=== PATIENT | male | born 1965 | race Caucasian/White ===

== ENCOUNTER 2019-04-09 12:23 | Emergency (ER) | payer MEDICARE, MEDICAID, SELFPAY ==
--- NOTE | ~2019-04-09 | XR_ITS ---
EXAMINATION: XR hip LT 2V w AP pelvis EXAM DATE: 04/09/2019 13:16 INDICATION: No known recent injury provided at this time. Pain of the chronic left hip pain. TECHNIQUE: Left hip frontal, crosstable lateral and 'frog-leg' projections for interpretation. Fronta l projection pelvis. There is no prior study for comparison. FINDINGS: Smooth left hip femoral head contour, no radiographic evidence of avascular necrosis. Ther e is moderate symmetric bilateral hip primary osteoarthritis. There are no acute fractures or disloca tions identified. There is no subcutaneous gas. The soft tissue is unremarkable. There are no rad iopaque foreign bodies. IMPRESSION: Moderate symmetric bilateral hip osteoarthritis. Reviewed, dictated and finalized at location A. 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
[2019-04-09 12:16] VITALS: BP 109/73; PULSE 80; RESP 17; TEMP 37.1; O2SAT 98
--- NOTE | 2019-04-09 12:26 | ECG_ITS ---
Measurements Intervals [place] Rate: 69 P: 37 [place]: 214 QRS: -49 QRSD: 124 T: 73 QT: 441 QTc: 475 Interpretive Statements SINUS RHYTHM WITH FIRST DEGREE AV BLOCK LEFT ANTERIOR FASCICULAR BLOCK ABNORMAL ECG Electronically Signed On 04-09-2019 18:48:17 COTTAGE MASTER by Nelson Nguyen D.O.
[2019-04-09 12:28] VITALS: BP 105/68; BP 110/71; BP 114/70; PULSE 70; PULSE 78
--- NOTE | 2019-04-09 12:30 | ED.SYNCOPE ---
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 He states that [facility] when his ears started to ring, then he felt dizzy, weak, and then had a syncopal episode. Per bystanders someone caught the pt and lowered him to the ground and report that the pt was LOC for roughly 15 seconds. He notes that he has chronic hip pain. He denies any HI, CP, SOB, fevers, chills, N/V/D, or ABD pain. MD complaint: loss of consciousness Duration of episode: 15 -: second(s) Prodromal symptoms: other (ears ringing, dizzy, and weak) Witnessed: Yes - by Bystander Context: other (walking) Injuries sustained associated with event: none Current symptoms: other (chronic hip pain) History: seizure disorder and previous syncopal episode Related Data Home Medications Medication Instructions Recorded Confirmed Depakote 04/04/19 Relax Pill 04/04/19 Topamax 04/04/19 clonidine (PF) 04/04/19 nortriptyline 04/04/19 Allergies Allergy/AdvReac Type Severity Reaction Status Date / Time No Known Allergies Allergy Unknown Unverified 02/24/19 18:36 phenobarbital AdvReac Unknown Other Verified 02/24/19 18:36 Review of Systems Review of Systems: All systems reviewed & are unremarkable except as noted in HPI and below Constitutional: Constitutional: Denies chills and Denies fever(s) ENT: Reports tinnitus (resolved) Cardiovascular: Cardiovascular: Denies chest pain Respiratory: Respiratory: Denies dyspnea Gastrointestinal: Gastrointestinal: Denies abdominal pain, Denies diarrhea, Denies nausea and Denies vomiting Musculoskeletal: Musculoskeletal: Reports other (chronic hip pain) Neurologic: Reports dizziness (resolved), Reports syncope (resolved), Reports weakness (resolved) and Denies other (HI) [facility] Past Medical History Medical History (Updated 04/10/19 @ 00:00 by Background Daemon) Anxiety (Acute) Asthma (Acute) Bronchitis (Acute) COPD (chronic obstructive pulmonary disease) (Acute) Depression (Acute) Diabetes (Acute) Epilepsy (Acute) GERD (gastroesophageal reflux disease) (Acute) GI bleed (Acute) IBS (irritable bowel syndrome) (Acute) Seizures (Acute) Sleep apnea (Acute) Surgical History Surgical History History of open reduction and internal fixation (ORIF) procedure (Acute) Hx of craniotomy (Acute) temporal lobe resection Social History Social History Smoking status: Former smoker Gender identity (if verbalized by the patient): Male Comments PCP: Dr. Tucker. Exam Narrative: Exam Narrative: GENERAL: Well-appearing, well-nourished, and in no acute distress. HEAD: Normocephalic, atraumatic EYES: PERRLA and EOMI, conjunctiva clear without discharge EARS: TM's clear bilaterally without erythema or dullness NOSE: Nares clear, no rhinorrhea or epistaxis THROAT:Mucous membranes moist, Oropharynx normal without erythema, exudate, peritonsillar swelling or fluctuance NECK: Supple, without lymphadenopathy or mass RESPIRATORY: No respiratory distress, Airway patent, Respirations non-labored, Clear to auscultation without rales, rhonchi or wheeze HEART: Regular rate and rhythm. No murmur heard. Normal peripheral pulses. ABDOMEN: Soft, nontender, nondistended, normal active bowel sounds. No masses. No rebound or guarding, No organomegaly. EXTREMITIES: No edema, normal strength with full range of motion. SKIN: Warm, dry, normal color without rash NEURO: Alert and oriented x3. CN 2-12 grossly intact. No focal deficits. PSYCH: Normal mood and affect. Course Reevaluation(s) Reevaluation #1: Patient has been resting comfortably without complain
[2019-04-09] MEDS: ONDANSETRON INJ 4 MG/2 ML VIAL IV PUSH (12:48)
[2019-04-09] MEDS: MECLIZINE HCL 25 MG TABLET PO (12:48)
[2019-04-09 12:49] LABS: Basophils Percent Auto 0.5 % (0.2-1.2); Eosinophils Absolute Auto 0.3 K/mm3 (0-0.3); Eosinophils Percent Auto 3.5 % (0-4.4); Hematocrit 51.3 % (42.0-52.0); Immature Granulocyte Absolute 0.05 K/mm3 (0.00-0.031); Immature Granulocyte Percent A 0.7 % (0-0.5); Lymphocytes Absolute Auto 3.13 K/mm3 (0.9-3.2); Mean Corpuscular Hemoglobin 30.3 pg (26-34); Mean Corpuscular Volume 94.8 fl (80-100); Mean Platelet Volume 9.6 fl (7.4-10.4); Monocytes Absolute Auto 0.5 K/mm3 (0.1-0.6); Monocytes Percent Auto 5.9 % (2.6-8.5); Neutrophils Absolute Auto 3.7 K/mm3 (1.3-6.7); Neutrophils Percent Auto 48.4 % (45.5-73.1); Platelet Count Result 154 k/mm3 (150-375); Red Blood Count 5.41 M/mm3 (4.6-6.20); Red Cell Distribution Width 11.9 % (11.5-14.5); White Blood Count 7.6 K/mm3 (4.5-10.0)
[2019-04-09 13:09] LABS: Hemoglobin 16.4 g/dL (14.0-18.0)
[2019-04-09 13:27] LABS: Blood Urea Nitrogen 13 mg/dL (9-20); Calcium 9.3 mg/dL (8.4-10.2); Carbon Dioxide 22 mmol/L (22-30); Chloride 104 mmol/L (98-107); Estimated CRCL calculation 108 ml/min; Estimated Glomerular Filt Rate > 60; Glucose 135 mg/dL (75-110); Potassium 3.8 mmol/L (3.4-5.0); Sodium 138 mmol/L (137-145)
[2019-04-09 13:43] LABS: Magnesium 2.1 mg/dL (1.6-2.3)
[2019-04-09 14:12] VITALS: BP 107/64; PULSE 88; RESP 16; O2SAT 97
== END 2019-04-09 14:14 | disposition home or self-care (01) ==
PROVIDERS: Emergency Provider General Practice; PCP Psychiatry & Neurology Neurology
DX: R55 Syncope and collapse (principal); M16.0 Bilateral primary osteoarthritis of hip; J44.9 Chronic obstructive pulmonary disease, unspecified; E11.9 Type 2 diabetes mellitus without complications; G40.909 Epilepsy, unspecified, not intractable, without status epilepticus; G47.30 Sleep apnea, unspecified; Z87.891 Personal history of nicotine dependence
CPT/HCPCS: 36415; 73502; 73521; 80048; 83735; 85025; 93005; 96374; 99284; A9270; J2405

== ENCOUNTER 2019-05-02 14:10 | Outpatient (RCR) | payer MEDICAID, SELFPAY | END 2019-05-02 23:59 | disposition home or self-care (01) | LOC: ANHAUDIO 14:10 | PROVIDERS: PCP Psychiatry & Neurology Neurology; Visit Provider Psychiatry & Neurology Neurology | DX: Z46.1 Encounter for fitting and adjustment of hearing aid (principal) | CPT/HCPCS: V5160; V5261 ==

== ENCOUNTER 2019-05-02 14:30 | Outpatient (RCR) | payer MEDICARE, MEDICAID, SELFPAY | END 2019-05-02 23:59 | disposition home or self-care (01) | LOC: ANHAUDIO 14:30 | PROVIDERS: PCP Psychiatry & Neurology Neurology; Visit Provider Internal Medicine | DX: Z46.1 Encounter for fitting and adjustment of hearing aid (principal) | CPT/HCPCS: 99199 ==

== ENCOUNTER 2019-06-11 19:11 | Emergency (ER) | payer MEDICARE, MEDICAID, SELFPAY ==
--- NOTE | 2019-06-11 19:07 | ED.SYNCOPE ---
HPI - Syncope General Chief Complaint: Syncope Stated Complaint: syncope Time Seen by Provider: 06/11/19 19:08 Source: patient Mode of arrival: EMS Limitations: no limitations History of Present Illness HPI narrative: The pt is a 54 y/o male who presents to the ED with c/o a recent seizure that occurred tonight. The pt states that he was sitting eating ice cream at a restaurant when he began to become lightheaded and stopped being able to hear. He then fell to the ground and began to seize. The event was witnessed by others at the restaurant, who reported the seizure lasting 1-2 minutes. The pt did not hit his head during the fall because bystanders helped him to the ground. The pt reports syncope and fatigue, but denies lightheadedness in the ED bed. He frequently sees Dr. Tucker and has a PMHx of seizures, blunt force trauma to the head, DM, HTN, and HLD, as well as a SHx of brain surgery. The pt notes that these sx are similar to those he had a few days ago and that this has been happening every 2-3 weels for the past 2 years. The pt came to the ED today because he was in public and the people around him called EMS. complaint: seizure Onset (ago): hour(s) (occurred tonight) -: minutes(s) (1-2) Witnessed: Yes - by Bystander Context: other (while eating) Current symptoms: other (fatigue) History: seizure disorder Related Data Home Medications Medication Instructions Recorded Confirmed Depakote 04/04/19 Relax Pill 04/04/19 Topamax 04/04/19 clonidine (PF) 04/04/19 nortriptyline 04/04/19 Allergies Allergy/AdvReac Type Severity Reaction Status Date / Time phenobarbital AdvReac Unknown Other Verified 06/11/19 19:15 Review of Systems Review of Systems: All systems reviewed & are unremarkable except as noted in HPI and below Constitutional: Constitutional: Reports fatigue and Denies other (lightheadedness) Neurologic: Reports syncope [facility] Past Medical History Medical History (Updated 06/11/19 @ 19:36 by Louann Ayala MD) Anxiety Arthritis Asthma Bronchitis COPD (chronic obstructive pulmonary disease) CVA (cerebral vascular accident) Depression Diabetes Epilepsy GERD (gastroesophageal reflux disease) GI bleed Head trauma Hyperlipidemia Hypertension IBS (irritable bowel syndrome) Seizures Sleep apnea Surgical History Surgical History History of open reduction and internal fixation (ORIF) procedure Hx of craniotomy temporal lobe resection Social History Social History Smoking status: Former smoker Gender identity (if verbalized by the patient): Male Exam Narrative: Exam Narrative: General appearance: Well-developed, well-nourished Skin: Normal color Head: Normocephalic, nontraumatic Eyes: Clear conjunctiva ENT: Oropharynx normal, ears normal, nose normal Neck: Supple, nontender Chest and respiratory: Airway patent, no respiratory distress, no accessory muscle use Heart: Regular rate/rhythm Abdomen: Soft, nontender, no organomegaly, quiet bowel sounds Vascular: Normal peripheral pulses, normal capillary refill. Musculoskeletal: Normal range of motion, nontender back Neurologic: Alert and oriented ?3, LIGHT COIL WINDER is normal as tested, no gross motor deficit Course Course Emergency Course: Resolved Consultations Consultation #1: Discussed case with Dr. Tucker, neurologist. Does not recommend running any tests and advises telling pt to follow up with him in office tomorrow. Date: 06/11/19 Time: 19:24 Vital Signs Vital signs: Vital Signs Temperature 36.8 C 06/11/19 19:15 Pulse Rate 73 06/11/19
[2019-06-11 19:15] VITALS: BP 124/71; PULSE 73; RESP 17; TEMP 36.8; O2SAT 98
== END 2019-06-11 19:40 | disposition home or self-care (01) ==
PROVIDERS: Emergency Provider Emergency Medicine; PCP Psychiatry & Neurology Neurology
DX: G40.909 Epilepsy, unspecified, not intractable, without status epilepticus (principal); F41.9 Anxiety disorder, unspecified; M19.90 Unspecified osteoarthritis, unspecified site; J44.9 Chronic obstructive pulmonary disease, unspecified; F32.9 Major depressive disorder, single episode, unspecified; K21.9 Gastro-esophageal reflux disease without esophagitis; E78.5 Hyperlipidemia, unspecified; I10 Essential (primary) hypertension; G47.30 Sleep apnea, unspecified; K58.9 Irritable bowel syndrome, unspecified; Z87.891 Personal history of nicotine dependence; Z87.820 Personal history of traumatic brain injury
CPT/HCPCS: 99281

== ENCOUNTER 2019-07-15 20:14 | Emergency (ER) | payer MEDICARE, MEDICAID, SELFPAY ==
[2019-07-15 20:17] VITALS: BP 126/67; PULSE 78; RESP 19; TEMP 36.8; O2SAT 100
--- NOTE | 2019-07-15 20:18 | ED.SYNCOPE ---
HPI - Syncope General Chief Complaint: Syncope Stated Complaint: SYNCOPAL Time Seen by Provider: 07/15/19 20:17 Source: patient and RN notes reviewed Mode of arrival: EMS Limitations: no limitations History of Present Illness HPI narrative: Pt is a 54 y/o male who presents to the ED, via EMS from [facility], with c/o a syncopal episode that occurred while sitting at [facility] about to eat dinner. Pt states that he heard a roaring and ringing sound in his ears before the syncopal episode occurred. Pt notes that he did not want to come to the ED at first, but then he began to feel lightheaded and then wanted to come to the ED for further evaluation. Pt denies having a hx of seizures. He states that Dr. Tucker took the pt off of his sz medication after his last EEG showing negative results. He states that Dr. Tucker believes he is having syncopal episodes d/t stress. Pt denies any recent medication changes. He notes that he currently feels fine. Pt denies CP, SOB, and dizziness. complaint: loss of consciousness Onset (ago): minute(s) Prodromal symptoms: other (roaring and ringing in his ears) Witnessed: Yes - by Other Context: other (at restaurant) Injuries sustained associated with event: none Current symptoms: lightheaded (resolved) History: previous syncopal episode Related Data Home Medications Medication Instructions Recorded Confirmed Depakote 04/04/19 Relax Pill 04/04/19 Topamax 04/04/19 clonidine (PF) 04/04/19 nortriptyline 04/04/19 Allergies Allergy/AdvReac Type Severity Reaction Status Date / Time phenobarbital AdvReac Unknown Other Verified 06/11/19 19:15 Review of Systems Review of Systems: All systems reviewed & are unremarkable except as noted in HPI and below Cardiovascular: Cardiovascular: Denies chest pain and Reports lightheadedness (resolved) Respiratory: Respiratory: Denies dyspnea Neurologic: Denies dizziness and Reports syncope [facility] Past Medical History Medical History (Updated 07/16/19 @ 00:00 by Background Daemon) Anxiety Arthritis Asthma Bronchitis COPD (chronic obstructive pulmonary disease) CVA (cerebral vascular accident) Depression Diabetes Epilepsy GERD (gastroesophageal reflux disease) GI bleed Head trauma Hyperlipidemia Hypertension IBS (irritable bowel syndrome) Sleep apnea Surgical History Surgical History History of open reduction and internal fixation (ORIF) procedure Hx of craniotomy temporal lobe resection Social History Social History Smoking status: Former smoker Gender identity (if verbalized by the patient): Male Exam Narrative: Exam Narrative: GENERAL: Well-appearing, well-nourished, and in no acute distress. HEAD: Normocephalic, atraumatic EYES: PERRLA and EOMI, conjunctiva clear without discharge EARS: TM's clear bilaterally without erythema or dullness NOSE: Nares clear, no rhinorrhea or epistaxis THROAT:Mucous membranes moist, Oropharynx normal without erythema, exudate, peritonsillar swelling or fluctuance NECK: Supple, without lymphadenopathy or mass RESPIRATORY: No respiratory distress, Airway patent, Respirations non-labored, Clear to auscultation without rales, rhonchi or wheeze HEART: Regular rate and rhythm. No murmur heard. Normal peripheral pulses. ABDOMEN: Soft, nontender, nondistended, normal active bowel sounds. No masses. No rebound or guarding, No organomegaly. EXTREMITIES: No edema, normal strength with full range of motion. SKIN: Warm, dry, normal color without rash NEURO: Alert and oriented x3. CN 2-12 grossly intact. No focal deficits. PSYCH: Normal mood and affect. Course Course Emergency Course: Patient has no complaints while in ER. He has history of these episodes and he is followed by specialist. He is stable for continued outpatient evaluation. Vital Signs Vital signs
--- NOTE | 2019-07-15 20:39 | ECG_ITS ---
Measurements Intervals [place] Rate: 72 P: 47 [place]: 219 QRS: -52 QRSD: 121 T: 19 QT: 405 QTc: 445 Interpretive Statements SINUS RHYTHM WITH FIRST DEGREE AV BLOCK LEFT ANTERIOR FASCICULAR BLOCK ABNORMAL ECG Electronically Signed On 07-16-2019 6:55:20 SEED ANALYST by Nelson Nguyen D.O.
[2019-07-15 20:41] VITALS: BP 112/65; BP 126/65; PULSE 72; PULSE 75
[2019-07-15 20:42] VITALS: BP 100/64; PULSE 76
[2019-07-15 20:50] VITALS: PULSE 73
[2019-07-15 21:04] LABS: Basophils Absolute Auto 0.1 K/mm3 (0.0-0.1); Basophils Percent Auto 0.6 % (0.2-1.2); Eosinophils Absolute Auto 0.3 K/mm3 (0-0.3); Eosinophils Percent Auto 4.1 % (0-4.4); Hematocrit 41.7 % (42.0-52.0); Hemoglobin 13.4 g/dL (14.0-18.0); Immature Granulocyte Absolute 0.08 K/mm3 (0.00-0.031); Lymphocytes Absolute Auto 3.99 K/mm3 (0.9-3.2); Lymphocytes Percent Auto 50.6 % (18.3-44.2); Mean Corpuscular HGB Conc 32.1 g/dl (32-36); Mean Corpuscular Hemoglobin 30.8 pg (26-34); Mean Corpuscular Volume 95.9 fl (80-100); Mean Platelet Volume 9.6 fl (7.4-10.4); Monocytes Absolute Auto 0.6 K/mm3 (0.1-0.6); Neutrophils Absolute Auto 2.8 K/mm3 (1.3-6.7); Neutrophils Percent Auto 35.7 % (45.5-73.1); Platelet Count Result 184 k/mm3 (150-375); Red Blood Count 4.35 M/mm3 (4.6-6.20); Red Cell Distribution Width 15.1 % (11.5-14.5); White Blood Count 7.9 K/mm3 (4.5-10.0)
[2019-07-15 21:15] VITALS: BP 110/69; PULSE 73; RESP 12; O2SAT 100
[2019-07-15 21:18] LABS: Blood Urea Nitrogen 18 mg/dL (9-20); Carbon Dioxide 22 mmol/L (22-30); Chloride 108 mmol/L (98-107); Estimated CRCL calculation 88 ml/min; Estimated Glomerular Filt Rate > 60; Glucose 104 mg/dL (75-110); Potassium 3.7 mmol/L (3.4-5.0); Sodium 140 mmol/L (137-145)
== END 2019-07-15 21:35 | disposition home or self-care (01) ==
PROVIDERS: Emergency Provider General Practice; PCP Psychiatry & Neurology Neurology
DX: R55 Syncope and collapse (principal); M19.90 Unspecified osteoarthritis, unspecified site; J44.9 Chronic obstructive pulmonary disease, unspecified; F32.9 Major depressive disorder, single episode, unspecified; F41.9 Anxiety disorder, unspecified; Z86.73 Personal history of transient ischemic attack (TIA), and cerebral infarction without residual deficits; E11.9 Type 2 diabetes mellitus without complications; G40.909 Epilepsy, unspecified, not intractable, without status epilepticus; K21.9 Gastro-esophageal reflux disease without esophagitis; E78.5 Hyperlipidemia, unspecified; I10 Essential (primary) hypertension; K58.9 Irritable bowel syndrome, unspecified; G47.30 Sleep apnea, unspecified; Z87.891 Personal history of nicotine dependence; I44.0 Atrioventricular block, first degree; I44.4 Left anterior fascicular block
CPT/HCPCS: 36415; 80048; 85025; 93005; 99284

== ENCOUNTER 2019-07-22 18:14 | Emergency (ER) | payer MEDICARE, MEDICAID, SELFPAY ==
[2019-07-22 18:46] VITALS: BP 118/68; PULSE 82; RESP 16; TEMP 36.1; O2SAT 100
--- NOTE | 2019-07-22 18:51 | ECG_ITS ---
Measurements Intervals [place] Rate: 73 P: 50 [place]: 223 QRS: -51 QRSD: 126 T: 34 QT: 403 QTc: 446 Interpretive Statements SINUS RHYTHM WITH FIRST DEGREE AV BLOCK LEFT ANTERIOR FASCICULAR BLOCK ABNORMAL ECG Electronically Signed On 07-23-2019 6:59:26 CDT by Nelson Nguyen D.O.
[2019-07-22 19:07] LABS: Basophils Percent Auto 0.4 % (0.2-1.2); Eosinophils Absolute Auto 0.3 K/mm3 (0-0.3); Eosinophils Percent Auto 3.9 % (0-4.4); Hematocrit 41.4 % (42.0-52.0); Immature Granulocyte Absolute 0.06 K/mm3 (0.00-0.031); Immature Granulocyte Percent A 0.8 % (0-0.5); Lymphocytes Absolute Auto 3.22 K/mm3 (0.9-3.2); Mean Corpuscular HGB Conc 31.4 g/dl (32-36); Mean Corpuscular Hemoglobin 30.6 pg (26-34); Mean Corpuscular Volume 97.4 fl (80-100); Mean Platelet Volume 9.4 fl (7.4-10.4); Monocytes Absolute Auto 0.6 K/mm3 (0.1-0.6); Monocytes Percent Auto 7.4 % (2.6-8.5); Neutrophils Absolute Auto 3.7 K/mm3 (1.3-6.7); Neutrophils Percent Auto 46.5 % (45.5-73.1); Platelet Count Result 181 k/mm3 (150-375); Red Blood Count 4.25 M/mm3 (4.6-6.20); Red Cell Distribution Width 15.1 % (11.5-14.5); White Blood Count 7.9 K/mm3 (4.5-10.0)
[2019-07-22 19:18] LABS: Blood Urea Nitrogen 13 mg/dL (9-20); Calcium 8.9 mg/dL (8.4-10.2); Carbon Dioxide 24 mmol/L (22-30); Chloride 104 mmol/L (98-107); Estimated CRCL calculation 89 ml/min; Estimated Glomerular Filt Rate > 60; Glucose 108 mg/dL (75-110); Potassium 4.2 mmol/L (3.4-5.0); Sodium 138 mmol/L (137-145)
[2019-07-22 21:28] VITALS: BP 113/76; PULSE 75; RESP 18; O2SAT 99
[2019-07-22 21:31] VITALS: BP 111/67; PULSE 76
--- NOTE | 2019-07-22 21:32 | ED.SYNCOPE ---
HPI - Syncope General Chief Complaint: Syncope Stated Complaint: SYNCOPE Time Seen by Provider: 07/22/19 20:58 Source: patient, family and RN notes reviewed Mode of arrival: EMS Limitations: no limitations History of Present Illness HPI narrative: Pt is a 54 y/o male with a Hx of seizures, who presents to the ED with c/o syncopal episode happening this evening. According to old records, the pt has been evaluated in the [place] ED on a multitude of occasions for similar episodes, with most occurring while the pt is eating at a restaurant. He notes that he has been evaluated by multiple neurologists in the past for these episodes, and states that Dr. Tucker recently began tapering him off of his Depakote. Pt states that he was eating at a diner this evening when he suddenly developed a whirling sensation in ears. He notes that he then became lightheaded and passed out. Pt's family states that she was able to call over several individuals to help the pt gently down to the floor. She denies the pt having any injuries during the episode. MD complaint: loss of consciousness Prodromal symptoms: lightheaded and other ( whirling sensation in ears) Context: at rest Injuries sustained associated with event: none Current symptoms: none History: previous syncopal episode Related Data Home Medications Medication Instructions Recorded Confirmed Depakote 04/04/19 Relax Pill 04/04/19 Topamax 04/04/19 clonidine (PF) 04/04/19 nortriptyline 04/04/19 Allergies Allergy/AdvReac Type Severity Reaction Status Date / Time phenobarbital AdvReac Unknown Other Verified 06/11/19 19:15 Review of Systems Review of Systems: All systems reviewed & are unremarkable except as noted in HPI and below ENT: Reports other ( whirling sensation in ears) Neurologic: Reports syncope and Reports other (lightheadedness) [facility] Past Medical History Medical History Anxiety Arthritis Asthma Bronchitis COPD (chronic obstructive pulmonary disease) CVA (cerebral vascular accident) Depression Diabetes Epilepsy GERD (gastroesophageal reflux disease) GI bleed Head trauma Hyperlipidemia Hypertension IBS (irritable bowel syndrome) Sleep apnea Surgical History Surgical History History of open reduction and internal fixation (ORIF) procedure Hx of craniotomy temporal lobe resection Social History Social History Smoking status: Former smoker Gender identity (if verbalized by the patient): Male Exam Narrative: Exam Narrative: GENERAL: Well-appearing, well-nourished, and in no acute distress. HEAD: Normocephalic, atraumatic. ENT: Mucous membranes moist. CHEST: Clear to auscultation. No respiratory distress. HEART: Regular rate and rhythm. Normal peripheral pulses. ABDOMEN: Soft, nontender, nondistended EXTREMITIES: Normal range of motion. Venous stasis changes BLE. NEURO: No focal deficits. Alert and oriented x3. PSYCH: Normal mood and affect. Course Course Emergency Course: Patient was alert and oriented x3 without focal neurologic deficit. Ambulatory without issue and asymptomatic during orthostatic vital signs. Discharge home. Vital Signs Vital signs: Vital Signs Temperature 96.9 F L 07/22/19 18:46 Pulse Rate 82 07/22/19 18:46 Respiratory Rate 16 07/22/19 18:46 Blood Pressure 118/68 07/22/19 18:46 Pulse Oximetry 100 07/22/19 18:46 Temperature 96.9 F L 07/22/19 18:46 Pulse Rate 76 07/22/19 21:35 Respiratory Rate 18 07/22/19 21:28 Blood Pressure 107/71 07/22/19 21:35 Pulse Oximetry 99 07/22/19 21:28 MDM - Syncope Lab Data Result diagrams: 07/22/19 18:56 07/22/19 18:56 Labs: Lab Results 07/22/19 07/22/19 Range/Units 18:56 18:56 WBC 7.9 (4.5-10.0) K/mm3 RBC 4.25 L (4.6-6.20) M/mm3 Hgb 13.0 L (14
[2019-07-22 21:34] VITALS: BP 136/84; PULSE 79
[2019-07-22 21:35] VITALS: BP 107/71; PULSE 76
== END 2019-07-22 22:05 | disposition home or self-care (01) ==
PROVIDERS: Emergency Medicine; Emergency Provider Emergency Medicine; PCP Internal Medicine
DX: G40.909 Epilepsy, unspecified, not intractable, without status epilepticus (principal); J44.9 Chronic obstructive pulmonary disease, unspecified; Z86.73 Personal history of transient ischemic attack (TIA), and cerebral infarction without residual deficits; E11.9 Type 2 diabetes mellitus without complications; K21.9 Gastro-esophageal reflux disease without esophagitis; E78.5 Hyperlipidemia, unspecified; I10 Essential (primary) hypertension; G47.30 Sleep apnea, unspecified; F41.9 Anxiety disorder, unspecified; M19.90 Unspecified osteoarthritis, unspecified site; Z87.891 Personal history of nicotine dependence
CPT/HCPCS: 36415; 80048; 85025; 93005; 99284

== ENCOUNTER 2019-11-05 15:09 | Emergency (ER) | payer MEDICARE, MEDICAID, SELFPAY ==
[2019-11-05] VITALS (7 sets, daily range): BP systolic 107–123; BP diastolic 60–79; PULSE 70–73; RESP 20; TEMP 36.7; O2SAT 98–100
--- NOTE | 2019-11-05 15:29 | ED.SYNCOPE ---
HPI - Syncope General Chief Complaint: Syncope Stated Complaint: SYNCOPE Time Seen by Provider: 11/05/19 15:27 History of Present Illness HPI narrative: Syncopal episode today while walking. He reports that he was walking and he remembers getting light headed. Then his vision got blurry. He fell to the ground. It is unclear if he ever lost consciousness. He denies hitting his head. He has had multiple previous presentations for syncope and seizure like events. Related Data Home Medications Medication Instructions Recorded Confirmed Topamax 700 mg PO DAILY 04/04/19 divalproex [Depakote] 500 mg PO Q12H 04/04/19 11/05/19 nortriptyline 75 mg PO BID 04/04/19 albuterol sulfate 2 inh INHALATION Q4H PRN 11/05/19 11/05/19 aspirin 81 mg PO DAILY 11/05/19 11/05/19 atorvastatin 10 mg PO HS 11/05/19 11/05/19 citalopram 40 mg PO DAILY 11/05/19 11/05/19 enalapril maleate 5 mg PO DAILY 11/05/19 11/05/19 fenofibrate 160 mg PO DAILY 11/05/19 11/05/19 fluticasone propion-salmeterol 1 inh INHALATION BID 11/05/19 11/05/19 [Advair Diskus] Allergies Allergy/AdvReac Type Severity Reaction Status Date / Time phenobarbital AdvReac Unknown Other Verified 11/05/19 15:24 Review of Systems Review of Systems: All systems reviewed & are unremarkable except as noted in HPI and below Constitutional: Constitutional: Denies fever(s) ENT: Comments: tinnitus Cardiovascular: Cardiovascular: Denies chest pain Respiratory: Respiratory: Denies dyspnea Gastrointestinal: Gastrointestinal: Reports nausea Musculoskeletal: Musculoskeletal: Denies back pain Neurologic: Reports dizziness, Reports syncope, Reports numbness and Reports weakness PMF Past Medical History Medical History Anxiety Arthritis Asthma Bronchitis COPD (chronic obstructive pulmonary disease) CVA (cerebral vascular accident) Depression Diabetes Epilepsy GERD (gastroesophageal reflux disease) GI bleed Head trauma Hyperlipidemia Hypertension IBS (irritable bowel syndrome) Sleep apnea Surgical History Surgical History History of open reduction and internal fixation (ORIF) procedure Hx of craniotomy temporal lobe resection Social History Social History Smoking status: Former smoker Gender identity (if verbalized by the patient): Male Exam Const: General: no acute distress and alert Nutritional Appearance: obese Orientation/consciousness: patient oriented x3 HENMT: Head: normal to inspection Neck: Neck: normal visual inspection and no lymphadenopathy Chest: Chest palpation & inspection: no tenderness Resp: Effort & Inspection: normal respiratory effort Auscultation: clear to auscultation bilaterally, no rales, no rhonchi and no wheezes Cardio: Jugular venous distension: no JVD Rate: regular rate Rhythm: regular rhythm Heart sounds: no murmurs GI: Inspection: non-distended GI Palp: Yes Soft to palpation and No Tenderness to palpation present (GI) Skin: General skin exam: normal color Other: minor abrasion to right knee Neuro: General: patient oriented x3 and moves all extremities Speech: normal speech Extrem: General: no edema Psych: Appearance: well kempt Affect: normal affect Course Vital Signs Vital signs: Vital Signs Temperature 36.7 C 11/05/19 15:11 Pulse Rate 73 11/05/19 15:11 Respiratory Rate 20 11/05/19 15:11 Blood Pressure 115/66 11/05/19 15:11 Pulse Oximetry 100 11/05/19 15:11 Temperature 36.7 C 11/05/19 15:11 Pulse Rate 70 11/05/19 17:41 Respiratory Rate 20 11/05/19 16:41 Blood Pressure 109/61 11/05/19 17:41 Pulse Oximetry 98 11/05/19 16:41 MDM - Syncope Differential Diagnosis Differential diagnosis: Likely syncope due to orthostatic hypotension and dehydration Medical Records Attestation: I reviewed the pa
--- NOTE | 2019-11-05 15:36 | ECG_ITS ---
Measurements Intervals [place] Rate: 73 P: 55 [place]: 215 QRS: -69 QRSD: 122 T: 49 QT: 442 QTc: 488 Interpretive Statements SINUS RHYTHM WITH FIRST DEGREE AV BLOCK INCOMPLETE RIGHT BUNDLE BRANCH BLOCK LEFT ANTERIOR FASCICULAR BLOCK BORDERLINE T WAVE ABNORMALITY- ANTERIOR LEADS ABNORMAL ECG Electronically Signed On 11-05-2019 15:58:20 CDT by Nelson Nguyen D.O.
[2019-11-05 15:45] LABS: Basophils Percent Auto 0.5 % (0.2-1.2); Eosinophils Absolute Auto 0.2 K/mm3 (0-0.3); Eosinophils Percent Auto 3.2 % (0-4.4); Hematocrit 42.7 % (42.0-52.0); Immature Granulocyte Absolute 0.11 K/mm3 (0.00-0.031); Immature Granulocyte Percent A 1.8 % (0-0.5); Lymphocytes Absolute Auto 2.91 K/mm3 (0.9-3.2); Lymphocytes Percent Auto 46.4 % (18.3-44.2); Mean Corpuscular HGB Conc 32.8 g/dl (32-36); Mean Corpuscular Hemoglobin 31.2 pg (26-34); Mean Corpuscular Volume 95.1 fl (80-100); Mean Platelet Volume 9.4 fl (7.4-10.4); Monocytes Absolute Auto 0.6 K/mm3 (0.1-0.6); Monocytes Percent Auto 9.4 % (2.6-8.5); Neutrophils Absolute Auto 2.4 K/mm3 (1.3-6.7); Neutrophils Percent Auto 38.7 % (45.5-73.1); Platelet Count Result 185 k/mm3 (150-375); Red Blood Count 4.49 M/mm3 (4.6-6.20); Red Cell Distribution Width 13.9 % (11.5-14.5); White Blood Count 6.3 K/mm3 (4.5-10.0)
[2019-11-05 15:56] LABS: Blood Urea Nitrogen 16 mg/dL (9-20); Calcium 8.9 mg/dL (8.4-10.2); Carbon Dioxide 21 mmol/L (22-30); Chloride 104 mmol/L (98-107); Estimated CRCL calculation 99 ml/min; Estimated Glomerular Filt Rate > 60; Glucose 122 mg/dL (75-110); Potassium 3.7 mmol/L (3.4-5.0); Sodium 136 mmol/L (137-145)
[2019-11-05] MEDS: SODIUM CHLORIDE 0.9% IV 1,000 ML 999 ML IV CONT (16:41)
== END 2019-11-05 18:25 | disposition home or self-care (01) ==
PROVIDERS: Emergency Provider Emergency Medicine; PCP Internal Medicine
DX: R55 Syncope and collapse (principal); F41.9 Anxiety disorder, unspecified; M19.90 Unspecified osteoarthritis, unspecified site; J44.9 Chronic obstructive pulmonary disease, unspecified; F32.9 Major depressive disorder, single episode, unspecified; E11.9 Type 2 diabetes mellitus without complications; K21.9 Gastro-esophageal reflux disease without esophagitis; E78.5 Hyperlipidemia, unspecified; I10 Essential (primary) hypertension; G47.39 Other sleep apnea
CPT/HCPCS: 36415; 80048; 85025; 93005; 96360; 99283; J7030

== ENCOUNTER 2019-11-10 10:39 | Outpatient (RCR) | payer MEDICAID, SELFPAY | END 2019-11-10 23:59 | disposition home or self-care (01) | LOC: ANHAUDIO 10:39 | PROVIDERS: PCP Internal Medicine; Visit Provider Internal Medicine | DX: Z46.1 Encounter for fitting and adjustment of hearing aid (principal) | CPT/HCPCS: 99199 ==

== ENCOUNTER 2020-01-03 23:08 | Emergency (ER) | payer MEDICARE, MEDICAID, SELFPAY ==
--- NOTE | ~2020-01-03 | XR_ITS ---
EXAMINATION: XR chest 2V DATE: 01/03/2020 23:47 INDICATION: Transient alteration of awareness, hypertension TECHNIQUE: PA and lateral views of the chest are obtained. COMPARISON: 04/04/2019 FINDINGS: The lungs are free of acute opacities. There is no pleural effusion or pneumothorax. The ca rdiomediastinal silhouette is normal. A cardiac monitoring device is implanted in the left anterior c hest wall. There is mild thoracic spondylosis. IMPRESSION: 1. No acute cardiopulmonary abnormality. Reviewed, dictated and finalized at location A.
--- NOTE | 2020-01-03 22:13 | ECG_ITS ---
Measurements Intervals [place] Rate: 76 P: 45 [place]: 216 QRS: -69 QRSD: 126 T: 9 QT: 427 QTc: 481 Interpretive Statements SINUS RHYTHM WITH FIRST DEGREE AV BLOCK INCOMPLETE RIGHT BUNDLE BRANCH BLOCK LEFT ANTERIOR FASCICULAR BLOCK BASELINE ARTIFACT- V1-V3 ABNORMAL ECG Electronically Signed On 01-12-2020 17:45:49 CDT by Nelson Nguyen D.O.
[2020-01-03 23:07] VITALS: BP 111/59; PULSE 78; RESP 17; TEMP 36.3; O2SAT 100
[2020-01-03 23:51] LABS: Basophils Percent Auto 0.5 % (0.2-1.2); Eosinophils Absolute Auto 0.2 K/mm3 (0-0.3); Eosinophils Percent Auto 3.4 % (0-4.4); Hematocrit 40.9 % (42.0-52.0); Hemoglobin 13.4 g/dL (14.0-18.0); Immature Granulocyte Absolute 0.06 K/mm3 (0.00-0.031); Immature Granulocyte Percent A 0.9 % (0-0.5); Lymphocytes Absolute Auto 2.86 K/mm3 (0.9-3.2); Lymphocytes Percent Auto 43.7 % (18.3-44.2); Mean Corpuscular HGB Conc 32.8 g/dl (32-36); Mean Corpuscular Hemoglobin 31.4 pg (26-34); Mean Corpuscular Volume 95.8 fl (80-100); Mean Platelet Volume 9.4 fl (7.4-10.4); Monocytes Absolute Auto 0.7 K/mm3 (0.1-0.6); Monocytes Percent Auto 10.7 % (2.6-8.5); Neutrophils Absolute Auto 2.7 K/mm3 (1.3-6.7); Neutrophils Percent Auto 40.8 % (45.5-73.1); Platelet Count Result 172 k/mm3 (150-375); Red Blood Count 4.27 M/mm3 (4.6-6.20); Red Cell Distribution Width 13.2 % (11.5-14.5); White Blood Count 6.6 K/mm3 (4.5-10.0)
[2020-01-04 00:16] VITALS: BP 99/67; PULSE 79; RESP 19; O2SAT 100
[2020-01-04 00:16] LABS: Anion Gap 10 mmol/L (8-16); Blood Urea Nitrogen 15 mg/dL (9-20); Calcium 8.9 mg/dL (8.4-10.2); Carbon Dioxide 21 mmol/L (22-30); Chloride 108 mmol/L (98-107); Estimated CRCL calculation 89 ml/min; Estimated Glomerular Filt Rate > 60; Glucose 105 mg/dL (75-110); Potassium 3.6 mmol/L (3.4-5.0); Sodium 139 mmol/L (137-145)
--- NOTE | 2020-01-04 00:27 | ED.GENADULT ---
HPI - General Adult General Chief complaint: Syncope Stated complaint: syncope History of Present Illness HPI narrative: Patient is a 54-year-old male who presents ER with syncope versus seizure activity. Patient was at a local [employer] and had paid when he lost consciousness. Patient has long history of this occurring while going to restaurants and ending up in the ER. Patient does have history of seizure disorder though he denies having a seizure disorder. He is seen Dr. Tucker and takes Depakote as well as Topamax and nortriptyline. Related Data Home Medications Medication Instructions Recorded Confirmed Topamax 700 mg PO DAILY 04/04/19 divalproex [Depakote] 500 mg PO Q12H 04/04/19 11/05/19 nortriptyline 75 mg PO BID 04/04/19 albuterol sulfate 2 inh INHALATION Q4H PRN 11/05/19 11/05/19 aspirin 81 mg PO DAILY 11/05/19 11/05/19 atorvastatin 10 mg PO HS 11/05/19 11/05/19 citalopram 40 mg PO DAILY 11/05/19 11/05/19 enalapril maleate 5 mg PO DAILY 11/05/19 11/05/19 fenofibrate 160 mg PO DAILY 11/05/19 11/05/19 fluticasone propion-salmeterol 1 inh INHALATION BID 11/05/19 11/05/19 [Advair Diskus] Allergies Allergy/AdvReac Type Severity Reaction Status Date / Time phenobarbital AdvReac Unknown Other Verified 11/05/19 15:24 Review of Systems Review of Systems: All systems reviewed & are unremarkable except as noted in HPI and below Constitutional: Constitutional: Denies chills, Denies fever(s) and Denies weakness ENT: Denies nasal congestion and Denies sore throat Cardiovascular: Cardiovascular: Denies chest pain and Denies rapid heart rate Respiratory: Respiratory: Denies cough and Denies dyspnea Gastrointestinal: Gastrointestinal: Denies abdominal pain, Denies diarrhea and Denies nausea Neurologic: Reports syncope, Denies headache(s), Denies focal weakness and Denies numbness PMFSH Social History Social History Smoking status: Former smoker Gender identity (if verbalized by the patient): Male Exam Narrative: Exam Narrative: GENERAL: Well-appearing, well-nourished, and in no acute distress. HEAD: Normocephalic, atraumatic. EYES: PERRL and EOMI. ENT: Mucous membranes moist. CHEST: Clear to auscultation. No respiratory distress. HEART: Regular rate and rhythm. Normal peripheral pulses. ABDOMEN: Soft, nontender, nondistended. EXTREMITIES: Normal range of motion. No edema. SKIN: Warm, dry, no rash. NEURO: No focal deficits. Alert and oriented x3. Course Course Emergency Course: Patient resting comfortably. Unremarkable lab work. Discharge home. Vital Signs Vital signs: Vital Signs Temperature 97.3 F L 01/03/20 23:07 Pulse Rate 78 01/03/20 23:07 Respiratory Rate 17 01/03/20 23:07 Blood Pressure 111/59 L 01/03/20 23:07 Pulse Oximetry 100 01/03/20 23:07 Temperature 97.3 F L 01/03/20 23:07 Pulse Rate 79 01/04/20 00:16 Respiratory Rate 19 01/04/20 00:16 Blood Pressure 99/67 L 01/04/20 00:16 Pulse Oximetry 100 01/04/20 00:16 Medical Decision Making Vital Signs Vital Signs: Vital Signs Temperature 97.3 F L 01/03/20 23:07 Pulse Rate 78 01/03/20 23:07 Respiratory Rate 17 01/03/20 23:07 Blood Pressure 111/59 L 01/03/20 23:07 Pulse Oximetry 100 01/03/20 23:07 Temperature 97.3 F L 01/03/20 23:07 Pulse Rate 79 01/04/20 00:16 Respiratory Rate 19 01/04/20 00:16 Blood Pressure 99/67 L 01/04/20 00:16 Pulse Oximetry 100 01/04/20 00:16 Lab Data Result diagrams: 01/03/20 23:43 01/03/20 23:43 Labs: Lab Results 01/03/20 01/03/20 Range/Units 23:43 23:43 WBC 6.6 (4.5-10.0) K/mm3 RBC 4.27 L (4.6-6.20) M/mm3 Hgb 13.4 L (14.0-18.0) g/dL Hct 40.9 L (42.0-52.0) % MCV 95.8 (80-100) fl MCH 31.4 (26-34) pg MCHC 32.8 (32-36) g/dl RDW 13.2 (11.5-14.5) % Plt Count 172 (150-375) k/mm3 MPV 9.4 (7.4-10.4) fl Immat
[2020-01-04 00:30] VITALS: BP 112/74; BP 116/71; PULSE 72; PULSE 73
[2020-01-04 00:32] VITALS: BP 108/69; PULSE 72
[2020-01-04 00:52] VITALS: BP 105/78; PULSE 79; RESP 19; TEMP 36.3; O2SAT 100
== END 2020-01-04 00:53 | disposition home or self-care (01) ==
PROVIDERS: Emergency Provider Emergency Medicine; PCP Internal Medicine
DX: R55 Syncope and collapse (principal); Z87.891 Personal history of nicotine dependence; G40.909 Epilepsy, unspecified, not intractable, without status epilepticus
CPT/HCPCS: 36415; 71046; 80048; 85025; 93005; 99283

== ENCOUNTER 2020-03-13 14:30 | Emergency (ER) | payer MEDICARE, MEDICAID, SELFPAY ==
[2020-03-13 14:34] VITALS: BP 111/69; PULSE 70; RESP 13; TEMP 36.7; O2SAT 99
[2020-03-13 14:42] LABS: Glucose Point of Care 101 (65-105)
--- NOTE | 2020-03-13 14:49 | ED.DIZZY ---
HPI - Dizziness General Chief Complaint: Dizziness Stated Complaint: syncopal episode Time Seen by Provider: 03/13/20 14:33 History of Present Illness HPI Narrative: 55 yo male w/ h/o syncope and seizure presents to the ED for dizziness. He was at a restaurant this afternoon and shortly after ordering he became dizzy. bystanders helped him to the ground. He did not lose consciousness. He has been here numerous times for very similar episodes, virtually always at restaurants usually after eating. Related Data Home Medications Medication Instructions Recorded Confirmed Topamax 700 mg PO DAILY 04/04/19 divalproex [Depakote] 500 mg PO Q12H 04/04/19 11/05/19 nortriptyline 75 mg PO BID 04/04/19 albuterol sulfate 2 inh INHALATION Q4H PRN 11/05/19 11/05/19 aspirin 81 mg PO DAILY 11/05/19 11/05/19 atorvastatin 10 mg PO HS 11/05/19 11/05/19 citalopram 40 mg PO DAILY 11/05/19 11/05/19 enalapril maleate 5 mg PO DAILY 11/05/19 11/05/19 fenofibrate 160 mg PO DAILY 11/05/19 11/05/19 fluticasone propion-salmeterol 1 inh INHALATION BID 11/05/19 11/05/19 [Advair Diskus] Allergies Allergy/AdvReac Type Severity Reaction Status Date / Time phenobarbital AdvReac Unknown Other Verified 03/25/20 17:03 Review of Systems Review of Systems: All systems reviewed & are unremarkable except as noted in HPI and below Constitutional: Constitutional: Denies fever(s) Cardiovascular: Cardiovascular: Denies chest pain Respiratory: Respiratory: Denies dyspnea Gastrointestinal: Gastrointestinal: Denies abdominal pain Neurologic: Reports dizziness and Denies syncope [facility] Past Medical History Medical History Anxiety Arthritis Asthma Bronchitis COPD (chronic obstructive pulmonary disease) CVA (cerebral vascular accident) Depression Diabetes Epilepsy GERD (gastroesophageal reflux disease) GI bleed Head trauma Hyperlipidemia Hypertension IBS (irritable bowel syndrome) Sleep apnea Surgical History Surgical History History of open reduction and internal fixation (ORIF) procedure Hx of craniotomy temporal lobe resection Social History Social History Smoking status: Former smoker Gender identity (if verbalized by the patient): Male Exam Const: General: no acute distress and alert Nutritional Appearance: obese Orientation/consciousness: patient oriented x3 HENMT: Head: normal to inspection Neck: Neck: normal visual inspection and no lymphadenopathy Resp: Effort & Inspection: normal respiratory effort Auscultation: clear to auscultation bilaterally, no rales, no rhonchi and no wheezes Cardio: Jugular venous distension: no JVD Rate: regular rate Rhythm: regular rhythm Heart sounds: no murmurs GI: GI Palp: Yes Soft to palpation and No Tenderness to palpation present (GI) Skin: General skin exam: normal color Neuro: General: patient oriented x3 and moves all extremities Speech: normal speech Gait exam (Neuro): Normal gait present Extrem: General: no edema Psych: Appearance: well kempt Affect: normal affect Course Vital Signs Vital signs: Vital Signs Temperature 36.7 C 03/13/20 14:34 Pulse Rate 70 03/13/20 14:34 Respiratory Rate 13 03/13/20 14:34 Blood Pressure 111/69 03/13/20 14:34 Pulse Oximetry 99 03/13/20 14:34 Temperature 36.3 C L 03/13/20 17:20 Pulse Rate 69 03/13/20 17:20 Respiratory Rate 17 03/13/20 17:20 Blood Pressure 111/68 03/13/20 17:20 Pulse Oximetry 100 03/13/20 17:20 MDM - Dizziness MDM Narrative Medical decision making narrative: near syncope Medical Records Attestation: I reviewed the patient's medical records. Lab Data Attestation: I reviewed the patient's lab results. Labs: Lab Results 03/13/20 Range/Units 14:38 POC Capillary Glucose 101 (65-105) mg/dl Di
--- NOTE | 2020-03-13 15:38 | ECG_ITS ---
Measurements Intervals [place] Rate: 72 P: 54 [place]: 220 QRS: -41 QRSD: 130 T: 29 QT: 447 QTc: 490 Interpretive Statements SINUS RHYTHM WITH FIRST DEGREE AV BLOCK LEFT AXIS DEVIATION RSR' IN V1 OR V2, CONSIDER RIGHT VENTRICULAR HYPERTROPHY OR RIGHT VCD POOR R WAVE PROGRESSION, ANTERIOR LEADS CONSIDER INFERIOR INFARCT, AGE INDETERMINATE BORDERLINE T WAVE ABNORMALITY- ANTERIOR LEADS BASELINE ARTIFACT- V3 ABNORMAL ECG Electronically Signed On 03-13-2020 18:08:33 CDT by Nelson Nguyen D.O.
[2020-03-13 16:12] VITALS: BP 111/64; PULSE 73
[2020-03-13 16:14] VITALS: BP 115/79; PULSE 76
[2020-03-13 16:15] VITALS: BP 100/68; PULSE 73
[2020-03-13 17:20] VITALS: BP 111/68; PULSE 69; RESP 17; TEMP 36.3; O2SAT 100
== END 2020-03-13 17:30 | disposition home or self-care (01) ==
PROVIDERS: Emergency Provider Emergency Medicine; PCP Internal Medicine
DX: R55 Syncope and collapse (principal); M19.90 Unspecified osteoarthritis, unspecified site; J44.9 Chronic obstructive pulmonary disease, unspecified; Z86.73 Personal history of transient ischemic attack (TIA), and cerebral infarction without residual deficits; E11.9 Type 2 diabetes mellitus without complications; G40.909 Epilepsy, unspecified, not intractable, without status epilepticus; K21.9 Gastro-esophageal reflux disease without esophagitis; E78.5 Hyperlipidemia, unspecified; I10 Essential (primary) hypertension; K58.9 Irritable bowel syndrome, unspecified; G47.30 Sleep apnea, unspecified; F41.9 Anxiety disorder, unspecified; F32.9 Major depressive disorder, single episode, unspecified; Z87.891 Personal history of nicotine dependence; Z79.82 Long term (current) use of aspirin; I44.0 Atrioventricular block, first degree; R94.31 Abnormal electrocardiogram [ECG] [EKG]
CPT/HCPCS: 82948; 93005; 99283

== ENCOUNTER 2020-03-25 16:14 | Emergency (ER) | payer MEDICARE, MEDICAID, SELFPAY ==
[2020-03-25 16:55] VITALS: PULSE 76; RESP 16; TEMP 36.2; O2SAT 100
--- NOTE | 2020-03-25 17:02 | ECG_ITS ---
Measurements Intervals [place] Rate: 76 P: 52 [place]: 226 QRS: -74 QRSD: 122 T: 31 QT: 421 QTc: 474 Interpretive Statements SINUS RHYTHM WITH FIRST DEGREE AV BLOCK LEFT ANTERIOR FASCICULAR BLOCK ABNORMAL ECG Electronically Signed On 03-26-2020 9:00:44 ELECTRICIAN APPRENTICE by Nelson Nguyen D.O.
[2020-03-25 17:17] LABS: Basophils Percent Auto 0.5 % (0.2-1.2); Eosinophils Absolute Auto 0.2 K/mm3 (0-0.3); Eosinophils Percent Auto 3.4 % (0-4.4); Hematocrit 41.2 % (42.0-52.0); Hemoglobin 13.4 g/dL (14.0-18.0); Immature Granulocyte Absolute 0.06 K/mm3 (0.00-0.031); Lymphocytes Absolute Auto 2.81 K/mm3 (0.9-3.2); Lymphocytes Percent Auto 46.1 % (18.3-44.2); Mean Corpuscular HGB Conc 32.5 g/dl (32-36); Mean Corpuscular Hemoglobin 31.4 pg (26-34); Mean Corpuscular Volume 96.5 fl (80-100); Mean Platelet Volume 9.6 fl (7.4-10.4); Monocytes Absolute Auto 0.4 K/mm3 (0.1-0.6); Monocytes Percent Auto 5.9 % (2.6-8.5); Neutrophils Absolute Auto 2.6 K/mm3 (1.3-6.7); Neutrophils Percent Auto 43.1 % (45.5-73.1); Platelet Count Result 170 k/mm3 (150-375); Red Blood Count 4.27 M/mm3 (4.6-6.20); Red Cell Distribution Width 13.3 % (11.5-14.5); White Blood Count 6.1 K/mm3 (4.5-10.0)
[2020-03-25 18:41] VITALS: BP 121/71; PULSE 71; RESP 17; O2SAT 100
--- NOTE | 2020-03-25 19:50 | ED.SYNCOPE ---
HPI - Syncope General Chief Complaint: Syncope Stated Complaint: syncopal episode Time Seen by Provider: 03/25/20 18:16 History of Present Illness HPI narrative: Patient is a 55-year-old gentleman well-known to the emergency department that presents the emergency department with chief complaint of syncope. The patient usually has syncopal episodes after he is eating in a restaurant and ends up in the emergency department. Patient states currently he feels back to normal and states that he is to follow-up with his neurologist. Patient denies chest pain denies shortness of breath patient reports symptoms are not worsened by anything or they improve by anything Related Data Home Medications Medication Instructions Recorded Confirmed Topamax 700 mg PO DAILY 04/04/19 divalproex [Depakote] 500 mg PO Q12H 04/04/19 11/05/19 nortriptyline 75 mg PO BID 04/04/19 albuterol sulfate 2 inh INHALATION Q4H PRN 11/05/19 11/05/19 aspirin 81 mg PO DAILY 11/05/19 11/05/19 atorvastatin 10 mg PO HS 11/05/19 11/05/19 citalopram 40 mg PO DAILY 11/05/19 11/05/19 enalapril maleate 5 mg PO DAILY 11/05/19 11/05/19 fenofibrate 160 mg PO DAILY 11/05/19 11/05/19 fluticasone propion-salmeterol 1 inh INHALATION BID 11/05/19 11/05/19 [Advair Diskus] Allergies Allergy/AdvReac Type Severity Reaction Status Date / Time phenobarbital AdvReac Unknown Other Verified 03/25/20 17:03 Review of Systems Review of Systems: Narrative: CONSTITUTIONAL: Denies fever, chills, or sweats. EYES: Denies visual changes, redness, or discharge. ENT: Denies rhinorrhea, congestion, sore throat, or otalgia. CARDIOVASCULAR: Denies chest pain, palpitations, or edema. RESPIRATORY: Denies cough or dyspnea. GASTROINTESTINAL: Denies abdominal pain, nausea, vomiting, or diarrhea. GENITOURINARY: Denies dysuria or hematuria. SKIN: Denies rash or itching. MUSCULOSKELETAL: Denies back pain, joint pain, or myalgia. NEUROLOGIC: Denies headache, numbness, or weakness. PSYCHIATRIC: Denies anxiety or depression. All systems reviewed & are unremarkable except as noted in HPI and below PMFSH Past Medical History Medical History (Updated 03/25/20 @ 19:52 by Ky Coleman MD) Anxiety Arthritis Asthma Bronchitis COPD (chronic obstructive pulmonary disease) CVA (cerebral vascular accident) Depression Diabetes Epilepsy GERD (gastroesophageal reflux disease) GI bleed Head trauma Hyperlipidemia Hypertension IBS (irritable bowel syndrome) Sleep apnea Surgical History Surgical History History of open reduction and internal fixation (ORIF) procedure Hx of craniotomy temporal lobe resection Social History Social History Smoking status: Former smoker Gender identity (if verbalized by the patient): Male Exam Narrative: Exam Narrative: Care of his GENERAL: Well-appearing, well-nourished, and in no acute distress. HEAD: Normocephalic, atraumatic. EYES: PERRLA and EOMI. ENT: Nares clear, no rhinorrhea or epistaxis. Mucous membranes moist. NECK: Supple. CHEST: Clear to auscultation. No respiratory distress. HEART: Regular rate and rhythm. No murmur heard. Normal peripheral pulses. ABDOMEN: Soft, nontender, nondistended, normal active bowel sounds. EXTREMITIES: Normal range of motion. No edema. SKIN: Warm, dry, no rash. NEURO: No focal deficits. Alert and oriented x3. PSYCH: Normal mood and affect. Course Vital Signs Vital signs: Vital Signs Temperature 36.2 C L 03/25/20 16:55 Pulse Rate 76 03/25/20 16:55 Respiratory Rate 16 03/25/20 16:55 Pulse Oximetry 100 03/25/20 16:55 Temperature 36.2 C L 03/25/20 16:55 Pulse Rate 71 03/25/20 18:41 Respiratory Rate 17 03/25/20 18:41 Blood Pressure 121/71 03/25/20 18:41 Pulse Oximetry 100 03/25/20 18:41 MDM - Syncope Lab Data Result diagrams: 03/25/20 17:04
[2020-03-25 20:11] VITALS: BP 135/93; PULSE 74; RESP 17; O2SAT 98
== END 2020-03-25 20:13 | disposition home or self-care (01) ==
PROVIDERS: Emergency Provider Emergency Medicine; PCP Internal Medicine
DX: R55 Syncope and collapse (principal); M19.90 Unspecified osteoarthritis, unspecified site; J44.9 Chronic obstructive pulmonary disease, unspecified; Z86.73 Personal history of transient ischemic attack (TIA), and cerebral infarction without residual deficits; E11.9 Type 2 diabetes mellitus without complications; K21.9 Gastro-esophageal reflux disease without esophagitis; E78.5 Hyperlipidemia, unspecified; I10 Essential (primary) hypertension; K58.9 Irritable bowel syndrome, unspecified; G47.30 Sleep apnea, unspecified; F32.9 Major depressive disorder, single episode, unspecified; F41.9 Anxiety disorder, unspecified; G40.909 Epilepsy, unspecified, not intractable, without status epilepticus; I44.0 Atrioventricular block, first degree; I44.4 Left anterior fascicular block
CPT/HCPCS: 36415; 85025; 93005; 99284

== ENCOUNTER 2020-04-05 13:00 | Emergency (ER) | payer MEDICARE, MEDICAID, SELFPAY ==
--- NOTE | ~2020-04-05 | XR_ITS ---
EXAMINATION: XR chest 1V portable DATE: 04/05/2020 17:26 INDICATION: Chronic obstructive pulmonary disease. Weakness. Left chest pain. TECHNIQUE: A single frontal view of the chest was obtained. COMPARISON: Chest 2 views 01/03/2020 FINDINGS: There are lucencies in the upper lungs, consistent with emphysema. There is mild atelectasi s in left lower lung zone. No pleural effusion or pneumothorax. The heart size is normal. There is an implanted electronic device overlying left chest. IMPRESSION: 1. Emphysema. 2. Mild atelectasis in left lower lung zone. Reviewed, dictated and finalized at location A. ERY DELIVERER
[2020-04-05 13:02] VITALS: BP 102/55; PULSE 73; RESP 18; TEMP 36.4; O2SAT 100
--- NOTE | 2020-04-05 13:02 | ECG_ITS ---
Measurements Intervals [place] Rate: 74 P: 60 [place]: 208 QRS: -73 QRSD: 126 T: 52 QT: 414 QTc: 460 Interpretive Statements SINUS RHYTHM WITH FIRST DEGREE AV BLOCK LEFT ANTERIOR FASCICULAR BLOCK BASELINE ARTIFACT- I, III ABNORMAL ECG Electronically Signed On 04-05-2020 13:28:16 ROVING OR YARN COLOR CHECKER by Nelson Nguyen D.O.
[2020-04-05 13:20] LABS: Basophils Absolute Auto 0.1 K/mm3 (0.0-0.1); Basophils Percent Auto 0.8 % (0.2-1.2); Eosinophils Absolute Auto 0.2 K/mm3 (0-0.3); Eosinophils Percent Auto 3.2 % (0-4.4); Hematocrit 43.2 % (42.0-52.0); Hemoglobin 13.8 g/dL (14.0-18.0); Immature Granulocyte Absolute 0.08 K/mm3 (0.00-0.031); Immature Granulocyte Percent A 1.3 % (0-0.5); Lymphocytes Absolute Auto 2.79 K/mm3 (0.9-3.2); Mean Corpuscular HGB Conc 31.9 g/dl (32-36); Mean Corpuscular Volume 97.1 fl (80-100); Mean Platelet Volume 9.4 fl (7.4-10.4); Monocytes Absolute Auto 0.5 K/mm3 (0.1-0.6); Monocytes Percent Auto 7.6 % (2.6-8.5); Neutrophils Absolute Auto 2.7 K/mm3 (1.3-6.7); Neutrophils Percent Auto 43.1 % (45.5-73.1); Platelet Count Result 165 k/mm3 (150-375); Red Blood Count 4.45 M/mm3 (4.6-6.20); Red Cell Distribution Width 13.6 % (11.5-14.5); White Blood Count 6.3 K/mm3 (4.5-10.0)
[2020-04-05 13:34] LABS: Alanine Aminotransferase 24 U/L (4-50); Albumin Level 4.3 g/dL (3.5-5.1); Alkaline Phosphatase 81 U/L (38-126); Anion Gap 10 mmol/L (8-16); Aspartate Amino Transferase 45 U/L (17-59); Bilirubin,Total 0.4 mg/dL (0.2-1.3); Blood Urea Nitrogen 22 mg/dL (9-20); Calcium 9.2 mg/dL (8.4-10.2); Carbon Dioxide 26 mmol/L (22-30); Chloride 102 mmol/L (98-107); Estimated CRCL calculation 86 ml/min; Estimated Glomerular Filt Rate > 60; Glucose 114 mg/dL (75-110); Potassium 3.9 mmol/L (3.4-5.0); Sodium 138 mmol/L (137-145)
--- NOTE | 2020-04-05 18:11 | ED.GENADULT ---
HPI - General Adult General Chief complaint: Weakness Stated complaint: Weakness, Chest Wall Pain, Chills Time Seen by Provider: 04/05/20 13:06 Source: patient Mode of arrival: ambulatory Limitations: no limitations History of Present Illness HPI narrative: Patient is a 55-year-old male who presents noting that he has had some nausea body aches cough congestion runny nose for the last several days denies sick contacts presents in no distress has not taken anything for his symptoms denies vomiting diarrhea chest pain shortness of breath has not been seen for this complaint on arrival is in the room in no distress resting comfortably Related Data Home Medications Medication Instructions Recorded Confirmed Topamax 700 mg PO DAILY 04/04/19 divalproex [Depakote] 500 mg PO Q12H 04/04/19 11/05/19 nortriptyline 75 mg PO BID 04/04/19 albuterol sulfate 2 inh INHALATION Q4H PRN 11/05/19 11/05/19 aspirin 81 mg PO DAILY 11/05/19 11/05/19 atorvastatin 10 mg PO HS 11/05/19 11/05/19 citalopram 40 mg PO DAILY 11/05/19 11/05/19 enalapril maleate 5 mg PO DAILY 11/05/19 11/05/19 fenofibrate 160 mg PO DAILY 11/05/19 11/05/19 fluticasone propion-salmeterol 1 inh INHALATION BID 11/05/19 11/05/19 [Advair Diskus] Allergies Allergy/AdvReac Type Severity Reaction Status Date / Time phenobarbital AdvReac Unknown Other Verified 03/25/20 17:03 Review of Systems Review of Systems: All systems reviewed & are unremarkable except as noted in HPI and below PMFSH Past Medical History Medical History (Updated 04/05/20 @ 18:14 by Jonathan Whalen PA-C) Anxiety Arthritis Asthma Bronchitis COPD (chronic obstructive pulmonary disease) CVA (cerebral vascular accident) Depression Diabetes Epilepsy GERD (gastroesophageal reflux disease) GI bleed Head trauma Hyperlipidemia Hypertension IBS (irritable bowel syndrome) Sleep apnea Surgical History Surgical History History of open reduction and internal fixation (ORIF) procedure Hx of craniotomy temporal lobe resection Social History Social History Smoking status: Former smoker Gender identity (if verbalized by the patient): Male Sexual Orientation (if Verbalized by the Patient): Straight or Heterosexual Exam Narrative: Exam Narrative: GENERAL: Well-appearing, well-nourished, and in no acute distress. HEAD: Normocephalic, atraumatic. EYES: PERRLA and EOMI. ENT: Nares clear, no rhinorrhea or epistaxis. Mucous membranes moist. CHEST: Clear to auscultation. No respiratory distress. No wheezes rales or rhonchi HEART: Regular rate and rhythm. No murmur heard. Normal peripheral pulses. ABDOMEN: Soft, nontender, nondistended EXTREMITIES: Normal range of motion. No edema. SKIN: Warm, dry, no rash. NEURO: No focal deficits. Alert and oriented x3. PSYCH: Normal mood and affect. Course Course Emergency Course: Patient in the room in no distress aware of case findings treatment plan diagnosis will be discharged for follow-up with primary care to obtain his COVID-19 results advised to self quarantine no high risk changes in the blood work or imaging Vital Signs Vital signs: Vital Signs Temperature 97.6 F 04/05/20 13:02 Pulse Rate 73 04/05/20 13:02 Respiratory Rate 18 04/05/20 13:02 Blood Pressure 102/55 L 04/05/20 13:02 Pulse Oximetry 100 04/05/20 13:02 Temperature 97.6 F 04/05/20 13:02 Pulse Rate 73 04/05/20 13:02 Respiratory Rate 18 04/05/20 13:02 Blood Pressure 102/55 L 04/05/20 13:02 Pulse Oximetry 100 04/05/20 13:02 Medical Decision Making MDM Narrative Medical decision making narrative: Patient not feeling well will be swabbed for COVID-19 no other high risk changes in the blood work or imaging will be discharged home afebrile nontoxic-appearing patient with stable ABCs vital signs normal Vital Signs Vital Signs: Vital Signs
[2020-04-05 19:18] VITALS: BP 127/82; PULSE 68; RESP 18; O2SAT 99
[2020-04-06 01:19] LABS: SARS-CoV-2 RNA PCR Negative
== END 2020-04-05 19:20 | disposition home or self-care (01) ==
PROVIDERS: Emergency Medicine; Emergency Medicine Emergency Medical Services; Emergency Provider Emergency Medicine; PCP Internal Medicine
DX: J06.9 Acute upper respiratory infection, unspecified (principal); Z20.828 Contact with and (suspected) exposure to other viral communicable diseases; M19.90 Unspecified osteoarthritis, unspecified site; J44.9 Chronic obstructive pulmonary disease, unspecified; Z86.73 Personal history of transient ischemic attack (TIA), and cerebral infarction without residual deficits; F41.9 Anxiety disorder, unspecified; F32.9 Major depressive disorder, single episode, unspecified; E11.9 Type 2 diabetes mellitus without complications; G40.909 Epilepsy, unspecified, not intractable, without status epilepticus; K21.9 Gastro-esophageal reflux disease without esophagitis; E78.5 Hyperlipidemia, unspecified; I10 Essential (primary) hypertension; K58.9 Irritable bowel syndrome, unspecified; G47.30 Sleep apnea, unspecified; Z87.891 Personal history of nicotine dependence; Z79.82 Long term (current) use of aspirin; I44.0 Atrioventricular block, first degree; I44.4 Left anterior fascicular block
CPT/HCPCS: 36415; 71045; 80053; 85025; 87635; 93005; 99283; C9803; U0003

== ENCOUNTER 2020-05-23 17:36 | Emergency (ER) | payer MEDICARE, MEDICAID, SELFPAY ==
--- NOTE | ~2020-05-23 | CT_ITS ---
EXAMINATION: CT brain wo con DATE: 05/23/2020 18:39 INDICATION: Seizure. TECHNIQUE: Computed tomography (CT) of the head was performed without intravenous contrast. The mA wa s adjusted according to patient size. Iterative reconstruction technique was employed. The dose-lengt h product was 681.00 mGy-cm. COMPARISON: Head CT 02/11/2019 FINDINGS: There is chronic encephalomalacia in right temporal lobe and lateral aspect of right fronta l lobe. There are changes of right-sided craniotomy. There is no intracranial hemorrhage, acute infar ction, or abnormal intracranial mass lesion. The ventricles are normal in size. The paranasal sinuses are clear. The orbits are normal. The mastoid air cells are normal. IMPRESSION: 1. 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 Reviewed, dictated and finalized at location A. UCTION ENGINEER TRACK
[2020-05-23 17:33] VITALS: BP 129/70; PULSE 72; RESP 18; TEMP 36.2; O2SAT 98
--- NOTE | 2020-05-23 17:38 | ECG_ITS ---
Measurements Intervals [place] Rate: 71 P: 50 [place]: 221 QRS: -68 QRSD: 122 T: 45 QT: 437 QTc: 477 Interpretive Statements SINUS RHYTHM WITH FIRST DEGREE AV BLOCK RIGHT BUNDLE BRANCH BLOCK LEFT ANTERIOR FASCICULAR BLOCK ABNORMAL ECG Electronically Signed On 05-24-2020 7:10:25 SYSTEMS PROGRAMMER ANALYST by Nelson Nguyen D.O.
[2020-05-23 17:39] VITALS: PULSE 72
--- NOTE | 2020-05-23 17:53 | PC.NURSE ---
pt refuses to have seizure pads around bed, aware of need. pt continues to refuse scrap charger aware
--- NOTE | 2020-05-23 18:21 | ED.SYNCOPE ---
HPI - Syncope General Chief Complaint: Seizure Stated Complaint: seizure vs. syncope, alert and oriented x4 now Time Seen by Provider: 05/23/20 18:08 Source: patient Mode of arrival: ambulatory Limitations: no limitations History of Present Illness HPI narrative: Patient is a 49-year-old male well-known to this emergency department brought in by EMS after a syncopal episode versus a seizure at a restaurant. Patient has had multiple ER visits due to the same complaint. The syncopal episode usually occurs after eating. Syncopal episode usually occurs at a restaurant after eating and before the check is given. Patient denies syncopal episodes after eating at home but only once in a [place] . Patient denies any urinary or bowel incontinence. Patient denies any speech or visual disturbance, weakness, numbness chest pain, shortness of breath, abdominal pain, nausea, vomiting, diarrhea, fever or chills. Patient states he is back to his baseline self. Related Data Home Medications Medication Instructions Recorded Confirmed Topamax 700 mg PO DAILY 04/04/19 divalproex [Depakote] 500 mg PO Q12H 04/04/19 11/05/19 nortriptyline 75 mg PO BID 04/04/19 albuterol sulfate 2 inh INHALATION Q4H PRN 11/05/19 11/05/19 aspirin 81 mg PO DAILY 11/05/19 11/05/19 atorvastatin 10 mg PO HS 11/05/19 11/05/19 citalopram 40 mg PO DAILY 11/05/19 11/05/19 enalapril maleate 5 mg PO DAILY 11/05/19 11/05/19 fenofibrate 160 mg PO DAILY 11/05/19 11/05/19 fluticasone propion-salmeterol 1 inh INHALATION BID 11/05/19 11/05/19 [Advair Diskus] Allergies Allergy/AdvReac Type Severity Reaction Status Date / Time phenobarbital AdvReac Unknown Other Verified 03/25/20 17:03 Review of Systems Review of Systems: All systems reviewed & are unremarkable except as noted in HPI and below Constitutional: Constitutional: Denies body ache(s), Denies chills, Denies excessive sweating, Denies fatigue, Denies fever(s), Denies headache(s), Denies lethargy, Denies malaise, Denies weakness and Denies weight loss Eyes: Eyes: Denies blurry vision, Denies change in vision and Denies loss of vision ENT: Denies dizziness, Denies ear discharge, Denies headache(s), Denies lip swelling, Denies epistaxis, Denies nasal congestion, Denies neck pain, Denies throat swelling and Denies tongue swelling Cardiovascular: Cardiovascular: Denies chest pain, Denies chest pain at rest, Denies chest pain with activity, Denies diaphoresis, Denies rapid heart rate, Denies edema, Denies irregular heart rhythm, Denies lightheadedness, Denies palpitations, Denies dyspnea and Denies dyspnea on exertion Respiratory: Respiratory: Denies chest congestion, Denies cough, Denies hemoptysis, Denies dyspnea and Denies dyspnea on exertion Gastrointestinal: Gastrointestinal: Denies abdominal pain, Denies melena, Denies hematochezia, Denies diarrhea, Denies nausea, Denies vomiting and Denies hematemesis Musculoskeletal: Musculoskeletal: Denies abnormal gait, Denies deformity, Denies joint swelling, Denies limited range of motion, Denies neck pain and Denies numbness Neurologic: Denies Abnormal speech present, Denies abnormal gait, Denies confusion, Denies dizziness, Denies headache(s), Denies focal weakness, Denies loss of vision, Denies numbness, Denies Other visual disturbances, Denies Sensory deficit (Neuro) and Denies weakness Psychiatric: Psychiatric: Denies confusion, Denies depression, Denies auditory hallucinations, Denies homicidal ideation and Denies suicidal ideation Endocrine: Endocrine: Denies cold intolerance, Denies excessive sweating, Denies fatigue, Denies heat intolerance and Denies palpitations Hematologic/Lymphatic: Hematologic/Lymphatic: Denies easy bleeding and Denies easy bruising Allergic/Immunologic: Allergic/Immunologic: Denies lip swelling, Denies throat swelling and Denies tongue swelling PMFSH Past Medical History Medical History (Updated 05/23/20 @ 19:38 by Danial He MD) Anxie
[2020-05-23 18:25] LABS: Basophils Percent Auto 0.4 % (0.2-1.2); Eosinophils Absolute Auto 0.2 K/mm3 (0-0.3); Eosinophils Percent Auto 3.1 % (0-4.4); Hematocrit 43.5 % (42.0-52.0); Hemoglobin 13.9 g/dL (14.0-18.0); Immature Granulocyte Absolute 0.06 K/mm3 (0.00-0.031); Immature Granulocyte Percent A 1.1 % (0-0.5); Lymphocytes Absolute Auto 2.49 K/mm3 (0.9-3.2); Mean Corpuscular Hemoglobin 30.8 pg (26-34); Mean Corpuscular Volume 96.5 fl (80-100); Mean Platelet Volume 9.1 fl (7.4-10.4); Monocytes Absolute Auto 0.4 K/mm3 (0.1-0.6); Monocytes Percent Auto 6.8 % (2.6-8.5); Neutrophils Absolute Auto 2.3 K/mm3 (1.3-6.7); Neutrophils Percent Auto 42.6 % (45.5-73.1); Platelet Count Result 179 k/mm3 (150-375); Red Blood Count 4.51 M/mm3 (4.6-6.20); Red Cell Distribution Width 13.2 % (11.5-14.5); White Blood Count 5.4 K/mm3 (4.5-10.0)
[2020-05-23 18:34] LABS: Anion Gap 8 mmol/L (8-16); Blood Urea Nitrogen 13 mg/dL (9-20); Calcium 8.5 mg/dL (8.4-10.2); Carbon Dioxide 27 mmol/L (22-30); Chloride 103 mmol/L (98-107); Estimated CRCL calculation 90 ml/min; Estimated Glomerular Filt Rate > 60; Glucose 119 mg/dL (75-110); Potassium 3.7 mmol/L (3.4-5.0); Sodium 138 mmol/L (137-145)
[2020-05-23 18:40] VITALS: BP 146/92; PULSE 70
[2020-05-23 19:17] LABS: Troponin I < 0.012 ng/mL (0.000-0.034)
[2020-05-23 20:12] VITALS: BP 130/62; PULSE 74; RESP 16; O2SAT 98
== END 2020-05-23 20:13 | disposition home or self-care (01) ==
PROVIDERS: Emergency Provider Emergency Medicine; PCP Internal Medicine
DX: R55 Syncope and collapse (principal); G40.909 Epilepsy, unspecified, not intractable, without status epilepticus; J44.9 Chronic obstructive pulmonary disease, unspecified; E11.9 Type 2 diabetes mellitus without complications; E78.5 Hyperlipidemia, unspecified; I10 Essential (primary) hypertension; K58.9 Irritable bowel syndrome, unspecified; K21.9 Gastro-esophageal reflux disease without esophagitis; G47.30 Sleep apnea, unspecified; F32.9 Major depressive disorder, single episode, unspecified; M19.90 Unspecified osteoarthritis, unspecified site; F41.9 Anxiety disorder, unspecified; Z86.73 Personal history of transient ischemic attack (TIA), and cerebral infarction without residual deficits; Z87.891 Personal history of nicotine dependence
CPT/HCPCS: 36415; 70450; 80048; 84484; 85025; 93005; 99284

== ENCOUNTER 2020-06-11 22:52 | Emergency (ER) | payer MEDICARE, MEDICAID, SELFPAY ==
[2020-06-11 22:56] VITALS: BP 110/62; PULSE 71; RESP 20; TEMP 36.7; O2SAT 99
--- NOTE | 2020-06-11 23:02 | ECG_ITS ---
Measurements Intervals [place] Rate: 68 P: 46 MD: 219 QRS: -69 QRSD: 119 T: 31 QT: 432 QTc: 462 Interpretive Statements SINUS RHYTHM WITH FIRST DEGREE AV BLOCK INCOMPLETE RIGHT BUNDLE BRANCH BLOCK LEFT ANTERIOR FASCICULAR BLOCK ABNORMAL ECG Electronically Signed On 06-12-2020 6:49:32 FOREIGN FOOD SPECIALTY COOK by Nelson Nguyen D.O.
--- NOTE | 2020-06-11 23:12 | PC.NURSE ---
assumed care of pt at this time, received report from param flores
[2020-06-11 23:30] VITALS: BP 106/62; PULSE 66; RESP 18; O2SAT 98
--- NOTE | 2020-06-11 23:30 | ED.SYNCOPE ---
HPI - Syncope General Chief Complaint: Syncope Stated Complaint: syncope Time Seen by Provider: 06/11/20 23:09 Source: patient Mode of arrival: ambulatory Limitations: no limitations History of Present Illness HPI narrative: A 55-year-old gentleman comes into the emergency department tonight after a seizure versus syncopal episode. He and his friend who is with him states that he has been having these episodes where he will go into a blank stare, becomes unresponsive and then eventually passes out. His friend state that this is a cycle that these episodes usually happen every 1 to 2 months. She states tonight he stared off into space for approximately 5 minutes would not respond or answer her. She notes that after this he usually passes out and will be unconscious anywhere from 10 to 15 minutes and then he wakes up and starts to come around. He does have a history of a traumatic brain injury and states that he has been seeing a neurologist. Related Data Home Medications Medication Instructions Recorded Confirmed Topamax 700 mg PO DAILY 04/04/19 divalproex [Depakote] 500 mg PO Q12H 04/04/19 11/05/19 nortriptyline 75 mg PO BID 04/04/19 albuterol sulfate 2 inh INHALATION Q4H PRN 11/05/19 11/05/19 aspirin 81 mg PO DAILY 11/05/19 11/05/19 atorvastatin 10 mg PO HS 11/05/19 11/05/19 citalopram 40 mg PO DAILY 11/05/19 11/05/19 enalapril maleate 5 mg PO DAILY 11/05/19 11/05/19 fenofibrate 160 mg PO DAILY 11/05/19 11/05/19 fluticasone propion-salmeterol 1 inh INHALATION BID 11/05/19 11/05/19 [Advair Diskus] Allergies Allergy/AdvReac Type Severity Reaction Status Date / Time phenobarbital AdvReac Unknown Other Verified 03/25/20 17:03 Review of Systems Review of Systems: Narrative: CONSTITUTIONAL: Denies fever, chills, or sweats. EYES: Denies visual changes, redness, or discharge. ENT: Denies rhinorrhea, congestion, sore throat, or otalgia. CARDIOVASCULAR: Denies chest pain, palpitations, or edema. RESPIRATORY: Denies cough or dyspnea. GASTROINTESTINAL: Denies abdominal pain, nausea, vomiting, or diarrhea. GENITOURINARY: Denies dysuria or hematuria. SKIN: Denies rash or itching. MUSCULOSKELETAL: Denies back pain, joint pain, or myalgia. NEUROLOGIC: Denies headache, numbness, dizziness, or weakness. PSYCHIATRIC: Denies anxiety or depression. [facility] Past Medical History Medical History (Updated 06/12/20 @ 01:47 by Issac Henderson DO) Anxiety Arthritis Asthma Bronchitis COPD (chronic obstructive pulmonary disease) CVA (cerebral vascular accident) Depression Diabetes Epilepsy GERD (gastroesophageal reflux disease) GI bleed Head trauma Hyperlipidemia Hypertension IBS (irritable bowel syndrome) Sleep apnea Surgical History Surgical History History of open reduction and internal fixation (ORIF) procedure Hx of craniotomy temporal lobe resection Social History Social History Smoking status: Former smoker Gender identity (if verbalized by the patient): Male Exam Narrative: Exam Narrative: GENERAL: Well-appearing, well-nourished, and in no acute distress. HEAD: Normocephalic, atraumatic. EYES: PERRLA and EOMI. ENT: Nares clear, no rhinorrhea or epistaxis. Mucous membranes moist. Oropharynx without tonsillar hypertrophy exudate or other lesions. Bilateral TMs pearly driver nonbulging NECK: Supple. No adenopathy or masses. No carotid bruits or JVD CHEST: Clear to auscultation. No respiratory distress. No wheezes rales or rhonchi HEART: Regular rate and rhythm. No murmur heard. Normal peripheral pulses. ABDOMEN: Soft, nontender, nondistended, normal active bowel sounds. EXTREMITIES: Normal range of motion. No edema. SKIN: Warm, dry, no rash. NEURO: No focal deficits. Alert and oriented x3. PSYCH: Normal mood and affect. Course Reevaluation(s) Reevaluation #1: Patient sitting and resting comfortably a
--- NOTE | 2020-06-11 23:49 | PC.NURSE ---
this rn attempted iv access 2x, no success. charge operator notified, she states she will try.
[2020-06-12 00:30] VITALS: BP 127/74; PULSE 70; RESP 18; O2SAT 100
[2020-06-12 00:54] LABS: Basophils Absolute Auto 0.1 K/mm3 (0.0-0.1); Basophils Percent Auto 0.6 % (0.2-1.2); Eosinophils Absolute Auto 0.2 K/mm3 (0-0.3); Eosinophils Percent Auto 2.7 % (0-4.4); Hemoglobin 13.8 g/dL (14.0-18.0); Immature Granulocyte Absolute 0.08 K/mm3 (0.00-0.031); Lymphocytes Absolute Auto 3.59 K/mm3 (0.9-3.2); Lymphocytes Percent Auto 44.2 % (18.3-44.2); Mean Corpuscular HGB Conc 32.1 g/dl (32-36); Mean Corpuscular Hemoglobin 30.7 pg (26-34); Mean Corpuscular Volume 95.6 fl (80-100); Mean Platelet Volume 9.2 fl (7.4-10.4); Monocytes Absolute Auto 0.7 K/mm3 (0.1-0.6); Monocytes Percent Auto 8.7 % (2.6-8.5); Neutrophils Absolute Auto 3.5 K/mm3 (1.3-6.7); Neutrophils Percent Auto 42.8 % (45.5-73.1); Platelet Count Result 190 k/mm3 (150-375); Red Cell Distribution Width 13.3 % (11.5-14.5); White Blood Count 8.1 K/mm3 (4.5-10.0)
[2020-06-12 01:06] LABS: Anion Gap 8 mmol/L (8-16); Blood Urea Nitrogen 16 mg/dL (9-20); Calcium 8.9 mg/dL (8.4-10.2); Carbon Dioxide 23 mmol/L (22-30); Chloride 106 mmol/L (98-107); Estimated CRCL calculation 99 ml/min; Estimated Glomerular Filt Rate > 60; Glucose 107 mg/dL (75-110); Potassium 3.7 mmol/L (3.4-5.0); Sodium 137 mmol/L (137-145)
--- NOTE | 2020-06-12 01:06 | PC.NURSE ---
pt not able to give urine sample right now, refused straight cath.
--- NOTE | 2020-06-12 01:39 | PC.NURSE ---
pt sleeping in room 10. still not able to give urine, refused straight cath. states whats taking so long? this rn explains to pt that we are waiting for his urine sample, pt states he understands. urinal at bedside, instucted to use call light when hes able to urinate.
[2020-06-12 02:10] VITALS: BP 117/89; PULSE 74; RESP 18; O2SAT 100
== END 2020-06-12 02:12 | disposition home or self-care (01) ==
PROVIDERS: Emergency Medicine; Emergency Provider Emergency Medicine; PCP Internal Medicine
DX: G40.909 Epilepsy, unspecified, not intractable, without status epilepticus (principal); J44.9 Chronic obstructive pulmonary disease, unspecified; E11.9 Type 2 diabetes mellitus without complications; E78.5 Hyperlipidemia, unspecified; I10 Essential (primary) hypertension; Z86.73 Personal history of transient ischemic attack (TIA), and cerebral infarction without residual deficits; K21.9 Gastro-esophageal reflux disease without esophagitis; M19.90 Unspecified osteoarthritis, unspecified site; F32.9 Major depressive disorder, single episode, unspecified; F41.9 Anxiety disorder, unspecified; Z87.820 Personal history of traumatic brain injury; Z79.82 Long term (current) use of aspirin; I44.0 Atrioventricular block, first degree; I45.2 Bifascicular block; K58.9 Irritable bowel syndrome, unspecified; G47.30 Sleep apnea, unspecified; Z87.891 Personal history of nicotine dependence
CPT/HCPCS: 36415; 80048; 83735; 85025; 93005; 99284

== ENCOUNTER 2020-06-20 12:36 | Emergency (ER) | payer MEDICARE, MEDICAID, SELFPAY ==
--- NOTE | ~2020-06-20 | CT_ITS ---
EXAMINATION: CT brain wo con DATE: 06/20/2020 13:01 INDICATION: Syncope. TECHNIQUE: Computed tomography (CT) of the head was performed without intravenous contrast. The mA wa s adjusted according to patient size. Iterative reconstruction technique was employed. The dose-lengt h product was 681.00 mGy-cm. COMPARISON: Head CT 05/23/2020 FINDINGS: There is chronic encephalomalacia in right temporal lobe and right frontal lobe. There is n o intracranial hemorrhage, acute infarction, or abnormal intracranial mass lesion. The ventricles are normal in size. The paranasal sinuses are clear. The mastoid air cells are normal. The orbits are no rmal. IMPRESSION: 1. 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 Reviewed, dictated and finalized at location A. ENT PRODUCER
[2020-06-20 12:35] VITALS: PULSE 73; RESP 20; TEMP 36.8
[2020-06-20 12:42] VITALS: PULSE 74; RESP 13; O2SAT 100
[2020-06-20 12:43] VITALS: BP 121/68
--- NOTE | 2020-06-20 12:43 | ECG_ITS ---
Measurements Intervals [place] Rate: 73 P: 48 OR: 224 QRS: -65 QRSD: 123 T: 26 QT: 413 QTc: 457 Interpretive Statements SINUS RHYTHM WITH FIRST DEGREE AV BLOCK LEFT ANTERIOR FASCICULAR BLOCK ABNORMAL ECG Electronically Signed On 06-20-2020 14:19:00 [employer]ORE PROTECTION SPECIALIST by Nelson Nguyen D.O.
--- NOTE | 2020-06-20 12:48 | ED.GENADULT ---
HPI - General Adult General Chief complaint: Syncope Stated complaint: syncopal episode Time Seen by Provider: 06/20/20 12:37 Source: patient and EMS History of Present Illness HPI narrative: Patient is a 55 y/o male brought in by EMS for syncope. Patient states that he was sitting there eating at a restaurant and felt dizzy. He then woke up on the floor. He states that he was told he slid out of chair and fell. However, he has no recollection of fall. He believes that the employees of the restaurant called EMS. This occurred less than 1 hour ago. He has some generalized bodyache. He has no focal weakness or numbness. Related Data Home Medications Medication Instructions Recorded Confirmed Topamax 700 mg PO DAILY 04/04/19 divalproex [Depakote] 500 mg PO Q12H 04/04/19 11/05/19 nortriptyline 75 mg PO BID 04/04/19 albuterol sulfate 2 inh INHALATION Q4H PRN 11/05/19 11/05/19 aspirin 81 mg PO DAILY 11/05/19 11/05/19 atorvastatin 10 mg PO HS 11/05/19 11/05/19 citalopram 40 mg PO DAILY 11/05/19 11/05/19 enalapril maleate 5 mg PO DAILY 11/05/19 11/05/19 fenofibrate 160 mg PO DAILY 11/05/19 11/05/19 fluticasone propion-salmeterol 1 inh INHALATION BID 11/05/19 11/05/19 [Advair Diskus] Allergies Allergy/AdvReac Type Severity Reaction Status Date / Time phenobarbital AdvReac Unknown Other Verified 06/20/20 12:42 Review of Systems Constitutional: Constitutional: Denies chills, Denies fever(s), Denies headache(s) and Denies weakness Eyes: Eyes: Denies blurry vision ENT: Denies headache(s) and Denies neck pain Cardiovascular: Cardiovascular: Denies chest pain and Denies dyspnea Respiratory: Respiratory: Denies cough and Denies dyspnea Gastrointestinal: Gastrointestinal: Denies abdominal pain, Denies diarrhea, Denies nausea and Denies vomiting Genitourinary: Genitourinary: Denies hematuria and Denies dysuria Musculoskeletal: Musculoskeletal: Denies back pain, Reports myalgias and Denies neck pain Neurologic: Reports syncope, Denies headache(s) and Denies weakness [facility] Past Medical History Medical History (Updated 06/20/20 @ 15:05 by Ana Melchor MD) Anxiety Arthritis Asthma Bronchitis COPD (chronic obstructive pulmonary disease) CVA (cerebral vascular accident) Depression Diabetes Epilepsy GERD (gastroesophageal reflux disease) GI bleed Head trauma Hyperlipidemia Hypertension IBS (irritable bowel syndrome) Sleep apnea Surgical History Surgical History History of open reduction and internal fixation (ORIF) procedure Hx of craniotomy temporal lobe resection Social History Social History Smoking status: Former smoker Gender identity (if verbalized by the patient): Male Exam Const: General: no acute distress and well developed Orientation/consciousness: oriented to person, oriented to place, oriented to time and patient oriented x3 HENMT: Head: normocephalic Ears: external ears normal General nose exam: Normal external nose present Eyes: General: appearance normal, both eyes and all related structures Conjunctivae: conjunctivae normal Neck: Neck: normal visual inspection and full ROM Chest: Chest palpation & inspection: normal inspection of the chest and no tenderness Resp: Effort & Inspection: normal respiratory effort Auscultation: clear to auscultation bilaterally Cardio: Rate: regular rate Rhythm: regular rhythm GI: GI Palp: No abdominal tenderness and Yes Soft to palpation Skin: General skin exam: normal color and turgor normal Neuro: General: oriented to person, oriented to place, oriented to time and patient oriented x3 Cognition (Neuro): normal cognition Extrem: General: normal to inspection, full ROM and no pedal edema Psych: Appearance: grossly normal Mental Status: mental status grossly normal Affect: normal affect Course Vital Signs Vital signs: Vital Sign
--- NOTE | 2020-06-20 12:51 | PC.NURSE ---
Multiple nurses attempted to start IV, unsuccessful. Herrera WARD to try.
[2020-06-20 13:48] LABS: Basophils Percent Auto 0.6 % (0.2-1.2); Eosinophils Absolute Auto 0.2 K/mm3 (0-0.3); Eosinophils Percent Auto 2.8 % (0-4.4); Hematocrit 42.8 % (42.0-52.0); Hemoglobin 13.9 g/dL (14.0-18.0); Immature Granulocyte Absolute 0.06 K/mm3 (0.00-0.031); Immature Granulocyte Percent A 0.9 % (0-0.5); Lymphocytes Absolute Auto 2.77 K/mm3 (0.9-3.2); Lymphocytes Percent Auto 40.9 % (18.3-44.2); Mean Corpuscular HGB Conc 32.5 g/dl (32-36); Mean Corpuscular Hemoglobin 31.2 pg (26-34); Mean Platelet Volume 9.1 fl (7.4-10.4); Monocytes Absolute Auto 0.6 K/mm3 (0.1-0.6); Monocytes Percent Auto 9.3 % (2.6-8.5); Neutrophils Absolute Auto 3.1 K/mm3 (1.3-6.7); Neutrophils Percent Auto 45.5 % (45.5-73.1); Platelet Count Result 169 k/mm3 (150-375); Red Blood Count 4.46 M/mm3 (4.6-6.20); Red Cell Distribution Width 13.3 % (11.5-14.5); White Blood Count 6.8 K/mm3 (4.5-10.0)
[2020-06-20 14:12] LABS: Alanine Aminotransferase 22 U/L (4-50); Albumin Level 4.1 g/dL (3.5-5.1); Alkaline Phosphatase 73 U/L (38-126); Anion Gap 10 mmol/L (8-16); Aspartate Amino Transferase 49 U/L (17-59); Bilirubin,Total 0.4 mg/dL (0.2-1.3); Blood Urea Nitrogen 17 mg/dL (9-20); Carbon Dioxide 24 mmol/L (22-30); Chloride 105 mmol/L (98-107); Estimated CRCL calculation 88 ml/min; Estimated Glomerular Filt Rate > 60; Glucose 82 mg/dL (75-110); Sodium 139 mmol/L (137-145)
[2020-06-20 14:19] LABS: Add Urine Microscopic? YES; Appearance Urine Clear (Clear); Bilirubin Urine Negative (Negative); Blood Urine Negative (Negative); Color Urine Yellow (Yellow); Glucose Urine UA 3+ mg/dL (Negative); Ketones Urine Negative (Negative); Leukocyte Esterase Ur Negative LEU/UL (Negative); Mucus Urine Rare /lpf; Nitrate Urine Negative (Negative); Protein Urine Negative (Negative); Specific Grav Ur 1.026 (1.001-1.035)
[2020-06-20 14:42] VITALS: BP 120/78; PULSE 70; O2SAT 100
== END 2020-06-20 15:13 | disposition home or self-care (01) ==
PROVIDERS: Emergency Provider Emergency Medicine; PCP Internal Medicine
DX: R55 Syncope and collapse (principal); J44.9 Chronic obstructive pulmonary disease, unspecified; E11.9 Type 2 diabetes mellitus without complications; G40.909 Epilepsy, unspecified, not intractable, without status epilepticus; K21.9 Gastro-esophageal reflux disease without esophagitis; E78.5 Hyperlipidemia, unspecified; I10 Essential (primary) hypertension; K58.9 Irritable bowel syndrome, unspecified; G47.30 Sleep apnea, unspecified; M19.90 Unspecified osteoarthritis, unspecified site; Z86.73 Personal history of transient ischemic attack (TIA), and cerebral infarction without residual deficits; Z87.891 Personal history of nicotine dependence; I44.0 Atrioventricular block, first degree; I44.4 Left anterior fascicular block; Z79.82 Long term (current) use of aspirin
CPT/HCPCS: 36415; 70450; 80053; 81001; 85025; 93005; 99284

== ENCOUNTER 2020-07-09 13:12 | Emergency (ER) | payer MEDICARE, MEDICAID, SELFPAY ==
[2020-07-09 14:11] VITALS: BP 109/56; PULSE 70; RESP 16; TEMP 35.6; O2SAT 99
--- NOTE | 2020-07-09 14:14 | ECG_ITS ---
Measurements Intervals [place] Rate: 65 P: 60 AL: 232 QRS: -65 QRSD: 126 T: 31 QT: 447 QTc: 467 Interpretive Statements SINUS RHYTHM WITH FIRST DEGREE AV BLOCK LEFT ANTERIOR FASCICULAR BLOCK INFERIOR INFARCT, AGE INDETERMINATE ABNORMAL ECG Electronically Signed On 07-09-2020 21:11:11 [employer] by Nelson Nguyen D.O.
[2020-07-09 15:00] VITALS: BP 113/52; PULSE 74; RESP 16; O2SAT 97
[2020-07-09 15:12] VITALS: BP 113/54; PULSE 72; RESP 15; O2SAT 95
[2020-07-09 16:00] VITALS: BP 99/62; PULSE 72; RESP 18; O2SAT 98
[2020-07-09 16:20] LABS: Basophils Percent Auto 0.6 % (0.2-1.2); Eosinophils Absolute Auto 0.2 K/mm3 (0-0.3); Eosinophils Percent Auto 3.2 % (0-4.4); Hematocrit 44.1 % (42.0-52.0); Hemoglobin 14.2 g/dL (14.0-18.0); Immature Granulocyte Percent A 1.5 % (0-0.5); Lymphocytes Absolute Auto 3.29 K/mm3 (0.9-3.2); Lymphocytes Percent Auto 48.2 % (18.3-44.2); Mean Corpuscular HGB Conc 32.2 g/dl (32-36); Mean Corpuscular Hemoglobin 31.2 pg (26-34); Mean Corpuscular Volume 96.9 fl (80-100); Mean Platelet Volume 9.2 fl (7.4-10.4); Monocytes Absolute Auto 0.6 K/mm3 (0.1-0.6); Monocytes Percent Auto 8.6 % (2.6-8.5); Neutrophils Absolute Auto 2.6 K/mm3 (1.3-6.7); Neutrophils Percent Auto 37.9 % (45.5-73.1); Platelet Count Result 165 k/mm3 (150-375); Red Blood Count 4.55 M/mm3 (4.6-6.20); White Blood Count 6.8 K/mm3 (4.5-10.0)
[2020-07-09 16:32] LABS: Alanine Aminotransferase 21 U/L (4-50); Albumin Level 4.1 g/dL (3.5-5.1); Alkaline Phosphatase 74 U/L (38-126); Anion Gap 8 mmol/L (8-16); Aspartate Amino Transferase 42 U/L (17-59); Bilirubin,Total 0.4 mg/dL (0.2-1.3); Blood Urea Nitrogen 17 mg/dL (9-20); Calcium 8.8 mg/dL (8.4-10.2); Carbon Dioxide 26 mmol/L (22-30); Chloride 107 mmol/L (98-107); Estimated CRCL calculation 89 ml/min; Estimated Glomerular Filt Rate > 60; Glucose 111 mg/dL (75-110); Potassium 4.1 mmol/L (3.4-5.0); Sodium 141 mmol/L (137-145)
[2020-07-09] MEDS: SODIUM CHLORIDE 0.9% IV 1,000 ML 999 ML IV CONT (16:35)
[2020-07-09 17:00] VITALS: BP 109/79; PULSE 78; RESP 18; O2SAT 97
--- NOTE | 2020-07-09 17:14 | ED.HA ---
HPI - Headache General Chief Complaint: Headache Stated Complaint: weakness Time Seen by Provider: 07/09/20 15:13 History of Present Illness HPI Narrative: Patient is a 55-year-old male who presents ER after having a syncopal event versus seizure. He was attempting to get money from an [employer]. This is a well-known occurrence for this patient has history of traumatic brain injury and seizures. He sees Dr. Sims and also Dr. Jose is his neurologist. Has Depakote prescribed. Patient denies having seizures on EEGs despite documentation of seizure disorder. Patient reports she started with having a rushing sound in his ear and then he will get lightheaded and then lose consciousness. Reports mild throbbing headache at this time which is typical for him to have after this episode. Related Data Home Medications Medication Instructions Recorded Confirmed Topamax 700 mg PO DAILY 04/04/19 divalproex [Depakote] 500 mg PO Q12H 04/04/19 11/05/19 nortriptyline 75 mg PO BID 04/04/19 albuterol sulfate 2 inh INHALATION Q4H PRN 11/05/19 11/05/19 aspirin 81 mg PO DAILY 11/05/19 11/05/19 atorvastatin 10 mg PO HS 11/05/19 11/05/19 citalopram 40 mg PO DAILY 11/05/19 11/05/19 enalapril maleate 5 mg PO DAILY 11/05/19 11/05/19 fenofibrate 160 mg PO DAILY 11/05/19 11/05/19 fluticasone propion-salmeterol 1 inh INHALATION BID 11/05/19 11/05/19 [Advair Diskus] Allergies Allergy/AdvReac Type Severity Reaction Status Date / Time phenobarbital AdvReac Unknown Other Verified 07/09/20 15:17 Review of Systems Review of Systems: All systems reviewed & are unremarkable except as noted in HPI and below Constitutional: Constitutional: Denies chills, Denies fever(s) and Denies weakness ENT: Denies nasal congestion and Denies sore throat Gastrointestinal: Gastrointestinal: Denies abdominal pain, Denies nausea and Denies vomiting Neurologic: Reports headache(s), Denies focal weakness and Denies numbness Comments: Loss of consciousness PMFSH Past Medical History Medical History (Updated 07/09/20 @ 18:05 by Fei Acevedo MD) Anxiety Arthritis Asthma Bronchitis COPD (chronic obstructive pulmonary disease) CVA (cerebral vascular accident) Depression Diabetes Epilepsy GERD (gastroesophageal reflux disease) GI bleed Head trauma Hyperlipidemia Hypertension IBS (irritable bowel syndrome) Sleep apnea Surgical History Surgical History History of open reduction and internal fixation (ORIF) procedure Hx of craniotomy temporal lobe resection Social History Social History Smoking status: Former smoker Gender identity (if verbalized by the patient): Male Exam Narrative: Exam Narrative: GENERAL: Well-appearing, well-nourished, and in no acute distress. HEAD: Normocephalic, atraumatic. EYES: PERRL and EOMI. CHEST: Clear to auscultation. No respiratory distress. HEART: Regular rate and rhythm. Normal peripheral pulses. ABDOMEN: Soft, nontender, nondistended. EXTREMITIES: Normal range of motion. No edema. SKIN: Warm, dry, no rash. NEURO: Clear speech, no facial droop. Alert and oriented x3. Course Course Emergency Course: Unremarkable evaluation. Patient eating drinking without issue. Hydrated. Discharge home. Vital Signs Vital signs: Vital Signs Temperature 96.0 F L 07/09/20 14:11 Pulse Rate 70 07/09/20 14:11 Respiratory Rate 16 07/09/20 14:11 Blood Pressure 109/56 L 07/09/20 14:11 Pulse Oximetry 99 07/09/20 14:11 Temperature 96.0 F L 07/09/20 14:11 Pulse Rate 78 07/09/20 17:00 Respiratory Rate 18 07/09/20 17:00 Blood Pressure 109/79 07/09/20 17:00 Pulse Oximetry 97 07/09/20 17:00 MDM - Headache Lab Data Result diagrams: 07/09/20 16:14 07/09/20 16:14 Labs: Lab Results 07/09/20 07/09/20 Range/Units 16:14 16:14 WBC 6.8 (4.5-10.0) K/mm3
[2020-07-09 18:53] VITALS: BP 114/74; PULSE 68; RESP 16; O2SAT 97
== END 2020-07-09 18:55 | disposition home or self-care (01) ==
PROVIDERS: Emergency Medicine; Emergency Provider Emergency Medicine; PCP Internal Medicine
DX: G40.909 Epilepsy, unspecified, not intractable, without status epilepticus (principal); J44.9 Chronic obstructive pulmonary disease, unspecified; E11.9 Type 2 diabetes mellitus without complications; K21.9 Gastro-esophageal reflux disease without esophagitis; E78.5 Hyperlipidemia, unspecified; I10 Essential (primary) hypertension; K58.9 Irritable bowel syndrome, unspecified; G47.30 Sleep apnea, unspecified; F32.9 Major depressive disorder, single episode, unspecified; F41.9 Anxiety disorder, unspecified; Z86.73 Personal history of transient ischemic attack (TIA), and cerebral infarction without residual deficits; Z87.820 Personal history of traumatic brain injury; Z87.891 Personal history of nicotine dependence; I44.0 Atrioventricular block, first degree; R94.31 Abnormal electrocardiogram [ECG] [EKG]; I44.4 Left anterior fascicular block
CPT/HCPCS: 36415; 80053; 85025; 93005; 96360; 99284; J7030

== ENCOUNTER 2020-07-15 15:10 | Emergency (ER) | payer MEDICARE, MEDICAID, SELFPAY ==
[2020-07-15 15:12] VITALS: BP 109/62; PULSE 72; RESP 18; TEMP 36.7; O2SAT 99
--- NOTE | 2020-07-15 15:22 | ECG_ITS ---
Measurements Intervals [place] Rate: 69 P: 51 NV: 236 QRS: -65 QRSD: 129 T: 32 QT: 442 QTc: 475 Interpretive Statements SINUS RHYTHM WITH FIRST DEGREE AV BLOCK RSR' IN V1 OR V2, CONSIDER RIGHT VENTRICULAR HYPERTROPHY OR RIGHT VCD LEFT ANTERIOR FASCICULAR BLOCK ABNORMAL ECG Electronically Signed On 07-15-2020 15:27:31 [employer] D[employer]ER OPERATOR by Nelson Nguyen D.O.
[2020-07-15 16:15] LABS: Basophils Percent Auto 0.6 % (0.2-1.2); Eosinophils Absolute Auto 0.2 K/mm3 (0-0.3); Eosinophils Percent Auto 3.1 % (0-4.4); Hematocrit 43.2 % (42.0-52.0); Immature Granulocyte Absolute 0.09 K/mm3 (0.00-0.031); Immature Granulocyte Percent A 1.3 % (0-0.5); Lymphocytes Absolute Auto 2.96 K/mm3 (0.9-3.2); Mean Corpuscular HGB Conc 32.4 g/dl (32-36); Mean Corpuscular Volume 95.8 fl (80-100); Mean Platelet Volume 9.2 fl (7.4-10.4); Monocytes Absolute Auto 0.7 K/mm3 (0.1-0.6); Monocytes Percent Auto 9.9 % (2.6-8.5); Neutrophils Percent Auto 43.1 % (45.5-73.1); Platelet Count Result 173 k/mm3 (150-375); Red Blood Count 4.51 M/mm3 (4.6-6.20); Red Cell Distribution Width 13.9 % (11.5-14.5); White Blood Count 7.1 K/mm3 (4.5-10.0)
--- NOTE | 2020-07-15 16:17 | ED.GENADULT ---
HPI - General Adult General Chief complaint: Syncope Stated complaint: syncope Source: patient and EMS Mode of arrival: EMS Limitations: no limitations History of Present Illness HPI narrative: Patient is a 55-year-old male who presents for EMS was at lunch having lunch when he had a few episodes of nodding off and was staring into space that lasted a few seconds patient has had similar occurrences in the past. Patient on arrival to emergency department is in no distress resting comfortably has no complaints notes he had felt fine this morning. Patient notes that he has been compliant with his medications. Patient denies any recent illness or other complaints or injury or trauma Related Data Home Medications Medication Instructions Recorded Confirmed Topamax 700 mg PO DAILY 04/04/19 divalproex [Depakote] 500 mg PO Q12H 04/04/19 11/05/19 nortriptyline 75 mg PO BID 04/04/19 albuterol sulfate 2 inh INHALATION Q4H PRN 11/05/19 11/05/19 aspirin 81 mg PO DAILY 11/05/19 11/05/19 atorvastatin 10 mg PO HS 11/05/19 11/05/19 citalopram 40 mg PO DAILY 11/05/19 11/05/19 enalapril maleate 5 mg PO DAILY 11/05/19 11/05/19 fenofibrate 160 mg PO DAILY 11/05/19 11/05/19 fluticasone propion-salmeterol 1 inh INHALATION BID 11/05/19 11/05/19 [Advair Diskus] Allergies Allergy/AdvReac Type Severity Reaction Status Date / Time phenobarbital AdvReac Unknown Other Verified 07/09/20 15:17 Review of Systems Review of Systems: All systems reviewed & are unremarkable except as noted in HPI and below PMFSH Past Medical History Medical History (Updated 07/15/20 @ 17:03 by Jonathan Whalen PA-C) Anxiety Arthritis Asthma Bronchitis COPD (chronic obstructive pulmonary disease) CVA (cerebral vascular accident) Depression Diabetes Epilepsy GERD (gastroesophageal reflux disease) GI bleed Head trauma Hyperlipidemia Hypertension IBS (irritable bowel syndrome) Sleep apnea Surgical History Surgical History History of open reduction and internal fixation (ORIF) procedure Hx of craniotomy temporal lobe resection Social History Social History Smoking status: Former smoker Gender identity (if verbalized by the patient): Male Exam Narrative: Exam Narrative: GENERAL: Well-appearing, obese, and in no acute distress. HEAD: Normocephalic, atraumatic. EYES: PERRLA and EOMI. ENT: Nares clear, no rhinorrhea or epistaxis. Mucous membranes moist. CHEST: Clear to auscultation. No respiratory distress. No wheezes rales or rhonchi HEART: Regular rate and rhythm. No murmur heard. Normal peripheral pulses. ABDOMEN: Soft, nontender, nondistended EXTREMITIES: Normal range of motion. No edema. SKIN: Warm, dry, no rash. NEURO: No focal deficits. Alert and oriented x3. Cranial nerves II through XII grossly intact. Normal speech and gait PSYCH: Normal mood and affect. Course Course Emergency Course: Patient in the room no distress aware of case findings treatment plan and diagnosis agreeing to follow-up as directed or to return if symptoms worsen or concerns Vital Signs Vital signs: Vital Signs Temperature 98.0 F 07/15/20 15:12 Pulse Rate 72 07/15/20 15:12 Respiratory Rate 18 07/15/20 15:12 Blood Pressure 109/62 07/15/20 15:12 Pulse Oximetry 99 07/15/20 15:12 Temperature 98.0 F 07/15/20 15:12 Pulse Rate 72 07/15/20 15:12 Respiratory Rate 18 07/15/20 15:12 Blood Pressure 109/62 07/15/20 15:12 Pulse Oximetry 99 07/15/20 15:12 Medical Decision Making MDM Narrative Medical decision making narrative: No high risk changes in the evaluation will be discharged home with plan follow-up with his primary care and specialist hemodynamically stable Vital Signs Vital Signs: Vital Signs Temperature 98.0 F 07/15/20 15:12 Pulse Rate 72 07/15/20 15:12 Respiratory Rate 18 07/15/20 15:12 B
[2020-07-15 16:26] LABS: Alanine Aminotransferase 25 U/L (4-50); Albumin Level 4.2 g/dL (3.5-5.1); Alkaline Phosphatase 82 U/L (38-126); Anion Gap 11 mmol/L (8-16); Aspartate Amino Transferase 55 U/L (17-59); Bilirubin,Total 0.4 mg/dL (0.2-1.3); Blood Urea Nitrogen 21 mg/dL (9-20); Calcium 8.6 mg/dL (8.4-10.2); Carbon Dioxide 20 mmol/L (22-30); Chloride 106 mmol/L (98-107); Estimated CRCL calculation 89 ml/min; Estimated Glomerular Filt Rate > 60; Glucose 109 mg/dL (75-110); Potassium 3.9 mmol/L (3.4-5.0); Sodium 137 mmol/L (137-145)
[2020-07-15 17:28] VITALS: BP 132/68; PULSE 68; RESP 18; O2SAT 99
== END 2020-07-15 17:29 | disposition home or self-care (01) ==
PROVIDERS: Emergency Medicine Emergency Medical Services; Emergency Provider Emergency Medicine; PCP Internal Medicine
DX: R55 Syncope and collapse (principal); F41.9 Anxiety disorder, unspecified; J44.9 Chronic obstructive pulmonary disease, unspecified; Z86.73 Personal history of transient ischemic attack (TIA), and cerebral infarction without residual deficits; G40.909 Epilepsy, unspecified, not intractable, without status epilepticus; E78.5 Hyperlipidemia, unspecified; I10 Essential (primary) hypertension; K58.9 Irritable bowel syndrome, unspecified; G47.30 Sleep apnea, unspecified; Z87.891 Personal history of nicotine dependence; I44.0 Atrioventricular block, first degree; I44.4 Left anterior fascicular block; R94.31 Abnormal electrocardiogram [ECG] [EKG]
CPT/HCPCS: 36415; 80053; 85025; 93005; 99283

== ENCOUNTER 2020-08-13 12:29 | Emergency (ER) | payer MEDICARE, MEDICAID, SELFPAY ==
[2020-08-13 12:50] VITALS: BP 124/77; PULSE 79; RESP 16; TEMP 36.6; O2SAT 98
--- NOTE | 2020-08-13 12:57 | ECG_ITS ---
Measurements Intervals [place] Rate: 79 P: 48 MT: 221 QRS: -71 QRSD: 120 T: 32 QT: 396 QTc: 456 Interpretive Statements SINUS RHYTHM WITH FIRST DEGREE AV BLOCK INCOMPLETE RIGHT BUNDLE BRANCH BLOCK LEFT ANTERIOR FASCICULAR BLOCK BASELINE WANDER- I, II, III ABNORMAL ECG Electronically Signed On 08-13-2020 13:03:29 CDT by Nelson Nguyen D.O.
[2020-08-13 13:06] LABS: Basophils Percent Auto 0.3 % (0.2-1.2); Eosinophils Absolute Auto 0.2 K/mm3 (0-0.3); Eosinophils Percent Auto 2.7 % (0-4.4); Hemoglobin 13.7 g/dL (14.0-18.0); Immature Granulocyte Absolute 0.03 K/mm3 (0.00-0.031); Immature Granulocyte Percent A 0.5 % (0-0.5); Lymphocytes Absolute Auto 2.49 K/mm3 (0.9-3.2); Lymphocytes Percent Auto 40.1 % (18.3-44.2); Mean Corpuscular HGB Conc 32.6 g/dl (32-36); Mean Corpuscular Hemoglobin 31.4 pg (26-34); Mean Corpuscular Volume 96.1 fl (80-100); Mean Platelet Volume 9.4 fl (7.4-10.4); Monocytes Absolute Auto 0.4 K/mm3 (0.1-0.6); Monocytes Percent Auto 6.9 % (2.6-8.5); Neutrophils Absolute Auto 3.1 K/mm3 (1.3-6.7); Neutrophils Percent Auto 49.5 % (45.5-73.1); Platelet Count Result 169 k/mm3 (150-375); Red Blood Count 4.37 M/mm3 (4.6-6.20); Red Cell Distribution Width 13.5 % (11.5-14.5); White Blood Count 6.2 K/mm3 (4.5-10.0)
[2020-08-13 13:23] LABS: Alanine Aminotransferase 20 U/L (4-50); Albumin Level 4.3 g/dL (3.5-5.1); Alkaline Phosphatase 66 U/L (38-126); Anion Gap 9 mmol/L (8-16); Aspartate Amino Transferase 38 U/L (17-59); Bilirubin,Total 0.3 mg/dL (0.2-1.3); Blood Urea Nitrogen 16 mg/dL (9-20); Calcium 9.2 mg/dL (8.4-10.2); Carbon Dioxide 22 mmol/L (22-30); Chloride 109 mmol/L (98-107); Estimated CRCL calculation 99 ml/min; Estimated Glomerular Filt Rate > 60; Glucose 113 mg/dL (75-110); Sodium 140 mmol/L (137-145)
[2020-08-13 13:35] LABS: Troponin I < 0.012 ng/mL (0.000-0.034)
--- NOTE | 2020-08-13 16:04 | ED.GENADULT ---
HPI - General Adult General Chief complaint: Syncope Stated complaint: syncopal episode Time Seen by Provider: 08/13/20 14:52 Source: patient and old records reviewed Mode of arrival: ambulatory Limitations: no limitations History of Present Illness HPI narrative: Patient is a 55-year-old male who sustained a syncopal episode at his primary care doctor's office before going in today patient on arrival to emergency department per EMS is resting comfortably in the room has no complaints has frequent history of syncope and is followed by neurology and primary care for this patient on arrival in the room in no distress Related Data Home Medications Medication Instructions Recorded Confirmed Topamax 700 mg PO DAILY 04/04/19 divalproex [Depakote] 500 mg PO Q12H 04/04/19 11/05/19 nortriptyline 75 mg PO BID 04/04/19 albuterol sulfate 2 inh INHALATION Q4H PRN 11/05/19 11/05/19 aspirin 81 mg PO DAILY 11/05/19 11/05/19 atorvastatin 10 mg PO HS 11/05/19 11/05/19 citalopram 40 mg PO DAILY 11/05/19 11/05/19 enalapril maleate 5 mg PO DAILY 11/05/19 11/05/19 fenofibrate 160 mg PO DAILY 11/05/19 11/05/19 fluticasone propion-salmeterol 1 inh INHALATION BID 11/05/19 11/05/19 [Advair Diskus] Allergies Allergy/AdvReac Type Severity Reaction Status Date / Time phenobarbital AdvReac Unknown Other Verified 07/09/20 15:17 Review of Systems Review of Systems: All systems reviewed & are unremarkable except as noted in HPI and below PMFSH Past Medical History Medical History (Updated 08/13/20 @ 16:10 by Jonathan Whalen PA-C) Anxiety Arthritis Asthma Bronchitis COPD (chronic obstructive pulmonary disease) CVA (cerebral vascular accident) Depression Diabetes Epilepsy GERD (gastroesophageal reflux disease) GI bleed Head trauma Hyperlipidemia Hypertension IBS (irritable bowel syndrome) Sleep apnea Surgical History Surgical History History of open reduction and internal fixation (ORIF) procedure Hx of craniotomy temporal lobe resection Social History Social History Smoking status: Former smoker Gender identity (if verbalized by the patient): Male Exam Narrative: Exam Narrative: GENERAL: Well-appearing, well-nourished, and in no acute distress. HEAD: Normocephalic, atraumatic. EYES: PERRLA and EOMI. ENT: Nares clear, no rhinorrhea or epistaxis. Mucous membranes moist. CHEST: Clear to auscultation. No respiratory distress. No wheezes rales or rhonchi HEART: Regular rate and rhythm. No murmur heard. EXTREMITIES: Normal range of motion. No edema. SKIN: Warm, dry, no rash. NEURO: No focal deficits. Alert and oriented x3. Cranial nerves II through XII grossly intact PSYCH: Normal mood and affect. Course Course Emergency Course: Hemodynamically stable ABCs and vital signs intact asymptomatic felt appropriate for outpatient reevaluation no high risk changes in the blood work patient is asymptomatic at this time Vital Signs Vital signs: Vital Signs Temperature 97.9 F 08/13/20 12:50 Pulse Rate 79 08/13/20 12:50 Respiratory Rate 16 08/13/20 12:50 Blood Pressure 124/77 08/13/20 12:50 Pulse Oximetry 98 08/13/20 12:50 Temperature 97.9 F 08/13/20 12:50 Pulse Rate 79 08/13/20 12:50 Respiratory Rate 16 08/13/20 12:50 Blood Pressure 124/77 08/13/20 12:50 Pulse Oximetry 98 08/13/20 12:50 Medical Decision Making MDM Narrative Medical decision making narrative: Patient in no distress resting comfortably will follow with his primary care and specialist afebrile nontoxic-appearing no distress no recent illness no concerning findings Vital Signs Vital Signs: Vital Signs Temperature 97.9 F 08/13/20 12:50 Pulse Rate 79 08/13/20 12:50 Respiratory Rate 16 08/13/20 12:50 Blood Pressure 124/77 08/13/20 12:50 Pulse Oximetry 98 08/13/20 12:50 Temperature 97
[2020-08-13 16:32] VITALS: BP 133/81; PULSE 85; RESP 20; O2SAT 98
== END 2020-08-13 16:34 | disposition home or self-care (01) ==
PROVIDERS: Emergency Provider Emergency Medicine; PCP Internal Medicine
DX: R55 Syncope and collapse (principal); J44.9 Chronic obstructive pulmonary disease, unspecified; E11.9 Type 2 diabetes mellitus without complications; G40.909 Epilepsy, unspecified, not intractable, without status epilepticus; K21.9 Gastro-esophageal reflux disease without esophagitis; I10 Essential (primary) hypertension; E78.5 Hyperlipidemia, unspecified; G47.30 Sleep apnea, unspecified; M19.90 Unspecified osteoarthritis, unspecified site; F41.9 Anxiety disorder, unspecified; F32.9 Major depressive disorder, single episode, unspecified; Z86.73 Personal history of transient ischemic attack (TIA), and cerebral infarction without residual deficits; Z87.891 Personal history of nicotine dependence; I44.0 Atrioventricular block, first degree; I45.2 Bifascicular block; Z79.82 Long term (current) use of aspirin
CPT/HCPCS: 36415; 80053; 84484; 85025; 93005; 99284

== ENCOUNTER 2020-08-18 13:51 | Emergency (ER) | payer MEDICARE, MEDICAID, SELFPAY ==
[2020-08-18 13:57] VITALS: BP 131/64; PULSE 76; RESP 18; TEMP 36.4; O2SAT 99
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
== END 2020-08-18 14:57 | disposition home or self-care (01) ==
PROVIDERS: Emergency Provider Emergency Medicine; PCP Internal Medicine
DX: G40.909 Epilepsy, unspecified, not intractable, without status epilepticus (principal); M19.90 Unspecified osteoarthritis, unspecified site; J45.909 Unspecified asthma, uncomplicated; J44.9 Chronic obstructive pulmonary disease, unspecified; E11.9 Type 2 diabetes mellitus without complications; K21.9 Gastro-esophageal reflux disease without esophagitis; E78.5 Hyperlipidemia, unspecified; I10 Essential (primary) hypertension; G47.30 Sleep apnea, unspecified
CPT/HCPCS: 99281

== ENCOUNTER 2020-09-13 19:14 | Emergency (ER) | payer MEDICARE, MEDICAID, SELFPAY ==
[2020-09-13 19:19] VITALS: PULSE 94; RESP 18; TEMP 36.9; O2SAT 99
--- NOTE | 2020-09-13 19:25 | ECG_ITS ---
Measurements Intervals [place] Rate: 69 P: -4 [place]: 226 QRS: 122 QRSD: 125 T: 29 QT: 433 QTc: 466 Interpretive Statements SINUS RHYTHM WITH FIRST DEGREE AV BLOCK RIGHT AXIS DEVIATION INTRAVENTRICULAR CONDUCTION DELAY POOR R WAVE PROGRESSION, ANTERIOR LEADS ABNORMAL ECG Electronically Signed On 09-13-2020 20:37:38 CDT by Nelson Nguyen D.O.
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
[2020-09-13 20:19] LABS: Basophils Percent Auto 0.6 % (0.2-1.2); Eosinophils Absolute Auto 0.3 K/mm3 (0-0.3); Eosinophils Percent Auto 4.1 % (0-4.4); Hematocrit 42.3 % (42.0-52.0); Hemoglobin 13.5 g/dL (14.0-18.0); Immature Granulocyte Absolute 0.09 K/mm3 (0.00-0.031); Immature Granulocyte Percent A 1.3 % (0-0.5); Lymphocytes Percent Auto 46.9 % (18.3-44.2); Mean Corpuscular HGB Conc 31.9 g/dl (32-36); Mean Corpuscular Hemoglobin 30.4 pg (26-34); Mean Corpuscular Volume 95.3 fl (80-100); Mean Platelet Volume 9.7 fl (7.4-10.4); Monocytes Absolute Auto 0.6 K/mm3 (0.1-0.6); Neutrophils Absolute Auto 2.7 K/mm3 (1.3-6.7); Neutrophils Percent Auto 38.1 % (45.5-73.1); Platelet Count Result 147 k/mm3 (150-375); Red Blood Count 4.44 M/mm3 (4.6-6.20); Red Cell Distribution Width 13.9 % (11.5-14.5)
[2020-09-13 20:30] LABS: Anion Gap 8 mmol/L (8-16); Blood Urea Nitrogen 16 mg/dL (9-20); Calcium 9.3 mg/dL (8.4-10.2); Carbon Dioxide 22 mmol/L (22-30); Chloride 109 mmol/L (98-107); Estimated CRCL calculation 99 ml/min; Estimated Glomerular Filt Rate > 60; Glucose 102 mg/dL (75-110); Potassium 4.2 mmol/L (3.4-5.0); Sodium 139 mmol/L (137-145)
[2020-09-13 20:42] LABS: Troponin I < 0.012 ng/mL (0.000-0.034)
[2020-09-13 20:44] LABS: Valproic Acid 63.6 ug/mL (50-120)
--- NOTE | 2020-09-13 21:00 | PC.NURSE ---
Pt refused IV. ERP notified.
== END 2020-09-13 20:57 | disposition home or self-care (01) ==
PROVIDERS: Emergency Provider Emergency Medicine; PCP Internal Medicine
DX: R55 Syncope and collapse (principal); M19.90 Unspecified osteoarthritis, unspecified site; J44.9 Chronic obstructive pulmonary disease, unspecified; E78.5 Hyperlipidemia, unspecified; I10 Essential (primary) hypertension; G40.909 Epilepsy, unspecified, not intractable, without status epilepticus; G47.30 Sleep apnea, unspecified; K21.9 Gastro-esophageal reflux disease without esophagitis; K58.9 Irritable bowel syndrome, unspecified; F32.9 Major depressive disorder, single episode, unspecified; F41.9 Anxiety disorder, unspecified; Z86.73 Personal history of transient ischemic attack (TIA), and cerebral infarction without residual deficits; Z87.891 Personal history of nicotine dependence; I44.0 Atrioventricular block, first degree; I45.9 Conduction disorder, unspecified; R94.31 Abnormal electrocardiogram [ECG] [EKG]
CPT/HCPCS: 36415; 80048; 80164; 84484; 85025; 93005; 99284

== ENCOUNTER 2020-10-04 14:09 | Emergency (ER) | payer MEDICARE, MEDICAID, SELFPAY ==
--- NOTE | ~2020-10-04 | CT_ITS ---
EXAMINATION: CT brain wo con DATE: 10/04/2020 16:01 INDICATION: Head injury. TECHNIQUE: Computed tomography (CT) of the head was performed without intravenous contrast. The mA wa s adjusted according to patient size. Iterative reconstruction technique was employed. The dose-lengt h product was 605.33 mGy-cm. COMPARISON: Head CT 06/20/2020 FINDINGS: There is chronic encephalomalacia involving the posterior right frontal lobe and right temp oral lobe. There are changes overlying craniotomy. There is no intracranial hemorrhage, acute infarct ion, or abnormal intracranial mass lesion. The ventricles are normal in size. The paranasal sinuses a re clear. The orbits are normal. There is a trace right mastoid effusion. IMPRESSION: 1. Chronic encephalomalacia involving right temporal lobe and posterior right frontal lobe. Reviewed, dictated and finalized at location B. IMPRESSION: 1. Chronic encephalomalacia involving right temporal lobe and posterior right f rontal lobe.
--- NOTE | ~2020-10-04 | XR_ITS ---
EXAMINATION: XR ankle RT min 3V, XR foot RT min 3V DATE: 10/04/2020 16:07 INDICATION: Posttraumatic bruising and inability to bear weight on the right foot and ankle. TECHNIQUE: 1. Anteroposterior, mortise, additional oblique and lateral view of the right ankle were obtained. 2. Dorsoplantar, two oblique and lateral views of the right foot were obtained. COMPARISON: None. FINDINGS: Alignment of the foot and ankle is normal. No fracture. Mild polyarticular osteoarthritis at the firs t metatarsophalangeal and multiple predominantly distal interphalangeal joints. Bunion with mild hype rtrophic change at the medial head of the first metatarsal. No ankle joint effusion. The soft tissues are unremarkable. IMPRESSION: 1. No acute osseous abnormality at the right foot or ankle. Reviewed, dictated and finalized at location A. IMPRESSION: 1. No acute osseous abnormality at the right foot or ankle.
--- NOTE | ~2020-10-04 | CT_ITS ---
EXAMINATION: CT facial & cervical spine wo DATE: 10/04/2020 16:01 INDICATION: Left jaw pain. Posterior neck pain. Injury. TECHNIQUE: Computed tomography (CT) of the maxillofacial region and cervical spine was performed with out intravenous contrast. Automated exposure control and iterative reconstruction technique were empl oyed. The dose-length product was 517.10 mGy-cm. COMPARISON: Cervical spine CT 12/15/2018 FINDINGS: MAXILLOFACIAL CT: There are changes of right-sided craniotomy. There is rightward deviation of the nasal septum. No fra cture. The orbits are normal. There is mild fat stranding in the right cheek and left face and neck, consistent with inflammation. CERVICAL SPINE CT: There is 9 degrees dextrocurvature of cervicothoracic spine. Vertebral body heights are normal. There is moderately decreased disc height at C3-C4 and mildly decreased disc height at C4-C5. The followin g disc levels are specifically discussed: C2-C3: There is mild bilateral uncovertebral joint osteoarthritis. There is mild right and moderate l eft facet joint osteoarthritis. There is mild left neural foraminal stenosis. There is no central can al stenosis. C3-C4: There is severe bilateral uncovertebral joint osteoarthritis. There is moderate bilateral face t joint osteoarthritis. There is mild bilateral neural foraminal stenosis. There is moderate central canal stenosis. C4-C5: There is mild lateral uncovertebral joint osteoarthritis. There is severe left facet joint ost eoarthritis. There is mild left neural foraminal stenosis. There is no central canal stenosis. C5-C6: There is mild bilateral uncovertebral joint osteoarthritis. There is mild bilateral facet join t osteoarthritis. There is mild bilateral neural foraminal stenosis. There is mild central canal sten osis. C6-C7: There is no uncovertebral joint osteoarthritis. There is no facet joint osteoarthritis. There is no neural foraminal stenosis. There is no central canal stenosis. C7-T1: There is no uncovertebral joint osteoarthritis. There is mild bilateral facet joint osteoarthr itis. There is no neural foraminal stenosis. There is no central canal stenosis. IMPRESSION: 1. No fracture. 2. Moderate cervical spondylosis. Reviewed, dictated and finalized at location B.
[2020-10-04 14:12] VITALS: BP 125/68; PULSE 89; RESP 16; TEMP 37.3; O2SAT 94
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
[2020-10-04] MEDS: HYDROcodone/acetaminophen (*CRX) 5-325 MG TABLET 1 TAB PO (17:20)
== END 2020-10-04 15:24 | disposition home or self-care (01) ==
PROVIDERS: Emergency Provider Nurse Practitioner; PCP Internal Medicine
DX: S93.401A Sprain of unspecified ligament of right ankle, initial encounter (principal); S96.911A Strain of unspecified muscle and tendon at ankle and foot level, right foot, initial encounter; J44.9 Chronic obstructive pulmonary disease, unspecified; G40.909 Epilepsy, unspecified, not intractable, without status epilepticus; K21.9 Gastro-esophageal reflux disease without esophagitis; E78.5 Hyperlipidemia, unspecified; I10 Essential (primary) hypertension; K58.9 Irritable bowel syndrome, unspecified; G47.30 Sleep apnea, unspecified; M19.90 Unspecified osteoarthritis, unspecified site; F32.9 Major depressive disorder, single episode, unspecified; F41.9 Anxiety disorder, unspecified; Z86.73 Personal history of transient ischemic attack (TIA), and cerebral infarction without residual deficits; Z87.891 Personal history of nicotine dependence; Z79.82 Long term (current) use of aspirin; Y04.2XXA Assault by strike against or bumped into by another person, initial encounter
CPT/HCPCS: 70450; 70486; 72125; 73610; 73630; 99284; A9270

== ENCOUNTER 2021-01-26 15:51 | Emergency (ER) | payer MEDICARE, MEDICAID, SELFPAY ==
[2021-01-26 16:07] VITALS: BP 132/77; PULSE 92; RESP 18; TEMP 36.1; O2SAT 98
[2021-01-26 17:05] LABS: Basophils Absolute Auto 0.1 K/mm3 (0.0-0.1); Basophils Percent Auto 0.6 % (0.2-1.2); Eosinophils Absolute Auto 0.3 K/mm3 (0-0.3); Eosinophils Percent Auto 3.8 % (0-4.4); Hematocrit 46.6 % (42.0-52.0); Hemoglobin 14.9 g/dL (14.0-18.0); Immature Granulocyte Absolute 0.07 K/mm3 (0.00-0.031); Immature Granulocyte Percent A 0.9 % (0-0.5); Lymphocytes Absolute Auto 2.96 K/mm3 (0.9-3.2); Lymphocytes Percent Auto 36.1 % (18.3-44.2); Mean Corpuscular Hemoglobin 28.7 pg (26-34); Mean Corpuscular Volume 89.8 fl (80-100); Mean Platelet Volume 9.5 fl (7.4-10.4); Monocytes Absolute Auto 0.8 K/mm3 (0.1-0.6); Monocytes Percent Auto 9.3 % (2.6-8.5); Neutrophils Percent Auto 49.3 % (45.5-73.1); Platelet Count Result 181 k/mm3 (150-375); Red Blood Count 5.19 M/mm3 (4.6-6.20); Red Cell Distribution Width 12.4 % (11.5-14.5); White Blood Count 8.2 K/mm3 (4.5-10.0)
[2021-01-26 17:18] LABS: Anion Gap 14 mmol/L (8-16); Blood Urea Nitrogen 19 mg/dL (9-20); CRP 0.6 mg/dL (<1.0); Calcium 9.6 mg/dL (8.4-10.2); Carbon Dioxide 22 mmol/L (22-30); Chloride 105 mmol/L (98-107); Estimated CRCL calculation 99 ml/min; Estimated Glomerular Filt Rate > 60; Glucose 134 mg/dL (65-110); Potassium 3.8 mmol/L (3.4-5.0); Sodium 141 mmol/L (137-145)
--- NOTE | 2021-01-26 17:40 | ED.GENADULT ---
HPI - General Adult General Chief complaint: Extremity Injury, Lower Stated complaint: foot swelling Time Seen by Provider: 01/26/21 16:22 Source: patient Mode of arrival: ambulatory Limitations: no limitations History of Present Illness HPI narrative: 55-year-old with a history of hypertension, diabetes, CVA, seizure disorder here with complaints of skin irritation and redness to the right foot for past few days. Patient denies any recent trauma. States that he seen his doctor few days ago for the same. He states that he now having itching and redness. He denies any fever or chills. Onset (ago): day(s) (2) Location: lower extremity (Right foot) Radiation: non-radiation Severity: mild Quality: other (Itching) Pain Consistency: constant Relieving factors: none Exacerbating factors: none Associated symptoms: denies other symptoms Treatments prior to arrival: none Related Data Home Medications Medication Instructions Recorded Confirmed Topamax 700 mg PO DAILY 04/04/19 divalproex [Depakote] 500 mg PO Q12H 04/04/19 11/05/19 albuterol sulfate 2 inh INHALATION Q4H PRN 11/05/19 11/05/19 aspirin 81 mg PO DAILY 11/05/19 11/05/19 atorvastatin 10 mg PO HS 11/05/19 11/05/19 enalapril maleate 5 mg PO DAILY 11/05/19 11/05/19 fenofibrate 160 mg PO DAILY 11/05/19 11/05/19 fluticasone propion-salmeterol 1 inh INHALATION BID 11/05/19 11/05/19 [Advair Diskus] Allergies Allergy/AdvReac Type Severity Reaction Status Date / Time phenobarbital AdvReac Unknown Other Verified 07/09/20 15:17 Review of Systems Review of Systems: All systems reviewed & are unremarkable except as noted in HPI and below Constitutional: Constitutional: Reports no additional constitutional complaints Eyes: Eyes: Reports no additional eye complaints ENT: Reports system reviewed and no additional complaints, except as documented Cardiovascular: Cardiovascular: Reports no additional cardiovascular complaints Respiratory: Respiratory: Reports no additional respiratory complaints Gastrointestinal: Gastrointestinal: Reports no additional gastrointestinal complaints Musculoskeletal: Musculoskeletal: Reports as per HPI Integumentary/Breasts: Skin/Breast: Reports as per HPI Neurologic: Reports system reviewed and no additional complaints, except as documented Psychiatric: Psychiatric: Reports no additional psychiatric complaints PMFSH Past Medical History Medical History (Updated 01/26/21 @ 18:17 by James Crowell MD) Anxiety Arthritis Asthma Bronchitis COPD (chronic obstructive pulmonary disease) CVA (cerebral vascular accident) Depression Diabetes Epilepsy GERD (gastroesophageal reflux disease) GI bleed Head trauma Hyperlipidemia Hypertension IBS (irritable bowel syndrome) Sleep apnea Surgical History Surgical History History of open reduction and internal fixation (ORIF) procedure Hx of craniotomy temporal lobe resection Social History Social History Smoking status: Former smoker Gender identity (if verbalized by the patient): Male Sexual Orientation (if Verbalized by the Patient): Straight or Heterosexual Exam Narrative: GENERAL: Well-appearing, well-nourished, and in no acute distress. HEAD: Normocephalic, atraumatic. EYES: PERRLA and EOMI. ENT: Nares clear, no rhinorrhea or epistaxis. Mucous membranes moist. NECK: Supple. CHEST: Clear to auscultation. No respiratory distress. HEART: Regular rate and rhythm. No murmur heard. Normal peripheral pulses. EXTREMITIES: Normal range of motion. No edema. Mild erythema on the dorsum of the right foot no soft tissue swelling or drainage SKIN: Warm, dry, no rash. NEURO: No focal deficits. Alert and oriented x3. PSYCH: Normal mood and affect. Course Course Emergency Course: Inform patient about her about lab work advised him to use antibiotic cream. And Vistaril
[2021-01-26 18:20] VITALS: BP 116/69; PULSE 78; RESP 18; O2SAT 97
== END 2021-01-26 18:21 | disposition home or self-care (01) ==
PROVIDERS: Emergency Provider Family Medicine; PCP Internal Medicine
DX: T63.481A Toxic effect of venom of other arthropod, accidental (unintentional), initial encounter (principal); L03.115 Cellulitis of right lower limb; I10 Essential (primary) hypertension; E11.9 Type 2 diabetes mellitus without complications; G40.909 Epilepsy, unspecified, not intractable, without status epilepticus; J44.9 Chronic obstructive pulmonary disease, unspecified; E78.5 Hyperlipidemia, unspecified; G47.30 Sleep apnea, unspecified; F41.9 Anxiety disorder, unspecified; F32.9 Major depressive disorder, single episode, unspecified; Z86.73 Personal history of transient ischemic attack (TIA), and cerebral infarction without residual deficits; Z79.82 Long term (current) use of aspirin; Z87.891 Personal history of nicotine dependence
CPT/HCPCS: 36415; 80048; 85025; 86140; 99283

== ENCOUNTER 2021-01-31 14:50 | Emergency (ER) | payer MEDICARE, MEDICAID, SELFPAY ==
[2021-01-31 14:53] VITALS: BP 107/68; PULSE 75; RESP 15; TEMP 36.8; O2SAT 98
[2021-01-31 14:57] VITALS: PULSE 75
--- NOTE | 2021-01-31 14:58 | ECG_ITS ---
Measurements Intervals [place] Rate: 74 P: 38 [place]: 214 QRS: -72 QRSD: 121 T: 55 QT: 431 QTc: 480 Interpretive Statements SINUS RHYTHM WITH FIRST DEGREE AV BLOCK LEFT ANTERIOR FASCICULAR BLOCK BASELINE WANDER- II, III ABNORMAL ECG Electronically Signed On 01-31-2021 15:06:01 CDT by Nelson Nguyen D.O.
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
[2021-01-31 15:53] LABS: Basophils Percent Auto 0.5 % (0.2-1.2); Eosinophils Absolute Auto 0.3 K/mm3 (0-0.3); Eosinophils Percent Auto 4.4 % (0-4.4); Hematocrit 44.9 % (42.0-52.0); Hemoglobin 14.5 g/dL (14.0-18.0); Immature Granulocyte Absolute 0.07 K/mm3 (0.00-0.031); Immature Granulocyte Percent A 0.9 % (0-0.5); Mean Corpuscular HGB Conc 32.3 g/dl (32-36); Mean Corpuscular Hemoglobin 29.4 pg (26-34); Mean Corpuscular Volume 91.1 fl (80-100); Mean Platelet Volume 10.1 fl (7.4-10.4); Monocytes Absolute Auto 0.7 K/mm3 (0.1-0.6); Monocytes Percent Auto 9.4 % (2.6-8.5); Neutrophils Absolute Auto 3.4 K/mm3 (1.3-6.7); Neutrophils Percent Auto 43.8 % (45.5-73.1); Platelet Count Result 170 k/mm3 (150-375); Red Blood Count 4.93 M/mm3 (4.6-6.20); Red Cell Distribution Width 12.7 % (11.5-14.5); White Blood Count 7.8 K/mm3 (4.5-10.0)
[2021-01-31 16:04] LABS: Alanine Aminotransferase 24 U/L (4-50); Albumin Level 4.4 g/dL (3.5-5.1); Alkaline Phosphatase 99 U/L (38-126); Anion Gap 14 mmol/L (8-16); Aspartate Amino Transferase 33 U/L (17-59); Bilirubin,Total 0.3 mg/dL (0.2-1.3); Blood Urea Nitrogen 16 mg/dL (9-20); Calcium 9.1 mg/dL (8.4-10.2); Carbon Dioxide 23 mmol/L (22-30); Chloride 103 mmol/L (98-107); Estimated CRCL calculation 110 ml/min; Estimated Glomerular Filt Rate > 60; Glucose 194 mg/dL (65-110); Potassium 3.5 mmol/L (3.4-5.0); Sodium 140 mmol/L (137-145)
[2021-01-31 16:16] LABS: Troponin I < 0.012 ng/mL (0.000-0.034)
[2021-01-31 17:00] VITALS: BP 118/74; PULSE 80; RESP 18; O2SAT 97
--- NOTE | 2021-01-31 17:39 | PC.NURSE ---
1700-pt has taken all monitors off requesting d/c home. provider notified
[2021-01-31 17:53] VITALS: RESP 16
== END 2021-01-31 17:54 | disposition home or self-care (01) ==
PROVIDERS: Physician Assistant Medical; Emergency Provider Emergency Medicine; PCP Internal Medicine
DX: R55 Syncope and collapse (principal); I10 Essential (primary) hypertension; J44.9 Chronic obstructive pulmonary disease, unspecified; E11.9 Type 2 diabetes mellitus without complications; G40.909 Epilepsy, unspecified, not intractable, without status epilepticus; E78.5 Hyperlipidemia, unspecified; G47.30 Sleep apnea, unspecified; K21.9 Gastro-esophageal reflux disease without esophagitis; M19.90 Unspecified osteoarthritis, unspecified site; F41.9 Anxiety disorder, unspecified; Z86.73 Personal history of transient ischemic attack (TIA), and cerebral infarction without residual deficits; Z79.82 Long term (current) use of aspirin; Z87.891 Personal history of nicotine dependence; I44.0 Atrioventricular block, first degree; I44.4 Left anterior fascicular block
CPT/HCPCS: 36415; 80053; 84484; 85025; 93005; 99284

== ENCOUNTER 2021-04-07 20:04 | Emergency (ER) | payer MEDICARE, MEDICAID, SELFPAY ==
[2021-04-07] VITALS (10 sets, daily range): BP systolic 112–148; BP diastolic 76–97; PULSE 66–72; RESP 12–18; TEMP 36.5; O2SAT 97–100
--- NOTE | ~2021-04-07 | XR_ITS ---
EXAMINATION: XR chest 1V portable 04/07/2021 20:27 INDICATION: Syncope. Hypertension. Asthma. PROCEDURE: AP portable chest COMPARISON: Comparison to multiple prior studies sequentially, with oldest reviewed study dated 11/30. FINDINGS: Chronic left basilar atelectasis/scarring. No acute focal pneumonia, edema, pleural effusio n or pneumothorax. The cardiomediastinal silhouette is within normal limits. There are no pleural ef fusions. There is no pneumothorax suspected. IMPRESSION: 1: NO ACUTE CARDIOPULMONARY DISEASE. Reviewed, dictated and finalized at location A. INITIO ETL DEVELOPER
--- NOTE | ~2021-04-07 | CT_ITS ---
EXAMINATION: CT brain wo con DATE: 04/07/2021 20:49 INDICATION: Syncope. TECHNIQUE: Computed tomography (CT) of the head was performed without intravenous contrast. The dose- length product was 681.00 mGy-cm. Automated exposure control and iterative reconstruction technique w ere employed. COMPARISON: CT dated 10/04/2020 FINDINGS: There is chronic encephalomalacia of the right temporal lobe. Generalized atrophy. There ar e scattered mild periventricular and subcortical white matter changes, most likely related to small v essel ischemic disease (microangiopathy). No acute intracranial hemorrhage, infarction, mass or mass effect. Basilar cisterns are patent. There is a right parietal craniotomy defect. Paranasal sinuses a nd mastoids are pneumatized. No ventriculomegaly or midline shift. IMPRESSION: 1. No acute intracranial abnormality. 2: Chronic encephalomalacia of the right temporal lobe. Reviewed, dictated and finalized at location A. GER OPERATOR
--- NOTE | 2021-04-07 20:18 | ECG_ITS ---
Measurements Intervals [place] Rate: 68 P: 41 OR: 223 QRS: -61 QRSD: 124 T: 51 QT: 423 QTc: 452 Interpretive Statements SINUS RHYTHM WITH FIRST DEGREE AV BLOCK INCOMPLETE RIGHT BUNDLE BRANCH BLOCK LEFT ANTERIOR FASCICULAR BLOCK ABNORMAL ECG Electronically Signed On 04-07-2021 22:04:40 AIX ARCHITECT by Nelson Nguyen D.O.
[2021-04-07 20:22] LABS: Glucose Point of Care 167 mg/dl (65-105)
--- NOTE | 2021-04-07 20:38 | ED.SYNCOPE ---
HPI - Syncope General Chief Complaint: Syncope Stated Complaint: syncope Time Seen by Provider: 04/07/21 20:07 Source: patient, EMS and RN notes reviewed Mode of arrival: EMS Limitations: no limitations History of Present Illness HPI narrative: This is 56 year old male with history of hypertension, recurrent syncopal episodes, and remote history of seizures who presents for evaluation of syncopal episode. He states he was eating at [employer] when he developed ringing in his ears and he passed. Patient states he was able to call 911 on his own. EMS states patient was found on the floor and he was able to ambulate at the scene. He states this is his norm and he feels fine. He denies chest pain, sob, nausea, vomiting, headache, seizures, abdominal pain. He states he is compliant with his medications. Related Data Home Medications Medication Instructions Recorded Confirmed Topamax 700 mg PO DAILY 04/04/19 02/17/21 divalproex [Depakote] 500 mg PO Q12H 04/04/19 02/17/21 albuterol sulfate 2 inh INHALATION Q4H PRN 11/05/19 02/17/21 aspirin 81 mg PO DAILY 11/05/19 02/17/21 atorvastatin 10 mg PO HS 11/05/19 02/17/21 enalapril maleate 5 mg PO DAILY 11/05/19 02/17/21 fenofibrate 160 mg PO DAILY 11/05/19 02/17/21 fluticasone propion-salmeterol 1 inh INHALATION BID 11/05/19 02/17/21 [Advair Diskus] Allergies Allergy/AdvReac Type Severity Reaction Status Date / Time phenobarbital AdvReac Unknown Other Verified 02/17/21 14:39 Review of Systems Review of Systems: All systems reviewed & are unremarkable except as noted in HPI and below PMFSH Past Medical History Medical History (Updated 04/08/21 @ 00:00 by Background Daemon) Anxiety Arthritis Asthma Bronchitis COPD (chronic obstructive pulmonary disease) CVA (cerebral vascular accident) Depression Diabetes Epilepsy GERD (gastroesophageal reflux disease) GI bleed Head trauma Hyperlipidemia Hypertension IBS (irritable bowel syndrome) Sleep apnea Surgical History Surgical History History of open reduction and internal fixation (ORIF) procedure Hx of craniotomy temporal lobe resection Social History Social History Smoking status: Former smoker Gender identity (if verbalized by the patient): Male Sexual Orientation (if Verbalized by the Patient): Straight or Heterosexual Exam Const: General: no acute distress and alert Orientation/consciousness: patient oriented x3 HENMT: Head: normocephalic and atraumatic Face and sinus: face symmetric Mouth: Yes Normal oral and palatal mucosa present, Yes lip normal, Yes oropharynx normal and Yes moist mucous membranes Throat: posterior oropharynx normal, tonsils normal and uvula midline Eyes: Pupils: Equal, round and reactive pupils present EOM: EOMs intact bilaterally Resp: Effort & Inspection: normal respiratory effort and no retractions Auscultation: clear to auscultation bilaterally Cardio: Rate: regular rate Rhythm: regular rhythm Heart sounds: no murmurs GI: Auscultation: normal bowel sounds Skin: General skin exam: normal color Rashes: no rashes Neuro: General: patient oriented x3, moves all extremities and CN's II-XI intact bilaterally Psych: Mental Status: mental status grossly normal Affect: normal affect Course Reevaluation(s) Reevaluation #1: I discussed cased with patient labs are unremarkable. He has no complaints. He is stable for discharge as he is back to baseline. Date: 04/07/21 Time: 23:20 Vital Signs Vital signs: Vital Signs Temperature 97.7 F 04/07/21 20:02 Pulse Rate 69 04/07/21 20:02 Respiratory Rate 18 04/07/21 20:02 Blood Pressure 132/86 04/07/21 20:02 Pulse Oximetry 98 04/07/21 20:02 Temperature 97.7 F 04/07/21 20:02 Pulse Rate 69 04/07/21 23:42 Respiratory Rate 16 04/07/21 23:42 Blood Pressure 122/76 04/07/21 23:42 Pulse Oxi
[2021-04-07 21:43] LABS: Basophils Absolute Auto 0.1 K/mm3 (0.0-0.1); Basophils Percent Auto 0.8 % (0.2-1.2); Eosinophils Absolute Auto 0.2 K/mm3 (0-0.3); Eosinophils Percent Auto 2.7 % (0-4.4); Hematocrit 45.3 % (42.0-52.0); Hemoglobin 14.8 g/dL (14.0-18.0); Immature Granulocyte Absolute 0.08 K/mm3 (0.00-0.031); Lymphocytes Absolute Auto 3.57 K/mm3 (0.9-3.2); Lymphocytes Percent Auto 45.5 % (18.3-44.2); Mean Corpuscular HGB Conc 32.7 g/dl (32-36); Mean Corpuscular Hemoglobin 28.5 pg (26-34); Mean Corpuscular Volume 87.1 fl (80-100); Mean Platelet Volume 9.5 fl (7.4-10.4); Monocytes Absolute Auto 0.7 K/mm3 (0.1-0.6); Monocytes Percent Auto 8.5 % (2.6-8.5); Neutrophils Absolute Auto 3.3 K/mm3 (1.3-6.7); Neutrophils Percent Auto 41.5 % (45.5-73.1); Platelet Count Result 176 k/mm3 (150-375); Red Cell Distribution Width 13.9 % (11.5-14.5); White Blood Count 7.9 K/mm3 (4.5-10.0)
[2021-04-07 21:53] LABS: Alanine Aminotransferase 23 U/L (4-50); Albumin Level 4.4 g/dL (3.5-5.1); Alkaline Phosphatase 102 U/L (38-126); Anion Gap 10 mmol/L (8-16); Aspartate Amino Transferase 31 U/L (17-59); Bilirubin,Total 0.3 mg/dL (0.2-1.3); Blood Urea Nitrogen 15 mg/dL (9-20); Calcium 9.2 mg/dL (8.4-10.2); Carbon Dioxide 24 mmol/L (22-30); Chloride 102 mmol/L (98-107); Estimated Glomerular Filt Rate > 60; Glucose 142 mg/dL (65-110); Magnesium 2.1 mg/dL (1.6-2.3); Potassium 4.1 mmol/L (3.4-5.0); Sodium 136 mmol/L (137-145)
[2021-04-07 21:56] LABS: Partial Thromboplastin Time 24.8 SECONDS (22.3-36.8); Prothrombin Time 12.6 Seconds (11.1-14.7)
[2021-04-07 22:04] LABS: Valproic Acid 70.9 ug/mL (50-120)
[2021-04-07 22:05] LABS: Troponin I < 0.012 ng/mL (0.000-0.034)
[2021-04-07 22:39] LABS: Glucose Point of Care 128 mg/dl (65-105)
== END 2021-04-07 23:46 | disposition home or self-care (01) ==
PROVIDERS: Emergency Provider General Practice; PCP Internal Medicine
DX: R55 Syncope and collapse (principal); J44.9 Chronic obstructive pulmonary disease, unspecified; E11.9 Type 2 diabetes mellitus without complications; E78.5 Hyperlipidemia, unspecified; I10 Essential (primary) hypertension; G40.909 Epilepsy, unspecified, not intractable, without status epilepticus; K21.9 Gastro-esophageal reflux disease without esophagitis; K58.9 Irritable bowel syndrome, unspecified; G47.30 Sleep apnea, unspecified; M19.90 Unspecified osteoarthritis, unspecified site; Z86.73 Personal history of transient ischemic attack (TIA), and cerebral infarction without residual deficits; Z87.891 Personal history of nicotine dependence; I44.0 Atrioventricular block, first degree; I45.2 Bifascicular block; G93.89 Other specified disorders of brain; Z79.82 Long term (current) use of aspirin
CPT/HCPCS: 36415; 70450; 71045; 80053; 80164; 82948; 83735; 84484; 85025; 85610; 85730; 93005; 99284

== ENCOUNTER 2021-04-29 21:43 | Emergency (ER) | payer MEDICARE, MEDICAID, SELFPAY ==
[2021-04-29 22:15] VITALS: BP 140/82; PULSE 73; RESP 16; TEMP 36.2; O2SAT 99
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
--- NOTE | 2021-04-29 23:42 | PC.NURSE ---
pt. up to desk stating he is leaving. pt. amb out of ed w/ steady gait.
[2021-04-30 10:28] LABS: Glucose Point of Care 142 mg/dl (65-105)
== END 2021-04-29 23:51 | disposition left against medical advice (07) ==
LOC: ANHED 23:49
PROVIDERS: Emergency Provider Emergency Medicine
DX: R42 Dizziness and giddiness (principal)
CPT/HCPCS: 82948; 99199

== ENCOUNTER 2021-05-14 12:22 | Observation (INO) | payer MEDICARE, MEDICAID, SELFPAY ==
[2021-05-14] VITALS (34 sets, daily range): BP systolic 93–155; BP diastolic 55–92; PULSE 79–111; RESP 12–26; TEMP 37.3–39.2; O2SAT 94–100; BMI 32.9
--- NOTE | ~2021-05-14 | CT_ITS ---
EXAMINATION: CT brain wo con EXAM DATE: 05/14/2021 16:09 INDICATION: Altered mental status. TECHNIQUE: Spiral CT of the head was performed without contrast. Axial, coronal and sagittal images were reviewed. The dose-length product (DLP) for this examination was 681.00 mGy-cm. The exposure w as tailored according to patient size, and iterative reconstruction (ASIR) was used as additional dos e reduction technique. Comparison is made to prior examination from 04/07/2021. FINDINGS: Moderate-sized old right temporal lobe region of encephalomalacia unchanged. There is overl ron craniotomy. Mild cerebral atrophy. There is no acute intraparenchymal hemorrhage. No evidence o f intraparenchymal brain mass lesion. No evidence of acute infarction. There is no mass effect or m idline shift. The ventricles are normal in size. There are no extra-axial collections. There are n o acute calvarial fractures. The orbits are unremarkable. Soft tissue is unremarkable. The visualiz ed sinuses and mastoid air cells are well aerated. IMPRESSION: 1. Right temporal craniotomy, moderate-sized underlying encephalomalacia. Reviewed, dictated and finalized at location A. NETWORK ENGINEER
--- NOTE | ~2021-05-14 | XR_ITS ---
EXAMINATION: XR chest 1V EXAM DATE: 05/14/2021 16:03 INDICATION: Fall. TECHNIQUE: Portable AP frontal chest x-ray was obtained. Comparison is made to prior examination from 04/07/2021. FINDINGS: Cardiac monitoring device. The lungs are clear. There are no pleural effusions. The cardi omediastinal silhouette is within normal limits. There is no pneumothorax suspected. The bones and soft tissues are unremarkable. IMPRESSION: No acute cardiopulmonary findings. Reviewed, dictated and finalized at location A. HER SETTER
--- NOTE | ~2021-05-14 | XR_ITS ---
EXAMINATION: XR shoulder LT min 2V EXAM DATE: 05/14/2021 16:03 INDICATION: Initial encounter following injury, with pain of the left shoulder. TECHNIQUE: The following left shoulder projections obtained: frontal projection with internal rotatio n, frontal projection with external rotation, Grashey, and scapular Y view (4+ views). There is no p rior study for comparison. FINDINGS: No evidence of left shoulder rotator cuff calcific tendinosis. There is mild glenohumera l joint, moderate acromioclavicular joint primary osteoarthritis. There are no acute fractures or dis locations identified. There is no subcutaneous gas. The soft tissue is unremarkable. There is car diac monitoring device. IMPRESSION: 1. XR shoulder LT min 2V exam without acute osseous findings. Reviewed, dictated and finalized at location A. D SERVICE CONSULTANT
--- NOTE | 2021-05-14 15:21 | ECG_ITS ---
Measurements Intervals [place] Rate: 108 P: 58 AL: 205 QRS: 252 QRSD: 118 T: 20 QT: 359 QTc: 482 Interpretive Statements SINUS TACHYCARDIA BORDERLINE AV CONDUCTION DELAY RIGHT AXIS DEVIATION RIGHT BUNDLE BRANCH BLOCK INFERIOR INFARCT, AGE INDETERMINATE ABNORMAL ECG Electronically Signed On 05-14-2021 16:48:14 COOK HELPER MEAT by Nelson Nguyen D.O.
--- NOTE | 2021-05-14 15:37 | ED.WEAKNESS ---
HPI - Weakness General Chief complaint: Weakness Stated complaint: cant walk right after covid booster Time Seen by Provider: 05/14/21 15:21 Source: RN notes reviewed History of Present Illness HPI Narrative: Patient presents emergency department from home for weakness. Patient states he is been having weakness for the past 4 days states is been associated with a cough this been nonproductive as well as rhinorrhea. He states that he fell last night onto his left shoulder with pain in his left shoulder since that time he states that whenever he gets up to ambulate he is stumbling and not walking correctly he states that although he was sick he did get the Covid booster yesterday he denies any chest pain shortness of breath abdominal pain nausea or vomiting denies any other injury from the fall except for left shoulder pain Related Data Home Medications Medication Instructions Recorded Confirmed Topamax 700 mg PO DAILY 04/04/19 02/17/21 divalproex [Depakote] 500 mg PO Q12H 04/04/19 02/17/21 albuterol sulfate 2 inh INHALATION Q4H PRN 11/05/19 02/17/21 aspirin 81 mg PO DAILY 11/05/19 02/17/21 atorvastatin 10 mg PO HS 11/05/19 02/17/21 enalapril maleate 5 mg PO DAILY 11/05/19 02/17/21 fenofibrate 160 mg PO DAILY 11/05/19 02/17/21 fluticasone propion-salmeterol 1 inh INHALATION BID 11/05/19 02/17/21 [Advair Diskus] Allergies Allergy/AdvReac Type Severity Reaction Status Date / Time phenobarbital AdvReac Unknown Other Verified 05/14/21 15:42 Review of Systems Review of Systems: Gen.: D reports fever Eyes: Denies eye pain or visual change ENT: Reports sinus congestion Respiratory: Denies shortness of breath ports cough CV: Denies chest pain or palpitations GI: Denies abdominal pain nausea, emesis or diarrhea denies burning, urgency, frequency or hematuria Musculoskeletal: Denies back pain or muscle pain Neuro: See HPI Skin: Denies rash Except as documented, all other systems reviewed and negative [facility] Past Medical History Medical History (Updated 05/14/21 @ 18:40 by Danial Barajas DO) Anxiety Arthritis Asthma Bronchitis COPD (chronic obstructive pulmonary disease) CVA (cerebral vascular accident) Depression Diabetes Epilepsy GERD (gastroesophageal reflux disease) GI bleed Head trauma Hyperlipidemia Hypertension IBS (irritable bowel syndrome) Sleep apnea Surgical History Surgical History History of open reduction and internal fixation (ORIF) procedure Hx of craniotomy temporal lobe resection Social History Social History Smoking status: Former smoker Gender identity (if verbalized by the patient): Male Sexual Orientation (if Verbalized by the Patient): Straight or Heterosexual Exam Narrative: APPEARANCE: No acute distress, nontoxic, resting in bed EYES: EOMI, PERRL HEENT: Normocephalic, atraumatic, OMM RESPIRATORY: No respiratory distress Clear to auscultation bilaterally with no rhonchi wheezing or rales. CARDIOVASCULAR: Regular rate and rhythm without murmurs rubs or gallops. ABDOMINAL: Soft, nontender, nondistended, no rebound or guarding MUSCULOSKELETAl: Moves all extremities. No clubbing, cyanosis or edema. Tender palpation over the left anterior lateral shoulder pain with flexion abduction greater than 45 degrees no tenderness over left elbow wrist radial pulse 2+ neurovascular intact NEURO: Awake and alert x 3. Following commands, speech normal, no facial droop muscle strength 5 out of 5 in bilateral upper extremities and 4-5 in bilateral lower SKIN:: Warm, dry. No rashes lesions or abrasions PSYCHIATRIC: Normal affect/mood, Course Course Emergency Course: Patient with road test in ED unsteady on his feet with stumbling gait several times needs to be caught by myself or nurse will admit at this time states he just feels like his legs are weak patient states otherwise he feels
[2021-05-14] MEDS: SODIUM CHLORIDE 0.9% IV 1,000 ML 999 ML IV CONT ×2 (15:40→17:58)
[2021-05-14 16:01] LABS: Basophils Percent Auto 0.6 % (0.2-1.2); Eosinophils Percent Auto 0.6 % (0-4.4); Hematocrit 47.4 % (42.0-52.0); Hemoglobin 15.4 g/dL (14.0-18.0); Immature Granulocyte Absolute 0.07 K/mm3 (0.00-0.031); Lymphocytes Absolute Auto 1.11 K/mm3 (0.9-3.2); Lymphocytes Percent Auto 15.6 % (18.3-44.2); Mean Corpuscular HGB Conc 32.5 g/dl (32-36); Mean Corpuscular Hemoglobin 28.4 pg (26-34); Mean Corpuscular Volume 87.5 fl (80-100); Mean Platelet Volume 9.5 fl (7.4-10.4); Monocytes Absolute Auto 0.8 K/mm3 (0.1-0.6); Monocytes Percent Auto 10.5 % (2.6-8.5); Neutrophils Absolute Auto 5.1 K/mm3 (1.3-6.7); Neutrophils Percent Auto 71.7 % (45.5-73.1); Platelet Count Result 171 k/mm3 (150-375); Red Blood Count 5.42 M/mm3 (4.6-6.20); Red Cell Distribution Width 14.1 % (11.5-14.5); White Blood Count 7.1 K/mm3 (4.5-10.0)
[2021-05-14 16:12] LABS: Partial Thromboplastin Time 25.2 SECONDS (22.3-36.8); Prothrombin Time 12.9 Seconds (11.1-14.7)
[2021-05-14 16:14] LABS: Lactic Acid Reflex 1.1 mmol/L (0.7-2.1)
[2021-05-14 16:16] LABS: Alanine Aminotransferase 21 U/L (4-50); Albumin Level 4.7 g/dL (3.5-5.1); Alkaline Phosphatase 111 U/L (38-126); Anion Gap 15 mmol/L (8-16); Aspartate Amino Transferase 33 U/L (17-59); Bilirubin,Total 0.5 mg/dL (0.2-1.3); Blood Urea Nitrogen 18 mg/dL (9-20); Calcium 9.6 mg/dL (8.4-10.2); Carbon Dioxide 20 mmol/L (22-30); Chloride 101 mmol/L (98-107); Estimated CRCL calculation 88 ml/min; Estimated Glomerular Filt Rate > 60; Glucose 145 mg/dL (65-110); Potassium 3.9 mmol/L (3.4-5.0); Sodium 136 mmol/L (137-145)
[2021-05-14 16:51] LABS: Add Urine Microscopic? YES; Appearance Urine Clear (Clear); Bilirubin Urine Negative (Negative); Blood Urine Negative (Negative); Color Urine Yellow (Yellow); Glucose Urine UA 3+ mg/dL (Negative); Ketones Urine 1+ mg/dL (Negative); Leukocyte Esterase Ur Negative LEU/UL (Negative); Mucus Urine Rare /lpf; Nitrate Urine Negative (Negative); Protein Urine Negative (Negative); RBC Urine 0-2 /hpf (0-2); Specific Grav Ur 1.027 (1.001-1.035); Urobilinogen Urine Negative mg/dL (<2.0); WBC Urine 0-3 /hpf
[2021-05-14 18:17] LABS: Valproic Acid 70.6 ug/mL (50-120)
--- NOTE | 2021-05-14 22:18 | ADMGEN ---
This patient, Dennis Branch, was admitted to [address] [facility] Surg Room 317-01. Patient/family oriented to hospital policies and general routines including ID bracelet, bed and alarms, visiting hours, pain management, procedures, bathroom and other care routines, personal items, smoking policy, room service/diet, and visiting hours. Information on how to activate the Rapid Response Team has been discussed. Patient/Family are encouraged to report perceived risks to care and to ask questions if they do not understand what they are told or what they should do.
[2021-05-15] MEDS: SODIUM CHLORIDE 0.9% IV 1,000 ML 125 ML IV CONT ×2 (02:54→17:14)
--- NOTE | 2021-05-15 04:42 | PM.IMHP ---
H&P: HPI History of Present Illness Date/Time: 05/15/21 04:42 Chief Complaint: Weakness and not walking right. 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 The patient reports for the last fiber 6 days he has been having cough that was intermittently productive of yellow sputum. The cough was associated with chest discomfort at the time of coughing. He has also had some rhinorrhea but denies any nasal congestion. With his weakness he has been more unsteady on his feet and fell landing on his left shoulder. He is stumbling. He cannot tell me exactly how high his fever was but he was definitely having fevers at home. He denies any nausea or vomiting. He has had decreased appetite. He denies any dysuria, hematuria change in urinary frequency. He has been having normal stools. Despite already having a fever and cough the patient decided that he would still go to have his COVID vaccine 2 days ago. The ER staff did try to ambulate the patient in the ER and the patient was unsteady on his feet. The patient denies having any abdominal pain into his abdomen is palpated. He reports that always hurts when someone palpates his abdomen. His abdomen is not any more distended than baseline. Review of Systems Review of Systems: 12 systems were reviewed with pertinent positives and negatives per HPI. Except as documented in the HPI, all other systems were reviewed and are negative. [facility] Past Medical History Medical History (Updated 05/15/21 @ 09:18 by Chiquita Sheth DO) Anxiety Arthritis Asthma Bronchitis COPD (chronic obstructive pulmonary disease) CVA (cerebral vascular accident) Depression Diabetes Epilepsy GERD (gastroesophageal reflux disease) GI bleed Head trauma Hyperlipidemia Hypertension IBS (irritable bowel syndrome) Sleep apnea Surgical History Surgical History History of open reduction and internal fixation (ORIF) procedure Hx of craniotomy temporal lobe resection Family History Family History Mother Hypertension Congestive heart failure Social History Social History (Updated 05/15/21 @ 09:09 by Chiquita Sheth DO) Social History: The patient is single and never had any children. He lives alone. He is on disability. Surrogate decision maker: Sophia Pozo (mother) Smoking status: Never smoker Alcohol intake: never Substance use: never Gender identity (if verbalized by the patient): Male Sexual Orientation (if Verbalized by the Patient): Straight or Heterosexual Spiritual care concerns: No Meds Home Medications and Allergies Home Medications Medication Instructions Recorded Confirmed Type Topamax 400 mg PO DAILY 04/04/19 05/14/21 History divalproex [Depakote] 500 mg PO Q12H 04/04/19 05/14/21 History albuterol sulfate 2 inh INHALATION Q4H PRN 11/05/19 05/14/21 History aspirin 81 mg PO DAILY 11/05/19 05/14/21 History atorvastatin 10 mg PO HS 11/05/19 05/14/21 History enalapril maleate 5 mg PO DAILY 11/05/19 05/14/21 History fenofibrate 160 mg PO DAILY 11/05/19 05/14/21 History fluticasone propion-salmeterol 1 inh INHALATION BID 11/05/19 05/14/21 History [Advair Diskus] loratadine [Claritin] 10 mg PO DAILY PRN #10 tablet 04/05/20 05/14/21 Rx promethazine 25 mg PO Q6H PRN #7 tablet 04/05/20 05/14/21 Rx ibuprofen 800 mg PO TID PRN #20 tablet 10/04/20 05/14/21 Rx citalopram 40 mg PO DAILY 05/14/21 05/14/21 History cyclobenzaprine 10 mg PO BID 05/14/21 05/14/21 History famotidine [Pepcid] 20 mg PO DAILY 05/14/21 05/14/21 History nortriptyline 75 mg PO BID 05/14/21 05/14/21 History Allergies Allergy/AdvReac Type Severity Reaction Status Date / Time phenobarbital
[2021-05-15 05:29] VITALS: TEMP 39.7
[2021-05-15] MEDS: ACETAMINOPHEN 325 MG TABLET 650 MG PO (05:29)
[2021-05-15 05:38] VITALS: BP 121/63; PULSE 105; RESP 18; TEMP 39.7; O2SAT 97
[2021-05-15 08:00] VITALS: BP 112/66; PULSE 94; RESP 20; TEMP 36.9; O2SAT 100
[2021-05-15 08:06] LABS: Alanine Aminotransferase 17 U/L (4-50); Albumin Level 3.9 g/dL (3.5-5.1); Alkaline Phosphatase 86 U/L (38-126); Anion Gap 13 mmol/L (8-16); Aspartate Amino Transferase 31 U/L (17-59); Bilirubin,Total 0.5 mg/dL (0.2-1.3); Blood Urea Nitrogen 16 mg/dL (9-20); Calcium 8.7 mg/dL (8.4-10.2); Carbon Dioxide 15 mmol/L (22-30); Chloride 107 mmol/L (98-107); Estimated CRCL calculation 107 ml/min; Estimated Glomerular Filt Rate > 60; Glucose 144 mg/dL (65-110); Potassium 3.9 mmol/L (3.4-5.0); Sodium 135 mmol/L (137-145)
[2021-05-15 08:16] LABS: Basophils Percent Auto 0.8 % (0.2-1.2); Eosinophils Absolute Auto 0.1 K/mm3 (0-0.3); Eosinophils Percent Auto 2.3 % (0-4.4); Hematocrit 42.2 % (42.0-52.0); Hemoglobin 13.7 g/dL (14.0-18.0); Immature Granulocyte Absolute 0.05 K/mm3 (0.00-0.031); Lymphocytes Absolute Auto 1.19 K/mm3 (0.9-3.2); Mean Corpuscular HGB Conc 32.5 g/dl (32-36); Mean Corpuscular Hemoglobin 28.4 pg (26-34); Mean Corpuscular Volume 87.6 fl (80-100); Mean Platelet Volume 9.7 fl (7.4-10.4); Monocytes Absolute Auto 0.8 K/mm3 (0.1-0.6); Monocytes Percent Auto 14.7 % (2.6-8.5); Neutrophils Percent Auto 58.2 % (45.5-73.1); Platelet Count Result 149 k/mm3 (150-375); Red Blood Count 4.82 M/mm3 (4.6-6.20); Red Cell Distribution Width 14.2 % (11.5-14.5); White Blood Count 5.2 K/mm3 (4.5-10.0)
[2021-05-15] MEDS: LORATADINE 10 MG TABLET PO (10:03)
[2021-05-15] MEDS: NORTRIPTYLINE HCL 25 MG CAPSULE 75 MG PO ×2 (10:03→17:12)
[2021-05-15] MEDS: FENOFIBRATE 160 MG TABLET PO (10:04)
[2021-05-15] MEDS: ASPIRIN 81 MG CHEWABLE TABLET PO (10:04)
[2021-05-15] MEDS: ENALAPRIL MALEATE 5 MG TABLET PO (10:04)
[2021-05-15] MEDS: CITALOPRAM HYDROBROMIDE 20 MG TABLET 40 MG PO (10:05)
[2021-05-15] MEDS: FAMOTIDINE 20 MG TABLET PO (10:05)
[2021-05-15] MEDS: CYCLOBENZAPRINE HCL 10 MG TABLET PO ×2 (10:05→17:13)
[2021-05-15 12:00] VITALS: BP 118/73; PULSE 88; RESP 20; TEMP 36.8; O2SAT 99
[2021-05-15 14:14] LABS: SARS-CoV-2 RNA PCR Negative
[2021-05-15 16:00] VITALS: BP 110/64; PULSE 90; RESP 20; TEMP 36.8; O2SAT 99
[2021-05-15] MEDS: IBUPROFEN 400 MG TABLET 800 MG PO (17:13)
--- NOTE | 2021-05-15 17:15 | PM.IMPN ---
Progress Note: A&P Assessment and Plan (1) Fever: Qualifiers: Fever type: unspecified Qualified Code(s): R50.9 - Fever, unspecified Code(s): R50.9 - Fever, unspecified Status: Acute (2) Gait instability: Code(s): R26.81 - Unsteadiness on feet Status: Acute (3) Productive cough: Code(s): R05.8 - Other specified cough Status: Acute (4) Weakness: Code(s): R53.1 - Weakness Status: Acute (5) Dehydration: Code(s): E86.0 - Dehydration Status: Acute Additional Plan Fever along with cough and shortness of breath cough with yellowish expectoration WBC count is normal does have history of asthma he reports. Will treat for acute bronchitis. His chest x-ray is negative for any acute cardiopulmonary disease. With Augmentin COVID [address] rapid test is negative PCR pending he is vaccinated fully as well blood cultures been obtained and will follow the results. Gait instability and weakness generalized PT OT to see Dehydration with some metabolic acidosis continue IV fluid Recheck labs in the morning metabolic acidosis History of asthma/COPD History of CVA History of epilepsy resume his seizure medication no seizures for many years. 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 The patient reports for the last fiber 6 days he has been having cough that was intermittently productive of yellow sputum. The cough was associated with chest discomfort at the time of coughing. He has also had some rhinorrhea but denies any nasal congestion. With his weakness he has been more unsteady on his feet and fell landing on his left shoulder. He is stumbling. He cannot tell me exactly how high his fever was but he was definitely having fevers at home. He denies any nausea or vomiting. He has had decreased appetite. He denies any dysuria, hematuria change in urinary frequency. He has been having normal stools. Despite already having a fever and cough the patient decided that he would still go to have his COVID vaccine 2 days ago. The ER staff did try to ambulate the patient in the ER and the patient was unsteady on his feet. The patient denies having any abdominal pain into his abdomen is palpated. He reports that always hurts when someone palpates his abdomen. His abdomen is not any more distended than baseline. 05/15/2021 chart reviewed seen the patient reports cough and shortness of breath for past few days. Her having fever as well cough with yellowish expectoration reported chest x-rays negative Review of Systems Review of Systems: All systems reviewed & are unremarkable except as noted in HPI and below (HPI) Exam Narrative: General: No acute distress, obese HEENT: Mucous membranes are moist, no oral pharyngeal erythema, pupils are equal and reactive Respiratory: Clear to auscultation bilaterally, no increased work of Cardiovascular: Regular rate, regular rhythm, 2+ bilateral radial pedal pulses Gastrointestinal: Soft, tender to palpation Skin: No jaundice, no pallor, hot to touch chronic discoloration skin of anterior shins bilaterally Musculoskeletal: No clubbing, cyanosis or edema Neurological: Speech is clear but slow, mild facial asymmetry, pupils are equal and reactive, alert and oriented x4 Psychiatric: Appropriate mood and affect, pleasant and cooperative : Deferred Hematologic/lymphatic: No petechiae, no bruising no anterior cervical or submandibular lymphadenopathy Objective Data Vital Signs Vital Signs: Vit
[2021-05-15 22:00] VITALS: BP 94/49; PULSE 68; RESP 16; TEMP 36.3; O2SAT 99
[2021-05-15] MEDS: SODIUM CHLORIDE 0.9% IV 1,000 ML 80 ML IV CONT (22:09)
[2021-05-15] MEDS: AMOXICILLIN/CLAVULANATE K 875-125 MG TAB 1 TABLET PO (22:11)
[2021-05-15] MEDS: TOPIRAMATE 100 MG TABLET 200 MG PO (22:12)
[2021-05-15] MEDS: DIVALPROEX SODIUM DR 250 MG TABEC 500 MG PO (22:12)
[2021-05-15] MEDS: ATORVASTATIN 10 MG TABLET PO (22:12)
[2021-05-16] MEDS: SODIUM CHLORIDE 0.9% IV 1,000 ML 80 ML IV CONT (03:09)
[2021-05-16 05:28] VITALS: BP 110/61; PULSE 73; RESP 16; TEMP 36.8; O2SAT 98
[2021-05-16 06:34] LABS: Basophils Percent Auto 0.6 % (0.2-1.2); Eosinophils Absolute Auto 0.3 K/mm3 (0-0.3); Eosinophils Percent Auto 6.6 % (0-4.4); Hematocrit 41.5 % (42.0-52.0); Hemoglobin 13.2 g/dL (14.0-18.0); Immature Granulocyte Absolute 0.05 K/mm3 (0.00-0.031); Immature Granulocyte Percent A 1.1 % (0-0.5); Lymphocytes Absolute Auto 1.36 K/mm3 (0.9-3.2); Lymphocytes Percent Auto 28.9 % (18.3-44.2); Mean Corpuscular HGB Conc 31.8 g/dl (32-36); Mean Corpuscular Hemoglobin 28.4 pg (26-34); Mean Corpuscular Volume 89.2 fl (80-100); Mean Platelet Volume 9.1 fl (7.4-10.4); Monocytes Absolute Auto 0.8 K/mm3 (0.1-0.6); Monocytes Percent Auto 17.7 % (2.6-8.5); Neutrophils Absolute Auto 2.1 K/mm3 (1.3-6.7); Neutrophils Percent Auto 45.1 % (45.5-73.1); Platelet Count Result 124 k/mm3 (150-375); Red Blood Count 4.65 M/mm3 (4.6-6.20); Red Cell Distribution Width 14.2 % (11.5-14.5); White Blood Count 4.7 K/mm3 (4.5-10.0)
[2021-05-16 06:48] LABS: Alanine Aminotransferase 19 U/L (4-50); Albumin Level 3.6 g/dL (3.5-5.1); Alkaline Phosphatase 75 U/L (38-126); Anion Gap 9 mmol/L (8-16); Aspartate Amino Transferase 33 U/L (17-59); Bilirubin,Total 0.3 mg/dL (0.2-1.3); Blood Urea Nitrogen 13 mg/dL (9-20); Calcium 8.6 mg/dL (8.4-10.2); Carbon Dioxide 21 mmol/L (22-30); Chloride 110 mmol/L (98-107); Estimated CRCL calculation 121 ml/min; Estimated Glomerular Filt Rate > 60; Glucose 145 mg/dL (65-110); Potassium 3.8 mmol/L (3.4-5.0); Sodium 140 mmol/L (137-145)
[2021-05-16] MEDS: FLUTICASONE/SALMETEROL 115-21 MCG INHALER 1 PUFF 2 PUFF INHALATION ×2 (07:57→20:11)
[2021-05-16 08:00] VITALS: O2SAT 96
[2021-05-16] MEDS: NORTRIPTYLINE HCL 25 MG CAPSULE 75 MG PO ×2 (09:22→17:48)
[2021-05-16] MEDS: DIVALPROEX SODIUM DR 250 MG TABEC 1000 MG PO (09:22)
[2021-05-16] MEDS: FAMOTIDINE 20 MG TABLET PO (09:22)
[2021-05-16] MEDS: AMOXICILLIN/CLAVULANATE K 875-125 MG TAB 1 TABLET PO ×2 (09:22→21:05)
[2021-05-16] MEDS: CITALOPRAM HYDROBROMIDE 20 MG TABLET 40 MG PO (09:23)
[2021-05-16] MEDS: ENALAPRIL MALEATE 5 MG TABLET PO (09:23)
[2021-05-16] MEDS: FENOFIBRATE 160 MG TABLET PO (09:23)
[2021-05-16] MEDS: ASPIRIN 81 MG CHEWABLE TABLET PO (09:23)
[2021-05-16] MEDS: LORATADINE 10 MG TABLET PO (09:24)
[2021-05-16] MEDS: TOPIRAMATE 100 MG TABLET 200 MG PO ×2 (09:24→21:04)
[2021-05-16] MEDS: ENOXAPARIN 40 MG/0.4 ML SYRINGE SUB-Q (09:24)
[2021-05-16] MEDS: CYCLOBENZAPRINE HCL 10 MG TABLET PO ×2 (09:36→17:48)
--- NOTE | 2021-05-16 10:54 | WPDNEURCNPN ---
Assessment and Plan Additional Plan 1. Intractable epilepsy 2. Viral syndrome with negative COVID 3. Historically gait dysfunction will benefit from the EMG nerve conduction study as an outpatient the CT scan only documented the right temporal craniotomy with moderate size underlying encephalomalacia which could be 1 of the contributing factor, plan is to obtain the EEG at present Consult date: 05/16/21 HPI: Dennis Branch is a 56 year old male admitted to the hospital through the emergency room for the complaints of generalized weakness and not walking right in addition to the ongoing history of 1. Intractable epilepsy and with history of right temporal lobectomy 2. COPD 3. Diabetes mellitus 4. Hypertension 5. Obstructive sleep apnea patient has not been feeling well for the last 6 days has been coughing with yellow sputum intermittently along with the chest discomfort also history of rhinorrhea but no specific nasal congestion he has been reportedly more unsteady on his feet and 1 time fell Arthur on his left shoulder he gave no history of nausea or vomiting or any other generalized symptomatology. Patient does have ongoing history of multiple problems in addition to intractable epilepsy that is generalized anxiety, arthritis, diabetes mellitus and GERD , evaluation up until now includes the routine blood workup WBCs 4.7 hemoglobin 13.2 platelet count of 124, INR of 1.0 with a PTT 25.2, chemistry fairly unremarkable with blood sugar of 145 UA with 3+ glucose 1+ ketones, and valproic acid level of 70.6 with serologies for COVID negative , Review of Systems Review of Systems: All systems reviewed & are unremarkable except as noted in HPI and below PMFSH Past Medical History Medical History Anxiety Arthritis Asthma Bronchitis COPD (chronic obstructive pulmonary disease) CVA (cerebral vascular accident) Depression Diabetes Epilepsy GERD (gastroesophageal reflux disease) GI bleed Head trauma Hyperlipidemia Hypertension IBS (irritable bowel syndrome) Sleep apnea Surgical History Surgical History History of open reduction and internal fixation (ORIF) procedure Hx of craniotomy temporal lobe resection Family History Family History Mother Hypertension Congestive heart failure Social History Social History Social History: The patient is single and never had any children. He lives alone. He is on disability. Surrogate decision maker: Sophia Pozo (mother) Smoking status: Never smoker Alcohol intake: never Substance use: never Gender identity (if verbalized by the patient): Male Sexual Orientation (if Verbalized by the Patient): Straight or Heterosexual Spiritual care concerns: No Meds Home Medications and Allergies Home Medications Medication Instructions Recorded Confirmed Type Topamax 400 mg PO DAILY 04/04/19 05/14/21 History divalproex [Depakote] 500 mg PO Q12H 04/04/19 05/14/21 History albuterol sulfate 2 inh INHALATION Q4H PRN 11/05/19 05/14/21 History aspirin 81 mg PO DAILY 11/05/19 05/14/21 History atorvastatin 10 mg PO HS 11/05/19 05/14/21 History enalapril maleate 5 mg PO DAILY 11/05/19 05/14/21 History fenofibrate 160 mg PO DAILY 11/05/19 05/14/21 History fluticasone propion-salmeterol 1 inh INHALATION BID 11/05/19 05/14/21 History [Advair Diskus] loratadine [Claritin] 10 mg PO DAILY PRN #10 tablet 04/05/20 05/14/21 Rx promethazine 25 mg PO Q6H PRN #7 tablet 04/05/20 05/14/21 Rx ibuprofen 800 mg PO TID PRN #20 tablet 10/04/20 05/14/21 Rx citalopram 40 mg PO DAILY 05/14/21 05/14/21 History cyclobenzaprine 10 mg PO BID 05/14/21 05/14/21 History famotidine [Pepcid] 20 mg PO DAILY 05/14/21 05/14/21 History nortriptyline 75 mg PO BID 05/14/21 05/14/21 History Allergies Allergy/AdvReac Typ
[2021-05-16 13:54] VITALS: BP 111/72; PULSE 86; RESP 21; TEMP 36.2; O2SAT 99
--- NOTE | 2021-05-16 15:17 | PM.IMPN ---
Progress Note: A&P Assessment and Plan (1) Fever: Qualifiers: Fever type: unspecified Qualified Code(s): R50.9 - Fever, unspecified Code(s): R50.9 - Fever, unspecified Status: Acute (2) Gait instability: Code(s): R26.81 - Unsteadiness on feet Status: Acute (3) Productive cough: Code(s): R05.8 - Other specified cough Status: Acute (4) Weakness: Code(s): R53.1 - Weakness Status: Acute (5) Dehydration: Code(s): E86.0 - Dehydration Status: Acute Additional Plan # Fever along with cough and shortness of breath cough with yellowish expectoration WBC count is normal does have history of asthma he reports. Will treat for acute bronchitis. His chest x-ray is negative for any acute cardiopulmonary disease. With Augmentin COVID [address] rapid test is negative PCR also came back negative. He is vaccinated fully as well blood cultures been obtained and will follow the results. No fever for over 24 now follow cultures # Gait instability and weakness generalized PT OT to see # Dehydration with some metabolic acidosis continue IV fluid. Better will stop his IV fluid today # metabolic acidosis improved today # History of asthma/COPD # History of CVA # History of epilepsy resume his seizure medication no seizures for many years. Neural consult noted EEG ordered # History of craniotomy # Hypertension # Hyperlipidemia # Diabetes mellitus # Depression # Sleep apnea # irritable bowel syndrome # Code status full code # DVT prophylaxis Lovenox Subjective Date/time seen: 05/16/21 15:17 Interval history: HPI:56-year-old male with past medical history of intractable epilepsy status post right temporal lobectomy, COPD, diabetes, hypertension and obstructive sleep apnea who presented to the ER with complaints of weakness and not walking right. The patient reports for the last fiber 6 days he has been having cough that was intermittently productive of yellow sputum. The cough was associated with chest discomfort at the time of coughing. He has also had some rhinorrhea but denies any nasal congestion. With his weakness he has been more unsteady on his feet and fell landing on his left shoulder. He is stumbling. He cannot tell me exactly how high his fever was but he was definitely having fevers at home. He denies any nausea or vomiting. He has had decreased appetite. He denies any dysuria, hematuria change in urinary frequency. He has been having normal stools. Despite already having a fever and cough the patient decided that he would still go to have his COVID vaccine 2 days ago. The ER staff did try to ambulate the patient in the ER and the patient was unsteady on his feet. The patient denies having any abdominal pain into his abdomen is palpated. He reports that always hurts when someone palpates his abdomen. His abdomen is not any more distended than baseline. 05/15/2021 chart reviewed seen the patient reports cough and shortness of breath for past few days. Her having fever as well cough with yellowish expectoration reported chest x-rays negative 05/16/2021 no overnight events. Feels well. Cough is still there but feeling better overall. Has not been feeling back to her normal self though Review of Systems Review of Systems: All systems reviewed & are unremarkable except as noted in HPI and below (HPI) Exam Narrative: General: No acute distress, obese HEENT: Mucous membranes are moist, no oral pharyngeal erythema, pupils are equal and reactive Respiratory: Clear to auscultation bilaterally, no increased work of Cardiovascular: Regular rate, regular rhythm, 2+ bilateral radial pedal pulses Gastrointestinal: Soft, tender to palpation Skin: No jaundice, no pallor, hot to touch chronic discoloration skin of anterior shins bilaterally Musculoskeletal: No clubbing, cyanosis or edema Neurological: Speech is clear but slow, mild facial
[2021-05-16 20:14] VITALS: O2SAT 94
[2021-05-16] MEDS: ATORVASTATIN 10 MG TABLET PO (21:04)
[2021-05-16] MEDS: DIVALPROEX SODIUM DR 250 MG TABEC 500 MG PO (21:04)
[2021-05-16 22:00] VITALS: BP 113/71; PULSE 87; RESP 18; TEMP 36.4; O2SAT 98
[2021-05-17 06:00] VITALS: BP 100/42; PULSE 73; RESP 16; TEMP 36.1; O2SAT 97
[2021-05-17 07:17] LABS: Anion Gap 7 mmol/L (8-16); Blood Urea Nitrogen 11 mg/dL (9-20); Carbon Dioxide 22 mmol/L (22-30); Chloride 108 mmol/L (98-107); Estimated CRCL calculation 121 ml/min; Estimated Glomerular Filt Rate > 60; Glucose 140 mg/dL (65-110); Potassium 3.8 mmol/L (3.4-5.0); Sodium 137 mmol/L (137-145)
[2021-05-17 07:32] LABS: Basophils Percent Auto 0.6 % (0.2-1.2); Eosinophils Absolute Auto 0.4 K/mm3 (0-0.3); Eosinophils Percent Auto 7.3 % (0-4.4); Hemoglobin 12.9 g/dL (14.0-18.0); Immature Granulocyte Absolute 0.04 K/mm3 (0.00-0.031); Immature Granulocyte Percent A 0.8 % (0-0.5); Lymphocytes Percent Auto 42.2 % (18.3-44.2); Mean Corpuscular HGB Conc 32.3 g/dl (32-36); Mean Corpuscular Hemoglobin 28.9 pg (26-34); Mean Corpuscular Volume 89.7 fl (80-100); Mean Platelet Volume 9.8 fl (7.4-10.4); Monocytes Absolute Auto 0.8 K/mm3 (0.1-0.6); Neutrophils Absolute Auto 1.8 K/mm3 (1.3-6.7); Neutrophils Percent Auto 34.1 % (45.5-73.1); Platelet Count Result 149 k/mm3 (150-375); Red Blood Count 4.46 M/mm3 (4.6-6.20); Red Cell Distribution Width 14.2 % (11.5-14.5); White Blood Count 5.2 K/mm3 (4.5-10.0)
[2021-05-17] MEDS: CITALOPRAM HYDROBROMIDE 20 MG TABLET 40 MG PO (08:47)
[2021-05-17] MEDS: AMOXICILLIN/CLAVULANATE K 875-125 MG TAB 1 TABLET PO (08:47)
[2021-05-17] MEDS: FAMOTIDINE 20 MG TABLET PO (08:47)
[2021-05-17] MEDS: ASPIRIN 81 MG CHEWABLE TABLET PO (08:47)
[2021-05-17] MEDS: ENOXAPARIN 40 MG/0.4 ML SYRINGE SUB-Q (08:48)
[2021-05-17] MEDS: DIVALPROEX SODIUM DR 250 MG TABEC 1000 MG PO (08:48)
[2021-05-17] MEDS: FENOFIBRATE 160 MG TABLET PO (08:48)
[2021-05-17] MEDS: ENALAPRIL MALEATE 5 MG TABLET PO (08:48)
[2021-05-17] MEDS: TOPIRAMATE 100 MG TABLET 200 MG PO (08:49)
[2021-05-17] MEDS: NORTRIPTYLINE HCL 25 MG CAPSULE 75 MG PO ×2 (08:49→16:29)
[2021-05-17] MEDS: CYCLOBENZAPRINE HCL 10 MG TABLET PO ×2 (08:50→16:29)
--- NOTE | 2021-05-17 10:48 | WPDNEUROLOGY ---
Neurology EEG Report General Information Date of Study: 05/17/21 TEST eeg DIAGNOSIS confusion with gait dysfunction CONDITION OF RECORDING awake drowsy and sleep EEG NUMBER [id number] CLINICAL HISTORY patient reported he was running a fever and had confusion that lasted couple of days but is feeling better. There is history of brain surgery over the left side for grand mal seizure but he has not had seizures since then EEG DESCRIPTION background rhythm consists of low to medium voltage 6 to 7 hertz per 2nd theta admixed with low-voltage 15 to 18 hertz per 2nd beta. Multiple movement artifacts seen throughout the tracing. Low-voltage beta activity seen diffusely admixed with waxing and waning poorly organized alpha activity posteriorly. Hyperventilation not done. Photic stimulation not done. Non paroxysmal. Nonfocal. Nonlateralizing. For IMPRESSION no significant abnormalities noted
--- NOTE | 2021-05-17 10:55 | WPDNEUROLOGY ---
Neurology EEG Report General Information Date of Study: 05/16/21 TEST eeg DIAGNOSIS possible seizures CONDITION OF RECORDING awake with constant eye movements EEG NUMBER [id number] CLINICAL HISTORY patient is in the hospital for the complaints of change in the mental status. EEG DESCRIPTION Whole record consists of medium to high voltage 3 to 4 hertz per 2nd delta admixed with low to medium voltage 5 to 7 hertz per 2nd theta and minimal amount of poorly organized low voltage beta activity. At times the slow activity is more prominent over the right hemispheric linkages. Continuous eye movements are noted throughout the tracing hyperventilation not done. Photic stimulation not done. Non paroxysmal. Nonfocal. Nonlateralizing. IMPRESSION Abnormal record due to the presence of excessive amount of theta and delta activity throughout the tracing without evidence of any paroxysmal discharge or significant asymmetric. These abnormalities are suggestive of underlying organic a metabolic encephalopathy or the possibility of neuro degenerative process again clinical correlation recommended there is no evidence of seizure discharge
--- NOTE | 2021-05-17 11:38 | PCRCNOTE ---
Window of time for administration has passed. See next scheduled administration.
--- NOTE | 2021-05-17 13:00 | WPDNEUROPN ---
Progress Note: A&P Additional Plan neurologically patient is stable with no significant worsening on the EEG and no change in the neurological status can be discharged on the same anticonvulsants instruction to return to the office for the follow-up in 6 months Subjective Date/time seen: 05/17/21 13:00 with history of intractable epilepsy and left-sided craniotomy for temporal lobectomy admitted for the generalized symptomatology his EEG does not show any seizure discharge and clinically he remains stable except that he has gained weight significant neurologically he can be discharged with instruction for the follow-up in the office Review of Systems Review of Systems: All systems reviewed & are unremarkable except as noted in HPI and below Exam Const: General: cooperative and comfortable Nutritional Appearance: obese Orientation/consciousness: oriented to person and oriented to place Limitations: no limitations HENMT: Head: normal to inspection Ears: hearing grossly normal bilaterally General nose exam: Normal external nose present Face and sinus: normal facial exam Mouth: Yes Normal oral and palatal mucosa present Eyes: General: appearance normal, both eyes and all related structures Visual Dubon: abnormal by confrontation Alignment and Position: alignment normal Periorbital: periorbital findings normal Eyelids: eyelids normal Conjunctivae: conjunctivae normal Sclera: sclerae normal Cornea: corneas normal Pupils: Equal, round and reactive pupils present EOM: EOMs intact bilaterally Neck: Neck: normal visual inspection, full ROM and no lymphadenopathy Resp: Effort & Inspection: normal respiratory effort and able to speak in complete sentences Auscultation: clear to auscultation bilaterally Cardio: Jugular venous distension: no JVD Rate: regular rate Rhythm: regular rhythm Neuro: General: oriented to person, oriented to place and oriented to time Cranial nerves: Yes Bilaterally intact EOM present, Yes Nystagmus not present, Yes Normal facial strength present, Yes facial symmetry, Yes Midline tongue present, Yes Normal hearing present, Yes Ability to bilaterally rotate head present and Yes Ability to bilaterally elevate shoulders present Cognition (Neuro): normal cognition Speech: normal speech Gait exam (Neuro): Normal gait present Motor exam (neuro): Pronator motor function not present and No tremor noted Sensory Exam: normal sensation Psych: Appearance: grossly normal Mental Status: mental status grossly normal Speech and movement: Normal speech and movement present Affect: normal affect Attitude: cooperative Thought process: Normal thought process present Thought content: Yes Normal thought content present Insight: Good insight present (Psych) Judgement: Good judgement present (Psych) Objective Data Vital Signs Vital Signs: Vital Signs - 24 hr 05/16/21 13:54 05/16/21 20:14 05/16/21 22:00 Temperature 36.2 C L 36.4 C L Pulse Rate 86 87 Respiratory Rate 21 H 18 Blood Pressure 111/72 113/71 Pulse Oximetry 99 94 98 05/17/21 06:00 Temperature 36.1 C L Pulse Rate 73 Respiratory Rate 16 Blood Pressure 100/42 L Pulse Oximetry 97 Intake/Output Intake/Output: Intake & Output 05/14/21 05/15/21 05/16/21 05/17/21 23:59 23:59 23:59 23:59 Intake Total 2099 4750 4822 540 Balance 2100 4750 4822 540 Meds/Results Medications: Active Medications Generic Name Dose Route Start Last Admin Trade Name Freq PRN Reason Stop Dose Admin Acetaminophen 650 mg 05/15/21 04:34 05/15/21 05:29 Acetaminophen 325 Mg Tablet PO 650 mg Q4H PRN Administration Mild Pain (1-3) or Fever Albuterol 2 puff 05/15/21 04:34 Albuterol Sulfate (*Sp) Aerosol 1 Puff INHALATION Q4H PRN Shortness Of Breath Amoxicillin/Clavulanate Potassium 1 tablet 05/15/21 21:00 05/17/21 08:47 Amoxicillin/Clavulanate K 875-125 Mg Tab PO 1 tablet Q12HR HUGO Administration Aspirin 81 mg 05/15/21
[2021-05-17 13:18] VITALS: BP 109/62
[2021-05-17 13:54] LABS: Glucose Point of Care 214 mg/dl (65-105)
[2021-05-17 15:23] VITALS: BP 109/66; PULSE 76; RESP 18; TEMP 36.7; O2SAT 99
--- NOTE | 2021-05-17 15:47 | PM.DS ---
DS: Admitting Diagnosis Discharge Date 05/17/2021 Admitting Diagnosis Gait instability DS: Discharge Diagnosis Discharge Diagnosis (1) Fever: Qualifiers: Fever type: unspecified Qualified Code(s): R50.9 - Fever, unspecified Code(s): R50.9 - Fever, unspecified Status: Acute Assessment and Plan: Received COVID booster on 05/13/2021 and subsequently developed fever with T-max 103.5?. Fever was likely related to the booster. No source of acute underlying infectious etiology based on clinical exam, imaging, and laboratory workup. Fever resolved and he was afebrile >48 hours prior to discharge. Blood cultures negative to date and final cultures will be monitored. COVID-19 PCR testing was negative. (2) Gait instability: Code(s): R26.81 - Unsteadiness on feet Status: Acute Assessment and Plan: Patient had been feeling weak and stated that he was not walking right. Participated in PT/OT and was able to ambulate independently. He declined home health services or other discharge needs. On the day of discharge, when walking with therapy he did have a brief moment where he felt that his legs could buckle, but otherwise had no issues. I walked with him around the room on my initial encounter and he had no issues with steady gait. Discharge services were offered to the patient but he wished to return home independently. Discussed fall precautions and informed that if he feels unsafe at home, he can seek medical care (3) Bronchitis: Code(s): J40 - Bronchitis, not specified as acute or chronic Status: Acute Assessment and Plan: Presented with shortness of breath and cough productive of yellowish sputum. He was started on p.o. Augmentin for bronchitis which he will continue to complete a full course of treatment. Supportive care provided. Cough improved. (4) Weakness: Code(s): R53.1 - Weakness Status: Acute Assessment and Plan: As above, participated in PT/OT and had no ongoing therapy requirements (5) Dehydration: Code(s): E86.0 - Dehydration Status: Acute Assessment and Plan: Secondary to acute febrile illness with poor p.o. intake. He was rehydrated with IV fluids and was euvolemic on my encounter. Encourage adequate oral intake (6) Fall: Code(s): W19.XXXA - Unspecified fall, initial encounter Status: Acute Assessment and Plan: Secondary to weakness and gait instability. He did have a fall at home in which he landed on his left shoulder. Shoulder x-ray with no acute osseous abnormalities. Head CT with no acute findings and unchanged encephalomalacia. As above, fall precautions discussed at length. (7) Epilepsy: Code(s): G40.909 - Epilepsy, unspecified, not intractable, without status epilepticus Status: Acute Assessment and Plan: Evaluated by his neurologist, Dr. Tucker. EGD performed and reviewed. Per Neurology, patient is neurologically stable with no changes and should remain on anticonvulsant regimen, follow-up outpatient in 6 months DS: Summary Hospital Course Hospital Course: Date of admission: 05/14/2021 Date of discharge: 05/17/2021 Dennis Branch is a 56-year-old male with a history of COPD, CVA, diabetes mellitus, hypertension, hyperlipidemia, sleep apnea, epilepsy s/p craniotomy, and several other comorbidities who presented to the emergency department on 05/14/2021 due to complaints of weakness ongoing for 4 days as well as productive cough and rhinorrhea. Also complained of gait instability and did have a fall at home onto his left shoulder. On presentation to the emergency department, he was febrile at 1:01 a.m. 0.2 disease, additional vital signs stable, CBC and BMP unremarkable, lactic 1.1, influenza screen negative, point of care COVID testing negative, CXR with no acute findings, shoulder x-ray with no acute osseous findings, and head CT with evid
== END 2021-05-17 16:50 | disposition home or self-care (01) ==
LOC: ANHED 18:40 → ANH3MEDSUR 05-16 16:38
PROVIDERS: Internal Medicine; Admitting Provider Internal Medicine; Emergency Provider Emergency Medicine; PCP Psychiatry & Neurology Neurology; Visit Provider Physician Assistant
DX: R50.9 Fever, unspecified (principal); R26.81 Unsteadiness on feet; R53.1 Weakness; E86.0 Dehydration; R05.8 Other specified cough; J44.9 Chronic obstructive pulmonary disease, unspecified; G40.919 Epilepsy, unspecified, intractable, without status epilepticus; W19.XXXA Unspecified fall, initial encounter; E11.9 Type 2 diabetes mellitus without complications; I10 Essential (primary) hypertension; E78.5 Hyperlipidemia, unspecified; K58.9 Irritable bowel syndrome, unspecified; G47.33 Obstructive sleep apnea (adult) (pediatric); F41.8 Other specified anxiety disorders; Z86.73 Personal history of transient ischemic attack (TIA), and cerebral infarction without residual deficits; Z87.891 Personal history of nicotine dependence; Z79.51 Long term (current) use of inhaled steroids; Z79.82 Long term (current) use of aspirin; Z20.822 Contact with and (suspected) exposure to COVID-19
CPT/HCPCS: 36415; 70450; 71045; 73030; 80048; 80053; 80164; 81001; 82948; 83605; 85025; 85610; 85730; 87040; 87426; 87804; 93005; 94640; 95816; 96361; 96365; 96366; 96372; 97110; 97116; 97161; 97165; 99285; A9270; C9803; G0378; J0131; J1650; J7030; U0003; U0005

== ENCOUNTER 2021-07-15 21:27 | Emergency (ER) | payer MEDICARE, MEDICAID, SELFPAY ==
[2021-07-15] VITALS (14 sets, daily range): BP systolic 89–132; BP diastolic 61–84; PULSE 65–73; RESP 11–21; TEMP 37; O2SAT 96–100
--- NOTE | ~2021-07-15 | XR_ITS ---
EXAMINATION: XR chest 2V 07/15/2021 22:06 INDICATION: History of seizure. Syncope. PROCEDURE: PA and lateral views the chest COMPARISON: No prior studies for comparison. FINDINGS: The lungs are clear. The cardiomediastinal silhouette is within normal limits. There are no pleural effusions. There is no pneumothorax suspected. There is a radiopaque cardiac monitoring device overlying the heart. IMPRESSION: 1: NO ACUTE CARDIOPULMONARY DISEASE. Reviewed, dictated and finalized at location A. [employer]
[2021-07-15 22:26] LABS: Basophils Absolute Auto 0.1 K/mm3 (0.0-0.1); Basophils Percent Auto 0.6 % (0.2-1.2); Eosinophils Absolute Auto 0.2 K/mm3 (0-0.3); Eosinophils Percent Auto 2.6 % (0-4.4); Hematocrit 41.8 % (42.0-52.0); Hemoglobin 13.1 g/dL (14.0-18.0); Immature Granulocyte Absolute 0.11 K/mm3 (0.00-0.031); Immature Granulocyte Percent A 1.3 % (0-0.5); Lymphocytes Absolute Auto 3.98 K/mm3 (0.9-3.2); Lymphocytes Percent Auto 47.4 % (18.3-44.2); Mean Corpuscular HGB Conc 31.3 g/dl (32-36); Mean Corpuscular Hemoglobin 28.6 pg (26-34); Mean Corpuscular Volume 91.3 fl (80-100); Mean Platelet Volume 9.6 fl (7.4-10.4); Monocytes Absolute Auto 0.7 K/mm3 (0.1-0.6); Monocytes Percent Auto 8.3 % (2.6-8.5); Neutrophils Absolute Auto 3.3 K/mm3 (1.3-6.7); Neutrophils Percent Auto 39.8 % (45.5-73.1); Platelet Count Result 201 k/mm3 (150-375); Red Blood Count 4.58 M/mm3 (4.6-6.20); White Blood Count 8.4 K/mm3 (4.5-10.0)
[2021-07-15 22:38] LABS: Alanine Aminotransferase 20 U/L (4-50); Albumin Level 4.3 g/dL (3.5-5.1); Alkaline Phosphatase 88 U/L (38-126); Anion Gap 10 mmol/L (8-16); Aspartate Amino Transferase 38 U/L (17-59); Bilirubin,Total 0.5 mg/dL (0.2-1.3); Blood Urea Nitrogen 19 mg/dL (9-20); Carbon Dioxide 24 mmol/L (22-30); Chloride 104 mmol/L (98-107); Estimated CRCL calculation 98 ml/min; Estimated Glomerular Filt Rate > 60; Glucose 127 mg/dL (65-110); Potassium 3.9 mmol/L (3.4-5.0); Sodium 138 mmol/L (137-145)
[2021-07-15 23:09] LABS: Valproic Acid 30.2 ug/mL (50-120)
--- NOTE | 2021-07-15 23:26 | ED.GENADULT ---
HPI - General Adult General Chief complaint: Syncope Stated complaint: SYNCOPAL AT DINNER History of Present Illness HPI narrative: Patient is a 56-year-old male who presents to the ER after having a seizure while at [facility]. This happens quite often. Reports he is a standing there when he lost consciousness. Ambulance was called for him to be evaluated. Patient takes Depakote as well as Topamax. He follows with Dr. Tucker. Patient denies any fevers or chills or sweats. No headache. No change in vision or hearing. No focal weakness or numbness. Patient last took his Depakote at 7 AM. Related Data Home Medications Medication Instructions Recorded Confirmed Topamax 400 mg PO DAILY 04/04/19 05/14/21 divalproex [Depakote] 500 mg PO Q12H 04/04/19 05/14/21 albuterol sulfate 2 inh INHALATION Q4H PRN 11/05/19 05/14/21 aspirin 81 mg PO DAILY 11/05/19 05/14/21 atorvastatin 10 mg PO HS 11/05/19 05/14/21 enalapril maleate 5 mg PO DAILY 11/05/19 05/14/21 fenofibrate 160 mg PO DAILY 11/05/19 05/14/21 fluticasone propion-salmeterol 1 inh INHALATION BID 11/05/19 05/14/21 [Advair Diskus] cyclobenzaprine 10 mg PO BID 05/14/21 05/14/21 famotidine [Pepcid] 20 mg PO DAILY 05/14/21 05/14/21 nortriptyline 75 mg PO BID 05/14/21 05/14/21 Allergies Allergy/AdvReac Type Severity Reaction Status Date / Time phenobarbital AdvReac Unknown Other Verified 07/15/21 21:49 Review of Systems Review of Systems: All systems reviewed & are unremarkable except as noted in HPI and below Constitutional: Constitutional: Denies chills, Denies fever(s) and Denies weakness Eyes: Eyes: Denies change in vision and Denies photophobia Cardiovascular: Cardiovascular: Denies chest pain and Denies radiating jaw, neck or arm pain Gastrointestinal: Gastrointestinal: Denies abdominal pain, Denies nausea and Denies vomiting Neurologic: Reports syncope, Denies headache(s), Denies focal weakness and Denies numbness Comments: Seizure PMFSH Past Medical History Medical History (Updated 07/15/21 @ 23:27 by Fei Acevedo MD) Anxiety Arthritis Asthma COPD (chronic obstructive pulmonary disease) CVA (cerebral vascular accident) Depression Diabetes Epilepsy GERD (gastroesophageal reflux disease) GI bleed Head trauma Hyperlipidemia Hypertension IBS (irritable bowel syndrome) Sleep apnea Surgical History Surgical History History of open reduction and internal fixation (ORIF) procedure Hx of craniotomy temporal lobe resection Family History Family History Mother Hypertension Congestive heart failure Social History Social History Social History: The patient is single and never had any children. He lives alone. He is on disability. Surrogate decision maker: Sophia Pozo (mother) Smoking status: Never smoker Alcohol intake: never Substance use: never Gender identity (if verbalized by the patient): Male Sexual Orientation (if Verbalized by the Patient): Straight or Heterosexual Spiritual care concerns: No Exam Narrative: GENERAL: Well-appearing, well-nourished, and in no acute distress. HEAD: Normocephalic, atraumatic. EYES: PERRL and EOMI. ENT: Mucous membranes moist. CHEST: Clear to auscultation. No respiratory distress. HEART: Regular rate and rhythm. Normal peripheral pulses. ABDOMEN: Soft, nontender, nondistended. EXTREMITIES: Normal range of motion. No edema. SKIN: Warm, dry, no rash. NEURO: Alert and oriented x3.. Course Course Emergency Course: Patient informed of results. Recommend that her time schedule for taking his Depakote that he does not become subtherapeutic. Patient does not wish to have any medication while he is here as he plans on getting a ride home and taking it there. Vital Signs Vital signs: Vital Signs Temperature 98.6 F 07/15/
== END 2021-07-15 23:36 | disposition home or self-care (01) ==
PROVIDERS: Emergency Provider Emergency Medicine; PCP Psychiatry & Neurology Neurology
DX: G40.909 Epilepsy, unspecified, not intractable, without status epilepticus (principal); J45.909 Unspecified asthma, uncomplicated; E78.5 Hyperlipidemia, unspecified; I10 Essential (primary) hypertension; M19.90 Unspecified osteoarthritis, unspecified site; K58.9 Irritable bowel syndrome, unspecified; K21.9 Gastro-esophageal reflux disease without esophagitis; G47.30 Sleep apnea, unspecified; F41.9 Anxiety disorder, unspecified; F32.A Depression, unspecified; Z86.73 Personal history of transient ischemic attack (TIA), and cerebral infarction without residual deficits
CPT/HCPCS: 36415; 71046; 80053; 80164; 85025; 99283

== ENCOUNTER 2021-07-30 21:18 | Emergency (ER) | payer MEDICARE, MEDICAID, SELFPAY ==
[2021-07-30 21:19] VITALS: BP 118/93; PULSE 73; RESP 20; TEMP 36.7; O2SAT 98
--- NOTE | 2021-07-30 21:34 | PC.NURSE ---
patient refuses attempt for iv access. states he was stuck multiple times by ems and doesn't want to be stuck again
--- NOTE | 2021-07-30 22:55 | ED.GENADULT ---
HPI - General Adult General Chief complaint: Unspecified <Ida Savage PA-C - Last Filed: 07/31/21 02:55> Stated complaint: unresponsive x 10 min with hx of same <Ida Savage PA-C - Last Filed: 07/31/21 02:55> Source: patient and old records reviewed <Ida Savage PA-C - Last Filed: 07/31/21 02:55> Mode of arrival: EMS <Ida Savage PA-C - Last Filed: 07/31/21 02:55> Limitations: no limitations <JOJO Carmichael Last Filed: 07/31/21 02:55> History of Present Illness HPI narrative: Patient is a 56-year-old male who presents to the ED via EMS with report of a syncopal episode. Patient reports he was sitting at [facility] when he suddenly felt lightheaded and passed out. He reports he was told he lost consciousness for 10 to 15 minutes. He did not fall or hit his head. EMS was called to bring the patient here for evaluation. Per patient's records, he has been seen in the ED for similar symptoms several times, most recently on 07/15 where he had a syncopal episode vs. seizure also at [facility]. Patient is currently on Depakote and Topamax, but he states he does not have seizures. He is scheduled to see a new neurologist at [place] on 08/17, who he reports is supposed to wean him off the seizure medications. He is still taking these and denies missing any doses recently. Patient reports he feels fine currently in the ED bed. He denies any further lightheadedness, dizziness, or weakness, or any recent fevers, chills, CP, SOB, N/V/D, abdominal pain, headache. No bowel/bladder incontinence. <JOJO Carmichael Last Filed: 07/31/21 02:55> Related Data Home medications: Home Medications Medication Instructions Recorded Confirmed Topamax 400 mg PO DAILY 04/04/19 05/14/21 divalproex [Depakote] 500 mg PO Q12H 04/04/19 05/14/21 albuterol sulfate 2 inh INHALATION Q4H PRN 11/05/19 05/14/21 aspirin 81 mg PO DAILY 11/05/19 05/14/21 atorvastatin 10 mg PO HS 11/05/19 05/14/21 enalapril maleate 5 mg PO DAILY 11/05/19 05/14/21 fenofibrate 160 mg PO DAILY 11/05/19 05/14/21 fluticasone propion-salmeterol 1 inh INHALATION BID 11/05/19 05/14/21 [Advair Diskus] cyclobenzaprine 10 mg PO BID 05/14/21 05/14/21 famotidine [Pepcid] 20 mg PO DAILY 05/14/21 05/14/21 nortriptyline 75 mg PO BID 05/14/21 05/14/21 <Ida Savage PA-C - Last Filed: 07/31/21 02:55> Allergies/adverse reactions: Allergies Allergy/AdvReac Type Severity Reaction Status Date / Time phenobarbital AdvReac Unknown Other Verified 07/15/21 21:49 <Ida Savage PA-C - Last Filed: 07/31/21 02:55> Review of Systems Review of Systems: CONSTITUTIONAL: Denies fever, chills, or sweats. CARDIOVASCULAR: Denies chest pain. RESPIRATORY: Denies dyspnea. GASTROINTESTINAL: Denies abdominal pain, nausea, vomiting, or diarrhea. Denies bowel/bladder incontinence. MUSCULOSKELETAL: Denies back pain, joint pain, or myalgia. NEUROLOGIC: Reports syncope, lightheadedness (resolved). Denies headache, numbness, or weakness. <Ida Savage PA-C - Last Filed: 07/31/21 02:55> All systems reviewed & are unremarkable except as noted in HPI and below <Ida Savage PA-C - Last Filed: 07/31/21 02:55> [facility] Past Medical History Medical History: Medical History Anxiety Arthritis Asthma COPD (chronic obstructive pulmonary disease) CVA (cerebral vascular accident) Depression Diabetes Epilepsy GERD (gastroesophageal reflux disease) GI bleed Head trauma Hyperlipidemia Hypertension IBS (irritable bowel syndrome) Sleep apnea <Ida Savage PA-C - Last Filed: 07/31/21 02:55> Surgical History Surgical History: Surgical History History of open reduction and internal fixation (ORIF) procedure Hx of craniotomy temporal lobe resection <Ida Savage PA-C - Last Filed: 07/31/21 02:55> Family History Family H
[2021-07-30 23:03] VITALS: BP 122/76; PULSE 78; RESP 18; O2SAT 99
== END 2021-07-30 23:04 | disposition home or self-care (01) ==
PROVIDERS: Emergency Provider Emergency Medicine; PCP Psychiatry & Neurology Neurology
DX: R55 Syncope and collapse (principal); J44.9 Chronic obstructive pulmonary disease, unspecified; E11.9 Type 2 diabetes mellitus without complications; G40.909 Epilepsy, unspecified, not intractable, without status epilepticus; E78.5 Hyperlipidemia, unspecified; I10 Essential (primary) hypertension; K58.9 Irritable bowel syndrome, unspecified; G47.30 Sleep apnea, unspecified; F41.9 Anxiety disorder, unspecified; F32.A Depression, unspecified; Z86.73 Personal history of transient ischemic attack (TIA), and cerebral infarction without residual deficits; Z79.82 Long term (current) use of aspirin
CPT/HCPCS: 99283

== ENCOUNTER 2021-08-06 20:51 | Emergency (ER) | payer MEDICARE, MEDICAID, SELFPAY ==
[2021-08-06 20:54] VITALS: BP 146/87; PULSE 86; RESP 18; TEMP 36.1; O2SAT 100
--- NOTE | 2021-08-06 21:30 | ED.EAR ---
HPI - Ear Problem General Chief complaint: Ear Stated complaint: Left ear hearing loss Time Seen by Provider: 08/06/21 20:55 History of Present Illness HPI Narrative: 56-year-old male presents the emergency room with complaints of decreased hearing in left ear. Patient states he is experiencing this for the last 3 to 4 weeks. Patient admits to frequent cerumen impaction, requiring him to go to ENT to get that irrigated. Denies pain, discharge. Related Data Home Medications Medication Instructions Recorded Confirmed Topamax 400 mg PO DAILY 04/04/19 05/14/21 divalproex [Depakote] 500 mg PO Q12H 04/04/19 05/14/21 albuterol sulfate 2 inh INHALATION Q4H PRN 11/05/19 05/14/21 aspirin 81 mg PO DAILY 11/05/19 05/14/21 atorvastatin 10 mg PO HS 11/05/19 05/14/21 enalapril maleate 5 mg PO DAILY 11/05/19 05/14/21 fenofibrate 160 mg PO DAILY 11/05/19 05/14/21 fluticasone propion-salmeterol 1 inh INHALATION BID 11/05/19 05/14/21 [Advair Diskus] cyclobenzaprine 10 mg PO BID 05/14/21 05/14/21 famotidine [Pepcid] 20 mg PO DAILY 05/14/21 05/14/21 nortriptyline 75 mg PO BID 05/14/21 05/14/21 Allergies Allergy/AdvReac Type Severity Reaction Status Date / Time phenobarbital AdvReac Unknown Other Verified 07/15/21 21:49 Review of Systems Review of Systems: CONSTITUTIONAL: Denies fever, chills, or sweats. EYES: Denies visual changes, redness, or discharge. ENT: Denies rhinorrhea, congestion, sore throat, or otalgia. Reports decreased hearing in left ear CARDIOVASCULAR: Denies chest pain, palpitations, or edema. RESPIRATORY: Denies cough or dyspnea. GASTROINTESTINAL: Denies abdominal pain, nausea, vomiting, or diarrhea. GENITOURINARY: Denies dysuria or hematuria. SKIN: Denies rash or itching. MUSCULOSKELETAL: Denies back pain, joint pain, or myalgia. NEUROLOGIC: Denies headache, numbness, dizziness, or weakness. PSYCHIATRIC: Denies anxiety or depression. PMFSH Past Medical History Medical History Anxiety Arthritis Asthma COPD (chronic obstructive pulmonary disease) CVA (cerebral vascular accident) Depression Diabetes Epilepsy GERD (gastroesophageal reflux disease) GI bleed Head trauma Hyperlipidemia Hypertension IBS (irritable bowel syndrome) Sleep apnea Surgical History Surgical History History of open reduction and internal fixation (ORIF) procedure Hx of craniotomy temporal lobe resection Family History Family History Mother Hypertension Congestive heart failure Social History Social History Social History: The patient is single and never had any children. He lives alone. He is on disability. Surrogate decision maker: Sophia Pozo (mother) Smoking status: Never smoker Alcohol intake: never Substance use: never Gender identity (if verbalized by the patient): Male Sexual Orientation (if Verbalized by the Patient): Straight or Heterosexual Spiritual care concerns: No Exam Narrative: GENERAL: Well-appearing, well-nourished, and in no acute distress. HEAD: Normocephalic, atraumatic. EYES: PERRLA and EOMI. ENT: Mucous membranes moist. Moderate amount of cerumen impaction in left ear. NECK: Supple. No adenopathy or masses. No carotid bruits or JVD CHEST: Clear to auscultation. No respiratory distress. No wheezes rales or rhonchi HEART: Regular rate and rhythm. No murmur heard. Normal peripheral pulses. EXTREMITIES: Normal range of motion. No edema. SKIN: Warm, dry, no rash. NEURO: No focal deficits. Alert and oriented x3. PSYCH: Normal mood and affect. Course Vital Signs Vital signs: Vital Signs Temperature 36.1 C L 08/06/21 20:54 Pulse Rate 86 08/06/21 20:54 Respiratory Rate 18 08/06/21 20:54 Blood Pressure 146/87 H 08/06/21 20:54 Pulse Oxim
== END 2021-08-06 21:40 | disposition home or self-care (01) ==
PROVIDERS: Emergency Provider Nurse Practitioner Family; PCP Psychiatry & Neurology Neurology
DX: H61.22 Impacted cerumen, left ear (principal); J44.9 Chronic obstructive pulmonary disease, unspecified; E11.9 Type 2 diabetes mellitus without complications; G40.909 Epilepsy, unspecified, not intractable, without status epilepticus; E78.5 Hyperlipidemia, unspecified; I10 Essential (primary) hypertension; G47.30 Sleep apnea, unspecified; K58.9 Irritable bowel syndrome, unspecified; M19.90 Unspecified osteoarthritis, unspecified site; K21.9 Gastro-esophageal reflux disease without esophagitis; F41.9 Anxiety disorder, unspecified; F32.A Depression, unspecified; Z86.73 Personal history of transient ischemic attack (TIA), and cerebral infarction without residual deficits; Z79.82 Long term (current) use of aspirin
CPT/HCPCS: 69209; 99281; 99282

== ENCOUNTER 2021-08-12 14:24 | Emergency (ER) | payer MEDICARE, MEDICAID, SELFPAY ==
[2021-08-12 14:39] VITALS: BP 107/58; PULSE 79; RESP 16; TEMP 36.8; O2SAT 100
== END 2021-08-12 17:40 | disposition left against medical advice (07) ==
PROVIDERS: PCP Psychiatry & Neurology Neurology
DX: R55 Syncope and collapse (principal)
CPT/HCPCS: 99199

== ENCOUNTER 2021-08-27 23:24 | Emergency (ER) | payer MEDICARE, MEDICAID, SELFPAY ==
--- NOTE | 2021-08-27 23:26 | ECG_ITS ---
Measurements Intervals [place] Rate: 75 P: 53 [place]: 215 QRS: -73 QRSD: 122 T: 39 QT: 421 QTc: 473 Interpretive Statements SINUS RHYTHM WITH FIRST DEGREE AV BLOCK LEFT ANTERIOR FASCICULAR BLOCK [QRS AXIS <= -45, QR IN I, RS IN II] POOR R-WAVE PROGRESSION ABNORMAL ECG Electronically Signed On 08-28-2021 11:19:11 CDT by Etienne San M.D.
[2021-08-27 23:29] VITALS: BP 129/57; PULSE 79; RESP 17; TEMP 36; O2SAT 99
[2021-08-27 23:50] LABS: Basophils Percent Auto 0.5 % (0.2-1.2); Eosinophils Absolute Auto 0.2 K/mm3 (0-0.3); Eosinophils Percent Auto 2.8 % (0-4.4); Hematocrit 42.9 % (42.0-52.0); Hemoglobin 13.7 g/dL (14.0-18.0); Immature Granulocyte Percent A 1.3 % (0-0.5); Lymphocytes Absolute Auto 3.43 K/mm3 (0.9-3.2); Lymphocytes Percent Auto 43.6 % (18.3-44.2); Mean Corpuscular HGB Conc 31.9 g/dl (32-36); Mean Corpuscular Hemoglobin 29.3 pg (26-34); Mean Corpuscular Volume 91.9 fl (80-100); Mean Platelet Volume 9.2 fl (7.4-10.4); Monocytes Absolute Auto 0.5 K/mm3 (0.1-0.6); Monocytes Percent Auto 6.6 % (2.6-8.5); Neutrophils Absolute Auto 3.6 K/mm3 (1.3-6.7); Neutrophils Percent Auto 45.2 % (45.5-73.1); Platelet Count Result 221 k/mm3 (150-375); Red Blood Count 4.67 M/mm3 (4.6-6.20); Red Cell Distribution Width 15.1 % (11.5-14.5); White Blood Count 7.9 K/mm3 (4.5-10.0)
--- NOTE | 2021-08-27 23:59 | ED.GENADULT ---
HPI - General Adult General Chief complaint: Syncope Stated complaint: syncopal episode at [facility] Time Seen by Provider: 08/27/21 23:49 Source: patient, EMS, RN notes reviewed and old records reviewed Mode of arrival: EMS Limitations: no limitations History of Present Illness HPI narrative: 56-year-old male with history of syncope presented to the emerge department for evaluation after having a syncopal episode at [facility]. Patient states he was having dinner at [facility] when he began to feel dizzy lightheaded and nauseous and had a syncopal episode. Patient suspects he was unconscious for about 10 minutes. Patient has presented to the emergency department multiple times for having this occur at [facility]. Patient states this happens 1-2 times a week. Patient has had extensive follow-up with his primary care physicians for this. In response to a negative EEG the patient is being weaned off of his seizure medications. Upon arrival to the emergency department patient states he feels back to his baseline, denies any complaint and is stating he is ready to go back home. Related Data Home Medications Medication Instructions Recorded Confirmed Topamax 400 mg PO DAILY 04/04/19 05/14/21 divalproex [Depakote] 500 mg PO Q12H 04/04/19 05/14/21 albuterol sulfate 2 inh INHALATION Q4H PRN 11/05/19 05/14/21 aspirin 81 mg PO DAILY 11/05/19 05/14/21 atorvastatin 10 mg PO HS 11/05/19 05/14/21 enalapril maleate 5 mg PO DAILY 11/05/19 05/14/21 fenofibrate 160 mg PO DAILY 11/05/19 05/14/21 fluticasone propion-salmeterol 1 inh INHALATION BID 11/05/19 05/14/21 [Advair Diskus] cyclobenzaprine 10 mg PO BID 05/14/21 05/14/21 famotidine [Pepcid] 20 mg PO DAILY 05/14/21 05/14/21 nortriptyline 75 mg PO BID 05/14/21 05/14/21 Allergies Allergy/AdvReac Type Severity Reaction Status Date / Time phenobarbital AdvReac Unknown Other Verified 07/15/21 21:49 Review of Systems Review of Systems: CONSTITUTIONAL: Syncopal episode denies, no current complaints EYES: Denies visual changes, redness, or discharge. ENT: Denies rhinorrhea, congestion, sore throat, or otalgia. CARDIOVASCULAR: Denies chest pain, palpitations, or edema. RESPIRATORY: Denies cough or dyspnea. GASTROINTESTINAL: Denies abdominal pain, nausea, vomiting, or diarrhea. GENITOURINARY: Denies dysuria or hematuria. SKIN: Denies rash or itching. MUSCULOSKELETAL: Denies back pain, joint pain, or myalgia. NEUROLOGIC: Denies headache, numbness, or weakness. All systems reviewed & are unremarkable except as noted in HPI and below PMFSH Past Medical History Medical History Anxiety Arthritis Asthma COPD (chronic obstructive pulmonary disease) CVA (cerebral vascular accident) Depression Diabetes Epilepsy GERD (gastroesophageal reflux disease) GI bleed Head trauma Hyperlipidemia Hypertension IBS (irritable bowel syndrome) Sleep apnea Surgical History Surgical History History of open reduction and internal fixation (ORIF) procedure Hx of craniotomy temporal lobe resection Family History Family History Mother Hypertension Congestive heart failure Social History Social History Social History: The patient is single and never had any children. He lives alone. He is on disability. Surrogate decision maker: Sophia Pozo (mother) Smoking status: Never smoker Alcohol intake: never Substance use: never Gender identity (if verbalized by the patient): Male Sexual Orientation (if Verbalized by the Patient): Straight or Heterosexual Spiritual care concerns: No Exam Narrative: APPEARANCE: Well appearing, no pain, no distress, well-nourished. HEAD: normocephalic, atraumatic. EYES: PERRLA/EOMI, conjunctivae clear. NOSE: Normal no drainage EARS:TMS
[2021-08-28] LABS: Alanine Aminotransferase 23 U/L (4-50); Albumin Level 4.3 g/dL (3.5-5.1); Alkaline Phosphatase 91 U/L (38-126); Anion Gap 12 mmol/L (8-16); Aspartate Amino Transferase 38 U/L (17-59); Bilirubin,Total 0.4 mg/dL (0.2-1.3); Blood Urea Nitrogen 19 mg/dL (9-20); Calcium 8.8 mg/dL (8.4-10.2); Carbon Dioxide 20 mmol/L (22-30); Chloride 105 mmol/L (98-107); Estimated Glomerular Filt Rate > 60; Glucose 220 mg/dL (65-110); Potassium 3.6 mmol/L (3.4-5.0); Sodium 137 mmol/L (137-145)
--- NOTE | 2021-08-28 00:25 | PC.NURSE ---
Ambulated without difficulty in hallway with body technician standby.
[2021-08-28 00:29] VITALS: BP 129/79; PULSE 108
[2021-08-28 00:30] VITALS: BP 125/74; PULSE 76
[2021-08-28 00:32] VITALS: BP 137/77; PULSE 73
[2021-08-28 00:47] VITALS: O2SAT 98
[2021-08-28 00:48] VITALS: BP 137/77; PULSE 75; RESP 15; O2SAT 97
== END 2021-08-28 01:01 | disposition home or self-care (01) ==
PROVIDERS: Emergency Provider Emergency Medicine; PCP Psychiatry & Neurology Neurology
DX: R55 Syncope and collapse (principal); J44.9 Chronic obstructive pulmonary disease, unspecified; E11.9 Type 2 diabetes mellitus without complications; G40.909 Epilepsy, unspecified, not intractable, without status epilepticus; E78.5 Hyperlipidemia, unspecified; K58.9 Irritable bowel syndrome, unspecified; I10 Essential (primary) hypertension; K21.9 Gastro-esophageal reflux disease without esophagitis; G47.30 Sleep apnea, unspecified; M19.90 Unspecified osteoarthritis, unspecified site; F41.9 Anxiety disorder, unspecified; F32.A Depression, unspecified; Z86.73 Personal history of transient ischemic attack (TIA), and cerebral infarction without residual deficits; Z79.82 Long term (current) use of aspirin
CPT/HCPCS: 36415; 80053; 85025; 93005; 99284

== ENCOUNTER 2021-09-12 21:07 | Emergency (ER) | payer MEDICARE, MEDICAID, SELFPAY ==
--- NOTE | ~2021-09-12 | XR_ITS ---
EXAMINATION: XR chest 2V DATE: 09/13/2021 00:50 INDICATION: Syncope TECHNIQUE: PA and lateral views of the chest were obtained. COMPARISON: Chest radiograph dated 07/15/2021 FINDINGS: The lungs remain clear with no focal airspace opacities, pulmonary edema, pleural effusion or pneumot horax. The cardiomediastinal silhouette is normal. 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 IMPRESSION: 1. No acute cardiopulmonary disease. Reviewed, dictated and finalized at location A.
[2021-09-12 21:41] VITALS: BP 109/74; PULSE 65; RESP 16; TEMP 36.6; O2SAT 99
--- NOTE | 2021-09-12 21:52 | PC.NURSE ---
Pt's mother arrived by private vehicle, reports she is physically unable to walk back to her vehicle as she is too short of breath. Does not want to check in but refuses to leave waiting room at this time.
--- NOTE | 2021-09-13 00:07 | ECG_ITS ---
Measurements Intervals [place] Rate: 68 P: 37 MO: 222 QRS: -54 QRSD: 118 T: 30 QT: 429 QTc: 458 Interpretive Statements SINUS RHYTHM WITH FIRST DEGREE AV BLOCK INCOMPLETE RIGHT BUNDLE BRANCH BLOCK LEFT ANTERIOR FASCICULAR BLOCK ABNORMAL ECG Electronically Signed On 09-13-2021 8:53:56 CDT by Nelson Nguyen D.O.
--- NOTE | 2021-09-13 00:09 | ED.SYNCOPE ---
HPI - Syncope General Chief Complaint: Syncope Stated Complaint: seizure at [facility] Time Seen by Provider: 09/12/21 23:22 History of Present Illness HPI narrative: Patient is a 56-year-old male who presents ER after having a episode of loss of consciousness while at [facility]. This is a typical presentation for the patient. Reports he was getting ringing in his years and then he lost consciousness. Apparently he was admitted to [facility] last month. There he had an EEG performed while they were observing him. He had several of these episodes but apparently there was no seizure activity. He was told that this is a stress reaction. He reports that he does have stressors in his life but did not go into detail. Denies any other complaints at this time. Related Data Home Medications Medication Instructions Recorded Confirmed Topamax 400 mg PO DAILY 04/04/19 05/14/21 divalproex [Depakote] 500 mg PO Q12H 04/04/19 05/14/21 albuterol sulfate 2 inh INHALATION Q4H PRN 11/05/19 05/14/21 aspirin 81 mg PO DAILY 11/05/19 05/14/21 atorvastatin 10 mg PO HS 11/05/19 05/14/21 enalapril maleate 5 mg PO DAILY 11/05/19 05/14/21 fenofibrate 160 mg PO DAILY 11/05/19 05/14/21 fluticasone propion-salmeterol 1 inh INHALATION BID 11/05/19 05/14/21 [Advair Diskus] cyclobenzaprine 10 mg PO BID 05/14/21 05/14/21 famotidine [Pepcid] 20 mg PO DAILY 05/14/21 05/14/21 nortriptyline 75 mg PO BID 05/14/21 05/14/21 Allergies Allergy/AdvReac Type Severity Reaction Status Date / Time phenobarbital AdvReac Unknown Other Verified 07/15/21 21:49 Review of Systems Review of Systems: All systems reviewed & are unremarkable except as noted in HPI and below Constitutional: Constitutional: Denies chills, Denies fever(s) and Denies weakness ENT: Denies nasal congestion and Denies sore throat Comments: Tinnitus Cardiovascular: Cardiovascular: Denies chest pain, Denies rapid heart rate and Denies radiating jaw, neck or arm pain Respiratory: Respiratory: Denies cough and Denies dyspnea Neurologic: Reports syncope, Denies headache(s), Denies focal weakness and Denies numbness PMFSH Past Medical History Medical History Anxiety Arthritis Asthma COPD (chronic obstructive pulmonary disease) CVA (cerebral vascular accident) Depression Diabetes Epilepsy GERD (gastroesophageal reflux disease) GI bleed Head trauma Hyperlipidemia Hypertension IBS (irritable bowel syndrome) Sleep apnea Surgical History Surgical History History of open reduction and internal fixation (ORIF) procedure Hx of craniotomy temporal lobe resection Family History Family History Mother Hypertension Congestive heart failure Social History Social History Social History: The patient is single and never had any children. He lives alone. He is on disability. Surrogate decision maker: Sophia Pozo (mother) Smoking status: Never smoker Alcohol intake: never Substance use: never Gender identity (if verbalized by the patient): Male Sexual Orientation (if Verbalized by the Patient): Straight or Heterosexual Spiritual care concerns: No Exam Narrative: GENERAL: Well-appearing, well-nourished, and in no acute distress. HEAD: Normocephalic, atraumatic. EYES: PERRL and EOMI. ENT: Mucous membranes moist. CHEST: Clear to auscultation. No respiratory distress. HEART: Regular rate and rhythm. Normal peripheral pulses. ABDOMEN: Soft, nontender, nondistended. EXTREMITIES: Normal range of motion. No edema. SKIN: Warm, dry, no rash. NEURO: Alert and oriented x3. PSYCH: Normal mood and affect. Course Course Emergency Course: Unremarkable work-up. Patient hydrated. Discharge home. Vital Signs Vital signs: Vital Signs Temperature 97.8 F
[2021-09-13 00:10] VITALS: BP 101/62; PULSE 69
[2021-09-13 00:13] VITALS: BP 99/69; PULSE 68
[2021-09-13 00:14] VITALS: BP 94/74; PULSE 74
[2021-09-13 00:31] VITALS: PULSE 65
[2021-09-13] MEDS: SODIUM CHLORIDE 0.9% IV 1,000 ML 999 ML IV CONT (00:32)
[2021-09-13 00:40] LABS: Basophils Percent Auto 0.4 % (0.2-1.2); Eosinophils Absolute Auto 0.2 K/mm3 (0-0.3); Eosinophils Percent Auto 2.6 % (0-4.4); Hematocrit 41.9 % (42.0-52.0); Hemoglobin 13.3 g/dL (14.0-18.0); Immature Granulocyte Absolute 0.07 K/mm3 (0.00-0.031); Immature Granulocyte Percent A 0.9 % (0-0.5); Lymphocytes Absolute Auto 3.48 K/mm3 (0.9-3.2); Lymphocytes Percent Auto 47.2 % (18.3-44.2); Mean Corpuscular HGB Conc 31.7 g/dl (32-36); Mean Corpuscular Hemoglobin 29.6 pg (26-34); Mean Corpuscular Volume 93.1 fl (80-100); Mean Platelet Volume 9.3 fl (7.4-10.4); Monocytes Absolute Auto 0.5 K/mm3 (0.1-0.6); Monocytes Percent Auto 7.2 % (2.6-8.5); Neutrophils Absolute Auto 3.1 K/mm3 (1.3-6.7); Neutrophils Percent Auto 41.7 % (45.5-73.1); Platelet Count Result 194 k/mm3 (150-375); Red Cell Distribution Width 14.1 % (11.5-14.5); White Blood Count 7.4 K/mm3 (4.5-10.0)
[2021-09-13 00:50] LABS: Anion Gap 11 mmol/L (8-16); Blood Urea Nitrogen 21 mg/dL (9-20); Calcium 9.3 mg/dL (8.4-10.2); Carbon Dioxide 21 mmol/L (22-30); Chloride 105 mmol/L (98-107); Estimated CRCL calculation 97 ml/min; Estimated Glomerular Filt Rate > 60; Glucose 163 mg/dL (65-110); Potassium 3.6 mmol/L (3.4-5.0); Sodium 137 mmol/L (137-145)
[2021-09-13 02:06] VITALS: BP 99/70; PULSE 67; RESP 16; O2SAT 97
== END 2021-09-13 02:46 | disposition home or self-care (01) ==
PROVIDERS: Emergency Provider Emergency Medicine; PCP Psychiatry & Neurology Neurology
DX: R56.9 Unspecified convulsions (principal); J44.9 Chronic obstructive pulmonary disease, unspecified; G40.909 Epilepsy, unspecified, not intractable, without status epilepticus; E11.9 Type 2 diabetes mellitus without complications; E78.5 Hyperlipidemia, unspecified; I10 Essential (primary) hypertension; K58.9 Irritable bowel syndrome, unspecified; K21.9 Gastro-esophageal reflux disease without esophagitis; G47.30 Sleep apnea, unspecified; M19.90 Unspecified osteoarthritis, unspecified site; F32.A Depression, unspecified; F41.9 Anxiety disorder, unspecified; Z86.73 Personal history of transient ischemic attack (TIA), and cerebral infarction without residual deficits; Z79.82 Long term (current) use of aspirin; I44.0 Atrioventricular block, first degree; I45.2 Bifascicular block
CPT/HCPCS: 36415; 71046; 80048; 85025; 93005; 96360; 99283; J7030

== ENCOUNTER 2021-10-28 22:32 | Emergency (ER) | payer MEDICARE, MEDICAID, SELFPAY ==
--- NOTE | 2021-10-28 22:34 | ECG_ITS ---
Measurements Intervals [place] Rate: 72 P: 47 [place]: 223 QRS: -62 QRSD: 126 T: 41 QT: 429 QTc: 472 Interpretive Statements SINUS RHYTHM WITH FIRST DEGREE AV BLOCK LEFT ANTERIOR FASCICULAR BLOCK [QRS AXIS <= -45, QR IN I, RS IN II] COMPARED TO ECG 09/13/2021 00:07:04 NO SIGNIFICANT CHANGES Electronically Signed On 10-29-2021 11:20:50 CDT by David Alcaraz M.D.
[2021-10-28 22:35] VITALS: BP 128/69; PULSE 75; RESP 12; TEMP 36.9; O2SAT 98
--- NOTE | 2021-10-28 22:47 | ED.DIZZY ---
HPI - Dizziness General Chief Complaint: Syncope Stated Complaint: SYNCOPE History of Present Illness HPI Narrative: 56-year-old male presents emergency room by ambulance. He was eating at [facility] and when all of a sudden he felt weak and collapsed. This is about the sixth or seventh month in a row where this patient was at [facility] and had 1 of these episodes. She had a questionable past history of seizures but he states he recently was in [place] and seen by a specialist and had EEG done which showed no seizure activity and they are taking him slowly off of his seizure medication. He did tell paramedics that he was having some slight chest discomfort but denies that to me at this time. He has no cough or congestion. Denies any chills or fevers. He states he feels fine at this point. Related Data Home Medications Medication Instructions Recorded Confirmed Topamax 400 mg PO DAILY 04/04/19 05/14/21 divalproex 500 mg tablet,delayed 500 mg PO Q12H 04/04/19 05/14/21 release (Depakote) albuterol sulfate 90 mcg/actuation 2 inh inhalation Q4H PRN Shortness 11/05/19 05/14/21 aerosol inhaler Of Breath aspirin 81 mg chewable tablet 81 mg PO DAILY 11/05/19 05/14/21 atorvastatin 10 mg tablet 10 mg PO HS 11/05/19 05/14/21 enalapril maleate 5 mg tablet 5 mg PO DAILY 11/05/19 05/14/21 fenofibrate 160 mg tablet 160 mg PO DAILY 11/05/19 05/14/21 fluticasone 250 mcg-salmeterol 50 1 inh inhalation BID 11/05/19 05/14/21 mcg/dose blistr powdr for inhalation (Advair Diskus) cyclobenzaprine 10 mg tablet 10 mg PO BID 05/14/21 05/14/21 famotidine 20 mg tablet (Pepcid) 20 mg PO DAILY 05/14/21 05/14/21 nortriptyline 75 mg capsule 75 mg PO BID 05/14/21 05/14/21 Allergies Allergy/AdvReac Type Severity Reaction Status Date / Time phenobarbital AdvReac Unknown Other Verified 07/15/21 21:49 Review of Systems Review of Systems: CONSTITUTIONAL: Denies fever, chills, or sweats. EYES: Denies visual changes, redness, or discharge. ENT: Denies rhinorrhea, congestion, sore throat, or otalgia. CARDIOVASCULAR: Denies chest pain, palpitations, or edema. RESPIRATORY: Denies cough or dyspnea. GASTROINTESTINAL: Denies abdominal pain, nausea, vomiting, or diarrhea. GENITOURINARY: Denies dysuria or hematuria. SKIN: Denies rash or itching. MUSCULOSKELETAL: Denies back pain, joint pain, or myalgia. NEUROLOGIC: Denies headache, numbness, or weakness. PSYCHIATRIC: Denies anxiety or depression. [facility] Past Medical History Medical History Anxiety Arthritis Asthma COPD (chronic obstructive pulmonary disease) CVA (cerebral vascular accident) Depression Diabetes Epilepsy GERD (gastroesophageal reflux disease) GI bleed Head trauma Hyperlipidemia Hypertension IBS (irritable bowel syndrome) Sleep apnea Surgical History Surgical History History of open reduction and internal fixation (ORIF) procedure Hx of craniotomy temporal lobe resection Family History Family History Mother Hypertension Congestive heart failure Social History Social History Social History: The patient is single and never had any children. He lives alone. He is on disability. Surrogate decision maker: Sophia Sánchez (mother) Smoking status: Never smoker Alcohol intake: never Substance use: never Gender identity (if verbalized by the patient): Male Sexual Orientation (if Verbalized by the Patient): Straight or Heterosexual Spiritual care concerns: No Exam Narrative: APPEARANCE: Well appearing, no pain or distress, well-nourished. Head normocephalic and atraumatic. EYES: PERRLA/EOMI, conjunctivae very clear. NOSE: Normal with no drainage EARS:TMS clear Gayathri Hamm, with good light reflex. THROAT: Pharynx clear, no exudate. NECK: Supple
[2021-10-28 23:00] LABS: Basophils Absolute Auto 0.1 K/mm3 (0.0-0.1); Basophils Percent Auto 0.6 % (0.2-1.2); Eosinophils Absolute Auto 0.2 K/mm3 (0-0.3); Eosinophils Percent Auto 1.9 % (0-4.4); Hematocrit 42.3 % (42.0-52.0); Hemoglobin 13.2 g/dL (14.0-18.0); Immature Granulocyte Absolute 0.09 K/mm3 (0.00-0.031); Immature Granulocyte Percent A 1.2 % (0-0.5); Lymphocytes Absolute Auto 3.12 K/mm3 (0.9-3.2); Lymphocytes Percent Auto 40.3 % (18.3-44.2); Mean Corpuscular HGB Conc 31.2 g/dl (32-36); Mean Platelet Volume 9.6 fl (7.4-10.4); Monocytes Absolute Auto 0.6 K/mm3 (0.1-0.6); Monocytes Percent Auto 7.5 % (2.6-8.5); Neutrophils Absolute Auto 3.8 K/mm3 (1.3-6.7); Neutrophils Percent Auto 48.5 % (45.5-73.1); Platelet Count Result 180 k/mm3 (150-375); Red Blood Count 4.55 M/mm3 (4.6-6.20); Red Cell Distribution Width 14.4 % (11.5-14.5); White Blood Count 7.7 K/mm3 (4.5-10.0)
[2021-10-28 23:10] LABS: Alanine Aminotransferase 25 U/L (6-50); Albumin Level 4.2 g/dL (3.5-5.1); Alkaline Phosphatase 75 U/L (38-126); Anion Gap 7 mmol/L (8-16); Aspartate Amino Transferase 42 U/L (17-59); Bilirubin,Total 0.5 mg/dL (0.2-1.3); Blood Urea Nitrogen 21 mg/dL (9-20); Calcium 8.6 mg/dL (8.4-10.2); Carbon Dioxide 22 mmol/L (22-30); Chloride 106 mmol/L (98-107); Estimated CRCL calculation 85 ml/min; Estimated Glomerular Filt Rate > 60; Glucose 171 mg/dL (65-110); Potassium 3.9 mmol/L (3.4-5.0); Sodium 135 mmol/L (137-145)
[2021-10-28 23:22] LABS: Troponin I < 0.012 ng/mL (0.000-0.034)
[2021-10-29] VITALS: BP 125/65; PULSE 73; RESP 18; O2SAT 98
== END 2021-10-29 00:01 | disposition home or self-care (01) ==
PROVIDERS: Emergency Provider Emergency Medicine; PCP Psychiatry & Neurology Neurology
DX: G40.909 Epilepsy, unspecified, not intractable, without status epilepticus (principal); J44.9 Chronic obstructive pulmonary disease, unspecified; E11.9 Type 2 diabetes mellitus without complications; I10 Essential (primary) hypertension; E78.5 Hyperlipidemia, unspecified; K21.9 Gastro-esophageal reflux disease without esophagitis; G47.30 Sleep apnea, unspecified; Z86.73 Personal history of transient ischemic attack (TIA), and cerebral infarction without residual deficits; Z79.82 Long term (current) use of aspirin; I44.0 Atrioventricular block, first degree; I44.4 Left anterior fascicular block
CPT/HCPCS: 36415; 80053; 84484; 85025; 93005; 99284

== ENCOUNTER 2022-01-11 17:54 | Emergency (ER) | payer MEDICARE, MEDICAID, SELFPAY ==
--- NOTE | ~2022-01-11 | XR_ITS ---
EXAMINATION: XR chest 2V Exam Date/Time: 01/11/2022 18:29 CDT HISTORY: GENERALIZED CP, DIZZINESS, VERTIGO X 1 DAY HX ANXIETY/BRONCH Comparison: 09/13/2021. RESULT: Lines, tubes, and devices: Loop recorder. Lungs and pleura: Clear. Cardiomediastinal silhouette: Stable. Other: No acute osseous or upper abdominal finding. IMPRESSION: No acute cardiopulmonary process. Reviewed, dictated and finalized at location K.
[2022-01-11 17:57] VITALS: BP 120/79; PULSE 81; RESP 18; TEMP 36.4; O2SAT 98
--- NOTE | 2022-01-11 18:00 | ECG_ITS ---
Measurements Intervals [place] Rate: 81 P: 53 [place]: 205 QRS: -75 QRSD: 124 T: 51 QT: 405 QTc: 472 Interpretive Statements SINUS RHYTHM LEFT ANTERIOR FASCICULAR BLOCK [QRS AXIS <= -45, QR IN I, RS IN II] COMPARED TO ECG 10/28/2021 22:46:34 NO SIGNIFICANT CHANGES Electronically Signed On 01-11-2022 20:04:02 CDT by Christina Ayon M.D.
[2022-01-11 18:21] LABS: Basophils Absolute Auto 0.1 K/mm3 (0.0-0.1); Basophils Percent Auto 0.6 % (0.2-1.2); Eosinophils Absolute Auto 0.2 K/mm3 (0-0.3); Eosinophils Percent Auto 2.4 % (0-4.4); Hematocrit 42.2 % (42.0-52.0); Hemoglobin 13.5 g/dL (14.0-18.0); Immature Granulocyte Absolute 0.08 K/mm3 (0.00-0.031); Lymphocytes Absolute Auto 3.47 K/mm3 (0.9-3.2); Lymphocytes Percent Auto 43.6 % (18.3-44.2); Mean Corpuscular Hemoglobin 30.3 pg (26-34); Mean Corpuscular Volume 94.8 fl (80-100); Mean Platelet Volume 10.1 fl (7.4-10.4); Monocytes Absolute Auto 0.6 K/mm3 (0.1-0.6); Monocytes Percent Auto 7.8 % (2.6-8.5); Neutrophils Absolute Auto 3.5 K/mm3 (1.3-6.7); Neutrophils Percent Auto 44.6 % (45.5-73.1); Platelet Count Result 202 k/mm3 (150-375); Red Blood Count 4.45 M/mm3 (4.6-6.20); Red Cell Distribution Width 14.1 % (11.5-14.5)
--- NOTE | 2022-01-11 18:31 | PC.NURSE ---
first call for patient with no answer at 1831
[2022-01-11 18:33] LABS: INR 1.1; Prothrombin Time 13.4 Seconds (11.1-14.7)
[2022-01-11 18:34] LABS: Alanine Aminotransferase 25 U/L (6-50); Albumin Level 4.3 g/dL (3.5-5.1); Alkaline Phosphatase 88 U/L (38-126); Anion Gap 16 mmol/L (8-16); Aspartate Amino Transferase 41 U/L (17-59); Bilirubin,Total 0.4 mg/dL (0.2-1.3); Blood Urea Nitrogen 23 mg/dL (9-20); Calcium 9.1 mg/dL (8.4-10.2); Carbon Dioxide 21 mmol/L (22-30); Chloride 102 mmol/L (98-107); Estimated CRCL calculation 84 ml/min; Estimated Glomerular Filt Rate > 60; Glucose 166 mg/dL (65-110); Lipase 225 U/L (23-300); Partial Thromboplastin Time 25.4 SECONDS (22.3-36.8); Sodium 139 mmol/L (137-145)
[2022-01-11 18:38] LABS: Potassium 3.6 mmol/L (3.4-5.0)
[2022-01-11 18:43] LABS: Troponin I < 0.012 ng/mL (0.000-0.034)
[2022-01-11 19:03] VITALS: BP 117/67; PULSE 78; RESP 18; O2SAT 98
[2022-01-11] MEDS: ASPIRIN 81 MG CHEWABLE TABLET 324 MG PO (19:05)
--- NOTE | 2022-01-11 19:28 | ED.GENADULT ---
HPI - General Adult General Chief complaint: Dizziness Stated complaint: near syncope Time Seen by Provider: 01/11/22 19:03 History of Present Illness HPI narrative: Patient is a 56-year-old male who presents to the ER with dizziness. Reports he was sitting there were eating when he developed a whooshing sound in his right ear. He then had some spinning dizziness that was accompanied by some nausea. Short-lived. It will recur when he changes positions and stands. Sometimes he has an aura of wishing he is here before he loses consciousness but that did not happen at this time. Denies fevers or chills or sweats. No new productive cough. Reports chronic shortness of breath related to his COPD. Denies chest pain despite telling to me earlier he had some chest tightness. He declines any chest pain throughout the day. Patient does endorse having sinus congestion with cough over the last couple of days. Related Data Home Medications Medication Instructions Recorded Confirmed Topamax 400 mg PO DAILY 04/04/19 05/14/21 divalproex 500 mg tablet,delayed 500 mg PO Q12H 04/04/19 05/14/21 release (Depakote) albuterol sulfate 90 mcg/actuation 2 inh inhalation Q4H PRN Shortness 11/05/19 05/14/21 aerosol inhaler Of Breath aspirin 81 mg chewable tablet 81 mg PO DAILY 11/05/19 05/14/21 atorvastatin 10 mg tablet 10 mg PO HS 11/05/19 05/14/21 enalapril maleate 5 mg tablet 5 mg PO DAILY 11/05/19 05/14/21 fenofibrate 160 mg tablet 160 mg PO DAILY 11/05/19 05/14/21 fluticasone 250 mcg-salmeterol 50 1 inh inhalation BID 11/05/19 05/14/21 mcg/dose blistr powdr for inhalation (Advair Diskus) cyclobenzaprine 10 mg tablet 10 mg PO BID 05/14/21 05/14/21 famotidine 20 mg tablet (Pepcid) 20 mg PO DAILY 05/14/21 05/14/21 nortriptyline 75 mg capsule 75 mg PO BID 05/14/21 05/14/21 Allergies Allergy/AdvReac Type Severity Reaction Status Date / Time phenobarbital AdvReac Unknown Other Verified 01/11/22 19:06 Review of Systems Review of Systems: All systems reviewed & are unremarkable except as noted in HPI and below Constitutional: Constitutional: Denies chills, Denies fatigue and Denies fever(s) Eyes: Eyes: Denies change in vision and Denies photophobia ENT: Reports vertigo, Reports nasal congestion and Reports sore throat Cardiovascular: Cardiovascular: Denies chest pain, Denies rapid heart rate and Denies radiating jaw, neck or arm pain Respiratory: Respiratory: Reports cough, Denies dyspnea and Denies wheezing Gastrointestinal: Gastrointestinal: Denies abdominal pain, Denies diarrhea, Reports nausea and Denies vomiting Neurologic: Denies syncope, Denies headache(s) and Denies focal weakness PMFSH Past Medical History Medical History Anxiety Arthritis Asthma COPD (chronic obstructive pulmonary disease) CVA (cerebral vascular accident) Depression Diabetes Epilepsy GERD (gastroesophageal reflux disease) GI bleed Head trauma Hyperlipidemia Hypertension IBS (irritable bowel syndrome) Sleep apnea Surgical History Surgical History History of open reduction and internal fixation (ORIF) procedure Hx of craniotomy temporal lobe resection Family History Family History Mother Hypertension Congestive heart failure Social History Social History Social History: The patient is single and never had any children. He lives alone. He is on disability. Surrogate decision maker: Sophiasergey Pozo (mother) Smoking status: Never smoker Alcohol intake: never Substance use: never Gender identity (if verbalized by the patient): Male Sexual Orientation (if Verbalized by the Patient): Straight or Heterosexual Spiritual care concerns: No Exam Narrative: GENERAL: Well-appearing, well-nourished, and
[2022-01-11] MEDS: MECLIZINE HCL 25 MG TABLET PO (19:53)
[2022-01-11 19:54] VITALS: BP 117/62; PULSE 79
[2022-01-11 19:55] VITALS: BP 118/70; PULSE 80
[2022-01-11 19:57] VITALS: BP 124/70; PULSE 81
== END 2022-01-11 21:15 | disposition home or self-care (01) ==
PROVIDERS: Emergency Medicine; Emergency Provider Emergency Medicine; PCP Psychiatry & Neurology Neurology
DX: R42 Dizziness and giddiness (principal); J44.9 Chronic obstructive pulmonary disease, unspecified; E11.9 Type 2 diabetes mellitus without complications; G40.909 Epilepsy, unspecified, not intractable, without status epilepticus; E78.5 Hyperlipidemia, unspecified; K58.9 Irritable bowel syndrome, unspecified; K21.9 Gastro-esophageal reflux disease without esophagitis; G47.30 Sleep apnea, unspecified; M19.90 Unspecified osteoarthritis, unspecified site; F41.9 Anxiety disorder, unspecified; F32.A Depression, unspecified; Z79.82 Long term (current) use of aspirin; I44.4 Left anterior fascicular block; R06.02 Shortness of breath
CPT/HCPCS: 36415; 71046; 80053; 83690; 84484; 85025; 85610; 85730; 93005; 99284; A9270

== ENCOUNTER 2022-02-18 22:08 | Emergency (ER) | payer MEDICARE, MEDICAID, SELFPAY ==
--- NOTE | ~2022-02-18 | CT_ITS ---
EXAMINATION: CT cervical spine wo con DATE: 02/19/2022 00:52 INDICATION: Neck pain. Status post fall. TECHNIQUE: Computed tomography (CT) of the cervical spine was performed without intravenous contrast. The dose-length product was 374 mGy-cm. Automated exposure control and iterative reconstruction tech Optov[employer] were employed. COMPARISON: CT dated 10/04/2020 FINDINGS: No acute fracture, subluxation or dislocation. Lung apices are normal. Vertebral body heigh ts are maintained. No evidence for perched facet. Craniovertebral junction within normal limits. Ther e is degenerative disc disease at C3-4 and C4-5. There is multilevel uncinate and facet hypertrophy. Odontoid process within normal limits. Mild dextrocurvature of the cervical spine. No significant par aspinal soft tissue abnormality. There is mild cervical lymphadenopathy, likely reactive. There are v arying degrees of central canal and foraminal stenosis. IMPRESSION: 1. No acute abnormality of the cervical spine. 2: Moderate cervical spondylosis. Reviewed, dictated and finalized at location A.
--- NOTE | ~2022-02-18 | CT_ITS ---
EXAMINATION: CT brain wo con DATE: 02/19/2022 00:52 INDICATION: Status post fall. Left posterior head injury. Worsening headache. TECHNIQUE: Computed tomography (CT) of the head was performed without intravenous contrast. The dose- length product was 681.00 mGy-cm. Automated exposure control and iterative reconstruction technique w ere employed. COMPARISON: CT dated 05/14/2021 FINDINGS: There is a craniotomy in the right temporal location with underlying encephalomalacia of th e temporal lobe. No acute intracranial hemorrhage, infarction, mass or mass effect. No ventriculomega ly or midline shift. There are scattered mild periventricular and subcortical white matter changes, m ost likely related to small vessel ischemic disease (microangiopathy). Paranasal sinuses and mastoids are pneumatized. No depressed skull fractures. IMPRESSION: 1. No acute intracranial abnormality. 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 3: Chronic age-related findings. Reviewed, dictated and finalized at location A.
[2022-02-18 22:41] VITALS: BP 101/53; PULSE 75; RESP 16; TEMP 36.2; O2SAT 100
--- NOTE | 2022-02-18 23:53 | ED.BACK ---
HPI - Back Pain/Injury General Chief Complaint: Back Pain/Injury <Jackie Owens PA-C - Last Filed: 02/19/22 02:42> Stated Complaint: Head/neck pain <Jackie Owens PA-C - Last Filed: 02/19/22 02:42> Time Seen by Provider: 02/18/22 23:46 <Jackie Owens PA-C - Last Filed: 02/19/22 02:42> History of Present Illness HPI Narrative: Patient is a 56-year-old male with a history of pseudoseizures, currently on Depakote, here for evaluation of posterior headache. Patient states that he had a mechanical fall about a week ago, striking the back of his head against the ground. Since then he has developed a gradual headache and neck pain. He notes stiffness in his neck with range of motion. He denies any acute visual changes, weakness, chest pain, fevers or chills, nausea or vomiting. Does not take any blood thinner medications. <Jackie Owens PA-C - Last Filed: 02/19/22 02:42> Related Data Home Medications: Home Medications Medication Instructions Recorded Confirmed Topamax 400 mg PO DAILY 04/04/19 05/14/21 divalproex 500 mg tablet,delayed 500 mg PO Q12H 04/04/19 05/14/21 release (Depakote) albuterol sulfate 90 mcg/actuation 2 inh inhalation Q4H PRN Shortness 11/05/19 05/14/21 aerosol inhaler Of Breath aspirin 81 mg chewable tablet 81 mg PO DAILY 11/05/19 05/14/21 atorvastatin 10 mg tablet 10 mg PO HS 11/05/19 05/14/21 enalapril maleate 5 mg tablet 5 mg PO DAILY 11/05/19 05/14/21 fenofibrate 160 mg tablet 160 mg PO DAILY 11/05/19 05/14/21 fluticasone 250 mcg-salmeterol 50 1 inh inhalation BID 11/05/19 05/14/21 mcg/dose blistr powdr for inhalation (Advair Diskus) cyclobenzaprine 10 mg tablet 10 mg PO BID 05/14/21 05/14/21 famotidine 20 mg tablet (Pepcid) 20 mg PO DAILY 05/14/21 05/14/21 nortriptyline 75 mg capsule 75 mg PO BID 05/14/21 05/14/21 <Jackie Owens PA-C - Last Filed: 02/19/22 02:42> Allergies/Adverse Reactions: Allergies Allergy/AdvReac Type Severity Reaction Status Date / Time phenobarbital AdvReac Unknown Other Verified 01/11/22 19:06 <Jackie Owens PA-C - Last Filed: 02/19/22 02:42> Review of Systems Review of Systems: Gen.: Denies fevers or chills Eyes: Denies eye pain or visual change ENT: Denies congestion Respiratory: Denies shortness of breath or cough CV: Denies chest pain or palpitations GI: Denies abdominal pain nausea, emesis or diarrhea denies burning, urgency, frequency or hematuria Musculoskeletal: Reports posterior neck pain. Denies back pain or muscle pain Neuro: Reports posterior headache. Denies numbness, tingling, weakness or focal weakness Skin: Denies rash Except as documented, all other systems reviewed and negative <Jackie Owens PA-C - Last Filed: 02/19/22 02:42> [facility] Past Medical History Medical History: Medical History Anxiety Arthritis Asthma COPD (chronic obstructive pulmonary disease) CVA (cerebral vascular accident) Depression Diabetes Epilepsy GERD (gastroesophageal reflux disease) GI bleed Head trauma Hyperlipidemia Hypertension IBS (irritable bowel syndrome) Sleep apnea <Jackie Owens PA-C - Last Filed: 02/19/22 02:42> Surgical History Surgical History: Surgical History History of open reduction and internal fixation (ORIF) procedure Hx of craniotomy temporal lobe resection <Jackie Owens PA-C - Last Filed: 02/19/22 02:42> Family History Family History: Family History Mother Hypertension Congestive heart failure <Jackie Owens PA-C - Last Filed: 02/19/22 02:42> Social History Social History: Social History Social History: The patient is single and never had any children
[2022-02-19 01:34] VITALS: PULSE 74; RESP 18; O2SAT 99
== END 2022-02-19 01:36 | disposition home or self-care (01) ==
PROVIDERS: Emergency Provider Preventive Medicine Aerospace Medicine; PCP Psychiatry & Neurology Neurology
DX: R51.9 Headache, unspecified (principal); S19.9XXA Unspecified injury of neck, initial encounter; G40.909 Epilepsy, unspecified, not intractable, without status epilepticus; J44.9 Chronic obstructive pulmonary disease, unspecified; E11.9 Type 2 diabetes mellitus without complications; E78.5 Hyperlipidemia, unspecified; K58.9 Irritable bowel syndrome, unspecified; K21.9 Gastro-esophageal reflux disease without esophagitis; M19.90 Unspecified osteoarthritis, unspecified site; G47.30 Sleep apnea, unspecified; F41.9 Anxiety disorder, unspecified; F32.A Depression, unspecified; Z86.73 Personal history of transient ischemic attack (TIA), and cerebral infarction without residual deficits; Z79.82 Long term (current) use of aspirin; M47.812 Spondylosis without myelopathy or radiculopathy, cervical region; G93.89 Other specified disorders of brain; W19.XXXA Unspecified fall, initial encounter
CPT/HCPCS: 70450; 72125; 99284

== ENCOUNTER 2022-03-06 15:48 | Emergency (ER) | payer MEDICARE, MEDICAID, SELFPAY ==
[2022-03-06] VITALS (9 sets, daily range): BP systolic 117–160; BP diastolic 56–89; PULSE 65–81; RESP 14–19; TEMP 36.7; O2SAT 97–100
--- NOTE | ~2022-03-06 | CT_ITS ---
EXAMINATION: CT abdomen pelvis w con DATE: 03/06/2022 19:57 INDICATION: Generalized abdominal pain TECHNIQUE: Computed tomography (CT) of the abdomen and pelvis was performed with 100 CC Omnipaque 350 intravenous contrast. Automated exposure control and iterative reconstruction technique were employe d. Exam dose: 1270.25 mGy-cm total exam DLP. COMPARISON: 08/27/2018 CT abdomen pelvis FINDINGS: Mild discoid atelectasis or scarring in the lung bases. Normal heart size. No pericardial or pleural effusion. The liver, gallbladder, bile ducts, pancreas, pancreatic duct and adrenal glands are unremarkable. No renal mass lesion or urinary tract calculus or hydroureteronephrosis is detected. The urinary bladde r, prostate gland and seminal vesicles are unremarkable. Small fat-containing left inguinal hernia. Normal caliber of the abdominal aorta. No intraperitoneal or retroperitoneal or pelvic mass lesion or adenopathy or ascites. Normal appendix. No bowel obstruction, bowel wall thickening, pneumatosis or intraperitoneal free air is detected. Old healed right posterior 11th rib fracture. Severe degenerative disease and minimal retrolisthesis at L5-S1. Prominent Schmorl's node of the supe rior vertebral endplate of L4. Diffuse idiopathic skeletal hyperostosis of the lower thoracic spine. No suspicious osteolytic or osteoblastic lesions are noted. IMPRESSION: Normal appendix Small fat-containing left inguinal hernia Reviewed, dictated and finalized at Location [facility]. Reviewed, dictated and finalized at location A.
[2022-03-06 18:57] LABS: Basophils Percent Auto 0.4 % (0.2-1.2); Eosinophils Absolute Auto 0.2 K/mm3 (0-0.3); Eosinophils Percent Auto 2.6 % (0-4.4); Hematocrit 39.1 % (42.0-52.0); Hemoglobin 12.6 g/dL (14.0-18.0); Immature Granulocyte Absolute 0.06 K/mm3 (0.00-0.031); Immature Granulocyte Percent A 0.8 % (0-0.5); Lymphocytes Absolute Auto 3.21 K/mm3 (0.9-3.2); Mean Corpuscular HGB Conc 32.2 g/dl (32-36); Mean Corpuscular Hemoglobin 30.4 pg (26-34); Mean Corpuscular Volume 94.4 fl (80-100); Mean Platelet Volume 9.5 fl (7.4-10.4); Monocytes Absolute Auto 0.6 K/mm3 (0.1-0.6); Monocytes Percent Auto 7.7 % (2.6-8.5); Neutrophils Absolute Auto 3.2 K/mm3 (1.3-6.7); Neutrophils Percent Auto 44.5 % (45.5-73.1); Platelet Count Result 191 k/mm3 (150-375); Red Blood Count 4.14 M/mm3 (4.6-6.20); Red Cell Distribution Width 13.7 % (11.5-14.5); White Blood Count 7.3 K/mm3 (4.5-10.0)
[2022-03-06 19:23] LABS: Alanine Aminotransferase 29 U/L (6-50); Alkaline Phosphatase 71 U/L (38-126); Anion Gap 14 mmol/L (8-16); Aspartate Amino Transferase 40 U/L (17-59); Bilirubin,Total 0.3 mg/dL (0.2-1.3); Blood Urea Nitrogen 17 mg/dL (9-20); Calcium 8.5 mg/dL (8.4-10.2); Carbon Dioxide 22 mmol/L (22-30); Chloride 106 mmol/L (98-107); Estimated CRCL calculation 106 ml/min; Estimated Glomerular Filt Rate > 60; Glucose 113 mg/dL (65-110); Lipase 162 U/L (23-300); Potassium 3.4 mmol/L (3.4-5.0); Sodium 142 mmol/L (137-145)
[2022-03-06] MEDS: ONDANSETRON INJ 4 MG/2 ML VIAL IV PUSH (20:02)
--- NOTE | 2022-03-06 20:09 | ED.GENADULT ---
HPI - General Adult General Chief complaint: Abdominal Pain Stated complaint: abd pain Time Seen by Provider: 03/06/22 19:14 History of Present Illness HPI narrative: Patient is a 57-year-old gentleman who presents emergency department with chief complaint of abdominal pain. The patient reports for the last several days he has been having an uncomfortable feeling through his abdomen is noticed that his abdomen has become progressively more distended. The patient reports that he has had several days of no bowel movements but did have a normal bowel movement today. The patient states that he has early CAD whenever he eats and reports that it hurts whenever he drinks liquids. Patient reports no prior abdominal surgeries the patient reports no fever. Patient reports symptoms or not improved by anything. Related Data Home Medications Medication Instructions Recorded Confirmed Topamax 400 mg PO DAILY 04/04/19 05/14/21 divalproex 500 mg tablet,delayed 500 mg PO Q12H 04/04/19 05/14/21 release (Depakote) albuterol sulfate 90 mcg/actuation 2 inh inhalation Q4H PRN Shortness 11/05/19 05/14/21 aerosol inhaler Of Breath aspirin 81 mg chewable tablet 81 mg PO DAILY 11/05/19 05/14/21 atorvastatin 10 mg tablet 10 mg PO HS 11/05/19 05/14/21 enalapril maleate 5 mg tablet 5 mg PO DAILY 11/05/19 05/14/21 fenofibrate 160 mg tablet 160 mg PO DAILY 11/05/19 05/14/21 fluticasone 250 mcg-salmeterol 50 1 inh inhalation BID 11/05/19 05/14/21 mcg/dose blistr powdr for inhalation (Advair Diskus) famotidine 20 mg tablet (Pepcid) 20 mg PO DAILY 05/14/21 05/14/21 Allergies Allergy/AdvReac Type Severity Reaction Status Date / Time phenobarbital AdvReac Unknown Other Verified 03/06/22 18:54 Review of Systems Review of Systems: A 10 system review of systems was completed on the patient and is negative except for what is stated in the HPI. Nursing and ancillary documentation was reviewed. [facility] Past Medical History Medical History Anxiety Arthritis Asthma COPD (chronic obstructive pulmonary disease) CVA (cerebral vascular accident) Depression Diabetes Epilepsy GERD (gastroesophageal reflux disease) GI bleed Head trauma Hyperlipidemia Hypertension IBS (irritable bowel syndrome) Sleep apnea Surgical History Surgical History History of open reduction and internal fixation (ORIF) procedure Hx of craniotomy temporal lobe resection Family History Family History Mother Hypertension Congestive heart failure Social History Social History Social History: The patient is single and never had any children. He lives alone. He is on disability. Surrogate decision maker: Sophia Pozo (mother) Smoking status: Never smoker Alcohol intake: never Substance use: never Gender identity (if verbalized by the patient): Male Sexual Orientation (if Verbalized by the Patient): Straight or Heterosexual Spiritual care concerns: No Exam Narrative: GENERAL: Well-appearing, well-nourished, and in no acute distress. HEAD: Normocephalic, atraumatic. EYES: PERRLA and EOMI. ENT: Nares clear, no rhinorrhea or epistaxis. Mucous membranes moist. NECK: Supple. CHEST: Clear to auscultation. No respiratory distress. HEART: Regular rate and rhythm. No murmur heard. Normal peripheral pulses. ABDOMEN: Soft, diffusely tender to palpation, nondistended, normal active bowel sounds. EXTREMITIES: Normal range of motion. No edema. SKIN: Warm, dry, no rash. NEURO: No focal deficits. Alert and oriented x3. PSYCH: Normal mood and affect. Course Vital Signs Vital signs: Vital Signs Temperature 36.7 C 03/06/22 15:53 Pulse Rate 81 03/06/22 15:53 Respiratory Rate 14 03/06/22 15:53
--- NOTE | 2022-03-06 20:30 | PC.NURSE ---
RN closed pt. curtain to maintain pt. privacy. pt. opened curtain. pt. educated they cannot open curtain. pt. asked to remain in chair or bed and not open curtain
[2022-03-06 20:52] LABS: Add Urine Microscopic? YES; Appearance Urine Clear (Clear); Bilirubin Urine Negative (Negative); Blood Urine Negative (Negative); Color Urine Straw (Yellow); Glucose Urine UA 3+ mg/dL (Negative); Ketones Urine Negative (Negative); Leukocyte Esterase Ur Negative LEU/UL (Negative); Mucus Urine Rare /lpf; Nitrate Urine Negative (Negative); Protein Urine Negative (Negative); WBC Urine 0-3 /hpf
--- NOTE | 2022-03-06 21:00 | PC.NURSE ---
pt. repeatedly moving curtain open. pt. educated curtain is to remain closed for pt. privacy. pt. opened curtain after RN left room. ED security called due to pt. refusing to follow policy.
--- NOTE | 2022-03-06 21:26 | PC.NURSE ---
pt. sitting in chair and reports he feels dizzy and lightheaded. two RNs attempted to assist pt into bed. pt. gripping chair and refusing to let go. pt. educated on risks of remaining in chair. pt. states I will be fine. ED RN educated pt. on all this risks that could occur if. pt. does not get into bed. pt. refusing to be moved. ERP and building services coordinator made aware. pt. has ed security at bedside
[2022-03-06 21:27] LABS: Specific Grav Ur > 1.060 (1.001-1.035)
--- NOTE | 2022-03-06 21:33 | PC.NURSE ---
pt. neurologically intact. denies being dizzy or lightheaded at this time and requesting to leave. ERP made aware.
== END 2022-03-06 21:45 | disposition home or self-care (01) ==
PROVIDERS: Emergency Medicine; Emergency Provider Emergency Medicine; PCP Internal Medicine
DX: R10.13 Epigastric pain (principal); J44.9 Chronic obstructive pulmonary disease, unspecified; E11.9 Type 2 diabetes mellitus without complications; K21.9 Gastro-esophageal reflux disease without esophagitis; Z79.82 Long term (current) use of aspirin; E78.5 Hyperlipidemia, unspecified; I10 Essential (primary) hypertension; J45.909 Unspecified asthma, uncomplicated; G40.909 Epilepsy, unspecified, not intractable, without status epilepticus
CPT/HCPCS: 36415; 74177; 80053; 81001; 83690; 85025; 99284; J2405; Q9967

== ENCOUNTER 2022-04-24 17:10 | Emergency (ER) | payer MEDICARE, MEDICAID, SELFPAY ==
--- NOTE | ~2022-04-24 | XR_ITS ---
EXAMINATION: XR knee RT 3V DATE: 04/25/2022 02:33 INDICATION: Fall. TECHNIQUE: 3 views of right knee were obtained. COMPARISON: None. FINDINGS: Bone alignment is normal. No fracture. There is mild osteoarthritis of lateral and patellof emoral compartments characterized by tiny osteophytes. No joint space narrowing. No knee joint effusi on. IMPRESSION: 1. Mild right knee osteoarthritis. Reviewed, dictated and finalized at location A. DULING SPECIALIST
--- NOTE | ~2022-04-24 | XR_ITS ---
EXAMINATION: XR knee LT 3V DATE: 04/25/2022 02:33 INDICATION: Left knee pain. Fall. TECHNIQUE: 3 views of left knee were obtained. COMPARISON: None. FINDINGS: Bone alignment is normal. No fracture. Joint spaces are well maintained. There is no knee j oint effusion. IMPRESSION: 1. Normal left knee. Reviewed, dictated and finalized at location A. WELL SERVICES DISPATCHER IMPRESSION: 1. Normal left knee.
[2022-04-24 17:17] VITALS: BP 125/70; PULSE 76; RESP 18; TEMP 35.7; O2SAT 96
[2022-04-24 17:52] LABS: Basophils Percent Auto 0.6 % (0.2-1.2); Eosinophils Absolute Auto 0.2 K/mm3 (0-0.3); Eosinophils Percent Auto 2.4 % (0-4.4); Hematocrit 50.2 % (42.0-52.0); Immature Granulocyte Absolute 0.03 K/mm3 (0.00-0.031); Immature Granulocyte Percent A 0.5 % (0-0.5); Lymphocytes Absolute Auto 2.68 K/mm3 (0.9-3.2); Lymphocytes Percent Auto 43.2 % (18.3-44.2); Mean Corpuscular HGB Conc 29.9 g/dl (32-36); Mean Corpuscular Hemoglobin 28.8 pg (26-34); Mean Corpuscular Volume 96.4 fl (80-100); Mean Platelet Volume 9.9 fl (7.4-10.4); Monocytes Absolute Auto 0.5 K/mm3 (0.1-0.6); Monocytes Percent Auto 7.6 % (2.6-8.5); Neutrophils Absolute Auto 2.8 K/mm3 (1.3-6.7); Neutrophils Percent Auto 45.7 % (45.5-73.1); Platelet Count Result 146 k/mm3 (150-375); Red Blood Count 5.21 M/mm3 (4.6-6.20); White Blood Count 6.2 K/mm3 (4.5-10.0)
[2022-04-24 17:53] LABS: Appearance Urine Clear (Clear); Bilirubin Urine Negative (Negative); Blood Urine Negative (Negative); Color Urine Yellow (Yellow); Glucose Urine UA 3+ mg/dL (Negative); Ketones Urine Negative (Negative); Leukocyte Esterase Ur Negative LEU/UL (Negative); Nitrate Urine Negative (Negative); Protein Urine Negative (Negative); Specific Grav Ur 1.015 (1.001-1.035); Urobilinogen Urine 0.2 mg/dL (<2.0)
[2022-04-24 18:10] LABS: Mucus Urine Rare /lpf
[2022-04-24 18:14] LABS: Add Urine Microscopic? YES
[2022-04-24 18:17] LABS: Alanine Aminotransferase 24 U/L (6-50); Albumin Level 4.2 g/dL (3.5-5.1); Alkaline Phosphatase 107 U/L (38-126); Anion Gap 13 mmol/L (8-16); Aspartate Amino Transferase 38 U/L (17-59); Bilirubin,Total 0.4 mg/dL (0.2-1.3); Blood Urea Nitrogen 15 mg/dL (9-20); Carbon Dioxide 19 mmol/L (22-30); Chloride 109 mmol/L (98-107); Estimated CRCL calculation 106 ml/min; Estimated Glomerular Filt Rate > 60; Glucose 148 mg/dL (65-110); Lipase 209 U/L (23-300); Potassium 3.6 mmol/L (3.4-5.0); Sodium 141 mmol/L (137-145)
[2022-04-24 19:01] LABS: Hypochromasia 1+ (NORMAL)
[2022-04-24 19:02] LABS: Schistocytes None Seen (NORMAL)
[2022-04-25 01:44] LABS: Influenza A QL RT-PCR Negative (Negative); Influenza B QL RT-PCR Negative (Negative); SARS-CoV-2 RNA PCR Negative
--- NOTE | 2022-04-25 01:56 | ED.GENADULT ---
HPI - General Adult General Chief complaint: Weakness Stated complaint: WEAKNESS, LEGS HEAVY Time Seen by Provider: 04/25/22 00:47 History of Present Illness HPI narrative: This is a 57-year-old male who is well known to our emergency department presenting to ED with weakness. Patient said that he has had cough congestion and runny nose for the last several days. He has also had multiple episodes of diarrhea. He denies nausea and vomiting. He denies fever, chills, chest pain difficulty breathing. Patient came in because he was walking around earlier today he felt his legs give out he fell to his knees. Now his knees hurt. He has been ambulatory since the fall. Otherwise the patient is tolerating p.o.. Related Data Home Medications Medication Instructions Recorded Confirmed Topamax 400 mg PO DAILY 04/04/19 05/14/21 divalproex 500 mg tablet,delayed 500 mg PO Q12H 04/04/19 05/14/21 release (Depakote) albuterol sulfate 90 mcg/actuation 2 inh inhalation Q4H PRN Shortness 11/05/19 05/14/21 aerosol inhaler Of Breath aspirin 81 mg chewable tablet 81 mg PO DAILY 11/05/19 05/14/21 atorvastatin 10 mg tablet 10 mg PO HS 11/05/19 05/14/21 enalapril maleate 5 mg tablet 5 mg PO DAILY 11/05/19 05/14/21 fenofibrate 160 mg tablet 160 mg PO DAILY 11/05/19 05/14/21 fluticasone 250 mcg-salmeterol 50 1 inh inhalation BID 11/05/19 05/14/21 mcg/dose blistr powdr for inhalation (Advair Diskus) famotidine 20 mg tablet (Pepcid) 20 mg PO DAILY 05/14/21 05/14/21 Allergies Allergy/AdvReac Type Severity Reaction Status Date / Time phenobarbital AdvReac Unknown Other Verified 03/06/22 18:54 Review of Systems Review of Systems: CONSTITUTIONAL: Denies night sweats. EYES: No eye pain ENT: Denies rhinorrhea CARDIOVASCULAR: Denies palpitations RESPIRATORY: Denies hemoptysis GASTROINTESTINAL: Denies hematemesis GENITOURINARY: Denies hematuria. SKIN: Denies rash MUSCULOSKELETAL: Denies myalgia. NEUROLOGIC: Denies weakness. PSYCHIATRIC: Denies delusions PMFSH Past Medical History Medical History Anxiety Arthritis Asthma COPD (chronic obstructive pulmonary disease) CVA (cerebral vascular accident) Depression Diabetes Epilepsy GERD (gastroesophageal reflux disease) GI bleed Head trauma Hyperlipidemia Hypertension IBS (irritable bowel syndrome) Sleep apnea Surgical History Surgical History History of open reduction and internal fixation (ORIF) procedure Hx of craniotomy temporal lobe resection Family History Family History Mother Hypertension Congestive heart failure Social History Social History Social History: The patient is single and never had any children. He lives alone. He is on disability. Surrogate decision maker: Sophia Pozo (mother) Smoking status: Never smoker Alcohol intake: never Substance use: never Gender identity (if verbalized by the patient): Male Sexual Orientation (if Verbalized by the Patient): Straight or Heterosexual Spiritual care concerns: No Exam Narrative: APPEARANCE: No apparent distress. Patient has some sort of developmental delay Head: atraumatic. EYES: EOMI, NOSE: Atraumatic NECK: Trachea midline RESPIRATORY: No increased rate of breathing clear auscultation bilaterally with no increased respiratory rate CARDIOVASCULAR: RRR, no peripheral edema ABDOMINAL: Non-distended MUSCULOSKELETAl: No obvious deformities, patient is able to ambulate without difficulty NEURO: Alert. Moving 4/4 extremities SKIN:: Warm, dry. Normal color PSYCHIATRIC: Normal affect Course Vital Signs Vital signs: Vital Signs Temperature 96.2 F L 04/24/22 17:17 Pulse Rate 76 04/24/22 17:17 Respiratory Rate 18 04/24/22 17:17 Blood Pressure 125/70
[2022-04-25 02:00] VITALS: PULSE 65; RESP 18; O2SAT 98
[2022-04-25] MEDS: SODIUM CHLORIDE 0.9% IV 2,000 ML 999 ML IV CONT (03:21)
[2022-04-25] MEDS: ACETAMINOPHEN 500 MG TABLET 1000 MG PO (03:22)
[2022-04-25] MEDS: IBUPROFEN 400 MG TABLET 800 MG PO (03:22)
--- NOTE | 2022-04-25 05:07 | ECG_ITS ---
Measurements Intervals [place] Rate: 80 P: 57 CA: 213 QRS: -64 QRSD: 126 T: 57 QT: 427 QTc: 494 Interpretive Statements SINUS RHYTHM WITH FIRST DEGREE AV BLOCK LEFT ANTERIOR FASCICULAR BLOCK [QRS AXIS <= -45, QR IN I, RS IN II] INFERIOR MYOCARDIAL INFARCTION , PROBABLY OLD COMPARED TO ECG 01/11/2022 18:03:32 FIRST DEGREE AV BLOCK NOW PRESENT Electronically Signed On 04-25-2022 16:26:00 [employer] SERVICE OFFICER by Yandel Covarrubias M.D.
[2022-04-25 08:15] VITALS: BP 137/87; PULSE 78; RESP 16; O2SAT 100
== END 2022-04-25 08:20 | disposition home or self-care (01) ==
PROVIDERS: Emergency Medicine; Emergency Provider Emergency Medicine; PCP Internal Medicine
DX: E86.0 Dehydration (principal); R19.7 Diarrhea, unspecified; M25.562 Pain in left knee; M25.561 Pain in right knee; Z20.822 Contact with and (suspected) exposure to COVID-19; J44.9 Chronic obstructive pulmonary disease, unspecified; E11.9 Type 2 diabetes mellitus without complications; G40.909 Epilepsy, unspecified, not intractable, without status epilepticus; E78.5 Hyperlipidemia, unspecified; I10 Essential (primary) hypertension; K21.9 Gastro-esophageal reflux disease without esophagitis; K58.9 Irritable bowel syndrome, unspecified; M17.11 Unilateral primary osteoarthritis, right knee; F41.9 Anxiety disorder, unspecified; F32.A Depression, unspecified; G47.30 Sleep apnea, unspecified; Z86.73 Personal history of transient ischemic attack (TIA), and cerebral infarction without residual deficits; Z79.82 Long term (current) use of aspirin; I44.0 Atrioventricular block, first degree; I44.4 Left anterior fascicular block; R94.31 Abnormal electrocardiogram [ECG] [EKG]
CPT/HCPCS: 36415; 73562; 80053; 81001; 83690; 85025; 87636; 93005; 96360; 96361; 99284; A9270; J7030

== ENCOUNTER 2022-05-11 15:47 | Emergency (ER) | payer MEDICARE, MEDICAID, SELFPAY ==
--- NOTE | ~2022-05-11 | XR_ITS ---
EXAMINATION: XR chest 2V DATE: 05/11/2022 17:25 INDICATION: Chest pain. Shortness of breath. TECHNIQUE: Frontal and lateral views of the chest were obtained. COMPARISON: Chest 2 views 01/11/2022, CT abdomen and pelvis 03/06/2022 FINDINGS: There is mild atelectasis in lingula. No pleural effusion or pneumothorax. The heart size i s normal. There is an electronic implant in left anterior chest wall. IMPRESSION: 1. Mild atelectasis in lingula. Reviewed, dictated and finalized at location A. [facility] [employer]
[2022-05-11 16:15] VITALS: BP 108/49; PULSE 102; RESP 16; TEMP 36.3; O2SAT 99
--- NOTE | 2022-05-11 16:20 | ECG_ITS ---
Measurements Intervals [place] Rate: 94 P: 51 MN: 213 QRS: -87 QRSD: 119 T: 48 QT: 392 QTc: 493 Interpretive Statements SINUS RHYTHM WITH FIRST DEGREE AV BLOCK LEFT ANTERIOR FASCICULAR BLOCK [QRS AXIS <= -45, QR IN I, RS IN II] ABNORMAL ECG COMPARED TO ECG 04/25/2022 05:44:37 NO SIGNIFICANT CHANGES Electronically Signed On 05-12-2022 14:43:13 RESIDENT BUYER by Sergey Prado M.D.
[2022-05-11 16:49] LABS: Basophils Percent Auto 0.4 % (0.2-1.2); Eosinophils Absolute Auto 0.2 K/mm3 (0-0.3); Eosinophils Percent Auto 1.9 % (0-4.4); Hemoglobin 14.7 g/dL (14.0-18.0); Immature Granulocyte Absolute 0.06 K/mm3 (0.00-0.031); Immature Granulocyte Percent A 0.7 % (0-0.5); Lymphocytes Absolute Auto 2.91 K/mm3 (0.9-3.2); Lymphocytes Percent Auto 35.1 % (18.3-44.2); Mean Corpuscular Hemoglobin 28.4 pg (26-34); Mean Platelet Volume 9.9 fl (7.4-10.4); Monocytes Absolute Auto 0.8 K/mm3 (0.1-0.6); Monocytes Percent Auto 9.2 % (2.6-8.5); Neutrophils Absolute Auto 4.4 K/mm3 (1.3-6.7); Neutrophils Percent Auto 52.7 % (45.5-73.1); Platelet Count Result 199 k/mm3 (150-375); Red Blood Count 5.17 M/mm3 (4.6-6.20); Red Cell Distribution Width 13.3 % (11.5-14.5); White Blood Count 8.3 K/mm3 (4.5-10.0)
[2022-05-11 16:59] LABS: Partial Thromboplastin Time 24.3 SECONDS (22.3-36.8)
[2022-05-11 17:01] LABS: Alanine Aminotransferase 23 U/L (6-50); Albumin Level 4.3 g/dL (3.5-5.1); Alkaline Phosphatase 93 U/L (38-126); Anion Gap 9 mmol/L (8-16); Aspartate Amino Transferase 32 U/L (17-59); Bilirubin,Total 0.3 mg/dL (0.2-1.3); Blood Urea Nitrogen 19 mg/dL (9-20); Carbon Dioxide 24 mmol/L (22-30); Chloride 103 mmol/L (98-107); Estimated CRCL calculation 107 ml/min; Estimated Glomerular Filt Rate > 60; Glucose 134 mg/dL (65-110); Lipase 197 U/L (23-300); Potassium 3.6 mmol/L (3.4-5.0); Sodium 136 mmol/L (137-145)
[2022-05-11 17:25] LABS: Troponin I < 0.012 ng/mL (0.000-0.034)
--- NOTE | 2022-05-11 19:36 | ED.SOB ---
HPI - SOB/Dyspnea General Chief Complaint: Shortness of Breath/Dyspnea Stated Complaint: MULTI C/O Time Seen by Provider: 05/11/22 19:04 Source: patient, EMS, RN notes reviewed and old records reviewed Mode of arrival: EMS Limitations: no limitations History of Present Illness HPI Narrative: This is 57 year old male who presents for evaluation of shortness of breath. Patient states he has been dealing with intermittent episodes of shortness of breath that is worse with exertion for several month. He states today he was walking in [facility] when he developed shortness of breath. He states he had to stop and he felt like he was going to fall. He reports that he feels better. He denies having chest pain but he reports he had sharp back pain at the time. He is being evaluated by his mc kay stitcher for his symptoms, and he has not been aware of cause yet. He denies heart disease or lung disease. He has a loop recorder in place due to issues with syncopal episodes. He reports recently dealing with a chest cold. He also reports intermittent bilateral leg swelling. He denies fever, chills or cough. Related Data Home Medications Medication Instructions Recorded Confirmed Topamax 400 mg PO DAILY 04/04/19 05/14/21 divalproex 500 mg tablet,delayed 500 mg PO Q12H 04/04/19 05/14/21 release (Depakote) albuterol sulfate 90 mcg/actuation 2 inh inhalation Q4H PRN Shortness 11/05/19 05/14/21 aerosol inhaler Of Breath aspirin 81 mg chewable tablet 81 mg PO DAILY 11/05/19 05/14/21 atorvastatin 10 mg tablet 10 mg PO HS 11/05/19 05/14/21 enalapril maleate 5 mg tablet 5 mg PO DAILY 11/05/19 05/14/21 fenofibrate 160 mg tablet 160 mg PO DAILY 11/05/19 05/14/21 fluticasone 250 mcg-salmeterol 50 1 inh inhalation BID 11/05/19 05/14/21 mcg/dose blistr powdr for inhalation (Advair Diskus) famotidine 20 mg tablet (Pepcid) 20 mg PO DAILY 05/14/21 05/14/21 Allergies Allergy/AdvReac Type Severity Reaction Status Date / Time phenobarbital AdvReac Unknown Other Verified 03/06/22 18:54 Review of Systems Review of Systems: All systems reviewed & are unremarkable except as noted in HPI and below Constitutional: Constitutional: Denies fatigue and Denies fever(s) Eyes: Eyes: Denies blurry vision ENT: Denies nasal congestion and Denies sinus pressure Cardiovascular: Cardiovascular: Denies chest pain, Denies rapid heart rate, Reports leg edema and Reports dyspnea Respiratory: Respiratory: Reports chest congestion, Denies hemoptysis and Reports dyspnea Gastrointestinal: Gastrointestinal: Denies abdominal pain and Denies melena Musculoskeletal: Musculoskeletal: Denies numbness Neurologic: Denies Abnormal speech present, Denies focal weakness and Denies numbness Endocrine: Endocrine: Denies fatigue PMFSH Past Medical History Medical History Anxiety Arthritis Asthma COPD (chronic obstructive pulmonary disease) CVA (cerebral vascular accident) Depression Diabetes Epilepsy GERD (gastroesophageal reflux disease) GI bleed Head trauma Hyperlipidemia Hypertension IBS (irritable bowel syndrome) Sleep apnea Surgical History Surgical History History of open reduction and internal fixation (ORIF) procedure Hx of craniotomy temporal lobe resection Family History Family History Mother Hypertension Congestive heart failure Social History Social History Social History: The patient is single and never had any children. He lives alone. He is on disability. Surrogate decision maker: Sophia Pozo (mother) Smoking status: Never smoker Alcohol intake: never Substance use: never Gender identity (if verbalized by the patient): Male Sexual Orientation (if Verbalized by the Patient): Straight or Heterosexual Spiritu
[2022-05-11 19:40] LABS: D Dimer 0.28 ug/mL (<0.48)
[2022-05-11 19:49] LABS: NT Pro B Type Natriuretic Pept 23 pg/mL (5-100)
[2022-05-11 20:06] LABS: Troponin I < 0.012 ng/mL (0.000-0.034)
--- NOTE | 2022-05-11 20:15 | PC.NURSE ---
Pt ambulated with 1x assist per MD Dr. Carrillo. Every few steps patient would stumble and need a second assist. RN and made aware.
[2022-05-11 20:20] LABS: Influenza A QL RT-PCR Negative (Negative); Influenza B QL RT-PCR Negative (Negative); SARS-CoV-2 RNA PCR Negative
[2022-05-11] MEDS: ACETAMINOPHEN 500 MG TABLET 1000 MG PO (20:29)
[2022-05-11 20:31] VITALS: BP 116/73; PULSE 85; RESP 22; O2SAT 100
== END 2022-05-11 20:38 | disposition home or self-care (01) ==
PROVIDERS: Emergency Medicine; Emergency Provider General Practice; PCP Internal Medicine
DX: R06.00 Dyspnea, unspecified (principal); Z20.822 Contact with and (suspected) exposure to COVID-19; J44.9 Chronic obstructive pulmonary disease, unspecified; E11.9 Type 2 diabetes mellitus without complications; G40.909 Epilepsy, unspecified, not intractable, without status epilepticus; E78.5 Hyperlipidemia, unspecified; I10 Essential (primary) hypertension; K21.9 Gastro-esophageal reflux disease without esophagitis; M19.90 Unspecified osteoarthritis, unspecified site; G47.30 Sleep apnea, unspecified; F41.9 Anxiety disorder, unspecified; F32.A Depression, unspecified; Z86.73 Personal history of transient ischemic attack (TIA), and cerebral infarction without residual deficits; Z79.82 Long term (current) use of aspirin; I44.0 Atrioventricular block, first degree; I44.4 Left anterior fascicular block
CPT/HCPCS: 36415; 71046; 80053; 83690; 83880; 84484; 85025; 85380; 85610; 85730; 87636; 93005; 99284; A9270

== ENCOUNTER 2022-07-10 15:48 | Emergency (ER) | payer MEDICARE, MEDICAID, SELFPAY ==
[2022-07-10] VITALS (7 sets, daily range): BP systolic 100–117; BP diastolic 57–67; PULSE 81–95; RESP 16–18; TEMP 36.6; O2SAT 97–100
--- NOTE | 2022-07-10 15:59 | ECG_ITS ---
Measurements Intervals [place] Rate: 93 P: 56 MD: 222 QRS: -72 QRSD: 125 T: 20 QT: 397 QTc: 496 Interpretive Statements SINUS RHYTHM WITH FIRST DEGREE AV BLOCK LEFT ANTERIOR FASCICULAR BLOCK ABNORMAL ECG COMPARED TO ECG 05/11/2022 16:40:47 NO SIGNIFICANT CHANGES Electronically Signed On 07-10-2022 16:27:05 [employer] by David Alcaraz M.D.
[2022-07-10 16:22] LABS: Basophils Percent Auto 0.3 % (0.2-1.2); Eosinophils Absolute Auto 0.1 K/mm3 (0-0.3); Hematocrit 43.2 % (42.0-52.0); Hemoglobin 13.7 g/dL (14.0-18.0); Immature Granulocyte Absolute 0.05 K/mm3 (0.00-0.031); Immature Granulocyte Percent A 0.8 % (0-0.5); Lymphocytes Absolute Auto 3.03 K/mm3 (0.9-3.2); Lymphocytes Percent Auto 45.7 % (18.3-44.2); Mean Corpuscular HGB Conc 31.7 g/dl (32-36); Mean Corpuscular Volume 94.7 fl (80-100); Mean Platelet Volume 9.9 fl (7.4-10.4); Monocytes Absolute Auto 0.6 K/mm3 (0.1-0.6); Monocytes Percent Auto 8.3 % (2.6-8.5); Neutrophils Absolute Auto 2.9 K/mm3 (1.3-6.7); Neutrophils Percent Auto 42.9 % (45.5-73.1); Platelet Count Result 194 k/mm3 (150-375); Red Blood Count 4.56 M/mm3 (4.6-6.20); Red Cell Distribution Width 17.3 % (11.5-14.5); White Blood Count 6.6 K/mm3 (4.5-10.0)
--- NOTE | 2022-07-10 16:34 | ED.SYNCOPE ---
HPI - Syncope General Chief Complaint: Syncope Stated Complaint: syncope Time Seen by Provider: 07/10/22 16:15 History of Present Illness HPI narrative: Patient is a 57-year-old male with a history of hyperlipidemia, seizure disorder, GERD presenting with syncope. Patient states that he was at [employer] in the checkout line when he became nauseated and lightheaded. States that he tried to go sit down but the lightheadedness worsened so someone had to help him to the ground. Did not strike his head or sustain any injuries. States that currently he feels very well and would like to go home. He denies chest pain or shortness of breath. No numbness or weakness. No palpitations, abdominal pain, vomiting, diarrhea, leg swelling. Related Data Home Medications Medication Instructions Recorded Confirmed Topamax 400 mg PO DAILY 04/04/19 05/14/21 divalproex 500 mg tablet,delayed 500 mg PO Q12H 04/04/19 05/14/21 release (Depakote) albuterol sulfate 90 mcg/actuation 2 inh inhalation Q4H PRN Shortness 11/05/19 05/14/21 aerosol inhaler Of Breath aspirin 81 mg chewable tablet 81 mg PO DAILY 11/05/19 05/14/21 atorvastatin 10 mg tablet 10 mg PO HS 11/05/19 05/14/21 enalapril maleate 5 mg tablet 5 mg PO DAILY 11/05/19 05/14/21 fenofibrate 160 mg tablet 160 mg PO DAILY 11/05/19 05/14/21 fluticasone 250 mcg-salmeterol 50 1 inh inhalation BID 11/05/19 05/14/21 mcg/dose blistr powdr for inhalation (Advair Diskus) famotidine 20 mg tablet (Pepcid) 20 mg PO DAILY 05/14/21 05/14/21 Allergies Allergy/AdvReac Type Severity Reaction Status Date / Time phenobarbital AdvReac Unknown Other Verified 07/10/22 16:17 Review of Systems Review of Systems: All systems reviewed & are unremarkable except as noted in HPI and below PMFSH Past Medical History Medical History Anxiety Arthritis Asthma COPD (chronic obstructive pulmonary disease) CVA (cerebral vascular accident) Depression Diabetes Epilepsy GERD (gastroesophageal reflux disease) GI bleed Head trauma Hyperlipidemia Hypertension IBS (irritable bowel syndrome) Sleep apnea Surgical History Surgical History History of open reduction and internal fixation (ORIF) procedure Hx of craniotomy temporal lobe resection Family History Family History Mother Hypertension Congestive heart failure Social History Social History Social History: The patient is single and never had any children. He lives alone. He is on disability. Surrogate decision maker: Sophia Pozo (mother) Smoking status: Never smoker Alcohol intake: never Substance use: never Lack of Transportation: YES Lack of Food: Sometimes True Current Housing: I Have Housing Concerned About Future Housing: No Difficulty Paying Gas/Electric Bills: No Difficulty Paying for Meds: YES Currently Unemployed: No Education: High School Diploma/GED Difficulty w/ Childcare or Family Care: No Gender identity (if verbalized by the patient): Male Sexual Orientation (if Verbalized by the Patient): Straight or Heterosexual Spiritual care concerns: No Exam Narrative: GENERAL: Well-appearing, well-nourished, and in no acute distress. HEAD: Normocephalic, atraumatic. EYES: PERRLA and EOMI. ENT: Nares clear, no rhinorrhea or epistaxis. Mucous membranes moist. NECK: Supple. CHEST: Clear to auscultation. No respiratory distress. HEART: Regular rate and rhythm. No murmur heard. Normal peripheral pulses. ABDOMEN: Soft, nontender, nondistended EXTREMITIES: Normal range of motion. No edema. SKIN: Warm, dry, no rash. NEURO: No focal deficits. Alert and oriented x3. PSYCH: Normal mood and affect. Course Vital Signs Vital signs: Vital Signs Temperature 97.9 F 06/15
[2022-07-10] MEDS: SODIUM CHLORIDE 0.9% IV 1,000 ML 999 ML IV CONT (16:43)
[2022-07-10 16:46] LABS: Alanine Aminotransferase 27 U/L (6-50); Albumin Level 4.3 g/dL (3.5-5.1); Alkaline Phosphatase 93 U/L (38-126); Anion Gap 8 mmol/L (8-16); Aspartate Amino Transferase 50 U/L (17-59); Bilirubin,Total 0.5 mg/dL (0.2-1.3); Blood Urea Nitrogen 16 mg/dL (9-20); Calcium 8.9 mg/dL (8.4-10.2); Carbon Dioxide 24 mmol/L (22-30); Chloride 105 mmol/L (98-107); Estimated CRCL calculation 96 ml/min; Estimated Glomerular Filt Rate > 60; Glucose 175 mg/dL (65-110); Potassium 3.4 mmol/L (3.4-5.0); Sodium 137 mmol/L (137-145)
[2022-07-10 18:40] LABS: Troponin I < 0.012 ng/mL (0.000-0.034)
== END 2022-07-10 19:08 | disposition home or self-care (01) ==
PROVIDERS: Preventive Medicine Aerospace Medicine; Emergency Provider Emergency Medicine; PCP Internal Medicine
DX: R55 Syncope and collapse (principal); F41.9 Anxiety disorder, unspecified; M19.90 Unspecified osteoarthritis, unspecified site; J45.909 Unspecified asthma, uncomplicated; F32.9 Major depressive disorder, single episode, unspecified; G40.909 Epilepsy, unspecified, not intractable, without status epilepticus; K21.9 Gastro-esophageal reflux disease without esophagitis; I10 Essential (primary) hypertension; G47.30 Sleep apnea, unspecified
CPT/HCPCS: 36415; 80053; 84484; 85025; 93005; 96360; 99284; J7030

== ENCOUNTER 2022-07-16 18:31 | Emergency (ER) | payer MEDICARE, MEDICAID, SELFPAY ==
[2022-07-16 19:14] VITALS: BP 126/59; PULSE 83; RESP 18; TEMP 36.7; O2SAT 98
--- NOTE | 2022-07-16 23:51 | PC.NURSE ---
Patient comes to desk and states I am just going to have my brother come pick me up, I don't want to wait anymore. I see people go back before me. This nurse informs him that patients are taken back based on acuity and that he will be taken back as soon as available. Patient states I am just going to leave. I already called my brother, he is on his way to pick me up. Patient informed of risks of leaving before being seen by a provider. Patient states I just don't want to wait anymore. Patient seen leaving the ED with a steady gait. Patient a/ox4.
== END 2022-07-17 00:06 | disposition left against medical advice (07) ==
PROVIDERS: PCP Internal Medicine
DX: R55 Syncope and collapse (principal)
CPT/HCPCS: 99199

== ENCOUNTER 2022-09-28 20:54 | Emergency (ER) | payer MEDICARE, MEDICAID, SELFPAY ==
--- NOTE | ~2022-09-28 | CT_ITS ---
Non-contrast Head CT History: Headache COMPARISON: 02/19/2022 Technique: Axial non-contrast imaging of the brain was performed. Dose reduction technique was used on this scan by utilizing automated exposure control and iterative reconstruction technique. The dose -length product (DLP) was 681.00 mGy-cm. Findings: There is no evidence of intracranial hemorrhage, mass lesion, or acute infarct. Stable chr onic encephalomalacia of the right temporal lobe with overlying right temporal craniotomy. The ventr icles and subarachnoid spaces are normal in size. The calvarium otherwise appears normal. The visua lized paranasal sinuses and mastoid air cells are clear. Impression: No acute abnormality seen. Stable chronic encephalomalacia of the right temporal lobe with overlying right temporal craniotomy. Reviewed, dictated and finalized at [facility]. Impression: No acute abnormality seen. Stable chronic encephalomalacia of the right temporal lobe with overlying right temporal craniotomy.
[2022-09-28 20:57] VITALS: BP 108/61; PULSE 82; RESP 18; TEMP 36.4; O2SAT 98
[2022-09-29] MEDS: diphenhydrAMINE HCl INJ 50 MG/ML VIAL IV PUSH (00:37)
[2022-09-29] MEDS: PROCHLORPERAZINE EDISYLATE 10 MG/2 ML VIAL IV PUSH (00:37)
[2022-09-29] MEDS: SODIUM CHLORIDE 0.9% IV 1,000 ML 999 ML IV CONT (00:38)
--- NOTE | 2022-09-29 02:03 | ED.GENADULT ---
HPI - General Adult General Chief complaint: Headache Stated complaint: headache Time Seen by Provider: 09/29/22 00:06 History of Present Illness HPI narrative: Patient 57-year-old gentleman presents the emergency department with chief complaint of headache. The patient reports he has prior history of headaches and has had prior history of a TBI and has had seizures after his TBI. The patient reports he is on medications prescribed by his neurologist for this. The patient reports this evening he started having a headache reports that it is in the occipital region of his head reports that it is one of the worst ones he has had it is different than his normal but did not take anything for the headache. The patient denies vomiting denies visual changes denies focal neurological deficit. Related Data Home Medications Medication Instructions Recorded Confirmed Topamax 400 mg PO DAILY 04/04/19 05/14/21 divalproex 500 mg tablet,delayed 500 mg PO Q12H 04/04/19 05/14/21 release (Depakote) albuterol sulfate 90 mcg/actuation 2 inh inhalation Q4H PRN Shortness 11/05/19 05/14/21 aerosol inhaler Of Breath aspirin 81 mg chewable tablet 81 mg PO DAILY 11/05/19 05/14/21 atorvastatin 10 mg tablet 10 mg PO HS 11/05/19 05/14/21 enalapril maleate 5 mg tablet 5 mg PO DAILY 11/05/19 05/14/21 fenofibrate 160 mg tablet 160 mg PO DAILY 11/05/19 05/14/21 fluticasone 250 mcg-salmeterol 50 1 inh inhalation BID 11/05/19 05/14/21 mcg/dose blistr powdr for inhalation (Advair Diskus) famotidine 20 mg tablet (Pepcid) 20 mg PO DAILY 05/14/21 05/14/21 Allergies Allergy/AdvReac Type Severity Reaction Status Date / Time phenobarbital AdvReac Unknown Other Verified 07/16/22 19:18 Review of Systems Review of Systems: A 10 system review of systems was completed on the patient and is negative except for what is stated in the HPI. Nursing and ancillary documentation was reviewed. FORMERLY [facility] Past Medical History Medical History Anxiety Arthritis Asthma COPD (chronic obstructive pulmonary disease) CVA (cerebral vascular accident) Depression Diabetes Epilepsy GERD (gastroesophageal reflux disease) GI bleed Head trauma Hyperlipidemia Hypertension IBS (irritable bowel syndrome) Sleep apnea Surgical History Surgical History History of open reduction and internal fixation (ORIF) procedure Hx of craniotomy temporal lobe resection Family History Family History Mother Hypertension Congestive heart failure Social History Social History Social History: The patient is single and never had any children. He lives alone. He is on disability. Surrogate decision maker: oSphia Pozo (mother) Smoking status: Never smoker Alcohol intake: never Substance use: never Lack of Transportation: YES Lack of Food: Sometimes True Current Housing: I Have Housing Concerned About Future Housing: No Difficulty Paying Gas/Electric Bills: No Difficulty Paying for Meds: YES Currently Unemployed: No Education: High School Diploma/GED Difficulty w/ Childcare or Family Care: No Gender identity (if verbalized by the patient): Male Sexual Orientation (if Verbalized by the Patient): Straight or Heterosexual Spiritual care concerns: No Exam Narrative: GENERAL: Well-appearing, well-nourished, and in no acute distress. HEAD: Normocephalic, atraumatic. EYES: PERRLA and EOMI. ENT: Nares clear, no rhinorrhea or epistaxis. Mucous membranes moist. NECK: Supple. CHEST: Clear to auscultation. No respiratory distress. HEART: Regular rate and rhythm. No murmur heard. Normal peripheral pulses. ABDOMEN: Soft, nontender, nondistended, normal active bowel sounds. EXTREMITIES: Normal rang
[2022-09-29 02:33] VITALS: BP 110/62; PULSE 66; RESP 16; O2SAT 100
== END 2022-09-29 02:34 | disposition home or self-care (01) ==
PROVIDERS: Emergency Provider Emergency Medicine; PCP Internal Medicine
DX: R51.9 Headache, unspecified (principal); J44.9 Chronic obstructive pulmonary disease, unspecified; E11.9 Type 2 diabetes mellitus without complications; G40.909 Epilepsy, unspecified, not intractable, without status epilepticus; E78.5 Hyperlipidemia, unspecified; I10 Essential (primary) hypertension; K21.9 Gastro-esophageal reflux disease without esophagitis; K58.9 Irritable bowel syndrome, unspecified; G47.30 Sleep apnea, unspecified; M19.90 Unspecified osteoarthritis, unspecified site; F41.9 Anxiety disorder, unspecified; F32.A Depression, unspecified; Z86.73 Personal history of transient ischemic attack (TIA), and cerebral infarction without residual deficits; Z79.82 Long term (current) use of aspirin
CPT/HCPCS: 70450; 96361; 96374; 96375; 99284; J0780; J1200; J7030

== ENCOUNTER 2022-12-01 16:38 | Emergency (ER) | payer MEDICARE, MEDICAID, SELFPAY ==
[2022-12-01 16:42] VITALS: BP 110/63; PULSE 83; RESP 17; TEMP 36.6; O2SAT 98
--- NOTE | 2022-12-01 17:29 | ED.GENADULT ---
HPI - General Adult General Chief complaint: Weakness Stated complaint: Seizure Time Seen by Provider: 12/01/22 17:07 History of Present Illness HPI narrative: This is a 57-year-old male with past history of stroke and TBI, who presents to the emergency department complaining of a tingling sensation on the right side of his face. The patient states today approximately 1 and half hours prior to arrival, he was sitting, in his normal state of health when he felt a sudden onset right-sided facial tingling centered around the right ear. This lasted approximately 30 seconds, was rated 7/10 and resolved completely on its own. He states he has felt a similar sensation before. This is not worse than usual. He denies weakness, numbness, change/loss of vision/hearing or associated fevers. He has no other complaints today. Related Data Home Medications Medication Instructions Recorded Confirmed Topamax 400 mg PO DAILY 04/04/19 05/14/21 divalproex 500 mg tablet,delayed 500 mg PO Q12H 04/04/19 05/14/21 release (Depakote) albuterol sulfate 90 mcg/actuation 2 inh inhalation Q4H PRN Shortness 11/05/19 05/14/21 aerosol inhaler Of Breath aspirin 81 mg chewable tablet 81 mg PO DAILY 11/05/19 05/14/21 atorvastatin 10 mg tablet 10 mg PO HS 11/05/19 05/14/21 enalapril maleate 5 mg tablet 5 mg PO DAILY 11/05/19 05/14/21 fenofibrate 160 mg tablet 160 mg PO DAILY 11/05/19 05/14/21 fluticasone 250 mcg-salmeterol 50 1 inh inhalation BID 11/05/19 05/14/21 mcg/dose blistr powdr for inhalation (Advair Diskus) famotidine 20 mg tablet (Pepcid) 20 mg PO DAILY 05/14/21 05/14/21 Allergies Allergy/AdvReac Type Severity Reaction Status Date / Time phenobarbital AdvReac Unknown Other Verified 12/01/22 17:23 Review of Systems Review of Systems: CONSTITUTIONAL: Denies fever, chills, or sweats. EYES: Denies visual changes, redness, or discharge. ENT: Denies rhinorrhea, congestion, sore throat, or otalgia. CARDIOVASCULAR: Denies chest pain, palpitations, or edema. RESPIRATORY: Denies cough or dyspnea. GASTROINTESTINAL: Denies abdominal pain, nausea, vomiting, or diarrhea. GENITOURINARY: Denies dysuria or hematuria. SKIN: Denies rash or itching. MUSCULOSKELETAL: Denies back pain, joint pain, or myalgia. NEUROLOGIC: Paresthesias of the right side of face?resolved. Denies headache, numbness, dizziness, or weakness. PSYCHIATRIC: Denies anxiety or depression. FOR[facility]LY [facility] Past Medical History Medical History Anxiety Arthritis Asthma COPD (chronic obstructive pulmonary disease) CVA (cerebral vascular accident) Depression Diabetes Epilepsy GERD (gastroesophageal reflux disease) GI bleed Head trauma Hyperlipidemia Hypertension IBS (irritable bowel syndrome) Sleep apnea Surgical History Surgical History History of open reduction and internal fixation (ORIF) procedure Hx of craniotomy temporal lobe resection Family History Family History Mother Hypertension Congestive heart failure Social History Social History Social History: The patient is single and never had any children. He lives alone. He is on disability. Surrogate decision maker: Sophia Pozo (mother) Smoking status: Never smoker Alcohol intake: never Substance use: never Lack of Transportation: YES Lack of Food: Sometimes True Current Housing: I Have Housing Concerned About Future Housing: No Difficulty Paying Gas/Electric Bills: No Difficulty Paying for Meds: YES Currently Unemployed: No Education: High School Diploma/GED Difficulty w/ Childcare or Family Care: No Gender identity (if verbalized by the patient): Male Sexual Orientation (if Verbalized by the Patient): Straight or Heterosexual Spiritual care concerns:
[2022-12-01 17:50] LABS: Alanine Aminotransferase 31 U/L (6-50); Albumin Level 4.4 g/dL (3.5-5.1); Alkaline Phosphatase 85 U/L (38-126); Anion Gap 14 mmol/L (8-16); Aspartate Amino Transferase 57 U/L (17-59); Bilirubin,Total 0.4 mg/dL (0.2-1.3); Blood Urea Nitrogen 21 mg/dL (9-20); Calcium 9.2 mg/dL (8.4-10.2); Carbon Dioxide 21 mmol/L (22-30); Chloride 105 mmol/L (98-107); Estimated CRCL calculation 86 ml/min; Estimated Glomerular Filt Rate > 60; Glucose 137 mg/dL (65-110); Magnesium 2.2 mg/dL (1.6-2.3); Potassium 3.9 mmol/L (3.4-5.0); Sodium 140 mmol/L (137-145)
[2022-12-01 18:15] VITALS: BP 109/65; PULSE 85; RESP 18; TEMP 36.6; O2SAT 98
== END 2022-12-01 18:16 | disposition home or self-care (01) ==
PROVIDERS: Emergency Provider Preventive Medicine Aerospace Medicine; PCP Internal Medicine
DX: R20.2 Paresthesia of skin (principal); J44.9 Chronic obstructive pulmonary disease, unspecified; I10 Essential (primary) hypertension; E11.9 Type 2 diabetes mellitus without complications; E78.5 Hyperlipidemia, unspecified; G40.909 Epilepsy, unspecified, not intractable, without status epilepticus; G47.30 Sleep apnea, unspecified; K21.9 Gastro-esophageal reflux disease without esophagitis; K58.9 Irritable bowel syndrome, unspecified; M19.90 Unspecified osteoarthritis, unspecified site; F41.9 Anxiety disorder, unspecified; F32.A Depression, unspecified; Z87.820 Personal history of traumatic brain injury; Z86.73 Personal history of transient ischemic attack (TIA), and cerebral infarction without residual deficits; Z79.82 Long term (current) use of aspirin
CPT/HCPCS: 36415; 80053; 83735; 99283

== ENCOUNTER 2023-01-01 13:52 | Emergency (ER) | payer MEDICARE, MEDICAID, SELFPAY ==
--- NOTE | 2023-01-01 13:56 | ECG_ITS ---
Measurements Intervals [place] Rate: 73 P: 56 [place]: 211 QRS: -68 QRSD: 123 T: 32 QT: 410 QTc: 452 Interpretive Statements SINUS RHYTHM WITH FIRST DEGREE AV BLOCK RIGHT BUNDLE BRANCH BLOCK [120+ ms QRS DURATION, UPRIGHT V1, 40+ ms S IN I/aVL/V4/V5/V6] LEFT ANTERIOR FASCICULAR BLOCK [QRS AXIS <= -45, QR IN I, RS IN II] COMPARED TO ECG 07/10/2022 16:01:10 RIGHT BUNDLE-BRANCH BLOCK NOW PRESENT Electronically Signed On 01-02-2023 11:12:02 CDT by Yandel Covarrubias M.D.
[2023-01-01 14:54] VITALS: BP 102/59; PULSE 76; RESP 18; TEMP 36.6; O2SAT 99
[2023-01-01 15:23] LABS: Basophils Percent Auto 0.5 % (0.2-1.2); Eosinophils Absolute Auto 0.2 K/mm3 (0-0.3); Eosinophils Percent Auto 3.1 % (0-4.4); Hematocrit 42.8 % (42.0-52.0); Hemoglobin 13.4 g/dL (14.0-18.0); Immature Granulocyte Absolute 0.03 K/mm3 (0.00-0.031); Immature Granulocyte Percent A 0.5 % (0-0.5); Lymphocytes Absolute Auto 2.57 K/mm3 (0.9-3.2); Lymphocytes Percent Auto 44.6 % (18.3-44.2); Mean Corpuscular HGB Conc 31.3 g/dl (32-36); Mean Corpuscular Hemoglobin 30.2 pg (26-34); Mean Corpuscular Volume 96.4 fl (80-100); Mean Platelet Volume 10.1 fl (7.4-10.4); Monocytes Absolute Auto 0.5 K/mm3 (0.1-0.6); Monocytes Percent Auto 8.3 % (2.6-8.5); Neutrophils Absolute Auto 2.5 K/mm3 (1.3-6.7); Platelet Count Result 169 k/mm3 (150-375); Red Blood Count 4.44 M/mm3 (4.6-6.20); White Blood Count 5.8 K/mm3 (4.5-10.0)
[2023-01-01 15:43] LABS: Alanine Aminotransferase 28 U/L (6-50); Albumin Level 4.2 g/dL (3.5-5.1); Alkaline Phosphatase 95 U/L (38-126); Anion Gap 8 mmol/L (8-16); Aspartate Amino Transferase 43 U/L (17-59); Bilirubin,Total 0.3 mg/dL (0.2-1.3); Blood Urea Nitrogen 18 mg/dL (9-20); Carbon Dioxide 22 mmol/L (22-30); Chloride 107 mmol/L (98-107); Estimated CRCL calculation 96 ml/min; Estimated Glomerular Filt Rate > 60; Glucose 97 mg/dL (65-110); Potassium 3.9 mmol/L (3.4-5.0); Sodium 137 mmol/L (137-145)
[2023-01-01 18:03] VITALS: BP 108/56; PULSE 73; RESP 18; O2SAT 100
[2023-01-01 18:08] VITALS: O2SAT 10
[2023-01-01 18:10] VITALS: BP 109/66; BP 110/78; BP 130/78; PULSE 72; PULSE 73; PULSE 76
--- NOTE | 2023-01-01 18:49 | ED.GENADULT ---
HPI - General Adult General Chief complaint: Syncope Stated complaint: syncopal episode Time Seen by Provider: 01/01/23 18:40 Source: patient Mode of arrival: ambulatory Limitations: no limitations History of Present Illness HPI narrative: This is a 57-year-old male with PMH of CVA, diabetes, epilepsy who presents to the ED via EMS with chief complaint of a syncopal episode that occurred this afternoon. Patient states that he had been out all day running errands and was getting very overheated due to it being so hot outside. He states that when he walked into [facility] this afternoon he was starting to feel extremely hot and got lightheaded and syncopized. He states that he was with his nephew at the time. Nephew did not record any seizure-like activity. Patient has been taking his regular antiepileptics. He states that he did not have any chest pain or shortness of breath preceding the incident. Patient states that he has not been drinking enough water either. Right now he is completely asymptomatic. States he would like to go home. Denies any recent fevers, chills, chest pains, abdominal pains, urinary symptoms. Denies headache, numbness, weakness, speech problems, any further lightheadedness or LOC. Related Data Home Medications Medication Instructions Recorded Confirmed Topamax 400 mg PO DAILY 04/04/19 12/27/22 divalproex 500 mg tablet,delayed 500 mg PO Q12H 04/04/19 12/27/22 release (Depakote) albuterol sulfate 90 mcg/actuation 2 inh inhalation Q4H PRN Shortness 11/05/19 12/27/22 aerosol inhaler Of Breath aspirin 81 mg chewable tablet 81 mg PO DAILY 11/05/19 12/27/22 atorvastatin 10 mg tablet 10 mg PO HS 11/05/19 12/27/22 enalapril maleate 5 mg tablet 5 mg PO DAILY 11/05/19 12/27/22 fenofibrate 160 mg tablet 160 mg PO DAILY 11/05/19 12/27/22 fluticasone 250 mcg-salmeterol 50 1 inh inhalation BID 11/05/19 12/27/22 mcg/dose blistr powdr for inhalation (Advair Diskus) famotidine 20 mg tablet (Pepcid) 20 mg PO DAILY 05/14/21 12/27/22 Allergies Allergy/AdvReac Type Severity Reaction Status Date / Time phenobarbital AdvReac Unknown Other Verified 12/27/22 13:23 Review of Systems Review of Systems: All systems as dictated in [facility] Past Medical History Medical History Anxiety Arthritis Asthma COPD (chronic obstructive pulmonary disease) CVA (cerebral vascular accident) Depression Diabetes Epilepsy GERD (gastroesophageal reflux disease) GI bleed Head trauma Hyperlipidemia Hypertension IBS (irritable bowel syndrome) Sleep apnea Surgical History Surgical History History of open reduction and internal fixation (ORIF) procedure Hx of craniotomy temporal lobe resection Family History Family History Mother Hypertension Congestive heart failure Social History Social History Social History: The patient is single and never had any children. He lives alone. He is on disability. Surrogate decision maker: Sophia Pozo (mother) Smoking status: Never smoker Alcohol intake: never Substance use: never Substance use type: does not use Lack of Transportation: YES Lack of Food: Never True Current Housing: I Have Housing Concerned About Future Housing: YES Difficulty Paying Gas/Electric Bills: Decline to Answer Difficulty Paying for Meds: No Currently Unemployed: No Education: Grade School Difficulty w/ Childcare or Family Care: No Living arrangements: with family Gender identity (if verbalized by the patient): Male Sexual Orientation (if Verbalized by the Patient): Straight or Heterosexual Spiritual care concerns: No Exam Narrative: GENERAL: Well-appearing, well-nourished, and in no acute distress. HEAD: Normocephalic, atraumatic. EYES:
[2023-01-01 19:22] VITALS: BP 102/68; PULSE 76; RESP 16; O2SAT 99
== END 2023-01-01 19:24 | disposition home or self-care (01) ==
PROVIDERS: Emergency Medicine; Emergency Provider Physician Assistant; PCP Internal Medicine
DX: R55 Syncope and collapse (principal); E11.9 Type 2 diabetes mellitus without complications; G40.909 Epilepsy, unspecified, not intractable, without status epilepticus; J44.9 Chronic obstructive pulmonary disease, unspecified; E78.5 Hyperlipidemia, unspecified; G47.30 Sleep apnea, unspecified; K58.9 Irritable bowel syndrome, unspecified; K21.9 Gastro-esophageal reflux disease without esophagitis; M19.90 Unspecified osteoarthritis, unspecified site; F41.9 Anxiety disorder, unspecified; Z86.73 Personal history of transient ischemic attack (TIA), and cerebral infarction without residual deficits; Z79.82 Long term (current) use of aspirin; I44.0 Atrioventricular block, first degree; I45.10 Unspecified right bundle-branch block
CPT/HCPCS: 36415; 80053; 85025; 93005; 99284

== ENCOUNTER 2023-04-13 18:15 | Emergency (ER) | payer MEDICARE, MEDICAID, SELFPAY ==
--- NOTE | ~2023-04-13 | XR_ITS ---
EXAMINATION: XR chest 1V portable DATE: 04/13/2023 20:53 INDICATION: Syncope TECHNIQUE: frontal view of the chest was obtained. COMPARISON: Chest radiograph dated 05/11/2022 FINDINGS: Unchanged mild linear discoid atelectasis/scarring in the lingula at the anterolateral left lower raphael g zone. No new airspace opacities, pulmonary edema, pleural effusion or pneumothorax. The cardiomedia stinal silhouette is normal. Left pectoral implantable playground monitor. IMPRESSION: 1. Chronic mild lingular discoid atelectasis/scarring. Reviewed, dictated and finalized at location A. [employer]LE
[2023-04-13 18:16] VITALS: BP 124/78; PULSE 89; RESP 18; TEMP 36.1; O2SAT 99
--- NOTE | 2023-04-13 18:26 | ECG_ITS ---
Measurements Intervals [place] Rate: 86 P: 53 [place]: 224 QRS: -72 QRSD: 117 T: 22 QT: 375 QTc: 450 Interpretive Statements SINUS RHYTHM WITH FIRST DEGREE AV BLOCK LEFT AXIS DEVIATION PATTERN CONSISTENT WITH PULMONARY DISEASE INCOMPLETE RIGHT BUNDLE-BRANCH BLOCK ABNORMAL ECG COMPARED TO ECG 01/01/2023 15:09:52 LEFT-AXIS DEVIATION NOW PRESENT Electronically Signed On 04-14-2023 13:53:45 [employer]OR [employer] ARCHITECT by David Alcaraz M.D.
[2023-04-13] MEDS: SODIUM CHLORIDE 0.9% IV 1,000 ML 999 ML IV CONT (20:59)
[2023-04-13 21:04] LABS: Basophils Percent Auto 0.6 % (0.2-1.2); Eosinophils Absolute Auto 0.2 K/mm3 (0-0.3); Eosinophils Percent Auto 3.3 % (0-4.4); Hematocrit 43.8 % (42.0-52.0); Hemoglobin 14.1 g/dL (14.0-18.0); Immature Granulocyte Absolute 0.08 K/mm3 (0.00-0.031); Immature Granulocyte Percent A 1.1 % (0-0.5); Lymphocytes Absolute Auto 3.08 K/mm3 (0.9-3.2); Lymphocytes Percent Auto 43.7 % (18.3-44.2); Mean Corpuscular HGB Conc 32.2 g/dl (32-36); Mean Corpuscular Hemoglobin 30.3 pg (26-34); Mean Platelet Volume 9.9 fl (7.4-10.4); Monocytes Absolute Auto 0.5 K/mm3 (0.1-0.6); Monocytes Percent Auto 7.5 % (2.6-8.5); Neutrophils Absolute Auto 3.1 K/mm3 (1.3-6.7); Neutrophils Percent Auto 43.8 % (45.5-73.1); Platelet Count Result 174 k/mm3 (150-375); Red Blood Count 4.66 M/mm3 (4.6-6.20); Red Cell Distribution Width 13.7 % (11.5-14.5); White Blood Count 7.1 K/mm3 (4.5-10.0)
[2023-04-13 21:17] LABS: Alanine Aminotransferase 34 U/L (6-50); Albumin Level 4.5 g/dL (3.5-5.1); Alkaline Phosphatase 102 U/L (38-126); Anion Gap 14 mmol/L (8-16); Aspartate Amino Transferase 55 U/L (17-59); Bilirubin,Total 0.5 mg/dL (0.2-1.3); Blood Urea Nitrogen 20 mg/dL (9-20); Calcium 9.4 mg/dL (8.4-10.2); Carbon Dioxide 20 mmol/L (22-30); Chloride 106 mmol/L (98-107); Estimated CRCL calculation 103 ml/min; Estimated Glomerular Filt Rate > 60; Glucose 142 mg/dL (65-110); Magnesium 2.2 mg/dL (1.6-2.3); Potassium 3.8 mmol/L (3.4-5.0); Sodium 140 mmol/L (137-145)
[2023-04-13 21:18] LABS: Lactic Acid Reflex 1.2 mmol/L (0.7-2.0)
[2023-04-13 21:29] LABS: Troponin I < 0.012 ng/mL (0.000-0.034)
--- NOTE | 2023-04-13 22:01 | ED.GENADULT ---
HPI - General Adult General Chief complaint: Syncope Stated complaint: syncope Time Seen by Provider: 04/13/23 20:29 History of Present Illness HPI narrative: Is a 58-year-old gentleman who presents to the emergency department with chief complaint of syncope. Patient has prior history of seizures and also syncopal episodes. Patient reports he was at [facility] felt lightheaded as per his usual episode started to pass out was caught did not injure himself and the patient states he feels tired after the incident as he normally does Related Data Home Medications Medication Instructions Recorded Confirmed Topamax 400 mg PO DAILY 04/04/19 12/27/22 divalproex 500 mg tablet,delayed 500 mg PO Q12H 04/04/19 12/27/22 release (Depakote) albuterol sulfate 90 mcg/actuation 2 inh inhalation Q4H PRN Shortness 11/05/19 12/27/22 aerosol inhaler Of Breath aspirin 81 mg chewable tablet 81 mg PO DAILY 11/05/19 12/27/22 atorvastatin 10 mg tablet 10 mg PO HS 11/05/19 12/27/22 enalapril maleate 5 mg tablet 5 mg PO DAILY 11/05/19 12/27/22 fenofibrate 160 mg tablet 160 mg PO DAILY 11/05/19 12/27/22 fluticasone 250 mcg-salmeterol 50 1 inh inhalation BID 11/05/19 12/27/22 mcg/dose blistr powdr for inhalation (Advair Diskus) famotidine 20 mg tablet (Pepcid) 20 mg PO DAILY 05/14/21 12/27/22 Allergies Allergy/AdvReac Type Severity Reaction Status Date / Time phenobarbital AdvReac Unknown Other Verified 12/27/22 13:23 Review of Systems Review of Systems: A 10 system review of systems was completed on the patient and is negative except for what is stated in the HPI. Nursing and ancillary documentation was reviewed. [facility] Past Medical History Medical History Anxiety Arthritis Asthma COPD (chronic obstructive pulmonary disease) CVA (cerebral vascular accident) Depression Diabetes Epilepsy GERD (gastroesophageal reflux disease) GI bleed Head trauma Hyperlipidemia Hypertension IBS (irritable bowel syndrome) Sleep apnea Surgical History Surgical History History of open reduction and internal fixation (ORIF) procedure Hx of craniotomy temporal lobe resection Family History Family History Mother Hypertension Congestive heart failure Social History Social History Social History: The patient is single and never had any children. He lives alone. He is on disability. Surrogate decision maker: Sophia Pozo (mother) Smoking status: Never smoker Alcohol intake: never Substance use: never Substance use type: does not use Lack of Transportation: YES Lack of Food: Never True Current Housing: I Have Housing Concerned About Future Housing: YES Difficulty Paying Gas/Electric Bills: Decline to Answer Difficulty Paying for Meds: No Currently Unemployed: No Education: Grade School Difficulty w/ Childcare or Family Care: No Living arrangements: with family Gender identity (if verbalized by the patient): Male Sexual Orientation (if Verbalized by the Patient): Straight or Heterosexual Spiritual care concerns: No Exam Narrative: GENERAL: Well-appearing, well-nourished, and in no acute distress. HEAD: Normocephalic, atraumatic. EYES: PERRLA and EOMI. ENT: Nares clear, no rhinorrhea or epistaxis. Mucous membranes moist. NECK: Supple. CHEST: Clear to auscultation. No respiratory distress. HEART: Regular rate and rhythm. No murmur heard. Normal peripheral pulses. ABDOMEN: Soft, nontender, nondistended, normal active bowel sounds. EXTREMITIES: Normal range of motion. No edema. SKIN: Warm, dry, no rash. NEURO: No focal deficits. Alert and oriented x3. PSYCH: Normal mood and affect. Course Vital Signs Vital signs: Vital Signs
[2023-04-13 22:39] VITALS: BP 130/74; PULSE 84; RESP 16; O2SAT 100
== END 2023-04-13 22:40 | disposition home or self-care (01) ==
PROVIDERS: Emergency Provider Emergency Medicine; PCP Internal Medicine
DX: R55 Syncope and collapse (principal); J44.9 Chronic obstructive pulmonary disease, unspecified; E11.9 Type 2 diabetes mellitus without complications; E78.5 Hyperlipidemia, unspecified; I10 Essential (primary) hypertension; G40.909 Epilepsy, unspecified, not intractable, without status epilepticus; G47.30 Sleep apnea, unspecified; K58.9 Irritable bowel syndrome, unspecified; K21.9 Gastro-esophageal reflux disease without esophagitis; M19.90 Unspecified osteoarthritis, unspecified site; F41.9 Anxiety disorder, unspecified; F32.A Depression, unspecified; Z86.73 Personal history of transient ischemic attack (TIA), and cerebral infarction without residual deficits; Z79.82 Long term (current) use of aspirin; I44.0 Atrioventricular block, first degree; R94.31 Abnormal electrocardiogram [ECG] [EKG]; I45.10 Unspecified right bundle-branch block
CPT/HCPCS: 36415; 71045; 80053; 83605; 83735; 84484; 85025; 93005; 96360; 99284; J7030

== ENCOUNTER 2023-07-20 18:00 | Emergency (ER) | payer MEDICARE, MEDICAID, SELFPAY ==
--- NOTE | ~2023-07-20 | XR_ITS ---
EXAMINATION: XR chest 1V portable DATE: 07/20/2023 18:39 INDICATION: Near syncope. TECHNIQUE: A single frontal view of the chest was obtained. COMPARISON: Chest 2 views 04/13/2023 FINDINGS: There is mild atelectasis at left lung base. No pleural effusion or pneumothorax. The heart size is normal. There is an electronic implant overlying left chest. IMPRESSION: 1. Mild atelectasis at left lung base. Reviewed, dictated and finalized at location E. 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
[2023-07-20 18:01] VITALS: BP 134/70; PULSE 98; RESP 16; TEMP 36.4; O2SAT 99
--- NOTE | 2023-07-20 18:12 | ECG_ITS ---
Measurements Intervals [place] Rate: 92 P: 45 [place]: 235 QRS: -79 QRSD: 125 T: 30 QT: 383 QTc: 475 Interpretive Statements SINUS RHYTHM WITH FIRST DEGREE AV BLOCK LEFT AXIS DEVIATION INCOMPLETE RIGHT BUNDLE BRANCH BLOCK PATTERN CONSISTENT WITH PULMONARY DISEASE INFERIOR INFARCT, AGE INDETERMINATE ABNORMAL ECG COMPARED TO ECG 04/13/2023 18:41:59 NO SIGNIFICANT CHANGES Electronically Signed On 07-20-2023 18:31:49 DIRECTOR EXTERNAL COMMUNICATIONS by Nelson Nguyen D.O.
--- NOTE | 2023-07-20 18:13 | ED.DIZZY ---
HPI - Dizziness General Chief Complaint: Dizziness <Gael Guerra PA-C - Last Filed: 07/20/23 18:15> Stated Complaint: dizziness <Gael Guerra PA-C - Last Filed: 07/20/23 18:15> Time Seen by Provider: 07/20/23 18:15 <Gael Guerra PA-C - Last Filed: 07/20/23 18:15> Focused HPI: this is a 58-year-old male who presents to the ED for chief complaint of lightheadedness for the past couple of days. Reports that he had cardiac catheterization done 2 days ago at an outpatient surgery center with seeing was hard vascular. With Dr. Carlos. he states they also placed a loop recorder. Today he reports several episodes of near-syncope while at home. No specific association with exertion or standing up too fast. Denies chest pain, shortness of breath, vertigo, numbness, weakness, cough, leg swelling. GENERAL: Well-appearing, well-nourished, and in no acute distress. HEAD: Normocephalic, atraumatic. CHEST: Clear to auscultation. No respiratory distress. HEART: Regular rate and rhythm. NEURO: Alert and oriented x3. Patient screened in triage and initial orders placed. Additional care and disposition to be based upon diagnostic testing and treatment. <Gael Guerra PA-C - Last Filed: 07/20/23 18:15> A 58-year-old male with history of poorly controlled epilepsy presenting to ED after a seizure episode at home. Patient says for 5 minutes he ?zoned out.? At this time he could see but he could not act. After the event that ended and he called EMS. He was then brought to the hospital for evaluation. Patient states that he has episodes like this place week for the last several years. He denies any fevers chills chest pain difficulty breathing abdominal pain or flu-like symptoms. Patient has been taking all his medications. He denies any falls. Patient states he has had a EEG performed at [facility] in a neurologist they were told they saw no sign of epileptic activity. Patient did have a recent cardiac catheterization. No complaints of chest pain difficulty breathing lower extremity edema. GENERAL: Well-appearing, well-nourished, and in no acute distress. HEAD: Normocephalic, atraumatic. CHEST: Clear to auscultation. No respiratory distress. HEART: Regular rate and rhythm. NEURO: Alert and oriented x3. Patient screened in triage and initial orders placed. Additional care and disposition to be based upon diagnostic testing and treatment. <Jace Huerta MD - Last Filed: 07/20/23 20:12> Source: patient <Gael Guerra PA-C - Last Filed: 07/20/23 18:15> Mode of arrival: ambulatory <Gael Guerra PA-C - Last Filed: 07/20/23 18:15> Limitations: no limitations <Gael Guerra PA-C - Last Filed: 07/20/23 18:15> Related Data Home Medications: Home Medications Medication Instructions Recorded Confirmed Topamax 400 mg PO DAILY 04/04/19 12/27/22 divalproex 500 mg tablet,delayed 500 mg PO Q12H 04/04/19 12/27/22 release (Depakote) albuterol sulfate 90 mcg/actuation 2 inh inhalation Q4H PRN Shortness 11/05/19 12/27/22 aerosol inhaler Of Breath aspirin 81 mg chewable tablet 81 mg PO DAILY 11/05/19 12/27/22 atorvastatin 10 mg tablet 10 mg PO HS 11/05/19 12/27/22 enalapril maleate 5 mg tablet 5 mg PO DAILY 11/05/19 12/27/22 fenofibrate 160 mg tablet 160 mg PO DAILY 11/05/19 12/27/22 fluticasone 250 mcg-salmeterol 50 1 inh inhalation BID 11/05/19 12/27/22 mcg/dose blistr powdr for inhalation (Advair Diskus) famotidine 20 mg tablet (Pepcid) 20 mg PO DAILY 05/14/21 12/27/22 <Gael Guerra PA-C - Last Filed: 07/20/23 18:15> Allergies/Adverse Reactions: Allergies Allergy/AdvReac Type Severity Reaction Status Date / Time phenobarbital AdvReac Unknown Other Verified 07/20/23 18:00 <Gael Guerra PA-C - Last Filed: 07/20/23 18:15> [facility] Past Medical History Medical History: Medical History Anxiety Arthriti
[2023-07-20 18:47] LABS: Basophils Percent Auto 0.5 % (0.2-1.2); Eosinophils Absolute Auto 0.2 K/mm3 (0-0.3); Hematocrit 42.3 % (42.0-52.0); Hemoglobin 13.6 g/dL (14.0-18.0); Immature Granulocyte Absolute 0.07 K/mm3 (0.00-0.031); Immature Granulocyte Percent A 1.2 % (0-0.5); Lymphocytes Percent Auto 42.3 % (18.3-44.2); Mean Corpuscular HGB Conc 32.2 g/dl (32-36); Mean Corpuscular Hemoglobin 30.1 pg (26-34); Mean Corpuscular Volume 93.6 fl (80-100); Monocytes Absolute Auto 0.5 K/mm3 (0.1-0.6); Neutrophils Absolute Auto 2.7 K/mm3 (1.3-6.7); Platelet Count Result 166 k/mm3 (150-375); Red Blood Count 4.52 M/mm3 (4.6-6.20); Red Cell Distribution Width 13.4 % (11.5-14.5); White Blood Count 5.9 K/mm3 (4.5-10.0)
[2023-07-20 18:48] LABS: Appearance Urine Clear (Clear); Bilirubin Urine Negative (Negative); Blood Urine Negative (Negative); Color Urine Yellow (Yellow); Glucose Urine UA 3+ mg/dL (Negative); Ketones Urine Negative (Negative); Leukocyte Esterase Ur Negative LEU/UL (Negative); Nitrate Urine Negative (Negative); Protein Urine Negative (Negative); Specific Grav Ur 1.028 (1.001-1.035)
[2023-07-20 19:00] LABS: Alanine Aminotransferase 25 U/L (6-50); Albumin Level 4.1 g/dL (3.5-5.1); Alkaline Phosphatase 92 U/L (38-126); Anion Gap 9 mmol/L (8-16); Aspartate Amino Transferase 40 U/L (17-59); Bilirubin,Total 0.4 mg/dL (0.2-1.3); Blood Urea Nitrogen 23 mg/dL (9-20); Calcium 9.1 mg/dL (8.4-10.2); Carbon Dioxide 21 mmol/L (22-30); Chloride 108 mmol/L (98-107); Estimated CRCL calculation 107 ml/min; Estimated Glomerular Filt Rate > 60; Glucose 213 mg/dL (65-110); Potassium 3.8 mmol/L (3.4-5.0); Sodium 138 mmol/L (137-145)
[2023-07-20 19:03] LABS: INR 0.9
[2023-07-20 19:04] LABS: Partial Thromboplastin Time 24.9 SECONDS (22.3-36.8)
[2023-07-20 19:11] LABS: Troponin I < 0.012 ng/mL (0.000-0.034)
[2023-07-20 19:18] LABS: Add Urine Microscopic? NO
--- NOTE | 2023-07-20 19:41 | PC.NURSE ---
this rn assumed care of patient. this rn took patient report from SYLVIA Robledo.
== END 2023-07-20 20:15 | disposition home or self-care (01) ==
PROVIDERS: Physician Assistant; Emergency Provider Emergency Medicine; PCP Internal Medicine
DX: G40.909 Epilepsy, unspecified, not intractable, without status epilepticus (principal); J44.9 Chronic obstructive pulmonary disease, unspecified; E11.9 Type 2 diabetes mellitus without complications; E78.5 Hyperlipidemia, unspecified; G47.30 Sleep apnea, unspecified; K21.9 Gastro-esophageal reflux disease without esophagitis; K58.9 Irritable bowel syndrome, unspecified; F41.9 Anxiety disorder, unspecified; F32.A Depression, unspecified; M19.90 Unspecified osteoarthritis, unspecified site; Z95.818 Presence of other cardiac implants and grafts; Z86.73 Personal history of transient ischemic attack (TIA), and cerebral infarction without residual deficits; Z79.82 Long term (current) use of aspirin
CPT/HCPCS: 36415; 71045; 80053; 81003; 84484; 85025; 85610; 85730; 93005; 99284

== ENCOUNTER 2023-09-12 14:49 | Emergency (ER) | payer MEDICARE, MEDICAID, SELFPAY ==
--- NOTE | ~2023-09-12 | CT_ITS ---
EXAMINATION: CT brain wo con DATE: 09/12/2023 15:41 INDICATION: Syncope. TECHNIQUE: Computed tomography (CT) of the head was performed without intravenous contrast. The mA wa s adjusted according to patient size. Iterative reconstruction technique was employed. The dose-lengt h product was 681.00 mGy-cm. COMPARISON: Head CT 09/29/2022 FINDINGS: There is chronic encephalomalacia involving the right frontal and temporal lobes with overl ron craniotomy. There is no intracranial hemorrhage, acute infarction, or abnormal intracranial mass lesion. The ventricles are normal in size. The paranasal sinuses are clear. The orbits are normal. T he mastoid air cells are normal. IMPRESSION: 1. Chronic encephalomalacia involving the right frontal and temporal lobes. Reviewed, dictated and finalized at location A.
[2023-09-12 14:53] VITALS: BP 107/69; PULSE 84; RESP 16; TEMP 37.1; O2SAT 96
[2023-09-12 14:57] VITALS: BP 105/63; BP 107/69; PULSE 83
[2023-09-12 14:58] VITALS: BP 111/76; PULSE 85
--- NOTE | 2023-09-12 15:01 | ECG_ITS ---
SEE SCANNED COPY FOR CONFIRMED REPORT. MTDD
[2023-09-12 15:11] LABS: Basophils Percent Auto 0.8 % (0.2-1.2); Eosinophils Absolute Auto 0.2 K/mm3 (0-0.3); Eosinophils Percent Auto 2.9 % (0-4.4); Hematocrit 41.4 % (42.0-52.0); Hemoglobin 13.6 g/dL (14.0-18.0); Immature Granulocyte Absolute 0.03 K/mm3 (0.00-0.031); Immature Granulocyte Percent A 0.6 % (0-0.5); Lymphocytes Absolute Auto 2.65 K/mm3 (0.9-3.2); Lymphocytes Percent Auto 50.9 % (18.3-44.2); Mean Corpuscular HGB Conc 32.9 g/dl (32-36); Mean Corpuscular Hemoglobin 30.8 pg (26-34); Mean Corpuscular Volume 93.9 fl (80-100); Monocytes Absolute Auto 0.7 K/mm3 (0.1-0.6); Monocytes Percent Auto 12.9 % (2.6-8.5); Neutrophils Absolute Auto 1.7 K/mm3 (1.3-6.7); Neutrophils Percent Auto 31.9 % (45.5-73.1); Platelet Count Result 197 k/mm3 (150-375); Red Blood Count 4.41 M/mm3 (4.6-6.20); Red Cell Distribution Width 13.2 % (11.5-14.5); White Blood Count 5.2 K/mm3 (4.5-10.0)
[2023-09-12 15:48] LABS: Alanine Aminotransferase 27 U/L (6-50); Albumin Level 4.4 g/dL (3.5-5.1); Alkaline Phosphatase 83 U/L (38-126); Anion Gap 11 mmol/L (4-12); Aspartate Amino Transferase 47 U/L (17-59); Bilirubin,Total 0.4 mg/dL (0.2-1.3); Blood Urea Nitrogen 18 mg/dL (9-20); Calcium 9.4 mg/dL (8.4-10.2); Carbon Dioxide 21 mmol/L (22-30); Chloride 107 mmol/L (98-107); Estimated CRCL calculation 84 ml/min; Estimated Glomerular Filt Rate > 60; Glucose 167 mg/dL (65-110); Magnesium 2.1 mg/dL (1.6-2.3); Potassium 3.5 mmol/L (3.4-5.0); Sodium 139 mmol/L (137-145)
[2023-09-12 15:59] LABS: Troponin I < 0.012 ng/mL (0.000-0.034)
[2023-09-12 16:11] VITALS: BP 119/66; PULSE 84; RESP 16; TEMP 36.8; O2SAT 98
[2023-09-12 16:20] LABS: Appearance Urine Clear (Clear); Bilirubin Urine Negative (Negative); Blood Urine Negative (Negative); Color Urine Yellow (Yellow); Glucose Urine UA 3+ mg/dL (Negative); Ketones Urine Negative (Negative); Leukocyte Esterase Ur Negative LEU/UL (Negative); Nitrate Urine Negative (Negative); Protein Urine Negative (Negative); Specific Grav Ur 1.023 (1.001-1.035); Urobilinogen Urine 0.2 mg/dL (<2.0); pH Urine 5.5 (5.0-9.0)
[2023-09-12 16:22] LABS: Add Urine Microscopic? YES
--- NOTE | 2023-09-12 16:31 | ED.SYNCOPE ---
HPI - Syncope General Chief Complaint: Syncope Stated Complaint: syncopal Time Seen by Provider: 09/12/23 15:04 Source: patient and old records reviewed Mode of arrival: EMS Limitations: no limitations History of Present Illness HPI narrative: Patient is a 58-year-old male, with PMH of CVA, epilepsy, temporal lobe resection, who presents the ED via EMS with report of syncope. Patient is well known to our facility. Hx of multiple previous similar syncopal episodes, frequently occur at [facility] and [facility]. Patient reports he was at [facility] today when he began feeling lightheaded. He stated out loud that he felt he was going to pass out. A bystander helped him to the ground. He did not fall. EMS was then contacted. Bystander told EMS that patient lost consciousness for only a few seconds. Patient states he feels improved currently. Denies any further dizziness or lightheadedness. Feels mildly fatigued. He does also report having diarrhea for the last 1 week. Denies rectal bleeding or melena. Denies abdominal pain, nausea, vomiting, fevers. Denies focal weakness or numbness. Denies chest pain or shortness of breath. Has been taking his normal medications as prescribed. Related Data Home Medications Medication Instructions Recorded Confirmed Topamax 400 mg PO DAILY 04/04/19 12/27/22 divalproex 500 mg tablet,delayed 500 mg PO Q12H 04/04/19 12/27/22 release (Depakote) albuterol sulfate 90 mcg/actuation 2 inh inhalation Q4H PRN Shortness 11/05/19 12/27/22 aerosol inhaler Of Breath aspirin 81 mg chewable tablet 81 mg PO DAILY 11/05/19 12/27/22 atorvastatin 10 mg tablet 10 mg PO HS 11/05/19 12/27/22 enalapril maleate 5 mg tablet 5 mg PO DAILY 11/05/19 12/27/22 fenofibrate 160 mg tablet 160 mg PO DAILY 11/05/19 12/27/22 fluticasone 250 mcg-salmeterol 50 1 inh inhalation BID 11/05/19 12/27/22 mcg/dose blistr powdr for inhalation (Advair Diskus) famotidine 20 mg tablet (Pepcid) 20 mg PO DAILY 05/14/21 12/27/22 Allergies Allergy/AdvReac Type Severity Reaction Status Date / Time phenobarbital AdvReac Unknown Other Verified 07/20/23 18:00 Review of Systems Review of Systems: CONSTITUTIONAL: Denies fever, chills, or sweats. CARDIOVASCULAR: Denies chest pain. RESPIRATORY: Denies dyspnea. GASTROINTESTINAL: See HPI. GENITOURINARY: Denies dysuria or hematuria. MUSCULOSKELETAL: Denies back pain, extremity pain, myalgia. NEUROLOGIC: See HPI. All systems reviewed & are unremarkable except as noted in HPI and below PMFSH Past Medical History Medical History Anxiety Arthritis Asthma COPD (chronic obstructive pulmonary disease) CVA (cerebral vascular accident) Depression Diabetes Epilepsy GERD (gastroesophageal reflux disease) GI bleed Head trauma Hyperlipidemia Hypertension IBS (irritable bowel syndrome) Sleep apnea Surgical History Surgical History History of open reduction and internal fixation (ORIF) procedure Hx of craniotomy temporal lobe resection Family History Family History Mother Hypertension Congestive heart failure Social History Social History Social History: The patient is single and never had any children. He lives alone. He is on disability. Surrogate decision maker: Sophia Pozo (mother) Smoking status: Never smoker Alcohol intake: never Substance use: never Substance use type: does not use Lack of Transportation: YES Lack of Food: Never True Current Housing: I Have Housing Concerned About Future Housing: YES Difficulty Paying Gas/Electric Bills: Decline to Answer Difficulty Paying for Meds: No Currently Unemployed: No Education: Grade School Difficulty w/ Childcare or Family Care: No Living arrangements:
[2023-09-12] MEDS: SODIUM CHLORIDE 0.9% IV 1,000 ML 999 ML IV CONT (16:38)
--- NOTE | 2023-09-12 16:38 | PC.NURSE ---
initially refused fluid bolus then agreed
--- NOTE | 2023-09-12 16:55 | PC.NURSE ---
fluids infused at this time. Went in quickly due to pressure bag, hung high on IV pole and large bore SLN. Pt tolerated fluids
== END 2023-09-12 17:00 | disposition home or self-care (01) ==
PROVIDERS: Emergency Medicine; Emergency Provider Physician Assistant; PCP Internal Medicine
DX: R55 Syncope and collapse (principal); G40.909 Epilepsy, unspecified, not intractable, without status epilepticus; J44.9 Chronic obstructive pulmonary disease, unspecified; E11.9 Type 2 diabetes mellitus without complications; E78.5 Hyperlipidemia, unspecified; G47.30 Sleep apnea, unspecified; K21.9 Gastro-esophageal reflux disease without esophagitis; K58.9 Irritable bowel syndrome, unspecified; F41.9 Anxiety disorder, unspecified; F32.A Depression, unspecified; M19.90 Unspecified osteoarthritis, unspecified site; Z95.818 Presence of other cardiac implants and grafts; Z86.73 Personal history of transient ischemic attack (TIA), and cerebral infarction without residual deficits; Z79.82 Long term (current) use of aspirin; I45.2 Bifascicular block; G93.89 Other specified disorders of brain
CPT/HCPCS: 36415; 70450; 80053; 81001; 83735; 84484; 85025; 93005; 99284; J7030

== ENCOUNTER 2023-10-11 20:22 | Emergency (ER) | payer MEDICARE, MEDICAID, SELFPAY ==
--- NOTE | ~2023-10-11 | CT_ITS ---
EXAMINATION: CT abdomen pelvis w con DATE: 10/11/2023 22:12 INDICATION: epigastric tenderness TECHNIQUE: Computed tomography (CT) of the abdomen and pelvis was performed with 100 mL Omnipaque-350 intravenous contrast. Automated exposure control and iterative reconstruction technique were employe d. The dose-length product was 2302.31 mGy-cm. COMPARISON: 03/06/2022. FINDINGS: Portions of the bilateral lateral abdominal sidewall excluded the [id number]. Lower thorax: Minimal coronary artery calcification. Mild bibasilar scar. Liver: Enlarged. Biliary/Gallbladder: Gallbladder is normal. No bile duct dilation. Pancreas: Mild atrophy. Spleen: Enlarged. Adrenals:No mass. Kidneys: No suspicious mass, obstructing stone, or hydronephrosis. GI tract: No small or large bowel dilation. Normal appendix. Mesentery/Peritoneum: No ascites, mass, or free air. Retroperitoneum: No mass. Atherosclerotic abdominal aortic and/or arterial calcifications. Pelvis: Pelvic organs are within normal limits. Soft Tissues: Small uncomplicated fat-containing left inguinal hernia Bones: No acute osseous finding. IMPRESSION: Hepatosplenomegaly. Otherwise unremarkable CT abdomen and pelvis findings. Reviewed, dictated and finalized at location K.
[2023-10-11 20:24] VITALS: TEMP 36.6
[2023-10-11 20:29] VITALS: BP 119/66; PULSE 80; RESP 18; O2SAT 98
--- NOTE | 2023-10-11 20:32 | ED.GENADULT ---
HPI - General Adult General Chief complaint: Unspecified Stated complaint: difficulty swallowing Time Seen by Provider: 10/11/23 20:26 Source: patient Mode of arrival: ambulatory Limitations: no limitations History of Present Illness HPI narrative: This is a 58-year-old male with PMH of epilepsy, COPD, CVA, diabetes who presents to the ED with chief complaint of epigastric pain when eating and drinking for the past 3-4 days. Triage note mentions stated complaint of difficulty swelling, however patient is more so complaining of pain shortly after eating. Reports a sharp burning pain specifically to the epigastrium. It does not radiate. States he is able to swallow without difficulty. Denies fevers, chills, nausea, vomiting, diarrhea or problems with bowel movements. Denies urinary symptoms or flank pain. Related Data Home Medications Medication Instructions Recorded Confirmed Topamax 400 mg PO DAILY 04/04/19 12/27/22 divalproex 500 mg tablet,delayed 500 mg PO Q12H 04/04/19 12/27/22 release (Depakote) albuterol sulfate 90 mcg/actuation 2 inh inhalation Q4H PRN Shortness 11/05/19 12/27/22 aerosol inhaler Of Breath aspirin 81 mg chewable tablet 81 mg PO DAILY 11/05/19 12/27/22 atorvastatin 10 mg tablet 10 mg PO HS 11/05/19 12/27/22 enalapril maleate 5 mg tablet 5 mg PO DAILY 11/05/19 12/27/22 fenofibrate 160 mg tablet 160 mg PO DAILY 11/05/19 12/27/22 fluticasone 250 mcg-salmeterol 50 1 inh inhalation BID 11/05/19 12/27/22 mcg/dose blistr powdr for inhalation (Advair Diskus) famotidine 20 mg tablet (Pepcid) 20 mg PO DAILY 05/14/21 12/27/22 Allergies Allergy/AdvReac Type Severity Reaction Status Date / Time phenobarbital AdvReac Unknown Other Verified 07/20/23 18:00 Review of Systems Review of Systems: All systems as dictated in [facility] Past Medical History Medical History Anxiety Arthritis Asthma COPD (chronic obstructive pulmonary disease) CVA (cerebral vascular accident) Depression Diabetes Epilepsy GERD (gastroesophageal reflux disease) GI bleed Head trauma Hyperlipidemia Hypertension IBS (irritable bowel syndrome) Sleep apnea Surgical History Surgical History History of open reduction and internal fixation (ORIF) procedure Hx of craniotomy temporal lobe resection Family History Family History Mother Hypertension Congestive heart failure Social History Social History Social History: The patient is single and never had any children. He lives alone. He is on disability. Surrogate decision maker: Sophia Pozo (mother) Smoking status: Never smoker Alcohol intake: never Substance use: never Substance use type: does not use Lack of Transportation: YES Lack of Food: Never True Current Housing: I Have Housing Concerned About Future Housing: YES Difficulty Paying Gas/Electric Bills: Decline to Answer Difficulty Paying for Meds: No Currently Unemployed: No Education: Grade School Difficulty w/ Childcare or Family Care: No Living arrangements: with family Gender identity (if verbalized by the patient): Male Sexual Orientation (if Verbalized by the Patient): Straight or Heterosexual Spiritual care concerns: No Exam Narrative: GENERAL: Well-appearing, well-nourished, and in no acute distress. HEAD: Normocephalic, atraumatic. EYES: PERRLA and EOMI. ENT: Nares clear, no rhinorrhea or epistaxis. Mucous membranes moist. Oropharynx without tonsillar hypertrophy exudate or other lesions. NECK: Supple. No adenopathy or masses. CHEST: No respiratory distress. Clear to auscultation. No wheezes rales or rhonchi HEART: Regular rate and rhythm. No murmur heard. Normal peripheral pulses. ABDOMEN: Soft, n
--- NOTE | 2023-10-11 20:33 | ECG_ITS ---
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 Measurements Intervals [place] Rate: 76 P: 47 OR: 216 QRS: -76 QRSD: 124 T: 31 QT: 434 QTc: 488 Interpretive Statements SINUS RHYTHM WITH FIRST DEGREE AV BLOCK LEFT AXIS DEVIATION INCOMPLETE RIGHT BUNDLE BRANCH BLOCK POOR WAVE PROGRESSION CONSIDER INFERIOR INFARCT, AGE INDETERMINATE ABNORMAL ECG No previous ECG available for comparison Electronically Signed On 10-11-2023 21:20:07 CDT by Nelson Nguyen D.O.
[2023-10-11] MEDS: FAMOTIDINE 20 MG/2 ML VIAL IV PUSH (21:39)
[2023-10-11 21:42] LABS: Basophils Percent Auto 0.2 % (0.2-1.2); Eosinophils Absolute Auto 0.1 K/mm3 (0-0.3); Eosinophils Percent Auto 2.4 % (0-4.4); Hematocrit 44.5 % (42.0-52.0); Hemoglobin 14.3 g/dL (14.0-18.0); Immature Granulocyte Absolute 0.02 K/mm3 (0.00-0.031); Immature Granulocyte Percent A 0.4 % (0-0.5); Lymphocytes Absolute Auto 1.95 K/mm3 (0.9-3.2); Lymphocytes Percent Auto 36.4 % (18.3-44.2); Mean Corpuscular HGB Conc 32.1 g/dl (32-36); Mean Corpuscular Hemoglobin 30.6 pg (26-34); Mean Corpuscular Volume 95.3 fl (80-100); Mean Platelet Volume 9.8 fl (7.4-10.4); Monocytes Absolute Auto 0.4 K/mm3 (0.1-0.6); Monocytes Percent Auto 7.5 % (2.6-8.5); Neutrophils Absolute Auto 2.9 K/mm3 (1.3-6.7); Neutrophils Percent Auto 53.1 % (45.5-73.1); Platelet Count Result 165 k/mm3 (150-375); Red Blood Count 4.67 M/mm3 (4.6-6.20); Red Cell Distribution Width 12.8 % (11.5-14.5); White Blood Count 5.4 K/mm3 (4.5-10.0)
[2023-10-11 21:52] LABS: Alanine Aminotransferase 19 U/L (6-50); Albumin Level 4.3 g/dL (3.5-5.1); Alkaline Phosphatase 86 U/L (38-126); Anion Gap 10 mmol/L (4-12); Aspartate Amino Transferase 34 U/L (17-59); Bilirubin,Total 0.4 mg/dL (0.2-1.3); Blood Urea Nitrogen 21 mg/dL (9-20); Calcium 9.2 mg/dL (8.4-10.2); Carbon Dioxide 22 mmol/L (22-30); Chloride 106 mmol/L (98-107); Estimated CRCL calculation 83 ml/min; Estimated Glomerular Filt Rate > 60; Glucose 180 mg/dL (65-110); Lipase 191 U/L (23-300); Potassium 3.8 mmol/L (3.4-5.0); Sodium 138 mmol/L (137-145)
== END 2023-10-11 22:55 | disposition home or self-care (01) ==
PROVIDERS: Emergency Provider Physician Assistant; PCP Internal Medicine
DX: K29.70 Gastritis, unspecified, without bleeding (principal); I10 Essential (primary) hypertension; J44.9 Chronic obstructive pulmonary disease, unspecified; E11.9 Type 2 diabetes mellitus without complications; E78.5 Hyperlipidemia, unspecified; G40.909 Epilepsy, unspecified, not intractable, without status epilepticus; G47.30 Sleep apnea, unspecified; K58.9 Irritable bowel syndrome, unspecified; M19.90 Unspecified osteoarthritis, unspecified site; Z86.73 Personal history of transient ischemic attack (TIA), and cerebral infarction without residual deficits; Z79.82 Long term (current) use of aspirin; Z79.899 Other long term (current) drug therapy
CPT/HCPCS: 36415; 74177; 80048; 80076; 83690; 85025; 93005; 96374; 99284; Q9967

== ENCOUNTER 2023-12-25 15:23 | Emergency (ER) | payer MEDICARE, MEDICAID, SELFPAY ==
[2023-12-25 15:32] VITALS: BP 114/54; PULSE 97; RESP 14; TEMP 36.5; O2SAT 99
--- NOTE | 2023-12-25 17:30 | ED.GENADULT ---
HPI - General Adult General Chief complaint: Syncope Stated complaint: via EMS for syncopal episode Time Seen by Provider: 12/25/23 17:21 History of Present Illness HPI narrative: This is a 58-year-old male well known to our emergency department for multiple syncopal episodes. Patient was waiting for a bus when he started to feel lightheaded. His vision started to DM. He then lowered himself to the ground and then started to improve. No chest pain palpitations shortness of breath or any other symptoms during this event. This is his typical syncopal event. However bystanders called EMS and they brought him to the hospital. Patient does not want to be at the hospital. He does not want a workup. Related Data Home Medications Medication Instructions Recorded Confirmed Topamax 400 mg PO DAILY 04/04/19 12/27/22 divalproex 500 mg tablet,delayed 500 mg PO Q12H 04/04/19 12/27/22 release (Depakote) albuterol sulfate 90 mcg/actuation 2 inh inhalation Q4H PRN Shortness 11/05/19 12/27/22 aerosol inhaler Of Breath aspirin 81 mg chewable tablet 81 mg PO DAILY 11/05/19 12/27/22 atorvastatin 10 mg tablet 10 mg PO HS 11/05/19 12/27/22 enalapril maleate 5 mg tablet 5 mg PO DAILY 11/05/19 12/27/22 fenofibrate 160 mg tablet 160 mg PO DAILY 11/05/19 12/27/22 fluticasone 250 mcg-salmeterol 50 1 inh inhalation BID 11/05/19 12/27/22 mcg/dose blistr powdr for inhalation (Advair Diskus) famotidine 20 mg tablet (Pepcid) 20 mg PO DAILY 05/14/21 12/27/22 Allergies Allergy/AdvReac Type Severity Reaction Status Date / Time phenobarbital AdvReac Unknown Other Verified 12/25/23 15:23 [facility] Past Medical History Medical History Anxiety Arthritis Asthma COPD (chronic obstructive pulmonary disease) CVA (cerebral vascular accident) Depression Diabetes Epilepsy GERD (gastroesophageal reflux disease) GI bleed Head trauma Hyperlipidemia Hypertension IBS (irritable bowel syndrome) Sleep apnea Surgical History Surgical History History of open reduction and internal fixation (ORIF) procedure Hx of craniotomy temporal lobe resection Family History Family History Mother Hypertension Congestive heart failure Social History Social History Social History: The patient is single and never had any children. He lives alone. He is on disability. Surrogate decision maker: Sophia Pozo (mother) Smoking status: Never smoker Alcohol intake: never Substance use: never Substance use type: does not use Lack of Transportation: YES Lack of Food: Never True Current Housing: I Have Housing Concerned About Future Housing: YES Difficulty Paying Gas/Electric Bills: Decline to Answer Difficulty Paying for Meds: No Currently Unemployed: No Education: Grade School Difficulty w/ Childcare or Family Care: No Living arrangements: with family Gender identity (if verbalized by the patient): Male Sexual Orientation (if Verbalized by the Patient): Straight or Heterosexual Spiritual care concerns: No Exam Narrative: APPEARANCE: No apparent distress. A&O x4 Head: atraumatic. EYES: EOMI, NOSE: Atraumatic NECK: Trachea midline RESPIRATORY: No increased rate of breathing clear to auscultation CARDIOVASCULAR: RRR, no peripheral edema ABDOMINAL: Non-distended soft nontender MUSCULOSKELETAl: No obvious deformities NEURO: Alert. Moving 4/4 extremities SKIN:: Warm, dry. Normal color PSYCHIATRIC: Normal affect Course Vital Signs Vital signs: Vital Signs Temperature 97.7 F 12/25/23 15:32 Pulse Rate 97 12/25/23 15:32 Respiratory Rate 14 12/25/23 15:32 Blood Pressure 114/54 L 12/25/23 15:32 Pulse Oximetry 99 12/25/23 15:32 Temperature 97.7 F 12/25/23 15:32 Pulse Ra
--- NOTE | 2023-12-25 17:33 | ECG_ITS ---
Test Date: 2023-12-25 17:47:21 Measurements Intervals [place] Rate: 92 P: 42 [place]: 188 QRS: -83 QRSD: 124 T: 22 QT: 384 QTc: 476 Interpretive Statements SINUS RHYTHM RIGHT BUNDLE BRANCH BLOCK [120+ ms QRS DURATION, UPRIGHT V1, 40+ ms S IN I/aVL/V4/V5/V6] LEFT ANTERIOR FASCICULAR BLOCK [QRS AXIS <= -45, QR IN I, RS IN II] INFERIOR INFARCT, OLD Compared to ECG 10/11/2023 21:09:10 NO SIGNIFICANT CHANGES Electronically Signed On 12-26-2023 09:24:51 CDT by Yandel Covarrubias M.D.
[2023-12-25 17:50] VITALS: BP 113/67; PULSE 76; PULSE 93; RESP 18; O2SAT 98
== END 2023-12-25 18:16 | disposition home or self-care (01) ==
PROVIDERS: Emergency Provider Emergency Medicine; PCP Internal Medicine
DX: R55 Syncope and collapse (principal); I10 Essential (primary) hypertension; J44.9 Chronic obstructive pulmonary disease, unspecified; E11.9 Type 2 diabetes mellitus without complications; E78.5 Hyperlipidemia, unspecified; K58.9 Irritable bowel syndrome, unspecified; G40.909 Epilepsy, unspecified, not intractable, without status epilepticus; G47.30 Sleep apnea, unspecified; F41.9 Anxiety disorder, unspecified; F32.A Depression, unspecified; M19.90 Unspecified osteoarthritis, unspecified site; Z86.73 Personal history of transient ischemic attack (TIA), and cerebral infarction without residual deficits; Z79.82 Long term (current) use of aspirin; Z79.899 Other long term (current) drug therapy; I45.10 Unspecified right bundle-branch block; I45.2 Bifascicular block
CPT/HCPCS: 93005; 99284

== ENCOUNTER 2024-05-16 18:35 | Emergency (ER) | payer MEDICARE, MEDICAID, SELFPAY ==
--- NOTE | ~2024-05-16 | XR_ITS ---
XR chest 2V Ordering provider: Ky Coleman MD History: 59 years Male with . syncope . Comparison: July 30, 2023 July 30, 2023 FINDINGS: MEDIASTINUM: The cardiac silhouette is not enlarged. Device is Projected over the left hemithorax. LUNGS: No infiltrates, effusions or pneumothorax. OTHER: No free air under the diaphragm. Degenerative changes of the spine. IMPRESSION: No acute cardiopulmonary pathology. Reviewed, dictated and finalized at location A. R SYSTEM INSTALLER
[2024-05-16 18:37] VITALS: BP 145/63; PULSE 102; RESP 20; TEMP 36.3; O2SAT 97
--- NOTE | 2024-05-16 20:50 | ECG_ITS ---
Test Date: 2024-05-16 21:07:21 Measurements Intervals Ferguson Rate: 90 P: 45 ME: 203 QRS: -74 QRSD: 122 T: 23 QT: 391 QTc: 481 Interpretive Statements SINUS RHYTHM LEFT ANTERIOR FASCICULAR BLOCK [QRS AXIS <= -45, QR IN I, RS IN II] INCOMPLETE RIGHT BUNDLE BRANCH BLOCKRIGHT BUNDLE BRANCH BLOCK INFERIOR INFARCT, OLD Compared to ECG 12/25/2023 17:47:21 NO SIGNIFICANT CHANGES Electronically Signed On 05-20-2024 17:51:54 RETAIL SALESMAN by Yandel Covarrubias M.D.
--- NOTE | 2024-05-17 04:16 | PC.NURSE ---
Pt IV was removed by this RN before pt left ed.
--- OUTSIDE RECORDS SUMMARY | 2024-05-24 02:00 | XMS_ITS ---
Author Name Jeremias JAY Rene flanagan Address Unknown Phone tel: Organization Unknown Address Unknown Phone tel: Care Team Providers Care Structural Steel Fitter Name Role Phone Mahogany Mcdowell NP Primary Care Provider tel: Shannen Horne Primary Care Provider tel: ALLERGIES, ADVERSE REACTIONS Data in this section may be excluded or not available. ASSESSMENTS Data in this section may be excluded or not available. SOCIAL HISTORY Description Effective Dates Sex M (Male) VITAL SIGNS Type Value Date Height (Code: 8302-2 ) 70 ( [in_i] ) August 29, 2022 Weight (Code: 71745-3 ) 236 ( [lb_av] ) August 122022 BP (Systolic) (Code: 8480-6 ) 110 ( mm[Hg] ) A pril 2022 BP (Diastolic) (Code: 8462-4 ) 70 ( mm[Hg] ) August 29, 2022 Pulse (Code: 8867-4 ) 78 ( /min ) August 29, 2022 Oxygen Saturation (Code: 84876-9 ) 98 ( % ) August 29, 2022 Inhaled Oxygen Concentration (Code: 3150-0 ) 21 ( % ) August 29, 2022 BMI (Code: 57956-1 ) 33.9 ( kg/m2 ) August 29, 2022 Temperature (Code: 8310-5 ) 97.2 ( [degF] ) Apr il 2022 Respiration (Code: 9279-1 ) 18 ( /min ) Apri l 2022 PROBLEMS Data in this section may be excluded or not available. Patient Care Teams * Care Structural Steel Fitter Role on Team Date Mitchell. Mahogany Horne. Shannen
--- OUTSIDE RECORDS SUMMARY | 2024-05-24 02:00 | XMS_ITS | Continuity of Care Document ---
Author Organization [facility] Address [address] [place] [address] [address] [place] [address] Insurance Providers Payer Plan Claims Address Claims Phone Policy Number Group Number Relation Employer Guarantor Name Guarantor Guarantor Address Guarantor Phone RX [employer] AJ TA tel:[phone] [id number] Dennis Branch 1965 [address] [place] [address] [employer] [address] [address], [place] [address] tel:[phone] [id number] Self Dennis Branch 1965 [address] [place], [place] [id number] MEDIC AID [address] [address], [place] [address] [id number] Self Dennis Branch 1965 [address] [place], [place] [id number] Problems Unknown Problems Results No Results Allergies, adverse reactions, alerts No known allergies and adverse reactions Medications No administered medications reported Vital Signs Date Vital Result Comment 10/23/2022 Inhaled Oxygen Concentration 21.0 % N Temperature 97.5 [degF] N Oxygen Saturation 97 % N Respiratory Rate 31 /min N Heart Rate 84 /min N Blood Pressure Systolic 106 mm[Hg] N Blood Pressure Diastolic 68 mm[Hg] N Body Height 70 [in_i] N Body Weight 232 [lb_av] N Body Mass Index 33.3 kg/m2 N 11/05/2023 Inhaled Oxygen Concentration 21.0 % N Faces Pain Scale 0.0 N Temperature 98 [degF] N Oxygen Saturation 98 % N Respiratory Rate 16 /min N Heart Rate 82 /min N Blood Pressure Systolic 116 mm[Hg] N Blood Pressure Diastolic 60 mm[Hg] N Body Height 70 [in_i] N Body Weight 224 [lb_av] N Body Mass Index 32.1 kg/m2 N 08/29/2022 Inhaled Oxygen Concentration 21.0 % N Temperature 97.2 [degF] N Oxygen Saturation 98 % N Respiratory Rate 18 /min N Heart Rate 78 /min N Blood Pressure Systolic 110 mm[Hg] N Blood Pressure Diastolic 70 mm[Hg] N Body Height 70 [in_i] N Body Weight 236 [lb_av] N Body Mass Index 33.9 kg/m2 N 05/18/2023 Inhaled Oxygen Concentration 21.0 % N Temperature 97.1 [degF] N Oxygen Saturation 98 % N Heart Rate 79 /min N Blood Pressure Systolic 130 mm[Hg] N Blood Pressure Diastolic 68 mm[Hg] N Body Height 70 [in_i] N Body Weight 237 [lb_av] N Body Mass Index 34 kg/m2 N 03/14/2024 Inhaled Oxygen Concentration 21.0 % N Faces Pain Scale 0.0 N Temperature 98.2 [degF] N Oxygen Saturation 97 % N Respiratory Rate 16 /min N Heart Rate 86 /min N Blood Pressure Systolic 138 mm[Hg] N Blood Pressure Diastolic 76 mm[Hg] N Body Height 70 [in_i] N Body Weight 223 [lb_av] N Body Mass Index 32 kg/m2 N Social History No smoking Hx information available Functional Status Category Condition Date Problem (Feeding: Independent) Feeding: Independ ent 10/23/2022 Problem (Bathing: Independen t (or in shower)) Bathing: Independent (or in shower) 10/23/2022 Problem (Grooming: Independe nt face/hair/teeth/ shaving (implements provided)) Grooming: Independent face/hair/teeth/ shaving (implements provided) 10/23/2022 Problem (Dressing: Independe nt (including buttons, zips, laces, etc.)) Dressing: Independent (including buttons, zips, laces, etc.) 10/23/2022 Problem (Bowels: Continent) Bowels: Continent Problem (Bladder: Continent) Bladder: Continent 10/23/2022 Problem (Toilet use: Indepen dent (on and off, dressing, wiping)) Toilet use: Independent (on and off, dressing, wiping) 10/23/2022 Problem (Transfers (bed to c hair and back): Independent) Transfers (bed to chair and back): Independent 10/23/2022 Problem (Mobility (on level surfaces): Independent (but may use any aid; for example, stick) >50 yards) Mobility (on level surfaces): Independent (but may use any aid; for example, stick) >50 yards 10/23/2022 Problem (Stairs: Independent) Stairs: Independen t 10/23/2022 Problem (Total score: 100) Total score: 100 10/12 Problem (Feeding: Independent) Feeding: Independ ent 11/05/2023 Problem (Bladder: Continent) Bladder: Continent 11/05/2023 Problem (Grooming: Independe nt face/hair/teeth/ shaving (implements provided)) Grooming: Independent face/hair/teeth/ shaving (implements provided) 11/05/2023 Problem (Toilet use: Indepen dent (on and off, dressing, wiping)) Toilet use: Independent (on and off, dressing, wiping) 11/05/2023 Problem (Dressing: Independe nt (including buttons, zips, laces, etc.)) Dressing: Independent (including buttons, zips, laces, etc.) 11/05/2023 Problem (Transfers (bed to c hair and back): Independent) Transfers (bed to chair and back): Independent 11/05/2023 Problem (Stairs: Independent) Stairs: Independen t 11/05/2023 Problem (Bowels: Continent) Bowels: Continent Problem (Bathing: Independen t (or in shower)) Bathing: Independent (or in shower) 11/05/2023 Problem (Mobility (on level surfaces): Independent (but may use any aid; for example, stick) >50 yards) Mobility (on level surfaces): Independent (but may use any aid; for example, stick) >50 yards 11/05/2023 Problem (Total score: 100) Total score: 100 10/13 Mental Status Category Condition Date Cognitive function Normal 10/23/2022 Cognitive function Normal 11/05/2023
--- OUTSIDE RECORDS SUMMARY | 2024-05-24 02:00 | XMS_ITS | Continuity of Care Document ---
[facility] Address [address] [place] [address] Care Team Providers Care Industrial Technology Teacher Name Role Phone SERGEY WILSON Primary Care Provider Unavailabl e Assessment Encounter Date Assessment Date Assessment LastModified by Organization Details LastModified Time 04/23/2024 04/23/2024 Keflex t.i.d. 500 mg 10 days he does not improve he will call back [email or web address] Not available 04/26/2024 15:00:38 Plan of Treatment Reminders Order Date Submit Date Provider Last Modified By Organization Details Last Modified Time Details Appointments ANY 15 2024 01:15P Katie Wilson MD Not available Not available Not available Lab None recorded. Referral None recorded. Procedures None recorded. Surgeries None recorded. Imaging None recorded. Medication Orders cephalexi n 500 mg capsule 2023 024 [id number], [address] [place], [place], [id number], 04/23/2024 22:12:28 Patient TargetsNo targets recorded. Patient InstructionsNo instructions recorded. Reason for Referral None Reported. Results Created Date Observation Date Name Description Value Unit Range Abnormal Flag Note LastModifiedBy Organization Detail LastModifiedTime 03/24/2003/24/2024 XR, chest No observ ation record ed. [facility] [address] [place], [address], 03/26/2024 10:32:09 03/24/20 24 03/24/2024 CT, head, w/o contr ast No observ ation record ed. [facility] [address] [place], [address], 03/26/2024 10:32:49 04/17/20 24 04/17/2024 XR, finge r(s) No observ ation record ed. [facility] [address] [place], [address], 04/20/2024 22:27:04 04/17/20 24 04/17/2024 XR, hip + pelvi s, bilat eral, 3 or 4 view No observ ation record ed. [facility] [address] [place], [address], 04/21/2024 09:25:59 04/17/20 24 04/17/2024 XR, cervi ángela spine , 4 or 5 view No observ ation record ed. [facility] [address] [place], [address], 04/21/2024 09:26:52 05/16/19 25 05/16/2024 XR, chest No observ ation record ed. [address], [place], [address], 05/20/2024 17:33:44 Result Notes None recorded. Problems Name Problem SNOMED Code Status Onset Date Resolution Date Notes Provider Name and Address Organization Details Recorded Time Type 2 diabetes mellitus without complication 447981511 Active 2023 Sergey Wilson MD Attn: Francisco yanez,[address] [facility], [place], [address], [facility] 22:18:13 Upper respiratory infection 55259975 Active 2023 Sergey Wilson MD Attn: Francisco yanez,[address] [facility], [place], [address], [place] [facility] 4 22:18:15 Essential hypertension 08624973 Active 2023 Sergey Wilson MD Attn: Francisco yanez,[address] [facility], [place], [address], [place] [facility] 4 22:18:16 Hyperlipidemia 23726267 Active 2023 Sergey Wilson MD Attn: Francisco yanez,[address], [place], [address], [facility] - [facility] 4 22:18:18 Mixed anxiety and depressive disorder 959524420 Active 2023 Sergey Wilson MD Attn: Francisco yanez,[address], [place], [address], [facility] - [facility] 4 22:18:20 Vitamin D below reference range 834244485 Active 2023 Sergey Wilson MD Attn: Accountmiguel g,[address] [facility] [address], [place], [address], [facility] 4 22:18:21 Hypothyroidism 83078203 Active 2023 Sergey Wilson MD Attn: Francisco yanez,[address] [facility] [address], [place], [address], [facility] - [facility] 4 22:18:23 Notes:Some problems listed i n Documents: #[id number], #[id number] could not be added to this patient's chart. Please review these documents and add these problems to the patient's chart manually as needed. Problem Notes None recorded. Procedures Surgical History Date Name Laterality Status Provider Name and Address Organization Details Recorded Time Eye Surgery completed Thea Clark MA [facility] 08/03/2023 13:14:13 Pacemaker completed Thea Clark MA [facility] 08/03/2023 13:14:21 Imaging Results None recorded. Procedure Notes None recorded. Medical Equipment None Reported. Allergies No known drug allergies Medications Name Sig Start Date Stop Date Status Note LastModified by Organization Details LastModified Time cyclobenza mateo 10 mg tablet TAKE 1 TABLET BY MOUTH TWICE DAILY NEEDED active Not Available Not Available No t Available amoxicilli n 500 mg capsule TAKE 1 CAPSULE BY MOUTH THREE TIMES DAILY FOR 7 DAYS 02/04 completed Not Available Not Available Not Available furosemide 40 mg tablet TAKE 1 TABLET BY MOUTH EVERY DAY active Not Available Not Available No t Available doxycyclin e hyclate 100 mg capsule Take 1 capsule twice a day by oral route for 7 days. 2024 active Not Available Not Available Not Avai lable citalopram 40 mg tablet TAKE 1 TABLET BY MOUTH EVERY MORNING active Not Available Not Available No t Available enalapril maleate 5 mg tablet TAKE 1 TABLET BY MOUTH EVERY DAY active Not Available Not Available No t Available azithromyc in 250 mg tablet 05/02 completed Not Available Not Available Not Available flurbiprof en 0.03 % eye drops active Not Available Not Available No t Available ondansetro n HCl 4 mg tablet TAKE 1 TABLET BY MOUTH UP TO THREE TIMES DAILY NEEDED FOR NAUSEA OR VOMITING active Not Available Not Available No t Available acetaminop hen 300 mg-codeine 30 mg tablet TAKE 1 TABLET BY MOUTH THREE TIMES DAILY NEEDED FOR LUMBAR REGION active Not Available Not Available No t Available divalproex 500 mg tablet,del ayed release 11/05 completed Not Available Not Available Not Available glimepirid e 1 mg tablet TAKE 2 TABLETS BY MOUTH TWICE DAILY DIRECTED active Not Available Not Available No t Available levothyrox ine 88 mcg tablet TAKE 1 TABLET BY MOUTH EVERY DAY IN THE MORNING active Not Available Not Available No t Available amoxicilli n 875 mg tablet TAKE 1 TABLET BY MOUTH THREE TIMES DAILY FOR 7 DAYS 07/09 completed Not Available Not Available Not Available famotidine 20 mg tablet TAKE 1 TABLET BY MOUTH DAILY active Not Available Not Available No t Available prednisolo ne acetate 1 % eye drops,susp ension active Not Available Not Available Not Available ciprofloxa michelle 0.3 % eye drops active Not Available Not Available No t Available OneTouch Ultra Test strips USE TO TEST TWICE DAILY active Not Available Not Available No t Available nortriptyl ine 75 mg capsule TAKE 1 CAPSULE BY MOUTH TWICE DAILY active Not Available Not Available No t Available cephalexin 500 mg capsule Take 1 capsule 3 times a day by oral route for 10 days. active Not Available Not Available No t Available divalproex ER 500 mg tablet,ext ended release 24 hr TAKE 2 TABLETS BY MOUTH EVERY MORNING AND TAKE 1 TABLET AT NIGHT active Not Available Not Available No t Available omeprazole 20 mg capsule,de layed release TAKE ONE CAPSULE BY MOUTH DAILY BEFORE A MEAL active Not Available Not Available No t Available aspirin 81 mg chewable tablet CHEW AND SWALLOW 1 TABLET BY MOUTH EVERY DAY active Not Available Not Available No t Available montelukas t 10 mg tablet TAKE 1 TABLET BY MOUTH DAILY 2023 active Not Available Not Available Not Avai lable topiramate 200 mg tablet TAKE 1 TABLET BY MOUTH TWICE DAILY active Not Available Not Available No t Available ergocalcif michelle (vitamin D2) 1,250 mcg (50,000 unit) capsule TAKE 1 CAPSULE BY MOUTH EVERY WEEK 2024 active Not Available Not Available Not Avai lable levofloxac in 500 mg tablet TAKE 1 TABLET BY MOUTH EVERY 24 HOURS FOR 7 DAYS active Not Available Not Available No t Available albuterol sulfate HFA 90 mcg/actuat ion aerosol inhaler INHALE 2 PUFFS BY MOUTH EVERY 4 HOURS NEEDED active Not Available Not Available No t Available pioglitazo ne 30 mg tablet TAKE 1 TABLET BY MOUTH IN THE MORNING active Not Available Not Available No t Available nortriptyl ine 50 mg capsule TAKE 1 CAPSULE BY MOUTH EVERY DAY IN THE EVENING 02/04 completed Not Available Not Available Not Available rosuvastat in 40 mg tablet TAKE 1 TABLET BY MOUTH EVERY NIGHT AT BEDTIME active Not Available Not Available No t Available fenofibrat e 160 mg tablet TAKE 1 TABLET BY MOUTH DAILY active Not Available Not Available No t Available Januvia 50 mg tablet TAKE 1 TABLET BY MOUTH EVERY DAY IN THE MORNING active Not Available Not Available No t Available Vascepa 1 gram capsule active PLEASE SEND TO DR ANIKET DOUGHERTY\FL ESCIBER Not Available Not Available Not Available Jardiance 25 mg tablet TAKE 1 TABLET BY MOUTH DAILY active Not Available Not Available No t Available Incruse Ellipta 62.5 mcg/actuat ion powder for inhalation INHALE 1 PUFF BY MOUTH ONCE DAILY 02/04 completed Not Available Not Available Not Available OneTouch Ultra2 Meter TEST TWICE DAILY active Not Available Not Available No t Available OneTouch Delica Plus Lancet 33 gauge USE TO TEST TWICE DAILY active Not Available Not Available No t Available Paxlovid 300 mg (150 mg x 2)-100 mg tablets in a dose pack TK 2 NIRMATRE LVIR TS AND 1 RITONAVI R T TOGETHER PO BID FOR 5 DAYS TWICE DAILY FOR 5 DAYS 02/04 completed Not Available Not Available Not Available Vitals Date Recorded Body height Body mass index (BMI) Body weight Heart rate Oxygen saturation Oxygen saturation in Arterial blood by Pulse oximetry Systolic blood pressure Diastolic blood pressure Provider Name and Address Organization Details Last Updated DateTime 4 175.26 cm 35.1 kg/m2 465139. 62 g 91 /min 97 % 97 % 122 mm[Hg] 68 mm[Hg] Desire Alcazar [place] [facility] 16:20:37 Social History Question Answer Notes LastModified by Organizat ion Details LastModified Time Tobacco Smoking Status Former Smoker Thea Clark [place] null, [place] - [facility] 08/03/2023 13:12:29 Do You Have An Advance Directive? No Information n ot available 08/03/2023 What Is Your Level Of Alcohol Consumption? None Information not available 08/03/2023 Are You Blind Or Do You Have Difficulty Seeing? No Information n ot available 08/03/2023 What Is Your Level Of Caffeine Consumption? Moderate Information not available 08/03/2023 In The 14 Days Before Symptom Onset, Have You Had Close Contact With A Laboratory-confirm ed COVID-19 While That Case Was Ill? No Information n ot available 03/11/2024 In The 14 Days Before Symptom Onset, Have You Had Close Contact With A Person Who Is Under Investigation For COVID-19 While That Person Was Ill? No Information not available 03/11/2024 Have You Been To An Area Known To Be High Risk For COVID-19? No Information not available 03/11/2024 Are You Currently Employed? No Information not available 03/11/2024 Are You Deaf Or Do You Have Serious Difficulty Hearing? No Information not available 08/03/2023 What Type Of Diet Are You Following? REGULAR Information n ot available 08/03/2023 Are There Any Guns Present In Your Home? No Information not available 08/03/2023 What Was The Date Of Your Most Recent Tobacco Screening? 03/11/2024 Information not available 03/11/2024 What Is Your Current Pack Years? 20-29packyear s Information not available 08/03/2023 What Is Your Relationship Status? Single Information not available 08/03/2023 Do You Use Your Seat Belt Or Car Seat Routinely? Yes Information not available 08/03/2023 Do You Have Smoke And Carbon Monoxide Detectors In Your Home? Yes Information not available 08/03/2023 How Much Tobacco Do You Smoke? 2 PPD Information not available 08/03/2023 Do You Feel Stressed (tense, Restless, Nervous, Or Anxious, Or Unable To Sleep At Night)? [id number] Information not available 08/03/2023 Do You Use Any Illicit Or Recreational Drugs? No Information not available 08/03/2023 Do You Use Sunscreen Routinely? No Information not available 08/03/2023 Has Tobacco Cessation Counseling Been Provided? No Information not available 08/03/2023 How Many Years Have You Smoked Tobacco? 30 Information not available 08/03/2023 Do You Or Have You Ever Used Any Other Forms Of Tobacco Or Nicotine? No Information not available 08/03/2023 Sex: Male Functional Status Question Answer Note LastModified by Organization D etails LastModified Time Are you able to care for yourself? Yes Information not available 08/03/2023 What is your exercise level? Moderate Information not available 08/03/2023 Mental Status None recorded. Family History Nothing Reported. Medical History Condition Response Coronary Artery Disease N Other N Atrial Fibrillation N High Blood Pressure N Depression Y COPD N Blood Clots N Anxiety Disorder N Muscle, Joint, or Bone Problems N Acid Reflux (GERD) N Cancer N Stroke N High Cholesterol N Liver Disease N Headaches Y Kidney or Bladder Problems N Thyroid Problems N GI Problems N Skin Problems N Anemia N Heart Attack (NV) N Diabetes Y Seizures/Epilepsy Y Asthma N Allergies N Hepatitis N Osteoporosis N Heart Failure N Immunizations Vaccine Type Date Status Note Provider Nam e and Address Organization Details Recorded Time zoster recombinant 3 completed Marsha Miller [place], [place] [facility] 11/06/2023 12:22:11 zoster recombinant 3 completed NIMA Johnson, [place] - [facility] 11/06/2023 12:22:11 COVID-19, mRNA, LNP-S, PF, 100 mcg/0.5mL dose or 50 mcg/0.25mL dose 1 completed Marsha Miller [place], [place] [facility] 11/06/2023 12:22:11 COVID-19, mRNA, LNP-S, PF, 100 mcg/0.5mL dose or 50 mcg/0.25mL dose 1 completed NIMA [place], [place] [facility] 11/06/2023 12:22:11 COVID-19, mRNA, LNP-S, PF, 100 mcg/0.5mL dose or 50 mcg/0.25mL dose 1 completed NIMA [place], [place] [facility] 11/06/2023 12:22:11 Pneumococcal conjugate PCV20, polysaccharide [id number] conjugate, adjuvant, PF 3 completed NIMA [place] [facility] 11/06/2023 12:22:11 Pneumococcal conjugate PCV 13 5 completed NIMA [place] [facility] 11/06/2023 12:22:11 Influenza, split virus, trivalent, preservative 1 completed NIMA [place] [facility] 11/06/2023 12:22:11 Influenza, split virus, trivalent, PF 5 completed NIMA [place] [facility] 11/06/2023 12:22:11 Influenza, split virus, trivalent, PF 4 completed [place]IMA [place] [facility] 11/06/2023 12:22:11 influenza, seasonal, intradermal, preservative free 3 completed NIMA [place] [facility] 11/06/2023 12:22:11 Influenza, split virus, quadrivalent, PF 0 completed NIMA [place] [facility] 11/06/2023 12:22:11 Influenza, split virus, quadrivalent, PF 0 [place] [facility] 11/06/2023 12:22:11 Influenza, split virus, quadrivalent, PF 8 completed [place] [facility] 11/06/2023 12:22:11 Influenza, split virus, quadrivalent, PF 2 completed NIMA [place] [facility] 11/06/2023 12:22:11 Pneumococcal Conjugate, unspecified formulation 3 completed NIMA [place], [place] [facility] 11/06/2023 12:22:11 Past Encounters Encounter ID Performer Location Encounter Start Date Encounter Closed Date Diagnosis/Indication Diagnosis SNOMED-CT Code Diagnosis ICD10 Code Diagnosis Note [id number] Sergey Wilson MD [facility] (Adult Med) [address] [place] [address] 04/23/2024 15:24:08 04/23/2024 16:42:58 Cellulitis of lower limb 562908121 L03.119 Health Concerns Section Related Observation LastModified by Organization Detai ls LastModified Time None Recorded Concern Status LastModified by Organization Details LastModified Time None Recorded Payers Encounter Date Sequence Insurance Name Policy Number Policy Álvarez Covered Member ID Álvarez Member ID Guarantor Name 04/23/2024 1 [facility] (MEDICARE REPLACEMENT/AD VANTAGE - HMO) [id number] Dennis Branch [id number] Dennis Branch 04/23/2024 2 [place]SECOND[place]AN WHEN MEDICARE OR MEDICARE REPLACEMENT PRIMARY) Dennis Branch [id number] Dennis Branch Notes Date Note Type Note Provider Name and Address Organization Details Recorded Time 04/23/2024 text/html bumped his left leg on the bedpost denies going to [place] no fever no chills draining a minimally Sergey Wilson MD Attn: Accounting,[address] [place], [address], [place] [facility] 04/26/2024 15:00:55
--- OUTSIDE RECORDS SUMMARY | 2024-05-24 02:00 | XMS_ITS | Data Portability ---
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 Ceftin for his upper respiratory infection for 1 week. I like to see him back in a few weeks to make sure that he is doing fine. [email or web address] Not available 08/05/2023 22:22:08 11/06/2023 11/06/2023 his diagnosis an d assessment and plan and management of those diagnosis have been discussed all questions have been answered some amoxicillin for his URI with bacterial superinfection follow up with me in 3-4 months [email or web address] Not available 11/18/2023 20:29:01 02/05/2024 02/05/2024 his diagnosis an d assessment and plan and management of those diagnosis have been discussed.hyperte nsion no headache or dizziness obesity not losing weight dyslipidemia diet could be better. Hypothyroid no heat or cold intolerance GERD has been doing stable diabetes no hypoglycemia Follow up in Neurology advised to get appropriate immunizations follow up with me in 3 months [email or web address] Not available 03/02/2024 18:29:36 03/11/2024 03/11/2024 anuel-nadia montelongo get x-ray healthy lifestyle care instructions CMP lipid A1c follow up 2-3 months he still sees Neurology for his ongoing neurological issues [email or web address] Not available 03/11/2024 13:32:53 04/23/2024 04/23/2024 Keflex t.i.d. 50 0 mg 10 days he does not improve he will call back Not available 04/26/2024 15:00:38 Plan of Treatment Reminders Order Date Submit Date Provider Last Modified By Organization Details Last Modified Time Details Appointments ANY 15 2024 01:15P Katie Wilson MD Not available Not available Not available Lab None recorded. Referral None recorded. Procedures None recorded. Surgeries None recorded. Imaging XR, finger(s) 2023 [facility] ([facility]), [address] [place], [address], 03/11/2024 14:40:53 Medication Orders amoxicill in 500 mg capsule 2023 [place] [facility] #[id number], [address] [place], [place], [id number], 02/05/2024 10:45:04 cephalexi n 500 mg capsule 2023 024 [id number] [address] [place], [place], [id number], 04/23/2024 22:12:28 Patient TargetsNo targets recorded. Patient Instructions Encounter Date Encounter Id Patient Instructions Last Modified By Organization Details Last Modified Time 11/06/2023 [id number] A healthy lifestyle: care instructions [email or web address] Not available 11/06/2023 13:25:15 02/05/2024 [id number] A healthy lifestyle: care instructions [email or web address] Not available 03/02/2024 18:29:51 03/11/2024 [id number] A healthy lifestyle: care instructions [email or web address] Not available 03/11/2024 12:48:21 Reason for Referral None Reported. Results Created Date Observation Date Name Description Value Unit Range Abnormal Flag Note LastModifiedBy Organization Detail LastModifiedTime 09/12/1909/12/2023 CT, brain , w/o contr ast No observ ation record ed. [address] [facility] [address], [place], [address], 09/13/2023 09:47:28 10/11/1910/11/2023 CT, abdom en + pelvi s, w/ contr ast No observ ation record ed. [email or web address] [facility] [address], [place], [address], 10/15/2023 22:33:42 11/19/1901/21/2015 colon oscop y proce dure (PROC ) No observ ation record ed. [facility] Not Available 2023 15:56:51 02/04/20 24 02/04/2024 XR, chest No observ ation record ed. [email or web address] [facility] [address] [place], [address], 02/05/2024 10:58:15 02/04/20 24 02/04/2024 CT, head, w/o contr ast No observ ation record ed. [address] [place], [address], 02/05/2024 16:28:44 03/11/2003/11/2024 XR, finge r(s) No observ ation record ed. [facility] [address] [place], [address], 03/12/2024 12:49:50 03/24/20 24 03/24/2024 XR, chest No observ ation record ed. [facility] [address] [place], [address], 03/26/2024 10:32:09 03/24/20 24 03/24/2024 CT, head, w/o contr ast No observ ation record ed. [facility] [address] [place], [address], 03/26/2024 10:32:49 04/17/20 24 04/17/2024 XR, finge r(s) No observ ation record ed. [facility] [address] [place], [address], 04/20/2024 22:27:04 04/17/20 24 04/17/2024 XR, hip + pelvi s, bilat eral, 3 or 4 view No observ ation record ed. [facility] [address] [place], [address], 04/21/2024 09:25:59 04/17/20 24 04/17/2024 XR, cervi ángela spine , 4 or 5 view No observ ation record ed. [facility] [address] [place], [address], 04/21/2024 09:26:52 05/16/19 25 05/16/2024 XR, chest No observ ation record ed. [address] [facility] [address], [place], [address], 05/20/2024 17:33:44 Result Notes None recorded. Problems Name Problem SNOMED Code Status Onset Date Resolution Date Notes Provider Name and Address Organization Details Recorded Time Type 2 diabetes mellitus without complication 926791608 Active 2023 Mina Wilson MD Attn: Vipinin g,[address] [facility], [place], [address], [place] [facility] 4 22:18:13 Upper respiratory infection 10731773 Active 2023 Mina Wilson MD Attn: Vipinin g,[address] [facility], [place], [address], [place] [facility] 4 22:18:15 Essential hypertension 10602341 Active 2023 Mina Wilson MD Attn: Vipinin g,[address] [facility], [place], [address], [place] [facility] 4 22:18:16 Hyperlipidemia 81664247 Active 2023 Mina Wilson MD Attn: Accountin g,[address], [place], [address], [place] [facility] 4 22:18:18 Mixed anxiety and depressive disorder 374487950 Active 2023 Mina Wilson MD Attn: Francisco yanez,[address], [place], [address], [facility] - [facility] 22:18:20 Vitamin D below reference range 433115071 Active 2023 Mina Wilson MD Attn: Francisco yanez,[address], [place], [address], [facility] - [facility] 4 22:18:21 Hypothyroidism 68334286 Active 2023 Mina Wilson MD Attn: Francisco yanez,[address], [place], [address], [facility] - [facility] 22:18:23 Notes:Some problems listed i n Documents: #[id number], #[id number] could not be added to this patient's chart. Please review these documents and add these problems to the patient's chart manually as needed. Problem Notes None recorded. Procedures Surgical History Date Name Laterality Status Provider Name and Address Organization Details Recorded Time Eye Surgery completed Thea Clark MA [facility] 08/03/2023 13:14:13 Pacemaker completed Thea Clark MA [facility] 08/03/2023 13:14:21 Imaging Results Imaging Date Name Status LastModified by Organiz ation Details LastModified Time 09/12/2023 CT, brain, w/o contrast completed [address], [address], 09/13/2023 09:47:28 10/11/2023 CT, abdomen + pelvis, w/ contrast completed [email or web address] [address] [place] [address], [address], 10/15/2023 22:33:42 01/21/2015 colonoscopy procedure (PROC) completed [facility] Information not available 11/19/2023 15:56:51 02/04/2024 XR, chest completed [email or web address] [place] [address], [address], 02/05/2024 10:58:15 02/04/2024 CT, head, w/o contrast completed [address] [place], [address], 02/05/2024 16:28:44 03/11/2024 XR, finger(s) completed [facility] [address] [place], [address], 03/12/2024 12:49:50 03/24/2024 XR, chest completed [facility] [address] [place], [address], 03/26/2024 10:32:09 03/24/2024 CT, head, w/o contrast completed [facility] [address] [place], [address], 03/26/2024 10:32:49 04/17/2024 XR, finger(s) completed [facility] [address] [place], [address], 04/20/2024 22:27:04 04/17/2024 XR, hip + pelvis, bilateral, 3 or 4 view completed [facility] [address] [place], [address], 04/21/2024 09:25:59 04/17/2024 XR, cervical spine, 4 or 5 view completed [facility] [address] [place], [address], 04/21/2024 09:26:52 05/16/2024 XR, chest completed [place] [address], [place], [address], 05/20/2024 17:33:44 Procedure Notes None recorded. Medical Equipment None [...] capsule active PLEASE SEND TO DR ANIKET DOUGHERTY\KS ESCIBER Not Available Not Available Not Available [...] Available Not Available Vitals Date Recorded Body weight Body mass index (BMI) Body height Oxygen saturation Oxygen saturation in Arterial blood by Pulse oximetry Heart rate Systolic blood pressure Diastolic blood pressure Provider Name and Address Organization Details Last Updated DateTime 4 040349. 25 g 34 kg/m2 175.26 cm 97 % 97 % 85 /min 94 mm[Hg] 56 mm[Hg] Thea Clark MA [facility] 4 13:20:00 Date Recorded Body height Body mass index (BMI) Body weight Heart rate Oxygen saturation Oxygen saturation in Arterial blood by Pulse oximetry Systolic blood pressure Diastolic blood pressure Provider Name and Address Organization Details Last Updated DateTime 4 175.26 cm 32.9 kg/m2 296862. 1 g 78 /min 96 % 96 % 105 mm[Hg] 70 mm[Hg] Thea Clark MA [facility] 4 11:37:36 Date Recorded Body height Body mass index (BMI) Body weight Oxygen saturation Oxygen saturation in Arterial blood by Pulse oximetry Heart rate Systolic blood pressure Diastolic blood pressure Provider Name and Address Organization Details Last Updated DateTime 4 175.26 cm 33.2 kg/m2 255231. 28 g 97 % 97 % 81 /min 108 mm[Hg] 66 mm[Hg] Jesus Mcclain MA [facility] 4 10:50:37 Date Recorded Body height Body mass index (BMI) Body weight Heart rate Oxygen saturation Oxygen saturation in Arterial blood by Pulse oximetry Systolic blood pressure Diastolic blood pressure Provider Name and Address Organization Details Last Updated DateTime 4 175.26 cm 34.2 kg/m2 667859. 71 g 85 /min 97 % 97 % 112 mm[Hg] 64 mm[Hg] Desire Alcazar MA [facility] 4 11:16:13 Date Recorded Body height Body mass index (BMI) Body weight Heart rate Oxygen saturation Oxygen saturation in Arterial blood by Pulse oximetry Systolic blood pressure Diastolic blood pressure Provider Name and Address Organization Details Last Updated DateTime 4 175.26 cm 35.1 kg/m2 677436. 62 g 91 /min 97 % 97 % 122 mm[Hg] 68 mm[Hg] Desire Alcazar [place] [facility] 16:20:37 Social History Question Answer Notes LastModified by Organizat ion Details LastModified Time Tobacco Smoking Status Former Smoker [place] NIMA Clark null, [place] - [facility] 08/03/2023 13:12:29 Do You Have [...] Anxious, Or Unable To Sleep At Night)? [id number] Information not available 08/03/2023 Do You Use [...] Atrial Fibrillation N High Blood Pressure N Thyroid Problems N Kidney or Bladder Problems N Depression Y COPD N Blood Clots N GI Problems N Skin Problems N Anemia N Heart Attack ([place]) N Diabetes Y Anxiety Disorder N Muscle, Joint, or Bone Problems N Seizures/Epilepsy Y Acid Reflux (GERD) N Cancer N Stroke N Allergies N Asthma N High Cholesterol N Hepatitis N Liver Disease N Headaches Y Osteoporosis N Heart Failure N Immunizations Vaccine Type Date Status Note Provider Nam e and Address Organization Details Recorded Time zoster recombinant 3 completed Marsha Miller [place], [place] [facility] 11/06/2023 12:22:11 zoster recombinant 3 completed Marsha Miller MA [...] [place], [place] [facility] 11/06/2023 12:22:11 Pneumococcal conjugate PCV20, polysaccharide [id number] conjugate, adjuvant, PF 3 completed Marsha Miller [place], [place] [facility] 11/06/2023 12:22:11 Pneumococcal conjugate PCV 13 5 completed NIMA [place] [facility] 11/06/2023 12:22:11 Influenza, split virus, trivalent, preservative 1 completed NIMA [place] [facility] 11/06/2023 12:22:11 Influenza, split virus, trivalent, PF 5 completed Marsha Miller [place], [place] [facility] 11/06/2023 12:22:11 Influenza, split virus, trivalent, PF 4 completed NIMA [place] [facility] 11/06/2023 12:22:11 influenza, seasonal, intradermal, preservative free 3 completed NIMA [place] [facility] 11/06/2023 12:22:11 Influenza, split virus, quadrivalent, PF 0 completed Marsha [place] [facility] 11/06/2023 12:22:11 Influenza, split virus, quadrivalent, PF 0 completed [place]IMA [place] [facility] 11/06/2023 12:22:11 Influenza, split virus, quadrivalent, PF 8 completed [place]IMA [place] [facility] 11/06/2023 12:22:11 Influenza, split virus, quadrivalent, PF 2 completed [place]IMA [place] [facility] 11/06/2023 12:22:11 Pneumococcal Conjugate, unspecified formulation 3 completed Marsha Miller MA [place], [place] - [place] 11/06/2023 12:22:11 Past Encounters Encounter ID Performer Location Encounter Start Date Encounter Closed Date Diagnosis/Indication Diagnosis SNOMED-CT Code Diagnosis ICD10 Code Diagnosis Note [id number] [facility] [address] [place] [phone] 08/03/2023 12:10:41 08/03/2023 13:51:25 Type 2 diabetes mellitus without complication 060070033 E11.9 Upper resp iratory infection 66637935 J06.9 Essential hypertension 35287291 I10 Hyperlipidemia 17392120 E78.5 Mixed anxi ety and depressive disorder 537064194 F41.8 Vitamin D below reference range 260253220 E55.9 Hypothyroidism 95479657 E03.9 Gastroesop hageal reflux disease without esophagitis 175920916 K21.9 [id number] MD Judi Dye (Adult Med) [address] [place] [phone] 11/06/2023 10:30:44 11/06/2023 12:32:13 Obesity 307867102 E66.8 Upper resp iratory infection 83425994 J06.9 Essential hypertension 33715434 I10 Hyperlipidemia 74078406 E78.5 Hypothyroidism 66906502 E03.9 Type 2 darren betes mellitus without complication 709861531 E11.9 [id number] MD Judi Dye (Adult Med) [address] [place] [phone] 02/05/2024 10:20:13 02/05/2024 12:16:58 Obesity 578035498 E66.8 Essential hypertension 43241643 I10 Hyperlipidemia 70295219 E78.5 Hypothyroidism 68969881 E03.9 Type 2 darren betes mellitus without complication 669931148 E11.9 [id number] MD Judi Dye (Adult Med) [address] [place] [phone] 03/11/2024 10:54:33 03/11/2024 12:11:15 Obesity 058606531 E66.9 Pain in fi nger of right hand 6128176655 72729 M79.644 Hypothyroidism 74252660 E03.9 Hyperlipidemia 21401038 E78.5 Essential hypertension 94874730 I10 [id number] MD Judi Dye (Adult Med) [address] [place] [phone] 04/23/2024 15:24:08 04/23/2024 16:42:58 Cellulitis of lower limb 886869139 L03.119 Health Concerns Section Related Observation LastModified by Organization Detai ls LastModified Time None Recorded Concern Status LastModified by Organization Details LastModified Time None Recorded Advance Directives Directive N: Payers Encounter Date Sequence Insurance Name Policy Number Policy Álvarez Covered Member ID Álvarez Member ID Guarantor Name 08/03/2023 1 [facility] (MEDICARE REPLACEMENT/AD VANTAGE - HMO) [id number] Dennis Branch [id number] Dennis Branch 08/03/2023 2 [place] [facility] A[facility] Dennis Branch [id number] Dennis Branch 11/06/2023 1 [facility] (MEDICARE REPLACEMENT/AD VANTAGE - HMO) [id number] Dennis Branch [id number] Dennis Branch 11/06/2023 2 [place] [facility] Dennis Branch [id number] Dennis Branch 02/05/2024 1 [facility] (MEDICARE REPLACEMENT/AD VANTAGE - HMO) [id number] Dennis Branch [id number] Dennis Branch 02/05/2024 2 [place]ICARE REPLACEMENT PRIMARY) Dennis Branch [id number] Dennis Branch 03/11/2024 1 [facility] (MEDICARE REPLACEMENT/AD VANTAGE - HMO) [id number] Dennis Branch [id number] Dennis Branch 03/11/2024 2 [place]ICARE REPLACEMENT PRIMARY) Dennis Branch [id number] Dennis Branhc 04/23/2024 1 [facility] (MEDICARE REPLACEMENT/AD VANTAGE - HMO) [id number] Dennis Branch [id number] Dennis Branch 04/23/2024 2 [place] OR [place]IC[place] REPLACEMENT [place]IMARY) Dennis Branch [id number] Dennis Branch Notes Date Note Type Note Provider Name and Address Organization Details Recorded Time 08/03/2023 text/html Hypertension no headache or dizziness diabetes no polyphagia polydipsia hyperlipidemia says he tries to follow a low-fat diet hypothyroid denies heat or cold intolerance depression and anxiety his neurologist moved out of the area who is given him nortriptyline 75 twice daily he would like me to fill that till he can see a different specialist. A little bit of yellow sputum and cough. No shortness of breath or fever. Recently had heart catheterization in anticipation of a foot surgery states that his heart catheterization did not show any blockages that had to be intervened upon. Mina Wilson MD Attn: Accounting, [address] [place], [address], [facility] 08/05/2023 22:22:53 11/06/2023 text/html Hypertension no headache or dizziness diabetes no polyphagia polydipsia hyperlipidemia says he tries to follow a low-fat diet hypothyroid denies heat or cold intolerance depression and anxiety appear to be stable A little bit of yellow sputum and cough. No shortness of breath or fever. Recently had heart catheterization in anticipation of a foot surgery states that his heart catheterization did not show any blockages that had to be intervened upon. feels like he has got a sinus infection yellow nasal discharge little bit of cough Mina Wilson MD Attn: Accounting, [address] [facility], [place], [address], [place] [facility] 11/18/2023 20:29:18 02/05/2024 text/html he was in an RADHA yesterday legs started shaking went to the emergency room he is following up with Neurology they [facility] Mina Wilson MD Attn: Accounting, [address] [facility], [place], [address], [place] [facility] 03/02/2024 18:29:53 03/11/2024 text/html 1. Diabetes does not take his sugars regularly. 2. Anxiety seems to be stable. Three hypothyroid no heat or cold intolerance. 4. Fell hurt his right middle finger the other day hard to bed. No numbness or tingling or loss of function just painful. 5. Hypertension no headache no dizziness Mina Wilson MD Attn: Accounting,[address] [facility], [place], [address], [facility] - [facility] 03/11/2024 13:33:13 04/23/2024 text/html bumped his left leg on the bedpost denies going to little open area no fever no chills draining a minimally Mina Wilson MD Attn: Accounting[address] [facility], [place], [address], [facility] 04/26/2024 15:00:55
--- OUTSIDE RECORDS SUMMARY | 2024-05-24 02:00 | XMS_ITS | Continuity of Care Document ---
[facility] Address [address] [place] [address] Care Team Providers Care Sole Skiver Name Role Phone MINA WILSON Primary Care Provider Unavailabl e Assessment Encounter Date Assessment Date Assessment LastModified by Organization Details LastModified Time 03/11/2024 03/11/2024 anuel-tape finger get x-ray healthy lifestyle care instructions CMP lipid A1c follow up 2-3 months he still sees Neurology for his ongoing neurological issues Not available 03/11/2024 13:32:53 Plan of Treatment Reminders Order Date Submit Date Provider Last Modified By Organization Details Last Modified Time Details Appointments ANY 15 025 01:15PM Mina Wilson MD Not available Not available Not available Lab None record ed. Referral None record ed. Procedures None record ed. Surgeries None record ed. Imaging XR, finger (s) 024 03/11/20 [facility] ([facility]), [address] [place], [address], 03/11/2024 14:40:53 Medication Orders None record ed. Patient TargetsNo targets recorded. Patient Instructions Encounter Date Encounter Id Patient Instructions Last Modified By Organization Details Last Modified Time 03/11/2024 [id number] A healthy lifestyle: care instructions [email or web address] Not available 03/11/2024 12:48:21 Reason for Referral None Reported. Results Created Date Observation Date Name Description Value Unit Range Abnormal Flag Note LastModifiedBy Organization Detail LastModifiedTime 03/11/2003/11/2024 XR, finge r(s) No observ ation record ed. [facility] [address] [place], [address], 03/12/2024 12:49:50 03/24/20 24 03/24/2024 XR, chest No observ ation record ed. [facility] [address] [place], [address], 03/26/2024 10:32:09 03/24/20 24 03/24/2024 CT, head, w/o contr ast No observ ation record ed. [facility] [address] [place], [address], 03/26/2024 10:32:49 04/17/20 24 04/17/2024 XR, finge r(s) No observ ation record ed. [facility] [address] [place], [address], 04/20/2024 22:27:04 04/17/20 24 04/17/2024 XR, hip + pelvi s, bilat eral, 3 or 4 view No observ ation record ed. [facility] [address] [place], [address], 04/21/2024 09:25:59 04/17/20 24 04/17/2024 XR, cervi ángela spine , 4 or 5 view No observ ation record ed. [facility] [address] [place], [address], 04/21/2024 09:26:52 05/16/19 25 05/16/2024 XR, chest No observ ation record ed. [email or web address] [address], [place], [address], 05/20/2024 17:33:44 Result Notes None recorded. Problems Name Problem SNOMED Code Status Onset Date Resolution Date Notes Provider Name and Address Organization Details Recorded Time Type 2 diabetes mellitus without complication 044384153 Active 2023 Mina Wilson MD Attn: Francicso yanez,[address] [facility], [place], [address], [facility], [place] 22:18:13 Upper respiratory infection 50775127 Active 2023 Mina Wilson MD Attn: Francisco yanez,[address], [place], [address], [place] - [facility] 4 22:18:15 Essential hypertension 25832290 Active 2023 Mina Wilson MD Attn: Francisco yanez,[address], [place], [address], [place] [facility] 4 22:18:16 Hyperlipidemia 59556328 Active 2023 Mina Wilson MD Attn: Francisco yanez,[address], [place], [address], [place] [facility] 4 22:18:18 Mixed anxiety and depressive disorder 117089189 Active 2023 Mina Wilson MD Attn: Francisco yanez,[address], [place], [place], [address] [place] [address], [place] - [facility] 4 22:18:20 Vitamin D below reference range 842366486 Active 2023 Mina Wilson MD Attn: Francisco yanez,[address], [place], [address], [place] [facility] 4 22:18:21 Hypothyroidism 77684786 Active 2023 Mina Wilson MD Attn: Francisco yanez,[address], [place], [address], [place] [facility] 22:18:23 Notes:Some problems listed i n Documents: #[id number], #[id number] could not be added to this patient's chart. Please review these documents and add these problems to the patient's chart manually as needed. Problem Notes None recorded. Procedures Surgical History Date Name Laterality Status Provider Name and Address Organization Details Recorded Time Eye Surgery completed Thea Clark MA [facility] 08/03/2023 13:14:13 Pacemaker completed Thea Clark MA [facility] 08/03/2023 13:14:21 Imaging Results None recorded. Procedure [...] capsule active PLEASE SEND TO DR ANIKET DOUGHERTY\[place] [facility] Not Available Not Available Not Available [...] Updated DateTime 4 175.26 cm 34.2 kg/m2 387797. 71 g 85 /min 97 % 97 % 112 mm[Hg] 64 mm[Hg] Desire Alcazar [place] [facility] 4 11:16:13 Social History Question Answer Notes LastModified by Organizat ion Details LastModified Time Tobacco Smoking Status Former Smoker Thea Clark MA [facility], [place] - [facility] 08/03/2023 13:12:29 Do You Have An Advance [...] 03/11/2024 What Is Your Current Pack Years? 20-29pacarl s Information not available 08/03/2023 What Is [...] Anxious, Or Unable To Sleep At Night)? NV4525-5 Information not available 08/03/2023 Do You Use [...] Skin Problems N Anemia N Heart Attack (CA) N Diabetes Y Anxiety Disorder N Muscle, Joint, or Bone Problems N Seizures/Epilepsy Y Acid Reflux (GERD) N Cancer N Stroke N Allergies N Asthma N High Cholesterol N Hepatitis N Liver Disease N Headaches Y Osteoporosis N Heart Failure N Immunizations Vaccine Type Date Status Note Provider Chance rincon and Address Organization Details Recorded Time zoster recombinant 3 completed NIMA [place], [place] - [facility] 11/06/2023 12:22:11 zoster recombinant [...] [facility] 11/06/2023 12:22:11 Pneumococcal conjugate PCV20, polysaccharide [id number] conjugate, adjuvant, PF 3 completed NIMA Johnson, [...] virus, quadrivalent, PF 0 completed Marsha Miller [facility], [place] [facility] 11/06/2023 12:22:11 Influenza, split virus, quadrivalent, PF 0 completed Marsha Vandagayle [facility] [facility] 11/06/2023 12:22:11 Influenza, split virus, quadrivalent, PF 8 completed Marsha Miller [facility] [place], [place] [facility] 11/06/2023 12:22:11 Influenza, split virus, quadrivalent, PF 2 completed Marsha Miller [facility] [place] [facility] 11/06/2023 12:22:11 Pneumococcal Conjugate, unspecified formulation 3 completed Marsha Miller [facility] [place] [facility] 11/06/2023 12:22:11 Past Encounters Encounter ID Performer Location Encounter Start Date Encounter Closed Date Diagnosis/Indication Diagnosis SNOMED-CT Code Diagnosis ICD10 Code Diagnosis Note [id number] Mina Wilson MD [facility] (Adult Med) [address] [place] [id number] 03/11/2024 10:54:33 03/11/2024 12:11:15 Obesity 215854928 E66.9 Pain in fi nger of right hand 8824097403 84205 M79.644 Hypothyroidism 36682611 E03.9 Hyperlipidemia 62490223 E78.5 Essential hypertension 62457926 I10 Health Concerns Section Related Observation LastModified by Organization Detai ls LastModified Time None Recorded Concern Status LastModified by Organization Details LastModified Time None Recorded Payers Encounter Date Sequence Insurance Name Policy Number Policy Álvarez Covered Member ID Álvarez Member ID Guarantor Name 03/11/2024 1 [facility] (MEDICARE REPLACEMENT/AD VANTAGE - HMO) [id number] [address] [id number] [place] 03/11/2024 2 [place] (SECONDARY PLAN WHEN MEDICARE OR MEDICARE REPLACEMENT PRIMARY) [place] [id number] [place] Notes Date Note Type Note Provider Name and Address Organization Details Recorded Time 03/11/2024 text/html 1. Diabetes does not take his sugars regularly. 2. Anxiety seems to be stable. Three hypothyroid no heat or cold intolerance. 4. Fell hurt his right middle finger the other day hard to bed. No numbness or tingling or loss of function just painful. 5. Hypertension no headache no dizziness Mina Wilson MD Attn: Accounting,[address] , [place], [address], [facility] 03/11/2024 13:33:13
--- OUTSIDE RECORDS SUMMARY | 2024-05-24 02:00 | XMS_ITS ---
Author Name Jeremias JAYTaylorbethel masha Address Unknown Phone tel: Organization Unknown Address Unknown Phone tel: Care Team Providers Care Make Ready Mechanic Name Role Phone Mahognay Mcdowell NP Primary Care Provider tel: Shannen Horne Primary Care Provider tel: ALLERGIES, ADVERSE REACTIONS Data in this section may be excluded or not available. ASSESSMENTS Data in this section may be excluded or not available. SOCIAL HISTORY Description Effective Dates Sex M (Male) VITAL SIGNS Type Value Date Height (Code: 8302-2 ) 70 ( [in_i] ) October 23, 2022 Weight (Code: 46385-8 ) 232 ( [lb_av] ) October BP (Systolic) (Code: 8480-6 ) 106 ( mm[Hg] ) J 2022 BP (Diastolic) (Code: 8462-4 ) 68 ( mm[Hg] ) October 23, 2022 Pulse (Code: 8867-4 ) 84 ( /min ) October 23 Oxygen Saturation (Code: 43133-1 ) 97 ( % ) October 23, 2022 Inhaled Oxygen Concentration (Code: 3150-0 ) 21 ( % ) October 23, 2022 BMI (Code: 47097-6 ) 33.3 ( kg/m2 ) October 23 023 Temperature (Code: 8310-5 ) 97.5 ( [degF] ) Earle 2022 Respiration (Code: 9279-1 ) 31 ( /min ) October 23, 2022 PROBLEMS Data in this section may be excluded or not available. FUNCTIONAL STATUS Functional Condition Date Status Feeding: Independent October 23, 2022 Active Bathing: Independent (or in shower) October 23 Active Grooming: Independent face/h air/teeth/ shaving (implements provided) October 23, 2022 Active Dressing: Independent (including buttons, zips, laces, etc.) October 23, 2022 Active Bowels: Continent October 23, 2022 Active Bladder: Continent October 23, 2022 Active Toilet use: Independent (on and off, dressing, w iping) October 23, 2022 Active Transfers (bed to chair and back): Independent J 2022 Active Mobility (on level surfaces) : Independent (but may use any aid; for example, stick) >50 yards October 23, 2022 Active Stairs: Independent October 23, 2022 Active Total score: 100 October 23, 2022 Active COGNITIVE STATUS Condition Date Status Normal October 23, 2022 Active Patient Care Teams * Care Make Ready Mechanic Role on Team Date Mitchell. Mahogany Horne. Shannen
--- OUTSIDE RECORDS SUMMARY | 2024-05-24 02:00 | XMS_ITS ---
Author Name Louie Cabello NP Address Unknown Phone tel: Organization Unknown Address Unknown Phone tel: Care Team Providers Care Lan/Wan Engineer Name Role Phone Louie Cabello NP Primary Care Provider tel: Shannen Horne Primary Care Provider tel: ALLERGIES, ADVERSE REACTIONS Data in this section may be excluded or not available. ASSESSMENTS Data in this section may be excluded or not available. SOCIAL HISTORY Description Effective Dates Sex M (Male) VITAL SIGNS Type Value Date Height (Code: 8302-2 ) 70 ( [in_i] ) March 14, 2024 Weight (Code: 62938-6 ) 223 ( [lb_av] ) Novembe r 2023 BP (Systolic) (Code: 8480-6 ) 138 ( mm[Hg] ) No vember 2023 BP (Diastolic) (Code: 8462-4 ) 76 ( mm[Hg] ) N ovember 2023 Pulse (Code: 8867-4 ) 86 ( /min ) March Oxygen Saturation (Code: 95279-2 ) 97 ( % ) March 14, 2024 Inhaled Oxygen Concentration (Code: 3150-0 ) 21 ( % ) March 14, 2024 BMI (Code: 67247-7 ) 32 ( kg/m2 ) March Temperature (Code: 8310-5 ) 98.2 ( [degF] ) Nov ember 2023 Respiration (Code: 9279-1 ) 16 ( /min ) Nove mber 2023 Faces Pain Scale (Code: 00128-1 ) 0 - No Hurt ( ) March 14, 2024 PROBLEMS Data in this section may be excluded or not available. Patient Care Teams * Care Lan/Wan Engineer Role on Team Date Destiney. Louie Horne. Shannen
--- OUTSIDE RECORDS SUMMARY | 2024-05-24 02:00 | XMS_ITS ---
Author Name Destiney NP, [place] Address Unknown Phone tel: Organization Unknown Address Unknown Phone tel: Care Team Providers Care It Infrastructure Project Manager Name Role Phone Destiney JAY, Louie Primary Care Provider tel: Sharona Ojeda Primary Care Provider tel: ALLERGIES, ADVERSE REACTIONS Data in this section may be excluded or not available. ASSESSMENTS Data in this section may be excluded or not available. SOCIAL HISTORY Description Effective Dates Sex M (Male) VITAL SIGNS Type Value Date Height (Code: 8302-2 ) 70 ( [in_i] ) November 05, 2023 Weight (Code: 80900-0 ) 224 ( [lb_av] ) November 05, 2023 BP (Systolic) (Code: 8480-6 ) 116 ( mm[Hg] ) Ju ne 2023 BP (Diastolic) (Code: 8462-4 ) 60 ( mm[Hg] ) J une 2023 Pulse (Code: 8867-4 ) 82 ( /min ) November 04 Oxygen Saturation (Code: 35937-2 ) 98 ( % ) November 05, 2023 Inhaled Oxygen Concentration (Code: 3150-0 ) 21 ( % ) November 05, 2023 BMI (Code: 11467-2 ) 32.1 ( kg/m2 ) November 04 Temperature (Code: 8310-5 ) 98 ( [degF] ) Earle e 2023 Respiration (Code: 9279-1 ) 16 ( /min ) November 05, 2023 Faces Pain Scale (Code: 71186-7 ) 0 - No Hurt ( ) November 05, 2023 PROBLEMS Data in this section may be excluded or not available. FUNCTIONAL STATUS Functional Condition Date Status Feeding: Independent November 05, 2023 Active Bathing: Independent (or in shower) November 04 Active Grooming: Independent face/h air/teeth/ shaving (implements provided) November 05, 2023 Active Dressing: Independent (including buttons, zips, laces, etc.) November 05, 2023 Active Bowels: Continent November 05, 2023 Active Bladder: Continent November 05, 2023 Active Toilet use: Independent (on and off, dressing, w iping) November 05, 2023 Active Transfers (bed to chair and back): Independent J 2023 Active Mobility (on level surfaces) : Independent (but may use any aid; for example, stick) >50 yards November 05, 2023 Active Stairs: Independent November 05, 2023 Active Total score: 100 November 05, 2023 Active COGNITIVE STATUS Condition Date Status Normal November 05, 2023 Active Patient Care Teams * Care It Infrastructure Project Manager Role on Team Date Wessel. Louie Tabor
--- OUTSIDE RECORDS SUMMARY | 2024-05-24 02:00 | XMS_ITS ---
Author Name Jeremias JAY Rene flanagan Address Unknown Phone tel: Organization Unknown Address Unknown Phone tel: Care Team Providers Care Strategic Communications Manager Name Role Phone Mahogany Mcdowell NP Primary Care Provider tel: Shannen Horne Primary Care Provider tel: ALLERGIES, ADVERSE REACTIONS Data in this section may be excluded or not available. ASSESSMENTS Data in this section may be excluded or not available. SOCIAL HISTORY Description Effective Dates Sex M (Male) VITAL SIGNS Type Value Date Height (Code: 8302-2 ) 70 ( [in_i] ) May Weight (Code: 55538-8 ) 237 ( [lb_av] ) May 18, 2023 BP (Systolic) (Code: 8480-6 ) 130 ( mm[Hg] ) J anuary 2023 BP (Diastolic) (Code: 8462-4 ) 68 ( mm[Hg] ) May 18, 2023 Pulse (Code: 8867-4 ) 79 ( /min ) May 18, 2023 Oxygen Saturation (Code: 00966-1 ) 98 ( % ) May 18, 2023 Inhaled Oxygen Concentration (Code: 3150-0 ) 21 ( % ) May 18, 2023 BMI (Code: 02733-2 ) 34 ( kg/m2 ) May 18, 2023 Temperature (Code: 8310-5 ) 97.1 ( [degF] ) Demarco tono2023 PROBLEMS Data in this section may be excluded or not available. Patient Care Teams * Care Strategic Communications Manager Role on Team Date Jeremias. Mahogany Horne. Shannen
--- OUTSIDE RECORDS SUMMARY | 2024-05-24 02:01 | XMS_ITS | Continuity of Care Document ---
Author Organization [facility] Address [address] [place] [address] Care Team Providers Care Conservation Or Heritage Architect Name Role Phone Jeremias Mahogany Primary Care Provider Unavail able Shannen Horne Primary Care Provider Unavailabl e ALLERGIES, ADVERSE REACTIONS Data in this section may be excluded or not available. IMMUNIZATIONS Data in this section may be excluded or not available. MEDICATIONS Data in this section may be excluded or not available. MEDICATIONS ADMINISTERED DURING VISIT Data in this section may be excluded or not available. CARE PLAN Data in this section may be excluded or not available. ASSESSMENTS Data in this section may be excluded or not available. HEALTH CONCERNS Data in this section may be excluded or not available. GOALS Data in this section may be excluded or not available. PROCEDURES Data in this section may be excluded or not available. Implants Data in this section may be excluded or not available. SOCIAL HISTORY Element Description Date Comment Sex assigned at Male VITAL SIGNS Date Vital Result Comment 08/29/2022 Inhaled Oxygen Concentration 21.0 % N Temperature 97.2 [degF] N Oxygen Saturation 98 % N Respiratory Rate 18 /min N Heart Rate 78 /min N Blood Pressure Systolic 110 mm[Hg] N Blood Pressure Diastolic 70 mm[Hg] N Body Height 70 [in_i] N Body Weight 236 [lb_av] N Body Mass Index 33.9 kg/m2 N RESULTS Data in this section may be excluded or not available. PROBLEMS Data in this section may be excluded or not available. FUNCTIONAL STATUS Data in this section may be excluded or not available. COGNITIVE STATUS Data in this section may be excluded or not available. Patient Care Teams Care Team at 1965 [Care Team Information : at 1965, Care Team Information : at 1965]
--- OUTSIDE RECORDS SUMMARY | 2024-05-24 02:01 | XMS_ITS | Continuity of Care Document ---
Author Organization [facility] Address [address] [place] [address] Care Team Providers Care Veneer Jointer Name Role Phone Louie Cabello Primary Care Provider Unavailabl Sharona Martini Primary Care Provider Unavailtab rincon ALLERGIES, ADVERSE REACTIONS Data in this section [...] Male VITAL SIGNS Date Vital Result Comment 11/05/2023 Inhaled Oxygen Concentration 21.0 % N Faces Pain Scale 0.0 N Temperature 98 [degF] N Oxygen Saturation 98 % N Respiratory Rate 16 /min N Heart Rate 82 /min N Blood Pressure Systolic 116 mm[Hg] N Blood Pressure Diastolic 60 mm[Hg] N Body Height 70 [in_i] N Body Weight 224 [lb_av] N Body Mass Index 32.1 kg/m2 N RESULTS Data in this section may be excluded or not available. PROBLEMS Data in this section may be excluded or not available. FUNCTIONAL STATUS Category Condition Date Problem (Feeding: Independent) Feeding: Independ ent 11/05/2023 Problem (Bathing: Independen t (or in shower)) Bathing: Independent (or in shower) 11/05/2023 Problem (Grooming: Independe nt face/hair/teeth/ shaving (implements provided)) Grooming: Independent face/hair/teeth/ shaving (implements provided) 11/05/2023 Problem (Dressing: Independe nt (including buttons, zips, laces, etc.)) Dressing: Independent (including buttons, zips, laces, etc.) 11/05/2023 Problem (Bowels: Continent) Bowels: Continent Problem (Bladder: Continent) Bladder: Continent 11/05/2023 Problem (Toilet use: Indepen dent (on and off, dressing, wiping)) Toilet use: Independent (on and off, dressing, wiping) 11/05/2023 Problem (Transfers (bed to c hair and back): Independent) Transfers (bed to chair and back): Independent 11/05/2023 Problem (Mobility (on level surfaces): Independent (but may use any aid; for example, stick) >50 yards) Mobility (on level surfaces): Independent (but may use any aid; for example, stick) >50 yards 11/05/2023 Problem (Stairs: Independent) Stairs: Independen t 11/05/2023 Problem (Total score: 100) Total score: 100 10/13 COGNITIVE STATUS Category Condition Date Cognitive function Normal 11/05/2023 Patient Care Teams Care Team at 1965 [Care Team Information : at 1965, Care Team Information : at 1965]
--- OUTSIDE RECORDS SUMMARY | 2024-05-24 02:01 | XMS_ITS | Continuity of Care Document ---
Author Organization [employer] [facility] Address [address] [place] [address] Care Team Providers Care Patented Hogshead Assembler Name Role Phone JeremiasTaylorMahogany Primary Care Provider Unavail able Shannen Horne [...] Male VITAL SIGNS Date Vital Result Comment 10/23/2022 Inhaled Oxygen Concentration 21.0 % N Temperature 97.5 [degF] N Oxygen Saturation 97 % N Respiratory Rate 31 /min N Heart Rate 84 /min N Blood Pressure Systolic 106 mm[Hg] N Blood Pressure Diastolic 68 mm[Hg] N Body Height 70 [in_i] N Body Weight 232 [lb_av] N Body Mass Index 33.3 kg/m2 N RESULTS Data in this section [...] (Total score: 100) Total score: 100 10/12 COGNITIVE STATUS Category Condition Date Cognitive function Normal 10/23/2022 Patient Care Teams Care Team at 1965 [Care Team Information : at 1965, Care Team Information : at 1965]
--- OUTSIDE RECORDS SUMMARY | 2024-05-24 02:01 | XMS_ITS | Data Portability ---
Author Organization [facility] [place], Main Office Address [address] [place] [address] Care Team Providers Care Adjunct Teacher Name Role Phone YADIEL MINA Primary Care Provider [phone] MINA WILSON Referring Provider Assessment Encounter Date Assessment Date Assessment LastModified by Organization Details LastModified Time 03/06/2023 03/06/2023 This note is dictated and transcribed by [employer]. Tuft Machine Operator variances may occur. Despite proofreading, typographical errors may occur. [email or web address] Not available 03/06/2023 14:04:40 03/20/2023 03/20/2023 Amoxicillin goals for weight LDL A1c blood pressure been discussed follow-up 4 months Not available 03/23/2023 18:18:21 04/17/2023 04/17/2023 Continue current therapy follow-up 4 months [email or web address] Not available 04/21/2023 11:21:19 Plan of Treatment Reminders Order Date Submit Date Provider Last Modified By Organization Details Last Modified Time Details Appointments Establish ed Patient 15 2024 09:00A Katie Johnson DPM Not available Not available Not available Lab None recorded. Referral None recorded. Procedures None recorded. Surgeries None recorded. Imaging None recorded. Medication Orders amoxicill in 875 mg tablet 2022 023 [email or web address] [id number], [address] [place], [place], [id number], 04/17/2023 11:50:15 Patient TargetsNo targets recorded. Patient InstructionsNo instructions recorded. Reason for Referral None Reported. Results Created Date Observation Date Name Description Value Unit Range Abnormal Flag Note LastModifiedBy Organization Detail LastModifiedTime 04/13/2004/1304/13/2023 XR, chest No observ ation record ed. [facility] [address], [place], [address], 04/14/2023 08:12:21 07/20/19 24 07/20/2023 XR, chest No observ ation record ed. [email or web address] [facility] [address], [place], [address], 08/23/2023 14:10:21 03/11/20 24 03/11/2024 XR, thumb [facility] [address] [place] [address] Patien t Name: REJI BRANCH ion #: [id number] Sex: M : 1964 7 Dictat ed By: Mitch Beck Attend ing Physic robe: NAWAF WILSON Orderi ng Physic robe: NAWAF WILSON Exam Date: 2023 11:33 AM Exam Name: XR FINGER /THUMB RT Admitt ing Diagno sis(es ): CLINIC AL INDICA TION: pain right long finger TECHNI QUE: 3 XR FINGER / right Compar lida: None FINDIN GS/IMP RESSIO N: There is no eviden ce of acute fractu re or disloc ation. Diffus e soft-t issue swelli ng of the 3rd digit. Electr onical ly Signed by: Mitch Beck at 2023 13:36: 40 PM Page 1 [email or web address] [facility] ([facility]) [address] [place], [address], 03/12/2024 08:24:13 Result Notes None recorded. Problems Name Problem SNOMED Code Status Onset Date Resolution Date Notes Provider Name and Address Organization Details Recorded Time Inguinal pain 920892377 Active 2017 Not Available [facility] 3 09:29:02 Renewal of prescript ion Active 2021 Not Available [facility] 3 09:29:02 Pain in lower limb 30082071 Active Not Available [facility] 3 09:29:02 Celluliti s of right foot [id number] 769922 Active 2020 Not Available [facility] 3 09:29:02 Rectal hemorrhag e 00801687 Active Not Available [facility] 3 09:29:02 Mixed hyperchol esterolem ia and hypertrig lyceridem ia 434010117 Active 2019 Not Available [facility] 3 09:29:02 Hyperchol esterolem ia 38835212 Active Not Available [facility] 3 09:29:02 Chronic obstructi ve pulmonary disease 89350958 Active 2020 Not Available [facility] 3 09:29:02 Constipat ion 40053687 Active Not Available [facility] 3 09:29:02 Liver enzymes outside reference range 449155409 Active Not Available [facility] 3 09:29:02 Pain in finger 20309281 Active 2017 Not Available [facility] 3 09:29:02 Asthma 358056850 Active Not Available [facility] 3 09:29:02 Wrist joint pain 586306242 Active Not Available [facility] 3 09:29:02 Open wound of knee and/or leg and/or ankle Completed Not Available [facility] 3 01:04:41 Pain 24986484 Active Not Available [facility] 3 09:29:02 Syncope 432222844 Active 2020 Not Available [facility] 3 09:29:03 Vascular disorder 99594677 Active 2020 Not Available [facility] 3 09:29:03 Rib pain 576878022 Active 2021 Not Available [facility] 3 09:29:03 Pain in right foot 60516962010 9107 Active 2020 Not Available [facility] 3 09:29:03 Vitamin D deficienc y 35697490 Active Not Available [facility] 3 09:29:03 Sinusitis 94095098 Active 2021 Not Available [facility] 3 09:29:03 Dizziness 727829864 Active 2021 Not Available [facility] 3 09:29:03 Hypothyro idism 34301648 Active Not Available [facility] 3 09:29:03 Bunion 659095747 Active 2021 Not Available [facility] 3 09:29:03 Altered mental status 362169507 Active Not Available [facility] 3 09:29:03 Diabetic periphera l neuropath y 827722543 Active 2021 Not Available [facility] 3 09:29:03 Type 2 diabetes mellitus 86229621 Active 2018 Not Available [facility] 3 09:29:03 Uncontrol led type 2 diabetes mellitus 695346033 Active 2022 Not Available [facility] 3 09:29:03 Shoulder pain 16542037 Completed Not Available [facility] 3 01:04:42 Contusion of lower leg 14053559 Completed Not Available [facility] 3 01:04:42 Hayden of toe 44220662 Active 2021 Not Available [facility] 3 09:29:03 Atelectas is 01059829 Active 2021 Not Available [facility] 3 09:29:03 Respirato ry crackles 49564024 Active 2022 Not Available [facility] 3 09:29:03 Hip pain 50955313 Completed Not Available [facility] 3 01:04:43 Hip pain 38752934 Active 2020 Not Available [facility] 3 09:29:03 Upper respirato ry infection 31349229 Active 2022 Not Available [facility] 3 09:29:03 Acute upper respirato ry infection 30515474 Active 2021 Not Available [facility] 3 09:29:03 Essential hypertens ion 94707797 Active Not Available [facility] 3 09:29:03 Dyspnea on exertion 02014818 Active 2019 Not Available [facility] 3 09:29:03 Chronic cough 61400803 Active 2021 Not Available [facility] 3 09:29:03 Venous stasis 04196010 Active Not Available [facility] 3 09:29:03 Diabetes mellitus 39828915 Active Not Available [facility] 3 09:29:03 Pain in elbow 26046293 Active Not Available [facility] 3 09:29:03 Rectal pain 63102257 Completed Not Available [facility] 3 01:04:44 Obstructi ve sleep apnea syndrome 54321135 Active Not Available [facility] 3 09:29:03 Epigastri c pain 04078980 Active 2021 Not Available [facility] 3 09:29:03 Ex-smoker 6666769 Active 2019 Not Available [facility] 3 09:29:03 Pain in limb 18073387 Completed Not Available [facility] 3 01:04:45 Seizure 76556882 Active Not Available [facility] 3 09:29:03 Contusion of lower limb 66961235 Completed Not Available [facility] 3 01:04:45 Mixed hyperlipi demia 141755909 Active 2022 Not Available [facility] 3 09:29:02 Pain of left hip joint 49110757299 9100 Active 2022 Not Available [facility] 3 09:29:03 Well controlle d type 2 diabetes mellitus 947022693 Active 2022 Not Available [facility] 3 09:29:03 Low back pain 075725707 Active 2022 Not Available [facility] 3 09:29:03 Bunion 862828970 Active 2022 Turner Johnson, DPKatie [address] [facility], [place], [address] , [facility] 3 14:04:41 Notes:[facility] diagnostic sleep study 01/04/23 AHI = 5, supine AHI = 11 Medical History: Right temporal encephalomalacia Depression Obesity with mild OSAHS, AHI = 5, 01/04/23 Hypothyroidism Mixed hyperlipidemia Hypertension EF 53% LAFB T2DM with neuropathy MAXIMINO Left inguinal hernia PLMD Vit D deficiency Cervical spondylosis Lumbar DDD 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 Procedures Surgical History Date Name Laterality Status Provider Name and Address Organization Details Recorded Time 03/17/20 19 Cardiovascular Surgery completed Not Available [facility] 07/12/2022 00:57:11 06/29/19 17 Exc [id number] 1.1-2 completed Not Available [facility] 07/12/2022 00:57:11 01/22/20 15 Colonoscopy with biopsy completed Not Available [facility] 07/12/2022 00:57:11 04/26/20 14 Brain Surgery completed Not Available [facility] 07/12/2022 00:57:11 11/19/19 13 other completed Not Available [facility] 07/12/2022 00:57:11 Excisions - Specify completed Not Available [facility] 07/12/2022 00:57:11 Imaging Results Imaging Date Name Status LastModified by Organiz ation Details LastModified Time 04/13/2023 XR, chest completed [facility] [address] [facility] [address] [place] [address], [address], 04/14/2023 08:12:21 07/20/2023 [facility]R, [email or web address] [address] [facility] [address] [place] [address], [address], 08/23/2023 14:10:21 03/11/2024 XR, thumb completed [email or web address] [facility] ([facility]) [address] [place], [address], 03/12/2024 08:24:13 Procedure Notes None recorded. Medical Equipment None Reported. Allergies Allergen ID Allergen Name Allergen Category Reaction Reaction Severity Criticality Documentation Date Start Date Code Code System Note Provider Name and Address Organization Details Recorded Time 24633 phenobarb ital medicatio n Not available Not available Not available 07/19/2022 8134 RxNorm Arleth Wisdom null, [place] [facility] 3 10:49:17 Medications Name Sig Start Date Stop Date Status Note LastModified by Organization Details LastModified Time Prescript ion - Renewal active Not Available Not Available Not Available Miralax 17 gram oral powder packet Take 1 packet every day by oral route. 01/25 completed Not Available Not Available Not Available cyclobenz aprine 10 mg tablet TAKE 1 TABLET BY MOUTH TWICE DAILY NEEDED active Not Available Not Available No t Available amoxicill in 500 mg capsule TK 1 C PO TID FOR 7 DAYS active Not Available Not Available No t Available furosemid e 40 mg tablet TAKE 1 TABLET BY MOUTH EVERY DAY active Not Available Not Available No t Available atorvasta tin 40 mg tablet Take 1 tablet every day by oral route at bedtime for 30 days. 04/27 completed Not Available Not Available Not Available metformin 500 mg tablet TK 1 T PO BID WF 04/27 completed Not Available Not Available Not Available prednison e 10 mg tablet 30mg x 2 days, 20mg x 2 days, 10mg x 2 days active Not Available Not Available No t Available doxycycli ne hyclate 100 mg capsule Take 1 capsule twice a day by oral route for 7 days. active Not Available Not Available No t Available atorvasta tin 20 mg tablet TK 1 T PO D 04/26 completed Not Available Not Available Not Available enalapril maleate 10 mg tablet TK 1 T PO QAM 09/16 completed Not Available Not Available Not Available albuterol sulfate 2.5 mg/3 mL (0.083 %) solution for nebulizat ion Inhale 3 mL 3 times a day by nebuliza tion route before meals for 90 days. 06/16 completed Not Available Not Available Not Available citalopra m 40 mg tablet TAKE 1 TABLET(4 0 MG) BY MOUTH EVERY MORNING active Not Available Not Available No t Available divalproe x 250 mg tablet,de layed release TK 4 TS PO Q 12 H 04/27 completed Not Available Not Available Not Available enalapril maleate 5 mg tablet TAKE 1 TABLET BY MOUTH EVERY DAY active Not Available Not Available No t Available atorvasta tin 10 mg tablet TAKE 1 TABLETS BY MOUTH EVERY DAY 09/10 completed Not Available Not Available Not Available ibuprofen 800 mg tablet TAKE 1 TABLET BY MOUTH Twice DAILY NEEDED FOR PAIN active Not Available Not Available No t Available metoprolo l tartrate 100 mg tablet active Not Available Not Available Not Available clorazepa te dipotassi um 3.75 mg tablet TK 1 T PO QPM 02/02 completed Not Available Not Available Not Available cephalexi n 250 mg capsule TK ONE C PO Q 8 H FOR 10 DAYS 02/02 completed Not Available Not Available Not Available hydrocodo ne 5 mg-acetam inophen 325 mg tablet TAKE ONE TO TWO TS PO Q 4-6 H PRN 04/27 completed Not Available Not Available Not Available Q-Dryl 25 mg capsule active Not Available Not Available Not Available enalapril 5 mg-hydroc hlorothia zide 12.5 mg tablet Take 1 tablet every day by oral route. 09/04 completed Not Available Not Available Not Available prednison e 20 mg tablet TAKE 2 TABLETS BY MOUTH EVERY DAY FOR 5 DAYS active Not Available Not Available No t Available Doc-Q-Lac e 100 mg capsule TK ONE C PO Q 12 H active Not Available Not Available No t Available clonazepa m 1 mg tablet TK 1 T PO BID PRN FOR ANXIETY 02/02 completed Not Available Not Available Not Available Zithromax Z-Ladarius 250 mg tablet Take 1 dose pk by oral route as directed . active Not Available Not Available No t Available acetazola mide 250 mg tablet TK 1 T PO BID 02/02 completed Not Available Not Available Not Available clindamyc in HCl 150 mg capsule TK ONE C PO QID 02/02 completed Not Available Not Available Not Available Accu-Chek Softclix Lancets USE TO TEST D UTD 06/08 completed Not Available Not Available Not Available diphenoxy late-atro pine 2.5 mg-0.025 mg tablet TAKE 1 TABLET BY MOUTH THREE TIMES DAILY FOR 3 DAYS NEEDED FOR DIARRHEA 06/28 completed Not Available Not Available Not Available meclizine 12.5 mg tablet TAKE 1 TABLET BY MOUTH THREE TIMES DAILY NEEDED FOR DIZZINES S active Not Available Not Available No t Available triamcino lone acetonide 0.5 % topical ointment active Not Available Not Available Not Available acetamino phen 300 mg-codein e 30 mg tablet TAKE 1 TABLET BY MOUTH TWICE DAILY NEEDED FOR PAIN active Not Available Not Available No t Available bacitraci n zinc 500 unit/gram topical ointment APPLY AA OF SKIN TID active Not Available Not Available No t Available ciproflox acin 500 mg tablet TK 1 T PO BID FOR 10 DAYS 02/02 completed Not Available Not Available Not Available sulfameth oxazole 800 mg-trimet hoprim 160 mg tablet TK 1 T PO Q 12 H TAT active Not Available Not Available No t Available peg-elect rolyte solution 420 gram oral solution 03/11 completed Not Available Not Available Not Available tramadol 50 mg tablet TAKE 1 TABLET BY MOUTH EVERY 6 HOURS NEEDED FOR PAIN 04/27 completed Not Available Not Available Not Available triamcino lone acetonide 0.1 % topical cream active Not Available Not Available Not Available amoxicill in 500 mg tablet Take 1 tablet 3 times a day by oral route for 7 days. 11/23 completed Not Available Not Available Not Available glimepiri de 2 mg tablet TK 1 T PO BID WF 04/27 completed Not Available Not Available Not Available glimepiri de 1 mg tablet TAKE 2 TABLETS BY MOUTH TWICE DAILY DIRECTED active Not Available Not Available No t Available lamotrigi ne 25 mg tablet TK 1 T PO QD 01/25 completed Not Available Not Available Not Available levothyro xine 75 mcg tablet TAKE 1 TABLET BY MOUTH EVERY DAY IN THE MORNING 12/11 completed Not Available Not Available Not Available meloxicam 7.5 mg tablet TK 1 T ONE TIME DAILY WITH FOOD active Not Available Not Available No t Available levothyro xine 88 mcg tablet TAKE 1 TABLET BY MOUTH EVERY DAY IN THE MORNING active Not Available Not Available No t Available amoxicill in 875 mg tablet TAKE 1 TABLET BY MOUTH THREE TIMES DAILY FOR 7 DAYS 04/17 completed Not Available Not Available Not Available famotidin e 20 mg tablet active Not Available Not Available Not Available lorazepam 0.5 mg tablet TK 1 T PO PRN FOR ANXEITY MAX OF 2 TS PER DAY 06/08 completed Not Available Not Available Not Available Valium 5 mg tablet take 1 tablet 30 mins before 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 Not Available Not Available No t Available [employer] Ultra Test strips USE TO TEST TWICE DAILY active Not Available Not Available No t Available meclizine 25 mg tablet TK 1 T PO Q 8 H PRN 04/27 completed Not Available Not Available Not Available benzonata te 100 mg capsule 04/26 completed Not Available Not Available Not Available nortripty line 75 mg capsule TAKE 1 CAPSULE BY MOUTH TWICE DAILY active Not Available Not Available No t Available levothyro xine 50 mcg tablet one tablet daily 09/18 completed Not Available Not Available Not Available hydrocodo ne 7.5 mg-acetam inophen 325 mg tablet active Not Available Not Available Not Available cephalexi n 500 mg capsule Take 1 capsule 3 times a day by oral route for 10 days. active Not Available Not Available No t Available pantopraz ole 40 mg tablet,de layed release TAKE 1 TABLET BY MOUTH AT BEDTIME FOR 4 WEEKS 09/27 completed Not Available Not Available Not Available simvastat in 20 mg tablet TAKE 1 TABLET PO QPM 04/27 completed Not Available Not Available Not Available metformin 1,000 mg tablet Take 1 tablet twice a day by oral route with meals for 30 days. active Not Available Not Available No t Available triamcino lone acetonide 0.1 % topical ointment KATARZYNA AA Q 12 H PRN 02/02 completed Not Available Not Available Not Available divalproe x ER 500 mg tablet,ex tended release 24 hr TAKE 2 TABLETS BY MOUTH EVERY MORNING AND TAKE 1 TABLET AT NIGHT active Not Available Not Available No t Available promethaz ine 25 mg tablet active Not Available Not Available Not Available omeprazol e 20 mg capsule,d elayed release TAKE ONE CAPSULE BY MOUTH DAILY BEFORE A MEAL active Not Available Not Available No t Available aspirin 81 mg chewable tablet CHEW AND SWALLOW 1 TABLET BY MOUTH EVERY DAY active Not Available Not Available No t Available cephalexi n 500 mg tablet Take 1 tablet 3 times a day by oral route for 7 days. 10/20 completed Not Available Not Available Not Available monteluka st 10 mg tablet TAKE 1 TABLET BY MOUTH EVERY DAY active Not Available Not Available No t Available hydroxyzi ne HCl 25 mg tablet 03/25 completed Not Available Not Available Not Available hydrocodo ne 5 mg-acetam inophen 500 mg tablet TK 1 T PO Q 6 H PRN active Not Available Not Available No t Available topiramat e 200 mg tablet TAKE 1 TABLET BY MOUTH TWICE DAILY active Not Available Not Available No t Available mupirocin 2 % topical ointment Apply to nares BID x2wks active Not Available Not Available No t Available ergocalci ferol (vitamin D2) 1,250 mcg (50,000 unit) capsule TAKE 1 CAPSULE BY MOUTH EVERY WEEK active Not Available Not Available No t Available lorazepam 1 mg tablet 02/02 completed Not Available Not Available Not Available ibuprofen 600 mg tablet TK 1 T PO Q 6 H 04/27 completed Not Available Not Available Not Available cefuroxim e axetil 500 mg tablet Take 1 tablet twice a day by oral route for 7 days. active Not Available Not Available No t Available polyethyl haroon glycol 3350 17 gram/dose oral powder 08/24 completed Not Available Not Available Not Available methylpre dnisolone 4 mg tablets in a dose pack TK UTD active Not Available Not Available Not Available albuterol sulfate HFA 90 mcg/actua tion aerosol inhaler INHALE 2 PUFFS BY MOUTH EVERY 4 HOURS NEEDED 2022 active Not Available Not Available Not Avai lable colchicin e 0.6 mg tablet TAKE 1 TABLET BY MOUTH EVERY DAY active Not Available Not Available No t Available pioglitaz one 30 mg tablet TAKE 1 TABLET BY MOUTH IN THE MORNING active Not Available Not Available No t Available ondansetr on 4 mg disintegr ating tablet DISSOLVE 1 T ON THE TONGUE Q 8 H PRN 04/27 completed Not Available Not Available Not Available cefdinir 300 mg capsule Take 1 capsule twice a day by oral route for 10 days. active Not Available Not Available No t Available topiramat e 100 mg tablet TAKE 1 TABLET BY MOUTH EVERY NIGHT AT BEDTIME WITH 200MG TABLET active Not Available Not Available No t Available fluticaso ne propionat e 50 mcg/actua tion nasal spray,reanna pension SHAKE LIQUID AND USE 2 SPRAYS IN EACH NOSTRIL EVERY MORNING active Not Available Not Available No t Available metformin ER 500 mg tablet,ex tended release 24 hr Take 1 tablet twice a day by oral route before meals for 30 days. 02/13 completed Not Available Not Available Not Available doxycycli ne hyclate 100 mg tablet Take 1 tablet twice a day by oral route for 10 days. active Not Available Not Available No t Available dicyclomi ne 10 mg capsule Take 1 capsule 3 times a day by oral route. active Not Available Not Available No t Available loratadin e 10 mg tablet TK 1 T PO D PRF ALLERGY SYMPTOMS active Not Available Not Available No t Available gentamici n 0.1 % topical ointment APPLY A SMALL AMOUNT TO THE AFFECTED AREA BY TOPICAL ROUTE 2 TIMES A DAY TO INFECTED TOE FOR TEN DAYS active Not Available Not Available No t Available Depakote 500 mg tablet,de layed release TAKE 1000MG in AM and 500MG in PM 01/03 completed duplicat e Not Available Not Available Not Available naproxen 500 mg tablet 03/29 completed Not Available Not Available Not Available amoxicill in 875 mg-potass ium clavulana te 125 mg tablet TAKE 1 TABLET BY MOUTH EVERY 12 HOURS 06/20 completed Not Available Not Available Not Available amoxicill in 500 mg-potass ium clavulana te 125 mg tablet TAKE 1 TABLET BY MOUTH EVERY 12 HOURS FOR 10 DAYS DIRECTED 03/11 completed Not Available Not Available Not Available divalproe x ER 250 mg tablet,ex tended release 24 hr TAKE 1 TABLET BY MOUTH EVERY NIGHT AT BEDTIME. TAKE WITH A 500 MG TABLET TO EQUAL 750 MG AT BEDTIME ONLY 06/20 completed Not Available Not Available Not Available Laxative (bisacody l) 5 mg tablet TAKE ALL 6 TABLETS BY MOUTH AT 8 AM ON 01-24-2106/20 completed Not Available Not Available Not Available cyclobenz aprine 5 mg tablet active Not Available Not Available No t Available rosuvasta tin 40 mg tablet TAKE 1 TABLET BY MOUTH EVERY DAY AT BEDTIME active Not Available Not Available No t Available metformin ER 1,000 mg tablet,ex tended release 24hr (osmotic) TK 1 T PO BID B MEALS 04/27 completed Not Available Not Available Not Available omega-3 acid ethyl esters 1 gram capsule TAKE 2 CAPSULES BY MOUTH TWICE DAILY BEFORE MEALS active Not Available Not Available No t Available fenofibra te 160 mg tablet TAKE 1 TABLET BY MOUTH DAILY active Not Available Not Available No t Available OneTouch Ultra2 Meter kit USE BID active Not Available Not Available No t Available Xopenex HFA 45 mcg/actua tion aerosol inhaler Inhale 2 puffs every 6 hours by inhalati on route as needed for 90 days. 02/02 completed Not Available Not Available Not Available fenofibra te nanocryst allized 145 mg tablet Take 1 tablet every day by oral route at bedtime for 30 days. active Not Available Not Available No t Available Januvia 50 mg tablet TAKE 1 TABLET BY MOUTH EVERY DAY IN THE MORNING active Not Available Not Available No t Available Flovent Diskus 100 mcg/actua tion powder for inhalatio n active Not Available Not Available Not Available Prevnar 13 (PF) 0.5 mL intramusc ular syringe active Not Available Not Available Not Available Dulera 200 mcg-5 mcg/actua tion HFA aerosol inhaler INL 2 PFS PO BID 04/27 completed Not Available Not Available Not Available OneTouch Delica Lancets 30 gauge TEST BID 12/23 completed Not Available Not Available Not Available icosapent ethyl 1 gram capsule TAKE 2 CAPSULES BY MOUTH TWICE DAILY BEFORE MEALS active Not Available Not Available No t Available Preparati on H(phenyle ph,cocoa buttr) 0.25 %-88.44 % rectal supposito ry Insert 1 supposit ory every day by rectal route as needed for 90 days. 12/09 completed Not Available Not Available Not Available Jardiance 10 mg tablet Take 1 tablet every day by oral route in the morning for 14 days. active Not Available Not Available No t Available Jardiance 25 mg tablet active Not Available Not Available Not Available Incruse Ellipta 62.5 mcg/actua tion powder for inhalatio n INHALE 1 PUFF BY MOUTH ONCE DAILY 09/27 completed Not Available Not Available Not Available Fluvirin 8622-9302 45 mcg (15 mcg x 3)/0.5 mL intramusc ular suspensio n active Not Available Not Available Not Available Adults Multivita min 18 mg iron-400 mcg-25 mcg tablet Take 2 tablets every day by oral route. 01/04 completed Not Available Not Available Not Available OneTouch Ultra Blue Test Strip USE STRIPS TO TEST BLOOD SUGAR BID. ONCE BEFORE BREAKFAS T AND ONCE HS active Not Available Not Available No t Available Fluzone Quad 2017-(P F) 60 mcg(15 mcgx4)/0. 5 mL intramusc ular syringe ADM 0.5ML IM UTD 04/27 completed Not Available Not Available Not Available Wixela Inhub 250 mcg-50 mcg/dose powder for inhalatio n INHALE 1 PUFF BY MOUTH TWICE DAILY 09/18 completed Not Available Not Available Not Available Wixela Inhub 500 mcg-50 mcg/dose powder for inhalatio n INHALE 1 PUFF BY MOUTH TWICE DAILY DIRECTED 09/27 completed Not Available Not Available Not Available OneTouch Ultra2 Meter TEST TWICE DAILY active Not Available Not Available No t Available OneTouch Delica Plus Lancet 33 gauge USE TO TEST TWICE DAILY active Not Available Not Available No t Available Fluzone Quad (PF) 60 mcg (15 mcg x 4)/0.5 mL IM syringe ADM 0.5ML IM UTD 04/27 completed Not Available Not Available Not Available Paxlovid 300 mg (150 mg x 2)-100 mg tablets in a dose pack TK 2 NIRMATRE LVIR TS AND 1 RITONAVI R T TOGETHER PO BID FOR 5 DAYS TWICE DAILY FOR 5 DAYS 09/18 completed Not Available Not Available Not Available Vitals Date Recorded Body height Body mass index (BMI) Body weight Heart rate Respiratory rate Oxygen saturation Oxygen saturation in Arterial blood by Pulse oximetry Systolic blood pressure Diastolic blood pressure Provider Name and Address Organization Details Last Updated DateTime 3 170.18 cm 36.2 kg/m2 894140. 84 g 79 /min 14 /min 98 % 98 % 94 mm[Hg] 63 mm[Hg] Comfort Hein [facility] [employer] [facility] 3 13:55:54 Date Recorded Body height Body mass index (BMI) Body weight Body temperature Heart rate Systolic blood pressure Diastolic blood pressure Provider Name and Address Organization Details Last Updated DateTime 3 170.18 cm 37.1 kg/m2 098323. 39 g 99.7 [degF] 79 /min 118 mm[Hg] 60 mm[Hg] MERISSA Torres [facility] [employer] [facility] 3 10:10:47 Date Recorded Body height Body temperature Provider N socrates and Address Organization Details Last Updated DateTime 03/26/2023 170.18 cm 97.9 [degF] Gretel Huerta MA [facility] [employer] [facility] 03/26/2023 11:28:52 Date Recorded Body weight Heart rate Oxygen saturation Oxygen saturation in Arterial blood by Pulse oximetry Systolic blood pressure Diastolic blood pressure Provider Name and Address Organization Details Last Updated DateTime 3 769720. 25 g 77 /min 97 % 97 % 122 mm[Hg] 64 mm[Hg] Hiral Harris RN [facility] [employer] [facility] 3 11:48:36 Date Recorded Body height Body mass index (BMI) Body weight Body temperature Heart rate Systolic blood pressure Diastolic blood pressure Provider Name and Address Organization Details Last Updated DateTime 3 170.18 cm 36.6 kg/m2 055680. 61 g 97.4 [degF] 78 /min 116 mm[Hg] 64 mm[Hg] MERISSA Torres [facility] [employer] [facility] 3 11:54:35 Date Recorded Body height Body mass index (BMI) Body weight Heart rate Respiratory rate Oxygen saturation Oxygen saturation in Arterial blood by Pulse oximetry Systolic blood pressure Diastolic blood pressure Provider Name and Address Organization Details Last Updated DateTime 4 170.18 cm 36.6 kg/m2 791421. 61 g 88 /min 14 /min 99 % 99 % 119 mm[Hg] 78 mm[Hg] Comfort Hein [facility] [employer] [facility] 4 13:56:43 Social History Question Answer Notes LastModified by Organization Details LastModified Time Tobacco Smoking Status Former Smoker quit over 25 yrs ago Not Available [employer] 07/12/2022 00:51:27 Do You Have An Advance Directive? Yes Brother Is POA MIGRATION.0301 [id number] Information not available 07/12/2022 What Is Your Level Of Alcohol Consumption? None MIGRATION.0301 [id number] Information not available 07/12/2022 What Is Your Level Of Caffeine Consumption? Moderate MIGRATION.030 656102 Information not available 07/12/2022 How Much Tobacco Do You Chew? None MIGRATION.030 994334 Information not available 07/12/2022 In The 14 Days Before Symptom Onset, Have You Had Close Contact With A Laboratory-conf irmed COVID-19 While That Case Was Ill? No MIGRATION.030 [id number] Information not available 07/12/2022 In The 14 Days Before Symptom Onset, Have You Had Close Contact With A Person Who Is Under Investigation For COVID-19 While That Person Was Ill? No MIGRATION.030 [id number] Information not available 07/12/2022 What Type Of Diet Are You Following? REGULAR MIGRATION.0301 [id number] Information not available 07/12/2022 Which Illicit Or Recreational Drugs Have You Used? None MIGRATION.0301 [id number] Information not available 07/12/2022 Do You Or Have You Ever Used E-cigarettes Or Vape? Never Used Electronic Cigarettes MIGRATION.0301 264293 Information not available 07/12/2022 What Is The Highest Grade Or Level Of School You Have Completed Or The Highest Degree You Have Received? [id number] MIGRATION.0301 [id number] Information not available 07/12/2022 What Is Your Occupation? Disability MIGRATION.0301 146163 Information not available 07/12/2022 Have There Been Any Changes To Your Family Or Social Situation? No MIGRATION.0301 889203 Information not available 07/12/2022 What Is The Fluoride Status Of Your Home? Unknown MIGRATION.030 014986 Information not available 07/12/2022 When Did You Quit Smoking? 15+yearssincelastc igarette MIGRATION.0301 972374 Information not available 07/12/2022 Are There Any Guns Present In Your Home? No MIGRATION.0301 657029 Information not available 07/12/2022 Do You Use Insect Repellent Routinely? No MIGRATION.0301 615652 Information not available 07/12/2022 Where Do You Live? SingleLevelHouse With Basement MIGRATION.0301 723534 Information not available 07/12/2022 Do You Have A Medical Power Of Medical Scribe? Yes MIGRATION.0301 407307 Information not available 07/12/2022 What Was The Date Of Your Most Recent Tobacco Screening? 04/17/2023 [email or web address] Information not available 04/17/2023 Do You Have Any Pets? Yes MIGRATION.0301 539452 Information not available 07/12/2022 What Is Your Relationship Status? Single MIGRATION.0301 [id number] Information not available 07/12/2022 Do You Use Your Seat Belt Or Car Seat Routinely? Yes MIGRATION.0301 057541 Information not available 07/12/2022 Do You Have Smoke And Carbon Monoxide Detectors In Your Home? Yes MIGRATION.0301 901150 Information not available 07/12/2022 Are You Passively Exposed To Smoke? No MIGRATION.0301 136974 Information not available 07/12/2022 Do You Or Have You Ever Used Smokeless Tobacco? Never Used Smokeless Tobacco MIGRATION.0301 047917 Information not available 07/12/2022 Are There Any Smokers In Your House? No MIGRATION.0301 429939 Information not available 07/12/2022 How Much Tobacco Do You Smoke? No MIGRATION.0301 505878 Information not available 07/12/2022 What Types Of Sporting Activities Do You Participate In? None MIGRATION.0301 146892 Information not available 07/12/2022 Do You Feel Stressed (tense, Restless, Nervous, Or Anxious, Or Unable To Sleep At Night)? [id number] MIGRATION.0301 881659 Information not available 07/12/2022 Do You Use Any Illicit Or Recreational Drugs? No MIGRATION.0301 541593 Information not available 07/12/2022 Do You Use Sunscreen Routinely? No MIGRATION.0301 830004 Information not available 07/12/2022 Has Tobacco Cessation Counseling Been Provided? No MIGRATION.0301 011980 Information not available 07/12/2022 How Many Years Have You Smoked Tobacco? 20 MIGRATION.0301 953490 Information not available 07/12/2022 Have You Recently Traveled Abroad? No MIGRATION.0301 731344 Information not available 07/12/2022 Do You Have Any Dietary Restrictions? No MIGRATION.0301 550043 Information not available 07/12/2022 Do You Or Have You Ever Used Any Other Forms Of Tobacco Or Nicotine? No MIGRATION.0301 320624 Information not available 07/12/2022 Sex: Male Functional Status Question Answer Note LastModified by Organizat ion Details LastModified Time What is your exercise level? Occasional walks MIGRATION.[id number] 26 Information not available 07/12/2022 Mental Status None recorded. Family History Relationship Description Onset Age of this Age Resolved Age Notes LastModified by Organization Details LastModified Time Father Neoplasm of brain MIGRATION.371 [id number] Not available 07/12/2022 00:57:12 Father Family history of malignant neoplasm MIGRATION.406 [id number] Not available 07/12/2022 00:57:12 Father Family history of Hypertension MIGRATION.087 [id number] Not available 07/12/2022 00:57:12 Mother Congestive heart failure MIGRATION.667 [id number] Not available 07/12/2022 00:57:12 Mother Family history of Hypertension MIGRATION.592 [id number] Not available 07/12/2022 00:57:12 Brother Asthma MIGRATION.655 [id number] Not available 07/12/2022 00:57:12 Brother Anxiety MIGRATION.507 [id number] Not available 07/12/2022 00:57:12 Brother Family history of Hypertension MIGRATION.646 [id number] Not available 07/12/2022 00:57:12 Brother Family history of diabetes mellitus MIGRATION.247 [id number] Not available 07/12/2022 00:57:12 Brother Kidney disease MIGRATION.793 [id number] Not available 07/12/2022 00:57:12 Sister Family history of Hypertension MIGRATION.420 [id number] Not available 07/12/2022 00:57:12 Sister Family history of diabetes mellitus MIGRATION.896 [id number] Not available 07/12/2022 00:57:12 Unspecified Relation Asthma niece [email or web address] Not available 12/29 11:33:59 Medical History Condition Response CHEST XRAY N BLINDNESS N NERVE DISEASE N OTHER # 1 N POLIO N LUNG DISEASE/DISORDER N RADIATION / CHEMOTHERAPY N COPD N Other # 2 N BLOOD DISEASES N SURGERY N EAR OR HEARING PROBLEMS N BOWEL PROBLEMS N DEPRESSION (INCLUDING POST ) Y FEMALE PROBLEMS / INFECTIONS N STROKE/TIA N CHEST CT N ULCERS N RENAL INSUFFICIENCY N BENIGN PROSTATIC HYPERPLASIA N TB SKIN TEST N OBESITY N GERD/NAUSEA N EXCESSIVE PERSPIRATION N ANEURYSM N URINARY/BLADDER/KIDNEY PROBLEMS N CORONARY ARTERY DISEASE (CAD) N USE OF BLOOD THINNERS N SKIN PROBLEMS N EMPHYSEMA N SHORTNESS OF BREATH N GASTROINTESTINAL DISORDER N PARATHYROID DISEASE N PERIPHERAL VASCULAR DISEASE N GASTROINTESTINAL BLEEDING N BLOOD CLOTS Y ASTHMA Y CONCUSSION OR SPINAL TRAUMA N VARICOSITIES N GI PROBLEMS N CHF N AIDS/HIV N HYPERTENSION Y ANXIETY DISORDER N BLOOD TRANSFUSION N ANEMIA/BLOOD DISORDER N BRONCHITIS N TUBERCULOSIS N GLAUCOMA N SLEEP APNEA N ALLERGIES/HAYFEVER N INFECTIOUS DISEASE N HEART ARRHYTHMIA N PROSTATE N INSOMNIA N HIGH CHOLESTEROL / HYPERLIPIDEMIA Y HYPERTHYROIDISM N NEUROLOGICAL PROBLEMS N EDEMA N HYPOTHYROIDISM N CAROTID BLOCKAGE N BACK / NECK PROBLEMS Y HAVE YOU BEEN HOSPITALIZED OR SEEN IN [facility] IN THE PAST YEAR ? Y ATHEROSCLEROSIS N BREAST PROBLEMS N HERNIATED DISC N DIALYSIS N FIBROMYALGIA N OSTEOPOROSIS N ARTHRITIS N DIABETES, TYPE Y SEASONAL ALLERGIES Y HEARTBURN / REFLUX Y PLEURISY N ADD/ADHD N Bronchoscopy N HEPATITIS / LIVER DISEASE N PULMONARY DISEASE N GOUT N SLEEP DISORDER Y ALZHEIMER'S DISEASE N FATIGUE N DEMENTIA N HERPES N RETINOPATHY N SEIZURES/EPILEPSY Y HEADACHES/MIGRAINES N SLEEP STUDY N VASCULAR DISEASE N DIZZINESS N HEAD TRAUMA OR INJURY N HEART DISEASE/HEART PROBLEMS Y MULTIPLE SCLEROSIS N PULMONARY FUNCTION TEST N CANCER: SPECIFY N CARDIAC ARRHYTHMIA N ANESTHESIA COMPLICATIONS N PNEUMONIA N ATRIAL FIBRILLATION N PULMONARY EMBOLISM N AUTOIMMUNE DISEASE N Immunizations Vaccine Type Date Status Note Provider Nam e and Address Organization Details Recorded Time Pneumococcal Conjugate, unspecified formulation 3 completed Not Available [facility] 03/06/2023 01:41:15 COVID-19, mRNA, LNP-S, PF, 100 mcg/0.5mL dose or 50 mcg/0.25mL dose 1 completed Not Available [facility] 03/06/2023 01:41:15 COVID-19, mRNA, LNP-S, PF, 100 mcg/0.5mL dose or 50 mcg/0.25mL dose 1 completed Not Available [facility] 03/06/2023 01:41:15 Influenza, split virus, quadrivalent, preservative 0 completed Not Available [facility] 03/06/2023 01:41:15 Influenza, split virus, quadrivalent, preservative 0 completed Not Available [facility] 03/06/2023 01:41:15 Influenza, split virus, quadrivalent, preservative 9 completed Not Available [facility] 03/06/2023 01:41:15 influenza, seasonal, intradermal, preservative free 3 completed Not Available [facility] 03/06/2023 01:41:15 COVID-19, mRNA, LNP-S, PF, 100 mcg/0.5mL dose or 50 mcg/0.25mL dose 1 completed Not Available [facility] 03/06/2023 01:41:15 Influenza, high-dose, quadrivalent, PF 1 completed Not Available [facility] 03/06/2023 01:41:15 Influenza, split virus, quadrivalent, preservative 7 completed Not Available [facility] 03/06/2023 01:41:15 Influenza, split virus, quadrivalent, PF 2 completed Not Available [facility] 03/06/2023 01:41:15 Influenza, split virus, trivalent, PF 4 completed Not Available [facility] 03/06/2023 01:41:15 Past Encounters Encounter ID Performer Location Encounter Start Date Encounter Closed Date Diagnosis/Indication Diagnosis SNOMED-CT Code Diagnosis ICD10 Code Diagnosis Note [id number] [facility] [place] [id number] 0 07/16/2020 00:00:00 07/16/2020 14:18:07 [id number] [facility] [address] [address] 08/09/2020 00:00:00 08/15/2020 09:49:27 [id number] [facility] [place] [id number] 0 08/13/2020 00:00:00 08/13/2020 16:20:54 [id number] _ATHENA_M IGRATION_ DEFAULT_1 _1 , 09/16/2020 00:00:00 09/16/2020 16:20:03 [id number] [facility] [address] [address] 10/13/2020 00:00:00 10/23/2020 13:49:34 [id number] [facility] [address] [address] 10/15/2020 00:00:00 10/31/2020 11:28:19 [id number] [facility] [address] [address] 10/20/2020 00:00:00 11/07/2020 15:45:45 [id number] [facility] [address] [address] 10/27/2020 00:00:00 10/31/2020 20:47:32 [id number] [facility] [address] [address] 11/08/2020 00:00:00 11/08/2020 21:55:16 [id number] [facility] Internal Med [facility] [address] [place] [address] Ave[address] [address] 12/02/2020 00:00:00 12/05/2020 10:36:38 [id number] [facility] [place] [address], [facility] 4 [place] [address] 12/06/2020 00:00:00 12/10/2020 17:55:37 [id number] [facility] [place] [address] [place] [address] 12/23/2020 00:00:00 01/10/2021 12:19:09 [id number] [facility] [place] [address] [facility], [facility] 4 [place] [address] 12/28/2020 00:00:00 12/28/2020 11:55:42 [id number] [facility] Internal [facility] [address] [address] 01/03/2021 00:00:00 01/23/2021 21:03:16 [id number] _ATHENA_M IGRATION_ DEFAULT_1 _1 , 01/06/2021 00:00:00 01/06/2021 14:34:46 [id number] [facility] [place] [address] [facility], [facility] 4 [place] [address] 01/20/2021 00:00:00 01/27/2021 10:11:52 [id number] [facility] [place] [address] [facility], [facility] 4 [place] [address] 01/27/2021 00:00:00 01/27/2021 10:12:30 [id number] [facility] [place] [address] [place] [address] 01/31/2021 00:00:00 01/31/2021 16:24:45 [id number] [facility] Internal Med [facility] [address] [facility] 15 [place] [address] 03/11/2021 00:00:00 03/11/2021 21:59:34 [id number] _ATHENA_M IGRATION_ DEFAULT_1 _1 , 03/24/2021 00:00:00 03/24/2021 14:54:01 [id number] [facility] [place] [address] [place] [address] 04/14/2021 00:00:00 04/14/2021 17:05:22 [id number] [facility] [place] [address] [facility], [place] [address] [place] [address] 04/21/2021 00:00:00 08/09/2021 11:13:05 [id number] [facility] [place] [address] [place] [address] 06/20/2021 00:00:00 06/20/2021 16:32:20 [id number] [facility] Internal Med [facility] [address] [facility] 15 [place] [address] 07/13/2021 00:00:00 07/31/2021 12:48:38 [id number] [facility] Internal Med [facility] [address] [facility] [address] [facility] 15 [place] [address] 09/02/2021 00:00:00 09/02/2021 16:42:18 [id number] [facility] [place] [address], [place] [address] [place] [address] 09/15/2021 00:00:00 09/15/2021 22:07:10 [id number] _ATHENA_M IGRATION_ DEFAULT_1 _1 , 09/29/2021 00:00:00 09/29/2021 21:48:28 [id number] [facility] [place] [address] [place] [address] 10/18/2021 00:00:00 10/18/2021 15:48:28 [id number] [facility] Internal [facility] [address] [place] [address] [place] [address] 11/04/2021 00:00:00 11/06/2021 13:27:51 [id number] [facility] [place] [address] [facility] 15 [place] [address] 12/26/2021 00:00:00 12/27/2021 20:56:57 [id number] [facility] [place] [address] [place] [address], [place] [address] [place] [address] 01/12/2022 00:00:00 01/12/2022 15:12:52 [id number] [facility] Podiatry [address], [place] [address] [place] [address] 02/16/2022 00:00:00 02/16/2022 15:47:21 [id number] [facility] Internal Med [facility] [address] [facility] [facility] 15 [place] [address] 02/20/2022 00:00:00 02/20/2022 22:12:12 [id number] [facility] Internal [facility] [address] [facility] [facility] 15 [place] [address] 03/09/2022 00:00:00 04/08/2022 10:41:44 [id number] [facility] Internal Med [facility] [address] [address] 03/29/2022 00:00:00 04/02/2022 15:54:07 [id number] [facility] [place] [address] [place] [address] 04/19/2022 00:00:00 04/19/2022 16:59:07 [id number] [facility] [place] [address] [place] [address] 06/19/2022 00:00:00 06/19/2022 16:14:09 [id number] [facility] Internal Med [facility] [address] [place] [address] Ave[address] [facility] 15 [place] [address] 06/28/2022 00:00:00 07/02/2022 14:26:40 [id number] Jackie Orlando, DATA ANALYSIS ASSISTANT-BC [facility] [place] [address] [place] [address] 07/19/2022 10:37:21 07/20/2022 08:46:40 Chronic obstructive pulmonary disease [id number] J44.9 PFT in 09/2018 through [facility] in chart with ratio 109%, FEV1 97%. TLC 93%, DLCO 101.Repeat ed PFT and [address] in [facility], need records He had a syncopal episode during latest PFT testing 03/30/22 but he was able to complete initial lung volumes. He had normal ratio and FEV1 Also with normal lung volumes CBC and IGE levels WNLCXR 03/2021 WNL. Methacholi ne challenge completed 05/12/22 - negativeCo ntinue incruse and albuterol for now, DC WixelaInst ructed on technique Dyspnea on exertion 6084 5006 R06.09 Multifacto ralCT chest with no evidence of ILDINcreas e activityWE ight loss Obstructiv e sleep apnea syndrome [id number] G47.33 Not compliant with PAP therapyDis cussed the risk of uncorrecte d ALLA, including Ex-cigarette smoker 3860 58491 Z87.891 Quit over 25 years ago [id number] Georgia Story MD [facility] [place] [address] [place] [address] 08/07/2022 14:12:52 08/07/2022 15:27:21 Uncontrolled type 2 diabetes mellitus [id number] E11.65 a1c 8.2% up from 7% range- will add januvia 50 mg daily as patient is adversive to starting on injections and would require further nursing care in future as patient has low level of understand ing. Will continue jardiance, glimepirid e and actos as patient tolerating well. Discussed carb counting and how to read food labels. Recommende d patient to utilize the diabetesfo [employer] from the ADA website to help with food preparatio n as this presents ideal carb content per meal so this will make carb counting much easier for patient. Recommende d he incorporat e natural insulin exercise physiologist s such as pears, apples, cinnamon, thu and sweet potatoes to help mobilize his endogenous insulin. Recommende d up to 150 minutes of moderate level activity/e xercise weekly. Hypothyroidism [id number] E03.9 TSH and FT4 in range- continue on LT4 75 mcg daily. Mixed hyperlipidemia 267 839579 E78.2 Continue statin and icosapent fish oil twice daily- patient encouraged strigent glucose control and restrict carbs to under 120 no more than 150 grams per day. Spent up to 25 minutes preparing to see the patient (eg, review of tests), obtaining and/or reviewing separately obtained history, performing a medically appropriat e examinatio n and evaluation , counseling and educating the patient, ordering medication s, tests, along with documentin g clinical informatio n in the electronic health record, independen tly interpreti ng results and communicat ing results to the patient. RTC in 4-5 months. Patient was provided a handwritte n lab order which contains our fax number. If he chooses to go outside of the [facility] system to obtain labwork he was advised to provide our fax number and my informatio n to the lab he will be obtaining labwork from in order to have his labs properly forwarded over for me to review so there is no loss of follow up due to use of outside network. He was also advised to contact our clinic informing us that he has completed his labwork so we are aware we will need to reach out to the appropriat e laboratory to request his results be forwarded to us so I might have the ability to review and make further medical decision making in his case. He voiced understand ing. [id number] Turner Johnson DPM [facility] [place] [address], [place] [address] [place] [address] 08/31/2022 16:56:44 09/04/2022 15:43:36 Bunion [id number] M21.611 Worse to the right footoffloa ding pad dispensedc ontinue accommodat madi inserts with diabetic style shoeFollow -up as needed [id number] Jackie Orlando, DATA ANALYSIS ASSISTANT-BC [facility] [place] [address] [place] [address] 09/18/2022 10:12:00 09/18/2022 11:49:13 Dyspnea on exertion [id number] R06.09 PFT in 09/2018 through [facility] in chart with ratio 109%, FEV1 97%.TLC 93%, DLCO 101.Repeat ed PFT and [address] in [facility], need recordsHe had a syncopal episode during latest PFT testing 03/30/22 but he was able to complete initial lung volumes. He had normal ratio and RKP4Dejs with normal lung volumesCBC and IGE levels WNLCXR 03/2021 WNL.Methac holine challenge completed 05/12/22 - negativeDC incruse ElliptaCon tinue Albuterol PRNInstruc daron on techniqueM ultifactor alCT chest with no evidence of ILDIncreas e activityWe ight loss Obstructiv e sleep apnea syndrome [id number] G47.33 Not compliant with PAP therapyDis cussed the risk of uncorrecte d ALLA, including Ex-cigarette smoker 2810 49949 Z87.891 Quit over 25 years agoNot a candidate for LDCTCT as above [id number] Mina Wilson MD [facility] Internal [facility] [address] [facility], [address] [place] [address] 09/27/2022 13:39:35 09/27/2022 15:26:47 Pain of left hip joint [id number] 25330 M25.552 Type 2 darren betes mellitus 69548071 E11.9 Essential hypertension 52138705 I10 Hypercholesterolemia 136 96004 E78.00 [id number] Jackie Orlando [facility] Pulmonolo katarina SrPerry [address] [place] [address] 11/01/2022 11:39:44 11/01/2022 14:09:57 Dyspnea on exertion 16394370 R06.09 Multifacto ralCT chest with no evidence of ILDPFT in 09/2018 through [facility] in chart with ratio 109%, FEV1 97%.TLC 93%, DLCO 101.Repeat ed PFT and [address], need recordsHe had a syncopal episode during latest PFT testing 03/30/22 but he was able to complete initial lung volumes. He had normal ratio and CKU9Svxd with normal lung volumesCBC and IGE levels WNLCXR 03/2021 WNL.Methac holine challenge completed 05/12/22 - negativeIn crease activityWe ight loss Obstructiv e sleep apnea syndrome 54839983 G47.33 Not compliant with PAP therapyHe agrees to restudyHe is unable to set up the home study equipment by himself, order for in-lab study Ex-cigarette smoker 2810 46738 Z87.891 Quit over 25 years ago [id number] Georgia Story MD [facility] Endo Greg Villalta [address] [place] [address] 12/11/2022 13:21:45 12/11/2022 14:33:42 Well controlled type 2 diabetes mellitus 862374447 E11.9 A1C of 5.9% down from 8.2%- continue on jardiance 25 mg daily, glimepirid e scale, pioglitazo ne 30 mg daily and januvia 50 mg daily. Discussed carb counting and how to read food labels. Recommende d patient to utilize the diabetesfo [employer]Advantagene from the ADA website to help with food preparatio n as this presents ideal carb content per meal so this will make carb counting much easier for patient. Recommende d he incorporat e natural insulin exercise physiologist s such as pears, apples, cinnamon, thu and sweet potatoes to help mobilize his endogenous insulin. Recommende d up to 150 minutes of moderate level activity/e xercise weekly. Hypothyroidism 52380106 E03.9 TSH and FT4 in low range- continue on LT4 88 mcg daily. Mixed hyperlipidemia 267 683051 E78.2 Continue statin and icosapent fish oil twice daily- patient encouraged strigent glucose control and restrict carbs to under 120 no more than 150 grams per day. Spent up to 25 minutes preparing to see the patient (eg, review of tests), obtaining and/or reviewing separately obtained history, performing a medically appropriat e examinatio n and evaluation , counseling and educating the patient, ordering medication s, tests, along with documentin g clinical informatio n in the electronic health record, independen tly interpreti ng results and communicat ing results to the patient. Patient can be followed by PCP - she/he is aware of my resignatio n and last day of February 23. If needed his/her PCP can refer patient to another endocrinol ogist in the area. All questions /concerns answered and refills necessary at visit today. [id number] Mina Wilson MD [facility] Internal Med [facility] [address] [facility], [facility] [address] [place] [address] 12/29/2022 11:25:05 12/29/2022 12:14:17 Mixed hyperlipidemia 370997605 E78.2 Essential hypertension 76193634 I10 Hypothyroidism 79093271 E03.9 Diabetes mellitus 127709 09 E11.9 [id number] Turner Johnson DPM [facility] Pod[facility] [place] [address] [facility], [facility] [address] [place] [address] 03/06/2023 13:52:06 03/06/2023 14:09:03 Bunion [id number] M21.611 Worse to the right footoffloa ding silicone offloading spacer dispensedc ontinue accommodat madi inserts with diabetic style shoeFollow -up 3 months if not improved will likely schedule arthrodesi s of 1st metatarsop halangeal joint for bunion correction Hayden of toe 28361953 L84 right 2nd toemonitor for wound infection and presents seek medical attention immediatel y [id number] Mina Wilson MD [facility] Internal Med [facility] [address] [facility], [facility] [address] [place] [address] 03/20/2023 09:44:51 03/20/2023 10:29:41 Upper respiratory infection 60594224 J06.9 Type 2 darren betes mellitus 60640211 E11.9 Essential hypertension 64590194 I10 Hypercholesterolemia 136 08760 E78.00 Hypothyroidism 80980778 E03.9 [id number] Jackie Orlando, DATA ANALYSIS ASSISTANT-BC [facility] Pulmonolo gy Greg Villalta [address] [place] [address] 03/26/2023 11:27:32 03/26/2023 14:03:17 Dyspnea on exertion 44698529 R06.09 Multifacto ral and improvedCT chest with no evidence of ILDPFT in 09/2018 through [facility] in chart with ratio 109%, FEV1 97%.TLC 93%, DLCO 101.Repeat ed PFT and [address], need recordsHe had a syncopal episode during latest PFT testing 03/30/22 but he was able to complete initial lung volumes. He had normal ratio and AEK7Ttdo with normal lung volumesCBC and IGE levels WNLCXR 03/2021 WNL.Methac holine challenge completed 05/12/22 - negativeIn crease activityWe ight loss Obstructiv e sleep apnea syndrome 04275065 G47.33 Not compliant with PAP therapyPos itive sleep study 12/2022 with AHI 5 and desaturati ons to 81%Discuss ed in detail with Mr Branch.He remains uninterest ed in PAP therapy.Di scussed the risks of uncorrecte d ALLA, including Ex-cigarette smoker 2810 20667 Z87.891 Quit over 25 years ago [id number] Mina Wilson MD [facility] Internal Med [facility] [address] [facility], [address] [place] [address] 04/17/2023 10:19:32 04/17/2023 12:29:26 Hypercholesterolemia 18813488 E78.00 Hypothyroidism 79691254 E03.9 [id number] Turner Johnson DPM [facility] [place] [address] [place] [address], [address] [place] [address] 06/14/2023 13:50:43 06/14/2023 15:21:55 Bunion [id number] M21.611 Worse to the right footoffloa ding silicone offloading spacer dispensedo btain surgical clearancew ill plan chevron osteotomy for quicker healing time and ability to weight bear Hayden of toe 87608610 L84 right 2nd toemonitor for wound infection and presents seek medical attention immediatel y Health Concerns Section Related Observation LastModified by Organization Detai ls LastModified Time None Recorded Concern Status LastModified by Organization Details LastModified Time None Recorded Advance Directives Directive Y: Brother is POA Payers Encounter Date Sequence Insurance Name Policy Number Policy Álvarez Covered Member ID Álvarez Member ID Guarantor Name 03/06/2023 1 [employer] (MEDICARE REPLACEMENT/AD VANTAGE - PPO) [id number] Reji Branch [id number] Reji Branch 03/06/2023 2 [place]ARE OR MEDICARE REPLACEMENT PRIMARY) Reji Branch [id number] Reji Branch 03/20/2023 1 [facility] (MEDICARE REPLACEMENT/AD VANTAGE - PPO) [id number] Reji Branch [id number] Reji Branch 03/20/2023 2 [place]IC[place] REPLACEMENT [place]IMARY) Reji Branch [id number] Reji Branch 03/26/2023 1 [facility] (MEDICARE REPLACEMENT/AD VANTAGE - PPO) [id number] Reji Branch [id number] Reji Branch 03/26/2023 2 [place] OR [place]IC[place] REPLACEMENT PRIMARY) Reji Branch [id number] Reji Branch 04/17/2023 1 [facility] (MEDICARE REPLACEMENT/AD VANTAGE - PPO) [id number] Reji Branch [id number] Reji Branch 04/17/2023 2 [place] OR [place]ICARE REPLACEMENT PRIMARY) Reji Branch [id number] Reji Branch 06/14/2023 1 [facility] (MEDICARE REPLACEMENT/AD VANTAGE - PPO) [id number] Reji Branch [id number] Reji Branch 06/14/2023 2 [place] WHEN [place] OR MEDICARE REPLACEMENT PRIMARY) Reji Branch [id number] Reji Branch Notes Date Note Type Note Provider Name and Address Organization Details Recorded Time 3 text/html . Patient is a 58-year-old male diabetic who returns the office for complaints of pain to his right 2nd toe secondary to bunion deformity. Patient produces a painful callus and corn secondary to a severe bunion of the right foot. Patient states that he does not use any offloading devices I did dispense today a silicone toe spacer to help him offload the area to see if this will help reduce the pressure and pain. Patient will return in 3 months and if this continues to be problematic we will discuss fusion of the 1st metatarsophalangeal joint. Patient denies any other complaints. Turner Johnson, ALLEN [address] [facility], [facility] [address], [place], [address], [place] [facility] [employer] [facility] 03/06/2023 14:05:39 3 text/html ABDs no polyphagia no polydipsia hypertension denies headache or dizziness hyperlipidemia could do better on losing weight hypothyroid no heat or cold intolerance does have a respiratory infection Mina Wilson MD [address], [facility] [address], [place], [address], [facility] [employer] [facility] 03/23/2023 18:18:39 3 text/html Mr Branch presents today to follow up on dyspnea, cough, wheezing, testingContinues to report that he has dyspnea on exertion, but this is improvedHe has altered routines to avoid shortness of breathReports one respiratory infection in the last 3 months.He is on no maintenance inhalersAlbuterol use is rareDenies change in cough, no significant mucous productionNo hemoptysis or chest pain.Remains non-compliant with CPAP, he is uninterested in use.Energy levels are fairSleep is restless, he endorses nocturia JUDIT Smith-BC [address], [address], [place], [address], [facility] [employer] 03/26/2023 13:38:39 3 text/html ER again for 1 of his spells Mina Wilson MD [address], [facility] [address], [place], [address], [facility] [employer] [facility] 04/21/2023 11:21:46 4 text/html Patient returns for surgery of the right foot- states he got clearnce but never informed the office. Will need updated H and P clearance and will schedule right bunion surgery due to cont pain of the foot. denies any wounds but has a painful corn to the medial 2nd toe. disp a silicone toe spacer. Turner Johnson DPM [address], [facility] [address], [place], [address], [facility] [employer] [facility] 06/14/2023 15:01:13
--- OUTSIDE RECORDS SUMMARY | 2024-05-24 02:01 | XMS_ITS | Continuity of Care Document ---
Author Organization [employer] Address [address] [place] [address] Care Team Providers Care Insurance Risk Surveyor Name Role Phone Jeremias Mahogany Primary Care [...] Male VITAL SIGNS Date Vital Result Comment 05/18/2023 Inhaled Oxygen Concentration 21.0 % N Temperature 97.1 [degF] N Oxygen Saturation 98 % N Heart Rate 79 /min N Blood Pressure Systolic 130 mm[Hg] N Blood Pressure Diastolic 68 mm[Hg] N Body Height 70 [in_i] N Body Weight 237 [lb_av] N Body Mass Index 34 kg/m2 N RESULTS Data in this section [...]
--- OUTSIDE RECORDS SUMMARY | 2024-05-24 02:01 | XMS_ITS | Continuity of Care Document ---
Author Organization [employer] Address [address] [place] [address] Care Team Providers Care Mini Lab Operator Name Role Phone Louie Cabello Primary Care Provider Unavailabl e VesShannen cortes Primary Care Provider Unavailabl e ALLERGIES, ADVERSE [...] Male VITAL SIGNS Date Vital Result Comment 03/14/2024 Inhaled Oxygen Concentration 21.0 % N Faces Pain Scale 0.0 N Temperature 98.2 [degF] N Oxygen Saturation 97 % N Respiratory Rate 16 /min N Heart Rate 86 /min N Blood Pressure Systolic 138 mm[Hg] N Blood Pressure Diastolic 76 mm[Hg] N Body Height 70 [in_i] N Body Weight 223 [lb_av] N Body Mass Index 32 kg/m2 N RESULTS Data in this section [...]
--- OUTSIDE RECORDS SUMMARY | 2024-05-24 02:04 | XMS_ITS | Encounter Summary ---
Author Organization [facility] Address [address] [place] [address]. [place], [place] [address] [place] [address] Care Team Providers Care Wine Cellar Worker Name Role Phone None, Provider Primary Care Provider Unavaila ble Encounter Details Date Type Department Care Team (Latest Contact Info) Description 09/01/2023 Travel Social History Tobacco Use Types Packs/Day Years Used Date Smoking Tobacco: Former Cigarettes Smokeless Tobacco: Never Sex and Gender Information Value Date Recorded Sex Assigned at Not on file Legal Sex Male 7:56 PM CDT Gender Identity Not on file Sexual Orientation Not on file documented as of this encounter Plan of Treatment Not on file documented as of this encounter Visit Diagnoses Not on filedocumented in this encounter Care Teams Wine Cellar Worker Relationship Specialty Start Date End Date None, Provider, PCP - General UNKNOWN PHYSICIAN SPECIALTY 09/01/23 documented as of this encounter
--- OUTSIDE RECORDS SUMMARY | 2024-05-24 02:04 | XMS_ITS | Encounter Summary ---
Author Organization [facility] Address [address] [place] [address]. [place], [place] [id number] [place] [id number] Care Team Providers Care Public Address System Installer Name Role Phone None, Provider MD Primary Care Provider Unavaila ble Reason for Referral * Imaging (Emergency) - New Request Specialty Diagnoses / Procedures Referred By Contac t Referred To Contact RADIOLOGY Procedures CT HEAD WO CON Randall Doyle MD,PHD [address] [place], [place] [id number] Phone: tel: fax: Referral ID Status Reason Start Date Expiration Date V isits Requested Visits Authorized [id number] New Request 09/01/2023 08/31/2024 1 1 * Imaging (Urgent) - New Request Specialty Diagnoses / Procedures Referred By Contac t Referred To Contact RADIOLOGY Procedures CT ABD+PEL W CON Randall Doyle MD,PHD [address] [place] [id number] Phone: tel: fax: Referral ID Status Reason Start Date Expiration Date V isits Requested Visits Authorized [id number] New Request 09/01/2023 08/31/2024 1 1 Reason for Visit * Reason Comments Diarrhea Encounter Details Date Type Department Care Team (Late st Contact Info) Description 09/01/2023 8:27 PM CDT - 09/02/2023 9:00 AM CDT Emergency [facility] [place] [address] Randall Doyle MD,PHD [address] [place] [id number] Diarrhea Discharge Disposition: Home or Self Care (Routine Discharge) Social History Tobacco Use Types Packs/Day Years Used Date Smoking Tobacco: Former Cigarettes Smokeless Tobacco: Never Tobacco Cessation:Counseling Given: Not Answered Sex and Gender Information Value Date Recorded Sex Assigned at Not on file Legal Sex Male 7:56 PM CDT Gender Identity Not on file Sexual Orientation Not on file documented as of this encounter Last Filed Vital Signs Vital Sign Reading Time Taken Comments Blood Pressure 135/80 09/02/2023 7:09 AM CDT Pulse 90 09/02/2023 7:09 AM CDT Temperature 37.1 ??C (98.7 ??F) 09/01/2023 8:33 PM CD T Respiratory Rate 11 09/02/2023 7:09 AM CDT Oxygen Saturation 94% 09/02/2023 7:09 AM CDT Inhaled Oxygen Concentration - - Weight 103.8 kg (228 lb 13.4 oz) 09/01/2023 8:33 PM CDT Height 175.3 cm (5' 9 ) 09/01/2023 8:33 PM CDT Body Mass Index 33.79 09/01/2023 8:33 PM CDT documented in this encounter Discharge Instructions * Discharge Instructions* Randall Doyle MD,PHD - 09/02/2023 5:42 AM CDT Follow-up with your neurologist this week for further adjustments of your medications. Your dose ofDepakote has been increased to 2000mg twice daily. PLEASE DO NOT DRIVE, OPERATE HEAVY MACHINERY, OR BE SOLELY RESPONSIBLE FOR THE CARE OF ANOTHER HUMAN BEING WHO IS INCAPABLE OF CARING FOR THEMSELVES (EXAMPLE GIVEN, INFANTS OR THE EXTREME ELDERLY) UNTIL CLEARED TO DO SO BY A NEUROLOGIST. IT IS ALSO INADVISABLE TO SWIM, HIKE, RIDE A BICYCLE, OR PARTICIPATE IN ANY ACTIVITY WHERE YOU MAY BE SEVERELY INJURED OR IF YOU WOULD SUFFER A SEIZURE DURING PARTICIPATION. THESE RESTRICTIONS REMAIN IN FORCE UNTIL CLEARED BY A NEUROLOGIST. * Attachments The following attachments cannot be sent through Care Everywhere. * Diarrhea, Adult ED (Lib[place]) * Epilepsy in adults (Lib[place]) documented in this encounter Medications at Time of Discharge divalproex EC (DEPAKOTE) 500 MG tablet Take 2 tablets (1,000 mg total) by mouth 2 (two) times daily. 120 tablet 09/02/2023 documented as of this encounter Nursing Notes * Keily Choudhary RN - 09/02/2023 9:01 AM CDT Provider discussed today's findings with the patient/family. The patient has been given informationregarding their treatment, follow up and concerning symptoms for which they should seek urgent or emergent attention. I have expressed the the importance of seeking attention should there be any new,or worsening symptoms or persistence of their condition. Patient verbalized understanding of the discharge instructions. * Keily Choudhary RN - 09/02/2023 9:00 AM CDT Pt's friend Lurdes returned call. She will pick pt up from [facility]. * Keily Choudhary RN - 09/02/2023 8:22 AM CDT Called pt's friend Lurdes ; no answer; left vm * Keily Choudhary RN - 09/02/2023 7:33 AM CDT Called brother. No answer. Left vm. documented in this encounter ED Notes * Cathryn Hodgson RN - 09/02/2023 6:30 AM CDT Brother called. No answer. * Cathryn Hodgson RN - 09/02/2023 5:54 AM CDT Brother called for discharge home. No response, left voicemail. * Radha Lacy RN - 09/01/2023 11:55 PM CDT RN Shanta to bedside to administer ordered medication, patient became unresponsive not answering questions or following commands. This RN to bedside to assist. MD Doyle to bedside to assess patient. Unresponsive episode lasted approximately 1 minute. See MAR. Patient now alert and stating he hears ringing in his ears, but denies this being similar to past auras. Patient Assisted to bed. VS as charted. * Randall Doyle MD,PHD - 09/01/2023 11:54 PM CDT EMERGENCY DEPARTMENT ENCOUNTER Chief Complaint Chief Complaint Patient presents with Diarrhea History of Present Illness 58-year-old man presenting with a chief complaint of diarrhea. He has had the diarrhea for approximately 10 days. It is somewhat improving but still present. He has taken Imodium with minimal relief.It is described as watery. There is no blood in it. He said no fever or vomiting since this started. He does have mild diffuse abdominal pain associated with that. The patient reports a history of frequent passing out. He has a history of a seizure disorder though believes that he has not had a seizure in many years. This is maintained with Depakote. Patient had an event in the waiting room where he became unresponsive. He additionally has a second episode inthe emergency department once assigned to her room. Physical Exam Filed Vitals: 09/01/23 2045 09/01/23 2100 09/01/23 2215 09/01/23 2230 BP: 133/75 (!) 140/78 138/83 134/80 Pulse: 85 81 77 80 Resp: 13 15 17 14 Temp: TempSrc: SpO2: 99% 97% 97% 99% Weight: Height: CONSTITUTIONAL: Patient is awake, alert, in no acute distress, conversant HEAD AND FACE: Normocephalic, atraumatic EYES: Normal sclera, extraocular motions grossly normal NECK: Supple, no obvious asymmetry CARDIOVASCULAR: Regular rate and rhythm RESPIRATORY: No respiratory distress or tachypnea, no wheezing or crackles ABDOMEN: Soft, nontender, nondistended, NEUROLOGIC: GCS 15, CN2-12 grossly intact, moves all extremities EXTREMITIES: Warm, no edema Diagnostic Studies / Procedures ELECTROCARDIOGRAMS: EKG, TIME 2252 Rate 77, normal sinus rhythm, no ectopy, intraventricular conduction delay, left axis deviation, borderline prolonged NC, no ST elevations Interpretation by me: no acute ischemic changes Rhythm strip interpreted by me: Rate 77, normal sinus rhythm, no ectopy LABORATORY STUDIES: Results for orders placed or performed during the hospital encounter of 09/01/23 CBC W/DIFF AUTOMATED Result Value Ref Range WBC 5.78 4.5 - 11.0 x10'3/uL RBC 4.39 (L) 4.70 - 6.10 x10'6/uL HGB 13.6 (L) 14.0 - 18.0 G/DL HCT 41.5 (L) 43.0 - 54.0 % MCV 94.5 (H) 80.0 - 94.0 FL MCH 31.0 27.0 - 31.0 PG MCHC 32.8 32.0 - 36.0 G/DL RDW 13.4 11.5 - 14.5 % PLT 189 130 - 400 x10'3/uL MPV 9.8 9.3 - 12.2 FL DIFFERENTIAL TYPE AUTOMATED DIFFERENTIAL NEUTROPHILS 45.3 % LYMPHOCYTES 39.1 % MONOCYTES 11.8 % EOSINOPHILS 2.6 % BASOPHILS 0.5 % IMMATURE GRANS 0.7 % ABS. NEUTROPHILS 2.62 1.80 - 7.70 x10'3/uL ABS. LYMPHOCYTES 2.26 1.00 - 4.80 x10'3/uL ABS. MONOCYTES 0.68 0.30 - 0.82 x10'3/uL ABS. EOSINOPHILS 0.15 0.04 - 0.54 x10'3/uL ABS. BASOPHILS 0.03 0.01 - 0.08 x10'3/uL ABS. IMMATURE GRANULOCYTES 0.04 0.00 - 0.49 x10'3/uL COMPREHENSIVE METABOLIC PANEL Result Value Ref Range GLUCOSE 194 (H) 70 - 99 MG/DL BUN 16 7 - 18 MG/DL CREATININE S/P/B 0.92 0.7 - 1.3 MG/DL SODIUM S/P/B 138 136 - 145 MMOL/L POTASSIUM S/P/B 3.5 3.5 - 5.1 MMOL/L CHLORIDE S/P/B 109 (H) 100 - 108 MMOL/L CO2 23.7 21 - 32 MMOL/L CALCIUM S/P/B 9.3 8.5 - 10.1 MG/DL BILIRUBIN TOTAL S/P/B 0.4 0.2 - 1.2 MG/DL TOTAL PROTEIN S/P/B 7.2 6.4 - 8.2 G/DL ALBUMIN S/P/B 3.5 3.4 - 5.0 G/DL AST 46 (H) 15 - 37 U/L ALT 43 16 - 60 U/L ALKALINE PHOSPHATASE S/P/B 87 50 - 136 U/L ANION GAP 5.3 5 - 15 MMOL/L BUN CREATININE RATIO 17.3 6 - 26 A/G RATIO 0.9 (L) 1.0 - 2.0 RATIO GFR ESTIMATE >90 >90 ML/MIN/1.73 M2 LIPASE Result Value Ref Range LIPASE 43 13 - 75 UNITS/L URINALYSIS, AUTO, COMPLETE Result Value Ref Range Specimen Type URINE CLEAN CATCH COLOR (U) LIGHT YELLOW TRANSPARENCY CLEAR SPECIFIC GRAVITY (U) 1.028 1.001 - 1.030 U PH 5.5 5.0 - 9.0 LEUKOCYTES (U) NEGATIVE NEGATIVE NITRITES NEGATIVE NEGATIVE PROTEIN RANDOM (U) NEGATIVE <30 MG/DL GLUCOSE (U) >1000 (A) NORMAL MG/DL KETONES (U) NEGATIVE NEGATIVE MG/DL UROBILINOGEN NORMAL NORMAL MG/DL BILIRUBIN (U) NEGATIVE NEGATIVE MG/DL BLOOD (U) NEGATIVE NEGATIVE CULTURE & SENSITIVITY INDICATED? CULTURE IS NOT INDICATED MUCUS RARE /LPF RBC/HPF 1 <6 /HPF TROPONIN, QUANT Result Value Ref Range TROPONIN I HIGH SENSITIVITY 5 <79 ng/L MAGNESIUM Result Value Ref Range MAGNESIUM 2.0 1.8 - 2.4 MG/DL VALPROIC ACID Result Value Ref Range VALPROIC ACID 13.7 (L) 50 - 100 MCG/ML DOSE UNKNOWN DRUG SCREEN RAPID Result Value Ref Range AMPHETAMINE (U) NEGATIVE NEGATIVE BARBITURATES SCREEN (U) NEGATIVE NEGATIVE BENZODIAZEPINES SCREEN (U) NEGATIVE NEGATIVE CANNABINOIDS SCREEN (U) NEGATIVE NEGATIVE COCAINE METABOLITES (U) NEGATIVE NEGATIVE METHADONE (U) NEGATIVE NEGATIVE OPIATE SCREEN (U) NEGATIVE NEGATIVE PHENCYCLIDINE PCP (U) NEGATIVE NEGATIVE CREATININE (U) 75.7 39 - 259 MG/DL IMAGING STUDIES CT HEAD WO CON Final Result by User, [id number] (09/01 0115) CT brain without contrast INDICATION: Seizure disorder. COMPARISON: None. TECHNIQUE: Axial, coronal and sagittal noncontrast images from the skull base through the vertex. Radiation dose reduction technique(s) were used. FINDINGS: The study is somewhat motion degraded. Right temporal craniotomy is noted with right temporal encephalomalacia versus resection cavity. No mass, hemorrhage or acute infarct is identified. There is mild parenchymal volume loss. No extra-axial hematoma. Normal driver-white differentiation. No acute bony abnormality is seen. Visualized paranasal sinuses and mastoid air cells are well aerated. IMPRESSION: No acute intracranial abnormality. Right temporal craniotomy and encephalomalacia noted. Mild parenchymal volume loss. Referred By: Interpreted By: Júnior Alegria MD, 09/02/2023 1:[address] ABD+PEL W CON Final Result by User, [id number] (09/01 0033) EXAMINATION: CT ABDOMEN/PELVIS WITH CONTRAST INDICATION: Diffuse abdominal pain associated with a syncopal episode. COMPARISON: None available. TECHNIQUE: Computed tomography of the abdomen, and pelvis was performed after administration of intravenous contrast, 100 mL of Isovue 370, without immediate complication, according to routine protocol. Radiation dose reduction technique(s) were used FINDINGS: Lower Chest: Lung bases are clear. No cardiomegaly or pericardial effusion. Upper abdominal organs: The liver, spleen, pancreas, gallbladder, biliary tree, adrenal glands, and kidneys are normal. Vascular: The abdominal aorta is normal in caliber. Lymph nodes: No retroperitoneal, mesenteric, or inguinal lymphadenopathy. Gastrointestinal: No bowel obstruction. Equivocal bowel wall thickening of the proximal transverse colon. The associated vasa recta is mildly prominent and there is multifocal tiny adjacent lymph nodes. No significant pericolonic inflammatory stranding. The appendix is normal. Miscellaneous: No free intraperitoneal air or ascites. Pelvis: No free pelvic fluid. The urinary bladder is incompletely distended, but grossly normal. The prostate is unremarkable. MSK: No acute osseous abnormality or destructive bone lesions. Left direct inguinal hernia containing only fat. IMPRESSION: 1. Findings involving the proximal and mid aspect of the transverse colon which are equivocal for mild colitis. 2. Left indirect inguinal hernia containing only fat. Referred By: Interpreted By: Aditya Munguia MD, 09/02/2023 12:21 AM ED Course / Medical Decision Making Patient presenting with a chief complaint of diarrhea I reviewed the patient's labs, which are significant for a subtherapeutic valproic acid level. His CMP is notable for moderate hyperglycemia. His CBC is notable for mild macrocytic anemia. A urine drug screen is negative. I reviewed the radiologist's interpretation of the patient's radiologic diagnostics which is significant for changes suggestive of mild colitis with an incidental finding of a left inguinal hernia. I independently reviewed the patient's EKG, my interpretation is above. I additionally interpreted the patient's rhythm strip, as above I interpreted the patient's pulse oximeter at rest, which is 94% on room air, which is normal and determined that this patient is not hypoxic I interpreted the patient's secured entrance monitor as showing a sinus rhythm and hemodynamic stability Medication management: Lorazepam was administered when seizure-like activity was witnessed and was successfully aborted Maalox and ondansetron were administered for symptomatic relief of GI symptoms After a discussion with the pharmacist, the patient is loaded with 1500 mg valproic acid and his maintenance dose increased from 1500 mg to 2000 mg a day. Following a postictal period and the night of rest, the patient had returned to his mental status baseline. He is instructed to follow-up with his neurologist this week. I have instructed him to not drive and provided him with other seizure precautions to avoid putting himself or others at risk of harm. In regards to his diarrhea, he reports that is spontaneously improving. CT imaging only shows mild transverse colitis. This will likely spontaneously resolve given his course. Clinical Impression Diarrhea (Primary) Recurrent seizures ([facility]) Disposition: Discharge home Patient provided with printed and verbal discharge care instructions and was instructed to return to the emergency department immediately with worsening symptoms or new worrisome symptoms. Patient was instructed to follow-up with primary care physician and neurologist within 1 week for further evaluation and treatment. Diagnoses & treatment discussed with patient Patient expressed understanding and agreed. Randall Doyle MD,PHD 09/04/23 0024 * Radha Lacy RN - 09/01/2023 11:54 PM CDT PT sitting in chair near bedside, requested that pt move over to stretcher. Pt persistent that he is not getting in the stretcher and wishes to stay in chair, explained to pt concern for him falling out of chair, pt continues to decline. * Shanta Tamayo RN - 09/01/2023 8:30 PM CDT Patient presents to ED for diarrhea for 5 days, taking immodium without relief. Patient states he has been having some nausea. States he has been passing out at home. Patient rolled back to triage room after having a near syncopal episode in triage, patient was assisted into wheelchair with assistance of triage nurse. Patient alert and oriented x 4 at time of this assistance. Patient denies blood in stool. * Yamilet Clark RN - 09/01/2023 8:29 PM CDT As pt was walking into the triage room, with nurse, pt passed out and started to slip, Tracee WARD, caught and held pt up, along with this nurse, staff brought w/c to pt and pt was eased into the w/c by 2 staff members and pt was going in and out of being alert. documented in this encounter Plan of Treatment Not on file documented as of this encounter Procedures Procedure Name Priority Date/Time Associated Diagnosis Comments CT HEAD WO CON STAT 09/02/2023 1:[address] ABD+PEL W CON STAT 09/01/2023 11:5 0 PM CDT ECG 12-LEAD STAT 09/01/2023 10:52 PM CDT DRUG SCREEN RAPID Routine 09/01/2023 10: 40 PM CDT URINALYSIS, AUTO, COMPLETE STAT 09/01/2023 10:40 PM CDT COMPREHENSIVE METABOLIC PANEL STAT 09/01/2023 8:56 PM CDT CBC W/DIFF AUTOMATED STAT 09/01/2023 8:56 PM CDT VALPROIC ACID Routine 09/01/2023 8:56 PM CDT TROPONIN, QUANT Routine 09/01/2023 8:56 PM CDT MAGNESIUM Routine 09/01/2023 8:56 PM CDT LIPASE STAT 09/01/2023 8:56 PM CDT documented in this encounter Results * CT HEAD WO CON (09/02/2023 1:04 AM CDT) Anatomical Region Laterality Modality Head Computed Tomogra phy 09/02/2023 1:12 AM CDT Impressions 09/02/2023 1:13 AM CDT IMPRESSION: No acute intracranial abnormality. ??Right temporal craniotomy and encephalomalacia noted. ??Mild parenchymal volume loss. Referred By: ?? Interpreted By: Júnior Alegria MD, 09/02/2023 1:12 AM Narrative 09/02/2023 1:[address] brain without contrast INDICATION: Seizure disorder. COMPARISON: None. TECHNIQUE: Axial, coronal and sagittal noncontrast images from the skull base through the vertex. Radiation dose reduction technique(s) were used. FINDINGS: The study is somewhat motion degraded. Right temporal craniotomy is noted with right temporal encephalomalacia versus resection cavity. ??No mass, hemorrhage or acute infarct is identified. ??There is mild parenchymal volume loss. ??No extra-axial hematoma. ??Normal driver-white differentiation. No acute bony abnormality is seen. ??Visualized paranasal sinuses and mastoid air cells are well aerated. Procedure Note Júnior Alegria MD - 09/02/2023 CT brain without contrast INDICATION: Seizure disorder. COMPARISON: None. TECHNIQUE: Axial, coronal and sagittal noncontrast images from the skullbase through the vertex. Radiation dose reduction technique(s) were used. FINDINGS: The study is somewhat motion degraded. Right temporal craniotomy is noted with right temporal encephalomalaciaversus resection cavity. No mass, hemorrhage or acute infarct isidentified. There is mild parenchymal volume loss. No extra-axialhematoma. Normal driver-white differentiation. No acute bony abnormality is seen. Visualized paranasal sinuses andmastoid air cells are well aerated. IMPRESSION: No acute intracranial abnormality. Right temporal craniotomyand encephalomalacia noted. Mild parenchymal volume loss. Referred By: Interpreted By: Júnior Alegria MD, 09/02/2023 1:12 AM Randall Doyle MD,PHD CT Final Resu lt * CT ABD+PEL W CON (09/01/2023 11:50 PM CDT) Anatomical Region Laterality Modality Abdomen Computed Tomogra phy 09/02/2023 12:2 1 AM CDT Impressions 09/02/2023 12:32 AM CDT IMPRESSION: 1. ??Findings involving the proximal and mid aspect of the transverse colon which are equivocal for mild colitis. 2. ??Left indirect inguinal hernia containing only fat. Referred By: ?? Interpreted By: Aditya Munguia MD, 09/02/2023 12:21 AM Narrative 09/02/2023 12:32 AM CDT EXAMINATION: CT ABDOMEN/PELVIS WITH CONTRAST INDICATION: Diffuse abdominal pain associated with a syncopal episode. COMPARISON: None available. TECHNIQUE: Computed tomography of the abdomen, and pelvis was performed after administration of intravenous contrast, 100 mL of Isovue 370, without immediate complication, according to routine protocol. Radiation dose reduction technique(s) were used FINDINGS: Lower Chest: Lung bases are clear. No cardiomegaly or pericardial effusion. Upper abdominal organs: The liver, spleen, pancreas, gallbladder, biliary tree, adrenal glands, and kidneys are normal. Vascular: The abdominal aorta is normal in caliber. Lymph nodes: No retroperitoneal, mesenteric, or inguinal lymphadenopathy. Gastrointestinal: No bowel obstruction. ??Equivocal bowel wall thickening of the proximal transverse colon. ??The associated vasa recta is mildly prominent and there is multifocal tiny adjacent lymph nodes. ??No significant pericolonic inflammatory stranding. The appendix is normal. Miscellaneous: No free intraperitoneal air or ascites. Pelvis: No free pelvic fluid. The urinary bladder is incompletely distended, but grossly normal. The prostate is unremarkable. MSK: No acute osseous abnormality or destructive bone lesions. ??Left direct inguinal hernia containing only fat. Procedure Note Aditya Munguia MD - 09/02/2023 EXAMINATION: CT ABDOMEN/PELVIS WITH CONTRAST INDICATION: Diffuse abdominal pain associated with a syncopal episode. COMPARISON: None available. TECHNIQUE: Computed tomography of the abdomen, and pelvis was performedafter administration of intravenous contrast, 100 mL of Isovue 370,without immediate complication, according to routine protocol. Radiationdose reduction technique(s) were used FINDINGS: Lower Chest: Lung bases are clear. No cardiomegaly or pericardialeffusion. Upper abdominal organs: The liver, spleen, pancreas, gallbladder, biliarytree, adrenal glands, and kidneys are normal. Vascular: The abdominal aorta is normal in caliber. Lymph nodes: No retroperitoneal, mesenteric, or inguinallymphadenopathy. Gastrointestinal: No bowel obstruction. Equivocal bowel wall thickeningof the proximal transverse colon. The associated vasa recta is mildlyprominent and there is multifocal tiny adjacent lymph nodes. Nosignificant pericolonic inflammatory stranding. The appendix is normal. Miscellaneous: No free intraperitoneal air or ascites. Pelvis: No free pelvic fluid. The urinary bladder is incompletelydistended, but grossly normal. The prostate is unremarkable. MSK: No acute osseous abnormality or destructive bone lesions. Leftdirect inguinal hernia containing only fat. IMPRESSION: 1. Findings involving the proximal and mid aspect of the transverse colonwhich are equivocal for mild colitis. 2. Left indirect inguinal hernia containing only fat. Referred By: Interpreted By: Aditya Munguia MD, 09/02/2023 12:21 AM us Randall Doyle MD,PHD CT Final Resu lt * ECG 12 lead (09/01/2023 10:52 PM CDT) 09/01/2023 10:5 2 PM CDT Narrative [facility] RAD - 09/03/2023 6:50 AM CDT ?[facility] [place] ? [address] [place] ? Test Date: ?2023-09-01 Pat Name: ? REJI BRANCH ? Department: ?? 41 ? Room: ? [id number] Gender: ? Male ? Outreach Rep: ?? [id number] : ?1965 ? Requested By: DARIEN HEPPERMANN Order Number: [id number] ? Reading MD: ?? Brent Uribe ? Measurements Intervals ?[place] ? Rate: ? 77 ? P: ?57 NC: ? 201 ?QRS: ?-66 QRSD: ? 118 ?T: ?56 QT: ? 404 ? QTc: ?457 ? Interpretive Statements SINUS RHYTHM S1-S2-S3 PATTERN, CONSISTENT WITH PULMONARY DISEASE, RVH, OR NORMAL VARIANT PATTERN CONSISTENT WITH PULMONARY DISEASE INCOMPLETE RIGHT BUNDLE BRANCH BLOCK ??[90+ ms QRS DURATION, TERMINAL R IN V1/V2, 40+ ms S IN I/aVL/V4/V5/V6] LEFT ANTERIOR FASCICULAR BLOCK ??[QRS AXIS <= -45, QR IN I, RS IN II] No previous ECG available for comparison Other ischemic changes, not STEMI Preliminary EKG Interpretation by Randall Doyle M.D. Procedure Note Brent Uribe MD - 09/03/[address] Test Date: 2023-09-01 Pat Name: REJI BRANCH Department: 41 Room: [place] [address] Gender: Male Outreach Rep: [id number] : 1965 Requested By: DARIEN GONZALES Order Number: [id number] Reading MD: Brent Uribe Measurements Intervals [place] Rate: 77 P: 57 NC: 201 QRS: -66 QRSD: 118 T: 56 QT: 404 QTc: 457 Interpretive Statements SINUS RHYTHM S1-S2-S3 PATTERN, CONSISTENT WITH PULMONARY DISEASE, RVH, OR NORMALVARIANT PATTERN CONSISTENT WITH PULMONARY DISEASE INCOMPLETE RIGHT BUNDLE BRANCH BLOCK [90+ ms QRS DURATION, TERMINAL RIN V1/V2, 40+ ms S IN I/aVL/V4/V5/V6] LEFT ANTERIOR FASCICULAR BLOCK [QRS AXIS <= -45, QR IN I, RS IN II] No previous ECG available for comparison Other ischemic changes, not STEMI Preliminary EKG Interpretation by Randall Doyle M.D. us Randall Doyle MD,PHD ECG ORDERABLES Final Resu lt [facility] ([facility]) RAD * DRUG SCREEN RAPID (09/01/2023 10:40 PM CDT) AMPHETAMINE (U) NEGATIVE NEGATIVE 12:23 AM CDT [facility] BARBITURATES SCREEN (U) NEGATIVE NEGATIVE 09/02/2023 12:23 AM CDT [facility] BENZODIAZEPINES SCREEN (U) NEGATIVE NEGATIVE 09/02/2023 12:23 AM CDT [facility] CANNABINOIDS SCREEN (U) NEGATIVE NEGATIVE 09/02/2023 12:23 AM CDT [facility] COCAINE METABOLITES (U) NEGATIVE NEGATIVE 09/02/2023 12:23 AM CDT [facility] METHADONE (U) NEGATIVE NEGATIVE 09/02/2023 12:23 AM CDT [facility] OPIATE SCREEN (U) NEGATIVE NEGATIVE 024 12:23 AM CDT [facility] PHENCYCLIDINE PCP (U) NEGATIVE NEGATIVE 09/02/2023 12:23 AM CDT [facility] Comment: NOTE: RESULTS OF THIS DRUG SCREEN SHOULD BE USED FOR MEDICAL PURPOSES ONLY AND NOT FOR LEGAL OR EMPLOYMENT PURPOSES. POSITIVE RESULTS ARE NOT CONFIRMED. MEDICATIONS CONTAINING EPHEDRINE MAY CAUSE FALSE POSITIVE AMPHETAMINE CALL , LAB, TO REQUEST CONFIRMATION TESTING. IF CREATININE IS <40 mg/dL. ??RECOLLECTION IS SUGGESTED. AMPHETAMINE- ?500 NG/ML BARBITURATE- ?200 NG/ML BENZODIAZEPINES- ??200 NG/ML THC- ? 50 NG/ML COCAINE- ?150 NG/ML METHADONE- ?300 NG/ML OPIATE- ? 300 MG/ML PCP- ? 25 NG/ML CREATININE (U) 75.7 39 - 259 MG/DL 09/02/2023 12:23 AM CDT [facility] URINE SPECIMEN / Unknown 09/01/2023 10:40 PM CDT us Randall Doyle MD,PHD URINE ORDERABLES Final Res ult [facility] [address] [place] [address], [place] [phone] * (ABNORMAL) URINALYSIS, AUTO, COMPLETE (09/01/2023 10:40 PM CDT) SPECIMEN TYPE URINE CLEAN CATCH 09/01/2023 10:42 PM T [facility] COLOR (U) LIGHT YELLOW 09/01/2023 11:09 PM T [facility] TRANSPARENCY CLEAR 09/01/2023 11:09 PM T [facility] SPECIFIC GRAVITY (U) 1.028 1.001 - 1.030 09/01/2023 11:09 PM T [facility] U PH 5.5 5.0 - 9.0 09/01/2023 11:09 PM T [facility] LEUKOCYTES (U) NEGATIVE NEGATIVE 09/01/2023 11:09 PM T [facility] NITRITES NEGATIVE NEGATIVE 09/01/2023 11:09 PM T [facility] PROTEIN RANDOM (U) NEGATIVE <30 MG/DL 09/01/2023 11:09 PM T [facility] GLUCOSE (U) >1000(A) NORMAL MG/DL 09/01/2023 11:09 PM T [facility] KETONES MG/DL (U) NEGATIVE NEGATIVE MG/DL 09/01/2023 11:09 PM T [facility] UROBILINOGEN NORMAL NORMAL MG/DL 09/01/2023 11:09 PM T [facility] BILIRUBIN (U) NEGATIVE NEGATIVE MG/DL 09/01/2023 11:09 PM T [facility] BLOOD (U) NEGATIVE NEGATIVE 09/01/2023 11:09 PM T [facility] CULTURE & SENSITIVITY INDICATED? CULTURE IS NOT INDICATED 09/01/2023 11:09 PM T [facility] MUCUS RARE /LPF 09/01/2023 11:09 PM T [facility] RBC/HPF 1 <6 /HPF 09/01/2023 11:09 PM CDT [facility] URINE SPECIMEN OBTAINED BY CLEAN CATCH PROCEDURE / Unknown 09/01/2023 10:40 PM CDT us Randall Doyle MD,PHD URINE ORDERABLES Final Res ult Performing Organization Address [facility] de Phone Number [facility] [address] [place] [phone], * (ABNORMAL) VALPROIC ACID (09/01/2023 8:56 PM CDT) VALPROIC ACID 13.7(L) 50 - 100 MCG/ML 09/02/2023 2:44 AM CDT [facility] Comment: ?THERAPEUTIC: 50-100 ?TOXIC: >150 DOSE UNKNOWN 09/01/2023 11:49 PM CDT [facility] 09/01/2023 8:56 PM CDT us Randall Doyle MD,PHD LABORATORY Final Resu lt Performing Organization Address [facility] de Phone Number [facility] [address] [place] [address], * MAGNESIUM (09/01/2023 8:56 PM CDT) MAGNESIUM 2.0 1.8 - 2.4 MG/DL 09/02/2023 12:58 AM CDT [facility] 09/01/2023 8:56 PM CDT us Randall Doyle MD,PHD LABORATORY Final Resu lt Performing Organization Address [facility] Co de Phone Number [facility] [address] [place] [address], * TROPONIN, QUANT (09/01/2023 8:56 PM CDT) TROPONIN I HIGH SENSITIVITY 5 <79 ng/L 09/02/2023 12:58 AM CDT [facility] Comment: HIGH DOSES OF BIOTIN, TROPONIN-SPECIFIC AUTOANTIBODIES, AND ANTIBODY THERAPY CONTAINING HAMA MAY INTERFERE WITH THIS TEST RESULT. CORRELATION TO CLINICAL HISTORY AND PRESENTATION RECOMMENDED. 09/01/2023 8:56 PM CDT Randall Doyle MD,PHD LABORATORY Final Resu lt Performing Organization Address [facility] Co de Phone Number [facility] [address] [place] [id number], [place] [phone] * LIPASE (09/01/2023 8:56 PM CDT) Pathologist [facility] [place] LIPASE 43 13 - 75 UNITS/L 09/01/2023 9:32 PM CDT [facility] 09/01/2023 8:56 PM CDT Randall Doyle MD,PHD LABORATORY Final Resu lt Performing Organization Address City/[facility]/ZIP Co de Phone Number [facility] [address] [place] [address], * (ABNORMAL) COMPREHENSIVE METABOLIC PANEL (09/01/2023 8:56 PM CDT) GLUCOSE 194(H) 70 - 99 MG/DL 09/01/2023 9:32 PM CDT [facility] BUN 16 7 - 18 MG/DL 09/01/2023 9:32 PM CDT [facility] CREATININE S/P/B 0.92 0.7 - 1.3 MG/DL 09/01/2023 9:32 PM CDT [facility] SODIUM S/P/B 138 136 - 145 MMOL/L 09/01/2023 9:32 PM CDT [facility] POTASSIUM S/P/B 3.5 3.5 - 5.1 MMOL/L 09/01/2023 9:32 PM CDT [facility] CHLORIDE S/P/B 109(H) 100 - 108 MMOL/L 09/01/2023 9:32 PM CDT [facility] CO2 23.7 21 - 32 MMOL/L 09/01/2023 9:32 PM CDT [facility] CALCIUM S/P/B 9.3 8.5 - 10.1 MG/DL 09/01/2023 9:32 PM CDT [facility] BILIRUBIN TOTAL S/P/B 0.4 0.2 - 1.2 MG/DL 09/01/2023 9:32 PM CDT [facility] Comment: THIS ASSAY IS NOT RECOMMENDED FOR PATIENTS UNDERGOING TREATMENT WITH ELTROMBOPAG DUE TO THE POTENTIAL FOR FALSELY ELEVATED RESULTS. TOTAL PROTEIN S/P/B 7.2 6.4 - 8.2 G/DL 09/01/2023 9:32 PM CDT [facility] ALBUMIN S/P/B 3.5 3.4 - 5.0 G/DL 09/01/2023 9:32 PM CDT [facility] AST 46(H) 15 - 37 U/L 09/01/2023 9:32 PM CDT [facility] ALT 43 16 - 60 U/L 09/01/2023 9:32 PM CDT [facility] ALKALINE PHOSPHATASE S/P/B 87 50 - 136 U/L 09/01/2023 9:32 PM CDT [facility] ANION GAP 5.3 5 - 15 MMOL/L 09/01/2023 9:32 PM CDT [facility] BUN CREATININE RATIO 17.3 6 - 26 09/01/2023 9:32 PM CDT [facility] A/G RATIO 0.9(L) 1.0 - 2.0 RATIO 09/01/2023 9:32 PM CDT [facility] GFR ESTIMATE >90 >90 ML/MIN/1.7 3 M2 09/01/2023 9:32 PM CDT [facility] Comment: NOTE: eGFR is not calculated for patients <18 years of age. This is an estimated GFR calculation using the new CKD EPI creatinine equation without race and so does not require a correction factor for race. This estimated GFR should not be used for calculating drug doses. 09/01/2023 8:56 PM CDT us Randall Doyle MD,PHD LABORATORY Final Resu lt [facility] [address] [place] [address], [place] [phone] * (ABNORMAL) CBC W/DIFF AUTOMATED (09/01/2023 8:56 PM CDT) WBC 5.78 4.5 - 11.0 x10'3/uL 09/01/2023 9:10 PM CDT [facility] RBC 4.39(L) 4.70 - 6.10 x10'6/uL 09/01/2023 9:10 PM CDT [facility] HGB 13.6(L) 14.0 - 18.0 G/DL 09/01/2023 9:10 PM CDT [facility] HCT 41.5(L) 43.0 - 54.0 % 09/01/2023 9:10 PM CDT [facility] MCV 94.5(H) 80.0 - 94.0 FL 09/01/2023 9:10 PM CDT [facility] MCH 31.0 27.0 - 31.0 PG 09/01/2023 9:10 PM CDT [facility] MCHC 32.8 32.0 - 36.0 G/DL 09/01/2023 9:10 PM CDT [facility] RDW 13.4 11.5 - 14.5 % 09/01/2023 9:10 PM CDT [facility] PLT 189 130 - 400 x10'3/uL 09/01/2023 9:10 PM CDT [facility] MPV 9.8 9.3 - 12.2 FL 09/01/2023 9:10 PM CDT [facility] DIFFERENTIAL TYPE AUTOMATED DIFFERENTIAL 09/01/2023 9:10 PM CDT [facility] NEUTROPHILS % 45.3 % 09/01/2023 9:10 PM CDT [facility] LYMPHOCYTES % 39.1 % 09/01/2023 9:10 PM CDT [facility] MONOCYTES % 11.8 % 09/01/2023 9:10 PM CDT [facility] EOSINOPHILS 2.6 % 09/01/2023 9:10 PM CDT [facility] BASOPHILS 0.5 % 09/01/2023 9:10 PM CDT [facility] IMMATURE GRANS % 0.7 % 09/01/19 9:10 PM CDT [facility] ABS. NEUTROPHILS 2.62 1.80 - 7.70 x10'3/uL 09/01/2023 9:10 PM CDT [facility] ABS. LYMPHOCYTES 2.26 1.00 - 4.80 x10'3/uL 09/01/2023 9:10 PM CDT [facility] ABS. MONOCYTES 0.68 0.30 - 0.82 x10'3/uL 09/01/2023 9:10 PM CDT [facility] ABS. EOSINOPHILS 0.15 0.04 - 0.54 x10'3/uL 09/01/2023 9:10 PM CDT [facility] ABS. BASOPHILS 0.03 0.01 - 0.08 x10'3/uL 09/01/2023 9:10 PM CDT [facility] ABS. IMMATURE GRANULOCYTES 0.04 0.00 - 0.49 x10'3/uL 09/01/2023 9:10 PM CDT [facility] 09/01/2023 8:56 PM CDT us Randall Dolye MD,PHD LABORATORY Final Resu lt [facility] [address] [place] [address], [place] [phone] documented in this encounter Visit Diagnoses Diagnosis Diarrhea- Primary Recurrent seizures ([facility]) Other forms of epilepsy and recurrent seizures without mention of intractable epilepsy documented in this encounter Administered Medications Inactive Administered Medications - up to 3 most recent administrations Medication Order MAR Action Action Date Dose Rate Site iopamidol (ISOVUE-370) 76 % injection 100 mL 100 mL, Intravenous, IMG once as needed, Contrast, 1 dose, Starting on 09/01/23 at 2350, Until 09/01/23 at 2350 Given 09/01/2023 11:50 PM CDT 100 mLs Left Arm lactated ringers bolus infusion 1,000 mL 1,000 mL, Intravenous, Administer over 30 Minutes, Once, 1 dose, On 09/01/23 at 2315 New Bag 09/01/2023 11:55 PM CDT 1,000 mLs LORazepam (ATIVAN) 2 mg/mL injection 1 dose, Starting on 09/01/23 at 2353, Until 09/01/23 at 2359, Created by cabinet override For IV use, further dilute with an equal volume of saline. Do not exceed a rate of 2 mg/min. LORazepam (ATIVAN) injection 2 mg 2 mg, Intravenous, Once, 1 dose, On 09/02/23 at 0000, For IV use, further dilute with an equal volume of saline. Do not exceed a rate of 2 mg/min. Given 09/01/2023 11:59 PM CDT 2 mg [id number] one (MYLANTA MAXIMUM STRENGTH) 1152-1143-034 mg/30mL suspension 30 mL, Oral, Once, 1 dose, On 09/01/23 at 2315, Shake Well Given 09/01/2023 11:57 PM CDT 30 mLs ondansetron (ZOFRAN-ODT) disintegrating tablet 4 mg 4 mg, Oral, Once, 1 dose, On 09/01/23 at 2315 Given 09/01/2023 11:57 PM CDT 4 mg valproate (DEPACON) 1,500 mg in sodium chloride 0.9 % 50 mL IVPB 1,500 mg, Intravenous, at 50 mL/hr, Once, 1 dose, On 09/02/23 at 0330, HAZARDOUS MEDICATION: wear single chemotherapy approved gloves. New Bag 09/02/2023 3:31 AM CDT 1,500 mg 50 mL/hr documented in this encounter Active and Recently Administered Medications Times are shown in CDT. Scheduled Medication Order 08/31/2023 09/01/2023 09/02/2023 lactated ringers bolus infusion 1,000 mL (COMPLETED) 1,000 mL, Intravenous, Administer over 30 Minutes, Once, 1 dose, On 09/01/23 at 2315 2355 (New Bag - Provider: Shanta Tamayo, SYLVIA) 0037 (Infusion Stop Time - Provider: Radha Lacy RN) LORazepam (ATIVAN) injection 2 mg (COMPLETED) 2 mg, Intravenous, Once, 1 dose, On 09/02/23 at 0000, For IV use, further dilute with an equal volume of saline. Do not exceed a rate of 2 mg/min. 2359 (Given - Provider: Shanta Tamayo, SYLVIA) [id number]-aloofhdlg ne (MYL[employer]A MAXIMUM [employer]ENGTH) [id number] mg/30mL suspension (COMPLETED) 30 mL, Oral, Once, 1 dose, On 09/01/23 at 2315, Shake Well 2357 (Given - Provider: Shanta Tamayo, SYLVIA) ondansetron (ZOFRAN-ODT) disintegrating tablet 4 mg (COMPLETED) 4 mg, Oral, Once, 1 dose, On 09/01/23 at 2315 2357 (Given - Provider: Shanta Tamayo, SYLVIA) valproate (DEPACON) 1,500 mg in sodium chloride 0.9 % 50 mL IVPB (COMPLETED) 1,500 mg, Intravenous, at 50 mL/hr, Once, 1 dose, On 09/02/23 at 0330, HAZARDOUS MEDICATION: wear single chemotherapy approved gloves. 0331 (New Bag - Provider: Michael Ayala, RN)0448 (Infusion Stop Time - Provider: Cathryn Hodgson, SYLVIA) PRN Medication Order 08/31/2023 09/01/2023 09/02/2023 iopamidol (ISOVUE-370) 76 % injection 100 mL (COMPLETED) 100 mL, Intravenous, IMG once as needed, Contrast, 1 dose, Starting on 09/01/23 at 2350, Until 09/01/23 at 2350 2350 (Given - Provider: Mikal Byrd, RTR) documented in this encounter Care Teams Public Address System Installer Relationship Specialty Start Date End Date None, Provider, MD PCP - General UNKNOWN PHYSICIAN SPECIALTY 09/01/23 documented as of this encounter
--- OUTSIDE RECORDS SUMMARY | 2024-05-24 02:04 | XMS_ITS | Clinical Summary ---
Author Organization [facility] Address [address] [place] [address]. [place] [address] [place] [address] Care Team Providers Care Senior Investment Analyst Name Role Phone None, Provider MD Primary Care Provider Unavaila ble Allergies No known active allergies Medications divalproex EC (DEPAKOTE) 500 MG tablet Take 2 tablets (1,000 mg total) by mouth 2 (two) times daily. 120 tablet 09/02/2023 Active Social History Tobacco Use Types Packs/Day Years Used Date Smoking Tobacco: Former Cigarettes Smokeless Tobacco: Never Tobacco Cessation:Counseling Given: Not Answered Sex and Gender Information Value Date Recorded Sex Assigned at Not on file Legal Sex Male 7:56 PM CDT Gender Identity Not on file Sexual Orientation Not on file Last Filed Vital Signs Vital Sign Reading [...] Mass Index 33.79 09/01/2023 8:33 PM CDT Plan of Treatment Health Maintenance Due Date Last Done Comments Colorectal Cancer Screening Colonoscopy (10 Years) 1964 Annual Physical 02/23/1967 Hepatitis C 02/23/1982 DTaP, Tdap and Td Vaccines (1 - Tdap) 02/23/1983 COVID-19 Vaccine ( season) 2024 05/13/2021, 08/14/2020, 07/17/2020 Influenza Adult (#1) 2024 03/29/2022, 03/02/2021, 02/25/2020, Additional history exists RSV Immunization or 60+ Years (1 - 1-dose 75+ series) 02/23/2039 Pneumococcal Vaccine: Pediatrics (0 to 5 Years) and At-Risk Patients (6 to 64 Years) Aged Out 11/04/2022, 02/26/2015, 01/12/2013 No longer eligible based on patient's age to complete this topic Zoster Vaccines Completed 04/21/2023, 11/04/2022 Meningococcal Vaccine Aged Out No [place] eligible based on patient's age to complete this topic RSV Immunizations Under 20 Months Aged Out No longer eligible based on patient's age to complete this topic Insurance MEDICARE [facility] MEDICAID Care Teams Senior Investment Analyst Relationship Specialty Start Date End Date None, Provider, MD PCP - General UNKNOWN PHYSICIAN SPECIALTY 09/01/23
--- OUTSIDE RECORDS SUMMARY | 2024-05-24 02:04 | XMS_ITS | CONTINUITY OF CARE DOCUMENT ---
Author Name dedrick tse Address Unknown Organization [facility] Address [address] [place] [address] Phone [phone] Care Team Providers Care School Director Name Role Phone Breanna GONZALEZ, Asim Unavailable [phone] MINA COTTO MD Unavailable MINA COTTO MD Unavailable [phone] PROBLEMS Condition Status Date Provider Notes S/P Implantable Loop Recorder-Biotronik ( MRI Safe) active Griselda Chris Dyspnea on exertion active Siddharth Sheffield MD SEIZURE DISORDER active Yulissa Stahlschmidt OBESITY active Yulissa Stahlschmidt Hypercholesterolemia active Panda Milligan SYMPTOM, DIZZINESS AND GIDDINESS completed - Siddharth Sheffield MD SLEEP APNEA-06/23 SLEEP STUDY NEG 05/23 LISA NL completed - Mary Gutierrez NP Sleep apnea , sllep study negative 04/27 active Maggie Grimes MD Syncope active Mary Gutierrez NP HTN essential active Asim Carlos MD CCM e nroll Asthma completed - Osei Gonzalezzaroyce Anemia active Siddharth Sheffield MD Claudication, intermittent active Siddharth austin MD r/o DVT active Siddharth Sheffield MD R/O CAD; active Siddharth Sheffield MD neg cath 06 with pos nuc at that timne Dysphagia active Siddharth Sheffield MD Tobacco use, quit active Siddharth Sheffield MD LEG PAIN active Asim Carlos MD Venous hypertension active Linda Singletary RN Diabetes, Type 2 active Asim Carlos MD Cardiology examination active Asim Carlos MD Fatigue active Osei Walker S/P Medtronic REVEAL/LinQ completed 06/21 - Osei Walker ABD PAIN-05/23 ABD US ECHOGENIC LIVER POSS HEPATIC STEATOSIS completed - Mary Gutierrez STRE[address] 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 CAD05/23 NUC NEG -06/20 NUC NL completed - Kady Sheffield MD ENCOUNTERS Date Type Provider Location Encounter Diag nosis - In-person encounter Office Visit Asim Carlos MD [facility] AsthmaFatigue - In-person encounter Office Visit Asim Carlos MD [facility] Cardiology examination - In-person encounter Office Visit Asim Carlos MD [facility] - In-person encounter Office Visit Asim Carlos MD [facility] - In-person encounter Office Visit Asim Carlos MD [facility] - In-person encounter Office Visit Asim Carlos MD [facility] - In-person encounter Office Visit Kris Noriega MD [facility] S/P Medtronic REVEAL/LinQ - In-person encounter Office Visit Asim Carlos MD [facility] - In-person encounter Office Visit Asim Carlos MD [facility] - In-person encounter Office Visit Asim Carlos MD [facility] - In-person encounter Office Visit Asim Carlos MD [facility] - In-person encounter Office Visit Asim Carlos MD [facility] - In-person encounter Office Visit Long Ferrell MD [facility] - In-person encounter Office Visit Asim Carlos MD [facility] - In-person encounter Office Visit Asim Carlos MD [facility] - In-person encounter Office Visit Asim Carlos MD [facility] - In-person encounter Office Visit Asim Carlos MD [facility] Diabetes, Type 2 - In-person encounter Office Visit Asim Carlos MD [facility] - In-person encounter Office Visit Asim Carlos MD [facility] - In-person encounter Office Visit Asim Carlos MD [facility] - In-person encounter Office Visit Asim Carlos MD [facility] - In-person encounter Office Visit Long Ferrell MD [facility] - In-person encounter Office Visit Asim Carlos MD [facility] - In-person encounter Office Visit Asim Carlos MD [facility] - In-person encounter Office Visit [facility] - In-person encounter Office Visit [facility] - In-person encounter Office Visit Asim Carlos MD [facility] - In-person encounter Office Visit Sahil Beck MD [facility] Venous hypertension - In-person encounter Office Visit Asim Carlos MD [facility] - In-person encounter Office Visit Asim Carlos MD [facility] LEG PAIN - In-person encounter Office Visit Asim Carlos MD [facility] - In-person encounter Office Visit Maggie Grimes MD [facility] Sleep apnea , sllep study negative 04/27 - In-person encounter Office Visit Asim Carlos MD [facility] - In-person encounter Office Visit Siddharth Sheffield MD [facility] SYMPTOM, DIZZINESS AND GIDDINESSCAD1 NUC NEG -06/20 NUC NLSleep apnea , sllep study negative 04/27AnemiaClaudicatio n, intermittentr/o DVTR/O CAD;DysphagiaTobacco use, quit - In-person encounter Office Visit Long Ferrell MD [facility] ABD PAIN-/ ABD US ECHOGENIC LIVER POSS HEPATIC STEATOSISSleep apnea , sllep study negative 04/27SyncopeHTN essential - In-person encounter Office Visit Long Ferrell MD [facility] - In-person encounter Office Visit Long Ferrell MD [facility] - In-person encounter Office Visit Long Ferrell MD [facility] SLEEP APNEA-2 SLEEP STUDY NEG 05/23 LISA NL - In-person encounter Office Visit Long Ferrell MD [facility] VITAL SIGNS Date Observation Value Provider Body Mass Index (Ratio) 33.05 kg/m2 Osei Walker blood pressure, diastolic 71 mm[Hg] Thuy Darling blood pressure, systolic 116 mm[Hg] Lina Darling oxygen saturation, oximetry 90 % Gem Darling pulse rate 97 /min Gem Darling respiratory rate E&M 12 /min Gem Darling weight E&M 237 [lb_av] Gem Darling height E&M 71 [in_i] Gem Darling blood pressure, cuff size regular An eneida Darling Body Mass Index (Ratio) 32.21 kg/m2 Lisa ssa Puhse blood pressure, diastolic 68 mm[Hg] Li nkLogic blood pressure, systolic 112 mm[Hg] Barbara kLog pulse rate 84 /min Claudette Wilson blood pressure, cuff size regular Jason Wilson blood pressure, diastolic 68 mm[Hg] Jason Wilson blood pressure, systolic 112 mm[Hg] Zeke rosado Wilson oxygen saturation, oximetry 98 % Claudette Wilson respiratory rate E&M 12 /min Claudette Wilson weight E&M 231 [lb_av] Claudette Wilson height E&M 71 [in_i] Claudette Wilson Body Mass Index (Ratio) 31.80 kg/m2 Clay Carlos MD blood pressure, cuff size regular Jose Ramon devlin blood pressure, diastolic 67 mm[Hg] Jose Ramon rret blood pressure, systolic 108 mm[Hg] Dinesh morley pulse rate 83 /min Dipak oxygen saturation, oximetry 96 % Dipak respiratory rate E&M 16 /min Dipak weight E&M 228 [lb_av] Dipak papa y height E&M 71 [in_i] Dipak papa y Body Mass Index (Ratio) 33.61 kg/m2 Clay Carlos MD blood pressure, cuff size regular claus blood pressure, diastolic 74 mm[Hg] Jose Ramon claus blood pressure, systolic 116 mm[Hg] Dinesh morley pulse rate 86 /min Dipak y respiratory rate E&M 12 /min Dipak oxygen saturation, oximetry 95 % Dipak weight E&M 241 [lb_av] Dipak y height E&M 71 [in_i] Dipak y Body Mass Index (Ratio) 32.63 kg/m2 Clay Carlos MD pulse rate 78 /min Mary Moyer blood pressure, diastolic 60 mm[Hg] nicola Moyer blood pressure, systolic 100 mm[Hg] She alexismasha Moyer respiratory rate E&M 20 /min Mary Moyer oxygen saturation, oximetry 97 % Mary Moyer weight E&M 234 [lb_av] Mary Moyer blood pressure, cuff size regular nicola Moyer height E&M 71 [in_i] Mary Moyer Body Mass Index (Ratio) 32.69 kg/m2 Clay Carlos MD blood pressure, cuff size regular nicola Moyer blood pressure, diastolic 73 mm[Hg] nicola Moyer blood pressure, systolic 118 mm[Hg] She alexismasha Moyer oxygen saturation, oximetry 98 % Mary Moyer respiratory rate E&M 18 /min Mary Moyer pulse rate 90 /min Mary Moyer weight E&M 234.4 [lb_av] Mary Moyer height E&M 71 [in_i] Mary Moyer Body Mass Index (Ratio) 32.35 kg/m2 Joesph Noriega MD blood pressure, cuff size large Ke rri Suhaseldjustin blood pressure, diastolic 87 mm[Hg] Ke rri Madisonnerusselleldjustin blood pressure, systolic 132 mm[Hg] Venessa kang Domingofabicarringtonrusselleldjustin oxygen saturation, oximetry 96 % Noemi Laneryanrussellcatrachito respiratory rate E&M 16 /min Noemi Fernandes virgilioeldjustin pulse rate 81 /min Noemi Madelin lder weight E&M 232 [lb_av] Noemi Suhase lder height E&M 71 [in_i] Noemi Madelin lder Body Mass Index (Ratio) 32.27 kg/m2 Clay Carlos MD blood pressure, diastolic 72 mm[Hg] St john Jose blood pressure, systolic 116 mm[Hg] Ro Jose oxygen saturation, oximetry 98 % Raquel Jose pulse rate 95 /min Raquel Joes respiratory rate E&M 16 /min Raquel souza weight E&M 231.4 [lb_av] Raquel Jose height E&M 71 [in_i] Raquel Jose Body Mass Index (Ratio) 31.66 kg/m2 Clay Carlos MD blood pressure, diastolic 72 mm[Hg] Sa ra Barragan blood pressure, systolic 132 mm[Hg] Jazmine a Barragan oxygen saturation, oximetry 100 % Marni Barragan respiratory rate E&M 17 /min Marni Si ms pulse rate 85 /min Marni Barragan blood pressure, cuff size regular Sa ra Barragan weight E&M 227 [lb_av] Marni Barragan height E&M 71 [in_i] Marni Barragan Body Mass Index (Ratio) 31.52 kg/m2 Clay Carlos MD blood pressure, cuff size large Ke rri Suzetterussellbrattleboro memorial hospitaljustin blood pressure, diastolic 70 mm[Hg] Ke rri Suhasbrattleboro memorial hospitaljustin blood pressure, systolic 110 mm[Hg] Venessa ri Lucho oxygen saturation, oximetry 94 % Noemi Suhasbrattleboro memorial hospitaljustin respiratory rate E&M 14 /min Noemi Fernandes shayyenerussellchi [facility] pulse rate 123 /min Noemi Madelin [facility] weight E&M 226 [lb_av] Noemi Madelin er height E&M 71 [in_i] Noemi Madelin [facility] Body Mass Index (Ratio) 33.33 kg/m2 Clay Carlos MD blood pressure, diastolic 60 mm[Hg] Jasmyn Panda Mcclain blood pressure, systolic 110 mm[Hg] Selena Marquezsanjana Mcclain oxygen saturation, oximetry 95 % Madhavi Mcclain respiratory rate E&M 16 /min Kristin Mcclain pulse rate 86 /min Madhavi Mohr hay weight E&M 239 [lb_av] Madhavi Mohr [place] height E&M 71 [in_i] Madhavi Mohr [facility] Body Mass Index (Ratio) 33.33 kg/m2 Clay Carlos MD blood pressure, resting Yes Mohamud Harris blood pressure, diastolic 70 mm[Hg] ivan Harris blood pressure, systolic 114 mm[Hg] She chan Harris oxygen saturation, oximetry 96 % Carmelo Harris pulse rate 78 /min Carmelo orr respiratory rate E&M 18 /min Federico Harris weight E&M 239 [lb_av] Carmelo Avina orr height E&M 71 [in_i] Carmelo Avina orr Body Mass Index (Ratio) 33.33 kg/m2 Josh Ferrell MD blood pressure, cuff size regular Cy eunice Wisdom blood pressure, diastolic 70 mm[Hg] Cy eunice Wisdom blood pressure, systolic 122 mm[Hg] Allie ravinder Artis weight E&M 239 [lb_av] Ya Campbel l pulse rate 74 /min Yaravinder Hammondsbel l respiratory rate E&M 16 /min Ya Wisdom oxygen saturation, oximetry 97 % Ya Wisdom height E&M 71 [in_i] Ya Campbel l Body Mass Index (Ratio) 32.49 kg/m2 Clay Carlos MD blood pressure, cuff size large Ke rri Lucho blood pressure, diastolic 60 mm[Hg] Ke rri Domingouenenfshaheeder blood pressure, systolic 120 mm[Hg] Venessa Yepez oxygen saturation, oximetry 97 % Noemi Yepez respiratory rate E&M 16 /min Noemi lucasenesari pulse rate 89 /min Noemi Yusuf lder weight E&M 233 [lb_av] Noemi Madisonnemalvin lder height E&M 71 [in_i] Noemi Madisonnemalvin lder Body Mass Index (Ratio) 32.13 kg/m2 Clay Carlos MD blood pressure, diastolic 70 mm[Hg] Jasmyn Mcclain blood pressure, systolic 110 mm[Hg] Selena Mcclain oxygen saturation, oximetry 98 % Madhavi Mcclain respiratory rate E&M 18 /min Kristin Mcclain pulse rate 73 /min Madhavi guido weight E&M 230.4 [lb_av] Madhavi shepardon height E&M 71 [in_i] Madhavi guido Body Mass Index (Ratio) 32.49 kg/m2 Clay Carlos MD blood pressure, diastolic 70 mm[Hg] Cy nthia Wisdom blood pressure, systolic 118 mm[Hg] Allie thia Artis respiratory rate E&M 16 /min Ya Wisdom weight E&M 233 [lb_av] Ya Campbel l pulse rate 77 /min Ya Campbel l oxygen saturation, oximetry 97 % Ya Wisdom blood pressure, cuff size regular Cy nthia Wisdom height E&M 71 [in_i] Ya Campbel l Body Mass Index (Ratio) 31.66 kg/m2 Clay Carlos MD weight E&M 227 [lb_av] Ya Campbel l blood pressure, cuff size regular Cy nthia Wisdom blood pressure, diastolic 68 mm[Hg] Cy nthia Wisdom blood pressure, systolic 120 mm[Hg] Allie thia Wisdom pulse rate 84 /min Ya Campbel l oxygen saturation, oximetry 98 % Ya Wisdom respiratory rate E&M 16 /min Ya Wisdom height E&M 71 [in_i] Ya Campbel l Body Mass Index (Ratio) 31.66 kg/m2 Clay Carlos MD blood pressure, diastolic 70 mm[Hg] Jasmyn Cannon blood pressure, systolic 108 mm[Hg] Selena matias O'Sp oxygen saturation, oximetry 97 % Yulia O'Sp respiratory rate E&M 18 /min Yulia O'Sp pulse rate 76 /min Yulia O'Sp weight E&M 227 [lb_av] Yulia O'Sp height E&M 71 [in_i] Yulia O'Sp Body Mass Index (Ratio) 31.18 kg/m2 Clay Carlos MD blood pressure, diastolic 85 mm[Hg] Jasmyn Mcclain blood pressure, systolic 149 mm[Hg] Selena Mcclain oxygen saturation, oximetry 98 % Madhavi Ramirezenson respiratory rate E&M 18 /min Kristin sanjana RamirezMcclain pulse rate 71 /min Madhavi Mohr edenleanna weight E&M 223.6 [lb_av] Madhavi shepardon height E&M 71 [in_i] Madhavi Mohr hay Body Mass Index (Ratio) 30.40 kg/m2 Clay Carlos MD blood pressure, cuff size regular Cy eunice Wisdom blood pressure, diastolic 60 mm[Hg] Cy eunice Wisdom blood pressure, systolic 106 mm[Hg] Allie Wisdom oxygen saturation, oximetry 97 % Ya Wisdom respiratory rate E&M 16 /min Ya Wisdom pulse rate 77 /min Ya Campbel l weight E&M 218 [lb_av] Ya Campbel l height E&M 71 [in_i] Ya Campbel l Body Mass Index (Ratio) 31.82 kg/m2 Clay Carlos MD blood pressure, diastolic 81 mm[Hg] Jasmyn Mcclain blood pressure, systolic 129 mm[Hg] Selena Mcclain oxygen saturation, oximetry 98 % Madhavi Mcclain respiratory rate E&M 18 /min Kristin Mcclain pulse rate 81 /min Madhavi guido weight E&M 228.2 [lb_av] Madhavi shepardon height E&M 71 [in_i] Madhavi Mohr nson Body Mass Index (Ratio) 31.66 kg/m2 Josh Ferrell MD blood pressure, diastolic 80 mm[Hg] Da malinda Elaine blood pressure, systolic 122 mm[Hg] Dac ia Elaine oxygen saturation, oximetry 94 % Gloria Elaine respiratory rate E&M 16 /min Gloria V oss pulse rate 227 /min Gloria Elaine weight E&M 227 [lb_av] Gloria Elaine height E&M 71 [in_i] Gloria Elaine Body Mass Index (Ratio) 32.35 kg/m2 Clay Carlos MD blood pressure, diastolic 78 mm[Hg] ontsil Nirav blood pressure, systolic 132 mm[Hg] Obdulia ntsil Nirav pulse rate 89 /min [facility]av oxygen saturation, oximetry 97 % [facility] Nirav respiratory rate E&M 20 /min [facility] Hospitalmatt kowalski Nirav weight E&M 232 [lb_av] [facility] Hospitalntelle Nirav height E&M 71 [in_i] [facility] Nirav Body Mass Index (Ratio) 32.69 kg/m2 Clay Carlos MD blood pressure, diastolic 81 mm[Hg] Jasmyn Mcclain blood pressure, systolic 130 mm[Hg] Selena Fidelannmarie Mcclain oxygen saturation, oximetry 95 % Madhavi Mcclain respiratory rate E&M 18 /min Kristin sanjana Johny pulse rate 84 /min Madhavi guido weight E&M 234.4 [lb_av] Madhavi elizabeth height E&M 71 [in_i] Madhavi Mohr leanna Body Mass Index (Ratio) 33.75 kg/m2 Ranulfo Singletary RN blood pressure, resting Yes Andressa ca Carrillo respiratory rate E&M 22 /min Sandra Carrillo pulse rate 89 /min Sandra Carrillo oxygen saturation, oximetry 98 % Sandra Carrillo blood pressure, diastolic 80 mm[Hg] Ta nick Carrillo blood pressure, systolic 140 mm[Hg] Shaffer logan Carrillo blood pressure, cuff size regular Jason romero Carrillo weight E&M 242 [lb_av] Sandra Carrillo height E&M 71 [in_i] Sandra Carrillo Body Mass Index (Ratio) 34.03 kg/m2 Sund lety Beck MD pulse rate 81 /min Sandra Carrillo respiratory rate E&M 18 /min Sandra Carrillo oxygen saturation, oximetry 98 % Sandra Carrillo blood pressure, diastolic 90 mm[Hg] Ta nick Carrillo blood pressure, systolic 143 mm[Hg] Shaffer logan Carrillo blood pressure, cuff size large Jason romero Carrillo weight E&M 244 [lb_av] Sandra Carrillo height E&M 71 [in_i] Sandra Carrillo Body Mass Index (Ratio) 33.80 kg/m2 Clay Carlos MD blood pressure, diastolic 97 mm[Hg] Jasmyn Mcclain blood pressure, systolic 158 mm[Hg] Selena Mcclain oxygen saturation, oximetry 97 % Madhavi Mcclain respiratory rate E&M 18 /min Kristin Mcclain pulse rate 87 /min Madhavi guido weight E&M 242.4 [lb_av] Madhavi elizabeth height E&M 71 [in_i] Madhavi guido blood pressure, diastolic, left arm 70 mm [Hg] Johanna Hayden blood pressure, systolic, left arm 120 mm [Hg] Johanna Espinosahley blood pressure, diastolic, right arm 68 m m[Hg] Johanna Catracho blood pressure, systolic, right arm 116 m m[Hg] Johanna Espinosahley blood pressure, diastolic 70 mm[Hg] Josiah Espinosahley blood pressure, systolic 120 mm[Hg] Colton mirella Catracho pulse rate 82 /min Johanna Espinosahley oxygen saturation, oximetry 98 % Johanna Espinosahley respiratory rate E&M 18 /min Johanna Catracho Body Mass Index (Ratio) 33.53 kg/m2 Bay Espinosahley weight E&M 240.4 [lb_av] Johanna flanagan blood pressure, diastolic 60 mm[Hg] Jasmyn Mcclain blood pressure, systolic 124 mm[Hg] Selena Mcclain pulse rate 75 /min Madhavi Mohr edenleanna oxygen saturation, oximetry 98 % Madhavi Mcclain respiratory rate E&M 16 /min Kristin Mcclain Body Mass Index (Ratio) 33.69 kg/m2 Luz Maria Mcclain weight E&M 241.6 [lb_av] Madhavi James clara blood pressure, diastolic 60 mm[Hg] Jasmyn Mcclain blood pressure, systolic 110 mm[Hg] Selena Mcclain pulse rate 80 /min Madhavi Mohr hay oxygen saturation, oximetry 98 % Madhavi Mcclain respiratory rate E&M 16 /min Kristin Mcclain Body Mass Index (Ratio) 33.94 kg/m2 Emely Mcclain weight E&M 243.4 [lb_av] Madhavi elizabeth blood pressure, diastolic 70 mm[Hg] Me mcclure Morocho blood pressure, systolic 128 mm[Hg] Janene laineza Morocho pulse rate 82 /min Qing Morocho oxygen saturation, oximetry 98 % Qing Morocho respiratory rate E&M 16 /min Qing Morocho Body Mass Index (Ratio) 34.17 kg/m2 [facility] 245 [lb_av] Qing Morocho blood pressure, diastolic 70 mm[Hg] Nv kami Morocho blood pressure, systolic 118 mm[Hg] Janene laineza Morocho pulse rate 86 /min Qing Morocho oxygen saturation, oximetry 98 % Qing Morocho respiratory rate E&M 16 /min Qing Morocho Body Mass Index (Ratio) 34.17 kg/m2 [facility] weight E&M 245 [lb_av] Qing Morocho blood pressure, diastolic 91 mm[Hg] Jasmyn Mcclain blood pressure, systolic 154 mm[Hg] Selena Mcclain pulse rate 90 /min Madhavi guido oxygen saturation, oximetry 97 % Madhavi Mcclain respiratory rate E&M 18 /min Kristin Mcclain Body Mass Index (Ratio) 33.36 kg/m2 Emely Mcclain weight E&M 239.2 [lb_av] Madhavi James clara blood pressure, diastolic 85 mm[Hg] Jasmyn Mcclain blood pressure, systolic 147 mm[Hg] Selena Mcclain pulse rate 85 /min Madhavi guido oxygen saturation, oximetry 97 % Madhavi Mcclain respiratory rate E&M 18 /min Kristin Mcclain Body Mass Index (Ratio) 33.27 kg/m2 Emely Mcclain weight E&M 238.6 [lb_av] Madhavi elizabeth Body Mass Index (Ratio) 32.77 kg/m2 Anea elias Bc blood pressure, diastolic 84 mm[Hg] An eatris Brown blood pressure, systolic 120 mm[Hg] Ane atris Brown pulse rate 78 /min Aneatris Brown oxygen saturation, oximetry 97 % Aneatris Brown respiratory rate E&M 17 /min Aneatri s Bc weight E&M 235 [lb_av] Aneatris Brown height E&M 71 [in_i] Aneatrcharles Yancey blood pressure, diastolic 66 mm[Hg] Jose Ramon Krause RN blood pressure, systolic 113 mm[Hg] Reese Krause RN pulse rate 72 /min Reese Krause RN oxygen saturation, oximetry 96 % Reese Krause RN respiratory rate E&M 16 /min Reese beard RN weight E&M 220 [lb_av] eRese Krause RN blood pressure, diastolic, right arm 86 m m[Hg] Rafa Manacoeddie blood pressure, systolic, right arm 142 m m[Hg] Rafa Manacop blood pressure, diastolic 86 mm[Hg] Rosetta seph Manacop blood pressure, systolic 142 mm[Hg] Wilfrid di Manacop pulse rate 77 /min Rafa Manacop oxygen saturation, oximetry 98 % Rafa Manacop respiratory rate E&M 16 /min Rafa Manacop weight E&M 223 [lb_av] Rafa Manacoeddie blood pressure, diastolic 80 mm[Hg] Jose Ramon Krause RN blood pressure, systolic 126 mm[Hg] Reese Krause SYLVIA pulse rate 80 /min Reese Krause RN oxygen saturation, oximetry 97 % Reese Krause SYLVIA respiratory rate E&M 18 /min Reese beard SYLVIA weight E&M 216 [lb_av] Reese Krause SYLVIA blood pressure, diastolic 76 mm[Hg] Josiah kang Landers blood pressure, systolic 119 mm[Hg] Williamson Landers pulse rate 81 /min Nelly Landers oxygen saturation, oximetry 99 % Nelly Leesa respiratory rate E&M 22 /min Nelly Lorenzo hall weight E&M 156 [lb_av] Nelly Landers ALLERGIES Allergy Name Onset Date Reaction Criticality Status TEGRETOL Low Criticality active RESULTS Date Observation Value Provider Reference Range Interpretation Location very low density lipoproteins 130.2 mg/dL LinkLog[facility] 5.0 - 40.0 High LDL/HDL (low-density lipoprotein/high-de nsity lipoprotein) ratio -37.0 RATIO [facility] - lipoprotein, beta, serum, point, quantitative, calculated -999.0 (?) [facility] 0.0 - 100.0 Low HDL cholesterol, serum 27.0 mg/dL [facility] 35.0 - 55.0 Low cholesterol, serum 220.0 mg/dL [facility] 0.0 - 200.0 High triglyceride, serum, fasting 651.0 mg/dL [facility] 0.0 - 150.0 High red blood cell distribution width, size density 45.8 fL [facility] - immature granulocytes, percentage of total cells, blood 0.9 % [facility] - nucleated red blood cells as percent of blood leukocytes 0.0 % [facility] - red blood cell (erythrocyte) count, per high power field 0.0 10*3/UL [facility] - eosinophils as percent of blood leukocytes 3.2 % [facility] - neutrophils as percent of blood leukocytes 48.2 % [facility] - Absolute Neutrophils 3.2 CELLS/UL [facility] 1.5 - 7.8 basophils as percent of blood leukocytes 0.5 % [facility] - Absolute Basophils 0.0 CELLS/UL [facility] 0.0 - 0.2 monocytes as percent of blood leukocytes 9.6 % [facility] - Absolute Monocytes 0.6 CELLS/UL [facility] 0.2 - 1.0 lymphocytes as percent of blood leukocytes 37.6 % [facility] - Absolute Lymphocytes 2.5 CELLS/UL [facility] 0.9 - 3.9 mean platelet volume 10.8 (?) [facility] - platelet count 198.0 THOUSAND/U L [facility] 100.0 - 400.0 mean corpuscular hemoglobin concentration, RBC 30.7 G/DL [facility] 31.0 - 38.0 Low mean corpuscular hemoglobin, RBC 26.8 pg [facility] 25.0 - 35.0 mean corpuscular volume, RBC 87.1 fL [facility] 75.0 - 100.0 hematocrit, blood 39.7 % [facility] 35.0 - 55.0 hemoglobin, blood 12.2 g/dL [facility] 11.5 - 16.5 erythrocyte count, whole blood 4.6 MILLION/UL [facility] 3.5 - 5.5 prothrombin time (patient) 10.3 s [facility] 9.0 - 11.5 international normalized ratio (INR) 1.0 [facility] 0.9 - 1.1 urea nitrogen/creatinine ratio, serum 11.7 [facility] - Estimated Glomerular Filtration Rate (calc) 151.0 (?) [facility] 59.0 - chloride, serum 104.4 mmol/L [facility] 98.0 - 107.0 potassium, serum 4.1 mmol/L [facility] 3.5 - 5.1 sodium, serum 138.0 mmol/L [facility] 136.0 - 145.0 creatinine, serum 0.6 mg/dL [facility] 0.7 - 1.2 Low carbon dioxide, venous blood 17.0 mmol/L [facility] 22.0 - 29.0 Low calcium, serum 8.9 mg/dL [facility] 8.6 - 10.2 urea nitrogen, blood 7.0 mg/dL [facility] 6.0 - 20.0 blood glucose, random 242.0 mg/dL [facility] 74.0 - 99.0 High rapid plasma reagin antibody, serum NON-REACTI VE [facility] NON-REACTIVE free thyroxine index 4.3 ??g/dL LinkLog 4.4 - 11.4 Low triiodothyronine uptake 1.2 TBI [facility] 0.8 - 1.3 thyroxine, serum, total 5.2 ??G/DL [facility] 4.5 - 11.7 thyroid stimulating hormone, serum 6.740 ?IU/ML [facility] 0.270 - 4.200 High red blood cell distribution width, size density 46.1 fL [facility] - immature granulocytes, percentage of total cells, blood 1.4 % [facility] - nucleated red blood cells as percent of blood leukocytes 0.0 % [facility] - red blood cell (erythrocyte) count, per high power field 0.0 10*3/UL [facility] - eosinophils as percent of blood leukocytes 3.0 % [facility] - neutrophils as percent of blood leukocytes 42.9 % [facility] - Absolute Neutrophils 3.1 CELLS/UL [facility] 1.5 - 7.8 basophils as percent of blood leukocytes 0.4 % [facility] - Absolute Basophils 0.0 CELLS/UL LinkLog 0.0 - 0.2 monocytes as percent of blood leukocytes 10.2 % [facility] - Absolute Monocytes 0.7 CELLS/UL [facility] 0.2 - 1.0 lymphocytes as percent of blood leukocytes 42.1 % [facility] Absolute Lymphocytes 3.1 CELLS/UL [facility] 0.9 - 3.9 mean platelet volume 10.6 (?) [facility] - platelet count 232.0 THOUSAND/U L [facility] 100.0 - 400.0 mean corpuscular hemoglobin concentration, RBC 30.6 G/DL [facility] 31.0 - 38.0 Low mean corpuscular hemoglobin, RBC 26.7 pg [facility] 25.0 - 35.0 mean corpuscular volume, RBC 87.3 [facility] hematocrit, blood 43.5 % [facility] 35.0 - 55.0 hemoglobin, blood 13.3 g/dL [facility] 11.5 - 16.5 erythrocyte count, whole blood 5.0 MILLION/UL [facility] 3.5 - 5.5 hemoglobin A1C, blood, as % of total hemoglobin 6.0 % [facility] 4.0 - 6.0 activated partial thromboplastin time 24.6 SECONDS [facility] 23.0 - 33.0 prothrombin time (patient) 10.2 s [facility]Log 9.0 - 11.5 international normalized ratio (INR) 1.0 [facility] 0.9 - 1.1 C-reactive protein, serum 0.2 mg/dL [facility] 0.0 - 0.5 very low density lipoproteins 93.6 mg/dL [facility] 5.0 - 40.0 High LDL/HDL (low-density lipoprotein/high-de nsity lipoprotein) ratio -29.4 RATIO [facility] - lipoprotein, beta, serum, point, quantitative, calculated -999.0 (?) [facility] - HDL cholesterol, serum 34.0 mg/dL [facility] 35.0 - 55.0 Low cholesterol, serum 218.0 mg/dL [facility] 0.0 - 200.0 High triglyceride, serum, fasting 468.0 mg/dL [facility] 0.0 - 150.0 High anion gap, serum 12.6 [facility] - albumin/globulin ratio, serum 2.8 g/dL [facility] 1.1 - 2.5 High globulin, serum 2.9 [facility] 2.3 - 3.8 urea nitrogen/creatinine ratio, serum 18.3 [facility] - Estimated Glomerular Filtration Rate (calc) 151.0 (?) [facility] 59.0 - chloride, serum 104.4 mmol/L [facility] 98.0 - 107.0 potassium, serum 4.2 mmol/L [facility] 3.5 - 5.1 sodium, serum 141.0 mmol/L [facility] 136.0 - 145.0 creatinine, serum 0.6 mg/dL [facility] 0.7 - 1.2 Low carbon dioxide, venous blood 24.0 mmol/L [facility] 22.0 - 29.0 albumin, serum 4.6 g/dL [facility] 3.5 - 5.2 calcium, serum 9.4 mg/dL [facility] 8.6 - 10.2 aspartate aminotransferase (SGOT), serum 52.0 1/L [facility] 0.0 - 40.0 High alkaline phosphatase, serum 111.0 1/L [facility] 40.0 - 130.0 alanine aminotransferase (SGPT), serum 37.0 1/L [facility] 0.0 - 41.0 protein, total, serum 7.5 g/dL [facility] 6.6 - 8.7 bilirubin, serum, total 0.1 mg/dL [facility] 0.0 - 1.2 urea nitrogen, blood 11.0 mg/dL [facility] 6.0 - 20.0 blood glucose, random 106.0 mg/dL [facility] 74.0 - 99.0 High pro brain natriuretic peptide 5.0 pg/mL [facility] 0.0 - 125.0 iron binding capacity, unsaturated 366.0 ??G/DL [facility] 112.0 - 347.0 High ferritin, serum 12.2 ng/mL [facility] 30.0 - 400.0 Low iron binding capacity, total 411.0 (?) [facility] - iron, serum 45.0 ug/dL [facility] 31.0 - 144.0 vitamin b12, serum 576.6 pg/mL [facility] 211.0 - 946.0 folate, serum 9.1 NG/MLM [facility] 4.4 - 31.0 anion gap, serum 15.8 [facility] globulins, serum, total 3.5 g/dL [facility] estimated glomerular filtration rate >60 [facility] albumin/globulin ratio, serum 1.0 [facility] protein, total, serum 7.1 g/dL [facility] albumin, serum 3.6 g/dL [facility] bilirubin, serum, total 0.3 mg/dL [facility] alkaline phosphatase, serum 105 1/L [facility] alanine aminotransferase (SGPT), serum 77 1/L [facility] aspartate aminotransferase (SGOT), serum 54 1/L [facility] calcium, serum 8.4 mg/dL [facility] blood glucose, fasting 79 mg/dL [facility] creatinine, serum 0.88 mg/dL [facility] urea nitrogen, blood 9.2 mg/dL [facility] carbon dioxide, serum, total 20 mmol/L [facility] chloride, serum 108 mmol/L [facility] potassium, serum 3.8 mmol/L [facility] sodium, serum 140 mmol/L [facility] triglyceride, serum, fasting 217 mg/dL [facility] HDL cholesterol, serum 40 mg/dL [facility] LDL cholesterol, serum 57.6 mg/dL [facility] cholesterol, serum 141 mg/dL [facility] globulins, serum, total 2.9 g/dL [facility] Estimated Glomerular Filtration Rate (calc) >60 [facility] albumin/globulin ratio, serum 1.2 [facility] protein, total, serum 6.3 g/dL [facility] albumin, serum 3.4 g/dL [facility] bilirubin, serum, total 0.10 mg/dL [facility] alkaline phosphatase, serum 103 1/L [facility] alanine aminotransferase (SGPT), serum 66 1/L [facility] aspartate aminotransferase (SGOT), serum 46 1/L [facility] calcium, serum 8.2 mg/dL [facility] blood glucose, fasting 97 mg/dL [facility] creatinine, serum 0.97 mg/dL [facility] urea nitrogen, blood 12 mg/dL [facility] carbon dioxide, serum, total 22 mmol/L [facility] chloride, serum 110 mmol/L [facility] potassium, serum 3.8 mmol/L [facility] sodium, serum 140 mmol/L [facility] platelet count 2-3 [facility] red blood cell distribution width 13.2 % [facility] mean corpuscular hemoglobin concentration, RBC 33.9 g/dL [facility] mean corpuscular hemoglobin, RBC 31.5 pg [facility] mean corpuscular volume, RBC 92.9 fL Janeen Dupont hematocrit, blood 40.7 % Janeen Dupont hemoglobin, blood 13.8 g/dL Jane[facility] Dupont erythrocyte (RBC) count 4.38 10*6/mm3 Janeen Dupont monocytes as percent of blood leukocytes 8.3 % Janeen Dupont lymphocytes as percent of blood leukocytes 35.4 % Janeen Dupont leukocyte count, blood 6.5 10*3/mm3 Janeen Dupont HISTORY OF MEDICATION USE Medication Status Instructions Dates Provider Indications Com ments nortriptyline 75 mg capsule active TAKE 1 CAPSULE BY MOUTH TWICE DAILY Angie Ruple rosuvastatin 40 mg tablet active Take 1 tablet by mouth every night at bedtime Noemi Yepez rosuvastatin 40 mg tablet completed TAKE 1 TABLET BY MOUTH EVERY DAY AT BEDTIME - Noemi Yepez nortriptyline 75 mg capsule completed Take 75 mg by mouth twice a day - Angie Messina Jardiance 25 mg tablet active Take 1 tablet by mouth once a day Noemi Yepez fenofibrate 160 mg tablet active Take 1 tablet by mouth once a day Noemi Yepez #90, 90 days supply, Prescribed by ANIKET DOUGHERTY, Filled 07/04/2020 doxycycline hyclate 100 mg capsule completed Take 1 capsule by mouth twice a day - Dipak [facility] aspirin 81 mg tablet,chewable active CHEW AND SWALLOW 1 TABLET BY MOUTH EVERY DAY Dipak furosemide 40 mg tablet completed TAKE 1 TABLET BY MOUTH EVERY DAY - Juhi SPAIN metoprolol tartrate 100 mg tablet completed Take one tab the night before the CT, Take one tab two hours before the CT at 10:30am (05/31). - Dipak Lasix 40 mg tablet completed Take 1 tablet by mouth once a day - Mary Moyer enalapril maleate 5 mg tablet active TAKE 1 TABLET BY MOUTH EVERY DAY Alma Carey amoxicillin-pot clavulanate 875-125 mg tablet completed Take 1 tablet by mouth twice a day - Asim Carlos MD Lasix 40 mg tablet completed 1 tablet once a day - Long Ferrell MD fenofibrate 160 mg tablet completed Take 1 once a day - Noemi Yepez #90, 90 days supply, Prescribed by ANIKET DOUGHERTY, Filled 07/04/2020 Wixela Inhub 250-50 mcg/dose blister with device completed Inhale 1 puff by mouth twice a day - Madhavi Mcclain Jardiance 25 mg tablet completed 1 tablet by mouth once a day - Noemi Yepez pioglitazone 30 mg tablet active once a day Asim Carlos MD AMOXICILLIN-POT CLAVULANATE 875-125 MG ORAL TABLET completed 1 po bid x 7 days - Ya Wisdom AMOXICILLIN-POT CLAVULANATE 875-125 MG ORAL TABLET completed 1 po bid x 7 days - Ya Wisdom TRAMADOL HCL 50 MG ORAL TABLET completed 1 po q 6 hours prn pain - Yulia O'Sp CEPHALEXIN 500 MG ORAL CAPSULE completed 1 po tid x 5 days - Yulia Odonnell'Sp MECLIZINE HCL 25 MG ORAL TABLET completed Take 1 tablet once a day as needed - Ya Wisdom Advair Diskus 250-50 mcg/dose blister with device completed Inhale 1 puff by mouth twice a day - Veronica Herbert aspirin 81 mg tablet,chewable completed Chew 1 tablet by mouth once a day - Kimberly Johnson FENOFIBRATE 160 MG ORAL TABLET completed ONE TAB. DAILY - Madhavi Mcclain atorvastatin 20 mg tablet active 1 tablet once a day Asim Carlos MD Synthroid 50 mcg tablet active Take 1 tablet once a day Asim Carlos MD VITAMIN D TABLET active 1 tablet once a week Madhavi Mcclain Singulair 10 mg tablet active 1 tablet once a day Madhavi Mcclain ALEVE CAPSULE active as needed Madhavi Mcclain MILK OF MAGNESIA completed as needed 10ml - Rafa Chatodidier MYLANTA SUSPENSION completed 30ml as needed - Yulia Cannon cyclobenzaprine 10 mg tablet active twice a day Asim Carlos MD citalopram 20 mg tablet active once a day Juhi SPAIN KLONOPIN 1 MG ORAL TABLET completed 1 tablet by mouth daily - Germain Yancey DEPAKOTE 500 MG ORAL TABLET DELAYED RELEASE completed 2 tabs every morn - Rafa Heard omeprazole 20 mg capsule,delayed release(DR/EC) active 1 tablet by mouth once a day Asim Carlos MD ADVAIR HFA AEROSOL completed TWICE A DAY - Madhavi Mcclain ProAir HFA 90 mcg/actuation HFA aerosol inhaler active as needed Reese Krause RN LYRICA 75 MG ORAL CAPSULE completed - Reese Krause RN Depakote 500 mg tablet,delayed release (DR/EC) active 2 tablet by mouth twice a day Juhi SPAIN LEXAPRO 10 MG ORAL TABLET completed ONE TAB. DAILY - Reese Krause RN NIASPAN 500 MG ORAL TABLET EXTENDED RELEASE completed ONE TAB. AT BEDTIME - Nelly Landers LIPITOR 20 MG ORAL TABLET completed ONE TAB. DAILY - Madhavi Mcclain enalapril maleate 5 mg tablet completed Take 1 tablet by mouth once a day - Cirilo Carrillo Topamax 200 mg tablet active 300 mg twice a day Asim Carlos MD ACETAZOLAMIDE 250 MG ORAL TABLET completed BID - Germain Yancey nortriptyline 10 mg capsule completed 75 mg twice a day - Noemi Yepez SOCIAL HISTORY Date Observation Value Provider personal history of marijuana use no Osei Johnroyce drug use no Osei Johnroyce alcohol use no Osei Lisamaria passive cigarette sm familia exposure no Osei Lisazaroyce smoking status Never smoker Osei Gonzalezmaria personal history of marijuana use no Juhi Ventimiglia LANDC[employer] FACILITATOR drug use no Juhi Ventimig andrae LANDC[employer] FACILITATOR alcohol use no Juhi Ventimig andrae LANDCARE FACILITATOR passive cigarette sm familia exposure no Juhi Ventimiglia LANDCARE FACILITATOR smoking status Never smoker Juhi Ventim iglia LANDCARE FACILITATOR alcohol use no Asim Kerr passive cigarette sm familia exposure no Asim Carlos MD smoking status Never smoker Asim Carlos MD smoking history, tot al pack/year 50 Griselda Chris alcohol use no Asim Kerr passive cigarette sm familia exposure no Asim Carlos MD smoking status Never smoker Asim Carlos MD social history E&M Marital Statu s: Single L leonora alone E thnicity: Eddie lopez is a former smoker. Smoking History: P atpaul has never smoked. Asim Carlos MD social history reviewed E&M revi ewed - no changes required Asim Carlos MD smoking status Never smoker Mary Moyer social history E&M Marital Statu s: Single L leonora alone E thnicity: P atpaul is a former smoker. Smoking History: P atpaul has never smoked. Asim Carlos MD social history reviewed E&M revi ewed - no changes required Asim Carlos MD smoking status Never smoker Mary Moyer social history reviewed E&M revi ewed - no changes required Osei Walker social history E&M Marital Statu s: Single L leonora alone E thnicity: Eddie lopez is a former smoker. Smoking History: P jessica is a former smoker. Osei Walker physical exercise, frequency, days per week no Noemi Lucho caffeine use, averag e drinks per day yes Noemi Lucho passive cigarette sm familia exposure no Noemi Laneryanrussellcatrachito smoking, date started 1973 Noemi Lucho smoking history, tot al pack/year 42 Noemipearl Yepez cigarette use yes Noemi Suhas winston smoking status Former smoker Noemi wellscatrachito social history E&M Marital Statu s: Single L leonora alone E thnicity: Eddie lopez is a former smoker. Smoking History: Eddie lopez is a former smoker. Asim Carlos MD social history reviewed E&M revi ewed - no changes required Asim Carlos MD physical exercise, frequency, days per week no Raquel Jose caffeine use, averag e drinks per day yes Raquelalanna Jose passive cigarette sm familia exposure no Raquelalanna Jose smoking, date started 1973 Raquelalanna Jose smoking history, tot al pack/year 43 Raquelalanna Jose cigarette use yes Raquelalanna Jose smoking status Former smoker Raquelalanna Jose social history reviewed E&M revi ewed - no changes required Asim Carlos MD social history E&M Marital Statu s: Single L leonora alone E thnicity: Eddie lopez is a former smoker. Smoking History: Eddie lopez is a former smoker. Asim Carlos MD social history reviewed E&M revi ewed - no changes required Asim Carlos MD physical exercise, frequency, days per week no Noemi Laneryanrussellcatrachito caffeine use, averag e drinks per day yes Noemi Laneaure passive cigarette sm familia exposure no Noemi Daicatrachito smoking, date started 1973 Noemi Daicatrachito smoking history, tot al pack/year 43 Noemi Laneaure cigarette use yes Noemi Dai catrachito smoking status Former smoker Noemi wellscatrachito social history E&M Marital Statu s: Single L leonora alone E thnicity: Eddie lopez is a former smoker. Smoking History: Eddie lopez is a former smoker. Asim Carlos MD social history reviewed E&M revi ewed - no changes required Asim Carlos MD physical exercise, frequency, days per week no Madhavi Johny caffeine use, averag e drinks per day yes Madhavi Mcclain passive cigarette sm familia exposure no Madhavi Mcclain smoking, date started 1973 Radha hao Johny smoking history, tot al pack/year 42 Madhavi Mcclain cigarette use yes Madhavi elizabeth smoking status Former smoker Madhavi Flores social history E&M Marital Statu s: Single L leonora alone E thnicity: Eddie lopez is a former smoker. Smoking History: Eddie lopez is a former smoker. Asim Carlos MD social history reviewed E&M revi ewed - no changes required Asim Carlos MD physical exercise, frequency, days per week no Carmelo Harris caffeine use, averag e drinks per day yes Carmelo Harris passive cigarette sm familia exposure no Carmelo Harris smoking, date started 1973 Robina Harris smoking history, tot al pack/year 43 Carmelo Harris cigarette use yes Carmelo siddiqui smoking status Former smoker Carmelo bundy social history reviewed E&M revi ewed - no changes required Long Ferrell MD social history E&M Marital Statu s: Single L leonora alone E thnicity: Eddie lopez is a former smoker. Smoking History: Eddie lopez is a former smoker. Long Ferrell MD physical exercise, frequency, days per week no Ya Wisdom caffeine use, averag e drinks per day yes Ya Artis passive cigarette sm familia exposure no Ya Artis smoking, date started 1974 Alliepatricia jocelyn Wisdom smoking history, tot al pack/year 43 Ya Artis cigarette use yes Ya Theresa crow smoking status Former smoker Ya Hammonds guido social history E&M Marital Statu s: Single L leonora alone E thnicity: Eddie lopez is a former smoker. Smoking History: Eddie lopez is a former smoker. Asim Carlos MD social history reviewed E&M revi ewed - no changes required Asim Carlos MD physical exercise, frequency, days per week no Noemi Yepez caffeine use, averag e drinks per day yes Noemi Yepez passive cigarette sm familia exposure no Noemi Yepez smoking, date started 1974 Noemi Yepez smoking history, tot al pack/year 43 Noemi Yepez cigarette use yes Noemi Bradfordnf elder smoking status Former smoker Noemi Bradford nfelder social history E&M Marital Statu s: Single L leonora alone E thnicity: P atient is a former smoker. Smoking History: P atient is a former smoker. Asim Carlos MD social history reviewed E&M revi ewed - no changes required Asim Carlos MD physical exercise, frequency, days per week no Madhavi Mcclain caffeine use, averag e drinks per day yes Madhavi Mcclain passive cigarette sm familia exposure no Madhavi Mcclain smoking, date started 1973 Radha Mcclain smoking history, tot al pack/year 43 Madhavi Mcclain cigarette use yes Madhavi elizabeth smoking status Former smoker Madhavi Flores social history E&M Marital Statu s: Single L leonora alone E thnicity: P atient is a former smoker. Smoking History: P atient is a former smoker. Asim Carlos MD social history reviewed E&M revi ewed - no changes required Asim Carlos MD physical exercise, frequency, days per week no Ya Wisdom caffeine use, averag e drinks per day yes Ya Wisodm passive cigarette sm familia exposure no Ya Wisdom smoking, date started 1974 Juan Wisdom smoking history, tot al pack/year 43 Ya Wisdom cigarette use yes Ya crow smoking status Former smoker Ya lora social history reviewed E&M revi ewed - no changes required Asim Carlos MD social history E&M Marital Statu s: Single L leonora alone E thnicity: P atient is a former smoker. Smoking History: P atient is a former smoker. Asim Carlos MD social history reviewed E&M revi ewed - no changes required Asim Carlos MD physical exercise, frequency, days per week no Yulia O'Sp caffeine use, averag e drinks per day yes Yulia O'Sp passive cigarette sm familia exposure no Yulia O'Sp smoking, date started 1973 Yulia O'Sp smoking history, tot al pack/year 43 Yulia O'Sp cigarette use yes Yulia O'Sp smoking status Former smoker Yulia Odonnell'Katherine l social history E&M Marital Statu s: Single L leonora alone E thnicity: P jessica is a former smoker. Smoking History: P jessica is a former smoker. Asim Carlos MD social history reviewed E&M revi ewed - no changes required Asim Carlos MD physical exercise, frequency, days per week no Madhavi Mcclain caffeine use, averag e drinks per day yes Madhavi Mcclain passive cigarette sm familia exposure no Madhavi Mcclain smoking, date started 1973 Radha Mcclain smoking history, tot al pack/year 43 MadhaviArlyn Mcclain cigarette use yes Madhavi Ajmes clara smoking status Former smoker Madhavi Mchugh cassandra social history reviewed E&M revi ewed - no changes required Asim Carlos MD social history E&M Marital Statu s: Single L leonora alone E thnicity: P jessica is a former smoker. Smoking History: P jessica is a former smoker. Asim Carlos MD social history reviewed E&M revi ewed - no changes required Asim Carlos MD physical exercise, frequency, days per week no Madhavi Mcclain alcohol use, average drinks per day none Madhavi Mcclain alcohol use no Madhavi Mohr nson caffeine use, averag e drinks per day yes Madhavi Mcclain passive cigarette sm familia exposure no Madhavi Mcclain smoking, date started 1973 Radha Mcclain smoking history, tot al pack/year 43 Madhavi Mcclain cigarette use yes Madhavi shepardon smoking status Former smoker Madhavi Flores number of grandchildren Long Ferrell MD U rosenda Ferrell MD social history E&M Marital Statu s: Single L leonora alone E thnicity: P atient is a former smoker. Smoking History: P atient is a former smoker. Long Ferrell MD social history reviewed E&M revi ewed - no changes required Long Ferrell MD physical exercise, frequency, days per week no Gloria Elaine alcohol use, average drinks per day none Gloria Elaine alcohol use no Gloria Elaine caffeine use, averag e drinks per day yes Gloria Elaine passive cigarette sm familia exposure no Gloria Elaine smoking, date started 1973 Gloria Elaine smoking history, tot al pack/year 43 Gloria Elaine cigarette use yes Gloria Elaine smoking status Former smoker Gloria Elaine social history reviewed E&M revi ewed - no changes required Asim Carlos MD social history reviewed E&M revi ewed - no changes required Asim Carlos MD social history E&M Marital Statu s: Single L leonora alone E thnicity: P atient is a former smoker. Smoking History: P atient is a former smoker. Asim Carlos MD physical exercise, frequency, days per week no Madhavi Mcclain alcohol use, average drinks per day none Madhavi Mcclain alcohol use no Madhavi guido caffeine use, averag e drinks per day yes Madhavi Mcclain passive cigarette sm familia exposure no Madhavi Mcclain smoking, date started 1973 Radha Mcclain smoking history, tot al pack/year 43 Madhavi Mcclain cigarette use yes Madhavi elizabeth smoking status Former smoker Madhavi Flores smoking history, tot al pack/year 43 Светлана Carrizales smoking history, tot al pack/year 43 Trina Mustafa RN physical exercise, frequency, days per week no Sahil Kiran GONZALEZ alcohol use, average drinks per day none Sahil Kiran GONZALEZ alcohol use no Sahil Kiran GONZALEZ caffeine use, averag e drinks per day yes Sahil Kiran GONZALEZ passive cigarette sm familia exposure no Sahil Kiran GONZALEZ smoking, date started 1973 Sundania Kiran GONZALEZ smoking history, tot al pack/year 42 [facility] Kiran GONZALEZ cigarette use yes [facility] Kiran GONZALEZ smoking status Former smoker [facility] Kiran GONZALEZ social history reviewed E&M revi ewed - no changes required Sahil Beck MD social history reviewed E&M revi ewed - no changes required Asim Carlos MD smoking history, tot al pack/year 42 Panda Milligan smoking history, tot al pack/year 42 Júnior Waldrop RN physical exercise, frequency, days per week no Linda Singletary RN alcohol use, average drinks per day none Linda Singletary RN alcohol use no Linda mcgrath RN caffeine use, averag e drinks per day yes Linda Singletary RN smoking/tobacco cess ation, patient education and counseling yes Linda Singletary RN passive cigarette sm familia exposure no Linda Singletary RN smoking, date started 1973 Linda Singletary RN smoking history, tot al pack/year 42 Linda Singletary RN cigarette use yes Linda Ross on RN smoking status Former smoker Linda Dove rson RN social history reviewed E&M revi ewed - no changes required Linda Singletary RN number of grandchildren Sahil Beck MD Josiah loulou Hayden social history reviewed E&M revi ewed - no changes required Asim Carlos MD physical exercise, frequency, days per week no Madhavi Mcclain alcohol use, average drinks per day none Madhavi Ramirezenson alcohol use no Madhavi Ramrieze nson caffeine use, averag e drinks per day yes Madhavi Mcclain passive cigarette sm familia exposure no Madhavi Mcclain smoking, date started 1973 Radha Mcclain smoking history, tot al pack/year 42 Madhavi Ramirezenson cigarette use yes Madhavi shepardon smoking status Former smoker Madhavi Flores social history reviewed E&M revi ewed - no changes required Asim Carlos MD physical exercise, frequency, days per week no Madhavi Mcclain alcohol use, average drinks per day none Madhavi Ramirezenson alcohol use no Madhavi Mohr nson caffeine use, averag e drinks per day yes Madhavi Mcclain passive cigarette sm familia exposure no Madhavi Mcclain smoking, date started 1974 Radha Mcclain smoking history, tot al pack/year 42 Madhavi Mcclain cigarette use yes Madhavi shepardon smoking status Former smoker Madhavi Flores social history reviewed E&M revi ewed - no changes required Asim Carlos MD physical exercise, frequency, days per week no Qing Morocho alcohol use, average drinks per day none Qing Morocho alcohol use no Qing Morocho caffeine use, averag e drinks per day yes Qing Morocho passive cigarette sm familia exposure no Qing Morocho smoking, date started 1974 Danny Morocho smoking history, tot al pack/year 42 Qing Morocho cigarette use yes Qing Morocho smoking status Former smoker Qing Campbell nn social history reviewed E&M revi ewed - no changes required Maggie Grimes MD physical exercise, frequency, days per week no Qing Morocho alcohol use, average drinks per day none Qing Morocho alcohol use no Qing Morocho caffeine use, averag e drinks per day yes Qing Morocho passive cigarette sm familia exposure no Qing Morocho smoking, date started 1973 Danny Morocho smoking history, tot al pack/year 42 Qing Morocho cigarette use yes Qing Morocho smoking status Former smoker Qing Campbell nn smoking history, tot al pack/year 42 Maryjane Sarabia RN smoking history, tot al pack/year 42 Maryjane Sarabia RN alcohol use no Asim Kerr passive cigarette sm familia exposure no Asim Carlos MD social history reviewed E&M revi ewed - no changes required Asim Carlos MD smoking, date started 1974 Radha Mcclain smoking history, tot al pack/year 40 Madhavi Mcclain cigarette use yes Madhavi elizabeth smoking status Former smoker Madhaviramila Flores physical exercise, frequency, days per week no Qing Morocho alcohol use, average drinks per day none Qing Morocho caffeine use, averag e drinks per day yes Qing Morocho smoking history, tot al pack/year 41 Emely Chau smoking history, tot al pack/year 41 Emely Dangelo RN quit smoking, stage quit Siddharth mayorga MD social history reviewed E&M revi ewed - no changes required Siddharth Sheffield MD physical exercise, frequency, days per week no Madhavi Mcclain alcohol use, average drinks per day none Madhavi Mcclain caffeine use, averag e drinks per day yes Madhavi Mcclain smoking, date started 1973 Radha Mcclain cigarette use yes Madhavi elizabeth smoking status Former smoker Madhavi Flores smoking, date started 1974 Mary Gutierrez NP cigarette use yes Mary Gutierrez NP social history E&M Marital Statu s: Single L leonora alone E thnicity: Eddie lopez is a former smoker. Smoking History: Eddie lopez is a former smoker. Mary Gutierrez NP smoking/tobacco cess ation, patient education and counseling yes Mary Gutierrez NP social history reviewed E&M i ewed - no changes required Mary Gutierrez NP smoking status Former smoker Mary crow NP social history reviewed E&M reviewed Reese Krause RN social history reviewed E&M reviewed Reese Krause RN social history E&M Marital Statu s: Single L leonora alone E thnicity: Reese Krause RN social history reviewed E&M reviewed Reese Krause RN social history reviewed E&M reviewed Long Ferrell MD physical exercise, frequency, days per week no [employer] caffeine use, averag e drinks per day yes [employer] alcohol use, average drinks per day none [employer] smoking status Non-smoker [employer] FUNCTIONAL STATUS Date Observation Value Provider HRA, CV Assess/Plan, Angina (inactive) Management Plan continue current therapy Osei Walker HRA, CV Assess/Plan, Angina (inactive) Management Plan continue current therapy Juhi Goodmanalexandrews [employer]ANDC[employer] FACILITATOR HRA, CV Assess/Plan, Angina (inactive) Management Plan continue current therapy Osei Walker HRA, CV Assess/Plan, Angina (inactive) Management Plan continue current therapy Asim Carlos MD HRA, CV Assess/Plan, Angina (inactive) Management Plan continue current therapy Long Ferrell MD HRA, CV Assess/Plan, Angina (inactive) Management Plan continue current therapy Asim Carlos MD HRA, CV Assess/Plan, Angina (inactive) Management Plan continue current therapy Asim Carlos MD HRA, CV Assess/Plan, Angina (inactive) Management Plan continue current therapy Asim Carlos MD HRA, CV Assess/Plan, Angina (inactive) Management Plan continue current therapy Asim Carlos MD HRA, CV Assess/Plan, Angina (inactive) Management Plan continue current therapy Asim Carlos MD HRA, CV Assess/Plan, Angina (inactive) Management Plan continue current therapy Asim Carlos MD HRA, CV Assess/Plan, Angina (inactive) Management Plan continue current therapy Asim Carlos MD HRA, CV Assess/Plan, Angina (inactive) Management Plan continue current therapy Asim Carlos MD HRA, CV Assess/Plan, Angina (inactive) Management Plan continue current therapy Asim Carlos MD HRA, CV Assess/Plan, Angina (inactive) Management Plan continue current therapy Asim Carlos MD HRA, CV Assess/Plan, Angina (inactive) Management Plan continue current therapy Linda Singletary RN HRA, CV Assess/Plan, Angina (inactive) Management Plan continue current therapy Asim Carlos MD HRA, CV Assess/Plan, Angina (inactive) Management Plan continue current therapy Asim Carlos MD MENTAL STATUS Date Observation Value Provider assessment of judgme nt and insight E&M Alert and oriented to time, place and person. M ood and affect are normal. p oor memory. s peech slurred Reese Krause RN assessment of judgme nt and insight E&M Alert and oriented to time, place and person. M ood and affect are normal. p oor memory. s peech slurred Reese Krause RN assessment of judgme nt and insight E&M Alert and oriented to time, place and person. M ood and affect are normal. p oor memory. Reese Krause RN assessment of judgme nt and insight E&M Alert and oriented to time, place and person. Mood and affect are normal. 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 Kris Noriega MD [id number],C, B P today: 132/87 P rior BP: 116/72 (03/14/2022) Labs Reviewed: C reat: 0.6 (05/26/2015) C hol: 220.0 (05/26/2015) HDL: 27.0 (05/26/2015) T.0 (05/26/2015) His updated medication list for this problem includes: Lasix 40 Mg Tablet (Furosemide) ..... Take 1 tablet by mouth once a day Aspirin 81 Mg Tablet,chewable (Aspirin) ..... Chew 1 tablet by mouth once a day Enalapril Maleate 5 Mg Tablet (Enalapril maleate) ..... Take 1 tablet by mouth every day Kris Noriega MD [id number],W,P jessica did not have LOC with his episode of shortness of breath but became very weak and had to lie down on the floor. H is updated medication list for this problem includes: Aspirin 81 Mg Tablet,chewable (Aspirin) ..... Chew 1 tablet by mouth once a day Enalapril Maleate 5 Mg Tablet (Enalapril maleate) ..... Take 1 tablet by mouth every day Kris Noriega MD [id number],W,A ssociated with his SOB. HIs stress showed fixed defect, we will check CTA coronaries to evaluate sxs. H is updated medication list for this problem includes: Aspirin 81 Mg Tablet,chewable (Aspirin) ..... Chew 1 tablet by mouth once a day Enalapril Maleate 5 Mg Tablet (Enalapril maleate) ..... Take 1 tablet by mouth every day Kris Noriega MD [id number],W,P jessica reports yesterday he was at [facility] and he started to experience significant shortness of breath which became progressively worse, had associated chest discomfort, back pain. S tress test shows abnormal perfusion imaging in the inferolateral wall with a moderate perfusion defect, which is moderate in size and is not reversible. I reccomend pt undergo CTA coronaries to evaluate further given his symptoms of shortness of breath and the stress results. Kris Noriega MD [id number],C, R ecent device check showed no abnormalities, normal function. Osei Gonzalezmaria [id number],C,A ssociated with his SOB. HIs stress showed fixed defect, we will check CTA coronaries to evaluate sxs. Oseicara Gonzalezmaria [id number],C, B P today: 132/87 P rior BP: 116/72 (03/14/2022) Labs Reviewed: C reat: 0.6 (05/26/2015) C hol: 220.0 (05/26/2015) HDL: 27.0 (05/26/2015) T.0 (05/26/2015) Osei Walker [id number],C,P jessica did not have LOC with his episode of shortness of breath but became very weak and had to lie down on the floor. Osei Aaron [id number],C,P jessica reports yesterday he was at [facility] and he started to experience significant shortness of breath which became progressively worse, had associated chest discomfort, back pain. S tress test shows abnormal perfusion imaging in the inferolateral wall with a moderate perfusion defect, which is moderate in size and is not reversible. I reccomend pt undergo CTA coronaries to evaluate further given his symptoms of shortness of breath and the stress results. Osei Walker [id number],S, Asim mcgrath MD [id number],B, Asim mcgrath MD [id number],B, Asim mcgrath MD [id number],W, Asim mcgrath MD [id number],B, Asim mcgrath MD [id number],B, Asim Ramada n [place] [id number],S, Asim Ramada n [place] [id number],S, Asim Ramada n [place] [id number],S, Asim Ramada n [place] [id number],S, Asim Ramada n [place] [id number],S, Asim Ramada n [place] [id number],S, Asim Ramada n [place] [id number],B, Asim Ramada n [place] [id number],S, Asim Ramada n [place] [id number],S, Asim Ramada n [place] [id number],S, Asim Ramada n MN [id number],S, Asim Ramada n [place] [id number],B, Asim Ramada n [place] [id number],S, Asim Ramada n [place] [id number],S, Asim Ramada n [place] [id number],B, Asim Ramada n [place] [id number],S, Asim Ramada n [place] [id number],B, Asim Ramada n MN [id number],S, Asim Ramada n [place] [id number],B, Asim Ramada n [place] [id number],S, Asim Ramada n [place] [id number],S, Long Ferrell [place] [id number],S, Long Ferrell MD [id number],C,W Ill recheck his venous studies and give his a diuretic to try to decrease fluid in his legs. Long Ferrell MD Take your medication s every day as directed. Failing to take your medication properly can have a negative impact on your treatment. Please monitor your blood pressure and heart rate regularly, at least weekly. Sit quietly for 5 minutes before taking your blood pressure and heart rate. Recommend a healthy diet plan which would include lots of vegetables and fruits, poultry and fish, low fat dairy products. It would include lower quantities of carbohydrates, like breads, potatoes, rice and pasta. Only small amounts of sweets should be included. Recommend a low salt, or no added salt diet. Exercise of at least 3 times a week is recommended. Even small amounts of exercise regularly can be less intimidating but still beneficial. Please contact us if you have new Chest Pain, Shortness of Breath, Palpitations, Dizziness, or Edema. Nelly Landers Additional Plans/Ins tructions T pa your medications every day as directed. Failing to take your medication properly can have a negative impact on your treatment. P burton monitor your blood pressure and heart rate regularly, at least weekly. Sit quietly for 5 minutes before taking your blood pressure and heart rate. R ecommend a healthy diet plan which would include lots of vegetables and fruits, poultry and fish, low fat dairy products. It would include lower quantities of carbohydrates, like breads, potatoes, rice and pasta. Only small amounts of sweets should be included. R ecommend a low salt, or no added salt diet. E xercise of at least 3 times a week is recommended. Even small amounts of exercise regularly can be less intimidating but still beneficial. Eddie manrique contact us if you have new Chest Pain, Shortness of Breath, Palpitations, Dizziness, or Edema. Nelly Landers Cardiology:Will check Echo to ev aluate his sxs Osei Walker Cardiology:Denies an y claudication sxs, has discoloration in LE consistent with venous disease. Osei Walker Cardiology:BP is sat isfactory today. BP today: 116/71 P rior BP: 112/68 (02/12/2024) Labs Reviewed: C reat: 0.6 (05/26/2015) C hol: 220.0 (05/26/2015) HDL: 27.0 (05/26/2015) LDL: -999.0 (?) (05/26/2015) T.0 (05/26/2015) His updated medication list for this problem includes: Aspirin 81 Mg Tablet,chewable (Aspirin) ..... Chew and swallow 1 tablet by mouth every day Enalapril Maleate 5 Mg Tablet (Enalapril maleate) ..... Take 1 tablet by mouth every day Oseicara Walker Cardiology:He is see ing Neurology and I advised him to follow up for his events of unresponsiveness, possibly seizure related. [facility]Cath 07/13 024 reveals No angiographically identifiable coronary artery disease. [facility]: H is updated medication list for this problem includes: Aspirin 81 Mg Tablet,chewable (Aspirin) ..... Chew and swallow 1 tablet by mouth every day Jardiance 25 Mg Tablet (Empagliflozin) ..... Take 1 tablet by mouth once a day Enalapril Maleate 5 Mg Tablet (Enalapril maleate) ..... Take 1 tablet by mouth every day Pioglitazone 30 Mg Tablet (Pioglitazone) ..... Once a day Oseicara Walker Cardiology: H is updated medication list for this problem includes: Aspirin 81 Mg Tablet,chewable (Aspirin) ..... Chew and swallow 1 tablet by mouth every day Jardiance 25 Mg Tablet (Empagliflozin) ..... Take 1 tablet by mouth once a day Enalapril Maleate 5 Mg Tablet (Enalapril maleate) ..... Take 1 tablet by mouth every day Pioglitazone 30 Mg Tablet (Pioglitazone) ..... Once a day Juhi Lawmiglandrews [facility] Cardiology:weight loss encourage d Juhi Lawmiglandrews [facility] Cardiology: H is updated medication list for this problem includes: Rosuvastatin 40 Mg Tablet (Rosuvastatin) ..... Take 1 tablet by mouth every night at bedtime Fenofibrate 160 Mg Tablet (Fenofibrate) ..... Take 1 tablet by mouth once a day Atorvastatin 20 Mg Tablet (Atorvastatin) ..... 1 tablet [facility] a [facility] Cardiology:BP low. I t was 102/60 sitting and 98/60 standing W illl stop his furosemide T he following medications were removed from the medication list: Furosemide 40 Mg Tablet (Furosemide) ..... Take 1 tablet by mouth every day His updated medication list for this problem includes: Aspirin 81 Mg Tablet,chewable (Aspirin) ..... Chew and swallow 1 tablet by mouth every day Enalapril Maleate 5 Mg Tablet (Enalapril maleate) ..... Take 1 tablet by mouth every day [facility] Cardiology:May be r/ t polypharmacy and hypotension W ill wean off citalopram W ill stop lasix W ill interrogate ILR R eturn in 3 mos H is updated medication list for this problem includes: Aspirin 81 Mg Tablet,chewable (Aspirin) ..... Chew and swallow 1 tablet by mouth every day Enalapril Maleate 5 Mg Tablet (Enalapril maleate) ..... Take 1 tablet by mouth every day Juhiblossom Meyers [facility] Cardiology Asim Carlos MD Cardiology Asim Carlos MD Cardiology Asim Carlos MD Cardiology Asim Carlos MD Cardiology Asim Carlos MD Cardiology Asim Carlos MD Cardiology Asim Carlos MD Cardiology:AIF negative Asim ford MD Cardiology:ILR at EOS. Needs to be replaced. Asim Carlos MD Cardiology:Had abnor mal stress test x 2 in past with no cath done. Needs cath to r/o CAD. Asim Carlos MD Cardiology Asim Carlos MD Cardiology Asim Carlos MD Cardiology Asim Breanna GONZALEZ Cardiology:Normal AIF Asim Flakita ramirez MD Cardiology Asim Breanna GONZALEZ Cardiology Asimcheikh Carlos MD Cardiology Asimcheikh Carlos MD Cardiology Asim Breanna GONZALEZ Cardiology Asim Breanna GONZALEZ Cardiology Asim Breanna GONZALEZ Cardiology Asim Breanna GONZALEZ Electrophysiology: R ecent device check showed no abnormalities, normal function. Kris Noriega MD Electrophysiology: B P today: 132/87 P rior BP: 116/72 (03/14/2022) Labs Reviewed: C reat: 0.6 (05/26/2015) C hol: 220.0 (05/26/2015) HDL: 27.0 (05/26/2015) T.0 (05/26/2015) His updated medication list for this problem includes: Lasix 40 Mg Tablet (Furosemide) ..... Take 1 tablet by mouth once a day Aspirin 81 Mg Tablet,chewable (Aspirin) ..... Chew 1 tablet by mouth once a day Enalapril Maleate 5 Mg Tablet (Enalapril maleate) ..... Take 1 tablet by mouth every day Kris Noriega MD Electrophysiology:Tonny major did not have LOC with his episode of shortness of breath but became very weak and had to lie down on the floor. H is updated medication list for this problem includes: Aspirin 81 Mg Tablet,chewable (Aspirin) ..... Chew 1 tablet by mouth once a day Enalapril Maleate 5 Mg Tablet (Enalapril maleate) ..... Take 1 tablet by mouth every day Kris Noriega MD Electrophysiology:As sociated with his SOB. HIs stress showed fixed defect, we will check CTA coronaries to evaluate sxs. H is updated medication list for this problem includes: Aspirin 81 Mg Tablet,chewable (Aspirin) ..... Chew 1 tablet by mouth once a day Enalapril Maleate 5 Mg Tablet (Enalapril maleate) ..... Take 1 tablet by mouth every day Kris Noriega MD Electrophysiology:Tonny major reports yesterday he was at [facility] and he started to experience significant shortness of breath which became progressively worse, had associated chest discomfort, back pain. S tress test shows abnormal perfusion imaging in the inferolateral wall with a moderate perfusion defect, which is moderate in size and is not reversible. I reccomend pt undergo CTA coronaries to evaluate further given his symptoms of shortness of breath and the stress results. Kris Noriega MD Electrophysiology: R ecent device check showed no abnormalities, normal function. Osei Walker Electrophysiology:As sociated with his SOB. HIs stress showed fixed defect, we will check CTA coronaries to evaluate sxs. Osei Walker Electrophysiology: B P today: 132/87 P rior BP: 116/72 (03/14/2022) Labs Reviewed: C reat: 0.6 (05/26/2015) C hol: 220.0 (05/26/2015) HDL: 27.0 (05/26/2015) T.0 (05/26/2015) Osei Walker Electrophysiology:Tonny moriah did not have LOC with his episode of shortness of breath but became very weak and had to lie down on the floor. Osei Walker Electrophysiology:Tonny major reports yesterday he was at [facility] and he started to experience significant shortness of breath which became progressively worse, had associated chest discomfort, back pain. S tress test shows abnormal perfusion imaging in the inferolateral wall with a moderate perfusion defect, which is moderate in size and is not reversible. I reccomend pt undergo CTA coronaries to evaluate further given his symptoms of shortness of breath and the stress results. Osei Walker Cardiology Asim Carlos MD Cardiology Asim Carlos MD Cardiology Asim Carlos MD Cardiology Asim Carlos MD Cardiology Asim Carlos MD Cardiology Asim Carlos MD Cardiology Asim Carlos MD Cardiology Asim Carlos MD Cardiology Asim Carlos MD Cardiology Asim Carlos MD Cardiology Asim Carlos MD Cardiology Asim Carlos MD Cardiology Asim Carlos MD Cardiology Asim Carlos MD Cardiology Asim Carlos MD Cardiology Asim Carlos MD Cardiology Asim Carlos MD Cardiology Asim Carlos MD Cardiology Asim Carlos MD Cardiology Asim Carlos MD Cardiology Asim Carlos MD Cardiology Asim Carlos MD Cardiology Asim Carlos MD Cardiology Asim Carlos MD Cardiology Asim Carlos MD Cardiology Asim Carlos MD Cardiology follow up Long cervantes MD Cardiology follow up Long cervantes MD Cardiology follow up :WIll recheck his venous studies and give his a diuretic to try to decrease fluid in his legs. Long Ferrell MD Cardiology Follow up Asim rios MD Cardiology Follow up Asim rios MD Cardiology Follow up Asim rios MD Cardiology Follow up Asim rios MD Cardiology Follow up Asim rios MD Cardiology Follow up Asim rios MD Cardiology Asim Carlos MD Cardiology Asim Carlos MD Cardiology Asim Carlos MD Cardiology Asim Carlos MD Cardiology:Refer to pulmonary Ra raghuq Breanna GONZALEZ Cardiology:Work up negative for cardiac etiology. Asim Carlos MD Cardiology follow up Asim rios MD Cardiology follow up Asim rios MD Cardiology follow up Asim rios MD Cardiology follow up Asim rios MD Cardiology follow up Asim rios MD Cardiology follow up Asim rios MD Cardiology hospital follow up Ra fiq Breanna GONZALEZ Cardiology hospital follow up Ra fiq Breanna GONZALEZ Cardiology hospital follow up Ra fiq Breanna GONZALEZ Cardiology hospital follow up Ra fiq Breanna GONZALEZ Cardiology hospital follow up Ra fiq Breanna GONZALEZ Cardiology hospital follow up Ra fiq Breanna GONZALEZ Cardiology hospital follow up Ra fiq Breanna GONZALEZ Cardiology Asim Carlos MD Cardiology Asimcheikh Carlos MD Cardiology Asim Carlos MD Cardiology Asim Carlos MD Cardiology Asim Carlos MD Cardiology Asim Carlos MD Cardiology Asim Carlos MD Cardiology Asim Carlos MD Cardiology Asim Carlos MD Cardiology Asim Carlos MD Cardiology Asim Carlos MD Cardiology Asim Carlos MD Cardiology follow up Asim rios MD Cardiology follow up Asim rios MD Cardiology follow up Asim rios MD Cardiology follow up Asim rios MD Cardiology follow up Asim rios MD Cardiology follow up Asim rios MD Cardiology Asim Carlos MD Cardiology Asim Carlos MD Cardiology Asim Carlos MD Cardiology Asim Carlos MD Cardiology Asim Carlos MD Cardiology:Normal AI F 2016 A BI pending Asim Carlos MD Cardiology follow up Long cervantes MD Cardiology follow up : B P today: 122/80 P rior BP: 132/78 (09/04/2017) His updated medication list for this problem includes: Aspirin 81 Mg Oral Tablet Chewable (Aspirin) ..... Take 1 tab daily Enalapril Maleate 5 Mg Oral Tablet (Enalapril maleate) ..... Take 1 tablet once a day. Long Ferrell MD Cardiology follow up :Will order DOROTHY and standing venous doppler. He has clear signs of venous insufficiency but I can feel his pulse. His sx do seem exertional so we will make sure he doesnt have new arterial blockages. Long Ferrell MD Cardiology Asim Carlos MD Cardiology Asim Carlos MD Cardiology Asim Carlos MD Cardiology Asim Carlos MD Cardiology Asim Carlos MD Cardiology Asim Carlos MD Cardiology Asim Carlos MD Cardiology Asim Carlos MD Cardiology Asim Carlos MD Cardiology Asim Carlos MD Cardiology Asim Carlos MD Cardiology Asim Carlos MD Cardiology Asim Carlos MD Cardiology -ltr fxd: BP today: 143/90 P rior BP: 158/97 (07/04/2016) Sahillety Beck MD Cardiology -ltr fxd: ceap 4b on exam, Lt>Rt H e was recommended to try compression stockings for his venous reflux, but he did not try these yet. D iscussed conservative measures including thigh high 20-30mmHg compression stockings, leg elevation, and ambulation Sahil Beck MD Cardiology -ltr fxd: ceap 4b on exam, Lt>Rt H e was recommended to try compression stockings for his venous reflux, but he did not try these yet. D iscussed conservative measures including thigh high 20-30mmHg compression stockings, leg elevation, and ambulation Sahileddie Beck MD Cardiology Asim Carlos MD Cardiology Asim Carlos MD Cardiology Asim Carlos MD Cardiology Asim Carlos MD Cardiology Asim Carlos MD Cardiology Asim Carlos MD Cardiology Asim Carlos MD Cardiology: He c/o b ilateral calf pains and bilateral thigh pains. He describes his leg pains as mostly pressure. The leg pains stay constant when sitting, standing, walking, or lying in bed. The only time the leg pains are better are when he takes ibuprofen and the pain goes for away for awhile. He gets leg cramps at night. He also has leg swelling which is present and unchanged in morning or evening. He has no history of DVT. He hs no PAD by AIF. His venous u/s showed left GSV reflux but no reflux on the RLE. his sx are equal bilaterally but CVI only seen on LLE h e has hyperpigmentation BLE anterior shins and this might be controlled with venous occlusion D iscussed conserverative measures - including ambulation, leg elevation, and thigh high 20-30mmHg compresion stockings Linda Singletary RN Cardiology:Dennis Roni lindo is here for evaluation of leg pains. He c/o bilateral calf pains and bilateral thigh pains. He describes his leg pains as mostly pressure. The leg pains stay constant when sitting, standing, walking, or lying in bed. The only time the leg pains are better are when he takes ibuprofen and the pain goes for away for awhile. Pain does not get worse with walking. He gets leg cramps at night. He also has leg swelling which is present and unchanged in morning or evening. He has no history of DVT. He hs no PAD by AIF. His venous u/s showed left GSV reflux but no reflux on the RLE. his sx are equal bilaterally but CVI only seen on LLE d ount sipnal stenosis based on sx a dvised to hold statins and fenofibrate for 2 weeks to see if sx improve Linda Singletary RN Cardiology:BP today: 120/70 Linda Singletary RN Cardiology Asim Carlos MD Cardiology Asim Carlos MD Cardiology Asim Carlos MD Cardiology Asim Carlos MD Cardiology Asim Carlos MD Cardiology:Normal DOROTHY Asim ramirez MD Cardiology:So far ILR shows no e tiology Asimcheikh Carlos MD Cardiology Asim Rammeli GONZALEZ Cardiology Asim Breanna GONZALEZ Cardiology Asim Rammeli GONZALEZ Cardiology Asim Breanna GONZALEZ Cardiology:Normal ABIs and malika l AIF Asim Carlos MD Cardiology Asim Carlos MD Cardiology Asim Carlos MD Cardiology Asim Carlos MD Cardiology Asimcheikh Carlos MD Cardiology Asim Carlos MD Cardiology Asim Carlos MD Cardiology Maggie Grimes MD Cardiology Maggie Grimes MD Cardiology Maggie Grimes MD Cardiology Maggie Grimes MD Cardiology Asim Carlos MD Cardiology Asim Carlos MD Cardiology Asim Carlos MD Cardiology Asim Carlos MD Cardiology Asim Carlos MD Cardiology:neg serafin di, had trouplbe with tele, will loop, ? arrymia vs viktoria Sheffield MD Cardiology:Summary 1 . Normal myocardial perfusion imaging after vasodilator stress with Regadenoson. 2 . Normal left ventricular systolic function with a calculated ejection fraction of 70%. 3. No obvious significant scintigraphic evidence of myocardial ischemia or scar. . ................................................... ...............Reina Osborn MD October 14, 2014 5:10 PM Siddharth Sheffield MD Cardiology:neg us 13 Siddharth mark MD Cardiology:had lobectomy for cur e Siddharth Sheffield MD Cardiology:sees pulmonary Siddharth Sheffield MD :1. Normal left vent ricular systolic function. Normal left ventricular size. Normal left ventricular wall t hickness. There is E to A wave reversal consistent with impaired LV relaxation. Normal E/E` 5.2. Left v entricular ejection fraction is estimated at 60 %. 2 . No significant valvular abnormalities. 3 . The left atrium is normal in size. Left atrial volume index is 21.9. Siddharth Sheffield MD :1. Normal left vent ricular systolic function. Normal left ventricular size. Normal left ventricular wall t hickness. There is E to A wave reversal consistent with impaired LV relaxation. Normal E/E` 5.2. Left v entricular ejection fraction is estimated at 60 %. 2 . No significant valvular abnormalities. 3 . The left atrium is normal in size. Left atrial volume index is 21.9. Siddharth Sheffield MD Cardiology Mary Mcgrath P Cardiology:BP 120/84 Mary mart NP Cardiology:Was unabl e to wear event monitor due to device malfunction. Patient did not wish to wear event monitor again. Will let us know if he has any further syncopal episodes and will wear event monitor at that time. Mary Gutierrez NP Cardiology:Normal st ress test (10/14/2014) Will repeat echo as last echo was in 2008. Mary Gutierrez NP test results: H is updated medication list for this problem includes: Enalapril Maleate 20 Mg Tabs (Enalapril maleate) ..... One tab. daily Klonopin 1 Mg Tabs (Clonazepam) ..... 1 tablet by mouth daily BP today: 113/66 Prior BP: 142/86 (06/25/2009) H gb: 13.8 (06/14/2009) HCT: 40.7 (06/14/2009) RBC: 4.38 (06/14/2009) WBC: 6.5 (06/14/2009) B UN: 12 (06/14/2009) Creat: 0.97 (06/14/2009) Glucose: 97 (06/14/2009) N a+: 140 (06/14/2009) K+: 3.8 (06/14/2009) Cl: 110 (06/14/2009) Calcium: 8.2 (06/14/2009) Nuclear Stress Findings: 1. Regadenoson mediated myocardial perfusion study 2 . Abnormal left ventricular systolic function with a calculated ejection fraction of 44%. 3 . No obvious significant scintigraphic evidence of myocardial ischemia or scar. (06/03/2009) E chocardiogram: Normal left ventricular systolic function. Normal left ventricular size. Normal left ventricular wall thickness. Normal left ventricular diastolic function. Normal E/E` 3.5. Left ventricular ejection fraction is estimated at 60%. Normal right ventricular size. Normal right ventricular systolic function. The mitral valve is normal in appearance and function. Aortic valve appears structurally normal. Normal aortic root. (04/27/2009) C ardiac Cath: No evidene of hemodynamically significant obstructive CAD. The left ventricular systolic function is preseverd with an EF of 60%. THere was a small gradient of 5mmHg acorss the aortic valve. Successful closure of the right groin using 6-Spanish Angio-Seal closure device. (07/17/2005) Long Ferrell MD test results: H is updated medication list for this problem includes: Enalapril Maleate 20 Mg Tabs (Enalapril maleate) ..... One tab. daily Lipitor 20 Mg Tabs (Atorvastatin calcium) ..... One tab. daily BP today: 113/66 Prior BP: 142/86 (06/25/2009) N uclear Stress Findings: 1. Regadenoson mediated myocardial perfusion study 2 . Abnormal left ventricular systolic function with a calculated ejection fraction of 44%. 3 . No obvious significant scintigraphic evidence of myocardial ischemia or scar. (06/03/2009) C ardiac Cath: No evidene of hemodynamically significant obstructive CAD. The left ventricular systolic function is preseverd with an EF of 60%. THere was a small gradient of 5mmHg acorss the aortic valve. Successful closure of the right groin using 6-Spanish Angio-Seal closure device. (07/17/2005) C arotid Doppler/Duplex: Normal carotid study [facility] (05/24/2009) H gb: 13.8 (06/14/2009) HCT: 40.7 (06/14/2009) RBC: 4.38 (06/14/2009) WBC: 6.5 (06/14/2009) B UN: 12 (06/14/2009) Creat: 0.97 (06/14/2009) Glucose: 97 (06/14/2009) N a+: 140 (06/14/2009) K+: 3.8 (06/14/2009) Cl: 110 (06/14/2009) Long Ferrell MD test results Long Ferrell MD Hospital Follow-up: T he following medications were removed from the medication list: Depakote 500 Mg Tbec (Divalproex sodium) ..... 2 tabs every morn His updated medication list for this problem includes: Topamax 200 Mg Tabs (Topiramate) ..... Bid Depakote 500 Mg Tbec (Divalproex sodium) ..... 1 tablet by mouth in the morning and 2 tablets by mouth in the evening Klonopin 1 Mg Tabs (Clonazepam) ..... 1 tablet by mouth daily Long Ferrell MD Hospital Follow-up: H is updated medication list for this problem includes: Enalapril Maleate 20 Mg Tabs (Enalapril maleate) ..... One tab. twice daily Klonopin 1 Mg Tabs (Clonazepam) ..... 1 tablet by mouth daily Long Ferrell MD Hospital Follow-up: H is updated medication list for this problem includes: Enalapril Maleate 20 Mg Tabs (Enalapril maleate) ..... One tab. twice daily Lipitor 20 Mg Tabs (Atorvastatin calcium) ..... One tab. daily BP today: 142/86 Prior BP: 126/80 (04/02/2009) N uclear Stress Findings: 1. Regadenoson mediated myocardial perfusion study 2 . Abnormal left ventricular systolic function with a calculated ejection fraction of 44%. 3 . No obvious significant scintigraphic evidence of myocardial ischemia or scar. GC (06/03/2009) C ardiac Cath: No evidene of hemodynamically significant obstructive CAD. The left ventricular systolic function is preseverd with an EF of 60%. THere was a small gradient of 5mmHg acorss the aortic valve. Successful closure of the right groin using 6-Spanish Angio-Seal closure device. (07/17/2005) Long Ferrell MD Hospital Follow-up:for sleep les dy on sunday. Long Ferrell MD Hospital Follow-up Long Ferrell MD routine: T he following medications were removed from the medication list: Lyrica 75 Mg Caps (Pregabalin) His updated medication list for this problem includes: Topamax 200 Mg Tabs (Topiramate) ..... Bid Depakote Er 250 Mg Tb24 (Divalproex sodium) ..... Qd Long Ferrell MD routine: H is updated medication list for this problem includes: Enalapril Maleate 20 Mg Tabs (Enalapril maleate) ..... One tab. daily BP today: 126/80 Prior BP: 119/76 (01/09/2008) Nuclear Stress Findings: Normal resting EKG except incomplete right bundle branch block, rate 77bpm. No ST segment depression in he inferior or the lateral leads to suggest ischemia. Normal myocardial perfusion without infarct or ischemia. Normal gated study with LVEF of 61%. (06/29/2006) C ardiac Cath: No evidene of hemodynamically significant obstructive CAD. The left ventricular systolic function is preseverd with an EF of 60%. THere was a small gradient of 5mmHg acorss the aortic valve. Successful closure of the right groin using 6-Spanish Angio-Seal closure device. (07/17/2005) E chocardiogram: Normal LV systolic function with an EF of 60%. Trace MR & TR. (11/02/2006) Long Ferrell MD routine: H is updated medication list for this problem includes: Lipitor 20 Mg Tabs (Atorvastatin calcium) ..... One tab. daily BP today: 126/80 Prior BP: 119/76 (01/09/2008) Long Ferrell MD routine: H is updated medication list for this problem includes: Enalapril Maleate 20 Mg Tabs (Enalapril maleate) ..... One tab. daily BP today: 126/80 Prior BP: 119/76 (01/09/2008) Nuclear Stress Findings: Normal resting EKG except incomplete right bundle branch block, rate 77bpm. No ST segment depression in he inferior or the lateral leads to suggest ischemia. Normal myocardial perfusion without infarct or ischemia. Normal gated study with LVEF of 61%. (06/29/2006) E chocardiogram: Normal LV systolic function with an EF of 60%. Trace MR & TR. (11/02/2006) C ardiac Cath: No evidene of hemodynamically significant obstructive CAD. The left ventricular systolic function is preseverd with an EF of 60%. THere was a small gradient of 5mmHg acorss the aortic valve. Successful closure of the right groin using 6-Spanish Angio-Seal closure device. (07/17/2005) Long Ferrell MD routine: H is updated medication list for this problem includes: Enalapril Maleate 20 Mg Tabs (Enalapril maleate) ..... One tab. daily Lipitor 20 Mg Tabs (Atorvastatin calcium) ..... One tab. daily BP today: 126/80 Prior BP: 119/76 (01/09/2008) N uclear Stress Findings: Normal resting EKG except incomplete right bundle branch block, rate 77bpm. No ST segment depression in he inferior or the lateral leads to suggest ischemia. Normal myocardial perfusion without infarct or ischemia. Normal gated study with LVEF of 61%. (06/29/2006) C ardiac Cath: No evidene of hemodynamically significant obstructive CAD. The left ventricular systolic function is preseverd with an EF of 60%. THere was a small gradient of 5mmHg acorss the aortic valve. Successful closure of the right groin using 6-Spanish Angio-Seal closure device. (07/17/2005) Long Ferrell MD lightheaded: H is updated medication list for this problem includes: Enalapril Maleate 20 Mg Tabs (Enalapril maleate) ..... One tab. daily n o cad Long Ferrell MD lightheaded: H is updated medication list for this problem includes: Acetazolamide 250 Mg Tabs (Acetazolamide) ..... Bid Enalapril Maleate 20 Mg Tabs (Enalapril maleate) ..... One tab. daily Long Ferrell MD lightheaded: H is updated medication list for this problem includes: Topamax 200 Mg Tabs (Topiramate) ..... Bid Depakote Er 250 Mg Tb24 (Divalproex sodium) ..... Qd Lyrica 75 Mg Caps (Pregabalin) Orders: E KG ([id number]) p er dr cassidy Ferrell MD lightheaded: H is updated medication list for this problem includes: Enalapril Maleate 20 Mg Tabs (Enalapril maleate) ..... One tab. daily h is bp was fine. i am not sure what is wrong but he i have asked him to go to the er Long Ferrell MD Date Name Complete Echo PROTHROMBIN TIME WIT H INR LIPID PANEL CBC (INCLUDES DIFF/P LT) BASIC METABOLIC PANE L W/EGFR Creatinine, Serum TSH, 3RD GENERATION W/REFLEX TO FT4 CBC (INCLUDES DIFF/P LT) LIPID PANEL COMPREHENSIVE METABO LIC PANEL, W/EGFR Complete Echo Stress Exercise Card iolite Venous Doppler Bilat eral LE - Reflux Stress Regadenoson Complete Echo Microalb/Creatinine Urine, Random PROBNP, N TERMINAL COMPREHENSIVE METABO LIC PANEL, W/EGFR Arterial Duplex Bi-L ower EX CT Abdomen/pelvis wi thout contrast DLCO - 45394 FRC - 69837 FVC - 59050 Stress Regadenoson Complete Echo Venous Doppler Bilat eral LE - Reflux Arterial Duplex Bi-L ower EX IRON AND TOTAL IRON BINDING CAPACITY FERRITIN CBC (INCLUDES DIFF/P LT) STR - Adenosine Complete Echo Sleep Study Home Venous Doppler Bilat eral LE - Standing PROTHROMBIN TIME WIT H INR CBC (H/H, RBC, INDIC ES, WBC, PLT) LIPID PANEL BASIC METABOLIC PANE L W/EGFR PROTHROMBIN TIME WIT H INR CBC (H/H, RBC, INDIC ES, WBC, PLT) BASIC METABOLIC PANE L W/EGFR THYROID PANEL WITH T SH, 3RD GENERATION PARTIAL THROMBOPLAST IN TIME, ACTIVATED PROTHROMBIN TIME WIT H INR Loop Rec Implant - G C X-Ray, Other Sleep Study Home Arterial Duplex Bi-L ower EX C-REACTIVE PROTEIN LIPID PANEL COMPREHENSIVE METABO LIC PANEL W/EGFR PROBNP, N TERMINAL RPR (MONITOR) W/REFL TITER VITAMIN D, 25-HYDROX Y, LC/MS/MS HEMOGLOBIN A1c VITAMIN B12 RETICULOCYTE COUNT IRON AND TOTAL IRON BINDING CAPACITY FOLATE, SERUM FERRITIN CBC (INCLUDES DIFF/P LT) Complete Echo COMPREHENSIVE METABO LIC PANEL W/EGFR LIPID PANEL Sleep Study Complete Echo HISTORY OF PROCEDURES Procedure Date Procedure Name Provider Procedure Notes S tatus EKG Asim Carlos MD complete d EKG Kris montano MD completed EKG Asim Carlos MD complete d EKG Asim Carlos MD complete d EKG Asim Carlos MD complete d Regadenoson, 4 units Asim Carlos MD completed Cardiolite, 2 units Asim Carlos MD completed SPECT Images Maggie Grimes MD complet ed Stress EKG Siddharth Sheffield MD complete d FVC / MVV - 40234 Asim Carlos MD c ompleted FRC - 13594 Asim Carlos MD complet ed SpO2 w/o 6min walk/titration Asim Carlos MD completed DLCO - 84214 Asim Carlos MD comple daron EKG Asim Carlos MD complete d Loop Recorder Interrogation, Remote Asim Carlos MD INTERROGATION EVALUATION REMOTE </30 D ILR SYS completed ICM Interrogation, Remote (Tech) Asim Carlos MD INTERROGATION EVAL REMOTE </30 D TECH REVIEW completed Loop Recorder Interrogation, Remote Asim Carlos MD INTERROGATION EVALUATION REMOTE </30 D ILR SYS completed ICM Interrogation, Remote (Tech) Asim Carlos MD INTERROGATION EVAL REMOTE </30 D TECH REVIEW completed Loop Recorder Interrogation, Remote Asim Carlos MD INTERROGATION EVALUATION REMOTE </30 D ILR SYS completed ICM Interrogation, Remote (Tech) Asim Carlos MD INTERROGATION EVAL REMOTE </30 D TECH REVIEW completed Loop Recorder Interrogation, Remote Asim Carlos MD INTERROGATION EVALUATION REMOTE </30 D ILR SYS completed ICM Interrogation, Remote (Tech) Asim Carlos MD INTERROGATION EVAL REMOTE </30 D TECH REVIEW completed Loop Recorder Interrogation, Remote Asim Carlos MD INTERROGATION EVALUATION REMOTE </30 D ILR SYS completed ICM Interrogation, Remote (Tech) Asim Carlos MD INTERROGATION EVAL REMOTE </30 D TECH REVIEW completed Loop Recorder Interrogation, Remote Asim Carlos MD INTERROGATION EVALUATION REMOTE </30 D ILR SYS completed ICM Interrogation, Remote (Tech) Asim Carlos MD INTERROGATION EVAL REMOTE </30 D TECH REVIEW completed Loop Recorder Interrogation, Remote Asim Carlos MD INTERROGATION EVALUATION REMOTE </30 D ILR SYS completed ICM Interrogation, Remote (Tech) Asim Carlos MD INTERROGATION EVAL REMOTE </30 D TECH REVIEW completed Loop Recorder Interrogation, Remote Asim Carlos MD INTERROGATION EVALUATION REMOTE </30 D ILR SYS completed ICM Interrogation, Remote (Tech) Asim Carlos MD INTERROGATION EVAL REMOTE </30 D TECH REVIEW completed EKG Asim Carlos MD complete d Loop Recorder Interrogation, Remote Asim Carlos MD INTERROGATION EVALUATION REMOTE </30 D ILR SYS completed ICM Interrogation, Remote (Tech) Asim Carlos MD INTERROGATION EVAL REMOTE </30 D TECH REVIEW completed Loop Recorder Interrogation, Remote Asim Carlos MD INTERROGATION EVALUATION REMOTE </30 D ILR SYS completed ICM Interrogation, Remote (Tech) Asim Carlos MD INTERROGATION EVAL REMOTE </30 D TECH REVIEW completed Loop Recorder Interrogation, Remote Asim Carlos MD INTERROGATION EVALUATION REMOTE </30 D ILR SYS completed ICM Interrogation, Remote (Tech) Asim Carlos MD INTERROGATION EVAL REMOTE </30 D TECH REVIEW completed Loop Recorder Interrogation, Remote Asim Carlos MD INTERROGATION EVALUATION REMOTE </30 D ILR SYS completed ICM Interrogation, Remote (Tech) Asim Carlos MD INTERROGATION EVAL REMOTE </30 D TECH REVIEW completed Loop Recorder Interrogation, Remote Asim Carlos MD INTERROGATION EVALUATION REMOTE </30 D ILR SYS completed ICM Interrogation, Remote (Tech) Asim Carlos MD INTERROGATION EVAL REMOTE </30 D TECH REVIEW completed SNOMED-CT: [id number] Current Medications Documented Asim Carlos MD completed Loop Recorder Interrogation, Remote Asim Carlos MD INTERROGATION EVALUATION REMOTE </30 D ILR SYS completed ICM Interrogation, Remote (Tech) Asim Carlos MD INTERROGATION EVAL REMOTE </30 D TECH REVIEW completed Loop Recorder Interrogation, Remote Asim Carlos MD INTERROGATION EVALUATION REMOTE </30 D ILR SYS completed ICM Interrogation, Remote (Tech) Asim Carlos MD INTERROGATION EVAL REMOTE </30 D TECH REVIEW completed Loop Recorder Interrogation, Remote Asim Carlos MD INTERROGATION EVALUATION REMOTE </30 D ILR SYS completed ICM Interrogation, Remote (Tech) Asim Carlos MD INTERROGATION EVAL REMOTE </30 D TECH REVIEW completed Loop Recorder Interrogation, Remote Asim Carlos MD INTERROGATION EVALUATION REMOTE </30 D ILR SYS completed ICM Interrogation, Remote (Tech) Asim Carlos MD INTERROGATION EVAL REMOTE </30 D TECH REVIEW completed Loop Recorder Interrogation, Remote Asim Carlos MD INTERROGATION EVALUATION REMOTE </30 D ILR SYS completed ICM Interrogation, Remote (Tech) Asim Carlos MD INTERROGATION EVAL REMOTE </30 D TECH REVIEW completed SNOMED-CT: [id number] Current Medications Documented Sahil Beck MD completed Loop Recorder Interrogation, Remote Asim Carlos MD INTERROGATION EVALUATION REMOTE </30 D ILR SYS completed ICM Interrogation, Remote (Tech) Asim Carlos MD INTERROGATION EVAL REMOTE </30 D TECH REVIEW completed SNOMED-CT: [id number] Current Medications Documented Sahil Beck MD completed Loop Recorder Interrogation, Remote Asim Carlos MD INTERROGATION EVALUATION REMOTE </30 D ILR SYS completed ICM Interrogation, Remote (Tech) Asim Carlos MD INTERROGATION EVAL REMOTE </30 D TECH REVIEW completed EKG Asim Carlos MD complete d SNOMED-CT: [id number] Current Medications Documented Asim Carlos MD completed Loop Recorder Interrogation, Remote Asim Carlos MD INTERROGATION EVALUATION REMOTE </30 D ILR SYS completed ICM Interrogation, Remote (Tech) Asim Carlos MD INTERROGATION EVAL REMOTE </30 D TECH REVIEW completed Loop Recorder Interrogation, Remote Asim Carlos MD INTERROGATION EVALUATION REMOTE </30 D ILR SYS completed ICM Interrogation, Remote (Tech) Asim Carlos MD INTERROGATION EVAL REMOTE </30 D TECH REVIEW completed Loop Recorder Interrogation, Remote Asim Carlos MD INTERROGATION EVALUATION REMOTE </30 D ILR SYS completed ICM Interrogation, Remote (Tech) Asim Carlos MD INTERROGATION EVAL REMOTE </30 D TECH REVIEW completed SNOMED-CT: [id number] Smoking Cessation Counseling Sahil Beck MD completed SNOMED-CT: [id number] Current Medications Documented Sahil Beck MD completed Loop Recorder Interrogation, Remote Asim Carlos MD INTERROGATION EVALUATION REMOTE </30 D ILR SYS completed ICM Interrogation, Remote (Tech) Asim Carlos MD INTERROGATION EVAL REMOTE </30 D TECH REVIEW completed Loop Recorder Interrogation, Remote Asim Carlos MD INTERROGATION EVALUATION REMOTE </30 D ILR SYS completed ICM Interrogation, Remote (Tech) Asim Carlos MD INTERROGATION EVAL REMOTE </30 D TECH REVIEW completed SNOMED-CT: [id number] Current Medications Documented Asim Carlos MD completed SNOMED-CT: [id number] Current Medications Documented Asim Carlos MD completed Loop Recorder Interrogation, Remote Siddharth Sheffield MD INTERROGATION EVALUATION REMOTE </30 D ILR SYS completed ICM Interrogation, Remote (Tech) Siddharth Sheffield MD INTERROGATION EVAL REMOTE </30 D TECH REVIEW completed Loop Recorder Interrogation, Remote Siddharth Sheffield MD INTERROGATION EVALUATION REMOTE </30 D ILR SYS completed ICM Interrogation, Remote (Tech) Siddharth Sheffield MD INTERROGATION EVAL REMOTE </30 D TECH REVIEW completed Loop Recorder Interrogation, Remote Asim Carlos MD INTERROGATION EVALUATION REMOTE </30 D ILR SYS completed ICM Interrogation, Remote (Tech) Asim Carlos MD INTERROGATION EVAL REMOTE </30 D TECH REVIEW completed Loop Recorder Interrogation, Remote Asim Carlos MD INTERROGATION EVALUATION REMOTE </30 D ILR SYS completed ICM Interrogation, Remote (Tech) Asim Carlos MD INTERROGATION EVAL REMOTE </30 D TECH REVIEW completed Loop Recorder Interrogation, Remote Asim Carlos MD INTERROGATION EVALUATION REMOTE </30 D ILR SYS completed ICM Interrogation, Remote (Tech) Asim Carlos MD INTERROGATION EVAL REMOTE </30 D TECH REVIEW completed SNOMED-CT: [id number] Current Medications Documented Asim Carlos MD completed Loop Recorder Interrogation, Remote Asim Carlos MD INTERROGATION EVALUATION REMOTE </30 D ILR SYS completed ICM Interrogation, Remote (Tech) Asim Carlos MD INTERROGATION EVAL REMOTE </30 D TECH REVIEW completed SNOMED-CT: [id number] Physical Exam, Performed: Pulse Exam of Foot Toniya Grimes MD completed EKG Maggie Grimes MD completed SNOMED-CT: [id number] Current Medications Documented Maggie Grimes MD completed Loop Recorder Interrogation, Remote Asim Carlos MD INTERROGATION EVALUATION REMOTE </30 D ILR SYS completed ICM Interrogation, Remote (Tech) Asim Carlos MD INTERROGATION EVAL REMOTE </30 D TECH REVIEW completed SNOMED-CT: [id number] Current Medications Documented Asim Carlos MD completed SNOMED-CT: [id number] Current Medications Documented Long Ferrell MD completed EKG Long Ferrell MD completed EKG Long Ferrell MD completed
--- OUTSIDE RECORDS SUMMARY | 2024-05-24 02:05 | XMS_ITS | Encounter Summary ---
Author Organization [facility] Address [address] [place] [address] Phone Care Team Providers Care Coupling Machine Operator Name Role Phone Sergey Wilson MD Primary Care Provider [phone] Encounter Details Date Type Department Care Team (Late st Contact Info) Description 09/24/2023 Telephone [facility] Epilepsy [address] 6th [place] [address] [place] [address] Clifton Jose MD PhD [address] [place] [address] Social History Tobacco Use Types Packs/Day Years Used Date Smoking Tobacco: Former Cigarettes 1.3 52 S tarted: 1973 Smokeless Tobacco: Never Alcohol Use Standard Drinks/Week Comments No 0 (1 standard drink = 0.6 oz pur e alcohol) Sex and Gender Information Value Date Recorded Sex Assigned at Not on file 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 Jose, I called to clarify if Dennis had picked up his VPA DR saavedra and he has but he is unsure how long he has been taking them. He told me he has been having these episodes where he will be shopping at [employer] and will hear a funny noise in his ears, goes incoherent , gets heavy , loses his balance, and will fall to the floor. He reports sometimes he will have oral injury. He denies incontinence. He reports frequency of0 to 3 times per month. The event lasts less than one minute and he will return to baseline within 5 minutes. He is not driving. I suggested keeping a journal of these events. VPA level has been sent and Dennis is aware to have that drawn. Thank you, Carolina * Addendum Note - Carolina Castelan RN - 09/26/2023 10:33 AM CDTAddended by: CAROLINA CASTELAN on: 09/26/2023 10:33 AM Modules accepted: Orders * Telephone Encounter - Carolina Castelan RN - 09/26/2023 10:02 AM CDT Called and spoke to Dennis. He is in agreement to continue taking VPA ER 1000/1000 and having his lab drawn at [facility]. I asked him to call the office a few days after the lab was drawn to check to see if we had received the results. Will Update RX. [facility] Out[facility] lab: Fax for outpatient lab: [phone] Phone # for hospital: [phone] * Telephone Encounter - Clifton Jose MD PhD - 09/25/2023 3:31 PM CDT 13.7 would not be an expected level from VPA taken consistently at 1000/500 mg. Let's have him keeptaking 1000 mg bid for now and check a VPA level ourselves. We can let that level guide us if we want to try lowering it back down to 1000/500 mg, but let's get the level first. Jordan * Telephone Encounter - Carolina Castelan RN - 09/24/2023 8:47 AM CDT Dennis Cameron called to let us know that he was hospitalized on 09/01/23 at [facility] for diarrhea. (Notes in Epic) He had labs drawn and his VPA level was low (13.7) taking 1000/500. Denies missed doses or seizure events. The hospital increased Depakote ER to 1000/1000. Rx not updated in Epic. He asked if he should continue taking that Depakote ER 1000/1000. Next appointment ~ 12/18/23. Plan from 05/16/23: Plan 1. I advised him again today to follow through on talking therapies for non- epileptic events. Resources have been provided multiple times. 2. Continue TPM 200 mg bid. 3. Continue VPA ER 1000/500 mg. 4. Prudent safety precautions apply for any events with loss of awareness including NEE's 5. PMD to address mood including managing nortriptyline 6. F/U ~6-9 months. Call as needed. Thank you, Carolina documented in this encounter Plan of Treatment Scheduled Orders Name Type Priority Associated Diagnoses Orde r Schedule Valproic acid level, total Lab Routine Epilepsy with partial complex seizures (CMS/HCC) (HCC) Expected: 09/29/2023, Expires: 09/25/2024 documented as of this encounter Visit Diagnoses Diagnosis Epilepsy with partial complex seizures (HCC)- Primary documented in this encounter Discontinued Medications Medication Sig Discontinue Reason Start Date End Da te divalproex ER (DEPAKOTE ER) 500 mg 24 hr tablet Take 2 tablets (1,000 mg total) by mouth every morning AND 1 tablet (500 mg total) nightly. Reorder 05/16/2023 09/26/2023 documented as of this encounter Care Teams Coupling Machine Operator Relationship Specialty Start Date End Date Sergey Wilson MD PCP - General 09/20/16 documented as of this encounter
--- OUTSIDE RECORDS SUMMARY | 2024-05-24 02:05 | XMS_ITS | Clinical Summary ---
Author Organization [facility] Address [address] [place] [id number] Care Team Providers Care Lining Folder Name Role Phone Sergey Wilson MD Primary Care Provider [phone] Allergies Active Allergy Reactions Criticality Noted Date Comments Carbamazepine Flushing (skin) Low 07/06/2020 Metformin Other (See comments) Low 09/15/2020 Phenobarbital Unknown 09/25/2020 Medications ONETOUCH ULTRA BLUE TEST STRIP strip USE TO TEST QD 0 8 Active ONETOUCH ULTRA2 kit USE TO TEST QD 0 8 Active fluticasone propion-salmete rol (ADVAIR DISKUS) 250-50 mcg/dose diskus inhaler Inhale 1 puff 2 (two) times a day Rinse mouth with water after use. Do not swallow. Active aspirin 81 mg chewable tablet Take 1 tablet (81 mg total) by mouth daily Active citalopram (CeleXA) 40 mg tablet Take 1 tablet (40 mg total) by mouth every morning Active cyclobenzaprine (FLEXERIL) 10 mg tablet Take 1 tablet (10 mg total) by mouth 2 (two) times a day Active fluticasone propionate (FLONASE) 50 mcg/actuation nasal spray Administer 2 sprays into each nostril nightly Active enalapril (VASOTEC) 5 mg tablet Take 1 tablet (5 mg total) by mouth daily Active levothyroxine (SYNTHROID) 50 mcg tablet Take 1 tablet (50 mcg total) by mouth remodeler before breakfast Active montelukast (SINGULAIR) 10 mg tablet Take 1 tablet (10 mg total) by mouth daily Active nortriptyline (PAMELOR) 75 mg capsule Take 1 capsule (75 mg total) by mouth 2 (two) times a day Active omeprazole (PriLOSEC) 20 mg capsule Take 1 capsule (20 mg total) by mouth daily before breakfast Active empagliflozin (JARDIANCE) 25 mg tabletIndicatio ns:type 2 diabetes mellitus Take 1 tablet (25 mg total) by mouth daily Active pioglitazone (ACTOS) 30 mg tabletIndicatio ns:type 2 diabetes mellitus Take 1 tablet (30 mg total) by mouth daily Active omega-3 fatty acids (LOVAZA) 1 gram capsule Activ e rosuvastatin (CRESTOR) 40 mg tablet Take 1 tablet (40 mg total) by mouth nightly 1 Active fenofibrate (TRIGLIDE) 160 mg tablet Take 1 tablet (160 mg total) by mouth nightly 1 Active umeclidinium (INCRUSE ELLIPTA) 62.5 mcg/actuation blister with device Incruse Ellipta 62.5 mcg/actuation powder for inhalation Active naproxen sodium 220 mg capsule ALEVE CAPSULE 0 Active cyanocobalamin/ folic acid (vitamin F79-yreuu acid) 2,500-400 mcg tablet,disinteg rating 0 Active colchicine (COLCRYS) 0.6 mg tablet Active furosemide (LASIX) 40 mg tablet furosemide 40 mg tablet 1 Active ibuprofen (ADVIL,MOTRIN) 800 mg tablet TAKE 1 TABLET BY MOUTH TWICE DAILY NEEDED FOR PAIN 1 Active glimepiride (AMARYL) 1 mg tabletIndicatio ns:type 2 diabetes mellitus Take 2 tablets (2 mg total) by mouth 2 (two) times a day before breakfast and dinner Active cholecalciferol (VITAMIN D-3) 50,000 unit capsule Take 1 capsule (50,000 Units total) by mouth once a week sunday Active icosapent ethyL (VASCEPA) 1 gram capsule Take 2 capsules (2 g total) by mouth 2 (two) times a day Active amoxicillin (AMOXIL) 875 mg tablet Active ergocalciferol (VITAMIN D) 50,000 unit capsule Take 1 capsule (50,000 Units total) by mouth 2 Active meclizine (ANTIVERT) 12.5 mg tablet TAKE 1 TABLET BY MOUTH THREE TIMES DAILY NEEDED FOR DIZZINESS 2 Active acetaminophen-c odeine (TYLENOL with CODEINE #3) 300-30 mg per tablet 3 Active cefuroxime (CEFTIN) 500 mg tablet Take 1 tablet twice a day by oral route for 7 days. Active metoprolol (LOPRESSOR) 100 mg tablet Active Januvia 50 mg tablet Take 1 tablet (50 mg total) by mouth every morning Active albuterol HFA (PROVENTIL HFA,VENTOLIN HFA,PROAIR HFA) 90 mcg/actuation inhaler Inhale 2 puffs every 6 (six) hours as needed for shortness of breath 1 each 11 4 Active divalproex ER (DEPAKOTE ER) 500 mg 24 hr tablet Take 2 tablets (1,000 mg total) by mouth 2 (two) times a day 360 tablet 3 4 12/18/19 25 Active topiramate (TOPAMAX) 200 mg tablet Take 1 tablet (200 mg total) by mouth 2 (two) times a day 180 tablet 3 4 12/18/19 25 Active Active Problems Problem Noted Date Diagnosed Date ALLA (obstructive sleep apnea) 09/14/2020 Assessment & Plan (11/02/2023 3:11 PM CDT): He is intolerant to PAP therapy We have discussed the risks of uncorrected sleep apnea This may be a contributor to his dyspnea Nonepileptic episode 11/11/2019 Pacemaker 06/05/2019 Diabetes 06/05/2019 Hypertension 06/05/2019 Hypothyroidism 06/05/2019 Anxiety and depression 06/05/2019 GERD (gastroesophageal reflux disease) 0 Assessment & Plan (11/02/2023 3:15 PM CDT): Continue omeprazole 20 mg daily He has been well-controlled Avoid trigger foods Elevate head of bed while sleeping No eating 2-3 hours before bed 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 Recurrent seizures (CMS/HCC) 05/18/2015 Epilepsy with partial complex seizures 3 Syncope and collapse Exertional dyspnea Assessment & Plan (11/02/2023 3:12 PM CDT): He has had an extensive pulmonary evaluation which revealed no signs of obstructive or restrictive lung disease Does have clinical benefit from albuterol may be upper airway in nature, continue as needed only we have discussed indications for use Previously had no clinical decline after weaning off maintenance inhaled therapies His dyspnea is not pulmonary in origin I have encouraged him to continue follow-up with cardiology and neurology From my perspective he does not need pulmonology follow-up as there are no pulmonary diagnoses identified I have encouraged him to call as needed for an appointment with changes in condition Resolved Problems Problem Noted Date Diagnosed Date Resolved Date Asthma 06/05/2019 11/02/2023 Immunizations Name Administration Dates Next Due Influenza, Quadrivalent, Spl it, Preservative Free, Intramuscular 06/06/2019 Influenza, Unspecified 02/12/2020 Surgical History Surgery Date Site/Laterality Comments [place] CRANIOTOMY SELECTIVE AMYGDALOHIPPOCAMPECTOMY Craniotomy For Amygdalohippocampectomy - (Added by TW Conv) CARDIAC PACEMAKER PLACEMENT Pacemaker Placement - (Added by TW Conv) LOOP ELECTROSURGICAL EXCISIO N PROCEDURE 07/12/2023 [facility] Medical History Medical History Date Comments Reflux esophagitis Chronic Reflu x Esophagitis - (Added by TW Conv) Personal history of other di seases of the circulatory system History of hypertension - (A dded by TW Conv) Personal history of other me ntal and behavioral disorders History of depression - (Add ed by TW Conv) Anxiety disorder Anxiety - (Adde d by TW Conv) Personal history of other di seases of the respiratory system Personal history of asthma - (Added by TW Conv) Asthma Hypertension Seizures (HCC) Diabetes (HCC) 06/05/2019 Family History Medical History Relation Name Comments Brain cancer Brother Brain tumor - ( Added by TW Conv) Diabetes Brother Cancer Father Diabetes Sister Relation Name Status Comments Brother Father Sister Social History Tobacco Use Types Packs/Day Years Used Date Smoking Tobacco: Former Cigarettes 1.3 52 S tarted: 1972 Smokeless Tobacco: Never Tobacco Cessation:Counseling Given: Not Answered Alcohol Use Standard Drinks/Week Comments No 0 (1 standard drink = 0.6 oz pur e alcohol) Sex and Gender Information Value Date Recorded Sex Assigned at Not on file 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 Gender Identity Not on file Sexual Orientation Not on file Obstetrics History Last Filed Vital Signs Vital Sign Reading Time Taken Comments Blood Pressure 112/74 12/18/2023 9:14 AM CDT Pulse 83 12/18/2023 9:14 AM CDT Temperature 36.1 ??C (97 ??F) 11/02/2023 10:38 AM CDT Respiratory Rate 18 08/19/2021 3:59 PM CDT Oxygen Saturation 95% 11/02/2023 10:38 AM CDT Inhaled Oxygen Concentration - - Weight 103.4 kg (228 lb) 12/18/2023 9:14 AM CDT Height 175.3 cm (5' 9 ) 12/18/2023 9:14 AM CDT Body Mass Index 33.67 12/18/2023 9:14 AM CDT Plan of Treatment Health Maintenance Due Date Last Done Comments Albumin Creatinine Ratio, Urine 1964 Colon Cancer Screening-Colonoscopy 1964 Depression Screening 1964 Hemoglobin A1C 1964 Hepatitis C Screening 1964 Prostate Cancer Screening-PSA 1964 Dilated Eye Exam 1964 Foot Exam 1964 Lipid Panel 1964 DTaP/Tdap/Td Vaccine (1 - Tdap) 02/23/1975 Hepatitis B Screening 02/23/1982 Regular Well Visit/Exam 18-64 02/23/1982 Zoster Vaccine (1 of 2) 02/23/2014 Pneumococcal vaccine <65 (2 of 2 - PPSV23 or PCV20) 04/23/2015 02/26/2015, 02/06/2013, 01/12/2013 eGFR 02/15/2023 02/15/2022, 02/2 05/2021, 08/29/2020, Additional history exists Influenza Vaccine (#1) 2024 , 02/25/2020, 02/18/2020, Additional history exists Procedures Procedure Name Priority Date/Time Associated Diagnosis Comments EGFR Routine 02/15/2022 10:57 AM CDT High risk medication use from Last 3 Months or Most Recently Relevant to Health Maintenance Results * (ABNORMAL) eGFR (02/15/2022 10:57 AM CDT) eGFR 87(L) 90 - 130 mL/min/1. 73 m2 [facility] Comment: Interpretive Data Reference Interval Normal ?>/= 90 mL/min/1.73m2 Mildly decreased* ? 60 - 89 mL/min/1.73m2 Mildly to moderately decreased ?45 - 59 mL/min/1.73m2 Moderately to severely decreased ??30 - 44 mL/min/1.73m2 Severely decreased ?15 - 29 mL/min/1.73m2 Kidney Failure ?< 15 ??mL/min/1.73m2 *Relative to young adult level Estimated glomerular filtration rate is determined by the 2020 CKD-EPI equation recommended by the National Kidney Foundation (A Unifying Approach to GFR Estimation: Recommendations of the NKF-ASK Task Force on Reassessing the Inclusion of Race in Diagnosing Kidney Disease, JASN 2020). The CKD-EPI equation should not be used for patients with unstable renal function and has not been validated in children and those over 70. Current interpretive data was last reviewed 2021. Blood 02/15/2022 10:5 7 AM CDT 02/15/2022 11:35 AM CDT us Clifton Jose MD PhD LAB BLOOD ORDERABLES Adeline miller Result [facility] Department [place] [address] from Last 3 Months or Most Recently Relevant to Health Maintenance Insurance [employer] MED[employer] SOLUTIONS [employer] MED[employer] SOL[employer]IONS MEDICARE SOLUTIONS IDPA Advance Directives For more information, please contact: [phone] * Full Code (Latest Code Status on File) Date Activated Date Inactivated Comments 08/17/2021 7:34 AM 08/19/2021 10:29 PM * Full Code Date Activated Date Inactivated Comments 07/20/2020 10:14 AM 07/26/2020 7:25 PM * Full Code Date Activated Date Inactivated Comments 06/06/2019 2:57 AM 06/08/2019 2:23 AM Care Teams Lining Folder Relationship Specialty Start Date End Date Sergey Wilson MD PCP - General 09/20/16
--- OUTSIDE RECORDS SUMMARY | 2024-05-24 02:05 | XMS_ITS | Encounter Summary ---
Author Organization [facility] Address [address] [place] [address] Phone Care Team Providers Care Gunner'S Mate Name Role Phone Sergey Wilson MD Primary Care Provider [phone] Encounter Details Date Type Department Care Team (Late st Contact Info) Description 01/18/2024 Telephone [facility] Epilepsy [address] 6th [place] [address] [place] [address] Clifton Jose MD PhD [address] [place] [address] Social History Tobacco Use Types Packs/Day Years Used Date Smoking Tobacco: Former Cigarettes 1.3 52 S tarted: 1973 Smokeless Tobacco: Never Alcohol Use Standard Drinks/Week Comments No 0 (1 standard drink = 0.6 oz pur e alcohol) Sex and Gender Information Value Date Recorded Sex Assigned at Not on file 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 The fall was unrelated to a seizure. The patient was cleaning. He reported he hurt his arms. Patient was notified to contact PCP. Patient verbalized that he understands. documented in this encounter Plan of Treatment Not on file documented as of this encounter Visit Diagnoses Not on filedocumented in this encounter Care Teams Gunner'S Mate Relationship Specialty Start Date End Date Sergey Wilson MD PCP - General 09/20/16 documented as of this encounter
--- OUTSIDE RECORDS SUMMARY | 2024-05-24 02:05 | XMS_ITS | Encounter Summary ---
Author Organization [facility] Address [address] [place] [address] Care Team Providers Care Military Administrative Technician Name Role Phone Sergey Wilson MD Primary Care Provider [phone] Encounter Details Date Type Department Care Team (Late st Contact Info) Description 11/12/2023 Telephone [facility] Pulmonary at [address] [place] [address] Noemy Worrell LPN Social History Tobacco Use Types Packs/Day Years Used Date Smoking Tobacco: Former Cigarettes 1.3 52 S tarted: 1973 Smokeless Tobacco: Never Alcohol Use Standard Drinks/Week Comments No 0 (1 standard drink = 0.6 oz pur e alcohol) Sex and Gender Information Value Date Recorded Sex Assigned at Not on file 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 Pt informed per Jackie he does not need a follow up appointment scheduled. If he has a new lung issue he can call us for an appointment. documented in this encounter Plan of Treatment Not on file documented as of this encounter Visit Diagnoses Not on filedocumented in this encounter Care Teams Military Administrative Technician Relationship Specialty Start Date End Date Sergey Wilson MD PCP - General 09/20/16 documented as of this encounter
--- OUTSIDE RECORDS SUMMARY | 2024-05-24 02:05 | XMS_ITS | Encounter Summary ---
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 score was 20/60 today. Cranial Nerves: Pupils were equal, round and reactive to light bilaterally. Extraocular muscles were full. There was no nystagmus. Facial strength was normal and symmetric. Facial expression was normal. Palate was upgoing equally bilaterally. Tongue was midline. Motor Examination: Muscle bulk was normal. Tone was normal. Strength was normal throughout in both upper and lower extremities. There was no pronator drift. There was no tremor. There was no bradykinesia or myoclonus. Fine finger movements were normal and equal bilaterally. Sensation: The patient had normal sensations to light touch and double simultaneous stimulation. Coordination: Finger to nose testing and rapid alternating movements were normal. Gait: Posture was normal. Gait was normal. 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 He is s/p pacemaker. He has a history of suicidal ideations and psychiatric admissions. He has been recommended to go to counseling and engage in talk therapy to treat non-epileptic events numerous times. 07/20-07/26/20 Video/EEG at [facility] revealed no seizures and three events clinically typical of his NEE's with no significant EEG or EKG correlate; the interictal EEG showed right temporal slowing. (report personally reviewed) Orthostatic BP's were normal. He was discharged on TPM lowered from 200/300 mg to 200 mg bid and VPA ER lowered from 1000 mg bid to 1000/500 mg. He has not followed through on talking therapies. I have showed him [email or web address] search engine to find therapists around his ZIP code who took his insurance, treated adults, and performed CBT. We discussed that the proper treatment of NEE's to make them go away is CBT and other talking th erapies, so he should follow through. Video/EEG 08/17-08/19/21 at [facility] revealed three typical clinical events with no EEG correlate, which were clinically consistent with non-epileptic events. A fourth clinical event of chest pain was atypical and had no EEG or EKG correlate and self-resolved after only a few minutes. The interictal was abnormal due to 1) two right temporal epileptiform discharges (after valproate was lowered from 1000 mgQAM 500 mg QPM to 500 mg QAM 250 mg QPM) and 2) right temporal slowing. (report personally reviewed) This was the first time in years of Video/EEG testing that I had even seen a discharge. He was provided with resources to learn more about PNES and find a talk therapist. He was discharged on ASMs un changed. At a past visit, he reported that headache pains and whooshing seemed to be worsening. I ordered a Head CTA (has PPM can't do MRI/A). The CTA did not show an aneusym to explain the whooshing sound inhis ear. 09/2023 he was hospitalized with diarrhea. A checked VPA level was 13.7 taking VPA 1000/500 mg, which seemed low if he were compliant, so we asked for a repeat level. Around this time, he also reported episodes where he would hear a funny noise in his ears, goes incoherent , gets heavy , loses his balance, and will fall to the floor. He reports sometimes he will have oral injury. He denies inco ntinence. He reports frequency of 0 to 3 times per month. The event lasts less than one minute and he will return to baseline within 5 minutes. He is not driving. Today he is now on VPA 1000 mg bid, and since being back on that dose, he has not had any event with being incoherent. He denies seizures. He denies side effects other than thinking that VPA is causing stumbling based on what Dr. Tucker told him in the past. He denies any kidney stones, but he sometimes has pains in the side, unclear if related. He still has episodes of tinnitus. He sees a paindoctor who provides narcotic pain medications and shots for pain in his hips, back, and legs. He issometimes getting overheated walking in the heat and might pass out. His legs also get a little shaky walking around, like in a store, and will give out, and he can't get up on his own, has to have help. I referred him to his PMD. He was thinking about getting a new PMD because he didn't feel like he was making progress on his leg problems and falls. He says he is choudhary at times, so he keeps to himself. He lives with Riley. He wondered about a second opinion on his diabetes and its impact on his legs and walking, and I gave him the number to make an appointment with Internal Medicine and Diabetes group. I was concerned about his hearing, balance, and whistling in his ears and gave him the number for [facility]. He has a good friend Bala who goes out to eat and see [employer] cars with him, but his mood was lower when he discussed that people make fun of him. We discussed controlling his reactions and focusing on the positive. He does not work or drive. Prudent safety precautions. Plan 1. Continue VPA ER 1000 mg bid. 2. Continue TPM 200 mg bid. 3. Numbers provided for Diabetes and ENT groups. 4. Prudent safety precautions apply for any events with loss of awareness including NEE's 5. PMD to address mood 6. F/U ~6-9 months. Call as needed. documented in this encounter Plan of Treatment Not on file documented as of this encounter Visit Diagnoses Diagnosis Epilepsy with partial complex seizures (HCC)- Primary Nonepileptic episode (HCC) documented in this encounter Discontinued Medications Medication Sig Discontinue Reason Start Date End Da te topiramate (TOPAMAX) 200 mg tablet Take 1 tablet (200 mg total) by mouth 2 (two) times a day Reorder 05/16/2023 12/18/2023 divalproex ER (DEPAKOTE ER) 500 mg 24 hr tablet Take 2 tablets (1,000 mg total) by mouth 2 (two) times a day Reorder 09/26/2023 12/18/2023 documented as of this encounter Care Teams Hand Weaver Relationship Specialty Start Date End Date Sergey Wilson MD PCP - General 09/20/16 documented as of this encounter
--- OUTSIDE RECORDS SUMMARY | 2024-05-24 02:05 | XMS_ITS | Encounter Summary ---
Author Organization [facility] Healthcare Address [address] [place] [address] Care Team Providers Care Cat Breeder Name Role Phone Sergey Wilson MD Primary Care Provider [phone] Reason for Visit * Reason Comments Follow-up Encounter Details Date Type Department Care Team (Late st Contact Info) Description 11/02/2023 11:00 AM CDT Office Visit [facility] Pulmonary at [address] [id number] Jackie Orlando NP [address] [place] [id number] Exertional dyspnea (Primary Dx); ALLA (obstructive sleep apnea); Gastroesophageal reflux disease, unspecified whether esophagitis present Social History Tobacco Use Types Packs/Day Years Used Date Smoking Tobacco: Former Cigarettes 1.3 52 S tarted: 1973 Smokeless Tobacco: Never Alcohol Use Standard Drinks/Week Comments No 0 (1 standard drink = 0.6 oz pur e alcohol) Sex and Gender Information Value Date Recorded Sex Assigned at Not on file 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 Gender Identity Not on file Sexual Orientation Not on file documented as of this encounter Last Filed Vital Signs Vital Sign Reading Time Taken Comments Blood Pressure 100/52 11/02/2023 10:38 AM CDT Pulse 80 11/02/2023 10:38 AM CDT Temperature 36.1 ??C (97 ??F) 11/02/2023 10: 38 AM CDT Respiratory Rate - - Oxygen Saturation 95% 11/02/2023 10: 38 AM CDT Inhaled Oxygen Concentration - - Weight 100.6 kg (221 lb 11.2 oz) 2023 10:38 AM CDT Height 175.3 cm (5' 9 ) 11/02/2023 10:3 8 AM CDT Body Mass Index 32.74 11/02/2023 10:38 AM CDT documented in this encounter Ordered Prescriptions Prescription Sig Dispense Quantity Refills Last Filled Start Date End Date albuterol HFA (PROVENTIL HFA,VENTOLIN HFA,PROAIR HFA) 90 mcg/actuation inhaler Inhale 2 puffs every 6 (six) hours as needed for shortness of breath 1 each 11 11/02/2023 documented in this encounter Progress Notes * Jackie Orlando, INSTRUCTOR PHYSICAL - 11/02/2023 11:00 AM CDT Images from the original note were not included. PULMONARY CLINIC NOTE Visit Date: 11/02/2023 Chief Complaint: Presents today for Dyspnea on exertion HPI: Dennis Branch is a 58 y.o. male w/ PMH of recurrent seizures, diabetes, hypertension, GERD, ALLA intolerant of CPAP who presents on 11/02/2023 for follow up on dyspnea on exertion. He was previously followed by myself at an outside pulmonology office and had extensive pulmonary workup He was originally seen in our office here in July 2023 at which time he continued to report dyspnea on exertion responsive to albuterol. Previous pulmonary function testing was normal as was methacholine challenge testing. He was previously on inhaled therapies but these were discontinued with no worsening of symptoms. Of note he also has a history of syncopal episodes and underwent craniotomy and temporal lobectomy in 2012. He follows closely with Neurology He has not had a respiratory infection or exacerbation in the interval. He endorses some dyspnea on exertion and rare cough. Weather changes do bother him and he feels that he improves when using albuterol. He denies unintentional weight loss, hemoptysis, chest pain, wheezing, waking at night due to respiratory symptoms, night sweats, fever/chills. Exposure History: None relevant Past Medical History: Past Medical History: Diagnosis Date Anxiety disorder Anxiety - (Added by TW Conv) Asthma Diabetes (HCC) 06/05/2019 Hypertension Personal history of other diseases of the circulatory system History of hypertension - (Added by TW Conv) Personal history of other diseases of the respiratory system Personal history of asthma - (Added by TW Conv) Personal history of other mental and behavioral disorders History of depression - (Added by TW Conv) Reflux esophagitis Chronic Reflux Esophagitis - (Added by TW Conv) Seizures ([facility]) Family History: Family History Problem Relation Age of Onset Brain cancer Brother Brain tumor - (Added by TW Conv) Diabetes Brother Cancer Father Diabetes Sister Social History: Former smoker Quit in the Smoked about 25 years at 1-1/2 packs per day Review of Systems: Review of Systems Constitutional: Negative for activity change, chills, fatigue and unexpected weight change. HENT: Negative for congestion, postnasal drip, rhinorrhea, sinus pressure, sore throat and voice change. Eyes: Negative for visual disturbance. Respiratory: Negative for cough, chest tightness, shortness of breath and wheezing. Denies hemoptysis Cardiovascular: Negative for chest pain, palpitations and leg swelling. Gastrointestinal: Denies GERD Genitourinary: Negative for difficulty urinating. Musculoskeletal: Negative for arthralgias and joint swelling. Skin: Negative for rash. Neurological: Negative for weakness. Hematological: Negative for adenopathy. Psychiatric/Behavioral: Negative for sleep disturbance. OBJECTIVE: Physical Exam: Vitals: 11/02/23 1038 BP: 100/52 BP Location: Right arm Patient Position: Sitting Pulse: 80 Temp: 36.1 ??C (97 ??F) TempSrc: Temporal SpO2: 95% Weight: 100.6 kg (221 lb 11.2 oz) Height: 175.3 cm (5' 9 ) Physical Exam Constitutional: Appearance: Normal appearance. HENT: Head: Normocephalic. Nose: No congestion or rhinorrhea. Mouth/Throat: Mouth: Mucous membranes are moist. Eyes: Pupils: Pupils are equal, round, and reactive to light. Neck: Comments: No supraclavicular adenopathy Cardiovascular: Rate and Rhythm: Normal rate and regular rhythm. Heart sounds: No murmur heard. Pulmonary: Effort: Pulmonary effort is normal. No tachypnea or respiratory distress. Breath sounds: No decreased air movement. No decreased breath sounds, wheezing, rhonchi or rales. Abdominal: General: Bowel sounds are normal. Palpations: Abdomen is soft. Tenderness: There is no abdominal tenderness. Musculoskeletal: General: No swelling. Right lower leg: No edema. Left lower leg: No edema. Lymphadenopathy: Cervical: No cervical adenopathy. Skin: General: Skin is warm and dry. Nails: There is no clubbing. Neurological: General: No focal deficit present. Mental Status: He is alert and oriented to person, place, and time. Psychiatric: Mood and Affect: Mood normal. Data Review: CT chest without contrast 07/11/2022: Notable for mild scarring without evidence of acute intrathoracic process. No hallmark findings of ILD Minimal peripheral eosinophilia Pulmonary Functions Testing Results: 05/12/2022 Methacholine challenge testing: Normal spirometry with negative methacholine challenge testing 02/08/2021: Normal spirometry and lung volumes. Normal diffusion capacity ASSESSMENT AND PLAN Diagnoses and all orders for this visit: Exertional dyspnea (Primary) Assessment & Plan: He has had an extensive pulmonary evaluation which revealed no signs of obstructive or restrictive lung disease Does have clinical benefit from albuterol may be upper airway in nature, continue as needed only wehave discussed indications for use Previously had no [...] for an appointment with changes in condition ALLA (obstructive sleep apnea) Assessment & Plan: He is intolerant to PAP therapy We have discussed the risks of uncorrected sleep apnea This may be a contributor to his dyspnea Gastroesophageal reflux disease, unspecified whether esophagitis present Assessment & Plan: Continue omeprazole 20 mg daily He has been well-controlled Avoid trigger foods Elevate head of bed while sleeping No eating 2-3 hours before bed Other orders - albuterol HFA (PROVENTIL HFA,VENTOLIN HFA,PROAIR HFA) 90 mcg/actuation inhaler; Inhale 2 puffs every 6 (six) hours as needed for shortness of breath Jackie Orlando NP documented in this encounter Miscellaneous Notes * Assessment & Plan Note - Jackie Orlando NP - 11/02/2023 3:15 PM CDT Associated Problem(s): GERD (gastroesophageal reflux disease) Continue omeprazole 20 mg daily He has been well-controlled Avoid trigger foods Elevate head of bed while sleeping No eating 2-3 hours before bed * Assessment & Plan Note - Jackie Orlando NP - 11/02/2023 3:11 PM CDT Associated Problem(s): ALLA (obstructive sleep apnea) He is intolerant to PAP therapy We have discussed the risks of uncorrected sleep apnea This may be a contributor to his dyspnea * Assessment & Plan Note - Jackie Orlando NP - 11/02/2023 3:11 PM CDT Associated Problem(s): Exertional dyspnea He has had an extensive pulmonary evaluation which revealed no signs of obstructive or restrictive lung disease Does have clinical benefit from albuterol may be upper airway in nature, continue as needed only wehave discussed indications for use Previously had no [...] for an appointment with changes in condition documented in this encounter Plan of Treatment Not on file documented as of this encounter Visit Diagnoses Diagnosis Exertional dyspnea- Primary Other dyspnea and respiratory abnormality ALLA (obstructive sleep apnea) Obstructive sleep apnea (adult) (pediatric) Gastroesophageal reflux disease, unspecified whether esophagitis present documented in this encounter Discontinued Medications Medication Sig Discontinue Reason Start Date End Da te albuterol HFA (PROVENTIL HFA,VENTOLIN HFA,PROAIR HFA) 90 mcg/actuation inhaler Inhale 2 puffs every 4 (four) hours as needed for wheezing or shortness of breath 11/02/2023 documented as of this encounter Care Teams Cat Breeder Relationship Specialty Start Date End Date Sergey Wilson MD PCP - General 09/20/16 documented as of this encounter
--- OUTSIDE RECORDS SUMMARY | 2024-05-24 02:05 | XMS_ITS | Referral Summary ---
Author Organization [facility] Address [address] [place] [id number] Care Team Providers Care Telephone Information Clerk Name Role Phone Sergey Wilson MD Primary Care Provider [phone] Allergies Active Allergy Reactions Criticality Noted Date [...] 1 tablet (50 mcg total) by mouth refrigeration mechanic helper before breakfast Active montelukast (SINGULAIR) 10 mg [...] CAPSULE 0 Active cyanocobalamin/ folic acid (vitamin [id number] acid) 2,500-400 mcg tablet,disinteg rating 0 Active [...] Preservative Free, Intramuscular 06/06/2019 Influenza, Unspecified 02/12/2020 Social History Tobacco Use Types Packs/Day Years Used Date Smoking Tobacco: Former Cigarettes 1.3 52 S tarted: 1973 Smokeless Tobacco: Never Tobacco Cessation:Counseling Given: Not Answered Alcohol Use Standard Drinks/Week Comments No 0 (1 standard drink = 0.6 oz pur e alcohol) Sex and Gender Information Value Date Recorded Sex Assigned at Not on file 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 73 m2 JOHANNY MARTINEZ Comment: Interpretive Data Reference Interval Normal ?>/= [...] PhD LAB BLOOD ORDERABLES Adeline miller Result [facility] Department [place] [address] from Last 3 Months or Most Recently Relevant to Health Maintenance Insurance [employer] MED[employer]ARE SOLUTIONS [facility] MEDICARE SOLUTIONS MEDICARE SOLUTIONS [employer] Advance Directives For more information, please contact: [phone] * Full Code (Latest Code Status on File) Date Activated Date Inactivated Comments 08/17/2021 7:34 AM 08/19/2021 10:29 PM * Full Code Date Activated Date Inactivated Comments 07/20/2020 10:14 AM 07/26/2020 7:25 PM * Full Code Date Activated Date Inactivated Comments 06/06/2019 2:57 AM 06/08/2019 2:23 AM Care Teams Telephone Information Clerk Relationship Specialty Start Date End Date Sergey Wilson MD PCP - General 09/20/16
--- OUTSIDE RECORDS SUMMARY | 2024-05-24 02:06 | XMS_ITS | Encounter Summary ---
Author Organization [facility] Address [address] [place] [address] Phone Care Team Providers Care Security Control Room Officer Name Role Phone Sergey Wilson MD Primary Care Provider [phone] Reason for Visit * Consultation (Routine) - Closed Specialty Diagnoses / Procedures Referred By Kirby t Referred To Contact Neurology Diagnoses Partial symptomatic epilepsy with complex partial seizures, not intractable, without status epilepticus (HCC) Clifton Jose MD PhD [address] [place] [address] Phone: tel: fax: Clifton Jose MD PhD [address] [place] [address] Phone: tel: fax: Referral ID Status Reason Start Date Expiration Date V isits Requested Visits Authorized [id number] Closed Specialty Services Required 12/01/2021 12/31/2022 1 1 Encounter Details Date Type Department Care Team (Late st Contact Info) Description 02/15/2022 9:30 AM CDT Office Visit [facility] Epilepsy [address] [facility] [address] 6th [place] [address] [place] [address] Clifton Jose MD PhD [address] [place], [place] [id number] Partial symptomatic epilepsy with complex partial seizures, not intractable, without status epilepticus (CMS/HCC) (HCC) (Primary Dx); Nonepileptic episode (CMS/HCC) (HCC); High risk medication use Social History Tobacco Use Types Packs/Day Years Used Date Smoking Tobacco: Former Smokeless Tobacco: Never Tobacco Cessation:Counseling Given: Not Answered Alcohol Use Standard Drinks/Week Comments No 0 (1 standard drink = 0.6 oz pur e alcohol) Sex and Gender Information Value Date Recorded Sex Assigned at Not on file 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 Gender Identity Not on file Sexual Orientation Not on file documented as of this encounter Last Filed Vital Signs Vital Sign Reading Time Taken Comments Blood Pressure 121/74 02/15/2022 8:40 AM CDT Pulse 80 02/15/2022 8:40 AM CDT Temperature - - Respiratory Rate - - Oxygen Saturation - - Inhaled Oxygen Concentration - - Weight 103.4 kg (228 lb) 02/15/2022 8:40 AM CDT Height - - Body Mass Index 32.71 08/17/2021 7:30 AM CDT documented in this encounter Ordered Prescriptions Prescription Sig Dispense Quantity Refills Last Filled Start Date End Date topiramate (TOPAMAX) 200 mg tablet Take 1 tablet (200 mg total) by mouth 2 (two) times a day 180 tablet 3 02/15/2022 3 divalproex ER (DEPAKOTE ER) 500 mg 24 hr tablet Take 2 tablets (1,000 mg total) by mouth every morning AND 1 tablet (500 mg total) nightly. 270 tablet 3 02/15/2022 3 documented in this encounter Progress Notes * Clifton Jose MD PhD - 02/15/2022 9:30 AM CDT Name: Dennis Branch Date of : 1965 PCP: Sergey Wilson MD Date: 02/15/2022 Provider: Clifton Jose MD PhD Chief Complaint: Seizures HPI Portions of this note were copied forward from a prior encounter and updated to reflect the currentclinical condition. The EMR was personally reviewed and summarized as part of this note. The patient is a 56 YO RH M with a history of asthma, depression, non-epileptic events, and seizures since age 3 years following head trauma with possible loss of consciousness. He is s/p right temporal lobectomy and AHC on 05/02/13. His seizures have been characterized [...] patient underwent a right temporal lobectomy and Cby Dr. Schneider on 05/02/13 with pathology showing hippocampal [...] Video/EEG 05/10-05/12/16 (5th since epilepsy surgery) at [facility] without AED wean captured 7 typical events without EEG correlate, consistent with non-epileptic events (report personally reviewed). Video/EEG 07/23-07/26/17 at [facility] revealed episodes of unresponsiveness, head drop, [...] that led to the 04/2017 hospitalization at [facility]. He has presented to ER's many times with loss of consciousness events most of which are clinically consistent in retrospect to his PNES, which has been shown repeatedly with multiple Video/EEG's since his epilepsy surgery. When other MD's increase his ASMs, I usually lower them back down. He has not seen a talking therapist for PNES. His brother Rafa has previously agreed to get him to do CBT. He was in the [facility] ED 03/22/19 for a loss of consciousness event and that note indicated he had a pacemaker implanted the week prior. In 2019, he missed a step walking up concrete stairs, fell, and hit his head with loss of consciousness for about 20 minutes. OSH ER testing was normal. 11/2019-12/2019 there were several falls and head injuries with loss of consciousness, and medical evaluation including a hospitalization where he was reportedly taken off all seizure medications. After discharge, he resumed VPA and TPM, eventually adjusted to my recommended dosing with a reduction in TPM to 200/300 mg. 07/20-07/26/20 Video/EEG at [facility] revealed no seizures and three events clinically typical of his NEE's with no significant EEG or EKG correlate; the interictal EEG showed right temporal slowing. (report personally reviewed) Orthostatic BP's were normal. He was discharged on TPM lowered from 200/300 mg to 200 mg bid and VPA ER lowered from 1000 mg bid to 1000/500 mg (desired by patient who thought it was causing falls). Shortly thereafter, he called complaining of falls since the medication change, and VPA ER was increased to 1000/750 mg. He was also referred to his PMD for falls. 11/2020 he had an event with staring, unable to hear, zoning out, then had 3 more. OSH doctors increased VPA ER back to 1000 mg bid. I reviewed the notes. Patient passed out while trying to pass gas. His workup was unremarkable. It was not due to a low VPA level. VPA was 39.9 which is fine considering we are weaning his VPA. I recommend that he take 1000/750 mg. 02/08/21, he reported no seizures. He recalled other events as he hears loud noise in his ears, thenhe stares, stops responding, is aware of people around him, remembers when they smack him in the face or do sternal rub, and tells them when he can respond not to do that. He was interested in retrying VPA 1000/500 mg, which I okayed. I showed him www.[employer] search engine on his phone and wrote down the 1st five female therapists I found around his ZIP code who took his insurance, treated adults, and performed CBT. We discussed that the proper treatment of JAZMYNE's to make them go away is CBT [...] and lungs during the event, which were normal. Palpation of pulses was normal. I allowed the event to pass. He complained of that ringing in his ears, but was back to baseline quickly. We discussed that he had had a typical non-epileptic event that he needed talking therapy to treat. Last visit, he denied any typical seizures. He denied side effects from VPA or TPM. He reported continued event of ringing in his ears, staring, can hear but cannot respond, and loses awareness. Thisoccurs 2-3 times every ~2 weeks, sometimes more. This happened again in public at [facility] last week, and then they sent to the ER, where his VPA level was reportedly low (could not see that result), and the ER doctor told him to tell me that he was having a new kind of seizure. The patient himself thinks he has been having this kind of event since he started working with someone in [employer] about [employer]. He was not having to spend any money, and has been told that he will receive his money. He had not done talking therapies. He did not look into the therapists that I wrote down for him last time. He has a female friend who he talks to when he has an issue, says she is a good listener. We discussed that those events were likely non-epileptic events that would likely benefit from talking therapies, and he thought that that was probably right but was not sure and preferred to come in for Video/EEG to make sure that these events that are sending him to the ER are not new epileptic seizures. I ordered the testing. I redirected him to his dialysis equipment technician for chest pain. Since last visit, Video/EEG 08/17-08/19/21 at [facility] revealed three typical clinical events with no EEG correlate, which were clinically consistent with non- epileptic events. A fourth clinical event of chest [...] Course. He was discharged on ASMs unchanged. Today he reports no epileptic seizures. He had had a 2-3 interval loss of consciousness events entering the visit, which he attributed to stress, which is better than in the past. He moved out of hisneighborhood, which had become dangerous, and into a house with his brother Riley and Riley's significant other. Riley does not charge him to live there, but he pays some of his own bills. He is still looked after by Celestino as well. He usually walks and catches buses to get to the restaurants he likes. He has not yet tried talking therapy, which we [...] he just had was mostly likely stress-related (non-epileptic). I offered to send bloodwork locally if he were not feeling up to it, but he felt okay getting the bloodwork on the 3rd floor. I ordered CBC, CMP, and Vitamin D. In the past, he has been treated [...] A pacemaker/ defibrillator was placed by in [place], [place]. He did not follow through with sleep clinic referral due to reported transportation issues. He had post-op NPT 02/26/14 that revealed moderate, widespread deficits in language, verbal and visual anterograde memory, and executive function; compared to pre-op some improvements and some declines noted with an overall decrease in anxiety symptoms noted. (report personally reviewed). ALLERGIES Dennis is allergic to phenobarbital, carbamazepine, and metformin. Allergies Allergen Reactions Phenobarbital Unknown Carbamazepine Flushing (skin) Metformin Other (See comments) MEDICATIONS He has a current medication list which includes the following prescription(s): albuterol hfa, amoxicillin, aspirin, cholecalciferol, citalopram, cyclobenzaprine, empagliflozin, enalapril, ergocalciferol, fenofibrate, fluticasone propion-salmeterol, fluticasone propionate, furosemide, glimepiride, ibuprofen, icosapent ethyl, levothyroxine, meclizine, montelukast, naproxen sodium, nortriptyline, omeprazole, onetouch ultra blue test strip, onetouch ultra2 meter, pioglitazone, umeclidinium, colchicine, vitamin z69-wjadg acid, divalproex er, omega-3 fatty acids, rosuvastatin, and topiramate. 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 The patient does not drive. ROS Our standard office review of systems form was both reviewed and confirmed with the patient. All ofthe pertinent positives and negatives were mentioned in the History of Presenting Illness. All other systems were negative. Test Conclus Repeat presurgical workup: -Video EEG with Ictal SPECT at [facility] from 02/04/2013 to 02/10/2013 revealed four right temporal onset seizures, rare right temporal discharges, and right temporal slowing. The patient also had multiple events without EEG correlate, mostly epigastric rising/stomach pain sensations. -Brain PET on 02/25/2013 at [facility] revealed hypometabolism in the right temporal lobe and right fronto-parietal as well. -Brain MRI with seizure protocol at [facility] on 02/25/2013 revealed a small right [...] a right temporal lobectomy. Past evaluations at [facility] revealed: -Brain MRI 04/27/08 at [facility] revealed right mesial temporal sclerosis and focal encephalomalacia and gliosis along the right lateral postcentral gyrus. -Video/EEG at [facility] 12/2008 with multiple episodes without EEG [...] the same medications including VPA. -Video/EEG at [facility] 05/2008 revealed multiple typical auras consisting of a brief period of epigastricdiscomfort without alteration of awareness and no EEG correlate. The interictal EEG was abnormal due to right hemisphere slowing. Ictal and interictal SPECT were obtained during the recording, without identifying a seizure focus. He was injected for an episode of epigastric pain. Other studies: -Routine EEG at [facility] on 03/27/12 revealed no significant abnormalities. -Routine EEG on 05/15 at OSH revealed normal EEG. -Routine EEG on at OSH revealed normal EEG. -Head CT without contrast on 03/21 at OSH revealed reported encephalomalacia right sylvian fissure region. VITAL SIGNS Vitals BP 121/74 (BP Location: Right arm, Patient Position: Sitting) Pulse 80 Wt 103.4 kg (228 lb) BMI 32.71 kg/m?? Physical Exam General: The patient appeared well developed, well nourished, and well groomed. Extremities: No edema. Normal. Skin: Normal. Neurological Exam: Mental Status: The patient was alert, awake, and oriented to person, place and time. The patient had fluent speech and followed commands. Attention was normal. Affect and mood were initially upbeat and then later anxious. ISELA-D score was not done. Cranial Nerves: Extraocular muscles were full. There was no nystagmus. Facial strength was normal and symmetric. Facial expression was normal. Palate was upgoing equally bilaterally. Tongue was midline. Motor Examination: Moved bilateral upper extremities well. There was no pronator drift. There was amild tremor. There was no bradykinesia or myoclonus. Fine finger movements were normal and equal bilaterally. Coordination: Finger to nose testing and rapid alternating movements were normal. Gait: Seated posture was normal. Gait was deferred. 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 During evaluations for his new spells, he was found to have EKG changes and established with a dialysis equipment technician. He is s/p pacemaker. He has a history of suicidal ideations and psychiatric admissions. He has been recommended to go to counseling and engage in talk therapy to treat non-epileptic events numerous times. 07/20-07/26/20 Video/EEG at [facility] revealed no seizures and three events [...] on talking therapies. I have showed him www[employer] search engine to find therapists around his ZIP code who took his insurance, treated adults, and performed CBT. We discussed that the proper treatment of NEE's to make them go away is CBT and other talking th erapies, so he should follow through. Video/EEG 08/17-08/19/21 at [facility] revealed three typical clinical events with [...] therapist. He was discharged on ASMs un changed Plan 1. I advised him again today to follow through on talking therapies including CBT for non-epilepticevents. Resources have been provided multiple times. 2. Continue TPM 200 mg bid. 3. Continue VPA ER 1000/500 mg. 4. Prudent safety precautions apply for any events with loss of awareness including NEE's 5. F/U ~6-9 months. Call as needed. documented in this encounter Plan of Treatment Not on file documented as of this encounter Results * Vitamin D 25 hydroxy (02/15/2022 10:57 AM CDT) Vitamin D 25-OH 48 30 - 80 ng/mL [facility] Blood 02/15/2022 10:5 7 AM CDT 02/15/2022 11:23 AM CDT us Clifton Jose MD PhD LAB BLOOD ORDERABLES Adeline miller Result [facility] [place] [address] * (ABNORMAL) Comprehensive metabolic panel (02/15/2022 10:57 AM CDT) Sodium 139 135 - 145 mmol/L [facility] Potassium, pl 4.0 3.3 - 4.9 mmol/L [facility] Chloride 102 97 - 110 mmol/L [facility] CO2 26 22 - 32 mmol/L [facility] Anion gap 11 2 - 15 mmol/L [facility] BUN 22 8 - 25 mg/dL [facility] Creatinine 1.01 0.80 - 1.30 mg/dL [facility] Glucose 94 70 - 199 mg/dL [facility] Comment: Interpretive Data Fasting glucose >/= 126 mg/dl is diagnostic for diabetes. ?? Fasting is defined as no caloric intake for at least 8 hours. Fasting glucose between 100 mg/dl to 125 mg/dl is diagnostic of prediabetes. In a patient with classic symptoms of hyperglycemia or hyperglycemic crisis, a random glucose >/= 200 mg/dl is diagnostic for diabetes. In the absence of unequivocal hyperglycemia, results should be confirmed by repeat testing. The classification and Diagnosis of Diabetes Diabetes Care 2017;40 (Suppl. 1):S11. Current interpretive data was last revised 2017. Calcium 9.8 8.5 - 10.3 mg/dL [facility] Bilirubin, total 0.4 0.1 - 1.2 mg/dL [facility] Protein, pl 7.4 6.5 - 8.5 g/dL [facility] Albumin 4.5 3.5 - 5.0 g/dL [facility] Alk phos 79 40 - 130 Units/L [facility] ALT 33 7 - 55 Units/L [facility] AST 51(H) 10 - 50 Units/L [facility] Blood 02/15/2022 10:5 7 AM CDT 02/15/2022 11:23 AM CDT Clifton Jose MD PhD LAB BLOOD ORDERABLES Adeline angela Result Performing Organization Address City/[facility]/ZIP Co de Phone Number [facility] [place] [address] * CBC with auto differential (02/15/2022 10:57 AM CDT) [facility] [address] WBC 8.2 3.8 - 9.9 K/cumm [facility] Hgb 14.1 13.0 - 17.5 g/dL [facility] Hct 43.4 38.9 - 50.3 % [facility] Plt 217 150 - 400 K/cumm [facility] MPV 9.8 9.1 - 12.3 fL [facility] RBC 4.66 4.30 - 5.80 M/cumm [facility] MCV 93.1 81.3 - 96.4 fL [facility] MCH 30.3 27.1 - 33.3 pg [facility] MCHC 32.5 32.3 - 35.7 g/dL [facility] RDW CV 13.5 11.1 - 14.9 % [facility] RDW SD 45.8 35.7 - 48.1 fL [facility] NRBC abs 0.00 0.00 - 0.01 K/cumm [facility] Blood 02/15/2022 10:5 7 AM CDT 02/15/2022 11:23 AM CDT Clifton Jose MD PhD LAB BLOOD ORDERABLES Adeline miller Result Performing Organization Address City/[facility]/ZIP Co de Phone Number [facility] [place] [address] documented in this encounter Visit Diagnoses Diagnosis Partial symptomatic epilepsy with complex partial seizures, not intractable, without status epilepticus (HCC)- Primary Nonepileptic episode (HCC) High risk medication use documented in this encounter Discontinued Medications Medication Sig Discontinue Reason Start Date End Da te topiramate (TOPAMAX) 200 mg tablet Take 1 tablet (200 mg total) by mouth 2 (two) times a day Reorder 02/08/2021 02/15/2022 divalproex ER (DEPAKOTE ER) 500 mg 24 hr tablet TAKE 2 TABLETS BY MOUTH EVERY DAY AND 1 AT BEDTIME Reorder 01/20/2022 02/15/2022 documented as of this encounter Historical Medications * This list may reflect changes made after this encounter. meclizine (ANTIVERT) 12.5 mg tablet TAKE 1 TABLET BY MOUTH THREE TIMES DAILY NEEDED FOR DIZZINESS 01/12/2022 ergocalciferol (VITAMIN D) 50,000 unit capsule Take 1 capsule (50,000 Units total) by mouth 12/19/2021 amoxicillin (AMOXIL) 875 mg tablet added in this encounter Orders Outpatient Referral Count Last Ordered Date Fir st Ordered Date AMB REFERRAL TO NEUROLOGY 1 02/15/2022 documented in this encounter Care Teams Security Control Room Officer Relationship Specialty Start Date End Date Sergey Wilson MD PCP - General 09/20/16 documented as of this encounter
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
--- OUTSIDE RECORDS SUMMARY | 2024-05-24 02:06 | XMS_ITS | Encounter Summary ---
Author Organization [facility] Healthcare Address [address] [place] [address] Care Team Providers Care Bias Cutter Name Role Phone Sergey Wilson MD Primary Care Provider Reason for Visit * Reason Comments New Patient Was seeing Jackie Encounter Details Date Type Department Care Team (Late st Contact Info) Description 07/16/2023 1:00 PM BOBBIN WASHER Office Visit [facility] Pulmonary at [address] [place] [address] Drew Lam MD [address] [place] [address] [address] [place] [address] Dyspnea on exertion (Primary Dx); Syncope, unspecified syncope type Social History Tobacco Use Types Packs/Day Years Used Date Smoking Tobacco: Former Cigarettes 1.3 52 S tarted: 1973 Smokeless Tobacco: Never Tobacco Cessation:Counseling Given: Not Answered Alcohol Use Standard Drinks/Week Comments No 0 (1 standard drink = 0.6 oz pur e alcohol) Sex and Gender Information Value Date Recorded Sex Assigned at Not on file 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 BOBBIN WASHER Gender Identity Not on file Sexual Orientation Not on file documented as of this encounter Last Filed Vital Signs Vital Sign Reading Time Taken Comments Blood Pressure 96/52 07/16/2023 12:54 PM BOBBIN WASHER Pulse 88 07/16/2023 12:54 PM BOBBIN WASHER Temperature 36.5 ??C (97.7 ??F) 07/16/2023 12:[address] Respiratory Rate - - Oxygen Saturation 97% 07/16/2023 12:54 PM BOBBIN WASHER Inhaled Oxygen Concentration - - Weight - - Height - - Body Mass Index - - documented in this encounter Progress Notes * Drew Lam MD - 07/16/2023 1:00 PM CST Images from the original note were not included. PULMONARY CLINIC NOTE Visit Date: 07/16/2023 Chief Complaint: Presents today for dyspnea HPI: Dennis Branch is a 58 y.o. male w/ PMH of h/o seizures status post temporal lobectomy, non epileptiform syncope, ALLA intolerant to CPAP who presents on 07/16/2023 for evaluation of dyspnea. The patient was previously seen by my colleague Jackie Orlando. The patient has been extensively evaluated for a pulmonary cause of dyspnea. He does not have any ILD on CT scan or any other acute parenchymal disease. His pulmonary function testing is normal. He was previously on inhaled therapies for possible asthma but these were discontinued after a negative methacholine challenge testing. He did not have any worsening of symptoms off of maintenance inhaled therapy. Of note the patient has been evaluated extensively from a neurologic perspective. He had head trauma and seizures as a child. He underwent craniotomy and temporal lobectomy in 2012. He has had multiple video EEGs with witnessed events and no EEG correlate. Interval History: The patient reports continued dyspnea on exertion. He tries to do a lot of walking around town. He has had recurrent episodes of syncope and recently had ILR placed. He reports a mild prodrome with sensation in his ears causing dizziness and lightheadedness. He also hears an abnormal sound. He in fact experienced a syncopal episode today in our waiting room and near sycope whilesitting in the room speaking with me. He has been using albuterol multiple times per day Exposure History: No exposures Past Medical History: Past Medical History: Diagnosis [...] Esophagitis - (Added by TW Conv) Seizures (HCC) Family History: Family History Problem Relation Age of Onset Brain cancer Brother Brain tumor - (Added by TW Conv) Diabetes Brother Cancer Father Diabetes Sister Social History: Former smoker. Quit in late . Smoked about 25 years 1.5 ppd. Review of Systems: Pertinent positives notes in HPI. Otherwise a 10 pt review of systems is negative. OBJECTIVE: Physical Exam: Vitals: 07/16/23 1254 BP: 96/52 BP Location: Right arm Patient Position: Sitting Pulse: 88 Temp: 36.5 ??C (97.7 ??F) TempSrc: Temporal SpO2: 97% General: appears comfortable in no apparent distress Eyes: anicteric, no redness or drainage, EOMI Neck: no thyromegaly or lymphadenopathy Cardiovascular: regular rate and rhythm, no murmurs, no edema or JVD Respiratory: clear to auscultation bilaterally, non labored Gastrointestinal: abdomen is soft and non-tender, + bowel sounds Musculoskeletal: no joint swelling or tenderness Neurologic: No focal deficits Skin: warm and dry Data Review: CT chest without contrast 07/11/2022: Personally reviewed in scanned notes and notable for mild scarring without evidence of acute intrathoracic process. No hallmark findings of ILD Minimal peripheral eosinophilia Pulmonary Functions Testing Results: 05/12/2022 Methacholine challenge testing: Normal spirometry with negative methacholine challenge testing 02/08/2021: Personally reviewed and my interpretation is notable for normal spirometry and lung volumes. Normal diffusion capacity ASSESSMENT AND PLAN 1. Dyspnea on exertion - normal lung function testing and negative methacholine challenge testing - he reports clinical benefit from albuterol, in the absence of an underlying diagnosed obstructivelung disease - the patient may follow-up as needed from a pulmonary perspective 2. Syncope, unspecified syncope type - during his visit the patient reported prodromal symptoms of 1 of these events - he reports dizziness and lightheadedness, during this event his arms went limp and he slumped over - he continue breathing and I auscultated his heart while palpating his pulse and there did not appear to be any significant change or abnormality - this lasted roughly 30 seconds and resolved spontaneously - given his prior neurologic evaluation and ongoing cardiac evaluation with implantable loop recorder I am hopeful we can arrive at an explanation for his symptoms - more importantly I do not think they are a manifestation of any underlying pulmonary disease - recommend ongoing follow-up with Cardiology and Neurology - consider vestibular syncope given his prominent symptoms of dizziness and lightheadedness My total encounter time on 07/16/2023 was 50 minutes which was spent in the activities documented in the note. This includes time spent prior to the visit and after the visit in direct care of the patient. This time does not include time spent in any separately reportable services. Drew Lam MD There may be syntax/grammatical errors in this note due to the use of voice recognition software. documented in this encounter Plan of Treatment Not on file documented as of this encounter Visit Diagnoses Diagnosis Dyspnea on exertion- Primary Other dyspnea and respiratory abnormality Syncope, unspecified syncope type documented in this encounter Care Teams Bias Cutter Relationship Specialty Start Date End Date Sergey Wilson MD PCP - General 09/20/16 documented as of this encounter
--- OUTSIDE RECORDS SUMMARY | 2024-05-24 02:06 | XMS_ITS | Encounter Summary ---
Author Organization [facility] Address [address] [place] [address] Phone Care Team Providers Care Grain Distributor Name Role Phone Sergey Wilson MD Primary Care Provider [phone] Encounter Details Date Type Department Care Team (Late st Contact Info) Description 10/18/2022 Telephone [facility] Epilepsy [address] [facility] [address] [place] [address] [place] [address] Clifton Jose MD PhD [address] [place] [address] Social History Tobacco Use Types Packs/Day Years Used Date Smoking Tobacco: Former Smokeless Tobacco: Never Alcohol Use Standard Drinks/Week Comments No 0 (1 standard drink = 0.6 oz pur e alcohol) Sex and Gender Information Value Date Recorded Sex Assigned at Not on file 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 Informed him of Dr. Jose's response. Verbalized understanding. * Telephone Encounter - Louise Mack RN - 10/18/2022 7:40 AM CDT ----- Message from Clifton Jose MD PhD sent at 10/17/2022 4:57 PM CDT ----- Please call the patient regarding his result. You can let him know that his CTA did not show an aneusym to explain the whooshing sound in his ear. He should consider having his PMD refer him to ENT for further evaluation. Jordan documented in this encounter Plan of Treatment Not on file documented as of this encounter Visit Diagnoses Not on filedocumented in this encounter Care Teams Grain Distributor Relationship Specialty Start Date End Date Sergey Wilson MD PCP - General 09/20/16 documented as of this encounter
--- OUTSIDE RECORDS SUMMARY | 2024-05-24 02:06 | XMS_ITS | Encounter Summary ---
Author Organization [facility] Healthcare Address [address] [place] [address] Care Team Providers Care Basting Cleaner Name Role Phone Sergey Wilson MD Primary Care Provider [phone] Encounter Details Date Type Department Care Team (Latest Contact Info) Description 10/03/2020 7:18 PM CDT - 10/03/2020 11:59 PM CDT Hospital Encounter [facility] [address] [place] [address] Discharge Disposition: Discharge to home or self care Social History Tobacco Use Types Packs/Day Years Used Date Smoking Tobacco: Former Smokeless Tobacco: Never Alcohol Use Standard Drinks/Week Comments No 0 (1 standard drink = 0.6 oz pur e alcohol) Sex and Gender Information Value Date Recorded Sex Assigned at Not on file 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 Gender Identity Not on file Sexual Orientation Not on file documented as of this encounter Medications at Time of Discharge aspirin 81 mg chewable tablet Take 1 tablet (81 mg total) by mouth daily citalopram (CeleXA) 40 mg tablet Take 1 tablet (40 mg total) by mouth every morning cyanocobalamin/f olic acid (vitamin Q65-lnryx acid) 2,500-400 mcg tablet,disintegr ating 05/14/1969 cyclobenzaprine (FLEXERIL) 10 mg tablet Take 1 tablet (10 mg total) by mouth 2 (two) times a day empagliflozin (JARDIANCE) 25 mg tabletIndication s:type 2 diabetes mellitus Take 1 tablet (25 mg total) by mouth daily enalapril (VASOTEC) 5 mg tablet Take 1 tablet (5 mg total) by mouth daily fenofibrate (TRIGLIDE) 160 mg tablet Take 1 tablet (160 mg total) by mouth nightly 07/04/2020 fluticasone propion-salmeter ol (ADVAIR DISKUS) 250-50 mcg/dose diskus inhaler Inhale 1 puff 2 (two) times a day Rinse mouth with water after use. Do not swallow. fluticasone propionate (FLONASE) 50 mcg/actuation nasal spray Administer 2 sprays into each nostril nightly levothyroxine (SYNTHROID) 50 mcg tablet Take 1 tablet (50 mcg total) by mouth early childhood teacher assistant before breakfast montelukast (SINGULAIR) 10 mg tablet Take 1 tablet (10 mg total) by mouth daily naproxen sodium 220 mg capsule ALEVE CAPSULE 05/14/1969 nortriptyline (PAMELOR) 75 mg capsule Take 1 capsule (75 mg total) by mouth 2 (two) times a day omega-3 fatty acids (LOVAZA) 1 gram capsule omeprazole (PriLOSEC) 20 mg capsule Take 1 capsule (20 mg total) by mouth daily before breakfast FreeBrieUCH ULTRA BLUE TEST STRIP strip USE TO TEST QD 0 09/13/2017 FreeBrieUCH ULTRA2 kit USE TO TEST QD 0 09/13/2017 pioglitazone (ACTOS) 30 mg tabletIndication s:type 2 diabetes mellitus Take 1 tablet (30 mg total) by mouth daily rosuvastatin (CRESTOR) 40 mg tablet Take 1 tablet (40 mg total) by mouth nightly 06/04/2020 umeclidinium (INCRUSE ELLIPTA) 62.5 mcg/actuation blister with device Incruse Ellipta 62.5 mcg/actuation powder for inhalation albuterol (PROVENTIL,MAX PATI) 1.25 mg/3 mL nebulizer solution Take 1.25 mg by nebulization every 6 (six) hours as needed for wheezing or shortness of breath 2 albuterol HFA (PROVENTIL HFA,VENTOLIN HFA,PROAIR HFA) 90 mcg/actuation inhaler Inhale 2 puffs every 4 (four) hours as needed for wheezing or shortness of breath 4 divalproex ER (DEPAKOTE ER) 250 mg 24 hr tablet Take 1 tablet (250 mg total) by mouth nightly [with 500mg tablet. Total eqmm=[id number] at bedtime only] 30 tablet 8 07/30/2020 1 divalproex ER (DEPAKOTE ER) 500 mg 24 hr tabletIndication s:epilepsy Take 2 tablets (1,000 mg total) by mouth daily AND 1 tablet (500 mg total) nightly. [Take 250mg tab with bedtime dose only for total dose of 750mg at bedtime]. 90 tablet 6 07/30/2020 1 lidocaine (LIDODERM) 5 % Place 1 patch on the skin daily 09/25/2020 2 topiramate (TOPAMAX) 200 mg tablet Take 1 tablet (200 mg total) by mouth 2 (two) times a day 120 tablet 6 07/26/2020 1 traMADol (ULTRAM) 50 mg tablet Take 50 mg by mouth every 6 (six) hours as needed for pain 2 documented as of this encounter Discharge Disposition Disposition Code Departure Means Destination Discharge to home or self care documented in this encounter Plan of Treatment Not on file documented as of this encounter Visit Diagnoses Not on filedocumented in this encounter Care Teams Basting Cleaner Relationship Specialty Start Date End Date Sergey Wilson MD PCP - General 09/20/16 documented as of this encounter
--- OUTSIDE RECORDS SUMMARY | 2024-05-24 02:06 | XMS_ITS | Encounter Summary ---
Author Organization [facility] Address [address] [place] [address] Phone Care Team Providers Care Spinner Hand Name Role Phone Sergey Wilson MD Primary Care Provider [phone] Encounter Details Date Type Department Care Team (Late st Contact Info) Description 11/29/2020 Telephone [facility] Epilepsy [address] [facility] [address] [place] [address] [place] [address] Clifton Jose MD PhD [address] [place] [address] Social History Tobacco Use Types Packs/Day Years Used Date Smoking Tobacco: Former Smokeless Tobacco: Never Alcohol Use Standard Drinks/Week Comments No 0 (1 standard drink = 0.6 oz pur e alcohol) Sex and Gender Information Value Date Recorded Sex Assigned at Not on file 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 PATIENT EXPERIENCE COORDINATOR Gender Identity Not on file Sexual Orientation Not on file documented as of this encounter Miscellaneous Notes * Telephone Encounter - Louise Mack RN - 12/02/2020 1:11 PM CDT Spoke with Dennis. Informed her to continue VPA as instructed previously by Dr. Jose. He will continue VPA 1000/750 and let our office know if he has any problems. * Telephone Encounter - Louise Mack RN - 12/01/2020 2:01 PM CDT Left message for patient to return call. * Telephone Encounter - Clifton Jose MD PhD - 12/01/2020 1:57 PM CDT I reviewed the scanned notes. Patient passed out while trying to pass gas. His workup was unremarkable. It was not due to a low VPA level. VPA was 39.9 which is fine considering we are weaning his VPA. You can't wean VPA without the level going down below 50 at some point. He should take 1000/750 mg. Jordan * Telephone Encounter - Louise Mack RN - 12/01/2020 1:[address] Jose, Patient called as he was released from the hospital. Records from [facility] were scanned into chart. Patient states that his Depakote was increased to 1000 mg bid because his level was low. He is concerned however, because he had been weaning Depakote and he was taking 1000/750. No other changes to his medications were made. He would like to know if he should continue the 1000 mg bid? He has an appt scheduled to see you 02/08/21. Any changes at this time? Thanks~Louise AED: TPM 200 mg bid, Depakote 1000 mg bid * Telephone Encounter - Lilibeth Armstrong - 11/29/2020 11:29 AM CDT Record Release faxed to [facility]. They will hold release until patient is discharged. At that time, all records will be sent at once. * Telephone Encounter - Louise Mack RN - 11/29/2020 10:42 AM CDT Nett, Can you please obtain medical Records from patients hospital stay at [facility] in [place]. Patient is currently admitted since Sunday. Please ask they send them upon discharge. Thanks~Louise * Telephone Encounter - Louise Mack RN - 11/29/2020 10:[address] Jose, I spoke with Dennis. He is in [facility] in [place]. He has been there since Sunday. Hereports having an event while out to dinner Sunday where he was staring and unable to hear anything. He described it as zoning out. He had another one of these events in the emergency department and two more since he has been admitted. While at the hospital AED levels were drawn and Denins reports that his Depakote level was low and they have increased his Depakote dosage. Previously taking Depakote 1000/750, now increased back to 1000 mg bid. Informed Dennis that we can not make any changes while he is in the hospital, but that we will request his records from [facility] and follow up with him upon discharge. Thanks~Louise AED: TPM 200 mg bid, Depakote 1000/750-now increased to 1000 mg bid per patient. documented in this encounter Plan of Treatment Not on file documented as of this encounter Visit Diagnoses Not on filedocumented in this encounter Care Teams Spinner Hand Relationship Specialty Start Date End Date Sergey Wilson MD PCP - General 09/20/16 documented as of this encounter
--- OUTSIDE RECORDS SUMMARY | 2024-05-24 02:06 | XMS_ITS | Encounter Summary ---
Author Organization [facility] Healthcare Address [address] [place] [address] Care Team Providers Care Environmental Compliance Manager Name Role Phone Sergey Wilson MD Primary Care Provider [phone] Reason for Referral * Diagnostic Imaging (Routine) - Closed Specialty Diagnoses / Procedures Referred By Contac t Referred To Contact Radiology Diagnoses Intractable episodic headache, unspecified headache type Procedures CT Angiogram Head W WO Contrast Clifton Jose MD PhD [address] [place] [address] Phone: tel: fax: [address] [address] Referral ID Status Reason Start Date Expiration Date Visits Re quested Visits Authorized [id number] Closed 10/03/2022 11/02/2023 1 1 Reason for Visit * Diagnostic Imaging (Routine) - Closed Specialty Diagnoses / Procedures Referred By Contac t Referred To Contact Radiology Diagnoses Intractable episodic headache, unspecified headache type Procedures CT Angiogram Head W WO Contrast Clifton Jose MD PhD [address] [place] [address] Phone: tel: fax: [address] [phone] Referral ID Status Reason Start Date Expiration Date Visits Re quested Visits Authorized [id number] Closed 10/03/2022 11/02/2023 1 1 Encounter Details Date Type Department Care Team (Latest Contact Info) Description 10/17/2022 11:20 AM CDT - 10/17/2022 11:59 PM CDT Hospital Encounter [facility] [address] [place] [address] Clifton Jose MD PhD [address] [place] [address] Intractable episodic headache, unspecified headache type Discharge Disposition: Discharge to home or self care Social History Tobacco Use Types Packs/Day Years Used Date Smoking Tobacco: Former Smokeless Tobacco: Never Alcohol Use Standard Drinks/Week Comments No 0 (1 standard drink = 0.6 oz pur e alcohol) Sex and Gender Information Value Date Recorded Sex Assigned at Not on file 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 Gender Identity Not on file Sexual Orientation Not on file documented as of this encounter Medications at Time of Discharge amoxicillin (AMOXIL) 875 mg tablet aspirin 81 mg chewable tablet Take 1 tablet (81 mg total) by mouth daily cholecalciferol (VITAMIN D-3) 50,000 unit capsule Take 1 capsule (50,000 Units total) by mouth once a week sunday citalopram (CeleXA) 40 mg tablet Take 1 tablet (40 mg total) by mouth every morning colchicine (COLCRYS) 0.6 mg tablet cyanocobalamin/f olic acid (vitamin W36-iqofd acid) 2,500-400 mcg tablet,disintegr ating 05/14/1969 cyclobenzaprine (FLEXERIL) 10 mg tablet Take 1 tablet (10 mg total) by mouth 2 (two) times a day empagliflozin (JARDIANCE) 25 mg tabletIndication s:type 2 diabetes mellitus Take 1 tablet (25 mg total) by mouth daily enalapril (VASOTEC) 5 mg tablet Take 1 tablet (5 mg total) by mouth daily ergocalciferol (VITAMIN D) 50,000 unit capsule Take 1 capsule (50,000 Units total) by mouth 12/19/2021 fenofibrate (TRIGLIDE) 160 mg tablet Take 1 tablet (160 mg total) by mouth nightly 07/04/2020 fluticasone propion-salmeter ol (ADVAIR DISKUS) 250-50 mcg/dose diskus inhaler Inhale 1 puff 2 (two) times a day Rinse mouth with water after use. Do not swallow. fluticasone propionate (FLONASE) 50 mcg/actuation nasal spray Administer 2 sprays into each nostril nightly furosemide (LASIX) 40 mg tablet furosemide 40 mg tablet 10/28/2020 glimepiride (AMARYL) 1 mg tabletIndication s:type 2 diabetes mellitus Take 2 tablets (2 mg total) by mouth 2 (two) times a day before breakfast and dinner ibuprofen (ADVIL,MOTRIN) 800 mg tablet TAKE 1 TABLET BY MOUTH TWICE DAILY NEEDED FOR PAIN 01/20/2021 icosapent ethyL (VASCEPA) 1 gram capsule Take 2 capsules (2 g total) by mouth 2 (two) times a day levothyroxine (SYNTHROID) 50 mcg tablet Take 1 tablet (50 mcg total) by mouth duct layer before breakfast meclizine (ANTIVERT) 12.5 mg tablet TAKE 1 TABLET BY MOUTH THREE TIMES DAILY NEEDED FOR DIZZINESS 01/12/2022 montelukast (SINGULAIR) 10 mg tablet Take 1 tablet (10 mg total) by mouth daily naproxen sodium 220 mg capsule ALEVE CAPSULE 05/14/1969 nortriptyline (PAMELOR) 75 mg capsule Take 1 capsule (75 mg total) by mouth 2 (two) times a day omega-3 fatty acids (LOVAZA) 1 gram capsule omeprazole (PriLOSEC) 20 mg capsule Take 1 capsule (20 mg total) by mouth daily before breakfast Bakers Shoes[employer]OUCH ULTRA BLUE TEST STRIP strip USE TO TEST QD 0 09/13/2017 ONETOUCH ULTRA2 kit USE TO TEST QD 0 09/13/2017 pioglitazone (ACTOS) 30 mg tabletIndication s:type 2 diabetes mellitus Take 1 tablet (30 mg total) by mouth daily rosuvastatin (CRESTOR) 40 mg tablet Take 1 tablet (40 mg total) by mouth nightly 06/04/2020 umeclidinium (INCRUSE ELLIPTA) 62.5 mcg/actuation blister with device Incruse Ellipta 62.5 mcg/actuation powder for inhalation albuterol HFA (PROVENTIL HFA,VENTOLIN HFA,PROAIR HFA) 90 mcg/actuation inhaler Inhale 2 puffs every 4 (four) hours as needed for wheezing or shortness of breath 4 divalproex ER (DEPAKOTE ER) 500 mg 24 hr tablet Take 2 tablets (1,000 mg total) by mouth every morning AND 1 tablet (500 mg total) nightly. 270 tablet 3 10/03/2022 4 topiramate (TOPAMAX) 200 mg tablet Take 1 tablet (200 mg total) by mouth 2 (two) times a day 180 tablet 3 10/03/2022 4 documented as of this encounter Discharge Disposition Disposition Code Departure Means Destination Discharge to home or self care documented in this encounter Miscellaneous Notes * Result Encounter Note - Clifton Jose MD PhD - 10/17/2022 4:57 PM CDT Please call the patient regarding his result. [...] Procedure Name Priority Date/Time Associated Diagnosis Comments CTA HEAD W WO CONTRAST Schedule Routine, Read Routine (OP Routine) 10/17/2022 12:43 PM CDT Intractable episodic headache, unspecified headache type POCT CREATININE - DEVICE Routine 10/17/2022 12:07 PM CDT documented in this encounter Results * CT Angiogram Head W WO Contrast (10/17/2022 12:43 PM CDT) Anatomical Region Laterality Modality Head and Neck N/A Computed Tomogra phy 10/17/2022 3:26 PM CDT Impressions 10/17/2022 4:01 PM CDT No acute intracranial abnormality. Normal CT angiogram of the head. Dictated by: Paolo Vale M.D. The radiology attending physician has personally reviewed this study, and had reviewed and/or edited this written report and agrees with it. Electronically signed by: Brittany Sykes M.D., Ph.D. Narrative 10/17/2022 4:01 PM CDT EXAMINATION: Computed tomography angiography (CTA) of the head without and with contrast HISTORY: Severe headache with pulsatile tinnitus. ??History of seizures with right temporal lobectomy in 2012 TECHNIQUE: Computed tomography of the head was performed without contrast according to standard protocol. Computed tomographic angiography was then obtained from the skull base to the vertex following the uneventful administration of intravenous contrast. 3D images were generated on a dedicated workstation. Contrast information: 90 mL Optiray-350 COMPARISON: Head CT dated 08/29/2020. FINDINGS: Postoperative changes of right temporal craniotomy with mesial temporal lobectomy. There is no acute intracranial hemorrhage. Ventricles are of normal size and morphology. No mass effect or midline shift is present. The driver-white matter differentiation is normal. The visualized portions of the orbits are normal. The visualized portions of the mastoids are normal. The visualized portions of the paranasal sinuses are normal. No fractures are identified. Angiographic findings: The visualized course and caliber of the internal carotid arteries are normal. No areas of atherosclerotic narrowing or filling defects are identified. There are no appreciable posterior to indicating arteries. The anterior and middle cerebral arteries are normal. The vertebral arteries are codominant. The basilar artery is normal. The posterior cerebral arteries are normal. There is no aneurysm or vascular malformation identified. Procedure Note Brittany Sykes MD PhD - 10/17/2022 EXAMINATION: Computed tomography angiography (CTA) of the head without and with contrast HISTORY: Severe headache with pulsatile tinnitus. History of seizures with right temporal lobectomy in 2012 TECHNIQUE: Computed tomography of the head was performed without contrast according to standard protocol. Computed tomographic angiography was then obtained from the skull base to the vertex following the uneventful administration of intravenous contrast. 3D images were generated on a dedicated workstation. Contrast information: 90 mL Optiray-350 COMPARISON: Head CT dated 08/29/2020. FINDINGS: Postoperative changes of right temporal craniotomy with mesial temporal lobectomy. There is no acute intracranial hemorrhage. Ventricles are of normal size and morphology. No mass effect or midline shift is present. The driver-white matter differentiation is normal. The visualized portions of the orbits are normal. The visualized portions of the mastoids are normal. The visualized portions of the paranasal sinuses are normal. No fractures are identified. Angiographic findings: The visualized course and caliber of the internal carotid arteries are normal. No areas of atherosclerotic narrowing or filling defects are identified. There are no appreciable posterior to indicating arteries. The anterior and middle cerebral arteries are normal. The vertebral arteries are codominant. The basilar artery is normal. The posterior cerebral arteries are normal. There is no aneurysm or vascular malformation identified. IMPRESSION: No acute intracranial abnormality. Normal CT angiogram of the head. Dictated by: Paolo Vale M.D. The radiology attending physician has personally reviewed this study, and had reviewed and/or edited this written report and agrees with it. Electronically signed by: Brittany Sykes M.D., Ph.D. us Clifton Jose MD PhD IMG CT PROCEDURES Final R esult * POCT creatinine (10/17/2022 12:07 PM CDT) Creatinine POC 1.3 0.7 - 1.3 mg/dL [facility] Blood 10/17/2022 12:0 7 PM CDT 10/17/2022 12:07 PM CDT Sergey Wilson MD LAB POCT ORDERABLES - DEVICE Final Result [facility] Department [place] [address] documented in this encounter Visit Diagnoses Diagnosis Intractable episodic headache, unspecified headache type documented in this encounter Administered Medications Inactive Administered Medications - up to 3 most recent administrations Medication Order MAR Action Action Date Dose Rate Site ioversoL (OPTIRAY 350) syringe 100 mL 100 mL, intravenous, Once in imaging, contrast, Starting on 10/17/22 at 1243, For 1 dose Contrast Given 10/17/2022 12:44 PM CDT 90 mL documented in this encounter Orders Medications Ordered That Geo ht Not Have Been Administered Count Last Ordered Date First Ordered Date ioversoL (OPTIRAY 350) syringe 100 mL 1 10/2022 documented in this encounter Care Teams Environmental Compliance Manager Relationship Specialty Start Date End Date Sergey Wilson MD PCP - General 09/20/16 documented as of this encounter
--- OUTSIDE RECORDS SUMMARY | 2024-05-24 02:06 | XMS_ITS | Encounter Summary ---
Author Organization [facility] Healthcare Address [address] [place] [address] Care Team Providers Care Ultrasound Spec Name Role Phone Sergey Wilson MD Primary Care Provider [phone] Encounter Details Date Type Department Care Team (Latest Contact Info) Description 09/08/2021 5:14 PM CDT - 09/08/2021 11:59 PM CDT Hospital Encounter [facility] Discharge Disposition: Discharge to home or self care Social History Tobacco Use Types Packs/Day Years Used Date Smoking Tobacco: Former Smokeless Tobacco: Never Alcohol Use Standard Drinks/Week Comments No 0 (1 standard drink = 0.6 oz pur e alcohol) Sex and Gender Information Value Date Recorded Sex Assigned at Not on file 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 270 tablet 3 02/08/2021 2 topiramate (TOPAMAX) 200 mg tablet Take 1 tablet (200 mg total) by mouth 2 (two) times a day 180 tablet 3 02/08/2021 2 documented as of this encounter Discharge Disposition Disposition Code Departure Means Destination Discharge to home or self care documented in this encounter Plan of Treatment Not on file documented as of this encounter Visit Diagnoses Not on filedocumented in this encounter Care Teams Ultrasound Spec Relationship Specialty Start Date End Date Sergey Wilson MD PCP - General 09/20/16 documented as of this encounter
--- OUTSIDE RECORDS SUMMARY | 2024-05-24 02:06 | XMS_ITS | Encounter Summary ---
Author Organization [facility] Address [address] [facility] [address] [place] [address] Phone Care Team Providers Care Harness Brusher Name Role Phone Sergey Wilson MD Primary Care Provider [phone] Reason for Referral * Pulmonology (Routine) - Closed Specialty Diagnoses / Procedures Referred By Contac t Referred To Contact Pulmonology Diagnoses Exertional dyspnea Procedures Pulmonary Function Test -[facility]- [facility]; Spirometry, Spirometry with Bronchodilator, Oxygen Assessment Titration, ABG, DLCO, Lung Volumes; Pleth with Airway Resistance; Room Air ABG; Spirometry Leno Larsen MD [address] [facility] [address] [place] [address] Phone: tel: fax: [facility] Pulmonary [facility] [address] [place] [address] Phone: tel: fax: Referral ID Status Reason Start Date Expiration Date Visits Re quested Visits Authorized [id number] Closed 02/08/2021 10/29/2021 12 12 Reason for Visit * Pulmonology (Routine) - Closed Specialty Diagnoses / Procedures Referred By Contac t Referred To Contact Pulmonology Diagnoses Exertional dyspnea Procedures Pulmonary Function Test -[facility]- [facility]; Spirometry, Spirometry with Bronchodilator, Oxygen Assessment Titration, ABG, DLCO, Lung Volumes; Pleth with Airway Resistance; Room Air ABG; Spirometry Leno Larsen MD [address] [facility] [address] [place] [address] Phone: tel: fax: [facility] Pulmonary [address] [facility] [address] [place] [address] Phone: tel: fax: Referral ID Status Reason Start Date Expiration Date Visits Re quested Visits Authorized [id number] Closed 02/08/2021 10/29/2021 12 12 Encounter Details Date Type Department Care Team (Latest Contact Info) Description 02/08/2021 11:10 AM CDT - 02/08/2021 12:08 PM CDT Hospital Encounter [facility] Pulmonary [address] [facility] [address] [place] [id number] Exertional dyspnea Discharge Disposition: Discharge to home or self care Social History Tobacco Use Types Packs/Day Years Used Date Smoking Tobacco: Former Smokeless Tobacco: Never Alcohol Use Standard Drinks/Week Comments No 0 (1 standard drink = 0.6 oz pur e alcohol) Sex and Gender Information Value Date Recorded Sex Assigned at Not on file 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 Gender Identity Not on file Sexual Orientation Not on file documented as of this encounter Medications at Time of Discharge aspirin 81 mg chewable tablet Take 1 tablet (81 mg total) by mouth daily citalopram (CeleXA) 40 mg tablet Take 1 tablet (40 mg total) by mouth every morning colchicine (COLCRYS) 0.6 mg tablet cyanocobalamin/f olic acid (vitamin U96-qwjaj acid) 2,500-400 mcg tablet,disintegr ating 05/14/1969 cyclobenzaprine [...] mg tablet furosemide 40 mg tablet 10/28/2020 ibuprofen (ADVIL,MOTRIN) 800 mg tablet TAKE 1 TABLET BY MOUTH TWICE DAILY NEEDED FOR PAIN 01/20/2021 levothyroxine (SYNTHROID) 50 mcg tablet Take 1 tablet (50 mcg total) by mouth cloth brushing and sueding supervisor before breakfast montelukast (SINGULAIR) 10 mg tablet [...] mg total) by mouth daily before breakfast ONETOUCH ULTRA BLUE TEST STRIP strip USE TO TEST QD 0 09/13/2017 [employer] Auto Sales[employer]CH ULTRA2 kit USE TO TEST QD 0 [...] for wheezing or shortness of breath 4 bisacodyl EC (DULCOLAX EC) 5 mg EC tablet Laxative (bisacodyl) 5 mg tablet TAKE ALL 6 TABLETS BY MOUTH AT 8 AM ON 01-24-21 2 divalproex ER (DEPAKOTE ER) 500 mg 24 hr tabletIndication s:epilepsy Take 2 tablets (1,000 mg total) by mouth daily AND 1 tablet (500 mg total) nightly. 270 tablet 3 02/08/2021 2 lidocaine (LIDODERM) 5 % Place 1 patch on the skin daily 09/25/2020 2 topiramate (TOPAMAX) 200 mg tablet Take 1 tablet (200 mg total) by mouth 2 (two) times a day 180 tablet 3 02/08/2021 2 traMADol (ULTRAM) 50 mg tablet Take 50 mg by mouth every 6 (six) hours as needed for pain 2 documented as of this encounter Discharge Disposition Disposition Code Departure Means Destination Discharge to home or self care documented in this encounter Plan of Treatment Not on file documented as of this encounter Procedures Procedure Name Priority Date/Time Associated Diagnosis Comments PULMONARY FUNCTION TEST (PFT) Routine 02/08/2021 11:59 AM CDT Exertional dyspnea documented in this encounter Results * Pulmonary Function Test - (02/08/2021 11:59 AM CDT) FVC PRE 3.92 L [facility] FVC %PRE PRED 90 % [facility] FVC POST 3.87 L [facility] FVC %POST PRED 89 % [facility] FEV1 PRE 3.24 L [facility] FEV1 %PRE PRED 95 % [facility] FEV1 POST 3.17 L [facility] FEV1 %POST PRED 93 % [facility] FEV1/FVC PRE 82.5 % [facility] FEV1/FVC POST 82.0 % [facility] FRC PL PRE 2.32 L [facility] FRC PL %PRE PRED 71 % [facility] RV PRE 1.75 L [facility] RV %PRE PRED 87 % [facility] TLC PRE 5.52 L [facility] TLC %PRE PRED 86 % [facility] DLCO PRE 27.9 ml/min/mmH g [facility] DLCO %PRE PRED 108 % [facility] FIO2 % 0.21 % [facility] PaO2 75.0 mmHg [facility] PaCO2 37.0 mmHg [facility] pH 7.40 [facility] A-aDO2 POC 28.0 mmHg [facility] METHGB % 0.6 % [facility] COHb POC 0.4 % [facility] HCO3 22.9 mEq/L [facility] Anatomical Region Laterality Modality PFT 02/08/2021 11:2 7 AM CDT Narrative 02/12/2021 12:43 PM CDT [facility] Division of Pulmonary & Critical Care Medicine [address] [place] [address]; [place] [address]; [place], [place] ??[address]; [phone] Pulmonary Function Laboratory Pulmonary Stress Test Simple/Oxygen Assessment Patient: Dennis Branch Date: 02/08/2021 Physician: JONATHAN Ht: 67IN ?? Wt: [id number] Room: OP Vp Production: MARY : 1965 Diagnosis: ASTHMA, SINGER, ALLA Time(min) Distance (ft)/ Go O2 L/M SpO2 HR Therese* BP FEV1/ ?% Pred Rest: ?RA 100 86 0 135/81 3.24/95 ? Walk/Bike: ? 1 ??RA 99 92 4 ?? 2 ??RA 97 91 5 ?? 3 220 RA 98 93 5 ?? 4 ? 5 ? 6 min 0 sec ? Recovery: ? 1 ??RA 100 89 3 136/93 3.16/93 ?/ ? *Therese rate of perceived exertion (1-10 dyspnea scale) ?? Bob, CHEST 2003; 123:[id number] Walk Test Summary: Six Minute Walk Distance: 220 ft Six minute Walk Work [distance (m) x body wt (kg)]: 7104 kg.m (normal >60,000 kg.m) Oxygen required to maintain SpO2 greater than 90% during six minutes of walking: ??L/M Comments:C/O BACK/HIP/KNEE PAIN PT STOPPED 'STATED HIS BALANCE IS UNSTABLE Interpretation: Breathing room air, SpO2 is normal at rest and during exercise sufficient to increase pulse from ??86 to 95 b/min, SpO2 is stable. ??On this basis, SpO2 is adequate at rest breathing room air and while walking breathing room air. ??This level of exercise is associated with no significant change of FEV1. DR. MINA By signing this report, the attending pulmonary physician certifies that he/she has personally reviewed and interpreted the graphic and numerical data associated with this pulmonary function study and has reviewed and /or edited a preliminary draft report and agrees with the written final report. PFT performed at:->[facility] Adult PFT Lab- [facility] Procedure:->Spirometry Procedure:->Spirometry with Bronchodilator Procedure:->Oxygen Assessment Titration Procedure:->ABG Procedure:->DLCO Procedure:->Lung Volumes Lung Volumes via:->Pleth with Airway Resistance ABG:->Room Air ABG DLCO:->Spirometry Leno Larsen MD PFT ORDERABLES Final Result documented in this encounter Visit Diagnoses Diagnosis Exertional dyspnea Other dyspnea and respiratory abnormality documented in this encounter Care Teams Harness Brusher Relationship Specialty Start Date End Date Sergey Wilson MD PCP - General 09/20/16 documented as of this encounter
--- OUTSIDE RECORDS SUMMARY | 2024-05-24 02:06 | XMS_ITS | Encounter Summary ---
Author Organization [facility] Healthcare Address [address] [place] [address] Care Team Providers Care Nephrology Nurse Name Role Phone Sergey Wilson MD Primary Care Provider [phone] Encounter Details Date Type Department Care Team (Latest Contact Info) Description 04/29/2021 9:06 PM MECHANOTHERAPIST - 04/29/2021 11:59 PM MECHANOTHERAPIST Hospital Encounter [facility] Discharge Disposition: Discharge to home or self care Social History Tobacco Use Types Packs/Day Years Used Date Smoking Tobacco: Former Smokeless Tobacco: Never Alcohol Use Standard Drinks/Week Comments No 0 (1 standard drink = 0.6 oz pur e alcohol) Sex and Gender Information Value Date Recorded Sex Assigned at Not on file 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 Gender Identity Not on file Sexual Orientation Not on file documented as of this encounter Medications at Time of Discharge aspirin 81 mg chewable tablet Take 1 tablet (81 mg total) by mouth daily citalopram (CeleXA) 40 mg tablet Take 1 tablet (40 mg total) by mouth every morning colchicine (COLCRYS) 0.6 mg tablet cyanocobalamin/f olic acid (vitamin P74-tuuwn acid) 2,500-400 mcg tablet,disintegr ating 05/14/1969 cyclobenzaprine [...] 1 tablet (50 mcg total) by mouth 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
--- OUTSIDE RECORDS SUMMARY | 2024-05-24 02:06 | XMS_ITS | Encounter Summary ---
Author Organization [facility] Address [address] [place] [address] Care Team Providers Care Refrigerator Room Clerk Name Role Phone Sergey Wilson MD Primary Care Provider [phone] Encounter Details Date Type Department Care Team (Latest Contact Info) Description 07/04/2021 6:51 PM ALLIGATOR HUNTER - 07/04/2021 7:31 PM ALLIGATOR HUNTER Hospital Encounter [facility] [address] [place] [address] Discharge Disposition: Discharge to home or self care Social History Tobacco Use Types Packs/Day Years Used Date Smoking Tobacco: Former Smokeless Tobacco: Never Alcohol Use Standard Drinks/Week Comments No 0 (1 standard drink = 0.6 oz pur e alcohol) Sex and Gender Information Value Date Recorded Sex Assigned at Not on file 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 Gender Identity Not on file Sexual Orientation Not on file documented as of this encounter Medications at Time of Discharge aspirin 81 mg chewable tablet Take 1 tablet (81 mg total) by mouth daily citalopram (CeleXA) 40 mg tablet Take 1 tablet (40 mg total) by mouth every morning colchicine (COLCRYS) 0.6 mg tablet cyanocobalamin/f olic acid (vitamin O95-fauqj acid) 2,500-400 mcg tablet,disintegr ating 05/14/1969 cyclobenzaprine [...] 1 tablet (50 mcg total) by mouth 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
--- OUTSIDE RECORDS SUMMARY | 2024-05-24 02:06 | XMS_ITS | Encounter Summary ---
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 Gender Identity Not on file Sexual Orientation [...] 0.6 mg tablet cyanocobalamin/f olic acid (vitamin F53-rwyah acid) 2,500-400 mcg tablet,disintegr ating 05/14/1969 cyclobenzaprine [...] 1 tablet (50 mcg total) by mouth steamfitter apprentice before breakfast montelukast (SINGULAIR) 10 mg tablet [...] mg total) by mouth daily before breakfast On[employer] CorporationTOUCH ULTRA BLUE TEST STRIP strip USE TO TEST QD 0 09/13/2017 [employer] ULTRA2 kit USE TO TEST QD 0 [...] on filedocumented in this encounter Care Teams Companion Relationship Specialty Start Date End Date Sergey Wilson MD PCP - General 09/20/16 documented as of this encounter
--- OUTSIDE RECORDS SUMMARY | 2024-05-24 02:06 | XMS_ITS | Encounter Summary ---
Author Organization [facility] Healthcare Address [address] [place] [address] Care Team Providers Care General Labor Forklift Operator Name Role Phone Sergey Wilson MD Primary Care Provider [phone] Reason for Visit * Reason Comments Syncope BIBEMS for syncopal episode at [employer], witnessed didn't hit head, LOC for approx 5 min, heard ringing in ears and pt doesn't remember eventPOA for pt is brother Celestino Encounter Details Date Type Department Care Team (Late st Contact Info) Description 07/04/2021 7:32 PM HEATING MECHANIC - 07/05/2021 1:30 AM [facility] Emergency [facility] Emergency Department [address] [place] [address] Fabien Simental, DO [address] [place] [address] [place] [address] Syncope, unspecified syncope type (Primary Dx) Discharge Disposition: Discharge to home or self care Social History Tobacco Use Types Packs/Day Years Used Date Smoking Tobacco: Former Smokeless Tobacco: Never Alcohol Use Standard Drinks/Week Comments No 0 (1 standard drink = 0.6 oz pur e alcohol) Sex and Gender Information Value Date Recorded Sex Assigned at Not on file 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 HEATING MECHANIC Gender Identity Not on file Sexual Orientation Not on file documented as of this encounter Last Filed Vital Signs Vital Sign Reading Time Taken Comments Blood Pressure 121/73 07/04/2021 10:00 PM HEATING MECHANIC Pulse 75 07/05/2021 1:00 AM HEATING MECHANIC Temperature - - Respiratory Rate 16 07/05/2021 1:00 AM HEATING MECHANIC Oxygen Saturation 98% 07/05/2021 1:00 AM HEATING MECHANIC Inhaled Oxygen Concentration - - Weight 127 kg (279 lb 15.8 oz) 07/04/2021 7:43 P M HEATING MECHANIC Height 177.8 cm (5' 10 ) 07/04/2021 7:43 PM HEATING MECHANIC Body Mass Index 40.17 07/04/2021 7:43 PM HEATING MECHANIC documented in this encounter Discharge Diagnoses Diagnosis Syncope and collapse - SYNCOPE AND COLLAPSE Unspecified asthma, uncomplicated - UNSPECIFIED ASTHMA, UNCOMPLICATED Type 2 diabetes mellitus without complications (CMS/HCC) ([facility]) - TYPE 2 DIABETES MELLITUS WITHOUT COMPLICATIONS Essential (primary) hypertension - ESSENTIAL (PRIMARY) HYPERTENSION Unspecified essential hypertension Personal history of nicotine dependence - PERSONAL HISTORY OF NICOTINE DEPENDENCE Obstructive sleep apnea (adult) (pediatric) - OBSTRUCTIVE SLEEP APNEA (ADULT) (PEDIATRIC) Presence of cardiac pacemaker - PRESENCE OF CARDIAC PACEMAKER Cardiac pacemaker in situ group home (current) use of aspirin - CRAPS DEALER (CURRENT) USE OF ASPIRIN Other assisted (current) drug therapy - OTHER INTERMEDIATE (CURRENT) DRUG THERAPY documented in this encounter Discharge Instructions * Discharge Instructions* Fabien Simental DO - 07/05/2021 1:27 AM HEATING MECHANIC Continue your medications as previously prescribed Return to the emergency department for any worsening symptoms ING MECHANIC * Attachments The following attachments cannot be sent through Care Everywhere. * Fainting, Uncertain Cause ([place]) * Syncope (AfterCare(R) Instructions(ER/ED)) ([place]) documented in this encounter Medications at Time of Discharge aspirin 81 mg chewable tablet Take 1 tablet (81 mg total) by mouth daily citalopram (CeleXA) 40 mg tablet Take 1 tablet (40 mg total) by mouth every morning colchicine (COLCRYS) 0.6 mg tablet cyanocobalamin/f olic acid (vitamin X10-kekyr acid) 2,500-400 mcg tablet,disintegr ating 05/14/1969 cyclobenzaprine [...] 1 tablet (50 mcg total) by mouth service observer before breakfast montelukast (SINGULAIR) 10 mg tablet [...] mg total) by mouth daily before breakfast Faction Skis ULTRA BLUE TEST STRIP strip USE TO TEST QD 0 09/13/2017 Faction Skis ULTRA2 kit USE TO TEST QD 0 [...] total) nightly. 270 tablet 3 02/08/2021 2 glimepiride (AMARYL) 1 mg tablet TAKE 2 TABLETS BY MOUTH TWICE DAILY BEFORE MEALS 07/05/2021 2 lidocaine (LIDODERM) 5 % Place 1 [...] or self care documented in this encounter ED Notes * Fabien Simental, - 07/04/2021 8:27 PM CST HPI Chief Complaint Patient presents with ??? Syncope BIBEMS for syncopal episode at [employer], witnessed didn't hit head, LOC for approx 5 min, heard ringing in ears and pt doesn't remember event POA for pt is brother Celestino HPI 8:43 PM - Dennis Branch is a 56 y.o. male patient presenting to the ED via EMS from [employer] [facility] complaining of syncopal episode. Patient remembers a sensation of his ears ringing, he felt dizzy, lightheaded, weak, and then reports being amnestic of any further events. It was witnessed by others present. No seizure activity noted. He did not fall or hurt himself. Denies any chest pain or shortness of breath. No nausea or vomiting No recent fever or chills Past medical history noted for pacemaker, DM2, HTN, asthma, anxiety, ALLA, partial complex seizure disorder, nonepileptic seizures. Patient's friend at bedside reports that this patient has episodes like this every few weeks, and this episode was no different than what he has had before. She was there at the restaurant when it occurred. Patient History: Past Medical History: Diagnosis Date ??? Anxiety disorder Anxiety - (Added by TW Conv) ??? Asthma ??? Diabetes (HCC) 06/05/2019 ??? Hypertension ??? Personal history of other diseases of the circulatory system History of hypertension - (Added by TW Conv) ??? Personal history of other diseases of the respiratory system Personal history of asthma - (Added by TW Conv) ??? Personal history of other mental and behavioral disorders History of depression - (Added by TW Conv) ??? Reflux esophagitis Chronic Reflux Esophagitis - (Added by TW Conv) ??? Seizures (CMS/HCC) (HCC) Past Surgical History: Procedure Laterality Date ??? CARDIAC PACEMAKER PLACEMENT Pacemaker Placement - (Added by TW Conv) ??? WA CRANIOT W BONE FLAP FOR AMYGDALOHIPPOCAMPECTOMY Craniotomy For Amygdalohippocampectomy - (Added by TW Conv) Family History Problem Relation Age of Onset ??? Brain cancer Brother Brain tumor - (Added by TW Conv) ??? Diabetes Brother ??? Cancer Father ??? Diabetes Sister Social History Tobacco Use ??? Smoking status: Former Smoker ??? Smokeless tobacco: Never Used Substance Use Topics ??? Alcohol use: No ??? Drug use: No Review of Systems Review of Systems Constitutional: Negative for activity change, chills, diaphoresis, fatigue and fever. HENT: Positive for tinnitus. Negative for congestion, sore throat and trouble swallowing. Eyes: Negative for photophobia, pain, discharge and visual disturbance. Respiratory: Negative for cough and shortness of breath. Cardiovascular: Negative for chest pain and palpitations. Gastrointestinal: Negative for abdominal pain and vomiting. Genitourinary: Negative for dysuria and flank pain. Musculoskeletal: Negative for arthralgias, back pain and neck pain. Skin: Negative for color change and rash. Neurological: Positive for dizziness, syncope and light-headedness. Negative for seizures, weaknessand headaches. All other systems reviewed and are negative. Physical Exam ED Triage Vitals [07/04/211940] Temp Pulse Resp BP SpO2 -- 84 18 129/73 96 % Temp src Heart Rate Source Patient Position BP Location FiO2 (%) -- -- -- -- -- Physical Exam Vitals and nursing note reviewed. Constitutional: Appearance: He is well-developed. HENT: Head: Normocephalic and atraumatic. Right Ear: External ear normal. Left Ear: External ear normal. Mouth/Throat: Mouth: Mucous membranes are moist. Eyes: Extraocular Movements: Extraocular movements intact. Conjunctiva/sclera: Conjunctivae normal. Pupils: Pupils are equal, round, and reactive to light. Cardiovascular: Rate and Rhythm: Normal rate and regular rhythm. Heart sounds: Normal heart sounds. No murmur heard. Pulmonary: Effort: Pulmonary effort is normal. No respiratory distress. Breath sounds: Normal breath sounds. Abdominal: Palpations: Abdomen is soft. Tenderness: There is no abdominal tenderness. Musculoskeletal: General: No tenderness. Normal range of motion. Cervical back: Neck supple. Right lower leg: No edema. Left lower leg: No edema. Skin: General: Skin is warm and dry. Capillary Refill: Capillary refill takes less than 2 seconds. Neurological: General: No focal deficit present. Mental Status: He is alert and oriented to person, place, and time. Psychiatric: Mood and Affect: Mood normal. Behavior: Behavior normal. Thought Content: Thought content normal. Judgment: Judgment normal. Procedures [facility] Labs Reviewed URINALYSIS AND REFLEX TO MICROSCOPIC AND CULTURE CBC WITH AUTO DIFFERENTIAL COMPREHENSIVE METABOLIC PANEL TROPONIN T HIGH-SENSITIVITY SERIES (BASELINE, 2HR, 4HR, 6HR) TROPONIN T HIGH-SENSITIVITY 2-HOUR TROPONIN T HIGH-SENSITIVITY 4-HR TROPONIN T HIGH-SENSITIVITY 6-HOUR DIFFERENTIAL AUTO EKG Time 7:37 p.m. Normal sinus rhythm 83 beats per minute LAFB noted Normal axis Normal T-waves Interpretation by me XR Chest 1 Vw Portable (Results Pending) BP 129/73 Pulse 84 Resp 18 Ht 177.8 cm (5' 10 ) Wt 127 kg (279 lb 15.8 oz) SpO2 96% BMI40.17 kg/m?? MDM 11:38 p.m. Discussed with ANIMAL BEHAVIORIST covering for Dr. Carlos, stable for outpatient management from a cardiology standpoint. The interrogation of his loop recorder revealed no arrhythmias. Second troponin is pending at this time 1:27 a.m. Second troponin unremarkable Patient has been asymptomatic here in the ER for 6 hours Stable for outpatient follow-up Impression: Syncope, unspecified syncope type Fabien Simental, 07/05/21 0129 ING MECHANIC * Naomi Ferrara - 07/04/2021 7:38 PM CST BIBEMS for syncopal episode, pt remembers ringing in ears, LOC for approx 5 mins, denies hitting head, witnessed reports denied seizure like activities ING MECHANIC documented in this encounter Plan of Treatment Not on file documented as of this encounter Procedures Procedure Name Priority Date/Time Associated Diagnosis Comments TROPONIN T HIGH-SENSITIVITY 4-HR Timed 07/05/2021 12:30 AM HEATING MECHANIC TROPONIN T HIGH-SENSITIVITY 2-HOUR Timed 07/04/2021 11:45 PM HEATING MECHANIC URINALYSIS AND REFLEX TO MICROSCOPIC AND CULTURE STAT 07/04/2021 9:25 PM HEATING MECHANIC XR CHEST 1 VIEW ED 07/04/2021 9:15 PM HEATING MECHANIC TROPONIN T HIGH-SENSITIVITY SERIES (BASELINE, 2HR, 4HR, 6HR) STAT 07/04/2021 8:31 PM HEATING MECHANIC EGFR STAT 07/04/2021 8:31 PM HEATING MECHANIC DIFFERENTIAL AUTO STAT 07/04/2021 8:3 1 PM HEATING MECHANIC CBC WITH AUTO DIFFERENTIAL STAT 07/04/2021 8:31 PM HEATING MECHANIC COMPREHENSIVE METABOLIC PANEL STAT 07/04/2021 8:31 PM HEATING MECHANIC ECG 12-LEAD STAT 07/04/2021 7:37 PM HEATING MECHANIC documented in this encounter Results * Troponin T high-sensitivity 4-hour (07/05/2021 12:30 AM HEATING MECHANIC) Trop T hs 8 <=22 ng/L JOHANNY VALENCIA Comment: Interpretive Data For further hscTnT resources including the diagnostic algorithm and an aid in interpretation, copy and paste this link: https://nrl.nanoTherics.org/show/hsTrop Current Interpretive Data last revised 2020. Trop T hs delta -4 ng/L JOHANNY VALENCIA Trop T hs interp Insignificant JOHANNY VALENCIA Blood 07/05/2021 12:3 0 AM HEATING MECHANIC 07/05/2021 12:34 AM HEATING MECHANIC us Fabien Simental DO LAB BLOOD ORDERABLES Final Res ult JOHANNY VALENCIA [address] Department [place] [address] * Troponin T high-sensitivity 2-hour (07/04/2021 11:45 PM HEATING MECHANIC) Trop T hs See Comment <=22 ng/L JOHANNY VALENCIA Comment: Specimen is hemolyzed. 4 hour troponin will be next. Called to Fernando Lehman on 07/05/2021 00:40:34 HEATING MECHANIC by Jono Boyer. Interpretive Data For further hscTnT resources including the diagnostic algorithm and an aid in interpretation, copy and paste this link: https://nrl.nanoTherics.org/show/hsTrop Current Interpretive Data last revised 2020. Trop T hs delta See Comment ng/L JOHANNY VALENCIA Comment:Inappropriate collec tion time to report a delta. Trop T hs pct delta See Comment % JOHANNY VALENCIA Comment:Inappropriate collec tion time to report a delta. Trop T hs interp See Comment JOHANNY VALENCIA Comment:Inappropriate collec tion time to report a delta. Blood 07/04/2021 11:4 5 PM HEATING MECHANIC 07/05/2021 12:02 AM HEATING MECHANIC us Fabien Simental DO LAB BLOOD ORDERABLES Final Res ult JOHANNY VALENCIA [address] Department [place] [address] * (ABNORMAL) Urinalysis reflex to microscopic and culture Urine (07/04/2021 9:25 PM HEATING MECHANIC) Color, ur Yellow Yellow CERNER CH Clarity, ur Clear Clear CERNER CH Specific gravity, ur 1.030 1.003 - 1.030 CERNER CH pH, urine 6.0 CERNER CH Protein, ur ql Negative Negative CERNER CH Glucose, ur ql 3+(A) Negative CERNER CH Ketones, ur Negative Negative CERNER CH Bilirubin, ur Negative Negative CERNER CH Blood, ur Negative Negative CERNER CH Urobilinogen, ur 2.0(A) <2.0 mg/dL CERNER CH Nitrite, ur Negative Negative CERNER CH Leukocyte esterase, ur Negative Negative CERNER CH UA reflex comment Reflex conditions for microscopic UA and culture not met. CERNER CH Urine 07/04/2021 9:25 PM HEATING MECHANIC 07/04/2021 9:56 PM HEATING MECHANIC Narrative CERNER CH - 07/04/2021 9:57 PM HEATING MECHANIC ?? Urine pH is affected by diet, medications, systemic acid-base disturbances, and renal tubular function. ??pH may affect urinary stone formation. ??For example, urine pH below 6.0 may help reduce the tendency for calcium phosphate stones and pH greater than 6.0 may reduce the tendency for uric acid stone formation. Source: [employer] [facility]. Last revised 05-24-2017 us Fabien Simental DO LAB MICROBIOLOGY - GENERAL ORD ERABLES Final Result JOHANNY VALENCIA [address] Department [place] [address] * XR Chest 1 Vw Portable (07/04/2021 9:15 PM HEATING MECHANIC) Anatomical Region Laterality Modality Body, Chest N/A Computed Radiogr aphy 07/04/2021 10:2 8 PM HEATING MECHANIC Impressions 07/04/2021 10:28 PM HEATING MECHANIC Negative study. Electronically signed by: Audrey Jackman M.D. Narrative 07/04/2021 10:28 PM HEATING MECHANIC EXAMINATION: XR CHEST 1 VIEW HISTORY: The patient is a 56-year-old male with syncope. ??Comparison is made with the previous study of 02/08/2021. TECHNIQUE: AP portable view of the chest. FINDINGS: Lungs clear. ??Cardiovascular structures unremarkable. Procedure Note Audrey Jackman MD - 07/04/2021 EXAMINATION: XR CHEST 1 VIEW HISTORY: The patient is a 56-year-old male with syncope. Comparison is made with the previous study of 02/08/2021. TECHNIQUE: AP portable view of the chest. FINDINGS: Lungs clear. Cardiovascular structures unremarkable. IMPRESSION: Negative study. Electronically signed by: Audrey Jackman M.D. Fabien Simental DO IMG XR PROCEDURES Final Result * eGFR (07/04/2021 8:31 PM HEATING MECHANIC) eGFR 89 mL/min/1. 73 m2 JOHANNY VALENCIA Comment: Interpretive Data Reference Interval Normal ?>/= [...] interpretive data was last reviewed 2021. Blood 07/04/2021 8:31 PM HEATING MECHANIC 07/04/2021 8:40 PM HEATING MECHANIC us Fabien Simental DO LAB BLOOD ORDERABLES Final Res ult [facility] [address] [address] Department [place] [address] * (ABNORMAL) Differential, auto (07/04/2021 8:31 PM HEATING MECHANIC) Neutrophil abs 4.4 1.7 - 6.5 K[facility] gran abs 0.1 0.0 - 0.1 K/cumm [facility] Lymphocyte abs 3.7(H) 0.8 - 3.3 K/cumm [facility] Monocyte abs 0.7 0.2 - 0.8 K/cumm [facility] Eosinophil abs 0.2 0.0 - 0.5 K/cumm [facility] Basophil abs 0.1 0.0 - 0.1 K/cumm [facility] Neutrophil pct 48.0 % [facility] Comment: Interpretive Data Percent cell count reference ranges are not reported, since discordance with absolute values may lead to misinterpretation of CBC data. Current Interpretive Data was last revised on 2017. Imm gran pct 1.2 % [facility] Comment: Interpretive Data Percent cell count reference ranges are not reported, since discordance with absolute values may lead to misinterpretation of CBC data. Current Interpretive Data was last revised on 2017. Lymphocyte pct 40.1 % [facility] Comment: Interpretive Data Percent cell count reference ranges are not reported, since discordance with absolute values may lead to misinterpretation of CBC data. Current Interpretive Data was last revised on 2017. Monocyte pct 7.8 % [facility] Comment: Interpretive Data Percent cell count reference ranges are not reported, since discordance with absolute values may lead to misinterpretation of CBC data. Current Interpretive Data was last revised on 2017. Eosinophil pct 2.4 % JOHANNY VALENCIA Comment: Interpretive Data Percent cell count reference ranges are not reported, since discordance with absolute values may lead to misinterpretation of CBC data. Current Interpretive Data was last revised on 2017. Basophil pct 0.5 % JOHANNY VALENCIA Comment: Interpretive Data Percent cell count reference ranges are not reported, since discordance with absolute values may lead to misinterpretation of CBC data. Current Interpretive Data was last revised on 2017. Blood 07/04/2021 8:31 PM HEATING MECHANIC 07/04/2021 8:40 PM HEATING MECHANIC us Fabien Simental DO LAB BLOOD ORDERABLES Final Res ult Performing Organization Address [facility] Co de Phone Number JOHANNY [address] [address] [place] [address] * Troponin T high-sensitivity series (baseline, 2hr, 4hr, 6hr) (07/04/2021 8:31 PM HEATING MECHANIC) Trop T hs 12 <=22 ng/L JOHANNY VALENCIA Comment: Interpretive Data For further hscTnT resources including the diagnostic algorithm and an aid in interpretation, copy and paste this link: https://nrl.testcatalog.org/show/hsTrop Current Interpretive Data last revised 2020. Blood 07/04/2021 8:31 PM HEATING MECHANIC 07/04/2021 8:40 PM HEATING MECHANIC us Fabien Simental DO LAB BLOOD ORDERABLES Edited Re sult - Final Performing Organization Address [facility] Co de Phone Number [facility] [address] [place] [address] * (ABNORMAL) Comprehensive metabolic panel (07/04/2021 8:31 PM HEATING MECHANIC) Sodium 137 135 - 145 mmol/L JOHANNY VALENCIA Potassium, pl 3.5 3.3 - 4.9 mmol/L CERNER CH Chloride 102 97 - 110 mmol/L [facility]ERNER CH CO2 21(L) 22 - 32 mmol/L [facility]ERNER CH Anion gap 14 2 - 15 mmol/L [facility]ERNER CH BUN 21 8 - 25 mg/dL [facility] Creatinine 0.99 0.80 - 1.30 mg/dL [facility] Glucose 193 70 - 199 mg/dL [facility]ER [facility] Comment: Interpretive Data Fasting glucose >/= 126 [...] interpretive data was last revised 2017. Calcium 9.2 8.5 - 10.3 mg/dL CERNER CH Bilirubin, total 0.2 0.1 - 1.2 mg/dL [facility] Protein, pl 7.5 6.5 - 8.5 g/dL [facility] Albumin 4.5 3.5 - 5.0 g/dL [facility] Alk phos 86 40 - 130 Units/L [facility]ERNER [facility] ALT 19 7 - 55 Units/L [facility]ERNER CH AST 30 10 - 50 Units/L [facility]ERNER CH Blood 07/04/2021 8:31 PM HEATING MECHANIC 07/04/2021 8:40 PM HEATING MECHANIC us Fabien Simental DO LAB BLOOD ORDERABLES Final Res ult [facility] [address] Department [place] [address] * (ABNORMAL) CBC with auto differential (07/04/2021 8:31 PM HEATING MECHANIC) WBC 9.2 3.8 - 9.9 K/cumm [facility] Hgb 13.8 13.0 - 17.5 g/dL CERNER CH Hct 44.7 38.9 - 50.3 % CERNER CH Plt 238 150 - 400 K/cumm [facility] MPV 10.2 9.1 - 12.3 fL [facility] RBC 5.00 4.30 - 5.80 M/cumm [facility] MCV 89.4 81.3 - 96.4 fL [facility] MCH 27.6 27.1 - 33.3 pg [facility] MCHC 30.9(L) 32.3 - 35.7 g/dL [facility] CH RDW CV 14.9 11.1 - 14.9 % [facility] RDW SD 49.1(H) 35.7 - 48.1 fL [facility] NRBC abs 0.00 0.00 - 0.01 K/cumm [facility] Blood 07/04/2021 8:31 PM HEATING MECHANIC 07/04/2021 8:40 PM HEATING MECHANIC Fabien Simental DO LAB BLOOD ORDERABLES Final Res ult Performing Organization Address City/[facility] Co de Phone Number JOHANNY [address] [address] Department [place] [address] * ECG 12 lead (07/04/2021 7:37 PM HEATING MECHANIC) 07/04/2021 7:37 PM HEATING MECHANIC Narrative [facility] - 07/05/2021 12:20 PM HEATING MECHANIC Vent Rate: 83 bpm RR Interval: 716 msec WA Interval: 188 msec QRS Duration: 122 msec QT Interval: 410 msec QTC Interval: 450 msec P-R-T Kirby: 30 - -73 - 28 degrees SINUS RHYTHM LEFT ANTERIOR FASCICULAR BLOCK ABNORMAL ECG No change from prior EKG Electronically Signed By: Yash Barton MD us Fabien Simental DO ECG ORDERABLES Final Result Performing Organization Address [facility] Co de Phone Number [facility] [employer] [facility] documented in this encounter Visit Diagnoses Diagnosis Syncope, unspecified syncope type- Primary documented in this encounter Care Teams General Labor Forklift Operator Relationship Specialty Start Date End Date Sergey Wilson MD PCP - General 09/20/16 documented as of this encounter
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
--- OUTSIDE RECORDS SUMMARY | 2024-05-24 02:06 | XMS_ITS | Encounter Summary ---
Author Organization [facility] Address [address] [place] [address] Phone Care Team Providers Care Hotel Supplies Salesperson Name Role Phone Sergey Wilson MD Primary Care Provider [phone] Reason for Visit * Reason Onset Date Comments Medication Increased 12/01/2020 Increased D epakote while in hospital Encounter Details Date Type Department Care Team (Late st Contact Info) Description 12/01/2020 Telephone [facility] Epilepsy [address] [facility] 6th [place] [address] [place] [address] Lilibeth Armstrong Medication Increased (Increased Depakote while in hospital ) Social History Tobacco Use Types Packs/Day Years Used Date Smoking Tobacco: Former Smokeless Tobacco: Never Alcohol Use Standard Drinks/Week Comments No 0 (1 standard drink = 0.6 oz pur e alcohol) Sex and Gender Information Value Date Recorded Sex Assigned at Not on file 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 Message sent to Dr. oJse * Telephone Encounter - Lilibeth Armstrong - 12/01/2020 1:07 PM CDT Patient called wanting Dr. Jose to know that when he was in the hospital, they increased his Depakote from 750 mg in PM to 1000 mg PM and AM. Patient stated Dr. Jose was decreasing this medication. Please call patient to discuss. Hospital records are in chart. documented in this encounter Plan of Treatment Not on file documented as of this encounter Visit Diagnoses Not on filedocumented in this encounter Care Teams Hotel Supplies Salesperson Relationship Specialty Start Date End Date Sergey Wilson MD PCP - General 09/20/16 documented as of this encounter
--- OUTSIDE RECORDS SUMMARY | 2024-05-24 02:06 | XMS_ITS | Encounter Summary ---
Author Organization [facility] Address [address] [place] [address] Care Team Providers Care Optician Apprentice Dispensing Name Role Phone Sergey Wilson MD Primary Care Provider [phone] Reason for Referral * Diagnostic Imaging (Routine) - Closed Specialty Diagnoses / Procedures Referred By Sarinaac t Referred To Contact Diagnoses Exertional dyspnea Procedures XR Chest Pa Lateral 2 Views Leno Larsen MD [address] [address] Phone: tel: fax: [address] [address] Referral ID Status Reason Start Date Expiration Date Visits Re quested Visits Authorized [id number] Closed 09/29/2020 10/29/2021 1 1 Reason for Visit * Diagnostic Imaging (Routine) - Closed Specialty Diagnoses / Procedures Referred By Kirby t Referred To Contact Diagnoses Exertional dyspnea Procedures XR Chest Pa Lateral 2 Views Leno Larsen MD [address] [address] Phone: tel: fax: [address] [address] Referral ID Status Reason Start Date Expiration Date Visits Re quested Visits Authorized [id number] Closed 09/29/2020 10/29/2021 1 1 Encounter Details Date Type Department Care Team (Latest Contact Info) Description 02/08/2021 12:09 PM CDT - 02/08/2021 11:59 PM CDT Hospital Encounter [facility] [address] [place] [address] Leno Larsen MD [address] [place] [address] Exertional dyspnea Discharge Disposition: Discharge to home or self care Social History Tobacco Use Types Packs/Day Years Used Date Smoking Tobacco: Former Smokeless Tobacco: Never Alcohol Use Standard Drinks/Week Comments No 0 (1 standard drink = 0.6 oz pur e alcohol) Sex and Gender Information Value Date Recorded Sex Assigned at Not on file 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 Gender Identity Not on file Sexual Orientation Not on file documented as of this encounter Medications at Time of Discharge aspirin 81 mg chewable tablet Take 1 tablet (81 mg total) by mouth daily citalopram (CeleXA) 40 mg tablet Take 1 tablet (40 mg total) by mouth every morning colchicine (COLCRYS) 0.6 mg tablet cyanocobalamin/f olic acid (vitamin K48-jksru acid) 2,500-400 mcg tablet,disintegr ating 05/14/1969 cyclobenzaprine [...] 1 tablet (50 mcg total) by mouth automotive services manager before breakfast montelukast (SINGULAIR) 10 mg tablet [...] mg total) by mouth daily before breakfast InnolightTOUCH ULTRA BLUE TEST STRIP strip USE TO TEST QD 0 09/13/2017 OmnidroneUCH ULTRA2 kit USE TO TEST QD 0 [...] Procedure Name Priority Date/Time Associated Diagnosis Comments XR CHEST PA LATERAL 2 VIEWS Schedule Routine, Read Routine (OP Routine) 02/08/2021 12:16 PM CDT Exertional dyspnea documented in this encounter Results * XR Chest Pa Lateral 2 Views (02/08/2021 12:16 PM CDT) Anatomical Region Laterality Modality Body, Chest N/A Computed Radiogr aphy 02/08/2021 2:23 PM CDT Impressions 02/08/2021 4:44 PM CDT Comparison is made to 08/29/2020. A loop recorder overlies the anterior chest wall. Heart size normal. Lungs are clear. No pleural effusion or pneumothorax. Dictated by: Joaquin Benjamin M.D. The radiology attending physician has personally reviewed this study, and had reviewed and/or edited this written report and agrees with it. Electronically signed by: Ben Macias M.D. Narrative 02/08/2021 4:44 PM CDT EXAMINATION: 2 view chest radiograph Procedure Note Ben Macias MD - 02/08/2021 EXAMINATION: 2 view chest radiograph IMPRESSION: Comparison is made to 08/29/2020. A loop recorder overlies the anterior chest wall. Heart size normal. Lungs are clear. No pleural effusion or pneumothorax. Dictated by: Joaquin Benjamin M.D. The radiology attending physician has personally reviewed this study, and had reviewed and/or edited this written report and agrees with it. Electronically signed by: Ben Macias M.D. Leno Larsen MD IMG XR PROCEDURES Final Result documented in this encounter Visit Diagnoses Diagnosis Exertional dyspnea Other dyspnea and respiratory abnormality documented in this encounter Care Teams Optician Apprentice Dispensing Relationship Specialty Start Date End Date Sergey Wilson MD PCP - General 09/20/16 documented as of this encounter
--- OUTSIDE RECORDS SUMMARY | 2024-05-24 02:06 | XMS_ITS | Encounter Summary ---
Author Organization [facility] Healthcare Address [address] [place] [address] Care Team Providers Care Combat Systems Officer Name Role Phone Sergey Wilson MD Primary Care Provider [phone] Reason for Visit * Neurology (Routine) - Closed Specialty Diagnoses / Procedures Referred By Contsofia t Referred To Contact Diagnoses Seizure-like activity (HCC) Procedures Continuous Video EEG -[facility] Clifton Jose MD PhD [address] [place] [address] Phone: tel: fax: [address] [address] Referral ID Status Reason Start Date Expiration Date Visits Re quested Visits Authorized [id number] Closed 08/15/2021 08/18/2022 1 1 Encounter Details Date Type Department Care Team (Latest Contact Info) Description 08/17/2021 8:00 AM CDT Ancillary Procedure [address] [id number] Jerod Silverman Seizure-like activity (CMS/HCC) (HCC) Social History Tobacco Use Types Packs/Day Years Used Date Smoking Tobacco: Former Smokeless Tobacco: Never Alcohol Use Standard Drinks/Week Comments No 0 (1 standard drink = 0.6 oz pur e alcohol) Sex and Gender Information Value Date Recorded Sex Assigned at Not on file 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 Gender Identity Not on file Sexual Orientation Not on file documented as of this encounter Progress Notes * Jerod Silverman - 08/17/2021 10:16 AM CDT 08/17/21 1016 Seizure Monitoring Unit Application Patient Identity Verified By Checking the patient's armband for name and date of Electrodes Scalp electrodes applied;No scalp breakdown noted Monitoring Video EEG monitoring started Explanation and Consent Shown camera and microphone;Family shown camera, patient unable to sign Seizure Monitoring Unit Maintenance Monitoring Video EEG monitoring continues documented in this encounter Plan of Treatment Not on file documented as of this encounter Procedures Procedure Name Priority Date/Time Associated Diagnosis Comments CONTINUOUS VIDEO EEG Routine 08/17/2021 10:15 AM CDT Seizure-like activity (CMS/HCC) (HCC) documented in this encounter Results * Continuous Video EEG -[facility] (08/17/2021 10:15 AM CDT) Anatomical Region Laterality Modality EEG Narrative 08/19/2021 4:49 PM CDT Video-EEG Report Patient Name: Dennis Branch [facility] Medical Record Number (MRN): [id number] [facility] Record: [id number] Date of (): 1965 EEG Date: 08/17/2021 Ordering Provider: Clifton Jose MD PhD CC: Sergey Wilson Start Time: 08/17/2021 10:03:30 AM ? End Time: 08/19/2021 2:40:08 PM Introduction: Mr. Branch is a 56 y.o. male with a history of anxiety, cardiac disease s/p pacer, epilepsy s/p AHC and NEE presents to the EMU for events characterization. His events were described as loss of consciousness with head dropping. He can fall, but typically does not hurt himself. Video-EEG was performed to characterize the events and guide subsequent treatment. This is a report of continuous video-EEG monitoring. High definition digital video and digital EEG were recorded continuously with a Futubra EEG acquisition system. This was a 32 channel EEG with additional anterior temporal electrodes. Electrodes were placed with collodion following the 10/20 International System. The patient was monitored and observed continuously by technical personnel. Digital seizure and spike detection were utilized during the recording. EEG Description: The awake background included a 10 Hz posterior rhythm which attenuated with eye opening and activity. During drowsiness, identified by ocular signs and alpha attenuation, there was intermittent, diffuse, asynchronous theta activity admixed with 2-4 Hz polymorphic frontotemporal delta activity. As the record progressed, stage II sleep was identified by vertex waves, sleep spindles and K-complexes. During the recording, there were changes consistent with light and deep sleep stages. There were infrequent delta and theta range activity over the right temporal region. There were rare right temporal sharp waves in day 2. The EKG showed a normal rate and rhythm. Daily Video-EEG Description: Epoch 1: 08/17/2021 10:03:30 AM to 08/18/2021 10:03:30 AM The interictal EEG was as described above. Event #1 occurred at 6:58 OM on 08/17/2021. Clinically the patient had witnessed head dropping and unresponsiveness. He was able to answer question and follow commands several minutes later. On rounds, he endorsed mild severity, feeling he did not completely lose awareness. There were no EEG changes with the event. Epoch 2: 08/18/2021 10:03:30 AM to 08/19/2021 10:03:30 AM The interictal EEG was as described above. Additionally, there were rare sharp waves over the right temporal region in this epoch (two epileptiform discharges in a 24 hours recording). There were two events recorded. Event #2 occurred at 1:35 PM on 08/18/2021. Clinically the patient had witnessed head dropping and unresponsiveness. He was able to answer question and follow commands quickly and reported he had chest/heart pain. There were no EEG changes with the event. Event #3 occurred at 6:22 PM on 08/18/2021. Clinically the patient had witnessed head dropping and unresponsiveness. He was able to answer question and follow commands several minutes later. There were no EEG changes with the event. ?? Epoch 3: 08/19/2021 10:03:30 AM to 08/19/2021 2:40:08 PM The interictal EEG was as described above. There were no clinical or electrographic events. Interpretation: Three typical clinical events were captured with no EEG correlate, which were clinically consistent with non-epileptic events. A fourth clinical event of chest pain was atypical and had no EEG or EKG correlate and self-resolved after only a few minutes. ?? The interictal was abnormal due to 1) two right temporal epileptiform discharges (after valproate was lowered from 1000 mg QAM 500 mg QPM to 500 mg QAM 250 mg QPM) and 2) right temporal slowing. Focal epileptiform discharges are typically seen in patients with a history of partial seizures. Focal slowing indicates focal cerebral dysfunction. A structural or physiological abnormality should be considered. By signing this report, the attending Electroencephalographer certifies that he/she personally reviewed the electrodiagnostics study and has edited this report to fully conform with his/her intent. Signing Attending: Clifton Jose MD PhD Clifton Jose MD PhD NEUROLOGY ORDERABLES Adeline l Result documented in this encounter Visit Diagnoses Diagnosis Seizure-like activity (HCC) documented in this encounter Care Teams Combat Systems Officer Relationship Specialty Start Date End Date Sergey Wilson MD PCP - General 09/20/16 documented as of this encounter
--- OUTSIDE RECORDS SUMMARY | 2024-05-24 02:06 | XMS_ITS | Encounter Summary ---
Author Organization [facility] Address [address] [place] [address] Phone Care Team Providers Care Tomato Paste Maker Name Role Phone Sergey Wilson MD Primary Care Provider [phone] Encounter Details Date Type Department Care Team (Late st Contact Info) Description 02/15/2022 Telephone [facility] Epilepsy [address] [facility] [address] [place] [address] [place] [address] Clifton Jose MD PhD [address] [place] [address] Social History Tobacco Use Types Packs/Day Years Used Date Smoking Tobacco: Former Smokeless Tobacco: Never Alcohol Use Standard Drinks/Week Comments No 0 (1 standard drink = 0.6 oz pur e alcohol) Sex and Gender Information Value Date Recorded Sex Assigned at Not on file 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 Jose's information and continue with plan at this time. * Telephone Encounter - Louise Mack RN - 02/15/2022 3:10 PM CDT ----- Message from Clifton Jose MD PhD sent at 02/15/2022 2:31 PM CDT ----- Please call the patient regarding his result. You can let him know that his labs were normal (AST 51 with ULN 50 is not significant). No change to plan. Jordan documented in this encounter Plan of Treatment Not on file documented as of this encounter Visit Diagnoses Not on filedocumented in this encounter Care Teams Tomato Paste Maker Relationship Specialty Start Date End Date Sergey Wilson MD PCP - General 09/20/16 documented as of this encounter
--- OUTSIDE RECORDS SUMMARY | 2024-05-24 02:06 | XMS_ITS | Encounter Summary ---
Author Organization [facility] Address [address] [place] [address] Phone Care Team Providers Care Assistant Customer Service Manager Name Role Phone Sergey Wilson MD Primary Care Provider [phone] Encounter Details Date Type Department Care Team (Late st Contact Info) Description 08/22/2021 Telephone [facility] Epilepsy [address] [facility] [address] [place] [address] [place] [address] Jackie Guerrero, PIERRE [address] [place] [address] Social History Tobacco Use Types Packs/Day Years Used Date Smoking Tobacco: Former Smokeless Tobacco: Never Alcohol Use Standard Drinks/Week Comments No 0 (1 standard drink = 0.6 oz pur e alcohol) Sex and Gender Information Value Date Recorded Sex Assigned at Not on file 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 Jose. -PIERRE Mejia documented in this encounter Plan of Treatment Not on file documented as of this encounter Visit Diagnoses Not on filedocumented in this encounter Care Teams Assistant Customer Service Manager Relationship Specialty Start Date End Date Sergey Wilson MD PCP - General 09/20/16 documented as of this encounter
--- OUTSIDE RECORDS SUMMARY | 2024-05-24 02:06 | XMS_ITS | Encounter Summary ---
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 Gender Identity Not on file Sexual Orientation [...] 0.6 mg tablet cyanocobalamin/f olic acid (vitamin Y89-jlfvz acid) 2,500-400 mcg tablet,disintegr ating 05/14/1969 cyclobenzaprine [...] 1 tablet (50 mcg total) by mouth transition manager before breakfast montelukast (SINGULAIR) 10 mg [...] mg total) by mouth daily before breakfast [employer]ality.clTOUCH ULTRA BLUE TEST STRIP strip USE TO TEST QD 0 09/13/2017 Schedule Savvy ULTRA2 kit USE TO TEST QD 0 [...] on filedocumented in this encounter Care Teams Wood Processing Worker Relationship Specialty Start Date End Date Sergey Wilson MD PCP - General 09/20/16 documented as of this encounter
--- OUTSIDE RECORDS SUMMARY | 2024-05-24 02:06 | XMS_ITS | Encounter Summary ---
Author Organization [facility] Address [address] [place] [address] Phone Care Team Providers Care Communications Representative Name Role Phone Sergey Wilson MD Primary Care Provider [phone] Encounter Details Date Type Department Care Team (Late st Contact Info) Description 01/05/2023 Telephone [facility] Epilepsy [address] [facility] 6[address] [place] [address] [place] [address] Clifton Jose MD PhD [address] [place] [address] Social History Tobacco Use Types Packs/Day Years Used Date Smoking Tobacco: Former Smokeless Tobacco: Never Alcohol Use Standard Drinks/Week Comments No 0 (1 standard drink = 0.6 oz pur e alcohol) Sex and Gender Information Value Date Recorded Sex Assigned at Not on file 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 Tucker, left and he has a new doctor. He reported thenew physician discontinue his flexeril and lasix. Patient reported that the new physician was rude and didn't know why he was seeing two neurologist. I asked the patient to address his concerns with the new provider's office. I informed him that Dr. Jose is an epileptologist and to reach out to his PCP if he needs a prescription for flexeril and lasix. documented in this encounter Plan of Treatment Not on file documented as of this encounter Visit Diagnoses Not on filedocumented in this encounter Care Teams Communications Representative Relationship Specialty Start Date End Date Sergey Wilson MD PCP - General 09/20/16 documented as of this encounter
--- OUTSIDE RECORDS SUMMARY | 2024-05-24 02:06 | XMS_ITS | Encounter Summary ---
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 EKG'sin the system. I discussed the following plan with the patient. 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 We discussed that those events did not have EEG correlate, which is consistent with non-epileptic events. I informed the patient that non-epileptic events have a psychological etiology and do not themselves respond to medications but require talking therapy for treatment. He has been talking with trusted family without resolution of his events. At this point, I am recommending that he follow through with professional talking therapy including cognitive behavioral therapy (CBT). A secondary goal of this admission was to see if we could lower antiseizure medication lower, so VPA was lowered from 1000/500 mg to 500/250 mg, and overnight two right temporal sharp waves were seen from the region of his prior seizures before epilepsy surgery. We discussed that epilepsy surgery is best thought of as turningseizures that don't respond to medications into seizures that do, and his medication regimen has kept him seizure free since surgery in 2013. Over multiple Video/EEG's since surgery, I do not recall ever seeing a return of right temporal sharps until last night. As such, I recommended that he increase VPA back to 1000/500 mg and continue TPM unchanged as well. He was agreeable. For better understanding of PNES (aka non-epileptic events/attacks/seizures, functional (dissociative) seizures, or pseudoseizures (old terminology)), I provided the following online resources: www.neurosymptoms.org (Symptoms tab, Functional (Dissociative) Seizures), www.nonepilepticattacks.info, and www.nonepilepticseizures.com. For finding a talk therapist in his region, he can talk with his PMD and check with his insurance for in-network providers, but I also provided www.[employer] which serves as a searchable database of talk therapists, which can be filtered by ZIP code, insurance, gender, problem, therapy, and more. Jackie Guerrero, Epilepsy HYDRO TECHNICIAN, and I wrote out the phone number and highlighted exactly what hewas supposed to say to his insurance company's Behavioral Health phone number to get CBT for PNES. Diagnosis: Chest pain Patient's second event (08/18/21) of the admission included complaints of 4/10 chest pain in the middle of his chest without chest wall tenderness. He denied any other symptoms. It lasted for a few minutes and then completely resolved. Video/EEG includes a 1-channel EKG and was reviewed with no significant EEG or EKG changes before, during, or after the event. A 12-lead EKG was also subsequently checked and did not show any new or explanatory findings. There was no EKG evidence for ischemia. There were no further similar episodes during the admission, and he reported feeling well on the day of discharge. Discharge AEDs: unchanged from prior to admission (lowered VPA at 500/250 mg associated with appearance of two right temporal sharps, no epileptic seizures) Discharge testing: none at this time, repeat Video/EEG may be required to characterize any persistent, worsening, or new events concerning for seizures Follow up with Dr. Jose as scheduled in 02/2022. Call as needed. * Clifton Jose MD PhD - 08/18/2021 1:46 PM CDT Video-EEG Daily Epoch Report Patient Name: Dennis Branch [facility] Medical Record Number (MRN): [id number] [facility] [place] Record: [id number] Date of (): 1965 Start Time: 08/17/2021 10:03:30 AM End Time: 08/18/2021 10:03:30 AM Introduction: Mr. Branch is a 56 y.o. male with a history of anxiety, cardiac disease s/p pacer, epilepsy s/p AHC and NEE presents to the EMU for events characterization. His events were described asloss of consciousness with head dropping. He can fall, but typically does not hurt himself. Video-EEG was performed to characterize the events and guide subsequent treatment. This is a report of continuous video-EEG monitoring. High definition digital video and digital EEG were recorded continuously with a [employer] EEG acquisition system. This was a 32 [...] over the right temporal region. There were no epileptiform abnormalities. The EKG showed a normal rate and rhythm. Daily Video-EEG Description: Epoch 1: 08/17/2021 10:03:30 AM to 08/18/2021 10:03:30 AM The interictal EEG was as described above. Event #1 occurred at 6:58 OM on 08/17/2021. Clinically thepatient had witnessed head dropping and unresponsiveness. He was able to answer question and followcommands several minutes later. On rounds, he endorsed mild severity, feeling he did not completelylose awareness. There were no EEG changes with the event. Interpretation: A partially typical clinical event was recorded, which did not have EEG changes to suggest epileptic seizure. The interictal was abnormal due to right temporal slowing. Focal slowing indicates focal cerebral dysfunction. A structural or physiological abnormality should be considered. These findings were discussed with the treating physicians. By signing this report, the attending Electroencephalographer certifies that he/she personally reviewed the electrodiagnostics study and has edited this report to fully conform with his/her intent. Signing Attending: Clifton Jose MD PhD * Jackie Guerrero NP - 08/18/2021 12:43 PM CDT Neurology Daily Progress Note Subjective Chief complaint of seizures. Interval History: There was an event of unresponsiveness noted by the nurse. vEEG ongoing. Current Facility-Administered Medications Medication Dose Route Frequency Provider Last Rate Last Admin ??? albuterol HFA (PROVENTIL HFA,VENTOLIN HFA,PROAIR HFA) 90 mcg/actuation inhaler 2 puff 2 puff inhalation Q4H PRN (RT) Jackie Guerrero NP ??? aspirin chewable tablet 81 mg 81 mg oral Daily Jackie Guerrero NP 81 mg at 08/18/21811 ??? budesonide-formoteroL (SYMBICORT) 160-4.5 mcg/actuation inhaler 2 puff 2 puff inhalation BID Clifton Jose MD PhD 2 puff at 08/18/21820 ??? citalopram (CeleXA) tablet 40 mg 40 mg oral QAM Jackie Guerrero NP 40 mg at 08/18/21811 ??? cyclobenzaprine (FLEXERIL) tablet 10 mg 10 mg oral BID Jackie Guerrero NP 10 mg at 08/18/21810 ??? dextrose (GLUTOSE) 40 % gel 15 g 15 g oral Q15 Min PRN Jackie Guerrero NP Or ??? dextrose (D10W) 10% bolus 250 mL 250 mL intravenous Q15 Min PRN Jackie Guerrero NP ??? diphenhydrAMINE (BENADRYL) tab/cap 25 mg 25 mg oral QID PRN Jackie Guerrero NP 25 mg at 08/18/21811 ??? divalproex ER (DEPAKOTE ER) 24 hour tablet 1,000 mg 1,000 mg oral Daily Jackie Guerrero NP 1,000 mg at 08/18/21811 ??? divalproex ER (DEPAKOTE ER) 24 hour tablet 500 mg 500 mg oral Nightly Jackie Guerrero NP 500 mg at 08/17/212057 ??? enalapril (VASOTEC) tablet 5 mg 5 mg oral Daily Jackie Guerrero NP 5 mg at 08/18/21810 ??? [START ON 08/21/2021] ergocalciferol (VITAMIN D) capsule 50,000 Units 50,000 Units oral Weekly Jackie Guerrero NP ??? fenofibrate nanocrystallized (TRICOR) tablet 145 mg 145 mg oral Daily Jackie Guerrero NP 145 mg at 08/18/21811 ??? fluticasone propionate (FLONASE) 50 mcg/actuation nasal spray 2 spray 2 spray each nostril Nightly Jackie Guerrero NP 2 spray at 08/17/212101 ??? furosemide (LASIX) tablet 40 mg 40 mg oral Daily Jackie Guerrero NP 40 mg at 08/18/21811 ??? glimepiride (AMARYL) tablet 2 mg 2 mg oral BID AC (bkfst, dinner) Jackie Guerrero NP ??? glucagon injection 1 mg 1 mg intramuscular Q30 Min PRN Jackie Guerrero NP ??? ibuprofen (ADVIL,MOTRIN) tablet 800 mg 800 mg oral BID PRN Jackie Guerrero NP ??? levothyroxine (SYNTHROID) tablet 50 mcg 50 mcg oral Daily - 0600 Jackie Guerrero NP 50 mcg at 08/18/21 0533 ??? montelukast (SINGULAIR) tablet 10 mg 10 mg oral Daily Jackie Guerrero NP 10 mg at 08/18/21811 ??? nortriptyline (PAMELOR) capsule 75 mg 75 mg oral BID Jackie Guerrero NP 75 mg at ??? omega-3 fatty acids (LOVAZA) capsule 2 capsule 2 capsule oral BID Jackie Guerrero NP 2 capsule at 08/18/21810 ??? pantoprazole DR (PROTONIX) extended release tablet 40 mg 40 mg oral Daily Jackie Guerrero NP 40 mg at 08/18/21811 ??? pioglitazone (ACTOS) tablet 30 mg 30 mg oral Daily Jackie Guerrero NP 30 mg at 08/18/21811 ??? rosuvastatin (CRESTOR) tablet 40 mg 40 mg oral Nightly Jackie Guerrero NP 40 mg at 08/17/212057 ??? sodium chloride 0.9% flush 0.5-20 mL 0.5-20 mL intra-catheter Q8H HUGO Jackie Guerrero NP 10 mL at 08/18/21 0816 ??? sodium chloride 0.9% flush 0.5-20 mL 0.5-20 mL intra-catheter PRN Jackie Guerrero NP ??? topiramate (TOPAMAX) tablet 200 mg 200 mg oral BID Jackie Guerrero NP 200 mg at 08/18/21811 ??? umeclidinium (INCRUSE ELLIPTA) 62.5 mcg/actuation inhaler 62.5 mcg 1 puff inhalation Daily (RT)Jackie Guerrero NP 62.5 mcg at 08/18/2130 Objective Vitals: 24hr Min/Max: Temp Min: 36.4 ??C (97.5 ??F) Max: 37 ??C (98.6 ??F) Pulse Min: 68 Max: 78 BP Min: 103/48 Max: 141/88 Resp Min: 16 Max: 18 SpO2 Min: 95 % Max: 98 % Most Recent: Vitals: 08/18/21 0851 BP: 141/88 Pulse: 76 Resp: 16 Temp: 36.4 ??C (97.5 ??F) SpO2: 98% Physical Exam Constitutional: Comfortable and mood appropriate. Neurologic: Mental status- Alert and oriented x 4. Language- Fluent speech. Follows commands. Cranial nerves II-XII- Extraocular movements full without nystagmus. Face is symmetric with normal strength. No dysarthria. Motor- strength is 5/5 throughout. No drift. Fine finger movements are good. Sensation- intact to light touch. Coordination- [id number] normal. . No intake/output data recorded. I/O this shift: In: 480 [P.O.:480] Out: - Lab/Radiology/Diagnostic Review: Recent Results (from the past 24 hour(s)) POCT glucose Collection Time: 08/17/21 5:18 PM Result Value Ref Range Glucose, POC 163 70 - 199 mg/dL POCT glucose Collection Time: 08/17/21 7:48 PM Result Value Ref Range Glucose, POC 197 70 - 199 mg/dL POCT glucose Collection Time: 08/18/21 8:00 AM Result Value Ref Range Glucose, POC 153 70 - 199 mg/dL Assessment/Plan Active Problems: Recurrent seizures (CMS/HCC) (HCC) This patient will be hooked up to vEEG. There will be suction, oxygen and seizure safety precautions as this patient is at risk for status. AEDs will be weaned as needed to provoke events. Provocative measures such as PS, sleep deprivation and biking will be preformed as needed. This patient will be a full code with a regular diet. This plan of care was discussed with the EMU team and the patient. The vEEG will be reviewed. Jackie Guerrero NP Cosigned by Clifton Jose MD PhD at 08/18/2021 5:01 PM CDT Associated attestation - Day, Clifton Ortega MD PhD - 08/18/2021 5:01 PM CDT I have seen and examined the patient on 08/18/21 in conjunction with the non- physician provider. The patient is a 56 YO M with a history of PNES and seizures. His epileptic seizures came under control after epilepsy surgery. He continues to have events of unclear etiology twice per week. I personally reviewed the Video/EEG tracing and video, which revealed an abnormal interictal study and two events with no EEG or EKG correlate. See separate report. 08/18/21 EKG showed normal sinus rhythm with LAFB and RBBB. These blocks have been seen on past EKG'sin the system. I discussed the following plan with the patient. Diagnosis: Spells R56.9 1. Video/EEG for characterization. One partially typical event was captured. Await full severity event. 2. Wean VPA from 1000 mg QAM and 500 mg QPM to 500 mg QAM and 250 mg QPM 3. Continue TPM unchanged Diagnosis: Chest pain Patient's second event included complaints of 4/10 chest pain in the middle of his chest without chest wall tenderness. He denied any other symptoms. It lasted for a few minutes and then completely resolved. Video/EEG includes a 1-channel EKG and was reviewed with no significant EEG or EKG changes before, during, or after the event. A 12-lead EKG was also subsequently checked and did not show anynew or explanatory findings. There was no EKG evidence for ischemia. If recurs, consider repeat EKGand troponins. * Keily Yancey RN - 08/17/2021 9:31 AM CDT [facility]MIL[facility] Initial Assessment Interview Note Information Obtained From: Patient (08/17/21929) Admission Source: non health care facility Impression: 56 year old male admitted for SEIZURES/ EEG video Plan Includes: DC home when medically cleared for discharge Primary Source of Transportation: Does the patient need discharge transport arranged?: No (family) (08/17/21930) Health Insurance Coverage: [facility] medicare Prescription Coverage: yes Pharmacy: [id number] - [place], [place] - [address] [facility] & Primary Care Provider: Sergey Wilson MD Prior to Admission: Primary Caregiver: Self Support System: Parent, Family members Support system contact info (name, phone, availablity): Rafa Branch (Brother) [facility] [phone] (H) [phone] (M Home Care Services: No Durable Medical Equipment: Cane (single prong) Living Arrangements: Alone Type of Residence: Apartment (08/17/21929) Potential discharge needs include: no needs identified at this time Dialysis: none Behavioral Health Services: Behavioral Health Services: No (08/17/21929) Patient expects to be Discharged to: Private residence, (08/17/21929) Additional Information: address and information verified with patient. Pt states family/friend willprovide transportation. Pt states he has medicare A/B as well. CM sent insurance information to team. Per Karolina, When a patient has a Medicare Advantage plan, in this case [facility] [employer], ittakes the place of their traditional Medicare plan. We can???t bill both plans. So since [facility] [employer] is active, that is the plan that will be billed. CM notified pt , pt verbalized understanding. Patient's Identified Problem/Goal Problem: Ensure acute medical needs are met and that patient has a safe discharge plan. Goal: Secure a discharge plan that patient/family are agreeable with and ensure patient has continuum of care. Case management will follow for discharge planning and send referrals as needed. Goals include: To assure continuity of care, To maximize coping skills, To assure patient is in a safe environment and To assure access to community resources. Plan includes: 1. Collaboration with patient, MD, direct care nurse, Tool Crib Supervisor, Nurse Coordinator and other members of the health care team to assure needed interventions completed. 2. Return patient to optimal level of self-care post discharge. 3. Gas Tender will follow for Discharge Planning - interventions as needed 4. Anticipated level of care at discharge 5. Planned Discharge Disposition Based on a comprehensive family assessment, assistance with instrumental activities of daily livingafter discharge will be provided by patient Through the course of our work I determined that the patient possesses the skill and ability to provide and monitor the care of the patient when he or she returns home. patient has the capacity to provide/monitor/arrange for the care of the patient. Finally, we determined that patient has the knowledge of available resources and that combining them with their existing resources will suffice to sustain and care for the patient when he or she returns home. The treatment team is aware of this information. All are in agreement with the aftercare plan. Keily Yancey RN documented in this encounter H&P Notes * Cesar Jackie Mccann, PIERRE - 08/17/2021 2:49 PM CDT History and Physical Subjective Patient is a 56 y.o. male with chief complaint of seizures. HPI: 56 YO male with a history of anxiety, asthma, diabetes type II , HTN, cardiac disease s/p pacer, epilepsy s/p AHC and NEE presents to the EMU for seizure localization. He is having events 1-2 per week. He will have a lOC. His head will drop. He can fall, but typically does not hurt himself. He reports his last seizure with an aura of epigastric rising was in 2012. Triggers for seizures are stress. His current AED is Depakote ER. He has no issues with medication compliance. He has recently went to [facility] ER for events of LOC. He is a clinic patient of Dr. GILLES Jose. Besides the spells,his overall health is unchanged. His sugars have been well controled on three oral agents. Relations hips with his family are going well. Dr. Jose's note is included for continuity of care: Date: 02/08/2021 ?? Provider: Clifton Jose MD PhD ?? Chief Complaint: Seizures ?? HPI Portions of this note were copied [...] patient underwent a right temporal lobectomy and AHMoshey Dr. Schneider on 05/02/13 with pathology showing [...] Video/EEG 05/10-05/12/16 (5th since epilepsy surgery) at [facility] without AED wean captured 7 typical events without EEG correlate, consistent with non-epileptic events (report personally reviewed). Video/EEG 07/23-07/26/17 at [facility] revealed episodes of unresponsiveness, head drop, [...] that led to the 04/2017 hospitalization at [facility]. ?? He was evaluated at [facility] 11/30/18 for staring events with [...] a syncopal episode 12/30/18. [facility] for another episode of syncope, [...] to get him in to do CBT. ?? 11/2019-12/2019 there were several falls and head [...] but later reported that they were stress-related. ?? Last visit, he reported being unsure if [...] note, he won some money in the [employer]. ?? Since last visit, 07/20-07/26/20 Video/EEG at [facility] revealed no seizures and three events [...] 08/2020 he fell from his chair at [employer] onto the floor, hit his head, was [...] us. Notesfrom that admission were scanned into [facility]. I reviewed the scanned notes. Patient passed out while trying to pass gas. His workup was unremarkable. It was not due to a low VPA level. VPA was 39.9 which is fine considering we are weaning his VPA. I recommend that he take 1000/750 mg. ?? Today he reports no seizures. He is [...] see how that goes. I showed him www.[employer] search engine on his phone and wrote down the 1st five female therapists I found around his ZIP code who took his insurance, treated adults, and performed CBT. We discussed that the proper treatment of NEKamlesh's to make them go away is CBT [...] A pacemaker/ defibrillator was placed by in [place], [place]. ?? He did not follow through with sleep clinic referral due to reported transportation issues. ?? He had post-op NPT 02/26/14 that revealed moderate, widespread deficits in language, verbal and visual anterograde memory, and executive function; compared to pre-op some improvements and some declines noted with an overall decrease in anxiety symptoms noted. (report personally reviewed). ?? Past Medical History: Diagnosis Date ??? Anxiety [...] (Added by TW Conv) ??? Seizures (CMS/HCC) ([facility]) Past Surgical History: Procedure Laterality Date ??? CARDIAC PACEMAKER PLACEMENT Pacemaker Placement - (Added by TW Conv) ??? UT CRANIOT W BONE FLAP FOR AMYGDALOHIPPOCAMPECTOMY Craniotomy For Amygdalohippocampectomy - (Added by TW Conv) HOME MEDICATIONS : albuterol HFA (PROVENTIL HFA,VENTOLIN HFA,PROAIR HFA) 90 mcg/actuation inhaler aspirin 81 mg chewable tablet cholecalciferol (VITAMIN D-3) 50,000 unit capsule citalopram (CeleXA) 40 mg tablet colchicine (COLCRYS) 0.6 mg tablet cyanocobalamin/folic acid (vitamin K72-wkigb acid) 2,500-400 mcg tablet,disintegrating cyclobenzaprine (FLEXERIL) 10 mg tablet divalproex ER (DEPAKOTE ER) 500 mg 24 hr tablet empagliflozin (JARDIANCE) 25 mg tablet enalapril (VASOTEC) 5 mg tablet fenofibrate (TRIGLIDE) 160 mg tablet fluticasone propion-salmeterol (ADVAIR DISKUS) 250-50 mcg/dose diskus inhaler fluticasone propionate (FLONASE) 50 mcg/actuation nasal spray furosemide (LASIX) 40 mg tablet glimepiride (AMARYL) 1 mg tablet ibuprofen (ADVIL,MOTRIN) 800 mg tablet icosapent ethyL (VASCEPA) 1 gram capsule levothyroxine (SYNTHROID) 50 mcg tablet montelukast (SINGULAIR) 10 mg tablet naproxen sodium 220 mg capsule nortriptyline (PAMELOR) 75 mg capsule omega-3 fatty acids (LOVAZA) 1 gram capsule omeprazole (PriLOSEC) 20 mg capsule ONETOUCH ULTRA BLUE TEST STRIP strip Digital FuelTOUCH ULTRA2 kit pioglitazone (ACTOS) 30 mg tablet rosuvastatin (CRESTOR) 40 mg tablet topiramate (TOPAMAX) 200 mg tablet umeclidinium (INCRUSE ELLIPTA) 62.5 mcg/actuation blister with device glimepiride (AMARYL) 1 mg tablet Current Facility-Administered Medications Medication Dose Route Frequency Provider Last Rate Last Admin ??? albuterol HFA (PROVENTIL HFA,VENTOLIN HFA,PROAIR HFA) 90 mcg/actuation inhaler 2 puff 2 puff inhalation Q4H PRN (RT) Jackie Guerrero NP ??? [START ON 08/18/2021] aspirin chewable tablet 81 mg 81 mg oral Daily Jackie Guerrero NP ??? [START ON 08/18/2021] citalopram (CeleXA) tablet 40 mg 40 mg oral QAM Jackie Guerrero NP ??? cyclobenzaprine (FLEXERIL) tablet 10 mg 10 mg oral BID Jackie Guerrero NP ??? [START ON 08/18/2021] divalproex ER (DEPAKOTE ER) 24 hour tablet 1,000 mg 1,000 mg oral Daily Jackie Guerrero NP ??? divalproex ER (DEPAKOTE ER) 24 hour tablet 500 mg 500 mg oral Nightly Jackie Guerrero NP ??? [START ON 08/21/2021] ergocalciferol (VITAMIN D) capsule 50,000 Units 50,000 Units oral Weekly Jackie Guerrero NP ??? fenofibrate nanocrystallized (TRICOR) tablet 145 mg 145 mg oral Daily Jackie Guerrero NP ??? fluticasone propionate (FLONASE) 50 mcg/actuation nasal spray 2 spray 2 spray each nostril Nightly Jackie Guerrero NP ??? [START ON 08/18/2021] furosemide (LASIX) tablet 40 mg 40 mg oral Daily Jackie Guerrero NP ??? glimepiride (AMARYL) tablet 2 mg 2 mg oral BID AC (bkfst, dinner) Jackie Guerrero NP ??? ibuprofen (ADVIL,MOTRIN) tablet 800 mg 800 mg oral BID PRN Jackie Guerrero NP ??? [START ON 08/18/2021] levothyroxine (SYNTHROID) tablet 50 mcg 50 mcg oral Daily - 0600 Jackie Guerrero NP ??? [START ON 08/18/2021] montelukast (SINGULAIR) tablet 10 mg 10 mg oral Daily Jackie Guerrero NP ??? nortriptyline (PAMELOR) capsule 75 mg 75 mg oral BID Jackie Guerrero NP ??? omega-3 fatty acids (LOVAZA) capsule 2 capsule 2 capsule oral BID Jackie Guerrero, PIERRE ??? [START ON 08/18/2021] pantoprazole DR (PROTONIX) extended release tablet 40 mg 40 mg oral Daily Jackie Guerrero NP ??? [START ON 08/18/2021] pioglitazone (ACTOS) tablet 30 mg 30 mg oral Daily Jackie Guerrero NP ??? rosuvastatin (CRESTOR) tablet 40 mg 40 mg oral Nightly Jackie Guerrero NP ??? sodium chloride 0.9% flush 0.5-20 mL 0.5-20 mL intra-catheter Q8H HUGO Jackie Guerrero NP ??? sodium chloride 0.9% flush 0.5-20 mL 0.5-20 mL intra-catheter PRN Jackie Guerrero NP ??? [START ON 08/18/2021] umeclidinium (INCRUSE ELLIPTA) 62.5 mcg/actuation inhaler 62.5 mcg 1 puff inhalation Daily (RT) Jackie Guerrero NP Allergies Allergen Reactions ??? Phenobarbital Unknown ??? Carbamazepine Flushing (skin) ??? Metformin Other (See comments) Social History Socioeconomic History ??? Marital status: Single Tobacco Use ??? Smoking status: Former Smoker ??? Smokeless tobacco: Never Used Substance and Sexual Activity ??? Alcohol use: No ??? Drug use: No Family History Problem Relation Age of Onset ??? Brain cancer Brother Brain tumor - (Added by TW Conv) ??? Diabetes Brother ??? Cancer Father ??? Diabetes Sister Review of Systems Neurological: Positive for seizures. All other systems reviewed and are negative. Objective Vitals: Arrival Vitals [08/17/21 0837] Temp 36.7 ??C (98.1 ??F) Pulse 68 Resp 18 BP 121/54 SpO2 99 % Temp src Oral Heart Rate Source Patient Position Sitting BP Location Left arm FiO2 (%) 24 hr Min/Max: Temp Min: 36.7 ??C (98.1 ??F) Max: 36.7 ??C (98.1 ??F) Pulse Min: 68 Max: 68 BP Min: 121/54 Max: 121/54 Resp Min: 18 Max: 18 SpO2 Min: 99 % Max: 99 % Most Recent : Vitals: 08/17/21 0837 BP: 121/54 Pulse: 68 Resp: 18 Temp: 36.7 ??C (98.1 ??F) SpO2: 99% Height: 177.8 cm (5' 10 ) Weight: 103.4 kg (228 lb) BMI (Calculated): 32.7 No intake/output data recorded. No intake/output data recorded. Physical Exam PHYSICAL General: Well developed, well nourished patient comfortable in no acute distress. HEENT: Normocephalic and atraumatic. No scleral icterus or conjunctival pallor. Mucous membranes moist. Oropharynx clear. Pulmonary: Nonlabored respirations. Lungs are clear to ascultation bilaterally. Cardiovascular: Regular rate and rhythm. Skin: Warm, well perfused; no apparent rashes or bruises. Constitutional: Comfortable and mood appropriate. Neurologic: Mental status- Alert and oriented x 4. Language- Fluent speech. Follows commands. Cranial nerves II-XII- Extraocular movements full without nystagmus. Face is symmetric with normal strength. No dysarthria. Motor- strength is 5/5 throughout. UE tremor at rest. Fine finger movements are good. Sensation- intact to light touch. Radiology Review: No results found. Assessment /Plan Active Problems: Recurrent seizures (CMS/HCC) (HCC) This patient is hooked up to vEEG. There will be suction, oxygen and seizure safety precautions as this patient is at risk for status. AEDs will be weaned as needed to provoke events. Provocative measures such as PS, sleep deprivation and biking will be preformed as needed. This patient will be a full code with a regular diet. This plan of care was discussed with the EMU team and the patient. ThevEEG will be reviewed. Jackie Guerrero NP Cosigned by Clifton Jose MD PhD at 08/17/2021 9:59 PM CDT Associated attestation - Clifton Jose MD PhD - 08/17/2021 9:59 PM CDT I have seen and examined the patient on 08/17/21 in conjunction with the non- physician provider. The patient is a 56 YO M with a history of PNES and seizures. His epileptic seizures came under control after epilepsy surgery. He continues to have events of unclear etiology twice per week. I discussed the following plan with the patient. Diagnosis: Spells R56.9 1. Video/EEG for characterization 2. Continue home AEDs for now documented in this encounter Miscellaneous Notes * Plan of Care - Keily Yancey RN - 08/19/2021 4:27 PM CDT Pt states he does not need [employer] assist, states he has found another ride and they will be herein 15 min. CM called and spoke w/ Kezia with [employer] to notify to cancel trip.. CM notified pt nurse, Letty. * Plan of Care - Letty Wong RN - 08/19/2021 10:06 AM CDT Goals: Clinical Goals for the Shift: remain safe during events Summary: Problem: Lack of Knowledge: Goal: Ability to state ways to decrease the risk of falls will improve Outcome: Progressing Problem: Safety: Goal: Will remain free from falls Outcome: Progressing Goal: Will remain free from injury from falls Outcome: Progressing Goal: Will remain free from falls and injury in home environment Outcome: Progressing Problem: Health Behavior: Goal: Understanding of discharge needs will improve Outcome: Progressing * Plan of Care - Katya Waldrop RN - 08/19/2021 2:44 AM CDT Goals: Problem: Lack of Knowledge: Goal: Ability to state ways to decrease the risk of falls will improve Outcome: Progressing Problem: Safety: Goal: Will remain free from falls Outcome: Progressing Problem: Safety: Goal: Will remain free from injury from falls Outcome: Progressing Clinical Goals for the Shift: maintain safety, remain safe during episodes Summary: * Plan of Care - Lizbeth Quintero RRT - 08/18/2021 4:51 PM CDT Patient was ordered on respiratory medications for COPD. Patient tolerated treatment without issue. Plan - Transition treatment to bedside per bronchodilator protocol because patient was able to demonstrate ability to self administer. * Hospital Course - Jackie Guerrero NP - 08/18/2021 1:08 PM CDT He was admitted under the care of . He was placed on seizure precautions and continuously monitored on Video EEG. His anti-epileptic medications were changed as necessary to try to capture herevents. Provocative procedures such as photic stimulation, hyperventilation, sleep deprivation, andphysical exhaustion from riding an exercise bike were used as necessary to try to capture her events . His typical clinical events _were/were not_ captured. See Video EEG report for details. He was discharged to home in stable condition. Discharge AEDs: __ Discharge testing: __ Follow-up: __ * Plan of Care - Letty Wong RN - 08/18/2021 9:38 AM CDT Goals: Clinical Goals for the Shift: Remain safe during events Summary: Problem: Lack of Knowledge: Goal: Ability to state ways to decrease the risk of falls will improve Outcome: Progressing Problem: Safety: Goal: Will remain free from falls Outcome: Progressing Goal: Will remain free from injury from falls Outcome: Progressing Goal: Will remain free from falls and injury in home environment Outcome: Progressing Problem: Health Behavior: Goal: Understanding of discharge needs will improve Outcome: Progressing * Plan of Care - Katya Waldrop RN - 08/18/2021 12:35 AM CDT Goals: Problem: Safety: Goal: Will remain free from falls Outcome: Progressing Problem: Safety: Goal: Will remain free from injury from falls Outcome: Progressing Clinical Goals for the Shift: maintain safety, remain safe during episodes Summary: * Plan of Care - Radha White RN - 08/17/2021 8:22 AM CDT Goals: Clinical Goals for the Shift: Monitor neurological status and vital signs; Safety; Elicit safe seizures Summary: documented in this encounter Plan of Treatment Not on file documented as of this encounter Procedures Procedure Name Priority Date/Time Associated Diagnosis Comments POCT GLUCOSE DEVICE Routine 08/19/2021 5 :31 PM CDT POCT GLUCOSE DEVICE Routine 08/19/2021 8 :01 AM CDT POCT GLUCOSE DEVICE Routine 08/18/2021 5 :37 PM CDT ECG 12-LEAD Routine 08/18/2021 1:04 PM CDT POCT GLUCOSE DEVICE Routine 08/18/2021 8 :00 AM CDT POCT GLUCOSE DEVICE Routine 08/17/2021 7 :48 PM CDT POCT GLUCOSE DEVICE Routine 08/17/2021 5 :18 PM CDT POCT GLUCOSE DEVICE Routine 08/17/2021 1 1:55 AM CDT POCT GLUCOSE DEVICE Routine 08/17/2021 8 :21 AM CDT documented in this encounter Results * (ABNORMAL) POCT glucose (08/19/2021 5:31 PM CDT) Glucose, POC 318(H) 70 - 199 mg/dL [facility] Blood 08/19/2021 5:31 PM CDT 08/19/2021 5:31 PM CDT Clifton Jose MD PhD LAB POCT ORDERABLES - DEV ICE Final Result Performing Organization Address City/[facility]/ZIP Co de Phone Number [facility] [place] [address] * POCT glucose (08/19/2021 8:01 AM CDT) Glucose, POC 160 70 - 199 mg/dL [facility] Glucose comment [address] [facility] Blood 08/19/2021 8:01 AM CDT 08/19/2021 8:01 AM CDT Clifton Jose MD PhD LAB POCT ORDERABLES - DEV ICE Final Result Performing Organization Address City/[facility]/ZIP Co de Phone Number [facility] [place] [address] * POCT glucose (08/18/2021 5:37 PM CDT) Glucose, POC 176 70 - 199 mg/dL [facility] Blood 08/18/2021 5:37 PM CDT 08/18/2021 5:37 PM CDT Clifton Jose MD PhD LAB POCT ORDERABLES - DEV ICE Final Result Performing Organization Address City/[facility]/ZIP Co de Phone Number [facility] [place] [address] * ECG 12 lead (08/18/2021 1:04 PM CDT) [facility] Signature Ventricular Rate EKG/Min 83 BPM [facility] Atrial Rate 83 BPM [facility] UT-Interval (MSEC) 202 ms [facility] QRS-Interval (MSEC) 120 ms [facility] QT-Interval (MSEC) 418 ms [facility] QTc 491 ms [facility] P Cody 60 degrees [facility] R Cody -74 degrees [facility] T Cody 48 degrees [facility] Diagnosis Normal sinus rhythm Right bundle branch block Left anterior fascicular block Bifascicular block Abnormal ECG When compared with ECG of 26-OCT-2014 10:17, Right bundle branch block is now Present Confirmed by VALENTIN GODINEZ M.D ([id number]) on 08/19/2021 1:32:51 PM [facility] 08/18/2021 1:04 PM CDT 08/19/2021 1:32 PM CDT us Jackie Guerrero HYDRO TECHNICIAN ECG ORDERABLES Final Res ult Performing Organization Address [facility] de Phone Number [facility] * POCT glucose (08/18/2021 8:00 AM CDT) Glucose, POC 153 70 - 199 mg/dL [facility] Blood 08/18/2021 8:00 AM CDT 08/18/2021 8:00 AM CDT us Clifton Jose MD PhD LAB POCT ORDERABLES - DEV ICE Final Result Performing Organization Address [facility] de Phone Number [facility] [place] [address] * POCT glucose (08/17/2021 7:48 PM CDT) Glucose, POC 197 70 - 199 mg/dL [facility] Blood 08/17/2021 7:48 PM CDT 08/17/2021 7:48 PM CDT Clifton Jose MD PhD LAB POCT ORDERABLES - DEV ICE Final Result Performing Organization Address City/[facility] Co de Phone Number [facility] [place] [address] * POCT glucose (08/17/2021 5:18 PM CDT) Glucose, POC 163 70 - 199 mg/dL [facility] Blood 08/17/2021 5:18 PM CDT 08/17/2021 5:18 PM CDT Clifton Jose MD PhD LAB POCT ORDERABLES - DEV ICE Final Result Performing Organization Address City/[facility]/[place] [address] * POCT glucose (08/17/2021 11:55 AM CDT) Glucose, POC 179 70 - 199 mg/dL [facility] Blood 08/17/2021 11:5 5 AM CDT 08/17/2021 11:55 AM CDT Clifton Jose MD PhD LAB POCT ORDERABLES - DEV ICE Final Result Performing Organization Address City/[facility]/ZIP Co de Phone Number [facility] [place] [address] * POCT glucose (08/17/2021 8:21 AM CDT) Glucose, POC 194 70 - 199 mg/dL [facility] Blood 08/17/2021 8:21 AM CDT 08/17/2021 8:21 AM CDT Clifton Jose MD PhD LAB POCT ORDERABLES - DEV ICE Final Result Performing Organization Address City/[facility]/ZIP Co de Phone Number [facility] [place] [address] documented in this encounter Visit Diagnoses Diagnosis Recurrent seizures (CMS/HCC) (HCC) Unspecified epilepsy without mention of intractable epilepsy documented in this encounter Administered Medications Inactive Administered Medications - up to 3 most recent administrations Medication Order MAR Action Action Date Dose Rate Site aspirin chewable tablet 81 mg 81 mg, oral, Daily, First dose on Sun08/18/21 at 0900 Given 08/19/2021 7:54 AM CDT 81 mg Given 08/18/2021 8:12 AM CDT 81 mg budesonide-formoteroL (SYMBICORT) 160-4.5 mcg/actuation inhaler 2 puff 2 puff, inhalation, 2 times daily (emergency response officer), First dose on Sun08/17/21 at 2000, I /authorizing provider attest that the patient meets the approved [facility] Use Criteria: Yes Given 08/17/2021 8:33 PM CDT 2 puffs budesonide-formoteroL (SYMBICORT) 160-4.5 mcg/actuation inhaler 2 puff 2 puff, inhalation, 2 times daily, First dose (after last modification) on Sun08/18/21 at 0900, I /authorizing provider attest that the patient meets the approved [facility] Use Criteria: Yes Given 08/19/2021 7:55 AM CDT 2 puffs Given 08/18/2021 8:21 AM CDT 2 puffs calcium carbonate (TUMS) chewable tablet 1,000 mg 1,000 mg (400 mg of elemental calcium), oral, 3 times daily PRN, heartburn, Starting on Sun08/18/21 at 1355 citalopram (CeleXA) tablet 40 mg 40 mg, oral, Every morning, First dose on Sun08/18/21 at 0900 Given 08/19/2021 7:53 AM CDT 40 mg Given 08/18/2021 8:12 AM CDT 40 mg cyclobenzaprine (FLEXERIL) tablet 10 mg 10 mg, oral, 2 times daily, First dose on Sun08/17/21 at 2100 Given 08/19/2021 7:53 AM CDT 10 mg Given 08/18/2021 8:43 PM CDT 10 mg Given 08/18/2021 8:11 AM CDT 10 mg dextrose (D10W) 10% bolus 250 mL 250 mL, intravenous, at 1,000 mL/hr, Administer over 15 Minutes, Every 15 min PRN, blood glucose less than 70 mg/dL and UNABLE to swallow/take PO glucose/juice., Starting on Sun08/17/21 at 1527, After treatment for hypoglycemia, recheck BG followed by treatment every 15 minutes until the BG is greater than 100 mg/dL. Then check BG 1 hour post treatment. If BG is less than 100 mg/dL, repeat Q15 minute BG checks and treatment. Call MD for each episode of hypoglycemia., Indications: hypoglycemic disorderIndications:hypoglycemic disorder dextrose (GLUTOSE) 40 % gel 15 g 15 g, oral, Every 15 min PRN, low blood sugar, blood glucose less than 70 mg/dL, Starting on Sun08/17/21 at 1527, If patient is alert and able to eat/drink, give 15 gm glucose or one juice (4 fluid ounces) NOT ORANGE JUICE. After treatment for hypoglycemia, recheck BG followed by treatment every 15 minutes until the BG is greater than 100 mg/dL. Then check BG 1 hour post-treatment. If BG is less than 100 mg/dL, repeat Q15 minute BG checks and treatment. Call MD for each episode of hypoglycemia. NURSE PRACTITIONER PHYSICIAN ASSISTANT STATES GLUTOSE-15 CONTAINS GLUCOSE 40% W/W (50% W/V), Indications: hypoglycemic disorderIndications:hypoglycemic disorder diphenhydrAMINE (BENADRYL) tab/cap 25 mg 25 mg, oral, 4 times daily PRN, itching, Starting on Sun08/17/21 at 1528 Given 08/18/2021 8:12 AM CDT 25 mg divalproex ER (DEPAKOTE ER) 24 hour tablet 1,000 mg 1,000 mg, oral, Daily, First dose on Sun08/18/21 at 0900, Do not crush, break, or open., Indications: epilepsyIndications:epilepsy Given 08/18/2021 8:12 AM CDT 1,000 mg divalproex ER (DEPAKOTE ER) 24 hour tablet 250 mg 250 mg, oral, Nightly, First dose (after last modification) on Sun08/18/21 at 2100, Do not crush, break, or open. Given 08/18/2021 8:43 PM CDT 250 mg divalproex ER (DEPAKOTE ER) 24 hour tablet 500 mg 500 mg, oral, Nightly, First dose on Sun08/17/21 at 2100, Do not crush, break, or open. Given 08/17/2021 8:58 PM CDT 500 mg divalproex ER (DEPAKOTE ER) 24 hour tablet 500 mg 500 mg, oral, Daily, First dose (after last modification) on Sun08/19/21 at 0900, Do not crush, break, or open., Indications: epilepsyIndications:epilepsy Given 08/19/2021 7:53 AM CDT 500 mg divalproex ER (DEPAKOTE ER) 24 hour tablet 500 mg 500 mg, oral, Once, On Sun08/19/21 at 1515, For 1 dose, Do not crush, break, or open. Given 08/19/2021 3:08 PM CDT 50 0 mg enalapril (VASOTEC) tablet 5 mg 5 mg, oral, Daily, First dose on Sun08/18/21 at 0900 Given 08/19/2021 7:53 AM CDT 5 mg Given 08/18/2021 8:11 AM CDT 5 mg ergocalciferol (VITAMIN D) capsule 50,000 Units 50,000 Units, oral, Weekly, First dose on Sun08/21/21 at 0900, Do not crush, break, or open. fenofibrate nanocrystallized (TRICOR) tablet 145 mg 145 mg, oral, Daily, First dose on Sun08/17/21 at 1200 Given 08/19/2021 7:54 AM CDT 145 mg Given 08/18/2021 8:12 AM CDT 145 mg fluticasone propionate (FLONASE) 50 mcg/actuation nasal spray 2 spray 2 spray, each nostril, Nightly, First dose on Sun08/17/21 at 2100 Given 08/18/2021 8:46 PM CDT 2 sprays Given 08/17/2021 9:02 PM CDT 2 sprays furosemide (LASIX) tablet 40 mg 40 mg, oral, Daily, First dose on Sun08/18/21 at 0900 Given 08/19/2021 7:53 AM CDT 40 mg Given 08/18/2021 8:12 AM CDT 40 mg glimepiride (AMARYL) tablet 2 mg 2 mg, oral, 2 times daily before meals (bkfst, dinner), First dose on Sun08/17/21 at 1730, Take with food Patient's home medication supply has been approved by the pharmacy. Medication can be administered to the patient, Indications: type 2 diabetes mellitusIndications:type 2 diabetes mellitus Given 08/18/2021 8:20 AM CDT 2 mg Given 08/17/2021 5:54 PM CDT 2 mg glimepiride (AMARYL) tablet 2 mg 2 mg, oral, 2 times daily before meals (bkfst, dinner), First dose (after last modification) on Sun08/18/21 at 1730, Take two tabs twice daily before lunch/dinner. Take with food Patient's home medication supply has been approved by the pharmacy. Medication can be administered to the patient, Indications: type 2 diabetes mellitusIndications:type 2 diabetes mellitus Given 08/19/2021 5:34 PM CDT 2 mg Given 08/19/2021 7:56 AM CDT 2 mg Given 08/18/2021 5:38 PM CDT 2 mg glucagon injection 1 mg 1 mg, intramuscular, Every 30 min PRN, low blood sugar, blood glucose less than 70 mg/dL AND no IV access AND unable to take PO glucose/juice., Starting on Sun08/17/21 at 1527, After Glucagon is administered, position patient on side if possible to avoid aspiration. Obtain IV access. Follow glucagon treatment with glucose treatment or IV dextrose. After treatment for hypoglycemia, recheck BG followed by treatment every 15 minutes until the BG is greater than 100 mg/dL. Then check BG 1 hour post treatment. If BG is less than 100 mg/dL, repeat Q15 minute BG checks and treatment. Call MD for each episode of hypoglycemia. Reconstitute 1 mg vial with 1 mL SWFI. Use immediately following reconstitution. levothyroxine (SYNTHROID) tablet 50 mcg 50 mcg, oral, Daily (early AM), First dose on Sun08/18/21 at 0600, Administer on an empty stomach, preferably 30 minutes before breakfast. Take 4 hours apart from antacids, iron and calcium products. Separate from tube feeds, if applicable. Given 08/19/2021 6:30 AM CDT 50 mcg Given 08/18/2021 5:33 AM CDT 50 mcg montelukast (SINGULAIR) tablet 10 mg 10 mg, oral, Daily, First dose on Sun08/18/21 at 0900 Given 08/19/2021 7:54 AM CDT 10 mg Given 08/18/2021 8:12 AM CDT 10 mg nortriptyline (PAMELOR) capsule 75 mg 75 mg, oral, 2 times daily, First dose (after last modification) on Sun08/17/21 at 2100 Given 08/19/2021 7:54 AM CDT 75 mg Given 08/18/2021 8:43 PM CDT 75 mg Given 08/18/2021 8:12 AM CDT 75 mg omega-3 fatty acids (LOVAZA) capsule 2 capsule 2 capsule, oral, 2 times daily, First dose on Sun08/17/21 at 2100 Given 08/19/2021 7:52 AM CDT 2 capsules Given 08/18/2021 8:43 PM CDT 2 capsules Given 08/18/2021 8:11 AM CDT [address] (PROTONIX) extended release tablet 40 mg 40 mg, oral, Daily, First dose on Sun08/18/21 at 0900, Do not crush, chew, cut, dissolve, open or otherwise manipulate tablet/capsule., Indications: Treatment of Non-Bleeding Gastric DisorderIndications:Treatment of Non-Bleeding Gastric Disorder Given 08/19/2021 7:53 AM CDT 40 mg Given 08/18/2021 8:12 AM CDT 40 mg pioglitazone (ACTOS) tablet 30 mg 30 mg, oral, Daily, First dose on Sun08/18/21 at 0900, Take with food, Indications: type 2 diabetes mellitusIndications:type 2 diabetes mellitus Given 08/19/2021 7:54 AM CDT 30 mg Given 08/18/2021 8:12 AM CDT 30 mg rosuvastatin (CRESTOR) tablet 40 mg 40 mg, oral, Nightly, First dose on Sun08/17/21 at 2100 Given 08/18/2021 8:43 PM CDT 40 mg Given 08/17/2021 8:58 PM CDT 40 mg sodium chloride 0.9% flush 0.5-20 mL 0.5-20 mL, intra-catheter, Every 8 hours scheduled, First dose on Sun08/17/21 at 0815, Flush volume based on line type and size. Given 08/19/2021 7:55 AM CDT 10 mL Given 08/18/2021 8:46 PM CDT 10 mL Given 08/18/2021 8:16 AM CDT 10 mL topiramate (TOPAMAX) tablet 200 mg 200 mg, oral, 2 times daily, First dose on Sun08/17/21 at 2100 Given 08/19/2021 7:53 AM CDT 200 mg Given 08/18/2021 8:43 PM CDT 200 mg Given 08/18/2021 8:12 AM CDT 200 mg umeclidinium (INCRUSE ELLIPTA) 62.5 mcg/actuation inhaler 62.5 mcg 62.5 mcg (1 puff), inhalation, Daily (emergency response officer), First dose on Sun08/18/21 at 0800 Given 08/18/2021 8:30 AM CDT 62.5 mcg umeclidinium (INCRUSE ELLIPTA) 62.5 mcg/actuation inhaler 62.5 mcg 62.5 mcg (1 puff), inhalation, Daily, First dose (after last modification) on Sun08/19/21 at 0900, RN TO ADMINISTER... Given 08/19/2021 8:02 AM CDT 62.5 mcg documented in this encounter Discontinued Medications Medication Sig Discontinue Reason Start Date End Da te glimepiride (AMARYL) 1 mg tablet TAKE 2 TABLETS BY MOUTH TWICE DAILY BEFORE MEALS Therapy completed 07/05/2021 08/17/2021 documented as of this encounter Historical Medications * This list may reflect changes made after this encounter. icosapent ethyL (VASCEPA) 1 gram capsule Take 2 capsules (2 g total) by mouth 2 (two) times a day cholecalciferol (VITAMIN D-3) 50,000 unit capsule Take 1 capsule (50,000 Units total) by mouth once a week sunday glimepiride (AMARYL) 1 mg tabletIndication s:type 2 diabetes mellitus Take 2 tablets (2 mg total) by mouth 2 (two) times a day before breakfast and dinner added in this encounter Active and Recently Administered Medications Times are shown in CDT. Scheduled Medication Order 08/17/2021 08/18/202108/1908/19/2021 aspirin chewable tablet 81 mg 81 mg, oral, Daily, First dose on Sun08/18/21 at 0900 0812 (Given - Provider: Letty Wong RN) 075 (Given - Provider: Letty Wong RN) budesonide-formoteroL (SYMBICORT) 160-4.5 mcg/actuation inhaler 2 puff (CANCELED) 2 puff, inhalation, 2 times daily (emergency response officer), First dose on Sun08/17/21 at 2000, I /authorizing provider attest that the patient meets the approved [facility] Use Criteria: Yes 2032 (Given - Provider: Hiral Dyer, JUSTUS) budesonide-formoteroL (SYMBICORT) 160-4.5 mcg/actuation inhaler 2 puff 2 puff, inhalation, 2 times daily, First dose (after last modification) on Sun08/18/21 at 0900, I /authorizing provider attest that the patient meets the approved [facility] Use Criteria: Yes 820 (Given - Provider: Letty Wong RN)2099 (Not Given - Provider: Katya Waldrop RN - Reason: Other) 075 (Given - Provider: Letty Wong RN) citalopram (CeleXA) tablet 40 mg 40 mg, oral, Every morning, First dose on Sun08/18/21 at 0900 0812 (Given - Provider: Letty Wong RN) 0753 (Given - Provider: Letty Wong RN) cyclobenzaprine (FLEXERIL) tablet 10 mg 10 mg, oral, 2 times daily, First dose on Sun08/17/21 at 2100 2057 (Given - Provider: Katya Waldrop, SYLVIA) 0811 (Given - Provider: Letty Wong, SYLVIA)2042 (Given - Provider: Katya Waldrop, SYLVIA) 0753 (Given - Provider: Letty Wong, SYLVIA) divalproex ER (DEPAKOTE ER) 24 hour tablet 1,000 mg (CANCELED) 1,000 mg, oral, Daily, First dose on Sun08/18/21 at 0900, Do not crush, break, or open., Indications: epilepsy 08 (Given - Provider: Letty Wong RN) divalproex ER (DEPAKOTE ER) 24 hour tablet 250 mg 250 mg, oral, Nightly, First dose (after last modification) on [place] 08/18/21 at 2100, Do not crush, break, or open. 2042 (Given - Provider: Katya Waldrop, RN) divalproex ER (DEPAKOTE ER) 24 hour tablet 500 mg (CANCELED) 500 mg, oral, Nightly, First dose on Sun08/17/21 at 2100, Do not crush, break, or open. 2057 (Given - Provider: Katya Waldrop, SYLVIA) divalproex ER (DEPAKOTE ER) 24 hour tablet 500 mg 500 mg, oral, Daily, First dose (after last modification) on Sun08/19/21 at 0900, Do not crush, break, or open., Indications: epilepsy 0753 (Given - Provider: Letty Wong RN) divalproex ER (DEPAKOTE ER) 24 hour tablet 500 mg (COMPLETED) 500 mg, oral, Once, On Sun08/19/21 at 1515, For 1 dose, Do not crush, break, or open. 1508 (Given - Provider: Letty Wong, SYLVIA) enalapril (VASOTEC) tablet 5 mg 5 mg, oral, Daily, First dose on [place] 08/18/21 at 0900 0811 (Given - Provider: Letty Wong RN) 0753 (Given - Provider: Letty Wong RN) ergocalciferol (VITAMIN D) capsule 50,000 Units 50,000 Units, oral, Weekly, First dose on Sun08/21/21 at 0900, Do not crush, break, or open. fenofibrate nanocrystallized (TRICOR) tablet 145 mg 145 mg, oral, Daily, First dose on Sun08/17/21 at 1200 1438 (Not Given - Provider: Radha White RN - Reason: Patient/family refused - Comment: Medication taken this am at home prior to admission) 0812 (Given - Provider: Letty Wong RN) 0754 (Given - Provider: Letty Wong RN) fluticasone propionate (FLONASE) 50 mcg/actuation nasal spray 2 spray 2 spray, each nostril, Nightly, First dose on Sun08/17/21 at 2100 2102 (Given - Provider: Katya Waldrop, SYLVIA) 2045 (Given - Provider: Katya Waldrop, SYLVIA) furosemide (LASIX) tablet 40 mg 40 mg, oral, Daily, First dose on Sun08/18/21 at 0900 0812 (Given - Provider: Letty Wong RN) 0753 (Given - Provider: Letty Wong RN) glimepiride (AMARYL) tablet 2 mg (CANCELED) 2 mg, oral, 2 times daily before meals (bkfst, dinner), First dose on Sun08/17/21 at 1730, Take with food Patient's home medication supply has been approved by the pharmacy. Medication can be administered to the patient, Indications: type 2 diabetes mellitus 1754 (Given - Provider: Radha White RN) 0820 (Given - Provider: Letty Wong RN) glimepiride (AMARYL) tablet 2 mg 2 mg, oral, 2 times daily before meals (bkfst, dinner), First dose (after last modification) on Sun08/18/21 at 1730, Take two tabs twice daily before lunch/dinner. Take with food Patient's home medication supply has been approved by the pharmacy. Medication can be administered to the patient, Indications: type 2 diabetes mellitus 1738 (Given - Provider: Letty Wong RN) 0756 (Given - Provider: Letty Wong RN)1734 (Given - Provider: Letty Wong RN) levothyroxine (SYNTHROID) tablet 50 mcg 50 mcg, oral, Daily (early AM), First dose on Sun08/18/21 at 0600, Administer on an empty stomach, preferably 30 minutes before breakfast. Take 4 hours apart from antacids, iron and calcium products. Separate from tube feeds, if applicable. 0533 (Given - Provider: Katya Waldrop RN) 0630 (Given - Provider: Katya Waldrop RN) montelukast (SINGULAIR) tablet 10 mg 10 mg, oral, Daily, First dose on Sun08/18/21 at 0900 08 (Given - Provider: Letty Wong RN) 075 (Given - Provider: Letty Wong RN) nortriptyline (PAMELOR) capsule 75 mg 75 mg, oral, 2 times daily, First dose (after last modification) on Sun08/17/21 at 2099 2057 (Given - Provider: Katya Waldrop RN) 08 (Given - Provider: Letty Wong RN)2042 (Given - Provider: Katya Waldrop, SYLVIA) 075 (Given - Provider: Letty Wong RN) omega-3 fatty acids (LOVAZA) capsule 2 capsule 2 capsule, oral, 2 times daily, First dose on Sun08/17/21 at 2099 2057 (Given - Provider: Katya Waldrop RN) 810 (Given - Provider: Letty Wong RN)2042 (Given - Provider: Katya Waldrop RN) 075 (Given - Provider: Letty Wong, SYLVIA) pantoprazole DR (PROTONIX) extended release tablet 40 mg 40 mg, oral, Daily, First dose on Sun08/18/21 at 0900, Do not crush, chew, cut, dissolve, open or otherwise manipulate tablet/capsule., Indications: Treatment of Non-Bleeding Gastric Disorder 811 (Given - Provider: Letty Wong RN) 752 (Given - Provider: Letty Wong RN) pioglitazone (ACTOS) tablet 30 mg 30 mg, oral, Daily, First dose on Sun08/18/21 at 0900, Take with food, Indications: type 2 diabetes mellitus 811 (Given - Provider: Letty Wong RN) 075 (Given - Provider: Letty Wong, SYLVIA) rosuvastatin (CRESTOR) tablet 40 mg 40 mg, oral, Nightly, First dose on Sun08/17/21 at 2099 2057 (Given - Provider: Katya Waldrop RN) 2042 (Given - Provider: Katya Waldrop, SYLVIA) sodium chloride 0.9% flush 0.5-20 mL 0.5-20 mL, intra-catheter, Every 8 hours scheduled, First dose on Sun08/17/21 at 0815, Flush volume based on line type and size. 0827 (Not Given - Provider: Radha White RN - Reason: Loss of IV access)1558 (Not Given - Provider: Radha White RN - Reason: Loss of IV access)2100 (Given - Provider: Katya Waldrop RN) 0816 (Given - Provider: Letty Wong RN)1623 (Not Given - Provider: Letty Wong RN - Reason: Other)2046 (Given - Provider: Katya Waldrop RN) 0755 (Given - Provider: Letty Wong RN)1407 (Not Given - Provider: Letty Wong RN - Reason: Other) topiramate (TOPAMAX) tablet 200 mg 200 mg, oral, 2 times daily, First dose on Sun08/17/21 at 2100 2058 (Given - Provider: Katya Waldrop RN) 0812 (Given - Provider: Letty Wong RN)2043 (Given - Provider: Katya Waldrop RN) 0753 (Given - Provider: Letty Wong RN) umeclidinium (INCRUSE ELLIPTA) 62.5 mcg/actuation inhaler 62.5 mcg (CANCELED) 62.5 mcg (1 puff), inhalation, Daily (emergency response officer), First dose on Sun08/18/21 at 0800 0830 (Given - Provider: Lizbeth Quintero, PACKING ATTENDANT) umeclidinium (INCRUSE ELLIPTA) 62.5 mcg/actuation inhaler 62.5 mcg 62.5 mcg (1 puff), inhalation, Daily, First dose (after last modification) on Sun08/19/21 at 0900, RN TO ADMINISTER... 0802 (Given - Provider: Letty Wong RN) PRN Medication Order 08/17/2021 08/18/2021 08/19/2021 albuterol HFA (PROVENTIL HFA,VENTOLIN HFA,PROAIR HFA) 90 mcg/actuation inhaler 2 puff 2 puff, inhalation, Every 4 hours PRN (emergency response officer), wheezing, shortness of breath, Starting on Sun08/17/21 at 1107 calcium carbonate (TUMS) chewable tablet 1,000 mg 1,000 mg (400 mg of elemental calcium), oral, 3 times daily PRN, heartburn, Starting on Sun08/18/21 at 1355 dextrose (D10W) 10% bolus 250 mL(Linked Group 1) 250 mL, intravenous, at 1,000 mL/hr, Administer over 15 Minutes, Every 15 min PRN, blood glucose less than 70 mg/dL and UNABLE to swallow/take PO glucose/juice., Starting on Sun08/17/21 at 1527, After treatment for hypoglycemia, recheck BG followed by treatment every 15 minutes until the BG is greater than 100 mg/dL. Then check BG 1 hour post treatment. If BG is less than 100 mg/dL, repeat Q15 minute BG checks and treatment. Call MD for each episode of hypoglycemia., Indications: hypoglycemic disorder dextrose (GLUTOSE) 40 % gel 15 g(Linked Group 1) 15 g, oral, Every 15 min PRN, low blood sugar, blood glucose less than 70 mg/dL, Starting on Sun08/17/21 at 1527, If patient is alert and able to eat/drink, give 15 gm glucose or one juice (4 fluid ounces) NOT ORANGE JUICE. After treatment for hypoglycemia, recheck BG followed by treatment every 15 minutes until the BG is greater than 100 mg/dL. Then check BG 1 hour post-treatment. If BG is less than 100 mg/dL, repeat Q15 minute BG checks and treatment. Call MD for each episode of hypoglycemia. NURSE PRACTITIONER PHYSICIAN ASSISTANT STATES GLUTOSE-15 CONTAINS GLUCOSE 40% W/W (50% W/V), Indications: hypoglycemic disorder diphenhydrAMINE (BENADRYL) tab/cap 25 mg 25 mg, oral, 4 times daily PRN, itching, Starting on Sun08/17/21 at 1528 0812 (Given - Provider: Letty Wong RN) glucagon injection 1 mg 1 mg, intramuscular, Every 30 min PRN, low blood sugar, blood glucose less than 70 mg/dL AND no IV access AND unable to take PO glucose/juice., Starting on Sun08/17/21 at 1527, After Glucagon is administered, position patient on side if possible to avoid aspiration. Obtain IV access. Follow glucagon treatment with glucose treatment or IV dextrose. After treatment for hypoglycemia, recheck BG followed by treatment every 15 minutes until the BG is greater than 100 mg/dL. Then check BG 1 hour post treatment. If BG is less than 100 mg/dL, repeat Q15 minute BG checks and treatment. Call MD for each episode of hypoglycemia. Reconstitute 1 mg vial with 1 mL SWFI. Use immediately following reconstitution. ibuprofen (ADVIL,MOTRIN) tablet 800 mg 800 mg, oral, 2 times daily PRN, 1st line for pain, Starting on Sun08/17/21 at 1119, for pain sodium chloride 0.9% flush 0.5-20 mL 0.5-20 mL, intra-catheter, As needed, line care, Starting on Sun08/17/21 at 0734, Flush volume based on line type and size. Flush before and after each use. Linked Groups Order Group 1: dextrose (GLUTOSE) 40 % gel 15 gJump to med 15 g, oral, Every 15 min PRN, low blood sugar, blood glucose less than 70 mg/dL, Starting on Sun08/17/21 at 1527, If patient is alert and able to eat/drink, give 15 gm glucose or one juice (4 fluid ounces) NOT ORANGE JUICE. After treatment for hypoglycemia, recheck BG followed by treatment every 15 minutes until the BG is greater than 100 mg/dL. Then check BG 1 hour post-treatment. If BG is less than 100 mg/dL, repeat Q15 minute BG checks and treatment. Call MD for each episode of hypoglycemia. NURSE PRACTITIONER PHYSICIAN ASSISTANT STATES GLUTOSE-15 CONTAINS GLUCOSE 40% W/W (50% W/V), Indications: hypoglycemic disorder Or dextrose (D10W) 10% bolus 250 mLJump to med 250 mL, intravenous, at 1,000 mL/hr, Administer over 15 Minutes, Every 15 min PRN, blood glucose less than 70 mg/dL and UNABLE to swallow/take PO glucose/juice., Starting on Sun08/17/21 at 1527, After treatment for hypoglycemia, recheck BG followed by treatment every 15 minutes until the BG is greater than 100 mg/dL. Then check BG 1 hour post treatment. If BG is less than 100 mg/dL, repeat Q15 minute BG checks and treatment. Call MD for each episode of hypoglycemia., Indications: hypoglycemic disorder documented in this encounter Orders Medications Ordered That Geo ht Not Have Been Administered Count Last Ordered Date First Ordered Date calcium carbonate (TUMS) swapna wable tablet 1,000 mg 1 08/18/2021 albuterol HFA (PROVENTIL HFA ,VENTOLIN HFA,PROAIR HFA) 90 mcg/actuation inhaler 2 puff 1 08/17/2021 cholecalciferol (VITAMIN D-3 ) capsule 50,000 Units 1 08/17/2021 dextrose (D10W) 10% bolus 250 mL 1 08/18/19 22 dextrose (GLUTOSE) 40 % gel 15 g 1 08/18/19 22 ergocalciferol (VITAMIN D) c apsule 50,000 Units 1 08/17/2021 glucagon injection 1 mg 1 08/17/2021 ibuprofen (ADVIL,MOTRIN) tablet 800 mg 1 NON FORMULARY (FOR INPATIENT USE) 1 022 nortriptyline (PAMELOR) capsule 75 mg 1 10/2021 sodium chloride 0.9% flush 0.5-20 mL 1 10/2021 Lab Orders Without Results Count Last Ordered D ate First Ordered Date POCT GLUCOSE DEVICE 2 08/19/2021 08/19/19 22 CORE MEASURES Count Last Ordered Date First Ord ered Date REASON FOR NO VTE PROPHYLAXIS AT ADMISSION 1 08/17/2021 documented in this encounter Care Teams Food And Beverage Assistant Relationship Specialty Start Date End Date Sergey Wilson MD PCP - General 09/20/16 documented as of this encounter
--- OUTSIDE RECORDS SUMMARY | 2024-05-24 02:06 | XMS_ITS | Encounter Summary ---
Author Organization [facility] Address [address] [place] [address] Phone Care Team Providers Care Digital Marketing Strategist Name Role Phone Sergey Wilson MD Primary Care Provider [phone] Reason for Referral * Diagnostic Imaging (Routine) - Closed Specialty Diagnoses / Procedures Referred By Contac t Referred To Contact Radiology Diagnoses Intractable episodic headache, unspecified headache type Procedures CT Angiogram Head W WO Contrast Clifton Jose MD PhD [address] [place] [address] Phone: tel: fax: [address] [address] Referral ID Status Reason Start Date Expiration Date Visits Re quested Visits Authorized [id number] Closed 10/03/2022 11/02/2023 1 1 Encounter Details Date Type Department Care Team (Late st Contact Info) Description 10/03/2022 9:00 AM CDT Office Visit [facility] Epilepsy [address] [facility] 6th [place] [address] [place] [address] Clifton Jose MD PhD [address] [place] [address] Partial symptomatic epilepsy with complex partial seizures, not intractable, without status epilepticus (CMS/HCC) (HCC) (Primary Dx); Nonepileptic episode (HCC); Intractable episodic headache, unspecified headache type Social History Tobacco Use Types Packs/Day Years Used Date Smoking Tobacco: Former Smokeless Tobacco: Never Tobacco Cessation:Counseling Given: Not Answered Alcohol Use Standard Drinks/Week Comments No 0 (1 standard drink = 0.6 oz pur e alcohol) Sex and Gender Information Value Date Recorded Sex Assigned at Not on file 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 Gender Identity Not on file Sexual Orientation Not on file documented as of this encounter Last Filed Vital Signs Vital Sign Reading Time Taken Comments Blood Pressure 110/70 10/03/2022 8:45 AM CDT Pulse 75 10/03/2022 8:45 AM CDT Temperature - - Respiratory Rate - - Oxygen Saturation - - Inhaled Oxygen Concentration - - Weight 105.7 kg (233 lb) 10/03/2022 8:45 AM CDT Height - - Body Mass Index 33.43 08/17/2021 7:30 AM CDT documented in this encounter Ordered Prescriptions Prescription Sig Dispense Quantity Refills Last Filled Start Date End Date topiramate (TOPAMAX) 200 mg tablet Take 1 tablet (200 mg total) by mouth 2 (two) times a day 180 tablet 3 10/03/2022 4 divalproex ER (DEPAKOTE ER) 500 mg 24 hr tablet Take 2 tablets (1,000 mg total) by mouth every morning AND 1 tablet (500 mg total) nightly. 270 tablet 3 10/03/2022 4 documented in this encounter Progress Notes * Clifton Jose MD PhD - 10/03/2022 9:00 AM CDT Name: Dennis Branch Date of : 1965 PCP: Sergey Wilson MD Date: 10/03/2022 Provider: Clifton Jose MD PhD Chief Complaint: Seizures HPI Portions of this note were copied forward from a prior encounter and updated to reflect the currentclinical condition. The EMR was personally reviewed and summarized as part of this note. The patient is a 57 YO RH M with a history of [...] Video/EEG 05/10-05/12/16 (5th since epilepsy surgery) at [facility] without AED wean captured 7 typical events without EEG correlate, consistent with non-epileptic events (report personally reviewed). Video/EEG 07/23-07/26/17 at [facility] revealed episodes of unresponsiveness, head drop, funny [...] that led to the 04/2017 hospitalization at [facility]. He has presented to ER's many times [...] adjusted to 200/300 mg. -07/20-07/26/20 Video/EEG at [facility] revealed no seizures and three events clinically [...] mg, which I okayed. I showed him www.[email or web address] search engine on his phoneand wrote down [...] epileptic seizures. I redirected him to his service girl for chest pain. -Video/EEG 08/17-08/19/21 at [facility] revealed three typical clinical events with no [...] Course. He was discharged on ASMs unchanged. In the past, he has been treated [...] A pacemaker/ defibrillator was placed by in [place], [place]. He did not follow through with sleep clinic referral due to reported transportation issues. He had post-op NPT 02/26/14 that revealed moderate, widespread deficits in language, verbal and visual anterograde memory, and executive function; compared to pre-op some improvements and some declines noted with an overall decrease in anxiety symptoms noted. (report personally reviewed). Interval History Last visit 02/15/22, he reported no epileptic seizures. He had had 2-3 interval loss of consciousness events entering the visit, which he attributed to stress, which was better than in the past. He moved out of his dangerous neighborhood into a house with his [...] and out and complaining of tinnitus while heshook off the symptoms. He had similar events during two [...] and Vitamin D, which were normal (AST 51 with ULN 50 is not significant) (reports personally reviewed) There have been no significant communications since last visit. Today he reports no epileptic seizures. He continues to have events of tingling on the top of his head. He also has pains in the back of his head on the left side and it sounds like ocean whooshing. He also has ringing in his right ear sometimes at the same time. The headache pains and whooshing seems to be worsening. It sometimes causes loss of consciousness. This has happened about 4- 5 times since 02/2022. I ordered a Head CTA (has PPM can't do MRI/A). He had an event in the office lasting 1-2 minutes of complaining of a loud sound in his left ear with initial retained responsiveness then became unresponsive and blinked repetitively. His head dropped a little. He maintained a seated posture throughout without significant loss of tone. I monitored his breathing, heart rate, and pulse during the most symptomatic portion of the event using my stethoscope and palpation of wrist pulse. Eventually he became responsive and followed commands but complained the noise was still loud in his ear. He denied head pain. After 5-10 minutes, the sound tapered. We looked back at events from his 07/2020 Video/EEG and found similar events recorded that were not seizures. He has not yet seen a counselor, feels he is doing well. We discussed that doing talking therapy might stop his events completely. He has the number of a female talk therapist he may want to use. He has hearing loss with hearingaids, and we discussed that if the Head CTA is normal, he might need to see an ENT to help with tinnitus. He reported that he should be getting his lottery winnings next week. He plans to buy a house. ALLERGIES Dennis is allergic to phenobarbital, carbamazepine, and metformin. Allergies Allergen Reactions Phenobarbital Unknown Carbamazepine Flushing (skin) Metformin Other (See comments) MEDICATIONS He has a current medication list which includes the following prescription(s): albuterol hfa, aspirin, cholecalciferol, citalopram, colchicine, vitamin b12- folic acid, cyclobenzaprine, empagliflozin,enalapril, ergocalciferol, fenofibrate, fluticasone propion-salmeterol, fluticasone propionate, furosemide, glimepiride, ibuprofen, icosapent ethyl, levothyroxine, meclizine, montelukast, naproxen sodium, nortriptyline, omega-3 fatty acids, omeprazole, onetouch ultra blue test strip, Solavistatouch ultra2 meter, pioglitazone, rosuvastatin, amoxicillin, divalproex er, topiramate, and umeclidinium. 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 The patient does not drive. ROS Our standard office review of systems form was both reviewed and confirmed with the patient. All ofthe pertinent positives and negatives were mentioned in the History of Presenting Illness and here:fatigue, headaches, stress, palpitation, dyspnea, somatic pains. All other systems were negative. Test Conclus Repeat presurgical workup: -Video EEG with Ictal SPECT at [facility] from 02/04/2013 to 02/10/2013 revealed four right temporal onset seizures, rare right temporal discharges, and right temporal slowing. The patient also had multiple events without EEG correlate, mostly epigastric rising/stomach pain sensations. -Brain PET on 02/25/2013 at [facility] revealed hypometabolism in the right temporal lobe and right fronto-parietal as well. -Brain MRI with seizure protocol at [facility] on 02/25/2013 revealed a small right hippocampus [...] a right temporal lobectomy. Past evaluations at [facility] revealed: -Brain MRI 04/27/08 at [facility] revealed right mesial temporal sclerosis and focal encephalomalacia and gliosis along the right lateral postcentral gyrus. -Video/EEG at [facility] 12/2008 with multiple episodes without EEG correlate [...] the same medications including VPA. -Video/EEG at [facility] 05/2008 revealed multiple typical auras consisting of a brief period of epigastricdiscomfort without alteration of awareness and no EEG correlate. The interictal EEG was abnormal due to right hemisphere slowing. Ictal and interictal SPECT were obtained during the recording, without identifying a seizure focus. He was injected for an episode of epigastric pain. Other studies: -Routine EEG at [facility] on 03/27/12 revealed no significant abnormalities. -Routine EEG on 05/15 at [facility]SH revealed normal EEG. -Routine EEG on at OSH revealed normal EEG. -Head CT without contrast on 03/21 at [facility]SH revealed reported encephalomalacia right sylvian fissure region. VITAL SIGNS Vitals BP 110/70 (BP Location: Right arm, Patient Position: Sitting) Pulse 75 Wt 105.7 kg (233 lb) BMI 33.43 kg/m?? Physical Exam General: The patient appeared well developed, well nourished, and well groomed. Extremities: No edema. Normal. Skin: Dark discolored patchy confluent areas along both shins with superimposed bruising and excoriations on the left campos. Neurological Exam: Mental Status: The patient was alert, awake, and oriented to person, place and time. The patient had fluent speech and followed commands. Attention was normal. Affect and mood were flat. The ISELA-D score was not done today. Cranial Nerves: Pupils were equal, round [...] There was no pronator drift. There was a mild bilateral postural hand tremor. There was no bradykinesia or myoclonus. Fine finger movements were normal and equal bilaterally. Sensation: The patient had normal sensations to light touch and double simultaneous stimulation. Coordination: Finger to nose testing and rapid alternating movements were normal. Gait: Posture was normal. Gait was normal. 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 During evaluations for his new spells, he was found to have EKG changes and established with a service girl. He is s/p pacemaker. He has a history of suicidal ideations and psychiatric admissions. He has been recommended to go to counseling and engage in talk therapy to treat non-epileptic events numerous times. 07/20-07/26/20 Video/EEG at [facility] revealed no seizures and three events clinically [...] on talking therapies. I have showed him www.[employer] search engine to find therapists around his ZIP code who took his insurance, treated adults, and performed CBT. We discussed that the proper treatment of NEE's to make them go away is CBT and other talking th erapies, so he should follow through. Video/EEG 08/17-08/19/21 at [facility] revealed three typical clinical events with no [...] He was discharged on ASMs un changed. Today he reports no epileptic seizures. He continues to have events of tingling on the top of his head. He also has pains in the back of his head on the left side and it sounds like ocean whooshing. He also has ringing in his right ear sometimes at the same time. The headache pains and whooshing seems to be worsening. It sometimes causes loss of consciousness. This has happened about 4- 5 times since 02/2022. I ordered a Head CTA (has PPM can't do MRI/A). He had an event in the office lasting 1-2 minutes of complaining of a loud sound in his left ear with initial retained responsiveness then became unresponsive and blinked repetitively. His head dropped a little. He maintained a seated posture throughout without significant loss of tone. I monitored his breathing, heart rate, and pulse during the most symptomatic portion of the event using my stethoscope and palpation of wrist pulse. Eventually he became responsive and followed commands but complained the noise was still loud in his ear. He denied head pain. After 5-10 minutes, the sound tapered. We looked back at events from his 07/2020 Video/EEG and found similar events recorded that were not seizures. He has not yet seen a counselor, feels he is doing well. We discussed that doing talking therapy might stop his events completely. He has the number of a female talk therapist he may want to use. He has hearing loss with hearingaids, and we discussed that if the Head CTA is normal, he might need to see an ENT to help with tinnitus. Plan 1. Head CTA for complaints of whooshing sounds in his left ear associated with head pains. 2. I advised him again today to follow through on talking therapies including CBT for non-epilepticevents. Resources have been provided multiple times. 3. Continue TPM 200 mg bid. 4. Continue VPA ER 1000/500 mg. 5. Prudent safety precautions apply for any events with loss of awareness including NEE's 6. F/U ~6 months. Call as needed. documented in this encounter Plan of Treatment Not on file documented as of this encounter Results * CT Angiogram Head [...] Electronically signed by: Brittany Sykes M.D., Ph.D. Clifton Jose MD PhD IMG CT PROCEDURES Final R esult documented in this encounter Visit Diagnoses Diagnosis Partial symptomatic epilepsy with complex partial seizures, not intractable, without status epilepticus (HCC)- Primary Nonepileptic episode (HCC) Intractable episodic headache, unspecified headache type Intractable episodic headache, unspecified headache type documented in this encounter Discontinued Medications Medication Sig Discontinue Reason Start Date End Da te divalproex ER (DEPAKOTE ER) 500 mg 24 hr tablet Take 2 tablets (1,000 mg total) by mouth every morning AND 1 tablet (500 mg total) nightly. Reorder 02/15/2022 10/03/2022 topiramate (TOPAMAX) 200 mg tablet Take 1 tablet (200 mg total) by mouth 2 (two) times a day Reorder 02/15/2022 10/03/2022 documented as of this encounter Care Teams Digital Marketing Strategist Relationship Specialty Start Date End Date Sergey Wilson MD PCP - General 09/20/16 documented as of this encounter
--- OUTSIDE RECORDS SUMMARY | 2024-05-24 02:06 | XMS_ITS | Encounter Summary ---
Author Organization [facility] Address [address] [place] [address] Phone Care Team Providers Care Mechanical Engineering Manager Name Role Phone Sergey Wilson MD Primary Care Provider [phone] Reason for Referral * Diagnostic Imaging (Routine) - Closed Specialty Diagnoses / Procedures Referred By Contac t Referred To Contact Diagnoses Exertional dyspnea Procedures XR Chest Pa Lateral 2 Views Leno Larsen MD [address] [facility] [address] [place] [address] Phone: tel: fax: [address] [phone] Referral ID Status Reason Start Date Expiration Date Visits Re quested Visits Authorized [id number] Closed 09/29/2020 10/29/2021 1 1 * Pulmonology (Routine) - Closed Specialty Diagnoses / Procedures Referred By Contsofia t Referred To Contact Pulmonology Diagnoses Exertional dyspnea Procedures Pulmonary Function Test -[facility] U Adult PFT Lab- CAM-8D; Spirometry, Spirometry with Bronchodilator, Oxygen Assessment Titration, ABG, DLCO, Lung Volumes; Pleth with Airway Resistance; Room Air ABG; Spirometry Leno Larsen MD [address] [facility] [place] [address] Phone: tel: fax: [facility] Pulmonary [address] [facility] [address] [place] [address] Phone: tel: fax: Referral ID Status Reason Start Date Expiration Date Visits Re quested Visits Authorized [id number] Closed 02/08/2021 10/29/2021 12 12 Encounter Details Date Type Department Care Team (Late st Contact Info) Description 09/29/2020 Orders Only 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 Gender Identity Not on file Sexual Orientation Not on file documented as of this encounter Plan of Treatment Not on file documented as of this encounter Results * XR Chest Pa [...] Larsen MD IMG XR PROCEDURES Final Result * Pulmonary Function Test - (02/08/2021 11:59 AM CDT) FVC PRE 3.92 L [facility] FVC %PRE PRED 90 % [facility] FVC POST 3.87 L [facility] FVC %POST PRED 89 % [facility] FEV1 PRE 3.24 L [facility] FEV1 %PRE PRED 95 % [facility] FEV1 POST 3.17 L [facility] FEV1 %POST PRED 93 % [facility] FEV1/FVC PRE 82.5 % [facility] FEV1/FVC POST 82.0 % [facility] FRC PL PRE 2.32 L [facility] FRC PL %PRE PRED 71 % [facility] RV PRE 1.75 L [facility] RV %PRE PRED 87 % [facility] TLC PRE 5.52 L [facility] TLC %PRE PRED 86 % [facility] DLCO PRE 27.9 ml/min/mmH g [facility] DLCO %PRE PRED 108 % [facility] FIO2 % 0.21 % [facility] PaO2 75.0 mmHg [facility] PaCO2 37.0 mmHg [facility] pH 7.40 [facility] A-aDO2 POC 28.0 mmHg [facility] METHGB % 0.6 % [facility] COHb POC 0.4 % [facility] HCO3 22.9 mEq/L [facility] Anatomical Region Laterality Modality PFT 02/08/2021 11:2 7 AM CDT Narrative 02/12/2021 12:43 PM CDT [facility] Division of Pulmonary & Critical Care Medicine [address] [place] [address]; [place]; [place], [place] ??[address]; [phone] Pulmonary Function Laboratory Pulmonary Stress Test Simple/Oxygen Assessment Patient: Dennis Branch Date: 02/08/2021 Physician: JONATHAN Ht: 67IN ?? Wt: [id number] Room: OP Internet Technology Manager: MARY : 1965 Diagnosis: ASTHMA, SINGER, ALLA [...] with the written final report. PFT performed at:->[facility] U Adult PFT Lab- CAM-8D Procedure:->Spirometry Procedure:->Spirometry with Bronchodilator Procedure:->Oxygen Assessment Titration Procedure:->ABG Procedure:->DLCO Procedure:->Lung Volumes Lung Volumes via:->Pleth with Airway Resistance ABG:->Room Air ABG DLCO:->Spirometry Leno Larsen MD PFT ORDERABLES Final Result documented in this encounter Visit Diagnoses Diagnosis Exertional dyspnea- Primary Other dyspnea and respiratory abnormality Exertional dyspnea Other dyspnea and respiratory abnormality Exertional dyspnea Other dyspnea and respiratory abnormality documented in this encounter Care Teams Mechanical Engineering Manager Relationship Specialty Start Date End Date Sergey Wilson MD PCP - General 09/20/16 documented as of this encounter
--- OUTSIDE RECORDS SUMMARY | 2024-05-24 02:06 | XMS_ITS | Encounter Summary ---
Author Organization [facility] Address [address] [place] [address] Care Team Providers Care Airport Control Operator Name Role Phone Sergey Wilson MD Primary Care Provider [phone] Encounter Details Date Type Department Care Team (Latest Contact Info) Description 07/15/2021 8:47 PM HEARING AIDE TECHNICIAN - 07/15/2021 11:59 PM HEARING AIDE TECHNICIAN Hospital Encounter [facility] Discharge Disposition: Discharge to home or self care Social History Tobacco Use Types Packs/Day Years Used Date Smoking Tobacco: Former Smokeless Tobacco: Never Alcohol Use Standard Drinks/Week Comments No 0 (1 standard drink = 0.6 oz pur e alcohol) Sex and Gender Information Value Date Recorded Sex Assigned at Not on file 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 Gender Identity Not on file Sexual Orientation Not on file documented as of this encounter Medications at Time of Discharge aspirin 81 mg chewable tablet Take 1 tablet (81 mg total) by mouth daily citalopram (CeleXA) 40 mg tablet Take 1 tablet (40 mg total) by mouth every morning colchicine (COLCRYS) 0.6 mg tablet cyanocobalamin/f olic acid (vitamin D69-egajf acid) 2,500-400 mcg tablet,disintegr ating 05/14/1969 cyclobenzaprine [...] (50 mcg total) by mouth early childhood aide classroom before breakfast montelukast (SINGULAIR) 10 mg tablet [...] on filedocumented in this encounter Care Teams Airport Control Operator Relationship Specialty Start Date End Date Sergey Wilson MD PCP - General 09/20/16 documented as of this encounter
--- OUTSIDE RECORDS SUMMARY | 2024-05-24 02:06 | XMS_ITS | Encounter Summary ---
Author Organization [facility] Healthcare Address [address] [place] [address] Care Team Providers Care Rug Receiving Clerk Name Role Phone Sergey Wilson MD Primary Care Provider [phone] Encounter Details Date Type Department Care Team (Late st Contact Info) Description 02/15/2022 11:10 AM CDT Lab [facility] Advanced Medicine [facility] ([facility]) [address] [place] [phone] High risk medication use Social History Tobacco Use Types Packs/Day Years Used Date Smoking Tobacco: Former Smokeless Tobacco: Never Alcohol Use Standard Drinks/Week Comments No 0 (1 standard drink = 0.6 oz pur e alcohol) Sex and Gender Information Value Date Recorded Sex Assigned at Not on file 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 Gender Identity Not on file Sexual Orientation Not on file documented as of this encounter Miscellaneous Notes * Result Encounter Note - Clifton Jose MD PhD - 02/15/2022 2:31 PM CDT Please call the patient regarding [...] 10:57 AM CDT High risk medication use DIFFERENTIAL AUTO Routine 02/15/2022 10: 57 AM CDT High risk medication use CBC WITH AUTO DIFFERENTIAL Routine 02/15/2022 10:57 AM CDT High risk medication use VITAMIN D 25 HYDROXY Routine 02/15/2022 10:57 AM CDT High risk medication use COMPREHENSIVE METABOLIC PANEL Routine 02/15/2022 10:57 AM CDT High risk medication use documented in this encounter Results * (ABNORMAL) eGFR (02/15/2022 10:57 AM CDT) [facility] eGFR 87(L) 90 - 130 mL/min/1. 73 [...] PhD LAB BLOOD ORDERABLES Adeline miller Result [facility] Department [place] [address] * Differential, auto (02/15/2022 10:57 AM CDT) Neutrophil abs 4.2 1.7 - 6.5 K/cumm [facility] Imm gran abs 0.1 0.0 - 0.1 K/cumm [facility] Lymphocyte abs 3.1 0.8 - 3.3 K/cumm [facility] Monocyte abs 0.6 0.2 - 0.8 K/cumm [facility] Eosinophil abs 0.2 0.0 - 0.5 K/cumm [facility] Basophil abs 0.0 0.0 - 0.1 K/cumm [facility] Neutrophil pct 50.9 % [facility] Comment: Interpretive Data Percent cell count reference ranges are not reported, since discordance with absolute values may lead to misinterpretation of CBC data. Current Interpretive Data was last revised on 2017. Imm gran pct 1.2 % [facility] Comment: Interpretive Data Percent cell count reference ranges are not reported, since discordance with absolute values may lead to misinterpretation of CBC data. Current Interpretive Data was last revised on 2017. Lymphocyte pct 38.0 % [facility] Comment: Interpretive Data Percent cell count reference ranges are not reported, since discordance with absolute values may lead to misinterpretation of CBC data. Current Interpretive Data was last revised on 2017. Monocyte pct 7.3 % [facility] Comment: Interpretive Data Percent cell count reference ranges are not reported, since discordance with absolute values may lead to misinterpretation of CBC data. Current Interpretive Data was last revised on 2017. Eosinophil pct 2.1 % [facility] Comment: Interpretive Data Percent cell count reference ranges are not reported, since discordance with absolute values may lead to misinterpretation of CBC data. Current Interpretive Data was last revised on 2017. Basophil pct 0.5 % [facility] Comment: Interpretive Data Percent cell count reference ranges are not reported, since discordance with absolute values may lead to misinterpretation of CBC data. Current Interpretive Data was last revised on 2017. Blood 02/15/2022 10:5 7 AM CDT 02/15/2022 11:23 AM CDT Clifton Jose MD PhD LAB BLOOD ORDERABLES Adeline l Result [facility] Department [place] [address] * CBC with auto differential (02/15/2022 10:57 AM CDT) WBC 8.2 3.8 - 9.9 K/cumm [facility] Hgb 14.1 13.0 - 17.5 g/dL [facility] Hct 43.4 38.9 - 50.3 % [facility] Plt 217 150 - 400 K/cumm [facility] MPV 9.8 9.1 - 12.3 fL [facility] RBC 4.66 4.30 - 5.80 M/cumm [facility] MCV 93.1 81.3 - 96.4 fL [facility] MCH 30.3 27.1 - 33.3 pg [facility] MCHC 32.5 32.3 - 35.7 g/dL [facility] RDW CV 13.5 11.1 - 14.9 % [facility] RDW SD 45.8 35.7 - 48.1 fL [facility] NRBC abs 0.00 0.00 - 0.01 K/cumm [facility] Blood 02/15/2022 10:5 7 AM CDT 02/15/2022 11:23 AM CDT Clifton Jose MD PhD LAB BLOOD ORDERABLES Adeline l Result Performing Organization Address [facility]/ZIP Co de Phone Number [facility] Department [place] [address] * (ABNORMAL) Comprehensive metabolic panel (02/15/2022 10:57 AM CDT) Sodium 139 135 - 145 mmol/L [facility] Potassium, pl 4.0 3.3 - 4.9 mmol/L [facility] Chloride 102 97 - 110 mmol/L [facility] CO2 26 22 - 32 mmol/L [facility] Anion gap 11 2 - 15 mmol/L [facility] BUN 22 8 - 25 mg/dL [facility] Creatinine 1.01 0.80 - 1.30 mg/dL [facility] Glucose 94 70 - 199 mg/dL [facility] Comment: Interpretive Data Fasting glucose >/= 126 [...] 2017. Calcium 9.8 8.5 - 10.3 mg/dL [facility] Bilirubin, total 0.4 0.1 - 1.2 mg/dL [facility] Protein, pl 7.4 6.5 - 8.5 g/dL [facility] Albumin 4.5 3.5 - 5.0 g/dL [facility] Alk phos 79 40 - 130 Units/L [facility] ALT 33 7 - 55 Units/L [facility] AST 51(H) 10 - 50 Units/L [facility] Blood 02/15/2022 10:5 7 AM CDT 02/15/2022 11:23 AM CDT us Clifton Jose MD PhD LAB BLOOD ORDERABLES Adeline l Result [facility] Department [place] [address] * Vitamin D 25 hydroxy (02/15/2022 10:57 AM CDT) Vitamin D 25-OH 48 30 - 80 ng/mL JOHANNY MARTINEZ Blood 02/15/2022 10:5 7 AM CDT 02/15/2022 11:23 AM CDT us Clifton Jose MD PhD LAB BLOOD ORDERABLES Adeline angela Result [facility] Department [place] [address] documented in this encounter Visit Diagnoses Diagnosis High risk medication use documented in this encounter Care Teams Rug Receiving Clerk Relationship Specialty Start Date End Date Sergey Wilson MD PCP - General 09/20/16 documented as of this encounter
--- OUTSIDE RECORDS SUMMARY | 2024-05-24 02:06 | XMS_ITS | Encounter Summary ---
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 Gender Identity Not on file Sexual Orientation [...] 0.6 mg tablet cyanocobalamin/f olic acid (vitamin L18-qpgkx acid) 2,500-400 mcg tablet,disintegr ating 05/14/1969 cyclobenzaprine [...] 1 tablet (50 mcg total) by mouth boat operator before breakfast montelukast (SINGULAIR) 10 mg [...] mg total) by mouth daily before breakfast [employer] ULTRA BLUE TEST STRIP strip USE TO TEST QD 0 09/13/2017 [employer] ULTRA2 kit USE TO TEST QD 0 [...] on filedocumented in this encounter Care Teams Angle Roll Operator Relationship Specialty Start Date End Date Sergey Wilson MD PCP - General 09/20/16 documented as of this encounter
--- OUTSIDE RECORDS SUMMARY | 2024-05-24 02:06 | XMS_ITS | Encounter Summary ---
Author Organization [facility] Address [address] [place] [address] Phone Care Team Providers Care Commercial Painter Name Role Phone Sergey Wilson MD Primary Care Provider [phone] Encounter Details Date Type Department Care Team (Late st Contact Info) Description 05/16/2023 9:00 AM WEIGHT REDUCING TECHNICIAN Office Visit [facility] Epilepsy [address] [facility] [address] [place] [address] [place] [address] Clifton Jose MD PhD [address] [place] [address] Epilepsy with partial complex seizures (HCC) (Primary Dx) Social History Tobacco Use Types Packs/Day Years Used Date Smoking Tobacco: Former Smokeless Tobacco: Never Tobacco Cessation:Counseling Given: Not Answered Alcohol Use Standard Drinks/Week Comments No 0 (1 standard drink = 0.6 oz pur e alcohol) Sex and Gender Information Value Date Recorded Sex Assigned at Not on file 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 WEIGHT REDUCING TECHNICIAN Gender Identity Not on file Sexual Orientation Not on file documented as of this encounter Last Filed Vital Signs Vital Sign Reading Time Taken Comments Blood Pressure 99/59 05/16/2023 8:44 AM WEIGHT REDUCING TECHNICIAN Pulse 84 05/16/2023 8:44 AM WEIGHT REDUCING TECHNICIAN Temperature - - Respiratory Rate - - Oxygen Saturation - - Inhaled Oxygen Concentration - - Weight 107 kg (236 lb) 05/16/2023 8:44 AM WEIGHT REDUCING TECHNICIAN Height 175.3 cm (5' 9 ) 05/16/2023 8:44 AM WEIGHT REDUCING TECHNICIAN Body Mass Index 34.85 05/16/2023 8:44 AM WEIGHT REDUCING TECHNICIAN documented in this encounter Ordered Prescriptions Prescription Sig Dispense Quantity Refills Last Filled Start Date End Date topiramate (TOPAMAX) 200 mg tablet Take 1 tablet (200 mg total) by mouth 2 (two) times a day 180 tablet 3 05/16/2023 4 divalproex ER (DEPAKOTE ER) 500 mg 24 hr tablet Take 2 tablets (1,000 mg total) by mouth every morning AND 1 tablet (500 mg total) nightly. 270 tablet 3 05/16/2023 4 documented in this encounter Progress Notes * Clifton Jose MD PhD - 05/16/2023 9:00 AM CST Name: Dennis Branch Date of : 1965 PCP: Sergey Wilson MD Date: 05/16/2023 Provider: Clifton Jose MD PhD Chief Complaint: [...] Video/EEG 05/10-05/12/16 (5th since epilepsy surgery) at [facility] without AED wean captured 7 typical events without EEG correlate, consistent with non-epileptic events (report personally reviewed). Video/EEG 07/23-07/26/17 at [facility] revealed episodes of unresponsiveness, head drop, funny [...] that led to the 04/2017 hospitalization at [facility]. He has presented to ER's many times [...] adjusted to 200/300 mg. -07/20-07/26/20 Video/EEG at [facility] revealed no seizures and three events clinically [...] mg, which I okayed. I showed him www.[email or web address] search engine on his phoneand wrote down [...] epileptic seizures. I redirected him to his karate black belt for chest pain. -Video/EEG 08/17-08/19/21 at [facility] revealed three typical clinical events with no [...] 50 is not significant) (reports personally reviewed) In the past, he has been treated [...] A pacemaker/ defibrillator was placed by in [place], [place]. He did not follow through with sleep clinic referral due to reported transportation issues. He had post-op NPT 02/26/14 that revealed moderate, widespread deficits in language, verbal and visual anterograde memory, and executive function; compared to pre-op some improvements and some declines noted with an overall decrease in anxiety symptoms noted. (report personally reviewed). Interval History Last visit 10/03/22, he reported no epileptic seizures. He continued [...] and followed commands but complained the noise wasstill loud in his ear. He denied head pain. After 5-10 minutes, the sound tapered. We looked back at events from his 07/2020 Video/EEG and found similar events recorded that were not seizures. He had not yet seen a counselor, felt he was doing well. We discussed that doing talking therapy might stophis events completely. He had the number of a female talk therapist he might want to use. He has hearing loss with hearing aids, and we discussed that if the Head CTA is normal, he might need to see an ENT to help with tinnitus. He reported that he should be getting his [employer] winnings next week. He planned to buy a house. Since last visit, the CTA did not show an aneusym to explain the whooshing sound in his ear. He should consider having his PMD refer him to ENT for further evaluation. He no longer sees Dr. Tucker. Today he reports no interval epileptic seizures. Occasionally he still has NEE's. He is not in counseling, feels he is doing okay. I encouraged him to try counseling to treat the NEE's. He still has the whooshing sounds sometimes. He has not seen an ENT. He is following with cardiology for episodesof chest pains and his pacemaker. He is still living with his brother Riley. He is starting to get money from the [employer]. He won't get food stamps anymore. He is having right foot pain related to bunions and swelling. He complains that his foot doctor is putting off taking off the bunions. His legis not swollen. He asked if I would take over nortriptyline that Dr. Tucker used to prescribe because Dr. Tucker's replacement reportedly discharged him from her clinic. As it is used for mood, I directed him to have his PMD take over refills on it and explained that I only manage seizures. ALLERGIES Dennis is allergic to phenobarbital, carbamazepine, and metformin. Allergies Allergen Reactions Phenobarbital Unknown Carbamazepine Flushing (skin) Metformin Other (See comments) MEDICATIONS He has a current medication list which includes the following prescription(s): acetaminophen-codeine, albuterol hfa, amoxicillin, aspirin, cefuroxime, cholecalciferol, citalopram, colchicine, lgbnujiu16-haqrz acid, cyclobenzaprine, divalproex er, empagliflozin, enalapril, ergocalciferol, fenofibrate, fluticasone propion-salmeterol, fluticasone propionate, furosemide, glimepiride, ibuprofen, icosapent ethyl, januvia, levothyroxine, meclizine, metoprolol, montelukast, naproxen sodium, nortriptyline, omega-3 fatty acids, omeprazole, [employer] ultra blue test strip, [employer] ultra2 meter, pioglitazone, rosuvastatin, topiramate, and umeclidinium. 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 The patient does not drive. ROS A review of systems was obtained. All of the pertinent positives and negatives were mentioned in the History of Presenting Illness. All other systems were negative. Test Conclus Repeat presurgical workup: -Video EEG with Ictal SPECT at [facility] from 02/04/2013 to 02/10/2013 revealed four right temporal onset seizures, rare right temporal discharges, and right temporal slowing. The patient also had multiple events without EEG correlate, mostly epigastric rising/stomach pain sensations. -Brain PET on 02/25/2013 at [facility] revealed hypometabolism in the right temporal lobe and right fronto-parietal as well. -Brain MRI with seizure protocol at [facility] on 02/25/2013 revealed a small right hippocampus [...] a right temporal lobectomy. Past evaluations at [facility] revealed: -Brain MRI 04/27/08 at [facility] revealed right mesial temporal sclerosis and focal encephalomalacia and gliosis along the right lateral postcentral gyrus. -Video/EEG at [facility] 12/2008 with multiple episodes without EEG correlate [...] the same medications including VPA. -Video/EEG at [facility] 05/2008 revealed multiple typical auras consisting of a brief period of epigastricdiscomfort without alteration of awareness and no EEG correlate. The interictal EEG was abnormal due to right hemisphere slowing. Ictal and interictal SPECT were obtained during the recording, without identifying a seizure focus. He was injected for an episode of epigastric pain. Other studies: -Routine EEG at [facility] on 03/27/12 revealed no significant abnormalities. -Routine EEG on 05/15 at OSH revealed normal EEG. -Routine EEG on at OSH revealed normal EEG. -Head CT without contrast on 03/21 at OSH revealed reported encephalomalacia right sylvian fissure region. VITAL SIGNS Vitals BP 99/59 (BP Location: Left arm, Patient Position: Sitting) Pulse 84 Ht 175.3 cm (5' 9 ) Wt 107 kg (236 lb) BMI 34.85 kg/m?? Physical Exam General: The patient appeared well developed, well nourished, and well groomed. Extremities: No edema. Normal except right foot swelling. Skin: Normal. Neurological Exam: Mental Status: The patient was alert, awake, and oriented to person, place and time. The patient had fluent speech and followed commands. Attention was normal. Affect and mood were okay. The ISELA-D score was not done today. [...] normal. Gait: Posture was normal. Gait was antalgic. Assessment The patient is a 58 YO [...] have EKG changes and established with a karate black belt. He is s/p pacemaker. He has a history of suicidal ideations and psychiatric admissions. He has been recommended to go to counseling and engage in talk therapy to treat non-epileptic events numerous times. 07/20-07/26/20 Video/EEG at [facility] revealed no seizures and three events clinically [...] on talking therapies. I have showed him www.[email or web address] search engine to find therapists around his ZIP code who took his insurance, treated adults, and performed CBT. We discussed that the proper treatment of NEE's to make them go away is CBT and other talking th erapies, so he should follow through. Video/EEG 08/17-08/19/21 at [facility] revealed three typical clinical events with no [...] He was discharged on ASMs un changed. Last visit, he reported that headache pains and whooshing seemed to be worsening. I ordered a Head CTA (has PPM can't do MRI/A). The CTA did not show an aneusym to explain the whooshing sound in his ear. He should consider having his PMD refer him to ENT for further evaluation. He no longer sees Dr. Tucker. Today he reports no interval epileptic seizures. Occasionally he still has NEE's. He is not in counseling, feels he is doing okay. I encouraged him to try counseling to treat the NEE's. He still has the whooshing sounds sometimes. He has not seen an ENT. He is following with cardiology for episodesof chest pains and his pacemaker. He is still living with his brother Riley. He is starting to get money from the [employer]. He won't get food stamps anymore. He is having right foot pain related to bunions and swelling. He complains that his foot doctor is putting off taking off the bunions. His legis not swollen. He asked if I would take over nortriptyline that Dr. Tucker used to prescribe because Dr. Tucker's replacement reportedly discharged him from her clinic. As it is used for mood, I directed him to have his PMD take over refills on it and explained that I only manage seizures. Plan 1. I advised him again today [...] 6. F/U ~6-9 months. Call as needed. HT REDUCING TECHNICIAN documented in this encounter Plan of Treatment [...] 1 tablet (500 mg total) nightly. Reorder 10/03/2022 05/16/2023 topiramate (TOPAMAX) 200 mg tablet Take 1 tablet (200 mg total) by mouth 2 (two) times a day Reorder 10/03/2022 05/16/2023 documented as of this encounter Historical Medications * This list may reflect changes made after this encounter. Januvia 50 mg tablet Take 1 tablet (50 mg total) by mouth every morning metoprolol (LOPRESSOR) 100 mg tablet cefuroxime (CEFTIN) 500 mg tablet Take 1 tablet twice a day by oral route for 7 days. acetaminophen-cod eine (TYLENOL with CODEINE #3) 300-30 mg per tablet 05/13/2023 added in this encounter Care Teams Commercial Painter Relationship Specialty Start Date End Date Sergey Wilson MD PCP - General 09/20/16 documented as of this encounter
--- OUTSIDE RECORDS SUMMARY | 2024-05-24 02:06 | XMS_ITS | Encounter Summary ---
Author Organization [facility] Healthcare Address [address] [place] [address] Care Team Providers Care Tax Manager Cpa Name Role Phone Sergey Wilson MD Primary Care Provider [phone] Encounter Details Date Type Department Care Team (Latest Contact Info) Description 07/04/2021 9:05 PM CRYSTAL GRINDER - 07/04/2021 11:59 PM CRYSTAL GRINDER Hospital Encounter [facility] Diagnostic Imaging [address] [place] [address] Discharge Disposition: Discharge to home or self care Social History Tobacco Use Types Packs/Day Years Used Date Smoking Tobacco: Former Smokeless Tobacco: Never Alcohol Use Standard Drinks/Week Comments No 0 (1 standard drink = 0.6 oz pur e alcohol) Sex and Gender Information Value Date Recorded Sex Assigned at Not on file 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 CRYSTAL GRINDER Gender Identity Not on file Sexual Orientation Not on file documented as of this encounter Medications at Time of Discharge aspirin 81 mg chewable tablet Take 1 tablet (81 mg total) by mouth daily citalopram (CeleXA) 40 mg tablet Take 1 tablet (40 mg total) by mouth every morning colchicine (COLCRYS) 0.6 mg tablet cyanocobalamin/f olic acid (vitamin R57-nalkl acid) 2,500-400 mcg tablet,disintegr ating 05/14/1969 cyclobenzaprine [...] 1 tablet (50 mcg total) by mouth supervisor assembly room before breakfast montelukast (SINGULAIR) 10 mg tablet [...] mg total) by mouth daily before breakfast [employer] ULTRA BLUE TEST STRIP strip USE TO TEST QD 0 09/13/2017 [employer] ULTRA2 kit USE TO TEST QD 0 [...] Priority Date/Time Associated Diagnosis Comments XR CHEST 1 VIEW ED 07/04/2021 9:15 PM CRYSTAL GRINDER documented in this encounter Results * XR Chest 1 Vw Portable (07/04/2021 9:15 PM CRYSTAL GRINDER) Anatomical Region Laterality Modality Body, Chest N/A Computed Radiogr aphy 07/04/2021 10:2 8 PM CRYSTAL GRINDER Impressions 07/04/2021 10:28 PM CRYSTAL GRINDER Negative study. Electronically signed by: Audrey Jackman M.D. Narrative 07/04/2021 10:28 PM CRYSTAL GRINDER EXAMINATION: XR CHEST 1 VIEW HISTORY: The [...] Simental DO IMG XR PROCEDURES Final Result documented in this encounter Visit Diagnoses Not on filedocumented in this encounter Care Teams Tax Manager Cpa Relationship Specialty Start Date End Date Sergey Wilson MD PCP - General 09/20/16 documented as of this encounter
--- OUTSIDE RECORDS SUMMARY | 2024-05-24 02:06 | XMS_ITS | Encounter Summary ---
Author Organization [facility] Healthcare Address [address] [place] [address] Care Team Providers Care Associate Dentist Name Role Phone Sergey Wilson MD Primary Care Provider [phone] Encounter Details Date Type Department Care Team (Latest Contact Info) Description 04/07/2021 7:28 PM SHIP UNLOADER - 04/07/2021 11:59 PM SHIP UNLOADER Hospital Encounter [facility] Discharge Disposition: Discharge to home or self care Social History Tobacco Use Types Packs/Day Years Used Date Smoking Tobacco: Former Smokeless Tobacco: Never Alcohol Use Standard Drinks/Week Comments No 0 (1 standard drink = 0.6 oz pur e alcohol) Sex and Gender Information Value Date Recorded Sex Assigned at Not on file 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 SHIP UNLOADER Gender Identity Not on file Sexual Orientation Not on file documented as of this encounter Medications at Time of Discharge aspirin 81 mg chewable tablet Take 1 tablet (81 mg total) by mouth daily citalopram (CeleXA) 40 mg tablet Take 1 tablet (40 mg total) by mouth every morning colchicine (COLCRYS) 0.6 mg tablet cyanocobalamin/f olic acid (vitamin V21-obkxi acid) 2,500-400 mcg tablet,disintegr ating 05/14/1969 cyclobenzaprine [...] 1 tablet (50 mcg total) by mouth precision agriculture technician before breakfast montelukast (SINGULAIR) 10 mg tablet [...] on filedocumented in this encounter Care Teams Associate Dentist Relationship Specialty Start Date End Date Sergey Wilson MD PCP - General 09/20/16 documented as of this encounter
--- OUTSIDE RECORDS SUMMARY | 2024-05-24 02:06 | XMS_ITS | Encounter Summary ---
Author Organization [facility] Address [address] [place] [address] Phone Care Team Providers Care Campaign Management Specialist Name Role Phone Sergey Wilson MD Primary Care Provider [phone] Reason for Referral * Neurology (Routine) - Closed Specialty Diagnoses / Procedures Referred By Kirby t Referred To Contact Diagnoses Seizure-like activity (HCC) Procedures Continuous Video EEG -[facility] Clifton Jose MD PhD [address] [place] [address] Phone: tel: fax: [address] [phone] Referral ID Status Reason Start Date Expiration Date Visits Re quested Visits Authorized [id number] Closed 08/15/2021 08/18/2022 1 1 UM TECHNICIAN Reason for Visit * Consultation (Routine) - Closed Specialty Diagnoses / Procedures Referred By Kirby t Referred To Contact Neurology Diagnoses Nonepileptic episode (HCC) Sergey Wilson MD Phone: tel: fax: [facility] (All Locations) Referral ID Status Reason Start Date Expiration Date V isits Requested Visits Authorized [id number] Closed Specialty Services Required 07/11/2021 08/10/2022 1 1 Encounter Details Date Type Department Care Team (Late st Contact Info) Description 07/19/2021 9:30 AM MUSEUM TECHNICIAN Office Visit [facility] Epilepsy [address] [place] [address] [place] [address] Clifton Jose MD PhD [address] [place] [address] Partial symptomatic epilepsy with complex partial seizures, not intractable, without status epilepticus (CMS/HCC) (HCC) (Primary Dx); Nonepileptic episode (CMS/HCC) (HCC); Seizure-like activity (CMS/HCC) (HCC) Social History Tobacco Use Types Packs/Day Years Used Date Smoking Tobacco: Former Smokeless Tobacco: Never Alcohol Use Standard Drinks/Week Comments No 0 (1 standard drink = 0.6 oz pur e alcohol) Sex and Gender Information Value Date Recorded Sex Assigned at Not on file 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 MUSEUM TECHNICIAN Gender Identity Not on file Sexual Orientation Not on file documented as of this encounter Last Filed Vital Signs Vital Sign Reading Time Taken Comments Blood Pressure 124/76 07/19/2021 8:53 AM MUSEUM TECHNICIAN Pulse 85 07/19/2021 8:53 AM MUSEUM TECHNICIAN Temperature - - Respiratory Rate - - Oxygen Saturation - - Inhaled Oxygen Concentration - - Weight 103.4 kg (228 lb) 07/19/2021 8:53 AM MUSEUM TECHNICIAN Height 177.8 cm (5' 10 ) 07/19/2021 8:53 AM MUSEUM TECHNICIAN Body Mass Index 32.71 07/19/2021 8:53 AM MUSEUM TECHNICIAN documented in this encounter Progress Notes * Clifton Jose MD PhD - 07/19/2021 9:30 AM CST Name: Dennis Branch Date of : 1965 PCP: Sergey Wilson MD Date: 07/19/2021 Provider: Clifton Jose MD PhD Chief Complaint: Seizures HPI Portions of this note were copied forward from a prior encounter and updated to reflect the currentclinical condition. The EMR was personally reviewed and summarized as part of this note. ?? The patient is a 56 YO RH [...] since epilepsy surgery) at [facility] without AED wean captured 7 typical events without EEG correlate, consistent with non-epileptic events (report personally reviewed). Video/EEG 07/23-07/26/17 at [facility] revealed episodes of unresponsiveness, head drop, [...] that led to the 04/2017 hospitalization at [facility]. ?? He was evaluated at [facility] 11/30/18 for staring events with unresponsiveness. They [...] was not working. He was in the [facility] for a syncopal episode 12/30/18. He[facility] in [facility] 03/22/19 for another episode of syncope, [...] his PMD to evaluate his malaise. ?? At the 11/11/19 visit, he reported that he missed a step walking up concrete [...] 300/400 mg now and call for further possible weaning. His brother Rafa agreed to get him [...] first event he thought was like a pre-epilepsy surgery seizure with staring and unresponsiveness, admitted these events were happening multiple times per month, but later reported that they were stress-related. 05/04/20, he reported being unsure if his interval events were seizures or not. They happened ~2-3 times per month. He had not been in counseling. He had a new breathing medication because of dyspneaon exertion. The new event differential included syncope due to a cardiopulmonary condition, seizures following TPM weaning, or PNES in the setting of not following through on counseling. 07/20-07/26/20 Video/EEG at [facility] revealed no seizures and three events [...] 08/2020 he fell from his chair at [employer] onto the floor, hit his head, was transported to the ER. Workup including Head CT was unremarkable. He saw an ENT 09/2020 who diagnosed exertional dyspnea, referred him to pulmonology. 11/2020 he had an event with staring, unable to hear, zoning out, then had 3 more. Doctors there increased VPA ER back to 1000 mg bid. He reached out to us. Notes from that admission were scanned into Epic. I reviewed the scanned notes. Patient passed out while trying to pass gas. His workup was unremarkable. It was not due to a low VPA level. VPA was 39.9 which is fine considering we are weaning his VPA. I recommend that he take 1000/750 mg. Last visit 02/08/21, he reported no seizures. He was still having episodes that have been going [...] see how that goes. I showed him [email or web address] search engine on his phone and wrote down the 1st five female therapistsI found around his ZIP code who took his insurance, treated adults, and performed CBT. We discussedthat the proper treatment of NEE's to make them go away is CBT and other talking therapies, so he should follow through. He has hip problems. He was taking Vitamin D 50,000 units weekly managed by his PMD. He complained of groin pain, and I referred him back to his PMD, in case he needed further testing or an examination for inguinal hernia. He had lost consciousness before possibly related to anasthma attack. Near the end of the interview, [...] movements in his hands in response. I observedno pallor or cyanosis. I listed to his heart and lungs during the event, which were normal. Palpation of pulses was normal. I allowed the event to pass. He complained of that ringing in his ears, butwas back to baseline quickly. We discussed that he had had a typical non-epileptic event that he needed talking therapy to treat. There have been no significant communications since last visit. Today he denies any events like his typical seizures. He does not think that he has any side effects from VPA or TPM. He reports continued event of ringing in his ears, staring, can hear but cannot respond, and loses awareness. This occurs 2-3 times every ~2 weeks, sometimes more. This happened again in public at [facility] last week, and then they sent to the ER, where his VPA level was reportedly low (cannot see that result), and the ER doctor told him to tell me that he was having a new kind of seizure. The patient himself thinks he has been having this kind of event since he started working with someone in [employer] about his [employer] winnings. He is not having to spend any money, and has been told that he will receive his money. He has not done talking therapies. He did not look into the therapists that I wrote down for him last time. He has a female friend who he talks to when he has an issue, says she is a good listener. He is having more bone/joint pains. We discussed that his current events are likely non-epileptic events that would likely benefit from talking therapies, and he thought that that was probably right but was not sure and preferred to come in for Video/EEG to make sure that these events that are sending him to the ER are not new epileptic seizures. I ordered the testing. He still has over 6 months worth of medication refills, so I did not refill his medications today. I will have him see me again in ~6 months. I redirected him to his scrap piler for chest pain. ?? In the past, he has been [...] A pacemaker/ defibrillator was placed by in [place], [place]. ?? He did not follow through with sleep clinic referral due to reported transportation issues. ?? He had post-op NPT 02/26/14 that revealed moderate, widespread deficits in language, verbal and visual anterograde memory, and executive function; compared to pre-op some improvements and some declines noted with an overall decrease in anxiety symptoms noted. (report personally reviewed). ALLERGIES Dennis is allergic to glimepiride, phenobarbital, carbamazepine, and metformin. Allergies Allergen Reactions ??? Glimepiride Unknown ??? Phenobarbital Unknown ??? Carbamazepine Flushing (skin) ??? Metformin Other (See comments) MEDICATIONS He has a current medication list which includes the following prescription(s): albuterol hfa, aspirin, citalopram, colchicine, vitamin [id number] acid, cyclobenzaprine, divalproex er, empagliflozin, enalapril, fenofibrate, fluticasone propion-salmeterol, fluticasone propionate, furosemide, glimepiride, ibuprofen, levothyroxine, montelukast, naproxen sodium, nortriptyline, omega-3 fatty acids, [...] mcg tablet Take 50 mcg by mouth cobol developer before breakfast ??? 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 The patient does not drive. ROS Our standard office review of systems form was both reviewed and confirmed with the patient. All ofthe pertinent positives and negatives were mentioned in the History of Presenting Illness and here:fatigue, vision changes, weakness, stress, chest pain, dyspnea, GI problems, somatic pains, skin problems. All other systems were negative. Test Conclus Repeat presurgical workup: -Video EEG with Ictal SPECT at [facility] from 02/04/2013 to 02/10/2013 revealed four right temporal onset seizures, rare right temporal discharges, and right temporal slowing. The patient also had multiple events without EEG correlate, mostly epigastric rising/stomach pain sensations. ? -Brain PET on 02/25/2013 at [facility] revealed hypometabolism in the right temporal lobe and right fronto-parietal as well. -Brain MRI with seizure protocol at [facility] on 02/25/2013 revealed a ??small right hippocampus [...] right temporal lobectomy. ?? Past evaluations at [facility] revealed: -Brain MRI 04/27/08 at [facility] revealed right mesial temporal sclerosis and focal encephalomalacia and gliosis along the right lateral postcentral gyrus. ?? -Video/EEG at [facility] 12/2008 with multiple episodes without EEG [...] including VPA. -Video/EEG at [facility] 05/2008 revealed multiple typical auras consisting of a brief period of epigastricdiscomfort without alteration of awareness and no EEG correlate. The interictal EEG was abnormal due to right hemisphere slowing. Ictal and interictal SPECT were obtained during the recording, without identifying a seizure focus. He was injected for an episode of epigastric pain. ?? Other studies: -Routine EEG at [facility] on 03/27/12 revealed no significant abnormalities. -Routine EEG on 05/15 at OSH revealed normal EEG. -Routine EEG on at OSH revealed normal EEG. -Head CT without contrast on 03/21 at OSH revealed reported encephalomalacia right sylvian fissure region. VITAL SIGNS Vitals BP 124/76 (BP Location: Right arm, Patient Position: Sitting) Pulse 85 Ht 177.8 cm (5' 10 ) Wt 103.4 kg (228 lb) BMI 32.71 kg/m?? Physical Exam General: The patient appeared well developed, well nourished, and well groomed. Extremities: No edema. Normal. Skin: Normal. Neurological Exam: Mental Status: The patient was alert, awake, and oriented to person, place and time. The patient had fluent speech and followed commands. Attention was normal. Affect and mood were normal. The ISELA-D score was completed yes/no and not scored by patient today. Cranial Nerves: Pupils were equal, round [...] was normal. Assessment The patient is a 56 YO [...] have EKG changes and established with a scrap piler. He is s/p pacemaker. He has a history of suicidal ideations and psychiatric admissions. He has been recommended to go to counseling and engage in talk therapy to treat non-epileptic events numerous times. 07/20-07/26/20 Video/EEG at [facility] revealed no seizures and three events clinically typical of his NEE's with no significant EEG or EKG correlate; the interictal EEG showed right temporal slowing. (report personally reviewed) Orthostatic BP's were normal. He was discharged on TPM lowered from 200/300 mg to 200 mg bid and VPA ER lowered from 1000 mg bid to 1000/500 mg. Last visit, he still had not followed through on talking therapies. I showed him [email or web address] search engine on his phone and wrote down the 1st five female therapists I found around his ZIP code who took his insurance, treated adults, and performed CBT. We discussed that the proper treatment of NEE's to make them go away is CBT and other talking therapies, so he should follow through. Today he denies any events like his typical seizures. He does not think that he has any side effects from VPA or TPM. He reports continued event of ringing in his ears, staring, can hear but cannot respond, and loses awareness. This occcurs 2-3 times every ~2 weeks, sometimes more. This happened again in public at [facility] last week, and then they sent to the ER, where his VPA level was reportedlylow (cannot see that result), and the ER doctor told him to tell me that he was having a new kindof seizure. The patient himself thinks he has been having this kind of event since he started working with someone in [employer] about his [email or web address] winnings. He has not done talking therapies. He did not lookinto the therapists that I wrote down for him last time. He has a female friend who he talks to when he has an issue, says she is a good listener. We discussed that his current events are likely non-epileptic events that would likely benefit from talking therapies, and he thought that that was probably right but was not sure and preferred to come in for Video/EEG to make sure that these events that are sending him to the ER are not new epileptic seizures. I ordered the testing. He still has over 6 months worth of medication refills, so I did not refill his medications today. I will have him see me again in ~6 months. I redirected him to his scrap piler for chest pain. Plan 1. Video/EEG for characterization of current events with ear ringing and loss of awareness to guidetreatment. 2. He has been advised tf follow through on talking therapies including CBT for non-epileptic events. Resources provided. 3. Continue TPM 200 mg bid. 4. Continue VPA ER 1000/500 mg. 5. Prudent safety precautions apply for any events with loss of awareness including NEE's 6. F/U ~6 months. Call as needed. UM TECHNICIAN documented in this encounter Plan of Treatment Not on file documented as of this encounter Results * Continuous Video EEG -[facility] (08/17/2021 10:15 AM CDT) Anatomical Region Laterality Modality EEG Narrative 08/19/2021 4:49 PM CDT Video-EEG Report Patient Name: Dennis Branch [facility] Medical Record Number (MRN): [id number] [place] Record: [id number] Date of (): 1965 EEG Date: 08/17/2021 [...] digital EEG were recorded continuously with a [employer] EEG acquisition system. This was a 31 [...] status epilepticus (HCC)- Primary Nonepileptic episode (HCC) Seizure-like activity (HCC) Seizure-like activity (HCC) documented in this encounter Discontinued Medications Medication Sig Discontinue Reason Start Date End Da te albuterol (PROVENTIL,VENTOLIN) 1.25 mg/3 mL nebulizer solution Take 1.25 mg by nebulization every 6 (six) hours as needed for wheezing or shortness of breath 07/19/2021 bisacodyl EC (DULCOLAX EC) 5 mg EC tablet Laxative (bisacodyl) 5 mg tablet TAKE ALL 6 TABLETS BY MOUTH AT 8 AM ON 01-24-21 07/19/2021 lidocaine (LIDODERM) 5 % Place 1 patch on the skin daily 09/25/2020 07/19/2021 traMADol (ULTRAM) 50 mg tablet Take 50 mg by mouth every 6 (six) hours as needed for pain 07/19/2021 documented as of this encounter Historical Medications * This list may reflect changes made after this encounter. glimepiride (AMARYL) 1 mg tablet TAKE 2 TABLETS BY MOUTH TWICE DAILY BEFORE MEALS 07/05/2021 08/17/2021 added in this encounter Orders Outpatient Referral Count Last Ordered Date Fir st Ordered Date AMB REFERRAL TO NEUROLOGY 1 07/19/2021 documented in this encounter Care Teams Campaign Management Specialist Relationship Specialty Start Date End Date Sergey Wilson MD PCP - General 09/20/16 documented as of this encounter
--- OUTSIDE RECORDS SUMMARY | 2024-05-24 02:07 | XMS_ITS | Encounter Summary ---
Author Organization [facility] Healthcare Address [address] [place] [address] Care Team Providers Care Hog Cooler Name Role Phone Sergey Wilson MD Primary Care Provider [phone] Reason for Visit * Reason Comments Seizures Numerous 'Focal' epi lieptic like episodes in the last few hours. Encounter Details Date Type Department Care Team (Late st Contact Info) Description 08/29/2020 6:03 PM CDT - 08/29/2020 8:53 PM CDT Emergency [facility] Emergency Department [address] [place] [address] Zahida Simpson MD [address] [place], [place] [id number] [place] [address] Seizure (CMS/HCC) (Primary Dx); Syncope, unspecified syncope type Discharge Disposition: Left Against Medical Advice Social History Tobacco Use Types Packs/Day Years Used Date Smoking Tobacco: Former Smokeless Tobacco: Never Alcohol Use Standard Drinks/Week Comments No 0 (1 standard drink = 0.6 oz pur e alcohol) Sex and Gender Information Value Date Recorded Sex Assigned at Not on file 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 Gender Identity Not on file Sexual Orientation Not on file documented as of this encounter Last Filed Vital Signs Vital Sign Reading Time Taken Comments Blood Pressure 116/67 08/29/2020 6:36 PM CDT Pulse 71 08/29/2020 6:36 PM CDT Temperature 36.9 ??C (98.5 ??F) 08/29/2020 6:36 PM CD T Respiratory Rate 16 08/29/2020 6:36 PM CDT Oxygen Saturation 100% 08/29/2020 6:36 PM CDT Inhaled Oxygen Concentration - - Weight 107.5 kg (237 lb) 08/29/2020 6:36 PM CDT Height 177.8 cm (5' 10 ) 08/29/2020 6:36 PM CDT Body Mass Index 34.01 08/29/2020 6:36 PM CDT documented in this encounter Discharge Diagnoses Diagnosis Unspecified convulsions (HCC) - UNSPECIFIED CONVULSIONS Syncope and collapse - SYNCOPE AND COLLAPSE documented in this encounter Medications at Time of Discharge aspirin 81 mg chewable tablet Take 1 tablet (81 mg total) by mouth daily citalopram (CeleXA) 40 mg tablet Take 1 tablet (40 mg total) by mouth every morning cyanocobalamin/f olic acid (vitamin [id number] acid) 2,500-400 mcg tablet,disintegr ating 05/14/1969 cyclobenzaprine [...] 1 tablet (50 mcg total) 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 Total bniu=745lx at bedtime only] 30 tablet 8 07/30/2020 1 divalproex ER (DEPAKOTE ER) 500 mg 24 hr tabletIndication s:epilepsy Take 2 tablets (1,000 mg total) by mouth daily AND 1 tablet (500 mg total) nightly. [Take 250mg tab with bedtime dose only for total dose of 750mg at bedtime]. 90 tablet 6 07/30/2020 1 ergocalciferol (VITAMIN D) 50,000 unit capsule Take 50,000 Units by mouth once a week Sundays 1 icosapent ethyl (VASCEPA) 1 gram capsuleIndicatio ns:hypertriglyce ridemia Take 2 g by mouth 2 (two) times a day 1 meclizine (ANTIVERT) 25 mg tablet Take 25 mg by mouth 3 (three) times a day as needed for dizziness 1 meloxicam (MOBIC) 7.5 mg tablet Take 7.5 mg by mouth 2 (two) times a day as needed for pain 1 topiramate (TOPAMAX) 200 mg tablet Take 1 tablet (200 mg total) by mouth 2 (two) times a day 120 tablet 6 07/26/2020 1 traMADol (ULTRAM) 50 mg tablet Take 50 mg by mouth every 6 (six) hours as needed for pain 2 documented as of this encounter Discharge Disposition Disposition Code Departure Means Destination Left Against Medical Advice documented in this encounter ED Notes * Zahida Simpson MD - 08/29/2020 7:13 PM CDT HPI Chief Complaint Patient presents with ??? Seizures Numerous 'Focal' epilieptic like episodes in the last few hours. 55-year-old male with the past medical history of epilepsy with partial complex seizures, status post lobectomy a brain, asthma, hypertension, diabetes, pacemaker presents with possible episodes of focal epileptic like in the few hours. Patient feels like his syncopal episode. Patient states he fell and hit his head mild headache. Patient denies fever chills cough or congestion. Patient also states he felt like vertigo just before this happened. Patient History: Patient Active Problem List Diagnosis Date Noted ??? Nonepileptic episode (CMS/[facility]) 11/11/2019 ??? Syncope and collapse ??? Pacemaker 06/05/2019 ??? Diabetes (CMS/HCC) 06/05/2019 ??? Hypertension 06/05/2019 ??? Asthma 06/05/2019 ??? Hypothyroidism 06/05/2019 ??? Anxiety and depression 06/05/2019 ??? GERD (gastroesophageal reflux disease) 06/05/2019 ??? 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 ??? Recurrent seizures (CMS/HCC) 05/18/2015 ??? Epilepsy with partial complex seizures (CMS/HCC) 04/08/2013 Past Medical History: Diagnosis Date ??? Anxiety disorder Anxiety - (Added by TW Conv) ??? Asthma ??? Diabetes (CMS/HCC) 06/05/2019 ??? Hypertension ??? Personal history of [...] (Added by TW Conv) ??? Seizures (CMS/HCC) Past Surgical History: Procedure Laterality Date ??? CARDIAC PACEMAKER PLACEMENT Pacemaker Placement - (Added by TW Conv) ??? [place] CRANIOT W BONE FLAP FOR AMYGDALOHIPPOCAMPECTOMY Craniotomy For Amygdalohippocampectomy - (Added by TW Conv) Family History Problem Relation Age of Onset ??? Brain cancer Brother Brain tumor - (Added by TW Conv) Social History Tobacco Use ??? Smoking status: Former Smoker ??? Smokeless tobacco: Never Used Substance Use Topics ??? Alcohol use: No ??? Drug use: No Social History Social History Narrative ??? Not on file Review of Systems Review of Systems Constitutional: Negative for chills, fatigue and fever. HENT: Negative for congestion, ear discharge, ear pain, postnasal drip, sinus pressure, sinus pain and sore throat. Eyes: Negative for discharge, redness and visual disturbance. Respiratory: Negative for cough, chest tightness, shortness of breath and wheezing. Cardiovascular: Negative for chest pain and palpitations. Gastrointestinal: Negative for abdominal pain, blood in stool, diarrhea, nausea and vomiting. Endocrine: Negative for cold intolerance, polydipsia and polyuria. Genitourinary: Negative for difficulty urinating, dysuria, flank pain, hematuria and urgency. Musculoskeletal: Negative for back pain, joint swelling, myalgias, neck pain and neck stiffness. Skin: Negative for pallor and rash. Allergic/Immunologic: Negative for environmental allergies and food allergies. Neurological: Positive for seizures, syncope and headaches. Negative for dizziness, facial asymmetry, speech difficulty, weakness, light-headedness and numbness. Hematological: Negative for adenopathy. Psychiatric/Behavioral: Negative for agitation, confusion and hallucinations. All other systems reviewed and are negative. Physical Exam ED Triage Vitals [08/29/201835] Temp Pulse Resp BP SpO2 36.9 ??C (98.5 ??F) 71 16 116/67 100 % Temp src Heart Rate Source Patient Position BP Location FiO2 (%) Oral -- -- -- -- Physical Exam Vitals and nursing note reviewed. Constitutional: General: He is not in acute distress. Appearance: He is well-developed. HENT: Head: Normocephalic and atraumatic. Mouth/Throat: Pharynx: No oropharyngeal exudate. Eyes: Conjunctiva/sclera: Conjunctivae normal. Pupils: Pupils are equal, round, and reactive to light. Neck: Trachea: No tracheal deviation. Cardiovascular: Rate and Rhythm: Normal rate and regular rhythm. Heart sounds: No murmur. No friction rub. No gallop. Pulmonary: Effort: Pulmonary effort is normal. No respiratory distress. Breath sounds: Normal breath sounds. No wheezing or rales. Abdominal: General: Bowel sounds are normal. There is no distension. Palpations: Abdomen is soft. Tenderness: There is no abdominal tenderness. There is no guarding or rebound. Musculoskeletal: General: No tenderness or deformity. Normal range of motion. Cervical back: Neck supple. Lymphadenopathy: Cervical: No cervical adenopathy. Skin: General: Skin is dry. Neurological: Mental Status: He is alert and oriented to person, place, and time. Cranial Nerves: No cranial nerve deficit. Sensory: No sensory deficit. Motor: No abnormal muscle tone. Coordination: Coordination normal. Deep Tendon Reflexes: Reflexes normal. Psychiatric: Behavior: Behavior normal. [facility] ED Course as of Aug 30 116 Time: 08/30 1915 Comment: Will obtain cardiac workup along with well for a cast and topiramate levels will obtain a CT head By: Zahida Simpson MD Time: 08/30 2055 Comment: Patient states he feels better. Workup is unremarkable so far still awaiting CT head and the 2nd troponin patient does not want to stay wants to go home patient is signing out against medical advise By: Zahida Simpson MD Time: 08/29 2106 Comment: CT head no acute intracranial process as per virtual Radiology By: Zahdia Simpson MD Final diagnoses: Seizure (CMS/HCC) Syncope, unspecified syncope type Zahida Simpson MD 08/29/201915 Zahida Simpson MD 08/30/208 * Judson Patel RN - 08/29/2020 6:33 PM CDT PT presents via EMS from [facility]. PT will need to return HOME upon D/C. EMS reports: Bystanders witnessed syncopal episode and seizure like activity during which patient struck his head. PT fell from chair to floor. EMS reports: Focal episode en route. PT does not recollect these episodes but becomes lucid shortlyafter. Airway Patent. Breathing Spontaneous. Circulation Present Skin is warm and dry. Respirations are unlabored and regular. PT verbalizes with staff and follows commands. No seizure activity at this time. * Carolina Buck RN - 08/29/2020 6:03 PM CDT Bed: [facility] Expected date: Expected time: Means of arrival: Comments: 55m syncopal episode/did hit head/had focal seizure for EMS Carolina Buck RN 08/29/20 1803 documented in this encounter Plan of Treatment Scheduled Orders Name Type Priority Associated Diagnoses Orde r Schedule Urinalysis reflex to microscopic and culture Urine, clean voided Microbiology STAT STAT for 1 Occurrences starting 08/29/2020 until 08/29/2020 documented as of this encounter Procedures Procedure Name Priority Date/Time Associated Diagnosis Comments TROPONIN T HIGH-SENSITIVITY SERIES (BASELINE, 2HR, 4HR, 6HR) STAT 08/29/2020 7:49 PM CDT EGFR STAT 08/29/2020 7:49 PM CDT DIFFERENTIAL AUTO STAT 08/29/2020 7:4 9 PM CDT CBC WITH AUTO DIFFERENTIAL STAT 08/29/2020 7:49 PM CDT PROLACTIN Routine 08/29/2020 7:49 PM CDT TOPIRAMATE LEVEL Timed 08/29/2020 7:49 PM CDT VALPROIC ACID LEVEL, TOTAL STAT 08/29/2020 7:49 PM CDT COMPREHENSIVE METABOLIC PANEL STAT 08/29/2020 7:[address] HEAD WO CONTRAST ED 08/29/2020 7 :23 PM CDT XR CHEST 1 VIEW ED 08/29/2020 6:56 PM CDT ECG 12-LEAD STAT 08/29/2020 6:04 PM CDT documented in this encounter Results * eGFR (08/29/2020 7:49 PM CDT) [facility] eGFR 96 mL/min/1.7 3 m2 JOHANNY VALENCIA Comment: Interpretive Data Reference Interval Normal ?>/= 90 mL/min/1.73m2 Mildly decreased* ? 60 - 89 mL/min/1.73m2 Mildly to moderately decreased ?45 - 59 mL/min/1.73m2 Moderately to severely decreased ??30 - 44 mL/min/1.73m2 Severely decreased ?15 - 29 mL/min/1.73m2 Kidney Failure ?< 15 ??mL/min/1.73m2 *Relative to young adult level Estimated glomerular filtration rate is determined by the CKD-EPI equation recommended by the National Kidney Foundation (KDIGO 2012 Clinical Practice Guideline for the Evaluation and Management of Chronic Kidney Disease. Kidney Intnl Suppl May 2012;3:1). The CKD-EPI equation should not be used for patients with unstable renal function and has not been validated in children and those over 70. Current interpretive data was last reviewed 2020 Blood specimen (specimen) 08/29/2020 7:49 PM CDT 08/29/2020 7:52 PM CDT us Zahida Simpson MD LAB BLOOD ORDERABLES Fi nal Result Performing Organization Address City/State/[facility] Co de Phone Number JOAHNNY [address] [address] Department of Laboratories [place], [place] [id number] * Differential, auto (08/29/2020 7:49 PM CDT) Neutrophil abs 2.6 1.7 - 6.5 K/cumm [facility] Imm gran abs 0.1 0.0 - 0.1 K/cumm [facility] Lymphocyte abs 2.8 0.8 - 3.3 K/cumm [facility] Monocyte abs 0.4 0.2 - 0.8 K/cumm [facility] Eosinophil abs 0.2 0.0 - 0.5 K/cumm [facility] Basophil abs 0.0 0.0 - 0.1 K/cumm [facility] Neutrophil pct 42.9 % [facility] Comment: Interpretive Data Percent cell count reference ranges are not reported, since discordance with absolute values may lead to misinterpretation of CBC data. Current Interpretive Data was last revised on 2017. Imm gran pct 1.0 % [facility] Comment: Interpretive Data Percent cell count reference ranges are not reported, since discordance with absolute values may lead to misinterpretation of CBC data. Current Interpretive Data was last revised on 2017. Lymphocyte pct 45.8 % [facility] Comment: Interpretive Data Percent cell count reference ranges are not reported, since discordance with absolute values may lead to misinterpretation of CBC data. Current Interpretive Data was last revised on 2017. Monocyte pct 6.9 % [facility] Comment: Interpretive Data Percent cell count reference ranges are not reported, since discordance with absolute values may lead to misinterpretation of CBC data. Current Interpretive Data was last revised on 2017. Eosinophil pct 2.9 % [facility] Comment: Interpretive Data Percent cell count reference ranges are not reported, since discordance with absolute values may lead to misinterpretation of CBC data. Current Interpretive Data was last revised on 2017. Basophil pct 0.5 % [facility] Comment: Interpretive Data Percent cell count reference ranges are not reported, since discordance with absolute values may lead to misinterpretation of CBC data. Current Interpretive Data was last revised on 2017. Blood specimen (specimen) 08/29/2020 7:49 PM CDT 08/29/2020 7:52 PM CDT us Zahida Simpson MD LAB BLOOD ORDERABLES Fi nal Result JOHANNY [address] [address] Department [place] [address] * Valproic acid level, total (08/29/2020 7:49 PM CDT) Valproic Acid 54.1 50.0 - 100.0 mcg/mL JOHANNY Blood specimen (specimen) 08/29/2020 7:49 PM CDT 08/29/2020 7:52 PM CDT Zahida Simpson MD LAB BLOOD ORDERABLES Fi nal Result Performing Organization Address City/[facility] Co de Phone Number [facility] [address] [address] [facility] [place] [address] * Prolactin (08/29/2020 7:49 PM CDT) Prolactin 6.9 4.0 - 15.2 ng/mL [facility] Blood specimen (specimen) 08/29/2020 7:49 PM CDT 08/29/2020 7:52 PM CDT Zahida Simpson MD LAB BLOOD ORDERABLES Fi nal Result Performing Organization Address [facility] de Phone Number [facility] [address] [address] [facility] [place] [address] * Topiramate level (08/29/2020 7:49 PM CDT) Topiramate (Topamax) 7.3 mcg/mL [facility] Comment: REFERENCE VALUE Reference values depend on clinical use: Anticonvulsant: 5.0-20.0 mcg/mL Psychiatric: 2.0-8.0 mcg/mL ADDITIONAL INFORMATION This test was developed and its performance characteristics determined by [facility] in a manner consistent with CLIA requirements. This test has not been cleared or approved by the U.S. Food and Drug Administration. Test Performed by: [facility] - [address] [address] [address]: Trenton Braun M.D. Ph.D.; CLIA# [id number] Blood specimen (specimen) 08/29/2020 7:49 PM CDT 08/29/2020 7:52 PM CDT Zahida Simpson MD LAB BLOOD ORDERABLES Fi nal Result Performing Organization Address [facility] de Phone Number [facility] [address] [address] [place] [address] * Troponin T high-sensitivity series (baseline, 2hr, 4hr, 6hr) (08/29/2020 7:49 PM CDT) Trop T hs 7 <=22 ng/L [facility] Comment: Slight hemolysis may result in decreased troponin measurement. Consider recollection. Interpretive Data For further hscTnT resources including the diagnostic algorithm and an aid in interpretation, copy and paste this link: https://nrl.testcatalog.org/show/hsTrop Current Interpretive Data last revised 2020. Blood specimen (specimen) 08/29/2020 7:49 PM CDT 08/29/2020 7:52 PM CDT Zahida Simpson MD LAB BLOOD ORDERABLES Fi nal Result Performing Organization Address [facility] de Phone Number JOHANNY [address] [address] [place] [address] * (ABNORMAL) Comprehensive metabolic panel (08/29/2020 7:49 PM CDT) Sodium 139 135 - 145 mmol/L [facility] Potassium, pl 4.6 3.3 - 4.9 mmol/L [facility] Comment:Hemolysis present. R esults may be affected. Chloride 109 97 - 110 mmol/L [facility] CH CO2 23 22 - 32 mmol/L [facility] Anion gap 7 2 - 15 mmol/L [facility] BUN 20 8 - 25 mg/dL [facility] Creatinine 0.89 0.80 - 1.30 mg/dL [facility] Glucose 111 70 - 199 mg/dL [facility] Comment: Interpretive Data Fasting glucose >/= 126 [...] interpretive data was last revised 2017. Calcium 9.1 8.5 - 10.3 mg/dL [facility] Bilirubin, total 0.2 0.1 - 1.2 mg/dL [facility] Protein, pl 7.1 6.5 - 8.5 g/dL [facility] Albumin 4.1 3.5 - 5.0 g/dL [facility] Alk phos 60 40 - 130 Units/L [facility] ALT 21 7 - 55 Units/L [facility] Comment:Hemolysis present. R esults may be affected. AST 61(H) 10 - 50 Units/L [facility] Comment:Hemolysis present. R esults may be affected. Blood specimen (specimen) 08/29/2020 7:49 PM CDT 08/29/2020 7:52 PM CDT us Zahida Simpson MD LAB BLOOD ORDERABLES Fi nal Result [facility] [address] [address] Department [place] [address] * (ABNORMAL) CBC with auto differential (08/29/2020 7:49 PM CDT) WBC 6.1 3.8 - 9.9 K/cumm [facility] Hgb 14.1 13.0 - 17.5 g/dL [facility] Hct 45.7 38.9 - 50.3 % [facility] Plt 214 150 - 400 K/cumm [facility] MPV 10.0 9.1 - 12.3 fL [facility] RBC 4.64 4.30 - 5.80 M/cumm [facility] MCV 98.5(H) 81.3 - 96.4 fL [facility] CH MCH 30.4 27.1 - 33.3 pg [facility] CH MCHC 30.9(L) 32.3 - 35.7 g/dL [facility] RDW CV 13.5 11.1 - 14.9 % [facility] RDW SD 49.4(H) 35.7 - 48.1 fL [facility] CH NRBC abs 0.00 0.00 - 0.01 K/cumm [facility] Blood specimen (specimen) 08/29/2020 7:49 PM CDT 08/29/2020 7:52 PM CDT us Zahida Simpson MD LAB BLOOD ORDERABLES Fi nal Result JOHANNY VALENCIA [address] [address] [place] [address] * CT Head WO Contrast (08/29/2020 7:23 PM CDT) Anatomical Region Laterality Modality Head and Neck N/A Computed Tomogra phy 08/30/2020 6:58 AM CDT Impressions 08/30/2020 7:00 AM CDT No acute intracranial abnormality. Stat report by [facility] Electronically signed by: Drew Ochoa M.D. Narrative 08/30/2020 7:00 AM CDT EXAMINATION: CT head without contrast HISTORY: Syncope and collapse. TECHNIQUE: Noncontrast CT of the brain was performed with images acquired from skull base to vertex. COMPARISON: 06/05/2019 FINDINGS: Brain: Unchanged area of encephalomalacia in the right temporal lobe. No hemorrhage, mass effect or midline shift. No evidence of acute, major vascular distribution infarction. Unremarkable white matter. No intra-axial or extra-axial fluid collection seen. Cerebral ventricles: No ventriculomegaly. Bones/joints: Surgical changes after right temporal craniotomy is again seen, unchanged. Paranasal sinuses: Visualized sinuses are unremarkable. No fluid levels. Mastoid air cells: Visualized mastoid air cells are well aerated. Soft tissues: There is mild prominence of the soft tissues in the right frontal/periorbital region. Procedure Note Drew Ochoa MD - 08/30/2020 EXAMINATION: CT head without contrast HISTORY: Syncope and collapse. TECHNIQUE: Noncontrast CT of the brain was performed with images acquired from skull base to vertex. COMPARISON: 06/05/2019 FINDINGS: Brain: Unchanged area of encephalomalacia in the right temporal lobe. No hemorrhage, mass effect or midline shift. No evidence of acute, major vascular distribution infarction. Unremarkable white matter. No intra-axial or extra-axial fluid collection seen. Cerebral ventricles: No ventriculomegaly. Bones/joints: Surgical changes after right temporal craniotomy is again seen, unchanged. Paranasal sinuses: Visualized sinuses are unremarkable. No fluid levels. Mastoid air cells: Visualized mastoid air cells are well aerated. Soft tissues: There is mild prominence of the soft tissues in the right frontal/periorbital region. IMPRESSION: No acute intracranial abnormality. Stat report by [facility] Electronically signed by: Drew Ochoa M.D. Zahida Simpson MD IMG CT PROCEDURES Final Result * XR Chest 1 Vw Portable (08/29/2020 6:56 PM CDT) Anatomical Region Laterality Modality Body, Chest N/A Computed Radiogr aphy 08/30/2020 7:15 AM CDT Impressions 08/30/2020 7:16 AM CDT 1. No acute pulmonary abnormality. ??No change. Electronically signed by: Belle Aguilar M.D. Narrative 08/30/2020 7:16 AM CDT Examination: Chest, single frontal view Order Date: 08/29/2020 6:45 PM History: cough Comparison: 03/22/2019 ?? Findings: Cardiomediastinal silhouette is normal. There is no pneumothorax or pleural effusion. There is no focal pulmonic consolidation. ??Loop recorder is seen superimposing the left lower lobe of the lung. Procedure Note Belle Aguilar MD - 08/30/2020 Examination: Chest, single frontal view Order Date: 08/29/2020 6:45 PM History: cough Comparison: 03/22/2019 Findings: Cardiomediastinal silhouette is normal. There is no pneumothorax or pleural effusion. There is no focal pulmonic consolidation. Loop recorder is seen superimposing the left lower lobe of the lung. IMPRESSION: 1. No acute pulmonary abnormality. No change. Electronically signed by: Belle Aguilar M.D. Zahida Simpson MD IMG XR PROCEDURES Final Result * ECG 12 lead (08/29/2020 6:04 PM CDT) 08/29/2020 6:04 PM CDT Narrative [facility] - 08/30/2020 6:56 AM CDT Vent Rate: 72 bpm RR Interval: 822 msec MN Interval: 224 msec QRS Duration: 125 msec QT Interval: 429 msec QTC Interval: 454 msec P-R-T [place]: 50 - -66 - 27 degrees SINUS RHYTHM WITH FIRST DEGREE AV BLOCK LEFT ANTERIOR FASCICULAR BLOCK ABNORMAL ECG Compared to previous ECG the left anterior fascicular block is new Electronically Signed By: Viet Luque MD, [facility] Zahida Simpson MD ECG ORDERABLES Final R esult [facility] documented in this encounter Visit Diagnoses Diagnosis Seizure (HCC)- Primary Other convulsions Syncope, unspecified syncope type documented in this encounter Active and Recently Administered Medications Orders Medications Ordered That Geo ht Not Have Been Administered Count Last Ordered Date First Ordered Date cefepime (MAXIPIME) 2,000 mg in sodium chloride 0.9% 100 mL IVPB 1 08/29/2020 Nursing Count Last Ordered Date First Orde red Date CARDIO RESPIRATORY MONITORING 1 08/29/2020 CONTINUOUS PULSE OXIMETRY 1 08/29/2020 IV Count Last Ordered Date First Orde red Date INSERT PERIPHERAL IV 1 08/29/2020 SALINE LOCK IV 1 08/29/2020 documented in this encounter Care Teams Hog Cooler Relationship Specialty Start Date End Date Sergey Wilson MD PCP - General 09/20/16 documented as of this encounter
--- OUTSIDE RECORDS SUMMARY | 2024-05-24 02:07 | XMS_ITS | Encounter Summary ---
Author Organization [facility] Address [address] [place] [address] Phone Care Team Providers Care Director Global Market Research Name Role Phone Sergey Wilson MD Primary Care Provider [phone] Reason for Visit * Reason Onset Date Comments Med Management 07/28/2020 Clearify dosage instructions Encounter Details Date Type Department Care Team (Late st Contact Info) Description 07/28/2020 Telephone [facility] Epilepsy [address] [facility] Advanced Medicine 6th [place] [address] [place] [address] Lilibeth Armstrong Med Management (Clearify dosage instructions) Social History Tobacco Use Types Packs/Day Years Used Date Smoking Tobacco: Former Smokeless Tobacco: Never Alcohol Use Standard Drinks/Week Comments No 0 (1 standard drink = 0.6 oz pur e alcohol) Sex and Gender Information Value Date Recorded Sex Assigned at Not on file 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 90 tablet 6 07/30/2020 divalproex ER (DEPAKOTE ER) 250 mg 24 hr tablet Take 1 tablet (250 mg total) by mouth nightly [with 500mg tablet. Total [id number] at bedtime only] 30 tablet 8 07/30/2020 documented in this encounter Miscellaneous Notes * Addendum Note - Ana Cassidy RN - 07/30/2020 2:22 PM CDTAddended by: ANA CASSIDY on: 07/30/2020 02:22 PM Modules accepted: Orders * Telephone Encounter - Ana Cassidy RN - 07/30/2020 2:21 PM CDT Called pt and relayed Dr Jose's information. Pt verbalized understanding and stated he agreed he didn't think the falls were related to his decreased VPA ER. Relayed that Dr Jose was glad he was following up with his PMD. Med profile updated. * Telephone Encounter - Clifton Jose MD PhD - 07/30/2020 1:55 PM CDT Sure. In the hospital he wanted to try the lower VPA because he thought VPA was causing falls, now he thinks less VPA is causing falls? Not sure it's related to VPA, so PMD eval makes sense. He had no falls, just NEE's at recent Video/EEG, no discharges or seizures recorded. Jordan * Telephone Encounter - Ana Cassidy RN - 07/30/2020 11:[address] Jose, Pt said he would like to try VPA ER 1000/750 instead of going back to 1000/500. He also had anotherfall and has updated his PMD. Would you like me to order 250mg ER tabs for pt to try the slightly higher dose? ~Ana * Telephone Encounter - Ana Cassidy RN - 07/29/2020 4:53 PM CDT Called pt and LVM with new orders from Dr Jose. Asked pt to call office tomorrow to confirm he received the message. Med profile will be updated once pt confirms he has increased. * Telephone Encounter - Clifton Jose MD PhD - 07/29/2020 2:54 PM CDT He can go back up on VPA to 1000 mg bid and see if he feels better. Let's try to keep the TPM at 200 mg bid. Jordan * Telephone Encounter - Ana Cassidy RN - 07/29/2020 2:[address] Jose, Pt called and stated I've fallen a bunch of times since Dr Jose lowered that medicine. Once asked more questions, he stated I just know when he lowers my medicine, I can feel something different inmy body. Pt was unable to clarify what was different and if he had weakness, or tripped. One episode was from a seated position and occurred once he stood. He became more agitated as I asked for more detail and then stated There's nothing you can do for me and the call was abruptly ended. Would you like to make any changes or have him monitor for longer? TPM 200mg BID, VPA ER 1000/500. ~Ana * Telephone Encounter - Ana Cassidy RN - 07/29/2020 9:39 AM CDT Called pt and reviewed discharge instructions for VPA ER from EMU, as ordered by Dr Jose. Pt verbalized understanding and said he would take both AEDs as ordered at discharge. * Telephone Encounter - ReinaldomollyteresaLilibeth - 07/28/2020 3:47 PM CDT Patient called wanting to clearify dosage instructions for his Depakote. Per patient, Dr. Jose told him to take 2 tabs in AM and 1 1/2 tabs in PM. Sig on bottle from pharmacy states to take 2 tabs in AM and 1 tab in PM. Which is correct. Patient will not take medication until sig confirmed. Please call patient back at [phone]......nb documented in this encounter Plan of Treatment Not on file documented as of this encounter Visit Diagnoses Not on filedocumented in this encounter Discontinued Medications Medication Sig Discontinue Reason Start Date End Da te divalproex ER (DEPAKOTE ER) 500 mg 24 hr tabletIndications:epilep sy Take 2 tablets (1,000 mg total) by mouth daily AND 1 tablet (500 mg total) nightly. Reorder 07/26/2020 07/30/2020 documented as of this encounter Care Teams Director Global Market Research Relationship Specialty Start Date End Date Sergey Wilson MD PCP - General 09/20/16 documented as of this encounter
--- OUTSIDE RECORDS SUMMARY | 2024-05-24 02:07 | XMS_ITS | Encounter Summary ---
Author Organization [facility] Address [address] [place] [address] Care Team Providers Care Rn Spine Name Role Phone Sergey Wilson MD Primary Care Provider [phone] Encounter Details Date Type Department Care Team (Latest Contact Info) Description 08/29/2020 5:36 PM CDT - 08/29/2020 11:59 PM CDT Hospital Encounter [facility] [address] [place] [address] Discharge Disposition: Discharge to home or self care Social History Tobacco Use Types Packs/Day Years Used Date Smoking Tobacco: Former Smokeless Tobacco: Never Alcohol Use Standard Drinks/Week Comments No 0 (1 standard drink = 0.6 oz pur e alcohol) Sex and Gender Information Value Date Recorded Sex Assigned at Not on file 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 Gender Identity Not on file Sexual Orientation Not on file documented as of this encounter Medications at Time of Discharge aspirin 81 mg chewable tablet Take 1 tablet (81 mg total) by mouth daily citalopram (CeleXA) 40 mg tablet Take 1 tablet (40 mg total) by mouth every morning cyanocobalamin/f olic acid (vitamin H99-ybmjl acid) 2,500-400 mcg tablet,disintegr ating 05/14/1969 cyclobenzaprine [...] 1 tablet (50 mcg total) by mouth [employer] manager before breakfast montelukast (SINGULAIR) 10 mg [...] mg total) by mouth daily before breakfast [employer] ULTRA BLUE TEST STRIP strip USE TO TEST QD 0 09/13/2017 [employer] ULTRA2 kit USE TO TEST QD 0 [...] by mouth nightly [with 500mg tablet. Total jeet=201iw at bedtime only] 30 tablet 8 07/30/2020 [...] on filedocumented in this encounter Care Teams Rn Spine Relationship Specialty Start Date End Date Sergey Wilson MD PCP - General 09/20/16 documented as of this encounter
--- OUTSIDE RECORDS SUMMARY | 2024-05-24 02:07 | XMS_ITS | Encounter Summary ---
Author Organization [facility] Healthcare Address [address] [place] [address] Care Team Providers Care Surgical Scrub Technologist Name Role Phone Sergey Wilson MD Primary Care Provider [phone] Reason for Visit * Neurology (Routine) - Closed Specialty Diagnoses / Procedures Referred By Contac t Referred To Contact Neurology Diagnoses Partial symptomatic epilepsy with complex partial seizures, not intractable, without status epilepticus (HCC) Nonepileptic episode (HCC) Procedures Continuous Video EEG -[facility] Clifton Jose MD PhD [address] [place] [address] Phone: tel: fax: Referral ID Status Reason Start Date Expiration Date Visits Re quested Visits Authorized [id number] Closed 05/04/2020 06/03/2021 1 1 Encounter Details Date Type Department Care Team (Latest Contact Info) Description 07/20/2020 8:00 AM MIXER SLAGMAN Ancillary Procedure [address] [address] Clifton Jose MD PhD [address] [place] [address] Elias Lorenz MT Partial symptomatic epilepsy with complex partial seizures, not intractable, without status epilepticus (CMS/HCC); Nonepileptic episode (CMS/HCC) Social History Tobacco Use Types Packs/Day Years Used Date Smoking Tobacco: Former Smokeless Tobacco: Never Alcohol Use Standard Drinks/Week Comments No 0 (1 standard drink = 0.6 oz pur e alcohol) Sex and Gender Information Value Date Recorded Sex Assigned at Not on file 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 Gender Identity Not on file Sexual Orientation Not on file documented as of this encounter Progress Notes * Elias Lorenz MT - 07/20/2020 8:00 AM CST 07/20/20 1428 Seizure Monitoring Unit Application Patient Identity Verified By Checking the patient's armband for name and date of Electrodes Scalp electrodes applied;No scalp breakdown noted Monitoring Video EEG monitoring started Patient Teaching Educated to press seizure button to carson clinical events Explanation and Consent Shown camera and microphone R SLAGMAN * Elias Lorenz MT - 07/20/2020 8:00 AM CST 07/26/20 1456 Seizure Monitoring Unit Discontinuation Monitoring Video EEG monitoring discontinued Electrodes Scalp electrodes removed;No skin breakdown noted at electrode sites documented in this encounter Plan of Treatment Not on file documented as of this encounter Procedures Procedure Name Priority Date/Time Associated Diagnosis Comments CONTINUOUS VIDEO EEG Routine 07/26/2020 4:34 PM CDT Partial symptomatic epilepsy with complex partial seizures, not intractable, without status epilepticus (CMS/HCC) Nonepileptic episode (CMS/HCC) documented in this encounter Results * Continuous Video EEG -[facility] (07/26/2020 4:34 PM CDT) Anatomical Region Laterality Modality EEG Narrative 07/26/2020 4:34 PM CDT Video-EEG Report Patient Name: Dennis Branch [facility] Medical Record Number (MRN): [id number] [place] Record: [id number] Date of (): 1965` EEG Date: 07/20/2020 Ordering Provider: Clifton Jose MD PhD CC: Sergey Wilson Start Time: 07/20/2020 1:39:30 PM ? End Time: 07/26/2020 2:25:56 PM Introduction: Mr. Branch is a 55 y.o. male with a history of asthma, s/p pacemaker, diabetes, depression, back pain, epilepsy s/p right temporal lobectomy,and [facility] (2012), who presented with LOC events concerning for seizures. ??EEG was performed to evaluate for seizures. This is a report of continuous video-EEG monitoring. High definition digital video and digital EEG were recorded continuously with a [employer] EEG acquisition system. This was a 32 channel EEG with additional anterior temporal electrodes. Electrodes were placed with collodion following the 10/20 International System. The patient was monitored and observed continuously by technical personnel. Digital seizure and spike detection were utilized during the recording. EEG Description: The awake background included an 11 Hz posterior rhythm which attenuated with eye opening and activity. During drowsiness, identified by ocular signs and alpha attenuation, there was intermittent, diffuse, asynchronous theta activity admixed with 2-4 Hz polymorphic frontotemporal delta activity. As the record progressed, stage II sleep was identified by vertex waves, sleep spindles and K-complexes. During the recording, there were changes consistent with light and deep sleep stages. Hyperventilation was not performed. Photic strobe stimulation elicited no abnormalities.There was an intermittent prominence of theta and delta range activities over the right temporal region. Faster frequencies were better seen over the right hemisphere. There were no epileptiform abnormalities. The EKG showed a normal rate and rhythm. Daily Video-EEG Description: Epoch 1: 07/20/2020 1:39:30 PM - 07/21/2020 1:39:30 PM The interictal EEG was as described above. There were no clinical or electrographic events. Epoch 2: 07/21/2020 1:39:30 PM - 07/22/2020 1:39:30 PM The interictal EEG was as described above. Photic strobe stimulation was performed and elicited no abnormalities.There were two clinical events reported. Event #1 occurred at 6:17 PM on 07/21. The patient pushed the button and was unresponsive for approximately 2 minutes. Then he reported there was ring noise in his ears and he felt tired. He was responsive and communicative.There was no significant EEG change with this event beyond EMG and movement artifact. Event #2 occurred at 12:49 PM on 07/22. The patient was unresponsive for approximately 2 minutes. Then he reported he had sensation of tingling in his back head. He was responsive and communicative. There was no significant EEG change with this event beyond EMG and movement artifact. Epoch 3: 07/22/2020 1:39:30 PM - 07/23/2020 1:39:30 PM The interictal EEG was as described above. There were no clinical or electrographic events. Epoch 4: 07/23/2020 1:39:30 PM - 07/24/2020 1:39:30 PM The interictal EEG was as described above. ??Photic strobe stimulation was performed and elicited no abnormalities. There were no clinical or electrographic events. Epoch 5: 07/24/2020 1:39:30 PM - 07/25/2020 1:39:30 PM The interictal EEG was as described above. There were one false and one real clinical events recorded. At 2:10 PM on 07/24. The long front desk monitor found the patient had possible something wrong and called code teal. The patient was scared while the staff came in and said hello . He initially had no response to staff's questions, then he could give the name and recall the color seconds later. He said he did not have something wrong and he had no button pushing. There was no significant EEG change with this episode beyond EMG and movement artifact. Event #3 occurred at 12:08 PM on 07/22. The patient had activity arrest with remaining head drop while he was sitting in the chair after his lunch. He pressed the event button after approximately 1 minute. He could not answer questions while the staff came in, but he was able to code teal well seconds later. ??He also reported there was ring noise in his ears during the event. ??There was no significant EEG change with this event beyond EMG and movement artifact. Epoch 6: 07/25/2020 1:39:30 PM - 07/26/2020 2:25:56 PM The interictal EEG was as described above. There were no clinical or electrographic events. Interpretation: No seizures were captured during the recording. The noted events, which were typical, did not have EEG or EKG correlate, and were clinically consistent with non-epileptic events. ?? This is an abnormal awake and asleep Video/EEG due to right temporal slowing. Focal slowing indicates focal cerebral dysfunction. A focal structural or physiological abnormality should be considered. The noted right hemisphere faster frequencies may be due to breach effect from his prior neurosurgical procedure. By signing this report, the attending Electroencephalographer certifies that he/she personally reviewed the electrodiagnostics study and has edited this report to fully conform with his/her intent. Signing Attending: Clifton Jose MD PhD us Clifton Jose MD PhD NEUROLOGY ORDERABLES Adeline l Result documented in this encounter Visit Diagnoses Diagnosis Partial symptomatic epilepsy with complex partial seizures, not intractable, without status epilepticus (HCC) Nonepileptic episode (HCC) documented in this encounter Care Teams Surgical Scrub Technologist Relationship Specialty Start Date End Date Sergey Wilson MD PCP - General 09/20/16 documented as of this encounter
--- OUTSIDE RECORDS SUMMARY | 2024-05-24 02:07 | XMS_ITS | Encounter Summary ---
Author Organization [facility] Healthcare Address [address] [place] [address] Care Team Providers Care Spareribs Trimmer Name Role Phone Sergey Wilson MD Primary Care Provider [phone] Encounter Details Date Type Department Care Team (Late st Contact Info) Description 07/12/2020 Telephone [facility] Neurodiagnostics [address] [place] [address] Alaina Aragon Social History Tobacco Use Types Packs/Day Years Used Date Smoking Tobacco: Former Smokeless Tobacco: Never Alcohol Use Standard Drinks/Week Comments No 0 (1 standard drink = 0.6 oz pur e alcohol) Sex and Gender Information Value Date Recorded Sex Assigned at Not on file 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 NSED CERTIFIED ORTHOTIST documented in this encounter Plan of Treatment Not on file documented as of this encounter Visit Diagnoses Not on filedocumented in this encounter Care Teams Spareribs Trimmer Relationship Specialty Start Date End Date Sergey Wilson MD PCP - General 09/20/16 documented as of this encounter
--- OUTSIDE RECORDS SUMMARY | 2024-05-24 02:07 | XMS_ITS | Encounter Summary ---
Author Organization [facility] Address [address] [place] [address] Phone Care Team Providers Care Professional Services Consultant Name Role Phone Seregy Wilson MD Primary Care Provider [phone] Reason for Referral * Consultation (Routine) - Closed Specialty Diagnoses / Procedures Referred By Kirby t Referred To Contact Pulmonary Disease / Pulmonology Diagnoses Exertional dyspnea Angel Luis Saab MD [address] [place] [address] Phone: tel: fax: Cesar Rosales MD Phone: tel: fax: Referral ID Status Reason Start Date Expiration Date V isits Requested Visits Authorized [id number] Closed Specialty Services Required 02/08/2021 10/15/2021 12 12 Question Answer Please select the performing region: [facility] (All Locations) [[id number]] # of visits: 1 Comments Patient has exertional dyspnea Reason for Visit * Reason Comments Sleep Apnea * Consultation (Routine) - Closed Specialty Diagnoses / Procedures Referred By Contac t Referred To Contact Otolaryngology Diagnoses ALLA (obstructive sleep apnea) Jackie Orlando, PIERRE Phone: tel: fax: Angel Luis Saab MD [address] [facility] [facility] [address] [facility] [place] [address] Phone: tel: fax: Referral ID Status Reason Start Date Expiration Date V isits Requested Visits Authorized [id number] Closed Specialty Services Required 07/29/2020 08/28/2021 3 3 Encounter Details Date Type Department Care Team (Late st Contact Info) Description 09/15/2020 3:00 PM CDT Office Visit [facility] ([facility]) - [facility] ENT [address] [place] [address] [place] [address] Angel Luis Saab MD [address] [place], [place] [id number] Exertional dyspnea (Primary Dx); ALLA (obstructive sleep apnea) Social History Tobacco Use Types Packs/Day Years Used Date Smoking Tobacco: Former Smokeless Tobacco: Never Alcohol Use Standard Drinks/Week Comments No 0 (1 standard drink = 0.6 oz pur e alcohol) Sex and Gender Information Value Date Recorded Sex Assigned at Not on file 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 Gender Identity Not on file Sexual Orientation Not on file documented as of this encounter Last Filed Vital Signs Vital Sign Reading Time Taken Comments Blood Pressure 107/71 09/15/2020 4:16 PM CDT Pulse 81 09/15/2020 4:16 PM CDT Temperature - - Respiratory Rate - - Oxygen Saturation - - Inhaled Oxygen Concentration - - Weight 104.3 kg (230 lb) 09/15/2020 4:16 PM CDT Height 177.8 cm (5' 10 ) 09/15/2020 4:16 PM CDT Body Mass Index 33 09/15/2020 4:16 PM CDT documented in this encounter Progress Notes * Angel Luis Saab MD - 09/15/2020 3:00 PM CDT [facility] Department of Otolaryngology - Head & Neck Surgery Consultation Report 09/15/2020 Angel Luis Saab MD RN: Mahogany Sanders Consultation Requested By: Jackie Orlando NP Primary Care Provider: Sergey Wilson MD Patient Name: Dennis Branch Date of : 1965 Chief Complaint Patient presents with ??? Sleep Apnea HISTORY OF PRESENT ILLNESS: Dear Dr. Orlando, Thank you for asking me to evaluate Mr. Branch in the [facility] Otolaryngology - Head and Neck Surgery Clinic. The patient is accompanied today by himself. 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 He has longstanding exertional dyspnea with walking on flat ground and up stairs. He states his knees are shot and states there is nothingthat can be done. He states he is on a few inhalers because he was told he has asthma and COPD. He is a former smoker but quit. He lives alone. Past Medical History: Diagnosis Date ??? Anxiety [...] Placement - (Added by TW Conv) ??? RI CRANIOT W BONE FLAP FOR AMYGDALOHIPPOCAMPECTOMY Craniotomy For Amygdalohippocampectomy - (Added by TW Conv) Allergies Allergen Reactions ??? Glimepiride Unknown ??? Metformin Other (See comments) Current Outpatient Medications: ??? albuterol (PROVENTIL,VENTOLIN) 1.25 mg/3 mL nebulizer solution, Take 1.25 mg by nebulization every 6 (six) hours as needed for wheezing or shortness of breath , Disp: , Rfl: ??? albuterol HFA (PROVENTIL HFA,VENTOLIN HFA,PROAIR HFA) 90 mcg/actuation inhaler, Inhale 2 puffs every 4 (four) hours as needed for wheezing or shortness of breath, Disp: , Rfl: ??? aspirin 81 mg chewable tablet, Take 81 mg by mouth daily, Disp: , Rfl: ??? citalopram (CeleXA) 40 mg tablet, Take 40 mg by mouth every morning, Disp: , Rfl: ??? cyclobenzaprine (FLEXERIL) 10 mg tablet, Take 10 mg by mouth 2 (two) times a day, Disp: , Rfl: ??? divalproex ER (DEPAKOTE ER) 250 mg 24 hr tablet, Take 1 tablet (250 mg total) by mouth nightly [with 500mg tablet. Total avcl=338do at bedtime only], Disp: 30 tablet, Rfl: 8 ??? divalproex ER (DEPAKOTE ER) 500 mg 24 hr tablet, Take 2 tablets (1,000 mg total) by mouth dailyAND 1 tablet (500 mg total) nightly. [Take 250mg tab with bedtime dose only for total dose of 750mgat bedtime]., Disp: 90 tablet, Rfl: 6 ??? empagliflozin (JARDIANCE) 25 mg tablet, Take 25 mg by mouth daily, Disp: , Rfl: ??? enalapril (VASOTEC) 5 mg tablet, Take 5 mg by mouth daily, Disp: , Rfl: ??? fenofibrate (TRIGLIDE) 160 mg tablet, Take 160 mg by mouth nightly, Disp: , Rfl: ??? fluticasone propion-salmeterol (ADVAIR DISKUS) 250-50 mcg/dose diskus inhaler, Inhale 1 puff 2 (two) times a day Rinse mouth with water after use. Do not swallow., Disp: , Rfl: ??? fluticasone propionate (FLONASE) 50 mcg/actuation nasal spray, Administer 2 sprays into each nostril nightly , Disp: , Rfl: ??? levothyroxine (SYNTHROID) 50 mcg tablet, Take 50 mcg by mouth photographic machine operator before breakfast, Disp: , Rfl: ??? montelukast (SINGULAIR) 10 mg tablet, Take 10 mg by mouth daily, Disp: , Rfl: ??? nortriptyline (PAMELOR) 75 mg capsule, Take 75 mg by mouth 2 (two) times a day, Disp: , Rfl: ??? omega-3 fatty acids (LOVAZA) 1 gram capsule, TAKE 2 CAPSULES BY MOUTH TWICE DAILY BEFORE MEALS,Disp: , Rfl: ??? omeprazole (PriLOSEC) 20 mg capsule, Take 20 mg by mouth daily before breakfast, Disp: , Rfl: ??? ONETOUCH ULTRA BLUE TEST STRIP strip, USE TO TEST QD, Disp: , Rfl: 0 ??? ONETOUCH ULTRA2 kit, USE TO TEST QD, Disp: , Rfl: 0 ??? pioglitazone (ACTOS) 30 mg tablet, Take 30 mg by mouth daily, Disp: , Rfl: ??? rosuvastatin (CRESTOR) 40 mg tablet, Take 40 mg by mouth nightly, Disp: , Rfl: ??? topiramate (TOPAMAX) 200 mg tablet, Take 1 tablet (200 mg total) by mouth 2 (two) times a day, Disp: 120 tablet, Rfl: 6 ??? traMADol (ULTRAM) 50 mg tablet, Take 50 mg by mouth every 6 (six) hours as needed for pain, Disp: , Rfl: ??? umeclidinium (INCRUSE ELLIPTA) 62.5 mcg/actuation blister with device, Incruse Ellipta 62.5 mcg/actuation powder for inhalation, Disp: , Rfl: Social History Socioeconomic History ??? Marital status: Single Spouse name: Not on file ??? Number of children: Not on file ??? Years of education: Not on file ??? Highest education level: Not on file Occupational History ??? Not on file Tobacco Use ??? Smoking status: Former Smoker ??? Smokeless tobacco: Never Used Substance and Sexual Activity ??? Alcohol use: No ??? Drug use: No ??? Sexual activity: Not on file Other Topics Concern ??? Not on file Social History Narrative ??? Not on file Social Determinants of Health Financial Resource Strain: ??? Difficulty of Paying Living Expenses: Food Insecurity: ??? Worried About Running Out of Food in the Last Year: ??? Ran Out of Food in the Last Year: Transportation Needs: ??? Lack of Transportation (Medical): ??? Lack of Transportation (Non-Medical): Physical Activity: ??? Days of Exercise per Week: ??? Minutes of Exercise per Session: Stress: ??? Feeling of Stress : Social Connections: ??? Frequency of Communication with Friends and Family: ??? Frequency of Social Gatherings with Friends and Family: ??? Attends Yazidi Services: ??? Active Member of Clubs or Organizations: ??? Attends Club or Organization Meetings: ??? Marital Status: Intimate Partner Violence: ??? Fear of Current or Ex-Partner: ??? Emotionally Abused: ??? Physically Abused: ??? Sexually Abused: Family History Problem Relation Age of Onset ??? Brain cancer Brother Brain tumor - (Added by TW Conv) REVIEW OF SYSTEMS A complete review of systems was completed by the patient on the Patient History Form and reviewed with the patient during the visit. The patient intake form, including the past medical history, past surgical history, social history,family history, medications, allergies and review of systems was reviewed in its entirety and was signed and dated by myself. The Patient History Form can be found in the electronic medical record asa scanned document. PHYSICAL EXAM: Constitutional: Vitals BP 107/71 Pulse 81 Ht 177.8 cm (5' 10 ) Wt 104.3 kg (230 lb) BMI 33.00 kg/m?? General: Well-developed, well-nourished in no apparent distress. Appropriate affect. Came in a wheelchair from [facility]. Head and Face: Normocephalic, atraumatic. Skin: No cutaneous lesions of the face or neck. Neurologic: Cranial nerves II through XII are grossly intact. Eyes: Pupils are equal, round, and reactive to light and accommodation. Extraocular muscles are intact. No scleral icterus or injection. Ears: Auricles are unremarkable bilaterally. Hearing grossly intact. Nose: Dorsum is midline. No drainage. Oral Cavity/Oropharynx: No visible mucosal lesions. Tonsils 1-2+. Tongue protrudes midline, palate elevates symmetrically. Floor of mouth is pink and soft. No palpable abnormalities of the floor of mouth, oral tongue or base of tongue. Neck: No evidence of lymphadenopathy, masses or tenderness. The salivary gland examination is normal bilaterally. Endocrine: No palpable abnormalities of the thyroid gland. Cardiovascular: Extremities are warm and well perfused. Pulmonary: Normal quiet breathing. No respiratory distress, stridor, or wheeze. DATA REVIEWED: Polysomnogram from a 02/20/2018 shows an AHI of 1.6 with an oxygen saturation kelly of 91% overnight. IMPRESSION: Exertional dyspnea PLAN: I discussed with the patient that he does not have evidence of obstructive sleep apnea at this time. Regarding his dyspnea I am unsure if it is cardiopulmonary related or if it is secondary to deconditioning. I told him that he may just need physical therapy but I would like him to be referred to a die sinker for further evaluation to assure that I am not missing something sinister or something that could be corrected otherwise. He is in agreement. Thank you for allowing me to participate in the care of Mr. Branch. Should you have any questions or concerns, please do not hesitate to contact my office. Warm regards, Angel Luis Saab M.D. Special Education Educational Assistant Head & Neck Surgical Oncology and Microvascular Reconstruction Department of Otolaryngology - Head & Neck Surgery [facility] documented in this encounter Plan of Treatment Scheduled Referrals Name Type Priority Associated Diagnoses Order Schedule Ambulatory referral to Pulmonology Outpatient Referral Routine Exertional dyspnea Expected: 09/16/2020 (Approximate), Expires: 09/15/2021 documented as of this encounter Visit Diagnoses Diagnosis Exertional dyspnea- Primary Other dyspnea and respiratory abnormality ALLA (obstructive sleep apnea) Obstructive sleep apnea (adult) (pediatric) documented in this encounter Discontinued Medications Medication Sig Discontinue Reason Start Date End Da te dicyclomine (BENTYL) 10 mg capsule Take 10 mg by mouth 3 (three) times a day 09/15/2020 ergocalciferol (VITAMIN D) 50,000 unit capsule Take 50,000 Units by mouth once a week Sundays09/15/2020 icosapent ethyl (VASCEPA) 1 gram capsuleIndications:hype rtriglyceridemia Take 2 g by mouth 2 (two) times a day 09/15/2020 meclizine (ANTIVERT) 25 mg tablet Take 25 mg by mouth 3 (three) times a day as needed for dizziness 09/15/2020 meloxicam (MOBIC) 7.5 mg tablet Take 7.5 mg by mouth 2 (two) times a day as needed for pain 09/15/2020 documented as of this encounter Orders Outpatient Referral Count Last Ordered Date Fir st Ordered Date AMB REFERRAL TO ENT 1 09/15/2020 documented in this encounter Care Teams Professional Services Consultant Relationship Specialty Start Date End Date Sergey Wilson MD PCP - General 09/20/16 documented as of this encounter
--- OUTSIDE RECORDS SUMMARY | 2024-05-24 02:07 | XMS_ITS | Encounter Summary ---
Author Organization [facility] Healthcare Address [address] [place] [address] Care Team Providers Care Public Improvement Inspector Name Role Phone Sergey Wilson MD Primary Care Provider [phone] Encounter Details Date Type Department Care Team (Latest Contact Info) Description 06/11/2020 10:09 PM CONTENT MANAGER - 06/11/2020 11:59 PM CONTENT MANAGER Hospital Encounter [facility] Discharge Disposition: Discharge to home or self care Social History Tobacco Use Types Packs/Day Years Used Date Smoking Tobacco: Former Smokeless Tobacco: Never Alcohol Use Standard Drinks/Week Comments No 0 (1 standard drink = 0.6 oz pur e alcohol) Sex and Gender Information Value Date Recorded Sex Assigned at Not on file 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 Gender Identity Not on file Sexual Orientation Not on file documented as of this encounter Medications at Time of Discharge aspirin 81 mg chewable tablet Take 1 tablet (81 mg total) by mouth daily citalopram (CeleXA) 40 mg tablet Take 1 tablet (40 mg total) by mouth every morning cyanocobalamin/f olic acid (vitamin O92-cwhfm acid) 2,500-400 mcg tablet,disintegr ating 05/14/1969 cyclobenzaprine (FLEXERIL) 10 mg tablet Take 1 tablet (10 mg total) by mouth 2 (two) times a day empagliflozin (JARDIANCE) 25 mg tabletIndication s:type 2 diabetes mellitus Take 1 tablet (25 mg total) by mouth daily enalapril (VASOTEC) 5 mg tablet Take 1 tablet (5 mg total) by mouth daily fluticasone propion-salmeter ol (ADVAIR DISKUS) 250-50 mcg/dose diskus inhaler Inhale 1 puff 2 (two) times a day Rinse mouth with water after use. Do not swallow. fluticasone propionate (FLONASE) 50 mcg/actuation nasal spray Administer 2 sprays into each nostril nightly levothyroxine (SYNTHROID) 50 mcg tablet Take 1 tablet (50 mcg total) by mouth new home sales consultant before breakfast montelukast (SINGULAIR) 10 mg tablet Take 1 tablet (10 mg total) by mouth daily naproxen sodium 220 mg capsule ALEVE CAPSULE 05/14/1969 nortriptyline (PAMELOR) 75 mg capsule Take 1 capsule (75 mg total) by mouth 2 (two) times a day omeprazole (PriLOSEC) 20 mg capsule Take 1 capsule (20 mg total) by mouth daily before breakfast Starfish 360 ULTRA BLUE TEST STRIP strip USE TO TEST QD 0 09/13/2017 KageraUCH ULTRA2 kit USE TO TEST QD 0 09/13/2017 pioglitazone (ACTOS) 30 mg tabletIndication s:type 2 diabetes mellitus Take 1 tablet (30 mg total) by mouth daily rosuvastatin (CRESTOR) 40 mg tablet Take 1 tablet (40 mg total) by mouth nightly 06/04/2020 albuterol (PROVENTIL,MAX PATI) 1.25 mg/3 mL nebulizer [...] a day 1 divalproex ER (DEPAKOTE ER) 500 mg 24 hr tabletIndication s:epilepsy Take 2 tablets (1,000 mg total) by mouth 2 (two) times a day 360 tablet 3 05/04/2020 1 ergocalciferol (VITAMIN D) 50,000 unit capsule [...] as needed for pain 1 topiramate (TOPAMAX) 100 mg tablet Take 1 tablet (100 mg total) by mouth nightly [take with 200mg tab at HS. Total HS dose: 300mg] 90 tablet 3 05/04/2020 1 topiramate (TOPAMAX) 200 mg tablet Take 1 tablet (200 mg total) by mouth 2 (two) times a day 180 tablet 3 05/04/2020 1 traMADol (ULTRAM) 50 mg tablet Take 50 mg by mouth every 6 (six) hours as needed for pain 2 documented as of this encounter Discharge Disposition Disposition Code Departure Means Destination Discharge to home or self care documented in this encounter Plan of Treatment Not on file documented as of this encounter Visit Diagnoses Not on filedocumented in this encounter Care Teams Public Improvement Inspector Relationship Specialty Start Date End Date Sergey Wilson MD PCP - General 09/20/16 documented as of this encounter
--- OUTSIDE RECORDS SUMMARY | 2024-05-24 02:07 | XMS_ITS | Encounter Summary ---
Author Organization [facility] Healthcare Address [address] [place] [address] Care Team Providers Care Water Tester Name Role Phone Sergey Wilson MD Primary Care Provider [phone] Encounter Details Date Type Department Care Team (Latest Contact Info) Description 08/29/2020 6:43 PM CDT - 08/29/2020 11:59 PM CDT Hospital Encounter [facility] Diagnostic Imaging [address] [place] [address] Discharge Disposition: Discharge to home or self care Social History Tobacco Use Types Packs/Day Years Used Date Smoking Tobacco: Former Smokeless Tobacco: Never Alcohol Use Standard Drinks/Week Comments No 0 (1 standard drink = 0.6 oz pur e alcohol) Sex and Gender Information Value Date Recorded Sex Assigned at Not on file 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 Gender Identity Not on file Sexual Orientation Not on file documented as of this encounter Medications at Time of Discharge aspirin 81 mg chewable tablet Take 1 tablet (81 mg total) by mouth daily citalopram (CeleXA) 40 mg tablet Take 1 tablet (40 mg total) by mouth every morning cyanocobalamin/f olic acid (vitamin D43-btqnm acid) 2,500-400 mcg tablet,disintegr ating 05/14/1969 cyclobenzaprine [...] 1 tablet (50 mcg total) by mouth meters superintendent before breakfast montelukast (SINGULAIR) 10 mg tablet [...] mg total) by mouth daily before breakfast Bromium ULTRA BLUE TEST STRIP strip USE TO TEST QD 0 09/13/2017 LearnVestUCH ULTRA2 kit USE TO TEST QD 0 [...] by mouth nightly [with 500mg tablet. Total yqjf=907hb at bedtime only] 30 tablet 8 07/30/2020 [...] Diagnosis Comments XR CHEST 1 VIEW ED 08/29/2020 6:56 PM CDT documented in this encounter Results * XR Chest 1 Vw Portable (08/29/2020 [...] Simpson MD IMG XR PROCEDURES Final Result documented in this encounter Visit Diagnoses Not on filedocumented in this encounter Care Teams Water Tester Relationship Specialty Start Date End Date Sergey Wilson MD PCP - General 09/20/16 documented as of this encounter
--- OUTSIDE RECORDS SUMMARY | 2024-05-24 02:07 | XMS_ITS | Encounter Summary ---
Author Organization [facility] Healthcare Address [address] [place] [address] Care Team Providers Care Animal Rehabilitator Name Role Phone Sergey Wilson MD Primary Care Provider [phone] Encounter Details Date Type Department Care Team (Latest Contact Info) Description 09/20/2020 9:15 PM CDT - 09/20/2020 11:59 PM CDT Hospital Encounter [facility] [address] [place] [address] Discharge Disposition: Discharge to home or self care Social History Tobacco Use Types Packs/Day Years Used Date Smoking Tobacco: Former Smokeless Tobacco: Never Alcohol Use Standard Drinks/Week Comments No 0 (1 standard drink = 0.6 oz pur e alcohol) Sex and Gender Information Value Date Recorded Sex Assigned at Not on file 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 Gender Identity Not on file Sexual Orientation Not on file documented as of this encounter Medications at Time of Discharge aspirin 81 mg chewable tablet Take 1 tablet (81 mg total) by mouth daily citalopram (CeleXA) 40 mg tablet Take 1 tablet (40 mg total) by mouth every morning cyanocobalamin/f olic acid (vitamin B20-cuyyy acid) 2,500-400 mcg tablet,disintegr ating 05/14/1969 cyclobenzaprine [...] 1 tablet (50 mcg total) by mouth section repairer before breakfast montelukast (SINGULAIR) 10 mg tablet [...] mg total) by mouth daily before breakfast ProvenUCH ULTRA BLUE TEST STRIP strip USE TO TEST QD 0 09/13/2017 ProvenUCH ULTRA2 kit USE TO TEST QD 0 [...] by mouth nightly [with 500mg tablet. Total ziqc=221nr at bedtime only] 30 tablet 8 07/30/2020 1 divalproex ER (DEPAKOTE ER) 500 mg 24 hr tabletIndication s:epilepsy Take 2 tablets (1,000 mg total) by mouth daily AND 1 tablet (500 mg total) nightly. [Take 250mg tab with bedtime dose only for total dose of 750mg at bedtime]. 90 tablet 6 07/30/2020 1 topiramate (TOPAMAX) 200 mg tablet Take [...] on filedocumented in this encounter Care Teams Animal Rehabilitator Relationship Specialty Start Date End Date Sergey Wilson MD PCP - General 09/20/16 documented as of this encounter
--- OUTSIDE RECORDS SUMMARY | 2024-05-24 02:07 | XMS_ITS | Encounter Summary ---
Author Organization [facility] Address [address] [place] [address] Phone Care Team Providers Care Assembly Line Upholsterer Name Role Phone Sergey Wilson MD Primary Care Provider [phone] Encounter Details Date Type Department Care Team (Late st Contact Info) Description 08/23/2020 Telephone [facility] Epilepsy [address] [place] [address] [place] [id number] Louise Mack RN Social History Tobacco Use Types Packs/Day Years Used Date Smoking Tobacco: Former Smokeless Tobacco: Never Alcohol Use Standard Drinks/Week Comments No 0 (1 standard drink = 0.6 oz pur e alcohol) Sex and Gender Information Value Date Recorded Sex Assigned at Not on file 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 Wilson office to discuss patient. * Telephone Encounter - Louise Mack RN - 08/23/2020 10:54 AM CDT Spoke with patient. Informed him that Dr. Jose would like to keep at the current regimen for at least another month and then reassess. Asked patient if he has spoken to Dr. Wilson, pcp, regarding fallsand he does not think that Dr. Wilson has any idea why he is falling. I will reach out to Dr. Wilson office to attempt to get office notes. * Telephone Encounter - Clifton Jose MD PhD - 08/23/2020 10:30 AM CDT Before I make any more changes in his medication, please get an update on what his PMD evaluation has revealed about the etiology of his falls. I am inclined to give the current doses more time. He entered the 07/2020 admission on VPA ER 1000 mg bid. 500/750 mg is still a decent reduction. Let's give it another month, and if still doing well, then consider VPA ER 500 mg bid. No change to TPM yet as we need to do one step at a time. Jordan * Telephone Encounter - Louise Mack RN - 08/23/2020 8:12 AM CDT Patient called to give an update on how he was doing since decreasing his depakote. Currently he is taking Depakote ER 500 mg in am and 750 mg depakote ER in pm. He states that he is currently doing well on this dosage. He has had a couple more falls, but thinks they are related to stress and not related to any seizure like activity. Patient would like to know if Dr. Jose would like him to cut his depakote ER down even further to 500 mg in am and 500 mg in pm? He would also like to know if there is room to decrease his TPM? He is currently taking 200 mg bid.Prabhakar documented in this encounter Plan of Treatment Not on file documented as of this encounter Visit Diagnoses Not on filedocumented in this encounter Care Teams Assembly Line Upholsterer Relationship Specialty Start Date End Date Sergey Wilson MD PCP - General 09/20/16 documented as of this encounter
--- OUTSIDE RECORDS SUMMARY | 2024-05-24 02:07 | XMS_ITS | Encounter Summary ---
Author Organization [facility] Healthcare Address [address] [place] [address] Care Team Providers Care Welding Setter Name Role Phone Sergey Wilson MD Primary Care Provider [phone] Encounter Details Date Type Department Care Team (Latest Contact Info) Description 07/28/2020 12:42 PM CDT - 07/28/2020 11:59 PM CDT Hospital Encounter [facility] [address] [place] [address] Discharge Disposition: Discharge to home or self care Social History Tobacco Use Types Packs/Day Years Used Date Smoking Tobacco: Former Smokeless Tobacco: Never Alcohol Use Standard Drinks/Week Comments No 0 (1 standard drink = 0.6 oz pur e alcohol) Sex and Gender Information Value Date Recorded Sex Assigned at Not on file 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 Gender Identity Not on file Sexual Orientation Not on file documented as of this encounter Medications at Time of Discharge aspirin 81 mg chewable tablet Take 1 tablet (81 mg total) by mouth daily citalopram (CeleXA) 40 mg tablet Take 1 tablet (40 mg total) by mouth every morning cyanocobalamin/f olic acid (vitamin Q12-ufghy acid) 2,500-400 mcg tablet,disintegr ating 05/14/1969 cyclobenzaprine [...] 1 tablet (50 mcg total) by mouth 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 Total yufj=377vh at bedtime only] 30 tablet 8 07/30/2020 1 divalproex ER (DEPAKOTE ER) 500 mg 24 hr tabletIndication s:epilepsy Take 2 tablets (1,000 mg total) by mouth daily AND 1 tablet (500 mg total) nightly. 90 tablet 6 07/26/2020 1 divalproex ER (DEPAKOTE ER) 500 mg [...] on filedocumented in this encounter Care Teams Welding Setter Relationship Specialty Start Date End Date Sergey Wilson MD PCP - General 09/20/16 documented as of this encounter
--- OUTSIDE RECORDS SUMMARY | 2024-05-24 02:07 | XMS_ITS | Encounter Summary ---
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 Gender Identity Not on file Sexual Orientation Not on file documented as of this encounter Medications at Time of Discharge aspirin 81 mg chewable tablet Take 1 tablet (81 mg total) by mouth daily citalopram (CeleXA) 40 mg tablet Take 1 tablet (40 mg total) by mouth every morning cyanocobalamin/f olic acid (vitamin Z13-pwrpw acid) 2,500-400 mcg tablet,disintegr ating 05/14/1969 cyclobenzaprine [...] 1 tablet (50 mcg total) by mouth 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 Total fman=300ne at bedtime only] 30 tablet 8 07/30/2020 [...] on filedocumented in this encounter Care Teams Sales Hunter Relationship Specialty Start Date End Date Sergey Wilson MD PCP - General 09/20/16 documented as of this encounter
--- OUTSIDE RECORDS SUMMARY | 2024-05-24 02:07 | XMS_ITS | Encounter Summary ---
Author Organization [facility] Address [address] [place] [address] Phone Care Team Providers Care Locate Technician Name Role Phone Sergey Wilson MD Primary Care Provider [phone] Encounter Details Date Type Department Care Team (Late st Contact Info) Description 07/30/2020 Telephone [facility] Epilepsy [address] [facility] [address] [place] [address] [place] [address] Jackie Guerrero NP [address] [place] [address] Social History Tobacco Use Types Packs/Day Years Used Date Smoking Tobacco: Former Smokeless Tobacco: Never Alcohol Use Standard Drinks/Week Comments No 0 (1 standard drink = 0.6 oz pur e alcohol) Sex and Gender Information Value Date Recorded Sex Assigned at Not on file 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 * Telephone Encounter - Jackie Guerrero NP - 07/30/2020 4:06 PM CDT Schedule F/U with Dr. Jose in clinic in about 6 MOS. PIERRE Mejia documented in this encounter Plan of Treatment Not on file documented as of this encounter Visit Diagnoses Not on filedocumented in this encounter Care Teams Locate Technician Relationship Specialty Start Date End Date Sergey Wilson MD PCP - General 09/20/16 documented as of this encounter
--- OUTSIDE RECORDS SUMMARY | 2024-05-24 02:07 | XMS_ITS | Encounter Summary ---
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 at 07/25/20 0609 ??? topiramate (TOPAMAX) tablet 200 mg 200 mg oral BID Day, Clifton Ortega MD PhD 200 mg at 07/25/202045 ??? umeclidinium (INCRUSE ELLIPTA) 62.5 mcg/actuation inhaler 62.5 mcg 1 puff inhalation Daily Day,Clifton Ortega MD PhD 62.5 mcg at 07/25/20 0905 Objective Vitals: 24hr Min/Max: Temp Min: 36.2 ??C (97.2 ??F) Max: 36.5 ??C (97.7 ??F) Pulse Min: 59 Max: 75 BP Min: 113/68 Max: 128/76 Resp Min: 16 Max: 17 SpO2 Min: 83 % Max: 99 % Most Recent: Vitals: 07/25/20 2300 BP: 113/68 Pulse: 59 Resp: 16 Temp: 36.2 ??C (97.2 ??F) SpO2: 98% Physical Exam Constitutional: Comfortable and mood appropriate. Up to chair. Neurologic: Mental status- Alert and oriented x 4. Language- Fluent speech. Follows commands. Cranial nerves II-XII- Extraocular movements full without nystagmus. Face is symmetric with normal strength. No dysarthria. Fine finger movements are good. I/O last 2 completed shifts: In: 200 [P.O.:200] Out: - No intake/output data recorded. Lab/Radiology/Diagnostic Review: Recent Results (from the past 24 hour(s)) POCT glucose Collection Time: 07/25/20 8:02 AM Result Value Ref Range Glucose, POC 128 70 - 199 mg/dL POCT glucose Collection Time: 07/25/20 12:02 PM Result Value Ref Range Glucose, POC 108 70 - 199 mg/dL POCT glucose Collection Time: 07/25/20 4:51 PM Result Value Ref Range Glucose, POC 123 70 - 199 mg/dL Assessment/Plan Principal Problem: Recurrent seizures (CMS/HCC) This patient will be hooked up to [...] the patient. The vEEG will be reviewed. Active Problems: Diabetes (CMS/HCC) Continue SSI, oral agents. Hypertension Continue home medications Asthma Per [facility] Protocol and home meds Hypothyroidism Continue home medications Jackie Guerrero NP Cosigned by Danial Hightower III, MD at 07/26/2020 8:29 PM CDT Associated attestation - Danial Hightower III, MD - 07/26/2020 8:29 PM CDT I have seen and examined the patient on 07/26/20 in conjunction with the non- physician provider. I personally reviewed the Video/EEG tracing and video, which showed mild intermittent temporal slowing. I discussed the following plan with the patient. He will follow-up with antiepileptic medication treatment, as revised during his hospital stay. We reviewed the basic concepts of epileptic, and nonepileptic seizures. The patient was receptive to the idea his nonepileptic events could be related to psychosocial stressors. He will be discharged from video EEG. He will be discharged home today. * Clifton Jose MD PhD - 07/25/2020 1:40 PM CDT Video-EEG Daily Epoch Report Patient Name: [facility] Medical Record Number (MRN): [id number] [facility] Record: [id number] Date of (): 1965 Start Time: 07/24/2020 1:39:30 PM End Time: 07/25/2020 1:39:30 PM Introduction: The patient is a 55 y.o. male with a history of asthma, s/p pacemaker, diabetes, depression, back pain, epilepsy s/p right selective amygdalohippocampectomy (2012), who presented with LOC events concerning for seizures. EEG was performed to evaluate for seizures. This is a report of continuous video-EEG monitoring. High definition digital video and digital EEG were recorded continuously with a [employer] EEG acquisition system. This was a 32 [...] with 2-4 Hz polymorphic frontotemporal delta activity. Asthe record progressed, stage II sleep was identified by vertex waves, sleep spindles and K-complexes. During the recording, there were changes consistent with light and deep sleep stages. Hyperventilation was not performed. Photic strobe stimulation elicited no abnormalities.There was an intermittent prominence of theta and delta range activities over the right temporal region. Faster frequencieswere better seen over the right hemisphere. There were no epileptiform abnormalities. The EKG showed a normal rate and rhythm. Daily Video-EEG Description: Epoch 5: 07/24/2020 1:39:30 PM - 07/25/2020 1:39:30 PM The interictal EEG was as described above. Photic strobe stimulation was performed and elicited no abnormalities. There were one false and one real clinical events recorded. At 2:10 PM on 07/24. The long urgent care technician found the patient had possible something wrong and called code teal . The patient was scared while the staff came in and said hello . He initially had no response to staff's questions, then he could give the name and recall the color seconds later. He said he did not have something wrong and he had no button pushing. There was no significant EEG changewith this episode beyond EMG and movement artifact. Event #3 occurred at 12:08 PM on 07/22. The patient had activity arrest with remaining head drop while he was sitting in the chair after his lunch. He pressed the event button after approximately 1 minute. He could not answer questions while the staff came in, but he was able to code teal well seconds later. He also reported there was ring noise in his ears during the event. There was no significant EEG change with this event beyond EMG and movement artifact. Interpretation: No seizures were captured during the recording. The noted clinical event, which was typical, did not have an EEG correlate. This is an abnormal awake and asleep Video/EEG due to 1) right temporal slowing. Focal slowing indicates focal [...] Signing Attending: Clifton Jose MD PhD * Osmani Marr MD - 07/25/2020 6:10 AM CDT Neurology Daily Progress Note Subjective Chief complaint of seizure. Interval History: He reports no events overnight. NAEON Current Facility-Administered Medications Medication Dose Route Frequency Provider Last Rate Last Admin albuterol HFA (PROVENTIL HFA,VENTOLIN HFA,PROAIR HFA) 90 mcg/actuation inhaler 2 puff 2 puff inhalation Q4H PRN (RT) Jackie Guerrero NP 2 puff at 07/23/202027 aspirin chewable tablet 81 mg 81 mg oral Daily Jackie Guerrero NP 81 mg at 07/24/20821 bacitracin-polymyxin B (POLYSPORIN) 500-10,000 unit/gram ointment tube 1 application 1 application topical BID Jackie Guerrero NP 1 application at 07/24/202122 citalopram (CeleXA) tablet 40 mg 40 mg oral QAM Jackie Guerrero NP 40 mg at 07/24/20821 cyclobenzaprine (FLEXERIL) tablet 10 mg 10 mg oral BID Jackie Guerrero NP 10 mg at 03/13/21 2118 dextrose (GLUTOSE) 40 % gel 15 g 15 g oral Q15 Min PRN Jackie Guerrero NP Or dextrose (D10W) 10% bolus 250 mL 250 mL intravenous Q15 Min PRN Jackie Guerrero NP diphenhydrAMINE (BENADRYL) tab/cap 25 mg 25 mg oral QID PRN Jackie Guerrero NP 25 mg at 07/24/202035 divalproex ER (DEPAKOTE ER) 24 hour tablet 750 mg 750 mg oral BID Analia Freeman MD 750mg at 07/24/202117 enalapril (VASOTEC) tablet 5 mg 5 mg oral Daily Jackie Guerrero NP 5 mg at 07/24/20821 fenofibrate nanocrystallized (TRICOR) tablet 145 mg 145 mg oral Daily Jackie Guerrero NP 145 mg at 07/24/20821 fluticasone furoate-vilanteroL (BREO ELLIPTA) 200-25 mcg/dose inhaler 1 puff 1 puff inhalation Daily Day, Clifton Ortega MD PhD 1 puff at 07/24/20822 fluticasone propionate (FLONASE) 50 mcg/actuation nasal spray 2 spray 2 spray each nostril Nightly Jackie Guerrreo NP 2 spray at 07/23/202026 glucagon injection 1 mg 1 mg intramuscular Q30 Min PRN Jackie Guerrero NP ibuprofen (ADVIL,MOTRIN) tablet 800 mg 800 mg oral TID PRN Jackie Guerrero NP insulin lispro (HumaLOG, ADMELOG) injection 1-2 Units 1-2 Units subcutaneous TID with meals Jackie Guerrero NP levothyroxine (SYNTHROID) tablet 50 mcg 50 mcg oral Daily - 0600 Jackie Guerrero NP 50 mcg at07/24/20623 montelukast (SINGULAIR) tablet 10 mg 10 mg oral Daily Jackie Guerrero NP 10 mg at 07/24/20821 nortriptyline (PAMELOR) capsule 75 mg 75 mg oral BID Jackie Guerrero NP 75 mg at 07/24/202118 omega-3 fatty acids (LOVAZA) capsule 2 g 2 g oral BID Jackie Guerrero NP 2 g at 07/24/202118 pantoprazole DR (PROTONIX) extended release tablet 40 mg 40 mg oral Daily Jackie Guerrero NP 40 mg at 07/24/20821 pioglitazone (ACTOS) tablet 30 mg 30 mg oral Daily Jackie Guerrero NP 30 mg at 07/24/20820 rosuvastatin (CRESTOR) tablet 40 mg 40 mg oral Nightly Jackie Guerrero NP 40 mg at 07/24/202118 sodium chloride 0.9% flush 0.5-20 mL 0.5-20 mL intra-catheter Q8H HUGO Jackie Guerrero NP sodium chloride 0.9% flush 0.5-20 mL 0.5-20 mL intra-catheter PRN Jackie Guerrero NP 10 mL at 07/25/20 0609 topiramate (TOPAMAX) tablet 200 mg 200 mg oral BID Day, Clifton Ortega MD PhD 200 mg at 07/24/202119 umeclidinium (INCRUSE ELLIPTA) 62.5 mcg/actuation inhaler 62.5 mcg 1 puff inhalation Daily Day, Clifton Ortega MD PhD 62.5 mcg at 07/24/20 0823 Objective Vitals: 24hr Min/Max: Temp Min: 36.8 ??C (98.2 ??F) Max: 36.9 ??C (98.4 ??F) Pulse Min: 64 Max: 72 BP Min: 109/69 Max: 119/71 Resp Min: 15 Max: 18 SpO2 Min: 99 % Max: 99 % Most Recent: Vitals: 07/24/20 2345 BP: 119/71 Pulse: 64 Resp: 15 Temp: 36.8 ??C (98.2 ??F) SpO2: Physical Exam Constitutional: Comfortable and mood appropriate. Up to chair. Neurologic: Mental status- Alert and oriented x 4. Language- Fluent speech. Follows commands. Cranial nerves II-XII- Extraocular movements full without nystagmus. Face is symmetric with normal strength. No dysarthria. Fine finger movements are good. Sensation- intact to light touch. No intake/output data recorded. I/O this shift: In: 200 [P.O.:200] Out: - Lab/Radiology/Diagnostic Review: Recent Results (from the past 24 hour(s)) POCT glucose Collection Time: 07/24/20 7:08 AM Result Value Ref Range Glucose, POC 137 70 - 199 mg/dL POCT glucose Collection Time: 07/24/20 11:15 AM Result Value Ref Range Glucose, POC 117 70 - 199 mg/dL POCT glucose Collection Time: 07/24/20 4:43 PM Result Value Ref Range Glucose, POC 126 70 - 199 mg/dL POCT glucose Collection Time: 07/24/20 9:15 PM Result Value Ref Range Glucose, POC 132 70 - 199 mg/dL Assessment/Plan Principal Problem: Recurrent seizures (CMS/HCC) This patient will be hooked up to [...] the patient. The vEEG will be reviewed. Active Problems: Diabetes (CMS/HCC) Continue SSI, oral agents. Hypertension Continue home medications Asthma Per [facility] Protocol and home meds Hypothyroidism Continue home medications Osmani Marr MD Cosigned by Clifton Jose MD PhD at 07/25/2020 10:44 PM CDT Associated attestation - Clifton Jose MD PhD - 07/25/2020 10:44 PM CDT I have seen and examined the patient on 07/25/20. I agree with the findings and plan of care as documented in the resident's/fellow's note., as discussed with the resident/fellow., and with the following modifications: The patient is a 55 YO M with a history of right temporal lobe epilepsy with surface EEG-negative auras with resolution of auras/seizures following epilepsy surgery. 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 His medical course has been complicated by cardiac and respiratory issues. He has a pacemaker. He has been having episodes of falling with loss of awareness and amnesia. He tellsme today that these are mostly from a seated position, such as when he is sitting at a restaurant, but has happened while standing. I personally reviewed the Video/EEG tracing and video, which revealed an abnormal interictal study due to right temporal slowing and one typical event with no EEG correlate. I discussed the following plan with the patient. Diagnosis: Spells R56.9 1. Video/EEG for characterization and to guide subsequent treatment. We have discussed that EEG candetect seizures, syncope, and non-epileptic events, which have different patterns. We have discussed that he has a 1-channel EKG as part of his Video/EEG. So far the EKG appears adequate. We discussed that his pacemaker should not allow his heart rate to be the reason for passing out, but other issues such as blood pressure, blood sugar, and blood oxygenation could be considered if he is shown dhara passing out. Though there was no classic presyncope/syncope pattern on EEG with the first two events, there was a minor amount of generalized slowing, likely drowsiness, but I will have staff get v itals with all further events, especially to measure blood pressure. 2. Checked orthostatics, which were normal. 3. Wean VPA from home dose of 1000 mg bid to 1000 mg QAM and 500 mg QPM. With changes done yesterday, he will receive 750 mg QAM and 500 mg QPM today. 4. Weaned TPM from 300/200 mg to 200 mg bid Sunday morning. I had been weaning TPM as an outpatientdue to seizure freedom after epilepsy surgery with 200 mg bid being our goal by 04/2020, but spellsdelayed that until this admission. 5. S/p photic stimulation as a provocative procedure Sunday. Repeat photic stimulation as a provocative procedure Sunday to try to elicit seizures/spells. photic stimulation as a provocative procedure again today (Sunday) to try to elicit seizures/spells. 6. S/p sleep deprivation as a provocative procedure Sunday to try to elicit seizures/spells (but could only stay awake until ~11 PM reportedly). Repeated sleep deprivation as a provocative procedure (Sat-Sun) to try to elicit seizures/spells. * Clifton Jose MD PhD - 07/24/2020 1:46 PM CST Video-EEG Daily Epoch Report Patient Name: [facility] Medical Record Number (MRN): [id number] [facility] Record: [id number] Date of (): 1965 Start Time: 07/23/2020 1:39:30 PM End Time: 07/24/2020 1:39:30 PM Introduction: The patient is a 55 y.o. male with a history of asthma, s/p pacemaker, diabetes, depression, back pain, epilepsy s/p right selective amygdalohippocampectomy (2012), who presented with LOC events concerning for seizures. EEG was performed to evaluate for seizures. This is a report of continuous video-EEG monitoring. High definition digital video and digital EEG were recorded continuously with a [employer] EEG acquisition system. This was a 32 [...] with 2-4 Hz polymorphic frontotemporal delta activity. Asthe record progressed, stage II sleep was identified by vertex waves, sleep spindles and K-complexes. During the recording, there were changes consistent with light and deep sleep stages. Hyperventilation was not performed. Photic strobe stimulation elicited no abnormalities.There was an intermittent prominence of theta and delta range activities over the right temporal region. Faster frequencieswere better seen over the right hemisphere. There were no epileptiform abnormalities. The EKG showed a normal rate and rhythm. Daily Video-EEG Description: Epoch 4: 07/23/2020 1:39:30 PM - 07/24/2020 1:39:30 PM The interictal EEG was as described above. Photic strobe stimulation was performed and elicited no abnormalities. There were no clinical or electrographic events. Interpretation: No seizures were captured during the recording. This is an abnormal awake and asleep Video/EEG due to 1) right temporal slowing. Focal slowing indicates focal [...] intent. Signing Attending: Clifton Jose MD PhD ITURE RESTORER ITURE RESTORER * Osmani Marr MD - 07/24/2020 12:32 PM CST Neurology Daily Progress Note Subjective Chief complaint of seizure. Interval History: He reports no events overnight. He is sitting in his chair and conversational this am. NAEON Current Facility-Administered Medications Medication Dose Route Frequency Provider Last Rate Last Admin ??? albuterol HFA (PROVENTIL HFA,VENTOLIN HFA,PROAIR HFA) 90 mcg/actuation inhaler 2 puff 2 puff inhalation Q4H PRN (RT) Jackie Guerrero NP 2 puff at 07/23/202027 ??? aspirin chewable tablet 81 mg 81 mg oral Daily Jackie Guerrero NP 81 mg at 07/24/20821 ??? bacitracin-polymyxin B (POLYSPORIN) 500-10,000 unit/gram ointment tube 1 application 1 application topical BID Jackie Guerrero NP 1 application at 07/24/20822 ??? citalopram (CeleXA) tablet 40 mg 40 mg oral QAM Jackie Guerrero NP 40 mg at 07/24/20821 ??? cyclobenzaprine (FLEXERIL) tablet 10 mg 10 mg oral BID Jackie Guerrero NP 10 mg at 07/24/20821 ??? dextrose (GLUTOSE) 40 % gel 15 g 15 g oral Q15 Min PRN Jackie Guerrero NP Or ??? dextrose (D10W) 10% bolus 250 mL 250 mL intravenous Q15 Min PRN Jackie Guerrero NP ??? diphenhydrAMINE (BENADRYL) tab/cap 25 mg 25 mg oral QID PRN Jackie Guerrero NP ??? divalproex ER (DEPAKOTE ER) 24 hour tablet 1,000 mg 1,000 mg oral BID Jackie Guerrero NP 1,000 mg at 07/24/20821 ??? enalapril (VASOTEC) tablet 5 mg 5 mg oral Daily aJckie Guerrero NP 5 mg at 07/24/20821 ??? fenofibrate nanocrystallized (TRICOR) tablet 145 mg 145 mg oral Daily Jackie Guerrero NP 145 mg at 07/24/20821 ??? fluticasone furoate-vilanteroL (BREO ELLIPTA) 200-25 mcg/dose inhaler 1 puff 1 puff inhalation Daily Day, Clifton Ortega MD PhD 1 puff at 07/24/20822 ??? fluticasone propionate (FLONASE) 50 mcg/actuation nasal spray 2 spray 2 spray each nostril Nightly Jackie Guerrero NP 2 spray at 07/23/202026 ??? glucagon injection 1 mg 1 mg intramuscular Q30 Min PRN Jackie Guerrero NP ??? ibuprofen (ADVIL,MOTRIN) tablet 800 mg 800 mg oral TID PRN Jackie Guerrero NP ??? insulin lispro (HumaLOG, ADMELOG) injection 1-2 Units 1-2 Units subcutaneous TID with meals Jackie Guerrero NP ??? levothyroxine (SYNTHROID) tablet 50 mcg 50 mcg oral Daily - 0600 Jackie Guerrero NP 50 mcg at 07/24/20623 ??? montelukast (SINGULAIR) tablet 10 mg 10 mg oral Daily Jackie Guerrero NP 10 mg at 07/24/20821 ??? nortriptyline (PAMELOR) capsule 75 mg 75 mg oral BID Jackie Guerrero NP 75 mg at ??? omega-3 fatty acids (LOVAZA) capsule 2 g 2 g oral BID Jackie Guerrero NP 2 g at 07/24/20821 ??? pantoprazole DR (PROTONIX) extended release tablet 40 mg 40 mg oral Daily Jackie Guerrero NP 40 mg at 07/24/20821 ??? pioglitazone (ACTOS) tablet 30 mg 30 mg oral Daily Jackie Guerrero NP 30 mg at 07/24/20820 ??? rosuvastatin (CRESTOR) tablet 40 mg 40 mg oral Nightly Jackie Guerrero NP 40 mg at 07/23/202017 ??? sodium chloride 0.9% flush 0.5-20 mL 0.5-20 mL intra-catheter Q8H HUGO Jackie Guerrero NP ??? sodium chloride 0.9% flush 0.5-20 mL 0.5-20 mL intra-catheter PRN Jackie Guerrero NP ??? topiramate (TOPAMAX) tablet 200 mg 200 mg oral BID Day, Clifton Ortega MD PhD 200 mg at 07/24/20821 ??? umeclidinium (INCRUSE ELLIPTA) 62.5 mcg/actuation inhaler 62.5 mcg 1 puff inhalation Daily Day,Clifton Ortega MD PhD 62.5 mcg at 07/24/20822 Objective Vitals: 24hr Min/Max: Temp Min: 36.4 ??C (97.5 ??F) Max: 36.9 ??C (98.4 ??F) Pulse Min: 70 Max: 70 BP Min: 109/69 Max: 120/66 Resp Min: 18 Max: 18 SpO2 Min: 99 % Max: 100 % Most Recent: Vitals: 07/24/20730 BP: 109/69 Pulse: 70 Resp: 18 Temp: 36.9 ??C (98.4 ??F) SpO2: 99% Physical Exam Constitutional: Comfortable and mood appropriate. Up to chair. Neurologic: Mental status- Alert and oriented x 4. Language- Fluent speech. Follows commands. Cranial nerves II-XII- Extraocular movements full without nystagmus. Face is symmetric with normal strength. No dysarthria. Fine finger movements are good. Sensation- intact to light touch. No intake/output data recorded. No intake/output data recorded. Lab/Radiology/Diagnostic Review: Recent Results (from the past 24 hour(s)) POCT glucose Collection Time: 07/23/20 4:39 PM Result Value Ref Range Glucose, POC 174 70 - 199 mg/dL POCT glucose Collection Time: 07/23/20 8:29 PM Result Value Ref Range Glucose, POC 154 70 - 199 mg/dL POCT glucose Collection Time: 07/24/20 7:08 AM Result Value Ref Range Glucose, POC 137 70 - 199 mg/dL POCT glucose Collection Time: 07/24/20 11:15 AM Result Value Ref Range Glucose, POC 117 70 - 199 mg/dL Assessment/Plan Principal Problem: Recurrent seizures (CMS/HCC) This patient will be hooked up to [...] the patient. The vEEG will be reviewed. Active Problems: Diabetes (CMS/HCC) Continue SSI, oral agents. Hypertension Continue home medications Asthma Per [facility] Protocol and home meds Hypothyroidism Continue home medications Osmani Marr MD Cosigned by Clifton Jose MD PhD at 07/24/2020 5:21 PM FURNITURE RESTORER ITURE RESTORER ITURE RESTORER Associated attestation - Clifton Jose MD PhD - 07/24/2020 5:21 PM FURNITURE RESTORER I have seen and examined the patient on 07/24/20. I agree with the findings and plan of care as documented in the resident's/fellow's note., as discussed with the resident/fellow., and with the following modifications: The patient is a 55 YO M with a history of right temporal lobe epilepsy with surface EEG-negative auras with resolution of auras/seizures following epilepsy surgery. 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 His medical course has been complicated by cardiac and respiratory issues. He has a pacemaker. He has been having episodes of falling with loss of awareness and amnesia. He tellsme today that these are mostly from a seated position, such as when he is sitting at a restaurant, but has happened while standing. I personally reviewed the Video/EEG tracing and video, which revealed an abnormal interictal study due to right temporal slowing and no events. I discussed the following plan with the patient. Diagnosis: Spells R56.9 1. Video/EEG for characterization and to guide subsequent treatment. We have discussed that EEG candetect seizures, syncope, and non-epileptic events, which have different patterns. We have discussed that he has a 1-channel EKG as part of his Video/EEG. So far the EKG appears adequate. We discussed that his pacemaker should not allow his heart rate to be the reason for passing out, but other issues such as blood pressure, blood sugar, and blood oxygenation could be considered if he is shown dhara passing out. Though there was no classic presyncope/syncope pattern on EEG with the first two events, there was a minor amount of generalized slowing, likely drowsiness, but I will have staff get v itals with all further events, especially to measure blood pressure. 2. Checked orthostatics, which were normal. 3. Wean VPA from home dose of 1000 mg bid to 750 mg bid. 4. Weaned TPM from 300/200 mg to 200 mg bid Sunday morning. I had been weaning TPM as an outpatientdue to seizure freedom after epilepsy surgery with 200 mg bid being our goal by 04/2020, but spellsdelayed that until this admission. 5. S/p photic stimulation as a provocative procedure Sunday. Repeat photic stimulation as a provocative procedure today Sunday to try to elicit seizures/spells 6. S/p sleep deprivation as a provocative procedure Sunday to try to elicit seizures/spells (but could only stay awake until ~11 PM reportedly). Repeat sleep deprivation as a provocative procedure tonight (Sat-Sun) to try to elicit seizures/spells. * Clifton Jose MD PhD - 07/23/2020 2:06 PM CST Video-EEG Daily Epoch Report Patient Name: [facility] Medical Record Number (MRN): [id number] [facility] Record: [id number] Date of (): 1965 Start Time: 07/22/2020 1:39:30 PM End Time: 07/23/2020 1:39:30 PM Introduction: The patient is a 55 y.o. male with a history of asthma, s/p pacemaker, diabetes, depression, back pain, epilepsy s/p right selective amygdalohippocampectomy (2012), who presented with LOC events concerning for seizures. EEG was performed to evaluate for seizures. This is a report of continuous video-EEG monitoring. High definition digital video and digital EEG were recorded continuously with a [employer] EEG acquisition system. This was a 32 [...] with 2-4 Hz polymorphic frontotemporal delta activity. Asthe record progressed, stage II sleep was identified by vertex waves, sleep spindles and K-complexes. During the recording, there were changes consistent with light and deep sleep stages. Hyperventilation was not performed. Photic strobe stimulation elicited no abnormalities.There was an intermittent prominence of theta and delta range activities over the right temporal region. Faster frequencieswere better seen over the right hemisphere. There were no epileptiform abnormalities. The EKG showed a normal rate and rhythm. Daily Video-EEG Description: Epoch 3: 07/22/2020 1:39:30 PM - 07/23/2020 1:39:30 PM The interictal EEG was as described above. There were no clinical or electrographic events. Interpretation: No seizures were captured during the recording. This is an abnormal awake and asleep Video/EEG due to 1) right temporal slowing. Focal slowing indicates focal [...] intent. Signing Attending: Clifton Jose MD PhD ITURE RESTORER ITURE RESTORER * Jackie Guerrero NP - 07/23/2020 8:39 AM CST Neurology Daily Progress Note Subjective Chief complaint of seizure. Interval History: He reports no events overnight. He is sitting in his chair and conversational this am. Current Facility-Administered Medications Medication Dose Route Frequency Provider Last Rate Last Admin ??? albuterol HFA (PROVENTIL HFA,VENTOLIN HFA,PROAIR HFA) 90 mcg/actuation inhaler 2 puff 2 puff inhalation Q4H PRN (RT) Jackie Guerrero NP ??? aspirin chewable tablet 81 mg 81 mg oral Daily Jackie Guerrero NP 81 mg at 07/22/20 0810 ??? bacitracin-polymyxin B (POLYSPORIN) 500-10,000 unit/gram ointment tube 1 application 1 application topical BID Jackie Guerrero NP ??? citalopram (CeleXA) tablet 40 mg 40 mg oral QAM Jackie Guerrero NP 40 mg at 07/22/20 08 ??? cyclobenzaprine (FLEXERIL) tablet 10 mg 10 mg oral BID Jackie Guerrero NP 10 mg at 07/22/202006 ??? dextrose (GLUTOSE) 40 % gel 15 g 15 g oral Q15 Min PRN Jackie Guerrero NP Or ??? dextrose (D10W) 10% bolus 250 mL 250 mL intravenous Q15 Min PRN Jackie Guerrero NP ??? diphenhydrAMINE (BENADRYL) tab/cap 25 mg 25 mg oral QID PRN Jackie Guerrero NP ??? divalproex ER (DEPAKOTE ER) 24 hour tablet 1,000 mg 1,000 mg oral BID Jackie Guerrero NP 1,000 mg at 07/22/202005 ??? enalapril (VASOTEC) tablet 5 mg 5 mg oral Daily Jackie Guerrero NP 5 mg at 07/22/20 08 ??? fenofibrate nanocrystallized (TRICOR) tablet 145 mg 145 mg oral Daily Jackie Guerrero NP 145 mg at 07/22/20 08 ??? fluticasone furoate-vilanteroL (BREO ELLIPTA) 200-25 mcg/dose inhaler 1 puff 1 puff inhalation Daily Day, Clifton Ortega MD PhD 1 puff at 07/22/20813 ??? fluticasone propionate (FLONASE) 50 mcg/actuation nasal spray 2 spray 2 spray each nostril Nightly Jackie Guerrero NP 2 spray at 07/22/202011 ??? glucagon injection 1 mg 1 mg intramuscular Q30 Min PRN Jackie Guerrero NP ??? ibuprofen (ADVIL,MOTRIN) tablet 800 mg 800 mg oral TID PRN Jackie Guerrero NP ??? insulin lispro (HumaLOG, ADMELOG) injection 1-2 Units 1-2 Units subcutaneous TID with meals Jackie Guerrero NP ??? levothyroxine (SYNTHROID) tablet 50 mcg 50 mcg oral Daily - 0600 Jackie Guerrero NP 50 mcg at 07/23/20 0613 ??? montelukast (SINGULAIR) tablet 10 mg 10 mg oral Daily Jackie Guerrero NP 10 mg at 07/22/20 0810 ??? nortriptyline (PAMELOR) capsule 75 mg 75 mg oral BID Jackie Guerrero NP 75 mg at ??? omega-3 fatty acids (LOVAZA) capsule 2 g 2 g oral BID Jackie Guerrero NP 2 g at 07/22/202005 ??? pantoprazole DR (PROTONIX) extended release tablet 40 mg 40 mg oral Daily Jackie Guerrero NP 40 mg at 07/22/20 0810 ??? pioglitazone (ACTOS) tablet 30 mg 30 mg oral Daily Jackie Guerrero NP 30 mg at 07/22/20 0810 ??? rosuvastatin (CRESTOR) tablet 40 mg 40 mg oral Nightly Jackie Guerrero NP 40 mg at 07/22/202006 ??? sodium chloride 0.9% flush 0.5-20 mL 0.5-20 mL intra-catheter Q8H HUGO Jackie Guerrero NP ??? sodium chloride 0.9% flush 0.5-20 mL 0.5-20 mL intra-catheter PRN Jackie Guerrero NP ??? topiramate (TOPAMAX) tablet 200 mg 200 mg oral BID Day, Clifton Ortega MD PhD 200 mg at 07/22/202005 ??? umeclidinium (INCRUSE ELLIPTA) 62.5 mcg/actuation inhaler 62.5 mcg 1 puff inhalation Daily Day,Clifton Ortega MD PhD 62.5 mcg at 07/22/20 0814 Objective Vitals: 24hr Min/Max: Temp Min: 36.6 ??C (97.9 ??F) Max: 36.8 ??C (98.2 ??F) Pulse Min: 61 Max: 72 BP Min: 118/68 Max: 130/84 Resp Min: 17 Max: 18 SpO2 Min: 97 % Max: 100 % Most Recent: Vitals: 07/23/20 0816 BP: 130/84 Pulse: 72 Resp: 18 Temp: 36.8 ??C (98.2 ??F) SpO2: 100% Physical Exam Constitutional: Comfortable and mood appropriate. Up to chair. Neurologic: Mental status- Alert and oriented x 4. Language- Fluent speech. Follows commands. Cranial nerves II-XII- Extraocular movements full without nystagmus. Face is symmetric with normal strength. No dysarthria. Fine finger movements are good. Sensation- intact to light touch. No intake/output data recorded. No intake/output data recorded. Lab/Radiology/Diagnostic Review: Recent Results (from the past 24 hour(s)) POCT glucose Collection Time: 07/22/20 11:34 AM Result Value Ref Range Glucose, POC 137 70 - 199 mg/dL POCT glucose Collection Time: 07/22/20 4:36 PM Result Value Ref Range Glucose, POC 104 70 - 199 mg/dL POCT glucose Collection Time: 07/22/20 8:39 PM Result Value Ref Range Glucose, POC 149 70 - 199 mg/dL POCT glucose Collection Time: 07/23/20 7:39 AM Result Value Ref Range Glucose, POC 137 70 - 199 mg/dL Assessment/Plan Principal Problem: Recurrent seizures (CMS/HCC) This patient will be hooked up to [...] the patient. The vEEG will be reviewed. Active Problems: Diabetes (CMS/HCC) Continue SSI, oral agents. Hypertension Continue home medications Asthma Per [facility] Protocol and home meds Hypothyroidism Continue home medications Jackie Guerrero NP Cosigned by Clifton Jose MD PhD at 07/23/2020 2:56 PM FURNITURE RESTORER ITURE RESTORER ITURE RESTORER Associated attestation - Clifton Jose MD PhD - 07/23/2020 2:56 PM FURNITURE RESTORER I have seen and examined the patient on 07/22/2020 in conjunction with the non- physician provider. The patient is a 55 YO M with a history of right temporal lobe epilepsy with surface EEG-negative auras with resolution of auras/seizures following epilepsy surgery. 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 His medical course has been complicated by cardiac and respiratory issues. He has a pacemaker. He has been having episodes of falling with loss of awareness and amnesia. He tellsme today that these are mostly from a seated position, such as when he is sitting at a restaurant, but has happened while standing. I personally reviewed the Video/EEG tracing and video, which revealed an abnormal interictal study due to right temporal slowing and no events. I discussed the following plan with the patient. Diagnosis: Spells R56.9 1. Video/EEG for characterization and to guide subsequent treatment. We have discussed that EEG candetect seizures, syncope, and non-epileptic events, which have different patterns. We have discussed that he has a 1-channel EKG as part of his Video/EEG. So far the EKG appears adequate. We discussed that his pacemaker should not allow his heart rate to be the reason for passing out, but other issues such as blood pressure, blood sugar, and blood oxygenation could be considered if he is shown dhara passing out. Though there was no classic presyncope/syncope pattern on EEG with the first two events, there was a minor amount of generalized slowing, likely drowsiness, but I will have staff get v itals with all further events, especially to measure blood pressure. 2. Checked orthostatics, which were normal. 3. Continue home dose of VPA 1000 mg bid for now. Consider weaning to 750 mg bid tomorrow. (Continuing his outpatient wean as below) 4. Weaned TPM from 300/200 mg to 200 mg bid this morning. I had been weaning TPM as an outpatient due to seizure freedom after epilepsy surgery with 200 mg bid being our goal by 04/2020, but spells delayed that until now. 5. S/p photic stimulation as a provocative procedure Sunday. Repeat photic stimulation as a provocative procedure today (Sunday) to try to elicit seizures/spells 6. sleep deprivation as a provocative procedure tonight to try to elicit seizures/spells * Clifton Jose MD PhD - 07/22/2020 2:47 PM CST Video-EEG Daily Epoch Report Patient Name: [facility] Medical Record Number (MRN): [id number] [facility] Record: [id number] Date of (): 1965 Start Time: 07/21/2020 1:39:30 PM End Time: 07/22/2020 1:39:30 PM Introduction: The patient is a 55 y.o. male with a history of asthma, s/p pacemaker, diabetes, depression, back pain, epilepsy s/p right selective amygdalohippocampectomy (2012), who presented with LOC events concerning for seizures. EEG was performed to evaluate for seizures. This is a report of continuous video-EEG monitoring. High definition digital video and digital EEG were recorded continuously with a [employer] EEG acquisition system. This was a 32 [...] with 2-4 Hz polymorphic frontotemporal delta activity. Asthe record progressed, stage II sleep was identified by vertex waves, sleep spindles and K-complexes. During the recording, there were changes consistent with light and deep sleep stages. Hyperventilation and photic strobe stimulation were not performed. There was an intermittent prominence of theta and delta range activities over the right temporal region. Faster frequencies were better seen over the right hemisphere. There were no epileptiform abnormalities. The EKG showed a normal rate and rhythm. Daily Video-EEG Description: Epoch 2: 07/21/2020 1:39:30 PM - 07/22/2020 1:39:30 PM The interictal EEG was as described above. Photic strobe stimulation was performed and elicited no abnormalitist.There were two clinical events reported. Event #1 occurred at 6:17 PM on 07/21. The patient pushed the button and was unresponsive for approximately 2 minutes. Then he reported there was noise in his ears and he felt tired. He was responsiveand communicative.There was no significant EEG change with this event beyond EMG and movement artifact. Event #2 occurred at 12:49 PM on 07/22. The patient was unresponsive for approximately 2 minutes. Then he reported he had sensation of tingling in his back head. He was responsive and communicative. There was no significant EEG change with this event beyond EMG and movement artifact. Interpretation: No seizures were captured during the recording. The noted events did not have an EEG correlate. This is an abnormal awake and asleep Video/EEG due to 1) right temporal slowing. Focal slowing indicates focal [...] intent. Signing Attending: Clifton Jose MD PhD ITURE RESTORER ITURE RESTORER * Jackie Guerrero NP - 07/22/2020 7:50 AM CST Neurology Daily Progress Note Subjective Chief complaint of seizure. Interval History: Typical event of staring, not responding and ear ringing. He is up in the chair this am. Orthostatics obtained yesterday: 111/55, HR 71 (lying)/ 109/58, HR 70 (sitting), 109/58, HR 74 (standing). Current Facility-Administered Medications Medication Dose Route Frequency Provider Last Rate Last Admin ??? albuterol HFA (PROVENTIL HFA,VENTOLIN HFA,PROAIR HFA) 90 mcg/actuation inhaler 2 puff 2 puff inhalation Q4H PRN (RT) Jackie Guerrero NP ??? aspirin chewable tablet 81 mg 81 mg oral Daily Jackie Guerrero NP 81 mg at 07/21/20 0832 ??? citalopram (CeleXA) tablet 40 mg 40 mg oral QAM Jackie Guerrero NP 40 mg at 07/21/20 0831 ??? cyclobenzaprine (FLEXERIL) tablet 10 mg 10 mg oral BID Jackie Guerrero NP 10 mg at 07/21/20 2202 ??? dextrose (GLUTOSE) 40 % gel 15 g 15 g oral Q15 Min PRN Jackie Guerrero NP Or ??? dextrose (D10W) 10% bolus 250 mL 250 mL intravenous Q15 Min PRN Jackie Guerrero NP ??? diphenhydrAMINE (BENADRYL) tab/cap 25 mg 25 mg oral QID PRN Jackie Guerrero NP ??? divalproex ER (DEPAKOTE ER) 24 hour tablet 1,000 mg 1,000 mg oral BID Jackie Guerrero NP 1,000 mg at 07/21/202201 ??? enalapril (VASOTEC) tablet 5 mg 5 mg oral Daily Jackie Guerrero NP 5 mg at 07/21/20 0832 ??? fenofibrate nanocrystallized (TRICOR) tablet 145 mg 145 mg oral Daily Jackie Guerrero NP 145 mg at 07/21/20 0831 ??? fluticasone furoate-vilanteroL (BREO ELLIPTA) 200-25 mcg/dose inhaler 1 puff 1 puff inhalation Daily Day, Clifton Ortega MD PhD 1 puff at 07/21/20 1200 ??? fluticasone propionate (FLONASE) 50 mcg/actuation nasal spray 2 spray 2 spray each nostril Nightly Jackie Guerrero NP 2 spray at 07/21/202200 ??? glucagon injection 1 mg 1 mg intramuscular Q30 Min PRN Jackie Guerrero NP ??? ibuprofen (ADVIL,MOTRIN) tablet 800 mg 800 mg oral TID PRN Jackie Guerrero NP ??? insulin lispro (HumaLOG, ADMELOG) injection 1-2 Units 1-2 Units subcutaneous TID with meals Jackie Guerrero NP ??? levothyroxine (SYNTHROID) tablet 50 mcg 50 mcg oral Daily - 0600 Jackie Guerrero NP 50 mcg at 07/22/20 0531 ??? montelukast (SINGULAIR) tablet 10 mg 10 mg oral Daily Jackie Guerrero NP 10 mg at 07/21/20 0832 ??? nortriptyline (PAMELOR) capsule 75 mg 75 mg oral BID Jackie Guerrero NP 75 mg at 202 ??? omega-3 fatty acids (LOVAZA) capsule 2 g 2 g oral BID Jackie Guerrero NP 2 g at 07/21/202200 ??? pantoprazole DR (PROTONIX) extended release tablet 40 mg 40 mg oral Daily Jackie Guerrero NP 40 mg at 07/21/20 1159 ??? pioglitazone (ACTOS) tablet 30 mg 30 mg oral Daily Jackie Guerrero NP 30 mg at 07/21/20 0831 ??? rosuvastatin (CRESTOR) tablet 40 mg 40 mg oral Nightly Jackie Guerrero NP 40 mg at 07/21/202201 ??? sodium chloride 0.9% flush 0.5-20 mL 0.5-20 mL intra-catheter Q8H HUGO Jackie Guerrero NP ??? sodium chloride 0.9% flush 0.5-20 mL 0.5-20 mL intra-catheter PRN Jackie Guerrero NP ??? topiramate (TOPAMAX) tablet 200 mg 200 mg oral Nightly Jackie Guerrero NP 200 mg at 07/21/202201 ??? topiramate (TOPAMAX) tablet 300 mg 300 mg oral Daily Jackie Guerrero NP 300 mg at 07/21/20 0832 ??? umeclidinium (INCRUSE ELLIPTA) 62.5 mcg/actuation inhaler 62.5 mcg 1 puff inhalation Daily Day,Clifton Ortega MD PhD 62.5 mcg at 07/21/20 1200 Objective Vitals: 24hr Min/Max: Temp Min: 36.4 ??C (97.5 ??F) Max: 36.6 ??C (97.9 ??F) Pulse Min: 65 Max: 70 BP Min: 114/67 Max: 124/72 Resp Min: 16 Max: 18 SpO2 Min: 98 % Max: 99 % Most Recent: Vitals: 07/22/20 0031 BP: 116/74 Pulse: 68 Resp: 18 Temp: 36.4 ??C (97.5 ??F) SpO2: 99% Physical Exam Constitutional: Comfortable and mood appropriate. Up to chair. Neurologic: Mental status- Alert and oriented x 4. Language- Fluent speech. Follows commands. Cranial nerves II-XII- Extraocular movements full without nystagmus. Face is symmetric with normal strength. No dysarthria. Fine finger movements are good. Sensation- intact to light touch. I/O last 2 completed shifts: In: 150 [P.O.:150] Out: - No intake/output data recorded. Lab/Radiology/Diagnostic Review: Recent Results (from the past 24 hour(s)) POCT glucose Collection Time: 07/21/20 11:22 AM Result Value Ref Range Glucose, POC 102 70 - 199 mg/dL POCT glucose Collection Time: 07/21/20 5:20 PM Result Value Ref Range Glucose, POC 171 70 - 199 mg/dL POCT glucose Collection Time: 07/21/20 10:03 PM Result Value Ref Range Glucose, POC 115 70 - 199 mg/dL Assessment/Plan Principal Problem: Recurrent seizures (CMS/HCC) This patient will be hooked up to [...] the patient. The vEEG will be reviewed. Active Problems: Diabetes (CMS/HCC) Continue SSI, oral agents. Hypertension Continue home medications Asthma Per [facility] Protocol and home meds Hypothyroidism Continue home medications Jackie Guerrero NP Cosigned by Clifton Jose MD PhD at 07/22/2020 6:43 PM FURNITURE RESTORER ITURE RESTORER ITURE RESTORER Associated attestation - Clifton Jose MD PhD - 07/22/2020 6:43 PM FURNITURE RESTORER I have seen and examined the patient on 07/22/2020 in conjunction with the non- physician provider. The patient is a 55 YO M with a history of right temporal lobe epilepsy with surface EEG-negative auras with resolution of auras/seizures following epilepsy surgery. 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 His medical course has been complicated by cardiac and respiratory issues. He has a pacemaker. He has been having episodes of falling with loss of awareness and amnesia. He tellsme today that these are mostly from a seated position, such as when he is sitting at a restaurant, but has happened while standing. I personally reviewed the Video/EEG tracing and video, which revealed an abnormal interictal study due to right temporal slowing and two events (1st with noise in ear then slumping, nonresponsiveness; 2nd with tingling in back of head with no slumping, nonresponsiveness until staff entered and got him back into his chair). These events had no significant EEG or EKG correlate. I discussed the following plan with the patient. Diagnosis: Spells R56.9 1. Video/EEG for characterization and to guide subsequent treatment. We have discussed that EEG candetect seizures, syncope, and non-epileptic events, which have different patterns. We have discussed that he has a 1-channel EKG as part of his Video/EEG. So far the EKG appears adequate. We discussed that his pacemaker should not allow his heart rate to be the reason for passing out, but other issues such as blood pressure, blood sugar, and blood oxygenation could be considered if he is shown dhara passing out. Though there was no classic presyncope/syncope pattern on EEG, there was a minor amount of generalized slowing, likely drowsiness, but I will have staff get vitals with all further events, especially to measure blood pressure. 2. Checked orthostatics, which were normal. 3. Continue home doses of seizure medications VPA 1000 mg bid and TPM 300/200 mg for now. I have been weaning these as an outpatient given his seizure freedom. Given no seizures with events so far, will wean TPM to 200 mg bid starting tomorrow. This was our goal prior to the 04/2020 outpatient visit but spells delayed. 4. S/p photic stimulation as a provocative procedure Sunday. * Rebeca, Clifton Ortega MD PhD - 07/21/2020 2:03 PM CST Video-EEG Daily Epoch Report Patient Name: [facility] Medical Record Number (MRN): [id number] [facility] Record: [id number] Date of (): 1965 Start Time: 07/20/2020 1:39:30 PM End Time: 07/20/2020 1:39:30 PM Introduction: The patient is a 55 y.o. male with a history of asthma, s/p pacemaker, diabetes, depression, back pain, epilepsy s/p right selective amygdalohippocampectomy (2012), who presented with LOC events concerning for seizures. EEG was performed to evaluate for seizures. This is a report of continuous video-EEG monitoring. High definition digital video and digital EEG were recorded continuously with a [employer] EEG acquisition system. This was a 32 [...] with 2-4 Hz polymorphic frontotemporal delta activity. Asthe record progressed, stage II sleep was identified by vertex waves, sleep spindles and K-complexes. During the recording, there were changes consistent with light and deep sleep stages. Hyperventilation and photic strobe stimulation were not performed. There was an intermittent prominence of theta and [...] No seizures were captured during the recording. This is an abnormal awake and asleep Video/EEG due to 1) right temporal slowing. Focal slowing indicates focal [...] intent. Signing Attending: Clifton Jose MD PhD ITURE RESTORER * Jackie Guerrero NP - 07/21/2020 7:54 AM CST Neurology Daily Progress Note Subjective Chief complaint of seizure. Interval History: No events reported overnight. Current Facility-Administered Medications Medication Dose Route Frequency Provider Last Rate Last Admin ??? albuterol HFA (PROVENTIL HFA,VENTOLIN HFA,PROAIR HFA) 90 mcg/actuation inhaler 2 puff 2 puff inhalation Q4H PRN (RT) Jackie Guerrero NP ??? aspirin chewable tablet 81 mg 81 mg oral Daily Jackie Guerrero NP ??? citalopram (CeleXA) tablet 40 mg 40 mg oral QAM Jackie Guerrero NP ??? cyclobenzaprine (FLEXERIL) tablet 10 mg 10 mg oral BID Jackie Guerrero NP 10 mg at 07/20/202141 ??? dextrose (GLUTOSE) 40 % gel 15 g 15 g oral Q15 Min PRN Jackie Guerrero NP Or ??? dextrose (D10W) 10% bolus 250 mL 250 mL intravenous Q15 Min PRN Jackie Guerrero NP ??? diphenhydrAMINE (BENADRYL) tab/cap 25 mg 25 mg oral QID PRN Jackie Guerrero NP ??? divalproex ER (DEPAKOTE ER) 24 hour tablet 1,000 mg 1,000 mg oral BID Jackie Guerrero NP 1,000 mg at 07/20/202141 ??? enalapril (VASOTEC) tablet 5 mg 5 mg oral Daily Jackie Guerrero NP ??? fenofibrate nanocrystallized (TRICOR) tablet 145 mg 145 mg oral Daily Jackie Guerrero NP ??? fluticasone furoate-vilanteroL (BREO ELLIPTA) 200-25 mcg/dose inhaler 1 puff 1 puff inhalation Daily Day, Clifton Ortega MD PhD ??? fluticasone propionate (FLONASE) 50 mcg/actuation nasal spray 2 spray 2 spray each nostril Nightly Jackie Guerrero NP 2 spray at 07/20/202134 ??? glucagon injection 1 mg 1 mg intramuscular Q30 Min PRN Jackie Guerrero NP ??? ibuprofen (ADVIL,MOTRIN) tablet 800 mg 800 mg oral TID PRN Jackie Guerrero NP ??? insulin lispro (HumaLOG, ADMELOG) injection 1-2 Units 1-2 Units subcutaneous TID with meals Jackie Guerrero NP ??? levothyroxine (SYNTHROID) tablet 50 mcg 50 mcg oral Daily - 0600 Jackie Guerrero NP 50 mcg at 07/21/20618 ??? montelukast (SINGULAIR) tablet 10 mg 10 mg oral Daily Jackie Guerrero NP ??? nortriptyline (PAMELOR) capsule 75 mg 75 mg oral BID Jackei Guerrero NP 75 mg at ??? omega-3 fatty acids (LOVAZA) capsule 2 g 2 g oral BID Jackie Guerrero NP 2 g at 07/20/202140 ??? pantoprazole DR (PROTONIX) extended release tablet 40 mg 40 mg oral Daily Jackie Guerrero NP ??? pioglitazone (ACTOS) tablet 30 mg 30 mg oral Daily Jackie Guerrero NP ??? rosuvastatin (CRESTOR) tablet 40 mg 40 mg oral Nightly Jackie Guerrero NP 40 mg at 07/20/202141 ??? sodium chloride 0.9% flush 0.5-20 mL 0.5-20 mL intra-catheter Q8H HUGO Jackie Guerrero NP ??? sodium chloride 0.9% flush 0.5-20 mL 0.5-20 mL intra-catheter PRN Jackie Guerrero NP ??? topiramate (TOPAMAX) tablet 200 mg 200 mg oral Nightly Jackie Guerrero NP 200 mg at 07/20/202141 ??? topiramate (TOPAMAX) tablet 300 mg 300 mg oral Daily Jackie Guerrero, PIERRE ??? umeclidinium (INCRUSE ELLIPTA) 62.5 mcg/actuation inhaler 62.5 mcg 1 puff inhalation Daily Day,Clifton Ortega MD PhD Objective Vitals: 24hr Min/Max: Temp Min: 36.4 ??C (97.5 ??F) Max: 36.6 ??C (97.9 ??F) Pulse Min: 60 Max: 73 BP Min: 97/25 Max: 125/77 Resp Min: 18 Max: 18 SpO2 Min: 96 % Max: 100 % Most Recent: Vitals: 07/21/20 0010 BP: 116/55 Pulse: 60 Resp: 18 Temp: 36.4 ??C (97.5 ??F) SpO2: 100% Physical Exam Constitutional: Comfortable and mood appropriate. Up to chair. Neurologic: Mental status- Alert and oriented x 4. Language- Fluent speech. Follows commands. Cranial nerves II-XII- Extraocular movements full without nystagmus. Face is symmetric with normal strength. No dysarthria. Motor- strength is 5/5 throughout. Fine finger movements are good. Sensation- intact to light touch. I/O last 2 completed shifts: In: 500 [P.O.:500] Out: - No intake/output data recorded. Lab/Radiology/Diagnostic Review: Recent Results (from the past 24 hour(s)) POCT glucose Collection Time: 07/20/20 10:10 AM Result Value Ref Range Glucose, POC 100 70 - 199 mg/dL POCT glucose Collection Time: 07/20/20 11:51 AM Result Value Ref Range Glucose, POC 95 70 - 199 mg/dL POCT glucose Collection Time: 07/20/20 5:22 PM Result Value Ref Range Glucose, POC 93 70 - 199 mg/dL POCT glucose Collection Time: 07/20/20 9:36 PM Result Value Ref Range Glucose, POC 160 70 - 199 mg/dL Assessment/Plan Principal Problem: Recurrent seizures (CMS/HCC) This patient will be hooked up to [...] the patient. The vEEG will be reviewed. Active Problems: Diabetes (CMS/HCC) Hypertension Asthma Hypothyroidism Jackie Guerrero NP Cosigned by Clifton Jose MD PhD at 07/21/2020 2:27 PM FURNITURE RESTORER ITURE RESTORER ITURE RESTORER Associated attestation - Clifton Jose MD PhD - 07/21/2020 2:27 PM FURNITURE RESTORER I have seen and examined the patient on 07/21/2020 in conjunction with the non- physician provider. The patient is a 55 YO M with a history of right temporal lobe epilepsy with surface EEG-negative auras with resolution of auras/seizures following epilepsy surgery. 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 His medical course has been complicated by cardiac and respiratory issues. He has a pacemaker. He has been having episodes of falling with loss of awareness and amnesia. He tellsme today that these are mostly from a seated position, such as when he is sitting at a restaurant, but has happened while standing. I personally reviewed the Video/EEG tracing and video, which revealed an abnormal interictal study due to right temporal slowing and no events. I discussed the following plan with the patient. Diagnosis: Spells R56.9 1. Video/EEG for characterization and to guide subsequent treatment. We discussed that EEG can detect seizures, syncope, and non-epileptic events, which have different patterns. We have discussed that he has a 1-channel EKG as part of his Video/EEG, which I will pay close attention to during review. I will consider telemetry depending on adequacy/findings. So far the EKG appears adequate. We discussed that his pacemaker should not allow his heart rate to be the reason for passing out, but otherissues such as blood pressure, blood sugar, and blood oxygenation could be considered if he is shown to be passing out. 2. Checked orthostatics yesterday, but HR and position not recorded in chart. Will repeat today after discussing need for better documentation. 3. Continue home doses of seizure medications VPA 1000 mg bid and TPM 300/200 mg for now. I have been weaning these as an outpatient given his seizure freedom. Will consider further wean this week ifnot having seizures. 4. photic stimulation as a provocative procedure today to try to elicit seizures/spells. 5. He notes that current events of interest are preceded by a whistling sound in his ears and then staring and sometimes loss of awareness and slumping down/over. I encouraged him to press the buttonif he hears the whistling sound in his ears. * Roya Alvarez RN - 07/20/2020 10:00 AM CST CM Initial Assessment Interview Note Information Obtained From: Patient (07/20/20999) at [facility] Admission Source: Non-health care facility point of origin Impression: 55 y.o. male admitted for EMU seizure monitoring. Plan Includes: CM to follow for further discharge planning. Will submit referrals as needed in accordance with PT/OT recommendations. Primary Source of Transportation: Does the patient need discharge transport arranged?: Yes Has discharge transport been arranged?: No Details of Transportation: [facility] (07/20/20999) Health Insurance Coverage: Primary: [facility] Medicare. Secondary: Medicare A&B, Medicaid [place] Prescription Coverage: Yes Pharmacy: [facility] Primary Care Provider: Sergey Wilson MD Prior to Admission: Primary Caregiver: Self Support System: Family members Support system contact info (name, phone, availablity): Rafa (brother) [phone] Home Care Services: No Durable Medical Equipment: Cane (single prong) Living Arrangements: Family members(Lives with nephew, Danial) Type of Residence: Apartment Steps in home? : Yes, Outside of home Number of steps outside:: 20 steps (07/20/20999) Potential discharge needs include: Will need Medicaid ride arranged. Dialysis: Dialysis: No (07/20/20999) Behavioral Health Services: Behavioral Health Services: No (07/20/20999) Patient expects to be Discharged to: Private residence, (07/20/20 1000) Additional Information: Patient has adequate family support. Has cane if needed. No further needs at this time. Patient's Identified Problem/Goal Problem: Ensure acute medical [...] Collaboration with patient, MD, direct care nurse, Office Runner, Nurse Coordinator and other members of the health care team to assure needed interventions completed. 2. Return patient to optimal level of self-care post discharge. 3. Sql Report Developer will follow for Discharge Planning - interventions as needed 4. Anticipated level of care at discharge 5. Planned Discharge Disposition Based on a comprehensive family assessment, assistance with instrumental activities of daily livingafter discharge will be provided by nephew. Through the course of our work I determined that the nephew possesses the skill and ability to provide and monitor the care of the patient when he or she returns home. nephew has the capacity to provide/monitor/arrange for the care of the patient. Finally, we determined that nephew has the knowledge of available resources and that combining them with their existing resources will suffice to sustain and care for the patient when he or she returns home. The treatment team is aware of this information. All are in agreement with the aftercare plan. Roya Alvarez RN ITURE RESTORER documented in this encounter H&P Notes * Jackie Guerrero, PIERRE - 07/20/2020 9:40 AM CST History and Physical Subjective Patient is a 55 y.o. male with chief complaint of seizures. 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 His seizures started in childhood. He reports that he is currently having LOC events about once every two weeks. He can fall. He has had previous vEEG with events of LOC and unresponsive events that are non-epileptic on EEG. He does not get a warning or aura. His event can last from 5-10 minutes. He had seizures previously with 1)staring, altered consciousness, poor memory and loss of time2) stomach pain that can lead to LOC. Recent events can occur while sitting in the chair (trigger).He does not get an aura or warning. Home AEDs: TMP 300/200 Dr. Jose's last note is included for reference: ?? His seizures have been characterized by [...] patient underwent a right temporal lobectomy and AHCby Dr. Schneider on 05/02/13 with pathology showing [...] Video/EEG 05/10-05/12/16 (5th since epilepsy surgery) at [facility] without AED wean captured 7 typical events without EEG correlate, consistent with non-epileptic events (report personally reviewed). Video/EEG 07/23-07/26/[address] [facility] revealed episodes of unresponsiveness, head drop, [...] might have set off the events that lead to the 04/2017 hospitalization at [place]. ?? Several visits ago, he endorsed that current events are stress-related and not epileptic. ?? He was evaluated at [facility] 11/30/18 for staring events with unresponsiveness. [...] was not working. He was in the [facility] ED for a syncopal episode 12/30/18. [facility]/22[facility]19 for another episode [...] his PMD to evaluate his malaise. ?? Last visit, he reported that he missed a step walking up concrete steps, fell, and hit his head with loss of consciousness for about 20 minutes. His ER testing was all reportedly normal, and they didnot change his medications. He denied epileptic seizures since last visit. He went 3 months withoutNEE's, which restarted ~1.5 months before the visit. He could not identify why things had changed. His stress level was reportedly not too bad. He had still not yet seen a talking therapist for CBT. He did not have a computer or internet access. He did not want to inconvenience his brother with transporting him. He agreed to let my nurse team call his brother Rafa who has internet access at least to look at psychologists/therapists in his area. We discussed that CBT is the standard treatment for NEE's. He said he was on TPM 700 mg total, but that Dr. Israel had increased him to 800 mg total but also wanted me to wean him off all AEDs over time. We discussed that I agree that he does not needto be on TPM 400 mg bid, and that we could begin weaning it. I instructed him to wean TPM to 300/400 mg now and call in 1 month to get next set of weaning instructions. We discussed trying to get down to 200 mg bid before next visit. We discussed that I may never recommend that he wean fully off VPA monotherapy, if we get to that point. ?? Since last visit, his brother agreed to get him in to do CBT. 11/2019-12/2019 there were several falls and head injuries with loss of consciousness, and medical evaluation including a hospitalization where he was reportedly taken off all seizure medications. After discharge, he resumed VPA and TPM, eventually getting TPM down to 300 mg bid by 01/2020, at which point he reported feeling better, family noticing, being free of falls and less anxious. He agreed to go down to 200/300 mg, and reported doing well thereafter. 04/13/20 he called reporting the first event he thought was like a seizure he had before surgery with staring and unresponsiveness, admitted these events were happening multiple times per month, but later reported that they were stress-related. I did not reduce TPM to 200 mg bidyet. Yesterday he fell to the ground, felt his breath cut short on him, could see, could not hear; EMT's came and took him home in the ambulance. ?? Today he reports that he is unsure if the events he has had are seizures or not. They happen ~2-3 times per month. He has not been in counseling. He had to have a new breathing medication because of dyspnea on exertion. Based on the fact that he could be having syncope due to a cardiopulmonary condition, seizures with weaning TPM since last visit, or PNES and has not followed through on counseling, the best next step is repeat spell characterization to guide treatment. He agreed to continue TPMat 200/300 mg and VPA unchanged until we find out if his current spells are seizures or not. On a side note, he won some money in the [employer] ?? In the past, he has been treated with Tegretol, Dilantin (gum problems), phenobarbital (mood side effects), clonazepam, Lyrica (discontinued after video EEG in May 2008), acetazolamide 250 mg bid, and LTG up to 50 mg (felt SI could not be resisted at 50 mg, so self-decreased back to 25 mg). He is on VPA ER 1000 mg bid (no side effects) and TPM 200/300 mg (no side effects; he is noticing some pain in his RLQ that comes and goes not severe; we discussed that if it worsens he should go to the ER and be checked out for kidney stone, appendicitis, etc.). He is still on lorazepam daily for moodper PMD. ?? In 2014 after a probable syncopal event, he was found to have EKG evidence of 1st degree AV block and a RBBB. He was later found to have valvular disease. A pacemaker/ defibrillator was placed by in [place], [place]. ?? He did not follow through with sleep clinic referral due to reported transportation issues. ?? He had post-op NPT 02/26/14 that revealed moderate, widespread deficits in language, verbal and visual anterograde memory, and executive function; compared to pre-op some improvements and some declines noted with an overall decrease in anxiety symptoms noted. (report personally reviewed). Past Medical History: Diagnosis Date ??? Anxiety disorder Anxiety - (Added by TW Conv) ??? Asthma ??? Diabetes ([facility]) 06/05/2019 ??? Hypertension ??? Personal history of [...] Placement - (Added by TW Conv) ??? OH CRANIOT W BONE FLAP FOR AMYGDALOHIPPOCAMPECTOMY Craniotomy For Amygdalohippocampectomy - (Added by TW Conv) HOME MEDICATIONS : albuterol (PROVENTIL,VENTOLIN) 1.25 mg/3 mL nebulizer solution albuterol HFA (PROVENTIL HFA,VENTOLIN HFA,PROAIR HFA) 90 mcg/actuation inhaler aspirin 81 mg chewable tablet citalopram (CeleXA) 40 mg tablet cyclobenzaprine (FLEXERIL) 10 mg tablet dicyclomine (BENTYL) 10 mg capsule divalproex ER (DEPAKOTE ER) 500 mg 24 hr tablet empagliflozin (JARDIANCE) 25 mg tablet enalapril (VASOTEC) 5 mg tablet ergocalciferol (VITAMIN D) 50,000 unit capsule fenofibrate (TRIGLIDE) 160 mg tablet fluticasone propion-salmeterol (ADVAIR DISKUS) 250-50 mcg/dose diskus inhaler fluticasone propionate (FLONASE) 50 mcg/actuation nasal spray icosapent ethyl (VASCEPA) 1 gram capsule levothyroxine (SYNTHROID) 50 mcg tablet meclizine (ANTIVERT) 25 mg tablet meloxicam (MOBIC) 7.5 mg tablet montelukast (SINGULAIR) 10 mg tablet nortriptyline (PAMELOR) 75 mg capsule omega-3 fatty acids (LOVAZA) 1 gram capsule omeprazole (PriLOSEC) 20 mg capsule ONETOUCH ULTRA BLUE TEST STRIP strip ONETOUCH ULTRA2 kit pioglitazone (ACTOS) 30 mg tablet rosuvastatin (CRESTOR) 40 mg tablet topiramate (TOPAMAX) 100 mg tablet topiramate (TOPAMAX) 200 mg tablet traMADol (ULTRAM) 50 mg tablet umeclidinium (INCRUSE ELLIPTA) 62.5 mcg/actuation blister with device Current Facility-Administered Medications Medication Dose Route Frequency Provider Last Rate Last Admin ??? albuterol HFA (PROVENTIL HFA,VENTOLIN HFA,PROAIR HFA) 90 mcg/actuation inhaler 2 puff 2 puff inhalation Q4H PRN (RT) Jackie Guerrero NP ??? [START ON 07/21/2020] aspirin chewable tablet 81 mg 81 mg oral Daily Jackie Guerrero, PIERRE ??? [START ON 07/21/2020] citalopram (CeleXA) tablet 40 mg 40 mg oral QAM Jackie Guerrero NP ??? cyclobenzaprine (FLEXERIL) tablet 10 mg 10 mg oral BID Jackie Guerrero NP ??? dextrose (GLUTOSE) 40 % gel 15 g 15 g oral Q15 Min PRN Jackie Guerrero NP Or ??? dextrose (D10W) 10% bolus 250 mL 250 mL intravenous Q15 Min PRN Jackie Guerrero NP ??? diphenhydrAMINE (BENADRYL) tab/cap 25 mg 25 mg oral QID PRN Jackie Guerrero NP ??? [START ON 07/21/2020] enalapril (VASOTEC) tablet 5 mg 5 mg oral Daily Jackie Guerrero NP ??? [START ON 07/21/2020] fenofibrate nanocrystallized (TRICOR) tablet 145 mg 145 mg oral Daily Jackie Guerrero NP ??? [START ON 07/21/2020] fluticasone furoate-vilanteroL (BREO ELLIPTA) 200-25 mcg/dose inhaler 1 puff 1 puff inhalation Daily Day, Clifton Ortega MD PhD ??? fluticasone propionate (FLONASE) 50 mcg/actuation nasal spray 2 spray 2 spray each nostril Nightly Jackie Guerrero NP ??? glucagon injection 1 mg 1 mg intramuscular Q30 Min PRN Jackie Guerrero NP ??? ibuprofen (ADVIL,MOTRIN) tablet 800 mg 800 mg oral TID PRN Jackie Guerrero NP ??? insulin lispro (HumaLOG, ADMELOG) injection 1-2 Units 1-2 Units subcutaneous TID with meals Jackie Guerrero NP ??? [START ON 07/21/2020] levothyroxine (SYNTHROID) tablet 50 mcg 50 mcg oral Daily - 0600 Jackie Guerrero NP ??? [START ON 07/21/2020] montelukast (SINGULAIR) tablet 10 mg 10 mg oral Daily Jackie Guerrero NP ??? nortriptyline (PAMELOR) capsule 75 mg 75 mg oral BID Jackie Guerrero NP ??? omega-3 fatty acids (LOVAZA) capsule 2 g 2 g oral BID Jackie Guerrero NP ??? [START ON 07/21/2020] pantoprazole DR (PROTONIX) extended release tablet 40 mg 40 mg oral Daily Jackie Guerrero NP ??? [START ON 07/21/2020] pioglitazone (ACTOS) tablet 30 mg 30 mg oral Daily Jackie Guerrero NP ??? rosuvastatin (CRESTOR) tablet 40 mg 40 mg oral Nightly Jackie Guerrero NP ??? sodium chloride 0.9% flush 0.5-20 mL 0.5-20 mL intra-catheter Q8H HUGO Jackie Guerrero NP ??? sodium chloride 0.9% flush 0.5-20 mL 0.5-20 mL intra-catheter PRN Jackie Guerrero NP ??? umeclidinium (INCRUSE ELLIPTA) 62.5 mcg/actuation inhaler 62.5 mcg 1 puff inhalation Daily Day,Clifton Ortega MD PhD Allergies Allergen Reactions ??? Glimepiride Unknown Social History Socioeconomic History ??? Marital status: [...] Gatherings with Friends and Family: ??? Attends Buddhist Services: ??? Active Member of Clubs or Organizations: ??? Attends Club or Organization Meetings: ??? Marital Status: Intimate Partner Violence: ??? Fear of Current or Ex-Partner: ??? Emotionally Abused: ??? Physically Abused: ??? Sexually Abused: Family History Problem Relation Age of Onset ??? Brain cancer Brother Brain tumor - (Added by TW Conv) Review of Systems Musculoskeletal: Positive for back pain. All other systems reviewed and are negative. Objective Vitals: Arrival Vitals [07/20/20 0919] Temp 36.6 ??C (97.9 ??F) Pulse 73 Resp 18 BP 105/53 SpO2 98 % Temp src Oral Heart Rate Source Patient Position BP Location Left arm FiO2 (%) 24 hr Min/Max: Temp Min: 36.6 ??C (97.9 ??F) Max: 36.6 ??C (97.9 ??F) Pulse Min: 73 Max: 73 BP Min: 97/25 Max: 125/77 Resp Min: 18 Max: 18 SpO2 Min: 96 % Max: 98 % Most Recent : Vitals: 07/20/20 1436 BP: 113/72 Pulse: Resp: Temp: SpO2: Height: 180.3 cm (5' 11 ) Weight: (!) 138.3 kg (305 lb) BMI (Calculated): 42.6 No intake/output data recorded. No intake/output data recorded. Physical Exam PHYSICAL General: Well developed, well nourished patient comfortable in no acute distress. HEENT: Normocephalic and atraumatic. No scleral icterus or conjunctival pallor. Mucous membranes moist. Oropharynx clear. Pulmonary: Nonlabored respirations. Lungs clear to auscultation bilaterally. Cardiovascular: Regular rate Skin: Warm, well perfused; no apparent rashes or bruises. Constitutional: Comfortable and mood appropriate. Neurologic: Mental status- Alert and oriented x 4. Language- Fluent speech. Follows commands. Cranial nerves II-XII- Extraocular movements full without nystagmus. Face is symmetric with normal strength. No dysarthria. Motor- strength is 5/5 throughout. Fine finger movements are good. Sensation- intact to light touch. Radiology Review: No results found. Assessment /Plan Principal Problem: Recurrent seizures (CMS/HCC) This patient is hooked up to vEEG. [...] and the patient. ThevEEG will be reviewed. Active Problems: Diabetes (CMS/HCC) SSI, oral actos, DM diet Hypertension Continue enalapril Asthma [facility] protocol/;home medications Hypothyroidism Continue home medications Jackie Guerrero NP Cosigned by Clifton Jose MD PhD at 07/20/2020 4:34 PM FURNITURE RESTORER ITURE RESTORER ITURE RESTORER Associated attestation - Clifton Jose MD PhD - 07/20/2020 4:34 PM FURNITURE RESTORER I have seen and examined the patient on 07/20/2020 in conjunction with the non- physician provider. The patient is a 55 YO M with a history of right temporal lobe epilepsy with surface EEG-negative auras with resolution of auras/seizures following epilepsy surgery. 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 His medical course has been complicated by cardiac and respiratory issues. He has a pacemaker. He has been having episodes of falling with loss of awareness and amnesia. He tellsme today that these are mostly from a seated position, such as when he is sitting at a restaurant, but has happened while standing. I discussed the following plan with the patient. Diagnosis: Elvis R56.9 1. Video/EEG for characterization and to guide subsequent treatment. We discussed that EEG can detect seizures and syncope, which have different patterns. We discussed that he has a 1-channel EKG as part of his Video/EEG, which I will pay close attention to during review. I will consider telemetry d epending on adequacy/findings. We discussed that his pacemaker should not allow his heart rate to be the reason for passing out, but other issues such as blood pressure, blood sugar, and blood oxygenation could be considered if he is shown to be passing out. 2. Check orthostatics today 3. Continue home doses of seizure medications VPA 1000 mg bid and TPM 300/200 mg for now. I have been weaning these as an outpatient given his seizure freedom. Will consider further wean this week ifnot having seizures. documented in this encounter Miscellaneous Notes * Plan of Care - Tracee Painting RN - 07/26/2020 7:34 AM CDT Problem: Health Behavior: Goal: Understanding of discharge needs will improve Outcome: Progressing Problem: Activity: Goal: Mobility will improve Outcome: Progressing Problem: Lack of Knowledge: Goal: Understanding of ways to prevent future skin breakdown will improve Outcome: Progressing Goal: Ability to identify appropriate dietary choices will improve Outcome: Progressing Problem: Nutritional: Goal: Dietary intake will improve Outcome: Progressing Goal: Ability to maintain a balanced intake and output will improve Outcome: Progressing Problem: Skin Integrity: Goal: Risk for impaired skin integrity will decrease Outcome: Progressing Goal: Ability to demonstrate warm and dry skin will improve Outcome: Progressing Goal: Circulation will improve to fullest extent possible Outcome: Progressing Problem: Lack of Knowledge: Goal: Ability to state ways to decrease the risk of falls will improve Outcome: Progressing Problem: Safety: Goal: Will remain free from falls Outcome: Progressing Goal: Will remain free from injury from falls Outcome: Progressing Goal: Will remain free from falls and injury in home environment Outcome: Progressing Problem: Safety: Goal: Ability to remain free from injury will improve Outcome: Progressing Goals: Clinical Goals for the Shift: Monitor for sz, remain free from injury. Summary: * Plan of Care - Mahogany Pascual RN - 07/26/2020 3:24 AM CDT Goals: Clinical Goals for the Shift: Monitor for sz, remain free from injury. Summary: * Plan of Care - Qasim Sinclair RN - 07/25/2020 10:09 AM CDT Goals: Clinical Goals for the Shift: Monitor for sz, remain free from injury. Summary: * Plan of [place] - Mahogany Psacual RN - 07/25/2020 1:05 AM FURNITURE RESTORER Goals: Clinical Goals for the Shift: Monitor for sz, remain free from injury. Summary: ITURE RESTORER * Plan of Care - Melissa Narvaez RN - 07/24/2020 4:24 PM CST Weekend note: Per chart review, Patient is not medically ready for discharge today. CM will continue to follow for discharge needs. For weekend assistance, please call the on-call weekend onsite case manager @ [phone] ITURE RESTORER * Plan of Care - Qasim Sinclair RN - 07/24/2020 8:31 AM CST Goals: Clinical Goals for the Shift: Monitor for sz, remain free from injury. Summary: ITURE RESTORER * Plan of Care - Laura Knox RN - 07/24/2020 12:10 AM CST Goals: Clinical Goals for the Shift: Monitor for sz, remain free from injury. Summary: pt will have safe events, remain free from falls and injury ITURE RESTORER * Plan of Care - Qasim Sinclair RN - 07/23/2020 3:39 PM CST Goals: Clinical Goals for the Shift: Monitor for sz, remain free from injury. Summary: ITURE RESTORER * Plan of Care - Roya Alvarez RN - 07/23/2020 2:31 PM CST Weekend List: Patient needs Medicaid Ride arranged. ADD is Sat. Vs. Sun. Lives in [place]. [employer] # . CM to follow patient for discharge planning and referrals as needed. Roya Alvarez, MSN, manager emergency department # [phone] For emergency needs after 4:30 pm, please call the tractor trailer driver # [phone]. For weekend/holiday needs from 8:00a.m. - 4:30p.m., please call the Weekend Sql Report Developer . ITURE RESTORER * Plan of Care - Laura Knox RN - 07/22/2020 11:11 PM CST Goals: Clinical Goals for the Shift: Monitor for sz, remain free from injury. Summary: pt will be monitored for safe events and remain free from injury ITURE RESTORER * Hospital Course - Jackie Guerrero NP - 07/22/2020 1:32 PM CST He was admitted under the care of Dr. Jose. He was placed on seizure precautions and continuously monitored on Video EEG. His anti-epileptic medications were changed as necessary to try to capture herevents. Provocative procedures such as photic stimulation, hyperventilation, sleep deprivation, andphysical exhaustion from riding an exercise bike were used as necessary to try to capture events. Hi s typical clinical events were captured. See Video EEG report for details. He was discharged to home in stable condition. Discharge AEDs: TMP 200 mg BID, VPA ER 1000/500 mg Discharge testing: none at this time, repeat Video/EEG may be required to characterize any persistent, worsening, or new events concerning for seizures Follow-up: with Dr. Rebeca Jose's comments: The patient is a 55 YO M with a history of right temporal lobe epilepsy with surface EEG-negative auras with resolution of auras/seizures following epilepsy surgery. 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 His medical course has been complicated by cardiac and respiratory issues. He has a pacemaker. He has been having episodes of falling with loss of awareness and amnesia. He tellsme today that these are mostly from a seated position, such as when he is sitting at a restaurant, but has happened while standing. ?? I personally reviewed the Video/EEG tracing and video, which revealed an abnormal interictal study due to right temporal slowing and one typical event with no EEG correlate. ?? I discussed the following plan with the patient. ?? Diagnosis: Spells R56.9 1. Video/EEG for characterization and to guide subsequent treatment. We have discussed that EEG candetect seizures, syncope, and non-epileptic events, which have different patterns. We have discussed that he has a 1-channel EKG as part of his Video/EEG. So far the EKG appears adequate. We discussed that his pacemaker should not allow his heart rate to be the reason for passing out, but other issues such as blood pressure, blood sugar, and blood oxygenation could be considered if he is shown dhara passing out. Though there was no classic presyncope/syncope pattern on EEG with the first two events, there was a minor amount of generalized slowing, likely drowsiness, but I will have staff get v itals with all further events, especially to measure blood pressure. 2. Checked orthostatics, which were normal. 3. Wean VPA from home dose of 1000 mg bid to 1000 mg QAM and 500 mg QPM. With changes done yesterday, he will receive 750 mg QAM and 500 mg QPM today. 4. Weaned TPM from 300/200 mg to 200 mg bid Sunday. I had been weaning TPM as an outpatientdue to seizure freedom after epilepsy surgery with 200 mg bid being our goal by 04/2020, but spellsdelayed that until this admission. 5. S/p photic stimulation as a provocative procedure Sunday. Repeat photic stimulation as a provocative procedure Sunday to try to elicit seizures/spells. photic stimulation as a provocative procedure again today (Sunday) to try to elicit seizures/spells. 6. S/p sleep deprivation as a provocative procedure Sunday to try to elicit seizures/spells (but could only stay awake until ~11 PM reportedly). Repeated sleep deprivation as a provocative procedure (Sat-Sun) to try to elicit seizures/spells. ITURE RESTORER * Plan of Care - Tracee Painting RN - 07/22/2020 7:43 AM CST Problem: Health Behavior: Goal: Understanding of discharge needs will improve Outcome: Progressing Problem: Activity: Goal: Mobility will improve Outcome: Progressing Problem: Lack of Knowledge: Goal: Understanding of ways to prevent future skin breakdown will improve Outcome: Progressing Goal: Ability to identify appropriate dietary choices will improve Outcome: Progressing Problem: Nutritional: Goal: Dietary intake will improve Outcome: Progressing Goal: Ability to maintain a balanced intake and output will improve Outcome: Progressing Problem: Skin Integrity: Goal: Risk for impaired skin integrity will decrease Outcome: Progressing Goal: Ability to demonstrate warm and dry skin will improve Outcome: Progressing Goal: Circulation will improve to fullest extent possible Outcome: Progressing Problem: Lack of Knowledge: Goal: Ability to state ways to decrease the risk of falls will improve Outcome: Progressing Problem: Safety: Goal: Will remain free from falls Outcome: Progressing Goal: Will remain free from injury from falls Outcome: Progressing Goal: Will remain free from falls and injury in home environment Outcome: Progressing Problem: Safety: Goal: Ability to remain free from injury will improve Outcome: Progressing Goals: Clinical Goals for the Shift: Monitor for sz, remain free from injury. Summary: ITURE RESTORER * Plan of Care - Maia Naqvi RN - 07/22/2020 2:19 AM CST Problem: Health Behavior: Goal: Understanding of discharge needs will improve Outcome: Progressing Problem: Activity: Goal: Mobility will improve Outcome: Progressing Problem: Lack of Knowledge: Goal: Understanding of ways to prevent future skin breakdown will improve Outcome: Progressing Goal: Ability to identify appropriate dietary choices will improve Outcome: Progressing Problem: Nutritional: Goal: Dietary intake will improve Outcome: Progressing Goal: Ability to maintain a balanced intake and output will improve Outcome: Progressing Problem: Skin Integrity: Goal: Risk for impaired skin integrity will decrease Outcome: Progressing Goal: Ability to demonstrate warm and dry skin will improve Outcome: Progressing Goal: Circulation will improve to fullest extent possible Outcome: Progressing Problem: Lack of Knowledge: Goal: Ability to state ways to decrease the risk of falls will improve Outcome: Progressing Problem: Safety: Goal: Will remain free from falls Outcome: Progressing Goal: Will remain free from injury from falls Outcome: Progressing Goal: Will remain free from falls and injury in home environment Outcome: Progressing Problem: Safety: Goal: Ability to remain free from injury will improve Outcome: Progressing Goals: Clinical Goals for the Shift: Monitor for sz, remain free from injury. Summary: Progressing towards goals. Will continue to monitor and educate. ITURE RESTORER * Provider Query - Madyson Barbosa - 07/21/2020 5:00 PM CST Please validate the significance of the abnormal BMI and document in the medical record and on thisform. 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 07/20 H&P: t2dm (SSi, oral actos, DM diet) with ongoing lab monitoring BMI: 42.54 Weight: 305 lbs Height: 5??? 11?? Diet: regular Additional Provider Response: Please specify the significance of the abnormal BMI and document in the medical record and on the form. ____ Overweight, present on admission ____ Obesity, present on admission ___x_ Morbid (Severe/Extreme) Obesity, present on admission ____ Other, specify above ___ Clinically unable to determine A BMI of greater than 40 is considered a clinically significant and is a reportable secondary complication/comorbid condition when it requires clinical evaluation, treatment, diagnostic procedures and/or extended length of hospital stay because of increased nursing care or monitoring. BMI definitions per www.NHLBI.nih.gov BMI Weight Status <18.5 Underweight 18.5 to 24.9 Normal/Healthy 25 to 29.9 Overweight 30 to 39.9 Obesity >40 Extreme Obesity (Severe/Morbid) Use of terms such as likely, suspected, possible, or probable (associated with a specific diagnosisthat is being evaluated, monitored, or treated as if it exists) are acceptable and can be coded in the inpatient setting when documented at the time of discharge. This documentation will become part of the patient's medical record. Regards, Madyson Barbosa RN, BSN, PHN, CCDS Clinical Documentation Government Teacher [phone] [email or web address] ITURE RESTORER * Plan of Care - Tracee Painting RN - 07/21/2020 7:54 AM CST Problem: Health Behavior: Goal: Understanding of discharge needs will improve Outcome: Progressing Problem: Activity: Goal: Mobility will improve Outcome: Progressing Problem: Lack of Knowledge: Goal: Understanding of ways to prevent future skin breakdown will improve Outcome: Progressing Goal: Ability to identify appropriate dietary choices will improve Outcome: Progressing Problem: Nutritional: Goal: Dietary intake will improve Outcome: Progressing Goal: Ability to maintain a balanced intake and output will improve Outcome: Progressing Problem: Skin Integrity: Goal: Risk for impaired skin integrity will decrease Outcome: Progressing Goal: Ability to demonstrate warm and dry skin will improve Outcome: Progressing Goal: Circulation will improve to fullest extent possible Outcome: Progressing Problem: Lack of Knowledge: Goal: Ability to state ways to decrease the risk of falls will improve Outcome: Progressing Problem: Safety: Goal: Will remain free from falls Outcome: Progressing Goal: Will remain free from injury from falls Outcome: Progressing Goal: Will remain free from falls and injury in home environment Outcome: Progressing Problem: Safety: Goal: Ability to remain free from injury will improve Outcome: Progressing Problem: Health Behavior: Goal: Understanding of discharge needs will improve Outcome: Progressing Problem: Activity: Goal: Mobility will improve Outcome: Progressing Problem: Lack of Knowledge: Goal: Understanding of ways to prevent future skin breakdown will improve Outcome: Progressing Goal: Ability to identify appropriate dietary choices will improve Outcome: Progressing Problem: Nutritional: Goal: Dietary intake will improve Outcome: Progressing Goal: Ability to maintain a balanced intake and output will improve Outcome: Progressing Problem: Skin Integrity: Goal: Risk for impaired skin integrity will decrease Outcome: Progressing Goal: Ability to demonstrate warm and dry skin will improve Outcome: Progressing Goal: Circulation will improve to fullest extent possible Outcome: Progressing Problem: Lack of Knowledge: Goal: Ability to state ways to decrease the risk of falls will improve Outcome: Progressing Problem: Safety: Goal: Will remain free from falls Outcome: Progressing Goal: Will remain free from injury from falls Outcome: Progressing Goal: Will remain free from falls and injury in home environment Outcome: Progressing Problem: Safety: Goal: Ability to remain free from injury will improve Outcome: Progressing Goals: Clinical Goals for the Shift: Monitor for sz, remain free from injury. Summary: ITURE RESTORER * Plan of Care - Maia Naqvi RN - 07/21/2020 2:37 AM CST Problem: Health Behavior: Goal: Understanding of discharge needs will improve Outcome: Progressing Problem: Activity: Goal: Mobility will improve Outcome: Progressing Problem: Lack of Knowledge: Goal: Understanding of ways to prevent future skin breakdown will improve Outcome: Progressing Goal: Ability to identify appropriate dietary choices will improve Outcome: Progressing Problem: Nutritional: Goal: Dietary intake will improve Outcome: Progressing Goal: Ability to maintain a balanced intake and output will improve Outcome: Progressing Problem: Skin Integrity: Goal: Risk for impaired skin integrity will decrease Outcome: Progressing Goal: Ability to demonstrate warm and dry skin will improve Outcome: Progressing Goal: Circulation will improve to fullest extent possible Outcome: Progressing Problem: Lack of Knowledge: Goal: Ability to state ways to decrease the risk of falls will improve Outcome: Progressing Problem: Safety: Goal: Will remain free from falls Outcome: Progressing Goal: Will remain free from injury from falls Outcome: Progressing Goal: Will remain free from falls and injury in home environment Outcome: Progressing Problem: Safety: Goal: Ability to remain free from injury will improve Outcome: Progressing Goals: Clinical Goals for the Shift: Monitor for sz, remain free from injury. Summary: Progressing towards goals. Will continue to monitor and educate. ITURE RESTORER * Plan of Care - Raiza Tabor RRT - 07/20/2020 2:01 PM CST Impression: Patient with pulmonary history of COPD. Ordered on Breo Ellipta/ Incruse Ellipta inhalers , Qday frequency. Patient has good DPI technique and able to perform on own without assistance. Plan: Transfer inhalers to nursing per Bronchodilator protocol. ITURE RESTORER * Plan of Care - Lindy Bello RN - 07/20/2020 11:19 AM CST Problem: Activity: Goal: Mobility will improve Outcome: Progressing Problem: Lack of Knowledge: Goal: Understanding of ways to prevent future skin breakdown will improve Outcome: Progressing Problem: Skin Integrity: Goal: Risk for impaired skin integrity will decrease Outcome: Progressing Problem: Skin Integrity: Goal: Ability to demonstrate warm and dry skin will improve Outcome: Progressing Problem: Safety: Goal: Will remain free from falls Outcome: Progressing Problem: Safety: Goal: Ability to remain free from injury will improve Outcome: Progressing Problem: Health Behavior: Goal: Understanding of discharge needs will improve Outcome: Progressing Goals: Clinical Goals for the Shift: pt will have safe seizure activity, pt will remain free from falls, unit orientation Summary: ITURE RESTORER documented in this encounter Plan of Treatment Pending Results Name Type Priority Associated Diagnoses Date /Time Photic Stimulation with EEG Neurology Routine 07/23/2020 2:25 PM FURNITURE RESTORER Scheduled Orders Name Type Priority Associated Diagnoses Orde r Schedule Photic Stimulation with EEG Neurology Routine Once for 1 Occur rences starting 07/23/2020 until 07/23/2020 documented as of this encounter Procedures Procedure Name Priority Date/Time Associated Diagnosis Comments POCT GLUCOSE DEVICE Routine 07/26/2020 1 1:27 AM CDT POCT GLUCOSE DEVICE Routine 07/26/2020 7 :51 AM CDT POCT GLUCOSE DEVICE Routine 07/25/2020 4 :51 PM CDT POCT GLUCOSE DEVICE Routine 07/25/2020 1 2:02 PM CDT POCT GLUCOSE DEVICE Routine 07/25/2020 8 :02 AM CDT POCT GLUCOSE DEVICE Routine 07/24/2020 9 :15 PM FURNITURE RESTORER POCT GLUCOSE DEVICE Routine 07/24/2020 4 :43 PM FURNITURE RESTORER POCT GLUCOSE DEVICE Routine 07/24/2020 1 1:15 AM FURNITURE RESTORER POCT GLUCOSE DEVICE Routine 07/24/2020 7 :08 AM FURNITURE RESTORER POCT GLUCOSE DEVICE Routine 07/23/2020 8 :29 PM FURNITURE RESTORER POCT GLUCOSE DEVICE Routine 07/23/2020 4 :39 PM FURNITURE RESTORER POCT GLUCOSE DEVICE Routine 07/23/2020 1 1:23 AM FURNITURE RESTORER POCT GLUCOSE DEVICE Routine 07/23/2020 7 :39 AM FURNITURE RESTORER POCT GLUCOSE DEVICE Routine 07/22/2020 8 :39 PM FURNITURE RESTORER POCT GLUCOSE DEVICE Routine 07/22/2020 4 :36 PM FURNITURE RESTORER POCT GLUCOSE DEVICE Routine 07/22/2020 1 1:34 AM FURNITURE RESTORER POCT GLUCOSE DEVICE Routine 07/22/2020 7 :56 AM FURNITURE RESTORER POCT GLUCOSE DEVICE Routine 07/21/2020 1 0:03 PM FURNITURE RESTORER POCT GLUCOSE DEVICE Routine 07/21/2020 5 :20 PM FURNITURE RESTORER POCT GLUCOSE DEVICE Routine 07/21/2020 1 1:22 AM FURNITURE RESTORER POCT GLUCOSE DEVICE Routine 07/21/2020 7 :49 AM FURNITURE RESTORER POCT GLUCOSE DEVICE Routine 07/20/2020 9 :36 PM FURNITURE RESTORER POCT GLUCOSE DEVICE Routine 07/20/2020 5 :22 PM FURNITURE RESTORER POCT GLUCOSE DEVICE Routine 07/20/2020 1 1:51 AM FURNITURE RESTORER POCT GLUCOSE DEVICE Routine 07/20/2020 1 0:10 AM FURNITURE RESTORER documented in this encounter Results * POCT glucose (07/26/2020 11:27 AM CDT) Glucose, POC 117 70 - 199 mg/dL [facility] Blood specimen (specimen) 07/26/2020 11:27 AM CDT 07/26/2020 11:27 AM CDT us Clifton Jose MD PhD LAB POCT ORDERABLES - DEV ICE Final Result [facility] Department [place] [address] * POCT glucose (07/26/2020 7:51 AM CDT) Glucose, POC 131 70 - 199 mg/dL [facility] Blood specimen (specimen) 07/26/2020 7:51 AM CDT 07/26/2020 7:51 AM CDT Clifton Jose MD PhD LAB POCT ORDERABLES - DEV ICE Final Result Performing Organization Address [facility] Co de Phone Number [facility] [place] [address] * POCT glucose (07/25/2020 4:51 PM CDT) Glucose, POC 123 70 - 199 mg/dL [facility] Blood specimen (specimen) 07/25/2020 4:51 PM CDT 07/25/2020 4:51 PM CDT Clifton Jose MD PhD LAB POCT ORDERABLES - DEV ICE Final Result Performing Organization Address [facility] Co de Phone Number [facility] [place] [place] [address] * POCT glucose (07/25/2020 12:02 PM CDT) Glucose, POC 108 70 - 199 mg/dL [facility] Blood specimen (specimen) 07/25/2020 12:02 PM CDT 07/25/2020 12:02 PM CDT Clifton Jose MD PhD LAB POCT ORDERABLES - DEV ICE Final Result Performing Organization Address [facility] [place] [address] * POCT glucose (07/25/2020 8:02 AM CDT) Glucose, POC 128 70 - 199 mg/dL [facility] Blood specimen (specimen) 07/25/2020 8:02 AM CDT 07/25/2020 8:02 AM CDT us Clifton Jose MD PhD LAB POCT ORDERABLES - DEV ICE Final Result Performing Organization Address City/[facility] Co de Phone Number [facility] [place] [address] * POCT glucose (07/24/2020 9:15 PM FURNITURE RESTORER) Glucose, POC 132 70 - 199 mg/dL [facility] Blood specimen (specimen) 07/24/2020 9:15 PM FURNITURE RESTORER 07/24/2020 9:15 PM FURNITURE RESTORER us Clifton Jose MD PhD LAB POCT ORDERABLES - DEV ICE Final Result Performing Organization Address [facility] Co de Phone Number [facility] [place] [address] * POCT glucose (07/24/2020 4:43 PM FURNITURE RESTORER) Glucose, POC 126 70 - 199 mg/dL [facility] Blood specimen (specimen) 07/24/2020 4:43 PM FURNITURE RESTORER 07/24/2020 4:43 PM FURNITURE RESTORER us Clifton Jose MD PhD LAB POCT ORDERABLES - DEV ICE Final Result Performing Organization Address [facility] Co de Phone Number [facility] Department [place] [address] * POCT glucose (07/24/2020 11:15 AM FURNITURE RESTORER) Glucose, POC 117 70 - 199 mg/dL [facility] Blood specimen (specimen) 07/24/2020 11:15 AM FURNITURE RESTORER 07/24/2020 11:15 AM FURNITURE RESTORER us Clifton Jose MD PhD LAB POCT ORDERABLES - DEV ICE Final Result Performing Organization Address City/[facility]/[place] [address] * POCT glucose (07/24/2020 7:08 AM FURNITURE RESTORER) Glucose, POC 137 70 - 199 mg/dL [facility] Blood specimen (specimen) 07/24/2020 7:08 AM FURNITURE RESTORER 07/24/2020 7:08 AM FURNITURE RESTORER Clifton Jose MD PhD LAB POCT ORDERABLES - DEV ICE Final Result Performing Organization Address City/[facility]/[place] [address] * POCT glucose (07/23/2020 8:29 PM FURNITURE RESTORER) Glucose, POC 154 70 - 199 mg/dL [facility] Blood specimen (specimen) 07/23/2020 8:29 PM FURNITURE RESTORER 07/23/2020 8:29 PM FURNITURE RESTORER Clifton Jose MD PhD LAB POCT ORDERABLES - DEV ICE Final Result Performing Organization Address [facility]/[place] [address] * POCT glucose (07/23/2020 4:39 PM FURNITURE RESTORER) Glucose, POC 174 70 - 199 mg/dL [facility] Blood specimen (specimen) 07/23/2020 4:39 PM FURNITURE RESTORER 07/23/2020 4:39 PM FURNITURE RESTORER Clifton Jose MD PhD LAB POCT ORDERABLES - DEV ICE Final Result Performing Organization Address [facility]/[place] [address] * POCT glucose (07/23/2020 11:23 AM FURNITURE RESTORER) Glucose, POC 137 70 - 199 mg/dL [facility] Blood specimen (specimen) 07/23/2020 11:23 AM FURNITURE RESTORER 07/23/2020 11:23 AM FURNITURE RESTORER Clifton Jose MD PhD LAB POCT ORDERABLES - DEV ICE Final Result Performing Organization Address [facility]/ZIP Co de Phone Number [facility] [place] [address] * POCT glucose (07/23/2020 7:39 AM FURNITURE RESTORER) Glucose, POC 137 70 - 199 mg/dL [facility] Blood specimen (specimen) 07/23/2020 7:39 AM FURNITURE RESTORER 07/23/2020 7:39 AM FURNITURE RESTORER Clifton Jose MD PhD LAB POCT ORDERABLES - DEV ICE Final Result Performing Organization Address [facility] Co de Phone Number [facility] [place] [place] [address] * POCT glucose (07/22/2020 8:39 PM FURNITURE RESTORER) Glucose, POC 149 70 - 199 mg/dL [facility] Blood specimen (specimen) 07/22/2020 8:39 PM FURNITURE RESTORER 07/22/2020 8:39 PM FURNITURE RESTORER us Clifton Jose MD PhD LAB POCT ORDERABLES - DEV ICE Final Result Performing Organization Address City/[facility]/ZIP Co de Phone Number [facility] [place] [employer] [place] [address] * POCT glucose (07/22/2020 4:36 PM FURNITURE RESTORER) Glucose, POC 104 70 - 199 mg/dL [facility] Blood specimen (specimen) 07/22/2020 4:36 PM FURNITURE RESTORER 07/22/2020 4:36 PM FURNITURE RESTORER us Clifton Jose MD PhD LAB POCT ORDERABLES - DEV ICE Final Result Performing Organization Address [facility] Co de Phone Number [facility] [place] [address] * POCT glucose (07/22/2020 11:34 AM FURNITURE RESTORER) Glucose, POC 137 70 - 199 mg/dL [facility] Blood specimen (specimen) 07/22/2020 11:34 AM FURNITURE RESTORER 07/22/2020 11:34 AM FURNITURE RESTORER us Clifton Jose MD PhD LAB POCT ORDERABLES - DEV ICE Final Result Performing Organization Address [facility] Co de Phone Number [facility] [place] [address] * POCT glucose (07/22/2020 7:56 AM FURNITURE RESTORER) Glucose, POC 124 70 - 199 mg/dL [facility] Blood specimen (specimen) 07/22/2020 7:56 AM FURNITURE RESTORER 07/22/2020 7:56 AM FURNITURE RESTORER Result Jena Jose MD PhD LAB POCT ORDERABLES - DEV ICE Final Result Performing Organization Address [facility] [place] [address] * POCT glucose (07/21/2020 10:03 PM FURNITURE RESTORER) Glucose, POC 115 70 - 199 mg/dL [facility] Blood specimen (specimen) 07/21/2020 10:03 PM FURNITURE RESTORER 07/21/2020 10:03 PM FURNITURE RESTORER Result Jena Ortega Day MD PhD LAB POCT ORDERABLES - DEV ICE Final Result Performing Organization Address City/[facility]/ZIP Co de Phone Number [facility] [place] [address] * POCT glucose (07/21/2020 5:20 PM FURNITURE RESTORER) Glucose, POC 171 70 - 199 mg/dL [facility] Blood specimen (specimen) 07/21/2020 5:20 PM FURNITURE RESTORER 07/21/2020 5:20 PM FURNITURE RESTORER Clifton Jose MD PhD LAB POCT ORDERABLES - DEV ICE Final Result Performing Organization Address [facility] Co de Phone Number [facility] Department [place] [address] * POCT glucose (07/21/2020 11:22 AM FURNITURE RESTORER) Glucose, POC 102 70 - 199 mg/dL [facility] Blood specimen (specimen) 07/21/2020 11:22 AM FURNITURE RESTORER 07/21/2020 11:22 AM FURNITURE RESTORER Clifton Jose MD PhD LAB POCT ORDERABLES - DEV ICE Final Result Performing Organization Address [facility] Co de Phone Number [facility] [place] [address] * POCT glucose (07/21/2020 7:49 AM FURNITURE RESTORER) Glucose, POC 108 70 - 199 mg/dL [facility] Blood specimen (specimen) 07/21/2020 7:49 AM FURNITURE RESTORER 07/21/2020 7:49 AM FURNITURE RESTORER us Clifton Jose MD PhD LAB POCT ORDERABLES - DEV ICE Final Result Performing Organization Address City/[facility]/ZIP Co de Phone Number [facility] [place] [address] * POCT glucose (07/20/2020 9:36 PM FURNITURE RESTORER) Glucose, POC 160 70 - 199 mg/dL [facility] Blood specimen (specimen) 07/20/2020 9:36 PM FURNITURE RESTORER 07/20/2020 9:36 PM FURNITURE RESTORER Clifton Jose MD PhD LAB POCT ORDERABLES - DEV ICE Final Result Performing Organization Address City/[facility]/[place] [address] * POCT glucose (07/20/2020 5:22 PM FURNITURE RESTORER) Glucose, POC 93 70 - 199 mg/dL [facility] Blood specimen (specimen) 07/20/2020 5:22 PM FURNITURE RESTORER 07/20/2020 5:22 PM FURNITURE RESTORER Clifton Jose MD PhD LAB POCT ORDERABLES - DEV ICE Final Result Performing Organization Address City/[facility]/[place] [address] * POCT glucose (07/20/2020 11:51 AM FURNITURE RESTORER) Glucose, POC 95 70 - 199 mg/dL [facility] Blood specimen (specimen) 07/20/2020 11:51 AM FURNITURE RESTORER 07/20/2020 11:51 AM FURNITURE RESTORER us Clifton Jose MD PhD LAB POCT ORDERABLES - DEV ICE Final Result Performing Organization Address City/[facility]/[place] [address] * POCT glucose (07/20/2020 10:10 AM FURNITURE RESTORER) Glucose, POC 100 70 - 199 mg/dL [facility] Blood specimen (specimen) 07/20/2020 10:10 AM FURNITURE RESTORER 07/20/2020 10:10 AM FURNITURE RESTORER us Clifton Jose MD PhD LAB POCT ORDERABLES - DEV ICE Final Result [facility] Department [place] [address] documented in this encounter Visit Diagnoses Diagnosis Recurrent seizures (CMS/HCC) (HCC)- Primary Unspecified epilepsy without mention of intractable epilepsy Diabetes (HCC) Type II or unspecified type diabetes mellitus without mention of complication, not stated as uncontrolled Hypertension Unspecified essential hypertension Asthma Unspecified asthma Hypothyroidism Unspecified hypothyroidism documented in this encounter Administered Medications Inactive Administered Medications - up to 3 most recent administrations Medication Order MAR Action Action Date Dose Rate Site albuterol HFA (PROVENTIL HFA,VENTOLIN HFA,PROAIR HFA) 90 mcg/actuation inhaler 2 puff 2 puff, inhalation, Every 4 hours PRN (first responder), wheezing, shortness of breath, Starting on Sun07/20/20 at 1019 Given 07/23/2020 8:28 PM FURNITURE RESTORER 2 puffs aspirin chewable tablet 81 mg 81 mg, oral, Daily, First dose on Sun07/21/20 at 0900 Given 07/26/2020 7:55 AM CDT 81 mg Given 07/25/2020 9:06 AM CDT 81 mg Given 07/24/2020 8:22 AM FURNITURE RESTORER 81 mg bacitracin-polymyxin B (POLYSPORIN) 500-10,000 unit/gram ointment tube 1 application 1 application (deactivated), topical, 2 times daily, First dose on Sun07/23/20 at 0900, Thin layer to left cheek (pink area) close to electrode gauze., Apply to affected area: other, Indications: Minor Bacterial Skin InfectionsIndications:Minor Bacterial Skin Infections Given 07/25/2020 8:46 PM CDT 1 application (deactivated) Given 07/25/2020 9:08 AM CDT 1 application (deactivat ed) Given 07/24/2020 9:23 PM FURNITURE RESTORER 1 application (deactivat ed) citalopram (CeleXA) tablet 40 mg 40 mg, oral, Every morning, First dose on Sun07/21/20 at 0900 Given 07/26/2020 7:55 AM CDT 40 mg Given 07/25/2020 9:04 AM CDT 40 mg Given 07/24/2020 8:22 AM FURNITURE RESTORER 40 mg cyclobenzaprine (FLEXERIL) tablet 10 mg 10 mg, oral, 2 times daily, First dose on Sun07/20/20 at 2100 Given 07/26/2020 7:56 AM CDT 10 mg Given 07/25/2020 8:46 PM CDT 10 mg Given 07/25/2020 9:06 AM CDT 10 mg dextrose (D10W) 10% bolus 250 mL 250 mL, intravenous, at 1,000 mL/hr, Administer over 15 Minutes, Every 15 min PRN, blood glucose less than 70 mg/dL and UNABLE to swallow/take PO glucose/juice., Starting on Sun07/20/20 at 1015, After treatment for hypoglycemia, recheck BG followed [...] glucose less than 70 mg/dL, Starting on Sun07/20/20 at 1015, If patient is alert and able to [...] Call MD for each episode of hypoglycemia. GLASS BLOWER STATES GLUTOSE-15 CONTAINS GLUCOSE 40% W/W (50% W/V), Indications: hypoglycemic disorderIndications:hypoglycemic disorder diphenhydrAMINE (BENADRYL) tab/cap 25 mg 25 mg, oral, 4 times daily PRN, itching, Starting on Sun07/20/20 at 1057 Given 07/24/2020 8:36 PM FURNITURE RESTORER 25 mg divalproex ER (DEPAKOTE ER) 24 hour tablet 1,000 mg 1,000 mg, oral, 2 times daily, First dose on Sun07/20/20 at 2100, Indications: epilepsyIndications:epilepsy Given 07/24/2020 8:22 AM FURNITURE RESTORER 1,000 mg Given 07/23/2020 8:18 PM FURNITURE RESTORER 1,000 mg Given 07/23/2020 9:46 AM FURNITURE RESTORER 1,000 mg divalproex ER (DEPAKOTE ER) 24 hour tablet 1,000 mg 1,000 mg, oral, Daily, First dose on Sun07/26/20 at 0900 Given 07/26/2020 7:55 AM CDT 1,000 mg divalproex ER (DEPAKOTE ER) 24 hour tablet 500 mg 500 mg, oral, 2 times daily, First dose (after last modification) on Sun07/25/20 at 2100, Indications: epilepsyIndications:epilepsy Given 07/25/2020 8:46 PM CDT 500 mg divalproex ER (DEPAKOTE ER) 24 hour tablet 500 mg 500 mg, oral, Nightly, First dose on Sun07/26/20 at 2100 divalproex ER (DEPAKOTE ER) 24 hour tablet 750 mg 750 mg, oral, 2 times daily, First dose (after last modification) on Sun07/24/20 at 2100, Indications: epilepsyIndications:epilepsy Given 07/25/2020 9:05 AM CDT 750 mg Given 07/24/2020 9:18 PM FURNITURE RESTORER 750 mg enalapril (VASOTEC) tablet 5 mg 5 mg, oral, Daily, First dose on Sun07/21/20 at 0900 Given 07/26/2020 7:55 AM CDT 5 mg Given 07/25/2020 9:05 AM CDT 5 mg Given 07/24/2020 8:22 AM FURNITURE RESTORER 5 mg fenofibrate nanocrystallized (TRICOR) tablet 145 mg 145 mg, oral, Daily, First dose on Sun07/21/20 at 0900 Given 07/26/2020 7:56 AM CDT 145 mg Given 07/25/2020 9:05 AM CDT 145 mg Given 07/24/2020 8:22 AM FURNITURE RESTORER 145 mg fluticasone furoate-vilanteroL (BREO ELLIPTA) 200-25 mcg/dose inhaler 1 puff 1 puff, inhalation, Daily (first responder), First dose (after last modification) on Sun07/21/20 at 0800 Given 07/20/2020 1:55 PM FURNITURE RESTORER 1 puff fluticasone furoate-vilanteroL (BREO ELLIPTA) 200-25 mcg/dose inhaler 1 puff 1 puff, inhalation, Daily, First dose (after last modification) on Sun07/21/20 at 0900, RN to administer Given 07/26/2020 7:58 AM CDT 1 puff Given 07/25/2020 9:05 AM CDT 1 puff Given 07/24/2020 8:23 AM FURNITURE RESTORER 1 puff fluticasone propionate (FLONASE) 50 mcg/actuation nasal spray 2 spray 2 spray, each nostril, Nightly, First dose on Sun07/20/20 at 2100 Given 07/25/2020 8:45 PM CDT 2 sprays Given 07/24/2020 9:00 PM FURNITURE RESTORER 2 sprays Given 07/23/2020 8:27 PM FURNITURE RESTORER 2 sprays glucagon injection 1 mg 1 mg, intramuscular, Administer over 1 Minutes, Every 30 min PRN, low blood sugar, blood glucose less than 70 mg/dL AND no IV access AND unable to take PO glucose/jiuce., Starting on Sun07/20/20 at 1015, After Glucagon is administered, position patient on [...] with 1 mL SWFI. Use immediately following reconstitution., Indications: HypoglycemiaIndications:Hypoglycemia ibuprofen (ADVIL,MOTRIN) tablet 800 mg 800 mg, oral, 3 times daily PRN, 1st line for pain, Starting on Sun07/20/20 at 1012 insulin lispro (HumaLOG, ADMELOG) injection 1-2 Units 1-2 Units, subcutaneous, 3 times daily with meals, First dose on Sun07/20/20 at 1200, Blood Sugar Extra Low Dose meal time - PO patients 200 or less No Insulin 201 - 250 1 unit 251 - 299 2 units Greater than 299 Call MD for hyperglycemia management instructions Do NOT hold for NPO status., Indications: Diabetes MellitusIndications:Diabetes Mellitus levothyroxine (SYNTHROID) tablet 50 mcg 50 mcg, oral, Daily (early AM), First dose on Sun07/21/20 at 0600, Administer on an empty stomach, preferably 30 minutes before breakfast. Take 4 hours apart from antacids, iron and calcium products. Given 07/26/2020 6:31 AM CDT 50 mcg Given 07/25/2020 6:11 AM CDT 50 mcg Given 07/24/2020 6:24 AM FURNITURE RESTORER 50 mcg montelukast (SINGULAIR) tablet 10 mg 10 mg, oral, Daily, First dose on Sun07/21/20 at 0900 Given 07/26/2020 7:56 AM CDT 10 mg Given 07/25/2020 9:06 AM CDT 10 mg Given 07/24/2020 8:22 AM FURNITURE RESTORER 10 mg nortriptyline (PAMELOR) capsule 75 mg 75 mg, oral, 2 times daily, First dose on Sun07/20/20 at 2100 Given 07/26/2020 7:55 AM CDT 75 mg Given 07/25/2020 8:46 PM CDT 75 mg Given 07/25/2020 9:06 AM CDT 75 mg omega-3 fatty acids (LOVAZA) capsule 2 g 2 g, oral, 2 times daily, First dose on Sun07/20/20 at 2100 Given 07/26/2020 7:55 AM CDT 1 g Given 07/25/2020 8:47 PM CDT 2 g Given 07/25/2020 9:06 AM CDT [address] (PROTONIX) extended release tablet 40 mg 40 mg, oral, Daily, First dose on Sun07/21/20 at 0900, Do not crush, chew, cut, dissolve, open or otherwise manipulate tablet/capsule., Indications: Treatment of Non-Bleeding Gastric DisorderIndications:Treatment of Non-Bleeding Gastric Disorder Given 07/26/2020 7:57 AM CDT 40 mg Given 07/25/2020 9:06 AM CDT 40 mg Given 07/24/2020 8:22 AM FURNITURE RESTORER 40 mg pioglitazone (ACTOS) tablet 30 mg 30 mg, oral, Daily, First dose on Sun07/21/20 at 0900, Take with food, Indications: type 2 diabetes mellitusIndications:type 2 diabetes mellitus Given 07/26/2020 7:56 AM CDT 30 mg Given 07/25/2020 9:06 AM CDT 30 mg Given 07/24/2020 8:21 AM FURNITURE RESTORER 30 mg rosuvastatin (CRESTOR) tablet 40 mg 40 mg, oral, Nightly, First dose on Sun07/20/20 at 2100 Given 07/25/2020 8:46 PM CDT 40 mg Given 07/24/2020 9:19 PM FURNITURE RESTORER 40 mg Given 07/23/2020 8:18 PM FURNITURE RESTORER 40 mg sodium chloride 0.9% flush 0.5-20 mL 0.5-20 mL, intra-catheter, Every 8 hours scheduled, First dose on Sun07/20/20 at 1400, Flush volume based on line type and size. Given 07/25/2020 6:11 AM CDT 10 mL Given 07/24/2020 10:00 PM FURNITURE RESTORER 10 mL sodium chloride 0.9% flush 0.5-20 mL 0.5-20 mL, intra-catheter, As needed, line care, Starting on Sun07/20/20 at 1014, Flush volume based on line type and size. Flush before and after each use. Given 07/25/2020 6:09 AM CDT 10 mL Given 07/24/2020 9:20 PM FURNITURE RESTORER 10 mL topiramate (TOPAMAX) tablet 200 mg 200 mg, oral, Nightly, First dose on Sun07/20/20 at 2100 Given 07/21/2020 10:02 PM FURNITURE RESTORER 200 mg Given 07/20/2020 9:42 PM FURNITURE RESTORER 200 mg topiramate (TOPAMAX) tablet 200 mg 200 mg, oral, 2 times daily, First dose (after last modification) on Sun07/22/20 at 2100 Given 07/26/2020 7:56 AM CDT 200 mg Given 07/25/2020 8:46 PM CDT 200 mg Given 07/25/2020 9:05 AM CDT 200 mg topiramate (TOPAMAX) tablet 300 mg 300 mg, oral, Daily, First dose on Sun07/21/20 at 0900 Given 07/22/2020 8:10 AM FURNITURE RESTORER 300 mg Given 07/21/2020 8:32 AM FURNITURE RESTORER 300 mg umeclidinium (INCRUSE ELLIPTA) 62.5 mcg/actuation inhaler 62.5 mcg 62.5 mcg (1 puff), inhalation, Daily, First dose (after last modification) on Sun07/20/20 at 1445, RN to administer Given 07/26/2020 7:58 AM CDT 62.5 mcg Given 07/25/2020 9:05 AM CDT 62.5 mcg Given 07/24/2020 8:23 AM FURNITURE RESTORER 62.5 mcg documented in this encounter Discontinued Medications Medication Sig Discontinue Reason Start Date End Da te topiramate (TOPAMAX) 200 mg tablet Take 1 tablet (200 mg total) by mouth 2 (two) times a day Reorder 05/04/2020 07/26/2020 divalproex ER (DEPAKOTE ER) 500 mg 24 hr tabletIndications:epil epsy Take 2 tablets (1,000 mg total) by mouth 2 (two) times a day Reorder 05/04/2020 07/26/2020 topiramate (TOPAMAX) 100 mg tablet Take 1 tablet (100 mg total) by mouth nightly [take with 200mg tab at HS. Total HS dose: 300mg] Stop Taking at Discharge 05/04/2020 07/26/2020 documented as of this encounter Historical Medications * This list may reflect changes made after this encounter. umeclidinium (INCRUSE ELLIPTA) 62.5 mcg/actuation blister with device Incruse Ellipta 62.5 mcg/actuation powder for inhalation fenofibrate (TRIGLIDE) 160 mg tablet Take 1 tablet (160 mg total) by mouth nightly 07/04/2020 rosuvastatin (CRESTOR) 40 mg tablet Take 1 tablet (40 mg total) by mouth nightly 06/04/2020 omega-3 fatty acids (LOVAZA) 1 gram capsule added in this encounter Active and Recently Administered Medications Due to Daylight Saving Time, this section may contain times in both FURNITURE RESTORER and CDT. Scheduled Medication Order 07/24/2020 07/25/2020 07/26/2020 aspirin chewable tablet 81 mg 81 mg, oral, Daily, First dose on Sun07/21/20 at 0900 0822 (Given - Provider: Qasim Sinclair RN) 0906 (Given - Provider: Qasim Sinclair RN) 0755 (Given - Provider: Tracee Painting RN) bacitracin-polymyxin B (POLYSPORIN) 500-10,000 unit/gram ointment tube 1 application 1 application (deactivated), topical, 2 times daily, First dose on Sun07/23/20 at 0900, Thin layer to left cheek (pink area) close to electrode gauze., Apply to affected area: other, Indications: Minor Bacterial Skin Infections 0823 (Given - Provider: Qasim Sinclair RN)2122 (Given - Provider: Mahogany Pascual RN) 09 (Given - Provider: Qasim Sinclair RN)2045 (Given - Provider: Mahogany Pascual RN) 0758 (Not Given - Provider: Tracee Painting RN - Reason: Patient/family refused) citalopram (CeleXA) tablet 40 mg 40 mg, oral, Every morning, First dose on Sun07/21/20 at 0900 0822 (Given - Provider: Qasim Sinclair RN) 0904 (Given - Provider: Qasim Sinclair RN) 0755 (Given - Provider: Tracee Painting RN) cyclobenzaprine (FLEXERIL) tablet 10 mg 10 mg, oral, 2 times daily, First dose on Sun07/20/20 at 2100 0822 (Given - Provider: Qasim Sinclair RN)211 (Given - Provider: Mahogany Pascual, SYLVIA) 09 (Given - Provider: Qasim Sinclair RN)2045 (Given - Provider: Mahogany Pascual RN) 0756 (Given - Provider: Tracee Painting RN) divalproex ER (DEPAKOTE ER) 24 hour tablet 1,000 mg (CANCELED) 1,000 mg, oral, 2 times daily, First dose on Sun07/20/20 at 2100, Indications: epilepsy 0822 (Given - Provider: Qasim Sinclair RN) divalproex ER (DEPAKOTE ER) 24 hour tablet 1,000 mg 1,000 mg, oral, Daily, First dose on Sun07/26/20 at 0900 0755 (Given - Provider: Tracee Painting RN) divalproex ER (DEPAKOTE ER) 24 hour tablet 500 mg (CANCELED) 500 mg, oral, 2 times daily, First dose (after last modification) on Sun07/25/20 at 2100, Indications: epilepsy 2045 (Given - Provider: Mahogany Pascual RN) divalproex ER (DEPAKOTE ER) 24 hour tablet 500 mg 500 mg, oral, Nightly, First dose on Sun07/26/20 at 2100 divalproex ER (DEPAKOTE ER) 24 hour tablet 750 mg (CANCELED) 750 mg, oral, 2 times daily, First dose (after last modification) on Sun07/24/20 at 2100, Indications: epilepsy 2117 (Given - Provider: Mahogany Pascual RN) 0905 (Given - Provider: Qasim Sinclair RN) enalapril (VASOTEC) tablet 5 mg 5 mg, oral, Daily, First dose on Sun07/21/20 at 0900 0822 (Given - Provider: Qasim Sinclair RN) 0905 (Given - Provider: Qasim Sinclair RN) 0755 (Given - Provider: Tracee Painting RN) fenofibrate nanocrystallized (TRICOR) tablet 145 mg 145 mg, oral, Daily, First dose on Sun07/21/20 at 0900 0822 (Given - Provider: Qasim Sinclair RN) 0905 (Given - Provider: Qasim Sinclair RN) 0756 (Given - Provider: Tracee Painting RN) fluticasone furoate-vilanteroL (BREO ELLIPTA) 200-25 mcg/dose inhaler 1 puff 1 puff, inhalation, Daily, First dose (after last modification) on Sun07/21/20 at 0900, RN to administer 0823 (Given - Provider: Qasim Sinclair RN) 0905 (Given - Provider: Qasim Sinclair RN) 0758 (Given - Provider: Tracee Painting RN) fluticasone propionate (FLONASE) 50 mcg/actuation nasal spray 2 spray 2 spray, each nostril, Nightly, First dose on Sun07/20/20 at 2100 2100 (Given - Provider: Mahogany Pascual RN) 2045 (Given - Provider: Mahogany Pascual RN) insulin lispro (HumaLOG, ADMELOG) injection 1-2 Units 1-2 Units, subcutaneous, 3 times daily with meals, First dose on Sun07/20/20 at 1200, Blood Sugar Extra Low Dose meal time - PO patients 200 or less No Insulin 201 - 250 1 unit 251 - 299 2 units Greater than 299 Call MD for hyperglycemia management instructions Do NOT hold for NPO status., Indications: Diabetes Mellitus 0803 (Not Given - Provider: Qasim Sinclair RN - Reason: Other)1200 (Not Given - Provider: Qasim Sinclair RN - Reason: Order parameters not met)1742 (Not Given - Provider: Qasim Sinclair RN - Reason: Order parameters not met) 0800 (Not Given - Provider: Qasim Sinclair RN - Reason: Order parameters not met)1200 (Not Given - Provider: Qasim Sinclair RN - Reason: Order parameters not met)1737 (Not Given - Provider: Qasim Sinclair RN - Reason: Order parameters not met) 0733 (Not Given - Provider: Tracee Painting RN - Reason: Order parameters not met)1134 (Not Given - Provider: Tracee Painting RN - Reason: Order parameters not met) levothyroxine (SYNTHROID) tablet 50 mcg 50 mcg, oral, Daily (early AM), First dose on Sun07/21/20 at 0600, Administer on an empty stomach, preferably 30 minutes before breakfast. Take 4 hours apart from antacids, iron and calcium products. 0624 (Given - Provider: Laura Knox RN) 06 (Given - Provider: Mahogany Pascual, SYLVIA) 0631 (Given - Provider: Mahogany Pascual, SYLVIA) montelukast (SINGULAIR) tablet 10 mg 10 mg, oral, Daily, First dose on Sun07/21/20 at 0900 0822 (Given - Provider: Qasim Sinclair RN) 09 (Given - Provider: Qasim Sinclair RN) 075 (Given - Provider: Tracee Painting RN) nortriptyline (PAMELOR) capsule 75 mg 75 mg, oral, 2 times daily, First dose on Sun07/20/20 at 2100 0822 (Given - Provider: Qasim Sinclair RN)2118 (Given - Provider: Mahogany Pascual RN) 905 (Given - Provider: Qasim Sinclair RN)2045 (Given - Provider: Mahogany Pascual RN) 075 (Given - Provider: Tracee Painting RN) omega-3 fatty acids (LOVAZA) capsule 2 g 2 g, oral, 2 times daily, First dose on Sun07/20/20 at 2099 08 (Given - Provider: Qasim Sinclair RN)2118 (Given - Provider: Mahogany Pascual RN) 905 (Given - Provider: Qasim Sinclair RN)2046 (Given - Provider: Mahogany Pascual RN) 075 (Given - Provider: Tracee Painting RN) pantoprazole DR (PROTONIX) extended release tablet 40 mg 40 mg, oral, Daily, First dose on Sun07/21/20 at 0900, Do not crush, chew, cut, dissolve, open or otherwise manipulate tablet/capsule., Indications: Treatment of Non-Bleeding Gastric Disorder 821 (Given - Provider: Qasim Sinclair RN) 905 (Given - Provider: Qasim Sinclair RN) 075 (Given - Provider: Tracee Painting RN) pioglitazone (ACTOS) tablet 30 mg 30 mg, oral, Daily, First dose on Sun07/21/20 at 0900, Take with food, Indications: type 2 diabetes mellitus 08 (Given - Provider: Qasim Sinclair RN) 905 (Given - Provider: Qasim Sinclair RN) 075 (Given - Provider: Tracee Painting RN) rosuvastatin (CRESTOR) tablet 40 mg 40 mg, oral, Nightly, First dose on Sun07/20/20 at 2099 2118 (Given - Provider: Mahogany Pascual RN) 2045 (Given - Provider: Mahogany Pascual RN) sodium chloride 0.9% flush 0.5-20 mL 0.5-20 mL, intra-catheter, Every 8 hours scheduled, First dose on Sun07/20/20 at 1400, Flush volume based on line type and size. 0440 (Canceled Entry - Provider: Laura Knox RN)1743 (Not Given - Provider: Qasim Sinclair RN - Reason: Other)220 (Given - Provider: Mahogany Pascual RN) 06 (Given - Provider: Mahogany Pascual RN)173 (Not Given - Provider: Qasim Sinclair RN - Reason: Other)2050 (Not Given - Provider: Mahogany Pascual RN - Reason: Other - Comment: pt has no iv) 0633 (Not Given - Provider: Mahogany Pascual RN - Reason: Other - Comment: no iv)1400 (Due) topiramate (TOPAMAX) tablet 200 mg 200 mg, oral, 2 times daily, First dose (after last modification) on Sun07/22/20 at 2100 0822 (Given - Provider: Qasim Sinclair RN)2119 (Given - Provider: Mahogany Pascual RN) 09 (Given - Provider: Qasim Sinclair RN)2045 (Given - Provider: Mahogany Pascual RN) 075 (Given - Provider: Tracee Painting RN) umeclidinium (INCRUSE ELLIPTA) 62.5 mcg/actuation inhaler 62.5 mcg 62.5 mcg (1 puff), inhalation, Daily, First dose (after last modification) on Sun07/20/20 at 1445, RN to administer 0823 (Given - Provider: Qasim Sinclair RN) 09 (Given - Provider: Qasim Sinclair RN) 0758 (Given - Provider: Tracee Painting RN) PRN Medication Order 07/24/2020 07/25/2020 07/26/2020 albuterol HFA (PROVENTIL HFA,VENTOLIN HFA,PROAIR HFA) 90 mcg/actuation inhaler 2 puff 2 puff, inhalation, Every 4 hours PRN (first responder), wheezing, shortness of breath, Starting on Sun07/20/20 at 1019 dextrose (D10W) 10% bolus 250 mL(Linked Group 1) 250 mL, intravenous, at 1,000 mL/hr, Administer over 15 Minutes, Every 15 min PRN, blood glucose less than 70 mg/dL and UNABLE to swallow/take PO glucose/juice., Starting on Sun07/20/20 at 1015, After treatment for hypoglycemia, recheck BG followed [...] glucose less than 70 mg/dL, Starting on Sun07/20/20 at 1015, If patient is alert and able to [...] Call MD for each episode of hypoglycemia. GLASS BLOWER STATES GLUTOSE-15 CONTAINS GLUCOSE 40% W/W (50% W/V), Indications: hypoglycemic disorder diphenhydrAMINE (BENADRYL) tab/cap 25 mg 25 mg, oral, 4 times daily PRN, itching, Starting on Sun07/20/20 at 1057 2036 (Given - Provider: Mahogany Pascual RN) glucagon injection 1 mg 1 mg, intramuscular, Administer over 1 Minutes, Every 30 min PRN, low blood sugar, blood glucose less than 70 mg/dL AND no IV access AND unable to take PO glucose/jiuce., Starting on Sun07/20/20 at 1015, After Glucagon is administered, position patient on [...] with 1 mL SWFI. Use immediately following reconstitution., Indications: Hypoglycemia ibuprofen (ADVIL,MOTRIN) tablet 800 mg 800 mg, oral, 3 times daily PRN, 1st line for pain, Starting on Sun07/20/20 at 1012 sodium chloride 0.9% flush 0.5-20 mL 0.5-20 mL, intra-catheter, As needed, line care, Starting on Sun07/20/20 at 1014, Flush volume based on line type and size. Flush before and after each use. 2119 (Given - Provider: Mahogany Pascual, SYLVIA) 608 (Given - Provider: Mahogany Pascual, SYLVIA) Linked Groups Order Group 1: dextrose (GLUTOSE) 40 % gel 15 gJump to med 15 g, oral, Every 15 min PRN, low blood sugar, blood glucose less than 70 mg/dL, Starting on Sun07/20/20 at 1015, If patient is alert and able to [...] Call MD for each episode of hypoglycemia. GLASS BLOWER STATES GLUTOSE-15 CONTAINS GLUCOSE 40% W/W (50% W/V), Indications: hypoglycemic disorder Or dextrose (D10W) 10% bolus 250 mLJump to med 250 mL, intravenous, at 1,000 mL/hr, Administer over 15 Minutes, Every 15 min PRN, blood glucose less than 70 mg/dL and UNABLE to swallow/take PO glucose/juice., Starting on Sun07/20/20 at 1015, After treatment for hypoglycemia, recheck BG followed [...] Count Last Ordered Date First Ordered Date divalproex ER (DEPAKOTE ER) 24 hour tablet 500 mg 1 07/26/2020 dextrose (D10W) 10% bolus 250 mL 1 07/21/19 21 dextrose (GLUTOSE) 40 % gel 15 g 1 07/21/19 21 fluticasone furoate-vilanter oL (BREO ELLIPTA) 200-25 mcg/dose inhaler 1 puff 1 07/20/2020 glucagon injection 1 mg 1 07/20/2020 ibuprofen (ADVIL,MOTRIN) tablet 800 mg 1 insulin lispro (HumaLOG, ADM ELOG) injection 1-2 Units 1 07/20/2020 umeclidinium (INCRUSE ELLIPT A) 62.5 mcg/actuation inhaler 62.5 mcg 1 07/20/2020 Lab Orders Without Results Count Last Ordered D ate First Ordered Date POCT GLUCOSE DEVICE 11 07/26/2020 07/21/19 21 Nursing Count Last Ordered Date First Orde red Date VITAL SIGNS 2 07/21/2020 07/20/2020 WEIGH PATIENT 1 07/20/2020 CORE MEASURES Count Last Ordered Date First Ord ered Date REASON FOR NO VTE PROPHYLAXIS AT ADMISSION 1 07/20/2020 documented in this encounter Care Teams Relief Pilot Relationship Specialty Start Date End Date Sergey Wilson MD PCP - General 09/20/16 documented as of this encounter
--- OUTSIDE RECORDS SUMMARY | 2024-05-24 02:07 | XMS_ITS | Encounter Summary ---
Author Organization [facility] Healthcare Address [address] [place] [address] Care Team Providers Care Registered Nursing Professor Name Role Phone Sergey Wilson MD Primary Care Provider [phone] Encounter Details Date Type Department Care Team (Latest Contact Info) Description 07/15/2020 2:35 PM SALES SUPPORT ADVISOR - 07/15/2020 11:59 PM SALES SUPPORT ADVISOR Hospital Encounter [facility] Discharge Disposition: Discharge to home or self care Social History Tobacco Use Types Packs/Day Years Used Date Smoking Tobacco: Former Smokeless Tobacco: Never Alcohol Use Standard Drinks/Week Comments No 0 (1 standard drink = 0.6 oz pur e alcohol) Sex and Gender Information Value Date Recorded Sex Assigned at Not on file 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 SALES SUPPORT ADVISOR Gender Identity Not on file Sexual Orientation Not on file documented as of this encounter Medications at Time of Discharge aspirin 81 mg chewable tablet Take 1 tablet (81 mg total) by mouth daily citalopram (CeleXA) 40 mg tablet Take 1 tablet (40 mg total) by mouth every morning cyanocobalamin/f olic acid (vitamin [id number]) 2,500-400 mcg tablet,disintegr ating 05[birth year]14[birth year]1969 cyclobenzaprine [...] 1 tablet (50 mcg total) by mouth 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
--- OUTSIDE RECORDS SUMMARY | 2024-05-24 02:08 | XMS_ITS | Encounter Summary ---
Author Organization [facility] Address [address] [place] [address] Phone Care Team Providers Care Poultry Vaccinator Name Role Phone Sergey Wilson MD Primary Care Provider [phone] Encounter Details Date Type Department Care Team (Late st Contact Info) Description 11/18/2019 Telephone [facility] Epilepsy [address] [facility] 6th [place] [address] [place] [phone] Ana Parrish, SYLVIA Social History Tobacco Use Types Packs/Day Years Used Date Smoking Tobacco: Former Smokeless Tobacco: Never Alcohol Use Standard Drinks/Week Comments No 0 (1 standard drink = 0.6 oz pur e alcohol) Sex and Gender Information Value Date Recorded Sex Assigned at Not on file 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 COPY CHASER Gender Identity Not on file Sexual Orientation Not on file documented as of this encounter Miscellaneous Notes * Telephone Encounter - Ana Parrish RN - 11/18/2019 11:12 AM CDT YNES Kern~ Pt called in to say he fell this past Sat, and had to have stitches in his head. I will attempt to get records from [facility]. He stated he was dizzy and off balance and stated it was the VPA. Pt denies sz activity. Pt adamantly denied szs or NEE's and then admitted he was out for a few minutes. He has called his PMD and is awaiting a return call. In reviewing his meds, it was noted that he never decreased the TPM as you had ordered in his October visit. Pt wrote down to decrease TPM as ordered and agreed to call with update in one month. I also set a reminder to call him in one month to assess his status. Reviewed that his brother should be discussing CBT with him, per our conversation. I again emphasized that it is an important part of his seizure management to participate in. He verbalized understanding~Ana documented in this encounter Plan of Treatment Not on file documented as of this encounter Visit Diagnoses Not on filedocumented in this encounter Care Teams Poultry Vaccinator Relationship Specialty Start Date End Date Sergey Wilson MD PCP - General 09/20/16 documented as of this encounter
--- OUTSIDE RECORDS SUMMARY | 2024-05-24 02:08 | XMS_ITS | Encounter Summary ---
Author Organization [facility] Address [address] [place] [address] Phone Care Team Providers Care Senior Assistant Manager Name Role Phone Sergey Wilson MD Primary Care Provider [phone] Encounter Details Date Type Department Care Team (Late st Contact Info) Description 02/27/2020 Telephone [facility] Epilepsy [address] [place] [address] [place] [phone] Ana Parrish RN Social History Tobacco Use Types Packs/Day Years Used Date Smoking Tobacco: Former Smokeless Tobacco: Never Alcohol Use Standard Drinks/Week Comments No 0 (1 standard drink = 0.6 oz pur e alcohol) Sex and Gender Information Value Date Recorded Sex Assigned at Not on file 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 Relayed that return call had been attempted but phone rang without picking up. Reviewed Dr Jose's information and pt agreed to follow up call in one month. Pt also stated he won a significant amount of money from [employer] and asked this nurse notto tell his physician as he wanted to surprise Dr Jose at his April visit. He stated he had hisbrother working on claiming it. Reminder is set to call pt in one month. documented in this encounter Plan of Treatment Not on file documented as of this encounter Visit Diagnoses Not on filedocumented in this encounter Care Teams Senior Assistant Manager Relationship Specialty Start Date End Date Sergey Wilson MD PCP - General 09/20/16 documented as of this encounter
--- OUTSIDE RECORDS SUMMARY | 2024-05-24 02:08 | XMS_ITS | Encounter Summary ---
Author Organization [facility] Address [address] [place] [address] Phone Care Team Providers Care Rooming House Operator Name Role Phone Sergey Wilson MD Primary Care Provider [phone] Encounter Details Date Type Department Care Team (Late st Contact Info) Description 03/26/2020 Telephone [facility] Epilepsy [address] [facility] [address]th [address] [place] [phone] Ana Parrish RN Social History Tobacco Use Types Packs/Day Years Used Date Smoking Tobacco: Former Smokeless Tobacco: Never Alcohol Use Standard Drinks/Week Comments No 0 (1 standard drink = 0.6 oz pur e alcohol) Sex and Gender Information Value Date Recorded Sex Assigned at Not on file 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 Pt stated he is doing well with current dosing and denies sz activity. STRIAL EDUCATION INSTRUCTOR documented in this encounter Plan of Treatment Not on file documented as of this encounter Visit Diagnoses Not on filedocumented in this encounter Care Teams Rooming House Operator Relationship Specialty Start Date End Date Sergey Wilson MD PCP - General 09/20/16 documented as of this encounter
--- OUTSIDE RECORDS SUMMARY | 2024-05-24 02:08 | XMS_ITS | Encounter Summary ---
Author Organization [facility] Address [address] [place] [address] Phone Care Team Providers Care Training Coordinator Name Role Phone Sergey Wilson MD Primary Care Provider [phone] Encounter Details Date Type Department Care Team (Late st Contact Info) Description 12/22/[address] [facility] Epilepsy [address] 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 Told pt that he needed to speak to the nurse at the hospital about getting his AEDs. Overheard pt speaking to his nurse, who stated she would talk to the doctor about his meds. Phone was disconnected abruptly. Called pt back and LVM encouraging him to call his brother to have him advocate while he is inpatient. documented in this encounter Plan of Treatment Not on file documented as of this encounter Visit Diagnoses Not on filedocumented in this encounter Care Teams Training Coordinator Relationship Specialty Start Date End Date Sergey Wilson MD PCP - General 09/20/16 documented as of this encounter
--- OUTSIDE RECORDS SUMMARY | 2024-05-24 02:08 | XMS_ITS | Encounter Summary ---
Author Organization [facility] Address [address] [place] [address] Phone Care Team Providers Care Burlapper Name Role Phone Sergey Wilson MD Primary Care Provider [phone] Encounter Details Date Type Department Care Team (Late st Contact Info) Description 01/21/2020 Telephone [facility] Epilepsy [address] [facility] 6th [place] [address] [place] [phone] Ana Parrish RN Social History Tobacco Use Types Packs/Day Years Used Date Smoking Tobacco: Former Smokeless Tobacco: Never Alcohol Use Standard Drinks/Week Comments No 0 (1 standard drink = 0.6 oz pur e alcohol) Sex and Gender Information Value Date Recorded Sex Assigned at Not on file 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 He also asked if new tablet strength had been filled. Relayed that it was filled on 01/20/20 and reviewed TPM dosing of 200/300 again. Pt agreed to call in one month with update and verbalized understanding of new dosing. documented in this encounter Plan of Treatment Not on file documented as of this encounter Visit Diagnoses Not on filedocumented in this encounter Care Teams Burlapper Relationship Specialty Start Date End Date Sergey Wilson MD PCP - General 09/20/16 documented as of this encounter
--- OUTSIDE RECORDS SUMMARY | 2024-05-24 02:08 | XMS_ITS | Encounter Summary ---
Author Organization [facility] Address [address] [place] [address] Phone Care Team Providers Care Dining Room Captain Name Role Phone Sergey Wilson MD Primary Care Provider [phone] Encounter Details Date Type Department Care Team (Late st Contact Info) Description 03/18/2020 Telephone [facility] Epilepsy [address] [facility] 6th [place] [address] [place] [phone] Ana Parrish RN Social History Tobacco Use Types Packs/Day Years Used Date Smoking Tobacco: Former Smokeless Tobacco: Never Alcohol Use Standard Drinks/Week Comments No 0 (1 standard drink = 0.6 oz pur e alcohol) Sex and Gender Information Value Date Recorded Sex Assigned at Not on file 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 Total HS dose: 300mg] 60 tablet 1 03/19/2020 05/04/2020 documented in this encounter Miscellaneous Notes * Telephone Encounter - Ana Parrish RN - 03/19/2020 4:37 PM SPEECH CLINICIAN Pt called in asking about his TPM tablets. He stated the pharmacy had filled TPM 100mg tablets and he needed 200mg tablets. Reviewed his current dosing and noted TPM was inadvertently d/c'd. Relayed that TPM 200mg tablets had been filled on 03/18/20. Entered refill for TPM 100mg tablets. Encouraged pt to call the pharmacy to ask about TPM 200mg tablets. He stated he would. CH CLINICIAN * Telephone Encounter - Ana Parrish RN - 03/18/2020 4:30 PM SPEECH CLINICIAN Pt LVM on the scriptline asking for call back. CH CLINICIAN documented in this encounter Plan of Treatment Not on file documented as of this encounter Visit Diagnoses Not on filedocumented in this encounter Care Teams Dining Room Captain Relationship Specialty Start Date End Date Sergey Wilson MD PCP - General 09/20/16 documented as of this encounter
--- OUTSIDE RECORDS SUMMARY | 2024-05-24 02:08 | XMS_ITS | Encounter Summary ---
Author Organization [facility] Address [address] [place] [address] Phone Care Team Providers Care Orthotic Practitioner Name Role Phone Sergey Wilson MD Primary Care Provider [phone] Encounter Details Date Type Department Care Team (Late st Contact Info) Description 12/22/2019 Telephone [facility] Epilepsy [address] 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 He stated his arm is very sore and that he shared what his current med regimen is. Encouraged him to share office number if they question what his current med orders are. I reviewed that he needed to contact the nurse at the hospital to discuss his plan of care and he agreed to call after discharge. Pt agreed. I set a reminder to check on his disposition next week.~Ana documented in this encounter Plan of Treatment Not on file documented as of this encounter Visit Diagnoses Not on filedocumented in this encounter Care Teams Orthotic Practitioner Relationship Specialty Start Date End Date Sergey Wilson MD PCP - General 09/20/16 documented as of this encounter
--- OUTSIDE RECORDS SUMMARY | 2024-05-24 02:08 | XMS_ITS | Encounter Summary ---
Author Organization [facility] Address [address] [place] [address] Phone Care Team Providers Care Aircraft Engine Mechanic Overhaul Name Role Phone Sergey Wilson MD Primary Care Provider [phone] Encounter Details Date Type Department Care Team (Late st Contact Info) Description 12/29/2019 Telephone [facility] Epilepsy [address] [facility] 6th [place] [phone] Ana Parrish RN Social History Tobacco Use Types Packs/Day Years Used Date Smoking Tobacco: Former Smokeless Tobacco: Never Alcohol Use Standard Drinks/Week Comments No 0 (1 standard drink = 0.6 oz pur e alcohol) Sex and Gender Information Value Date Recorded Sex Assigned at Not on file 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 Noted pt attributed recent eventto TPM decrease. Called pt who stated he had an event of LOC this past weekend but stated he thought it was stress. Denied sz activity. Pt has not started CBT as recommended by Dr Jose. Encouraged himto speak to his brother about it and pt agreed to call at the end of the month with update since TPM decreased to 300mg BID. documented in this encounter Plan of Treatment Not on file documented as of this encounter Visit Diagnoses Not on filedocumented in this encounter Care Teams Aircraft Engine Mechanic Overhaul Relationship Specialty Start Date End Date Sergey Wilson MD PCP - General 09/20/16 documented as of this encounter
--- OUTSIDE RECORDS SUMMARY | 2024-05-24 02:08 | XMS_ITS | Encounter Summary ---
Author Organization [facility] Address [address] [place] [address] Care Team Providers Care Clerk Entry Level Name Role Phone Sergey Wilson MD Primary Care Provider [phone] Encounter Details Date Type Department Care Team (Latest Contact Info) Description 06/11/2019 6:37 PM TELEGRAPH OFFICE ROUTE AIDE - 06/11/2019 11:59 PM TELEGRAPH OFFICE ROUTE AIDE Hospital Encounter [facility] Discharge Disposition: Discharge to home or self care Social History Tobacco Use Types Packs/Day Years Used Date Smoking Tobacco: Former Smokeless Tobacco: Never Alcohol Use Standard Drinks/Week Comments No 0 (1 standard drink = 0.6 oz pur e alcohol) Sex and Gender Information Value Date Recorded Sex Assigned at Not on file 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 TELEGRAPH OFFICE ROUTE AIDE Gender Identity Not on file Sexual Orientation Not on file documented as of this encounter Medications at Time of Discharge aspirin 81 mg chewable tablet Take 1 tablet (81 mg total) by mouth daily citalopram (CeleXA) 40 mg tablet Take 1 tablet (40 mg total) by mouth every morning cyanocobalamin/f olic acid (vitamin [id number] acid) 2,500-400 mcg tablet,disintegr ating 05/14/1969 cyclobenzaprine [...] 1 tablet (50 mcg total) by mouth mold bunch trimmer before breakfast montelukast (SINGULAIR) 10 mg tablet Take 1 tablet (10 mg total) by mouth daily naproxen sodium 220 mg capsule ALEVE CAPSULE 05/14/1969 nortriptyline (PAMELOR) 75 mg capsule Take 1 capsule (75 mg total) by mouth 2 (two) times a day omeprazole (PriLOSEC) 20 mg capsule Take 1 capsule (20 mg total) by mouth daily before breakfast SOLOMO365 ULTRA BLUE TEST STRIP strip USE TO TEST QD 0 09/13/2017 OnefeatUCH ULTRA2 kit USE TO TEST QD 0 09/13/2017 pioglitazone (ACTOS) 30 mg tabletIndication s:type 2 diabetes mellitus Take 1 tablet (30 mg total) by mouth daily albuterol (PROVENTIL,MAX PATI) 1.25 mg/3 mL nebulizer [...] 500 mg 24 hr tabletIndication s:epilepsy Take 1,000 mg by mouth 2 (two) times a day 0 ergocalciferol (VITAMIN D) 50,000 unit capsule Take [...] for pain 1 topiramate (TOPAMAX) 200 mg tabletIndication s:Complex-Partia l Epilepsy Take 200 mg by mouth 2 (two) times a day 0 traMADol (ULTRAM) 50 mg tablet Take 50 mg by mouth every 6 (six) hours as needed for pain 2 documented as of this encounter Discharge Disposition Disposition Code Departure Means Destination Discharge to home or self care documented in this encounter Plan of Treatment Not on file documented as of this encounter Visit Diagnoses Not on filedocumented in this encounter Care Teams Clerk Entry Level Relationship Specialty Start Date End Date Sergey Wilson MD PCP - General 09/20/16 documented as of this encounter
--- OUTSIDE RECORDS SUMMARY | 2024-05-24 02:08 | XMS_ITS | Encounter Summary ---
Author Organization [facility] Address [address] [place] [address] Phone Care Team Providers Care Blow Torch Burner Name Role Phone Sergey Wilson MD Primary Care Provider [phone] Encounter Details Date Type Department Care Team (Late st Contact Info) Description 2020 Telephone [facility] Epilepsy [address] [facility] [address]th [place] [address] [place] [phone] Ana Parrish RN Social History Tobacco Use Types Packs/Day Years Used Date Smoking Tobacco: Former Smokeless Tobacco: Never Alcohol Use Standard Drinks/Week Comments No 0 (1 standard drink = 0.6 oz pur e alcohol) Sex and Gender Information Value Date Recorded Sex Assigned at Not on file 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 Set reminder to contact pt in one month to reassess. * Telephone Encounter - Clifton Jose MD PhD - 2020 10:27 PM CDT Let's give him another month on this [facility] with him in 04/2020. Jordan * Telephone Encounter - Ana Parrish RN - 2020 4:[address] Jose, Called pt to assess for tolerance since weaning TPM to 200/300. He stated he is doing well, and hasn't had any recent falls for 2 weeks. He continues to deny szs but had a difficult time stating whether he feels his falls/gait disturbances have stayed the same or improved with the decrease. Would you like him to decrease the TPM to 200mg BID and call in one month with an update? That was your listed targeted goal. Thank you~Ana * Telephone Encounter - Ana Parrish RN - 2020 9:55 AM CDT Called pt to assess how he was tolerating TPM wean (200/300) and was unable to LVM as pt's phone rang for an extended period of time and would not take messages. Will attempt a later call. documented in this encounter Plan of Treatment Not on file documented as of this encounter Visit Diagnoses Not on filedocumented in this encounter Care Teams Blow Torch Burner Relationship Specialty Start Date End Date Sergey Wilson MD PCP - General 09/20/16 documented as of this encounter
--- OUTSIDE RECORDS SUMMARY | 2024-05-24 02:08 | XMS_ITS | Encounter Summary ---
Author Organization [facility] Address [address] [place] [address] Phone Care Team Providers Care Jacquard Loom Card Changer Name Role Phone Sergey Wilson MD Primary Care Provider [phone] Encounter Details Date Type Department Care Team (Late st Contact Info) Description 04/22/2020 Telephone [facility] Epilepsy [address] [facility] 6th [place] [address] [place] [phone] Ana Parrish RN Social History Tobacco Use Types Packs/Day Years Used Date Smoking Tobacco: Former Smokeless Tobacco: Never Alcohol Use Standard Drinks/Week Comments No 0 (1 standard drink = 0.6 oz pur e alcohol) Sex and Gender Information Value Date Recorded Sex Assigned at Not on file 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 BAKER TEST Gender Identity Not on file Sexual Orientation Not on file documented as of this encounter Miscellaneous Notes * Telephone Encounter - Ana Parrish RN - 04/26/2020 11:48 AM BAKER TEST Called pt and he agreed to speak to Dr Jose about events further at his 05/04/20 appt. He stated again that he stated his events were stress-related. R TEST * Telephone Encounter - Nuha Story RN - 04/23/2020 11:44 AM BAKER TEST Returned call and LVM for pt; asked pt to return call. Will wait for return call. R TEST * Telephone Encounter - Ana Parrish RN - 04/22/2020 5:06 PM BAKER TEST Cat, Will you call Dennis tomorrow to ask him which he'd like to do, per Dr Jose's previous response? Thanks~Ana R TEST * Telephone Encounter - Clifton Jose MD PhD - 04/22/2020 5:05 PM BAKER TEST I've Video/EEG'ed him multiple time since surgery showing blank outs to be NEE's. Let me talk with him in clinic. If he thinks these may be epileptic, then I'll consider TPM increase and bring him back in for Video/EEG to see. Jordan R TEST * Telephone Encounter - Ana Parrish RN - 04/22/2020 11:[address] Jose, Pt called in to confirm time and date of appt but then mentioned he had what sounded like his firsttype of *pre-surgery) sz, with altered consciousness/awareness. He said he 'blanked' out, just staring, and friends lowered him to the ground. Stated it lasted about 10 minutes. This is the first he's admitted this and he says it happens ~4-5x's/month. He denies it being a sz but says he thinks its just stress. Do you think these are his NEEs or from the TPM decrease? He denies unsteady gait orrecent falls. Stated he is taking TPM 200/300. Do you want him to go back to 300mg BID or assess athis 05/04/20 appt? Thank you~Ana R TEST documented in this encounter Plan of Treatment Not on file documented as of this encounter Visit Diagnoses Not on filedocumented in this encounter Care Teams Jacquard Loom Card Changer Relationship Specialty Start Date End Date Sergey Wilson MD PCP - General 09/20/16 documented as of this encounter
--- OUTSIDE RECORDS SUMMARY | 2024-05-24 02:08 | XMS_ITS | Encounter Summary ---
Author Organization [facility] Address [address] [place] [address] Phone Care Team Providers Care Blood Bank Coordinator Name Role Phone Sergey Wilson MD Primary Care Provider [phone] Encounter Details Date Type Department Care Team (Late st Contact Info) Description 10/07/2019 Telephone [facility] Epilepsy [address] [facility] 6[address] [place] [address] [place] [phone] Nuha Story RN Social History Tobacco Use Types Packs/Day Years Used Date Smoking Tobacco: Former Smokeless Tobacco: Never Alcohol Use Standard Drinks/Week Comments No 0 (1 standard drink = 0.6 oz pur e alcohol) Sex and Gender Information Value Date Recorded Sex Assigned at Not on file 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 Pt states he is seeing his PCP today. He will call the office back after he feels better to wean TPM * Telephone Encounter - Clifton Jose MD PhD - 10/07/2019 4:20 PM CDT I reviewed the records in 12/2018 and recommended that he wean TPM back to 300 mg bid at that time. See note. That said, I agree that it sounds like it may be something other than his TPM dose, and heshould address it with his PMD. After he recovers, he should call the office to get the weaning schedule for TPM. Jordan * Telephone Encounter - Nuha Story RN - 10/07/2019 3:25 PM CDT Pt called and said he isn't feeling well and that his local neurologist had increased his TPM to 400mg bid. Noted that this increase was reported back in 12/2018. Pt did not report SZs, just that he feels bad... I get tired after I walk up the stairs and am using my inhaler more Instructed him that these symptoms are very likely related to other health issues and that he should talk to his PCP about them. Verbalized understanding. He said that he will contact his PCP documented in this encounter Plan of Treatment Not on file documented as of this encounter Visit Diagnoses Not on filedocumented in this encounter Care Teams Blood Bank Coordinator Relationship Specialty Start Date End Date Sergey Wilson MD PCP - General 09/20/16 documented as of this encounter
--- OUTSIDE RECORDS SUMMARY | 2024-05-24 02:08 | XMS_ITS | Encounter Summary ---
Author Organization [facility] Address [address] [place] [address] Phone Care Team Providers Care Director Of Casino Marketing Name Role Phone Sergey Wilson MD Primary Care Provider [phone] Encounter Details Date Type Department Care Team (Late st Contact Info) Description 11/27/2019 Telephone [facility] Epilepsy [address] [facility] 6th [place] [address] [place] [phone] Ana Parrish RN Social History Tobacco Use Types Packs/Day Years Used Date Smoking Tobacco: Former Smokeless Tobacco: Never Alcohol Use Standard Drinks/Week Comments No 0 (1 standard drink = 0.6 oz pur e alcohol) Sex and Gender Information Value Date Recorded Sex Assigned at Not on file 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 and noted that it was documented that pt fell when he tripped while fixing a chair for a friend. He hit his head on the window and had a 10-15 min LOC, which prompted EMS being dispatched. No mention of sz activity or dizziness in notes. documented in this encounter Plan of Treatment Not on file documented as of this encounter Visit Diagnoses Not on filedocumented in this encounter Care Teams Director Of Casino Marketing Relationship Specialty Start Date End Date Sergey Wilson MD PCP - General 09/20/16 documented as of this encounter
--- OUTSIDE RECORDS SUMMARY | 2024-05-24 02:08 | XMS_ITS | Encounter Summary ---
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 Gender Identity Not on file Sexual Orientation Not on file documented as of this encounter Medications at Time of Discharge aspirin 81 mg chewable tablet Take 1 tablet (81 mg total) by mouth daily citalopram (CeleXA) 40 mg tablet Take 1 tablet (40 mg total) by mouth every morning cyanocobalamin/f olic acid (vitamin K08-[id number] acid) 2,500-400 mcg tablet,disintegr ating 05/14/1969 cyclobenzaprine [...] 1 tablet (50 mcg total) by mouth entry level business analyst before breakfast montelukast (SINGULAIR) 10 mg tablet Take 1 tablet (10 mg total) by mouth daily naproxen sodium 220 mg capsule ALEVE CAPSULE 05/14/1969 nortriptyline (PAMELOR) 75 mg capsule Take 1 capsule (75 mg total) by mouth 2 (two) times a day omeprazole (PriLOSEC) 20 mg capsule Take 1 capsule (20 mg total) by mouth daily before breakfast Airpush ULTRA BLUE TEST STRIP strip USE TO TEST QD 0 09/13/[address] syndications[address] ULTRA2 kit USE TO TEST QD 0 [...] on filedocumented in this encounter Care Teams Human Development Professor Relationship Specialty Start Date End Date Sergey Wilson MD PCP - General 09/20/16 documented as of this encounter
--- OUTSIDE RECORDS SUMMARY | 2024-05-24 02:08 | XMS_ITS | Encounter Summary ---
Author Organization [facility] Address [address] [place] [address] Phone Care Team Providers Care Rn Testing Name Role Phone Sergey Wilson MD Primary Care Provider [phone] Encounter Details Date Type Department Care Team (Late st Contact Info) Description 11/12/2019 Telephone [facility] Epilepsy [address] [facility] 6th [place] [address] [place] [phone] Ana Parrish RN Social History Tobacco Use Types Packs/Day Years Used Date Smoking Tobacco: Former Smokeless Tobacco: Never Alcohol Use Standard Drinks/Week Comments No 0 (1 standard drink = 0.6 oz pur e alcohol) Sex and Gender Information Value Date Recorded Sex Assigned at Not on file 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 He stated he would pursue obtaining CBT for the pt and stated he was thinking about how to get his brother in a different living situation as he is currently very isolated. Encouraged him to speak to pt's PCP, if pt consented, about resources available to pt. He thanked this nurse for the follow up. 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 Requested that brother Rafa be updated with above, and for him to take a look at the [employer] website ([email or web address]). Enter your ZIP code and narrow the number of therapists using the checkboxes on the left of the screen. You can choose by his insurance and should choose to limit therapists to those who perform CBT. Read the bios and see if there is a therapist you think could help the patient. Then call and set up appointments. documented in this encounter Plan of Treatment Not on file documented as of this encounter Visit Diagnoses Not on filedocumented in this encounter Care Teams Rn Testing Relationship Specialty Start Date End Date Sergey Wilson MD PCP - General 09/20/16 documented as of this encounter
--- OUTSIDE RECORDS SUMMARY | 2024-05-24 02:08 | XMS_ITS | Encounter Summary ---
Author Organization [facility] Address [address] [place] [address] Phone Care Team Providers Care Driver Retraining Instructor Name Role Phone Sergey Wilson MD Primary Care Provider [phone] Encounter Details Date Type Department Care Team (Late st Contact Info) Description 12/11/2019 Telephone [facility] Epilepsy [address] [facility] [address]th [place] [address] [place] [phone] Ana Parrish, SYLVIA Social History Tobacco Use Types Packs/Day Years Used Date Smoking Tobacco: Former Smokeless Tobacco: Never Alcohol Use Standard Drinks/Week Comments No 0 (1 standard drink = 0.6 oz pur e alcohol) Sex and Gender Information Value Date Recorded Sex Assigned at Not on file 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 Pt stated he is still tired all the time. Discussed wean scheduleand pt agreed to decrease TPM to 300mg BID. Set a reminder to call pt in one month to assess and determine if he can wean further. Goal dosing: TPM 200mg BID. Pt agreed to call with concerns or szs and for this nurse to follow up in one month. Med profile updated. * Telephone Encounter - Ana Parrish RN - 12/11/2019 11:07 AM CDT ----- Message from Clifton Jose MD PhD sent at 11/11/2019 8:29 PM CDT ----- Regarding: Follow up on TPM wean Please call the patient and see how he did on TPM at 300 mg AM and 400 mg PM. If doing well, pleasehave him wean to 300 mg bid now, and send yourself a message to call him in 1 month to repeat this type of follow up on his wean. 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 Reorder 12/09/2019 12/11/2019 documented as of this encounter Care Teams Driver Retraining Instructor Relationship Specialty Start Date End Date Sergey Wilson MD PCP - General 09/20/16 documented as of this encounter
--- OUTSIDE RECORDS SUMMARY | 2024-05-24 02:08 | XMS_ITS | Encounter Summary ---
Author Organization [facility] Address [address] [place] [address] Phone Care Team Providers Care Door Frame Builder Name Role Phone Sergey Wilson MD Primary Care Provider [phone] Encounter Details Date Type Department Care Team (Late st Contact Info) Description 11/18/2019 Telephone [facility] Epilepsy [address] [facility] 6th [place] [address] [place] [phone] Ana Parrish RN Social History Tobacco Use Types Packs/Day Years Used Date Smoking Tobacco: Former Smokeless Tobacco: Never Alcohol Use Standard Drinks/Week Comments No 0 (1 standard drink = 0.6 oz pur e alcohol) Sex and Gender Information Value Date Recorded Sex Assigned at Not on file 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 Verified it was sent successfully. documented in this encounter Plan of Treatment Not on file documented as of this encounter Visit Diagnoses Not on filedocumented in this encounter Care Teams Door Frame Builder Relationship Specialty Start Date End Date Sergey Wilson MD PCP - General 09/20/16 documented as of this encounter
--- OUTSIDE RECORDS SUMMARY | 2024-05-24 02:08 | XMS_ITS | Encounter Summary ---
Author Organization [facility] Address [address] [place] [address] Phone Care Team Providers Care Insurance Loss Adjuster Name Role Phone Sergey Wilson MD Primary Care Provider [phone] Encounter Details Date Type Department Care Team (Late st Contact Info) Description 01/15/2020 Telephone [facility] Epilepsy [address] 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 Agreed to call in one month with update. Set a reminder to call pt as well. Med profile updated. Pt requested 200mg TPM tablets to be ordered. * Telephone Encounter - Ana Parrish RN - 01/16/2020 9:54 AM CDT Called pt x2 but he couldn't hear this nurse speaking. Called again and LVM asking for return call. * Telephone Encounter - Clifton Jose MD PhD - 01/15/2020 3:27 PM CDT Let's go to 200/300 mg for ~1 month and then we can call him again and get an update. He should call us as needed if the wean causes any problems. Jordan * Telephone Encounter - Ana Parrish RN - 01/15/2020 2:[address] Jose, Called pt to assess how he is tolerating TPM 300mg BID. He stated he is doing well and he, and his family, can tell a difference. His mood is improved, he is free of falls, and he is less anxious. Denied seizure activity. Your target goal was for 200mg BID. Would you like him to take 200/300 x1 week, then decrease to TPM 200mg BID? ~Ana documented in this encounter Plan of Treatment Not on file documented as of this encounter Visit Diagnoses Not on filedocumented in this encounter Discontinued Medications Medication Sig Discontinue Reason Start Date End Da te topiramate (TOPAMAX) 100 mg tabletIndications:Comple x-Partial Epilepsy Take 3 tablets (300 mg total) by mouth 2 (two) times a day Reorder 12/11/2019 01/20/2020 documented as of this encounter Historical Medications * This list may reflect changes made after this encounter. topiramate (TOPAMAX) 100 mg tabletIndications :Complex-Partial Epilepsy Take 1 tablet (100 mg total) by mouth nightly [with a 200mg tablet. Total bedtime [id number]] 01/20/2020 03/18/2020 added in this encounter Care Teams Insurance Loss Adjuster Relationship Specialty Start Date End Date Sergey Wilson MD PCP - General 09/20/16 documented as of this encounter
--- OUTSIDE RECORDS SUMMARY | 2024-05-24 02:08 | XMS_ITS | Encounter Summary ---
Author Organization [facility] Address [address] [place] [address] Phone Care Team Providers Care Head Automatic Sawyer Name Role Phone Sergey Wilson MD Primary Care Provider [phone] Encounter Details Date Type Department Care Team (Late st Contact Info) Description 12/24/2019 Telephone [facility] Epilepsy [address] [facility] 6th [place] [phone] Ana Parrish RN Social History Tobacco Use Types Packs/Day Years Used Date Smoking Tobacco: Former Smokeless Tobacco: Never Alcohol Use Standard Drinks/Week Comments No 0 (1 standard drink = 0.6 oz pur e alcohol) Sex and Gender Information Value Date Recorded Sex Assigned at Not on file 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 Got [phone]. Faxed Medical Record Request to [facility]. Confirmation received. * Telephone Encounter - Ana Parrish RN - 12/24/2019 11:01 AM CDT Pt called to say he was discharged from [facility]. Pt stated he was taken off all of his meds while inpt and has resumed home meds since being home. Pt denied sz activity but stated hospital staff told him he had a sz. Will send record request to hospital medical records for inpt stay. Pt stated he would call his PMD about recent hospitalization and that his brother was aware as well.Encouraged to call with any concerns. documented in this encounter Plan of Treatment Not on file documented as of this encounter Visit Diagnoses Not on filedocumented in this encounter Care Teams Head Automatic Sawyer Relationship Specialty Start Date End Date Sergey Wilson MD PCP - General 09/20/16 documented as of this encounter
--- OUTSIDE RECORDS SUMMARY | 2024-05-24 02:08 | XMS_ITS | Encounter Summary ---
Author Organization [facility] Address [address] [place] [address] Phone Care Team Providers Care Store Lead Name Role Phone Sergey Wilson MD Primary Care Provider Encounter Details Date Type Department Care Team (Late st Contact Info) Description 11/11/2019 1:00 PM CDT Telemedicine [facility] Epilepsy [address] Advanced [facility] 6th [place] [address] [place] [address] Clifton Jose MD PhD [address] [place] [address] Partial symptomatic epilepsy with complex partial seizures, not intractable, without status epilepticus (CMS/HCC) (Primary Dx); Nonepileptic episode (CMS/HCC) Social History Tobacco Use Types Packs/Day Years Used Date Smoking Tobacco: Former Smokeless Tobacco: Never Alcohol Use Standard Drinks/Week Comments No 0 (1 standard drink = 0.6 oz pur e alcohol) Sex and Gender Information Value Date Recorded Sex Assigned at Not on file 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 105 tablet 11 11/11/2019 0 documented in this encounter Progress Notes * Clifton Jose MD PhD - 11/11/2019 1:00 PM CDT Name: Dennis Branch Date of : 1965 PCP: Sergey Wilson MD Date: 11/11/2019 Provider: Clifton Jose MD PhD Chief Complaint: Seizures HPI This was a telemedicine visit with Dennis Branch alone which took place via Telephone. During the visit, I was located in my clinic office in the [facility], in the [place], [place] and the patient was located at home in [place]. The session started at 1:10 PM and ended at 1:30 PM. In addition to the time spent during the session with the patient, I spent 5 minutes ordering medications, tests, or procedures, 24 minutes documenting clinical information in the electronic or other health record and 7 minutes on care coordination on the day of the visit. Total time spend on encounter on the day of the visit: 56 minutes. The patient has been informed that the visit may not be secure and acknowledged the information. It was explained to the patient they have the option of participating in a telephone or video visitduring the [address] emergency. After being given an opportunity to ask questions about and discuss this type of visit, the patient verbally consented to proceeding with the telephone / video visit. The patient understands that this service replaces an office visit and they may be billed and/or responsible for any applicable copayments. Portions of this note were copied forward from a prior encounter and updated to reflect the currentclinical condition. The EMR was personally reviewed and summarized as part of this note. ?? The patient is a 54 YO RH M with a history of [...] Video/EEG 05/10-05/12/16 (5th since epilepsy surgery) at [facility] without AED wean captured 7 typical events without EEG correlate, consistent with non-epileptic events (report personally reviewed). Video/EEG 07/23-07/26/17 at [facility] revealed episodes of unresponsiveness, head drop, funny [...] that lead to the 04/2017 hospitalization at [place]. ?? He thinks that current events are stress-related and not epileptic. ?? Last visit, he reported seizure freedom. He was diagnosed and treated for diabetes. He was referredto his ambulatory services representative for unintentional weight loss. He may have neuropathy and radiculopathy. ?? Since last visit, he was evaluated at [facility] 11/30/18 for staring events with unresponsiveness. [...] was not working. He was in the [facility] ED for a syncopal episode 12/30/18. He was in the [facility] ED 03/22/19 for another episode of syncope, and that note indicated he had a pacemaker implanted the week prior. 05/2019 he was admitted to an OSH for seizures, which were diagnosed as NEE's. 09/2019 he called reporting not feeling well and stated he was still on TPM 400 mg bid. He was told that we had previously tried to reach him to lower TPM to 300 mg bid, but also recommended that he follow with his PMD to evaluate his malaise. ?? Today he reports that he has had a few ER visits since last time. He went to the ER most recently after he missed a step walking up concrete steps, fell, and hit his head. He lost consciousness for about 20 minutes. His ER testing was all reportedly normal, and they did not change his medications. He denies any seizures since last visit. He went 3 months without NEE's, which changed again ~1.5 months ago. He could not identify why things had changed. His stress level was reportedly not too bad.He has still not yet seen a talking therapist for CBT. He does not have a computer or internet access. He also does not want to inconvenience his brother with transporting him. He agreed to let my nurse team call his brother Rafa who has internet access at least to look at psychologists/therapists in his area. We will provide his brother with directions for the [employer] [employer] website which is a search engine for therapists with numerous selectable criteria including ZIP code, insurance, CBT. We discussed that there are bios on there for each therapist so that they can read them and try to get an idea if one would be a good fit. We discussed that CBT is the standard treatment for NEE's. He was a little unclear about his TPM stating that he was on many small pills, but said they were 200mg tabs (which are not small). He said he was on 700 mg total, but that Dr. Israel had increased him to 800 mg total but also wanted me to wean him off all AEDs over time. We discussed that I agree thathe does not need to be on TPM 400 mg bid, and [...] if we get to that point. ?? In the past, he has been [...] mg bid (no side effects) and TPM 300 mg bid (no side effects; he is noticing some pain in his RLQ that comes and goes not severe; we discussed that if it worsens he should go to the ER and be checked out for kidney stone, appendicitis, etc.). He is on lorazepam for mood per PMD. ?? In 2014 after a probable syncopal event, he was found to have EKG evidence of 1st degree AV block and a RBBB. He was later found to have valvular disease. A pacemaker/ defibrillator was placed by in [place], [place]. ?? He did not follow through with sleep clinic referral due to reported transportation issues. ?? He had post-op NPT 02/26/14 that revealed moderate, widespread deficits in language, verbal and visual anterograde memory, and executive function; compared to pre-op some improvements and some declines noted with an overall decrease in anxiety symptoms noted. (report personally reviewed). ALLERGIES Dennis is allergic to glimepiride. Allergies Allergen Reactions ??? Glimepiride Unknown MEDICATIONS He has a current medication list which includes the following prescription(s): albuterol, albuterolhfa, aspirin, citalopram, cyclobenzaprine, dicyclomine, divalproex er, empagliflozin, enalapril, ergocalciferol, fluticasone propion- salmeterol, fluticasone propionate, icosapent ethyl, levothyroxine, meclizine, meloxicam, montelukast, nortriptyline, omeprazole, onetouch ultra blue test strip, onetouch ultra2 meter, pioglitazone, topiramate, and tramadol. 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 meclizine (ANTIVERT) 25 mg [...] for this visit. 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 The patient does not drive. ROS A review of systems was obtained. All of the pertinent positives and negatives were mentioned in the History of Presenting Illness and here: dyspnea, sneezing, diarrhea, joint pain in hips. All othersystems were negative. Test Conclus Repeat presurgical workup: -Video EEG with Ictal SPECT at [facility] from 02/04/2013 to 02/10/2013 revealed four right temporal onset seizures, rare right temporal discharges, and right temporal slowing. The patient also had multiple events without EEG correlate, mostly epigastric rising/stomach pain sensations. ? -Brain PET on 02/25/2013 at [facility] revealed hypometabolism in the right temporal lobe and right fronto-parietal as well. -Brain MRI with seizure protocol at [facility] on 02/25/2013 revealed a ??small right hippocampus [...] right temporal lobectomy. ?? Past evaluations at [facility] revealed: -Brain MRI 04/27/08 at [facility] revealed right mesial temporal sclerosis and focal encephalomalacia and gliosis along the right lateral postcentral gyrus. ?? -Video/EEG at [facility] 12/2008 with multiple episodes without EEG correlate [...] the same medications including VPA. -Video/EEG at [facility] 05/2008 revealed multiple typical auras consisting of a brief period of epigastricdiscomfort without alteration of awareness and no EEG correlate. The interictal EEG was abnormal due to right hemisphere slowing. Ictal and interictal SPECT were obtained during the recording, without identifying a seizure focus. He was injected for an episode of epigastric pain. ?? Other studies: -Routine EEG at [facility] on 03/27/12 revealed no significant abnormalities. -Routine EEG on 05/15 at OSH revealed normal EEG. -Routine EEG on at OSH revealed normal EEG. -Head CT without contrast on 03/21 at OSH revealed reported encephalomalacia right sylvian fissure region. VITAL SIGNS There were no vitals taken for this visit. Physical Exam Not done due to clinic visit being converted to telemedicine visit due to COVID- 19 risk. 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 During evaluations for his new spells, he was found to have EKG changes and established with a prn occupational therapist. He is s/p pacemaker. He has a history of suicidal ideations and psychiatric admissions. ?? He continues to be free of his typical seizures but continues to have events consistent with the non-epileptic events we have recorded over the numerous Video/EEG studies he has had since surgery. Hehas been recommended to go to counseling and engage in talk therapy to treat non-epileptic events numerous times. Today he denied typical seizures but has recently had a return of NEE's. He has still not yet seen a talking therapist for CBT. He agreed to let my nurse team call his brother Rafa who has internetaccess to at least to look at psychologists/therapists in his area. We will provide his brother with directions for the www[facility] website which is a search engine for therapists with numerous selectable criteria. He reported that he had been on 700 mg total, but that Dr. Israel had increased him to 800 mg total but also wanted me to wean him off all AEDs over time. We discussed that I agree that he does not need to be on TPM 400 mg bid, and [...] if we get to that point. ?? He has multiple other complaints including back pain which was previously evaluated by an outside neurologist with whom he states he still follows, weight loss, and shortness of breath. He should follow up with his PMD, outside neurologist and ambulatory services representative. ?? He is tolerating his AED's well, and we will not make changes at this time. Greater than 50% of the time of the visit was spent in counseling and/or coordination of care. Plan 1. Nurse team to contact patient's brother Rafa to provide him with information about [facility] and look into CBT for NEE's. 2. Wean TPM from 400 mg bid to 300/400 mg now. Call patient in ~1 month to reassess and give him next weaning instruction. We discussed trying to get down to 200 mg bid before next visit. 3. Continue VPA ER 1000 mg bid. 4. Prudent safety precautions apply for any events with loss of awareness including NEE's 5. F/U ~6 months. Call as needed. documented in this encounter Plan of Treatment Not on file documented as of this encounter Visit Diagnoses Diagnosis Partial symptomatic epilepsy with complex partial seizures, not intractable, without status epilepticus (HCC)- Primary Nonepileptic episode (HCC) documented in this encounter Discontinued Medications Medication Sig Discontinue Reason Start Date End Da te topiramate (TOPAMAX) 200 mg tabletIndications:Complex -Partial Epilepsy Take 200 mg by mouth 2 (two) times a day Reorder 11/11/2019 divalproex ER (DEPAKOTE ER) 500 mg 24 hr tabletIndications:epileps y Take 1,000 mg by mouth 2 (two) times a day Reorder 11/11/2019 documented as of this encounter Care Teams Store Lead Relationship Specialty Start Date End Date Sergey Wilson MD PCP - General 09/20/16 documented as of this encounter
--- OUTSIDE RECORDS SUMMARY | 2024-05-24 02:08 | XMS_ITS | Encounter Summary ---
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 Gender Identity Not on file Sexual Orientation Not on file documented as of this encounter Medications at Time of Discharge aspirin 81 mg chewable tablet Take 1 tablet (81 mg total) by mouth daily citalopram (CeleXA) 40 mg tablet Take 1 tablet (40 mg total) by mouth every morning cyanocobalamin/f olic acid (vitamin [id number] acid) 2,500-400 mcg tablet,disintegr ating 05/14/1969 cyclobenzaprine [...] 1 tablet (50 mcg total) by mouth maintenance superintendent before breakfast montelukast (SINGULAIR) 10 mg tablet Take 1 tablet (10 mg total) by mouth daily naproxen sodium 220 mg capsule ALEVE CAPSULE 05/14/1969 nortriptyline (PAMELOR) 75 mg capsule Take 1 capsule (75 mg total) by mouth 2 (two) times a day omeprazole (PriLOSEC) 20 mg capsule Take 1 capsule (20 mg total) by mouth daily before breakfast GetO2 ULTRA BLUE TEST STRIP strip USE TO TEST QD 0 09/13/2017 GetO2 ULTRA2 kit USE TO TEST QD 0 [...] a day 360 tablet 3 11/11/2019 0 ergocalciferol (VITAMIN D) 50,000 unit capsule [...] for pain 1 topiramate (TOPAMAX) 100 mg tabletIndication s:Complex-Partia l Epilepsy Take 3 tablets (300 mg total) by mouth 2 (two) times a day 180 tablet 10 12/11/2019 0 traMADol (ULTRAM) 50 mg tablet Take 50 mg by mouth every 6 (six) hours as needed for pain 2 documented as of this encounter Discharge Disposition Disposition Code Departure Means Destination Discharge to home or self care documented in this encounter Plan of Treatment Not on file documented as of this encounter Visit Diagnoses Not on filedocumented in this encounter Care Teams Manager Print Relationship Specialty Start Date End Date Sergey Wilson MD PCP - General 09/20/16 documented as of this encounter
--- OUTSIDE RECORDS SUMMARY | 2024-05-24 02:08 | XMS_ITS | Encounter Summary ---
Author Organization [facility] Address [address] [place] [address] Phone Care Team Providers Care Assistant Statistician Name Role Phone Sergey Wilson MD Primary Care Provider [phone] Reason for Referral * Neurology (Routine) - Closed Specialty Diagnoses / Procedures Referred By Contac t Referred To Contact Neurology Diagnoses Partial symptomatic epilepsy with complex partial seizures, not intractable, without status epilepticus (HCC) Nonepileptic episode (HCC) Procedures Continuous Video EEG -[facility] Clifton Jose MD PhD [address] [place] [address] Phone: tel: fax: Referral ID Status Reason Start Date Expiration Date Visits Re quested Visits Authorized [id number] Closed 05/04/2020 06/03/2021 1 1 SHER APPRENTICE Encounter Details Date Type Department Care Team (Late st Contact Info) Description 05/04/2020 1:30 PM POLISHER APPRENTICE Telemedicine [facility] Epilepsy [address] 6[address] [place] [address] [place] [address] Clifton Jose MD PhD [address] [place] [address] Partial symptomatic epilepsy with complex [...] on file 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 Total HS dose: 300mg] 90 tablet 3 05/04/2020 1 divalproex ER (DEPAKOTE ER) 500 mg 24 hr tabletIndications: epilepsy Take 2 tablets (1,000 mg total) by mouth 2 (two) times a day 360 tablet 3 05/04/2020 1 documented in this encounter Progress Notes * Clifton Jose MD PhD - 05/04/2020 1:30 PM CST Images from the original note were not included. Name: Dennis Branch Date of : 1965 PCP: Sergey Wilson MD Date: 05/04/2020 Provider: Clifton Jose MD PhD Chief Complaint: [...] Video/EEG 05/10-05/12/16 (5th since epilepsy surgery) at [facility] without AED wean captured 7 typical events without EEG correlate, consistent with non-epileptic events (report personally reviewed). Video/EEG 07/23-07/26/[address] [facility] revealed episodes of unresponsiveness, head [...] that lead to the 04/2017 hospitalization at [facility]. ?? Several visits ago, he endorsed that current events are stress-related and not epileptic. ?? He was evaluated at [facility] 11/30/18 for staring events with [...] working. He was in the [facility] ED for a syncopal episode 12/30/18. Hewas in the [facility] ED 03/22/19 for another episode of [...] monotherapy, if we get to that point. Since last visit, his brother agreed to [...] and took him home in the ambulance. Today he reports that he is unsure [...] note, he won some money in the [employer]. ?? In the past, he has been [...] A pacemaker/ defibrillator was placed by in [place], [place]. ?? He did not follow through [...] test strip, onetouch ultra2 meter, pioglitazone, topiramate, topiramate, and tramadol. Current Outpatient Medications Medication [...] mcg tablet Take 50 mcg by mouth optical engineering manager before breakfast ??? 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 The patient does not drive. ROS A review of systems was obtained. All of the pertinent positives and negatives were mentioned in the History of Presenting Illness and here: chills intermittently, side, hips, joint pains in additionto chronic cough and shortness of breath. All other systems were negative. Test Conclus Repeat presurgical workup: -Video EEG with Ictal SPECT at [facility] from 02/04/2013 to 02/10/2013 revealed four right temporal onset seizures, rare right temporal discharges, and right temporal slowing. The patient also had multiple events without EEG correlate, mostly epigastric rising/stomach pain sensations. ? -Brain PET on 02/25/[address] [facility] revealed hypometabolism in the right temporal lobe and right fronto-parietal as well. -Brain MRI with seizure protocol at [facility] on 02/25/2013 revealed a ??small [...] right temporal lobectomy. ?? Past evaluations at [facility] revealed: -Brain MRI 04/27/[address] [facility] revealed right mesial temporal sclerosis and focal encephalomalacia and gliosis along the right lateral postcentral gyrus. ?? -Video/EEG at [facility] 12/2008 with multiple episodes without [...] the same medications including VPA. -Video/EEG at [facility] 05/2008 revealed multiple typical auras consisting of a brief period of epigastricdiscomfort without alteration of awareness and no EEG correlate. The interictal EEG was abnormal due to right hemisphere slowing. Ictal and interictal SPECT were obtained during the recording, without identifying a seizure focus. He was injected for an episode of epigastric pain. ?? Other studies: -Routine EEG at [facility] on 03/27/12 revealed no significant [...] 19 risk. Assessment The patient is a 55 YO [...] have EKG changes and established with a community director. He is s/p pacemaker. He has a history of suicidal ideations and psychiatric admissions. He has been recommended to go to counseling and engage in talk therapy to treat non-epileptic events numerous times. Last visit, he denied typical seizures but had a return of NEE's. He agreed to counseling, and I started weaning TPM from 400 mg bid. We discussed trying to get down to 200 mg bid before next visit, but recurrent events did not allow that. We discussed that I may never recommend that he wean fully off VPA monotherapy, if we get to that point. Today he reports that he is unsure if the events he has had since last visit are seizures or not. They happen ~2-3 times per month. He has not been in counseling. He had to have a new breathing medication because of dyspnea on exertion. Based on the fact that he could be having syncope due to a card iopulmonary condition, seizures with weaning TPM since last visit, or PNES and has not followed through on counseling, the best next step is repeat spell characterization to guide treatment. He agreed to continue TPM at 200/300 mg and VPA unchanged until we find out if his current spells are seizures or not. Plan 1. Video/EEG for characterization and to guide subsequent treatment. 2. Continue TPM 200/300 mg for now. Consider further weaning depending on Video/EEG findings. 3. Continue VPA ER 1000 mg bid. 4. Prudent safety precautions apply for any events with loss of awareness including NEE's 5. F/U to be determined after Video/EEG. Call as needed. Telemedicine Visit Documentation This was a telemedicine visit with Dennis Branch alone which took place via Telephone. During the visit, I was located in the office and the patient was located in the [facility]. The patient visit started at 1:31 PM and ended at 1:47 PM. Total encounter time was 25 minutes, which includes time spent today on pre charting, the patient encounter, and post charting. Greater than 50% of the video/phone call was spent on counseling and coordinating care. Patient was counseled on proper use and management of seizure medications and/or neurostimulation in the treatment of seizures/epilepsy, treatment-associated side effects and/or monitoring as appropriate, and other issues as detailed in the Assessment and Plan. The patient has been informed that the visit may not be secure and acknowledged the information. The option of participating in a telephone or video visit during the COVID-19 public health emergency was explained to them. After being given an opportunity to ask questions about and discuss this typeof visit, they verbally consented to proceeding with the telephone/video visit and understand that this service replaces an office visit. Clifton Jose MD PhD SHER APPRENTICE documented in this encounter Plan of Treatment Not on file documented as of this encounter Results * Continuous Video EEG -[facility] (07/26/2020 4:34 PM CDT) Anatomical Region Laterality Modality EEG Narrative 07/26/2020 4:34 PM CDT Video-EEG Report Patient Name: Dennis Branch [facility] Medical Record Number (MRN): [id number] [facility] Record: [id number] Date of (): 1965` EEG Date: 07/20/2020 Ordering Provider: Clifton Jose MD PhD CC: Sergey Wilson Start Time: 07/20/2020 1:39:30 PM ? End Time: 07/26/2020 2:25:56 PM Introduction: Mr. Branch is a 55 y.o. male with a history of asthma, s/p pacemaker, diabetes, depression, back pain, epilepsy s/p right temporal lobectomy,and [facility] (2012), who presented with LOC events concerning for seizures. ??EEG was performed to evaluate for seizures. This is a report of continuous video-EEG monitoring. High definition digital video and digital EEG were recorded continuously with a [employer] EEG acquisition system. This was a 32 [...] At 2:10 PM on 07/24. The long pharmacy technician infusion found the patient had possible something wrong [...] status epilepticus (HCC)- Primary Nonepileptic episode (HCC) Partial symptomatic epilepsy with complex partial seizures, not intractable, without status epilepticus (HCC) Nonepileptic episode (HCC) documented in this encounter Discontinued Medications Medication Sig Discontinue Reason Start Date End Da te divalproex ER (DEPAKOTE ER) 500 mg 24 hr tabletIndications:epilep sy Take 2 tablets (1,000 mg total) by mouth 2 (two) times a day Reorder 11/11/2019 05/04/2020 topiramate (TOPAMAX) 200 mg tablet Take 1 tablet (200 mg total) by mouth 2 (two) times a day Reorder 03/18/2020 05/04/2020 topiramate (TOPAMAX) 100 mg tablet Take 1 tablet (100 mg total) by mouth 2 (two) times a day [take with 200mg tab at HS. Total HS dose: 300mg] Reorder 03/19/2020 05/04/2020 documented as of this encounter Care Teams Assistant Statistician Relationship Specialty Start Date End Date Sergey Wilson MD PCP - General 09/20/16 documented as of this encounter
--- OUTSIDE RECORDS SUMMARY | 2024-05-24 02:09 | XMS_ITS | Encounter Summary ---
Author Organization [facility] Address [address] [place] [address] Phone Care Team Providers Care Licensed Prosthetist/Orthotist Name Role Phone Sergey Wilson MD Primary Care Provider [phone] Reason for Visit * Reason Onset Date Comments event 05/17/2018 Encounter Details Date Type Department Care Team (Late st Contact Info) Description 05/17/2018 Telephone [facility] Epilepsy [address] [facility] 6th [place] [address] [place] [address] Clifton Jose MD PhD [address] [place], [place] [id number] event Social History Tobacco Use Types Packs/Day Years Used Date Smoking Tobacco: Former Alcohol Use Standard Drinks/Week Comments No 0 (1 standard drink = 0.6 oz pur e alcohol) Sex and Gender Information Value Date Recorded Sex Assigned at Not on file 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 RMATION SYSTEMS ADMINISTRATOR * Telephone Encounter - Clifton Jose MD PhD - 05/21/2018 11:23 AM INFORMATION SYSTEMS ADMINISTRATOR OK thanks. Did he say what medication? Jordan RMATION SYSTEMS ADMINISTRATOR * Telephone Encounter - Ana Parrish RN - 05/21/2018 9:44 AM INFORMATION SYSTEMS ADMINISTRATOR YNES Kern~ I got a call motion picture actor last night. The patient was calling from the hospital and stated that he was being started on a new AED and he wanted to speak to you before starting it. I advised the answering service to relay to the pt that he needs to speak to the nurse on the floor, who will then address his concerns and call the motion picture actor physician if necessary.~Ana RMATION SYSTEMS ADMINISTRATOR * Telephone Encounter - Clifton Joes MD PhD - 05/21/2018 7:57 AM INFORMATION SYSTEMS ADMINISTRATOR Noted Jordan RMATION SYSTEMS ADMINISTRATOR * Telephone Encounter - Ana Parrish RN - 05/20/2018 1:39 PM INFORMATION SYSTEMS ADMINISTRATOR Dr Jose Pt wanted to make you aware. Thank you~Ana RMATION SYSTEMS ADMINISTRATOR * Telephone Encounter - Mahogany Rodriguez - 05/17/2018 4:56 PM INFORMATION SYSTEMS ADMINISTRATOR Patient states he had an event with his blood pressure was high and he coughed his ribs hurt as well as his back. I did contact the patient and asked if he contacted his PCP and he did . He wanted to make aware RMATION SYSTEMS ADMINISTRATOR documented in this encounter Plan of Treatment Not on file documented as of this encounter Visit Diagnoses Not on filedocumented in this encounter Care Teams Licensed Prosthetist/Orthotist Relationship Specialty Start Date End Date Sergey Wilson MD PCP - General 09/20/16 documented as of this encounter
--- OUTSIDE RECORDS SUMMARY | 2024-05-24 02:09 | XMS_ITS | Encounter Summary ---
Author Organization [facility] Address [address] [place] [address] Care Team Providers Care Firefighter Marine Name Role Phone Sergey Wilson MD Primary Care Provider Reason for Referral * (Routine) - Closed Specialty Diagnoses / Procedures Referred By Contac t Referred To Contact Procedures Transthoracic Echo Complete W Doppler/CF [facility] [address] [place] [phone] Phone: tel: fax: Referral ID Status Reason Start Date Expiration Date Visits Re quested Visits Authorized [id number] Closed 10/14/2018 04/24/2020 1 1 Encounter Details Date Type Department Care Team (Late st Contact Info) Description 10/14/2018 Orders Only [facility] [address] [place] [phone] Kareem Pugh MD [address] [place] [id number] Social History Tobacco Use Types Packs/Day Years Used Date Smoking Tobacco: Former Smokeless Tobacco: Never Alcohol Use Standard Drinks/Week Comments No 0 (1 standard drink = 0.6 oz pur e alcohol) Sex and Gender Information Value Date Recorded Sex Assigned at Not on file 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 Gender Identity Not on file Sexual Orientation Not on file documented as of this encounter Plan of Treatment Not on file documented as of this encounter Procedures Procedure Name Priority Date/Time Associated Diagnosis Comments TRANSTHORACIC ECHO (TTE) COM PLETE W DOPPLER/CF Routine 10/10/2018 documented in this encounter Results * Transthoracic Echo Complete W Doppler/CF (10/10/2018) Anatomical Region Laterality Modality Ultrasound us Historical Provider CV ECHO PROCEDURES Final Result documented in this encounter Visit Diagnoses Not on filedocumented in this encounter Care Teams Firefighter Marine Relationship Specialty Start Date End Date Sergey Wilson MD PCP - General 09/20/16 documented as of this encounter
--- OUTSIDE RECORDS SUMMARY | 2024-05-24 02:09 | XMS_ITS | Encounter Summary ---
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 Gender Identity Not on file Sexual Orientation Not on file documented as of this encounter Medications at Time of Discharge cyanocobalamin/foli c acid (vitamin [id number]) 2,500-400 mcg tablet,disintegrati ng 0 naproxen sodium 220 mg capsule ALEVE CAPSULE 0 ONETOUCH ULTRA BLUE TEST STRIP strip USE TO TEST QD 0 8 ONETOUCH ULTRA2 kit USE TO TEST QD 0 8 ADVAIR DISKUS 250-50 mcg/dose diskus inhaler INL 1 PUFF PO BID 6 07/24/19 1 8 03/22/20 19 albuterol (PROVENTIL,VENTOLIN ) 1.25 mg/3 mL nebulizer solution Take 1.25 mg by nebulization every 6 (six) hours as needed for wheezing or shortness of breath 07/20/19 22 aspirin 81 mg chewable tablet MANAGER DISTRIBUTION 1 T PO D 5 8 03/22/20 19 cholecalciferol (VITAMIN D-3) 50,000 unit capsule 06/08/19 1 8 03/22/20 19 citalopram (CeleXA) 40 mg tablet TK 1 T PO QAM 3 8 03/22/20 19 cyclobenzaprine (FLEXERIL) 10 mg tablet TK 1 T PO BID 5 8 03/22/20 19 dicyclomine (BENTYL) 10 mg capsule TK 1 C PO TID 0 8 03/22/20 19 divalproex ER (DEPAKOTE ER) 500 mg 24 hr tablet Take 2 tabs twice a day 360 tablet 3 9 03/22/20 19 enalapril (VASOTEC) 5 mg tablet TK 1 T PO QD 10 8 03/22/20 19 ergocalciferol (VITAMIN D) 50,000 unit capsule TK 1 C PO Q WEEK 0 8 03/22/20 19 escitalopram (LEXAPRO) 20 mg tablet daily. 03/22/20 19 fenofibrate (TRIGLIDE) 160 mg tablet TK 1 T PO D 2 8 03/22/20 19 fluticasone (FLONASE) 50 mcg/actuation nasal spray SHAKE LQ AND U 2 SPRAYS IEN QAM 0 8 03/22/20 19 fluticasone-salmete rol (ADVAIR DISKUS) 500-50 mcg/dose diskus inhaler 2 times daily. 19 levothyroxine (SYNTHROID, LEVOTHROID) 50 mcg tablet TK 1 T PO D 3 8 03/22/20 19 meclizine (ANTIVERT) 25 mg tablet Take 25 mg by mouth 3 (three) times a day as needed for dizziness 09/16/19 21 meloxicam (MOBIC) 7.5 mg tablet TK 1 T PO BID PRN 0 8 03/22/20 19 montelukast (SINGULAIR) 10 mg tablet TK 1 T PO QD 0 8 03/22/20 19 nortriptyline (PAMELOR) 75 mg capsule TK ONE C PO BID 3 8 03/22/20 19 omeprazole (PriLOSEC) 20 mg capsule TK 1 C PO QD AC 0 8 03/22/20 19 ondansetron ODT (ZOFRAN-ODT) 4 mg disintegrating tablet DISSOLVE 1 T ON THE TONGUE Q 8 H PRN 0 8 03/22/20 19 predniSONE (DELTASONE) 20 mg tablet TK 2 TS PO ONCE D FOR 5 DAYS 0 8 03/22/20 19 PROAIR HFA 90 mcg/actuation inhaler INHALE 2 PUFFS PO Q 4 HOURS 3 8 03/22/20 19 topiramate (TOPAMAX) 100 mg tablet Take 3 tablets (300 mg) by mouth twice daily 540 tablet 3 9 03/22/20 19 documented as of this encounter Discharge Disposition Disposition Code Departure Means Destination Discharge to home or self care documented in this encounter Plan of Treatment Not on file documented as of this encounter Visit Diagnoses Not on filedocumented in this encounter Care Teams Barber Apprentice Relationship Specialty Start Date End Date Sergey Wilson MD PCP - General 09/20/16 documented as of this encounter
--- OUTSIDE RECORDS SUMMARY | 2024-05-24 02:09 | XMS_ITS | Encounter Summary ---
Author Organization [facility] Healthcare Address [address] [place] [address] Care Team Providers Care Vocational Guidance Counselor Name Role Phone Sergey Wilson MD Primary Care Provider [phone] Reason for Visit * Reason Comments Syncope Encounter Details Date Type Department Care Team (Late st Contact Info) Description 03/22/2019 6:22 PM COFFEE SHOP MANAGER - 03/22/2019 11:42 PM COFFEE SHOP MANAGER Emergency [facility] Emergency Department [address] [place] [address] Juhi Cooper MD [address] [place] [id number] Syncope, unspecified syncope type (Primary Dx) Discharge [...] file 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 COFFEE SHOP MANAGER Gender Identity Not on file Sexual Orientation Not on file documented as of this encounter Last Filed Vital Signs Vital Sign Reading Time Taken Comments Blood Pressure 128/80 03/22/2019 11:00 PM COFFEE SHOP MANAGER Pulse 69 03/22/2019 11:00 PM COFFEE SHOP MANAGER Temperature - - Respiratory Rate 18 03/22/2019 11:00 PM COFFEE SHOP MANAGER Oxygen Saturation 98% 03/22/2019 11:00 PM COFFEE SHOP MANAGER Inhaled Oxygen Concentration - - Weight 101.2 kg (223 lb) 03/22/2019 6:25 PM COFFEE SHOP MANAGER Height 180.3 cm (5' 11 ) 03/22/2019 6:25 PM COFFEE SHOP MANAGER Body Mass Index 31.1 03/22/2019 6:25 PM COFFEE SHOP MANAGER documented in this encounter Discharge Diagnoses Diagnosis Syncope and collapse - SYNCOPE AND COLLAPSE Essential (primary) hypertension - ESSENTIAL (PRIMARY) HYPERTENSION Unspecified essential hypertension Anxiety disorder, unspecified - ANXIETY DISORDER, UNSPECIFIED Unspecified asthma, uncomplicated - UNSPECIFIED ASTHMA, UNCOMPLICATED Major depressive disorder, single episode, unspecified - MAJOR DEPRESSIVE DISORDER, SINGLE EPISODE, UNSPECIFIED Unspecified convulsions (HCC) - UNSPECIFIED CONVULSIONS Pain in left hip - PAIN IN LEFT HIP Other chronic pain - OTHER CHRONIC PAIN Personal history of traumatic brain injury - PERSONAL HISTORY OF TRAUMATIC BRAIN INJURY Personal history of nicotine dependence - PERSONAL HISTORY OF NICOTINE DEPENDENCE Presence of cardiac pacemaker - PRESENCE OF CARDIAC PACEMAKER Cardiac pacemaker in situ Other nursing home (current) drug therapy - OTHER HALFWAY (CURRENT) DRUG THERAPY documented in this encounter Discharge Instructions * Discharge Instructions* Roxana Busch RN - 03/22/2019 11:40 PM COFFEE SHOP MANAGER Continue to monitor your own symptoms, be very careful getting up and walking, use your cane at alltimes until you see Dr. Carlos. Follow up with your neurologist as scheduled and follow up with Dr. Carlos by phone on Sunday as discussed. Return to the ER if symptoms change or become unfamiliar or if you experience numbness or weakness. EE SHOP MANAGER EE SHOP MANAGER * Attachments The following attachments cannot be sent through Care Everywhere. * Syncope (AfterCare(R) Instructions(ER/ED)) (Divehi) documented in this encounter Medications at Time of Discharge aspirin 81 mg chewable tablet Take 1 tablet (81 mg total) by mouth daily citalopram (CeleXA) 40 mg tablet Take 1 tablet (40 mg total) by mouth every morning cyanocobalamin/f olic acid (vitamin [id number]) 2,500-400 mcg tablet,disintegr ating 05/14/1969 cyclobenzaprine [...] 1 tablet (50 mcg total) by mouth tombstone polisher before breakfast montelukast (SINGULAIR) 10 mg tablet [...] tablet (30 mg total) by mouth daily cephalexin (KEFLEX) 500 mg capsule Take 500 mg by mouth 3 (three) times a day 03/18/2019 9 albuterol (PROVENTIL,MAX PATI) 1.25 mg/3 mL nebulizer [...] Discharge Disposition Disposition Code Departure Means Destination Comment s Discharge to home or self care Pt alert and oriented, VSS, pt ambulated out of deparment with friend, gait steady. Pt left at 2300. documented in this encounter ED Notes * Juhi Cooper MD - 03/22/2019 8:59 PM CST HPI Chief Complaint Patient presents with ??? Syncope HPI Mr. Branch is a 54 yr old male with a h/o TBI, seizures that resolved s/p craniectomy years ago, chronic episodes of syncope for two years, chronic hip pain, htn, anxiety who presents to the ED for another typical episode of syncope that occurred at a restaurant tonight. He says he has these episodes sometimes weekly and they have been occurring more frequently the past few months. Saw Dr. Carlos, senior drupal developer, who placed a pacemaker (?) last week and has been following him. He has been monitored with no findings even though he continues to have syncopal episodes. He takes AEDs which he saysDrs. Rebeca and Jerichor (both of his neurologists) have been titratin gdown due to negative EEGs this year. He does no tbelieve he has seizure sanymore. He has been followed closely by all of these physicians for these symptoms, no cause for the syncope has been identified as yet. He says he was seated at the restaurant, experienced tinnitus which is always how the episodes start followed by lightheadedness and fainting. He wakes up knowing where he is, no incontinence or tongue biting. No confusion. He is able to guide himself down to safety if occurs while standing He does not drive or work. Patient History Patient Active Problem List Diagnosis Date Noted ??? Psychogenic nonepileptic seizure 05/18/2015 ??? Epilepsy with partial complex seizures (CMS/HCC) 04/08/2013 Past Medical History: Diagnosis Date ??? Anxiety disorder Anxiety - (Added by TW Conv) ??? Asthma ??? Hypertension ??? Personal history of other [...] No ??? Drug use: No Social History Patient does not qualify to have social determinant information on file (likely too young). Social History Narrative ??? Not on file Review of Systems Review of Systems Con: no fever, change in appetite HEENT: no congestion Pulm: no sob CV: no chest pain GI: no n/v/abdominal pain, no bleeding : no problems urinating Endo: no polyuria Neuro: no numbness, weakness, see hpi Skin: no rash Immune: no immunocompromise MSk chronic pain Physical Exam ED Triage Vitals Temp Pulse Resp BP SpO2 -- 03/22/19 1835 03/22/19 1825 03/22/19 1835 03/22/19 1835 74 18 133/83 97 % Temp src Heart Rate Source Patient Position BP Location FiO2 (%) -- -- 03/22/190 -- -- Sitting Physical Exam Gen no distress HEENT NCAT OP clear Neck Supple Chest CTA Heart RRR Abd Soft NT ND Ext FROM, some pain in the left hip he reports is chronic Skin warm, dry Neuro alert ox3 motor and sens LT intact x 4 ext MDM MDM Syncope Likely--pt already undergoing workup with senior drupal developer. Will check labs, review records andcontact Dr. Carlos if workup neg. ED Course as of Mar 23 10 Time: 03/22 2101 Comment: Pt has a loop recorder, not a pacemaker. By: Juhi Cooper MD Time: 03/22 2203 Comment: EKG reviewed not significantly different from previous 12/2018 [place], [place] 195ms previously today 212ms QRS and axis same No ST-T changes to suggest ischemia No prolonged QTc By: Juhi Cooper MD Time: 03/22 2205 Comment: CXR indep visualized no I/e, no ppm By: Juhi Cooper MD Time: 03/22 2232 Comment: Reviewed visit to director of physical education 03/01, pt's TSH at that time was normal. Pt presented to [facility] 12/30 for similar symptoms as well as [facility] 06/01 for similar symptoms with valproic acid 48. He says his neurologist is weaning him off of his AEDs because he does not believe he has a seizure disorder due to a normal EEG he had just a few months ago. Decided not to check level for this reason as it will be difficult to interpret. Will message Dr. Jose regarding the visit today. Do not see any benefit to hospitalization given extensive workups in the past, multiple involved specialists and continued symptoms x two years. Rhythm strip reviewed during one of these syncopal episodes which per his friend at bedside was typical for him and no evidence of dysrhythmia was appreciated. By: Juhi Cooper MD Time: 03/22 2238 Comment: Discussed case with Dr. Carlos's covering provider Hubbard who will let him know and arrange appropriate follow up. By: Juhi Cooper MD He felt comfortable with dc home and thinks he can continue to keep himself safe during outpatient workup. Syncope, unspecified syncope type Juhi Cooper MD 03/23/19 0010 EE SHOP MANAGER * Jade Murphy RN - 03/22/2019 6:41 PM CST Per EMS- pt was at a restaurant sitting when he had a syncopal episode- this was witnessed. Per ems-no head injury. +LOC, pt now back to mental status baseline. EMS checked blood glucose 130 Pt states he felt weird right before the syncopal episode. Pt states he recently had loop recorder placed, bruising to left chest noted, incision-clean, dry and intact. Pt complains of his chronic left hip pain and states he needs a hip replacement EE SHOP MANAGER * Rufus Eugene RN - 03/22/2019 6:22 PM CST Bed: ED16 Expected date: Expected time: Means of arrival: Comments: Ems syncope Rufus Eugene RN 03/22/19 182 EE SHOP MANAGER documented in this encounter Plan of Treatment Not on file documented as of this encounter Procedures Procedure Name Priority Date/Time Associated Diagnosis Comments XR CHEST PA LATERAL 2 VIEWS ED 03/22/2019 7:15 PM COFFEE SHOP MANAGER EGFR STAT 03/22/2019 6:46 PM COFFEE SHOP MANAGER DIFFERENTIAL AUTO STAT 03/22/2019 6:4 6 PM COFFEE SHOP MANAGER CBC WITH AUTO DIFFERENTIAL STAT 03/22/2019 6:46 PM COFFEE SHOP MANAGER TROPONIN T STAT 03/22/2019 6:46 PM COFFEE SHOP MANAGER BASIC METABOLIC PANEL STAT 03/22/2019 6:46 PM COFFEE SHOP MANAGER ECG 12-LEAD STAT 03/22/2019 6:31 PM COFFEE SHOP MANAGER documented in this encounter Results * XR Chest Pa Lateral 2 Vw (03/22/2019 7:15 PM COFFEE SHOP MANAGER) Anatomical Region Laterality Modality Body, Chest N/A Computed Radiogr aphy 03/22/2019 7:55 PM COFFEE SHOP MANAGER Impressions 03/22/2019 8:23 PM COFFEE SHOP MANAGER . ??No acute disease. Electronically signed by: Júnior Tavarez M.D. Narrative 03/22/2019 8:23 PM COFFEE SHOP MANAGER Chest 2 views HISTORY: Chest pain. ??Asthma. ??Arrhythmia. ??Pacemaker. Lungs clear. ??No pneumothorax. ??No pleural effusion. ??No cardiomegaly. ??The lungs are better aerated than on 05/23/2018. ??A loop recorder superimposes the left heart. Procedure Note Júnior Tavarez MD - 03/22/2019 Chest 2 views HISTORY: Chest pain. Asthma. Arrhythmia. Pacemaker. Lungs clear. No pneumothorax. No pleural effusion. No cardiomegaly. The lungs are better aerated than on 05/23/2018. A loop recorder superimposes the left heart. IMPRESSION: . No acute disease. Electronically signed by: Júnior Tavarez M.D. us Juhi Cooper MD IMG XR PROCEDURES Final Resul t * eGFR (03/22/2019 6:46 PM COFFEE SHOP MANAGER) eGFR 104 mL/min/1.7 3 m2 [facility] Comment: Interpretive Data Reference Interval Normal ?>/= 90 mL/min/1.73m2 Mildly decreased* ? 60 - 89 mL/min/1.73m2 Mildly to moderately decreased ?45 - 59 mL/min/1.73m2 Moderately to severely decreased ??30 - 44 mL/min/1.73m2 Severely decreased ?15 - 29 mL/min/1.73m2 Kidney Failure ?< 15 ??mL/min/1.73m2 *Relative to young adult level If -[place] multiply value by 1.16. Estimated glomerular filtration rate is determined by [...] 70. Current interpretive data was last reviewed 2016. Blood specimen (specimen) 03/22/2019 6:46 PM COFFEE SHOP MANAGER 03/22/2019 6:54 PM COFFEE SHOP MANAGER us Juhi Cooper MD LAB BLOOD ORDERABLES Final Re sult [facility] [address] Department [place] [address] * (ABNORMAL) Differential, auto (03/22/2019 6:46 PM COFFEE SHOP MANAGER) Neutrophil abs 3.2 1.7 - 6.5 K/cumm [facility] Imm gran abs 0.1 0.0 - 0.1 K/cumm [facility] Lymphocyte abs 3.5(H) 0.8 - 3.3 K/cumm [facility] Monocyte abs 0.6 0.2 - 0.8 K/cumm [facility] Eosinophil abs 0.3 0.0 - 0.5 K/cumm [facility] Basophil abs 0.1 0.0 - 0.1 K/cumm [facility] Neutrophil pct 41.0 % [facility] Comment: Interpretive Data Percent cell count reference ranges are not reported, since discordance with absolute values may lead to misinterpretation of CBC data. Current Interpretive Data was last revised on 2017. Imm gran pct 0.8 % [facility] Comment: Interpretive Data Percent cell count reference ranges are not reported, since discordance with absolute values may lead to misinterpretation of CBC data. Current Interpretive Data was last revised on 2017. Lymphocyte pct 46.0 % [facility] Comment: Interpretive Data Percent cell count reference ranges are not reported, since discordance with absolute values may lead to misinterpretation of CBC data. Current Interpretive Data was last revised on 2017. Monocyte pct 7.7 % [facility] Comment: Interpretive Data Percent cell count reference ranges are not reported, since discordance with absolute values may lead to misinterpretation of CBC data. Current Interpretive Data was last revised on 2017. Eosinophil pct 3.7 % [facility] Comment: Interpretive Data Percent cell count reference ranges are not reported, since discordance with absolute values may lead to misinterpretation of CBC data. Current Interpretive Data was last revised on 2017. Basophil pct 0.8 % [facility] Comment: Interpretive Data Percent cell count reference ranges are not reported, since discordance with absolute values may lead to misinterpretation of CBC data. Current Interpretive Data was last revised on 2017. Blood specimen (specimen) 03/22/2019 6:46 PM COFFEE SHOP MANAGER 03/22/2019 6:54 PM COFFEE SHOP MANAGER Juhi oCoper MD LAB BLOOD ORDERABLES Final Re sult Performing Organization Address [facility] de Phone Number [facility] [address] [place] [address] * Troponin T (03/22/2019 6:46 PM COFFEE SHOP MANAGER) [facility] Troponin T <0.01 0.00 - 0.01 ng/mL [facility] Comment: Interpretive Data Reference ranges for children <18 years of age have not been established. - > or = 18 years: Serial determinations are recommended for the diagnosis of myocardial infarction. ??Temporal rise and fall are consistent with myocardial infarction when at least one value is above the 99th percentile upper reference limit for troponin assay. ??Journal of the [place] College [employer] 2012;60:1581-98. Current Interpretive Data Last Revised Date: 2018. Blood specimen (specimen) (Blood, Venous) 03/22/2019 6:46 PM COFFEE SHOP MANAGER 03/22/2019 6:54 PM COFFEE SHOP MANAGER Juhi Cooper MD LAB BLOOD ORDERABLES Final Re sult Performing Organization Address [facility] de Phone Number [facility] [address] [place] [address] * (ABNORMAL) Basic metabolic panel (03/22/2019 6:46 PM COFFEE SHOP MANAGER) [facility] Sodium 138 135 - 145 mmol/L [facility] Potassium, pl 4.1 3.3 - 4.9 mmol/L [facility] Chloride 102 97 - 110 mmol/L [facility] CO2 25 22 - 32 mmol/L [facility] Anion gap 11 2 - 15 mmol/L [facility] BUN 13 8 - 25 mg/dL [facility] Creatinine 0.74(L) 0.80 - 1.30 mg/dL [facility] Glucose 121 70 - 199 mg/dL [facility] Comment: Interpretive Data Fasting glucose [...] interpretive data was last revised 2017. Calcium 9.0 8.5 - 10.3 mg/dL [facility] Blood specimen (specimen) 03/22/2019 6:46 PM COFFEE SHOP MANAGER 03/22/2019 6:54 PM COFFEE SHOP MANAGER us Juhi Cooper MD LAB BLOOD ORDERABLES Final Re sult [facility] [address] Department [place] [address] * CBC with auto differential (03/22/2019 6:46 PM COFFEE SHOP MANAGER) WBC 7.7 3.8 - 9.9 K/cumm [facility] Hgb 14.9 13.0 - 17.5 g/dL [facility] Hct 45.5 38.9 - 50.3 % [facility] Plt 158 150 - 400 K/cumm [facility] MPV 9.7 9.1 - 12.3 fL [facility] RBC 4.84 4.30 - 5.80 M/cumm [facility] MCV 94.0 81.3 - 96.4 fL [facility] MCH 30.8 27.1 - 33.3 pg [facility] MCHC 32.7 32.3 - 35.7 g/dL [facility] RDW CV 11.7 11.1 - 14.9 % [facility] RDW SD 40.6 35.7 - 48.1 fL [facility] NRBC abs 0.00 0.00 - 0.01 K/cumm [facility] Blood specimen (specimen) (Blood, Venous) 03/22/2019 6:46 PM COFFEE SHOP MANAGER 03/22/2019 6:54 PM COFFEE SHOP MANAGER Juhi Cooper MD LAB BLOOD ORDERABLES Final Re sult Performing Organization Address [facility] Co de Phone Number [facility] [address] Department [place] [address] * ECG 12 lead (03/22/2019 6:31 PM COFFEE SHOP MANAGER) 03/22/2019 6:31 PM COFFEE SHOP MANAGER Narrative [facility] - 03/23/2019 12:38 PM COFFEE SHOP MANAGER Vent Rate: 71 bpm RR Interval: 839 msec [place] Interval: 212 msec QRS Duration: 122 msec QT Interval: 410 msec QTC Interval: 433 msec P-R-T Flora: 48 - -68 - 58 degrees SINUS RHYTHM WITH FIRST DEGREE AV BLOCK POSSIBLE RIGHT VENTRICULAR CONDUCTION DELAY LEFT ANTERIOR FASCICULAR BLOCK ABNORMAL ECG COMPARED TO THE PRIOR ECG, NEC Electronically Signed By: Dustin Guerrero DO [facility] Juhi Cooper MD ECG ORDERABLES Final Result Performing Organization Address [facility] de Phone Number [facility] Delver [facility] documented in this encounter Visit Diagnoses Diagnosis Syncope, unspecified syncope type- Primary documented in this encounter Discontinued Medications Medication Sig Discontinue Reason Start Date End Da te ADVAIR DISKUS 250-50 mcg/dose diskus inhaler INL 1 PUFF PO BID 07/23/20172018 aspirin 81 mg chewable tablet ANALYSIS REPORTING DEVELOPER 1 T PO D 07/23/2017 03/22/2019 cholecalciferol (VITAMIN D-3) 50,000 unit capsule 06/08/2017 019 ergocalciferol (VITAMIN D) 50,000 unit capsule TK 1 C PO Q WEEK 09/07/2017 03/22/20 19 citalopram (CeleXA) 40 mg tablet TK 1 T PO QAM 08/02/2017 03/22/2019 cyclobenzaprine (FLEXERIL) 10 mg tablet TK 1 T PO BID 10/09/2017 03/22/20 19 dicyclomine (BENTYL) 10 mg capsule TK 1 C PO TID 09/07/2017 03/22/2019 divalproex ER (DEPAKOTE ER) 500 mg 24 hr tablet Take 2 tabs twice a day 09/16/2018 03/22/2019 escitalopram (LEXAPRO) 20 mg tablet daily. 03/22/2019 fenofibrate (TRIGLIDE) 160 mg tablet TK 1 T PO D 08/01/2017 03/22/2019 fluticasone (FLONASE) 50 mcg/actuation nasal spray SHAKE LQ AND U 2 SPRAYS IEN QAM 09/26/2017 03/22/2019 fluticasone-salmeterol (ADVAIR DISKUS) 500-50 mcg/dose diskus inhaler 2 times daily. 03/22/20 19 enalapril (VASOTEC) 5 mg tablet TK 1 T PO QD 10/15/2017 03/22/2019 levothyroxine (SYNTHROID, LEVOTHROID) 50 mcg tablet TK 1 T PO D 08/01/20172018 meloxicam (MOBIC) 7.5 mg tablet TK 1 T PO BID PRN 11/19/2017 03/22/2019 montelukast (SINGULAIR) 10 mg tablet TK 1 T PO QD 10/09/2017 03/22/2019 nortriptyline (PAMELOR) 75 mg capsule TK ONE C PO BID 08/01/2017 03/22/2019 omeprazole (PriLOSEC) 20 mg capsule TK 1 C PO QD AC 10/10/2017 03/22/2019 ondansetron ODT (ZOFRAN-ODT) 4 mg disintegrating tablet DISSOLVE 1 T ON THE TONGUE Q 8 H PRN 09/07/2017 03/22/2019 predniSONE (DELTASONE) 20 mg tablet TK 2 TS PO ONCE D FOR 5 DAYS 01/08/2018 03/22/2019 PROAIR HFA 90 mcg/actuation inhaler INHALE 2 PUFFS PO Q 4 HOURS 10/02/2017 03/22/2019 topiramate (TOPAMAX) 100 mg tablet Take 3 tablets (300 mg) by mouth twice daily 09/16/2018 03/22/2019 documented as of this encounter Historical Medications * This list may reflect changes made after this encounter. pioglitazone (ACTOS) 30 mg tabletIndication s:type 2 diabetes mellitus Take 1 tablet (30 mg total) by mouth daily empagliflozin (JARDIANCE) 25 mg tabletIndication s:type 2 diabetes mellitus Take 1 tablet (25 mg total) by mouth daily omeprazole (PriLOSEC) 20 mg capsule Take 1 capsule (20 mg total) by mouth daily before breakfast nortriptyline (PAMELOR) 75 mg capsule Take 1 capsule (75 mg total) by mouth 2 (two) times a day montelukast (SINGULAIR) 10 mg tablet Take 1 tablet (10 mg total) by mouth daily levothyroxine (SYNTHROID) 50 mcg tablet Take 1 tablet (50 mcg total) by mouth tombstone polisher before breakfast enalapril (VASOTEC) 5 mg tablet Take 1 tablet (5 mg total) by mouth daily fluticasone propionate (FLONASE) 50 mcg/actuation nasal spray Administer 2 sprays into each nostril nightly cyclobenzaprine (FLEXERIL) 10 mg tablet Take 1 tablet (10 mg total) by mouth 2 (two) times a day citalopram (CeleXA) 40 mg tablet Take 1 tablet (40 mg total) by mouth every morning aspirin 81 mg chewable tablet Take 1 tablet (81 mg total) by mouth daily fluticasone propion-salmeter ol (ADVAIR DISKUS) 250-50 mcg/dose diskus inhaler Inhale 1 puff 2 (two) times a day Rinse mouth with water after use. Do not swallow. traMADol (ULTRAM) 50 mg tablet Take 50 mg by mouth every 6 (six) hours as needed for pain 2 icosapent ethyl (VASCEPA) 1 gram capsuleIndicatio ns:hypertriglyce ridemia Take 2 g by mouth 2 (two) times a day 1 cephalexin (KEFLEX) 500 mg capsule Take 500 mg by mouth 3 (three) times a day 03/18/2019 9 topiramate (TOPAMAX) 200 mg tabletIndication s:Complex-Partia l Epilepsy Take 200 mg by mouth 2 (two) times a day 0 albuterol HFA (PROVENTIL HFA,VENTOLIN HFA,PROAIR HFA) 90 mcg/actuation inhaler Inhale 2 puffs every 4 (four) hours as needed for wheezing or shortness of breath 4 meloxicam (MOBIC) 7.5 mg tablet Take 7.5 mg by mouth 2 (two) times a day as needed for pain 1 divalproex ER (DEPAKOTE ER) 500 mg 24 hr tabletIndication s:epilepsy Take 1,000 mg by mouth 2 (two) times a day 0 dicyclomine (BENTYL) 10 mg capsule Take 10 mg by mouth 3 (three) times a day 1 ergocalciferol (VITAMIN D) 50,000 unit capsule Take 50,000 Units by mouth once a week Sundays 1 added in this encounter Orders Nursing Count Last Ordered Date First Orde red Date CARDIO RESPIRATORY MONITORING 1 03/22/2019 NURSING COMMUNICATION 1 03/22/2019 IV Count Last Ordered Date First Orde red Date SALINE LOCK IV 1 03/22/2019 documented in this encounter Care Teams Vocational Guidance Counselor Relationship Specialty Start Date End Date Sergey Wilson MD PCP - General 09/20/16 documented as of this encounter
--- OUTSIDE RECORDS SUMMARY | 2024-05-24 02:09 | XMS_ITS | Encounter Summary ---
Author Organization [facility] Address [address] [place] [address] Phone Care Team Providers Care Preschool Teacher'S Assistant Name Role Phone Sergey Wilson MD Primary Care Provider [phone] Encounter Details Date Type Department Care Team (Late st Contact Info) Description 12/26/2018 Telephone [facility] Epilepsy [address] 6th [place] [address] [place] [phone] Nuha Story RN Social History Tobacco Use Types Packs/Day Years Used Date Smoking Tobacco: Former Smokeless Tobacco: Never Alcohol Use Standard Drinks/Week Comments No 0 (1 standard drink = 0.6 oz pur e alcohol) Sex and Gender Information Value Date Recorded Sex Assigned at Not on file 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 INSPECTOR PROCESS Gender Identity Not on file Sexual Orientation Not on file documented as of this encounter Miscellaneous Notes * Telephone Encounter - Nuha Story RN - 12/27/2018 11:32 AM CDT Attempted to contact pt to relay info from Dr Jose. Pt's listed # is not a working #. Attempted to call pt's mom, who is not with the pt and unsure of what his new # is. Asked her to have him call if she talks to him. Called other listed contact, LVM asking for call back for pt's contact. Will wait for return call * Telephone Encounter - Clifton Jose MD PhD - 12/27/2018 11:18 AM CDT I also reviewed the OSH records. Please have the patient wean TPM from 400 mg bid by 100 mg weekly back down to 300 mg bid. There was no objective evidence of seizure and most likely were non-epileptic. If epileptic which I strongly doubt then would have been triggered by acute illness with no med increase needed. Jordan * Telephone Encounter - Nuha Story RN - 12/26/2018 1:58 PM CDT Reviewed notes sent from Eduardo multiple times. ED note described that he had an event with the ER Dr etienne, 5sec blank stare with 10-15sec unconscious period, pt noted to have NSR during event, came back to baseline with some lethargy. Multiple EKGs, appear unremarkable. Pt was admitted on telemetry, K+ and Mag replaced, some chest pain that seemed musculoskeletal.. H&P does not indicateany specific neuro testing, only basic labs, CXR, and EKGs. Also nothing in the notes shows what was the discharged medications. Attempted to call pt to gather info about his reported increased VPA, pt's listed # isn't working, his mom did not have working # for him. M for other contact asking for a return call. * Telephone Encounter - Nuha Story RN - 12/26/2018 1:36 PM CDT ----- Message from Mahogany Rodriguez sent at 12/16/2018 12:53 PM CDT ----- OSH records documented in this encounter Plan of Treatment Not on file documented as of this encounter Visit Diagnoses Not on filedocumented in this encounter Care Teams Preschool Teacher'S Assistant Relationship Specialty Start Date End Date Seregy Wilson MD PCP - General 09/20/16 documented as of this encounter
--- OUTSIDE RECORDS SUMMARY | 2024-05-24 02:09 | XMS_ITS | Encounter Summary ---
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
--- OUTSIDE RECORDS SUMMARY | 2024-05-24 02:09 | XMS_ITS | Encounter Summary ---
Author Organization [facility] Healthcare Address [address] [place] [address] Care Team Providers Care Turf And Grounds Supervisor Name Role Phone Sergey Wilson MD Primary Care Provider Reason for Visit * Reason Comments Syncope Encounter Details Date Type Department Care Team (Late st Contact Info) Description 12/30/2018 11:54 AM CDT - 12/30/2018 2:07 PM CDT Emergency [facility] Emergency Department [address] [place] [address] Bahman Boyer MD [address] [facility] # [place] [address] Syncope, unspecified syncope type (Primary Dx) Discharge Disposition: Discharge to home or self care Social History Tobacco Use Types Packs/Day Years Used Date Smoking Tobacco: Former Smokeless Tobacco: Never Alcohol Use Standard Drinks/Week Comments No 0 (1 standard drink = 0.6 oz pur e alcohol) Sex and Gender Information Value Date Recorded Sex Assigned at Not on file 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 Gender Identity Not on file Sexual Orientation Not on file documented as of this encounter Last Filed Vital Signs Vital Sign Reading Time Taken Comments Blood Pressure 135/79 12/30/2018 2:06 PM CDT Pulse 76 12/30/2018 2:06 PM CDT Temperature 36.1 ??C (96.9 ??F) 12/30/2018 2:06 PM CD T Respiratory Rate 12 12/30/2018 2:06 PM CDT Oxygen Saturation 95% 12/30/2018 2:06 PM CDT Inhaled Oxygen Concentration - - Weight - - Height - - Body Mass Index - - documented in this encounter Discharge Diagnoses Diagnosis Syncope and collapse - SYNCOPE AND COLLAPSE Personal history of nicotine dependence - PERSONAL HISTORY OF NICOTINE DEPENDENCE documented in this encounter Discharge Instructions * Attachments The following attachments cannot be sent through Care Everywhere. * Syncope (AfterCare(R) Instructions(ER/ED)) (Setswana) documented in this encounter Medications at Time of Discharge cyanocobalamin/foli c acid (vitamin U71-xeprd acid) 2,500-400 mcg tablet,disintegrati ng 0 naproxen sodium 220 mg capsule ALEVE CAPSULE 0 PharmaxisTOUCH ULTRA BLUE TEST STRIP strip USE TO TEST QD 0 8 PharmaxisTOUCH ULTRA2 kit USE TO TEST QD 0 8 ADVAIR DISKUS 250-50 mcg/dose diskus inhaler INL 1 PUFF PO BID 6 07/24/19 1 8 03/22/20 19 albuterol (PROVENTIL,VENTOLIN ) 1.25 mg/3 mL nebulizer solution Take 1.25 mg by nebulization every 6 (six) hours as needed for wheezing or shortness of breath 07/20/19 22 aspirin 81 mg chewable tablet PONDMAN 1 T PO D 5 8 03/22/20 [...] documented in this encounter ED Notes * Bialk, Mayelin, RN - 12/30/2018 12:09 PM CDT 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 Patient states he has left hip pain from the fall. Patient states he has a pacemaker but it Has been out of battery. * Bahman Boyer MD - 12/30/2018 12:01 PM CDT HPI No chief complaint on file. Patient is a 53-year-old male who apparently had a syncopal episode prior to arrival. Patient thinks it is lasted about 5 minutes. Patient fell and landed on his left hip-hurts with movement. No numbness or tingling. Patient denies any headache or head injury. Patient denies any vision changes speech changes or localized weakness or numbness. There is no chest pain or shortness of breath or history of fevers or chills. There is no history of nausea vomiting diarrhea or abdominal pain or urinarysymptoms. There is no aggravating or alleviating factors. There is no other complaints of further review of symptoms negative Patient History Patient Active Problem List Diagnosis [...] Placement - (Added by TW Conv) ??? CO CRANIOT W BONE FLAP FOR AMYGDALOHIPPOCAMPECTOMY Craniotomy [...] file Review of Systems Review of Systems All other systems reviewed and are negative. Physical Exam ED Triage Vitals Temp Pulse Resp BP SpO2 -- -- -- -- -- Temp src Heart Rate Source Patient Position BP Location FiO2 (%) -- -- -- -- -- Physical Exam Constitutional: He is oriented to person, place, and time. He appears well- developed and well-nourished. No distress. HENT: Head: Normocephalic and atraumatic. Right Ear: External ear normal. Left Ear: External ear normal. Mouth/Throat: Oropharynx is clear and moist. Eyes: Pupils are equal, round, and reactive to light. Conjunctivae and EOM are normal. Neck: Normal range of motion. Neck supple. Nontender spine Cardiovascular: Normal rate, regular rhythm, normal heart sounds and intact distal pulses. Pulmonary/Chest: Effort normal and breath sounds normal. No respiratory distress. Abdominal: Soft. Bowel sounds are normal. There is no tenderness. Musculoskeletal: Normal range of motion. He exhibits no edema. Minimal tenderness with full range of motion to left hip, distally neurovascularly intact Neurological: He is alert and oriented to person, place, and time. Follows all commands and answers all questions appropriately, equal strength bilaterally Skin: Skin is warm and dry. Capillary refill takes less than 2 seconds. He is not diaphoretic. Psychiatric: He has a normal mood and affect. Nursing note and vitals reviewed. [facility] ED Course as of Dec 31 1347 Time: 12/30 1346 Comment: Patient sitting in examination room in no acute distress, aware of test results and the need for follow-up By: Bahman Boyer MD No diagnosis found. Bahman Boyer MD 08/19/19 1348 * Sharee Dyer RN - 12/30/2018 11:54 AM CDT Bed: ED07 Expected date: Expected time: Means of arrival: Comments: angella Sharee Dyer RN 12/30/18 1154 documented in this encounter Plan of Treatment Not on file documented as of this encounter Procedures Procedure Name Priority Date/Time Associated Diagnosis Comments URINALYSIS AND REFLEX TO MICROSCOPIC AND CULTURE STAT 12/30/2018 1:31 PM CDT XR PELVIS 1 OR 2 VIEWS ED 9 12:53 PM CDT XR HIP LEFT 2 OR 3 VIEWS ED 12/30/2018 12:53 PM CDT ECG 12-LEAD STAT 12/30/2018 12:20 PM CDT EGFR STAT 12/30/2018 12:12 PM CDT DIFFERENTIAL AUTO STAT 12/30/2018 12: 12 PM CDT CBC WITH AUTO DIFFERENTIAL STAT 12/30/2018 12:12 PM CDT APTT STAT 12/30/2018 12:12 PM CDT PROTIME-INR STAT 12/30/2018 12:12 PM CDT TROPONIN T STAT 12/30/2018 12:12 PM CDT COMPREHENSIVE METABOLIC PANEL STAT 12/30/2018 12:12 PM CDT documented in this encounter Results * (ABNORMAL) Urinalysis reflex to microscopic and culture Urine (12/30/2018 1:31 PM CDT) Color, ur Yellow Yellow [facility] Clarity, ur Clear Clear [facility] Specific gravity, ur 1.029(H) 1.010 - 1.025 [facility] pH, urine 6.5 [facility] Protein, ur ql Negative Negative [facility] Glucose, ur ql 3+(A) Negative [facility] Ketones, ur Negative Negative [facility] Bilirubin, ur Negative Negative [facility] Blood, ur Negative Negative [facility]) Urobilinogen, ur 1.0 mg/dL [facility]) Nitrite, ur Negative Negative [facility] Leukocyte esterase, ur Negative Negative [facility]) Urine 12/30/2018 1:31 PM CDT 12/30/2018 1:35 PM CDT Narrative [facility]) - 12/30/2018 1:40 PM CDT ?? Urine pH is affected by diet, medications, systemic acid-base disturbances, and renal tubular function. ??pH may affect urinary stone formation. ??For example, urine pH below 6.0 may help reduce the tendency for calcium phosphate stones and pH greater than 6.0 may reduce the tendency for uric acid stone formation. Source: [facility] [employer]. Last revised 05-24-2017 Bahman Boyer MD LAB MICROBIOLOGY - GENERAL OR DERABLES Final Result [facility] ([place] 1 [facility] Department [place] [address] * XR Pelvis 1 or 2 Views (12/30/2018 12:53 PM CDT) Anatomical Region Laterality Modality Body, Pelvis N/A Computed Radiogr aphy 12/30/2018 12:5 9 PM CDT Impressions 12/30/2018 1:00 PM CDT NORMAL PELVIS. Electronically signed by: Bert Ozuna M.D. Narrative 12/30/2018 1:00 PM CDT XR PELVIS 1 OR 2 VIEWS HISTORY: Fall. ??Pelvic pain. COMPARISON: None available. FINDINGS: One view of the pelvis is obtained. ??There is no evidence of fracture or osseous lesion. ??The hips are normally seated. ??The soft tissues are normal. Procedure Note Bert Ozuna MD - 12/30/2018 XR PELVIS 1 OR 2 VIEWS HISTORY: Fall. Pelvic pain. COMPARISON: None available. FINDINGS: One view of the pelvis is obtained. There is no evidence of fracture or osseous lesion. The hips are normally seated. The soft tissues are normal. IMPRESSION: NORMAL PELVIS. Electronically signed by: Bert Ozuna M.D. Bahman Boyer MD IMG XR PROCEDURES Final Resul t * XR Hip Left 2+ views (12/30/2018 12:53 PM CDT) Anatomical Region Laterality Modality Lower Extremities, Hip, Pelvis Left C omputed Radiography 12/30/2018 1:00 PM CDT Impressions 12/30/2018 1:00 PM CDT MILD DEGENERATIVE SPURRING OF THE LEFT HIP. ??NO EVIDENCE OF FRACTURE OR DISLOCATION. Electronically signed by: Bert Ozuna M.D. Narrative 12/30/2018 1:00 PM CDT XR HIP LEFT 2 OR 3 VIEWS HISTORY: Fall. ??Left hip pain. COMPARISON: None available. FINDINGS: AP and frog-leg lateral projections are obtained. ??There is no evidence of fracture or dislocation. ??Mild marginal spurring is present. ??The soft tissues are normal. Procedure Note Bert Ozuna MD - 12/30/2018 XR HIP LEFT 2 OR 3 VIEWS HISTORY: Fall. Left hip pain. COMPARISON: None available. FINDINGS: AP and frog-leg lateral projections are obtained. There is no evidence of fracture or dislocation. Mild marginal spurring is present. The soft tissues are normal. IMPRESSION: MILD DEGENERATIVE SPURRING OF THE LEFT HIP. NO EVIDENCE OF FRACTURE OR DISLOCATION. Electronically signed by: Bert Ozuna M.D. us Bahman Boyer MD IMG XR PROCEDURES Final Resul t * ECG 12 lead (12/30/2018 12:20 PM CDT) 12/30/2018 12:2 0 PM CDT Narrative [facility] - 12/31/2018 1:44 PM CDT Vent Rate: 68 bpm RR Interval: 874 msec CO Interval: 195 msec QRS Duration: 120 msec QT Interval: 423 msec QTC Interval: 441 msec P-R-T [place]: 61 - -41 - 24 degrees SINUS RHYTHM MARKED LEFT AXIS DEVIATION [QRS AXIS < -30] POSSIBLE ANTERIOR MYOCARDIAL INFARCTION [30 ms Q WAVE IN V3/V4, OR R < 0.2 mV IN V4], OF INDETERMINATE AGE ABNORMAL ECG WARNING: DATA QUALITY MAY AFFECT INTERPRETATION Compared to 05/23/2018 no change Electronically Signed By: Dr Claudio Abdalla us Bahman Boyer MD ECG ORDERABLES Final Result [facility] * eGFR (12/30/2018 12:12 PM CDT) eGFR 101 mL/min/1.7 3 m2 [facility] ([place]) Comment: Interpretive Data Reference Interval Normal ?>/= 90 mL/min/1.73m2 Mildly decreased* ? 60 - 89 mL/min/1.73m2 Mildly to moderately decreased ?45 - 59 mL/min/1.73m2 Moderately to severely decreased ??30 - 44 mL/min/1.73m2 Severely decreased ?15 - 29 mL/min/1.73m2 Kidney Failure ?< 15 ??mL/min/1.73m2 *Relative to young adult level If -[place] multiply value by 1.16. Estimated glomerular filtration [...] 70. Current interpretive data was last reviewed 2015. Blood specimen (specimen) 12/30/2018 12:12 PM CDT 12/30/2018 12:14 PM CDT us Bahman Boyer MD LAB BLOOD ORDERABLES Final Re sult [facility] ([place] [address] [facility] [place] [address] * (ABNORMAL) Differential, auto (12/30/2018 12:12 PM CDT) Neutrophil abs 2.6 1.7 - 6.5 K/cumm [facility] Imm gran abs 0.1 0.0 - 0.1 K/cumm [facility]) Lymphocyte abs 3.4(H) 0.8 - 3.3 K/cumm [facility]) Monocyte abs 0.5 0.2 - 0.8 K/cumm [facility]) Eosinophil abs 0.2 0.0 - 0.5 K/cumm [facility]) Basophil abs 0.0 0.0 - 0.1 K/cumm [facility]) Neutrophil pct 37.7 % [facility] ([place] Comment: Interpretive Data Percent cell count reference ranges are not reported, since discordance with absolute values may lead to misinterpretation of CBC data. Current Interpretive Data was last revised on 2017. Imm gran pct 1.2 % [facility] ([place]) Comment: Interpretive Data Percent cell count reference ranges are not reported, since discordance with absolute values may lead to misinterpretation of CBC data. Current Interpretive Data was last revised on 2017. Lymphocyte pct 50.1 % [facility] ([place] Comment: Interpretive Data Percent cell count reference ranges are not reported, since discordance with absolute values may lead to misinterpretation of CBC data. Current Interpretive Data was last revised on 2017. Monocyte pct 7.2 % [facility] ([place]) Comment: Interpretive Data Percent cell count reference ranges are not reported, since discordance with absolute values may lead to misinterpretation of CBC data. Current Interpretive Data was last revised on 2017. Eosinophil pct 3.2 % [facility] ([place] Comment: Interpretive Data Percent cell count reference ranges are not reported, since discordance with absolute values may lead to misinterpretation of CBC data. Current Interpretive Data was last revised on 2017. Basophil pct 0.6 % [facility] ([place] Comment: Interpretive Data Percent cell count reference ranges are not reported, since discordance with absolute values may lead to misinterpretation of CBC data. Current Interpretive Data was last revised on 2017. Blood specimen (specimen) 12/30/2018 12:12 PM CDT 12/30/2018 12:14 PM CDT Bahman Boyer MD LAB BLOOD ORDERABLES Final Re sult Performing Organization Address [facility] [[email or web address]] Co de Phone Number [facility] 1 [facility] [place] [address] * aPTT (12/30/2018 12:12 PM CDT) aPTT 31.4 25.0 - 37.0 sec [facility]) Blood specimen (specimen) 12/30/2018 12:12 PM CDT 12/30/2018 12:14 PM CDT Bahman Boyer MD LAB BLOOD ORDERABLES Final Re sult Performing Organization Address [facility]/ZIP Co de Phone Number [facility] ([place]) 1 [facility] [employer] [place] [address] * Protime-INR (12/30/2018 12:12 PM CDT) PT 12.6 9.5 - 13.0 sec [facility]) INR 1.11 0.90 - 1.20 [facility] ([place] Comment: Interpretive Data Recommended ranges for Protime INR: 2.0 - 3.0 Most indications for Warfarin therapy (e.g. Treatment of DVT, PE, bioprosthetic valve replacement, prophylaxis venous thrombosis, atrial fibrillation). 2.5 - 3.5 Mechanical mitral valve or dual mechanical mitral and Aortic valve replacement. Current Interpretive Data was last revised on 2015. Blood specimen (specimen) 12/30/2018 12:12 PM CDT 12/30/2018 12:14 PM CDT Bahman Boyer MD LAB BLOOD ORDERABLES Final Re sult Performing Organization Address [facility]/ZIP Co de Phone Number [facility] 1 [facility] [place] [address] * Troponin T (12/30/2018 12:12 PM CDT) Troponin T <0.01 0.00 - 0.01 ng/mL [facility] ([place]) Comment: Interpretive Data Reference ranges for children <18 years of age have not been established. - > or = 18 years: Serial determinations are recommended for the diagnosis of myocardial infarction. ??Temporal rise and fall are consistent with myocardial infarction when at least one value is above the 99th percentile upper reference limit for troponin assay. ??Journal of the [place] College [employer] Card[employer] 2012;60:1581-98. Current Interpretive Data Last Revised Date: 2018. Blood specimen (specimen) 12/30/2018 12:12 PM CDT 12/30/2018 12:14 PM CDT Bahman Boyer MD LAB BLOOD ORDERABLES Final Re sult Performing Organization Address City/[facility]/ZIP Co de Phone Number [facility] ([place] 1 [facility] [place] [address] * (ABNORMAL) Comprehensive metabolic panel (12/30/2018 12:12 PM CDT) Sodium 137 135 - 145 mmol/L [facility] ([place]) Potassium, pl 4.0 3.3 - 4.9 mmol/L [facility] ([place]) Chloride 104 97 - 110 mmol/L [facility] ([place]) CO2 21(L) 22 - 32 mmol/L [facility]) Anion gap 12 2 - 15 mmol/L [facility]) BUN 17 8 - 25 mg/dL [facility]) Creatinine 0.80 0.80 - 1.30 mg/dL [facility]) Glucose 120 70 - 199 mg/dL [facility] ([place]) Comment: Interpretive Data Fasting glucose >/= 126 [...] interpretive data was last revised 2017. Calcium 9.5 8.5 - 10.3 mg/dL [facility] ([place]) Bilirubin, total 0.3 0.1 - 1.2 mg/dL [facility] ([place]) Protein, pl 7.0 6.5 - 8.5 g/dL [facility]) Albumin 4.2 3.5 - 5.0 g/dL [facility] ([place]) Alk phos 59 40 - 130 Units/L [facility]) ALT 28 7 - 55 Units/L [facility] ([place]) AST 62(H) 10 - 50 Units/L [facility] ([place]) Comment:Slightly Hemolyzed S pecimen Blood specimen (specimen) 12/30/2018 12:12 PM CDT 12/30/2018 12:14 PM CDT us Bahman Boyer MD LAB BLOOD ORDERABLES Final Re sult [facility] ([place] 1 [facility] Department [place] [address] * CBC with auto differential (12/30/2018 12:12 PM CDT) WBC 6.8 3.8 - 9.9 K/cumm [facility]) Hgb 14.3 13.0 - 17.5 g/dL [facility]) Hct 41.9 38.9 - 50.3 % [facility]) Plt 191 150 - 400 K/cumm [facility]) MPV 9.4 9.1 - 12.3 fL [facility]) RBC 4.54 4.30 - 5.80 M/cumm [facility]) MCV 92.3 81.3 - 96.4 fL [facility]) MCH 31.5 27.1 - 33.3 pg [facility]) MCHC 34.1 32.3 - 35.7 g/dL [facility]) RDW CV 13.0 11.1 - 14.9 % [facility]) RDW SD 43.8 35.7 - 48.1 fL [facility] NRBC abs 0.00 0.00 - 0.01 K/cumm [facility]) Blood specimen (specimen) 12/30/2018 12:12 PM CDT 12/30/2018 12:14 PM CDT Bahman Boyer MD LAB BLOOD ORDERABLES Final Re sult [facility] ([place] 1 [facility] [place] [address] documented in this encounter Visit Diagnoses Diagnosis Syncope, unspecified syncope type- Primary documented in this encounter Orders Nursing Count Last Ordered Date First Orde red Date VITAL SIGNS 1 12/30/2018 documented in this encounter Care Teams Turf And Grounds Supervisor Relationship Specialty Start Date End Date Sergey Wilson MD PCP - General 09/20/16 documented as of this encounter
--- OUTSIDE RECORDS SUMMARY | 2024-05-24 02:09 | XMS_ITS | Encounter Summary ---
Author Organization [facility] Healthcare Address [address] [place] [address] Care Team Providers Care Nutrition Counselor Name Role Phone Sergey Wilson MD Primary Care Provider [phone] Reason for Visit * Reason Onset Date Comments talk with doctor 02/04/2018 Patient wanted to talk with doctor. 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 ERCIAL MANAGEMENT ACCOUNTANT documented in this encounter Plan of Treatment Not on file documented as of this encounter Visit Diagnoses Not on filedocumented in this encounter Care Teams Nutrition Counselor Relationship Specialty Start Date End Date Sergey Wilson MD PCP - General 09/20/16 documented as of this encounter
--- OUTSIDE RECORDS SUMMARY | 2024-05-24 02:09 | XMS_ITS | Encounter Summary ---
Author Organization [facility] Healthcare Address [address] [place] [address] Care Team Providers Care Branch Services Manager Name Role Phone Sergey Wilson MD Primary Care Provider Reason for Visit * Reason Comments Seizures Encounter Details Date Type Department Care Team (Late st Contact Info) Description 03/26/2018 1:16 PM AGRISCIENCE INSTRUCTOR - 03/26/2018 3:20 PM AGRISCIENCE INSTRUCTOR Emergency [facility] Emergency Department [address] [place] [address] Zahida Simpson MD [address] [place] [address] Seizure (CMS/HCC) (Primary Dx) Discharge Disposition: Discharge to home or self care Social History Tobacco Use Types Packs/Day Years Used Date Smoking Tobacco: Former Alcohol Use Standard Drinks/Week Comments No 0 (1 standard drink = 0.6 oz pur e alcohol) Sex and Gender Information Value Date Recorded Sex Assigned at Not on file 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 AGRISCIENCE INSTRUCTOR Gender Identity Not on file Sexual Orientation Not on file documented as of this encounter Last Filed Vital Signs Vital Sign Reading Time Taken Comments Blood Pressure 131/83 03/26/2018 2:50 PM AGRISCIENCE INSTRUCTOR Pulse 80 03/26/2018 2:50 PM AGRISCIENCE INSTRUCTOR Temperature - - Respiratory Rate 11 03/26/2018 2:50 PM AGRISCIENCE INSTRUCTOR Oxygen Saturation 99% 03/26/2018 2:50 PM AGRISCIENCE INSTRUCTOR Inhaled Oxygen Concentration - - Weight - - Height - - Body Mass Index - - documented in this encounter Discharge Instructions * Discharge Instructions* Zahida Simpson MD - 03/26/2018 3:05 PM AGRISCIENCE INSTRUCTOR Call your neurologist for follow-up. And take your seizure medications regularly SCIENCE INSTRUCTOR * Attachments The following attachments cannot be sent through Care Everywhere. * Seizure, Recurrent (Adult) (Tristanian) documented in this encounter Medications at Time of Discharge cyanocobalamin/foli c acid (vitamin P58-kkvhj acid) 2,500-400 mcg tablet,disintegrati ng 0 naproxen [...] 07/20/19 22 aspirin 81 mg chewable tablet BAG MACHINE OPERATOR 1 T PO D 5 8 03/22/20 [...] mg 24 hr tablet Take 2 tabs by mouth twice daily 360 tablet 3 8 09/17/19 19 enalapril (VASOTEC) 5 mg tablet TK [...] T PO D 3 8 03/22/20 19 meloxicam (MOBIC) 7.5 mg tablet TK 1 [...] by mouth twice daily 540 tablet 3 8 09/17/19 19 documented as of this encounter Discharge Disposition Disposition Code Departure Means Destination Discharge to home or self care documented in this encounter ED Notes * Nael Espana RN - 03/26/2018 1:22 PM CST Pt was at [facility], had seizure witnessed, EMS called, PT reports hx of seizures, reports that he has been directed to titrate down his medications SCIENCE INSTRUCTOR * Zahida Simpson MD - 03/26/2018 1:19 PM CST HPI Chief Complaint Patient presents with ??? Seizures HPI 1:19 PM Dennis Branch is a 53 y.o. male with a history of asthma, anxiety, depression,hypertension and seizures presenting to the ED via EMS for seizure- like activity onset today while at [facility]. He denies sustaining LOC after the episode that occurred ARBORIST CLIMBER. Patient reports having similar episodes to this in the past, but states he is unsure when his last seizure was. He states sometimes his ears will ring up, and will zone out intermittently and will often require his friends to help him. Patient is currently taking Topamax and Depakote for his seizures but has been instructed to titrate down his medications. Currently, patient admits to feeling tired. He denies having any headaches. There are no other complaints at this time. Patient last saw his neurologist, Dr. Jose, on 02/13/18 and was told to wean his TPM from 400mg BID to 300 mg BID and continue taking 1000mg BID. Patient History Past Medical History: Diagnosis Date ??? Anxiety [...] Placement - (Added by TW Conv) ??? MI CRANIOT W BONE FLAP FOR AMYGDALOHIPPOCAMPECTOMY Craniotomy For Amygdalohippocampectomy - (Added by TW Conv) Family History Problem Relation Age of Onset ??? Brain cancer Brother Brain tumor - (Added by TW Conv) Social History Substance Use Topics ??? Smoking status: Former Smoker ??? Smokeless tobacco: Not on file ??? Alcohol use No Review of Systems Review of Systems Constitutional: Positive for fatigue. Negative for chills and fever. HENT: Negative for congestion and sore throat. Respiratory: Negative for cough and shortness of breath. Cardiovascular: Negative for chest pain and palpitations. Gastrointestinal: Negative for diarrhea, nausea and vomiting. Musculoskeletal: Negative for back pain and neck pain. Skin: Negative for color change, pallor, rash and wound. Neurological: Positive for seizures (ARBORIST CLIMBER). Negative for syncope and headaches. All other systems reviewed and are negative. Physical Exam ED Triage Vitals Temp Pulse Resp BP SpO2 -- 03/26/18 1320 03/26/18 1320 03/26/18 1320 03/26/18 1325 82 13 122/77 95 % Temp src Heart Rate Source Patient Position BP Location FiO2 (%) -- -- -- -- -- Physical Exam Constitutional: He is oriented to person, place, and time. He appears well- developed and well-nourished. No distress. HENT: Head: Normocephalic and atraumatic. Eyes: Pupils are equal, round, and reactive to light. Conjunctivae and EOM are normal. Pupils are 3mm and reactive. Neck: Normal range of motion. Neck supple. Cardiovascular: Normal rate, regular rhythm and normal heart sounds. Exam reveals no gallop and no friction rub. No murmur heard. Pulmonary/Chest: Effort normal and breath sounds normal. No respiratory distress. He has no wheezes. He has no rales. Abdominal: Soft. There is no tenderness. Musculoskeletal: Normal range of motion. He exhibits no edema, tenderness or deformity. Neurological: He is alert and oriented to person, place, and time. Skin: Skin is warm and dry. No rash noted. No erythema. No pallor. Nursing note and vitals reviewed. Procedures [facility] Labs Reviewed COMPREHENSIVE METABOLIC PANEL - Abnormal Result Value Sodium 136 Potassium, pl 3.8 Chloride 105 CO2 20 (*) Anion Gap 15 BUN 8 Creatinine 0.68 (*) Glucose 198 Calcium 8.9 Bilirubin, total 0.30 Protein, pl 6.8 Albumin 3.8 Alk phos 94 ALT 63 (*) AST 92 (*) Narrative: CBC WITH AUTO DIFFERENTIAL WBC 6.7 Hgb 15.0 Hct 43.3 Plt 159 MPV 9.4 RBC 4.71 MCV 91.9 MCH 31.8 MCHC 34.6 RDW CV 12.0 RDW SD 40.5 NRBC Abs 0.00 Narrative: PROLACTIN Prolactin 6 Narrative: VALPROIC ACID LEVEL, TOTAL Valproic Acid 68.7 Narrative: DIFFERENTIAL AUTO Neutrophil absolute 2.7 Immature granulocyte absolute 0.0 Lymphocytes absolute 3.2 Monocyte absolute 0.5 Eosinophils absolute 0.2 Basophils, abs 0.0 Neutrophils 40.7 Immature granulocytes 0.7 Lymphocytes 47.6 Monocytes 7.5 Eosinophils 3.1 Basophils 0.4 Narrative: EGFR GFR 108 Narrative: No orders to display BP 101/75 Pulse 80 Resp 15 SpO2 99% MDM Number of Diagnoses or Management Options Seizure ([facility]): Amount and/or Complexity of Data Reviewed Clinical lab tests: ordered and reviewed ED Course as of Mar 26 1506 Time: 03/26 1418 Value: BP: 122/77 Comment: Pre-hypertension/Hypertension: The patient has been informed that they may have pre-hypertension or Hypertension based on a blood pressure reading in the Emergency Department. I recommend that the patient call the primary care provider listed on their discharge instructions or a physician of their choice this week to arrange follow up for further evaluation of possible pre- hypertension or Hypertension. By: Gemma Ellington Time: 03/26 1504 Comment: Rechecked patient. Condition is improved. Discussed the results of ED findings, and the plan for discharge. Recommended follow up with his neurologist or return to ED for new or worsening symptoms. Patient understands and agrees with plan. All other questions have been addressed. By: Gemma Ellington scribed for Zahida Simpson MD. I electronically signed this note at 3:06 PM on 03/26/2018. I, Zahida Simpson MD, have personally performed the services described in the documentation, reviewed the documentation, as recorded by the scribe in my presence, and it accurately and completely records my words and actions. Clinical Impression: Seizure (CMS/HCC) Zahida Simpson MD 03/26/18 1506 SCIENCE INSTRUCTOR * Joaquin Hankins RN - 03/26/2018 1:16 PM CST Bed: ED15 Expected date: Expected time: Means of arrival: Comments: 3027 siezure 41yo M Joaquin Hankins RN 03/26/18 1316 SCIENCE INSTRUCTOR documented in this encounter Plan of Treatment Not on file documented as of this encounter Procedures Procedure Name Priority Date/Time Associated Diagnosis Comments EGFR STAT 03/26/2018 1:33 PM AGRISCIENCE INSTRUCTOR DIFFERENTIAL AUTO STAT 03/26/2018 1:3 3 PM AGRISCIENCE INSTRUCTOR CBC WITH AUTO DIFFERENTIAL STAT 03/26/2018 1:33 PM AGRISCIENCE INSTRUCTOR PROLACTIN Routine 03/26/2018 1:33 PM AGRISCIENCE INSTRUCTOR VALPROIC ACID LEVEL, TOTAL STAT 03/26/2018 1:33 PM AGRISCIENCE INSTRUCTOR COMPREHENSIVE METABOLIC PANEL STAT 03/26/2018 1:33 PM AGRISCIENCE INSTRUCTOR documented in this encounter Results * eGFR (03/26/2018 1:33 PM AGRISCIENCE INSTRUCTOR) eGFR 108 mL/min/1.7 3 m2 JOHANNY VALENCIA Comment: Interpretive Data Reference Interval Normal ?>/= 90 mL/min/1.73m2 Mildly decreased* ? 60 - 89 mL/min/1.73m2 Mildly to moderately decreased ?45 - 59 mL/min/1.73m2 Moderately to severely decreased ??30 - 44 mL/min/1.73m2 Severely decreased ?15 - 29 mL/min/1.73m2 Kidney Failure ?< 15 ??mL/min/1.73m2 *Relative to young adult level If -[place] multiply value by 1.16. Estimated glomerular filtration [...] was last reviewed 2015. Blood specimen (specimen) 03/26/2018 1:33 PM AGRISCIENCE INSTRUCTOR 03/26/2018 1:38 PM AGRISCIENCE INSTRUCTOR Narrative [facility] - 03/26/2018 2:16 PM AGRISCIENCE INSTRUCTOR Zahida Simpson MD LAB BLOOD ORDERABLES Fi nal Result JOHANNY [address] [address] Department of Laboratories [place], [place] [id number] * Differential, auto (03/26/2018 1:33 PM AGRISCIENCE INSTRUCTOR) Neutrophil abs 2.7 1.7 - 6.5 K/cumm [facility] Imm gran abs 0.0 0.0 - 0.1 K/cumm [facility] Lymphocyte abs 3.2 0.8 - 3.3 K/cumm [facility] Monocyte abs 0.5 0.2 - 0.8 K/cumm [facility] Eosinophil abs 0.2 0.0 - 0.5 K/cumm [facility] Basophil abs 0.0 0.0 - 0.1 K/cumm [facility] Neutrophil pct 40.7 % [facility] Comment: Interpretive Data Percent cell count reference ranges are not reported, since discordance with absolute values may lead to misinterpretation of CBC data. Current Interpretive Data was last revised on 2017. Imm gran pct 0.7 % [facility] Comment: Interpretive Data Percent cell count reference ranges are not reported, since discordance with absolute values may lead to misinterpretation of CBC data. Current Interpretive Data was last revised on 2017. Lymphocyte pct 47.6 % [facility] Comment: Interpretive Data Percent cell count reference ranges are not reported, since discordance with absolute values may lead to misinterpretation of CBC data. Current Interpretive Data was last revised on 2017. Monocyte pct 7.5 % [facility] Comment: Interpretive Data Percent cell count reference ranges are not reported, since discordance with absolute values may lead to misinterpretation of CBC data. Current Interpretive Data was last revised on 2017. Eosinophil pct 3.1 % [facility] Comment: Interpretive Data Percent cell count reference ranges are not reported, since discordance with absolute values may lead to misinterpretation of CBC data. Current Interpretive Data was last revised on 2017. Basophil pct 0.4 % [facility] Comment: Interpretive Data Percent cell count reference ranges are not reported, since discordance with absolute values may lead to misinterpretation of CBC data. Current Interpretive Data was last revised on 2017. Blood specimen (specimen) 03/26/2018 1:33 PM AGRISCIENCE INSTRUCTOR 03/26/2018 1:38 PM AGRISCIENCE INSTRUCTOR Narrative [facility] - 03/26/2018 1:40 PM AGRISCIENCE INSTRUCTOR us Zahida Simpson MD LAB BLOOD ORDERABLES Fi nal Result JOHANNY [address] [address] [place] [address] * Valproic acid level, total (03/26/2018 1:33 PM AGRISCIENCE INSTRUCTOR) Pathologist [facility] [place] Valproic Acid 68.7 50.0 - 100.0 mg/L [facility] Blood specimen (specimen) 03/26/2018 1:33 PM AGRISCIENCE INSTRUCTOR 03/26/2018 1:38 PM AGRISCIENCE INSTRUCTOR Narrative [facility] - 03/26/2018 3:00 PM AGRISCIENCE INSTRUCTOR Zahida Simpson MD LAB BLOOD ORDERABLES Fi nal Result Performing Organization Address City/[facility] Co de Phone Number JOHANNY VALENCIA [address] [place] [address] * Prolactin (03/26/2018 1:33 PM AGRISCIENCE INSTRUCTOR) [facility] Prolactin 6 3 - 13 ng/mL [facility] Blood specimen (specimen) 03/26/2018 1:33 PM AGRISCIENCE INSTRUCTOR 03/26/2018 1:38 PM AGRISCIENCE INSTRUCTOR Narrative J[facility]ANNY - 03/26/2018 2:23 PM AGRISCIENCE INSTRUCTOR Zahida Simpson MD LAB BLOOD ORDERABLES Fi nal Result Performing Organization Address [facility] de Phone Number JOHANNY VALENCIA [address] [address] [facility] [employer] [place], [place] [id number] * CBC with auto differential (03/26/2018 1:33 PM AGRISCIENCE INSTRUCTOR) [facility] WBC 6.7 3.8 - 9.9 K/cumm [facility] Hgb 15.0 13.0 - 17.5 g/dL [facility] Hct 43.3 38.9 - 50.3 % [facility] Plt 159 150 - 400 K/cumm [facility] MPV 9.4 9.1 - 12.3 fL [facility] RBC 4.71 4.30 - 5.80 M/cumm [facility] MCV 91.9 81.3 - 96.4 fL [facility] MCH 31.8 27.1 - 33.3 pg [facility] MCHC 34.6 32.3 - 35.7 g/dL [facility] RDW CV 12.0 11.1 - 14.9 % [facility] RDW SD 40.5 35.7 - 48.1 fL [facility] NRBC abs 0.00 0.00 - 0.01 K/cumm [facility] Blood specimen (specimen) 03/26/2018 1:33 PM AGRISCIENCE INSTRUCTOR 03/26/2018 1:38 PM AGRISCIENCE INSTRUCTOR Narrative [facility] - 03/26/2018 1:40 PM AGRISCIENCE INSTRUCTOR us Zahida Simpson MD LAB [place] [address] [address] [place] [address] * (ABNORMAL) Comprehensive metabolic panel (03/26/2018 1:33 PM AGRISCIENCE INSTRUCTOR) Sodium 136 135 - 145 mmol/L [facility] Potassium, pl 3.8 3.5 - 5.1 mmol/L [facility] Chloride 105 100 - 114 mmol/L [facility] CO2 20(L) 22 - 32 mmol/L [facility] Anion gap 15 8 - 16 mmol/L [facility] BUN 8 8 - 24 mg/dL [facility] Creatinine 0.68(L) 0.70 - 1.40 mg/dL [facility] Glucose 198 70 - 199 mg/dL [facility] Comment: [...] interpretive data was last revised 2017. Calcium 8.9 8.4 - 10.5 mg/dL [facility] Bilirubin, total 0.30 0.10 - 1.30 mg/dL [facility] Protein, pl 6.8 6.0 - 8.3 g/dL [facility] Albumin 3.8 3.2 - 4.8 g/dL [facility] Alk phos 94 30 - 110 Units/L [facility] ALT 63(H) 5 - 50 Units/L [facility] AST 92(H) 7 - 40 Units/L [facility] Blood specimen (specimen) 03/26/2018 1:33 PM AGRISCIENCE INSTRUCTOR 03/26/2018 1:38 PM AGRISCIENCE INSTRUCTOR Narrative [facility] - 03/26/2018 2:16 PM AGRISCIENCE INSTRUCTOR us Zahida Simpson MD LAB BLOOD ORDERABLES Fi nal Result JOHANNY [address] [address] [place] [address] documented in this encounter Visit Diagnoses Diagnosis Seizure (HCC)- Primary Other convulsions documented in this encounter Administered Medications Inactive Administered Medications - up to 3 most recent administrations Medication Order MAR Action Action Date Dose Rate Site sodium chloride 0.9% bolus 1,000 mL 1,000 mL, intravenous, at 1,000 mL/hr, Administer over 1 Hours, Once, On Sun03/26/18 at 1328, For 1 dose New Bag 03/26/2018 2:08 PM AGRISCIENCE INSTRUCTOR 1,000 mL 1000 mL/hr documented in this encounter Active and Recently Administered Medications Times are shown in AGRISCIENCE INSTRUCTOR. Scheduled Medication Order 03/24/2018 03/25/2018 03/26/2018 sodium chloride 0.9% bolus 1,000 mL (COMPLETED) 1,000 mL, intravenous, at 1,000 mL/hr, Administer over 1 Hours, Once, On Sun03/26/18 at 1328, For 1 dose 1408 (New Bag - Prov ider: Nael Espana, RN)1508 (Due: Stopped - Provider: Nael Espana, RN)1519 (Stopped - Provider: Nael Espana, RN) documented in this encounter Orders Medications Ordered That Geo ht Not Have Been Administered Count Last Ordered Date First Ordered Date sodium chloride 0.9% bolus 1,000 mL 1 03/26 documented in this encounter Care Teams Branch Services Manager Relationship Specialty Start Date End Date Sergey Wilson MD PCP - General 09/20/16 documented as of this encounter
--- OUTSIDE RECORDS SUMMARY | 2024-05-24 02:09 | XMS_ITS | Encounter Summary ---
Author Organization [facility] Address [address] [place] [address] Care Team Providers Care Fund Raiser Name Role Phone Sergey Wilson MD Primary Care Provider Encounter Details Date Type Department Care Team (Late st Contact Info) Description 11/01/2017 Orders Only [facility] [address] [phone] Provider, MD Kareem [address] [place] [address] Social History Tobacco Use Types Packs/Day Years Used Date Smoking Tobacco: Former Sex and Gender Information Value Date Recorded Sex Assigned at Not on file 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 MUFFLER TENDER Gender Identity Not on file Sexual Orientation Not on file documented as of this encounter Plan of Treatment Not on file documented as of this encounter Procedures Procedure Name Priority Date/Time Associated Diagnosis Comments TRANSTHORACIC ECHO (TTE) COM PLETE W DOPPLER/CF Routine 04/27/2017 documented in this encounter Results * Transthoracic Echo Complete W Doppler/CF (04/27/2017) Anatomical Region Laterality Modality Ultrasound Historical Provider CV ECHO PROCEDURES Final Result documented in this encounter Visit Diagnoses Not on filedocumented in this encounter Care Teams Fund Raiser Relationship Specialty Start Date End Date Sergey Wilson MD PCP - General 09/20/16 documented as of this encounter
--- OUTSIDE RECORDS SUMMARY | 2024-05-24 02:09 | XMS_ITS | Encounter Summary ---
Author Organization [facility] Address [address] [place] [address] Phone Care Team Providers Care Minute Clerk Name Role Phone Sergey Wilson MD Primary Care Provider [phone] Encounter Details Date Type Department Care Team (Late st Contact Info) Description 09/16/2018 Telephone [facility] Epilepsy [address] [place] [address] [place] [address] Karolina Morris, RN Social History Tobacco Use Types Packs/Day Years Used Date Smoking Tobacco: Former Smokeless Tobacco: Never Alcohol Use Standard Drinks/Week Comments No 0 (1 standard drink = 0.6 oz pur e alcohol) Sex and Gender Information Value Date Recorded Sex Assigned at Not on file 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 AUTISM TUTOR Gender Identity Not on file Sexual Orientation Not on file documented as of this encounter Miscellaneous Notes * Telephone Encounter - Clifton Jose MD PhD - 09/16/2018 2:11 PM CDT He's here within the carlie period. No problem. Will thank him for calling when I see him. Jordan * Telephone Encounter - Karolina Morris RN - 09/16/2018 1:47 PM CDT The patient called and stated he was running a little late and wanted to let know. Informed the patient to check at the desk in the clinic when he arrives. May need to reschedule. Called the clinic and spoke to Heather that the patient is running late. [phone] documented in this encounter Plan of Treatment Not on file documented as of this encounter Visit Diagnoses Not on filedocumented in this encounter Care Teams Minute Clerk Relationship Specialty Start Date End Date Sergey Wilson MD PCP - General 09/20/16 documented as of this encounter
--- OUTSIDE RECORDS SUMMARY | 2024-05-24 02:09 | XMS_ITS | Encounter Summary ---
Author Organization [facility] Healthcare Address [address] [place] [address] Care Team Providers Care Sink Maker Name Role Phone Sergey Wilson MD Primary Care Provider [phone] Encounter Details Date Type Department Care Team (Latest Contact Info) Description 10/29/2018 9:39 PM CDT - 10/29/2018 11:59 PM CDT Hospital Encounter [facility] [...] on file 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 BAT PERSON Gender Identity Not on file Sexual Orientation Not on file documented as of this encounter Medications at Time of Discharge cyanocobalamin/foli c acid (vitamin D79-zsqmq acid) 2,500-400 mcg tablet,disintegrati ng 0 naproxen [...] 07/20/19 22 aspirin 81 mg chewable tablet HORTICULTURAL WORKER 1 T PO D 5 8 03/22/20 [...] on filedocumented in this encounter Care Teams Sink Maker Relationship Specialty Start Date End Date Sergey Wilson MD PCP - General 09/20/16 documented as of this encounter
--- OUTSIDE RECORDS SUMMARY | 2024-05-24 02:09 | XMS_ITS | Encounter Summary ---
Author Organization [facility] Healthcare Address [address] [place] [address] Care Team Providers Care Public Relations Officer Name Role Phone Sergey Wilson MD Primary Care Provider [phone] Encounter Details Date Type Department Care Team (Latest Contact Info) Description 11/30/2018 4:51 PM CDT - 11/30/2018 11:59 PM CDT Hospital Encounter [facility] [...] on file 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 DANCE CRITIC Gender Identity Not on file Sexual Orientation Not on file documented as of this encounter Medications at Time of Discharge cyanocobalamin/foli c acid (vitamin U84-ezslb acid) 2,500-400 mcg tablet,disintegrati ng 0 naproxen [...] 07/20/19 22 aspirin 81 mg chewable tablet STILL OPERATOR BATCH OR CONTINUOUS 1 T PO D 5 8 03/22/20 [...] filedocumented in this encounter Care Teams Public Relations Officer Relationship Specialty Start Date End Date Sergey Wilson MD PCP - General 09/20/16 documented as of this encounter
--- OUTSIDE RECORDS SUMMARY | 2024-05-24 02:09 | XMS_ITS | Encounter Summary ---
Author Organization [facility] Healthcare Address [address] [place] [address] Care Team Providers Care Hand Spray Operator Name Role Phone Sergey Wilson MD Primary Care Provider [phone] Encounter Details Date Type Department Care Team (Latest Contact Info) Description 2019 5:51 PM CDT - 2019 11:59 PM CDT Hospital Encounter [facility] [...] on file 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 CAREER COUNSELOR Gender Identity Not on file Sexual Orientation Not on file documented as of this encounter Medications at Time of Discharge cyanocobalamin/foli c acid (vitamin H63-lldse acid) 2,500-400 mcg tablet,disintegrati ng 0 naproxen [...] 07/20/19 22 aspirin 81 mg chewable tablet LEGAL COLLECTOR 1 T PO D 5 8 03/22/20 [...] on filedocumented in this encounter Care Teams Hand Spray Operator Relationship Specialty Start Date End Date Sergey Wilson MD PCP - General 09/20/16 documented as of this encounter
--- OUTSIDE RECORDS SUMMARY | 2024-05-24 02:09 | XMS_ITS | Encounter Summary ---
Author Organization [facility] Care Team Providers Care Job Placement Counselor Name Role Phone Sergey Wilson MD Primary Care Provider [phone] Encounter Details Date Type Department Care Team (Latest Contact Info) Description 12/30/2018 Travel Social History Tobacco Use Types Packs/Day Years Used Date Smoking Tobacco: Former Smokeless Tobacco: Never Alcohol Use Standard Drinks/Week Comments No 0 (1 standard drink = 0.6 oz pur e alcohol) Sex and Gender Information Value Date Recorded Sex Assigned at Not on file 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 COOKER TENDER Gender Identity Not on file Sexual Orientation Not on file documented as of this encounter Plan of Treatment Not on file documented as of this encounter Visit Diagnoses Not on filedocumented in this encounter Care Teams Job Placement Counselor Relationship Specialty Start Date End Date Sergey Wilson MD PCP - General 09/20/16 documented as of this encounter
--- OUTSIDE RECORDS SUMMARY | 2024-05-24 02:09 | XMS_ITS | Encounter Summary ---
Author Organization [facility] Healthcare Address [address] [place] [address] Care Team Providers Care Surgical Oncologist Name Role Phone Sergey Wilson MD Primary Care Provider [phone] Encounter Details Date Type Department Care Team (Latest Contact Info) Description 11/25/2018 9:44 PM CDT - 11/25/2018 11:59 PM CDT Hospital Encounter [facility] [...] on file 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 TEAMSITE DEVELOPER Gender Identity Not on file Sexual Orientation Not on file documented as of this encounter Medications at Time of Discharge cyanocobalamin/foli c acid (vitamin X91-uxmvu acid) 2,500-400 mcg tablet,disintegrati ng 0 naproxen [...] 07/20/19 22 aspirin 81 mg chewable tablet MACHINE JOINER CEMENTER 1 T PO D 5 8 03/22/20 [...] on filedocumented in this encounter Care Teams Surgical Oncologist Relationship Specialty Start Date End Date Sergey Wilson MD PCP - General 09/20/16 documented as of this encounter
--- OUTSIDE RECORDS SUMMARY | 2024-05-24 02:09 | XMS_ITS | Encounter Summary ---
Author Organization [facility] Address [address] [place] [address] Phone Care Team Providers Care Administrative Assistant Receptionist Name Role Phone Sergey Wilson MD Primary Care Provider [phone] Encounter Details Date Type Department Care Team (Late st Contact Info) Description 05/21/2018 Telephone [facility] Scheduling [address] [place] [address] Mecca Rendon Social History Tobacco Use Types Packs/Day Years Used Date Smoking Tobacco: Former Alcohol Use Standard Drinks/Week Comments No 0 (1 standard drink = 0.6 oz pur e alcohol) Sex and Gender Information Value Date Recorded Sex Assigned at Not on file 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 This nurse spoke to pt and documentation is in alternate encounter. NT DEVELOPMENT COORDINATOR * Telephone Encounter - Mecca Rendon - 05/21/2018 11:04 AM TALENT DEVELOPMENT COORDINATOR Nancy from [place] called and Patient needs to speak to nurse about stopping medications per the providers at [facility] Dr. Elenita Bower. He was diagnosised w/ copd and found unresponsive in his [facility] this week. Pt is not wanting to stop seizure meds until he speaks with Dr. Arriaza office. NT DEVELOPMENT COORDINATOR documented in this encounter Plan of Treatment Not on file documented as of this encounter Visit Diagnoses Not on filedocumented in this encounter Care Teams Administrative Assistant Receptionist Relationship Specialty Start Date End Date Sergey Wilson MD PCP - General 09/20/16 documented as of this encounter
--- OUTSIDE RECORDS SUMMARY | 2024-05-24 02:09 | XMS_ITS | Encounter Summary ---
Author Organization [facility] Address [address] [place] [address] Phone Care Team Providers Care Correspondence Section Supervisor Name Role Phone Sergey Wilson MD Primary Care Provider Encounter Details Date Type Department Care Team (Late st Contact Info) Description 02/07/2018 Telephone [facility] Epilepsy [address] 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 Francie documented in this encounter Plan of Treatment Not on file documented as of this encounter Visit Diagnoses Not on filedocumented in this encounter Care Teams Correspondence Section Supervisor Relationship Specialty Start Date End Date Sergey Wilson MD PCP - General 09/20/16 documented as of this encounter
--- OUTSIDE RECORDS SUMMARY | 2024-05-24 02:09 | XMS_ITS | Encounter Summary ---
Author Organization [facility] Healthcare Address [address] [place] [address] Care Team Providers Care Can Vacuum Tester Name Role Phone Sergey Wilson MD Primary Care Provider Encounter Details Date Type Department Care Team (Latest Contact Info) Description 05/23/2018 1:39 PM VICE PRESIDENT PLANNING - 05/23/2018 11:59 PM VICE PRESIDENT PLANNING Hospital Encounter [facility] Discharge Disposition: Discharge to home or self care Social History Tobacco Use Types Packs/Day Years Used Date Smoking Tobacco: Former Alcohol Use Standard Drinks/Week Comments No 0 (1 standard drink = 0.6 oz pur e alcohol) Sex and Gender Information Value Date Recorded Sex Assigned at Not on file 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 VICE PRESIDENT PLANNING Gender Identity Not on file Sexual Orientation Not on file documented as of this encounter Medications at Time of Discharge cyanocobalamin/foli c acid (vitamin M21-gposm acid) 2,500-400 mcg tablet,disintegrati ng 0 naproxen [...] 07/20/19 22 aspirin 81 mg chewable tablet HEAD COACH 1 T PO D 5 8 03/22/20 [...] on filedocumented in this encounter Care Teams Can Vacuum Tester Relationship Specialty Start Date End Date Sergey Wilson MD PCP - General 09/20/16 documented as of this encounter
--- OUTSIDE RECORDS SUMMARY | 2024-05-24 02:09 | XMS_ITS | Encounter Summary ---
Author Organization [facility] Healthcare Address [address] [place] [address] Care Team Providers Care Manufacturing Technician Name Role Phone Sergey Wilson MD Primary Care Provider [phone] Reason for Visit * Reason Comments Seizures Encounter Details Date Type Department Care Team (Late st Contact Info) Description 06/05/2019 2:59 PM FURNACE COMBINATION ANALYST - 06/07/2019 8:00 PM [facility] [place] [address] Joshua Benjamin [address] [facility] [place] [address] Jeremias Lopez [address] [place] [address] Sergey [place] [id number] [place] [address] Syncope and collapse (Primary Dx) Discharge Disposition: Discharge to home or self care Social History Tobacco Use Types Packs/Day Years Used Date Smoking Tobacco: Former Smokeless Tobacco: Never Alcohol Use Standard Drinks/Week Comments No 0 (1 standard drink = 0.6 oz pur e alcohol) Sex and Gender Information Value Date Recorded Sex Assigned at Not on file 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 FURNACE COMBINATION ANALYST Gender Identity Not on file Sexual Orientation Not on file documented as of this encounter Last Filed Vital Signs Vital Sign Reading Time Taken Comments Blood Pressure 127/60 06/07/2019 9:54 AM FURNACE COMBINATION ANALYST Pulse 88 06/07/2019 12:31 PM FURNACE COMBINATION ANALYST Temperature 37.1 ??C (98.8 ??F) 06/07/2019 1 2:31 PM FURNACE COMBINATION ANALYST Respiratory Rate 18 06/07/2019 12:3 1 PM FURNACE COMBINATION ANALYST Oxygen Saturation 97% 06/07/2019 12: 31 PM FURNACE COMBINATION ANALYST Inhaled Oxygen Concentration - - Weight 101.8 kg (224 lb 6.9 oz) 06/06/2019 2:00 AM FURNACE COMBINATION ANALYST Height 177.8 cm (5' 10 ) 06/05/2019 6:19 PM FURNACE COMBINATION ANALYST Body Mass Index 32.2 06/05/2019 6:19 PM FURNACE COMBINATION ANALYST documented in this encounter Discharge Diagnoses Diagnosis Unspecified convulsions (HCC) - UNSPECIFIED CONVULSIONS Unspecified asthma, uncomplicated - UNSPECIFIED ASTHMA, UNCOMPLICATED Essential (primary) hypertension - ESSENTIAL (PRIMARY) HYPERTENSION Unspecified essential hypertension Anxiety disorder, unspecified - ANXIETY DISORDER, UNSPECIFIED Major depressive disorder, single episode, unspecified - MAJOR DEPRESSIVE DISORDER, SINGLE EPISODE, UNSPECIFIED Gastro-esophageal reflux disease without esophagitis - GASTRO-ESOPHAGEAL REFLUX DISEASE WITHOUT ESOPHAGITIS Type 2 diabetes mellitus without complications ([facility]/HCC) ([facility]) - TYPE 2 DIABETES MELLITUS WITHOUT COMPLICATIONS Hypothyroidism, unspecified - HYPOTHYROIDISM, UNSPECIFIED Encounter for immunization - ENCOUNTER FOR IMMUNIZATION Cardiac arrhythmia, unspecified - CARDIAC ARRHYTHMIA, UNSPECIFIED Presence of cardiac pacemaker - PRESENCE OF CARDIAC PACEMAKER Cardiac pacemaker in situ Allergy status to other drugs, medicaments and biological substances status - ALLERGY STATUS TO OTHER DRUGS, MEDICAMENTS AND BIOLOGICAL SUBSTANCES STATUS Personal history of nicotine dependence - PERSONAL HISTORY OF NICOTINE DEPENDENCE 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 - ASSISTED (CURRENT) USE OF ASPIRIN senior living (current) use of insulin (HCC) - 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 (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) USE OF 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 Other retirement (current) drug therapy - OTHER ASSISTED (CURRENT) DRUG THERAPY senior living (current) use of non-steroidal anti-inflammatories (nsaid) - ASSISTED (CURRENT) USE OF NON-STEROIDAL ANTI-INFLAMMATORIES (NSAID) Other specified postprocedural states - OTHER SPECIFIED POSTPROCEDURAL STATES documented in this encounter Discharge Summaries * Sergey Villa MD - 06/07/2019 5:56 PM CST INPATIENT DISCHARGE SUMMARY BRIEF OVERVIEW Admitting Provider: Jeremias Lopez DO Discharge Provider: Sergey Villa MD Primary Care Physician at Discharge: Sergey Wilson MD [phone] Admission Date: 06/05/2019 Discharge Date: 06/07/2019 PRIMARY DISCHARGE DIAGNOSIS Recurrent seizures SECONDARY DISCHARGE DIAGNOSIS Recurrent seizures (CMS/HCC) Pacemaker Diabetes (CMS/HCC) Hypertension Asthma Hypothyroidism Anxiety and depression GERD (gastroesophageal reflux disease) S/P lobectomy of brain DETAILS OF HOSPITAL STAY CONSULTING PHYSICIANS: Treatment Team: Consulting Physician: Brett Mcgill II, MD; Consulting Physician: Kris Noriega MD PRESENTING PROBLEM/HISTORY OF PRESENT ILLNESS/HOSPITAL COURSE Patient is a 54 y.o. 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 Presents to the ED with a chief complaint of seizure. Patient states that he was in the lobby of the hospital sitting in a chair near registration, when all of a sudden everything went blank and he heard ringing in his ears. He states that it lasted 5 minutes and he was taken to the ED. He had another episode in the ED, that appeared to be an absence seizure. While talking with the patient, he all of a sudden began to stare blankly, slumped over, and his arms went limp. This lasted ~2 minutes before he started to wake up. He states he does not remember anything that happened, he just c/o ringing in his ears. His vital signs remained stable during the episode. He denies missing any medications. He states that these seizures are happening more frequently lately. Per chart review, patient last saw his Neurologist (Dr Jose) in September 2018. At that time, he reported multiple spells w/ prolonged unresponsiveness that had no EEG correlate and was consistent w/ non-epileptic events. During the evaluation of his new spells, he was found to have EKG changes and established w/ a physical therapy teacher. He had a pacemaker placed thereafter. 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 He has been advised to go to counseling and engage in talk therapy to treat these non- epileptic events numerous times. 06/06/2019: Sitting up in chair awake alert. No distress no issues since admit. Seen by Cardiology Neurology. Discussed case with neurology. Per Neurology no new workup all workup has been done in [place] patient to follow-up there. Cardiology planning to interrogate loop recorder awaiting that and if that is okay patient can then go home. Recurring non epileptiform seizures. 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 Seen by neuro. Plans to follow-up with his neurologist in [place] continue medications. Cardiology line to interrogate his loop recorder to see if there were any arrhythmias during the time of the episode. Currently on Depakote Keppra Topamax Diabetes mellitus continue insulin monitor fingerstick blood sugar Essential hypertension continue Avapro monitor blood pressure History of asthma moderate persistent on Advair breathing treatments as needed Hypothyroidism continue Synthroid Depression and anxiety continue meds monitor GERD continue Protonix Neurology mpression and Recommendations. 1. Nonepileptic events. 2. History of temporal lobe epilepsy status post right temporal lobectomy Both conditions are chronic conditions. I would continue current doses of topiramate and Depakote. At levetiracetam will be discontinued. Cardiology evaluation is in progress at I do not think there is anything am going to add from the neurology standpoint he needs to go back and see his epileptologist at [facility]. MRI of the brain will be canceled as this will not change further management. Thank you for allowing me to participate in patient's care will be signing off thecase. Brett Mcgill MD CARDIOLOGY ASSESSMENT/PLAN: 1. Syncope /Seizures Pt has a h/o seizure disorder There were no abnormalities noted on telemetry , pt has a loop recorder , will have him send in a transmission to evaluate, he can do this when he gets home Pt has had an extensive work up Echo is normal ,Stress test showed no ischemia Carotid doppler showed less than 50% b/l carotid stenosis His trops are normal Will have him see Dr Carlos in f/up next week Maggie Grimes MD, [facility] TEST RESULTS PENDING AT DISCHARGE OPERATIVE PROCEDURES PERFORMED OTHER PROCEDURES PERTINENT TEST RESULTS RADIOLOGY: LABS AT DISCHARGE: Recent Results (from the past 24 hour(s)) POCT glucose Collection Time: 06/06/19 9:32 PM Result Value Ref Range Glucose, POC 131 70 - 199 mg/dL POCT glucose Collection Time: 06/07/19 5:55 AM Result Value Ref Range Glucose, POC 120 70 - 199 mg/dL POCT glucose Collection Time: 06/07/19 11:35 AM Result Value Ref Range Glucose, POC 99 70 - 199 mg/dL DISCHARGE DETAILS PHYSICAL EXAM Discharge Condition: stable Pulse: 88 Resp: 18 BP: 127/60 Temp: 37.1 ??C (98.8 ??F) Weight: 101.8 kg (224 lb 6.9 oz) BP 127/60 Pulse 88 Temp 37.1 ??C (98.8 ??F) (Oral) Resp 18 Ht 177.8 cm (5' 10 ) Wt 101.8 kg (224 lb 6.9 oz) SpO2 97% BMI 32.20 kg/m?? Pertinent Exam Findings at Discharge: DISCHARGE DISPOSITION Discharge to home or self care Full Code DISCHARGE INSTRUCTIONS DISCHARGE MEDICATIONS Your medication list CONTINUE taking these medications albuterol 1.25 mg/3 mL nebulizer solution albuterol HFA 90 mcg/actuation inhaler Commonly known as: PROVENTIL HFA,VENTOLIN HFA,PROAIR HFA aspirin 81 mg chewable tablet citalopram 40 mg tablet Commonly known as: CeleXA cyclobenzaprine 10 mg tablet Commonly known as: FLEXERIL dicyclomine 10 mg capsule Commonly known as: BENTYL divalproex ER 500 mg 24 hr tablet Commonly known as: DEPAKOTE ER empagliflozin 25 mg tablet Commonly known as: JARDIANCE enalapril 5 mg tablet Commonly known as: VASOTEC ergocalciferol 50,000 unit capsule Commonly known as: VITAMIN D fluticasone propion-salmeterol 250-50 mcg/dose diskus inhaler Commonly known as: ADVAIR DISKUS fluticasone propionate 50 mcg/actuation nasal spray Commonly known as: FLONASE icosapent ethyl 1 gram capsule Commonly known as: VASCEPA levothyroxine 50 mcg tablet Commonly known as: SYNTHROID meclizine 25 mg tablet Commonly known as: ANTIVERT meloxicam 7.5 mg tablet Commonly known as: MOBIC montelukast 10 mg tablet Commonly known as: SINGULAIR nortriptyline 75 mg capsule Commonly known as: PAMELOR omeprazole 20 mg capsule Commonly known as: PriLOSEC OneTouch Ultra Blue Test Strip strip Generic drug: blood glucose diagnostic OneTouch Ultra2 Meter kit Generic drug: blood-glucose meter pioglitazone 30 mg tablet Commonly known as: ACTOS topiramate 200 mg tablet Commonly known as: TOPAMAX traMADol 50 mg tablet Commonly known as: ULTRAM Your medication list CONTINUE taking these medications Instructions Last Dose Given Next Dose Due albuterol 1.25 mg/3 mL nebulizer solution albuterol HFA 90 mcg/actuation inhaler Commonly known as: PROVENTIL HFA,VENTOLIN HFA,PROAIR HFA aspirin 81 mg chewable tablet citalopram 40 mg tablet Commonly known as: CeleXA cyclobenzaprine 10 mg tablet Commonly known as: FLEXERIL dicyclomine 10 mg capsule Commonly known as: BENTYL divalproex ER 500 mg 24 hr tablet Commonly known as: DEPAKOTE ER empagliflozin 25 mg tablet Commonly known as: JARDIANCE enalapril 5 mg tablet Commonly known as: VASOTEC ergocalciferol 50,000 unit capsule Commonly known as: VITAMIN D fluticasone propion-salmeterol 250-50 mcg/dose diskus inhaler Commonly known as: ADVAIR DISKUS fluticasone propionate 50 mcg/actuation nasal spray Commonly known as: FLONASE icosapent ethyl 1 gram capsule Commonly known as: VASCEPA levothyroxine 50 mcg tablet Commonly known as: SYNTHROID meclizine 25 mg tablet Commonly known as: ANTIVERT meloxicam 7.5 mg tablet Commonly known as: MOBIC montelukast 10 mg tablet Commonly known as: SINGULAIR nortriptyline 75 mg capsule Commonly known as: PAMELOR omeprazole 20 mg capsule Commonly known as: PriLOSEC OneTouch Ultra Blue Test Strip strip Generic drug: blood glucose diagnostic OneTouch Ultra2 Meter kit Generic drug: blood-glucose meter pioglitazone 30 mg tablet Commonly known as: ACTOS topiramate 200 mg tablet Commonly known as: TOPAMAX traMADol 50 mg tablet Commonly known as: ULTRAM OUTPATIENT FOLLOW-UP Future Appointments Date Time Provider Department Center 10/07/2019 10:00 AM Clifton Jose MD PhD EPI CAM 6C NL No follow-up provider specified. Voice recognition [employer] Fluency Direct Software was used dictate and transcribe this document. Spark Plug Tester variances may occur. Despite proofreading, typographical errors may occur. Sergey Villa MD Time Spent on Discharge: 40 min ACE COMBINATION ANALYST documented in this encounter Medications at Time of Discharge aspirin 81 mg chewable tablet Take 1 tablet (81 mg total) by mouth daily citalopram (CeleXA) 40 mg tablet Take 1 tablet (40 mg total) by mouth every morning cyanocobalamin/f olic acid (vitamin D16-mkaeu acid) 2,500-400 mcg tablet,disintegr ating 05/14/1969 cyclobenzaprine [...] (50 mcg total) by mouth early childhood associate before breakfast montelukast (SINGULAIR) 10 mg tablet [...] strip USE TO TEST QD 0 09/13/2017 [employer]inci MediaTOUCH ULTRA2 kit USE TO TEST QD 0 [...] documented in this encounter Progress Notes * Maggie Grimes MD - 06/07/2019 10:08 AM CST [facility] Daily Progress SUBJECTIVE: Denies any new sx OBJECTIVE: Vitals: 06/06/19 1952 06/06/19 2344 06/07/19 0343 06/07/19 0954 BP: 107/66 110/65 119/65 127/60 BP Location: Right arm Right arm Right arm Patient Position: Sitting Lying Lying Pulse: 71 66 69 83 Resp: 15 18 Temp: 36.8 ??C (98.2 ??F) 36.5 ??C (97.7 ??F) 36.8 ??C (98.2 ??F) TempSrc: Oral Axillary Oral SpO2: 96% 96% 99% Weight: Height: Intake/Output Summary (Last 24 hours) at 06/07/2019 1008 Last data filed at 06/06/2019 2344 Gross per 24 hour Intake 940 ml Output 0 ml Net 940 ml Exam General appearance: Alert Lungs: CTA Heart: RRR Abdomen: soft Extremities: no edema Current Facility-Administered Medications Medication Dose Route Frequency Last Rate Last Dose ??? acetaminophen (TYLENOL) tablet 650 mg 650 mg oral Q4H PRN ??? aspirin chewable tablet 81 mg 81 mg oral Daily 81 mg at 06/07/19 0945 ??? citalopram (CeleXA) tablet 40 mg 40 mg oral QAM 40 mg at 06/07/19 0947 ??? cyclobenzaprine (FLEXERIL) tablet 10 mg 10 mg oral BID 10 mg at 06/07/19 0946 ??? dextrose oral liquid liquid 15 g 15 g oral Q15 Min PRN Or ??? dextrose (D10W) 10% bolus 250 mL 250 mL intravenous Q15 Min PRN ??? dicyclomine (BENTYL) tablet 10 mg 10 mg oral TID 10 mg at 06/07/19 0950 ??? divalproex ER (DEPAKOTE ER) 24 hour tablet 1,000 mg 1,000 mg oral BID 1,000 mg at 06/07/19 0946 ??? enalapril (VASOTEC) tablet 5 mg 5 mg oral Daily 5 mg at 06/07/19 0954 ??? enoxaparin (LOVENOX) syringe 40 mg 40 mg subcutaneous Daily-2100 40 mg at 06/06/192125 ??? fluticasone propion-salmeterol (ADVAIR DISKUS) 250-50 mcg/dose diskus inhaler 1 puff 1 puff inhalation BID (RT) 1 puff at 06/07/19 0902 ??? glucagon injection 1 mg 1 mg intramuscular Q30 Min PRN ??? insulin lispro (HumaLOG) injection 1-3 Units 1-3 Units subcutaneous Nightly ??? insulin lispro (HumaLOG) injection 1-5 Units 1-5 Units subcutaneous TID with meals Stopped at 06/07/19 0800 ??? ipratropium-albuterol (DUO-NEB) 0.5-2.5 mg/3 mL nebulizer solution 3 mL 3 mL nebulization Q4H PRN (RT) ??? levothyroxine (SYNTHROID) tablet 50 mcg 50 mcg oral Daily - 0600 50 mcg at 06/07/19550 ??? LORazepam (ATIVAN) injection 2 mg 2 mg intravenous Q5 Min PRN ??? meclizine (ANTIVERT) tablet 25 mg 25 mg oral TID PRN ??? montelukast (SINGULAIR) tablet 10 mg 10 mg oral Daily 10 mg at 06/07/19945 ??? nortriptyline (PAMELOR) capsule 75 mg 75 mg oral BID 75 mg at 06/07/19950 ??? ondansetron (ZOFRAN) injection 4 mg 4 mg intravenous Q4H PRN ??? pantoprazole DR (PROTONIX) extended release tablet 40 mg 40 mg oral Daily 40 mg at 06/07/19945 ??? topiramate (TOPAMAX) tablet 200 mg 200 mg oral BID 200 mg at 06/07/19945 LABS: Recent Labs Lab Units 06/06/19 0739 WBC K/cumm 6.4 HEMOGLOBIN g/dL 15.5 HEMATOCRIT % 50.6* PLATELETS K/cumm 166 Recent Labs Lab Units 06/07/19 0555 06/06/19 0739 SODIUM mmol/L -- -- 134* POTASSIUM PLASMA mmol/L -- -- 4.3 CHLORIDE mmol/L -- -- 98 CO2 mmol/L -- -- 23 ANIONGAP mmol/L -- -- 13 GLUCOSE mg/dL -- -- 126 POC GLUCOSE MONITOR mg/dL 120 < > -- BUN SERUM mg/dL -- -- 12 CREATININE mg/dL -- -- 0.94 CALCIUM mg/dL -- -- 9.2 ALBUMIN g/dL -- -- 4.2 ALK PHOS Units/L -- -- 76 ALT Units/L -- -- 18 AST Units/L -- -- 28 BILIRUBIN TOTAL mg/dL -- -- 0.3 < > = values in this interval not displayed. No results found for: BNP Lab Results Component Value Date TROPONINI <0.03 10/20/2017 TROPONINI <0.03 09/23/2016 TROPONINI <0.03 06/16/2013 No results found for: HGBA1C Lab Results Component Value Date TSH 3.55 05/25/2013 EKG: Results for orders placed during the hospital encounter of 06/05/19 ECG 12 lead Narrative Vent Rate: 84 bpm RR Interval: 714 msec [place] Interval: 208 msec QRS Duration: 129 msec QT Interval: 403 msec QTC Interval: 443 msec P-R-T Villalba: 28 - 143 - 13 degrees SINUS RHYTHM RIGHT BUNDLE BRANCH BLOCK LEFT POSTERIOR FASCICULAR BLOCK ABNORMAL ECG Compared to previous ECG the left posterior fascicular block is new Electronically Signed By: Viet Luque MD, [facility] ASSESSMENT/PLAN: 1. Syncope /Seizures Pt has a h/o seizure disorder There were no abnormalities noted on telemetry , pt has a loop recorder , will have him send in a transmission to evaluate, he can do this when he gets home Pt has had an extensive work up Echo is normal ,Stress test showed no ischemia Carotid doppler showed less than 50% b/l carotid stenosis His trops are normal Will have him see Dr Carlos in f/up next week Maggie Grimes MD, [facility] [phone] [facility] 06/07/2019 10:08 AM ACE COMBINATION ANALYST * Julianne Lee RN - 06/06/2019 4:59 PM CST 06/06/19 1549 Information Information Obtained From Patient Referral Data Referral Source Self referral Referral Reason Discharge Planning Prior to Admission Primary Caregiver Self Support System Parent Support system contact info (name, phone, availablity) Sophia Pozo mother # [phone], brother Rafa Branch # [phone] Home Care Services No Durable Medical Equipment Cane (single prong) Type of Residence Apartment Steps in home? Yes, Outside of home Number of steps outside: 20 steps Financial Resource Income SSD/SSI Payor Source Medicaid Potential Discharge Needs Anticipated discharge level of care Private residence Pt/Family agrees with Anticipated Level of Care Yes Patient expects to be discharged to: Private residence Dialysis No spoke with pt in room. Pt in chair. Does not drive. Nephew lives with pt. CM will follow for dc needs. ACE COMBINATION ANALYST * Nuha Hayward RRT - 06/06/2019 8:39 AM CST 06/06/19 0838 RT Protocol Assessment RT Assessment Scoring Needed Bronchodilator Bronchodilator Assessment Scoring Pulmonary Status 3 Surgical Status <30 days ago 0 Chest X-Ray < WEEK 0 Respiratory Pattern 0 Mental Status/LOC 0 Cough 0 Breath Sounds 0 Level of Activity 1 Oxygen Required for SPO2 >92% 0 Bronhcodilator Assessment Score 4 Patient with history of asthma admitted with periods of passing out. Asthma stable will continue tosee patient per home schedule. Nuha Hayward RRT 8:40 AM 06/06/2019 ACE COMBINATION ANALYST * Sergey Villa MD - 06/06/2019 6:05 AM CST HOSPITALIST PROGRESS NOTE PCP: Sergey Wilson [phone] Admit Date: 06/05/2019 2:59 PM LOS: 0 CHIEF COMPLAINT/ HOSPITAL COURSE Patient is a 54 y.o. 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 Presents to the ED with a chief complaint of seizure. Patient states that he was in the lobby of the hospital sitting in a chair near registration, when all of a sudden everything went blank and he heard ringing in his ears. He states that it lasted 5 minutes and he was taken to the ED. He had another episode in the ED, that appeared to be an absence seizure. While talking with the patient, he all of a sudden began to stare blankly, slumped over, and his arms went limp. This lasted ~2 minutes before he started to wake up. He states he does not remember anything that happened, he just c/o ringing in his ears. His vital signs remained stable during the episode. He denies missing any medications. He states that these seizures are happening more frequently lately. Per chart review, patient last saw his Neurologist (Dr Jose) in September 2018. At that time, he reported multiple spells w/ prolonged unresponsiveness that had no EEG correlate and was consistent w/ non-epileptic events. During the evaluation of his new spells, he was found to have EKG changes and established w/ a physical therapy teacher. He had a pacemaker placed thereafter. 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 He has been advised to go to counseling and engage in talk therapy to treat these non- epileptic events numerous times. SUBJECTIVE 06/06/2019: Sitting up in chair awake alert. No distress no issues since admit. Seen by Cardiology Neurology. Discussed case with neurology. Per Neurology no new workup all workup has been done in [place] patient to follow-up there. Cardiology planning to interrogate loop recorder awaiting that and if that is okay patient can then go home. REVIEW OF SYSTEMS No symptoms of seizure-like activity or petite mal like activity since admit. He does get these episodes frequently he says. No chest pain or shortness of breath no nausea vomiting no palpitations noabdominal pain no dizziness DATA Vitals: 06/05/19 2110 06/05/19 2225 06/05/19 2240 06/06/19 0200 BP: 119/89 127/83 118/76 BP Location: Right arm Pulse: 71 71 72 70 Resp: 16 18 21 17 Temp: 36.8 ??C (98.3 ??F) TempSrc: Oral SpO2: 99% 94% 98% 97% Weight: 101.8 kg (224 lb 6.9 oz) Height: No intake or output data in the 24 hours ending 06/06/19 0605 CURRENT LAB RESULTS Recent Results (from the past 12 hour(s)) Troponin T, 3 Hour 5th Gen Collection Time: 06/05/19 6:19 PM Result Value Ref Range Troponin T, 3 Hr 5th Gen <6 6 - 22 ng/L POCT glucose Collection Time: 06/06/19 1:18 AM Result Value Ref Range Glucose, POC 134 70 - 199 mg/dL LAB TREND CBC: Lab Results Component Value Date WBC 6.6 06/05/2019 HGB 15.6 06/05/2019 HCT 49.9 06/05/2019 BMP: Lab Results Component Value Date SODIUM 133 (L) 06/05/2019 POTASSIUM 4.1 06/05/2019 CHLORIDE 100 06/05/2019 CREATININE 0.89 06/05/2019 CALCIUM 9.4 06/05/2019 No results found for: BNP Lab Results Component Value Date ALKPHOS 76 06/05/2019 No results found for: MAGNESIUM Lab Results Component Value Date AST 31 06/05/2019 Lab Results Component Value Date ALT 15 06/05/2019 No results found for: PHOS RADIOLOGY PROCEDURES MEDICATIONS FOR CURRENT ENCOUNTER Scheduled Meds: aspirin, 81 mg, oral, Daily citalopram, 40 mg, oral, QAM cyclobenzaprine, 10 mg, oral, BID dicyclomine, 10 mg, oral, TID divalproex ER, 1,000 mg, oral, BID enalapril, 5 mg, oral, Daily enoxaparin, 40 mg, subcutaneous, Daily-2100 fluticasone propion-salmeterol, 1 puff, inhalation, BID (RT) insulin lispro, 1-3 Units, subcutaneous, Nightly insulin lispro, 1-5 Units, subcutaneous, TID with meals levothyroxine, 50 mcg, oral, Daily - 0600 montelukast, 10 mg, oral, Daily nortriptyline, 75 mg, oral, BID pantoprazole DR, 40 mg, oral, Daily topiramate, 200 mg, oral, BID Continuous Infusions: PRN Meds:. ??? acetaminophen, 650 mg ??? dextrose, 15 g OR dextrose, 250 mL ??? glucagon, 1 mg ??? influenza quadrivalent [id number], 0.5 mL ??? ipratropium-albuterol, 3 mL ??? LORazepam, 2 mg ??? meclizine, 25 mg ??? ondansetron, 4 mg EXAM Vitals: 06/06/19 0200 BP: 118/76 Pulse: 70 Resp: 17 Temp: 36.8 ??C (98.3 ??F) SpO2: 97% General appearance: appears stated age, cooperative and no distress Head: Normocephalic, without obvious abnormality, atraumatic Eyes: conjunctivae/corneas clear. PERRL Lungs: clear to auscultation bilaterally Heart: S1, S2 normal Abdomen: soft, non-tender; bowel sounds normal; no masses, no organomegaly Extremities: extremities normal, warm and well-perfused Neurologic: Alert and oriented x4, non-focal ASSESSMENT AND PLAN All Diagnosis Present on Admission Unless Otherwise Stated: 1. Recurring non epileptiform seizures. 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 Seen by neuro. Plans to follow-up with his neurologist in [place] continue medications. Cardiology line to interrogate his loop recorder to see if there were any arrhythmias during the time ofthe episode. Currently on Depakote Keppra Topamax 2. Diabetes mellitus continue insulin monitor fingerstick blood sugar 3. Essential hypertension continue Avapro monitor blood pressure 4. History of asthma moderate persistent on Advair breathing treatments as needed 5. Hypothyroidism continue Synthroid 6. Depression and anxiety continue meds monitor 7. GERD continue Protonix 8. DVT prophylaxis Lovenox Medical Decision Making Complexity: Moderate Consulting physicians: Treatment Team: Consulting Physician: Brett Mcgill II, MD; Consulting Physician: Asim Carlos Jr., MD Disposition: Pending loop recorder interrogation by Cardiology Code status: Full Code Voice recognition software [employer]age[employer] People Direct was used dictate and transcribe this document. Spark Plug Tester variances may occur. Despite proofreading, typographical errors may occur. Sergey Villa MD. HOSPITALIST 06/06/2019 6:05 AM ACE COMBINATION ANALYST documented in this encounter H&P Notes * Nagi LoyaamDO - 06/05/2019 9:52 PM CST History and Physical Date of Service: 06/06/2019 Primary Care Physician: Sergey Wilson MD [phone] SUBJECTIVE: Patient is a 54 y.o. 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 Presents to the ED with a chief complaint of seizure. HPI: Patient states that he was in the lobby of the hospital sitting in a chair near registration, when all of a sudden everything went blank and he heard ringing in his ears. He states that it lasted 5 minutes and he was taken to the ED. He had another episode in the ED, that appeared to be an absence seizure. While talking with the patient, he all of a sudden began to stare blankly, slumped over, and his arms went limp. This lasted ~2 minutes before he started to wake up. He states he does not remember anything that happened, he just c/o ringing in his ears. His vital signs remained stable during the episode. He denies missing any medications. He states that these seizures are happening more frequently lately. Per chart review, patient last saw his Neurologist (Dr Jose) in September 2018. At that time, he reported multiple spells w/ prolonged unresponsiveness that had no EEG correlate and was consistent w/ non-epileptic events. During the evaluation of his new spells, he was found to have EKG changes and established w/ a physical therapy teacher. He had a pacemaker placed thereafter. 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 He has been advised to go to counseling and engage in talk therapy to treat these non- epileptic events numerous times. Past Medical History: Diagnosis Date ??? Anxiety [...] Placement - (Added by TW Conv) ??? [place] CRANIOT W BONE FLAP FOR AMYGDALOHIPPOCAMPECTOMY Craniotomy For Amygdalohippocampectomy - (Added by TW Conv) Medications Prior to Admission Medication Sig Dispense Refill Last Dose ??? albuterol (PROVENTIL,VENTOLIN) 1.25 mg/3 mL nebulizer solution Take 1.25 mg by nebulization every 6 (six) hours as needed for wheezing or shortness of breath 06/05/2019 at Unknown time ??? traMADol (ULTRAM) 50 mg tablet Take 50 mg by mouth every 6 (six) hours as needed for pain 06/05/2019 at Unknown time ??? albuterol HFA (PROVENTIL HFA,VENTOLIN HFA,PROAIR HFA) 90 mcg/actuation inhaler Inhale 2 puffs every 4 (four) hours as needed for wheezing or shortness of breath 06/05/2019 at Unknown time ??? aspirin 81 mg chewable tablet Take 81 mg by mouth daily 06/05/2019 at Unknown time ??? citalopram (CeleXA) 40 mg tablet Take 40 mg by mouth every morning 06/05/2019 at Unknown time ??? cyclobenzaprine (FLEXERIL) 10 mg tablet Take 10 mg by mouth 2 (two) times a day 06/05/2019 at Unknown time ??? dicyclomine (BENTYL) 10 mg capsule Take 10 mg by mouth 3 (three) times a day 06/05/2019 at Unknown time ??? divalproex ER (DEPAKOTE ER) 500 mg 24 hr tablet Take 1,000 mg by mouth 2 (two) times a day 06/05/2019 at Unknown time ??? empagliflozin (JARDIANCE) 25 mg tablet Take 25 mg by mouth daily 06/05/2019 at Unknown time ??? enalapril (VASOTEC) 5 mg tablet Take 5 mg by mouth daily 06/05/2019 at Unknown time ??? ergocalciferol (VITAMIN D) 50,000 unit capsule Take 50,000 Units by mouth once a week Sundays06/05/2019 at Unknown time ??? fluticasone propion-salmeterol (ADVAIR DISKUS) 250-50 mcg/dose diskus inhaler Inhale 1 puff 2 (two) times a day Rinse mouth with water after use. Do not swallow. 06/05/2019 at Unknown time ??? fluticasone propionate (FLONASE) 50 mcg/actuation nasal spray Administer 2 sprays into each nostril every morning 06/05/2019 at Unknown time ??? icosapent ethyl (VASCEPA) 1 gram capsule Take 2 g by mouth 2 (two) times a day 06/05/2019 at Unknown time ??? levothyroxine (SYNTHROID) 50 mcg tablet Take 50 mcg by mouth early childhood associate before breakfast 06/05/2019 at Unknown time ??? meclizine (ANTIVERT) 25 mg tablet Take 25 mg by mouth 3 (three) times a day as needed for dizziness 06/05/2019 at Unknown time ??? meloxicam (MOBIC) 7.5 mg tablet Take 7.5 mg by mouth 2 (two) times a day as needed for pain 06/05/2019 at Unknown time ??? montelukast (SINGULAIR) 10 mg tablet Take 10 mg by mouth daily 06/06/2019 at Unknown time ??? nortriptyline (PAMELOR) 75 mg capsule Take 75 mg by mouth 2 (two) times a day 06/06/2019 at Unknown time ??? omeprazole (PriLOSEC) 20 mg capsule Take 20 mg by mouth daily before breakfast 06/06/2019 at Unknown time ??? [employer] ULTRA BLUE TEST STRIP strip USE TO TEST QD 0 06/06/2019 at Unknown time ??? aVinci MediaTOUCH ULTRA2 kit USE TO TEST QD 0 06/06/2019 at Unknown time ??? pioglitazone (ACTOS) 30 mg tablet Take 30 mg by mouth daily 06/06/2019 at Unknown time ??? topiramate (TOPAMAX) 200 mg tablet Take 200 mg by mouth 2 (two) times a day 06/06/2019 at Unknown time Allergies Allergen Reactions ??? Glimepiride Unknown Social History Tobacco Use ??? Smoking status: Former Smoker ??? Smokeless tobacco: Never Used Substance Use Topics ??? Alcohol use: No Family History Problem Relation Age of Onset ??? Brain cancer Brother Brain tumor - (Added by TW Conv) Review of Systems: Review of Systems Constitutional: Negative for fever. HENT: Positive for tinnitus. Respiratory: Negative for shortness of breath. Cardiovascular: Negative for chest pain. Gastrointestinal: Negative for abdominal pain. Genitourinary: Negative for dysuria. Musculoskeletal: Negative for back pain. Skin: Negative for wound. Neurological: Positive for seizures. OBJECTIVE: Vitals: Arrival Vitals Temp -- Pulse 06/05/19 1750 73 Resp 06/05/19 1750 23 BP 06/05/19 1750 114/77 SpO2 06/05/19 1507 98 % Temp src -- Heart Rate Source -- Patient Position -- BP Location -- FiO2 (%) -- Most Recent : Vitals: 06/05/19 2110 06/05/19 2225 06/05/19 2240 06/06/19 0200 BP: 119/89 127/83 118/76 BP Location: Right arm Pulse: 71 71 72 70 Resp: 16 18 21 17 Temp: 36.8 ??C (98.3 ??F) TempSrc: Oral SpO2: 99% 94% 98% 97% Weight: 101.8 kg (224 lb 6.9 oz) Height: No intake/output data recorded. No intake/output data recorded. Physical Exam: Physical Exam HENT: Head: Normocephalic and atraumatic. Nose: Nose normal. Eyes: Extraocular Movements: Extraocular movements intact. Cardiovascular: Rate and Rhythm: Normal rate and regular rhythm. Pulmonary: Effort: Pulmonary effort is normal. Breath sounds: Normal breath sounds. Abdominal: General: There is no distension. Tenderness: There is no tenderness. Musculoskeletal: Right lower leg: No edema. Left lower leg: No edema. Skin: General: Skin is warm and dry. Neurological: Mental Status: He is alert. Mental status is at baseline. Psychiatric: Mood and Affect: Mood normal. Lab/Radiology/Diagnostic Review: Recent Results (from the past 24 hour(s)) CBC with auto differential Collection Time: 06/05/19 3:13 PM Result Value Ref Range WBC 6.6 3.8 - 9.9 K/cumm Hgb 15.6 13.0 - 17.5 g/dL Hct 49.9 38.9 - 50.3 % Plt 150 150 - 400 K/cumm MPV 10.6 9.1 - 12.3 fL RBC 5.38 4.30 - 5.80 M/cumm MCV 92.8 81.3 - 96.4 fL MCH 29.0 27.1 - 33.3 pg MCHC 31.3 (L) 32.3 - 35.7 g/dL RDW CV 14.2 11.1 - 14.9 % RDW SD 48.7 (H) 35.7 - 48.1 fL NRBC abs 0.00 0.00 - 0.01 K/cumm Comprehensive metabolic panel Collection Time: 06/05/19 3:13 PM Result Value Ref Range Sodium 133 (L) 135 - 145 mmol/L Potassium, pl 4.1 3.3 - 4.9 mmol/L Chloride 100 97 - 110 mmol/L CO2 22 22 - 32 mmol/L Anion gap 11 2 - 15 mmol/L BUN 13 8 - 25 mg/dL Creatinine 0.89 0.80 - 1.30 mg/dL Glucose 134 70 - 199 mg/dL Calcium 9.4 8.5 - 10.3 mg/dL Bilirubin, total 0.3 0.1 - 1.2 mg/dL Protein, pl 7.5 6.5 - 8.5 g/dL Albumin 4.3 3.5 - 5.0 g/dL Alk phos 76 40 - 130 Units/L ALT 15 7 - 55 Units/L AST 31 10 - 50 Units/L Pro B-type natriuretic peptide Collection Time: 06/05/19 3:13 PM Result Value Ref Range NT-proBNP 25 <=300 pg/mL Troponin T 5th Gen series (Baseline, 3hr, 6hr) Collection Time: 06/05/19 3:13 PM Result Value Ref Range Troponin T, Baseline 5th Gen 6 6 - 22 ng/L Valproic acid level, total Collection Time: 06/05/19 3:13 PM Result Value Ref Range Valproic Acid 67.1 50.0 - 100.0 mcg/mL Differential, auto Collection Time: 06/05/19 3:13 PM Result Value Ref Range Neutrophil abs 3.0 1.7 - 6.5 K/cumm Imm gran abs 0.0 0.0 - 0.1 K/cumm Lymphocyte abs 2.9 0.8 - 3.3 K/cumm Monocyte abs 0.5 0.2 - 0.8 K/cumm Eosinophil abs 0.1 0.0 - 0.5 K/cumm Basophil abs 0.0 0.0 - 0.1 K/cumm Neutrophil pct 45.4 % Imm gran pct 0.6 % Lymphocyte pct 43.8 % Monocyte pct 7.6 % Eosinophil pct 2.0 % Basophil pct 0.6 % Prolactin Collection Time: 06/05/19 3:13 PM Result Value Ref Range Prolactin 10.1 4.0 - 15.2 ng/mL eGFR Collection Time: 06/05/19 3:13 PM Result Value Ref Range GFR 96 mL/min/1.73 m2 Troponin T, 3 Hour 5th Gen Collection Time: 06/05/19 6:19 PM Result Value Ref Range Troponin T, 3 Hr 5th Gen <6 6 - 22 ng/L POCT glucose Collection Time: 06/06/19 1:18 AM Result Value Ref Range Glucose, POC 134 70 - 199 mg/dL No results found. ASSESSMENT/PLAN: Active Problems: Recurrent seizures (CMS/HCC) Pacemaker Diabetes (CMS/HCC) Hypertension Asthma Hypothyroidism Anxiety and depression GERD (gastroesophageal reflux disease) S/P lobectomy of brain 1. 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 Head CT pending. Given 1g Keppra IV. Neuro consulted. Ativan prn . Fall and seizure precautions. MRI ordered for AM. Continue depakote 1000 mg BID and topamax 200 mg BID. 2. Diabetes - Sliding scale, poc glucose checks 3. S/p pacemaker - Cardiology consulted from the ED. Tele monitoring. No acute EKG changes. 4. Hypertension - Continue enalapril 5 mg daily 5. Asthma - Continue advair BID and duoneb q4h prn 6. Hypothyroidism - Continue synthroid 50 mcg daily 7. Anxiety and depression - Continue celexa 40 mg daily and nortriptyline 75 mg BID 8. GERD - Continue protonix 40 mg daily Full Code DVT Proph: Lovenox ESTIMATED LENGTH OF STAY: >2 midnights Jeannette Loya DO 06/06/2019 6:05 AM ACE COMBINATION ANALYST ACE COMBINATION ANALYST documented in this encounter Consult Notes * Brett Mcgill II, MD - 06/06/2019 1:09 PM CST [facility] CONSULTATION 06/06/2019 OV: Consultation at the request of Dr. Villa for an opinion regarding seizures. I have personally taken a history, examined the patient and determined the assessment and plan as outlined below. Chief Complaint. Chief Complaint Patient presents with ??? Seizures HPI. Patient is a 54 y.o. male patient of Dr. Wilson primary care, Dr. Carlos physical therapy teacher, DR. Rd Jose epileptologist and Dr. Tucker general neurologist This is a patient with a known history of partial complex seizures such as post right temporal lobectomy as well as nonepileptic seizures under the care of Dr. Clifton Jose epileptologist at [facility] and Dr. Tucker general neurologist in [facility]. This patient was last seen in September of [address] Jose at [facility]. I have reviewed that last neurology note. This patient has been reported to be seizure-free but he continues to have frequent nonepileptic events. He has been counseled to see a mental health specialist with expertise in cognitive behavioral therapy. He has been maintained on Depakote as well as topiramate. He is under the care of Dr. Carlos of Cardiology and has a pacemaker. He continues to have frequent spells at least 2-3 spells per week that is stereoypical. His spells are characterized by a hearing aid a roaring sound or ringing sound following which she would have difficulty thinking and he will lose consciousness. This is typical of these episodes. He last saw his general neurologist last week and they really has been no change his anticonvulsant medication. He was admitted because on the day of admission he was in the lobby of the hospital sitting in a chair near registration when he had 1 of his typical spells. He he was reported as staring blankly and slumped over and his arms went limp and this lasted approximately 2 minutes. He reported having no recollection of the event and complains of ringing of the ears. Hisvital signs were stable throughout the episode. He has been compliant with taking his anticonvulsant medications. He was brought to the emergency room where prolactin level was performed which was less than 10. His valproic acid level is therapeutic at 67. CT scan of the brain the films I personally reviewed showed no acute changes. This continues to showed the postsurgical changes from a right temporal craniotomy and encephalomalacia of the right temporal lobe as well as cerebral atrophy. CBC showed a white count of 6.4 hemoglobin 15.5 hematocrit 50.6 platelet count was 166 comprehensive meta bolic panel was remarkable only for a sodium of 134. He is seen today at the bedside his pacemakers being interrogated. There are no other complaints. He does wants to get to the bottom of the spells that he continues to have. He was given levetiracetam at the emergency room. Past Medical History: Diagnosis Date ??? Anxiety disorder Anxiety - (Added by TW Conv) ??? Asthma ??? Diabetes ([facility]) 06/05/2019 ??? Hypertension ??? Personal history of [...] Placement - (Added by TW Conv) ??? [place] CRANIOT W BONE FLAP FOR AMYGDALOHIPPOCAMPECTOMY Craniotomy For Amygdalohippocampectomy - (Added by TW Conv) HOME MEDICATIONS : albuterol (PROVENTIL,VENTOLIN) 1.25 mg/3 mL nebulizer solution traMADol (ULTRAM) 50 mg tablet albuterol HFA (PROVENTIL HFA,VENTOLIN HFA,PROAIR HFA) 90 mcg/actuation inhaler aspirin 81 mg chewable tablet citalopram (CeleXA) 40 mg tablet cyclobenzaprine (FLEXERIL) 10 mg tablet dicyclomine (BENTYL) 10 mg capsule divalproex ER (DEPAKOTE ER) 500 mg 24 hr tablet empagliflozin (JARDIANCE) 25 mg tablet enalapril (VASOTEC) 5 mg tablet ergocalciferol (VITAMIN D) 50,000 unit capsule fluticasone propion-salmeterol (ADVAIR DISKUS) 250-50 mcg/dose diskus inhaler fluticasone propionate (FLONASE) 50 mcg/actuation nasal spray icosapent ethyl (VASCEPA) 1 gram capsule levothyroxine (SYNTHROID) 50 mcg tablet meclizine (ANTIVERT) 25 mg tablet meloxicam (MOBIC) 7.5 mg tablet montelukast (SINGULAIR) 10 mg tablet nortriptyline (PAMELOR) 75 mg capsule omeprazole (PriLOSEC) 20 mg capsule ONETOUCH ULTRA BLUE TEST STRIP strip ONETOUCH ULTRA2 kit pioglitazone (ACTOS) 30 mg tablet topiramate (TOPAMAX) 200 mg tablet Allergies Allergen Reactions ??? Glimepiride Unknown Social History Tobacco Use ??? Smoking status: Former Smoker ??? Smokeless tobacco: Never Used Substance Use Topics ??? Alcohol use: No Family History Problem Relation Age of Onset ??? Brain cancer Brother Brain tumor - (Added by TW Conv) Review of Systems Constitution: Negative for chills, decreased appetite, diaphoresis, fever, malaise/fatigue, night sweats, weight gain and weight loss. HENT: Negative for congestion, hearing loss, hoarse voice, nosebleeds, sore throat and tinnitus. Eyes: Negative for blurred vision, double vision and visual halos. Cardiovascular: Negative for chest pain, claudication, dyspnea on exertion, irregular heartbeat, near-syncope, palpitations and syncope. Respiratory: Negative for cough, shortness of breath, sleep disturbances due to breathing and snoring. Endocrine: Negative for cold intolerance, heat intolerance, polydipsia, polyphagia and polyuria. Hematologic/Lymphatic: Negative for adenopathy and bleeding problem. Does not bruise/bleed easily. Skin: Negative for rash. Musculoskeletal: Negative for back pain, falls, joint pain, joint swelling, muscle cramps, muscle weakness, myalgias, neck pain and stiffness. Gastrointestinal: Negative for abdominal pain, bowel incontinence, constipation, diarrhea, dysphagia, jaundice, nausea and vomiting. Genitourinary: Negative for bladder incontinence, decreased libido, dysuria, flank pain, frequency,hematuria, hesitancy and incomplete emptying. Neurological: Positive for seizures. Negative for aphonia, brief paralysis, difficulty with concentration, disturbances in coordination, excessive daytime sleepiness, dizziness, focal weakness, headaches, light-headedness, loss of balance, numbness, paresthesias, sensory change, tremors, vertigo and weakness. Psychiatric/Behavioral: Negative for altered mental status, depression, hallucinations, memory loss, substance abuse and suicidal ideas. The patient does not have insomnia and is not nervous/anxious. Allergic/Immunologic: Negative for environmental allergies and HIV exposure. Physical Exam Vitals signs reviewed. Constitutional: Appearance: Normal appearance. He is well-developed. HENT: Head: Normocephalic and atraumatic. Eyes: Extraocular Movements: EOM normal. Conjunctiva/sclera: Conjunctivae normal. Pupils: Pupils are equal, round, and reactive to light. Neck: Musculoskeletal: Normal range of motion. Cardiovascular: Rate and Rhythm: Normal rate and regular rhythm. Heart sounds: Normal heart sounds. Pulmonary: Breath sounds: Normal breath sounds. Abdominal: Palpations: Abdomen is soft. Musculoskeletal: Normal range of motion. Skin: General: Skin is warm. Neurological: Mental Status: He is alert and oriented to person, place, and time. Coordination: Vvphhb-Kwpl-Oulxxy Test normal. Deep Tendon Reflexes: Strength normal. Reflex Scores: Tricep reflexes are 1+ on the right side and 1+ on the left side. Bicep reflexes are 1+ on the right side and 1+ on the left side. Brachioradialis reflexes are 1+ on the right side and 1+ on the left side. Patellar reflexes are 1+ on the right side and 1+ on the left side. Achilles reflexes are 1+ on the right side and 1+ on the left side. Psychiatric: Speech: Speech normal. Neurologic Exam Mental Status Oriented to person, place, and time. Speech: speech is normal Level of consciousness: alert Knowledge: good and consistent with education. Normal comprehension. Cranial Nerves CN II Visual argueta full to confrontation. CN III, IV, Pupils are equal, round, and reactive to light. Extraocular motions are normal. Right pupil: Shape: regular. Reactivity: brisk. Left pupil: Shape: regular. Reactivity: brisk. CN III: no CN III palsy CN : no CN palsy Nystagmus: none Diplopia: none Ophthalmoparesis: none CN V Facial sensation intact. CN VII Facial expression full, symmetric. CN VIII CN VIII normal. Hearing: intact CN IX, X CN IX normal. CN X normal. Palate: asymmetric CN XI CN XI normal. Right sternocleidomastoid strength: normal Left sternocleidomastoid strength: normal CN XII CN XII normal. Tongue: not atrophic Motor Exam Muscle bulk: normal Overall muscle tone: normal Right arm pronator drift: absent Left arm pronator drift: absent Right leg tone: normal Left leg tone: normal Strength Strength 5/5 throughout. Sensory Exam Light touch normal. Gait, Coordination, and Reflexes Coordination Finger to nose coordination: normal Tremor Resting tremor: absent Intention tremor: absent Action tremor: absent Reflexes Right brachioradialis: 1+ Left brachioradialis: 1+ Right biceps: 1+ Left biceps: 1+ Right triceps: 1+ Left triceps: 1+ Right patellar: 1+ Left patellar: 1+ Right achilles: 1+ Left achilles: 1+ Right sewer repairer: 1+ Left sewer repairer: 1+ Right plantar: normal Left plantar: normal Right ankle clonus: absent Left ankle clonus: absent Impression and Recommendations. 1. Nonepileptic events. 2. History of temporal lobe epilepsy status post right temporal lobectomy Both conditions are chronic conditions. I would continue current doses of topiramate and Depakote. At levetiracetam will be discontinued. Cardiology evaluation is in progress at I do not think there is anything am going to add from the neurology standpoint he needs to go back and see his epileptologist at [facility]. MRI of the brain will be canceled as this will not change further management. Thank you for allowing me to participate in patient's care will be signing off thecase. Brett Mcgill MD ACE COMBINATION ANALYST * Hue Armenta MD - 06/06/2019 10:01 AM CST Cardiology Consult - [facility] - Hue Armenta MD [facility] Name: [facility] Patient's Primary Care Physician: Sergey Wilson MD Referring Physician: No ref. provider found Age: 54 y.o. Race: White Sex: male Chief Complaint/History of Present Illness Patient was admitted to [facility] on 06/06/2019 with Chief Complaint Patient presents with ??? Seizures 54-year-old male with a history of seizures asthma hypertension patient was found unresponsive Pt was in the main hospital lobby when ED staff was called. PT found staring at nothing and not verballyresponsive he was seen in the emergency room and had mentioned that these episodes consist of him going into a blank state where he can't hear anyone and ringing in his ears. He has apparently had the been evaluated by neurologist before in regards to his seizure disorders. He feels that the seizure event that has occurred this time and been somewhat different There is no issues of chest pain shortness of breath pounding palpitations 12 lead EKG demonstrateshim to be in sinus rhythm at a rate of 84 beats per minute with right bundle branch block and left posterior fascicular block. He has the [employer] loop recorder in place which should be interrogated to determine that there isany arrhythmias that have occurred in the process of him having his the loss of consciousness episode. Troponins were noted to be negative Arrival Vitals Temp 06/06/19 0200 36.8 ??C (98.3 ??F) Pulse 06/05/19 1750 73 Resp 06/05/19 1750 23 BP 06/05/19 1750 114/77 SpO2 06/05/19 1507 98 % Temp src 06/06/19 0200 Oral Heart Rate Source 06/06/19 0750 Monitor Patient Position 06/06/19 0750 Sitting BP Location 06/06/19 0200 Right arm FiO2 (%) -- Last documented LV Ejection fraction was 55%. Past Medical History: Diagnosis Date ??? Anxiety [...] Placement - (Added by TW Conv) ??? [place] CRANIOT W BONE FLAP FOR AMYGDALOHIPPOCAMPECTOMY Craniotomy For Amygdalohippocampectomy - (Added by TW Conv) Family History Problem Relation Age of Onset ??? Brain cancer Brother Brain tumor - (Added by TW Conv) Social History Socioeconomic History ??? Marital status: Single Spouse name: None ??? Number of children: None ??? Years of education: None ??? Highest education level: None Occupational History ??? None Social Needs ??? Financial resource strain: None ??? Food insecurity: Worry: None Inability: None ??? Transportation needs: Medical: None Non-medical: None Tobacco Use ??? Smoking status: Former Smoker ??? Smokeless tobacco: Never Used Substance and Sexual Activity ??? Alcohol use: No ??? Drug use: No ??? Sexual activity: None Lifestyle ??? Physical activity: Days per week: None Minutes per session: None ??? Stress: None Relationships ??? Social connections: Talks on phone: None Gets together: None Attends tenriism service: None Active member of club or organization: None Attends meetings of clubs or organizations: None Relationship status: None ??? Intimate partner violence: Fear of current or ex partner: None Emotionally abused: None Physically abused: None Forced sexual activity: None Other Topics Concern ??? None Social History Narrative ??? None Medications Prior to Admission Medication Sig Dispense Refill Last Dose ??? albuterol (PROVENTIL,VENTOLIN) 1.25 mg/3 mL nebulizer solution Take 1.25 mg by nebulization every 6 (six) hours as needed for wheezing or shortness of breath 06/05/2019 at Unknown time ??? traMADol (ULTRAM) 50 mg tablet Take 50 mg by mouth every 6 (six) hours as needed for pain 06/05/2019 at Unknown time ??? albuterol HFA (PROVENTIL HFA,VENTOLIN HFA,PROAIR HFA) 90 mcg/actuation inhaler Inhale 2 puffs every 4 (four) hours as needed for wheezing or shortness of breath 06/05/2019 at Unknown time ??? aspirin 81 mg chewable tablet Take 81 mg by mouth daily 06/05/2019 at Unknown time ??? citalopram (CeleXA) 40 mg tablet Take 40 mg by mouth every morning 06/05/2019 at Unknown time ??? cyclobenzaprine (FLEXERIL) 10 mg tablet Take 10 mg by mouth 2 (two) times a day 06/05/2019 at Unknown time ??? dicyclomine (BENTYL) 10 mg capsule Take 10 mg by mouth 3 (three) times a day 06/05/2019 at Unknown time ??? divalproex ER (DEPAKOTE ER) 500 mg 24 hr tablet Take 1,000 mg by mouth 2 (two) times a day 06/05/2019 at Unknown time ??? empagliflozin (JARDIANCE) 25 mg tablet Take 25 mg by mouth daily 06/05/2019 at Unknown time ??? enalapril (VASOTEC) 5 mg tablet Take 5 mg by mouth daily 06/05/2019 at Unknown time ??? ergocalciferol (VITAMIN D) 50,000 unit capsule Take 50,000 Units by mouth once a week Sundays06/05/2019 at Unknown time ??? fluticasone propion-salmeterol (ADVAIR DISKUS) 250-50 mcg/dose diskus inhaler Inhale 1 puff 2 (two) times a day Rinse mouth with water after use. Do not swallow. 06/05/2019 at Unknown time ??? fluticasone propionate (FLONASE) 50 mcg/actuation nasal spray Administer 2 sprays into each nostril every morning 06/05/2019 at Unknown time ??? icosapent ethyl (VASCEPA) 1 gram capsule Take 2 g by mouth 2 (two) times a day 06/05/2019 at Unknown time ??? levothyroxine (SYNTHROID) 50 mcg tablet Take 50 mcg by mouth early childhood associate before breakfast 06/05/2019 at Unknown time ??? meclizine (ANTIVERT) 25 mg tablet Take 25 mg by mouth 3 (three) times a day as needed for dizziness 06/05/2019 at Unknown time ??? meloxicam (MOBIC) 7.5 mg tablet Take 7.5 mg by mouth 2 (two) times a day as needed for pain 06/05/2019 at Unknown time ??? montelukast (SINGULAIR) 10 mg tablet Take 10 mg by mouth daily 06/06/2019 at Unknown time ??? nortriptyline (PAMELOR) 75 mg capsule Take 75 mg by mouth 2 (two) times a day 06/06/2019 at Unknown time ??? omeprazole (PriLOSEC) 20 mg capsule Take 20 mg by mouth daily before breakfast 06/06/2019 at Unknown time ??? ONETOUCH ULTRA BLUE TEST STRIP strip USE TO TEST QD 0 06/06/2019 at Unknown time ??? ONETOUCH ULTRA2 kit USE TO TEST QD 0 06/06/2019 at Unknown time ??? pioglitazone (ACTOS) 30 mg tablet Take 30 mg by mouth daily 06/06/2019 at Unknown time ??? topiramate (TOPAMAX) 200 mg tablet Take 200 mg by mouth 2 (two) times a day 06/06/2019 at Unknown time Allergies Allergen Reactions ??? Glimepiride Unknown MEDICATIONS FOR CURRENT ENCOUNTER: SCHEDULED MEDICATIONS: Scheduled Medications Medication Dose Route Frequency ??? aspirin chewable tablet 81 mg 81 mg oral Daily ??? citalopram (CeleXA) tablet 40 mg 40 mg oral QAM ??? cyclobenzaprine (FLEXERIL) tablet 10 mg 10 mg oral BID ??? dicyclomine (BENTYL) tablet 10 mg 10 mg oral TID ??? divalproex ER (DEPAKOTE ER) 24 hour tablet 1,000 mg 1,000 mg oral BID ??? enalapril (VASOTEC) tablet 5 mg 5 mg oral Daily ??? enoxaparin (LOVENOX) syringe 40 mg 40 mg subcutaneous Daily-2100 ??? fluticasone propion-salmeterol (ADVAIR DISKUS) 250-50 mcg/dose diskus inhaler 1 puff 1 puff inhalation BID (RT) ??? insulin lispro (HumaLOG) injection 1-3 Units 1-3 Units subcutaneous Nightly ??? insulin lispro (HumaLOG) injection 1-5 Units 1-5 Units subcutaneous TID with meals ??? levothyroxine (SYNTHROID) tablet 50 mcg 50 mcg oral Daily - 0600 ??? montelukast (SINGULAIR) tablet 10 mg 10 mg oral Daily ??? nortriptyline (PAMELOR) capsule 75 mg 75 mg oral BID ??? pantoprazole DR (PROTONIX) extended release tablet 40 mg 40 mg oral Daily ??? topiramate (TOPAMAX) tablet 200 mg 200 mg oral BID ?? CONTINUOUS MEDICATIONS: Continuous Medications Medication Dose Last Rate ?? PRN MEDICATIONS: PRN Medications Medication Dose Route Frequency Last Dose ??? acetaminophen (TYLENOL) tablet 650 mg 650 mg oral Q4H PRN ??? dextrose oral liquid liquid 15 g 15 g oral Q15 Min PRN Or ??? dextrose (D10W) 10% bolus 250 mL 250 mL intravenous Q15 Min PRN ??? glucagon injection 1 mg 1 mg intramuscular Q30 Min PRN ??? influenza quadrivalent [id number] (FLULAVAL,FLUARIX,FLUZONE) 60 mcg (15 mcg x 4)/0.5 mL vaccine (STANDARD age 6 months and up) 0.5 mL 0.5 mL intramuscular During hospitalization ??? ipratropium-albuterol (DUO-NEB) 0.5-2.5 mg/3 mL nebulizer solution 3 mL 3 mL nebulization Q4H PRN (RT) ??? LORazepam (ATIVAN) injection 2 mg 2 mg intravenous Q5 Min PRN ??? meclizine (ANTIVERT) tablet 25 mg 25 mg oral TID PRN ??? ondansetron (ZOFRAN) injection 4 mg 4 mg intravenous Q4H PRN ?? Review of Systems 11 point system review was obtained all pertinent positives and negatives have been listed in the HPI. Exam Vitals: 06/05/19 2240 06/06/19 0200 06/06/19 0626 06/06/19 0750 BP: 118/76 121/76 118/80 BP Location: Right arm Right arm Left arm Patient Position: Sitting Pulse: 72 70 72 74 Resp: 21 17 18 18 Temp: 36.8 ??C (98.3 ??F) 37 ??C (98.6 ??F) 36.9 ??C (98.4 ??F) TempSrc: Oral Oral Oral SpO2: 98% 97% 98% 97% Weight: 101.8 kg (224 lb 6.9 oz) Height: General: No acute distress Neuro: Alert and oriented x3, moves all extremities well HEENT: NCAT, EOMI Neck: No JVD, no bruits Chest: Diminished breath sounds bilaterally. No rales, rhonchi, or wheezes noted Cardiac: Regular S1, S2, Normal rate. No murmurs, rubs, or gallops noted. Abdomen: Soft, non-tender. NABS Extremities: No LE edema. Palpable DP and PT pulse bilaterally Neuro: No focal deficits Psych: appropriate mood and normal affect Data Recent Labs Lab Units 06/06/19 0739 06/06/19 0617 06/06/19 0118 06/05/19 1513 SODIUM mmol/L 134* -- -- 133* POTASSIUM PLASMA mmol/L 4.3 -- -- 4.1 CHLORIDE mmol/L 98 -- -- 100 CO2 mmol/L 23 -- -- 22 ANIONGAP mmol/L 13 -- -- 11 GLUCOSE mg/dL 126 -- -- 134 POC GLUCOSE MONITOR mg/dL -- 124 134 -- BUN SERUM mg/dL 12 -- -- 13 CREATININE mg/dL 0.94 -- -- 0.89 CALCIUM mg/dL 9.2 -- -- 9.4 ALBUMIN g/dL 4.2 -- -- 4.3 ALK PHOS Units/L 76 -- -- 76 ALT Units/L 18 -- -- 15 AST Units/L 28 -- -- 31 BILIRUBIN TOTAL mg/dL 0.3 -- -- 0.3 Recent Labs Lab Units 06/06/19 0739 06/05/19 1513 [id number] mL/min/1.73 m2 91 -- 96 GLUCOSE mg/dL 126 -- 134 POC GLUCOSE MONITOR -- < > -- CALCIUM mg/dL 9.2 -- 9.4 ALBUMIN g/dL 4.2 -- 4.3 < > = values in this interval not displayed. Recent Labs Lab Units 06/06/19 0739 06/05/19 1513 WBC K/cumm 6.4 6.6 HEMOGLOBIN g/dL 15.5 15.6 HEMATOCRIT % 50.6* 49.9 PLATELETS K/cumm 166 150 Results for orders placed during the hospital encounter of 06/05/19 ECG 12 lead Narrative Vent Rate: 84 bpm RR Interval: 714 msec [place] Interval: 208 msec QRS Duration: 129 msec QT Interval: 403 msec QTC Interval: 443 msec P-R-T Villalba: 28 - 143 - 13 degrees SINUS RHYTHM RIGHT BUNDLE BRANCH BLOCK LEFT POSTERIOR FASCICULAR BLOCK ABNORMAL ECG Compared to previous ECG the left posterior fascicular block is new Electronically Signed By: Viet Luque MD, [facility] Results for orders placed or performed during the hospital encounter of 05/23/18 ECG 12 lead Result Value Ref Range Patient age 53 years Interpretation Text SINUS RHYTHMLEFT ANTERIOR FASCICULAR BLOCKPoor R-wave progressionABNORMAL ECGPREVIOUS TRACIN09/23/2016 17.06No significant change compared to prior ECG Ventricular Rate EKG/Min 81 /min P Wave Duration 122 ms QRS-Interval (MSEC) 122 ms AZ-Interval (MSEC) 194 ms QT Interval 402 ms QTc 438 ms QTC Interval ms P Villalba 46 deg QRS Villalba -63 deg T Villalba 59 deg Carotid ultrasound from 2017 RIGHT: The right common carotid artery (CCA) peak systolic velocity (PSV) is 86 cm/s. The right internal carotid artery (ICA) PSV is 65 cm/s. The right ICA end-diastolic velocity (EDV) is 28 cm/s. The right ICA/CCA PSV ratio is 0.8. Grayscale and color Doppler images yield an estimate of <50% diameter reduction from plaque in the ICA. The external carotid artery (ECA) PSV is 91 cm/s. There is antegrade flow in theright vertebral artery. LEFT: The left CCA PSV is 113 cm/s, The left ICA PSV is 96 cm/s. The left ICA EDV is 35 cm/s. The left ICA/CCA PSV ratio is 0.8. Grayscale and color Doppler images yield an estimate of <50% diameter reduction from plaque in the ICA. The ECA PSV is 106 cm/s. There is antegrade flow in the left vertebral artery. IMPRESSION: 1. <50% stenosis in the right internal carotid artery. 2. <50% stenosis in the left internal carotid artery. Echo of September of 2018 Conclusions: 1. Normal left ventricular systolic function. Normal left ventricular size. Normal left ventricularwall thickness. There is E to A wave reversal consistent with impaired LV relaxation. Normal E/E` 6.0. Left ventricular ejection fraction is estimated at 65 %. 2. No significant valvular abnormalities. 3. Normal left ventricular function with no significant valvular abnormalities, normal echo. NUCLEAR STRESS TEST SEPTEMBER OF 2018 1. Normal myocardial perfusion imaging after vasodilator stress with Regadenoson. 2. Normal left ventricular systolic function with a calculated ejection fraction of 55 (QGS)%. 3. There is a small fixed defect involving the inferior wall most consistent with diaphragmatic attenuation. Assessment and Plan Pt is a 54 y.o. male who presents to the hospital with Chief Complaint Patient presents with ??? Seizures At present my recommendations are as follows: Active Problems: Recurrent seizures (CMS/HCC) Pacemaker Diabetes (CMS/HCC) Hypertension Asthma Hypothyroidism Anxiety and depression GERD (gastroesophageal reflux disease) S/P lobectomy of brain 1. Seizure disorder-patient has a history of seizure disorder he thinks it may be a different type of seizure would recommend Neurology evaluation and considering the EEG for additional information 2. Arrhythmia-the seizure disorder is most likely the underlying cause of his presentation however he has a loop recorder from [employer] this can be interrogated to determine if there is any arrhythmias that occurred at the time frame that triggered his loss of consciousness. 3. Hypertension-continue blood pressure medications 4. Thyroid disorder- continue thyroid supplementation Thank you for allowing us to participate in the care of this patient. We will continue to follow. If you have any questions, please don't hesitate to call. Hue Armenta MD, [facility] Waste[employer] Treatment Operator [facility] ([facility]) [phone] 06/06/2019 10:02 AM CC: [facility] [phone] ACE COMBINATION ANALYST documented in this encounter Nursing Notes * Mecca Doyle RN - 06/07/2019 10:10 AM CST Spoke with Dr. Villa to make him aware & he said to keep patient for a few more hours and discharge if he doesn't have any more episodes. ACE COMBINATION ANALYST * Mecca Doyle RN - 06/07/2019 10:05 AM CST Patient had 1 minute of staring straight ahead. Patient wound not answer questions but when I told Gi PCT we needed to get him back in bed from chair. Patient immediately said, No. I'm fine now. ACE COMBINATION ANALYST documented in this encounter ED Notes * Joshua Benjamin, - 06/05/2019 3:31 PM CST Chief Complaint Patient presents with ??? Seizures 2:44 PM 06/05/2019 Pt is a 54 y/o male with Hx of TBI, Seizures, asthma, HTN, and pacemaker presenting to the ED with friend s/p being found in [facility] unresponsive. Pt now in the ED is alert an oriented x4 and reports 5 episodes in the past 2 months of the same. Pt states these episodes consist of him going into a blank state where he can't hear anyone and ringing in his ears. Pt states this is the same for today's episode. Pt notes he is here at [facility] for labs per Dr. Carlos, cardiology. Pt denies any CP, SOB, KELLY, dizziness, weakness, fever, chills, N/V, incontinency, and all other medical complaints at this time. He denies any bowel or bladder incontinence, denies any tongue biting. 1000mg depakote bid SHx former smoker of cigarettes, pt's friend drive's for him due to Hx of Sz's PMD: Sergey Wilson MD 03/22/19 Pt was evaluated at [facility] for similar. This note states pt presented for a typical syncope episode which had been becoming more frequent preceding this visit. He takes AEDs which he says Abigail and Caitlin (both of his neurologists) have been titrating down due to negative EEGs this year. He does not believe he has seizures anymore. He has been followed closely by all of these physiciansfor these symptoms, no cause for the syncope has been identified as yet. Pt had NAD CXR, grossly normal labwork, and no change in ekg from previous during this visit. Pt's physical therapy teacher was consulted and agreed that if pt fel comfortable he could be d/c'd. Pt was d/c'd home in stable condition. Pt has other visits 12/30 to [facility] and 06/01 to [facility] for similar Sx. Past Medical History: Diagnosis Date ??? Anxiety [...] Placement - (Added by TW Conv) ??? [place] CRANIOT W BONE FLAP FOR AMYGDALOHIPPOCAMPECTOMY Craniotomy [...] tablet ergocalciferol (VITAMIN D) 50,000 unit capsule fluticasone propion-salmeterol (ADVAIR DISKUS) 250-50 mcg/dose diskus inhaler fluticasone propionate (FLONASE) 50 mcg/actuation nasal spray icosapent ethyl (VASCEPA) 1 gram capsule levothyroxine (SYNTHROID) 50 mcg tablet meclizine (ANTIVERT) 25 mg tablet meloxicam (MOBIC) 7.5 mg tablet montelukast (SINGULAIR) 10 mg tablet nortriptyline (PAMELOR) 75 mg capsule omeprazole (PriLOSEC) 20 mg capsule ONETOUCH ULTRA BLUE TEST STRIP strip ONETOUCH ULTRA2 kit pioglitazone (ACTOS) 30 mg tablet topiramate (TOPAMAX) 200 mg tablet traMADol (ULTRAM) 50 mg tablet Allergies Allergen Reactions ??? Glimepiride Unknown Review of Systems All other systems reviewed and are negative. Physical Exam Vitals signs and nursing note reviewed. Constitutional: General: He is not in acute distress. Appearance: He is well-developed. HENT: Head: Normocephalic and atraumatic. Comments: Baseline facial asymmetry Right Ear: External ear normal. Left Ear: External ear normal. Ears: Comments: R hearing aid Nose: Nose normal. Mouth/Throat: Mouth: Mucous membranes are moist. Eyes: Extraocular Movements: Extraocular movements intact. Pupils: Pupils are equal, round, and reactive to light. Neck: Musculoskeletal: Neck supple. No spinous process tenderness. Comments: No step-offs Cardiovascular: Rate and Rhythm: Normal rate and regular rhythm. Pulmonary: Effort: Pulmonary effort is normal. No respiratory distress. Breath sounds: Normal breath sounds. No wheezing or rales. Chest: Chest wall: No tenderness. Abdominal: General: There is no distension. Palpations: Abdomen is soft. Tenderness: There is no tenderness. There is no right CVA tenderness, left CVA tenderness, guardingor rebound. Musculoskeletal: Normal range of motion. Cervical back: He exhibits no bony tenderness. Thoracic back: He exhibits no bony tenderness. Lumbar back: He exhibits no bony tenderness. Right lower leg: No edema. Left lower leg: No edema. Comments: Back - No step-offs Calf circumference equal bilaterally. Negative calf squeeze, negative Aramis sign. Skin: General: Skin is warm and dry. Neurological: General: No focal deficit present. Mental Status: He is alert and oriented to person, place, and time. Cranial Nerves: Cranial nerves are intact. Sensory: Sensation is intact. Motor: Motor function is intact. Psychiatric: Mood and Affect: Mood normal. Behavior: Behavior normal. Vitals: 06/05/19 1507 SpO2: 98% Labs Reviewed CBC WITH AUTO DIFFERENTIAL - Abnormal Result Value WBC 6.6 Hgb 15.6 Hct 49.9 Plt 150 MPV 10.6 RBC 5.38 MCV 92.8 MCH 29.0 MCHC 31.3 (*) RDW CV 14.2 RDW SD 48.7 (*) NRBC abs 0.00 COMPREHENSIVE METABOLIC PANEL - Abnormal Sodium 133 (*) Potassium, pl 4.1 Chloride 100 CO2 22 Anion gap 11 BUN 13 Creatinine 0.89 Glucose 134 Calcium 9.4 Bilirubin, total 0.3 Protein, pl 7.5 Albumin 4.3 Alk phos 76 ALT 15 AST 31 PRO B-TYPE NATRIURETIC PEPTIDE NT-proBNP 25 TROPONIN T 5TH GEN SERIES (BASELINE, 3HR, 6HR) Troponin T, Baseline 5th Gen 6 VALPROIC ACID LEVEL, TOTAL Valproic Acid 67.1 DIFFERENTIAL AUTO Neutrophil abs 3.0 Imm gran abs 0.0 Lymphocyte abs 2.9 Monocyte abs 0.5 Eosinophil abs 0.1 Basophil abs 0.0 Neutrophil pct 45.4 Imm gran pct 0.6 Lymphocyte pct 43.8 Monocyte pct 7.6 Eosinophil pct 2.0 Basophil pct 0.6 PROLACTIN Prolactin 10.1 EGFR GFR 96 TROPONIN T, 3 HOUR 5TH GEN TROPONIN T, 6 HOUR 5TH GEN No orders to display Procedures MDM Number of Diagnoses or Management Options Syncope and collapse: Diagnosis management comments: Will obtain baseline labs. Patient is concerned that if he goes home this will happen again, he does not drive because of these episodes, anticipate this patient will require admission with consultation to Neurology. ED Course as of Jun 05 1817 Time: 06/05 0197 Comment: Spoke with Dr. Carlos, cardio, who agrees to consult, agrees with plan for pt care, and has no further recommendations at this time. By: Lisette Gonzales Time: 06/05 1743 Comment: Spoke with Dr. Lopez, hospitalist, who accepts pt for admission, agrees with plan for ptcare and neurology consult, and has no further recommendations at this time. By: Lisette Gonzales IMPRESSION: 1. Syncope and collapse ATTESTATIONS: This note is prepared by Lisette Gonzales acting as a scribe for Joshua Benjamin DO I electronically signed this note at 6:19 PM on 06/05/2019. I, Joshua Benjamin DO have personally performed the services described in the documentation , reviewed the documentation, as recorded by the scribe in my presence, and it accurately and completely records my words and actions. Joshua Benjamin DO 06/05/191818 ACE COMBINATION ANALYST * Stewart Guzman RN - 06/05/2019 3:08 PM CST Pt was in the main hospital lobby when ED staff was called. PT found staring at nothing and not verbally responsive. PT is now A/O x4 Pt does have a HX of seizures. PT states this exact thing has happened to him 5 times in the past 2 months. ACE COMBINATION ANALYST * Dennis Fry RN - 06/05/2019 2:59 PM CST Bed: ED03 Expected date: Expected time: Means of arrival: Comments: Dennis Fry RN 06/05/19 7978 ACE COMBINATION ANALYST documented in this encounter Miscellaneous Notes * Plan of Care - Benny Haines RN - 06/07/2019 6:58 AM CST Goals: Clinical Goals for the Shift: ,good night rest Summary: He had a good night sleep.No episode of absence seizure was observed. ACE COMBINATION ANALYST * Plan of Care - Mecca Fitzpatrick RN - 06/06/2019 1:57 PM CST Goals: Clinical Goals for the Shift: seizure free Summary: ACE COMBINATION ANALYST * Plan of Care - Benny Haines RN - 06/06/2019 5:10 AM CST Goals: Clinical Goals for the Shift: seizure free Summary:He was an admission of the shift. No episode of absent seizure activities or syncope was observed through out the shift. Problem: Health Behavior: Goal: Understanding of discharge needs will improve Outcome: Progressing Problem: Lack of Knowledge: Goal: Ability to state ways to decrease the risk of falls will improve Outcome: Progressing Problem: Safety: Goal: Will remain free from falls Outcome: Progressing Goal: Will remain free from injury from falls Outcome: Progressing Goal: Will remain free from falls and injury in home environment Outcome: Progressing Problem: Lack of Knowledge: Goal: Knowledge of disease or condition will improve Outcome: Progressing Goal: Knowledge of the prescribed therapeutic regimen will improve Outcome: Progressing Problem: Coping: Goal: Ability to adjust to condition or change in health will improve Outcome: Progressing Goal: Ability to identify appropriate support needs will improve Outcome: Progressing Goal: Level of anxiety will decrease Outcome: Progressing Goal: Ability to verbalize feelings about condition will improve Outcome: Progressing Problem: Health Behavior: Goal: Ability to manage health-related needs will improve Outcome: Progressing Goal: Compliance with prescribed medication regimen will improve Outcome: Progressing Problem: Medication: Goal: Risk for medication side effects will decrease Outcome: Progressing Problem: Physical Regulation: Goal: Complications related to the disease process, condition or treatment will be avoided or minimized Outcome: Progressing Problem: Safety: Goal: Ability to remain free from injury will improve Outcome: Progressing ACE COMBINATION ANALYST * ED Procedure Note - Joshua Benjamin DO - 06/05/2019 3:08 PM CSTAssociated Order(s): ECG 12 lead Procedure ECG 12 lead Date/Time: 06/05/2019 3:08 PM Performed by: Joshua Benjamin DO Authorized by: Joshua Benjamin DO Rate: ECG rate: 84 ECG rate assessment: normal Rhythm: Rhythm: sinus rhythm Conduction: Conduction: abnormal Abnormal conduction: complete RBBB and LPFB ST segments: ST segments: Normal T waves: T waves: non-specific Previous ECG: Previous ECG: Compared to current Date of previous EC03/22/2019 Comparison ECG info: No sig changes Interpretation: Interpretation: No significant change Recommended Follow-up: Recommended follow up: further workup in the ED Joshua Benjamin DO 06/05/19 1513 ACE COMBINATION ANALYST documented in this encounter Plan of Treatment Not on file documented as of this encounter Procedures Procedure Name Priority Date/Time Associated Diagnosis Comments POCT GLUCOSE DEVICE Routine 06/07/2019 1 1:35 AM FURNACE COMBINATION ANALYST POCT GLUCOSE DEVICE Routine 06/07/2019 5 :55 AM FURNACE COMBINATION ANALYST POCT GLUCOSE DEVICE Routine 06/06/2019 9 :32 PM FURNACE COMBINATION ANALYST POCT GLUCOSE DEVICE Routine 06/06/2019 4 :37 PM FURNACE COMBINATION ANALYST POCT GLUCOSE DEVICE Routine 06/06/2019 1 1:44 AM FURNACE COMBINATION ANALYST EGFR Routine 06/06/2019 7:39 AM FURNACE COMBINATION ANALYST DIFFERENTIAL AUTO Routine 06/06/2019 7:3 9 AM FURNACE COMBINATION ANALYST CBC WITH AUTO DIFFERENTIAL Routine 06/06/2019 7:39 AM FURNACE COMBINATION ANALYST COMPREHENSIVE METABOLIC PANEL Routine 06/06/2019 7:39 AM FURNACE COMBINATION ANALYST POCT GLUCOSE DEVICE Routine 06/06/2019 6 :17 AM FURNACE COMBINATION ANALYST POCT GLUCOSE DEVICE Routine 06/06/2019 1 :[address] HEAD WO CONTRAST ED 06/06/2019 1 2:30 AM FURNACE COMBINATION ANALYST TROPONIN T, 3 HOUR 5TH GEN Timed 06/05/2019 6:19 PM FURNACE COMBINATION ANALYST TROPONIN T 5TH GEN SERIES (BASELINE, 3HR, 6HR) STAT 06/05/2019 3:13 PM FURNACE COMBINATION ANALYST EGFR STAT 06/05/2019 3:13 PM FURNACE COMBINATION ANALYST DIFFERENTIAL AUTO STAT 06/05/2019 3:1 3 PM FURNACE COMBINATION ANALYST PRO B-TYPE NATRIURETIC PEPTIDE STAT 06/05/2019 3:13 PM FURNACE COMBINATION ANALYST CBC WITH AUTO DIFFERENTIAL STAT 06/05/2019 3:13 PM FURNACE COMBINATION ANALYST PROLACTIN Add-On 06/05/2019 3:13 PM FURNACE COMBINATION ANALYST VALPROIC ACID LEVEL, TOTAL STAT 06/05/2019 3:13 PM FURNACE COMBINATION ANALYST COMPREHENSIVE METABOLIC PANEL STAT 06/05/2019 3:13 PM FURNACE COMBINATION ANALYST ECG 12-LEAD STAT 06/05/2019 3:03 PM FURNACE COMBINATION ANALYST documented in this encounter Results * POCT glucose (06/07/2019 11:35 AM FURNACE COMBINATION ANALYST) Glucose, POC 99 70 - 199 mg/dL [facility] Blood specimen (specimen) 06/07/2019 11:35 AM FURNACE COMBINATION ANALYST 06/07/2019 11:35 AM FURNACE COMBINATION ANALYST us Sergey Villa MD LAB POCT ORDERABLES - DEVICE Fi nal Result [facility]ENC[facility] [id number] Department [place] [address] * POCT glucose (06/07/2019 5:55 AM FURNACE COMBINATION ANALYST) Glucose, POC 120 70 - 199 mg/dL [facility] Blood specimen (specimen) 06/07/2019 5:55 AM FURNACE COMBINATION ANALYST 06/07/2019 5:55 AM FURNACE COMBINATION ANALYST Sergey Villa MD LAB POCT ORDERABLES - DEVICE Fi nal Result Performing Organization Address [facility] de Phone Number [facility] [address] [facility] [place] [address] * POCT glucose (06/06/2019 9:32 PM FURNACE COMBINATION ANALYST) Glucose, POC 131 70 - 199 mg/dL [facility] Blood specimen (specimen) 06/06/2019 9:32 PM FURNACE COMBINATION ANALYST 06/06/2019 9:32 PM FURNACE COMBINATION ANALYST Sergey Villa MD LAB POCT ORDERABLES - DEVICE Fi nal Result Performing Organization Address [facility] Phone Number [facility] [address] [facility] [place] [address] * POCT glucose (06/06/2019 4:37 PM FURNACE COMBINATION ANALYST) Glucose, POC 94 70 - 199 mg/dL [facility] Blood specimen (specimen) 06/06/2019 4:37 PM FURNACE COMBINATION ANALYST 06/06/2019 4:37 PM FURNACE COMBINATION ANALYST Sergey Villa MD LAB POCT ORDERABLES - DEVICE Fi nal Result Performing Organization Address [facility] de Phone Number [facility] [address] [facility] [place] [address] * POCT glucose (06/06/2019 11:44 AM FURNACE COMBINATION ANALYST) Glucose, POC 120 70 - 199 mg/dL [facility] Blood specimen (specimen) 06/06/2019 11:44 AM FURNACE COMBINATION ANALYST 06/06/2019 11:44 AM FURNACE COMBINATION ANALYST Sergey Villa MD LAB POCT ORDERABLES - DEVICE Fi nal Result JOHANNY VALENCIA [address] Department [place] [address] * eGFR (06/06/2019 7:39 AM FURNACE COMBINATION ANALYST) eGFR 91 mL/min/1.7 3 m2 JOHANNY VALENCIA Comment: Interpretive Data Reference Interval Normal ?>/= 90 mL/min/1.73m2 Mildly decreased* ? 60 - 89 mL/min/1.73m2 Mildly to moderately decreased ?45 - 59 mL/min/1.73m2 Moderately to severely decreased ??30 - 44 mL/min/1.73m2 Severely decreased ?15 - 29 mL/min/1.73m2 Kidney Failure ?< 15 ??mL/min/1.73m2 *Relative to young adult level If -Belarusian multiply value by 1.16. Estimated glomerular filtration [...] was last reviewed 2015. Blood specimen (specimen) 06/06/2019 7:39 AM FURNACE COMBINATION ANALYST 06/06/2019 8:03 AM FURNACE COMBINATION ANALYST us Jeannette Loya DO LAB BLOOD ORDERABLES Final Resu lt JOHANNY VALENCIA [address] [facility] [place] [address] * Differential, auto (06/06/2019 7:39 AM FURNACE COMBINATION ANALYST) Neutrophil abs 2.8 1.7 - 6.5 K/cumm [facility] Imm gran abs 0.0 0.0 - 0.1 K/cumm [facility] Lymphocyte abs 2.9 0.8 - 3.3 K/cumm [facility] Monocyte abs 0.5 0.2 - 0.8 K/cumm [facility] Eosinophil abs 0.2 0.0 - 0.5 K/cumm [facility] Basophil abs 0.0 0.0 - 0.1 K/cumm [facility] Neutrophil pct 43.1 % [facility] Comment: Interpretive Data Percent cell count reference ranges are not reported, since discordance with absolute values may lead to misinterpretation of CBC data. Current Interpretive Data was last revised on 2017. Imm gran pct 0.8 % [facility] Comment: Interpretive Data Percent cell count reference ranges are not reported, since discordance with absolute values may lead to misinterpretation of CBC data. Current Interpretive Data was last revised on 2017. Lymphocyte pct 44.8 % [facility] Comment: Interpretive Data Percent cell count reference ranges are not reported, since discordance with absolute values may lead to misinterpretation of CBC data. Current Interpretive Data was last revised on 2017. Monocyte pct 7.8 % [facility] Comment: Interpretive Data Percent cell count reference ranges are not reported, since discordance with absolute values may lead to misinterpretation of CBC data. Current Interpretive Data was last revised on 2017. Eosinophil pct 3.0 % [facility] Comment: Interpretive Data Percent cell count reference ranges are not reported, since discordance with absolute values may lead to misinterpretation of CBC data. Current Interpretive Data was last revised on 2017. Basophil pct 0.5 % [facility] Comment: Interpretive Data Percent cell count reference ranges are not reported, since discordance with absolute values may lead to misinterpretation of CBC data. Current Interpretive Data was last revised on 2017. Blood specimen (specimen) 06/06/2019 7:39 AM FURNACE COMBINATION ANALYST 06/06/2019 8:03 AM FURNACE COMBINATION ANALYST us Jeannette Vincenzo DO LAB BLOOD ORDERABLES Final Resu lt JOHANNY VALENCIA [address] Department [place] [address] * (ABNORMAL) Comprehensive metabolic panel (06/06/2019 7:39 AM FURNACE COMBINATION ANALYST) Sodium 134(L) 135 - 145 mmol/L [facility] Potassium, pl 4.3 3.3 - 4.9 mmol/L [facility] Chloride 98 97 - 110 mmol/L [facility] CO2 23 22 - 32 mmol/L [facility] Anion gap 13 2 - 15 mmol/L [facility] BUN 12 8 - 25 mg/dL [facility] Creatinine 0.94 0.80 - 1.30 mg/dL [facility] Glucose 126 70 - 199 mg/dL [facility] Comment: [...] - 10.3 mg/dL [facility] Bilirubin, total 0.3 0.1 - 1.2 mg/dL [facility] Protein, pl 7.3 6.5 - 8.5 g/dL [facility] Albumin 4.2 3.5 - 5.0 g/dL [facility] Alk phos 76 40 - 130 Units/L [facility] ALT 18 7 - 55 Units/L [facility] AST 28 10 - 50 Units/L [facility] Blood specimen (specimen) 06/06/2019 7:39 AM FURNACE COMBINATION ANALYST 06/06/2019 8:03 AM FURNACE COMBINATION ANALYST us Jeannette Loya DO LAB BLOOD ORDERABLES Final Resu lt JOHANNY VALENCIA [address] Department of Laboratories [place], [place] [id number] * (ABNORMAL) CBC with auto differential (06/06/2019 7:39 AM FURNACE COMBINATION ANALYST) [facility] WBC 6.4 3.8 - 9.9 K/cumm [facility] Hgb 15.5 13.0 - 17.5 g/dL [facility] Hct 50.6(H) 38.9 - 50.3 % [facility] Plt 166 150 - 400 K/cumm [facility] MPV 9.9 9.1 - 12.3 fL [facility] RBC 5.37 4.30 - 5.80 M/cumm [facility] MCV 94.2 81.3 - 96.4 fL [facility] MCH 28.9 27.1 - 33.3 pg [facility] MCHC 30.6(L) 32.3 - 35.7 g/dL [facility] RDW CV 14.3 11.1 - 14.9 % [facility] RDW SD 49.9(H) 35.7 - 48.1 fL [facility] NRBC abs 0.00 0.00 - 0.01 K/cumm [facility] Blood specimen (specimen) 06/06/2019 7:39 AM FURNACE COMBINATION ANALYST 06/06/2019 8:03 AM FURNACE COMBINATION ANALYST Jeannette Loya DO LAB BLOOD ORDERABLES Final Resu lt Performing Organization Address [facility] Co de Phone Number JOHANNY [address] [employer] [place] [place] [address] * POCT glucose (06/06/2019 6:17 AM FURNACE COMBINATION ANALYST) [facility] Glucose, POC 124 70 - 199 mg/dL [facility] Blood specimen (specimen) 06/06/2019 6:17 AM FURNACE COMBINATION ANALYST 06/06/2019 6:17 AM FURNACE COMBINATION ANALYST Sergey Villa MD LAB POCT ORDERABLES - DEVICE Fi nal Result Performing Organization Address [facility] Co de Phone Number [facility] [address] [place] [address] * POCT glucose (06/06/2019 1:18 AM FURNACE COMBINATION ANALYST) Glucose, POC 134 70 - 199 mg/dL JOH[facility] VALENCIA Blood specimen (specimen) 06/06/2019 1:18 AM FURNACE COMBINATION ANALYST 06/06/2019 1:18 AM FURNACE COMBINATION ANALYST us Joshua Benjamin DO LAB POCT ORDERABLES - DEVICE Final Result JOHANNY [address] [facility] [place] [address] * CT Head WO Contrast (06/06/2019 12:30 AM FURNACE COMBINATION ANALYST) Anatomical Region Laterality Modality Head and Neck N/A Computed Tomogra phy 06/06/2019 7:44 AM FURNACE COMBINATION ANALYST Impressions 06/06/2019 7:48 AM FURNACE COMBINATION ANALYST 1. ??No acute finding is seen in the brain. 2. ??Postsurgical changes from right temporal craniotomy. 3. 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 4. ??Mild diffuse cerebral atrophy. 5. ??No new findings have developed. A preliminary report was provided by [facility]. Electronically signed by: Dennis Vasquez M.D. Narrative 06/06/2019 7:48 AM FURNACE COMBINATION ANALYST EXAMINATION: CT HEAD WO CONTRAST DATE: 06/06/2019 12:00 AM HISTORY: Seizure. COMPARISON: 05/23/2018 TECHNIQUE: Transaxial computed tomographic images of the head were obtained without intravenous contrast. FINDINGS: There are postsurgical changes from a right temporal craniotomy. There is encephalomalacia in the right temporal lobe which is stable. There is no evidence of intracranial hemorrhage or mass lesion. There is mild diffuse cerebral atrophy. ??The ventricles are normal in size and there is no shift of midline structures. ??No bony abnormality is seen. ??The visualized portions of the paranasal sinuses and mastoid air cells are clear. Procedure Note Denins Vasquez MD - 06/06/2019 EXAMINATION: CT HEAD WO CONTRAST DATE: 06/06/2019 12:00 AM HISTORY: Seizure. COMPARISON: 05/23/2018 TECHNIQUE: Transaxial computed tomographic images of the head were obtained without intravenous contrast. FINDINGS: There are postsurgical changes from a right temporal craniotomy. There is encephalomalacia in the right temporal lobe which is stable. There is no evidence of intracranial hemorrhage or mass lesion. There is mild diffuse cerebral atrophy. The ventricles are normal in size and there is no shift of midline structures. No bony abnormality is seen. The visualized portions of the paranasal sinuses and mastoid air cells are clear. IMPRESSION: 1. No acute finding is seen in the brain. 2. Postsurgical changes from right temporal craniotomy. 3. Encephalomalacia in the right temporal lobe. 4. Mild diffuse cerebral atrophy. 5. No new findings have developed. A preliminary report was provided by [facility]. Electronically signed by: Dennis Vasquez M.D. us Gunner Masters MD IMG CT PROCEDURES Final Resul t * Troponin T, 3 Hour 5th Gen (06/05/2019 6:19 PM FURNACE COMBINATION ANALYST) Troponin T, 3 Hr 5th Gen <6 6 - 22 ng/L [facility] Blood specimen (specimen) 06/05/2019 6:19 PM FURNACE COMBINATION ANALYST 06/05/2019 6:25 PM FURNACE COMBINATION ANALYST us Joshua Benjamin DO LAB BLOOD ORDERABLES Final Re sult [facility] [address] Department [place] [address] * eGFR (06/05/2019 3:13 PM FURNACE COMBINATION ANALYST) eGFR 96 mL/min/1.7 3 m2 [facility] Comment: Interpretive Data Reference Interval Normal ?>/= 90 mL/min/1.73m2 Mildly decreased* ? 60 - 89 mL/min/1.73m2 Mildly to moderately decreased ?45 - 59 mL/min/1.73m2 Moderately to severely decreased ??30 - 44 mL/min/1.73m2 Severely decreased ?15 - 29 mL/min/1.73m2 Kidney Failure ?< 15 ??mL/min/1.73m2 *Relative to young adult level If -Belarusian multiply value by 1.16. Estimated glomerular filtration [...] was last reviewed 2015. Blood specimen (specimen) 06/05/2019 3:13 PM FURNACE COMBINATION ANALYST 06/05/2019 3:13 PM FURNACE COMBINATION ANALYST us Joshua Benjamin DO LAB BLOOD ORDERABLES Final Re sult Performing Organization Address [facility] Co de Phone Number [facility] [address] [address] * Prolactin (06/05/2019 3:13 PM FURNACE COMBINATION ANALYST) Prolactin 10.1 4.0 - 15.2 ng/mL [facility] Blood specimen (specimen) 06/05/2019 3:13 PM FURNACE COMBINATION ANALYST 06/05/2019 3:42 PM FURNACE COMBINATION ANALYST Joshua Benjamin DO LAB BLOOD ORDERABLES Final Re sult Performing Organization Address [facility] de Phone Number [facility] [address] [address] [employer] [place] [address] * Differential, auto (06/05/2019 3:13 PM FURNACE COMBINATION ANALYST) Neutrophil abs 3.0 1.7 - 6.5 K/cumm [facility] Imm gran abs 0.0 0.0 - 0.1 K/cumm [facility] Lymphocyte abs 2.9 0.8 - 3.3 K/cumm [facility] Monocyte abs 0.5 0.2 - 0.8 K/cumm [facility] Eosinophil abs 0.1 0.0 - 0.5 K/cumm [facility] Basophil abs 0.0 0.0 - 0.1 K/cumm [facility] Neutrophil pct 45.4 % [facility] Comment: Interpretive Data Percent cell count reference ranges are not reported, since discordance with absolute values may lead to misinterpretation of CBC data. Current Interpretive Data was last revised on 2017. Imm gran pct 0.6 % [facility] Comment: Interpretive Data Percent cell count reference ranges are not reported, since discordance with absolute values may lead to misinterpretation of CBC data. Current Interpretive Data was last revised on 2017. Lymphocyte pct 43.8 % [facility] Comment: Interpretive Data Percent cell count reference ranges are not reported, since discordance with absolute values may lead to misinterpretation of CBC data. Current Interpretive Data was last revised on 2017. Monocyte pct 7.6 % [facility] Comment: Interpretive Data Percent cell count reference ranges are not reported, since discordance with absolute values may lead to misinterpretation of CBC data. Current Interpretive Data was last revised on 2017. Eosinophil pct 2.0 % [facility] Comment: Interpretive Data Percent cell count reference ranges are not reported, since discordance with absolute values may lead to misinterpretation of CBC data. Current Interpretive Data was last revised on 2017. Basophil pct 0.6 % [facility] Comment: Interpretive Data Percent cell count reference ranges are not reported, since discordance with absolute values may lead to misinterpretation of CBC data. Current Interpretive Data was last revised on 2017. Blood specimen (specimen) 06/05/2019 3:13 PM FURNACE COMBINATION ANALYST 06/05/2019 3:13 PM FURNACE COMBINATION ANALYST us Joshua Benjamin DO LAB BLOOD ORDERABLES Final Re sult JOHANNY [address] Department [place] [address] * Valproic acid level, total (06/05/2019 3:13 PM FURNACE COMBINATION ANALYST) Valproic Acid 67.1 50.0 - 100.0 mcg/mL [facility]OHANNY Blood specimen (specimen) 06/05/2019 3:13 PM FURNACE COMBINATION ANALYST 06/05/2019 3:13 PM FURNACE COMBINATION ANALYST Joshua Benjamin DO LAB BLOOD ORDERABLES Final Re sult Performing Organization Address [facility] Co de Phone Number [facility] [address] [address] [facility] [place] [address] * Troponin T 5th Gen series (Baseline, 3hr, 6hr) (06/05/2019 3:13 PM FURNACE COMBINATION ANALYST) Troponin T, Baseline 5th Gen 6 6 - 22 ng/L [facility] Blood specimen (specimen) 06/05/2019 3:13 PM FURNACE COMBINATION ANALYST 06/05/2019 3:13 PM FURNACE COMBINATION ANALYST Joshua Benjamin DO LAB BLOOD ORDERABLES Final Re sult Performing Organization Address [facility] Phone Number [facility] [address] [address] [facility] [place] [address] * Pro B-type natriuretic peptide (06/05/2019 3:13 PM FURNACE COMBINATION ANALYST) NT-proBNP 25 <=300 pg/mL JOHANNY Comment: Interpretive Comments: A. Dyspnea in Acute Care Setting All Ages: ?< 300 pg/ml, acute heart failure unlikely. < 50 yrs: ?300 - 450 pg/ml, further investigation warranted. ? > 450 pg/ml, acute heart failure likely. 50 - 74 yrs: ? 300 - 900 pg/ml, further investigation warranted. ? > 900 pg/ml, acute heart failure likely . > or = 75 yrs: ? 450 - 1800 pg/ml, further investigation warranted. ? > 1800 pg/ml, acute heart failure likely. B. Non-acute Setting < 75 yrs ? < 125 pg/ml, rules out heart failure. ? > or = 125 pg/ml, further investigation warranted. > or = 75 yrs ?< 450 pg/ml, rules out heart failure. ? > or = 450 pg/ml, further investigation warranted. - Knowledge of each individual patient's NT-proBNP range may be more useful than using similar cut-points for every patient. Please note that marked elevations in NT-proBNP levels may be observed in state other than Left Ventricular Congestive Failure, including: acute coronary syndromes, right heart strain/failure (including pulmonary embolism and cor pulmonale), critical illness, renal failure, as well as advanced age. - References: 1. Christine DALTON et.al. Eur Heart J. 2006:27:330-337. 2. Domitila RW, Damien SAENZ. J. AM Tatiana Cardiol: Cardiovasc Imag. 2009;2: 216- 225. Interpretive Data Last Revised Date: 2018. Blood specimen (specimen) 06/05/2019 3:13 PM FURNACE COMBINATION ANALYST 06/05/2019 3:13 PM FURNACE COMBINATION ANALYST us Joshua Benjamin DO LAB BLOOD ORDERABLES Final Re sult [facility] [address] Department [place] [address] * (ABNORMAL) Comprehensive metabolic panel (06/05/2019 3:13 PM FURNACE COMBINATION ANALYST) Sodium 133(L) 135 - 145 mmol/L [facility] Potassium, pl 4.1 3.3 - 4.9 mmol/L [facility] Chloride 100 97 - 110 mmol/L [facility] CO2 22 22 - 32 mmol/L [facility] Anion gap 11 2 - 15 mmol/L [facility] BUN 13 8 - 25 mg/dL [facility] Creatinine 0.89 0.80 - 1.30 mg/dL [facility] Glucose 134 70 - 199 mg/dL [facility] Comment: Interpretive [...] interpretive data was last revised 2017. Calcium 9.4 8.5 - 10.3 mg/dL [facility] Bilirubin, total 0.3 0.1 - 1.2 mg/dL [facility] Protein, pl 7.5 6.5 - 8.5 g/dL [facility] Albumin 4.3 3.5 - 5.0 g/dL [facility] Alk phos 76 40 - 130 Units/L [facility] ALT 15 7 - 55 Units/L [facility] AST 31 10 - 50 Units/L [facility] Blood specimen (specimen) 06/05/2019 3:13 PM FURNACE COMBINATION ANALYST 06/05/2019 3:13 PM FURNACE COMBINATION ANALYST us Joshua Benjamin DO LAB BLOOD ORDERABLES Final Re sult [facility] [address] [address] Department [place] [address] * (ABNORMAL) CBC with auto differential (06/05/2019 3:13 PM FURNACE COMBINATION ANALYST) WBC 6.6 3.8 - 9.9 K/cumm [facility] Hgb 15.6 13.0 - 17.5 g/dL [facility] Hct 49.9 38.9 - 50.3 % [facility] Plt 150 150 - 400 K/cumm [facility] MPV 10.6 9.1 - 12.3 fL [facility] RBC 5.38 4.30 - 5.80 M/cumm [facility] MCV 92.8 81.3 - 96.4 fL [facility] MCH 29.0 27.1 - 33.3 pg [facility] MCHC 31.3(L) 32.3 - 35.7 g/dL [facility] RDW CV 14.2 11.1 - 14.9 % [facility] RDW SD 48.7(H) 35.7 - 48.1 fL [facility] NRBC abs 0.00 0.00 - 0.01 K/cumm [facility] Blood specimen (specimen) 06/05/2019 3:13 PM FURNACE COMBINATION ANALYST 06/05/2019 3:13 PM FURNACE COMBINATION ANALYST Joshua Benjamin DO LAB BLOOD ORDERABLES Final Re sult Performing Organization Address [facility]/ZIP Co de Phone Number [facility] [address] Department [place] [address] * ECG 12 lead (06/05/2019 3:03 PM FURNACE COMBINATION ANALYST) 06/05/2019 3:03 PM FURNACE COMBINATION ANALYST Narrative [facility] - 06/05/2019 3:47 PM FURNACE COMBINATION ANALYST Vent Rate: 84 bpm RR Interval: 714 msec [place] Interval: 208 msec QRS Duration: 129 msec QT Interval: 403 msec QTC Interval: 443 msec P-R-T Villalba: 28 - 143 - 13 degrees SINUS RHYTHM RIGHT BUNDLE BRANCH BLOCK LEFT POSTERIOR FASCICULAR BLOCK ABNORMAL ECG Compared to previous ECG the left posterior fascicular block is new Electronically Signed By: Viet Luque MD, [facility] us Joshua Benjamin DO ECG ORDERABLES Final Result Performing Organization Address [facility] Co de Phone Number [facility] documented in this encounter Visit Diagnoses Diagnosis Syncope and collapse- Primary Syncope and collapse Recurrent seizures (CMS/HCC) (HCC) Unspecified epilepsy without mention of intractable epilepsy Pacemaker Cardiac pacemaker in situ Diabetes (HCC) Type II or unspecified type diabetes mellitus without mention of complication, not stated as uncontrolled Hypertension Unspecified essential hypertension Asthma Unspecified asthma Hypothyroidism Unspecified hypothyroidism Anxiety and depression GERD (gastroesophageal reflux disease) Esophageal reflux S/P lobectomy of brain Other postprocedural status documented in this encounter Administered Medications Inactive Administered Medications - up to 3 most recent administrations Medication Order MAR Action Action Date Dose Rate Site acetaminophen (TYLENOL) tablet 650 mg 650 mg, oral, Every 4 hours PRN, headaches, fever, Starting on Sun06/06/19 at 0257 aspirin chewable tablet 81 mg 81 mg, oral, Daily, First dose on Sun06/06/19 at 0900 Given 06/07/2019 9:45 AM FURNACE COMBINATION ANALYST 81 mg Given 06/06/2019 9:01 AM FURNACE COMBINATION ANALYST 81 mg citalopram (CeleXA) tablet 40 mg 40 mg, oral, Every morning, First dose on Sun06/06/19 at 0900 Given 06/07/2019 9:47 AM FURNACE COMBINATION ANALYST 40 mg Given 06/06/2019 9:01 AM FURNACE COMBINATION ANALYST 40 mg cyclobenzaprine (FLEXERIL) tablet 10 mg 10 mg, oral, 2 times daily, First dose on Sun06/06/19 at 0900 Given 06/07/2019 9:46 AM FURNACE COMBINATION ANALYST 10 mg Given 06/06/2019 9:26 PM FURNACE COMBINATION ANALYST 10 mg Given 06/06/2019 9:00 AM FURNACE COMBINATION ANALYST 10 mg dextrose (D10W) 10% bolus 250 mL 250 mL, intravenous, at 1,000 mL/hr, Administer over 15 Minutes, Every 15 min PRN, blood glucose less than 70 mg/dL and UNABLE to swallow/take PO glucose/juice., Starting on Sun06/06/19 at 256, After treatment for hypoglycemia, recheck BG followed by treatment every 15 minutes until the BG is greater than 100 mg/dL. Then check BG 1 hour post treatment. If BG is less than 100 mg/dL, repeat Q15 minute BG checks and treatment. Call MD for each episode of hypoglycemia., Indications: hypoglycemic disorderIndications:hypoglycemic disorder dextrose oral liquid liquid 15 g 15 g, oral, Every 15 min PRN, low blood sugar, blood glucose less than 70 mg/dL, Starting on Sun06/06/19 at 256, If patient is alert and able to [...] episode of hypoglycemia., Indications: hypoglycemic disorderIndications:hypoglycemic disorder dicyclomine (BENTYL) tablet 10 mg 10 mg, oral, 3 times daily, First dose on Sun06/06/19 at 0900 Given 06/07/2019 9:50 AM FURNACE COMBINATION ANALYST 10 mg Given 06/06/2019 9:27 PM FURNACE COMBINATION ANALYST 10 mg Given 06/06/2019 3:07 PM FURNACE COMBINATION ANALYST 10 mg divalproex ER (DEPAKOTE ER) 24 hour tablet 1,000 mg 1,000 mg, oral, 2 times daily, First dose on Sun06/06/19 at 0900, Indications: epilepsyIndications:epilepsy Given 06/07/2019 9:46 AM FURNACE COMBINATION ANALYST 1,000 mg Given 06/06/2019 9:26 PM FURNACE COMBINATION ANALYST 1,000 mg Given 06/06/2019 9:02 AM FURNACE COMBINATION ANALYST 1,000 mg enalapril (VASOTEC) tablet 5 mg 5 mg, oral, Daily, First dose on Sun06/06/19 at 0900 Given 06/07/2019 9:54 AM FURNACE COMBINATION ANALYST 5 mg Given 06/06/2019 9:02 AM FURNACE COMBINATION ANALYST 5 mg enoxaparin (LOVENOX) syringe 40 mg 40 mg, subcutaneous, Daily (for enoxaparin), First dose on Sun06/06/19 at 2100, Indications: Deep Vein Thrombosis PreventionIndications:Deep Vein Thrombosis Prevention Given 06/06/2019 9:26 PM FURNACE COMBINATION ANALYST 40 mg Right Upper Abdomen fluticasone propion-salmeterol (ADVAIR DISKUS) 250-50 mcg/dose diskus inhaler 1 puff 1 puff, inhalation, 2 times daily (respiratory care technician), First dose on Sun06/06/19 at 0800, Rinse mouth with water after use. Do not swallow. Given 06/07/2019 4:46 PM FURNACE COMBINATION ANALYST 1 puff Given 06/07/2019 9:02 AM FURNACE COMBINATION ANALYST 1 puff Given 06/06/2019 4:41 PM FURNACE COMBINATION ANALYST 1 puff glucagon injection 1 mg 1 mg, intramuscular, Administer over 1 Minutes, Every 30 min PRN, low blood sugar, blood glucose less than 70 mg/dL AND no IV access AND unable to take PO glucose/jiuce., Starting on Sun06/06/19 at 0257, After Glucagon is administered, position patient on [...] Q15 minute BG checks and treatment. Call for each episode of hypoglycemia., Indications: HypoglycemiaIndications:Hypogly cemia influenza quadrivalent [id number] (FLULAVAL,FLUARIX,FLUZONE) 60 mcg (15 mcg x 4)/0.5 mL vaccine (STANDARD age 6 months and up) 0.5 mL 0.5 mL, intramuscular, During hospitalization, immunization, Starting on Sun06/06/19 at 0900, For 1 dose Given 06/06/2019 12:41 PM FURNACE COMBINATION ANALYST 0.5 mL Right Deltoid insulin lispro (HumaLOG) injection 1-3 Units 1-3 Units, subcutaneous, Nightly, First dose on Sun06/06/19 at 2100, Blood Sugar Mid Dose PM - PO patients 175 or less No insulin 176 - 200 1 unit 201 - 250 2 units 251 - 299 3 units Greater than 299 Call MD for hyperglycemia management instructions Do NOT hold for NPO status., Indications: Diabetes MellitusIndications:Diabetes Mellitus insulin lispro (HumaLOG) injection 1-5 Units 1-5 Units, subcutaneous, 3 times daily with meals, First dose on Sun06/06/19 at 0800, Blood Sugar Mid Dose meal time - PO patients 139 or less No insulin 140 - 175 1 unit 176 - 200 2 unit 201 - 250 3 units 251 - 299 5 units Greater than 299 Call MD for hyperglycemia management instructions Do NOT hold for NPO status., Indications: Diabetes MellitusIndications:Diabetes Mellitus ipratropium-albuterol (DUO-NEB) 0.5-2.5 mg/3 mL nebulizer solution 3 mL 3 mL, nebulization, Every 4 hours PRN (respiratory care technician), wheezing, shortness of breath, Starting on Sun06/06/19 at 0257, Indications: Chronic Obstructive Pulmonary Disease with BronchospasmsIndications:Chroni c Obstructive Pulmonary Disease with Bronchospasms levETIRAcetam (KEPPRA) 1,000 mg/100 mL in sodium chloride (premix) 1,000 mg 1,000 mg, intravenous, Administer over 15 Minutes, Once, On [place] 06/05/19 at 2148, For 1 dose, Room temperature only New Bag 06/05/2019 10:17 PM FURNACE COMBINATION ANALYST 1,000 mg levothyroxine (SYNTHROID) tablet 50 mcg 50 mcg, oral, Daily (early AM), First dose on Sun06/06/19 at 0600, Administer on an empty stomach, preferably 30 minutes before breakfast. Take 4 hours apart from antacids, iron and calcium products. Given 06/07/2019 5:51 AM FURNACE COMBINATION ANALYST 50 mcg Given 06/06/2019 6:09 AM FURNACE COMBINATION ANALYST 50 mcg LORazepam (ATIVAN) injection 2 mg 2 mg, intravenous, Every 5 min PRN, seizures, Starting on Sun06/06/19 at 0257, For 2 doses, For IV administration, dilute with equal volume of 0.9% sodium chloride. Do not exceed a rate of 2 mg/minute montelukast (SINGULAIR) tablet 10 mg 10 mg, oral, Daily, First dose on Sun06/06/19 at 0900 Given 06/07/2019 9:46 AM FURNACE COMBINATION ANALYST 10 mg Given 06/06/2019 9:02 AM FURNACE COMBINATION ANALYST 10 mg nortriptyline (PAMELOR) capsule 75 mg 75 mg, oral, 2 times daily, First dose on Sun06/06/19 at 0900 Given 06/07/2019 9:51 AM FURNACE COMBINATION ANALYST 75 mg Given 06/06/2019 9:26 PM FURNACE COMBINATION ANALYST 75 mg Given 06/06/2019 9:00 AM FURNACE COMBINATION ANALYST 75 mg ondansetron (ZOFRAN) injection 4 mg 4 mg, intravenous, Administer over 2 Minutes, Every 4 hours PRN, nausea, vomiting, Starting on Sun06/06/[address] (PROTONIX) extended release tablet 40 mg 40 mg, oral, Daily, First dose on Sun06/06/19 at 0900, Do not crush, chew, cut, dissolve, open or otherwise manipulate tablet/capsule., Indications: Stress Ulcer ProphylaxisIndications:Stress Ulcer Prophylaxis Given 06/07/2019 9:46 AM FURNACE COMBINATION ANALYST 40 mg Given 06/06/2019 9:02 AM FURNACE COMBINATION ANALYST 40 mg topiramate (TOPAMAX) tablet 200 mg 200 mg, oral, 2 times daily, First dose on Sun06/06/19 at 0900, Indications: Complex-Partial EpilepsyIndications:Complex-Partial Epilepsy Given 06/07/2019 9:46 AM FURNACE COMBINATION ANALYST 200 mg Given 06/06/2019 9:26 PM FURNACE COMBINATION ANALYST 200 mg Given 06/06/2019 9:00 AM FURNACE COMBINATION ANALYST 200 mg documented in this encounter Active and Recently Administered Medications Times are shown in FURNACE COMBINATION ANALYST. Scheduled Medication Order 06/05/2019 06/06/2019 06/07/2019 aspirin chewable tablet 81 mg 81 mg, oral, Daily, First dose on Sun06/06/19 at 0900 0901 (Given - Provider: Mecca Fitzpatrick RN) 0945 (Given - Provider: Mecca Doyle RN) citalopram (CeleXA) tablet 40 mg 40 mg, oral, Every morning, First dose on Sun06/06/19 at 0900 0901 (Given - Provider: Mecca Fitzpatrick RN) 0947 (Given - Provider: Mecca Doyle RN) cyclobenzaprine (FLEXERIL) tablet 10 mg 10 mg, oral, 2 times daily, First dose on Sun06/06/19 at 0900 0900 (Given - Provider: Mecca Fitzpatrick RN)212 (Given - Provider: Benny Haines RN) 0946 (Given - Provider: Mecca Doyle RN) dicyclomine (BENTYL) tablet 10 mg 10 mg, oral, 3 times daily, First dose on Sun06/06/19 at 0900 0901 (Given - Provider: Mecca Fitzpatrick RN)1507 (Given - Provider: Mecca Fitzpatrick RN)2127 (Given - Provider: Benny Haines RN) 0950 (Given - Provider: Mecca Doyle RN)1600 (Due) divalproex ER (DEPAKOTE ER) 24 hour tablet 1,000 mg 1,000 mg, oral, 2 times daily, First dose on Sun06/06/19 at 0900, Indications: epilepsy 901 (Given - Provider: Mecca Fitzpatrick RN)212 (Given - Provider: Benny Haines RN) 0946 (Given - Provider: Mecca Doyle, SYLVIA) enalapril (VASOTEC) tablet 5 mg 5 mg, oral, Daily, First dose on Sun06/06/19 at 0900 0902 (Given - Provider: Mecca Fitzpatrick RN) 0954 (Given - Provider: Mecca Doyle RN) enoxaparin (LOVENOX) syringe 40 mg 40 mg, subcutaneous, Daily (for enoxaparin), First dose on Sun06/06/19 at 2100, Indications: Deep Vein Thrombosis Prevention 2125 (Given - Provider: Benny Haines RN) fluticasone propion-salmeterol (ADVAIR DISKUS) 250-50 mcg/dose diskus inhaler 1 puff 1 puff, inhalation, 2 times daily (respiratory care technician), First dose on Sun06/06/19 at 0800, Rinse mouth with water after use. Do not swallow. 0849 (Given - Provider: Edna Baeza, JUSTUS)1641 (Given - Provider: Edna Baeza, CUSTOMER RELATIONS COORDINATOR) 0902 (Given - Provider: Mariana Collazo, JUSTUS)1646 (Given - Provider: Mariana Collazo, JUSTUS) insulin lispro (HumaLOG) injection 1-3 Units 1-3 Units, subcutaneous, Nightly, First dose on Sun06/06/19 at 2100, Blood Sugar Mid Dose PM - PO patients 175 or less No insulin 176 - 200 1 unit 201 - 250 2 units 251 - 299 3 units Greater than 299 Call MD for hyperglycemia management instructions Do NOT hold for NPO status., Indications: Diabetes Mellitus 2132 (Not Given - Provider: Benny Haines RN - Reason: Order parameters not met) insulin lispro (HumaLOG) injection 1-5 Units 1-5 Units, subcutaneous, 3 times daily with meals, First dose on Sun06/06/19 at 0800, Blood Sugar Mid Dose meal time - PO patients 139 or less No insulin 140 - 175 1 unit 176 - 200 2 unit 201 - 250 3 units 251 - 299 5 units Greater than 299 Call MD for hyperglycemia management instructions Do NOT hold for NPO status., Indications: Diabetes Mellitus 0659 (Not Given - Provider: Benny Haines RN - Reason: Order parameters not met)1145 (Not Given - Provider: Mecca Fitzpatrick RN - Reason: Order parameters not met)1638 (Not Given - Provider: Mecca Fitzpatrick RN - Reason: Order parameters not met) 0800 (Hold - Provider: Benny Haines RN - Reason: Order parameters not met)1152 (Not Given - Provider: Mecca Doyle RN - Reason: Order parameters not met)1800 (Due) levETIRAcetam (KEPPRA) 1,000 mg/100 mL in sodium chloride (premix) 1,000 mg (COMPLETED) 1,000 mg, intravenous, Administer over 15 Minutes, Once, On [place] 06/05/19 at 2148, For 1 dose, Room temperature only 2217 (New Bag - Provider: Baljit Gomez, RN)2240 (Stopped - Provider: Baljit Gomez, RN) levothyroxine (SYNTHROID) tablet 50 mcg 50 mcg, oral, Daily (early AM), First dose on Sun06/06/19 at 0600, Administer on an empty stomach, preferably 30 minutes before breakfast. Take 4 hours apart from antacids, iron and calcium products. 0609 (Given - Provider: Benny Haines RN) 0551 (Given - Provider: Benny Haines RN) montelukast (SINGULAIR) tablet 10 mg 10 mg, oral, Daily, First dose on Sun06/06/19 at 0900 09 (Given - Provider: Mecca Fitzpatrick RN) 945 (Given - Provider: Mecca Doyle RN) nortriptyline (PAMELOR) capsule 75 mg 75 mg, oral, 2 times daily, First dose on Sun06/06/19 at 0900 0900 (Given - Provider: Mecca Fitzpatrick RN)2125 (Given - Provider: Benny Haines RN) 0951 (Given - Provider: Mecca Doyle, SYLVIA) pantoprazole DR (PROTONIX) extended release tablet 40 mg 40 mg, oral, Daily, First dose on Sun06/06/19 at 0900, Do not crush, chew, cut, dissolve, open or otherwise manipulate tablet/capsule., Indications: Stress Ulcer Prophylaxis 901 (Given - Provider: Mecca Fitzpatrick RN) 0946 (Given - Provider: Mecca Doyle, SYLVIA) topiramate (TOPAMAX) tablet 200 mg 200 mg, oral, 2 times daily, First dose on Sun06/06/19 at 0900, Indications: Complex-Partial Epilepsy 0900 (Given - Provider: Mecca Fitzpatrick RN)2125 (Given - Provider: Benny Haines RN) 0946 (Given - Provider: Mecca Doyle RN) PRN Medication Order 06/05/2019 06/06/2019 06/07/2019 acetaminophen (TYLENOL) tablet 650 mg 650 mg, oral, Every 4 hours PRN, headaches, fever, Starting on Sun06/06/19 at 256 dextrose (D10W) 10% bolus 250 mL(Linked Group 1) 250 mL, intravenous, at 1,000 mL/hr, Administer over 15 Minutes, Every 15 min PRN, blood glucose less than 70 mg/dL and UNABLE to swallow/take PO glucose/juice., Starting on Sun06/06/19 at 256, After treatment for hypoglycemia, recheck BG followed by treatment every 15 minutes until the BG is greater than 100 mg/dL. Then check BG 1 hour post treatment. If BG is less than 100 mg/dL, repeat Q15 minute BG checks and treatment. Call MD for each episode of hypoglycemia., Indications: hypoglycemic disorder dextrose oral liquid liquid 15 g(Linked Group 1) 15 g, oral, Every 15 min PRN, low blood sugar, blood glucose less than 70 mg/dL, Starting on Sun06/06/19 at 256, If patient is alert and able to [...] each episode of hypoglycemia., Indications: hypoglycemic disorder glucagon injection 1 mg 1 mg, intramuscular, Administer over 1 Minutes, Every 30 min PRN, low blood sugar, blood glucose less than 70 mg/dL AND no IV access AND unable to take PO glucose/jiuce., Starting on Sun06/06/19 at 256, After Glucagon is administered, position patient on [...] MD for each episode of hypoglycemia., Indications: Hypoglycemia influenza quadrivalent [id number] (FLULAVAL,FLUARIX,FLUZONE) 60 mcg (15 mcg x 4)/0.5 mL vaccine (STANDARD age 6 months and up) 0.5 mL (COMPLETED) 0.5 mL, intramuscular, During hospitalization, immunization, Starting on Sun06/06/19 at 0900, For 1 dose 1241 (Given - Provider: Mecca Fitzpatrick, SYLVIA) ipratropium-albuterol (DUO-NEB) 0.5-2.5 mg/3 mL nebulizer solution 3 mL 3 mL, nebulization, Every 4 hours PRN (respiratory care technician), wheezing, shortness of breath, Starting on Sun06/06/19 at 0257, Indications: Chronic Obstructive Pulmonary Disease with Bronchospasms LORazepam (ATIVAN) injection 2 mg 2 mg, intravenous, Every 5 min PRN, seizures, Starting on Sun06/06/19 at 0257, For 2 doses, For IV administration, dilute with equal volume of 0.9% sodium chloride. Do not exceed a rate of 2 mg/minute meclizine (ANTIVERT) tablet 25 mg 25 mg, oral, 3 times daily PRN, dizziness, Starting on Sun06/06/19 at 0255 ondansetron (ZOFRAN) injection 4 mg 4 mg, intravenous, Administer over 2 Minutes, Every 4 hours PRN, nausea, vomiting, Starting on Sun06/06/19 at 0257 Linked Groups Order Group 1: dextrose oral liquid liquid 15 gJump to med 15 g, oral, Every 15 min PRN, low blood sugar, blood glucose less than 70 mg/dL, Starting on Sun06/06/19 at 0257, If patient is alert and able to [...] each episode of hypoglycemia., Indications: hypoglycemic disorder Or dextrose (D10W) 10% bolus 250 mLJump to med 250 mL, intravenous, at 1,000 mL/hr, Administer over 15 Minutes, Every 15 min PRN, blood glucose less than 70 mg/dL and UNABLE to swallow/take PO glucose/juice., Starting on Sun06/06/19 at 0257, After treatment for hypoglycemia, recheck BG followed [...] Count Last Ordered Date First Ordered Date acetaminophen (TYLENOL) tablet 650 mg dextrose (D10W) 10% bolus 250 mL 06/06/19 dextrose oral liquid liquid 15 g 06/06/19 20 glucagon injection 1 mg 1 06/06/2019 insulin lispro (HumaLOG) inj ection 1-3 Units 1 06/06/2019 insulin lispro (HumaLOG) inj ection 1-5 Units 1 06/06/2019 ipratropium-albuterol (DUO-N EB) 0.5-2.5 mg/3 mL nebulizer solution 3 mL 1 06/06/2019 LORazepam (ATIVAN) injection 2 mg 1 020 meclizine (ANTIVERT) tablet 25 mg 1 020 ondansetron (ZOFRAN) injection 4 mg 1 06/06 ADT Patient Update Count Last Ordered Date Firs t Ordered Date ED IP DECISION TO ADMIT 06/05/2019 documented in this encounter Care Teams Manufacturing Technician Relationship Specialty Start Date End Date Sergey Wilson MD PCP - General 09/20/16 documented as of this encounter
--- OUTSIDE RECORDS SUMMARY | 2024-05-24 02:09 | XMS_ITS | Encounter Summary ---
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
--- OUTSIDE RECORDS SUMMARY | 2024-05-24 02:09 | XMS_ITS | Encounter Summary ---
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
--- OUTSIDE RECORDS SUMMARY | 2024-05-24 02:09 | XMS_ITS | Encounter Summary ---
Author Organization [facility] Healthcare Address [address] [place] [address] Care Team Providers Care Building Specialist Name Role Phone Sergey Wilson MD Primary Care Provider [phone] Encounter Details Date Type Department Care Team (Latest Contact Info) Description 04/04/2019 6:25 PM SHOE MAKER - 04/04/2019 11:59 PM SHOE MAKER Hospital Encounter [facility] Discharge Disposition: Discharge to home or self care Social History Tobacco Use Types Packs/Day Years Used Date Smoking Tobacco: Former Smokeless Tobacco: Never Alcohol Use Standard Drinks/Week Comments No 0 (1 standard drink = 0.6 oz pur e alcohol) Sex and Gender Information Value Date Recorded Sex Assigned at Not on file 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 Gender Identity Not on file Sexual Orientation Not on file documented as of this encounter Medications at Time of Discharge aspirin 81 mg chewable tablet Take 1 tablet (81 mg total) by mouth daily citalopram (CeleXA) 40 mg tablet Take 1 tablet (40 mg total) by mouth every morning cyanocobalamin/f olic acid (vitamin X18-vousa acid) 2,500-400 mcg tablet,disintegr ating 05/14/1969 cyclobenzaprine [...] 1 tablet (50 mcg total) by mouth charge operator before breakfast montelukast (SINGULAIR) 10 mg tablet Take 1 tablet (10 mg total) by mouth daily naproxen sodium 220 mg capsule ALEVE CAPSULE 05/14/1969 nortriptyline (PAMELOR) 75 mg capsule Take 1 capsule (75 mg total) by mouth 2 (two) times a day omeprazole (PriLOSEC) 20 mg capsule Take 1 capsule (20 mg total) by mouth daily before breakfast [employer] ULTRA BLUE TEST STRIP strip USE TO TEST QD 0 09/13/2017 Xylitol [place] ULTRA2 kit USE TO TEST QD 0 [...] on filedocumented in this encounter Care Teams Building Specialist Relationship Specialty Start Date End Date Sergey Wilson MD PCP - General 09/20/16 documented as of this encounter
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
--- OUTSIDE RECORDS SUMMARY | 2024-05-24 02:09 | XMS_ITS | Encounter Summary ---
Author Organization [facility] Address [address] [place] [address] Phone Care Team Providers Care Foot Press Operator Name Role Phone Sergey Wilson MD Primary Care Provider [phone] Reason for Visit * Reason Onset Date Comments States was at Hospital last night 02/04/2018 Encounter Details Date Type Department Care Team (Late st Contact Info) Description 02/04/2018 Telephone [facility] Epilepsy [address] [facility] 6th [place] [address] [place] [address] Clifton Jose MD PhD [address] [place] [address] States was at Hospital last night Social History Tobacco Use Types Packs/Day Years Used Date Smoking Tobacco: Former Alcohol Use Standard Drinks/Week Comments No 0 (1 standard drink = 0.6 oz pur e alcohol) Sex and Gender Information Value Date Recorded Sex Assigned at Not on file 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 PROPOSITION PLAYER Gender Identity Not on file Sexual Orientation Not on file documented as of this encounter Miscellaneous Notes * Telephone Encounter - Clifton Jose MD PhD - 02/06/2018 3:36 PM CDT It was listed as to be determined at the 05/2017 appointment because the next step was VIDEO/EEG, and you never know when someone will come in. In the discharge summary from his 07/2017 VIDEO/EEG admission, a follow up appt ~6 months after discharge was listed, so someone should have made that at thetime of discharge. He can come in next available. Jordan * Telephone Encounter - Ana Parrish RN - 02/06/2018 9:49 AM CDT YNES [place]- I spoke to the pt and relayed that he does not need to start the VPA 500mg at noon (correction: notLEV, as this nurse previously documented) and he verbalized understanding. I also relayed that he needed to be compliant with the CPAP. He stated, I can't put anything on my face or over my nose. Mycardiologist told me that if I didn't like it, I didn't have to wear it. I educated him on the purp ose of a CPAP and told him that if he still chose not to wear it, he needed to call his trouble lineman's office and his PMD's office to relay that he was not using it due to claustrophobia. I also educated him on the purpose of counseling; to manage his stress (which can trigger szs).He verbalized und erstanding and stated he would call the resources you provided to him to schedule an appt. He also asked when he was to see you again. It was noted, to be determined in the visit note from 05/2017I transferred him to scheduling to schedule an appt, per his request. I also just emailed you the ED visit records from [facility] for your review. ~Ana * Telephone Encounter - Clifton Jose MD PhD - 02/05/2018 5:32 PM CDT He is not on LEV. It's VPA. He does not need the midday 500 mg. He needs counseling. He needs to comply with CPAP. Jordan * Telephone Encounter - Ana Parrish RN - 02/05/2018 12:[address] Jose, Pt called as follow up from ED visit on 02/03/18. He had a sz while in a restaurant and he just stared after having throbbing pain to the back of his head, and calling out for help. He was taken by ambulance to the ED. No new orders except to contact you. Pt admitted that since 07/2017 EMU discharge, and after having a sleep study done, he has not been wearing his CPAP due to claustrophobia (ordered after sleep study for [facility]), has not pursued counseling/psychotherapy ( I don't think they do anygood really ), has not been sleeping well, and stated that he feels these are a new kind of sz. Reviewed EMU d/c instructions. Pt was taken off noon LEV due to his noncompliance, but he stated the ED MD told him he should take it, and the patient has agreed to try it again. Are you okay with him resuming the LEV 1000/500/1000? He continues on TPM 400mg BID. He also said he would think about seeing a counselor. Any new orders or changes? Thank you~Ana * Telephone Encounter - Courtney Jiménez MA - 02/04/2018 2:04 PM CDT Patient state that he was at the hospital again last night. Went to [facility] He states that he went in coherent and then passed out. He states that he is having a new kind of seizure. Hasn't been feeling well for the last few weeks. Get very tired, stares, freezes up and at times, doesn't hear anything. Wants call back to discuss. documented in this encounter Plan of Treatment Not on file documented as of this encounter Visit Diagnoses Not on filedocumented in this encounter Care Teams Foot Press Operator Relationship Specialty Start Date End Date Sergey Wilson MD PCP - General 09/20/16 documented as of this encounter
--- OUTSIDE RECORDS SUMMARY | 2024-05-24 02:09 | XMS_ITS | Encounter Summary ---
Author Organization [facility] Address [address] [place] [address] Phone Care Team Providers Care Maintenance Worker Swimming Pool Name Role Phone Sergey Wilson MD Primary Care Provider [phone] Reason for Visit * Reason Onset Date Comments Appointment 08/27/2018 Encounter Details Date Type Department Care Team (Late st Contact Info) Description 08/27/2018 Telephone [facility] Epilepsy [address] [facility] [address] [place] [address] [place] [address] Ana Parrish RN Appointment Social History Tobacco Use Types Packs/Day Years Used Date Smoking Tobacco: Former Alcohol Use Standard Drinks/Week Comments No 0 (1 standard drink = 0.6 oz pur e alcohol) Sex and Gender Information Value Date Recorded Sex Assigned at Not on file 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 CLINICAL ACADEMIC ALLERGIST Gender Identity Not on file Sexual Orientation Not on file documented as of this encounter Miscellaneous Notes * Telephone Encounter - Ana Parrish RN - 08/27/2018 11:20 AM CDT Received incoming call from pt stating he may not be able to make his 2pm appt with Dr Jose, as his transportation was scheduled on the wrong date. Transferred to scheduling dept with pt's consent andencouraged him to leave a detailed message and explain the situation. documented in this encounter Plan of Treatment Not on file documented as of this encounter Visit Diagnoses Not on filedocumented in this encounter Care Teams Maintenance Worker Swimming Pool Relationship Specialty Start Date End Date Sergey Wilson MD PCP - General 09/20/16 documented as of this encounter
--- OUTSIDE RECORDS SUMMARY | 2024-05-24 02:09 | XMS_ITS | Encounter Summary ---
Author Organization [facility] Healthcare Address [address] [place] [address] Care Team Providers Care Janitor Name Role Phone Sergey Wilson MD Primary Care Provider Reason for Visit * Reason Comments Headache Encounter Details Date Type Department Care Team (Late st Contact Info) Description 01/31/2018 12:11 AM CDT - 01/31/2018 5:11 AM CDT Emergency [facility] Emergency Department [address] [place] [address] Clifton Obregon MD [address] [facility] [address] [place] [address] Convulsions, unspecified convulsion type (CMS/HCC) (Primary Dx); Chronic post-traumatic headache, not intractable Discharge Disposition: Discharge to home or self care Social History Tobacco Use Types Packs/Day Years Used Date Smoking Tobacco: Former Alcohol Use Standard Drinks/Week Comments No 0 (1 standard drink = 0.6 oz pur e alcohol) Sex and Gender Information Value Date Recorded Sex Assigned at Not on file 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[employer] Gender Identity Not on file Sexual Orientation Not on file documented as of this encounter Last Filed Vital Signs Vital Sign Reading Time Taken Comments Blood Pressure 165/92 01/31/2018 5:04 AM CDT Pulse 70 01/31/2018 5:04 AM CDT Temperature 36.4 ??C (97.5 ??F) 01/30/2018 7:49 PM CD T Respiratory Rate 16 01/31/2018 5:04 AM CDT Oxygen Saturation 95% 01/31/2018 5:04 AM CDT Inhaled Oxygen Concentration - - Weight 102.5 kg (226 lb) 01/30/2018 7:49 PM CDT Height 180.3 cm (5' 11 ) 01/30/2018 7:49 PM CDT Body Mass Index 31.52 01/30/2018 7:49 PM CDT documented in this encounter Discharge Instructions * Attachments The following attachments cannot be sent through Care Everywhere. * Nonepileptic Seizures (Data Specialist) (Cuban) documented in this encounter Medications at Time of Discharge cyanocobalamin/foli c acid (vitamin [id number] acid) 2,500-400 mcg tablet,disintegrati ng 0 naproxen sodium 220 mg capsule ALEVE CAPSULE 0 [employer] CorporationTOUCH ULTRA BLUE TEST STRIP strip USE TO TEST QD 0 8 [employer] CorporationTOUCH ULTRA2 kit USE TO TEST QD 0 8 ADVAIR DISKUS 250-50 mcg/dose diskus inhaler INL 1 PUFF PO BID 6 07/24/19 1 8 03/22/20 19 albuterol (PROVENTIL,VENTOLIN ) 1.25 mg/3 mL nebulizer solution Take 1.25 mg by nebulization every 6 (six) hours as needed for wheezing or shortness of breath 07/20/19 22 aspirin 81 mg chewable tablet TRADING 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 OPERATOR 1 T PO D 5 8 03/22/20 19 cholecalciferol (VITAMIN D-3) 50,000 unit capsule 06/08/19 1 8 03/22/20 19 citalopram (CeleXA) 40 mg tablet TK 1 T PO QAM 3 8 03/22/20 19 cyclobenzaprine (FLEXERIL) 10 mg tablet TK 1 T PO BID 5 8 03/22/20 19 cyclobenzaprine (FLEXERIL) 10 mg tablet TK 1 T PO BID 3 8 02/08/20 18 dicyclomine (BENTYL) 10 mg capsule TK 1 C PO TID 0 8 03/22/20 19 divalproex ER (DEPAKOTE ER) 500 mg 24 hr tablet TAKE 2 TABS QAM, 1 TAB AT NOON, AND 2 TABS QPM 3 02/14/20 18 enalapril (VASOTEC) 5 mg tablet TK 1 [...] HOURS 3 8 03/22/20 19 topiramate (TOPAMAX) 200 mg tablet TK 2 TS PO BID 11 8 02/14/20 18 documented as of this encounter Discharge Disposition Disposition Code Departure Means Destination Discharge to home or self care documented in this encounter Progress Notes * Tessie Sandhu MSW - 01/31/2018 5:11 AM CDT 01/31/18 0540 Discharge Additional Assistance Financial assistance Cab voucher provided Does the patient need discharge transport arranged? Yes Has discharge transport been arranged? Yes Details of Transportation SW referred to pt by RN re: transportation assistance. SW met with pt andconfirmed address ([address] [place] [address]). SW notes pt is pt pay and has not received transportation assistance within the last 6 months. SW explained transportation policy to pt and provided pt with a cab voucher. No further assistance needed at this time What day is the transport expected? 01/31/18 What time is the transport expected? 0541 Discharge Transportation Communication Mode of transport has been discussed with the patient/family. All are agreeable to the plan and understand their responsibilities to ensure the safe transfer. No further CM/SW intervention is anticipated at this time. documented in this encounter ED Notes * Etienne Dejesus MD - 01/31/2018 2:59 AM CDT HPI Chief Complaint Patient presents with ??? 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 Jose in Neurology. He presents with increasing frequency of his non-epileptiform events over the past 2 months, currently having them 3-4 times a day (increased from 1- 2 x/day previously). Patient's seizures are characterized by staring spells and episodes of non-responsiveness. He was last seen by Dr. Jose in May 2017 and his most recent video EEG was 06/16/15. He is on depakote and topamax as antiepileptic drugs. Patient also complains of headaches 2/2 childhood head trauma. They are posterior, described as tingling and pounding, last as briefly as 5 seconds or as long as a day, have associated nausea and dizziness. Denies vomiting, photophobia, phonophobia. History provided by: Patient Patient History There are no active problems to display for this patient. Past Medical History: Diagnosis Date ??? Anxiety disorder Anxiety - (Added by Conv) ??? Asthma ??? Hypertension ??? Personal history of other diseases of the circulatory system History of hypertension - (Added by Conv) ??? Personal history of other diseases of the respiratory system Personal history of asthma - (Added by Conv) ??? Personal history of other mental and behavioral disorders History of depression - (Added by Conv) ??? Reflux esophagitis Chronic Reflux Esophagitis - (Added by Conv) ??? Seizures (CMS/HCC) Past Surgical History: Procedure Laterality Date ??? CARDIAC PACEMAKER PLACEMENT Pacemaker Placement - (Added by Conv) ??? MT CRANIOT W BONE FLAP FOR AMYGDALOHIPPOCAMPECTOMY Craniotomy For Amygdalohippocampectomy - (Added by Conv) Family History Problem Relation Age of Onset ??? Brain cancer Brother Brain tumor - (Added by ) Social History Substance Use Topics ??? Smoking status: Former Smoker ??? Smokeless tobacco: Not on file ??? Alcohol use No Social History Social History Narrative ??? No narrative on file Review of Systems Review of Systems Eyes: Negative for photophobia. Neurological: Positive for seizures, syncope and headaches. Negative for dizziness. All other systems reviewed and are negative. Physical Exam ED Triage Vitals [01/30/181948] Temp Pulse Resp BP SpO2 36.4 ??C (97.5 ??F) 78 18 127/76 97 % Temp src Heart Rate Source Patient Position BP Location FiO2 (%) Oral -- -- -- -- Physical Exam Constitutional: He is oriented to person, place, and time. He appears well- developed. No distress. HENT: Head: Normocephalic and atraumatic. Right Ear: External ear normal. Left Ear: External ear normal. Nose: Nose normal. Eyes: Pupils are equal, round, and reactive to light. Conjunctivae are normal. No scleral icterus. Neck: Normal range of motion. Neck supple. Cardiovascular: Normal rate, regular rhythm, normal heart sounds and intact distal pulses. Pulmonary/Chest: Effort normal and breath sounds normal. No respiratory distress. Abdominal: Soft. Bowel sounds are normal. He exhibits no distension. There is no tenderness. Neurological: He is alert and oriented to person, place, and time. He displays normal reflexes. No cranial nerve deficit or sensory deficit. He exhibits normal muscle tone. Coordination normal. Skin: Skin is warm and dry. Psychiatric: He has a normal mood and affect. MDM MDM Number of Diagnoses or Management Options Chronic post-traumatic headache, not intractable: minor Convulsions, unspecified convulsion type (CMS/HCC): Diagnosis management comments: #Non-epileptic events Patient is describing increased frequency of events for which he has previously been evaluated in the outpatient setting. There may be organic stressors causing increased frequency of these events that will be ruled out with basic labs (BMP, CBC). Additionally, check depakote level. Touched base with neurology, Dr. Jose will be made aware. Patient will be provided with seizure clinic phone number ) to arrange for follow up. #Headache Headaches are at patient's baseline. No new or red-flag symptoms. -Motrin 600 mg once Amount and/or Complexity of Data Reviewed Clinical lab tests: ordered Decide to obtain previous medical records or to obtain history from someone other than the patient:yes Review and summarize past medical records: yes Attending Summary of Care Convulsions, unspecified convulsion type (CMS/HCC) Chronic post-traumatic headache, not intractable Etienne Dejesus MD Resident 01/31/18 0439 Cosigned by Clifton Obregon MD at 02/08/2018 7:09 AM CDT Associated attestation - Clifton Obregon MD - 02/08/2018 7:09 AM CDT I, Clifton Obregon MD, have seen and examined the patient. I agree with the findings and plan of care, unless specified otherwise in my note, as documented in the resident's note. * Obed Hernandez RN - 01/31/2018 12:11 AM CDT Bed: ED2-27 Expected date: Expected time: Means of arrival: Ambulance Comments: Obed Hernandez RN 01/31/18 0011 * Arabella Colon RN - 01/30/2018 7:51 PM CDT Patient presents to the ED with complaints of tingling in the back of the head that has been going on for years. Pt reports history of seizures due to trauma when he was a child. Pt states he had surgery in 2012 to stop the seizures. He reports he does having episodes of staring and going blank since the surgery with his last episode being today. Pt seing Dr. Tucker Neurologist at [facility] in [facility] today. Pt is currently A&OX4, in no distress, has no neurological deficits, and [facility] documented in this encounter Plan of Treatment Not on file documented as of this encounter Procedures Procedure Name Priority Date/Time Associated Diagnosis Comments VALPROIC ACID LEVEL, TOTAL STAT 01/31/2018 2:54 AM CDT DIFFERENTIAL AUTO STAT 01/31/2018 2:5 2 AM CDT CBC WITH AUTO DIFFERENTIAL STAT 01/31/2018 2:52 AM CDT BASIC METABOLIC PANEL Routine Gen Lab 01/31/2018 2:35 AM CDT documented in this encounter Results * (ABNORMAL) Valproic acid level, total (01/31/2018 2:54 AM CDT) Valproic Acid 24.0(L) 50.0 - 100.0 mcg/mL JOHANNY MARTINEZ Comment: Interpretive Data Therapeutic or toxic effects of anticonvulsant drugs may occur at different concentrations in different patients and the correlation between dose and clinical effect must be evaluated individually. Current interpretative data was last revised on 13. Blood specimen (specimen) 01/31/2018 2:54 AM CDT 01/31/2018 3:12 AM CDT Narrative [facility] - 01/31/2018 3:38 AM CDT THE BJ COLLECTION LOCATION IS [facility] ED2-27 us Etienne Dejesus MD PhD LAB BLOOD ORDERABLES F inal Result [facility] [address] [facility] Department [place] [address] * Differential, auto (01/31/2018 2:52 AM CDT) Neutrophil abs 2.3 1.7 - 6.5 K/cumm [facility] Imm gran abs 0.0 0.0 - 0.1 K/cumm [facility] Lymphocyte abs 3.1 0.8 - 3.3 K/cumm [facility] Monocyte abs 0.5 0.2 - 0.8 K/cumm [facility] Eosinophil abs 0.2 0.0 - 0.5 K/cumm [facility] Basophil abs 0.0 0.0 - 0.1 K/cumm [facility] Neutrophil pct 37.1 % [facility] Comment: Interpretive Data Percent cell count reference ranges are not reported, since discordance with absolute values may lead to misinterpretation of CBC data. Current Interpretive Data was last revised on 2017. Imm gran pct 0.8 % [facility] Comment: Interpretive Data Percent cell count reference ranges are not reported, since discordance with absolute values may lead to misinterpretation of CBC data. Current Interpretive Data was last revised on 2017. Lymphocyte pct 50.1 % [facility] Comment: Interpretive Data Percent cell count reference ranges are not reported, since discordance with absolute values may lead to misinterpretation of CBC data. Current Interpretive Data was last revised on 2017. Monocyte pct 7.9 % [facility] Comment: Interpretive Data Percent cell count reference ranges are not reported, since discordance with absolute values may lead to misinterpretation of CBC data. Current Interpretive Data was last revised on 2017. Eosinophil pct 3.6 % [facility] Comment: Interpretive Data Percent cell count reference ranges are not reported, since discordance with absolute values may lead to misinterpretation of CBC data. Current Interpretive Data was last revised on 2017. Basophil pct 0.5 % [facility] Comment: Interpretive Data Percent cell count reference ranges are not reported, since discordance with absolute values may lead to misinterpretation of CBC data. Current Interpretive Data was last revised on 2017. Blood specimen (specimen) 01/31/2018 2:52 AM CDT 01/31/2018 3:13 AM CDT Narrative [facility] - 01/31/2018 3:19 AM CDT us Etienne Dejesus MD PhD LAB BLOOD ORDERABLES F inal Result [facility] Department [place] [address] * (ABNORMAL) CBC with auto differential (01/31/2018 2:52 AM CDT) Pathologist [facility] WBC 6.1 3.8 - 9.9 K/cumm [facility] Hgb 13.9 13.0 - 17.5 g/dL [facility] Hct 39.6 38.9 - 50.3 % [facility] Plt 145(L) 150 - 400 K/cumm [facility] MPV 9.4 9.1 - 12.3 fL [facility] RBC 4.31 4.30 - 5.80 M/cumm [facility] MCV 91.9 81.3 - 96.4 fL [facility] MCH 32.3 27.1 - 33.3 pg [facility] MCHC 35.1 32.3 - 35.7 g/dL [facility] RDW CV 12.2 11.1 - 14.9 % [facility] RDW SD 40.8 35.7 - 48.1 fL [facility] NRBC abs 0.00 0.00 - 0.01 K/cumm [facility] Blood specimen (specimen) 01/31/2018 2:52 AM CDT 01/31/2018 3:13 AM CDT Narrative [facility]NY [facility] - 01/31/2018 3:19 AM CDT THE BJ COLLECTION LOCATION IS [facility] ED227 us Etienne Dejesus MD PhD LAB BLOOD ORDERABLES F inal Result Performing Organization Address [facility]/ZIP Co de Phone Number [facility] Department [place] [address] * (ABNORMAL) Basic metabolic panel (01/31/2018 2:35 AM CDT) [facility] Sodium 137 135 - 145 mmol/L [facility] Potassium, pl 3.8 3.3 - 4.9 mmol/L [facility] Chloride 107 97 - 110 mmol/L [facility] CO2 20(L) 22 - 32 mmol/L [facility] Anion gap 10 2 - 15 mmol/L [facility] BUN 10 8 - 25 mg/dL [facility] Creatinine 0.62(L) 0.80 - 1.30 mg/dL [facility] Glucose 188 70 - 199 mg/dL [facility] Comment: Interpretive Data Fasting glucose [...] 2017. Calcium 9.2 8.5 - 10.3 mg/dL [facility] Blood specimen (specimen) 01/31/2018 2:35 AM CDT 01/31/2018 4:01 AM CDT Narrative JOHANNY [facility] - 01/31/2018 4:29 AM CDT us Notinfile Unknown LAB BLOOD ORDERABLES Final Res [facility] Department [place] [address] documented in this encounter Visit Diagnoses Diagnosis Convulsions, unspecified convulsion type (HCC)- Primary Chronic post-traumatic headache, not intractable documented in this encounter Administered Medications Inactive Administered Medications - up to 3 most recent administrations Medication Order MAR Action Action Date Dose Rate Site ibuprofen (ADVIL,MOTRIN) tablet 600 mg 600 mg, oral, Once, On [place] 01/31/18 at 0226, For 1 dose Given 01/31/2018 2:36 AM CDT 600 mg documented in this encounter Active and Recently Administered Medications Times are shown in CDT. Scheduled Medication Order 01/29/2018 01/30/2018 01/31/2018 ibuprofen (ADVIL,MOTRIN) tablet 600 mg (COMPLETED) 600 mg, oral, Once, On [place] 01/31/18 at 0226, For 1 dose 0236 (Given - Provid er: August Yani Hair RN) documented in this encounter Orders Medications Ordered That Geo ht Not Have Been Administered Count Last Ordered Date First Ordered Date ibuprofen (ADVIL,MOTRIN) tablet 600 mg 1 Nursing Count Last Ordered Date First Orde red Date NURSING COMMUNICATION 1 01/30/2018 documented in this encounter Care Teams Janitor Relationship Specialty Start Date End Date Sergey Wilson MD PCP - General 09/20/16 documented as of this encounter
--- OUTSIDE RECORDS SUMMARY | 2024-05-24 02:09 | XMS_ITS | Encounter Summary ---
Author Organization [facility] Healthcare Address [address] [place] [address] Care Team Providers Care Professional Builder Name Role Phone Sergey Wilson MD Primary Care Provider [phone] Reason for Visit * Reason Comments Syncope Encounter Details Date Type Department Care Team (Late st Contact Info) Description 05/23/2018 2:22 PM BOILER WASHER - 05/23/2018 8:24 PM [facility] Emergency Department [address] [place] [address] [place] [id number] [place] [address] Syncope and collapse (Primary Dx) Discharge Disposition: Discharge to home or self care Social History Tobacco Use Types Packs/Day Years Used Date Smoking Tobacco: Former Alcohol Use Standard Drinks/Week Comments No 0 (1 standard drink = 0.6 oz pur e alcohol) Sex and Gender Information Value Date Recorded Sex Assigned at Not on file 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 BOILER WASHER Gender Identity Not on file Sexual Orientation Not on file documented as of this encounter Last Filed Vital Signs Vital Sign Reading Time Taken Comments Blood Pressure 109/76 05/23/2018 8:10 PM BOILER WASHER Pulse 74 05/23/2018 8:10 PM BOILER WASHER Temperature 36.6 ??C (97.9 ??F) 05/23/2018 2:26 PM CS T Respiratory Rate 23 05/23/2018 8:10 PM BOILER WASHER Oxygen Saturation 95% 05/23/2018 8:10 PM BOILER WASHER Inhaled Oxygen Concentration - - Weight - - Height - - Body Mass Index - - documented in this encounter Discharge Instructions * Discharge Instructions* Lexy Gibbs MD - 05/23/2018 7:19 PM BOILER WASHER 1. Continue your medications as prescribed 2. Return if symptoms get worse ER WASHER * Attachments The following attachments cannot be sent through Care Everywhere. * Syncope, Unk Cause ([place]) documented in this encounter Medications at Time of Discharge cyanocobalamin/foli c acid (vitamin U59-wwlmr acid) 2,500-400 mcg tablet,disintegrati ng 0 naproxen sodium 220 mg capsule ALEVE CAPSULE 0 [employer] ULTRA BLUE TEST STRIP strip USE TO TEST QD 0 8 [employer]CH ULTRA2 kit USE TO TEST QD 0 8 ADVAIR DISKUS 250-50 mcg/dose diskus inhaler INL 1 PUFF PO BID 6 07/24/19 1 8 03/22/20 19 albuterol (PROVENTIL,VENTOLIN ) 1.25 mg/3 mL nebulizer solution Take 1.25 mg by nebulization every 6 (six) hours as needed for wheezing or shortness of breath 07/20/19 22 aspirin 81 mg chewable tablet ASSESSMENT MANAGER 1 T PO D 5 8 03/22/20 [...] documented in this encounter ED Notes * Lexy Gibbs MD - 05/23/2018 2:25 PM CST HPI Chief Complaint Patient presents with ??? Syncope HPI 7:42 PM 05/23/18 Dennis Branch is a 53 y.o. male with PMHx of seizures, depression, HTN, anxiety, asthma, cardiac loop recorder, hx of craniotomy presenting to the ED via EMS. Per EMS, pt was eating at [employer] and had a syncopal episode which lasted 10-15 seconds. Pt states that he did not fallor hit his head. He notes that prior to the episode, he felt dizzy and something was wrong with myhead. He currently c/o fatigue & generalized weakness and states his speech is a little slowerthan usual but he is not having difficulty with slurred speech. No incontinence. No tongue biting. Per pt, he has a hx of syncopal episodes and he reports the last episode was not very long ago. He reports that he is compliant with his seizure medication (Topomax and Depakote). Pt denies illicit drug use or alcohol use. There are no other complaints at this time. Pt had two additional episode of unresponsiveness during interview in his ED room which lasted approximately 20 seconds. Social History: Former smoker PCP: Dr. Deutsch Cardio: Dr. Carlos Neuro: Dr. Jose Pt visited ED on 03/26/18 for evaluation after seizure-like activity. He was discharged home with no new medication changes. Patient last saw his neurologist, Dr. Jose, [...] Systems Constitutional: Positive for fatigue. Negative for chills, diaphoresis, fever and unexpected weightchange. HENT: Negative for congestion, sinus pressure and sore throat. Eyes: Negative. Respiratory: Negative for cough, chest tightness and shortness of breath. Cardiovascular: Negative for chest pain and leg swelling. Gastrointestinal: Negative for abdominal pain, diarrhea, nausea, rectal pain and vomiting. Endocrine: Negative for polydipsia, polyphagia and polyuria. No history of diabetes Genitourinary: Negative for flank pain, frequency, hematuria and urgency. Musculoskeletal: Negative for back pain and neck pain. Skin: Negative for rash. Allergic/Immunologic: Negative for food allergies. Neurological: Positive for syncope, speech difficulty (slower than normal) and weakness. Tremors: generalized. All other systems reviewed and are negative. Physical Exam ED Triage Vitals Temp Pulse Resp BP SpO2 05/23/18 1426 05/23/18 1425 05/23/18 1425 05/23/18 1425 05/23/18 1426 36.6 ??C (97.9 ??F) 83 12 124/84 100 % Temp src Heart Rate Source Patient Position BP Location FiO2 (%) 05/23/18 1426 -- -- -- -- Oral Physical Exam Constitutional: He is oriented to person, place, and time. He appears well- developed and well-nourished. Slow to answer HENT: Head: Normocephalic and atraumatic. Right Ear: External ear normal. Left Ear: External ear normal. Mouth/Throat: No oropharyngeal exudate. Eyes: Pupils are equal, round, and reactive to light. Conjunctivae and EOM are normal. No nsytagmus Neck: Normal range of motion. Neck supple. No JVD present. Cardiovascular: Normal rate, regular rhythm, normal heart sounds and intact distal pulses. Exam reveals no gallop and no friction rub. No murmur heard. Loop recorder in left chest Pulmonary/Chest: Effort normal and breath sounds normal. No respiratory distress. He has no wheezes. Abdominal: Soft. Bowel sounds are normal. He exhibits no distension and no mass. There is no tenderness. There is no guarding. Ecchymosis from previous blood thinner shots Musculoskeletal: Normal range of motion. He exhibits no edema, tenderness or deformity. Lymphadenopathy: He has no cervical adenopathy. Neurological: He is alert and oriented to person, place, and time. No cranial nerve deficit. Coordination normal. Slow to answer questions No focal seizure + generalized weakness Skin: Skin is warm and dry. Capillary refill takes less than 2 seconds. No rash noted. No erythema.No pallor. Psychiatric: He has a normal mood and affect. Nursing note and vitals reviewed. Procedures MDM Labs Reviewed COMPREHENSIVE METABOLIC PANEL - Abnormal Result Value Sodium 135 Potassium, pl 4.7 Chloride 99 CO2 21 (*) Anion Gap 15 BUN 14 Creatinine 0.59 (*) Glucose 176 Calcium 9.6 Bilirubin, total 0.3 Protein, pl 7.5 Albumin 4.1 Alk phos 94 ALT 148 (*) AST 234 (*) Narrative: DIFFERENTIAL AUTO - Abnormal Neutrophil absolute 5.0 Immature granulocyte absolute 0.2 (*) Lymphocytes absolute 2.3 Monocyte absolute 0.5 Eosinophils absolute 0.0 Basophils, abs 0.1 Neutrophils 62.2 Immature granulocytes 2.1 Lymphocytes 27.9 Monocytes 6.5 Eosinophils 0.6 Basophils 0.7 Narrative: VALPROIC ACID LEVEL, TOTAL - Abnormal Valproic Acid 48.1 (*) Narrative: URINALYSIS AND REFLEX TO MICROSCOPIC AND CULTURE CBC WITH AUTO DIFFERENTIAL WBC 8.1 Hgb 16.1 Hct 46.0 Plt 191 MPV 9.8 RBC 5.07 MCV 90.7 MCH 31.8 MCHC 35.0 RDW CV 11.9 RDW SD 39.6 NRBC Abs 0.00 Narrative: PRO B-TYPE NATRIURETIC PEPTIDE NT-proBNP 6 Narrative: TROPONIN T, BASELINE 5TH GEN Troponin T, Baseline 5th Gen <6 Narrative: TROPONIN T, 3 HOUR 5TH GEN Troponin T, 3 Hr 5th Gen <6 Narrative: EGFR GFR 115 Narrative: TROPONIN T, 6 HOUR 5TH GEN POCT GLUCOSE DEVICE Glucose, POC, bld 165 Narrative: POCT GLUCOSE DEVICE Glucose, POC, bld 140 Narrative: CT Head WO Contrast Final Result 1. No acute finding is seen in the brain. 2. Postsurgical changes from right temporal craniotomy and encephalomalacia in the right temporal lobe. 3. Mild diffuse cerebral atrophy. 4. Acute left maxillary sinusitis. Electronically signed by: Dennis Vasquez M.D. XR Chest 1 Vw Portable Final Result No acute cardiopulmonary finding. Electronically signed by: Chilango Levin M.D. BP 141/89 Pulse 78 Temp 36.6 ??C (97.9 ??F) (Oral) Resp 13 SpO2 95% MDM Number of Diagnoses or Management Options Syncope and collapse: new and requires workup Diagnosis management comments: Pt with syncope, pt had negative cardiac workup, non focal neuro exam and head Ct. ? Psych component to symptoms. Amount and/or Complexity of Data Reviewed Clinical lab tests: reviewed Tests in the radiology section of CPT??: reviewed Decide to obtain previous medical records or to obtain history from someone other than the patient:yes Risk of Complications, Morbidity, and/or Mortality Presenting problems: high Diagnostic procedures: moderate Management options: moderate ED Course as of May 23 1941 Time: 05/23 1801 Comment: Rechecked patient. Condition is improved. Pending troponin. By: Isabelle Laws Clinical Impression: Syncope and collapse This note is prepared by Isabelle Laws, acting as a Scribe for Michael Gibbs MD. Signed by fadi Vences, 05/23/2018, 7:42 PM. I, Lexy Gibbs MD, have personally preformed the services described in the documentation, reviewed the documentation, as recorded by the scribe in my presence, and it accurately and completely records my words and actions. Lexy Gibbs MD 01/10/19 1942 ER WASHER * Aleyda Yancey, SYLVIA - 05/23/2018 2:23 PM CST Pt arrives to ED via EMS. Per EMS report pt was eating dinner at [facility] and had a syncopal episode that lasted about 10-15 seconds. Pt states that he did not fall nor hit his head. During interview pt had about a 20 second period of unresponsiveness. Pt unable to follow commands respond to sternal rub or voice. After episode pt was alert and talking. Pt VSS. ERP notified. ER WASHER * Nuha Huerta RN - 05/23/2018 2:22 PM CST Bed: ED03 Expected date: 05/23/18 Expected time: 2:02 PM Means of arrival: Ambulance Comments: 55 M syncope Nuha Huerta RN 05/23/18 1422 ER WASHER documented in this encounter Plan of Treatment Not on file documented as of this encounter Procedures Procedure Name Priority Date/Time Associated Diagnosis Comments URINALYSIS AND REFLEX TO MICROSCOPIC AND CULTURE STAT 05/23/2018 6:48 PM BOILER WASHER URINALYSIS, MICROSCOPIC ONLY STAT 05/23/2018 6:48 PM BOILER WASHER POCT GLUCOSE DEVICE Routine 05/23/2018 5 :47 PM BOILER WASHER TROPONIN T, 3 HOUR 5TH GEN Timed 05/23/2018 5:[address] HEAD WO CONTRAST ED 05/23/2018 4 :27 PM BOILER WASHER XR CHEST 1 VIEW ED 05/23/2018 3:23 PM BOILER WASHER POCT GLUCOSE DEVICE Routine 05/23/2018 2 :33 PM BOILER WASHER TROPONIN T 5TH GEN SERIES (BASELINE, 3HR, 6HR) STAT 05/23/2018 2:32 PM BOILER WASHER EGFR STAT 05/23/2018 2:32 PM BOILER WASHER DIFFERENTIAL AUTO STAT 05/23/2018 2:3 2 PM BOILER WASHER PRO B-TYPE NATRIURETIC PEPTIDE STAT 05/23/2018 2:32 PM BOILER WASHER CBC WITH AUTO DIFFERENTIAL STAT 05/23/2018 2:32 PM BOILER WASHER VALPROIC ACID LEVEL, TOTAL Timed 05/23/2018 2:32 PM BOILER WASHER COMPREHENSIVE METABOLIC PANEL STAT 05/23/2018 2:32 PM BOILER WASHER ECG 12-LEAD STAT 05/23/2018 2:19 PM BOILER WASHER documented in this encounter Results * (ABNORMAL) Urinalysis, microscopic only (05/23/2018 6:48 PM BOILER WASHER) WBC, ur 0-5 0 - 5 /HPF CERNER RBC, ur 0-2 0 - 2 /HPF CERNER CH Mucous, ur Present(A) CERNER CH Urine 05/23/2018 6:48 PM BOILER WASHER 05/23/2018 6:52 PM BOILER WASHER Narrative CERNER - 05/23/2018 8:02 PM BOILER WASHER us Lexy Gibbs MD LAB URINE ORDERABLES F inal Result [facility] [address] Department [place] [address] * (ABNORMAL) Urinalysis reflex to microscopic and culture Urine (05/23/2018 6:48 PM BOILER WASHER) Color, ur Yellow Yellow CERNER CH Clarity, ur Clear Clear CERNER CH Specific gravity, ur 1.020 1.010 - 1.025 CERNER CH pH, urine 6.0 CERNER CH Protein, ur ql 1+(A) Negative CERNER CH Glucose, ur ql Negative Negative CERNER CH Ketones, ur Trace Negative CERNER CH Bilirubin, ur Negative Negative CERNER CH Blood, ur Negative Negative CERNER CH Urobilinogen, ur 2.0(A) <2.0 mg/dL CERNER CH Nitrite, ur Negative Negative CERNER CH Leukocyte esterase, ur Negative Negative CERNER CH Urine 05/23/2018 6:48 PM BOILER WASHER 05/23/2018 6:52 PM BOILER WASHER Narrative CERNER CH - 05/23/2018 8:05 PM BOILER WASHER ?? Urine pH is affected by diet, medications, systemic acid-base disturbances, and renal tubular function. ??pH may affect urinary stone formation. ??For example, urine pH below 6.0 may help reduce the tendency for calcium phosphate stones and pH greater than 6.0 may reduce the tendency for uric acid stone formation. Source: [facility] [place]. Last revised 05-24-2017 Lexy Gibbs MD LAB MICROBIOLOGY - GEN ERAL ORDERABLES Final Result Performing Organization Address City/[facility] Co de Phone Number JOHANNY [address] [place] [address] * POCT glucose (05/23/2018 5:47 PM BOILER WASHER) Glucose, POC 140 70 - 199 mg/dL [facility] Blood specimen (specimen) 05/23/2018 5:47 PM BOILER WASHER 05/23/2018 5:47 PM BOILER WASHER Narrative CERNER CH - 05/23/2018 5:58 PM BOILER WASHER Lexy Gibbs MD LAB POCT ORDERABLES - DEVICE Final Result Performing Organization Address City/[facility]/ZIP Co de Phone Number JOHANNY VALENCIA [address] [place] [address] * Troponin T, 3 Hour 5th Gen (05/23/2018 5:13 PM BOILER WASHER) Troponin T, 3 Hr 5th Gen <6 6 - 22 ng/L JOHANNY Blood specimen (specimen) 05/23/2018 5:13 PM BOILER WASHER 05/23/2018 5:27 PM BOILER WASHER Narrative JOHANNY VALENCIA - 05/23/2018 6:05 PM BOILER WASHER Lexy Gibbs MD LAB BLOOD ORDERABLES F inal Result JOHANNY [address] Department [place] [address] * CT Head WO Contrast (05/23/2018 4:27 PM BOILER WASHER) Anatomical Region Laterality Modality Head and Neck N/A Computed Tomogra phy 05/23/2018 4:30 PM BOILER WASHER Impressions 05/23/2018 4:34 PM BOILER WASHER 1. ??No acute finding is seen in the brain. 2. ??Postsurgical changes from right temporal craniotomy and encephalomalacia in the right temporal lobe. 3. ??Mild diffuse cerebral atrophy. 4. ??Acute left maxillary sinusitis. Electronically signed by: Dennis Vasquez M.D. Narrative 05/23/2018 4:34 PM BOILER WASHER RESULT: HISTORY: Syncope. EXAMINATION: CT HEAD WO CONTRAST DATE: 05/23/2018 4:20 PM COMPARISON: 10/20/2017 TECHNIQUE: Transaxial computed tomographic images of the head were obtained without intravenous contrast. FINDINGS: There are postsurgical changes from a right temporal craniotomy. There is encephalomalacia in the right temporal lobe which is unchanged from previous. ??No evidence of intracranial hemorrhage or mass lesion. ??There is mild diffuse cerebral atrophy. ??The ventricles are normal in size there is no shift of midline structures. ??There is mucosal thickening and a small amount of fluid in the left maxillary antrum. ??The paranasal sinuses and mastoid air cells are otherwise clear. Procedure Note Dennis Vasquez MD - 05/23/2018 RESULT: HISTORY: Syncope. EXAMINATION: CT HEAD WO CONTRAST DATE: 05/23/2018 4:20 PM COMPARISON: 10/20/2017 TECHNIQUE: Transaxial computed tomographic images of the head were obtained without intravenous contrast. FINDINGS: There are postsurgical changes from a right temporal craniotomy. There is encephalomalacia in the right temporal lobe which is unchanged from previous. No evidence of intracranial hemorrhage or mass lesion. There is mild diffuse cerebral atrophy. The ventricles are normal in size there is no shift of midline structures. There is mucosal thickening and a small amount of fluid in the left maxillary antrum. The paranasal sinuses and mastoid air cells are otherwise clear. IMPRESSION: 1. No acute finding is seen in the brain. 2. Postsurgical changes from right temporal craniotomy and encephalomalacia in the right temporal lobe. 3. Mild diffuse cerebral atrophy. 4. Acute left maxillary sinusitis. Electronically signed by: Dennis Vasquez M.D. Lexy Gibbs MD IMG CT PROCEDURES Adeline l Result * XR Chest 1 Vw Portable (05/23/2018 3:23 PM BOILER WASHER) Anatomical Region Laterality Modality Body, Chest N/A Computed Radiogr aphy 05/23/2018 3:25 PM BOILER WASHER Impressions 05/23/2018 3:28 PM BOILER WASHER No acute cardiopulmonary finding. Electronically signed by: Chilango Levin M.D. Narrative 05/23/2018 3:28 PM BOILER WASHER RESULT: EXAMINATION: AP PORTABLE CHEST RADIOGRAPH Date: 05/23/2018 3:05 PM History: Syncope Comparison: 11/29/2017. Findings: Normal heart size. ??No pleural effusion, vascular congestion, focal consolidation, or pneumothorax. ??Left chest loop recorder device. ??Left basilar atelectasis. ??No acute osseous finding. Procedure Note Chilango Levin MD - 05/23/2018 RESULT: EXAMINATION: AP PORTABLE CHEST RADIOGRAPH Date: 05/23/2018 3:05 PM History: Syncope Comparison: 11/29/2017. Findings: Normal heart size. No pleural effusion, vascular congestion, focal consolidation, or pneumothorax. Left chest loop recorder device. Left basilar atelectasis. No acute osseous finding. IMPRESSION: No acute cardiopulmonary finding. Electronically signed by: Chilango Levin M.D. Lexy Gibbs MD IMG XR PROCEDURES Adeline l Result * POCT glucose (05/23/2018 2:33 PM BOILER WASHER) Glucose, POC 165 70 - 199 mg/dL [facility] Blood specimen (specimen) 05/23/2018 2:33 PM BOILER WASHER 05/23/2018 2:33 PM BOILER WASHER Narrative [facility] - 05/23/2018 2:36 PM BOILER WASHER Notinfile Unknown LAB POCT ORDERABLES - DEVICE F inal Result [facility] [address] Department [place] [address] * eGFR (05/23/2018 2:32 PM BOILER WASHER) eGFR 115 mL/min/1.7 3 m2 [facility] Comment: Interpretive Data Reference Interval Normal ?>/= 90 mL/min/1.73m2 Mildly decreased* ? 60 - 89 mL/min/1.73m2 Mildly to moderately decreased ?45 - 59 mL/min/1.73m2 Moderately to severely decreased ??30 - 44 mL/min/1.73m2 Severely decreased ?15 - 29 mL/min/1.73m2 Kidney Failure ?< 15 ??mL/min/1.73m2 *Relative to young adult level If -Bolivian multiply value by 1.16. Estimated glomerular filtration [...] was last reviewed 2015. Blood specimen (specimen) 05/23/2018 2:32 PM BOILER WASHER 05/23/2018 3:12 PM BOILER WASHER Narrative JOHANNY - 05/23/2018 3:32 PM BOILER WASHER Lexy Gibbs MD LAB BLOOD ORDERABLES F inal Result Performing Organization Address [facility]/ZIP Co de Phone Number [facility] [address] [place] [address] * (ABNORMAL) Valproic acid level, total (05/23/2018 2:32 PM BOILER WASHER) Pathologist [facility] Valproic Acid 48.1(L) 50.0 - 100.0 mcg/mL [facility] Blood specimen (specimen) 05/23/2018 2:32 PM BOILER WASHER 05/23/2018 3:12 PM BOILER WASHER Narrative [facility] - 05/23/2018 3:54 PM BOILER WASHER Lexy Gibbs MD LAB BLOOD ORDERABLES F inal Result Performing Organization Address [facility] Co de Phone Number [facility] [address] [place] [address] * (ABNORMAL) Differential, auto (05/23/2018 2:32 PM BOILER WASHER) Neutrophil abs 5.0 1.7 - 6.5 K/cumm [facility] Imm gran abs 0.2(H) 0.0 - 0.1 K/cumm [facility] Lymphocyte abs 2.3 0.8 - 3.3 K/cumm [facility] Monocyte abs 0.5 0.2 - 0.8 K/cumm [facility] Eosinophil abs 0.0 0.0 - 0.5 K/cumm [facility] Basophil abs 0.1 0.0 - 0.1 K/cumm [facility] Neutrophil pct 62.2 % [facility] Comment: Interpretive Data Percent cell count reference ranges are not reported, since discordance with absolute values may lead to misinterpretation of CBC data. Current Interpretive Data was last revised on 2017. Imm gran pct 2.1 % [facility] Comment: Interpretive Data Percent cell count reference ranges are not reported, since discordance with absolute values may lead to misinterpretation of CBC data. Current Interpretive Data was last revised on 2017. Lymphocyte pct 27.9 % [facility] Comment: Interpretive Data Percent cell count reference ranges are not reported, since discordance with absolute values may lead to misinterpretation of CBC data. Current Interpretive Data was last revised on 2017. Monocyte pct 6.5 % [facility] Comment: Interpretive Data Percent cell count reference ranges are not reported, since discordance with absolute values may lead to misinterpretation of CBC data. Current Interpretive Data was last revised on 2017. Eosinophil pct 0.6 % [facility] Comment: Interpretive Data Percent cell count reference ranges are not reported, since discordance with absolute values may lead to misinterpretation of CBC data. Current Interpretive Data was last revised on 2017. Basophil pct 0.7 % [facility] Comment: Interpretive Data Percent cell count reference ranges are not reported, since discordance with absolute values may lead to misinterpretation of CBC data. Current Interpretive Data was last revised on 2017. Blood specimen (specimen) 05/23/2018 2:32 PM BOILER WASHER 05/23/2018 2:36 PM BOILER WASHER John ORLANDO - 05/23/2018 2:41 PM BOILER WASHER Lexy Gibbs MD LAB BLOOD ORDERABLES F inal Result [facility] [address] Department [place] [address] * Troponin T, Baseline 5th Gen (05/23/2018 2:32 PM BOILER WASHER) Troponin T, Baseline 5th Gen <6 6 - 22 ng/L [facility] Blood specimen (specimen) 05/23/2018 2:32 PM BOILER WASHER 05/23/2018 2:36 PM BOILER WASHER John ORLANDO - 05/23/2018 3:32 PM BOILER WASHER us Lexy Gibbs MD LAB BLOOD ORDERABLES F inal Result JOHANNY VALENCIA [address] Department [place] [address] * Pro B-type natriuretic peptide (05/23/2018 2:32 PM BOILER WASHER) NT-proBNP 6 <=300 pg/mL JOHANNY ANNIE Comment: Interpretive Comments: A. Dyspnea in Acute [...] strain/failure (including pulmonary embolism and cor pulmonale), critial illness, renal failure, as well as advanced age. - References: 1. Christine DALTON et.al. Eur Heart J. 2006:27:330-337. 2. Domitila RW, Damien AM. J. AM Tatiana Cardiol: Cardiovasc Imag. 2009;2: 216- 225. Interpretive Data Last Revised Date: 2018. Blood specimen (specimen) 05/23/2018 2:32 PM BOILER WASHER 05/23/2018 2:36 PM BOILER WASHER Narrative CERNER - 05/23/2018 3:32 PM BOILER WASHER Lexy Gibbs MD LAB BLOOD ORDERABLES F inal Result [facility] [address] Department [place] [address] * (ABNORMAL) Comprehensive metabolic panel (05/23/2018 2:32 PM BOILER WASHER) Sodium 135 135 - 145 mmol/L CERNER Potassium, pl 4.7 3.3 - 4.9 mmol/L CERNER CH Comment:Hemolysis present. R esults may be affected. Chloride 99 97 - 110 mmol/L CERNER CO2 21(L) 22 - 32 mmol/L CERNER Anion gap 15 2 - 15 mmol/L CERNER BUN 14 8 - 25 mg/dL CERNER Creatinine 0.59(L) 0.80 - 1.30 mg/dL CERNER Glucose 176 70 - 199 mg/dL CERNER Comment: Interpretive [...] interpretive data was last revised 2017. Calcium 9.6 8.5 - 10.3 mg/dL CERNER Bilirubin, total 0.3 0.1 - 1.2 mg/dL CERNER CH Protein, pl 7.5 6.5 - 8.5 g/dL CERNER CH Albumin 4.1 3.5 - 5.0 g/dL CERNER CH Alk phos 94 40 - 130 Units/L CERNER CH ALT 148(H) 7 - 55 Units/L CERNER CH AST 234(H) 10 - 50 Units/L CERNER CH Comment:Hemolysis present. R esults may be affected. Blood specimen (specimen) 05/23/2018 2:32 PM BOILER WASHER 05/23/2018 2:36 PM BOILER WASHER Narrative JOHANNY - 05/23/2018 3:32 PM BOILER WASHER Lexy Gibbs MD LAB BLOOD ORDERABLES F inal Result JOHANNY [address] Department of Laboratories [place] [id number] * CBC with auto differential (05/23/2018 2:32 PM BOILER WASHER) Pathologist [facility] [place] WBC 8.1 3.8 - 9.9 K/cumm [facility] Hgb 16.1 13.0 - 17.5 g/dL [facility] Hct 46.0 38.9 - 50.3 % [facility] Plt 191 150 - 400 K/cumm [facility] MPV 9.8 9.1 - 12.3 fL [facility] RBC 5.07 4.30 - 5.80 M/cumm [facility] MCV 90.7 81.3 - 96.4 fL [facility] MCH 31.8 27.1 - 33.3 pg [facility] MCHC 35.0 32.3 - 35.7 g/dL [facility] RDW CV 11.9 11.1 - 14.9 % [facility] RDW SD 39.6 35.7 - 48.1 fL [facility] NRBC abs 0.00 0.00 - 0.01 K/cumm [facility] Blood specimen (specimen) 05/23/2018 2:32 PM BOILER WASHER 05/23/2018 2:36 PM BOILER WASHER Narrative [facility] - 05/23/2018 2:41 PM BOILER WASHER Lexy Gibbs MD LAB BLOOD ORDERABLES F inal Result JOHANNY VALENC[facility] [address] Department [place] [address] * ECG 12 lead (05/23/2018 2:19 PM BOILER WASHER) Patient age 53 years [facility] Interpretation Text SINUS RHYTHMLEFT ANTERIOR FASCICULAR BLOCKPoor R-wave progressionABNORMAL ECGPREVIOUS TRACIN09/23/2016 17.06No significant change compared to prior ECG [facility] Comment:Physician Interprete r Dr. Viet Luque M.D. Ventricular Rate EKG/Min 81 /min [facility] P Wave Duration 122 ms [facility] QRS-Interval (MSEC) 122 ms [facility] [place]-Interval (MSEC) 194 ms [facility] QT Interval 402 ms [facility] QTc 438 ms [facility] QTC Interval ms [facility] P [place] 46 deg [facility] QRS [place] -63 deg [facility] T [place] 59 deg [facility] 05/23/2018 2:19 PM BOILER WASHER us Lexy Gibbs MD ECG ORDERABLES Final Result Performing Organization Address [facility] Co de Phone Number [facility] [employer] [facility] documented in this encounter Visit Diagnoses Diagnosis Syncope and collapse- Primary documented in this encounter Active and Recently Administered Medications Times are shown in BOILER WASHER. Scheduled Medication Order 05/21/2018 05/22/2018 05/23/2018 ketorolac (TORADOL) injection 30 mg 30 mg, intravenous, Once, On [place] 05/23/18 at 1803, For 1 dose, Indications: Pain 1803 (Due)2022 (Not Given - Provider: Carolina Buck RN - Reason: Patient/family refused) documented in this encounter Orders Medications Ordered That Geo ht Not Have Been Administered Count Last Ordered Date First Ordered Date ketorolac (TORADOL) injection 30 mg 1 05/23 documented in this encounter Care Teams Professional Builder Relationship Specialty Start Date End Date Sergey Wilson MD PCP - General 09/20/16 documented as of this encounter
--- OUTSIDE RECORDS SUMMARY | 2024-05-24 02:09 | XMS_ITS | Encounter Summary ---
Author Organization [facility] Healthcare Address [address] [place] [address] Care Team Providers Care Erp Business Analyst Name Role Phone Sergey Wilson MD Primary Care Provider Encounter Details Date Type Department Care Team (Latest Contact Info) Description 05/23/2018 3:01 PM CREDIT CASHIER - 05/23/2018 11:59 PM CREDIT CASHIER Hospital Encounter [facility] [address] [place] [address] [place] [id number] [place] [address] Discharge Disposition: Discharge to home or self care Social History Tobacco Use Types Packs/Day Years Used Date Smoking Tobacco: Former Alcohol Use Standard Drinks/Week Comments No 0 (1 standard drink = 0.6 oz pur e alcohol) Sex and Gender Information Value Date Recorded Sex Assigned at Not on file 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 CREDIT CASHIER Gender Identity Not on file Sexual Orientation Not on file documented as of this encounter Medications at Time of Discharge cyanocobalamin/foli c acid (vitamin O72-ptnhz acid) 2,500-400 mcg tablet,disintegrati ng 0 naproxen [...] 07/20/19 22 aspirin 81 mg chewable tablet EXTRUSION DIE TEMPLATE MAKER 1 T PO D 5 8 03/22/20 [...] TK 1 T PO BID PRN 0 07/09/201 8 03/22/20 19 montelukast (SINGULAIR) 10 mg [...] Diagnosis Comments XR CHEST 1 VIEW ED 05/23/2018 3:23 PM CREDIT CASHIER documented in this encounter Results * XR Chest 1 Vw Portable (05/23/2018 3:23 PM CREDIT CASHIER) Anatomical Region Laterality Modality Body, Chest N/A Computed Radiogr aphy 05/23/2018 3:25 PM CREDIT CASHIER Impressions 05/23/2018 3:28 PM CREDIT CASHIER No acute cardiopulmonary finding. Electronically signed by: Almaz Jacob 05/23/2018 3:28 PM CREDIT CASHIER RESULT: EXAMINATION: AP PORTABLE CHEST RADIOGRAPH Date: [...] MD IMG XR PROCEDURES Adeline l Result documented in this encounter Visit Diagnoses Not on filedocumented in this encounter Care Teams Erp Business Analyst Relationship Specialty Start Date End Date Sergey Wilson MD PCP - General 09/20/16 documented as of this encounter
--- OUTSIDE RECORDS SUMMARY | 2024-05-24 02:09 | XMS_ITS | Encounter Summary ---
Author Organization [facility] Facility Care Team Providers Care Casing In Line Feeder Name Role Phone Sergey Wilson MD Primary Care Provider [phone] Encounter Details Date Type Department Care Team (Latest Contact Info) Description 06/05/2019 Travel Social History Tobacco Use Types Packs/Day Years Used Date Smoking Tobacco: Former Smokeless Tobacco: Never Alcohol Use Standard Drinks/Week Comments No 0 (1 standard drink = 0.6 oz pur e alcohol) Sex and Gender Information Value Date Recorded Sex Assigned at Not on file 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 C 13 CATAPULT OPERATOR Gender Identity Not on file Sexual Orientation Not on file documented as of this encounter Plan of Treatment Not on file documented as of this encounter Visit Diagnoses Not on filedocumented in this encounter Care Teams Casing In Line Feeder Relationship Specialty Start Date End Date Sergey Wilson MD PCP - General 09/20/16 documented as of this encounter
--- OUTSIDE RECORDS SUMMARY | 2024-05-24 02:09 | XMS_ITS | Encounter Summary ---
Author Organization [facility] Healthcare Address [address] [place] [address] Care Team Providers Care Vice President Compliance Name Role Phone Sergey Wilson MD Primary Care Provider [phone] Encounter Details Date Type Department Care Team (Late st Contact Info) Description 02/04/2018 Telephone [facility] [address] [place] [address] Danial Rodas RN Social History Tobacco Use Types Packs/Day Years Used Date Smoking Tobacco: Former Alcohol Use Standard Drinks/Week Comments No 0 (1 standard drink = 0.6 oz pur e alcohol) Sex and Gender Information Value Date Recorded Sex Assigned at Not on file 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 VIRTUALIZATION CONSULTANT Gender Identity Not on file Sexual Orientation Not on file documented as of this encounter Miscellaneous Notes * Telephone Encounter - Danial Rodas RN - 04/26/2018 8:01 AM CST Done. UALIZATION CONSULTANT documented in this encounter Plan of Treatment Not on file documented as of this encounter Visit Diagnoses Not on filedocumented in this encounter Care Teams Vice President Compliance Relationship Specialty Start Date End Date Sergey Wilson MD PCP - General 09/20/16 documented as of this encounter
--- OUTSIDE RECORDS SUMMARY | 2024-05-24 02:09 | XMS_ITS | Encounter Summary ---
Author Organization [facility] Healthcare Address [address] [place] [address] Care Team Providers Care Production Supply Equipment Tender Name Role Phone Sergey Wilson MD Primary Care Provider Encounter Details Date Type Department Care Team (Latest Contact Info) Description 12/21/2018 9:33 AM CDT - 12/21/2018 11:59 PM CDT Hospital Encounter [facility] [...] on file 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 PHYSICAL MEDICINE TEACHER Gender Identity Not on file Sexual Orientation Not on file documented as of this encounter Medications at Time of Discharge cyanocobalamin/foli c acid (vitamin W10-nhlta acid) 2,500-400 mcg tablet,disintegrati ng 0 naproxen [...] 07/20/19 22 aspirin 81 mg chewable tablet COMPUTER GRAPHIC DESIGNER 1 T PO D 5 8 03/22/20 [...] on filedocumented in this encounter Care Teams Production Supply Equipment Tender Relationship Specialty Start Date End Date Sergey Wilson MD PCP - General 09/20/16 documented as of this encounter
--- OUTSIDE RECORDS SUMMARY | 2024-05-24 02:09 | XMS_ITS | Encounter Summary ---
Author Organization [facility] Address [address] [place] [address] Phone Care Team Providers Care Carpet Or Rug Layer Helper Name Role Phone Sergey Wilson MD Primary Care Provider [phone] Encounter Details Date Type Department Care Team (Late st Contact Info) Description 12/13/2018 Telephone [facility] [address] [facility] [address] [place] [address] [place] [address] Nuha Story RN Social History Tobacco Use Types Packs/Day Years Used Date Smoking Tobacco: Former Smokeless Tobacco: Never Alcohol Use Standard Drinks/Week Comments No 0 (1 standard drink = 0.6 oz pur e alcohol) Sex and Gender Information Value Date Recorded Sex Assigned at Not on file 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 RESULTS ENGINEER Gender Identity Not on file Sexual Orientation Not on file documented as of this encounter Miscellaneous Notes * Telephone Encounter - Clifton Jose MD PhD - 12/13/2018 4:27 PM CDT Will review the records next week when they come, and if no clear evidence of epileptic seizure, then I will likely wean him back down. These sound like his Video/EEG-proven non-epileptic events. Harman * Telephone Encounter - Nuha Story RN - 12/13/2018 9:38 AM CDT Pt called to say that he was in [facility] a week and a half ago states he kept spacing out, get incoherent and then I'd black out . Pt states that a neurologist increased his TPM to 400mg bid but his depakote remained the same at 1000mg bid. Fexed request to [facility] for records, received confirmation documented in this encounter Plan of Treatment Not on file documented as of this encounter Visit Diagnoses Not on filedocumented in this encounter Care Teams Carpet Or Rug Layer Helper Relationship Specialty Start Date End Date Sergey Wilson MD PCP - General 09/20/16 documented as of this encounter
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
--- OUTSIDE RECORDS SUMMARY | 2024-05-24 02:09 | XMS_ITS | Encounter Summary ---
Author Organization [facility] Healthcare Address [address] [place] [address] Care Team Providers Care Senior Facilities Manager Name Role Phone Sergey Wilson MD Primary Care Provider [phone] Encounter Details Date Type Department Care Team (Latest Contact Info) Description 03/26/2018 12:41 PM SKIVER MACHINE OPERATOR - 03/26/2018 11:59 PM SKIVER MACHINE OPERATOR Hospital Encounter [facility] [address] [place] [address] Discharge Disposition: Discharge to home or self care Social History Tobacco Use Types Packs/Day Years Used Date Smoking Tobacco: Former Alcohol Use Standard Drinks/Week Comments No 0 (1 standard drink = 0.6 oz pur e alcohol) Sex and Gender Information Value Date Recorded Sex Assigned at Not on file 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 SKIVER MACHINE OPERATOR Gender Identity Not on file Sexual Orientation Not on file documented as of this encounter Medications at Time of Discharge cyanocobalamin/foli c acid (vitamin J93-lsiyj acid) 2,500-400 mcg tablet,disintegrati ng 0 naproxen [...] 07/20/19 22 aspirin 81 mg chewable tablet CATEGORY PLANNER 1 T PO D 5 8 03/22/20 [...] filedocumented in this encounter Care Teams Senior Facilities Manager Relationship Specialty Start Date End Date Sergey Wilson MD PCP - General 09/20/16 documented as of this encounter
--- OUTSIDE RECORDS SUMMARY | 2024-05-24 02:09 | XMS_ITS | Encounter Summary ---
Author Organization [facility] Address [address] [place] [address] Phone Care Team Providers Care Auto Tech Name Role Phone Sergey Wilson MD Primary Care Provider [phone] Encounter Details Date Type Department Care Team (Late st Contact Info) Description 02/07/2018 Orders Only [facility] Scheduling [address] [place] [address] [facility] Social History Tobacco Use Types Packs/Day Years Used Date Smoking Tobacco: Former Alcohol Use Standard Drinks/Week Comments No 0 (1 standard drink = 0.6 oz pur e alcohol) Sex and Gender Information Value Date Recorded Sex Assigned at Not on file 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 cyclobenzaprine (FLEXERIL) 10 mg tablet TK 1 T PO BID 3 11/13/2017 02/07/2018 predniSONE (DELTASONE) 20 mg tablet TK 2 TS PO ONCE D FOR 5 DAYS 0 01/08/2018 03/22/2019 meloxicam (MOBIC) 7.5 mg tablet TK 1 T PO BID PRN 0 11/19/2017 03/22/2019 added in this encounter Care Teams Auto Tech Relationship Specialty Start Date End Date Sergey Wilson MD PCP - General 09/20/16 documented as of this encounter
--- OUTSIDE RECORDS SUMMARY | 2024-05-24 02:09 | XMS_ITS | Encounter Summary ---
Author Organization [facility] Address [address] [place] [address] Phone Care Team Providers Care Hemodialysis Technician Name Role Phone Sergey Wilson MD Primary Care Provider [phone] Reason for Visit * Reason Onset Date Comments discuss meds 05/21/2018 Encounter Details Date Type Department Care Team (Late st Contact Info) Description 05/21/2018 Telephone [facility] Epilepsy [address] [facility] 6th [place] [address] [place] [address] Clifton Jose MD PhD [address] [place], [place] [id number] discuss meds Social History Tobacco Use Types Packs/Day Years Used Date Smoking Tobacco: Former Alcohol Use Standard Drinks/Week Comments No 0 (1 standard drink = 0.6 oz pur e alcohol) Sex and Gender Information Value Date Recorded Sex Assigned at Not on file 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 SPECIAL WEAPONS AND TACTICS OFFICER Gender Identity Not on file Sexual Orientation Not on file documented as of this encounter Miscellaneous Notes * Telephone Encounter - Clifton Jose MD PhD - 05/21/2018 12:04 PM SPECIAL WEAPONS AND TACTICS OFFICER There's no way that TPM would be dosed that high. He must be mistaken. Thanks for the update. Jordan IAL WEAPONS AND TACTICS OFFICER * Telephone Encounter - Ana Parrish RN - 05/21/2018 11:26 AM SPECIAL WEAPONS AND TACTICS OFFICER Dr Jose, ~FYI Pt called again from [facility] asking about speaking to you and having you manage his care while inpatient. We also received a message from Gaby in scheduling stating that pt's nurse called from [facility] stating that pt had been found unresponsive in his room and as a result, med changes were suggested. I called him back. He denied any sz activity and was concerned that the doctor on the TV from [place] (telemedicine?) wanted to increase his TPM to 800mg BID and he refused, stating, I am following one doctor's orders and that's Dr Jose. He explained that he is being treated for hyperglycemia as is BS's have been running high. He is also c/o dizziness and blurred vision and being told that it is related to his elevated blood sugars. He stated he has seen a diabeticdoctor in person and is also having his B/P managed as his B/P was 150/110 while inpt. I explainedwhat the protocol is when a pt is inpatient and he agreed to call the office when he is discharged,and that you will be notified of what the discharge orders are. I also relayed that his care team at [facility] is welcome to call the office and we will forward any questions they may have to you. He verbalized understanding. ~Thank you, Ana IAL WEAPONS AND TACTICS OFFICER * Telephone Encounter - Mahogany Rodriguez - 05/21/2018 10:59 AM SPECIAL WEAPONS AND TACTICS OFFICER Patient is still currently at [facility] he is wanting to discuss his Topamax the physician there is wanting to make changes due to his blood pressure. I explained while in patient he is under the care of that physician if that doctor has questions they can contact the office to speak with the nurse team. He thinks they will be discharging him today. IAL WEAPONS AND TACTICS OFFICER * Telephone Encounter - Mahogany Rodriguez - 05/21/2018 10:07 AM SPECIAL WEAPONS AND TACTICS OFFICER Patient Lm @ 9:34AM asking to speak with someone about his medications he has questions IAL WEAPONS AND TACTICS OFFICER documented in this encounter Plan of Treatment Not on file documented as of this encounter Visit Diagnoses Not on filedocumented in this encounter Care Teams Hemodialysis Technician Relationship Specialty Start Date End Date Sergey Wilson MD PCP - General 09/20/16 documented as of this encounter
--- OUTSIDE RECORDS SUMMARY | 2024-05-24 02:10 | XMS_ITS | Encounter Summary ---
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 0.00 - 0.14 ng/mL Indeterminate: ?0.15 - 0.50 ng/mL LA / Cardiac Muscle Damage: ? >0.50 ng/mL Current interpretive data was last reviewed 2015 Blood specimen (specimen) 09/23/2016 2:50 PM CDT 09/23/2016 4:52 PM CDT us Nicanor Wilson MD LAB BLOOD ORDERABLES Edited Result - Final Performing Organization Address City/State/[facility] Co de Phone Number [facility] [address] [place] [address] documented in this encounter Visit Diagnoses Not on filedocumented in this encounter Care Teams Mangle Operator Garments Relationship Specialty Start Date End Date Sergey Wilson MD PCP - General 09/20/16 documented as of this encounter
--- OUTSIDE RECORDS SUMMARY | 2024-05-24 02:10 | XMS_ITS | Encounter Summary ---
Author Organization [facility] Healthcare Address [address] [place] [address] Care Team Providers Care Food Service Assistant Name Role Phone Sergey Wilson MD Primary Care Provider [phone] Encounter Details Date Type Department Care Team (Late st Contact Info) Description 09/23/2016 2:45 PM CDT - 09/23/2016 6:51 PM CDT Emergency [facility] Emergency Department [address] [place] [address] Nicanor Wilson MD [facility] [place] [address] Discharge Disposition: Discharge to home or self care Social History Tobacco Use Types Packs/Day Years Used Date Smoking Tobacco: Former Sex and Gender Information Value Date Recorded Sex Assigned at Not on file 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 HOT TAMALE MAN Gender Identity Not on file Sexual Orientation Not on file documented as of this encounter Medications at Time of Discharge cyanocobalamin/fo lic acid (vitamin Q04-vkryi acid) 2,500-400 mcg tablet,disintegra ting 05/14/1969 naproxen sodium 220 mg capsule ALEVE CAPSULE 05/14/1969 divalproex ER (DEPAKOTE ER) 500 mg 24 hr tablet TAKE 2 TABS QAM, 1 TAB AT NOON, AND 2 TABS QPM 02/11/2013 02/13/2018 documented as of this encounter Discharge Disposition Disposition Code Departure Means Destination Discharge to home or self care documented in this encounter Plan of Treatment Not on file documented as of this encounter Visit Diagnoses Not on filedocumented in this encounter Care Teams Food Service Assistant Relationship Specialty Start Date End Date Sergey Wilson MD PCP - General 09/20/16 documented as of this encounter
--- OUTSIDE RECORDS SUMMARY | 2024-05-24 02:10 | XMS_ITS | Encounter Summary ---
Author Organization [facility] Facility Care Team Providers Care Count Team Member Name Role Phone Unavailable Primary Care Provider Unavailabl e Encounter Details Date Type Department Care Team (Late st Contact Info) Description 06/16/2015 7:51 AM ADMISSIONS DIRECTOR - 06/19/2015 2:34 PM ADMISSIONS DIRECTOR Hospital [facility] PhD [address] [place] [address] Epilepsy without status epilepticus, not intractable (CMS/HCC); Essential (primary) hypertension; Mixed hyperlipidemia; Major depressive disorder, single episode (CMS/HCC); Generalized anxiety disorder Social History Tobacco Use Types Packs/Day Years Used Date Smoking Tobacco: Former Sex and Gender Information Value Date Recorded Sex Assigned at Not on file 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 ADMISSIONS DIRECTOR Gender Identity Not on file Sexual Orientation Not on file documented as of this encounter Last Filed Vital Signs Vital Sign Reading Time Taken Comments Blood Pressure 117/77 06/19/2015 6:00 AM ADMISSIONS DIRECTOR Pulse 76 06/19/2015 6:00 AM ADMISSIONS DIRECTOR Temperature - - Respiratory Rate - - Oxygen Saturation 98% 06/19/2015 6:00 AM ADMISSIONS DIRECTOR Inhaled Oxygen Concentration - - Weight 108.9 kg (239 lb 15.9 oz) 2015 10:46 AM ADMISSIONS DIRECTOR Height 177.8 cm (5' 10 ) 06/16/2015 9:38 AM ADMISSIONS DIRECTOR Body Mass Index 34.44 06/16/2015 9:38 AM ADMISSIONS DIRECTOR documented in this encounter Medications at Time of Discharge cyanocobalamin/fo lic acid (vitamin B83-kfzos acid) 2,500-400 mcg tablet,disintegra ting 05/14/1969 naproxen sodium 220 mg capsule ALEVE CAPSULE 05/14/1969 divalproex ER (DEPAKOTE ER) 500 mg 24 hr tablet TAKE 2 TABS QAM, 1 TAB AT NOON, AND 2 TABS QPM 02/11/2013 02/13/2018 documented as of this encounter Plan of Treatment Not on file documented as of this encounter Visit Diagnoses Diagnosis Epilepsy without status epilepticus, not intractable (HCC) Essential (primary) hypertension Unspecified essential hypertension Mixed hyperlipidemia Major depressive disorder, single episode Major depressive disorder, single episode, unspecified Generalized anxiety disorder documented in this encounter
--- OUTSIDE RECORDS SUMMARY | 2024-05-24 02:10 | XMS_ITS | Encounter Summary ---
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 60 - 89 mL/min/1.73m2 Mildly to moderately decreased ?45 - 59 mL/min/1.73m2 Moderately to severely decreased ??30 - 44 mL/min/1.73m2 Severely decreased ?15 - 29 mL/min/1.73m2 Kidney Failure ?< 15 ??mL/min/1.73m2 *Relative to young adult level If -[place]imbabwe[place] multiply value by 1.16. Estimated glomerular filtration [...] was last reviewed 2015. Blood specimen (specimen) 09/23/2016 2:50 PM CDT 09/23/2016 4:56 PM CDT us Nicanor Wilson MD LAB BLOOD ORDERABLES Final Result [facility] [address] [place] [address] documented in this encounter Visit Diagnoses Not on filedocumented in this encounter Care Teams Onsite Case Manager Relationship Specialty Start Date End Date Sergey Wilson MD PCP - General 09/20/16 documented as of this encounter
--- OUTSIDE RECORDS SUMMARY | 2024-05-24 02:10 | XMS_ITS | Encounter Summary ---
Author Organization [facility] Healthcare Address [address] [place] [address] Care Team Providers Care Fancy Packer Name Role Phone Sergey Wilson MD Primary Care Provider [phone] Encounter Details Date Type Department Care Team (Late st Contact Info) Description 09/23/2016 Orders Only [facility] [phone] Nicanor Wilson MD [address] [place] [address] Social History Tobacco Use Types Packs/Day Years Used Date Smoking Tobacco: Former Sex and Gender Information Value Date Recorded Sex Assigned at Not on file 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 SMASH HAND Gender Identity Not on file Sexual Orientation Not on file documented as of this encounter Plan of Treatment Not on file documented as of this encounter Procedures Procedure Name Priority Date/Time Associated Diagnosis Comments VALPROIC ACID LEVEL, TOTAL STAT 09/23/2016 2:50 PM CDT documented in this encounter Results * Valproic acid level, total (09/23/2016 2:50 PM CDT) Valproic Acid 54.0 50.0 - 100.0 mg/L JOHANNY Blood specimen (specimen) 09/23/2016 2:50 PM CDT 09/23/2016 4:52 PM CDT Nicanor Wilson MD LAB BLOOD ORDERABLES Final Result [facility] [address] Department [place] [address] documented in this encounter Visit Diagnoses Not on filedocumented in this encounter Care Teams Fancy Packer Relationship Specialty Start Date End Date Sergey Wilson MD PCP - General 09/20/16 documented as of this encounter
--- OUTSIDE RECORDS SUMMARY | 2024-05-24 02:10 | XMS_ITS | Encounter Summary ---
Author Organization [facility] Address [address] [facility] [facility] [address] [place] [address] Care Team Providers Care Stove Carriage Operator Name Role Phone Sergey Wilson MD Primary Care Provider Encounter Details Date Type Department Care Team (Late st Contact Info) Description 09/20/2016 Orders Only [facility] Palliative Care [address] [facility] [address] [place] [phone] [place] [address] [place] [address] Social History Tobacco Use Types Packs/Day Years Used Date Smoking Tobacco: Former Sex and Gender Information Value Date Recorded Sex Assigned at Not on file 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 Gender Identity Not on file Sexual Orientation Not on file documented as of this encounter Plan of Treatment Not on file documented as of this encounter Procedures Procedure Name Priority Date/Time Associated Diagnosis Comments COMPREHENSIVE METABOLIC PANEL STAT 09/20/2016 12:55 PM CDT documented in this encounter Results * (ABNORMAL) Comprehensive metabolic panel (09/20/2016 12:55 PM CDT) Sodium 137 135 - 145 mmol/L [facility] Potassium, pl 4.1 3.5 - 5.1 mmol/L [facility] CO2 19(L) 22 - 32 mmol/L [facility] BUN 10 8 - 24 mg/dL [facility] Glucose 164 70 - 199 mg/dL [facility] Creatinine 0.59(L) 0.70 - 1.40 mg/dL [facility] Calcium 9.1 8.4 - 10.5 mg/dL [facility] Chloride 107 100 - 114 mmol/L [facility] Albumin 3.4 3.2 - 4.8 g/dL [facility] AST 70(H) 7 - 40 Units/L [facility] ALT 50 5 - 50 Units/L [facility] Alk phos 84 30 - 110 Units/L [facility] Bilirubin, total 0.30 0.10 - 1.30 mg/dL [facility] Protein, pl 6.6 6.0 - 8.3 g/dL [facility] Anion gap 15 8 - 16 mmol/L [facility] Blood specimen (specimen) 09/20/2016 12:55 PM CDT 09/20/2016 1:03 PM CDT us Arvin Linder MD LAB BLOOD ORDERABLES [facility] Result [facility] [address] Department [place] [address] documented in this encounter Visit Diagnoses Not on filedocumented in this encounter Care Teams Stove Carriage Operator Relationship Specialty Start Date End Date Sergey Wilson MD PCP - General 09/20/16 documented as of this encounter
--- OUTSIDE RECORDS SUMMARY | 2024-05-24 02:10 | XMS_ITS | Encounter Summary ---
Author Organization [facility] Address [address] [place] [address] Care Team Providers Care Tempering Kiln Tender Name Role Phone Sergey Wilson MD Primary Care Provider Encounter Details Date Type Department Care Team (Late st Contact Info) Description 09/20/2016 Orders Only [facility] Palliative Care [address] [facility] [address] [place] [phone] [place] [address] [place] [address] Social History Tobacco Use Types Packs/Day Years Used Date Smoking Tobacco: Former Sex and Gender Information Value Date Recorded Sex Assigned at Not on file 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 BUSINESS CENTER REPRESENTATIVE Gender Identity Not on file Sexual Orientation Not on file documented as of this encounter Plan of Treatment Not on file documented as of this encounter Procedures Procedure Name Priority Date/Time Associated Diagnosis Comments CBC WITH AUTO DIFFERENTIAL STAT 09/20/2016 12:55 PM CDT documented in this encounter Results * CBC with auto differential (09/20/2016 12:55 PM CDT) WBC 7.16 3.80 - 9.90 K/cumm [facility] RBC 4.59 4.30 - 5.80 M/cumm [facility] Hgb 14.3 13.0 - 17.5 g/dL [facility] Hct 42.9 38.9 - 50.3 % [facility] MCV 93.5 81.3 - 96.4 fL [facility] MCH 31.2 27.1 - 33.3 pg [facility] MCHC 33.3 32.3 - 35.7 g/dL [facility] RDW CV 12.6 11.1 - 14.9 % [facility] RDW SD 43.3 35.7 - 48.1 fL [facility] Plt 164 150 - 400 K/cumm [facility] MPV 10.0 9.1 - 12.3 fL [facility] NRBC 0.0 0.0 - 0.2 % [facility] NRBC abs 0.00 0.00 - 0.01 K/cumm [facility] Blood specimen (specimen) 09/20/2016 12:55 PM CDT 09/20/2016 1:03 PM CDT us Arvin Linder MD LAB BLOOD ORDERABLES [facility] [address] Department [place] [address] documented in this encounter Visit Diagnoses Not on filedocumented in this encounter Care Teams Tempering Kiln Tender Relationship Specialty Start Date End Date Sergey Wilson MD PCP - General 09/20/16 documented as of this encounter
--- OUTSIDE RECORDS SUMMARY | 2024-05-24 02:10 | XMS_ITS | Encounter Summary ---
Author Organization [facility] Facility Care Team Providers Care Toll Line Mechanic Name Role Phone Unavailable Primary Care Provider Unavailabl e Encounter Details Date Type Department Care Team (Late st Contact Info) Description 06/10/2013 5:30 PM DIE HARDENER - 06/11/2013 12:53 AM DIE HARDENER [facility] [address] [place] [address] Headache; Convulsions (HCC); Essential hypertension; Other depressive disorder; Asthma; Anxiety state; Other postprocedural states; Encounter for long-term (current) use of other medications; Personal history of tobacco use, presenting hazards to health Social History Tobacco Use Types Packs/Day Years Used Date Smoking Tobacco: Former Sex and Gender Information Value Date Recorded Sex Assigned at Not on file 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 DIE HARDENER Gender Identity Not on file Sexual Orientation Not on file documented as of this encounter Medications at Time of Discharge cyanocobalamin/fo lic acid (vitamin A84-kxufw acid) 2,500-400 mcg tablet,disintegra ting 05/14/1969 naproxen sodium 220 mg capsule ALEVE CAPSULE 05/14/1969 divalproex ER (DEPAKOTE ER) 500 mg 24 hr tablet TAKE 2 TABS QAM, 1 TAB AT NOON, AND 2 TABS QPM 02/11/2013 02/13/2018 documented as of this encounter Consult Notes * ProviderKareem MD - 06/10/2013 12:00 AM CST Patient: Reji Branch Reg No: [id number] Count Includes [facility] #: [id number] Admit Dt.: 06/10/2013 : 1965 Room No: ER Attending: Júnior Mojica M.D. Consulting: Issac Schneider M.D. Dictating: Deep Leone M.D. Service Dt: 06/10/2013 CONSULTATION REPORT SERVICE REQUESTING CONSULTATION: Emergency department. PHYSICIAN REQUESTING CONSULTATION: Júnior Mojica M.D. REASON FOR CONSULTATION: Headache. BRIEF HISTORY: Mr. Branch is a 48-year-old male presenting onto the neurosurgery service for a recent craniotomy and a megalo-hippocampectomy for medically refractory epilepsy who returns with complaints of generalized weakness and pain of the right side of his head. The patient states that he has been feeling generalized fatigue with poor activity tolerance that has been long-standing since prior surgery but he feels like it has been worse over the past two weeks. He states that he has some known cardiac and lung disease that has been managed by his primary medical doctor but he is unable to give specifics of his condition. The patient states that since his surgery he has been doing well and has not had any seizure activity or other complications. He does endorse some pain over the right side of his head where his surgical site was. However, he states that that is improved and controlled with p.o. pain medications. During the interview the patient began to have concern for a seizure where he began pointing with his right hand, staring off into space. He was nonresponsive. This was followed by closing his eyes and fall out of his chair. This lasted approximately one to two minutes at which time he abruptly regained consciousness and was amnestic of the event. With assistance we placed the back onto his emergency room hospital stretcher and protected him with side rails. The patient again reiterated that he did not remember any of these events. During this episode he did not have any bowel or bladder incontinence, tonic/clonic activity in his extremities, gaze deviation or other lateralizing signs. He denied any weakness, headaches or other complaints up to this event. PAST MEDICAL HISTORY: 1. Epilepsy. 2. Hypertension. 3. Asthma. 4. Hypercholesterolemia. 5. Depression. PAST SURGICAL HISTORY: 1. On 05/02/13 a right temporal craniotomy for a temporal lobectomy and a megalo-hippocampectomy. 2. Rotator cuff surgery. 3. Foot surgery. 4. Leg wound debridements. REVIEW OF SYSTEMS: Were negative except as mentioned in the history of present illness. FAMILY HISTORY: Is noncontributory. SOCIAL HISTORY: The patient denies any alcohol, tobacco or recreational drugs. Lives in [place], [place] with his girlfriend. He is disabled and not currently employed. MEDICATIONS: The patient was previously noted to be poorly compliant with knowledge of his medications. Per his previous discharge his medications include: 1. Albuterol. 2. Enalapril. 3. Acetaminophen. 4. Nortriptyline. 5. Acetazolamide. 6. Clonazepam. 7. Omeprazole. 8. Simvastatin. 9. Cyclobenzaprine. 10. Colace. 11. Phenol. 12. Divalproex. 13. Topiramate. 14. Citalopram. ALLERGIES: He has no known drug allergies. PHYSICAL EXAMINATION: Neurologic: He is awake, alert and oriented x 3. His speech is clear and fluent. His pupils equal, round, reactive to light 4 mm to 3 mm. His extraocular muscles intact. Facial expression is full and symmetric. His tongue protrudes in the midline. He has no pronator drift. His strength is 5 out of 5 throughout bilateral upper extremities and lower extremities. His sensory exam is intact to light touch. His head is normocephalic and atraumatic. His surgical wound is well healed with no edema, dehiscence or signs of infection. There is a small raised point on the wound in the preauricular area that is concerning for an underlying stitch but does not appear to be penetrating the skin, does not appear to be infected and is nontender to palpation and does not appear to be complicated at all. His head is otherwise normocephalic. He shows no other external signs of trauma. He is otherwise resting comfortably in his emergency room hospital bed. No acute distress. IMPRESSION AND RECOMMENDATIONS: This is a 48-year-old male with generalized complaints of weakness and activity tolerance concerning for cardiopulmonary deconditioning with no neurosurgical complications from his previous surgery who appeared to have a seizure-like event in the emergency department during his interview. Plan #1. Recommend routine labs, get a complete blood count, BMP, PT-PTT, INR, chest x-ray, EKG with micro and macro cultures and type and screen. Plan #2. Recommend urology consultation for medical management of his seizure disorder. Plan #3. Will staff with attending and provide further recommendations pending completion of above. This plan was discussed with chief resident, Dr. Nasim Elizabeth and the attending physician, Dr. Issac Schneider and all are in agreement. Deep Leone M.D. Electronically Signed By Issac Schneider M.D. 06/17/2013 02:16 P Almaz Navarro/edilia #[id number] Editing MT: TD: 06/11/2013 07:37:00 cc: Almaz Navarro M.D. David Seltzer, M.D. documented in this encounter Plan of Treatment Not on file documented as of this encounter Procedures Procedure Name Priority Date/Time Associated Diagnosis Comments DISCHARGE LABORATORY CUMULATIVE REPORT Routine 06/11/2013 12:00 AM DIE HARDENER URINE MICROSCOPY Routine 06/10/2013 10:5 5 PM DIE HARDENER URINALYSIS Routine 06/10/2013 10:55 PM DIE HARDENER XR CHEST PA LATERAL 2 VIEWS Routine 06/10/2013 10:48 PM DIE HARDENER SERUM TOPIRAMATE DRUG LEVEL Routine 06/10/2013 7:46 PM DIE HARDENER BLOOD GLUCOSE, POC Routine 06/10/2013 7: 46 PM DIE HARDENER SERUM VALPROIC ACID DRUG LEVEL Routine 06/10/2013 7:43 PM DIE HARDENER PLASMA BASIC METABOLIC PANEL Routine 06/10/2013 7:43 PM DIE HARDENER BLOOD CELL COUNT (CBC) Routine 06/10/2013 7:[address] HEAD WO CONTRAST Routine 06/10/2013 7 :19 PM DIE HARDENER documented in this encounter Results * Discharge Laboratory Cumulative Report (06/11/2013 12:00 AM DIE HARDENER) 06/11/2013 Narrative HISTORICAL RESULTS - 06/12/2013 7:15 PM DIE HARDENER ?[facility] ?Department of Laboratories ? [address] [facility] [address] ? [place] [address] Patient Name: ??REJI BRANCH Med Rec Number: [id number] Fin Number: ?[id number] Date: ?1965 Sex/Age: ? Male 48 years Admit Date: ?06/10/2013 Discharge Date: 06/11/2013 Doctor: ?Júnior Mojica Facility: ?[facility] Location: ?EM-25 Chart Printed: 06/12/2013 19:15 ?? * Abnormal ?? C Critical ?? f Footnote ?? ^ Corrected ?? L Low ?? H High ? i Interp Data ?? @ Reference Lab ?Chart Type:Cumulative ? SELECTED ELECTROLYTES ?Test: Sodium ? Plasma Potassium ??Chloride ? Reference: [135-145] ??[3.3-4.9] ? [97-110] ? Units: mmol/L ? mmol/L ?mmol/L 06/10/2013 ?? 19:43:00 ?? 140 ?3.6 ? 108 ?Test: Total CO2 ??Anion Gap ? Reference: [22-32] ?[0-16] ? Units: mmol/L ? mmol/L 06/10/2013 ?? 19:43:00 ?? 22 ? 10 ? STANDARD BLOOD CHEMISTRY ?Test: BUN ? Creatinine ?? Glucose ?? Total Calcium ? Reference: [8-25] ??[0.70-1.30] ??[70-199] ??[8.6-10.3] ? Units: mg/dL ?? mg/dL ?mg/dL ? mg/dL 06/10/2013 ?? 19:43:00 ?? 12 ?0.69 ??L ?107 ? 9.3 ?DRUG LEVELS ?Test: Topiramate ?Valproic Acid i ? Reference: [2.0 - 20.0] ??[50.0-100.0] ? Units: mcg/mL ?mcg/mL 06/10/2013 ?? 19:46:00 ?? 11.9 ??f 06/10/2013 ?? 19:43:00 ? 89.9 ?DRUG LEVELS 06/10/2013 19:43:00 Valproic Acid: Interpretive Data Effective level to control complex partial seizures and simple and complex absence seizures in adults and adolescence with epilepsy:50-100 mcg/mL Effective level to control acute max: 50-125 mcg/mL Physician alert: ??greater than or equal to 150 mcg/mL Therapeutic or toxic effects of anticonvulsant drugs may occur at different concentrations in different patients and the correlation between dose and clinical effect must be evaluated individually. Current interpretative data was last revised on 2001. 06/10/2013 19:46:00 ??Topiramate: Test Performed by: [place] [address] Employee Service Officer: Jose M Lipscomb III, M.D. ?URINALYSIS ?Macroscopic ?Test: Color ? Clarity ??Specific Reese ? Reference: [Yellow] ?[Clear] ??[1.003-1.030] ? Units: 06/10/2013 ?? 22:55:00 ?? Light-Yellow ??Clear ?1.011 ?Test: pH ? Albumin ?? Glucose ? Ketones ? Reference: [5.0-8.0] ??[Trace] ?? [Negative] ??[Negative] ? Units: 06/10/2013 ?? 22:55:00 ?? 6.5 ?Negative ??Negative ?Negative ?Test: Bilirubin ?? Blood ? Urobilinogen ? Reference: [Negative] ??[Negative] ??[0.0-2.0] ? Units: ? mg/dL 06/10/2013 ?? 22:55:00 ?? Negative ?Negative ?<2.0 ?Test: Nitrite ? Leuk Esterase ? Reference: [Negative] ??[Negative] ? Units: 06/10/2013 ?? 22:55:00 ?? Negative ?2+ ??* ?Microscopic ?Test: Mucus Thrds ??RBC Ur ??WBC Ur ??Bacteria Ur ? Reference: ?[0-3] ?? [0-5] ?? [Trace] ? Units: /HPF ? /HPF ?/HPF 06/10/2013 ?? 22:55:00 ?? Small ?1 ? 5 ? Negative ?Test: Epithl Renl Ur ? Reference: [0-0] ? Units: /HPF 06/10/2013 ?? 22:55:00 ?? 0 ? COMPLETE BLOOD COUNT ?Test: WBC ?RBC ?Hgb ? Reference: [3.8-9.8] ??[4.50-5.70] ??[13.8-17.2] ? Units: K/cumm ? M/cumm ? g/dL 06/10/2013 ?? 19:43:00 ?? 8.0 ?4.51 ? 12.4 ??L ?Test: Hct ?Platelet Ct ??MCV ? Reference: [40.7-50.3] ??[140-440] ?[80.0-97.6] ? Units: % ?K/cumm ? fL 06/10/2013 ?? 19:43:00 ?? 37.3 ??L ?332 ?82.7 ?Test: MCH ?MCHC ? RDW ? Reference: [26.7-33.7] ??[32.7-35.5] ??[11.8-14.6] ? Units: pg ? g/dL ? % 06/10/2013 ?? 19:43:00 ?? 27.5 ? 33.2 ? 15.6 ??H ?Test: MPV ? Reference: [6.8-10.4] ? Units: fL 06/10/2013 ?? 19:43:00 ?? 7.5 ? AUTOMATED WHITE CELL DIFFERENTIAL ?Test: Neut Pct Auto ??Lymph Pct Auto ??[place] Pct Auto ? Reference: [38.7-74.5] ?[20.0-54.3] ? [4.3-13.5] ? Units: % ?% ? % 06/10/2013 ?? 19:43:00 ?? 49.0 ? 40.8 ?5.8 ?Test: Eos Pct Auto ??Baso Pct Auto ??Neut Abs Auto ? Reference: [0.0-6.0] ? [0.0-3.0] ?[1.8-6.6] ? Units: % ? % ?K/cumm 06/10/2013 ?? 19:43:00 ?? 4.3 ? 0.1 ?3.9 ?Test: Lymph Abs Auto ??[place] Abs Auto ??Eos Abs Auto ? Reference: [1.2-3.3] ? [0.2-1.2] ?[0.0-0.5] ? Units: K/cumm ?K/cumm ? K/cumm 06/10/2013 ?? 19:43:00 ?? 3.3 ? 0.5 ?0.3 ?Test: Baso Abs Auto ? Reference: [0.0-0.2] ? Units: K/cumm 06/10/2013 ?? 19:43:00 ?? 0.0 ?POINT OF CARE TESTS ? Chemistry ?Test: Glucose POC ? Reference: [70-199] ? Units: mg/dL 06/10/2013 ?? 19:46:00 ?? 114 Historical Provider MD LAB BLOOD ORDERABLES Adeline l Result Performing Organization Address [facility] de Phone Number HISTORICAL RESULTS * (ABNORMAL) Urinalysis (06/10/2013 10:55 PM DIE HARDENER) Color, ur Light-Yellow Yellow HISTORI BAMBI RESULTS Clarity, ur Clear Clear HISTORIC AL RESULTS Specific gravity, ur 1.011 1.003 - 1.030 HISTORICAL RESULTS pH, ur 6.5 5.0 - 8.0 HISTORICAL RESULTS Protein, ur Negative Trace HISTORIC AL RESULTS Glucose, ur Negative Negative HISTORIC AL RESULTS Ketones, ur Negative Negative HISTORIC AL RESULTS Bilirubin, ur Negative Negative HISTOR ICAL RESULTS U Blood Negative Negative HISTORICAL RESULTS Urobilinogen, quant, ur <2.0 0.0 - 2.0 mg/dl HISTORICAL RESULTS Nitrites, ur Negative Negative HISTORI BAMBI RESULTS Leukocyte esterase, ur 2+(A) Negative HISTORICAL RESULTS Urine 06/10/2013 10:5 5 PM DIE HARDENER Result [facility] Paul Roy MD LAB BLOOD ORDERAB LES Final Result Performing Organization Address [facility] de Phone Number HISTORICAL RESULTS * Urine microscopy (06/10/2013 10:55 PM DIE HARDENER) RBC, ur 1 0 - 3 /hpf HISTORICA L RESULTS WBC, ur 5 0 - 5 /hpf HISTORICA L RESULTS Bacteria, ur Negative Trace HISTORI BAMBI RESULTS Epithelial cells, renal, ur 0 0 - 0 /hpf HISTORICAL RESULTS Mucus, ur Small /hpf HISTORICAL RESULTS Urine 06/10/2013 10:5 5 PM DIE HARDENER Result [facility] Paul Roy MD LAB BLOOD ORDERAB LES Final Result Performing Organization Address [facility] de Phone Number HISTORICAL RESULTS * XR Chest Pa Lateral 2 Views (06/10/2013 10:48 PM DIE HARDENER) Anatomical Region Laterality Modality Body, Chest N/A Radiographic Kayley ging 06/10/2013 10:4 8 PM DIE HARDENER Narrative 06/11/2013 12:48 PM DIE HARDENER Almaz MORALES M.D. FINAL REPORT The radiology attending physician has personally reviewed this study, and has reviewed and/or edited this written report and agrees with it. ACC# ??Date Time ??Exam [id number] Jun 10, 2013 22:48:00 [id number] Chest 2 views Frontl & Lat EXAMINATION: ?? Chest 2 views frontal and lateral ?? IMPRESSION: ?? Comparison is made to prior examination dated 05/21/2013. There is mild bibasilar atelectasis. The lungs are otherwise clear with no pulmonary edema or consolidation. There is no pleural effusion or pneumothorax. The cardiomediastinal silhouette is within normal limits. There is persistent elevation of the right hemidiaphragm. ?? Requested By: PAUL ROY M.D. Dictated By: ?? MITCHELL AGEE M.D. ??on Jun 11 2013 12:29A This document has been electronically signed by: SOFIA HERMOSILLO M.D. on Jun 11 2013 12:48P Procedure Note Provider, MD Kareem - 10/19/2016 Almaz MORALES M.D. FINAL REPORT The radiology attending physician has personally reviewed this study, and has reviewed and/or edited this written report and agrees with it. ACC# Date Time Exam [id number] Jun 10, 2013 22:48:00 [id number] Chest 2 views Frontl & Lat EXAMINATION: Chest 2 views frontal and lateral IMPRESSION: Comparison is made to prior examination dated 05/21/2013. There is mild bibasilar atelectasis. The lungs are otherwise clear with no pulmonary edema or consolidation. There is no pleural effusion or pneumothorax. The cardiomediastinal silhouette is within normal limits. There is persistent elevation of the right hemidiaphragm. Requested By: PAUL ROY.D. Dictated By: MITCHELL GAEE M.D. on Jun 11 2013 12:29A This document has been electronically signed by: SOFIA HERMOSILLO M.D. on Jun 11 2013 12:48P Historical Provider IMDena XR PROCEDURES Final R esult * Blood glucose, POC (06/10/2013 7:46 PM DIE HARDENER) Pathologist [facility] Glucose, POC, bld 114 70 - 199 mg/dl HISTORICAL RESULTS Blood specimen (specimen) 06/10/2013 7:46 PM DIE HARDENER Historical Provider LAB BLOOD ORDERABLES Adeline l Result Performing Organization Address [facility] Co de Phone Number HISTORICAL RESULTS * Serum topiramate drug level (06/10/2013 7:46 PM DIE HARDENER) Pathologist [facility] Topiramate 11.9 2.0 - 20.0 mcg/ml HISTORICAL RESULTS Comment: Test Performed by: [place] [address] Employee Service Officer: Jose M Lipscomb III, M.D. Serum 06/10/2013 7:46 PM DIE HARDENER Loy Dyer MD LAB BLOOD ORDERABLES Final Result Performing Organization Address [facility] Co de Phone Number HISTORICAL RESULTS * (ABNORMAL) Plasma basic metabolic panel (06/10/2013 7:43 PM DIE HARDENER) Pathologist [facility] Sodium 140 135 - 145 mmol/L HISTORICAL RESULTS Creatinine 0.69(L) 0.70 - 1.30 mg/dl HISTORICAL RESULTS K, pl 3.6 3.3 - 4.9 mmol/L HISTORICAL RESULTS Calcium 9.3 8.6 - 10.3 mg/dl HISTORICAL RESULTS Chloride 108 97 - 110 mmol/L HISTORICAL RESULTS CO2 22 22 - 32 mmol/L HISTORICAL RESULTS A. gap 10 0 - 16 mmol/L HISTORICAL RESULTS Glucose 107 70 - 199 mg/dl HISTORICAL RESULTS BUN 12 8 - 25 mg/dl HISTORICAL RESULTS Plasma 06/10/2013 7:43 PM DIE HARDENER Loy Dyer MD LAB BLOOD ORDERABLES Final Result Performing Organization Address [facility] de Phone Number HISTORICAL RESULTS * Serum valproic acid drug level (06/10/2013 7:43 PM DIE HARDENER) Valproic acid 90 50 - 100 mcg/ml HISTORICAL RESULTS Comment: Interpretive Data Effective level to control complex partial seizures and simple and complex absence seizures in adults and adolescence with epilepsy:50-100 mcg/mL Effective level to control acute max: 50-125 mcg/mL Physician alert: ??greater than or equal to 150 mcg/mL Therapeutic or toxic effects of anticonvulsant drugs may occur at different concentrations in different patients and the correlation between dose and clinical effect must be evaluated individually. Current interpretative data was last revised on 2001. Serum 06/10/2013 7:43 PM DIE HARDENER Loy Dyer MD LAB BLOOD ORDERABLES Final Result Performing Organization Address [facility] de Phone Number HISTORICAL RESULTS * (ABNORMAL) Blood cell count (CBC) (06/10/2013 7:40 PM DIE HARDENER) WBC 8.0 3.8 - 9.8 K/cumm HISTORICAL RESULTS RBC 4.51 4.50 - 5.70 M/cumm HISTORICAL RESULTS Hgb 12.4(L) 13.8 - 17.2 g/dl HISTORICAL RESULTS Hct 37.3(L) 40.7 - 50.3 % HISTORICAL RESULTS MCV 82.7 80.0 - 97.6 fl HISTORICAL RESULTS MCH 27.5 26.7 - 33.7 pg HISTORICAL RESULTS MCHC 33.2 32.7 - 35.5 g/dl HISTORICAL RESULTS Rdw 15.6(H) 11.8 - 14.6 % HISTORICAL RESULTS Platelets 332 140 - 440 K/cumm HISTORICAL RESULTS MPV 7.5 6.8 - 10.4 fl HISTORICAL RESULTS Neutrophils 49.0 38.7 - 74.5 % HISTORICAL RESULTS Lymphocytes 40.8 20.0 - 54.3 % HISTORICAL RESULTS Monos 5.8 4.3 - 13.5 % HISTORICAL RESULTS Eosinophils 4.3 0.0 - 6.0 % HISTORICAL RESULTS Basophils 0.1 0.0 - 3.0 % HISTORICAL RESULTS Neutrophils, abs 3.9 1.8 - 6.6 K/cumm HISTORICAL RESULTS Lymphocytes, abs 3.3 1.2 - 3.3 K/cumm HISTORICAL RESULTS Monocytes, absolute 0.5 0.2 - 1.2 K/cumm HISTORICAL RESULTS Eosinophils, abs 0.3 0.0 - 0.5 K/cumm HISTORICAL RESULTS Basophils, abs 0.0 0.0 - 0.2 K/cumm HISTORICAL RESULTS Blood specimen (specimen) 06/10/2013 7:40 PM DIE HARDENER Loy Dyer MD LAB BLOOD ORDERABLES Final Result HISTORICAL RESULTS * CT Head WO Contrast (06/10/2013 7:19 PM DIE HARDENER) Anatomical Region Laterality Modality Head and Neck N/A Computed Tomogra phy 06/10/2013 7:19 PM DIE HARDENER Narrative 06/11/2013 12:57 PM DIE HARDENER EMANUEL HARRIS M.D. KARL PINA, FINAL REPORT The radiology attending physician has personally reviewed this study, and has reviewed and/or edited this written report and agrees with it. ACC# ??Date Time ??Exam [id number] Jun 10, 2013 19:19:[id number] Head or Brain w/o cont EXAMINATION: ?? Noncontrast head CT HISTORY: 48-year-old man with epilepsy status post right-sided amygdalohippocampectomy TECHNIQUE: Noncontrast CT of the brain was performed with axial images acquired from skull base to vertex. COMPARISON: CT head dated 05/25/2013 FINDINGS: Postsurgical changes of right temporal craniotomy with resection of the right hippocampus and amygdala seen. There is mucosal thickening of the right maxillary sinus. There remain subcutaneous stranding, with soft tissue thickening overlying the right temporal craniotomy site. There are no acute intra or extra-axial fluid collections. Ventricles are of normal size, shape, and morphology. No mass effect or midline shift is present. The basilar cisterns are patent. The driver-white matter differentiation is normal. The visualized portions of the orbits, and paranasal sinuses, and mastoids are normal. No fractures are identified. IMPRESSION: ?? 1. Stable postsurgical changes of right temporal lobectomy. 2. Stable soft tissue swelling and stranding overlying the incision site, unchanged. Requested By: LOY DYER M.D. Dictated By: ?? KARL PINA, ?? on Jun 10 2013 ??7:53P This document has been electronically signed by: EMANUEL HARRIS M.D. on Jun 11 2013 12:57P Procedure Note Provider, MD Kareem - 09/13/2016 EMANUEL HARRIS M.D. KARL PINA, FINAL REPORT The radiology attending physician has personally reviewed this study, and has reviewed and/or edited this written report and agrees with it. [facility]# Date Time Exam [id number] Jun 10, 2013 19:19:[id number] Head or Brain w/o cont EXAMINATION: Noncontrast head CT HISTORY: 48-year-old man with epilepsy status post right-sided amygdalohippocampectomy TECHNIQUE: Noncontrast CT of the brain was performed with axial images acquired from skull base to vertex. COMPARISON: CT head dated 05/25/2013 FINDINGS: Postsurgical changes of right temporal craniotomy with resection of the right hippocampus and amygdala seen. There is mucosal thickening of the right maxillary sinus. There remain subcutaneous stranding, with soft tissue thickening overlying the right temporal craniotomy site. There are no acute intra or extra-axial fluid collections. Ventricles are of normal size, shape, and morphology. No mass effect or midline shift is present. The basilar cisterns are patent. The driver-white matter differentiation is normal. The visualized portions of the orbits, and paranasal sinuses, and mastoids are normal. No fractures are identified. IMPRESSION: 1. Stable postsurgical changes of right temporal lobectomy. 2. Stable soft tissue swelling and stranding overlying the incision site, unchanged. Requested By: LOY DYER M.D. Dictated By: KARL PINA, on Jun 10 2013 7:53P This document has been electronically signed by: EMANUEL HARRIS M.D. on Jun 11 2013 12:57P Historical Provider MD BERGMAN CT PROCEDURES Final R esult documented in this encounter Visit Diagnoses Diagnosis Headache Convulsions (HCC) Other convulsions Essential hypertension Unspecified essential hypertension Other depressive disorder Asthma Unspecified asthma Anxiety state Anxiety state, unspecified Other postprocedural states Encounter for long-term (current) use of other medications Personal history of tobacco use, presenting hazards to health documented in this encounter
--- OUTSIDE RECORDS SUMMARY | 2024-05-24 02:10 | XMS_ITS | Encounter Summary ---
Author Organization [facility] Address [address] [place] [address] Care Team Providers Care Manufacturing Manager Name Role Phone Sergey Wilson MD Primary Care Provider Encounter Details Date Type Department Care Team (Late st Contact Info) Description 09/20/2016 Orders Only [facility] Palliative Care 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 60 - 89 mL/min/1.73m2 Mildly to moderately decreased ?45 - 59 mL/min/1.73m2 Moderately to severely decreased ??30 - 44 mL/min/1.73m2 Severely decreased ?15 - 29 mL/min/1.73m2 Kidney Failure ?< 15 ??mL/min/1.73m2 *Relative to young adult level If -[place] multiply value by 1.16. Estimated glomerular filtration [...] was last reviewed 2015. Blood specimen (specimen) 09/20/2016 12:55 PM CDT 09/20/2016 1:07 PM CDT us Arvin Linder MD LAB BLOOD ORDERABLES Fi nal Result Performing Organization Address City/State/[facility] Co de Phone Number JOHANNY [address] Department [place] [address] documented in this encounter Visit Diagnoses Not on filedocumented in this encounter Care Teams Manufacturing Manager Relationship Specialty Start Date End Date Sergey Wilson MD PCP - General 09/20/16 documented as of this encounter
--- OUTSIDE RECORDS SUMMARY | 2024-05-24 02:10 | XMS_ITS | Encounter Summary ---
Author Organization [facility] Address [address] [place] [address] Care Team Providers Care Shoeblack Name Role Phone Sergey Wilson MD Primary Care Provider [phone] Encounter Details Date Type Department Care Team (Late st Contact Info) Description 09/20/2016 11:47 AM CDT - 09/20/2016 11:59 PM CDT Emergency 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
--- OUTSIDE RECORDS SUMMARY | 2024-05-24 02:10 | XMS_ITS | Encounter Summary ---
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 for medical purposes. ??All results, especially unconfirmed screening results, must not be used for non medical purposes. Current interpretive data was last revised 06. ?Test: Cocaine Metabolite i ??Opiate Class i ? Reference: ? Units: 05/25/2013 ?? 15:59:00 ?? None detected ? None detected 05/25/2013 15:59:00 Cocaine Metabolite: Interpretive Data Immunoassay Screen cutoff level 150 ng/mL. Drug results are to be used only for medical purposes. ??All results, especially unconfirmed screening results, must not be used for non medical purposes. Current interpretive data was last revised 2006. 05/25/2013 15:59:00 Opiate Class: Interpretive Data Immunoassay Screen cutoff level 300 ng/mL. Drug results are to be used only for medical purposes. ??All results, especially unconfirmed screening results, must not be used for non medical purposes. Current interpretive data was last revised 2006. ?Test: Phencyclidine i ? Reference: ? Units: 05/25/2013 ?? 15:59:00 ?? None detected 05/25/2013 15:59:00 Phencyclidine: Interpretive Data Immunoassay Screen cutoff level 25 ng/mL. Drug results are to be used only for medical purposes. ??All results, especially unconfirmed screening results, must not be used for non medical purposes. Current interpretive data was last revised 2006. ?URINALYSIS ?Macroscopic ?Test: Color ? Clarity ??Specific Anabel ??pH ? Reference: [Yellow] ??[Clear] ??[1.003-1.030] ? [5.0-8.0] ? Units: 05/25/2013 ?? 15:59:00 ?? Yellow ?Clear ?1.012 ? 5.0 ?Test: Albumin ?? Glucose ? Ketones ? Bilirubin ? Reference: [Trace] ?? [Negative] ??[Negative] ??[Negative] ? Units: 05/25/2013 ?? 15:59:00 ?? Negative ??Negative ?Negative ?Negative ?URINALYSIS ?Macroscopic ?Test: Blood ? Urobilinogen ??Nitrite ? Reference: [Negative] ??[0.0-2.0] ? [Negative] ? Units: ? mg/dL 05/25/2013 ?? 15:59:00 ?? Negative ?<2.0 ?Negative ?Test: Leuk Esterase ? Reference: [Negative] ? Units: 05/25/2013 ?? 15:59:00 ?? Negative ? COMPLETE BLOOD COUNT ?Test: WBC ?RBC ?Hgb ? Reference: [3.8-9.8] ??[4.50-5.70] ??[13.8-17.2] ? Units: K/cumm ? M/cumm ? g/dL 05/28/2013 ?? 00:34:00 ?? 4.7 ?3.95 ??L ?11.4 ??L 05/27/2013 ?? 03:31:00 ?? 4.4 ?3.85 ??L ?10.9 ??L 05/25/2013 ?? 15:00:34 ?? 6.6 ?4.37 ??L ?12.1 ??L ?Test: Hct ?Platelet Ct ??MCV ? Reference: [40.7-50.3] ??[140-440] ?[80.0-97.6] ? Units: % ?K/cumm ? fL 05/28/2013 ?? 00:34:00 ?? 33.1 ??L ?222 ?83.8 05/27/2013 ?? 03:31:00 ?? 32.7 ??L ?222 ??f ? 85.0 05/25/2013 ?? 15:00:34 ?? 36.2 ??L ?295 ?82.8 05/27/2013 03:31:00 ??Platelet Ct: No clot detected in sample. ?Test: MCH ?MCHC ? RDW ? Reference: [26.7-33.7] ??[32.7-35.5] ??[11.8-14.6] ? Units: pg ? g/dL ? % 05/28/2013 ?? 00:34:00 ?? 28.8 ? 34.4 ? 15.3 ??H 05/27/2013 ?? 03:31:00 ?? 28.4 ? 33.4 ? 15.8 ??H 05/25/2013 ?? 15:00:34 ?? 27.7 ? 33.5 ? 14.7 ??H ?Test: MPV ? Reference: [6.8-10.4] ? Units: fL 05/28/2013 ?? 00:34:00 ?? 6.8 05/27/2013 ?? 03:31:00 ?? 6.9 05/25/2013 ?? 15:00:34 ?? 7.0 ? AUTOMATED WHITE CELL DIFFERENTIAL ?Test: Neut Pct Auto ??Lymph Pct Auto ??[place] Pct Auto ? Reference: [38.7-74.5] ?[20.0-54.3] ? [4.3-13.5] ? Units: % ?% ? % 05/28/2013 ?? 00:34:00 ?? 38.3 ??L ?44.1 ?12.7 05/27/2013 ?? 03:31:00 ?? 30.7 ??L ?52.8 ?11.1 05/25/2013 ?? 15:00:34 ?? 47.1 ? 41.2 ?8.5 ?Test: Eos Pct Auto ??Baso Pct Auto ??Neut Abs Auto ? Reference: [0.0-6.0] ? [0.0-3.0] ?[1.8-6.6] ? Units: % ? % ?K/cumm 05/28/2013 ?? 00:34:00 ?? 4.7 ? 0.2 ?1.8 05/27/2013 ?? 03:31:00 ?? 4.9 ? 0.5 ?1.3 ??L 05/25/2013 ?? 15:00:34 ?? 3.1 ? 0.1 ?3.1 ?Test: Lymph Abs Auto ??[place] Abs Auto ??Eos Abs Auto ? Reference: [1.2-3.3] ? [0.2-1.2] ?[0.0-0.5] ? Units: K/cumm ?K/cumm ? K/cumm 05/28/2013 ?? 00:34:00 ?? 2.1 ? 0.6 ?0.2 05/27/2013 ?? 03:31:00 ?? 2.3 ? 0.5 ?0.2 05/25/2013 ?? 15:00:34 ?? 2.7 ? 0.6 ?0.2 ?Test: Baso Abs Auto ? Reference: [0.0-0.2] ? Units: K/cumm 05/28/2013 ?? 00:34:00 ?? 0.0 05/27/2013 ?? 03:31:00 ?? 0.0 05/25/2013 ?? 15:00:34 ?? 0.0 ? MISCELLANEOUS HEMATOLOGY ?Test: ESR ? Reference: [0-12] ? Units: mm/H 05/25/2013 ?? 15:00:31 ?? 10 ? HEMOSTASIS AND THROMBOSIS ?Routine Coagulation Studies ?Test: PT ?INR i ?aPTT i ? Reference: [9.0-12.0] ??[0.90-1.20] ??[25.0-37.0] ? Units: sec ?sec 05/25/2013 ?? 15:59:00 ?? 11.5 ?1.09 ? 30.5 ? HEMOSTASIS AND THROMBOSIS ?Routine Coagulation Studies 05/25/2013 15:59:00 INR: Interpretive Data Inpatient therapeutic ranges* Atrial fibrillation ?2.0-3.0 INR Venous thrombo-embolism ?2.0-3.0 INR Bioprosthetic heart valve ?* Mechanical heart valve, bileaflet or tilting disk,aortic position ? 2.0-3.0 INR All other,or bileaflet or tilting disk, in mitral position ? 2.5-3.5 INR *See the pharmacy resource directory (PHRED) for an updated copy of the Tool Book at [email or web address] Current Interpretive Data was last revised 2011. 05/25/2013 15:59:00 aPTT: Interpretive Data Therapeutic heparin range:60.0 - 94.0 sec based on correlation with therapeutic heparin activity range of 0.3 -0.7 Units/mL. Current interpretive data was last revised on 2011. ? SEROLOGY-BACTERIAL TESTS ?Test: C-Reactive Protein ? Reference: [0.0-9.9] ? Units: mg/L 05/25/2013 ?? 15:59:00 ?? 5.1 ? CANCELLED TESTS Date ?Time ?Test ?Cancel Reason 05/25/2013 ??23:59:00 ??Basic Met Plas 05/25/2013 ??23:59:00 ??CBC Historical Provider LAB BLOOD ORDERABLES Adeline l Result Performing Organization Address [facility] de Phone Number HISTORICAL RESULTS * (ABNORMAL) Plasma basic metabolic panel (05/27/2013 3:31 AM GLAZE SUPERVISOR) Pathologist [facility] Sodium 143 135 - 145 mmol/L HISTORICAL RESULTS K, pl 4.0 3.3 - 4.9 mmol/L HISTORICAL RESULTS Chloride 112(H) 97 - 110 mmol/L HISTORICAL RESULTS CO2 22 22 - 32 mmol/L HISTORICAL RESULTS A. gap 9 0 - 16 mmol/L HISTORICAL RESULTS Glucose 136 70 - 199 mg/dl HISTORICAL RESULTS BUN 8 8 - 25 mg/dl HISTORICAL RESULTS Creatinine 0.68(L) 0.70 - 1.30 mg/dl HISTORICAL RESULTS Calcium 8.9 8.6 - 10.3 mg/dl HISTORICAL RESULTS Plasma 05/27/2013 3:31 AM GLAZE SUPERVISOR Gallo Sage MD LAB BLOOD ORDERABLES Final Result Performing Organization Address [facility] de Phone Number HISTORICAL RESULTS * (ABNORMAL) Blood cell count (CBC) (05/27/2013 3:31 AM GLAZE SUPERVISOR) Pathologist [facility] WBC 4.4 3.8 - 9.8 K/cumm HISTORICAL RESULTS RBC 3.85(L) 4.50 - 5.70 M/cumm HISTORICAL RESULTS Hgb 10.9(L) 13.8 - 17.2 g/dl HISTORICAL RESULTS Hct 32.7(L) 40.7 - 50.3 % HISTORICAL RESULTS MCV 85.0 80.0 - 97.6 fl HISTORICAL RESULTS MCH 28.4 26.7 - 33.7 pg HISTORICAL RESULTS MCHC 33.4 32.7 - 35.5 g/dl HISTORICAL RESULTS Rdw 15.8(H) 11.8 - 14.6 % HISTORICAL RESULTS Platelets 222 140 - 440 K/cumm HISTORICAL RESULTS Comment:{No clot detected in sample.} MPV 6.9 6.8 - 10.4 fl HISTORICAL RESULTS Neutrophils 30.7(L) 38.7 - 74.5 % HISTORICAL RESULTS Lymphocytes 52.8 20.0 - 54.3 % HISTORICAL RESULTS Monos 11.1 4.3 - 13.5 % HISTORICAL RESULTS Eosinophils 4.9 0.0 - 6.0 % HISTORICAL RESULTS Basophils 0.5 0.0 - 3.0 % HISTORICAL RESULTS Neutrophils, abs 1.3(L) 1.8 - 6.6 K/cumm HISTORICAL RESULTS Lymphocytes, abs 2.3 1.2 - 3.3 K/cumm HISTORICAL RESULTS Monocytes, absolute 0.5 0.2 - 1.2 K/cumm HISTORICAL RESULTS Eosinophils, abs 0.2 0.0 - 0.5 K/cumm HISTORICAL RESULTS Basophils, abs 0.0 0.0 - 0.2 K/cumm HISTORICAL RESULTS Blood specimen (specimen) 05/27/2013 3:31 AM GLAZE SUPERVISOR Gallo Sage MD LAB BLOOD ORDERABLES Final Result HISTORICAL RESULTS * VASCULAR LABORATORY REPORT (05/27/2013) Anatomical Region Laterality Modality Ultrasound Narrative 05/27/2013 Ordered by an unspecified provider. Historical Provider CV VASCULAR PROCEDURES Fi nal Result * MRI Brain W WO Contrast (05/25/2013 8:56 PM GLAZE SUPERVISOR) Anatomical Region Laterality Modality Head and Neck N/A Magnetic Resonan ce 05/25/2013 8:56 PM GLAZE SUPERVISOR Narrative 05/26/2013 1:17 PM GLAZE SUPERVISOR ROSALBA CANCINO M.D. JENNIFER WILLINGHAM M.D. FINAL REPORT The radiology attending physician has personally reviewed this study, and has reviewed and/or edited this written report and agrees with it. ACC# ??Date Time ??Exam [id number] May 25, 2013 20:56:00 [id number] MRI Brain wo&with contrast ACC# ??Date Time ??Exam [id number] May 25, 2013 20:56:00 [id number] MRI Brain wo&with contrast EXAMINATION: ?? Magnetic resonance imaging (MRI) of the brain and brainstem without and with contrast HISTORY: Right facial erythema over incision scar. A 48-year-old man with epilepsy status post right-sided amygdalohippocampectomy on May 02, 2013. On exam he was found to have erythema and tenderness over the incision site near the right tragus. TECHNIQUE: ?? Multiplanar, multisequences were performed as part of a general brain protocol. Contrast information: Intravenous contrast used: Multihance 0.1mmol/kg, 20 mL. COMPARISON: Noncontrast head CT dated 05/25/2013 at 1457 hours. FINDINGS: ?? As seen on the head CT, there are note changes of right temporal craniotomy and amygdalohippocampectomy. There are blood products and fluid within the resection cavity. There is a trace amount of extra-axial fluid that is rim-enhancing, FLAIR hyperintense and diffusion restricting, underneath the craniotomy site measuring a maximal 5 mm in thickness. There is subcutaneous edema and stranding overlying the craniotomy site without a drainable fluid collection to suggest abscess. Several small reactive lymph nodes are present within the right parotid gland and right neck. There is a small amount of fluid within the right mastoid. There is no diffusion restricting fluid collection within the resection cavity. 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 An incidental right occipital developmental venous anomaly is present. Visualized portions of the orbits and paranasal sinuses are unremarkable. Normal flow voids are present within the carotid and basilar arteries. ?? IMPRESSION: ?? 1. Postoperative changes of right temporal craniotomy and amygdalohippocampectomy. 2. There is a subcutaneous edema that overlies the craniotomy site with adjacent reactive lymph nodes. These findings may be evolving typical postoperative change, but a superimposed infection is also possible. No extracranial abscess. 3. There is a small extracranial fluid collection below the temporal craniotomy that may be postoperative, but superimposed infection is possible. No abscess is seen within the resection cavity, which contains typical postoperative blood products. A preliminary report was provided by Dr. Ricci to Dr. Vazquez at 2145 hours on 05/25/2013. The above findings were then discussed by Dr. Willingham with Lola Valle, CLARK, at 1020 hours on 05/26/2013. ?? Requested By: KARL PANTOJA M.D. Dictated By: ?? JENNIFER WILLINGHAM M.D. ??on May 26 2013 10:22A This document has been electronically signed by: ROSALBA CANCINO M.D. on May 26 2013 ??1:17P Procedure Note Provider, MD Kareem - 09/13/2016 Almaz MAJANO M.D. FINAL REPORT The radiology attending physician has personally reviewed this study, and has reviewed and/or edited this written report and agrees with it. ACC# Date Time Exam [id number] May 25, 2013 20:56:00 [id number] MRI Brain wo&with contrast ACC# Date Time Exam [id number] May 25, 2013 20:56:00 [id number] MRI Brain wo&with contrast EXAMINATION: Magnetic resonance imaging (MRI) of the brain and brainstem without and with contrast HISTORY: Right facial erythema over incision scar. A 48-year-old man with epilepsy status post right-sided amygdalohippocampectomy on May 02, 2013. On exam he was found to have erythema and tenderness over the incision site near the right tragus. TECHNIQUE: Multiplanar, multisequences were performed as part of a general brain protocol. Contrast information: Intravenous contrast used: Multihance 0.1mmol/kg, 20 mL. COMPARISON: Noncontrast head CT dated 05/25/2013 at 1457 hours. FINDINGS: As seen on the head CT, there are note changes of right temporal craniotomy and amygdalohippocampectomy. There are blood products and fluid within the resection cavity. There is a trace amount of extra-axial fluid that is rim-enhancing, FLAIR hyperintense and diffusion restricting, underneath the craniotomy site measuring a maximal 5 mm in thickness. There is subcutaneous edema and stranding overlying the craniotomy site without a drainable fluid collection to suggest abscess. Several small reactive lymph nodes are present within the right parotid gland and right neck. There is a small amount of fluid within the right mastoid. There is no diffusion restricting fluid collection within the resection cavity. 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 An incidental right occipital developmental venous anomaly is present. Visualized portions of the orbits and paranasal sinuses are unremarkable. Normal flow voids are present within the carotid and basilar arteries. IMPRESSION: 1. Postoperative changes of right temporal craniotomy and amygdalohippocampectomy. 2. There is a subcutaneous edema that overlies the craniotomy site with adjacent reactive lymph nodes. These findings may be evolving typical postoperative change, but a superimposed infection is also possible. No extracranial abscess. 3. There is a small extracranial fluid collection below the temporal craniotomy that may be postoperative, but superimposed infection is possible. No abscess is seen within the resection cavity, which contains typical postoperative blood products. A preliminary report was provided by Dr. Ricci to Dr. Vazquez at 2145 hours on 05/25/2013. The above findings were then discussed by Dr. Willingham with CLARK Valles, at 1020 hours on 05/26/2013. Requested By: KARL PANTOJA M.D. Dictated By: JENNIFER WILLINGHAM M.D. on May 26 2013 10:22A This document has been electronically signed by: ROSALBA CANCINO M.D. on May 26 2013 1:17P Historical Provider IMG MRI PROCEDURES Final Result * (ABNORMAL) Serum nortriptyline drug level (05/25/2013 5:31 PM GLAZE SUPERVISOR) Nortriptyline 377(C) 70 - 170 ng/ml HISTORICAL RESULTS Comment: Critical result called to Gallo churchill) on 05/28/2013 17:14:49 GLAZE SUPERVISOR by CAT. Interpretive Data Due to an analytical interference, patients taking sertraline may have falsely low results and patients taking clomipramine and amlodipine may have falsely elevated results. Testing performed by: [facility], [place] [address] Current interpretive data was last revised on 2007. Serum 05/25/2013 5:31 PM GLAZE SUPERVISOR us Janice Plata MD LAB BLOOD ORDERABLES Fin al Result HISTORICAL RESULTS * Urine drug screen (05/25/2013 3:59 PM GLAZE SUPERVISOR) Amphetamine, ur None detected HISTORICAL RESULTS Comment: Interpretive Data Immunoassay Screen cutoff level 300 ng/mL. Drug results are to be used only for medical purposes. ??All results, especially unconfirmed screening results, must not be used for non medical purposes. Current interpretive data was last revised 2006. Barbiturates, ur None detected HISTORICAL RESULTS Comment: Interpretive Data Immunoassay Screen cutoff level 200 ng/mL. Drug results are to be used only for medical purposes. ??All results, especially unconfirmed screening results, must not be used for non medical purposes. Current interpretive data was last revised 2006. Benzodiazepines, ur None detected HISTORICAL RESULTS Comment: Interpretive Data Immunoassay Screen cutoff level 200 ng/mL. Drug results are to be used only for medical purposes. ??All results, especially unconfirmed screening results, must not be used for non medical purposes. Current interpretive data was last revised 2006. Cannabinoids, ur None detected HISTORICAL RESULTS Comment: Interpretive Data Immunoassay Screen cutoff level 50 ng/mL. Drug results are to be used only for medical purposes. ??All results, especially unconfirmed screening results, must not be used for non medical purposes. Current interpretive data was last revised 06. Cocaine, ur None detected HISTORICAL RESULTS Comment: Interpretive Data Immunoassay Screen cutoff level 150 ng/mL. Drug results are to be used only for medical purposes. ??All results, especially unconfirmed screening results, must not be used for non medical purposes. Current interpretive data was last revised 2006. Opiates, qual, ur None detected HISTORICAL RESULTS Comment: Interpretive Data Immunoassay Screen cutoff level 300 ng/mL. Drug results are to be used only for medical purposes. ??All results, especially unconfirmed screening results, must not be used for non medical purposes. Current interpretive data was last revised 2006. Phencyclidine, qual, ur None detected HISTORICAL RESULTS Comment: Interpretive Data Immunoassay Screen cutoff level 25 ng/mL. Drug results are to be used only for medical purposes. ??All results, especially unconfirmed screening results, must not be used for non medical purposes. Current interpretive data was last revised 2006. Urine 05/25/2013 3:59 PM GLAZE SUPERVISOR Karl Pantoja MD LAB BLOOD ORDERABLES F inal Result Performing Organization Address [facility] de Phone Number HISTORICAL RESULTS * Urinalysis (05/25/2013 3:59 PM GLAZE SUPERVISOR) Color, ur Yellow Yellow HISTORICAL RESULTS Clarity, ur Clear Clear HISTORIC AL RESULTS Specific gravity, ur 1.012 1.003 - 1.030 HISTORICAL RESULTS pH, ur 5.0 5.0 - 8.0 HISTORICAL RESULTS Protein, ur Negative Trace HISTORIC AL RESULTS Glucose, ur Negative Negative HISTORIC AL RESULTS Ketones, ur Negative Negative HISTORIC AL RESULTS Bilirubin, ur Negative Negative HISTOR ICAL RESULTS U Blood Negative Negative HISTORICAL RESULTS Urobilinogen, quant, ur <2.0 0.0 - 2.0 mg/dl HISTORICAL RESULTS Nitrites, ur Negative Negative HISTORI BAMBI RESULTS Leukocyte esterase, ur Negative Negative HISTORICAL RESULTS Urine 05/25/2013 3:59 PM GLAZE SUPERVISOR Karl Pantoja MD LAB BLOOD ORDERABLES F inal Result Performing Organization Address [facility] Phone Number HISTORICAL RESULTS * Serum thyroid-stimulating hormone (TSH) (05/25/2013 3:59 PM GLAZE SUPERVISOR) Pathologist [facility] TSH 3.55 0.35 - 5.50 mcIUnits/m l HISTORICAL RESULTS Comment: Interpretive Data Hyperthyroid: ??<0.1 mcIUnit/mL Hypothyroid: ??>12.0 mcIUnit/mL Current interpretive data was last revised on 00. Serum 05/25/2013 3:59 PM GLAZE SUPERVISOR Karl Pantoja MD LAB BLOOD ORDERABLES F inal Result Performing Organization Address [facility] de Phone Number HISTORICAL RESULTS * Serum C-reactive protein (05/25/2013 3:59 PM GLAZE SUPERVISOR) C-RP 5.1 0.0 - 9.9 mg/L HISTORICAL RESULTS Serum 05/25/2013 3:59 PM GLAZE SUPERVISOR Karl Pantoja MD LAB BLOOD ORDERABLES F inal Result Performing Organization Address [facility] de Phone Number HISTORICAL RESULTS * (ABNORMAL) Serum ethanol (05/25/2013 3:59 PM GLAZE SUPERVISOR) Ethanol, sr <10(L) 0 - 10 mg/dl HISTORICAL RESULTS Comment: Interpretive Data: If ethanol is the only drug taken, the blood level can be roughly correlated with the clinical findings: 0 - 100 mg/dL ?? Subclinical findings 100-200 mg/dL ?? Emotional instability 150-200 mg/dL ?? Confusion 250-400 mg/dL ?? Stupor 350-500 mg/dL ?? Coma 500-up ??mg/dL ?? Possible Current interpretive data was last revised on 2008. Serum 05/25/2013 3:59 PM GLAZE SUPERVISOR Karl Pantoja MD LAB BLOOD ORDERABLES F inal Result Performing Organization Address [facility] de Phone Number HISTORICAL RESULTS * (ABNORMAL) Serum valproic acid drug level (05/25/2013 3:59 PM GLAZE SUPERVISOR) Valproic acid 20(L) 50 - 100 mcg/ml HISTORICAL RESULTS Comment: [...] data was last revised on 2001. Serum 05/25/2013 3:59 PM GLAZE SUPERVISOR Karl Pantoja MD LAB BLOOD ORDERABLES F inal Result Performing Organization Address [facility] de Phone Number HISTORICAL RESULTS * Plasma partial thromboplastin time (PTT) (05/25/2013 3:58 PM GLAZE SUPERVISOR) APTT 30.5 25.0 - 37.0 seconds HISTORICAL RESULTS Comment: Interpretive Data Therapeutic heparin range:60.0 - 94.0 sec based on correlation with therapeutic heparin activity range of 0.3 -0.7 Units/mL. Current interpretive data was last revised on 2011. Plasma 05/25/2013 3:58 PM GLAZE SUPERVISOR Karl Pantoja MD LAB BLOOD ORDERABLES F inal Result HISTORICAL RESULTS * Plasma prothrombin time (PT) (05/25/2013 3:58 PM GLAZE SUPERVISOR) Prothrombin time (PT) 11.5 9.0 - 12.0 seconds HISTORICAL RESULTS INR 1.09 0.90 - 1.20 HISTORIC AL RESULTS Comment: Interpretive Data Inpatient therapeutic ranges* Atrial fibrillation ?2.0-3.0 INR Venous thrombo-embolism ?2.0-3.0 INR Bioprosthetic heart valve ?* Mechanical heart valve, bileaflet or tilting disk,aortic position ? 2.0-3.0 INR All other,or bileaflet or tilting disk, in mitral position ? 2.5-3.5 INR *See the pharmacy resource directory (PHRED) for an updated copy of the Tool Book at [email or web address] Current Interpretive Data was last revised 2011. Plasma 05/25/2013 3:58 PM GLAZE SUPERVISOR Karl Pantoja MD LAB BLOOD ORDERABLES F inal Result Performing Organization Address [facility] de Phone Number HISTORICAL RESULTS * (ABNORMAL) Plasma basic metabolic panel (05/25/2013 3:00 PM GLAZE SUPERVISOR) Sodium 141 135 - 145 mmol/L HISTORICAL RESULTS K, pl 3.7 3.3 - 4.9 mmol/L HISTORICAL RESULTS Chloride 110 97 - 110 mmol/L HISTORICAL RESULTS CO2 21(L) 22 - 32 mmol/L HISTORICAL RESULTS A. gap 10 0 - 16 mmol/L HISTORICAL RESULTS Glucose 82 70 - 199 mg/dl HISTORICAL RESULTS BUN 10 8 - 25 mg/dl HISTORICAL RESULTS Creatinine 0.72 0.70 - 1.30 mg/dl HISTORICAL RESULTS Calcium 9.3 8.6 - 10.3 mg/dl HISTORICAL RESULTS Plasma 05/25/2013 3:00 PM GLAZE SUPERVISOR Karl Pantoja MD LAB BLOOD ORDERABLES F inal Result Performing Organization Address [facility] de Phone Number HISTORICAL RESULTS * (ABNORMAL) Blood cell count (CBC) (05/25/2013 3:00 PM GLAZE SUPERVISOR) WBC 6.6 3.8 - 9.8 K/cumm HISTORICAL RESULTS RBC 4.37(L) 4.50 - 5.70 M/cumm HISTORICAL RESULTS Hgb 12.1(L) 13.8 - 17.2 g/dl HISTORICAL RESULTS Hct 36.2(L) 40.7 - 50.3 % HISTORICAL RESULTS MCV 82.8 80.0 - 97.6 fl HISTORICAL RESULTS MCH 27.7 26.7 - 33.7 pg HISTORICAL RESULTS MCHC 33.5 32.7 - 35.5 g/dl HISTORICAL RESULTS Rdw 14.7(H) 11.8 - 14.6 % HISTORICAL RESULTS Platelets 295 140 - 440 K/cumm HISTORICAL RESULTS MPV 7.0 6.8 - 10.4 fl HISTORICAL RESULTS Neutrophils 47.1 38.7 - 74.5 % HISTORICAL RESULTS Lymphocytes 41.2 20.0 - 54.3 % HISTORICAL RESULTS Monos 8.5 4.3 - 13.5 % HISTORICAL RESULTS Eosinophils 3.1 0.0 - 6.0 % HISTORICAL RESULTS Basophils 0.1 0.0 - 3.0 % HISTORICAL RESULTS Neutrophils, abs 3.1 1.8 - 6.6 K/cumm HISTORICAL RESULTS Lymphocytes, abs 2.7 1.2 - 3.3 K/cumm HISTORICAL RESULTS Monocytes, absolute 0.6 0.2 - 1.2 K/cumm HISTORICAL RESULTS Eosinophils, abs 0.2 0.0 - 0.5 K/cumm HISTORICAL RESULTS Basophils, abs 0.0 0.0 - 0.2 K/cumm HISTORICAL RESULTS Blood specimen (specimen) 05/25/2013 3:00 PM GLAZE SUPERVISOR Karl Pantoja MD LAB BLOOD ORDERABLES F inal Result HISTORICAL RESULTS * Blood erythrocyte sedimentation rate (ESR) (05/25/2013 3:00 PM GLAZE SUPERVISOR) Erythrocyte sedimentation rate 10.0 0.0 - 12.0 mm/hr HISTORICAL RESULTS Blood specimen (specimen) 05/25/2013 3:00 PM GLAZE SUPERVISOR Karl Pantoja MD LAB BLOOD ORDERABLES F inal Result HISTORICAL RESULTS * CT Head WO Contrast (05/25/2013 2:57 PM GLAZE SUPERVISOR) Anatomical Region Laterality Modality Head and Neck N/A Computed Tomogra phy 05/25/2013 2:57 PM GLAZE SUPERVISOR Narrative 05/25/2013 9:04 PM GLAZE SUPERVISOR KATTY TREADWELL MD, PHD KE CARLOS, FINAL REPORT The radiology attending physician has personally reviewed this study, and has reviewed and/or edited this written report and agrees with it. ACC# ??Date Time ??Exam [id number] May 25, 2013 14:57:[id number] Head or Brain w/o cont EXAMINATION: ?? Noncontrast head CT HISTORY: Mental status changes, status post right hippocampal/amygdalectomy on 05/02/2013. TECHNIQUE: Noncontrast CT of the brain was performed with axial images acquired from skull base to vertex. COMPARISON: 05/21/2013 FINDINGS: Postsurgical changes of right temporal craniotomy with a resection cavity in the region of the right hippocampus and amygdala appear stable since the prior examination including a small amount of evolving hematoma in the resection bed. There are no new acute intra or extra-axial fluid collections. No mass effect or midline shift. Ventricles are normal in size, shape, and morphology. Aside from the postsurgical changes, the driver-white matter differentiation is normal. There is a small amount of fluid in the right mastoids. No fractures are identified and visualized portions of the orbits, paranasal sinuses, and mastoids are otherwise normal. IMPRESSION: ?? 1. Stable postsurgical changes of right temporal lobectomy with no acute intracranial process identified. Requested By: KATE BORGES M.D. Dictated By: ?? KE CARLOS, ?? on May 25 2013 ??3:05P This document has been electronically signed by: KATTY TREADWELL MD, PHD on May 25 2013 ??9:04P Procedure Note Provider, MD Kareem - 09/13/2016 KATTY TREADWELL MD, PHD KE CARLOS, FINAL REPORT The radiology attending physician has personally reviewed this study, and has reviewed and/or edited this written report and agrees with it. ACC# Date Time Exam [id number] May 25, 2013 14:57:[address] Head or Brain w/o cont EXAMINATION: Noncontrast head CT HISTORY: Mental status changes, status post right hippocampal/amygdalectomy on 05/02/2013. TECHNIQUE: Noncontrast CT of the brain was performed with axial images acquired from skull base to vertex. COMPARISON: 05/21/2013 FINDINGS: Postsurgical changes of right temporal craniotomy with a resection cavity in the region of the right hippocampus and amygdala appear stable since the prior examination including a small amount of evolving hematoma in the resection bed. There are no new acute intra or extra-axial fluid collections. No mass effect or midline shift. Ventricles are normal in size, shape, and morphology. Aside from the postsurgical changes, the driver-white matter differentiation is normal. There is a small amount of fluid in the right mastoids. No fractures are identified and visualized portions of the orbits, paranasal sinuses, and mastoids are otherwise normal. IMPRESSION: 1. Stable postsurgical changes of right temporal lobectomy with no acute intracranial process identified. Requested By: KATE BORGES M.D. 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
--- OUTSIDE RECORDS SUMMARY | 2024-05-24 02:10 | XMS_ITS | Encounter Summary ---
Author Organization [facility] Healthcare Address [address] [place] [address] Care Team Providers Care Assistant Case Manager Name Role Phone Sergey Wilson MD Primary Care Provider [phone] Encounter Details Date Type Department Care Team (Latest Contact Info) Description 07/23/2017 7:52 AM CDT - 07/26/2017 6:41 PM CDT Hospital Encounter 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 Gender Identity Not on file Sexual Orientation Not on file documented as of this encounter Last Filed Vital Signs Vital Sign Reading Time Taken Comments Blood Pressure 131/72 07/26/2017 1:46 PM CDT Pulse 90 07/26/2017 1:46 PM CDT Temperature - - Respiratory Rate - - Oxygen Saturation 99% 07/26/2017 1:46 PM CDT Inhaled Oxygen Concentration - - Weight 103.4 kg (227 lb 15.6 oz) 2017 12:25 PM CDT Height 177.8 cm (5' 10 ) 07/23/2017 12: 25 PM CDT Body Mass Index 32.71 07/23/2017 12:25 PM CDT documented in this encounter Medications at Time of Discharge cyanocobalamin/fo lic acid (vitamin I98-xhita acid) 2,500-400 mcg tablet,disintegra ting 05/14/1969 naproxen sodium 220 mg capsule ALEVE CAPSULE 05/14/1969 ADVAIR DISKUS 250-50 mcg/dose diskus inhaler INL 1 PUFF PO BID 6 07/23/2017 03/22/2019 aspirin 81 mg chewable tablet GARMENT LINER 1 T PO D 5 07/23/2017 019 cholecalciferol (VITAMIN D-3) 50,000 unit capsule 06/08/2017 03/22/2019 divalproex ER (DEPAKOTE ER) 500 mg [...] Procedure Name Priority Date/Time Associated Diagnosis Comments VIDEO ELECTROENCEPHALOGRAPHI C EXAM REPORT 07/23/2017 documented in this encounter Results * VIDEO ELECTROENCEPHALOGRAPHIC EXAM REPORT (07/23/2017) Anatomical Region Laterality Modality Ultrasound us Provider Scanning CV ECHO PROCEDURES Final Resul t documented in this encounter Visit Diagnoses Not on filedocumented in this encounter Care Teams Assistant Case Manager Relationship Specialty Start Date End Date Sergey Wilson MD PCP - General 09/20/16 documented as of this encounter
--- OUTSIDE RECORDS SUMMARY | 2024-05-24 02:10 | XMS_ITS | Encounter Summary ---
Author Organization [facility] Address [address] [place] [address] Care Team Providers Care Vitamin Manager Name Role Phone Sergey Wilson MD Primary Care Provider Encounter Details Date Type Department Care Team (Late st Contact Info) Description 07/11/2017 Orders Only [facility] Cardiology [address] [place] [phone] Provider, MD Kareem [address] [place] [address] Social History Tobacco Use Types Packs/Day Years Used Date Smoking Tobacco: Former Sex and Gender Information Value Date Recorded Sex Assigned at Not on file 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 Gender Identity Not on file Sexual Orientation Not on file documented as of this encounter Plan of Treatment Not on file documented as of this encounter Procedures Procedure Name Priority Date/Time Associated Diagnosis Comments STRESS TEST PHARMACOLOGIC Routine 06/28/2017 documented in this encounter Results * Stress Test Only Pharmacologic (06/28/2017) Anatomical Region Laterality Modality Other Historical Provider CV STRESS PROCEDURES Adeline l Result documented in this encounter Visit Diagnoses Not on filedocumented in this encounter Care Teams Vitamin Manager Relationship Specialty Start Date End Date Sergey Wilson MD PCP - General 09/20/16 documented as of this encounter
--- OUTSIDE RECORDS SUMMARY | 2024-05-24 02:10 | XMS_ITS | Encounter Summary ---
Author Organization [facility] Healthcare Address [address] [place] [address] Care Team Providers Care Vocational Ed Instructor Name Role Phone Sergey Wilson MD Primary Care Provider [phone] Encounter Details Date Type Department Care Team (Late st Contact Info) Description 09/20/2016 12:18 PM CDT - 09/20/2016 4:00 PM CDT [facility] Emergency Department [address] [place] [address] [place] [id number] [place] [address] [id number] [place] [id number] Discharge Disposition: Discharge to home or self care Social History Tobacco Use Types Packs/Day Years Used Date Smoking Tobacco: Former Sex and Gender Information Value Date Recorded Sex Assigned at Not on file 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 Gender Identity Not on file Sexual Orientation Not on file documented as of this encounter Medications at Time of Discharge cyanocobalamin/fo lic acid (vitamin V22-jqbkr acid) 2,500-400 mcg tablet,disintegra ting 05/14/1969 naproxen [...] Procedure Name Priority Date/Time Associated Diagnosis Comments PRE-PRELIMINARY CT SCAN REPORT Routine 09/20/2016 8:[address] HEAD WO CONTRAST Routine 09/20/2016 8 :20 PM CDT documented in this encounter Results * CT Head WO Contrast (09/20/2016 8:20 PM CDT) Anatomical Region Laterality Modality Head and Neck N/A Computed Tomogra phy 09/20/2016 8:20 PM CDT Narrative 09/20/2016 8:20 PM CDT DATE OF EXAM: ??Sep 20 2016 ??3:20PM Acc#: ??[id number] ??ECT 0022 - CT Head WO ?? DIAGNOSIS: ??SYNCOPE CLINICAL HISTORY: ? RESULT: EXAMINATION: CT Head WO DATE: 09/20/2016 3:20 PM HISTORY: 51-year-old man syncope ataxia FINDINGS: Specimen Technician radiograph demonstrates a previous craniotomy in the temporal region. ??Patient is edentulous. ??Axial images demonstrate mild atrophy with prominent ventricles and sulci. ??There is no midline shift mass effect or hemorrhage. ??Encephalomalacic changes are seen in the right temporal lobe deep to the surgical site. ??No acute event is seen. ??Bone windows demonstrate a right temporal craniotomy defect. IMPRESSION: NO ACUTE FINDINGS. ??POSTSURGICAL CHANGES OF A RIGHT TEMPORAL CRANIOTOMY WITH ENCEPHALOMALACIA IN THE RIGHT TEMPORAL LOBE. ??MILD ATROPHY. Electronically signed by: Justin Anton M.D. ? ORTHODONTIST: ??PSC TRANSCRIBE DATE/TIME: ??Sep 20 2016 ??3:24P RADIOLOGIST: ??JUSTIN ANTON M.D. ??READ ON: ??Sep 20 2016 ??3:28P ORDERING DR: ARVIN BAILEY M.D. THIS DOCUMENT HAS BEEN ELECTRONICALLY SIGNED BY: ??JUSTIN ANTON M.D. ??ON: ??Sep 20 2016 ??3:24P Attending: ??LEO, ??ARVIN Requesting: ??LEO, ??ARVIN Requesting Fax: ??-- Attending Fax: ??[phone] Attending ID: ??[id number] Requesting ID: ??[id number] Report To 1 ID: ?? Report To 1 Name: ??, ?? Report To 1 FAX: ??-- Report To 2 ID: ?? Report To 2 Name: ??, ?? Report To 2 FAX: ??-- NextGen Order #: ?? Procedure Note Miscellaneous, Not In File / Provider, MD Kareem - 10/07/2016 DATE OF EXAM: Sep 20 2016 3:20PM Acc#: [id number] ECT 0022 - CT Head WO DIAGNOSIS: SYNCOPE CLINICAL HISTORY: RESULT: EXAMINATION: CT Head WO DATE: 09/20/2016 3:20 PM HISTORY: 51-year-old man syncope ataxia FINDINGS: Specimen Technician radiograph demonstrates a previous craniotomy in the temporal region. Patient is edentulous. Axial images demonstrate mild atrophy with prominent ventricles and sulci. There is no midline shift mass effect or hemorrhage. Encephalomalacic changes are seen in the right temporal lobe deep to the surgical site. No acute event is seen. Bone windows demonstrate a right temporal craniotomy defect. IMPRESSION: NO ACUTE FINDINGS. POSTSURGICAL CHANGES OF A RIGHT TEMPORAL CRANIOTOMY WITH ENCEPHALOMALACIA IN THE RIGHT TEMPORAL LOBE. MILD ATROPHY. Electronically signed by: Justin Anton M.D. ORTHODONTIST: [employer] TRANSCRIBE DATE/TIME: Sep 20 2016 3:24P RADIOLOGIST: JUSTIN ANTON M.D. READ ON: Sep 20 2016 3:28P ORDERING DR: ARVIN BAILEY M.D. THIS DOCUMENT HAS BEEN ELECTRONICALLY SIGNED BY: JUSTIN ANTON M.D. ON: Sep 20 2016 3:24P Attending: ARVIN BAILEY Requesting: ARVIN BAILEY Requesting Fax: -- Attending Attending ID: [id number] Requesting ID: [id number] Report To 1 ID: Report To 1 Name: , Report To 1 FAX: -- Report To 2 ID: Report To 2 Name: , Report To 2 FAX: -- NextGen Order #: us Not In File Miscellaneous IMG CT PROCEDURES Adeline l Result * PRE-PRELIMINARY CT SCAN REPORT (09/20/2016 8:20 PM CDT) Anatomical Region Laterality Modality N/A Computed Tomogra phy 09/20/2016 8:20 PM CDT Narrative 09/20/2016 8:20 PM CDT ED STAT IMAGING PRELIMINARY RESULT [facility] PATIENT: ?? REJI ??TAMMY MR#: ?? [id number] : 1965 AGE / SEX: ?? 51Y / M Procedure: ECT 0022 - CT Head WO Exam Date: ?? Sep 20 2016 ??3:20PM ?Loc: [id number] Acc#: ?? [id number] Pt_Class at Time of Procedure: E Current Pt Class and Location: ?? E ?ERD Requesting Location: [facility] Priority: ??STAT Reason: Order Comments: Narda Malik: ?? ARVIN ??LEO ??Almaz Preliminary Reading Doctor: ??JUSTIN ANTON M.D., CHIEF RADIOLOGIST Completed on: ??Sep 20 2016 ??3:24PM Call Results Info: Patient Waiting: Call Report to: Phone: Fax: Comments: ----- Please be advised this is only a preliminary report. If at time of image reporting a significant discrepancy or new finding is noted it will be communicated to the Emergency Department via the ED discrepancy pathway. READ ANY COMMENTS BELOW Findings: ? Abnormal Comments Line 1: ?NO ACUTE FINDINGS. ??POSTSURGICAL CHANGES OF A RIGHT TEMPORAL CRANIOTOMY WITH ENCEPHALOMALACIA IN THE RIGHT TEMPORAL LOBE. ??MILD ATROPHY. Comments Line 2: Comments Line 3: Comments Line 4: Comments Line 5: Procedure Note Miscellaneous, Not In File / Provider, MD Kareem - 10/07/2016 ED STAT IMAGING PRELIMINARY RESULT [facility] PATIENT: REJI BRANCH MR#: [id number] : 1965 AGE / SEX: 51Y / M Procedure:ECT 0022 - CT Head WO Exam Date: Sep 20 2016 3:20PM Loc:[id number] Acc#: [id number] Pt_Class at Time of Procedure: E Current Pt Class and Location: E ERD [facility]ing Location: [facility] Priority: STAT Reason: Order Comments: Ord Dr: ARVIN BAILEY M.D. Preliminary Reading Doctor: JUSTIN ANTON M.D., CHIEF RADIOLOGIST Completed on: Sep 20 2016 3:24PM Call Results Info: Patient Waiting: Call Report to: Phone: Fax: Comments: ----- Please be advised this is only a preliminary report. If at time of imagereporting a significant discrepancy or new finding is noted it will becommunicated to the Emergency Department via the ED discrepancy pathway. READ ANY COMMENTS BELOW Findings: Abnormal Comments Line 1: NO ACUTE FINDINGS. POSTSURGICAL CHANGES OF ARIGHT TEMPORAL CRANIOTOMY WITH ENCEPHALOMALACIA IN THE RIGHT TEMPORALLOBE. MILD ATROPHY. Comments Line 2: Comments Line 3: Comments Line 4: Comments Line 5: us Not In File Miscellaneous IMG CT PROCEDURES Adeline l Result documented in this encounter Visit Diagnoses Not on filedocumented in this encounter Care Teams Vocational Ed Instructor Relationship Specialty Start Date End Date Sergey Wilson MD PCP - General 09/20/16 documented as of this encounter
--- OUTSIDE RECORDS SUMMARY | 2024-05-24 02:10 | XMS_ITS | Encounter Summary ---
Author Organization [facility] Healthcare Address [address] [place] [address] Care Team Providers Care Silica Spray Mixer Name Role Phone Sergey Wilson MD Primary Care Provider [phone] Encounter Details Date Type Department Care Team (Latest Contact Info) Description 06/27/2017 10:21 PM PROTOTYPE FABRICATOR - 06/27/2017 11:59 PM PROTOTYPE FABRICATOR Hospital Encounter [facility] Discharge Disposition: Discharge to home or self care Social History Tobacco Use Types Packs/Day Years Used Date Smoking Tobacco: Former Sex and Gender Information Value Date Recorded Sex Assigned at Not on file 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 PROTOTYPE FABRICATOR Gender Identity Not on file Sexual Orientation Not on file documented as of this encounter Medications at Time of Discharge cyanocobalamin/fo lic acid (vitamin Y24-tuwna acid) 2,500-400 mcg tablet,disintegra ting 05/14/1969 naproxen sodium 220 mg capsule ALEVE CAPSULE 05/14/1969 cholecalciferol (VITAMIN D-3) 50,000 unit capsule 06/08/2017 [...] on filedocumented in this encounter Care Teams Silica Spray Mixer Relationship Specialty Start Date End Date Sergey Wilson MD PCP - General 09/20/16 documented as of this encounter
--- OUTSIDE RECORDS SUMMARY | 2024-05-24 02:10 | XMS_ITS | Encounter Summary ---
Author Organization [facility] Facility Care Team Providers Care X Ray Equipment Tester Name Role Phone Unavailable Primary Care Provider Unavailabl e Encounter Details Date Type Department Care Team (Late st Contact Info) Description 12/29/2013 1:33 PM CDT - 12/29/2013 8:25 PM CDT Hospital [facility], Trenton García MD [address] [place] [address] Other depressive disorder; Epilepsy (HCC); Suicidal ideation; Anxiety state; Asthma; Essential hypertension; Encounter for long-term (current) use of other medications Social History Tobacco Use Types Packs/Day Years Used Date Smoking Tobacco: Former Sex and Gender Information Value Date Recorded Sex Assigned at Not on file 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 RN MDS Gender Identity Not on file Sexual Orientation Not on file documented as of this encounter Medications at Time of Discharge cyanocobalamin/fo lic acid (vitamin M62-ducdn acid) 2,500-400 mcg tablet,disintegra ting 05/14/1969 naproxen sodium 220 mg capsule ALEVE CAPSULE 05/14/1969 divalproex ER (DEPAKOTE ER) 500 mg 24 hr tablet TAKE 2 TABS QAM, 1 TAB AT NOON, AND 2 TABS QPM 02/11/2013 02/13/2018 documented as of this encounter Plan of Treatment Not on file documented as of this encounter Procedures Procedure Name Priority Date/Time Associated Diagnosis Comments SERUM ETHANOL Routine 12/29/2013 4:30 PM CDT PLASMA BASIC METABOLIC PANEL Routine 12/29/2013 4:30 PM CDT BLOOD CELL COUNT (CBC) Routine 12/29/2013 4:30 PM CDT BLOOD CELL MORPHOLOGIC EXAM Routine 12/29/2013 4:30 PM CDT DISCHARGE LABORATORY CUMULATIVE REPORT Routine 12/29/2013 12:00 AM CDT documented in this encounter Results * (ABNORMAL) Plasma basic metabolic panel (12/29/2013 4:30 PM CDT) Sodium 140 135 - 145 mmol/L HISTORICAL RESULTS K, pl 4.2 3.3 - 4.9 mmol/L HISTORICAL RESULTS Chloride 106 97 - 110 mmol/L HISTORICAL RESULTS CO2 23 22 - 32 mmol/L HISTORICAL RESULTS A. gap 11 0 - 16 mmol/L HISTORICAL RESULTS Glucose 79 70 - 199 mg/dl HISTORICAL RESULTS BUN 11 8 - 25 mg/dl HISTORICAL RESULTS Creatinine 0.68(L) 0.70 - 1.30 mg/dl HISTORICAL RESULTS Calcium 9.1 8.6 - 10.3 mg/dl HISTORICAL RESULTS Plasma 12/29/2013 4:30 PM CDT Sergey Olvera MD LAB BLOOD ORDERABLES Final Re sult HISTORICAL RESULTS * (ABNORMAL) Serum ethanol (12/29/2013 4:30 PM CDT) Ethanol, sr <10(L) 0 - 10 mg/dl [...] data was last revised on 2008. Serum 12/29/2013 4:30 PM CDT Sergey Olvera MD LAB BLOOD ORDERABLES Final Re sult HISTORICAL RESULTS * (ABNORMAL) Blood cell count (CBC) (12/29/2013 4:30 PM CDT) RBC 4.76 4.50 - 5.70 M/cumm HISTORICAL RESULTS Hgb 13.2(L) 13.8 - 17.2 g/dl HISTORICAL RESULTS Hct 39.6(L) 40.7 - 50.3 % HISTORICAL RESULTS MCV 83.2 80.0 - 97.6 fl HISTORICAL RESULTS MCH 27.7 26.7 - 33.7 pg HISTORICAL RESULTS MCHC 33.3 32.7 - 35.5 g/dl HISTORICAL RESULTS Rdw 15.6(H) 11.8 - 14.6 % HISTORICAL RESULTS WBC 7.3 3.8 - 9.8 K/cumm HISTORICAL RESULTS Comment:{WBC corrected due t o Cellular Interference.} Platelets 205 140 - 440 K/cumm HISTORICAL RESULTS MPV 8.3 6.8 - 10.4 fl HISTORICAL RESULTS Neutrophils 48.1 38.7 - 74.5 % HISTORICAL RESULTS Lymphocytes 40.2 20.0 - 54.3 % HISTORICAL RESULTS Monos 8.2 4.3 - 13.5 % HISTORICAL RESULTS Eosinophils 3.0 0.0 - 6.0 % HISTORICAL RESULTS Basophils 0.5 0.0 - 3.0 % HISTORICAL RESULTS Neutrophils, abs 3.5 1.8 - 6.6 K/cumm HISTORICAL RESULTS Lymphocytes, abs 2.9 1.2 - 3.3 K/cumm HISTORICAL RESULTS Monocytes, absolute 0.6 0.2 - 1.2 K/cumm HISTORICAL RESULTS Eosinophils, abs 0.2 0.0 - 0.5 K/cumm HISTORICAL RESULTS Basophils, abs 0.0 0.0 - 0.2 K/cumm HISTORICAL RESULTS Blood specimen (specimen) 12/29/2013 4:30 PM CDT Sergey Olvera MD LAB BLOOD ORDERABLES Final Re sult HISTORICAL RESULTS * Blood cell morphologic exam (12/29/2013 4:30 PM CDT) Morphology scrn Original results obtained required verification by alternate method(s). Refer to CBC and/or observation sections for detailed results HISTORICAL RESULTS Observation Although the platelets are clumped on the slide, they appear adequate to increased in number HISTORICAL RESULTS Blood specimen (specimen) 12/29/2013 4:30 PM CDT us Sergey Olvera MD LAB BLOOD ORDERABLES Final Re sult HISTORICAL RESULTS * Discharge Laboratory Cumulative Report (12/29/2013 12:00 AM CDT) 12/29/2013 Narrative HISTORICAL RESULTS - 12/30/2013 3:17 AM CDT ?[facility] ?Department of Laboratories ? [address] [facility] [place] ? [place] [address] Patient Name: ??REJI BRANCH [facility] Rec Number: [id number] Fin Number: ?[id number] Date: ?1965 Sex/Age: ? Male 48 years Admit Date: ?12/29/2013 Discharge Date: 12/29/2013 Doctor: ?Trenton Cage Facility: ?[facility] Location: ?EM-6 Chart Printed: 12/30/2013 03:17 ?? * Abnormal ?? C Critical ?? f Footnote ?? ^ Corrected ?? L Low ?? H High ? i Interp Data ?? @ Reference Lab ?Chart Type:Cumulative ? SELECTED ELECTROLYTES ?Test: Sodium ? Plasma Potassium ??Chloride ? Reference: [135-145] ??[3.3-4.9] ? [97-110] ? Units: mmol/L ? mmol/L ?mmol/L 12/29/2013 ?? 16:30:41 ?? 140 ?4.2 ? 106 ?Test: Total CO2 ??Anion Gap ? Reference: [22-32] ?[0-16] ? Units: mmol/L ? mmol/L 12/29/2013 ?? 16:30:41 ?? 23 ? 11 ? STANDARD BLOOD CHEMISTRY ?Test: BUN ? Creatinine ?? Glucose ?? Total Calcium ? Reference: [8-25] ??[0.70-1.30] ??[70-199] ??[8.6-10.3] ? Units: mg/dL ?? mg/dL ?mg/dL ? mg/dL 12/29/2013 ?? 16:30:41 ?? 11 ?0.68 ??L ?79 ?9.1 ? SERUM TOXICOLOGY ?Test: Ethanol i ? Reference: [0.0-10.0] ? Units: mg/dL 12/29/2013 ?? 16:30:41 ?? <10.0 ??L ? SERUM TOXICOLOGY 12/29/2013 16:30:41 Ethanol: Interpretive Data: If ethanol is the only drug taken, the blood level can be roughly correlated with the clinical findings: 0 - 100 mg/dL ?? Subclinical findings 100-200 mg/dL ?? Emotional instability 150-200 mg/dL ?? Confusion 250-400 mg/dL ?? Stupor 350-500 mg/dL ?? Coma 500-up ??mg/dL ?? Possible Current interpretive data was last revised on 2008. ? COMPLETE BLOOD COUNT ?Test: WBC ?RBC ?Hgb ? Reference: [3.8-9.8] ??[4.50-5.70] ??[13.8-17.2] ? Units: K/cumm ? M/cumm ? g/dL 12/29/2013 ?? 16:30:41 ?? 7.3 ??f ? 4.76 ? 13.2 ??L 12/29/2013 16:30:41 ??WBC: WBC corrected due to Cellular Interference. ?Test: Hct ?Platelet Ct ??MCV ? Reference: [40.7-50.3] ??[140-440] ?[80.0-97.6] ? Units: % ?K/cumm ? fL 12/29/2013 ?? 16:30:41 ?? 39.6 ??L ?205 ?83.2 ?Test: MCH ?MCHC ? RDW ? Reference: [26.7-33.7] ??[32.7-35.5] ??[11.8-14.6] ? Units: pg ? g/dL ? % 12/29/2013 ?? 16:30:41 ?? 27.7 ? 33.3 ? 15.6 ??H ?Test: MPV ? Reference: [6.8-10.4] ? Units: fL 12/29/2013 ?? 16:30:41 ?? 8.3 ? AUTOMATED WHITE CELL DIFFERENTIAL ?Test: Neut Pct Auto ??Lymph Pct Auto ??Chambers Pct Auto ? Reference: [38.7-74.5] ?[20.0-54.3] ? [4.3-13.5] ? Units: % ?% ? % 12/29/2013 ?? 16:30:41 ?? 48.1 ? 40.2 ?8.2 ? AUTOMATED WHITE CELL DIFFERENTIAL ?Test: Eos Pct Auto ??Baso Pct Auto ??Neut Abs Auto ? Reference: [0.0-6.0] ? [0.0-3.0] ?[1.8-6.6] ? Units: % ? % ?K/cumm 12/29/2013 ?? 16:30:41 ?? 3.0 ? 0.5 ?3.5 ?Test: Lymph Abs Auto ??Chambers Abs Auto ??Eos Abs Auto ? Reference: [1.2-3.3] ? [0.2-1.2] ?[0.0-0.5] ? Units: K/cumm ?K/cumm ? K/cumm 12/29/2013 ?? 16:30:41 ?? 2.9 ? 0.6 ?0.2 ?Test: Baso Abs Auto ??Morph Screen ??Observation ? Reference: [0.0-0.2] ? Units: K/cumm 12/29/2013 ?? 16:30:41 ?? 0.0 ?See Below ? See Below 12/29/2013 ??16:30:41 ??Morph Screen ? Original results obtained required verification by alternate ? method(s). ??Refer to CBC and/or observation sections for detailed ? results. 12/29/2013 ??16:30:41 ??Observation ? Although the platelets are clumped on the slide, they appear adequate ? to increased in number. ? CANCELLED TESTS Date ?Time ?Test ? Cancel Reason 12/29/2013 ??15:32:00 ??Drug Scrn 7 us Historical Provider LAB BLOOD ORDERABLES Adeline miller Result Performing Organization Address City/State/[facility] Co de Phone Number HISTORICAL RESULTS documented in this encounter Visit Diagnoses Diagnosis Other depressive disorder Epilepsy (HCC) Unspecified epilepsy without mention of intractable epilepsy Suicidal ideation Anxiety state Anxiety state, unspecified Asthma Unspecified asthma Essential hypertension Unspecified essential hypertension Encounter for long-term (current) use of other medications documented in this encounter
--- OUTSIDE RECORDS SUMMARY | 2024-05-24 02:10 | XMS_ITS | Encounter Summary ---
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 Gender Identity Not on file Sexual Orientation Not on file documented as of this encounter Plan of Treatment Not on file documented as of this encounter Procedures Procedure Name Priority Date/Time Associated Diagnosis Comments COMPREHENSIVE METABOLIC PANEL STAT 09/23/2016 2:50 PM CDT documented in this encounter Results * (ABNORMAL) Comprehensive metabolic panel (09/23/2016 2:50 PM CDT) Sodium 138 135 - 145 mmol/L [facility] Potassium, pl 3.9 3.5 - 5.1 mmol/L [facility] CO2 22 22 - 32 mmol/L [facility] BUN 7(L) 8 - 24 mg/dL [facility] Glucose 125 70 - 199 mg/dL [facility] Creatinine 0.65(L) 0.70 - 1.40 mg/dL [facility] Calcium 9.8 8.4 - 10.5 mg/dL [facility] Chloride 101 100 - 114 mmol/L [facility] Albumin 3.6 3.2 - 4.8 g/dL [facility] AST 112(H) 7 - 40 Units/L [facility] ALT 70(H) 5 - 50 Units/L [facility] Alk phos 100 30 - 110 Units/L [facility] Bilirubin, total 0.50 0.10 - 1.30 mg/dL [facility] Protein, pl 7.0 6.0 - 8.3 g/dL [facility] Anion gap 19(H) 8 - 16 mmol/L [facility] Blood specimen (specimen) 09/23/2016 2:50 PM CDT 09/23/2016 4:52 PM CDT us Nicanor Wilson MD LAB BLOOD ORDERABLES Final Result [facility] [address] Department [place] [address] documented in this encounter Visit Diagnoses Not on filedocumented in this encounter Care Teams Ship'S Officer Relationship Specialty Start Date End Date Sergey Wilson MD PCP - General 09/20/16 documented as of this encounter
--- OUTSIDE RECORDS SUMMARY | 2024-05-24 02:10 | XMS_ITS | Encounter Summary ---
Author Organization [facility] Address [address] [place] [address] Care Team Providers Care Bacteriologist Fishery Name Role Phone Sergey Wilson MD Primary Care Provider [phone] Encounter Details Date Type Department Care Team (Late st Contact Info) Description 09/20/2016 Orders Only [facility] Palliative Care [address] [facility] [address] [place] [phone] [place] [address] [place] [address] Social History Tobacco Use Types Packs/Day Years Used Date Smoking Tobacco: Former Sex and Gender Information Value Date Recorded Sex Assigned at Not on file 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 Gender Identity Not on file Sexual Orientation Not on file documented as of this encounter Plan of Treatment Not on file documented as of this encounter Procedures Procedure Name Priority Date/Time Associated Diagnosis Comments DIFFERENTIAL AUTO STAT 09/20/2016 12: 55 PM CDT documented in this encounter Results * Differential, auto (09/20/2016 12:55 PM CDT) Neutrophil pct 40.0 % [facility] Imm gran pct 1.4 % [facility] Lymphocyte pct 45.1 % [facility] Monocyte pct 9.1 % [facility] Eosinophil pct 0.3 % [facility] Basophil pct 0.6 % [facility] Neutrophil abs 2.87 1.70 - 6.50 K/cumm [facility] Imm gran abs 0.10 0.00 - 0.10 K/cumm [facility] Lymphocyte abs 3.23 0.80 - 3.30 K/cumm [facility] Monocyte abs 0.65 0.20 - 0.80 K/cumm [facility] Eosinophil abs 0.27 0.00 - 0.50 K/cumm [facility] Basophil abs 0.04 0.00 - 0.10 K/cumm [facility] Blood specimen (specimen) 09/20/2016 12:55 PM CDT 09/20/2016 1:03 PM CDT us Arvin Linder MD LAB BLOOD ORDERABLES nal Result [facility] [address] Department [place] [address] documented in this encounter Visit Diagnoses Not on filedocumented in this encounter Care Teams Bacteriologist Fishery Relationship Specialty Start Date End Date Sergey Wilson MD PCP - General 09/20/16 documented as of this encounter
--- OUTSIDE RECORDS SUMMARY | 2024-05-24 02:10 | XMS_ITS | Encounter Summary ---
Author Organization [facility] Facility Care Team Providers Care Sales Service Coordinator Name Role Phone Unavailable Primary Care Provider Unavailabl e Encounter Details Date Type Department Care Team (Latest Contact Info) Description 10/26/2014 6:51 AM CDT - 10/31/2014 3:25 PM CDT Hospital En[facility] Rebeca, Clifton Ortega MD PhD [address] [place] [address] Partial epilepsy with intractable epilepsy (HCC); Major depressive disorder, single episode; Mixed hyperlipidemia; Essential hypertension; First degree atrioventricular block; Pruritic disorder; Esophageal reflux; Other acute pain; Asthma; Other specified disorders of skin; Accidental fall from chair; Other specified procedure as the cause of abnormal reaction of patient or of later complication; Place of occurrence, residential institution Social History Tobacco Use Types Packs/Day Years Used Date Smoking Tobacco: Former Sex and Gender Information Value Date Recorded Sex Assigned at Not on file 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 Gender Identity Not on file Sexual Orientation Not on file documented as of this encounter Last Filed Vital Signs Vital Sign Reading Time Taken Comments Blood Pressure 134/80 10/31/2014 6:00 AM CDT Pulse 80 10/31/2014 6:00 AM CDT Temperature - - Respiratory Rate - - Oxygen Saturation 100% 10/31/2014 6:00 AM CDT Inhaled Oxygen Concentration - - Weight 106.6 kg (234 lb 15.8 oz) 2014 10:55 AM CDT Height 177.8 cm (5' 10 ) 10/26/2014 10: 55 AM CDT Body Mass Index 33.72 10/26/2014 10:55 AM CDT documented in this encounter Medications at Time of Discharge cyanocobalamin/fo lic acid (vitamin J64-taedl acid) 2,500-400 mcg tablet,disintegra ting 05/14/1969 naproxen sodium 220 mg capsule ALEVE CAPSULE 05/14/1969 divalproex ER (DEPAKOTE ER) 500 mg 24 hr tablet TAKE 2 TABS QAM, 1 TAB AT NOON, AND 2 TABS QPM 02/11/2013 02/13/2018 documented as of this encounter Plan of Treatment Not on file documented as of this encounter Procedures Procedure Name Priority Date/Time Associated Diagnosis Comments ELECTROCARDIOGRAPHY (ECG) 10/26/2014 documented in this encounter Results * ELECTROCARDIOGRAPHY (ECG) (10/26/2014) Narrative 10/26/2014 Ordered by an unspecified provider. us Historical Provider ECG ORDERABLES Final Res ult documented in this encounter Visit Diagnoses Diagnosis Partial epilepsy with intractable epilepsy (HCC) Major depressive disorder, single episode Major depressive disorder, single episode, unspecified Mixed hyperlipidemia Essential hypertension Unspecified essential hypertension First degree atrioventricular block Pruritic disorder Unspecified pruritic disorder Esophageal reflux Other acute pain Asthma Unspecified asthma Other specified disorders of skin Accidental fall from chair Other specified procedure as the cause of abnormal reaction of patient or of later complication Place of occurrence, residential institution documented in this encounter
--- OUTSIDE RECORDS SUMMARY | 2024-05-24 02:10 | XMS_ITS | Encounter Summary ---
Author Organization [facility] Facility Care Team Providers Care Management Services Technician Name Role Phone Unavailable Primary Care Provider Unavailabl e Encounter Details Date Type Department Care Team (Late st Contact Info) Description 06/16/2013 2:41 PM PATTERNATOR - 06/16/2013 10:21 PM PATTERNATOR Hospital En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 Gender Identity Not on file Sexual Orientation Not on file documented as of this encounter Medications at Time of Discharge cyanocobalamin/fo lic acid (vitamin Y21-laklr acid) 2,500-400 mcg tablet,disintegra ting 05/14/1969 naproxen sodium 220 mg capsule ALEVE CAPSULE 05/14/1969 divalproex ER (DEPAKOTE ER) 500 mg 24 hr tablet TAKE 2 TABS QAM, 1 TAB AT NOON, AND 2 TABS QPM 02/11/2013 02/13/2018 documented as of this encounter Plan of Treatment Not on file documented as of this encounter Procedures Procedure Name Priority Date/Time Associated Diagnosis Comments SERUM VALPROIC ACID DRUG LEVEL Routine 06/16/2013 5:10 PM PATTERNATOR SERUM TROPONIN I Routine 06/16/2013 5:10 PM PATTERNATOR PLASMA BASIC METABOLIC PANEL Routine 06/16/2013 5:10 PM PATTERNATOR BLOOD CELL COUNT (CBC) Routine 06/16/2013 5:00 PM PATTERNATOR DISCHARGE LABORATORY CUMULATIVE REPORT Routine 06/16/2013 12:00 AM PATTERNATOR documented in this encounter Results * (ABNORMAL) Plasma basic metabolic panel (06/16/2013 5:10 PM PATTERNATOR) Sodium 141 135 - 145 mmol/L HISTORICAL RESULTS K, pl 3.8 3.3 - 4.9 mmol/L HISTORICAL RESULTS Chloride 111(H) 97 - 110 mmol/L HISTORICAL RESULTS CO2 18(L) 22 - 32 mmol/L HISTORICAL RESULTS A. gap 12 0 - 16 mmol/L HISTORICAL RESULTS Glucose 112 70 - 199 mg/dl HISTORICAL RESULTS BUN 14 8 - 25 mg/dl HISTORICAL RESULTS Creatinine 0.62(L) 0.70 - 1.30 mg/dl HISTORICAL RESULTS Calcium 9.3 8.6 - 10.3 mg/dl HISTORICAL RESULTS Plasma 06/16/2013 5:10 PM PATTERNATOR Beau Sierra MD LAB BLOOD ORDERABLES Adeline l Result HISTORICAL RESULTS * Serum troponin I (06/16/2013 5:10 PM PATTERNATOR) Troponin I <0.03 0.00 - 0.03 ng/ml HISTORICAL RESULTS Comment: Interpretive Data Serial determinations are recommended for the diagnosis of myocardial infarction (Third [place] Definition of Myocardial Infarction. ??J Am Tatiana Cardiol 2012;60:1581-98). Current interpretive data was last revised on 13. Serum 06/16/2013 5:10 PM PATTERNATOR Beau Sierra MD LAB BLOOD ORDERABLES Adeline l Result Performing Organization Address [facility] de Phone Number HISTORICAL RESULTS * Serum valproic acid drug level (06/16/2013 5:10 PM PATTERNATOR) Valproic acid 88 50 - 100 mcg/ml HISTORICAL RESULTS Comment: [...] data was last revised on 2001. Serum 06/16/2013 5:10 PM PATTERNATOR Beau Sierra MD LAB BLOOD ORDERABLES Adeline l Result Performing Organization Address [facility] de Phone Number HISTORICAL RESULTS * (ABNORMAL) Blood cell count (CBC) (06/16/2013 5:00 PM PATTERNATOR) WBC 9.1 3.8 - 9.8 K/cumm HISTORICAL RESULTS RBC 4.25(L) 4.50 - 5.70 M/cumm HISTORICAL RESULTS Hgb 11.5(L) 13.8 - 17.2 g/dl HISTORICAL RESULTS Hct 35.0(L) 40.7 - 50.3 % HISTORICAL RESULTS MCV 82.2 80.0 - 97.6 fl HISTORICAL RESULTS MCH 27.1 26.7 - 33.7 pg HISTORICAL RESULTS MCHC 32.9 32.7 - 35.5 g/dl HISTORICAL RESULTS Rdw 16.3(H) 11.8 - 14.6 % HISTORICAL RESULTS Platelets 299 140 - 440 K/cumm HISTORICAL RESULTS MPV 7.5 6.8 - 10.4 fl HISTORICAL RESULTS Neutrophils 47.5 38.7 - 74.5 % HISTORICAL RESULTS Lymphocytes 41.2 20.0 - 54.3 % HISTORICAL RESULTS Monos 6.9 4.3 - 13.5 % HISTORICAL RESULTS Eosinophils 4.1 0.0 - 6.0 % HISTORICAL RESULTS Basophils 0.3 0.0 - 3.0 % HISTORICAL RESULTS Neutrophils, abs 4.3 1.8 - 6.6 K/cumm HISTORICAL RESULTS Lymphocytes, abs 3.8(H) 1.2 - 3.3 K/cumm HISTORICAL RESULTS Monocytes, absolute 0.6 0.2 - 1.2 K/cumm HISTORICAL RESULTS Eosinophils, abs 0.4 0.0 - 0.5 K/cumm HISTORICAL RESULTS Basophils, abs 0.0 0.0 - 0.2 K/cumm HISTORICAL RESULTS Blood specimen (specimen) 06/16/2013 5:00 PM PATTERNATOR us Beau Sierra MD LAB BLOOD ORDERABLES Adeline miller Result HISTORICAL RESULTS * Discharge Laboratory Cumulative Report (06/16/2013 12:00 AM PATTERNATOR) 06/16/2013 Narrative HISTORICAL RESULTS - 06/17/2013 3:16 AM PATTERNATOR ?[facility] ?Department of Laboratories ? [address] [facility] [place] ? [place] [address] Patient Name: ??REJI BRANCH Rec Number: [id number] Fin Number: ?[id number] Date: ?1965 Sex/Age: ? Male 48 years Admit Date: ?06/16/2013 Discharge Date: 06/16/2013 Doctor: ?Clifton Gonsalez Facility: ?[facility] Location: ?EM-33 Chart Printed: 06/17/2013 03:16 ?? * Abnormal ?? C Critical ?? f Footnote ?? ^ Corrected ?? L Low ?? H High ? i Interp Data ?? @ Reference Lab ?Chart Type:Cumulative ? SELECTED ELECTROLYTES ?Test: Sodium ? Plasma Potassium ??Chloride ? Reference: [135-145] ??[3.3-4.9] ? [97-110] ? Units: mmol/L ? mmol/L ?mmol/L 06/16/2013 ?? 17:10:00 ?? 141 ?3.8 ? 111 ??H ?Test: Total CO2 ??Anion Gap ? Reference: [22-32] ?[0-16] ? Units: mmol/L ? mmol/L 06/16/2013 ?? 17:10:00 ?? 18 ??L ?12 ? STANDARD BLOOD CHEMISTRY ?Test: BUN ? Creatinine ?? Glucose ?? Total Calcium ? Reference: [8-25] ??[0.70-1.30] ??[70-199] ??[8.6-10.3] ? Units: mg/dL ?? mg/dL ?mg/dL ? mg/dL 06/16/2013 ?? 17:10:00 ?? 14 ?0.62 ??L ?112 ? 9.3 ? CARDIAC PROTEINS ?Test: Troponin I i ? Reference: [0.00-0.03] ? Units: ng/mL 06/16/2013 ?? 17:10:00 ?? <0.03 ? CARDIAC PROTEINS 06/16/2013 17:10:00 Troponin I: Interpretive Data Serial determinations are recommended for the diagnosis of myocardial infarction (Third [place] Definition of Myocardial Infarction. ??J Am Tatiana Cardiol 2012;60:1581-98). Current interpretive data was last revised on 13. ?DRUG LEVELS ?Test: Valproic Acid i ? Reference: [50.0-100.0] ? Units: mcg/mL 06/16/2013 ?? 17:10:00 ?? 87.9 06/16/2013 17:10:00 Valproic Acid: Interpretive Data Effective level to [...] interpretative data was last revised on 2001. ? COMPLETE BLOOD COUNT ?Test: WBC ?RBC ?Hgb ? Reference: [3.8-9.8] ??[4.50-5.70] ??[13.8-17.2] ? Units: K/cumm ? M/cumm ? g/dL 06/16/2013 ?? 17:00:03 ?? 9.1 ?4.25 ??L ?11.5 ??L ?Test: Hct ?Platelet Ct ??MCV ? Reference: [40.7-50.3] ??[140-440] ?[80.0-97.6] ? Units: % ?K/cumm ? fL 06/16/2013 ?? 17:00:03 ?? 35.0 ??L ?299 ?82.2 ?Test: MCH ?MCHC ? RDW ? Reference: [26.7-33.7] ??[32.7-35.5] ??[11.8-14.6] ? Units: pg ? g/dL ? % 06/16/2013 ?? 17:00:03 ?? 27.1 ? 32.9 ? 16.3 ??H ?Test: MPV ? Reference: [6.8-10.4] ? Units: fL 06/16/2013 ?? 17:00:03 ?? 7.5 ? AUTOMATED WHITE CELL DIFFERENTIAL ?Test: Neut Pct Auto ??Lymph Pct Auto ??Hall Pct Auto ? Reference: [38.7-74.5] ?[20.0-54.3] ? [4.3-13.5] ? Units: % ?% ? % 06/16/2013 ?? 17:00:03 ?? 47.5 ? 41.2 ?6.9 ?Test: Eos Pct Auto ??Baso Pct Auto ??Neut Abs Auto ? Reference: [0.0-6.0] ? [0.0-3.0] ?[1.8-6.6] ? Units: % ? % ?K/cumm 06/16/2013 ?? 17:00:03 ?? 4.1 ? 0.3 ?4.3 ?Test: Lymph Abs Auto ??Hall Abs Auto ??Eos Abs Auto ? Reference: [1.2-3.3] ? [0.2-1.2] ?[0.0-0.5] ? Units: K/cumm ?K/cumm ? K/cumm 06/16/2013 ?? 17:00:03 ?? 3.8 ??H ?0.6 ?0.4 ?Test: Baso Abs Auto ? Reference: [0.0-0.2] ? Units: K/cumm 06/16/2013 ?? 17:00:03 ?? 0.0 us Historical Provider MD LAB BLOOD ORDERABLES Adeline l Result HISTORICAL RESULTS documented in this encounter Visit Diagnoses Diagnosis Transient alteration of awareness Asthma Unspecified asthma Essential hypertension Unspecified essential hypertension Anxiety state Anxiety state, unspecified Other depressive disorder Epilepsy (HCC) Unspecified epilepsy without mention of intractable epilepsy History of surgery to other organs Encounter for long-term (current) use of other medications documented in this encounter
--- OUTSIDE RECORDS SUMMARY | 2024-05-24 02:10 | XMS_ITS | Encounter Summary ---
Author Organization [facility] Facility Care Team Providers Care Electrical Tryout Person Name Role Phone Unavailable Primary Care Provider Unavailabl e Encounter Details Date Type Department Care Team (Late st Contact Info) Description 11/25/2013 7:24 AM CDT - 11/27/2013 4:12 PM CDT 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 Gender Identity Not on file Sexual Orientation Not on file documented as of this encounter Last Filed Vital Signs Vital Sign Reading Time Taken Comments Blood Pressure 125/70 11/27/2013 1:20 PM CDT Pulse 69 11/27/2013 1:20 PM CDT Temperature - - Respiratory Rate - - Oxygen Saturation 95% 11/27/2013 1:20 PM CDT Inhaled Oxygen Concentration - - Weight 103 kg (226 lb 15.8 oz) 11/25/2013 8:47 A M CDT Height 180.3 cm (5' 11 ) 11/25/2013 8:47 AM CDT Body Mass Index 31.66 11/25/2013 8:47 AM CDT documented in this encounter Medications at Time of Discharge cyanocobalamin/fo lic acid (vitamin Z15-umzgs acid) 2,500-400 mcg tablet,disintegra ting 05/14/1969 naproxen sodium 220 mg capsule ALEVE CAPSULE 05/14/1969 divalproex ER (DEPAKOTE ER) 500 mg 24 hr tablet TAKE 2 TABS QAM, 1 TAB AT NOON, AND 2 TABS QPM 02/11/2013 02/13/2018 documented as of this encounter H&P Notes * Provider, MD Kareem - 11/25/2013 12:00 AM CDT Patient: Dennis Branch Reg No: [id number] U H #: [id number] Admit Dt.: 11/25/2013 : 1965 Room No: OTHER Attending: Clifton Jose M.D. 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 CHIEF COMPLAINT: Seizure. HISTORY OF PRESENT ILLNESS: This is a 48-year-old right handed man with a history of depression, anxiety, intractable epilepsy since [age] years old, status post right temporal lobectomy, and amygdalohippocampectomy in April of 2013, who is here for evaluation and characterization of a new seizure type. In the past, seizures have been described as; 1. Staring with loss of awareness, incontinence, and tongue biting, 2. Stomach pain, nausea, and chills with sometimes loss of consciousness, 3. Epigastric rising and chest pain, but no loss of awareness, 4. GTC with loss of consciousness, incontinence, tongue biting, followed by confusion. He underwent an extensive workup in 2012, and was deemed a surgical candidate. Right temporal lobectomy with AHC was performed in on May 02, 2013. In May following postoperative discharge from the hospital, he had multiple complaints. On May 21, he was brought to the emergency department at [facility], after claiming to have a seizure following medication noncompliance and a chest cold. He was evaluated and sent home. On May 23, he called neurosurgery complaining of headache and fatigue and was prescribed hydrocodone as needed. On May 27, he presented to the [facility] emergency department again with suicidal ideation. He was admitted. Video electroencephalogram was performed and was found to be having nonepileptic events. There was a psychiatric consultation who prescribed citalopram and a clonazepam taper. On June 07, he presented to [facility] emergency department again with a cold, confusion, and unresponsiveness. He was given a three day course of lorazepam. He currently is having three spell types. The first is described as a lightheaded floating sensation inside his head followed by electric shock to the back of his head lasting two minutes, occurring two to three times per week. There is no loss of consciousness, bowel or bladder incontinence or oral trauma. The second spell type is described as periodic stabbing pains on the right side of his head followed by tingling on the top and back of his head lasting two minutes. The third type is described as staring with unresponsiveness lasting 45 seconds. These are occurring four to six times per week. PAST MEDICAL/SURGICAL HISTORY: 1. Epilepsy status post right temporal lobectomy and amygdalohippocampectomy April of 2013. 2. Depression. 3. Anxiety. 4. Gastroesophageal reflux disease. 5. Hyperlipidemia. 6. Hypertension. 7. Asthma. 8. Left rotator cuff repair. 9. Skin debridement to the left lower extremity. MEDICATIONS: 1. Nortriptyline 75 mg p.o. b.i.d. 2. Omeprazole 20 mg p.o. daily. 3. Enalapril 10 mg p.o. daily. 4. Cyclobenzaprine 10 mg p.o. b.i.d. 5. Singulair 10 mg p.o. daily. 6. Simvastatin 20 mg p.o. daily. 7. Albuterol nebulizers inhaled t.i.d. 8. Depakote extended release 1000 mg p.o. b.i.d. 9. Topiramate 300 mg p.o. in the morning, 400 mg p.o. in the evening. ALLERGIES: No known allergies. FAMILY HISTORY: There is no known family history of neurologic disease or illness similar to the patient's. SOCIAL HISTORY: The patient is single. He lives alone. He is on disability. 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 He denies alcohol, tobacco, or recreational drugs. REVIEW OF SYSTEMS: All systems negative except as per the history of present illness and those listed below. PHYSICAL EXAMINATION: Vital Signs: Blood pressure 123/64. Heart rate 74. Respirations 20. Temperature 36.7. Constitutional: In general, well-appearing, well-nourished, pleasant, comfortable, mood appropriate. HEENT: Normocephalic, atraumatic. Conjunctiva clear. Neck: Neck with full range of motion without tenderness. Cardiovascular: Regular rate and rhythm. No murmurs or gallops. Lungs: Lungs clear to auscultation. Abdomen: Abdomen soft, nontender, and nondistended. Extremities: Pulses intact. No edema. Skin: No rashes or lesions. Neuro: Mental Status: Alert and oriented times four. Calculations were good. Presidents were good to Obama. Language: Fluent speech. Follows commands. Cranial nerves 2-12: Visual argueta full. PERRL. 3/3 to 2/2. Extraocular movements full without nystagmus. Pursuits and saccades normal. V1 through V3 intact to light touch. Face symmetric with normal strength. Hearing intact bilaterally. Palate upgoing bilaterally. Neck muscles strong. Tongue midline. No dysarthria. Motor strength is 5 out of 5 throughout. No drift. Normal tone. Fine finger movements are good. Sensation is intact to light touch. Coordination: Usgbso-bl-sctn normal. Gait and arm swing normal. Reflexes are symmetric and 1+ throughout. LABORATORY AND X-RAY DATA: 04/2008: Brain MRI showed right mesial temporal sclerosis and focal encephalomalacia and gliosis in the right lateral postcentral gyrus. 12/2008: Video electroencephalogram showed nonepileptic events. 05/2008: Video electroencephalogram with ictal SPECT showed nonepileptic events, ictal and interictal showed no seizure focus. 05/2001 and 08/1999 routine electroencephalogram were both normal. 01/2013: Video electroencephalogram with ictal SPECT revealed four right temporal onset seizures, rare right temporal discharges and right temporal slowing. The patient also had multiple events without electroencephalogram correlate; mostly epigastric rising and stomach pain sensations. 02/2013: Brain PET scan revealed hypometabolism in the right temporal lobe and right frontal parietal as well. 02/2013: Brain MRI with seizure protocol revealed a small right hippocampus and increased signal . Also noted right frontal parietal lesion. 02/2013: NPT revealed a full scale IQ well below average. The results are fairly widespread, moderate to severe deficits including deficits in word retrieval, spatial processing, verbal, and visual antegrade memory and executive functions. The results are not lateralizing or localizing. The conclusion of the epilepsy surgical conference was that the patient is a candidate for right temporal lobectomy. IMPRESSION: This is a 48-year-old right handed man with a history of depression, anxiety, intractable seizures status post right temporal lobectomy and amygdalohippocampectomy, who is here for evaluation and characterization of new spell types on his current AEDs. PLAN: 1. Continuous video electroencephalogram. Attempt to capture new spells without weaning AEDs in this epileptic who is still relatively early in the post-operative period following his epilepsy surgery. 2. Seizure precautions. 3. Continue AEDs for now. Wean if needed. 4. Deep venous thrombosis prophylaxis. 5. Ambulate t.i.d. 6. Regular diet. 7. Full code. Gerardo Baird Electronically Signed By Clifton Jose M.D. 12/03/2013 01:17 P Almaz Land/wilbert #[id number] Editing MT: TD: 11/25/2013 16:46:00 cc: Almaz Land F.N.P. documented in this encounter Plan of Treatment Not on file documented as of this encounter Visit Diagnoses Diagnosis Other forms of epilepsy with intractable epilepsy Other and unspecified hyperlipidemia Other depressive disorder Anxiety state Anxiety state, unspecified Essential hypertension Unspecified essential hypertension Asthma Unspecified asthma Esophageal reflux documented in this encounter
--- OUTSIDE RECORDS SUMMARY | 2024-05-24 02:10 | XMS_ITS | Encounter Summary ---
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 Gender Identity Not on file Sexual Orientation Not on file documented as of this encounter Plan of Treatment Not on file documented as of this encounter Procedures Procedure Name Priority Date/Time Associated Diagnosis Comments DIFFERENTIAL AUTO STAT 09/23/2016 2:5 0 PM CDT documented in this encounter Results * (ABNORMAL) Differential, auto (09/23/2016 2:50 PM CDT) Neutrophil pct 43.3 % [facility] Imm gran pct 1.9 % [facility] Lymphocyte pct 41.1 % [facility] Monocyte pct 9.3 % [facility] Eosinophil pct 0.3 % [facility] Basophil pct 0.7 % [facility] Neutrophil abs 3.01 1.70 - 6.50 K/cumm [facility] Imm gran abs 0.13(H) 0.00 - 0.10 K/cumm [facility] Lymphocyte abs 2.86 0.80 - 3.30 K/cumm [facility] Monocyte abs 0.65 0.20 - 0.80 K/cumm [facility] Eosinophil abs 0.26 0.00 - 0.50 K/cumm [facility] Basophil abs 0.05 0.00 - 0.10 K/cumm [facility] Blood specimen (specimen) 09/23/2016 2:50 PM CDT 09/23/2016 4:52 PM CDT us Nicanor Wilson MD LAB BLOOD ORDERABLES Final Result [facility] [id number] Department [place] [address] documented in this encounter Visit Diagnoses Not on filedocumented in this encounter Care Teams Felt Washing Machine Tender Relationship Specialty Start Date End Date Sergey Wilson MD PCP - General 09/20/16 documented as of this encounter
--- OUTSIDE RECORDS SUMMARY | 2024-05-24 02:10 | XMS_ITS | Encounter Summary ---
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 Gender Identity Not on file Sexual Orientation Not on file documented as of this encounter Plan of Treatment Not on file documented as of this encounter Procedures Procedure Name Priority Date/Time Associated Diagnosis Comments CBC WITH AUTO DIFFERENTIAL STAT 09/23/2016 2:50 PM CDT documented in this encounter Results * CBC with auto differential (09/23/2016 2:50 PM CDT) WBC 6.96 3.80 - 9.90 K/cumm [facility] RBC 5.01 4.30 - 5.80 M/cumm [facility] Hgb 15.8 13.0 - 17.5 g/dL [facility] Hct 46.9 38.9 - 50.3 % [facility] MCV 93.6 81.3 - 96.4 fL [facility] MCH 31.5 27.1 - 33.3 pg [facility] MCHC 33.7 32.3 - 35.7 g/dL [facility] RDW CV 12.6 11.1 - 14.9 % [facility] RDW SD 43.0 35.7 - 48.1 fL [facility] Plt 162 150 - 400 K/cumm [facility] MPV 9.6 9.1 - 12.3 fL [facility] NRBC 0.0 0.0 - 0.2 % [facility] NRBC abs 0.00 0.00 - 0.01 K/cumm [facility] Blood specimen (specimen) 09/23/2016 2:50 PM CDT 09/23/2016 4:52 PM CDT us Nicanor Wilson MD LAB BLOOD ORDERABLES Final Result [facility] [id number] Department [place] [address] documented in this encounter Visit Diagnoses Not on filedocumented in this encounter Care Teams Support Services Coordinator Relationship Specialty Start Date End Date Sergey Wilson MD PCP - General 09/20/16 documented as of this encounter
--- OUTSIDE RECORDS SUMMARY | 2024-05-24 02:10 | XMS_ITS | Encounter Summary ---
Author Organization [facility] Facility Care Team Providers Care Laundry Machine Tender Name Role Phone Unavailable Primary Care Provider Unavailabl e Encounter Details Date Type Department Care Team (Latest Contact Info) Description 05/10/2016 8:51 AM ANIMAL HUMANE AGENT SUPERVISOR - 05/12/2016 1:51 PM ANIMAL HUMANE AGENT SUPERVISOR Hospital Encounter [facility] Daren Robles MD PhD [address] [place] [address] Transient alteration of awareness; Essential (primary) hypertension; Obesity; Uncomplicated asthma; Major depressive disorder, single episode; Gastro-esophageal reflux disease with esophagitis; Mixed hyperlipidemia; Generalized anxiety disorder; 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; Presence of cardiac pacemaker; Patient's other noncompliance with medication regimen; vermin exterminator current use of aspirin; Body mass index (BMI) of 33.0-33.9 in adult Social History Tobacco Use Types Packs/Day Years Used Date Smoking Tobacco: Former Sex and Gender Information Value Date Recorded Sex Assigned at Not on file 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 ANIMAL HUMANE AGENT SUPERVISOR Gender Identity Not on file Sexual Orientation Not on file documented as of this encounter Last Filed Vital Signs Vital Sign Reading Time Taken Comments Blood Pressure 139/74 05/12/2016 6:58 AM ANIMAL HUMANE AGENT SUPERVISOR Pulse 84 05/12/2016 6:58 AM ANIMAL HUMANE AGENT SUPERVISOR Temperature - - Respiratory Rate - - Oxygen Saturation 98% 05/12/2016 6:58 AM ANIMAL HUMANE AGENT SUPERVISOR Inhaled Oxygen Concentration - - Weight 107.5 kg (236 lb 15.9 oz) 2015 11:32 AM ANIMAL HUMANE AGENT SUPERVISOR Height 180.3 cm (5' 11 ) 05/10/2016 11: 32 AM ANIMAL HUMANE AGENT SUPERVISOR Body Mass Index 33.05 05/10/2016 11:32 AM ANIMAL HUMANE AGENT SUPERVISOR documented in this encounter Medications at Time of Discharge cyanocobalamin/fo lic acid (vitamin X85-dmbot acid) 2,500-400 mcg tablet,disintegra ting 05/14/1969 naproxen [...] Diagnosis Comments VIDEO ELECTROENCEPHALOGRAPHI C EXAM REPORT 05/12/2016 documented in this encounter Results * VIDEO ELECTROENCEPHALOGRAPHIC EXAM REPORT (05/12/2016) Anatomical Region Laterality Modality Ultrasound Narrative 05/12/2016 Ordered by an unspecified provider. 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
--- OUTSIDE RECORDS SUMMARY | 2024-05-24 02:10 | XMS_ITS | Encounter Summary ---
Author Organization [facility] Address [address] [place] [address] Care Team Providers Care Piston Maker Name Role Phone Sergey Wilson MD Primary Care Provider Encounter Details Date Type Department Care Team (Late st Contact Info) Description 09/20/2016 Orders Only [facility] Palliative Care [address] [place] [address] [place] [address] [place] [address] Social History Tobacco Use Types Packs/Day Years Used Date Smoking Tobacco: Former Sex and Gender Information Value Date Recorded Sex Assigned at Not on file 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 MARKET RESEARCH COORDINATOR Gender Identity Not on file Sexual Orientation Not on file documented as of this encounter Plan of Treatment Not on file documented as of this encounter Procedures Procedure Name Priority Date/Time Associated Diagnosis Comments VALPROIC ACID LEVEL, TOTAL STAT 09/20/2016 12:55 PM CDT documented in this encounter Results * Valproic acid level, total (09/20/2016 12:55 PM CDT) Valproic Acid 83.9 50.0 - 100.0 mg/L [facility] Blood specimen (specimen) 09/20/2016 12:55 PM CDT 09/20/2016 1:03 PM CDT us Arvin Linder MD LAB BLOOD ORDERABLES Fi nal Result [facility] [id number] Department [place] [address] documented in this encounter Visit Diagnoses Not on filedocumented in this encounter Care Teams Piston Maker Relationship Specialty Start Date End Date Sergey Wilson MD PCP - General 09/20/16 documented as of this encounter
--- OUTSIDE RECORDS SUMMARY | 2024-05-24 02:10 | XMS_ITS | Encounter Summary ---
Author Organization [facility] Healthcare Address [address] [place] [address] Care Team Providers Care Supervisor International Reservations Name Role Phone Sergey Wilson MD Primary Care Provider Reason for Visit * Reason Comments Syncope Encounter Details Date Type Department Care Team (Late st Contact Info) Description 10/19/2017 11:27 PM CDT - 10/20/2017 3:20 AM CDT Emergency [facility] [address] [place] [address] Salma Brown MD [address] [facility] [address] [place], [place] [id number] Syncope, unspecified syncope type (Primary Dx); Spell of altered cognition Discharge Disposition: Discharge to home or self care Social History Tobacco Use Types Packs/Day Years Used Date Smoking Tobacco: Former Sex and Gender Information Value Date Recorded Sex Assigned at Not on file 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 Gender Identity Not on file Sexual Orientation Not on file documented as of this encounter Last Filed Vital Signs Vital Sign Reading Time Taken Comments Blood Pressure 136/72 10/20/2017 1:15 AM CDT Pulse 71 10/20/2017 1:15 AM CDT Temperature 36.9 ??C (98.4 ??F) 10/19/2017 8:00 PM CD T Respiratory Rate 18 10/20/2017 1:15 AM CDT Oxygen Saturation 97% 10/20/2017 1:15 AM CDT Inhaled Oxygen Concentration - - Weight 103.4 kg (228 lb) 10/19/2017 8:00 PM CDT Height 180.3 cm (5' 11 ) 10/19/2017 8:00 PM CDT Body Mass Index 31.8 10/19/2017 8:00 PM CDT documented in this encounter Discharge Instructions * Attachments The following attachments cannot be sent through Care Everywhere. * Syncope, Unk Cause (Malawian) documented in this encounter Medications at Time of Discharge cyanocobalamin/foli c acid (vitamin O17-ijmqo acid) 2,500-400 mcg tablet,disintegrati ng 0 naproxen sodium 220 mg capsule ALEVE CAPSULE 0 ONETOUCH ULTRA BLUE TEST STRIP strip USE TO TEST QD 0 8 eTukTukTOUCH ULTRA2 kit USE TO TEST QD 0 8 ADVAIR DISKUS 250-50 mcg/dose diskus inhaler INL 1 PUFF PO BID 6 07/24/19 1 8 03/22/20 19 albuterol (PROVENTIL,VENTOLIN ) 1.25 mg/3 mL nebulizer solution Take 1.25 mg by nebulization every 6 (six) hours as needed for wheezing or shortness of breath 07/20/19 22 aspirin 81 mg chewable tablet CERTIFIED NURSE OPERATING ROOM 1 T PO D 5 8 03/22/20 [...] T PO D 3 8 03/22/20 19 montelukast (SINGULAIR) 10 mg [...] 8 H PRN 0 8 03/22/20 19 PROAIR HFA 90 mcg/actuation inhaler INHALE 2 PUFFS PO Q 4 HOURS 3 8 03/22/20 19 topiramate (TOPAMAX) 200 mg tablet TK 2 TS PO BID 11 8 02/14/20 18 documented as of this encounter Discharge Disposition Disposition Code Departure Means Destination Discharge to home or self care documented in this encounter Progress Notes * Christa Norton, MANAGER ACTIVITIES - 10/20/2017 3:20 AM CDT 10/20/17 0327 Discharge Additional Assistance Financial assistance Cab voucher provided Does the patient need discharge transport arranged? No SW consulted to assist with discharge transportation. SW provided pt with a one time cab voucher [phone] Christa Norton LCSW documented in this encounter ED Notes * Salma Brown MD - 10/20/2017 12:12 AM CDT HPI Chief Complaint Patient presents with ??? Syncope 52-year-old male with a history of epilepsy status post temporal lobe resection in 2012, staring spells which are believed to be non epileptiform, recurrent syncope, asthma, hypertension Presenting today with loss of consciousness. The patient notes that he was eating dinner, he became dizzy and felt the room spinning, and then he had an episode of his sparing spell where he believes he was conscious at unable to respond to the events around him, this lasted for approximately 15 min and then hehad an episode of loss of consciousness. He fell he hitting his head. EMS was called and brought him in. He presently denies complaints aside from posterior head pain where he believes he hurt his head. He has had 2 similar episodes in the past week, he believes he has been having increasing frequency of similar episodes. He has previously had a Medtronic implantable rhythm monitor placed for at etiology of his syncopal episodes, he has not had cardiac arrhythmias in the past which have been responsible for these episodes. He has also had EEGs with no correlate. Patient History There are no active problems to display for this patient. Past Medical History: Diagnosis Date ??? Anxiety disorder Anxiety - (Added by TW Conv) ??? Asthma ??? Diabetes mellitus (CMS/HCC) ??? Hypertension ??? Personal history of other [...] Reflux Esophagitis - (Added by TW Conv) Past Surgical History: Procedure Laterality Date ??? [...] tobacco: Not on file ??? Alcohol use Not on file Social History Social History Narrative ??? No narrative on file Review of Systems Review of Systems Constitutional: Negative for chills and fever. HENT: Negative for ear pain and sore throat. Eyes: Negative for pain and visual disturbance. Respiratory: Negative for cough and shortness of breath. Cardiovascular: Negative for chest pain and palpitations. Gastrointestinal: Negative for abdominal pain and vomiting. Genitourinary: Negative for dysuria and hematuria. Musculoskeletal: Negative for arthralgias and back pain. Skin: Negative for color change and rash. Neurological: Positive for seizures, syncope and light-headedness. All other systems reviewed and are negative. Physical Exam ED Triage Vitals Temp Pulse Resp BP SpO2 10/19/17199910/19/17199910/19/17199910/19/17199910/19/171999 36.9 ??C (98.4 ??F) 75 18 137/81 96 % Temp src Heart Rate Source Patient Position BP Location FiO2 (%) 10/19/17199910/19/17 2319 10/19/17 23110/19/172318 -- Oral Pulse Oximetry Sitting Right arm Physical Exam Constitutional: He is oriented to person, place, and time. He appears well- developed and well-nourished. HENT: Head: Normocephalic and atraumatic. Eyes: Conjunctivae are normal. Neck: Neck supple. Cardiovascular: Normal rate and regular rhythm. No murmur heard. Pulmonary/Chest: Effort normal and breath sounds normal. No respiratory distress. Abdominal: Soft. There is no tenderness. Musculoskeletal: He exhibits no edema. Neurological: He is alert and oriented to person, place, and time. No cranial nerve deficit. Sensation 5/5 throughout. Skin: Skin is warm and dry. Psychiatric: He has a normal mood and affect. Nursing note and vitals reviewed. ED Course & MDM ED Course as of Oct 20 06 Sat Oct 20, 2017 0307 Gait steady without symptoms on ambulation. [SS] 0304 Work-up unremarkable. D/w neuro, likely non-epileptiform episode, no further w/u per them. Medtronic interrogated loop, in sinus. Will d/c. [SS] 0011 ECG 12 lead [KM] 0011 ECG 12 lead [KM] 0010 ECG 12 lead [KM] ED Course User Index [KM] Salma Brown MD [SS] Leonardo Marquez MD MDM Number of Diagnoses or Management Options Diagnosis management comments: 52-year-old male with a history of epilepsy, hypertension, asthma presenting today with a staring episode and syncope. He has had recurrent episodes in the past which relieved been non epileptiform and noncardiac in nature. He notes some increased frequency over the last several weeks and these episodes. He follows with Dr. Jose and Neurology here for his epilepsy. He had a similar episode today with loss of consciousness and head trauma. Here, he is presently asymptomatic aside from Posterior head pain. He has a benign examination, is an unchanged EKG, neurologic examination is unremarkable. Will plan for head CT, CBC, BMP, troponin, chest x-ray, will discuss case with Neurology. Disposition is pending workup. Suspect non epileptiform episode. Amount and/or Complexity of Data Reviewed Tests in the medicine section of CPT??: reviewed No diagnosis found. Attending Summary of Care HPI Patient is a 52 y/o M with hx epilepsy s/p temporal lobectomy on Topamax and Depakote followed by Dr. Jose in neuro, HTN, HLD, depression, anxiety ehre with syncope. Pt c/o 1-2 days of fatigue, intermittent nausea, dizziness followed by syncope. Pt with fall/head trauma/KELLY today prompting ED eval. Pt follows with neuro for these episodes, which are believed to be non-epileptiform events separate from his epileptiform seizures. No recent f/c, CP, SOB, focal numbness/weakness. PMH/Meds/Allergies/FH/SH Reviewed Review of Systems: Review of systems per HPI and otherwise all other systems are negative unless otherwise documented Constitutional: negative for chills, fatigue and fevers Eyes: negative for eye pain, irritation and visual disturbance Ears, nose, mouth, throat, and face: negative for hoarseness, nasal congestion and sore throat Respiratory: negative for cough, dyspnea on exertion and pleurisy/chest pain Cardiovascular: negative for chest pain, dyspnea and palpitations Gastrointestinal: negative for abdominal pain, + nausea and no vomiting Genitourinary: negative for dysuria, frequency and hematuria Hematologic/lymphatic: negative for bleeding, easy bruising and lymphadenopathy Musculoskeletal: negative for back pain, muscle weakness and neck pain Neurological: +for dizziness, headaches and neg for weakness Exam GEN: A&O x3, follows commands, NAD HEENT: EOMI, atramatuic, MMM. No trauma to occiput noted. C spine cleared by nexus criteria. CV: RRR, no m/r/g. Resp: CTAB, no r/r/w Abd: SNTND Ext: no edema, no calf tenderness Skin: warm, dry, no rash Neuro: A&O x3, MAEW, no sensory deficit A/P: High prob: syncope, non-epileptiform event. Mod prob: seizure, arrhythmia, NIDA, metabolic derangement, dehydration. Lower suspicion for AMI, PE, aortic dissection, PNA, sepsis. Will check labs, EKG (no change from prior), CXR, CT head. Dispo per ED course. Salma Brown MD 10/20/17 0635 * Roya Ames RN - 10/19/2017 11:27 PM CDT Bed: [facility] Expected date: Expected time: Means of arrival: Ambulance Comments: Roya Ames RN 10/19/17 1478 * Ayanna Figueroa RN - 10/19/2017 8:06 PM CDT Pt presents to ED with syncopal episode. Pt states he was at restaurant eating when he lost his hearing, had blurry vision. Pt also endorses intermittent tingling in R leg, midsternal CP, and headaches. Pt stating this has happened multiple times in past. Currently A&O x4, awake. documented in this encounter Miscellaneous Notes * ED Triage Provider Note - Marco Castillo MD - 10/19/2017 8:18 PM CDT Triage Provider Summary: Note recent admission for non-epileptic shaking and alteration of consciousness spells, w/u including video monitored EEG. Description of spells similar to this episode. On multiple meds for presumedassociated epilepsy. ECG unchanged. Labs ordered. * ED Procedure Note - Marco Castillo MD - 10/19/2017 8:16 PM CDTAssociated Order(s): ECG 12-LEAD Procedure ECG 12 lead Date/Time: 10/19/2017 8:09 PM Performed by: MARCO CASTILLO Authorized by: MARCO CASTILLO Rate: ECG rate: 75 ECG rate assessment: normal Rhythm: Rhythm: sinus rhythm Ectopy: Ectopy: none QRS: QRS axis: Left QRS intervals: Wide Conduction: Conduction: abnormal Abnormal conduction: LAFB ST segments: ST segments: Normal T waves: T waves: normal Q waves: Q waves: AVF Previous ECG: Previous ECG: Compared to current Date of previous EC09/23/2016 Similarity: No change Interpretation: Interpretation: non-specific Recommended Follow-up: Recommended follow up: further workup in the ED Comments: Low risk Marco Castillo MD 10/19/172017 documented in this encounter Plan of Treatment Not on file documented as of this encounter Procedures Procedure Name Priority Date/Time Associated Diagnosis Comments XR CHEST PA LATERAL 2 VIEWS ED 10/20/2017 12:[address] HEAD WO CONTRAST ED 10/20/2017 1 2:21 AM CDT DIFFERENTIAL AUTO STAT 10/20/2017 12: 09 AM CDT CBC WITH AUTO DIFFERENTIAL STAT 10/20/2017 12:09 AM CDT TROPONIN I STAT 10/20/2017 12:09 AM CDT VALPROIC ACID LEVEL, TOTAL STAT 10/20/2017 12:09 AM CDT BASIC METABOLIC PANEL STAT 10/20/2017 12:09 AM CDT ECG 12-LEAD STAT 10/19/2017 8:16 PM CDT POCT GLUCOSE DEVICE Routine Gen Lab 10/19/2017 8 :02 PM CDT documented in this encounter Results * XR Chest Pa Lateral 2 Views (10/20/2017 12:44 AM CDT) Anatomical Region Laterality Modality Body, Chest N/A Computed Radiogr aphy 10/20/2017 1:13 AM CDT Impressions 10/20/2017 10:45 AM CDT Comparison is made with 06/10/2013. ??Loop recorder is seen in the lower left chest. ??Lungs are clear. ??No focal consolidation, pleural effusion or pneumothorax. ??No pulmonary edema. Heart size and mediastinal contours are normal. Electronically signed by: Fei Mariee M.D., MPH Narrative 10/20/2017 10:45 AM CDT EXAMINATION: 2 view chest radiograph Procedure Note Fei Mariee MD - 10/20/2017 EXAMINATION: 2 view chest radiograph IMPRESSION: Comparison is made with 06/10/2013. Loop recorder is seen in the lower left chest. Lungs are clear. No focal consolidation, pleural effusion or pneumothorax. No pulmonary edema. Heart size and mediastinal contours are normal. Electronically signed by: Fei Mariee M.D., MPH us Salma Brown MD IMG XR PROCEDURES Final R esult * CT Head WO Contrast (10/20/2017 12:21 AM CDT) Anatomical Region Laterality Modality Head and Neck N/A Computed Tomogra phy 10/20/2017 12:3 4 AM CDT Impressions 10/20/2017 5:11 PM CDT Postsurgical changes of right temporal lobectomy without acute intracranial process.. Electronically signed by: Issac Diego M.D. Narrative 10/20/2017 5:11 PM CDT EXAMINATION: Noncontrast head CT HISTORY: Trauma. TECHNIQUE: Noncontrast CT of the brain was performed with images acquired from skull base to vertex. COMPARISON: None available. FINDINGS: There are postsurgical changes of right temporal lobectomy. ??There is no acute intracranial hemorrhage. ??The ventricles are normal in size and configuration. ??The driver-white matter differentiation is normal. The orbits are normal. ??The mastoids and paranasal sinuses are normal. ??There is no fracture. Procedure Note Issac Diego MD PhD - 10/20/2017 EXAMINATION: Noncontrast head CT HISTORY: Trauma. TECHNIQUE: Noncontrast CT of the brain was performed with images acquired from skull base to vertex. COMPARISON: None available. FINDINGS: There are postsurgical changes of right temporal lobectomy. There is no acute intracranial hemorrhage. The ventricles are normal in size and configuration. The driver-white matter differentiation is normal. The orbits are normal. The mastoids and paranasal sinuses are normal. There is no fracture. IMPRESSION: Postsurgical changes of right temporal lobectomy without acute intracranial process.. Electronically signed by: Issac Diego M.D. Leonardo Marquez MD IM CT PROCEDURES Final Result * (ABNORMAL) Differential, auto (10/20/2017 12:09 AM CDT) Neutrophil abs 2.9 1.7 - 6.5 K/cumm [facility] Imm gran abs 0.0 0.0 - 0.1 K/cumm [facility] Lymphocyte abs 3.6(H) 0.8 - 3.3 K/cumm [facility] Monocyte abs 0.6 0.2 - 0.8 K/cumm [facility] Eosinophil abs 0.2 0.0 - 0.5 K/cumm [facility] Basophil abs 0.0 0.0 - 0.1 K/cumm [facility] Neutrophil pct 39.1 % C[facility]ER [facility] Comment: Interpretive Data Percent cell count reference ranges are not reported, since discordance with absolute values may lead to misinterpretation of CBC data. Current Interpretive Data was last revised on 2017. Imm gran pct 0.5 % JOHANNY [facility] Comment: Interpretive Data Percent cell count reference ranges are not reported, since discordance with absolute values may lead to misinterpretation of CBC data. Current Interpretive Data was last revised on 2017. Lymphocyte pct 48.6 % JOHANNY [facility] Comment: Interpretive Data Percent cell count reference ranges are not reported, since discordance with absolute values may lead to misinterpretation of CBC data. Current Interpretive Data was last revised on 2017. Monocyte pct 8.0 % JOH[facility]NY [facility] Comment: Interpretive Data Percent cell count reference ranges are not reported, since discordance with absolute values may lead to misinterpretation of CBC data. Current Interpretive Data was last revised on 2017. Eosinophil pct 3.4 % J[facility]NY [facility] Comment: Interpretive Data Percent cell count reference ranges are not reported, since discordance with absolute values may lead to misinterpretation of CBC data. Current Interpretive Data was last revised on 2017. Basophil pct 0.4 % [facility] Comment: Interpretive Data Percent cell count reference ranges are not reported, since discordance with absolute values may lead to misinterpretation of CBC data. Current Interpretive Data was last revised on 2017. Blood specimen (specimen) 10/20/2017 12:09 AM CDT 10/20/2017 12:20 AM CDT Narrative JOHANNY MARTINEZ - 10/20/2017 12:28 AM CDT us Marco Castillo MD LAB BLOOD ORDERABLES Final Res [facility] Department [place] [address] * Troponin I (10/20/2017 12:09 AM CDT) Troponin I <0.03 0.00 - 0.03 ng/mL [facility]NY [facility] Comment: Interpretive Data Serial determinations are recommended for the diagnosis of myocardial infarction (Third [place] Definition of Myocardial Infarction. ??J Am Tatiana Cardiol 2012;60:1581-98). Current interpretive data was last revised on 13. Blood specimen (specimen) 10/20/2017 12:09 AM CDT 10/20/2017 12:20 AM CDT Narrative [facility] - 10/20/2017 12:54 AM CDT Leonardo Marquez MD LAB BLOOD ORDERABLES Fi nal Result Performing Organization Address [facility] de Phone Number [facility] [place] [address] * (ABNORMAL) Valproic acid level, total (10/20/2017 12:09 AM CDT) Valproic Acid 24.0(L) 50.0 - 100.0 mcg/mL [facility] Comment: Interpretive Data Therapeutic or toxic effects of anticonvulsant drugs may occur at different concentrations in different patients and the correlation between dose and clinical effect must be evaluated individually. Current interpretative data was last revised on 13. Blood specimen (specimen) 10/20/2017 12:09 AM CDT 10/20/2017 12:20 AM CDT Narrative [facility] - 10/20/2017 1:09 AM CDT Marco Castillo MD LAB BLOOD ORDERABLES Final Res ult Performing Organization Address [facility] de Phone Number [facility] [place] [address] * (ABNORMAL) Basic metabolic panel (10/20/2017 12:09 AM CDT) Sodium 138 135 - 145 mmol/L [facility] Potassium, pl See Comment 3.3 - 4.9 mmol/L [facility] Comment:CRDT; Grossly Hemoly zed sample; Unable to test. Chloride 106 97 - 110 mmol/L [facility] CO2 22 22 - 32 mmol/L [facility] BUN 11 8 - 25 mg/dL [facility] Glucose 234(H) 70 - 199 mg/dL [facility] Comment: Interpretive Data Fasting glucose >/= 126 [...] Current interpretive data was last revised 2017. Creatinine 0.62(L) 0.80 - 1.30 mg/dL [facility] Calcium 8.6 8.5 - 10.3 mg/dL [facility] Anion gap 10 2 - 15 mmol/L [facility] Blood specimen (specimen) 10/20/2017 12:09 AM CDT 10/20/2017 12:20 AM CDT Narrative [facility] - 10/20/2017 1:09 AM CDT us Marco Castillo MD LAB BLOOD ORDERABLES Final Res ult [facility] Department [place] [address] * (ABNORMAL) CBC with auto differential (10/20/2017 12:09 AM CDT) WBC 7.3 3.8 - 9.9 K/cumm [facility] RBC 4.31 4.30 - 5.80 M/cumm [facility] Hgb 14.0 13.0 - 17.5 g/dL [facility] Hct 39.8 38.9 - 50.3 % [facility] MCV 92.3 81.3 - 96.4 fL [facility] MCH 32.5 27.1 - 33.3 pg [facility] MCHC 35.2 32.3 - 35.7 g/dL [facility] RDW CV 12.6 11.1 - 14.9 % [facility] RDW SD 42.6 35.7 - 48.1 fL [facility] Plt 173 150 - 400 K/cumm [facility] MPV 10.5 9.1 - 12.3 fL [facility] NRBC abs 0.02(H) 0.00 - 0.01 K/cumm [facility] Blood specimen (specimen) 10/20/2017 12:09 AM CDT 10/20/2017 12:20 AM CDT Narrative JOHANNY [facility] - 10/20/2017 12:28 AM CDT us Marco Castillo MD LAB BLOOD ORDERABLES Final Res ult [facility] [place] [address] * ECG 12-LEAD (10/19/2017 8:16 PM CDT) Narrative [facility] - 10/19/2017 8:16 PM CDT Marco Castillo MD ? 10/19/2017 ??8:18 PM ECG 12 lead Date/Time: 10/19/2017 8:09 PM Performed by: MARCO CASTILLO Authorized by: MARCO CASTILLO Rate: ??ECG rate: ??75 ??ECG rate assessment: normal ?? Rhythm: ??Rhythm: sinus rhythm ?? Ectopy: ??Ectopy: none ?? QRS: ??QRS axis: ??Left ??QRS intervals: ??Wide Conduction: ??Conduction: abnormal ?Abnormal conduction: LAFB ?? ST segments: ??ST segments: ??Normal T waves: ??T waves: normal ?? Q waves: ??Q waves: ??AVF Previous ECG: ??Previous ECG: ??Compared to current ??Date of previous ECG: ??09/23/2016 ??Similarity: ??No change Interpretation: ??Interpretation: non-specific ?? Recommended Follow-up: ??Recommended follow up: further workup in the ED ?? Comments: ?? Low risk Procedure Note Marco Castillo MD - 10/19/2017 8:16 PM CDT Procedure ECG 12 lead Date/Time: 10/19/2017 8:09 PM Performed by: MARCO CASTILLO Authorized by: MARCO CASTILLO Rate: ECG rate: 75 ECG rate assessment: normal Rhythm: Rhythm: sinus rhythm Ectopy: Ectopy: none QRS: QRS axis: Left QRS intervals: Wide Conduction: Conduction: abnormal Abnormal conduction: LAFB ST segments: ST segments: Normal T waves: T waves: normal Q waves: Q waves: AVF Previous ECG: Previous ECG: Compared to current Date of previous EC09/23/2016 Similarity: No change Interpretation: Interpretation: non-specific Recommended Follow-up: Recommended follow up: further workup in the ED Comments: Low risk Marco Castillo MD 10/19/172017 Salma Brown MD ECG ORDERABLES Final Res ult [facility] * (ABNORMAL) POCT glucose (10/19/2017 8:02 PM CDT) [facility] Glucose, POC 212(H) 70 - 199 mg/dL [facility] Blood specimen (specimen) 10/19/2017 8:02 PM CDT 10/19/2017 8:02 PM CDT Narrative JOHANNY [facility] - 10/19/2017 8:04 PM CDT Notinfile Unknown LAB POCT ORDERABLES - DEVICE F inal Result [facility] Department [place] [address] documented in this encounter Visit Diagnoses Diagnosis Syncope, unspecified syncope type- Primary Spell of altered cognition documented in this encounter Administered Medications Inactive Administered Medications - up to 3 most recent administrations Medication Order MAR Action Action Date Dose Rate Site topiramate (TOPAMAX) tablet 400 mg 400 mg, oral, Once, On 10/20/17 at 0013, For 1 dose Given 10/20/2017 1:42 AM CDT 400 mg documented in this encounter Historical Medications * This list may reflect changes made after this encounter. Zomazz ULTRA2 kit USE TO TEST QD 0 8 Zomazz ULTRA BLUE TEST STRIP strip USE TO TEST QD 0 8 cholecalciferol (VITAMIN D-3) 50,000 unit capsule 06/08/19 1 8 03/22/20 19 topiramate (TOPAMAX) 200 mg tablet TK 2 TS PO BID 11 8 02/14/20 18 ondansetron ODT (ZOFRAN-ODT) 4 mg disintegrating tablet DISSOLVE 1 T ON THE TONGUE Q 8 H PRN 0 8 03/22/20 19 omeprazole (PriLOSEC) 20 mg capsule TK 1 C PO QD AC 0 8 03/22/20 19 nortriptyline (PAMELOR) 75 mg capsule TK ONE C PO BID 3 8 03/22/20 19 montelukast (SINGULAIR) 10 mg tablet TK 1 T PO QD 0 8 03/22/20 19 escitalopram (LEXAPRO) 20 mg tablet daily. 03/22/20 19 levothyroxine (SYNTHROID, LEVOTHROID) 50 mcg tablet TK 1 T PO D 3 8 03/22/20 19 ADVAIR DISKUS 250-50 mcg/dose diskus inhaler INL 1 PUFF PO BID 6 07/24/19 1 8 03/22/20 19 fluticasone (FLONASE) 50 mcg/actuation nasal spray SHAKE LQ AND U 2 SPRAYS IEN QAM 0 8 03/22/20 19 fenofibrate (TRIGLIDE) 160 mg tablet TK 1 T PO D 2 8 03/22/20 19 ergocalciferol (VITAMIN D) 50,000 unit capsule TK 1 C PO Q WEEK 0 8 03/22/20 19 enalapril (VASOTEC) 5 mg tablet TK 1 T PO QD 10 8 11/09/20 19 divalproex ER (DEPAKOTE ER) 500 mg 24 hr tablet TAKE 2 TABS QAM, 1 TAB AT NOON, AND 2 TABS QPM 3 02/14/20 18 dicyclomine (BENTYL) 10 mg capsule TK 1 C PO TID 0 8 03/22/20 19 cyclobenzaprine (FLEXERIL) 10 mg tablet TK 1 T PO BID 5 8 03/22/20 19 citalopram (CeleXA) 40 mg tablet TK 1 T PO QAM 3 8 03/22/20 19 aspirin 81 mg chewable tablet CERTIFIED NURSE OPERATING ROOM 1 T PO D 5 8 03/22/20 19 albuterol (PROVENTIL,VENTOLIN ) 1.25 mg/3 mL nebulizer solution Take 1.25 mg by nebulization every 6 (six) hours as needed for wheezing or shortness of breath 07/20/19 22 PROAIR HFA 90 mcg/actuation inhaler INHALE 2 PUFFS PO Q 4 HOURS 3 8 03/22/20 19 fluticasone-salmete rol (ADVAIR DISKUS) 500-50 mcg/dose diskus inhaler 2 times daily. 19 added in this encounter Active and Recently Administered Medications Times are shown in CDT. Scheduled Medication Order 10/18/2017 10/19/2017 10/20/2017 topiramate (TOPAMAX) tablet 400 mg (COMPLETED) 400 mg, oral, Once, On 10/20/17 at 0013, For 1 dose 0142 (Given - Provid er: Ursula Vargas RN) documented in this encounter Orders Lab Orders Without Results Count Last Ordered D ate First Ordered Date POCT GLUCOSE DEVICE 1 10/19/2017 IV Count Last Ordered Date First Orde red Date INSERT PERIPHERAL IV 1 10/19/2017 SALINE LOCK IV 1 10/19/2017 documented in this encounter Care Teams Supervisor [employer] Relationship Specialty Start Date End Date Sergey Wilson MD PCP - General 09/20/16 documented as of this encounter
--- OUTSIDE RECORDS SUMMARY | 2024-05-24 02:11 | XMS_ITS | Encounter Summary ---
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 Name Role Phone Unavailable Primary Care Provider Unavailabl e Encounter Details Date Type Department Care Team (Late st Contact Info) Description 12/23/2008 3:32 PM CDT - 12/25/2008 6:40 PM CDT Hospital Encounter [facility] Patricia Arias Convulsions (HCC); Asthma; Essential hypertension; Sprain of back; Accident; Unspecified place of occurrence Social History Tobacco Use Types Packs/Day Years Used Date Smoking Tobacco: Never Assessed Sex and Gender Information Value Date Recorded Sex Assigned at Not on file 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 Gender Identity Not on file Sexual Orientation Not on file documented as of this encounter Medications at Time of Discharge cyanocobalamin/fo lic acid (vitamin [id number]) 2,500-400 mcg tablet,disintegra ting 05/14/1969 naproxen sodium 220 mg capsule ALEVE CAPSULE 05/14/1970 documented as of this encounter Plan of Treatment Not on file documented as of this encounter Visit Diagnoses Diagnosis Convulsions (HCC) Other convulsions Asthma Unspecified asthma Essential hypertension Unspecified essential hypertension Sprain of back Sprain and strain of unspecified site of back Accident Unspecified accident Unspecified place of occurrence documented in this encounter
--- OUTSIDE RECORDS SUMMARY | 2024-05-24 02:11 | XMS_ITS | Encounter Summary ---
Author Organization [facility] Facility Care Team Providers Care Campus Monitor Name Role Phone Unavailable Primary Care Provider Unavailabl e Encounter Details Date Type Department Care Team (Latest Contact Info) Description 05/01/2013 4:50 PM [facility]IST - 05/01/2013 11:59 PM [facility] Hospital [facility] [address] [place] [address] Partial epilepsy with impairment of consciousness, with intractable epilepsy (HCC); Temporal sclerosis; Late effect of intracranial injury (HCC); Other depressive disorder; Essential hypertension; Asthma; Pure hypercholesterolemia; Headache; Esophageal reflux; Obesity; Body mass index 33.0-33.9, adult; Late effects of unspecified accident Social History Tobacco Use Types Packs/Day Years Used Date Smoking Tobacco: Former Sex and Gender Information Value Date Recorded Sex Assigned at Not on file 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 Gender Identity Not on file Sexual Orientation Not on file documented as of this encounter Last Filed Vital Signs Vital Sign Reading Time Taken Comments Blood Pressure - - Pulse - - Temperature - - Respiratory Rate - - Oxygen Saturation - - Inhaled Oxygen Concentration - - Weight - - Height 180.3 cm (5' 11 ) 02/04/2013 11:29 AM CDT Body Mass Index - - documented in this encounter Medications at Time of Discharge cyanocobalamin/fo lic acid (vitamin G25-iltbr acid) 2,500-400 mcg tablet,disintegra ting 05/14/1969 naproxen sodium 220 mg capsule ALEVE CAPSULE 05/14/1969 divalproex ER (DEPAKOTE ER) 500 mg 24 hr tablet TAKE 2 TABS QAM, 1 TAB AT NOON, AND 2 TABS QPM 02/11/2013 02/13/2018 documented as of this encounter Miscellaneous Notes * Op Note - Provider, MD Kareem - 05/01/2013 11:59 PM CST Patient: Reji Branch Reg No: [id number] [facility] #: [id number] Admit Dt.: 05/02/2013 : 1965 Pt Type: 100 Room No: OTHER Attending: Issac Schneider M.D. Surgeon: Issac Schneider M.D. Dictating: Issac Schneider M.D. Service Dt: 05/02/2013 OPERATIVE REPORT [employer] SURVEY WORKER: Barrie Sood M.D. ANESTHESIA: General. PREOPERATIVE DIAGNOSIS (ES): Medically intractable complex partial seizures. POSTOPERATIVE DIAGNOSIS (ES): Medically intractable complex partial seizures. NAME OF OPERATION: 1. Frameless stereotactic image guided right temporal craniotomy for right temporal lobectomy and amygdalohippocampectomy. 2. Use of the operative microscope for microdissection. INDICATIONS FOR PROCEDURE: The patient is a 48-year-old gentleman with a history of medically intractable complex partial seizures. He has undergone presurgical workup including video EEG demonstrating right temporal onset for seizures and right temporal interictal discharges. His PET imaging demonstrates right temporal hypometabolism. 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 His neuropsychological testing demonstrated widespread deficits which were non lateralizing. He was reviewed in the Adult Epilepsy Conference and felt to be an excellent candidate for right temporal lobectomy and amygdalohippocampectomy. After discussion of the goals, alternatives and risks, he wished to proceed. DESCRIPTION OF PROCEDURE: The patient underwent an MRI of the brain with frameless stereotactic fiducials affixed to his scalp. He was taken to the operating room, anesthetized and endotracheally intubated. He was placed supine with a gel roll beneath his right scapula. His head was placed in the Cutler pin headholder and turned to the left to expose the right temporal region. The fiducials were co-registered with the [employer] Workstation. A craniotomy flap was planned with the [employer] Workstation. The temporal region was then shaved, prepped and sterilely draped. A curvilinear incision was marked out extending superiorly from the zygoma and infiltrated with local. The incision was made with a scalpel. Enzo clips were applied to the scalp edges for hemostasis. The temporalis fascia and muscle were incised with the Bovie. The muscle was reflected with the Bovie and periosteal elevator. A self-retaining retractor was placed. A bur hole was created above the zygoma with the high speed drill and acorn bur. The dura was stripped with a Allen instrument. A circular craniotomy flap was then cut with a high speed drill and lifted from the field. Holes were placed along the periphery of the craniotomy and dural tack-up sutures sewn. The dura was opened sharply and reflected inferiorly. It was tacked up with 4-0 Nurolon suture. The Stealth was used to confirm the middle temporal gyrus. A section of middle temporal gyrus to be included in the resection was isolated. The sidny was sharply opened along the superior and inferior temporal sulci. This allowed the section of gyrus to be sub pially reflected away from the sulci with a Rhoton instrument. The section of the gyrus was then amputated posteriorly and anteriorly and then removed and handed off as a research specimen. The cortical incision was then continued inferiorly to the temporal floor with the irrigating bipolar and suction. Encountered vessels and sulci were sharply divided after cauterization. The incision was then continued anteriorly along the middle temporal gyrus until the temporal tip was reached. The incision was then deepened in an anterior inferior direction until the sindy along the floor of the middle fossa was encountered. This was then cauterized and sharply divided. This allowed the lateral temporal tip specimen to be lifted from the field. It was sent for permanent section. Using the CUSA, the anterior aspect of the middle temporal gyrus was completely resected back to the original incision. Working in a sub-pial fashion, the remaining of the anterior tip and lateral aspect of the temporal lobe were further resected back to the original incision. At this point, the Stealth was used to guide an opening into the ventricle. A cottonoid was inserted into the ventricle. The operative microscope was brought into the field and the remainder of the dissection performed under high power magnification. Under magnification, the sub pial resection using the CUSA of the uncus was carried out back to the level of the choroidal fissure. The Navarro retractor was set up and used to elevate the choroid plexus. In a sub pial fashion working laterally at each section of hippocampus, the pineda hippocampal gyrus was isolated. This approximately 2 cm section was then amputated posteriorly and rolled bluntly off the hippocampal sulcus. It was sent to pathology for permanent section. A small amount of bleeding along the hippocampal sulcus was cauterized with the bipolar. The tail end of hippocampus and pineda hippocampal gyrus were then aspirated sub pially with the CUSA. The posterior extent of resection was checked and was at the level of the colliculi as desired. The cavity was irrigated profusely with Ringer's. Gelfoam soaked in thrombin was layered out over the medial sindy. The resection edges were lined with Surgicel. A cottonoid was placed over the Gelfoam and Surgicel and the cavity irrigated with Ringer's. The cottonoid was removed. A Valsalva maneuver was performed which demonstrated excellent hemostasis. The dura was closed with interrupted running 4-0 Nurolon suture. DuraSeal was sprayed over the suture line. Dry Gelfoam was placed over the dura. The bone flap was re-secured with titanium metal plates and screws. The wound was irrigated with Ringers and antibiotic solution. It was closed with 2-0 Vicryl in the muscle, 2-0 Vicryl in the temporalis fascia, 3-0 Vicryl in the galea followed by randa in the skin. Following closure of the wound, antibiotic ointment and a sterile dressing were applied. Following the procedure, the patient was awakened and extubated in the operating room and sent to the recovery room in stable condition. ESTIMATED BLOOD LOSS: Recorded in the anesthetic record. INTRAOPERATIVE FLUIDS: Recorded in the anesthetic record. URINE OUTPUT: Recorded in the anesthetic record. SPONGE/INSTRUMENT/NEEDLE COUNTS: Correct x2. CONDITION ON DISCHARGE FROM OPERATING ROOM: Stable. Electronically Signed By Issac Schneider M.D. 05/14/2013 12:06 P Almaz Navarro/marge #[id number] Editing MT: [email or web address] TD: 05/04/2013 09:30:00 cc: Almaz Navarro M.D. documented in this encounter Plan of Treatment Not on file documented as of this encounter Procedures Procedure Name Priority Date/Time Associated Diagnosis Comments BLOOD GLUCOSE, POC Routine 05/06/2013 11 :49 AM [facility] SPECIALIST BLOOD GLUCOSE, POC Routine 05/06/2013 10 :41 AM [facility] SPECIALIST BLOOD GLUCOSE, POC Routine 05/06/2013 7: 32 AM [facility]ERIES SPECIALIST DISCHARGE LABORATORY CUMULATIVE REPORT Routine 05/06/2013 12:00 AM [facility] SPECIALIST BLOOD GLUCOSE, POC Routine 05/05/2013 9: 04 PM [facility] SPECIALIST BLOOD GLUCOSE, POC Routine 05/05/2013 4: 30 PM [facility] SPECIALIST BLOOD GLUCOSE, POC Routine 05/05/2013 11 :31 AM [facility]ERIES SPECIALIST BLOOD GLUCOSE, POC Routine 05/05/2013 7: 21 AM [facility]ERIES SPECIALIST BLOOD GLUCOSE, POC Routine 05/05/2013 5 :53 AM [facility]ERIES SPECIALIST BLOOD GLUCOSE, POC Routine 05/05/2013 12 :15 AM [facility]ERIES SPECIALIST BLOOD GLUCOSE, POC Routine 05/04/2013 9: 15 PM [facility] SPECIALIST BLOOD GLUCOSE, POC Routine 05/04/2013 11 :39 AM [facility]ERIES SPECIALIST BLOOD GLUCOSE, POC Routine 05/04/2013 7: 40 AM [facility]ERIES SPECIALIST BLOOD GLUCOSE, POC Routine 05/04/2013 6: 52 AM [facility]ERIES SPECIALIST BLOOD CELL COUNT (CBC) Routine 3 12:31 AM [facility]ERIES SPECIALIST BLOOD GLUCOSE, POC Routine 05/03/2013 9: 16 PM [facility] SPECIALIST PLASMA COMPREHENSIVE METABOLIC PANEL Routine 05/03/2013 8:37 PM [facility] SPECIALIST PLASMA AMMONIA Routine 05/03/2013 8:37 PM [facility]ERIES SPECIALIST BLOOD GAS, ARTERIAL Routine 05/03/2013 8 :37 PM [facility]ERIES SPECIALIST BLOOD ABO, RH, INDIRECT AB SCREEN Routine 05/03/2013 8:37 PM [facility] SPECIALIST BLOOD CELL COUNT (CBC) Routine 3 8:35 PM [facility] SPECIALIST BLOOD GLUCOSE, POC Routine 05/03/2013 4: 57 PM [facility]ERIES SPECIALIST URINE (AEROBIC) CULTURE, CDR Routine 05/03/2013 3:15 PM [facility] SPECIALIST BLOOD CULTURE, CDR Routine 05/03/2013 2: 52 PM [facility]IES SPECIALIST BLOOD CULTURE, CDR Routine 05/03/2013 2: 52 PM [facility] SPECIALIST URINE MICROSCOPY Routine 05/03/2013 2:52 PM [facility] SPECIALIST URINALYSIS Routine 05/03/2013 2:52 PM [facility] SPECIALIST BLOOD GLUCOSE, POC Routine 05/03/2013 12 :07 PM [facility]IES SPECIALIST BLOOD GLUCOSE, POC Routine 05/03/2013 8: 03 AM [facility]ERIES SPECIALIST SERUM MAGNESIUM Routine 05/03/2013 3:39 AM [facility]ERIES SPECIALIST PLASMA PHOSPHORUS Routine 05/03/2013 3:3 9 AM [facility]IES SPECIALIST PLASMA BASIC METABOLIC PANEL Routine 05/03/2013 3:39 AM [facility]ERIES SPECIALIST BLOOD GLUCOSE, POC Routine 05/03/2013 2: 25 AM [facility]ERIES SPECIALIST BLOOD CELL COUNT (CBC) Routine 3 12:48 AM [facility]ERIES SPECIALIST ALL MICROBIOLOGY REPORT SECTION Routine 05/03/2013 12:00 AM [facility]ERIES SPECIALIST ALL MICROBIOLOGY REPORT SECTION Routine 05/03/2013 12:00 AM FISHERIES SPECIALIST ALL MICROBIOLOGY REPORT SECTION Routine 05/03/2013 12:00 AM [facility] SPECIALIST BLOOD GLUCOSE, POC Routine 05/02/2013 8: 13 PM [facility]ERIES SPECIALIST BLOOD GLUCOSE, POC Routine 05/02/2013 6: 22 PM [facility]ERIES SPECIALIST SERUM MAGNESIUM Routine 05/02/2013 3:30 PM [facility]ERIES SPECIALIST PLASMA PROTHROMBIN TIME (PT) Routine 05/02/2013 3:30 PM [facility]ERIES SPECIALIST PLASMA PHOSPHORUS Routine 05/02/2013 3:3 0 PM [facility]ERIES SPECIALIST PLASMA PARTIAL THROMBOPLASTIN TIME (PTT) Routine 05/02/2013 3:30 PM [facility]ERIES SPECIALIST PLASMA COMPREHENSIVE METABOLIC PANEL Routine 05/02/2013 3:30 PM [facility]ERIES SPECIALIST BLOOD CELL COUNT (CBC) Routine 3 3:30 PM [facility]ERIES SPECIALIST URINALYSIS Routine 05/02/2013 9:28 AM [facility]ERIES SPECIALIST BLOOD ABO, RH, INDIRECT AB SCREEN Routine 05/02/2013 8:31 AM [facility]ERIES SPECIALIST ELECTROCARDIOGRAPHY (ECG) 05/02/2013 SURGICAL PATHOLOGY 05/02/2013 BLOOD ABO, RH, INDIRECT AB SCREEN Routine 05/01/2013 6:17 PM [facility]ERIES SPECIALIST documented in this encounter Results * Blood glucose, POC (05/06/2013 11:49 AM [facility]ERIES SPECIALIST) Glucose, POC, bld 112 70 - 199 mg/dl HISTORICAL RESULTS Blood specimen (specimen) 05/06/2013 11:49 AM [facility]ERIES SPECIALIST Issac Schneider MD LAB BLOOD ORDERABLES Final Result Performing Organization Address [facility] de Phone Number HISTORICAL RESULTS * Blood glucose, POC (05/06/2013 10:41 AM [facility]ERIES SPECIALIST) Glucose, POC, bld 101 70 - 199 mg/dl HISTORICAL RESULTS Blood specimen (specimen) 05/06/2013 10:41 AM [facility]IES SPECIALIST Issac Schneider MD LAB BLOOD ORDERABLES Final Result Performing Organization Address [facility] de Phone Number HISTORICAL RESULTS * (ABNORMAL) Blood glucose, POC (05/06/2013 7:32 AM FISHERIES SPECIALIST) Glucose, POC, bld 68(L) 70 - 199 mg/dl HISTORICAL RESULTS Blood specimen (specimen) 05/06/2013 7:32 AM FISHERIES SPECIALIST us Issac Schneider MD LAB BLOOD ORDERABLES Final Result Performing Organization Address [facility] Phone Number HISTORICAL RESULTS * Discharge Laboratory Cumulative Report (05/06/2013 12:00 AM FISHERIES SPECIALIST) 05/06/2013 Narrative HISTORICAL RESULTS - 05/09/2013 7:16 AM FISHERIES SPECIALIST ?[facility] ?Department of Laboratories ? [address] [facility] [address] ? [place] [address] Patient Name: ??REJI BRANCH Rec Number: [id number] Fin Number: [id number] Date: ?1965 Sex/Age: ? Male 48 years Admit Date: ?05/02/2013 Discharge Date: 05/06/2013 Doctor: ?Issac Schneider Facility: ?[facility] Location: ?OTHER Chart Printed: 05/09/2013 07:16 ?? * Abnormal ?? C Critical ?? f Footnote ?? ^ Corrected ?? L Low ?? H High ? i Interp Data ?? @ Reference Lab ?Chart Type:Cumulative ?BLOOD GASES ? Arterial Blood Gases ?Test: pH ? pCO2 ? pO2 ? Total CO2 ? Reference: [7.35-7.45] ??[35-45] ??[80-105] ??[21-30] ? Units: ?mmHg ? mmHg ?mmol/L 05/03/2013 ?? 20:37:00 ?? 7.41 ? 25 ??L ?79 ??L ? 16 ??L ?Test: A-a Gradient ?% iO2 Art ? Vol iO2 Art ? Reference: ? Units: mmHg ?% ? L 05/03/2013 ?? 20:37:00 ?? Not Applicable ??Not Applicable ??Not Applicable ? SELECTED ELECTROLYTES ?Test: Sodium ? Plasma Potassium ??Chloride ? Reference: [135-145] ??[3.3-4.9] ? [97-110] ? Units: mmol/L ? mmol/L ?mmol/L 05/03/2013 ?? 20:37:00 ?? 136 ?3.9 ? 110 05/03/2013 ?? 03:39:00 ?? 143 ?3.6 ? 112 ??H 05/02/2013 ?? 15:30:00 ?? 142 ?4.2 ? 112 ??H ?Test: Total CO2 ??Anion Gap ? Reference: [22-32] ?[0-16] ? Units: mmol/L ? mmol/L 05/03/2013 ?? 20:37:00 ?? 17 ??L ?9 05/03/2013 ?? 03:39:00 ?? 21 ??L ?10 05/02/2013 ?? 15:30:00 ?? 19 ??L ?11 ? STANDARD BLOOD CHEMISTRY ?Test: BUN ? Creatinine ?? Total Bilirubin ??Glucose ? Reference: [8-25] ??[0.70-1.30] ??[0.3-1.1] ?[70- 199] ? Units: mg/dL ?? mg/dL ?mg/dL ?mg/dL 05/03/2013 ?? 20:37:00 ?? 7 ??L ?0.59 ??L ?0.3 ?127 05/03/2013 ?? 03:39:00 ?? 8 ? 0.62 ??L ? 107 05/02/2013 ?? 15:30:00 ?? 10 ?0.68 ??L ?0.2 ??L ? 141 ?Test: Magnesium ??Total Calcium ??Plasma Phosphorus ? Reference: [1.4-2.5] ??[8.6-10.3] ? [2.3-4.3] ? Units: mg/dL ?mg/dL ?mg/dL 05/03/2013 ?? 20:37:00 ?8.6 05/03/2013 ?? 03:39:00 ?? 1.9 ?8.1 ??L ? 2.5 05/02/2013 ?? 15:30:00 ?? 1.9 ?8.2 ??L ? 3.5 ?Test: Plasma Total Protein ??Albumin ? Reference: [6.5-8.5] ? [3.6-5.0] ? Units: g/dL ?g/dL 05/03/2013 ?? 20:37:00 ?? 6.7 ? 3.6 05/02/2013 ?? 15:30:00 ?? 6.9 ? 4.2 ?ENZYMES ?Test: Alkaline Phosphatase ??ALT ?AST ? Reference: [38-126] ?[7-53] ?? [11-47] ? Units: Units/L ? Units/L ??Units/L 05/03/2013 ?? 20:37:00 ?? 71 ?55 ??H ?106 ??H 05/02/2013 ?? 15:30:00 ?? 79 ?61 ??H ?68 ??H ?METABOLITES ?Test: Ammonia ? Reference: [9-33] ? Units: mcmol/L 05/03/2013 ?? 20:37:00 ?? 63 ??H ?URINALYSIS ?Macroscopic ?Test: Color ? Clarity ??Specific Argyle ? Reference: [Yellow] ?[Clear] ??[1.003-1.030] ? Units: 05/03/2013 ?? 14:52:00 ?? Light-Yellow ??Clear ?1.015 05/02/2013 ?? 09:28:00 ?? Yellow ?Clear ?1.020 ?URINALYSIS ?Macroscopic ?Test: pH ? Albumin ?? Glucose ? Ketones ? Reference: [5.0-8.0] ??[Trace] ?? [Negative] ??[Negative] ? Units: 05/03/2013 ?? 14:52:00 ?? 8.0 ?Trace ? Negative ?Negative 05/02/2013 ?? 09:28:00 ?? 7.0 ?Negative ??Negative ?Negative ?Test: Bilirubin ?? Blood ? Urobilinogen ? Reference: [Negative] ??[Negative] ??[0.0-2.0] ? Units: ? mg/dL 05/03/2013 ?? 14:52:00 ?? Negative ?Negative ?<2.0 05/02/2013 ?? 09:28:00 ?? Negative ?Negative ?2.0 ?Test: Nitrite ? Leuk Esterase ? Reference: [Negative] ??[Negative] ? Units: 05/03/2013 ?? 14:52:00 ?? Negative ?Negative 05/02/2013 ?? 09:28:00 ?? Negative ?Negative ?Microscopic ?Test: Mucus Thrds ??RBC Ur ??WBC Ur ??Bacteria Ur ? Reference: ?[0-3] ?? [0-5] ?? [Trace] ? Units: /HPF ? /HPF ?/HPF 05/03/2013 ?? 14:52:00 ?? Small ?2 ? 0 ? Trace ?Test: Epithl Renl Ur ? Reference: [0-0] ? Units: /HPF 05/03/2013 ?? 14:52:00 ?? 0 ? COMPLETE BLOOD COUNT ?Test: WBC ?RBC ?Hgb ? Reference: [3.8-9.8] ??[4.50-5.70] ??[13.8-17.2] ? Units: K/cumm ? M/cumm ? g/dL 05/04/2013 ?? 00:31:00 ?? 14.8 ??H ?3.95 ??L ?11.3 ??L 05/03/2013 ?? 20:35:00 ?? 16.4 ??H ?4.19 ??L ?11.7 ??L 05/03/2013 ?? 00:48:00 ?? 9.4 ?4.09 ??L ?11.6 ??L 05/02/2013 ?? 15:30:00 ?? 5.9 ?3.85 ??L ?11.0 ??L ?Test: Hct ?Platelet Ct ??MCV ? Reference: [40.7-50.3] ??[140-440] ?[80.0-97.6] ? Units: % ?K/cumm ? fL 05/04/2013 ?? 00:31:00 ?? 33.5 ??L ?269 ??f ? 84.8 05/03/2013 ?? 20:35:00 ?? 35.7 ??L ?116 ??Lf ?85.2 05/03/2013 ?? 00:48:00 ?? 35.5 ??L ?269 ?86.8 05/02/2013 ?? 15:30:00 ?? 32.7 ??L ?262 ?85.0 05/04/2013 00:31:00 ??Platelet Ct: verified ? COMPLETE BLOOD COUNT 05/03/2013 20:35:00 ??Platelet Ct: No clot detected in sample. ?Test: MCH ?MCHC ? RDW ? Reference: [26.7-33.7] ??[32.7-35.5] ??[11.8-14.6] ? Units: pg ? g/dL ? % 05/04/2013 ?? 00:31:00 ?? 28.6 ? 33.8 ? 15.6 ??H 05/03/2013 ?? 20:35:00 ?? 27.9 ? 32.8 ? 15.8 ??H 05/03/2013 ?? 00:48:00 ?? 28.3 ? 32.6 ??L ?15.6 ??H 05/02/2013 ?? 15:30:00 ?? 28.6 ? 33.6 ? 15.9 ??H ?Test: MPV ? Reference: [6.8-10.4] ? Units: fL 05/04/2013 ?? 00:31:00 ?? 7.5 05/03/2013 ?? 20:35:00 ?? 7.6 05/03/2013 ?? 00:48:00 ?? 8.8 05/02/2013 ?? 15:30:00 ?? 6.9 ? AUTOMATED WHITE CELL DIFFERENTIAL ?Test: Neut Pct Auto ??Lymph Pct Auto ??Bleckley Pct Auto ? Reference: [38.7-74.5] ?[20.0-54.3] ? [4.3-13.5] ? Units: % ?% ? % 05/04/2013 ?? 00:31:00 ?? 73.8 ? 12.0 ??L ? 13.6 ??H 05/03/2013 ?? 20:35:00 ?? 75.0 ??H ?12.3 ??L ? 12.0 05/03/2013 ?? 00:48:00 ?? 77.4 ??H ?12.8 ??L ? 9.5 05/02/2013 ?? 15:30:00 ?? 82.1 ??H ?15.5 ??L ? 1.2 ??L ?Test: Eos Pct Auto ??Baso Pct Auto ??Neut Abs Auto ? Reference: [0.0-6.0] ? [0.0-3.0] ?[1.8-6.6] ? Units: % ? % ?K/cumm 05/04/2013 ?? 00:31:00 ?? 0.2 ? 0.4 ?11.0 ??H 05/03/2013 ?? 20:35:00 ?? 0.4 ? 0.3 ?12.3 ??H 05/03/2013 ?? 00:48:00 ?? 0.1 ? 0.2 ?7.3 ??H 05/02/2013 ?? 15:30:00 ?? 1.0 ? 0.2 ?4.8 ?Test: Lymph Abs Auto ??Bleckley Abs Auto ??Eos Abs Auto ? Reference: [1.2-3.3] ? [0.2-1.2] ?[0.0-0.5] ? Units: K/cumm ?K/cumm ? K/cumm 05/04/2013 ?? 00:31:00 ?? 1.8 ? 2.0 ??H ? 0.0 05/03/2013 ?? 20:35:00 ?? 2.0 ? 2.0 ??H ? 0.1 05/03/2013 ?? 00:48:00 ?? 1.2 ? 0.9 ?0.0 05/02/2013 ?? 15:30:00 ?? 0.9 ??L ?0.1 ??L ? 0.1 ?Test: Baso Abs Auto ? Reference: [0.0-0.2] ? Units: K/cumm 05/04/2013 ?? 00:31:00 ?? 0.1 05/03/2013 ?? 20:35:00 ?? 0.0 ? AUTOMATED WHITE CELL DIFFERENTIAL ?Test: Baso Abs Auto ? Reference: [0.0-0.2] ? Units: K/cumm 05/03/2013 ?? 00:48:00 ?? 0.0 05/02/2013 ?? 15:30:00 ?? 0.0 ? HEMOSTASIS AND THROMBOSIS ?Routine Coagulation Studies ?Test: PT ?INR i ?aPTT i ? Reference: [9.0-12.0] ??[0.90-1.20] ??[25.0-37.0] ? Units: sec ?sec 05/02/2013 ?? 15:30:00 ?? 10.7 ?1.02 ? 27.8 05/02/2013 15:30:00 INR: Interpretive Data Inpatient therapeutic ranges* Atrial fibrillation ?2.0-3.0 INR Venous thrombo-embolism ?2.0-3.0 INR Bioprosthetic heart valve ?* Mechanical heart valve, bileaflet or tilting disk,aortic position ? 2.0-3.0 INR All other,or bileaflet or tilting disk, in mitral position ? 2.5-3.5 INR *See the pharmacy resource directory (PHRED) for an updated copy of the Tool Book at [email or web address] Current Interpretive Data was last revised 2011. 05/02/2013 15:30:00 aPTT: Interpretive Data Therapeutic heparin range:60.0 - 94.0 sec based on correlation with therapeutic heparin activity range of 0.3 -0.7 Units/mL. Current interpretive data was last revised on 2011. ? TRANSFUSION MEDICINE ?Test: Indirect Osiel. ??ABO/Rh Pat Interp ? Reference: ? Units: 05/03/2013 ?? 20:37:00 ?? Negative ?B Positive 05/02/2013 ?? 08:31:00 ?? Negative ?B Positive 05/01/2013 ?? 18:17:00 ?? Negative ?B Positive ?POINT OF CARE TESTS ? Chemistry ?Test: Glucose POC ? Reference: [70-199] ? Units: mg/dL 05/06/2013 ?? 11:49:00 ?? 112 05/06/2013 ?? 10:41:00 ?? 101 05/06/2013 ?? 07:32:00 ?? 68 ??L 05/05/2013 ?? 21:04:00 ?? 85 05/05/2013 ?? 16:30:00 ?? 74 05/05/2013 ?? 11:31:00 ?? 103 05/05/2013 ?? 07:21:00 ?? 83 05/05/2013 ?? 05:53:00 ?? 98 05/05/2013 ?? 00:15:00 ?? 102 05/04/2013 ?? 21:15:00 ?? 98 05/04/2013 ?? 11:39:00 ?? 100 05/04/2013 ?? 07:40:00 ?? 107 05/04/2013 ?? 06:52:00 ?? 116 05/03/2013 ?? 21:16:00 ?? 117 05/03/2013 ?? 16:57:00 ?? 108 05/03/2013 ?? 12:07:00 ?? 128 05/03/2013 ?? 08:03:00 ?? 98 05/03/2013 ?? 02:25:00 ?? 104 05/02/2013 ?? 20:13:00 ?? 107 05/02/2013 ?? 18:22:00 ?? 116 ? MICROBIOLOGY - ALL TESTS ? PROCEDURE: Aerobic, Anaerobic and Mycology Culture, Blood ?SOURCE: Blood COLLECTED: 05/03/13 ??1452 ? BODY SITE: Antecubital, left STARTED: 05/03/13 ??1549 FREE TEXT SOURCE: FINAL REPORT REPORTED: 05/09/13455 No growth ? PROCEDURE: Aerobic, Anaerobic and Mycology Culture, Blood ?SOURCE: Blood COLLECTED: 05/03/13 ??1452 ? BODY SITE: Antecubital, right STARTED: 05/03/13 ??1543 FREE TEXT SOURCE: FINAL REPORT REPORTED: 05/09/13 045 No growth ? MICROBIOLOGY - ALL TESTS ? PROCEDURE: Urine Culture ?SOURCE: Urine, catheterized COLLECTED: 05/03/13 ??1515 ? BODY SITE: STARTED: 05/03/13 ??1536 FREE TEXT SOURCE: FINAL REPORT REPORTED: 05/05/13 0941 No growth ? MICROBIOLOGY - BLOOD/STERILE FLUID ? PROCEDURE: Aerobic, Anaerobic and Mycology Culture, Blood ?SOURCE: Blood COLLECTED: 05/03/13 ??1452 ? BODY SITE: Antecubital, left STARTED: 05/03/13 ??1549 FREE TEXT SOURCE: FINAL REPORT REPORTED: 05/09/13 0456 No growth ? PROCEDURE: Aerobic, Anaerobic and Mycology Culture, Blood ?SOURCE: Blood COLLECTED: 05/03/13 ??1452 ? BODY SITE: Antecubital, right STARTED: 05/03/13 ??1543 FREE TEXT SOURCE: FINAL REPORT REPORTED: 05/09/13 0456 No growth ? MICROBIOLOGY - URINE ? PROCEDURE: Urine Culture ?SOURCE: Urine, catheterized COLLECTED: 05/03/13 ??1515 ? BODY SITE: STARTED: 05/03/13 ??1536 FREE TEXT SOURCE: FINAL REPORT REPORTED: 05/05/13 0941 No growth ? CANCELLED TESTS Date ?Time ?Test ?Cancel Reason 05/03/2013 ??00:48:00 ??Basic Met Plas ??[facility] Hemolyzed 05/03/2013 ??00:48:00 ??Magnesium ? [facility] Hemolyzed 05/03/2013 ??00:48:00 ??Phos Plas ? [facility] Hemolyzed 05/03/2013 ??12:30:00 ??Basic Met Plas ??Lab Operations Cancel 05/03/2013 ??12:30:00 ??CBC ? Lab Operations Cancel 05/03/2013 ??20:37:00 ??Basic Met Plas ??[facility] Duplicate 05/03/2013 ??20:37:00 ??CBC ? [facility] Clotted Historical Provider LAB BLOOD ORDERABLES Adeline l Result Performing Organization Address [facility] de Phone Number HISTORICAL RESULTS * Blood glucose, POC (05/05/2013 9:04 PM FISHERIES SPECIALIST) Glucose, POC, bld 85 70 - 199 mg/dl HISTORICAL RESULTS Blood specimen (specimen) 05/05/2013 9:04 PM FISHERIES SPECIALIST Issac Schneider MD LAB BLOOD ORDERABLES Final Result Performing Organization Address [facility] Phone Number HISTORICAL RESULTS * Blood glucose, POC (05/05/2013 4:30 PM FISHERIES SPECIALIST) Glucose, POC, bld 74 70 - 199 mg/dl HISTORICAL RESULTS Blood specimen (specimen) 05/05/2013 4:30 PM FISHERIES SPECIALIST Issac Schneider MD LAB BLOOD ORDERABLES Final Result Performing Organization Address [facility] de Phone Number HISTORICAL RESULTS * Blood glucose, POC (05/05/2013 11:31 AM FISHERIES SPECIALIST) Glucose, POC, bld 103 70 - 199 mg/dl HISTORICAL RESULTS Blood specimen (specimen) 05/05/2013 11:31 AM FISHERIES SPECIALIST Issac Schneider MD LAB BLOOD ORDERABLES Final Result Performing Organization Address [facility] de Phone Number HISTORICAL RESULTS * Blood glucose, POC (05/05/2013 7:21 AM FISHERIES SPECIALIST) Glucose, POC, bld 83 70 - 199 mg/dl HISTORICAL RESULTS Blood specimen (specimen) 05/05/2013 7:21 AM FISHERIES SPECIALIST Result Jena Schneider MD LAB BLOOD ORDERABLES Final Result Performing Organization Address [facility] Number HISTORICAL RESULTS * Blood glucose, POC (05/05/2013 5:53 AM FISHERIES SPECIALIST) Glucose, POC, bld 98 70 - 199 mg/dl HISTORICAL RESULTS Blood specimen (specimen) 05/05/2013 5:53 AM FISHERIES SPECIALIST Result Jena Schneider MD LAB BLOOD ORDERABLES Final Result Performing Organization Address [facility] Number HISTORICAL RESULTS * Blood glucose, POC (05/05/2013 12:15 AM FISHERIES SPECIALIST) Glucose, POC, bld 102 70 - 199 mg/dl HISTORICAL RESULTS Blood specimen (specimen) 05/05/2013 12:15 AM FISHERIES SPECIALIST Result Jena Schneider MD LAB BLOOD ORDERABLES Final Result Performing Organization Address [facility] Phone Number HISTORICAL RESULTS * Blood glucose, POC (05/04/2013 9:15 PM FISHERIES SPECIALIST) Glucose, POC, bld 98 70 - 199 mg/dl HISTORICAL RESULTS Blood specimen (specimen) 05/04/2013 9:15 PM FISHERIES SPECIALIST Result Jena Schneider MD LAB BLOOD ORDERABLES Final Result Performing Organization Address [facility] Phone Number HISTORICAL RESULTS * Blood glucose, POC (05/04/2013 11:39 AM FISHERIES SPECIALIST) Glucose, POC, bld 100 70 - 199 mg/dl HISTORICAL RESULTS Blood specimen (specimen) 05/04/2013 11:39 AM FISHERIES SPECIALIST Result Jena Schneider MD LAB BLOOD ORDERABLES Final Result Performing Organization Address [facility] de Phone Number HISTORICAL RESULTS * Blood glucose, POC (05/04/2013 7:40 AM FISHERIES SPECIALIST) Glucose, POC, bld 107 70 - 199 mg/dl HISTORICAL RESULTS Blood specimen (specimen) 05/04/2013 7:40 AM FISHERIES SPECIALIST Issca Schneider MD LAB BLOOD ORDERABLES Final Result Performing Organization Address [facility] de Phone Number HISTORICAL RESULTS * Blood glucose, POC (05/04/2013 6:52 AM FISHERIES SPECIALIST) Glucose, POC, bld 116 70 - 199 mg/dl HISTORICAL RESULTS Blood specimen (specimen) 05/04/2013 6:52 AM FISHERIES SPECIALIST Issac Schneider MD LAB BLOOD ORDERABLES Final Result Performing Organization Address [facility] de Phone Number HISTORICAL RESULTS * (ABNORMAL) Blood cell count (CBC) (05/04/2013 12:31 AM FISHERIES SPECIALIST) WBC 14.8(H) 3.8 - 9.8 K/cumm HISTORICAL RESULTS RBC 3.95(L) 4.50 - 5.70 M/cumm HISTORICAL RESULTS Hgb 11.3(L) 13.8 - 17.2 g/dl HISTORICAL RESULTS Hct 33.5(L) 40.7 - 50.3 % HISTORICAL RESULTS MCV 84.8 80.0 - 97.6 fl HISTORICAL RESULTS MCH 28.6 26.7 - 33.7 pg HISTORICAL RESULTS MCHC 33.8 32.7 - 35.5 g/dl HISTORICAL RESULTS Rdw 15.6(H) 11.8 - 14.6 % HISTORICAL RESULTS Platelets 269 140 - 440 K/cumm HISTORICAL RESULTS Comment:verified MPV 7.5 6.8 - 10.4 fl HISTORICAL RESULTS Neutrophils 73.8 38.7 - 74.5 % HISTORICAL RESULTS Lymphocytes 12.0(L) 20.0 - 54.3 % HISTORICAL RESULTS Monos 13.6(H) 4.3 - 13.5 % HISTORICAL RESULTS Eosinophils 0.2 0.0 - 6.0 % HISTORICAL RESULTS Basophils 0.4 0.0 - 3.0 % HISTORICAL RESULTS Neutrophils, abs 11.0(H) 1.8 - 6.6 K/cumm HISTORICAL RESULTS Lymphocytes, abs 1.8 1.2 - 3.3 K/cumm HISTORICAL RESULTS Monocytes, absolute 2.0(H) 0.2 - 1.2 K/cumm HISTORICAL RESULTS Eosinophils, abs 0.0 0.0 - 0.5 K/cumm HISTORICAL RESULTS Basophils, abs 0.1 0.0 - 0.2 K/cumm HISTORICAL RESULTS Blood specimen (specimen) 05/04/2013 12:31 AM FISHERIES SPECIALIST Deep Leone MD LAB BLOOD ORDERABLES Final R esult Performing Organization Address [facility] de Phone Number HISTORICAL RESULTS * Blood glucose, POC (05/03/2013 9:16 PM FISHERIES SPECIALIST) Pathologist [facility] Glucose, POC, bld 117 70 - 199 mg/dl HISTORICAL RESULTS Blood specimen (specimen) 05/03/2013 9:16 PM FISHERIES SPECIALIST Issac Schneider MD LAB BLOOD ORDERABLES Final Result Performing Organization Address [facility] de Phone Number HISTORICAL RESULTS * (ABNORMAL) Blood gas, arterial (05/03/2013 8:37 PM FISHERIES SPECIALIST) PO2, art 79(L) 80 - 105 mm Hg HISTORICAL RESULTS Ph, art 7.41 7.35 - 7.45 HISTORICAL RESULTS CO2, calc, art 16(L) 21 - 30 mmol/L HISTORICAL RESULTS PCO2 25(L) 35 - 45 mm Hg HISTORICAL RESULTS A-a gradient Not Applicable mm Hg HI STORICAL RESULTS O2, inspired, %, art Not Applicable % HISTORICAL RESULTS Oxygen (O2), inspired fraction (FiO2) Not Applicable liters HISTORICAL RESULTS Arterial blood 05/03/2013 8: 37 PM FISHERIES SPECIALIST Deep Leone MD LAB BLOOD ORDERABLES Final R esult Performing Organization Address [facility] de Phone Number HISTORICAL RESULTS * (ABNORMAL) Plasma comprehensive metabolic panel (05/03/2013 8:37 PM FISHERIES SPECIALIST) Sodium 136 135 - 145 mmol/L HISTORICAL RESULTS K, pl 3.9 3.3 - 4.9 mmol/L HISTORICAL RESULTS Chloride 110 97 - 110 mmol/L HISTORICAL RESULTS CO2 17(L) 22 - 32 mmol/L HISTORICAL RESULTS A. gap 9 0 - 16 mmol/L HISTORICAL RESULTS Glucose 127 70 - 199 mg/dl HISTORICAL RESULTS BUN 7(L) 8 - 25 mg/dl HISTORICAL RESULTS Creatinine 0.59(L) 0.70 - 1.30 mg/dl HISTORICAL RESULTS Calcium 8.6 8.6 - 10.3 mg/dl HISTORICAL RESULTS Protein, pl 6.7 6.5 - 8.5 g/dl HISTORICAL RESULTS Alb 3.6 3.6 - 5.0 g/dl HISTORICAL RESULTS Bilirubin 0.3 0.3 - 1.1 mg/dl HISTORICAL RESULTS Alk phos 71 38 - 126 Units/L HISTORICAL RESULTS AST 106(H) 11 - 47 Units/L HISTORICAL RESULTS ALT 55(H) 7 - 53 Units/L HISTORICAL RESULTS Plasma 05/03/2013 8:37 PM FISHERIES SPECIALIST Deep Leone MD LAB BLOOD ORDERABLES Final R psychiatric hospital Performing Organization Address [facility] Co de Phone Number HISTORICAL RESULTS * (ABNORMAL) Plasma ammonia (05/03/2013 8:37 PM FISHERIES SPECIALIST) Ammonia 63(H) 9 - 33 mcmol/L HISTORICAL RESULTS Plasma 05/03/2013 8:37 PM FISHERIES SPECIALIST Deep Leone MD LAB BLOOD ORDERABLES Final R esult HISTORICAL RESULTS * Blood ABO, Rh, indirect ab screen (05/03/2013 8:37 PM FISHERIES SPECIALIST) ABO, Rho(D) B Positive HISTORI BAMBI RESULTS Osiel, indirect Negative HISTORICAL RESULTS Blood specimen (specimen) 05/03/2013 8:37 PM FISHERIES SPECIALIST Barrie Sood MD LAB BLOOD ORDERABLES Final Res ult HISTORICAL RESULTS * (ABNORMAL) Blood cell count (CBC) (05/03/2013 8:35 PM FISHERIES SPECIALIST) WBC 16.4(H) 3.8 - 9.8 K/cumm HISTORICAL RESULTS RBC 4.19(L) 4.50 - 5.70 M/cumm HISTORICAL RESULTS Hgb 11.7(L) 13.8 - 17.2 g/dl HISTORICAL RESULTS Hct 35.7(L) 40.7 - 50.3 % HISTORICAL RESULTS MCV 85.2 80.0 - 97.6 fl HISTORICAL RESULTS MCH 27.9 26.7 - 33.7 pg HISTORICAL RESULTS MCHC 32.8 32.7 - 35.5 g/dl HISTORICAL RESULTS Rdw 15.8(H) 11.8 - 14.6 % HISTORICAL RESULTS Platelets 116(L) 140 - 440 K/cumm HISTORICAL RESULTS Comment:{No clot detected in sample.} MPV 7.6 6.8 - 10.4 fl HISTORICAL RESULTS Neutrophils 75.0(H) 38.7 - 74.5 % HISTORICAL RESULTS Lymphocytes 12.3(L) 20.0 - 54.3 % HISTORICAL RESULTS Monos 12.0 4.3 - 13.5 % HISTORICAL RESULTS Eosinophils 0.4 0.0 - 6.0 % HISTORICAL RESULTS Basophils 0.3 0.0 - 3.0 % HISTORICAL RESULTS Neutrophils, abs 12.3(H) 1.8 - 6.6 K/cumm HISTORICAL RESULTS Lymphocytes, abs 2.0 1.2 - 3.3 K/cumm HISTORICAL RESULTS Monocytes, absolute 2.0(H) 0.2 - 1.2 K/cumm HISTORICAL RESULTS Eosinophils, abs 0.1 0.0 - 0.5 K/cumm HISTORICAL RESULTS Basophils, abs 0.0 0.0 - 0.2 K/cumm HISTORICAL RESULTS Blood specimen (specimen) 05/03/2013 8:35 PM FISHERIES SPECIALIST us Deep Leone MD LAB BLOOD ORDERABLES Final R esult HISTORICAL RESULTS * Blood glucose, POC (05/03/2013 4:57 PM FISHERIES SPECIALIST) Glucose, POC, bld 108 70 - 199 mg/dl HISTORICAL RESULTS Blood specimen (specimen) 05/03/2013 4:57 PM FISHERIES SPECIALIST Issac Schneider MD LAB BLOOD ORDERABLES Final Result Performing Organization Address [facility] de Phone Number HISTORICAL RESULTS * Urine (aerobic) culture (05/03/2013 3:15 PM FISHERIES SPECIALIST) Urine, catheterized (Unknown) 05/03/2013 3:15 PM FISHERIES SPECIALIST 05/03/2013 3:36 PM FISHERIES SPECIALIST Narrative HISTORICAL RESULTS - 05/05/2013 9:41 AM FISHERIES SPECIALIST No growth Historical Provider LAB MICROBIOLOGY - GENERA L ORDERABLES Final Result Performing Organization Address [facility] de Phone Number HISTORICAL RESULTS * Blood culture (05/03/2013 2:52 PM FISHERIES SPECIALIST) Blood specimen (specimen) (Antecubital, right) 05/03/2013 2:52 PM FISHERIES SPECIALIST 05/03/2013 3:43 PM FISHERIES SPECIALIST Narrative HISTORICAL RESULTS - 05/09/2013 4:56 AM FISHERIES SPECIALIST No growth Historical Provider LAB MICROBIOLOGY - GENERA L ORDERABLES Final Result Performing Organization Address [facility] de Phone Number HISTORICAL RESULTS * Blood culture (05/03/2013 2:52 PM FISHERIES SPECIALIST) Blood specimen (specimen) (Antecubital, left) 05/03/2013 2:52 PM FISHERIES SPECIALIST 05/03/2013 3:49 PM FISHERIES SPECIALIST Narrative HISTORICAL RESULTS - 05/09/2013 4:56 AM FISHERIES SPECIALIST No growth Historical Provider LAB MICROBIOLOGY - GENERA L ORDERABLES Final Result Performing Organization Address [facility] de Phone Number HISTORICAL RESULTS * Urinalysis (05/03/2013 2:52 PM FISHERIES SPECIALIST) Color, ur Light-Yellow Yellow HISTORI BAMBI RESULTS Clarity, ur Clear Clear HISTORIC AL RESULTS Specific gravity, ur 1.015 1.003 - 1.030 HISTORICAL RESULTS pH, ur 8.0 5.0 - 8.0 HISTORICAL RESULTS Protein, ur Trace Trace HISTORIC AL RESULTS Glucose, ur Negative Negative HISTORIC AL RESULTS Ketones, ur Negative Negative HISTORIC AL RESULTS Bilirubin, ur Negative Negative HISTOR ICAL RESULTS U Blood Negative Negative HISTORICAL RESULTS Urobilinogen, quant, ur <2.0 0.0 - 2.0 mg/dl HISTORICAL RESULTS Nitrites, ur Negative Negative HISTORI BAMBI RESULTS Leukocyte esterase, ur Negative Negative HISTORICAL RESULTS Urine 05/03/2013 2:52 PM FISHERIES SPECIALIST Barrie Sood MD LAB BLOOD ORDERABLES Final Res ult Performing Organization Address [facility] Co de Phone Number HISTORICAL RESULTS * Urine microscopy (05/03/2013 2:52 PM FISHERIES SPECIALIST) RBC, ur 2 0 - 3 /hpf HISTORICA L RESULTS WBC, ur 0 0 - 5 /hpf HISTORICA L RESULTS Bacteria, ur Trace Trace HISTORI BAMBI RESULTS Epithelial cells, renal, ur 0 0 - 0 /hpf HISTORICAL RESULTS Mucus, ur Small /hpf HISTORICAL RESULTS Urine 05/03/2013 2:52 PM FISHERIES SPECIALIST Barrie Sood MD LAB BLOOD ORDERABLES Final Res ult Performing Organization Address [facility] Co de Phone Number HISTORICAL RESULTS * Blood glucose, POC (05/03/2013 12:07 PM FISHERIES SPECIALIST) Glucose, POC, bld 128 70 - 199 mg/dl HISTORICAL RESULTS Blood specimen (specimen) 05/03/2013 12:07 PM FISHERIES SPECIALIST Issac Schneider MD LAB BLOOD ORDERABLES Final Result Performing Organization Address [facility] Co de Phone Number HISTORICAL RESULTS * Blood glucose, POC (05/03/2013 8:03 AM FISHERIES SPECIALIST) Glucose, POC, bld 98 70 - 199 mg/dl HISTORICAL RESULTS Blood specimen (specimen) 05/03/2013 8:03 AM FISHERIES SPECIALIST Issac Schneider MD LAB BLOOD ORDERABLES Final Result Performing Organization Address [facility] de Phone Number HISTORICAL RESULTS * (ABNORMAL) Plasma basic metabolic panel (05/03/2013 3:39 AM FISHERIES SPECIALIST) Sodium 143 135 - 145 mmol/L HISTORICAL RESULTS K, pl 3.6 3.3 - 4.9 mmol/L HISTORICAL RESULTS Chloride 112(H) 97 - 110 mmol/L HISTORICAL RESULTS CO2 21(L) 22 - 32 mmol/L HISTORICAL RESULTS A. gap 10 0 - 16 mmol/L HISTORICAL RESULTS Glucose 107 70 - 199 mg/dl HISTORICAL RESULTS BUN 8 8 - 25 mg/dl HISTORICAL RESULTS Creatinine 0.62(L) 0.70 - 1.30 mg/dl HISTORICAL RESULTS Calcium 8.1(L) 8.6 - 10.3 mg/dl HISTORICAL RESULTS Plasma 05/03/2013 3:39 AM FISHERIES SPECIALIST Barrie Sood MD LAB BLOOD ORDERABLES Final Res ult Performing Organization Address [facility] de Phone Number HISTORICAL RESULTS * Plasma phosphorus (05/03/2013 3:39 AM FISHERIES SPECIALIST) Phosphorus, pl 2.5 2.3 - 4.3 mg/dl HISTORICAL RESULTS Plasma 05/03/2013 3:39 AM FISHERIES SPECIALIST Barrie Sood MD LAB BLOOD ORDERABLES Final Res ult Performing Organization Address [facility] de Phone Number HISTORICAL RESULTS * Serum magnesium (05/03/2013 3:39 AM FISHERIES SPECIALIST) Magnesium 1.9 1.4 - 2.5 mg/dl HISTORICAL RESULTS Serum 05/03/2013 3:39 AM FISHERIES SPECIALIST Barrie Sood MD LAB BLOOD ORDERABLES Final Res ult Performing Organization Address [facility] de Phone Number HISTORICAL RESULTS * Blood glucose, POC (05/03/2013 2:25 AM FISHERIES SPECIALIST) Glucose, POC, bld 104 70 - 199 mg/dl HISTORICAL RESULTS Blood specimen (specimen) 05/03/2013 2:25 AM FISHERIES SPECIALIST us Issac Schneider MD LAB BLOOD ORDERABLES Final Result HISTORICAL RESULTS * (ABNORMAL) Blood cell count (CBC) (05/03/2013 12:48 AM FISHERIES SPECIALIST) Pathologist [facility] WBC 9.4 3.8 - 9.8 K/cumm HISTORICAL RESULTS RBC 4.09(L) 4.50 - 5.70 M/cumm HISTORICAL RESULTS Hgb 11.6(L) 13.8 - 17.2 g/dl HISTORICAL RESULTS Hct 35.5(L) 40.7 - 50.3 % HISTORICAL RESULTS MCV 86.8 80.0 - 97.6 fl HISTORICAL RESULTS MCH 28.3 26.7 - 33.7 pg HISTORICAL RESULTS MCHC 32.6(L) 32.7 - 35.5 g/dl HISTORICAL RESULTS Rdw 15.6(H) 11.8 - 14.6 % HISTORICAL RESULTS Platelets 269 140 - 440 K/cumm HISTORICAL RESULTS MPV 8.8 6.8 - 10.4 fl HISTORICAL RESULTS Neutrophils 77.4(H) 38.7 - 74.5 % HISTORICAL RESULTS Lymphocytes 12.8(L) 20.0 - 54.3 % HISTORICAL RESULTS Monos 9.5 4.3 - 13.5 % HISTORICAL RESULTS Eosinophils 0.1 0.0 - 6.0 % HISTORICAL RESULTS Basophils 0.2 0.0 - 3.0 % HISTORICAL RESULTS Neutrophils, abs 7.3(H) 1.8 - 6.6 K/cumm HISTORICAL RESULTS Lymphocytes, abs 1.2 1.2 - 3.3 K/cumm HISTORICAL RESULTS Monocytes, absolute 0.9 0.2 - 1.2 K/cumm HISTORICAL RESULTS Eosinophils, abs 0.0 0.0 - 0.5 K/cumm HISTORICAL RESULTS Basophils, abs 0.0 0.0 - 0.2 K/cumm HISTORICAL RESULTS Blood specimen (specimen) 05/03/2013 12:48 AM FISHERIES SPECIALIST us Zakiya Powell MD LAB BLOOD ORDERDENNIS miller Result HISTORICAL RESULTS * All Microbiology Report Section (05/03/2013 12:00 AM FISHERIES SPECIALIST) 05/03/2013 Narrative HISTORICAL RESULTS - 05/09/2013 6:16 AM FISHERIES SPECIALIST ? [facility] ?[address] [facility] [address] ?[place], [place] [address] ? Patient Name: ??REJI BRANCH ? Med Rec Number: [id number] ? Fin Number: ?[id number] ? Date: ?1965 ? Sex/Age: ? Male 48 years ? Admit Date: ?05/02/2013 ? Discharge Date: 05/06/2013 ? Doctor: ?J[place] , Issac L ? Facility: ?[facility] ? Location: ?OTHER ?* Abnormal ??A Alert ??f Footnote ??^ Corrected ??L Low ??H High ?i Interp Data ??@ Ref Lab ? Chart Type:Cumulative ?* * * * MICROBIOLOGY - URINE * * * * ?PROCEDURE: Urine Culture ? SOURCE: Urine, catheterized ? COLLECTED: 05/03/13 ??1515 ?BODY SITE: ? STARTED: 05/03/13 ??1536 ? FREE TEXT SOURCE: ? FINAL REPORT ? REPORTED: 05/05/13 0941 ? No growth us Historical Provider MD LAB MICROBIOLOGY - GENERA L ORDERABLES Final Result HISTORICAL RESULTS * All Microbiology Report Section (05/03/2013 12:00 AM FISHERIES SPECIALIST) 05/03/2013 Narrative HISTORICAL RESULTS - 05/09/2013 6:16 AM FISHERIES SPECIALIST ? [facility] ?[address] [facility] [address] ?[place] [address] ? Patient Name: ??REJI BRANCH ? Med Rec Number: [id number] ? Fin Number: ?[id number] ? Date: ?1965 ? Sex/Age: ? Male 48 years ? Admit Date: ?05/02/2013 ? Discharge Date: 05/06/2013 ? Doctor: ?Issac Schneider ? Facility: ?[facility] ? Location: ?OTHER ?* Abnormal ??A Alert ??f Footnote ??^ Corrected ??L Low ??H High ?i Interp Data ??@ Ref Lab ? Chart Type:Cumulative ?* * * * MICROBIOLOGY - BLOOD/STERILE FLUID * * * * ?PROCEDURE: Aerobic, Anaerobic and Mycology Culture, Blood ? SOURCE: Blood ? COLLECTED: 05/03/ ??1452 ?BODY SITE: Antecubital, right ? STARTED: 05/03/13 ??1543 ? FREE TEXT SOURCE: ? FINAL REPORT ? REPORTED: 05/09/13 0456 ? No growth us Historical Provider MD LAB MICROBIOLOGY - GENERA L ORDERABLES Final Result HISTORICAL RESULTS * All Microbiology Report Section (05/03/2013 12:00 AM FISHERIES SPECIALIST) 05/03/2013 Narrative HISTORICAL RESULTS - 05/09/2013 6:16 AM FISHERIES SPECIALIST ? [facility] ?[address] [facility] [address] ?[place], [place] [address] ? Patient Name: ??REJI BRANCH ? Med Rec Number: [id number] ? Fin Number: ?[id number] ? Date: ?1965 ? Sex/Age: ? Male 48 years ? Admit Date: ?05/02/2013 ? Discharge Date: 05/06/2013 ? Doctor: ?[place] , Issac L ? Facility: ?[facility] ? Location: ?OTHER ?* Abnormal ??A Alert ??f Footnote ??^ Corrected ??L Low ??H High ?i Interp Data ??@ Ref Lab ? Chart Type:Cumulative ?* * * * MICROBIOLOGY - BLOOD/STERILE FLUID * * * * ?PROCEDURE: Aerobic, Anaerobic and Mycology Culture, Blood ? SOURCE: Blood ? COLLECTED: 12//13 ??1452 ?BODY SITE: Antecubital, left ? STARTED: 12/21/13 ??1549 ? FREE TEXT SOURCE: ? FINAL REPORT ? REPORTED: 05/09/13 0456 ? No growth Historical Provider LAB MICROBIOLOGY - GENERA L ORDERABLES Final Result Performing Organization Address [facility] Co de Phone Number HISTORICAL RESULTS * Blood glucose, POC (05/02/2013 8:13 PM FISHERIES SPECIALIST) Glucose, POC, bld 107 70 - 199 mg/dl HISTORICAL RESULTS Blood specimen (specimen) 05/02/2013 8:13 PM FISHERIES SPECIALIST Issac Schneider MD LAB BLOOD ORDERABLES Final Result Performing Organization Address [facility] de Phone Number HISTORICAL RESULTS * Blood glucose, POC (05/02/2013 6:22 PM FISHERIES SPECIALIST) Glucose, POC, bld 116 70 - 199 mg/dl HISTORICAL RESULTS Blood specimen (specimen) 05/02/2013 6:22 PM FISHERIES SPECIALIST Issac Schneider MD LAB BLOOD ORDERABLES Final Result Performing Organization Address [facility] de Phone Number HISTORICAL RESULTS * (ABNORMAL) Plasma comprehensive metabolic panel (05/02/2013 3:30 PM FISHERIES SPECIALIST) Sodium 142 135 - 145 mmol/L HISTORICAL RESULTS K, pl 4.2 3.3 - 4.9 mmol/L HISTORICAL RESULTS Chloride 112(H) 97 - 110 mmol/L HISTORICAL RESULTS CO2 19(L) 22 - 32 mmol/L HISTORICAL RESULTS A. gap 11 0 - 16 mmol/L HISTORICAL RESULTS Glucose 141 70 - 199 mg/dl HISTORICAL RESULTS BUN 10 8 - 25 mg/dl HISTORICAL RESULTS Creatinine 0.68(L) 0.70 - 1.30 mg/dl HISTORICAL RESULTS Calcium 8.2(L) 8.6 - 10.3 mg/dl HISTORICAL RESULTS Protein, pl 6.9 6.5 - 8.5 g/dl HISTORICAL RESULTS Alb 4.2 3.6 - 5.0 g/dl HISTORICAL RESULTS Bilirubin 0.2(L) 0.3 - 1.1 mg/dl HISTORICAL RESULTS Alk phos 79 38 - 126 Units/L HISTORICAL RESULTS AST 68(H) 11 - 47 Units/L HISTORICAL RESULTS ALT 61(H) 7 - 53 Units/L HISTORICAL RESULTS Plasma 05/02/2013 3:30 PM FISHERIES SPECIALIST Barrie Sood MD LAB BLOOD ORDERABLES Final Res ult Performing Organization Address [facility] de Phone Number HISTORICAL RESULTS * Plasma partial thromboplastin time (PTT) (05/02/2013 3:30 PM FISHERIES SPECIALIST) APTT 27.8 25.0 - 37.0 seconds HISTORICAL RESULTS Comment: Interpretive Data Therapeutic heparin range:60.0 - 94.0 sec based on correlation with therapeutic heparin activity range of 0.3 -0.7 Units/mL. Current interpretive data was last revised on 2011. Plasma 05/02/2013 3:30 PM FISHERIES SPECIALIST Result [facility] Barrie Sood MD LAB BLOOD ORDERABLES Final Res ult Performing Organization Address [facility] de Phone Number HISTORICAL RESULTS * Plasma phosphorus (05/02/2013 3:30 PM FISHERIES SPECIALIST) Phosphorus, pl 3.5 2.3 - 4.3 mg/dl HISTORICAL RESULTS Plasma 05/02/2013 3:30 PM FISHERIES SPECIALIST Result [facility] Barrie Sood MD LAB BLOOD ORDERABLES Final Res ult Performing Organization Address [facility] de Phone Number HISTORICAL RESULTS * Plasma prothrombin time (PT) (05/02/2013 3:30 PM FISHERIES SPECIALIST) Prothrombin time (PT) 10.7 9.0 - 12.0 seconds HISTORICAL RESULTS INR 1.02 0.90 - 1.20 HISTORIC AL RESULTS Comment: Interpretive Data Inpatient therapeutic ranges* Atrial fibrillation ?2.0-3.0 INR Venous thrombo-embolism ?2.0-3.0 INR Bioprosthetic heart valve ?* Mechanical heart valve, bileaflet or tilting disk,aortic position ? 2.0-3.0 INR All other,or bileaflet or tilting disk, in mitral position ? 2.5-3.5 INR *See the pharmacy resource directory (PHRED) for an updated copy of the Tool Book at [email or web address] Current Interpretive Data was last revised 2011. Plasma 05/02/2013 3:30 PM FISHERIES SPECIALIST Barrie Sood MD LAB BLOOD ORDERABLES Final Res ult Performing Organization Address [facility] de Phone Number HISTORICAL RESULTS * Serum magnesium (05/02/2013 3:30 PM FISHERIES SPECIALIST) Pathologist [facility] Magnesium 1.9 1.4 - 2.5 mg/dl HISTORICAL RESULTS Serum 05/02/2013 3:30 PM FISHERIES SPECIALIST Barrie Sood MD LAB BLOOD ORDERABLES Final Res ult Performing Organization Address [facility] de Phone Number HISTORICAL RESULTS * (ABNORMAL) Blood cell count (CBC) (05/02/2013 3:30 PM FISHERIES SPECIALIST) WBC 5.9 3.8 - 9.8 K/cumm HISTORICAL RESULTS RBC 3.85(L) 4.50 - 5.70 M/cumm HISTORICAL RESULTS Hgb 11.0(L) 13.8 - 17.2 g/dl HISTORICAL RESULTS Hct 32.7(L) 40.7 - 50.3 % HISTORICAL RESULTS MCV 85.0 80.0 - 97.6 fl HISTORICAL RESULTS MCH 28.6 26.7 - 33.7 pg HISTORICAL RESULTS MCHC 33.6 32.7 - 35.5 g/dl HISTORICAL RESULTS Rdw 15.9(H) 11.8 - 14.6 % HISTORICAL RESULTS Platelets 262 140 - 440 K/cumm HISTORICAL RESULTS MPV 6.9 6.8 - 10.4 fl HISTORICAL RESULTS Neutrophils 82.1(H) 38.7 - 74.5 % HISTORICAL RESULTS Lymphocytes 15.5(L) 20.0 - 54.3 % HISTORICAL RESULTS Monos 1.2(L) 4.3 - 13.5 % HISTORICAL RESULTS Eosinophils 1.0 0.0 - 6.0 % HISTORICAL RESULTS Basophils 0.2 0.0 - 3.0 % HISTORICAL RESULTS Neutrophils, abs 4.8 1.8 - 6.6 K/cumm HISTORICAL RESULTS Lymphocytes, abs 0.9(L) 1.2 - 3.3 K/cumm HISTORICAL RESULTS Monocytes, absolute 0.1(L) 0.2 - 1.2 K/cumm HISTORICAL RESULTS Eosinophils, abs 0.1 0.0 - 0.5 K/cumm HISTORICAL RESULTS Basophils, abs 0.0 0.0 - 0.2 K/cumm HISTORICAL RESULTS Blood specimen (specimen) 05/02/2013 3:30 PM FISHERIES SPECIALIST Barrie Sood MD LAB BLOOD ORDERABLES Final Res ult HISTORICAL RESULTS * Urinalysis (05/02/2013 9:28 AM FISHERIES SPECIALIST) Color, ur Yellow Yellow HISTORICAL RESULTS Clarity, ur Clear Clear HISTORIC AL RESULTS Specific gravity, ur 1.020 1.003 - 1.030 HISTORICAL RESULTS pH, ur 7.0 5.0 - 8.0 HISTORICAL RESULTS Protein, ur Negative Trace HISTORIC AL RESULTS Glucose, ur Negative Negative HISTORIC AL RESULTS Ketones, ur Negative Negative HISTORIC AL RESULTS Bilirubin, ur Negative Negative HISTOR ICAL RESULTS U Blood Negative Negative HISTORICAL RESULTS Urobilinogen, quant, ur 2.0 0.0 - 2.0 mg/dl HISTORICAL RESULTS Nitrites, ur Negative Negative HISTORI BAMBI RESULTS Leukocyte esterase, ur Negative Negative HISTORICAL RESULTS Urine 05/02/2013 9:28 AM FISHERIES SPECIALIST Result [facility] Issac Schneider MD LAB BLOOD ORDERABLES Final Result Performing Organization Address [facility] de Phone Number HISTORICAL RESULTS * Blood ABO, Rh, indirect ab screen (05/02/2013 8:31 AM FISHERIES SPECIALIST) ABO, Rho(D) B Positive HISTORI BAMBI RESULTS Osiel, indirect Negative HISTORICAL RESULTS Blood specimen (specimen) 05/02/2013 8:31 AM FISHERIES SPECIALIST Result [facility] Issac Schneider MD LAB BLOOD ORDERABLES Final Result Performing Organization Address [facility] de Phone Number HISTORICAL RESULTS * Surgical pathology (05/02/2013) Narrative 05/02/2013 Ordered by an unspecified provider. Result [facility] Historical Provider LAB PATHOLOGY ORDERABLES Final Result * ELECTROCARDIOGRAPHY (ECG) (05/02/2013) Narrative 05/02/2013 Ordered by an unspecified provider. Result [facility] Historical Provider ECG ORDERABLES Final Res ult * Blood ABO, Rh, indirect ab screen (05/01/2013 6:17 PM FISHERIES SPECIALIST) Osiel, indirect Negative HISTORICAL RESULTS ABO, Rho(D) B Positive HISTORI BAMBI RESULTS Blood specimen (specimen) 05/01/2013 6:17 PM FISHERIES SPECIALIST Result [facility] Christina Chan LAB BLOOD ORDERABLES Final Resul t Performing Organization Address [facility] Co de Phone Number HISTORICAL RESULTS documented in this encounter Visit Diagnoses Diagnosis Partial epilepsy with impairment of consciousness, 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
--- OUTSIDE RECORDS SUMMARY | 2024-05-24 02:11 | XMS_ITS | Encounter Summary ---
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
--- OUTSIDE RECORDS SUMMARY | 2024-05-24 02:11 | XMS_ITS | Encounter Summary ---
Author Organization [facility] Facility Care Team Providers Care Crane Crew Supervisor Name Role Phone Unavailable Primary Care Provider Unavailabl e Encounter Details Date Type Department Care Team (Late st Contact Info) Description 04/27/2008 - 04/27/2008 11:59 PM HARDENING MACHINE OPERATOR HELPER Hospital Encounter [facility] CLINCONV Patricia Arias Cerebral artery occlusion; Other specified disorder of nervous system Social History Tobacco Use Types Packs/Day Years Used Date Smoking Tobacco: Never Assessed Sex and Gender Information Value Date Recorded Sex Assigned at Not on file 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
--- OUTSIDE RECORDS SUMMARY | 2024-05-24 02:11 | XMS_ITS | Encounter Summary ---
Author Organization [facility] Facility Care Team Providers Care City Bus Driver Name Role Phone Unavailable Primary Care Provider Unavailabl e Encounter Details Date Type Department Care Team (Late st Contact Info) Description 05/01/2013 12:51 PM STYRENE DEHYDRATION REACTOR OPERATOR - 05/01/2013 4:30 PM STYRENE DEHYDRATION REACTOR OPERATOR Hospital En[facility] Sabillon MD [address] [place] [address] Social History Tobacco Use Types Packs/Day Years Used Date Smoking Tobacco: Former Sex and Gender Information Value Date Recorded Sex Assigned at Not on file 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 STYRENE DEHYDRATION REACTOR OPERATOR Gender Identity Not on file Sexual Orientation Not on file documented as of this encounter Medications at Time of Discharge cyanocobalamin/fo lic acid (vitamin M95-lraeu acid) 2,500-400 mcg tablet,disintegra ting 05/14/1969 naproxen [...] Associated Diagnosis Comments BLOOD GLUCOSE, POC Routine 05/01/2013 1: 08 PM STYRENE DEHYDRATION REACTOR OPERATOR SERUM VALPROIC ACID DRUG LEVEL Routine 05/01/2013 1:01 PM STYRENE DEHYDRATION REACTOR OPERATOR SERUM TROPONIN I Routine 05/01/2013 1:01 PM STYRENE DEHYDRATION REACTOR OPERATOR PLASMA PROTHROMBIN TIME (PT) Routine 05/01/2013 1:01 PM STYRENE DEHYDRATION REACTOR OPERATOR PLASMA PARTIAL THROMBOPLASTIN TIME (PTT) Routine 05/01/2013 1:01 PM STYRENE DEHYDRATION REACTOR OPERATOR PLASMA BASIC METABOLIC PANEL Routine 05/01/2013 1:01 PM STYRENE DEHYDRATION REACTOR OPERATOR BLOOD CELL COUNT (CBC) Routine 3 1:01 PM STYRENE DEHYDRATION REACTOR OPERATOR DISCHARGE LABORATORY CUMULATIVE REPORT Routine 05/01/2013 12:00 AM STYRENE DEHYDRATION REACTOR OPERATOR documented in this encounter Results * Blood glucose, POC (05/01/2013 1:08 PM STYRENE DEHYDRATION REACTOR OPERATOR) Glucose, POC, bld 125 70 - 199 mg/dl HISTORICAL RESULTS Blood specimen (specimen) 05/01/2013 1:08 PM STYRENE DEHYDRATION REACTOR OPERATOR us Historical Provider LAB BLOOD ORDERABLES Adeline l Result Performing Organization Address [facility] Co de Phone Number HISTORICAL RESULTS * Plasma partial thromboplastin time (PTT) (05/01/2013 1:01 PM STYRENE DEHYDRATION REACTOR OPERATOR) APTT 28.0 25.0 - 37.0 seconds HISTORICAL RESULTS Comment: Interpretive Data Therapeutic heparin range:60.0 - 94.0 sec based on correlation with therapeutic heparin activity range of 0.3 -0.7 Units/mL. Current interpretive data was last revised on 2011. Plasma 05/01/2013 1:01 PM STYRENE DEHYDRATION REACTOR OPERATOR us Clifton Gonsalez MD LAB BLOOD ORDERABLES Final Result Performing Organization Address [place]/[facility] Co de Phone Number HISTORICAL RESULTS * (ABNORMAL) Plasma basic metabolic panel (05/01/2013 1:01 PM STYRENE DEHYDRATION REACTOR OPERATOR) Sodium 138 135 - 145 mmol/L HISTORICAL RESULTS K, pl 3.6 3.3 - 4.9 mmol/L HISTORICAL RESULTS Chloride 109 97 - 110 mmol/L HISTORICAL RESULTS CO2 17(L) 22 - 32 mmol/L HISTORICAL RESULTS A. gap 12 0 - 16 mmol/L HISTORICAL RESULTS Glucose 115 70 - 199 mg/dl HISTORICAL RESULTS BUN 12 8 - 25 mg/dl HISTORICAL RESULTS Creatinine 0.74 0.70 - 1.30 mg/dl HISTORICAL RESULTS Calcium 8.8 8.6 - 10.3 mg/dl HISTORICAL RESULTS Plasma 05/01/2013 1:01 PM STYRENE DEHYDRATION REACTOR OPERATOR Clifton Gonsalez MD LAB BLOOD ORDERABLES Final Result Performing Organization Address [facility] de Phone Number HISTORICAL RESULTS * Serum troponin I (05/01/2013 1:01 PM STYRENE DEHYDRATION REACTOR OPERATOR) Troponin I <0.07 0.00 - 0.24 ng/ml HISTORICAL RESULTS Comment: Interpretive Data Normal Range: <0.07 ng/mL: Negative 0.07 - 0.24 ng/mL: Elevated, may be consistent with Myocardial Injury/Ischemia but is nondiagnostic and of equivocal significance. Consider obtaining additional Troponin values. (JAM Tatiana Cardiol 2000; 36:959. Circulation 2000; 102: 1193., 2002; 106: 1893., 2003: 108: 2543) Greater than or equal to 0.25 ng/mL: Positive Troponin, suggest establishing rising or falling pattern and evidence of Cardiac Ischemia for consideration of Myocardial Infarction. Current interpretive data was last revised on 2007. Serum 05/01/2013 1:01 PM STYRENE DEHYDRATION REACTOR OPERATOR Clifton Gonsalez MD LAB BLOOD ORDERABLES Final Result Performing Organization Address [facility] de Phone Number HISTORICAL RESULTS * Plasma prothrombin time (PT) (05/01/2013 1:01 PM STYRENE DEHYDRATION REACTOR OPERATOR) Prothrombin time (PT) 11.0 9.0 - 12.0 seconds HISTORICAL RESULTS INR 1.05 0.90 - 1.20 HISTORIC AL RESULTS Comment: Interpretive Data Inpatient therapeutic ranges* Atrial fibrillation ?2.0-3.0 INR Venous thrombo-embolism ?2.0-3.0 INR Bioprosthetic heart valve ?* Mechanical heart valve, bileaflet or tilting disk,aortic position ? 2.0-3.0 INR All other,or bileaflet or tilting disk, in mitral position ? 2.5-3.5 INR *See the pharmacy resource directory (PHRED) for an updated copy of the Tool Book at [email or web address] Current Interpretive Data was last revised 2011. Plasma 05/01/2013 1:01 PM STYRENE DEHYDRATION REACTOR OPERATOR Clifton Gonsalez MD LAB BLOOD ORDERABLES Final Result Performing Organization Address [facility] de Phone Number HISTORICAL RESULTS * (ABNORMAL) Serum valproic acid drug level (05/01/2013 1:01 PM STYRENE DEHYDRATION REACTOR OPERATOR) Valproic acid 45(L) 50 - 100 mcg/ml HISTORICAL RESULTS Comment: [...] data was last revised on 2001. Serum 05/01/2013 1:01 PM STYRENE DEHYDRATION REACTOR OPERATOR Clifton Gonsalez MD LAB BLOOD ORDERABLES Final Result Performing Organization Address [facility] de Phone Number HISTORICAL RESULTS * (ABNORMAL) Blood cell count (CBC) (05/01/2013 1:01 PM STYRENE DEHYDRATION REACTOR OPERATOR) WBC 7.1 3.8 - 9.8 K/cumm HISTORICAL RESULTS RBC 4.29(L) 4.50 - 5.70 M/cumm HISTORICAL RESULTS Hgb 12.2(L) 13.8 - 17.2 g/dl HISTORICAL RESULTS Hct 36.3(L) 40.7 - 50.3 % HISTORICAL RESULTS MCV 84.6 80.0 - 97.6 fl HISTORICAL RESULTS MCH 28.4 26.7 - 33.7 pg HISTORICAL RESULTS MCHC 33.6 32.7 - 35.5 g/dl HISTORICAL RESULTS Rdw 15.9(H) 11.8 - 14.6 % HISTORICAL RESULTS Platelets 265 140 - 440 K/cumm HISTORICAL RESULTS MPV 7.1 6.8 - 10.4 fl HISTORICAL RESULTS Neutrophils 48.0 38.7 - 74.5 % HISTORICAL RESULTS Lymphocytes 42.4 20.0 - 54.3 % HISTORICAL RESULTS Monos 5.1 4.3 - 13.5 % HISTORICAL RESULTS Eosinophils 4.2 0.0 - 6.0 % HISTORICAL RESULTS Basophils 0.3 0.0 - 3.0 % HISTORICAL RESULTS Neutrophils, abs 3.4 1.8 - 6.6 K/cumm HISTORICAL RESULTS Lymphocytes, abs 3.0 1.2 - 3.3 K/cumm HISTORICAL RESULTS Monocytes, absolute 0.4 0.2 - 1.2 K/cumm HISTORICAL RESULTS Eosinophils, abs 0.3 0.0 - 0.5 K/cumm HISTORICAL RESULTS Basophils, abs 0.0 0.0 - 0.2 K/cumm HISTORICAL RESULTS Blood specimen (specimen) 05/01/2013 1:01 PM STYRENE DEHYDRATION REACTOR OPERATOR us Clifton Gonsalez MD LAB BLOOD ORDERABLES Final Result HISTORICAL RESULTS * Discharge Laboratory Cumulative Report (05/01/2013 12:00 AM STYRENE DEHYDRATION REACTOR OPERATOR) 05/01/2013 Narrative HISTORICAL RESULTS - 05/01/2013 7:16 PM STYRENE DEHYDRATION REACTOR OPERATOR ?[facility] ?Department of Laboratories ? [address] [facility] [place] ? [place] [id number] Patient Name: ??TAMMY REJI Barrientos Rec Number: [id number] Fin Number: ?[id number] Date: ?1965 Sex/Age: ? Male 48 years Admit Date: ?05/01/2013 Discharge Date: 05/01/2013 Doctor: ?Clifton Mckeon Facility: ?[facility] Location: ?[id number] Chart Printed: 05/01/2013 19:16 ?? * Abnormal ?? C Critical ?? f Footnote ?? ^ Corrected ?? L Low ?? H High ? i Interp Data ?? @ Reference Lab ?Chart Type:Cumulative ? SELECTED ELECTROLYTES ?Test: Sodium ? Plasma Potassium ??Chloride ? Reference: [135-145] ??[3.3-4.9] ? [97-110] ? Units: mmol/L ? mmol/L ?mmol/L 05/01/2013 ?? 13:01:41 ?? 138 ?3.6 ? 109 ?Test: Total CO2 ??Anion Gap ? Reference: [22-32] ?[0-16] ? Units: mmol/L ? mmol/L 05/01/2013 ?? 13:01:41 ?? 17 ??L ?12 ? STANDARD BLOOD CHEMISTRY ?Test: BUN ? Creatinine ?? Glucose ?? Total Calcium ? Reference: [8-25] ??[0.70-1.30] ??[70-199] ??[8.6-10.3] ? Units: mg/dL ?? mg/dL ?mg/dL ? mg/dL 05/01/2013 ?? 13:01:41 ?? 12 ?0.74 ? 115 ? 8.8 ? CARDIAC PROTEINS ?Test: Troponin I i ? Reference: [0.00-0.24] ? Units: ng/mL 05/01/2013 ?? 13:01:41 ?? <0.07 ? CARDIAC PROTEINS 05/01/2013 13:01:41 Troponin I: Interpretive Data Normal Range: <0.07 ng/mL: Negative 0.07 - 0.24 ng/mL: Elevated, may be consistent with Myocardial Injury/Ischemia but is nondiagnostic and of equivocal significance. Consider obtaining additional Troponin values. (JAM Tatiana Cardiol 2000; 36:959. Circulation 2000; 102: 1193., 2002; 106: 1893., 2003: 108: 2543) Greater than or equal to 0.25 ng/mL: Positive Troponin, suggest establishing rising or falling pattern and evidence of Cardiac Ischemia for consideration of Myocardial Infarction. Current interpretive data was last revised on 2007. ?DRUG LEVELS ?Test: Valproic Acid i ? Reference: [50.0-100.0] ? Units: mcg/mL 05/01/2013 ?? 13:01:00 ?? 45.3 ??L 05/01/2013 13:01:00 Valproic Acid: Interpretive Data Effective level to [...] ? Units: K/cumm ? M/cumm ? g/dL 05/01/2013 ?? 13:01:41 ?? 7.1 ?4.29 ??L ?12.2 ??L ?Test: Hct ?Platelet Ct ??MCV ? Reference: [40.7-50.3] ??[140-440] ?[80.0-97.6] ? Units: % ?K/cumm ? fL 05/01/2013 ?? 13:01:41 ?? 36.3 ??L ?265 ?84.6 ?Test: MCH ?MCHC ? RDW ? Reference: [26.7-33.7] ??[32.7-35.5] ??[11.8-14.6] ? Units: pg ? g/dL ? % 05/01/2013 ?? 13:01:41 ?? 28.4 ? 33.6 ? 15.9 ??H ? COMPLETE BLOOD COUNT ?Test: MPV ? Reference: [6.8-10.4] ? Units: fL 05/01/2013 ?? 13:01:41 ?? 7.1 ? AUTOMATED WHITE CELL DIFFERENTIAL ?Test: Neut Pct Auto ??Lymph Pct Auto ??[place] Pct Auto ? Reference: [38.7-74.5] ?[20.0-54.3] ? [4.3-13.5] ? Units: % ?% ? % 05/01/2013 ?? 13:01:41 ?? 48.0 ? 42.4 ?5.1 ?Test: Eos Pct Auto ??Baso Pct Auto ??Neut Abs Auto ? Reference: [0.0-6.0] ? [0.0-3.0] ?[1.8-6.6] ? Units: % ? % ?K/cumm 05/01/2013 ?? 13:01:41 ?? 4.2 ? 0.3 ?3.4 ?Test: Lymph Abs Auto ??[place] Abs Auto ??Eos Abs Auto ? Reference: [1.2-3.3] ? [0.2-1.2] ?[0.0-0.5] ? Units: K/cumm ?K/cumm ? K/cumm 05/01/2013 ?? 13:01:41 ?? 3.0 ? 0.4 ?0.3 ?Test: Baso Abs Auto ? Reference: [0.0-0.2] ? Units: K/cumm 05/01/2013 ?? 13:01:41 ?? 0.0 ? HEMOSTASIS AND THROMBOSIS ?Routine Coagulation Studies ?Test: PT ?INR i ?aPTT i ? Reference: [9.0-12.0] ??[0.90-1.20] ??[25.0-37.0] ? Units: sec ?sec 05/01/2013 ?? 13:01:41 ?? 11.0 ?1.05 ? 28.0 05/01/2013 13:01:41 INR: Interpretive Data Inpatient therapeutic ranges* Atrial fibrillation ?2.0-3.0 INR Venous thrombo-embolism ?2.0-3.0 INR Bioprosthetic heart valve ?* Mechanical heart valve, bileaflet or tilting disk,aortic position ? 2.0-3.0 INR All other,or bileaflet or tilting disk, in mitral position ? 2.5-3.5 INR *See the pharmacy resource directory (PHRED) for an updated copy of the Tool Book at [email or web address] Current Interpretive Data was last revised 2011. ? HEMOSTASIS AND THROMBOSIS ?Routine Coagulation Studies 05/01/2013 13:01:41 aPTT: Interpretive Data Therapeutic heparin range:60.0 - 94.0 sec based on correlation with therapeutic heparin activity range of 0.3 -0.7 Units/mL. Current interpretive data was last revised on 2011. ?POINT OF CARE TESTS ? Chemistry ?Test: Glucose POC ? Reference: [70-199] ? Units: mg/dL 05/01/2013 ?? 13:08:00 ?? 125 us Historical Provider MD LAB BLOOD ORDERABLES Adeline miller Result HISTORICAL RESULTS documented in this encounter Visit Diagnoses Not on filedocumented in this encounter
--- OUTSIDE RECORDS SUMMARY | 2024-05-24 02:11 | XMS_ITS | Encounter Summary ---
Author Organization [facility] Facility Care Team Providers Care Lamination Assembler Name Role Phone Unavailable Primary Care Provider Unavailabl e Encounter Details Date Type Department Care Team (Late st Contact Info) Description 05/21/2013 1:54 PM RETAIL MANAGER IN TRAINING - 05/21/2013 7:21 PM RETAIL MANAGER IN TRAINING Hospital Encounter [facility] Sanjiv Osborne MD [address] [place] [address] Epilepsy (HCC); Abdominal tenderness; Asthma; Essential hypertension; Pure hypercholesterolemia ; Anxiety state; Nonpsychotic mental disorder; Encounter for long-term (current) use of other medications Social History Tobacco Use Types Packs/Day Years Used Date Smoking Tobacco: Former Sex and Gender Information Value Date Recorded Sex Assigned at Not on file 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 RETAIL MANAGER IN TRAINING Gender Identity Not on file Sexual Orientation Not on file documented as of this encounter Medications at Time of Discharge cyanocobalamin/fo lic acid (vitamin X07-mgikc acid) 2,500-400 mcg tablet,disintegra ting 05/14/1969 naproxen sodium 220 mg capsule ALEVE CAPSULE 05/14/1969 divalproex ER (DEPAKOTE ER) 500 mg 24 hr tablet TAKE 2 TABS QAM, 1 TAB AT NOON, AND 2 TABS QPM 02/11/2013 02/13/2018 documented as of this encounter Plan of Treatment Not on file documented as of this encounter Procedures Procedure Name Priority Date/Time Associated Diagnosis Comments CT ABDOMEN PELVIS W CONTRAST Routine 05/21/2013 5:09 PM RETAIL MANAGER IN TRAINING CT HEAD WO CONTRAST Routine 05/21/2013 5 :09 PM RETAIL MANAGER IN TRAINING XR CHEST PA LATERAL 2 VIEWS Routine 05/21/2013 4:50 PM RETAIL MANAGER IN TRAINING URINALYSIS Routine 05/21/2013 4:47 PM RETAIL MANAGER IN TRAINING BLOOD CELL COUNT (CBC) Routine 05/21/2013 4:19 PM RETAIL MANAGER IN TRAINING SERUM VALPROIC ACID DRUG LEVEL Routine 05/21/2013 3:48 PM RETAIL MANAGER IN TRAINING BLOOD GLUCOSE, POC Routine 05/21/2013 3: 29 PM RETAIL MANAGER IN TRAINING SERUM TROPONIN I Routine 05/21/2013 3:00 PM RETAIL MANAGER IN TRAINING SERUM LIPASE Routine 05/21/2013 3:00 PM RETAIL MANAGER IN TRAINING PLASMA HEPATIC FUNCTION PANEL Routine 05/21/2013 3:00 PM RETAIL MANAGER IN TRAINING PLASMA BASIC METABOLIC PANEL Routine 05/21/2013 3:00 PM RETAIL MANAGER IN TRAINING DISCHARGE LABORATORY CUMULATIVE REPORT Routine 05/21/2013 12:00 AM RETAIL MANAGER IN TRAINING documented in this encounter Results * CT Head WO Contrast (05/21/2013 5:09 PM RETAIL MANAGER IN TRAINING) Anatomical Region Laterality Modality Head and Neck N/A Computed Tomogra phy 05/21/2013 5:09 PM RETAIL MANAGER IN TRAINING Narrative 05/22/2013 11:22 AM RETAIL MANAGER IN TRAINING NESSA LUTZ M.D. TALON MAYORGA, FINAL REPORT The radiology attending physician has personally reviewed this study, and has reviewed and/or edited this written report and agrees with it. ACC# ??Date Time ??Exam [id number] May 21, 2013 17:09:[id number] Head or Brain w/o cont ACC# ??Date Time ??Exam [id number] May 21, 2013 17:09:[id number] Head or Brain w/o cont EXAMINATION: ?? 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 TECHNIQUE: Noncontrast CT of the brain was performed with axial images acquired from skull base to vertex. COMPARISON: None available. FINDINGS: There are post surgical changes from right temporal craniotomy with right temporal lobectomy, hippocampal and amygdala resection. There is a small amount of extra-axial high attenuation in surgical bed consistent with blood products from the recent surgery. No midline shift. The ventricles are normal in size, shape and morphology. The driver-white matter differentiation is normal. The visualized portions of the orbits and paranasal sinuses are normal. There is fluid in the right mastoid air cells. No fractures are identified. ?? IMPRESSION: ?? 1. Postsurgical changes from right temporal lobectomy with resection of the hippocampus and amygdala. ?? Requested By: TONIO MCKEON ??M.D. Dictated By: ?? TALON MAYORGA, ?? on May ??2013 ??5:23P This document has been electronically signed by: NESSA LUTZ M.D. on May ??2013 11:22A Procedure Note Provider, MD Kareem - 09/13/2016 NESSA LUTZ M.D. TALON MAYORGA, FINAL REPORT The radiology attending physician has personally reviewed this study, and has reviewed and/or edited this written report and agrees with it. 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 TECHNIQUE: Noncontrast CT of the brain was performed with axial images acquired from skull base to vertex. COMPARISON: None available. FINDINGS: There are post surgical changes from right temporal craniotomy with right temporal lobectomy, hippocampal and amygdala resection. There is a small amount of extra-axial high attenuation in surgical bed consistent with blood products from the recent surgery. No midline shift. The ventricles are normal in size, shape and morphology. The driver-white matter differentiation is normal. The visualized portions of the orbits and paranasal sinuses are normal. There is fluid in the right mastoid air cells. No fractures are identified. IMPRESSION: 1. Postsurgical changes from right temporal lobectomy with resection of the hippocampus and amygdala. Requested By: TONIO MCKEON M.D. Dictated By: TALON MAYORGA on May 21 2013 5:23P This document has been electronically signed by: NESSA LUTZ M.D. on May 22 2013 11:22A us Historical Provider IMDena CT PROCEDURES Final R esult * CT Abdomen Pelvis W Contrast (05/21/2013 5:09 PM RETAIL MANAGER IN TRAINING) Anatomical Region Laterality Modality Body N/A Computed Tomogra phy 05/21/2013 5:09 PM RETAIL MANAGER IN TRAINING Narrative 05/21/2013 5:40 PM RETAIL MANAGER IN TRAINING IRMA LIPSCOMB M.D. TALON MAYORGA, FINAL REPORT The radiology attending physician has personally reviewed this study, and has reviewed and/or edited this written report and agrees with it. ACC# ??Date Time ??Exam [id number] May 21, 2013 17:09:[id number] Abd & Pelvis with cont EXAMINATION: ?CT OF THE ABDOMEN AND PELVIS with INTRAVENOUS ??CONTRAST. HISTORY: ??Lower abdominal pain, right temporal lobectomy on 05/02/2013. TECHNIQUE: Transaxial computed tomographic images of the abdomen and pelvis were obtained with intravenous contrast according to the standard protocol. ??Optiray 350, 94 mL. No immediate complications following contrast administration. FINDINGS: ??No comparisons available. Chest: Limited images of the lung bases are clear without pericardial or pleural effusion. Abdomen/pelvis: There is diffuse hepatic steatosis. No focal liver lesions or liver surface nodularity. The gallbladder, pancreas, spleen, adrenal glands and kidneys are normal. No bowel thickening or evidence of obstruction. The appendix is normal. No free pelvic fluid. No abdominal/pelvic lymphadenopathy. The bladder is normal. Bone windows demonstrate no suspicious lytic or blastic lesions. There are several small Schmorl's nodes the largest of which is in the superior plate of L4. ?? IMPRESSION: 1. No radiographic exhalation for the patient's abdominal pain. 2. Hepatic steatosis. ?? Requested By: TONIO MCKEON ??Fan. Dictated By: ?? TALON MAYORGA, ?? on May ??2013 ??5:40P This document has been electronically signed by: IRMA LIPSCOMB M.D. on May?2013 ??5:40P Procedure Note Provider, MD Kareem - 09/13/2016 IRMA LIPSCOMB M.D. TALON MAYORGA, FINAL REPORT The radiology attending physician has personally reviewed this study, and has reviewed and/or edited this written report and agrees with it. ACC# Date Time Exam [id number] May 21, 2013 17:09:[id number] Abd & Pelvis with cont EXAMINATION: CT OF THE ABDOMEN AND PELVIS with INTRAVENOUS CONTRAST. HISTORY: Lower abdominal pain, right temporal lobectomy on 05/02/2013. TECHNIQUE: Transaxial computed tomographic images of the abdomen and pelvis were obtained with intravenous contrast according to the standard protocol. Optiray 350, 94 mL. No immediate complications following contrast administration. FINDINGS: No comparisons available. Chest: Limited images of the lung bases are clear without pericardial or pleural effusion. Abdomen/pelvis: There is diffuse hepatic steatosis. No focal liver lesions or liver surface nodularity. The gallbladder, pancreas, spleen, adrenal glands and kidneys are normal. No bowel thickening or evidence of obstruction. The appendix is normal. No free pelvic fluid. No abdominal/pelvic lymphadenopathy. The bladder is normal. Bone windows demonstrate no suspicious lytic or blastic lesions. There are several small Schmorl's nodes the largest of which is in the superior plate of L4. IMPRESSION: 1. No radiographic exhalation for the patient's abdominal pain. 2. Hepatic steatosis. Requested By: TONIO MCKEON M.D. Dictated By: TALON MAYORGA, on May 21 2013 5:40P This document has been electronically signed by: IRMA LIPSCOMB M.D. on May 21 2013 5:40P Historical Provider MD BERGMAN CT PROCEDURES Final R esult * XR Chest Pa Lateral 2 Views (05/21/2013 4:50 PM RETAIL MANAGER IN TRAINING) Anatomical Region Laterality Modality Body, Chest N/A Radiographic Kayley ging 05/21/2013 4:50 PM RETAIL MANAGER IN TRAINING Narrative 05/21/2013 5:12 PM RETAIL MANAGER IN TRAINING Almaz VOSS M.D. FINAL REPORT The radiology attending physician has personally reviewed this study, and has reviewed and/or edited this written report and agrees with it. ACC# ??Date Time ??Exam [id number] May 21, 2013 16:50:00 [id number] Chest 2 views Frontl & Lat EXAMINATION: ?? Chest 2 views ?? IMPRESSION: ?Comparison is made to prior examination dated 03/13/2013. Lungs are clear with no focal consolidation, pleural effusion or pneumothorax. Cardiomediastinal silhouette is normal. ?? Requested By: AIDAN SHRESTHA M.D. Dictated By: ?? LESLIE LUCIO M.D. ??on May ??2013 ??5:01P This document has been electronically signed by: MEET GREENFIELD M.D. on May ??2013 ??5:12P Procedure Note Provider, Historical, - 10/19/2016 MEET GREENFIELD M.D. LESLIE LUCIO M.D. FINAL REPORT The radiology attending physician has personally reviewed this study, and has reviewed and/or edited this written report and agrees with it. ACC# Date Time Exam [id number] May 21, 2013 16:50:00 [id number] Chest 2 views Frontl & Lat EXAMINATION: Chest 2 views IMPRESSION: Comparison is made to prior examination dated 03/13/2013. Lungs are clear with no focal consolidation, pleural effusion or pneumothorax. Cardiomediastinal silhouette is normal. Requested By: AIDAN SHRESTHA M.D. Dictated By: LESLIE LUCIO M.D. on May 21 2013 5:01P This document has been electronically signed by: MEET GREENFIELD M.D. on May 21 2013 5:12P us Historical Provider MD IMG XR PROCEDURES Final R esult * Urinalysis (05/21/2013 4:47 PM RETAIL MANAGER IN TRAINING) Color, ur Light-Yellow Yellow HISTORI BAMBI RESULTS Clarity, ur Clear Clear HISTORIC AL RESULTS Specific gravity, ur 1.008 1.003 - 1.030 HISTORICAL RESULTS pH, ur [...] esterase, ur Negative Negative HISTORICAL RESULTS Urine 05/21/2013 4:47 PM RETAIL MANAGER IN TRAINING Aidan Shrestha MD LAB BLOOD ORDERABLES Adeline l Result HISTORICAL RESULTS * (ABNORMAL) Blood cell count (CBC) (05/21/2013 4:19 PM RETAIL MANAGER IN TRAINING) WBC 8.2 3.8 - 9.8 K/cumm HISTORICAL RESULTS RBC 4.32(L) 4.50 - 5.70 M/cumm HISTORICAL RESULTS Hgb 12.1(L) 13.8 - 17.2 g/dl HISTORICAL RESULTS Hct 36.2(L) 40.7 - 50.3 % HISTORICAL RESULTS MCV 83.8 80.0 - 97.6 fl HISTORICAL RESULTS MCH 27.9 26.7 - 33.7 pg HISTORICAL RESULTS MCHC 33.3 32.7 - 35.5 g/dl HISTORICAL RESULTS Rdw 14.9(H) 11.8 - 14.6 % HISTORICAL RESULTS Platelets 314 140 - 440 K/cumm HISTORICAL RESULTS MPV 7.6 6.8 - 10.4 fl HISTORICAL RESULTS Neutrophils 51.9 38.7 - 74.5 % HISTORICAL RESULTS Lymphocytes 36.1 20.0 - 54.3 % HISTORICAL RESULTS Monos 8.2 4.3 - 13.5 % HISTORICAL RESULTS Eosinophils 3.6 0.0 - 6.0 % HISTORICAL RESULTS Basophils 0.2 0.0 - 3.0 % HISTORICAL RESULTS Neutrophils, abs 4.3 1.8 - 6.6 K/cumm HISTORICAL RESULTS Lymphocytes, abs 3.0 1.2 - 3.3 K/cumm HISTORICAL RESULTS Monocytes, absolute 0.7 0.2 - 1.2 K/cumm HISTORICAL RESULTS Eosinophils, abs 0.3 0.0 - 0.5 K/cumm HISTORICAL RESULTS Basophils, abs 0.0 0.0 - 0.2 K/cumm HISTORICAL RESULTS Blood specimen (specimen) 05/21/2013 4:19 PM RETAIL MANAGER IN TRAINING Aidan Shrestha MD LAB BLOOD ORDERABLES Adeline l Result Performing Organization Address [facility] de Phone Number HISTORICAL RESULTS * (ABNORMAL) Serum valproic acid drug level (05/21/2013 3:48 PM RETAIL MANAGER IN TRAINING) Valproic acid 43(L) 50 - 100 mcg/ml HISTORICAL RESULTS Comment: [...] data was last revised on 2001. Serum 05/21/2013 3:48 PM RETAIL MANAGER IN TRAINING Aidan Shrestha MD LAB BLOOD ORDERABLES Adeline l Result Performing Organization Address [facility] de Phone Number HISTORICAL RESULTS * Blood glucose, POC (05/21/2013 3:29 PM RETAIL MANAGER IN TRAINING) Glucose, POC, bld 80 70 - 199 mg/dl HISTORICAL RESULTS Blood specimen (specimen) 05/21/2013 3:29 PM RETAIL MANAGER IN TRAINING [facility] LAB BLOOD ORDERABLES Adeline l Result Performing Organization Address City/[facility] Co de Phone Number HISTORICAL RESULTS * (ABNORMAL) Plasma hepatic function panel (05/21/2013 3:00 PM RETAIL MANAGER IN TRAINING) Pathologist [facility] [place] Protein, pl 7.1 6.5 - 8.5 g/dl HISTORICAL RESULTS Alb 4.0 3.6 - 5.0 g/dl HISTORICAL RESULTS Bilirubin 0.2(L) 0.3 - 1.1 mg/dl HISTORICAL RESULTS Bilirubin, direct 0.1 0.0 - 0.3 mg/dl HISTORICAL RESULTS Alk phos 101 38 - 126 Units/L HISTORICAL RESULTS AST 45 11 - 47 Units/L HISTORICAL RESULTS ALT 49 7 - 53 Units/L HISTORICAL RESULTS Plasma 05/21/2013 3:00 PM RETAIL MANAGER IN TRAINING us Aidan Shrestha MD LAB BLOOD ORDERABLES Adeline l Result Performing Organization Address [facility] de Phone Number HISTORICAL RESULTS * Serum lipase (05/21/2013 3:00 PM RETAIL MANAGER IN TRAINING) Pathologist [facility] [place] Lip 55 0 - 99 Units/L HISTORICAL RESULTS Serum 05/21/2013 3:00 PM RETAIL MANAGER IN TRAINING us Aidan Shrestha MD LAB BLOOD ORDERABLES Adeline l Result Performing Organization Address [facility] de Phone Number HISTORICAL RESULTS * Serum troponin I (05/21/2013 3:00 PM RETAIL MANAGER IN TRAINING) Pathologist [facility] [place] Troponin I <0.03 0.00 - 0.03 ng/ml HISTORICAL RESULTS Comment: Interpretive Data Serial determinations are recommended for the diagnosis of myocardial infarction (Third [place] Definition of Myocardial Infarction. ??J Am Tatiana Cardiol 2012;60:1581-98). Current interpretive data was last revised on 13. Serum 05/21/2013 3:00 PM RETAIL MANAGER IN TRAINING us Aidan Shrestha MD LAB BLOOD ORDERABLES Adeline l Result Performing Organization Address [facility] de Phone Number HISTORICAL RESULTS * (ABNORMAL) Plasma basic metabolic panel (05/21/2013 3:00 PM RETAIL MANAGER IN TRAINING) Pathologist [facility] [place] Sodium 141 135 - 145 mmol/L HISTORICAL RESULTS K, pl 4.4 3.3 - 4.9 mmol/L HISTORICAL RESULTS Chloride 108 97 - 110 mmol/L HISTORICAL RESULTS CO2 20(L) 22 - 32 mmol/L HISTORICAL RESULTS A. gap 13 0 - 16 mmol/L HISTORICAL RESULTS Glucose 76 70 - 199 mg/dl HISTORICAL RESULTS BUN 10 8 - 25 mg/dl HISTORICAL RESULTS Creatinine 0.65(L) 0.70 - 1.30 mg/dl HISTORICAL RESULTS Calcium 9.4 8.6 - 10.3 mg/dl HISTORICAL RESULTS Plasma 05/21/2013 3:00 PM RETAIL MANAGER IN TRAINING us Aidan Shrestha MD LAB BLOOD ORDERABLES Adeline miller Result HISTORICAL RESULTS * Discharge Laboratory Cumulative Report (05/21/2013 12:00 AM RETAIL MANAGER IN TRAINING) 05/21/2013 Narrative HISTORICAL RESULTS - 05/22/2013 3:16 AM RETAIL MANAGER IN TRAINING ?[facility] ?Department of Laboratories ? [address] [facility] [address] ? [place] [address] Patient Name: ??REJI BRANCH Med Rec Number: [id number] Fin Number: ?[id number] Date: ?1965 Sex/Age: ? Male 48 years Admit Date: ?05/21/2013 Discharge Date: 05/21/2013 Doctor: ?Sanjiv Osborne Facility: ?[facility] Location: ?EM-23 Chart Printed: 05/22/2013 03:16 ?? * Abnormal ?? C Critical ?? f Footnote ?? ^ Corrected ?? L Low ?? H High ? i Interp Data ?? @ Reference Lab ?Chart Type:Cumulative ? SELECTED ELECTROLYTES ?Test: Sodium ? Plasma Potassium ??Chloride ? Reference: [135-145] ??[3.3-4.9] ? [97-110] ? Units: mmol/L ? mmol/L ?mmol/L 05/21/2013 ?? 15:00:41 ?? 141 ?4.4 ? 108 ?Test: Total CO2 ??Anion Gap ? Reference: [22-32] ?[0-16] ? Units: mmol/L ? mmol/L 05/21/2013 ?? 15:00:41 ?? 20 ??L ?13 ? STANDARD BLOOD CHEMISTRY ?Test: BUN ? Creatinine ?? Total Bilirubin ? Reference: [8-25] ??[0.70-1.30] ??[0.3-1.1] ? Units: mg/dL ?? mg/dL ?mg/dL 05/21/2013 ?? 15:00:41 ?? 10 ?0.65 ??L 05/21/2013 ?? 15:00:20 ?0.2 ??L ?Test: Bilirubin, Direct ??Glucose ?? Total Calcium ? Reference: [0.0-0.3] ?[70-199] ??[8.6-10.3] ? Units: mg/dL ?mg/dL ? mg/dL 05/21/2013 ?? 15:00:41 ?76 ?9.4 05/21/2013 ?? 15:00:20 ?? 0.1 ?Test: Plasma Total Protein ??Albumin ? Reference: [6.5-8.5] ? [3.6-5.0] ? Units: g/dL ?g/dL 05/21/2013 ?? 15:00:20 ?? 7.1 ? 4.0 ?ENZYMES ?Test: Alkaline Phosphatase ??ALT ?AST ? Reference: [38-126] ?[7-53] ?? [11-47] ? Units: Units/L ? Units/L ??Units/L 05/21/2013 ?? 15:00:20 ?? 101 ? 49 ? 45 ?Test: Lipase ? Reference: [0-99] ? Units: Units/L 05/21/2013 ?? 15:00:20 ?? 55 ? CARDIAC PROTEINS ?Test: Troponin I i ? Reference: [0.00-0.03] ? Units: ng/mL 05/21/2013 ?? 15:00:32 ?? <0.03 05/21/2013 15:00:32 Troponin I: Interpretive Data Serial determinations are recommended for the diagnosis of myocardial infarction (Third [place] Definition of Myocardial Infarction. ??J Am Tatiana Cardiol 2012;60:1581-98). Current interpretive data was last revised on 13. ?DRUG LEVELS ?Test: Valproic Acid i ? Reference: [50.0-100.0] ? Units: mcg/mL 05/21/2013 ?? 15:48:00 ?? 42.8 ??L 05/21/2013 15:48:00 Valproic Acid: Interpretive Data Effective level to [...] interpretative data was last revised on 2001. ?URINALYSIS ?Macroscopic ?Test: Color ? Clarity ??Specific Carrier ? Reference: [Yellow] ?[Clear] ??[1.003-1.030] ? Units: 05/21/2013 ?? 16:47:00 ?? Light-Yellow ??Clear ?1.008 ?Test: pH ? Albumin ?? Glucose ? Ketones ? Reference: [5.0-8.0] ??[Trace] ?? [Negative] ??[Negative] ? Units: 05/21/2013 ?? 16:47:00 ?? 7.0 ?Negative ??Negative ?Negative ?Test: Bilirubin ?? Blood ? Urobilinogen ? Reference: [Negative] ??[Negative] ??[0.0-2.0] ? Units: ? mg/dL 05/21/2013 ?? 16:47:00 ?? Negative ?Negative ?<2.0 ?Test: Nitrite ? Leuk Esterase ? Reference: [Negative] ??[Negative] ? Units: 05/21/2013 ?? 16:47:00 ?? Negative ?Negative ? COMPLETE BLOOD COUNT ?Test: WBC ?RBC ?Hgb ? Reference: [3.8-9.8] ??[4.50-5.70] ??[13.8-17.2] ? Units: K/cumm ? M/cumm ? g/dL 05/21/2013 ?? 16:19:48 ?? 8.2 ?4.32 ??L ?12.1 ??L ?Test: Hct ?Platelet Ct ??MCV ? Reference: [40.7-50.3] ??[140-440] ?[80.0-97.6] ? Units: % ?K/cumm ? fL 05/21/2013 ?? 16:19:48 ?? 36.2 ??L ?314 ?83.8 ?Test: MCH ?MCHC ? RDW ? Reference: [26.7-33.7] ??[32.7-35.5] ??[11.8-14.6] ? Units: pg ? g/dL ? % 05/21/2013 ?? 16:19:48 ?? 27.9 ? 33.3 ? 14.9 ??H ?Test: MPV ? Reference: [6.8-10.4] ? Units: fL 05/21/2013 ?? 16:19:48 ?? 7.6 ? AUTOMATED WHITE CELL DIFFERENTIAL ?Test: Neut Pct Auto ??Lymph Pct Auto ??Oktibbeha Pct Auto ? Reference: [38.7-74.5] ?[20.0-54.3] ? [4.3-13.5] ? Units: % ?% ? % 05/21/2013 ?? 16:19:48 ?? 51.9 ? 36.1 ?8.2 ?Test: Eos Pct Auto ??Baso Pct Auto ??Neut Abs Auto ? Reference: [0.0-6.0] ? [0.0-3.0] ?[1.8-6.6] ? Units: % ? % ?K/cumm 05/21/2013 ?? 16:19:48 ?? 3.6 ? 0.2 ?4.3 ?Test: Lymph Abs Auto ??Okt[place]beha Abs Auto ??Eos Abs Auto ? Reference: [1.2-3.3] ? [0.2-1.2] ?[0.0-0.5] ? Units: K/cumm ?K/cumm ? K/cumm 05/21/2013 ?? 16:19:48 ?? 3.0 ? 0.7 ?0.3 ?Test: Baso Abs Auto ? Reference: [0.0-0.2] ? Units: K/cumm 05/21/2013 ?? 16:19:48 ?? 0.0 ?POINT OF CARE TESTS ? Chemistry ?Test: Glucose POC ? Reference: [70-199] ? Units: mg/dL 05/21/2013 ?? 15:29:00 ?? 80 ? CANCELLED TESTS Date ?Time ?Test ??Cancel Reason 05/21/2013 ??15:00:34 ??CBC ?? NCHG Clotted us Historical Provider LAB BLOOD ORDERABLES Adeline l Result Performing Organization Address City/State/[facility] Co de Phone Number HISTORICAL RESULTS documented in this encounter Visit Diagnoses Diagnosis Epilepsy (HCC) Unspecified epilepsy without mention of intractable epilepsy Abdominal tenderness Asthma Unspecified asthma Essential hypertension Unspecified essential hypertension Pure hypercholesterolemia Anxiety state Anxiety state, unspecified Nonpsychotic mental disorder Unspecified nonpsychotic mental disorder Encounter for long-term (current) use of other medications documented in this encounter
--- OUTSIDE RECORDS SUMMARY | 2024-05-24 02:11 | XMS_ITS | Encounter Summary ---
Author Organization [facility] Facility Care Team Providers Care Lead Installer Name Role Phone Unavailable Primary Care Provider Unavailabl e Encounter Details Date Type Department Care Team (Late st Contact Info) Description 05/08/2013 - 05/13/2013 11:59 PM NUTRITIONAL CHEMIST Hospital Encounter [facility] Social History Tobacco Use Types Packs/Day Years Used Date Smoking Tobacco: Former Sex and Gender Information Value Date Recorded Sex Assigned at Not on file 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 NUTRITIONAL CHEMIST Gender Identity Not on file Sexual Orientation Not on file documented as of this encounter Medications at Time of Discharge cyanocobalamin/fo lic acid (vitamin [id number]) 2,500-400 mcg tablet,disintegra ting 05/14/1969 naproxen [...] Diagnosis Comments DISCHARGE LABORATORY CUMULATIVE REPORT Routine 05/12/2013 5:18 PM NUTRITIONAL CHEMIST SERUM GLUCOSE, FASTING Routine 3 5:15 AM NUTRITIONAL CHEMIST PLASMA COMPREHENSIVE METABOLIC PANEL Routine 05/12/2013 5:15 AM NUTRITIONAL CHEMIST BLOOD CELL COUNT (CBC) Routine 3 5:15 AM NUTRITIONAL CHEMIST SERUM GLUCOSE Routine 05/08/2013 6:00 AM NUTRITIONAL CHEMIST PLASMA COMPREHENSIVE METABOLIC PANEL Routine 05/08/2013 6:00 AM NUTRITIONAL CHEMIST BLOOD CELL COUNT (CBC) Routine 3 6:00 AM NUTRITIONAL CHEMIST documented in this encounter Results * Discharge Laboratory Cumulative Report (05/12/2013 5:18 PM NUTRITIONAL CHEMIST) 05/12/2013 5:18 PM NUTRITIONAL CHEMIST Narrative HISTORICAL RESULTS - 05/12/2013 5:18 PM NUTRITIONAL CHEMIST ? [facility] ? [facility] Laboratories [facility] [address] [facility] ?[place] [facility] [place] ?[address] ?[place] [address] Patient Name: ? REJI BRANCH Rec Number: ?? [id number] Date of : ?1965 Gender/Age: ? Male 48 years Doctor: ? Júnior Ramos Report Date/Time: 05/12/2013 17:18 ?* Abnormal ??C Critical ??f Footnote ??^ Corrected ??L Low ??H High ?i Interp Data ??@ Reference Lab ?Chart Type: Cumulative ? CHEMISTRY ? Standard Blood Chemistry ?05/12/2013 ??05/12/2013 ?05:15:12 ?05:15:00 Test ?Units ?Reference Sodium ?140 ? mmol/L ?? 135- 145 Plasma Potassium ?4.2 ? mmol/L ?? 3.3-4.9 Chloride ?107 ? mmol/L ?? 97-110 Total CO2 ? 20 ??L ? mmol/L ?? 22-32 Anion Gap ? 13 ?mmol/L ?? 0-16 BUN ? 14 ?mg/dL ?8- 25 Creatinine ?0.62 ??L ? mg/dL ?0.70- 1.30 Total Bilirubin ? 0.1 ??L ?mg/dL ?0.3-1.1 Glucose, Fasting ?140 ??H ?mg/dL ?70-99 Total Calcium ? 9.2 ? mg/dL ?8.6-10.3 Plasma Total Protein ??6.9 ? g/dL ? 6.5-8.5 Albumin ? 3.6 ? g/dL ? 3.6- 5.0 Alkaline Phosphatase ??78 ?Units/L ??38-126 ALT ? 52 ?Units/L ??7-53 AST ? 50 ??H ? Units/L ??11-47 ?05/08/2013 ?06:00:49 Test ?Units ?Reference Sodium ?139 ? mmol/L ?? 135-145 Plasma Potassium ?4.0 ? mmol/L ?? 3.3-4.9 Chloride ?109 ? mmol/L ?? 97-110 Total CO2 ? 15 ??L ? mmol/L ?? 22-32 Anion Gap ? 15 ?mmol/L ?? 0-16 BUN ? 10 ?mg/dL ?8-25 Creatinine ?0.61 ??L ? mg/dL ?0.70-1.30 Total Bilirubin ? 0.2 ??L ?mg/dL ?0.3-1.1 Glucose ? 108 ? mg/dL ?70-199 Total Calcium ? 9.2 ? mg/dL ?8.6-10.3 Plasma Total Protein ??7.2 ? g/dL ? 6.5-8.5 Albumin ? 3.6 ? g/dL ? 3.6-5.0 Alkaline Phosphatase ??77 ?Units/L ??38-126 ALT ? 51 ?Units/L ??7-53 AST ? 56 ??H ? Units/L ??11-47 ?HEMATOLOGY ?Standard Hematology ?05/12/2013 ??05/08/2013 ?05:15:12 ?06:00:49 Test ?Units ?? Reference WBC ? 9.2 ? 7.9 ? K/cumm ??3.8-9.8 RBC ? 3.77 ??L ? 3.81 ??L ? M/cumm ??4.50-5.70 Hgb ? 10.6 ??L ? 10.9 ??L ? g/dL ?13.8-17.2 Hct ? 33.3 ??L ? 32.9 ??L ? % ? 40.7-50.[address] ? 351 ? 297 ? K/cumm ??140-440 MCV ? 88.3 ?86.4 ?fL ?80.0-97.6 MCH ? 28.3 ?28.6 ?pg ?26.7-33.7 MCHC ?32.0 ??L ? 33.0 ?g/dL ?32.7-35.5 RDW ? 15.6 ??H ? 15.3 ??H ? % ? 11.8-14.6 MPV ? 7.5 ? 7.5 ? fL ?6.8-10.4 Neut Pct Auto ?? 49.6 ?46.8 ?% ? 38.7-74.5 Lymph Pct Auto ??35.0 ?39.6 ?% ? 20.0-54.3 [place] Pct Auto ?? 12.0 ?11.7 ?% ? 4.3-13.5 Eos Pct Auto ?3.1 ? 1.7 ? % ? 0.0-6.0 Baso Pct Auto ?? 0.3 ? 0.2 ? % ? 0.0-3.0 Neut Abs Auto ?? 4.6 ? 3.7 ? K/cumm ??1.8-6.6 Lymph Abs Auto ??3.2 ? 3.1 ? K/cumm ??1.2-3.3 [place] Abs Auto ?? 1.1 ? 0.9 ? K/cumm ??0.2-1.2 Eos Abs Auto ?0.3 ? 0.1 ? K/cumm ??0.0-0.5 Baso Abs Auto ?? 0.0 ? 0.0 ? K/cumm ??0.0-0.2 us Historical Provider LAB BLOOD ORDERABLES Adeline miller Result HISTORICAL RESULTS * (ABNORMAL) Plasma comprehensive metabolic panel (05/12/2013 5:15 AM NUTRITIONAL CHEMIST) Sodium 140 135 - 145 mmol/L HISTORICAL RESULTS K, pl 4.2 3.3 - 4.9 mmol/L HISTORICAL RESULTS Chloride 107 97 - 110 mmol/L HISTORICAL RESULTS CO2 20(L) 22 - 32 mmol/L HISTORICAL RESULTS A. gap 13 0 - 16 mmol/L HISTORICAL RESULTS BUN 14 8 - 25 mg/dl HISTORICAL RESULTS Creatinine 0.62(L) 0.70 - 1.30 mg/dl HISTORICAL RESULTS Calcium 9.2 8.6 - 10.3 mg/dl HISTORICAL RESULTS Protein, pl 6.9 6.5 - 8.5 g/dl HISTORICAL RESULTS Alb 3.6 3.6 - 5.0 g/dl HISTORICAL RESULTS Bilirubin 0.1(L) 0.3 - 1.1 mg/dl HISTORICAL RESULTS Alk phos 78 38 - 126 Units/L HISTORICAL RESULTS AST 50(H) 11 - 47 Units/L HISTORICAL RESULTS ALT 52 7 - 53 Units/L HISTORICAL RESULTS Plasma 05/12/2013 5:15 AM NUTRITIONAL CHEMIST Júnior Ramos MD PhD LAB BLOOD ORDERABLES Final Result HISTORICAL RESULTS * (ABNORMAL) Blood cell count (CBC) (05/12/2013 5:15 AM NUTRITIONAL CHEMIST) WBC 9.2 3.8 - 9.8 K/cumm HISTORICAL RESULTS RBC 3.77(L) 4.50 - 5.70 M/cumm HISTORICAL RESULTS Hgb 10.6(L) 13.8 - 17.2 g/dl HISTORICAL RESULTS Hct 33.3(L) 40.7 - 50.3 % HISTORICAL RESULTS MCV 88.3 80.0 - 97.6 fl HISTORICAL RESULTS MCH 28.3 26.7 - 33.7 pg HISTORICAL RESULTS MCHC 32.0(L) 32.7 - 35.5 g/dl HISTORICAL RESULTS Rdw 15.6(H) 11.8 - 14.6 % HISTORICAL RESULTS Platelets 351 140 - 440 K/cumm HISTORICAL RESULTS MPV 7.5 6.8 - 10.4 fl HISTORICAL RESULTS Neutrophils 49.6 38.7 - 74.5 % HISTORICAL RESULTS Lymphocytes 35.0 20.0 - 54.3 % HISTORICAL RESULTS Monos 12.0 4.3 - 13.5 % HISTORICAL RESULTS Eosinophils 3.1 0.0 - 6.0 % HISTORICAL RESULTS Basophils 0.3 0.0 - 3.0 % HISTORICAL RESULTS Neutrophils, abs 4.6 1.8 - 6.6 K/cumm HISTORICAL RESULTS Lymphocytes, abs 3.2 1.2 - 3.3 K/cumm HISTORICAL RESULTS Monocytes, absolute 1.1 0.2 - 1.2 K/cumm HISTORICAL RESULTS Eosinophils, abs 0.3 0.0 - 0.5 K/cumm HISTORICAL RESULTS Basophils, abs 0.0 0.0 - 0.2 K/cumm HISTORICAL RESULTS Blood specimen (specimen) 05/12/2013 5:15 AM NUTRITIONAL CHEMIST Júnior Ramos MD PhD LAB BLOOD ORDERABLES Final Result HISTORICAL RESULTS * (ABNORMAL) Serum glucose, fasting (05/12/2013 5:15 AM NUTRITIONAL CHEMIST) Glucose, fasting 140(H) 70 - 99 mg/dl HISTORICAL RESULTS Serum 05/12/2013 5:15 AM NUTRITIONAL CHEMIST Júnior Ramos MD PhD LAB BLOOD ORDERABLES Final Result Performing Organization Address [facility] Phone Number HISTORICAL RESULTS * (ABNORMAL) Plasma comprehensive metabolic panel (05/08/2013 6:00 AM NUTRITIONAL CHEMIST) Sodium 139 135 - 145 mmol/L HISTORICAL RESULTS K, pl 4.0 3.3 - 4.9 mmol/L HISTORICAL RESULTS Chloride 109 97 - 110 mmol/L HISTORICAL RESULTS CO2 15(L) 22 - 32 mmol/L HISTORICAL RESULTS A. gap 15 0 - 16 mmol/L HISTORICAL RESULTS BUN 10 8 - 25 mg/dl HISTORICAL RESULTS Creatinine 0.61(L) 0.70 - 1.30 mg/dl HISTORICAL RESULTS Calcium 9.2 8.6 - 10.3 mg/dl HISTORICAL RESULTS Protein, pl 7.2 6.5 - 8.5 g/dl HISTORICAL RESULTS Alb 3.6 3.6 - 5.0 g/dl HISTORICAL RESULTS Bilirubin 0.2(L) 0.3 - 1.1 mg/dl HISTORICAL RESULTS Alk phos 77 38 - 126 Units/L HISTORICAL RESULTS AST 56(H) 11 - 47 Units/L HISTORICAL RESULTS ALT 51 7 - 53 Units/L HISTORICAL RESULTS Plasma 05/08/2013 6:00 AM NUTRITIONAL CHEMIST Júnior Ramos MD PhD LAB BLOOD ORDERABLES Final Result Performing Organization Address [facility] Phone Number HISTORICAL RESULTS * Serum glucose (05/08/2013 6:00 AM NUTRITIONAL CHEMIST) Glucose 108 70 - 199 mg/dl HISTORICAL RESULTS Serum 05/08/2013 6:00 AM NUTRITIONAL CHEMIST Júnior Ramos MD PhD LAB BLOOD ORDERABLES Final Result Performing Organization Address [facility] de Phone Number HISTORICAL RESULTS * (ABNORMAL) Blood cell count (CBC) (05/08/2013 6:00 AM NUTRITIONAL CHEMIST) WBC 7.9 3.8 - 9.8 K/cumm HISTORICAL RESULTS RBC 3.81(L) 4.50 - 5.70 M/cumm HISTORICAL RESULTS Hgb 10.9(L) 13.8 - 17.2 g/dl HISTORICAL RESULTS Hct 32.9(L) 40.7 - 50.3 % HISTORICAL RESULTS MCV 86.4 80.0 - 97.6 fl HISTORICAL RESULTS MCH 28.6 26.7 - 33.7 pg HISTORICAL RESULTS MCHC 33.0 32.7 - 35.5 g/dl HISTORICAL RESULTS Rdw 15.3(H) 11.8 - 14.6 % HISTORICAL RESULTS Platelets 297 140 - 440 K/cumm HISTORICAL RESULTS MPV 7.5 6.8 - 10.4 fl HISTORICAL RESULTS Neutrophils 46.8 38.7 - 74.5 % HISTORICAL RESULTS Lymphocytes 39.6 20.0 - 54.3 % HISTORICAL RESULTS Monos 11.7 4.3 - 13.5 % HISTORICAL RESULTS Eosinophils 1.7 0.0 - 6.0 % HISTORICAL RESULTS Basophils 0.2 0.0 - 3.0 % HISTORICAL RESULTS Neutrophils, abs 3.7 1.8 - 6.6 K/cumm HISTORICAL RESULTS Lymphocytes, abs 3.1 1.2 - 3.3 K/cumm HISTORICAL RESULTS Monocytes, absolute 0.9 0.2 - 1.2 K/cumm HISTORICAL RESULTS Eosinophils, abs 0.1 0.0 - 0.5 K/cumm HISTORICAL RESULTS Basophils, abs 0.0 0.0 - 0.2 K/cumm HISTORICAL RESULTS Blood specimen (specimen) 05/08/2013 6:00 AM NUTRITIONAL CHEMIST us Júnior Ramos MD PhD LAB BLOOD ORDERABLES Final Result HISTORICAL RESULTS documented in this encounter Visit Diagnoses Not on filedocumented in this encounter
--- OUTSIDE RECORDS SUMMARY | 2024-05-24 02:11 | XMS_ITS | Encounter Summary ---
Author Organization [facility] Facility Care Team Providers Care Care Trainer Name Role Phone Unavailable Primary Care Provider Unavailabl e Encounter Details Date Type Department Care Team (Latest Contact Info) Description 03/13/2013 7:27 PM CDT - 03/14/2013 3:19 AM T Hospital Encounter [facility] Luis Alfredo Logan MD [address] [place] [address] Closed fracture of one rib; Essential hypertension; Epilepsy (HCC); Chronic obstructive bronchitis without exacerbation (HCC); Pain in joint, pelvic region and thigh; Personal history of traumatic brain injury; Pure hypercholesterolemia; History of other diseases of digestive system; Encounter for long-term (current) use of other medications; Encounter for long-term (current) use of steroids; Family history of malignant neoplasm; Fracture of bone Social History Tobacco Use Types Packs/Day Years Used Date Smoking Tobacco: Never Assessed Sex and Gender Information Value Date Recorded Sex Assigned at Not on file 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: 03/13/2013 : 1965 Room No: ER Attending: Luis Alfredo Larios M.D. Consulting: Issac Schneider M.D. Dictating: Desmond Malik M.D. Service Dt: 05/01/2013 CONSULTATION REPORT REASON FOR CONSULTATION: Seizures. BRIEF HISTORY: This is a 48-year-old gentleman with a history of medically intractable complex partial seizures who is on the schedule for amygdalohippocampectomy tomorrow. He came to the outpatient MRI to have MRI of his brain for preop planning as well as anesthesia for preop work up in preparation for his surgery tomorrow. However, while in the waiting room of the MRI area, he suffered from a seizure. The patient describes he was sitting in the waiting area when he noticed his arms started falling and he lost consciousness. Bystanders including a medicine resident who was nearby who attending to the patient, described the event as the patient's body becoming tense and losing consciousness and this lasted only for a minute or so and the patient came back from it without need for any medication. He did have a short period of postictal confusion. Following this patient was brought to the ER by the ACT team for work up. Of note, the patient has had seizures since about [age] years of age, after a traumatic brain injury. The patient endorses that he has two to three seizures a week at home that self rhett and he does not go to the ER for those. He does mention that after these seizure events he is drained and tired for almost all day. He underwent presurgical work up including video EEG that has demonstrated right temporal onset for seizures. 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 In the emergency department the patient denied any confusion and said that his most worried was the ability to get his anesthesia preop and MRI done for his surgery tomorrow. He noted that he is not worried about the seizure and that it is a normal occurrence for him at this time. PAST MEDICAL HISTORY: 1. History of depression. 2. History of hypertension. 3. History of asthma. 4. Long history of seizures. 5. History of hypercholesterolemia. PAST SURGICAL HISTORY: 1. Prior rotator cuff surgery. 2. Multiple foot surgeries. 3. Ear cyst removal surgery. SOCIAL HISTORY: The patient does not smoke. The patient does not drink. The patient does not use any illicit drug. The patient lives at home. He [place] about [place] miles away. The patient lives alone. MEDICATIONS: 1. Albuterol. 2. Topamax 200 mg BID. 3. Depakote 500 mg four times a day. 4. Nortriptyline 75 mg twice a day. 5. Anxiety pill 40 mg once a day. Other medications that the patient cannot recall. He does not have a record of the medications with him. ALLERGY: No known drug allergies. REVIEW OF SYSTEMS: Positive for some arthritis pain and he denies an other complaints at this time aside from HPI. PHYSICAL EXAMINATION: The patient is fully alert. He is sitting on his chair. He is oriented to name, time and place. His pupils are equal, round and reactive to light. His extraocular movements are intact. Face is symmetric. Tongue is midline. Sensation on the face is intact to light touch. Hearing is symmetric to finger rubs. Shoulder shrug was 5/5. He has no pronator drift. His upper extremity strength is 5/5. His lower extremity strength is 5/5. Sensation is intact to light touch throughout. LABORATORY AND X-RAY DATA: PT, PTT within normal limits. CBC: White blood cell 7.1, hemoglobin 12.2, otherwise normal. BMP is within normal range. Valproic acid level is 45. IMPRESSION: This is a 48-year-old male with a history of medically intractable seizure who had an episode of seemingly partial complex seizure in the MRI waiting area. On exam the patient is at baseline neurological exam. His lab work up is all within normal limits. RECOMMENDATIONS: At this time, it was offered to the patient to be admitted to inpatient services where we could perform anesthesia perioperative studies as well as the MRI as an inpatient and perform the surgery tomorrow. However, the patient adamantly rejected that offer and explained that he needs to go home to tack picker some items from home for his surgery tomorrow. Alternatively it was offered that the patient could be discharged from the ER since medically stable and go to the CPAP where he could be cleared for surgery tomorrow and then to the MRI where preop imaging could be performed. The patient is to return tomorrow morning for his surgery with Dr. Schneider. The patient will be staffed with attending physician. Desmond Malik M.D. Electronically Signed By Issac Schneider M.D. 05/03/2013 03:17 P Issac Schneider M.D. /leg #[id number] Editing MT: TD: 05/01/2013 21:19:00 cc: Almaz Welch M.D. Afshin Salehi, M.D. documented in this encounter Plan of Treatment Not on file documented as of this encounter Procedures Procedure Name Priority Date/Time Associated Diagnosis Comments XR PELVIS 1 OR 2 VIEWS Routine 3 12:28 AM CDT XR HIP 2+ VW UNILATERAL Routine 03/14/20 13 12:28 AM CDT DISCHARGE LABORATORY CUMULATIVE REPORT Routine 03/14/2013 12:00 AM CDT URINALYSIS Routine 03/13/2013 11:58 PM CDT PLASMA PROTHROMBIN TIME (PT) Routine 03/13/2013 11:15 PM CDT PLASMA PARTIAL THROMBOPLASTIN TIME (PTT) Routine 03/13/2013 11:15 PM CDT PLASMA HEPATIC FUNCTION PANEL Routine 03/13/2013 11:15 PM CDT PLASMA BASIC METABOLIC PANEL Routine 03/13/2013 11:15 PM CDT BLOOD CELL COUNT (CBC) Routine 3 11:15 PM CDT XR CHEST PA LATERAL 2 VIEWS Routine 03/13/2013 10:01 PM CDT documented in this encounter Results * XR Hip Unilateral 2+ Vw (03/14/2013 12:28 AM CDT) Anatomical Region Laterality Modality Lower Extremities, Hip, Pelvis N/A R adiographic Imaging 03/14/2013 12:2 8 AM CDT Narrative 03/14/2013 12:22 PM CDT ELLIE GREER M.D. THUY FISHER M.D. FINAL REPORT The radiology attending physician has personally reviewed this study, and has reviewed and/or edited this written report and agrees with it. ACC# ??Date Time ??Exam [id number] Mar 14, 2013 00:28:00 [id number] Hip Unilateral min 2 views R [id number] Mar 14, 2013 00:28:00 [id number] Pelvis 1 or 2 views EXAMINATION: ?? 1. Pelvis 1 or 2 views 2. Right hip, minimum 2 views HISTORY: ??Hip pain COMPARISON: None available FINDINGS: AP view of the pelvis on 2 exposures and two-view examination of the right hip are performed. The femoral heads are well-seated. No fracture or other osseous abnormalities identified. There is a rounded opacity in the pelvis most compatible with bladder. IMPRESSION: ?? No fracture. Requested By: LUIS ALFREDO LARIOS M.D. Dictated By: ?? THUY FISHER M.D. ??on Mar ??2012 ??1:22A This document has been electronically signed by: ELLIE GREER M.D. on Mar ??2012 12:22P Procedure Note Provider, MD Kareem - 09/13/2016 ELLIE GREER M.D. THUY FISHER M.D. FINAL REPORT The radiology attending physician has personally reviewed this study, and has reviewed and/or edited this written report and agrees with it. ACC# Date Time Exam [id number] Mar 14, 2013 00:28:00 [id number] Hip Unilateral min 2 views R [id number] Mar 14, 2013 00:28:00 07908 Pelvis 1 or 2 views EXAMINATION: 1. Pelvis 1 or 2 views 2. Right hip, minimum 2 views HISTORY: Hip pain COMPARISON: None available FINDINGS: AP view of the pelvis on 2 exposures and two-view examination of the right hip are performed. The femoral heads are well-seated. No fracture or other osseous abnormalities identified. There is a rounded opacity in the pelvis most compatible with bladder. IMPRESSION: No fracture. Requested By: LUIS ALFREDO LARIOS M.D. Dictated By: THUY FISHER M.D. on Mar 14 2013 1:22A This document has been electronically signed by: ELLIE GREER M.D. on Mar 14 2013 12:22P us Historical Provider IMG XR PROCEDURES Final R esult * Xr Pelvis 1 or 2 Views (03/14/2013 12:28 AM CDT) Anatomical Region Laterality Modality Body, Pelvis N/A Radiographic Kayley ging 03/14/2013 12:2 8 AM CDT Narrative 03/14/2013 12:22 PM CDT ELLIE GREER M.D. THUY FISHER M.D. FINAL REPORT The radiology attending physician has personally reviewed this study, and has reviewed and/or edited this written report and agrees with it. ACC# ??Date Time ??Exam [id number] Mar 14, 2013 00:28:00 [id number] Hip Unilateral min 2 views R [id number] Mar 14, 2013 00:28:00 [id number] Pelvis 1 or 2 views EXAMINATION: ?? 1. Pelvis 1 or 2 views 2. Right hip, minimum 2 views HISTORY: ??Hip pain COMPARISON: None available FINDINGS: AP view of the pelvis on 2 exposures and two-view examination of the right hip are performed. The femoral heads are well-seated. No fracture or other osseous abnormalities identified. There is a rounded opacity in the pelvis most compatible with bladder. IMPRESSION: ?? No fracture. Requested By: LUIS ALFREDO LARIOS M.D. Dictated By: ?? THUY FISHER M.D. ??on Mar ??1 2012 ??1:22A This document has been electronically signed by: ELLIE GREER M.D. on Mar ??1 2012 12:22P Procedure Note Provider, MD Kareem - 09/13/2016 ELLIE GREER M.D. THUY FISHER M.D. FINAL REPORT The radiology attending physician has personally reviewed this study, and has reviewed and/or edited this written report and agrees with it. ACC# Date Time Exam [id number] Mar 14, 2013 00:28:00 35045 Hip Unilateral min 2 views R [id number] Mar 14, 2013 00:28:00 [id number] Pelvis 1 or 2 views EXAMINATION: 1. Pelvis 1 or 2 views 2. Right hip, minimum 2 views HISTORY: Hip pain COMPARISON: None available FINDINGS: AP view of the pelvis on 2 exposures and two-view examination of the right hip are performed. The femoral heads are well-seated. No fracture or other osseous abnormalities identified. There is a rounded opacity in the pelvis most compatible with bladder. IMPRESSION: No fracture. Requested By: LUIS ALFREDO LARIOS M.D. Dictated By: THUY FISHER M.D. on Mar 14 2013 1:22A This document has been electronically signed by: ELLIE GREER M.D. on Mar 14 2013 12:22P us Historical Provider IMG XR PROCEDURES Final R esult * Discharge Laboratory Cumulative Report (03/14/2013 12:00 AM CDT) 03/14/2013 Narrative HISTORICAL RESULTS - 03/14/2013 7:16 AM CDT ?[facility] ?Department of Laboratories ? [facility] [place] ? [place] [id number] Patient Name: ??REJI BRANCH Rec Number: [id number] Fin Number: ?[id number] Date: ?1965 Sex/Age: ? Male 48 years Admit Date: ?03/13/2013 Discharge Date: 03/14/2013 Doctor: ?Luis Alfredo Larios Facility: ?[facility] Location: ?[facility] Chart Printed: 03/14/2013 07:16 ?? * Abnormal ?? C Critical ?? f Footnote ?? ^ Corrected ?? L Low ?? H High ? i Interp Data ?? @ Reference Lab ?Chart Type:Cumulative ? SELECTED ELECTROLYTES ?Test: Sodium ? Plasma Potassium ??Chloride ? Reference: [135-145] ??[3.3-4.9] ? [97-110] ? Units: mmol/L ? mmol/L ?mmol/L 03/13/2013 ?? 23:15:00 ?? 137 ?4.3 ??f ?106 03/13/2013 23:15:00 ??Plasma Potassium: Hemolyzed; (+++); potassium value may be falsely elevated by as much as 0.6 - 1.0 mmol/L. Suggest redraw and reanalysis. ?Test: Total CO2 ??Anion Gap ? Reference: [22-32] ?[0-16] ? Units: mmol/L ? mmol/L 03/13/2013 ?? 23:15:00 ?? 19 ??L ?12 ? STANDARD BLOOD CHEMISTRY ?Test: BUN ? Creatinine ?? Total Bilirubin ? Reference: [8-25] ??[0.70-1.30] ??[0.3-1.1] ? Units: mg/dL ?? mg/dL ?mg/dL 03/13/2013 ?? 23:15:00 ?? 7 ??L ?0.56 ??L ?0.2 ??L ?Test: Bilirubin, Direct ??Glucose ?? Total Calcium ? Reference: [0.0-0.3] ?[70-199] ??[8.6-10.3] ? Units: mg/dL ?mg/dL ? mg/dL 03/13/2013 ?? 23:15:00 ?? See Comment ??f ? 100 ? 9.4 03/13/2013 23:15:00 ??Bilirubin, Direct: CRDT; Hemolyzed specimen ? STANDARD BLOOD CHEMISTRY ?Test: Plasma Total Protein ??Albumin ? Reference: [6.5-8.5] ? [3.6-5.0] ? Units: g/dL ?g/dL 03/13/2013 ?? 23:15:00 ?? 7.5 ? 4.3 ?ENZYMES ?Test: Alkaline Phosphatase ??ALT ?AST ? Reference: [38-126] ?[7-53] ?? [11-47] ? Units: Units/L ? Units/L ??Units/L 03/13/2013 ?? 23:15:00 ?? 87 ?47 ? 55 ??Hf 03/13/2013 23:15:00 ??AST: Hemolyzed; result may be falsely elevated. ?URINALYSIS ?Macroscopic ?Test: Color ? Clarity ??Specific [place] ? Reference: [Yellow] ?[Clear] ??[1.003-1.030] ? Units: 03/13/2013 ?? 23:58:00 ?? Light-Yellow ??Clear ?1.007 ?Test: pH ? Albumin ?? Glucose ? Ketones ? Reference: [5.0-8.0] ??[Trace] ?? [Negative] ??[Negative] ? Units: 03/13/2013 ?? 23:58:00 ?? 6.5 ?Negative ??Negative ?Negative ?Test: Bilirubin ?? Blood ? Urobilinogen ? Reference: [Negative] ??[Negative] ??[0.0-2.0] ? Units: ? mg/dL 03/13/2013 ?? 23:58:00 ?? Negative ?Negative ?<2.0 ?Test: Nitrite ? Leuk Esterase ? Reference: [Negative] ??[Negative] ? Units: 03/13/2013 ?? 23:58:00 ?? Negative ?Negative ? COMPLETE BLOOD COUNT ?Test: WBC ?RBC ?Hgb ? Reference: [3.8-9.8] ??[4.50-5.70] ??[13.8-17.2] ? Units: K/cumm ? M/cumm ? g/dL 03/13/2013 ?? 23:15:00 ?? 8.9 ?4.62 ? 13.1 ??L ? COMPLETE BLOOD COUNT ?Test: Hct ?Platelet Ct ??MCV ? Reference: [40.7-50.3] ??[140-440] ?[80.0-97.6] ? Units: % ?K/cumm ? fL 03/13/2013 ?? 23:15:00 ?? 39.0 ??L ?196 ?84.3 ?Test: MCH ?MCHC ? RDW ? Reference: [26.7-33.7] ??[32.7-35.5] ??[11.8-14.6] ? Units: pg ? g/dL ? % 03/13/2013 ?? 23:15:00 ?? 28.3 ? 33.6 ? 15.6 ??H ?Test: MPV ? Reference: [6.8-10.4] ? Units: fL 03/13/2013 ?? 23:15:00 ?? 7.5 ? AUTOMATED WHITE CELL DIFFERENTIAL ?Test: Neut Pct Auto ??Lymph Pct Auto ??[place] Pct Auto ? Reference: [38.7-74.5] ?[20.0-54.3] ? [4.3-13.5] ? Units: % ?% ? % 03/13/2013 ?? 23:15:00 ?? 44.2 ? 39.6 ?11.7 ?Test: Eos Pct Auto ??Baso Pct Auto ??Neut Abs Auto ? Reference: [0.0-6.0] ? [0.0-3.0] ?[1.8-6.6] ? Units: % ? % ?K/cumm 03/13/2013 ?? 23:15:00 ?? 3.4 ? 1.1 ?4.0 ?Test: Lymph Abs Auto ??[place] Abs Auto ??Eos Abs Auto ? Reference: [1.2-3.3] ? [0.2-1.2] ?[0.0-0.5] ? Units: K/cumm ?K/cumm ? K/cumm 03/13/2013 ?? 23:15:00 ?? 3.5 ??H ?1.0 ?0.3 ?Test: Baso Abs Auto ? Reference: [0.0-0.2] ? Units: K/cumm 03/13/2013 ?? 23:15:00 ?? 0.1 ? HEMOSTASIS AND THROMBOSIS ?Routine Coagulation Studies ?Test: PT ?INR i ?aPTT i ? Reference: [9.0-12.0] ??[0.90-1.20] ??[25.0-37.0] ? Units: sec ?sec 03/13/2013 ?? 23:15:00 ?? 10.5 ?1.00 ? 21.6 ??L ? HEMOSTASIS AND THROMBOSIS ?Routine Coagulation Studies 03/13/2013 23:15:00 INR: Interpretive Data Inpatient therapeutic ranges* Atrial fibrillation ?2.0-3.0 INR Venous thrombo-embolism ?2.0-3.0 INR Bioprosthetic heart valve ?* Mechanical heart valve, bileaflet or tilting disk,aortic position ? 2.0-3.0 INR All other,or bileaflet or tilting disk, in mitral position ? 2.5-3.5 INR *See the pharmacy resource directory (PHRED) for an updated copy of the Tool Book at [email or web address]/pharmacy.nsf Current Interpretive Data was last revised 2011. 03/13/2013 23:15:00 aPTT: Interpretive Data Therapeutic heparin range:60.0 - 94.0 sec based on correlation with therapeutic heparin activity range of 0.3 -0.7 Units/mL. Current interpretive data was last revised on 2011. Historical Provider LAB BLOOD ORDERABLES Adeline miller Result Performing Organization Address City/[facility] Co de Phone Number HISTORICAL RESULTS * Urinalysis (03/13/2013 11:58 PM CDT) Color, ur Light-Yellow Yellow HISTORI BAMBI RESULTS Clarity, ur Clear Clear HISTORIC AL RESULTS Specific gravity, ur 1.007 1.003 - 1.030 HISTORICAL RESULTS pH, ur [...] esterase, ur Negative Negative HISTORICAL RESULTS Urine 03/13/2013 11:5 8 PM CDT Tracie Desai NP LAB BLOOD ORDERABLES Final Result Performing Organization Address [facility] de Phone Number HISTORICAL RESULTS * (ABNORMAL) Plasma hepatic function panel (03/13/2013 11:15 PM CDT) Protein, pl 7.5 6.5 - 8.5 g/dl HISTORICAL RESULTS Alb 4.3 3.6 - 5.0 g/dl HISTORICAL RESULTS Bilirubin 0.2(L) 0.3 - 1.1 mg/dl HISTORICAL RESULTS Bilirubin, direct See Comment 0.0 - 0.3 mg/dl HISTORICAL RESULTS Comment:{CRDT; Hemolyzed spe cimen} Alk phos 87 38 - 126 Units/L HISTORICAL RESULTS AST 55(H) 11 - 47 Units/L HISTORICAL RESULTS Comment:{Hemolyzed; result m ay be falsely elevated.} ALT 47 7 - 53 Units/L HISTORICAL RESULTS Plasma 03/13/2013 11:1 5 PM CDT Tracie Desai NP LAB BLOOD ORDERABLES Final Result Performing Organization Address [facility] de Phone Number HISTORICAL RESULTS * (ABNORMAL) Plasma partial thromboplastin time (PTT) (03/13/2013 11:15 PM CDT) Pathologist [facility] APTT 21.6(L) 25.0 - 37.0 seconds HISTORICAL RESULTS Comment: Interpretive Data Therapeutic heparin range:60.0 - 94.0 sec based on correlation with therapeutic heparin activity range of 0.3 -0.7 Units/mL. Current interpretive data was last revised on 2011. Plasma 03/13/2013 11:1 5 PM CDT Tracie Desai NP LAB BLOOD ORDERABLES Final Result Performing Organization Address [facility] de Phone Number HISTORICAL RESULTS * (ABNORMAL) Plasma basic metabolic panel (03/13/2013 11:15 PM CDT) Sodium 137 135 - 145 mmol/L HISTORICAL RESULTS K, pl 4.3 3.3 - 4.9 mmol/L HISTORICAL RESULTS Comment: Hemolyzed; (+++); potassium value may be falsely elevated by as much as 0.6 - 1.0 mmol/L. Suggest redraw and reanalysis. Chloride 106 97 - 110 mmol/L HISTORICAL RESULTS CO2 19(L) 22 - 32 mmol/L HISTORICAL RESULTS A. gap 12 0 - 16 mmol/L HISTORICAL RESULTS Glucose 100 70 - 199 mg/dl HISTORICAL RESULTS BUN 7(L) 8 - 25 mg/dl HISTORICAL RESULTS Creatinine 0.56(L) 0.70 - 1.30 mg/dl HISTORICAL RESULTS Calcium 9.4 8.6 - 10.3 mg/dl HISTORICAL RESULTS Plasma 03/13/2013 11:1 5 PM CDT Tracie Desai NP LAB BLOOD ORDERABLES Final Result HISTORICAL RESULTS * Plasma prothrombin time (PT) (03/13/2013 11:15 PM CDT) Prothrombin time (PT) 10.5 9.0 - 12.0 seconds HISTORICAL RESULTS INR 1.00 0.90 - 1.20 HISTORIC AL RESULTS Comment: Interpretive Data Inpatient therapeutic ranges* Atrial fibrillation ?2.0-3.0 INR Venous thrombo-embolism ?2.0-3.0 INR Bioprosthetic heart valve ?* Mechanical heart valve, bileaflet or tilting disk,aortic position ? 2.0-3.0 INR All other,or bileaflet or tilting disk, in mitral position ? 2.5-3.5 INR *See the pharmacy resource directory (PHRED) for an updated copy of the Tool Book at [email or web address] Current Interpretive Data was last revised 2011. Plasma 03/13/2013 11:1 5 PM CDT us Tracie Desai NP LAB BLOOD ORDERABLES Final Result HISTORICAL RESULTS * (ABNORMAL) Blood cell count (CBC) (03/13/2013 11:15 PM CDT) WBC 8.9 3.8 - 9.8 K/cumm HISTORICAL RESULTS RBC 4.62 4.50 - 5.70 M/cumm HISTORICAL RESULTS Hgb 13.1(L) 13.8 - 17.2 g/dl HISTORICAL RESULTS Hct 39.0(L) 40.7 - 50.3 % HISTORICAL RESULTS MCV 84.3 80.0 - 97.6 fl HISTORICAL RESULTS MCH 28.3 26.7 - 33.7 pg HISTORICAL RESULTS MCHC 33.6 32.7 - 35.5 g/dl HISTORICAL RESULTS Rdw 15.6(H) 11.8 - 14.6 % HISTORICAL RESULTS Platelets 196 140 - 440 K/cumm HISTORICAL RESULTS MPV 7.5 6.8 - 10.4 fl HISTORICAL RESULTS Neutrophils 44.2 38.7 - 74.5 % HISTORICAL RESULTS Lymphocytes 39.6 20.0 - 54.3 % HISTORICAL RESULTS Monos 11.7 4.3 - 13.5 % HISTORICAL RESULTS Eosinophils 3.4 0.0 - 6.0 % HISTORICAL RESULTS Basophils 1.1 0.0 - 3.0 % HISTORICAL RESULTS Neutrophils, abs 4.0 1.8 - 6.6 K/cumm HISTORICAL RESULTS Lymphocytes, abs 3.5(H) 1.2 - 3.3 K/cumm HISTORICAL RESULTS Monocytes, absolute 1.0 0.2 - 1.2 K/cumm HISTORICAL RESULTS Eosinophils, abs 0.3 0.0 - 0.5 K/cumm HISTORICAL RESULTS Basophils, abs 0.1 0.0 - 0.2 K/cumm HISTORICAL RESULTS Blood specimen (specimen) 03/13/2013 11:15 PM CDT Tracie Desai NP LAB BLOOD ORDERABLES Final Result HISTORICAL RESULTS * XR Chest Pa Lateral 2 Views (03/13/2013 10:01 PM CDT) Anatomical Region Laterality Modality Body, Chest N/A Radiographic Kayley ging 03/13/2013 10:0 1 PM CDT Narrative 03/14/2013 12:22 PM CDT ELLIE GREER M.D. THUY FISHER M.D. FINAL REPORT The radiology attending physician has personally reviewed this study, and has reviewed and/or edited this written report and agrees with it. ACC# ??Date Time ??Exam [id number] Mar 13, 2013 22:01:00 [id number] Chest 2 views Frontl & Lat EXAMINATION: ?? Chest 2 views COMPARISON: Chest radiograph dated 10/21/2012 IMPRESSION: ?? Streaky atelectasis is noted at the right lung base. No focal consolidation or pulmonary edema is identified. No pleural effusion or pneumothorax. The cardiomediastinal silhouette is normal in contour. Requested By: RAMSES WOOD M.D. Dictated By: ?? THUY FISHER M.D. ??on Mar 13 2013 10:13P This document has been electronically signed by: ELLIE GREER M.D. on Mar 12:22P Procedure Note Provider, Kareem, - 10/19/2016 ELLIE GREER M.D. THUY FISHER M.D. FINAL REPORT The radiology attending physician has personally reviewed this study, and has reviewed and/or edited this written report and agrees with it. ACC# Date Time Exam [id number] Mar 13, 2013 22:01:00 [id number] Chest 2 views Frontl & Lat EXAMINATION: Chest 2 views COMPARISON: Chest radiograph dated 10/21/2012 IMPRESSION: Streaky atelectasis is noted at the right lung base. No focal consolidation or pulmonary edema is identified. No pleural effusion or pneumothorax. The cardiomediastinal silhouette is normal in contour. Requested By: RAMSES WOOD M.D. Dictated By: THUY FISHER M.D. on Mar 13 2013 10:13P This document has been electronically signed by: ELLIE GREER M.D. on Mar 14 2013 12:22P us Historical Provider IMG XR PROCEDURES Final R esult documented in this encounter Visit Diagnoses Diagnosis Closed fracture of one rib Essential hypertension Unspecified essential hypertension Epilepsy (HCC) Unspecified epilepsy without mention of intractable epilepsy Chronic obstructive bronchitis without exacerbation (HCC) Pain in joint, pelvic region and thigh Personal history of traumatic brain injury Pure hypercholesterolemia History of other diseases of digestive system Encounter for long-term (current) use of other medications Encounter for long-term (current) use of steroids Family history of malignant neoplasm Fracture of bone Closed fracture of unspecified bone documented in this encounter
--- OUTSIDE RECORDS SUMMARY | 2024-05-24 02:11 | XMS_ITS | Encounter Summary ---
Author Organization [facility] Healthcare Address [address] [place] [address] Care Team Providers Care Hub Associate Name Role Phone Unavailable Primary Care Provider Unavailabl e Encounter Details Date Type Department Care Team (Late st Contact Info) Description 09/13/2010 4:40 PM CDT - 09/13/2010 7:15 PM CDT Hospital Encounter [facility] Júnior Davis MD [address] [facility] [address] [place] [address] Convulsions (HCC); Essential hypertension; Asthma Social History Tobacco Use Types Packs/Day Years Used Date Smoking Tobacco: Never Assessed Sex and Gender Information Value Date Recorded Sex Assigned at Not on file 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
--- OUTSIDE RECORDS SUMMARY | 2024-05-24 02:11 | XMS_ITS | Encounter Summary ---
Author Organization [facility] Facility Care Team Providers Care Ear Machine Operator Name Role Phone Unavailable Primary Care Provider Unavailabl e Encounter Details Date Type Department Care Team (Late st Contact Info) Description 05/22/2008 8:04 AM CAST ASSOCIATE - 05/29/2008 6:42 PM CAST ASSOCIATE Hospital Encounter [facility] CLINFrederic Nguyen MD PhD [address] [place] [address] Epilepsy (HCC); Demyelinating disease of central nervous system (HCC); Asthma; Dysthymic disorder; Other and unspecified hyperlipidemia; Esophageal reflux; Essential hypertension; Arthropathy, lower leg; Arthropathy of pelvic region and thigh; Arthropathy of shoulder region Social History Tobacco Use Types Packs/Day Years Used Date Smoking Tobacco: Never Assessed Sex and Gender Information Value Date Recorded Sex Assigned at Not on file 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 ASSOCIATE Gender Identity Not on file Sexual Orientation Not on file documented as of this encounter Medications at Time of Discharge cyanocobalamin/fo lic acid (vitamin H30-ropcv acid) 2,500-400 mcg tablet,disintegra ting 05/14/1969 naproxen sodium 220 mg capsule ALEVE CAPSULE 05/14/1969 documented as of this encounter Plan of Treatment Not on file documented as of this encounter Visit Diagnoses Diagnosis Epilepsy (HCC) Unspecified epilepsy without mention of intractable epilepsy Demyelinating disease of central nervous system (HCC) Unspecified demyelinating disease of central nervous system Asthma Unspecified asthma Dysthymic disorder Other and unspecified hyperlipidemia Esophageal reflux Essential hypertension Unspecified essential hypertension Arthropathy, lower leg Unspecified arthropathy, lower leg Arthropathy of pelvic region and thigh Unspecified arthropathy, pelvic region and thigh Arthropathy of shoulder region Unspecified arthropathy, shoulder region documented in this encounter
--- OUTSIDE RECORDS SUMMARY | 2024-05-24 02:11 | XMS_ITS | Encounter Summary ---
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
--- OUTSIDE RECORDS SUMMARY | 2024-05-24 02:11 | XMS_ITS | Encounter Summary ---
Author Organization [facility] Facility Care Team Providers Care Line Haul Owner Operator Name Role Phone Unavailable Primary Care Provider Unavailabl e Encounter Details Date Type Department Care Team (Late st Contact Info) Description 11/24/2008 10:09 AM CDT - 11/24/2008 4:00 PM T Hospital Encounter [facility] CLINCONV Luis Alfredo Landry MD [address] [place] [address] Dysphagia; Essential hypertension; Asthma; Convulsions (HCC); Dysthymic disorder Social History Tobacco Use Types Packs/Day Years Used Date Smoking Tobacco: Never Assessed Sex and Gender Information Value Date Recorded Sex Assigned at Not on file 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
--- OUTSIDE RECORDS SUMMARY | 2024-05-24 02:11 | XMS_ITS | Encounter Summary ---
Author Organization [facility] Facility Care Team Providers Care Java Web Developer Name Role Phone Unavailable Primary Care Provider Unavailabl e Encounter Details Date Type Department Care Team (Late st Contact Info) Description 05/01/2013 - 05/01/2013 11:59 PM WIND TECHNICIAN Hospital Encounter [facility] Issac Argueta MD [address] [place] [address] Social History Tobacco Use Types Packs/Day Years Used Date Smoking Tobacco: Former Sex and Gender Information Value Date Recorded Sex Assigned at Not on file 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 WIND TECHNICIAN Gender Identity Not on file Sexual Orientation Not on file documented as of this encounter Medications at Time of Discharge cyanocobalamin/fo lic acid (vitamin L27-nyffq acid) 2,500-400 mcg tablet,disintegra ting 05/14/1969 naproxen sodium 220 mg capsule ALEVE CAPSULE 05/14/1969 divalproex ER (DEPAKOTE ER) 500 mg 24 hr tablet TAKE 2 TABS QAM, 1 TAB AT NOON, AND 2 TABS QPM 02/11/2013 02/13/2018 documented as of this encounter Plan of Treatment Not on file documented as of this encounter Procedures Procedure Name Priority Date/Time Associated Diagnosis Comments MRI BRAIN WO CONTRAST Routine 05/01/2013 8:31 PM WIND TECHNICIAN documented in this encounter Results * MRI Brain WO Contrast (05/01/2013 8:31 PM WIND TECHNICIAN) Anatomical Region Laterality Modality Head and Neck N/A Magnetic Resonan ce 05/01/2013 8:31 PM WIND TECHNICIAN Narrative 05/02/2013 3:32 PM WIND TECHNICIAN NESSA LUTZ M.D. CAROLYN ROSENBERG, FINAL REPORT The radiology attending physician has personally reviewed this study, and has reviewed and/or edited this written report and agrees with it. ACC# ??Date Time ??Exam [id number] May 01, 2013 20:31:00 [id number] MRI Brain w/o contrast EXAMINATION: ? Magnetic resonance imaging (MRI) of the brain and brainstem without contrast. HISTORY: ?? Preoperative for right temporal lobectomy for refractory seizures. TECHNIQUE: ?? Multiplanar multisequence MR imaging of the brain was performed without intravenous contrast according to a stealth protocol. Contrast information: None given. COMPARISON: Prior brain MRI from 02/25/2013 FINDINGS: Fiducial markers are in place. The intracranial findings are unchanged since prior imaging and include: Volume loss and increased T2 signal in the right hippocampal region. Also redemonstrated is encephalomalacia in the right postcentral gyrus. IMPRESSION: ?? Stable intracranial findings from prior imaging with interval attachment of fiducial markers without complication. Requested By: ISSAC HERRERA M.D. Dictated By: ?? CAROLYN ROSENBERG, ?? on May 02 2013 ??9:31A This document has been electronically signed by: NESSA LUTZ M.D. on May 02 2013 ??3:31P Procedure Note Provider, MD Kareem - 09/13/2016 NESSA LUTZ M.D. CAROLYN ROSENBERG, FINAL REPORT The radiology attending physician has personally reviewed this study, and has reviewed and/or edited this written report and agrees with it. ACC# Date Time Exam [id number] May 01, 2013 20:31:00 [id number] MRI Brain w/o contrast EXAMINATION: Magnetic resonance imaging (MRI) of the brain and brainstem without contrast. HISTORY: Preoperative for right temporal lobectomy for refractory seizures. TECHNIQUE: Multiplanar multisequence MR imaging of the brain was performed without intravenous contrast according to a stealth protocol. Contrast information: None given. COMPARISON: Prior brain MRI from 02/25/2013 FINDINGS: Fiducial markers are in place. The intracranial findings are unchanged since prior imaging and include: Volume loss and increased T2 signal in the right hippocampal region. Also redemonstrated is encephalomalacia in the right postcentral gyrus. IMPRESSION: Stable intracranial findings from prior imaging with interval attachment of fiducial markers without complication. Requested By: ISSAC HERRERA M.D. Dictated By: CAROLYN ROSENBERG on May 02 2013 9:31A This document has been electronically signed by: NESSA LUTZ M.D. on May 02 2013 3:31P us Historical Provider MD BERGMAN MRI PROCEDURES Final Result documented in this encounter Visit Diagnoses Not on filedocumented in this encounter
--- OUTSIDE RECORDS SUMMARY | 2024-05-24 02:11 | XMS_ITS | Encounter Summary ---
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
--- OUTSIDE RECORDS SUMMARY | 2024-05-24 02:11 | XMS_ITS | Encounter Summary ---
Author Organization [facility] Facility Care Team Providers Care Supervisor Public Health Nursing Name Role Phone Unavailable Primary Care Provider Unavailabl e Encounter Details Date Type Department Care Team (Late st Contact Info) Description 02/25/2013 - 02/25/2013 11:59 PM CDT Hospital Encounter [facility] Salomon Blanco MD PhD [address] [place] [address] Convulsions (HCC); Temporal sclerosis; Other specified disorders of brain Social History Tobacco Use Types Packs/Day Years Used Date Smoking Tobacco: Never Assessed Sex and Gender Information Value Date Recorded Sex Assigned at Not on file 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 Gender Identity Not on file Sexual Orientation Not on file documented as of this encounter Medications at Time of Discharge cyanocobalamin/fo lic acid (vitamin T91-rmwue acid) 2,500-400 mcg tablet,disintegra ting 05/14/1969 naproxen sodium 220 mg capsule ALEVE CAPSULE 05/14/1969 divalproex ER (DEPAKOTE ER) 500 mg 24 hr tablet TAKE 2 TABS QAM, 1 TAB AT NOON, AND 2 TABS QPM 02/11/2013 02/13/2018 documented as of this encounter Plan of Treatment Not on file documented as of this encounter Procedures Procedure Name Priority Date/Time Associated Diagnosis Comments MRI BRAIN W WO CONTRAST Routine 02/25/2013 4:04 PM CDT BLOOD CREATININE, POINT OF CARE Routine 02/25/2013 3:03 PM CDT PET/CT FDG LIMITED Routine 02/25/2013 11 :47 AM CDT DISCHARGE LABORATORY CUMULATIVE REPORT Routine 02/25/2013 12:00 AM CDT documented in this encounter Results * MRI Brain W WO Contrast (02/25/2013 4:04 PM CDT) Anatomical Region Laterality Modality Head and Neck N/A Magnetic Resonan ce 02/25/2013 4:04 PM CDT Narrative 02/25/2013 11:39 PM CDT YUKO BAEZ M.D. ROBERTO POLANCO M.D. FINAL REPORT The radiology attending physician has personally reviewed this study, and has reviewed and/or edited this written report and agrees with it. ACC# ??Date Time ??Exam [id number] Feb 25, 2013 16:04:00 [id number] MRI Brain wo&with contrast ACC# ??Date Time ??Exam [id number] Feb 25, 2013 16:04:00 [id number] MRI Brain wo&with contrast EXAMINATION: ?? Magnetic resonance imaging (MRI) of the brain and brainstem without and with contrast HISTORY: Seizures TECHNIQUE: Multiplanar, multi-weighted MRI of the brain and brainstem was performed without and with intravenous contrast according to the seizure protocol, which includes detailed imaging of the hippocampi and temporal lobes. Contrast information: Intravenous contrast used: OptiMARK 0.1mmol/kg 20 mL. COMPARISON: Prior brain MRI dated 04/27/2008. FINDINGS: There is marked asymmetric atrophy of the entire right hippocampus, with involvement of the head, body, and tail. There is also associated abnormally increased FLAIR signal within the right hippocampal head and body, stable. There is a focal area of encephalomalacia/gliosis within the right lateral postcentral gyrus, stable from prior. Diffusion weighted images reveal no hyperintensities to suggest acute cerebral infarction or cavernomas. The susceptibility weighted sequences reveal no evidence of acute or chronic hemorrhage. The ventricles are normal in size and position without evidence of hydrocephalus. ??There are no areas of abnormal contrast enhancement to suggest tumor. There is no evidence of heterotopia, vascular malformations, or tumors. The scalp and calvarium are normal. The superior sagittal sinus demonstrates normal venous flow. The corpus callosum is normal in shape and signal intensity. The posterior fossa is unremarkable. The pituitary and sella are normal. The brainstem and craniocervical junction are unremarkable. The visualized portions of the orbits, mastoids and paranasal sinuses are unremarkable. Normal flow voids are demonstrated in the carotid arteries and basilar artery. ?? IMPRESSION: ?? 1. 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 2. Focal area of encephalomalacia within the right lateral postcentral gyrus, stable from prior, and likely related to prior insult (stated history of traumatic brain injury as a child). ?? Requested By: SALOMON BLANCO M.D. Dictated By: ?? ROBERTO POLANCO M.D. ??on Feb 25 2013 ??5:15P This document has been electronically signed by: YUKO BAEZ M.D. on Feb 25 2013 11:39P Procedure Note Provider, MD Kareem - 09/13/2016 YUKO BAEZ M.D. ROBERTO POLANCO M.D. FINAL REPORT The radiology attending physician has personally reviewed this study, and has reviewed and/or edited this written report and agrees with it. ACC# Date Time Exam [id number] Feb 25, 2013 16:04:00 [id number] MRI Brain wo&with contrast ACC# Date Time Exam [id number] Feb 25, 2013 16:04:00 [id number] MRI Brain wo&with contrast EXAMINATION: Magnetic resonance imaging (MRI) of the brain and brainstem without and with contrast HISTORY: Seizures TECHNIQUE: Multiplanar, multi-weighted MRI of the brain and brainstem was performed without and with intravenous contrast according to the seizure protocol, which includes detailed imaging of the hippocampi and temporal lobes. Contrast information: Intravenous contrast used: OptiMARK 0.1mmol/kg 20 mL. COMPARISON: Prior brain MRI dated 04/27/2008. FINDINGS: There is marked asymmetric atrophy of the entire right hippocampus, with involvement of the head, body, and tail. There is also associated abnormally increased FLAIR signal within the right hippocampal head and body, stable. There is a focal area of encephalomalacia/gliosis within the right lateral postcentral gyrus, stable from prior. Diffusion weighted images reveal no hyperintensities to suggest acute cerebral infarction or cavernomas. The susceptibility weighted sequences reveal no evidence of acute or chronic hemorrhage. The ventricles are normal in size and position without evidence of hydrocephalus. There are no areas of abnormal contrast enhancement to suggest tumor. There is no evidence of heterotopia, vascular malformations, or tumors. The scalp and calvarium are normal. The superior sagittal sinus demonstrates normal venous flow. The corpus callosum is normal in shape and signal intensity. The posterior fossa is unremarkable. The pituitary and sella are normal. The brainstem and craniocervical junction are unremarkable. The visualized portions of the orbits, mastoids and paranasal sinuses are unremarkable. Normal flow voids are demonstrated in the carotid arteries and basilar artery. IMPRESSION: 1. 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 2. Focal area of encephalomalacia within the right lateral postcentral gyrus, stable from prior, and likely related to prior insult (stated history of traumatic brain injury as a child). Requested By: SALOMON BLANCO M.D. Dictated By: ROBERTO POLANCO M.D. on Feb 25 2013 5:15P This document has been electronically signed by: YUKO BAEZ M.D. on Feb 25 2013 11:39P Historical Provider IMG MRI PROCEDURES Final Result * Blood creatinine, point of care (02/25/2013 3:03 PM CDT) Creatinine, POC, bld 0.8 0.7 - 1.3 mg/dl HISTORICAL RESULTS Blood specimen (specimen) 02/25/2013 3:03 PM CDT Salomon Blanco MD PhD LAB BLOOD ORDERABLES Adeline miller Result HISTORICAL RESULTS * PET/CT FDG Limited (02/25/2013 11:47 AM CDT) Anatomical Region Laterality Modality N/A Positron Emissio n Tomography (PET) 02/25/2013 11:4 7 AM CDT Narrative 02/25/2013 5:35 PM CDT FEDE BURGOS M.D. GANESH FIGUEROA, FINAL REPORT The radiology attending physician has personally reviewed this study, and has reviewed and/or edited this written report and agrees with it. ACC# ??Date Time ??Exam [id number] Feb 25, 2013 11:47:00 [id number] Brain PET NonTumor [facility] EXAMINATION: ?BRAIN FDG-PET/CT IMAGING DATE OF STUDY: ??02/25/13 PET ID: ??mCT [id number] RADIOPHARMACEUTICAL: ??10.47 mCi F-18 Fluorodeoxyglucose (FDG) i.v. HISTORY: 48-year-old man with ??a history of traumatic brain injury and seizures since [age] years old. TECHNIQUE: ??The patient's fasting blood glucose level, measured by glucometer before injection of FDG, was 126 mg/dL. ??FDG was administered intravenously with the patient in a quiet, darkened room, and 59 minutes later, after positioning of the patient's head, noncontrast CT images were obtained for attenuation correction and for fusion with emission PET images to allow for anatomical localization of PET findings. ??Standard emission PET imaging was then performed. COMPARISON: PET images were compared with the brain MRI of 04/27/2008. There is decreased metabolism in the right temporal lobe, predominantly in the anteromedial aspect. Previously seen focal area of encephalomalacia with decreased FDG uptake in the right lateral postcentral gyrus is noted again. The FDG uptake in the rest of the brain appears normal. The CT part of PET/CT demonstrates a focal area of encephalomalacia in the right lateral postcentral gyrus. ?? IMPRESSION: 1. Decreased metabolism in the anteromedial aspect of right temporal lobe, correlating with medial temporal sclerosis as seen in prior MRI. 2. Decreased FDG uptake with the encephalomalacia in the right lateral postcentral gyrus. ?? Requested By: SALOMON BLANCO M.D. Dictated By: ?? GANESH FIGUEROA, ?? on Feb 25 2013 ??1:46P This document has been electronically signed by: FEDE BURGOS M.D. on Feb 25 2013 ??5:35P Procedure Note Provider, MD Kareem - 09/13/2016 FEDE BURGOS M.D. GANESH FIGUEROA, FINAL REPORT The radiology attending physician has personally reviewed this study, and has reviewed and/or edited this written report and agrees with it. [facility]# Date Time Exam [id number] Feb 25, 2013 11:47:00 [id number] Brain PET NonTumor [facility] EXAMINATION: BRAIN FDG-PET/CT IMAGING DATE OF STUDY: 02/25/13 PET ID: mCT [id number] RADIOPHARMACEUTICAL: 10.47 mCi F-18 Fluorodeoxyglucose (FDG) i.v. HISTORY: 48-year-old man with a history of traumatic brain injury and seizures since [age] years old. TECHNIQUE: The patient's fasting blood glucose level, measured by glucometer before injection of FDG, was 126 mg/dL. FDG was administered intravenously with the patient in a quiet, darkened room, and 59 minutes later, after positioning of the patient's head, noncontrast CT images were obtained for attenuation correction and for fusion with emission PET images to allow for anatomical localization of PET findings. Standard emission PET imaging was then performed. COMPARISON: PET images were compared with the brain MRI of 04/27/2008. There is decreased metabolism in the right temporal lobe, predominantly in the anteromedial aspect. Previously seen focal area of encephalomalacia with decreased FDG uptake in the right lateral postcentral gyrus is noted again. The FDG uptake in the rest of the brain appears normal. The CT part of PET/CT demonstrates a focal area of encephalomalacia in the right lateral postcentral gyrus. IMPRESSION: 1. Decreased metabolism in the anteromedial aspect of right temporal lobe, correlating with medial temporal sclerosis as seen in prior MRI. 2. Decreased FDG uptake with the encephalomalacia in the right lateral postcentral gyrus. Requested By: SALOMON BLANCO M.D. Dictated By: GANESH FIGUEROA, on Feb 25 2013 1:46P This document has been electronically signed by: FEDE BURGOS M.D. on Feb 25 2013 5:35P Historical Provider MD BERGMAN PET PROCEDURES Final Result * Discharge Laboratory Cumulative Report (02/25/2013 12:00 AM CDT) 02/25/2013 Narrative HISTORICAL RESULTS - 02/26/2013 7:16 AM CDT ?[facility] ?Department of Laboratories ? [address] [facility] [place] ? [place] [id number] Patient Name: ??REJI BRANCH Rec Number: [id number] Fin Number: ?[id number] Date: ?1965 Sex/Age: ? Male 48 years Admit Date: ?02/25/2013 Discharge Date: 02/25/2013 Doctor: ?Salomon Blanco Facility: ?[facility] Location: ?[facility] Chart Printed: 02/26/2013 07:16 ?? * Abnormal ?? C Critical ?? f Footnote ?? ^ Corrected ?? L Low ?? H High ? i Interp Data ?? @ Reference Lab ?Chart Type:Cumulative ?POINT OF CARE TESTS ? Chemistry ?Test: Creat iPOC ? Reference: [0.7-1.3] ? Units: mg/dL 02/25/2013 ?? 15:03:00 ?? 0.8 us Historical Provider LAB BLOOD ORDERABLES Adeline miller Result Performing Organization Address City/State/[facility] Co de Phone Number HISTORICAL RESULTS documented in this encounter Visit Diagnoses Diagnosis Convulsions (HCC) Other convulsions Temporal sclerosis Other specified disorders of brain documented in this encounter
--- OUTSIDE RECORDS SUMMARY | 2024-05-24 02:11 | XMS_ITS | Encounter Summary ---
Author Organization [facility] Facility Care Team Providers Care Case Management Director Name Role Phone Unavailable Primary Care Provider Unavailabl e Encounter Details Date Type Department Care Team (Latest Contact Info) Description 02/04/2013 8:30 AM CDT - 02/10/2013 4:35 PM CDT Hospital Encounter [facility] Danial Osei III, MD [address] [facility] [place] [address] [place] [address] Epilepsy (HCC); Late effect of intracranial injury (HCC); Other depressive disorder; Anxiety state; Esophageal reflux; Asthma; Coronary atherosclerosis of [place] coronary artery; Other and unspecified hyperlipidemia; Essential hypertension Social History Tobacco Use Types Packs/Day Years Used Date Smoking Tobacco: Never Assessed Sex and Gender Information Value Date Recorded Sex Assigned at Not on file 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 Gender Identity Not on file Sexual Orientation Not on file documented as of this encounter Last Filed Vital Signs Vital Sign Reading Time Taken Comments Blood Pressure 141/85 02/10/2013 6:00 AM CDT Pulse 80 02/10/2013 9:22 AM CDT Temperature - - Respiratory Rate - - Oxygen Saturation 96% 02/10/2013 6:00 AM CDT Inhaled Oxygen Concentration - - Weight 104.3 kg (229 lb 15.7 oz) 2012 11:29 AM CDT Height 180.3 cm (5' 11 ) 02/04/2013 11: 29 AM CDT Body Mass Index 32.08 02/04/2013 11:29 AM CDT documented in this encounter Medications at Time of Discharge cyanocobalamin/fo lic acid (vitamin A76-hrojl acid) 2,500-400 mcg tablet,disintegra ting 05/14/1969 naproxen sodium 220 mg capsule ALEVE CAPSULE 05/14/1969 documented as of this encounter H&P Notes * Provider, MD Kareem - 02/04/2013 12:00 AM CDT Patient: Reji Branch Reg No: [id number] [facility] #: [id number] Admit Dt.: 02/04/2013 : 1965 Room No: [id number] Attending: Danial Hightower M.D. Dictating: Gerardo Baird ADMISSION HISTORY PHYSICAL ADMISSION DIAGNOSIS (ES): Seizure versus non-epileptic event. CHIEF COMPLAINT: Seizure. HISTORY OF PRESENT ILLNESS: This is a 47-year-old right-handed male with a history of traumatic brain injury and seizures since [age] years old, here for evaluation and characterization of spells with question of candidacy for VNS. He has four spell types, the first described as staring with altered consciousness lasting three to four minutes. There is incontinence of urine and tongue biting. These occur three times weekly. The second type is described as beginning with stomach pain, nausea, and chills. Sometimes he will then lose consciousness. He can prevent loss of consciousness occasionally by trying to relax and take deep breaths. There is postictal confusion and fatigue for an hour. The third type is described as legs begin to shake. He will fall with standing or walking. He does not lose consciousness. This last five minutes. They occur one to two times a week. There is no aura or trigger associated with these spells. The fourth type is described as generalized tonic-clonic activity. This has not occurred since 1991. PAST MEDICAL/SURGICAL HISTORY: 1. Seizures. 2. Asthma. 3. Depression. 4. Anxiety. 5. Gastroesophageal reflux disease. 6. Left rotator cuff repair. 7. Left leg debridement related to accident. 8. Traumatic brain injury. MEDICATIONS: 1. Albuterol nebulizers t.i.d. 2. Topiramate 200 mg PO b.i.d. 3. Acetazolamide 250 mg PO b.i.d. 4. Divalproex ER 500 mg PO q.i.d. 5. Singulair 10 mg PO daily. 6. Cephalexin 500 mg PO q6 hours. 7. Omeprazole 20 mg PO daily. 8. Cyclobenzaprine 5 mg PO b.i.d. 9. Enalapril 10 mg PO daily. 10. Citalopram 40 mg PO daily. 11. Nortriptyline 75 mg PO b.i.d. 12. Simvastatin 20 mg PO daily. ALLERGIES: No known allergies. FAMILY HISTORY: There is no known family history of neurologic disease or illness similar to the patient's. SOCIAL HISTORY: The patient is single. He lives alone. He is on disability. He has a special education high school diploma. He denies alcohol, tobacco, or recreational drugs. REVIEW OF SYSTEMS: All systems negative except as per the history of present illness and those listed below. General: Fever. HEUM: Arthritis. Psychiatric: Depression, anxiety. Neuro: Loss of consciousness, pain, falls, confusion. PHYSICAL EXAMINATION: Vital Signs: Blood pressure 146/93, heart rate 88, respirations 20, temperature 36.4. Constitutional: General; well-appearing, well-nourished, pleasant, comfortable, mood is anxious. HEENT and Neck: Normocephalic, atraumatic. Conjunctivae clear. Neck full range of motion without tenderness. Chest: Cardiovascular; regular rate and rhythm. No murmurs or gallops. Lungs: Pulmonary; lungs clear to auscultation. Abdomen: Soft, nontender, and nondistended. Extremities: Pulses intact. No edema. Skin: Left lower leg is purple. Has some open sores. Neurologic: Mental status; alert and oriented times four. Calculations good. Presidents good to Obama. Language; fluent speech. Follows commands. Cranial nerves II-XII; visual argueta full. Pupils are equal, round, and reactive to light, 4/4 to 2/2. Extraocular movements full without nystagmus. Pursuits and saccades normal. V1 through 3 intact to light touch. Face symmetric with normal strength. Hearing intact bilaterally. Palate upgoing bilaterally. Neck muscles strong. Tongue midline. No dysarthria. Motor strength is 5 out of 5 throughout. No drift. Normal tone. Fine-finger movements are slow bilaterally. There is a mild essential tremor. Sensation is intact to light touch. Coordination; [id number] is mildly dysmetric. Gait and arm swing is normal. Reflexes are symmetric and 2+ throughout. LABORATORY AND X-RAY DATA: Past studies - April of 2008: Brain magnetic resonance scan showed right mesiotemporal sclerosis and focal encephalomalacia and gliosis in the right lateral post-central gyrus. December of 2008: Video electroencephalogram showed non-epileptic events. May of 2008: Video electroencephalogram with ictal SPECT; non-epileptic events. Ictal and interictal showed no seizure focus. May of 2001 and August of 1999: Routine electroencephalogram were both normal. ASSESSMENT: This is a 47-year-old right-handed man with a history of traumatic brain injury and seizures since [age] years old here for evaluation and characterization of events with question of candidacy for VNS placement. PLAN: 1. Continuous video electroencephalogram. 2. Seizure precautions. 3. Wean antiepileptic drug. 4. Deep venous thrombosis prophylaxis: Ambulate t.i.d. 5. Regular diet. 6. Full code. Reviewed by Gerardo Baird 02/05/2013 10:18 A Dwayne Baird. Electronically Signed By Danial Hightower M.D. 02/11/2013 02:55 P Danial Hightower M.D. [facility] #[id number] Editing MT: TD: 02/04/2013 14:45:00 cc: Almaz Jovel F.N.P. documented in this encounter Plan of Treatment Not on file documented as of this encounter Procedures Procedure Name Priority Date/Time Associated Diagnosis Comments DISCHARGE LABORATORY CUMULATIVE REPORT Routine 02/10/2013 12:00 AM CDT SERUM TROPONIN I Routine 02/09/2013 12:2 2 PM CDT SERUM TROPONIN I Routine 02/08/2013 11:0 1 PM CDT ELECTROCARDIOGRAPHY (ECG) 02/08/2013 ELECTROCARDIOGRAPHY (ECG) 02/08/2013 documented in this encounter Results * Discharge Laboratory Cumulative Report (02/10/2013 12:00 AM CDT) 02/10/2013 Narrative HISTORICAL RESULTS - 02/10/2013 7:17 PM CDT ?[facility] ?Department of Laboratories ? [address] [facility] [address] ? [place] [address] Patient Name: ??REJI BRANCH Med Rec Number: [id number] Fin Number: ?[id number] Date: ?1965 Sex/Age: ? Male 47 years Admit Date: ?02/04/2013 Discharge Date: 02/10/2013 Doctor: ?Danial Hightower Facility: ?[facility] Location: ?[id number] Chart Printed: 02/10/2013 19:17 ?? * Abnormal ?? C Critical ?? f Footnote ?? ^ Corrected ?? L Low ?? H High ? i Interp Data ?? @ Reference Lab ?Chart Type:Cumulative ? CARDIAC PROTEINS ?Test: Troponin I i ? Reference: [0.00-0.24] ? Units: ng/mL 02/09/2013 ?? 12:22:00 ?? <0.07 02/08/2013 ?? 23:01:00 ?? <0.07 02/08/2013 23:01:00 Troponin I: Interpretive Data Normal Range: <0.07 [...] interpretive data was last revised on 2007. us Historical Provider LAB BLOOD ORDERABLES Adeline miller Result HISTORICAL RESULTS * Serum troponin I (02/09/2013 12:22 PM CDT) Troponin I <0.07 0.00 - 0.24 ng/ml [...] data was last revised on 2007. Serum 02/09/2013 12:2 2 PM CDT Jacobo Whitt MD LAB BLOOD ORDERABLES Final Result HISTORICAL RESULTS * Serum troponin I (02/08/2013 11:01 PM CDT) Troponin I <0.07 0.00 - 0.24 ng/ml [...] data was last revised on 2007. Serum 02/08/2013 11:0 1 PM CDT Result [facility] Sergey Santiago MD LAB BLOOD ORDERABLES Adeline l Result HISTORICAL RESULTS * ELECTROCARDIOGRAPHY (ECG) (02/08/2013) Narrative 02/08/2013 Ordered by an unspecified provider. Historical Provider ECG ORDERABLES Final Res ult * ELECTROCARDIOGRAPHY (ECG) (02/08/2013) Narrative 02/08/2013 Ordered by an unspecified provider. 

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
--- OUTSIDE RECORDS SUMMARY | 2024-05-24 02:11 | XMS_ITS | Encounter Summary ---
Author Organization [facility] Facility Care Team Providers Care [employer] Jointer Name Role Phone Unavailable Primary Care Provider Unavailabl e Encounter Details Date Type Department Care Team (Latest Contact Info) Description 08/22/2009 8:53 AM CDT - 08/22/2009 12:06 PM CDT [facility] [address] [place] [address] Abdominal pain of other specified site; Backache; Essential hypertension; Pure hypercholesterolemia Social History Tobacco Use Types Packs/Day Years Used Date Smoking Tobacco: Never Assessed Sex and Gender Information Value Date Recorded Sex Assigned at Not on file 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
--- OUTSIDE RECORDS SUMMARY | 2024-05-24 02:22 | XMS_ITS | Encounter Summary ---
Author Organization [facility] Address [address] [place] [address] Care Team Providers Care Sprayer Machine Name Role Phone Sergey Wilson MD Primary Care Provider [phone] Reason for Visit * Reason Comments Syncope pt at [facility] s yncopal episodes; responsive when EMS arrived; hx HTN, diabetes,and epilepsy Encounter Details Date Type Department Care Team (Late st Contact Info) Description 05/25/2021 7:44 PM WORK FORCE ADVISOR - 05/25/2021 10:18 PM WORK FORCE ADVISOR Emergency ER at [address] [address] Manuel Del Castillo MD Need updated address Syncope and collapse (Primary Dx) Discharge Disposition: Home or Self Care Social History Tobacco Use Types Packs/Day Years Used Date Smoking Tobacco: Never Smokeless Tobacco: Never Alcohol Use Standard Drinks/Week Comments Never 0 (1 standard drink = 0.6 oz pur e alcohol) AUDIT-C Answer Date Recorded Q1: How often do you have a drink containing alc ohol? Never 12/02/2019 Average Number of Drinks Not on file 020 Frequency of Binge Drinking Not on file 11/12 Sex and Gender Information Value Date Recorded Sex Assigned at Not on file Gender Identity Male 05/25/2021 9:36 PM WORK FORCE ADVISOR Sexual Orientation Not on file documented as of this encounter Last Filed Vital Signs Vital Sign Reading Time Taken Comments Blood Pressure 131/86 05/25/2021 8:45 PM WORK FORCE ADVISOR Pulse 82 05/25/2021 7:49 PM WORK FORCE ADVISOR Temperature 36.9 ??C (98.5 ??F) 05/25/2021 7:49 PM CS T Respiratory Rate 19 05/25/2021 7:49 PM WORK FORCE ADVISOR Oxygen Saturation 95% 05/25/2021 8:45 PM WORK FORCE ADVISOR Inhaled Oxygen Concentration - - Weight - - Height 177.8 cm (5' 10 ) 05/25/2021 7:49 PM WORK FORCE ADVISOR Body Mass Index - - documented in this encounter Discharge Instructions * Attachments The following attachments cannot be sent through Care Everywhere. * Syncope (AfterCare(R) Instructions(ER/ED)) (Surinamese) documented in this encounter Medications at Time of Discharge Medication Sig Dispensed Refills Start Date End Date acetaminophen (TYLENOL) 500 MG capsule Take 1 (one) capsule by mouth every 4 hours as needed for Fever or Pain 10 capsule 09/25/2020 lidocaine (LIDODERM) 5 % patch Apply 1 (one) patch to skin once daily 12 patch 09/25/2020 documented as of this encounter ED Notes * Becca Arias RN - 05/25/2021 10:16 PM CST Patient verbalizes understanding of discharge instructions, follow up instructions, medication instructions, and return instructions. All questions and concerns addressed. IV removed. Patient ambulates steadily out of the ED in NAD. FORCE ADVISOR * Manuel Del Castillo MD - 05/25/2021 9:09 PM CST [place] [id number] [facility] EMERGENCY DEPARTMENT History Chief Complaint Patient presents with ??? Syncope pt at [facility] syncopal episodes; responsive when EMS arrived; hx HTN, diabetes,and epilepsy 56 yo M was eating at a [employer] started to feel nauseous and then passed out reportedly for 10minutes mild confusion post the episode. No headache, chest or abdominal pain. No fever, cough, congestion. No new meds. No recent travel, surgeries hospitalizations. No swelling in his legs or leg pain. Patient with prior hx of seizures Past Medical History: Diagnosis Date ??? History of loop recorder ??? Seizures pt reported ??? Speech abnormality speech impedement; pt reported Past Surgical History: Procedure Laterality Date ??? Brain Surgery/Procedure 2012 No family history on file. Social History Socioeconomic History ??? Marital status: Single Spouse name: Not on file ??? Number of children: Not on file ??? Years of education: Not on file ??? Highest education level: Not on file Occupational History ??? Not on file Tobacco Use ??? Smoking status: Never Smoker ??? Smokeless tobacco: Never Used Vaping Use ??? Vaping Use: Never used Substance and Sexual Activity ??? Alcohol use: Never ??? Drug use: Never ??? Sexual activity: Not on file Other Topics Concern ??? Not on file Social History Narrative ??? Not on file Social Determinants of Health Financial Resource Strain: Not on file Food Insecurity: Not on file Transportation Needs: Not on file Physical Activity: Not on file Stress: Not on file Social Connections: Not on file Intimate Partner Violence: Not on file Housing Stability: Not on file Review of Systems Review of Systems Constitutional: Negative for fever. HENT: Negative for congestion. Eyes: Negative for blurred vision. Respiratory: Negative for cough and shortness of breath. Cardiovascular: Negative for chest pain. Gastrointestinal: Positive for nausea. Negative for abdominal pain and constipation. Genitourinary: Negative for dysuria. Musculoskeletal: Negative for myalgias. Skin: Negative for rash. Neurological: Positive for loss of consciousness. Negative for sensory change and weakness. All other systems reviewed and are negative. Physical Exam BP 131/86 Pulse 82 Temp 98.5 ??F (36.9 ??C) (Oral) Resp 19 Ht 1.778 m (5' 10 ) SpO2 95% BMI 33.00 kg/m?? Physical Exam Vitals and nursing note reviewed. Constitutional: General: He is not in acute distress. Appearance: Normal appearance. He is well-developed. HENT: Head: Normocephalic and atraumatic. Mouth/Throat: Mouth: Mucous membranes are moist. Pharynx: No oropharyngeal exudate. Eyes: General: No scleral icterus. Pupils: Pupils are equal, round, and reactive to light. Neck: Thyroid: No thyromegaly. Cardiovascular: Rate and Rhythm: Normal rate and regular rhythm. Heart sounds: Normal heart sounds. No murmur heard. Pulmonary: Effort: Pulmonary effort is normal. No respiratory distress. Breath sounds: Normal breath sounds. Abdominal: General: There is no distension. Palpations: Abdomen is soft. Tenderness: There is no abdominal tenderness. There is no guarding. Musculoskeletal: General: No deformity. Normal range of motion. Cervical back: Normal range of motion and neck supple. No rigidity. Skin: General: Skin is warm and dry. Findings: No rash. Neurological: Mental Status: He is alert and oriented to person, place, and time. Cranial Nerves: No cranial nerve deficit. Sensory: No sensory deficit. Motor: No weakness or abnormal muscle tone. Coordination: Coordination normal. Psychiatric: Mood and Affect: Mood normal. Behavior: Behavior normal. Medications Current Outpatient Medications Medication Sig Dispense Refill ??? acetaminophen (TYLENOL) 500 MG capsule Take 1 (one) capsule by mouth every 4 hours as needed for Fever or Pain 10 capsule 0 ??? lidocaine (LIDODERM) 5 % patch Apply 1 (one) patch to skin once daily 12 patch 0 Procedures Procedures Lab/SPO2 Interpretation Hospital Encounter on 05/25/21 CBC W AUTO DIFFERENTIAL Result Value Ref Range WBC 7.6 4.4 - 10.7 x10E9/L WBC Corrected RBC 4.78 3.80 - 5.40 x10E12/L Hemoglobin 13.6 12.0 - 17.6 gm/dL Hematocrit 42.3 35.2 - 51.7 % MCV 88.5 80.7 - 98.3 fl MCH 28.5 26.7 - 34.0 pg MCHC 32.2 30.8 - 35.9 gm/dL Platelet Count 231 153 - 416 x10E9/L RDW-CV 13.8 12.1 - 14.9 % MPV 9.4 9.4 - 12.9 fl Neutrophils % 34.4 (L) 44.0 - 73.0 % Lymphocytes % 48.8 (H) 20.0 - 43.0 % Monocytes % 11.2 5.0 - 13.0 % Eosinophils % 3.2 0.0 - 6.0 % Basophils % 0.5 0.0 - 2.0 % Immature Granulocytes 1.9 (H) 0 - 1 % Neutrophil Absolute 2.60 2.01 - 7.14 x10E9/L Lymphocytes Absolute 3.69 1.07 - 3.94 x10E9/L Monocytes Absolute 0.85 0.26 - 1.07 x10E9/L Eosinophils Absolute 0.24 0 - 0.47 x10E9/L Basophils Absolute 0.04 0 - 0.08 x10E9/L Immature Granulocytes Absolute 0.14 (H) 0.00 - 0.06 x10E9/L nRBC Auto 0 /100 WBC COMPREHENSIVE METABOLIC PANEL Result Value Ref Range Glucose 266 (H) 70 - 105 mg/dL Sodium 137 136 - 145 mmol/L Potassium 4.0 3.5 - 5.1 mmol/L Chloride 105 98 - 107 mmol/L CO2 20 (L) 23 - 31 mmol/L Calcium 9.4 8.4 - 10.4 mg/dL Anion Gap 12 8 - 18 mmol/L BUN 18 8.4 - 25.7 mg/dL Creatinine 0.98 0.72 - 1.25 mg/dL Alkaline Phosphatase 84 40 - 150 U/L ALT 14 0 - 61 U/L AST 16 5 - 34 U/L Protein Total 7.1 6.4 - 8.3 gm/dL Albumin 3.9 3.5 - 5.2 gm/dL Bilirubin Total 0.3 0.2 - 1.2 mg/dL eGFR by MDRD >60 >60 mL/min/1.73m2 eGFR by MDRD >60 >60 mL/min/1.73m2 TROPONIN I Result Value Ref Range Troponin I <0.010 <0.038 ng/mL GLUCOSE - POINT OF CARE Result Value Ref Range Glucose WB/POC 267 (H) 70 - 106 mg/dL Specimen Type Cap Fingerstick No orders to display Progress Notes ED Course Clinical Impressions as of 05/25/212207 Syncope and collapse Medical Decision Making I have reviewed the: Nursing Notes, Vitals. I have interpreted the following results: Labs, 12 Lead EKG (ecg as interpreted by me nsr 75 bpm 1st degree av block, lafb, normal qt, no acute st/t changes). patient with syncope vs seizure, ecg reassuring, not anemic, electrolytes wnl, no symptoms to suggest acs or pe. I will dc him home. He has a loop recorder. I told him to discuss with pcp to see if any concerning events on monitoring. Return if symptoms worsen Orders Placed This Encounter ??? CBC W AUTO DIFFERENTIAL ??? COMPREHENSIVE METABOLIC PANEL ??? TROPONIN I ??? EKG 12-LEAD Dispo: dc home Dx: ICD-10-CM 1. Syncope and collapse R55 EKG 12-LEAD Follow-up Information Schedule an appointment as soon as possible for a visit with Sergey Wilson MD. Specialty: Internal Medicine Contact information: [address] [facility] [id number] FORCE ADVISOR * Miranda Velazquez RN - 05/25/2021 7:54 PM CST Pt reports to ED with c/o syncopal episode at [facility]. Per EMS pt called them and upon arrivalpt was responsive. Pt reports intermittently feels dizzy or short of breath. Pt denies symptoms at this time. Pt reports being medication compliant and has hx of diabetes, HTN, and epilepsy. Pt A&Ox4, denies chest pain, dizziness, nausea, vomiting, diarrhea, fevers, headache, blurred vision. Pt's VSS FORCE ADVISOR * Miranda Velazquez RN - 05/25/2021 7:52 PM CST Bedside glucose 267 FORCE ADVISOR * Rochelle Chan RN - 05/25/2021 7:44 PM CST Bed: 13 Expected date: Expected time: Means of arrival: Comments: Medic [id number] please weigh FORCE ADVISOR documented in this encounter Plan of Treatment Not on file documented as of this encounter Procedures Procedure Name Priority Date/Time Associated Diagnosis Comments EKG 12-LEAD STAT 05/25/2021 9:07 PM WORK FORCE ADVISOR Syncope and collapse TROPONIN I STAT 05/25/2021 9:02 PM WORK FORCE ADVISOR CBC W AUTO DIFFERENTIAL STAT 05/25/2021 9:02 PM WORK FORCE ADVISOR COMPREHENSIVE METABOLIC PANEL STAT 05/25/2021 9:02 PM WORK FORCE ADVISOR GLUCOSE - POINT OF CARE Routine 05/25/2021 7:52 PM WORK FORCE ADVISOR documented in this encounter Results * EKG 12-LEAD (05/25/2021 9:07 PM WORK FORCE ADVISOR) Pathologist [facility] Ventricular Rate 75 BPM [facility] MUSE Atrial Rate 75 BPM [facility] MUSE P-R Interval 212 ms [facility] QRS Duration ms 118 ms [facility] Q-T Interval ms 418 ms [facility] QTC Calculation (Bezet) 466 ms [facility] MUSE Calculated P [place] 53 degrees [facility] MUSE Calculated R [place] -64 degrees [facility] MUSE Calculated T [place] 46 degrees [facility] Interpretation EKG Sinus rhythm with 1st degree A-V block Left anterior fascicular block Abnormal ECG No previous ECGs available Confirmed by ALIE LR ([id number]) on 05/26/2021 5:22:57 PM [facility] MUSE 05/25/2021 9:07 PM WORK FORCE ADVISOR 05/26/2021 5:22 PM WORK FORCE ADVISOR Manuel Del Castillo MD ECG ORDERABLES Performing Organization Address [facility]/ZIP Co de Phone Number [facility] * TROPONIN I (05/25/2021 9:02 PM WORK FORCE ADVISOR) Pathologist [facility] Troponin I <0.010 <0.038 ng/mL 05/25/2021 9:31 PM [facility] Blood BLOOD SPECIMEN / Unknown Venipuncture / Unknown 05/25/2021 9:02 PM WORK FORCE ADVISOR 05/25/2021 9:02 PM WORK FORCE ADVISOR Manuel Del Castillo MD LAB - CHEMISTRY ORDE RABKIANA [facility] [address] [place] [address] * (ABNORMAL) COMPREHENSIVE METABOLIC PANEL (05/25/2021 9:02 PM WORK FORCE ADVISOR) Pathologist [facility] Glucose 266(H) 70 - 105 mg/dL 05/25/2021 9:24 PM [facility] Sodium 137 136 - 145 mmol/L 05/25/2021 9:24 PM [facility] Potassium 4.0 3.5 - 5.1 mmol/L 05/25/2021 9:24 PM [facility] Chloride 105 98 - 107 mmol/L 05/25/2021 9:24 PM [facility] CO2 20(L) 23 - 31 mmol/L 05/25/2021 9:24 PM [facility] Calcium 9.4 8.4 - 10.4 mg/dL 05/25/2021 9:24 PM [facility] Anion Gap 12 8 - 18 mmol/L 05/25/2021 9:24 PM [facility] BUN 18 8.4 - 25.7 mg/dL 05/25/2021 9:24 PM [facility] Creatinine 0.98 0.72 - 1.25 mg/dL 05/25/2021 9:24 PM [facility] Alkaline Phosphatase 84 40 - 150 U/L 05/25/2021 9:24 PM [facility] ALT 14 0 - 61 U/L 05/25/2021 9:24 PM [facility] AST 16 5 - 34 U/L 05/25/2021 9:24 PM [facility] Protein Total 7.1 6.4 - 8.3 gm/dL 05/25/2021 9:24 PM [facility] Albumin 3.9 3.5 - 5.2 gm/dL 05/25/2021 9:24 PM [facility] Bilirubin Total 0.3 0.2 - 1.2 mg/dL 05/25/2021 9:24 PM [facility] eGFR by MDRD >60 >60 mL/min/1.7 3m2 05/25/2021 9:24 PM [facility] eGFR by MDRD >60 >60 mL/min/1.7 3m2 05/25/2021 9:24 PM [facility] Blood BLOOD SPECIMEN / Unknown Venipuncture / Unknown 05/25/2021 9:02 PM WORK FORCE ADVISOR 05/25/2021 9:02 PM [facility] Manuel Del Castillo MD LAB - CHEMISTRY JOSE BERRY [facility] Organization Address City/State/ZIP Co de Phone Number [facility] [address] [place] [address] * (ABNORMAL) CBC W AUTO DIFFERENTIAL (05/25/2021 9:02 PM [facility]) WBC 7.6 4.4 - 10.7 x10E9/L 05/25/2021 9:04 PM [facility] WBC Corrected 05/25/2021 9:04 PM [facility] RBC 4.78 3.80 - 5.40 x10E12/L 05/25/2021 9:04 PM [facility] Hemoglobin 13.6 12.0 - 17.6 gm/dL 05/25/2021 9:04 PM [facility] Hematocrit 42.3 35.2 - 51.7 % 05/25/2021 9:04 PM [facility] MCV 88.5 80.7 - 98.3 fl 05/25/2021 9:04 PM [facility] MCH 28.5 26.7 - 34.0 pg 05/25/2021 9:04 PM [facility] MCHC 32.2 30.8 - 35.9 gm/dL 05/25/2021 9:04 PM [facility] Platelet Count 231 153 - 416 x10E9/L 05/25/2021 9:04 PM [facility] RDW-CV 13.8 12.1 - 14.9 % 05/25/2021 9:04 PM [facility] MPV 9.4 9.4 - 12.9 fl 05/25/2021 9:04 PM [facility] Neutrophils % 34.4(L) 44.0 - 73.0 % 05/25/2021 9:04 PM [facility] Lymphocytes % 48.8(H) 20.0 - 43.0 % 05/25/2021 9:04 PM [facility] Monocytes % 11.2 5.0 - 13.0 % 05/25/2021 9:04 PM [facility] Eosinophils % 3.2 0.0 - 6.0 % 05/25/2021 9:04 PM [facility] Basophils % 0.5 0.0 - 2.0 % 05/25/2021 9:04 PM [facility] Immature Granulocytes 1.9(H) 0 - 1 % 05/25/2021 9:04 PM [facility] Neutrophil Absolute 2.60 2.01 - 7.14 x10E9/L 05/25/2021 9:04 PM [facility] Lymphocytes Absolute 3.69 1.07 - 3.94 x10E9/L 05/25/2021 9:04 PM [facility] Monocytes Absolute 0.85 0.26 - 1.07 x10E9/L 05/25/2021 9:04 PM [facility] Eosinophils Absolute 0.24 0 - 0.47 x10E9/L 05/25/2021 9:04 PM [facility] Basophils Absolute 0.04 0 - 0.08 x10E9/L 05/25/2021 9:04 PM [facility] Immature Granulocytes Absolute 0.14(H) 0.00 - 0.06 x10E9/L 05/25/2021 9:04 PM [facility] nRBC Auto 0 /100 WBC 05/25/2021 9:04 PM [facility] Blood BLOOD SPECIMEN / Unknown Venipuncture / Unknown 05/25/2021 9:02 PM WORK FORCE ADVISOR 05/25/2021 9:02 PM WORK FORCE ADVISOR Manuel Del Castillo MD LAB - HEMATOLOGY ORD ERABLES [facility] [address] [place] [address] * (ABNORMAL) GLUCOSE - POINT OF CARE (05/25/2021 7:52 PM WORK FORCE ADVISOR) [facility] Glucose WB/POC 267(H) 70 - 106 mg/dL 05/25/2021 7:58 PM WORK FORCE ADVISOR [facility] Specimen Type Cap Fingerstick 2021 7:58 PM [facility] Blood BLOOD SPECIMEN / Unknown 05/25/2021 7:52 PM WORK FORCE ADVISOR 05/25/2021 7:58 PM WORK FORCE ADVISOR Provider Unknown LAB - POINT OF CARE ORDERABLES [facility] [address] [place] [address] documented in this encounter Visit Diagnoses Diagnosis Syncope and collapse- Primary documented in this encounter Care Teams Sprayer Machine Relationship Specialty Start Date End Date Sergey Wilson MD PCP - General Internal Medicine 09/25/20 documented as of this encounter
--- OUTSIDE RECORDS SUMMARY | 2024-05-24 02:22 | XMS_ITS | Encounter Summary ---
Author Organization [facility] Address [address] [place] [address] Care Team Providers Care Radiotelegrapher Name Role Phone Unavailable Primary Care Provider Unavailabl e Reason for Visit * Reason Comments Syncope Patient presents to ED for syncopal episode at [facility]. Patient states that he felt funny before it happened. 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 Sexual Orientation Not on file documented as of this encounter Last Filed Vital Signs Vital Sign Reading Time Taken Comments Blood Pressure 101/63 01/15/2020 1:31 AM CDT Pulse 66 01/14/2020 8:30 PM CDT Temperature 36.9 ??C (98.4 ??F) 01/14/2020 7:12 PM CD T Respiratory Rate 16 01/14/2020 8:30 PM CDT Oxygen Saturation 97% 01/15/2020 1:31 AM CDT Inhaled Oxygen Concentration - - Weight 104.3 kg (230 lb) 01/14/2020 7:12 PM CDT Height 170.2 cm (5' 7 ) 01/14/2020 7:12 PM CDT Body Mass Index 36.02 01/14/2020 7:12 PM CDT documented in this encounter Discharge Instructions * Discharge Instructions* Smith Wagner MD - 01/15/2020 1:42 AM CDT Low Cost Clinics (You may qualify for free service) If you are NOT a legal resident, citizen or refugee and don???t have health insurance you can go tothe following clinics: [facility] [address] [place] [address] Appointments: [phone] [facility], [facility] [address] [place] [address] [facility] [address] [address] Appointments: [phone] [facility] [address] [place] [address] [facility] [address] [place] [address] [facility] [address] [place], [place] [id number] [facility] [address] [place] [address] [facility] [address] [place] [address] [facility] [address] [place] [address] Appointments: [phone] [facility] - [address] [address] without health insurance and you are not a citizen, refugee or legal resident yet? You may qualify to receive ???Medicaid for Women?? and it is free. For more information, call one of the Locations listed above If your child was born in the [facility] [[email or web address]] or is a legal resident for more than 5 years, he/she may be eligible for free or low cost health insurance: MC+: If the child is not eligible, you can still bring him/her to the clinics listed above to receive medical check-ups, shots and treatments For information about low cost medicines, call: s * Attachments The following attachments cannot be sent through Care Everywhere. * Syncope (General Information) (Singaporean) documented in this encounter ED Notes * Mercy Magaña RN - 01/15/2020 2:00 AM CDT Pt discharged home from ED. Pt verbalized understanding of discharge instructions, medications, andfollow-up care. Pt A&O x4. No other questions at this time. Pt ambulated out of ED with steady gait. * Smith Wagner MD - 01/15/2020 1:39 AM CDT 1:39 AM Pt signed out to myself by Dr. Petty to f/u CT head. Plan to d/c if CT head was benign. Pt indicates he has been through this several times in the past. He states he is back to his usual stateof health. He is hemodynamically stable and neurologically intact. BP 117/77 Pulse 66 Temp 98.4 ??F (36.9 ??C) (Oral) Resp 16 Ht 1.702 m (5' 7 ) Wt 104.3 kg(230 lb) SpO2 95% BMI 36.02 kg/m?? PRELIMINARY REPORT [facility] [place] Patient Name: REJI BRANCH Age: 54 Patient MR NO: [id number] Date Of : 1965 Referring Doctor: Dr. Petty Accession No: Patient Location: Emergency Department CLINICAL INDICATION: Dr. Petty, ed1 Priors in PACS This is a 54-year-old male presenting to the emergency department for a syncopal episode. Patient was eating at [employer] when he says his right hand began shaking and then he passed out. This was witnessed at [employer]. Did not fall or hit his head. Patient states he has a history of this happening in the past. Also states that he has historyof seizures that have been controlled. He says he has not had a seizure in over 7 years. He says heis currently not on any medications for that. Patient states the symptoms of loss of consciousness or usually related to his stress. Patient denies any chest pain or shortness of breath, denies any nausea or vomiting, denies any fevers or chills. He does state that he has a history of asthma disorder. Also states that he has some subjective fevers yesterday. CSN: [id number] Gray CONTRAST: PROCEDURE DATE: CT HEAD 1. No acute intracranial hemorrhage, mass, or midline shift appreciated. No acute skull fractures. 2. Atrophy. Scattered white matter changes; nonspecific, may include microangiopathic change,age-indeterminate lacunae, and encephalomalacia. 3. Postoperative changes, with a remote right-sided craniotomy, with some subjacent encephalomalacia most pronounced in the right temporal lobe. 4. Grossly clear visualized paranasal sinuses and mastoids. To TALK to Radiologist [phone] Fernando Can M.D. Electronically Signed Date Of Exam Request:01/15/2020 12:18:43 AM CDT Date & Time Of Report: 01/15/2020 12:23:51 AM CDT Patient Name:REJI BRANCH MR NO:[id number] Accession No: * Mercy Magaña RN - 01/15/2020 1:[address] Wagner at bedside. * Mercy Magaña RN - 01/15/2020 1:00 AM CDT Patient ambulatory to nurses station. Patient requesting update on plan of care. This RN updated patient on plan of care. Patient ambulatory back to room at this time. * Mercy Magaña RN - 01/15/2020 12:05 AM CDT Patient to CT. * Mercy Magaña RN - 01/14/2020 10:00 PM CDT Patient given sack lunch and soda. Patient denies any other needs at this time. Patient resting in stretcher. Patient breathing is equal and unlabored and no acute distress noted.Both bed rails up. Call light within reach. Will continue to monitor. * Mercy Magaña RN - 01/14/2020 8:45 PM CDT This RN at bedside. Patient wanted update on plan of care. This RN told patient we are waiting for patient to get a CT of his head. Patient asking when this will be done. This RN told patient that heis on the list to have CT but unsure of time frame at this time, but will be done as soon as possible. Patient stating well I'm not going to sit here all night! . This RN explained to patient that CT would be done as soon as available, patient still stating well I'm not going to just sit here allnight . * Mercy Magaña RN - 01/14/2020 7:30 PM CDT This RN at bedside. Patient states that he needs to urinate. Patient given the option to use the urinal due to being a fall risk. Patient ad ament that he wants to walk to bathroom and begins to takeoff all monitoring equipment. Patient ambulatory to bathroom with steady gait. * Aleyda Petty, - 01/14/2020 7:12 PM CDT [facility] [place] [id number] [facility] EM[facility]GENCY [facility]PARTMENT History No chief complaint on file. This is a 54-year-old male presenting to the emergency department for a syncopal episode. Patient was eating at [employer] when he says his right hand began shaking and then he passed out. This was witnessed at [employer]. Did not fall or hit his head. Patient states he has a history of this happening in the past. Also states that he has history of seizures that have been controlled. He says hehas not had a seizure in over 7 years. He says he is currently not on any medications for that. Patient states the symptoms of loss of consciousness or usually related to his stress. Patient denies any chest pain or shortness of breath, denies any nausea or vomiting, denies any fevers or chills. Hedoes state that he has a history of asthma disorder. Also states that he has some subjective feversyesterday. Past Medical History: Diagnosis Date ??? Seizures pt reported ??? Speech abnormality speech impedement; pt reported No past surgical history on file. No family history on file. Social History Socioeconomic History ??? Marital status: Single Spouse name: Not on file ??? Number of children: Not on file ??? Years of education: Not on file ??? Highest education level: Not on file Occupational History ??? Not on file Social Needs ??? Financial resource strain: Not on file ??? Food insecurity Worry: Not on file Inability: Not on file ??? Transportation needs Medical: Not on file Non-medical: Not on file Tobacco Use ??? Smoking status: Never Smoker ??? Smokeless tobacco: Never Used Substance and Sexual Activity ??? Alcohol use: Never Frequency: Never ??? Drug use: Never ??? Sexual activity: Not on file Lifestyle ??? Physical activity Days per week: Not on file Minutes per session: Not on file ??? Stress: Not on file Relationships ??? Social connections Talks on phone: Not on file Gets together: Not on file Attends restorationist service: Not on file Active member of club or organization: Not on file Attends meetings of clubs or organizations: Not on file Relationship status: Not on file ??? Intimate partner violence Fear of current or ex partner: Not on file Emotionally abused: Not on file Physically abused: Not on file Forced sexual activity: Not on file Other Topics Concern ??? Not on file Social History Narrative ??? Not on file Review of Systems Review of Systems Constitutional: Negative. HENT: Negative. Eyes: Negative. Respiratory: Negative. Cardiovascular: Negative. Gastrointestinal: Negative. Genitourinary: Negative. Musculoskeletal: Negative. Skin: Negative. Neurological: Positive for seizures and weakness. Psychiatric/Behavioral: Negative. All other systems reviewed and are negative. Physical Exam There were no vitals taken for this visit. Physical Exam Vitals signs and nursing note reviewed. HENT: Head: Normocephalic and atraumatic. Mouth/Throat: Mouth: Mucous membranes are moist. Eyes: Extraocular Movements: Extraocular movements intact. Pupils: Pupils are equal, round, and reactive to light. Neck: Musculoskeletal: Normal range of motion and neck supple. Cardiovascular: Rate and Rhythm: Normal rate and regular rhythm. Pulses: Normal pulses. Heart sounds: Normal heart sounds. Pulmonary: Effort: Pulmonary effort is normal. Breath sounds: Normal breath sounds. Abdominal: General: Abdomen is flat. Bowel sounds are normal. Palpations: Abdomen is soft. Musculoskeletal: Normal range of motion. Skin: General: Skin is warm and dry. Capillary Refill: Capillary refill takes less than 2 seconds. Neurological: General: No focal deficit present. Mental Status: He is alert and oriented to person, place, and time. Mental status is at baseline. Psychiatric: Mood and Affect: Mood normal. Behavior: Behavior normal. Medications No current outpatient medications on file. Procedures Procedures Lab/SPO2 Interpretation No results found for this visit on 01/14/20. No orders to display Progress Notes Will check basic labs, EKG, CT scan. Patient is back to his baseline mental status. Will need to evaluate for neurogenic versus cardiogenic syncope. Patient appears to have had similar episodes in the past. He does see a neurologist at outlying facility. Patient's EKG shows sinus rhythm with a rate of 73, pr interval 220, QRS 114, QTC 412, QTC 453. Right bundle-branch block. No significant ischemic changes noted. Patient's lab workup is unremarkable. Currently awaiting CT scan for further disposition. Patient not wanting to stay. patient is signed out to nighttime physician awaiting CT scan. ED Course Clinical Impressions as of Jan 13 1949 Syncope and collapse Medical Decision Making I have reviewed the: Previous Chart, Nursing Notes, Vitals. I have interpreted the following results: Labs, 12 Lead EKG, CT Scans and Oxygen Saturation. No orders of the defined types were placed in this encounter. * Mercy Magaña RN - 01/14/2020 7:10 PM CDT Patient presents to ED for a syncopal episode. Patient states that he was at [employer] and then passed out . Patient denies hitting his head or falling. When asked how patient felt before syncopal episode, patient states I felt funny, that how I always feel . Patient A&Ox4. Patient breathing is equal and unlabored and no acute distress noted. Patient attached to monitors and VSS. Will continue to monitor. Patient states that he has a history of seizures and recurrent syncopal episodes. documented in this encounter Plan of Treatment Not on file documented as of this encounter Procedures Procedure Name Priority Date/Time Associated Diagnosis Comments CT HEAD WO CONTRAST STAT 01/15/2020 1 2:17 AM CDT Syncope and collapse TROPONIN I STAT 01/14/2020 7:48 PM CDT CBC W AUTO DIFFERENTIAL STAT 01/14/2020 7:48 PM CDT BASIC METABOLIC PANEL (CALCIUM TOTAL) STAT 01/14/2020 7:48 PM CDT LACTIC ACID BLOOD STAT 01/14/2020 7:4 8 PM CDT EKG 12-LEAD STAT 01/14/2020 7:41 PM CDT Syncope and collapse documented in this encounter Results * CT HEAD NON CONTRAST - intracranial hemorrhage (01/15/2020 12:17 AM CDT) Anatomical Region Laterality Modality Head Computed Tomogra phy 01/15/2020 7:05 AM CDT Impressions 01/15/2020 7:08 AM CDT Right temporal craniotomy with associated right temporal lobe encephalomalacia. Atrophy beyond expected for age. No intracranial hemorrhage or edema. No acute intracranial process evident. *Reading Radiologist: Claudio Mcnamara on 01/15/2020 at 7:08 AM Narrative 01/15/2020 7:[address] Brain Without Contrast Indication: Syncopal episode. Was eating at [employer] this can be gained shaking and then he passed out. 4-year-old male Comparison: December 02, 2019 Technique: Axial images of the brain were obtained without contrast and reconstructions performed. Preliminary report provided by [facility]. Findings: There is right temporal lobe encephalomalacia consistent with the prior craniotomy. This involves the right medial temporal lobe. Small low-density area left parietal possibly an old infarct. There is atrophy beyond expected for age. No obstructive hydrocephalus. The fourth ventricle is midline. The brainstem and suprasellar cisterns are normal. No intra-or extra-axial hemorrhage, mass displacement, or edema. No dominant scalp soft tissue swelling. The imaged paranasal sinuses and mastoid air cells are clear. ??The imaged globes and post-septal soft tissues are normal. Procedure Note Claudio Mcnamara MD - 01/15/2020 CT Brain Without Contrast Indication: Syncopal episode. Was eating at [employer] this can be gained shaking and then he passed out. 4-year-old male Comparison: December 02, 2019 Technique: Axial images of the brain were obtained without contrast and reconstructions performed. Preliminary report provided by [facility]. Findings: There is right temporal lobe encephalomalacia consistent with the prior craniotomy. This involves the right medial temporal lobe. Small low-density area left parietal possibly an old infarct. There is atrophy beyond expected for age. No obstructive hydrocephalus. The fourth ventricle is midline. The brainstem and suprasellar cisterns are normal. No intra-or extra-axial hemorrhage, mass displacement, or edema. No dominant scalp soft tissue swelling. The imaged paranasal sinuses and mastoid air cells are clear. The imaged globes and post-septal soft tissues are normal. IMPRESSION Right temporal craniotomy with associated right temporal lobe encephalomalacia. Atrophy beyond expected for age. No intracranial hemorrhage or edema. No acute intracranial process evident. *Reading Radiologist: Claudio Mcnamara on 01/15/2020 at 7:08 AM [facility] Ased DO CT ORDERABLES * LACTIC ACID BLOOD (01/14/2020 7:48 PM CDT) [facility] Lactic Acid 1.09 0.5 - 2.2 mmol/L 01/14/2020 8:31 PM CDT [facility] Blood BLOOD SPECIMEN / Unknown Venipuncture / Unknown 01/14/2020 7:48 PM CDT 01/14/2020 8:12 PM CDT [facility] DO LAB - CHEMISTRY ORD ERABLES Performing Organization Address [facility] Co de Phone Number [facility] [address] [place] [phone] * TROPONIN I (01/14/2020 7:48 PM CDT) [facility] Troponin I <0.010 <0.038 ng/mL 01/14/2020 8:42 PM CDT [facility] Blood BLOOD SPECIMEN / Unknown Venipuncture / Unknown 01/14/2020 7:48 PM CDT 01/14/2020 8:08 PM CDT [email or web address] [employer] DO LAB - CHEMISTRY ORD ERABLES Performing Organization Address City/[facility] Co de Phone Number [facility] [address] [place] [address] * (ABNORMAL) CBC W AUTO DIFFERENTIAL (01/14/2020 7:48 PM CDT) [facility] WBC 6.2 4.4 - 10.7 x10E9/L 01/14/2020 8:15 PM CDT [facility] WBC Corrected 01/14/2020 8:15 PM CDT [facility] RBC 4.18 3.80 - 5.40 x10E12/L 01/14/2020 8:15 PM CDT [facility] Hemoglobin 13.1 12.0 - 17.6 gm/dL 01/14/2020 8:15 PM CDT [facility] Hematocrit 41.0 35.2 - 51.7 % 01/14/2020 8:15 PM CDT [facility] MCV 98.1 80.7 - 98.3 fl 01/14/2020 8:15 PM CDT [facility] MCH 31.3 26.7 - 34.0 pg 01/14/2020 8:15 PM CDT [facility] MCHC 32.0 30.8 - 35.9 gm/dL 01/14/2020 8:15 PM CDT [facility] Platelet Count 163 153 - 416 x10E9/L 01/14/2020 8:15 PM CDT [facility] RDW-CV 13.2 12.1 - 14.9 % 01/14/2020 8:15 PM CDT [facility] MPV 9.9 9.4 - 12.9 fl 01/14/2020 8:15 PM CDT [facility] Neutrophils % 40.2(L) 44.0 - 73.0 % 01/14/2020 8:15 PM CDT [facility] Lymphocytes % 45.0(H) 20.0 - 43.0 % 01/14/2020 8:15 PM CDT [facility] Monocytes % 10.0 5.0 - 13.0 % 01/14/2020 8:15 PM CDT [facility] Eosinophils % 3.2 0.0 - 6.0 % 01/14/2020 8:15 PM CDT [facility] Basophils % 0.6 0.0 - 2.0 % 01/14/2020 8:15 PM CDT [facility] Immature Granulocytes 1.0 0 - 1 % 01/14/2020 8:15 PM CDT [facility] Neutrophil Absolute 2.50 2.01 - 7.14 x10E9/L 01/14/2020 8:15 PM CDT [facility] Lymphocytes Absolute 2.80 1.07 - 3.94 x10E9/L 01/14/2020 8:15 PM CDT [facility] Monocytes Absolute 0.62 0.26 - 1.07 x10E9/L 01/14/2020 8:15 PM CDT [facility] Eosinophils Absolute 0.20 0 - 0.47 x10E9/L 01/14/2020 8:15 PM CDT [facility] Basophils Absolute 0.04 0 - 0.08 x10E9/L 01/14/2020 8:15 PM CDT [facility] Immature Granulocytes Absolute 0.06 0.00 - 0.06 x10E9/L 01/14/2020 8:15 PM CDT [facility] nRBC Auto 0 /100 WBC 01/14/2020 8:15 PM CDT [facility] Blood BLOOD SPECIMEN / Unknown Venipuncture / Unknown 01/14/2020 7:48 PM CDT 01/14/2020 8:08 PM CDT Aleyda Contreras Ased DO LAB - HEMATOLOGY OR DERABLES Performing Organization Address City/State/[facility] Co de Phone Number [facility] [address] [place] [address] * (ABNORMAL) BASIC METABOLIC PANEL (CALCIUM TOTAL) (01/14/2020 7:48 PM CDT) Glucose 115(H) 70 - 105 mg/dL 01/14/2020 8:32 PM CDT [facility] Sodium 138 136 - 145 mmol/L 01/14/2020 8:32 PM CDT [facility] Potassium 3.6 3.5 - 5.1 mmol/L 01/14/2020 8:32 PM CDT [facility] Chloride 108(H) 98 - 107 mmol/L 01/14/2020 8:32 PM CDT [facility] CO2 21(L) 23 - 31 mmol/L 01/14/2020 8:32 PM CDT [facility] Calcium 8.5 8.4 - 10.4 mg/dL 01/14/2020 8:32 PM CDT [facility] Anion Gap 9 8 - 16 mmol/L 01/14/2020 8:32 PM CDT [facility] BUN 15 8.4 - 25.7 mg/dL 01/14/2020 8:32 PM CDT [facility] Creatinine 0.99 0.72 - 1.25 mg/dL 01/14/2020 8:32 PM CDT [facility] eGFR by MDRD >60 >60 mL/min/1.7 3m2 01/14/2020 8:32 PM CDT [facility] eGFR by MDRD >60 >60 mL/min/1.7 3m2 01/14/2020 8:32 PM CDT [facility] Blood BLOOD SPECIMEN / Unknown Venipuncture / Unknown 01/14/2020 7:48 PM CDT 01/14/2020 8:08 PM CDT Aleyda Petty DO LAB - CHEMISTRY ORD ERABLES Performing Organization Address City/[facility]/ZIP Co de Phone Number [facility] [address] [place] [phone] * EKG 12-LEAD (01/14/2020 7:41 PM CDT) Ventricular Rate 73 BPM [facility] Atrial Rate 73 BPM [facility] P-R Interval 220 ms [facility] QRS Duration ms 114 ms [facility] Q-T Interval ms 412 ms [facility] QTC Calculation (Bezet) 453 ms [facility] Calculated P Dwight 71 degrees [facility] Calculated R Dwight -64 degrees [facility] Calculated T Dwight 44 degrees [facility] Interpretation EKG Sinus rhythm with 1st degree A-V block Pulmonary disease pattern Right bundle branch block Left anterior fascicular block Bifascicular block Abnormal ECG When compared with ECG of 02-DEC-2019 17:30, (RBBB and left anterior fascicular block) is now Present Confirmed by LUIZ GONZALEZ, SHAINA ([id number]) on 01/16/2020 9:05:12 AM [facility] 01/14/2020 7:41 PM CDT 01/16/2020 9:05 AM CDT Aleyda Petty DO ECG ORDERABLES [facility] documented in this encounter Visit Diagnoses Diagnosis Syncope and collapse documented in this encounter
--- OUTSIDE RECORDS SUMMARY | 2024-05-24 02:22 | XMS_ITS | Encounter Summary ---
Author Organization [facility] Address [address] [place] [address] Care Team Providers Care Application Packager Name Role Phone Sergey Wilson MD Primary Care Provider [phone] Reason for Visit * Reason Comments Syncope Pt BIBEMS from resta urant for passing out. EMS reports he was post-ictal when they arrived, pt denies having a seizure. Pt had brain surgery in 2012 for the tx of seizures. Pt has been getting weaned off of depakote. AxOx4. Encounter Details Date Type Department Care Team (Late st Contact Info) Description 09/25/2020 7:19 PM CDT - 09/25/2020 10:[address] [facility] EMERGENCY DEPARTMENT [address] [place] [id number] Travis Bone MD [address] [place] [address] [place] [id number] Seizure-like activity (HCC); Hip pain Discharge Disposition: Home or Self Care Social [...] file Gender Identity Male 05/25/2021 9:36 PM [employer]ITION[employer] Sexual Orientation Not on file documented as of this encounter Last Filed Vital Signs Vital Sign Reading Time Taken Comments Blood Pressure 130/68 09/25/2020 9:00 PM CDT Pulse 86 09/25/2020 7:24 PM CDT Temperature 37.1 ??C (98.7 ??F) 09/25/2020 7:24 PM CD T Respiratory Rate 18 09/25/2020 7:24 PM CDT Oxygen Saturation 98% 09/25/2020 9:00 PM CDT Inhaled Oxygen Concentration - - Weight 104.3 kg (230 lb) 09/25/2020 7:24 PM CDT Height 177.8 cm (5' 10 ) 09/25/2020 7:24 PM CDT Body Mass Index 33 09/25/2020 7:24 PM CDT documented in this encounter Discharge Instructions * Discharge Instructions* Cristofer Steven MD - 09/25/2020 10:31 PM CDT You were seen in the emergency department after a reported seizure. Your labs are not concerning for liver or kidney damage. Because your neurologic exam is normal, I recommend following up with yourneurologist. If you have new weakness, numbness or concern for life, limb or eyesight, return to the emergency department. * Attachments The following attachments cannot be sent through Care Everywhere. * Epilepsy in Older Adults (AfterCare(R) Instructions(ER/ED)) ([place]) documented in this encounter Medications at Time [...] as of this encounter ED Notes * Grecia Wisdom RN - 09/25/2020 10:52 PM CDT Discharge instructions and medications reviewed with patient. Patient verbalized understanding and ambulated on own to exit, gait steady. * Grecia Wisdom RN - 09/25/2020 9:38 PM CDT This RN went to do a redraw of pts lab, pt states I don't know if I want to do that . Pt states hedoesn't think anything is wrong with him. informed. * Travis Bone MD - 09/25/2020 7:32 PM CDT Resident Attestation I have performed an independent history and physical examination and discussed the patient's management with the resident. I confirm the residents findings, assessment and plan of care except where revised on this note. Interval History: Dennis Branch 55 year old male with a past medical history that includes seizure disorder is presenting to the ED after a syncopal episode at a restaurant. The patient states that while he was at the restaurant, he started to hear a noise in his ear and became dizzy and nauseated before passing out. He is not sure if he stared off beforehand and denies any injuries 2/2 to the fall. The patient states that he had brain surgery where they removed scar tissue and has not had a seizure since 2012. He also states he had surgery on his right leg and has had issues with it for 7-8 years. He endorses some fever and chills. He states he takes his medication as prescribed. The patient feels back to normal right now. PMH sig for complex partial seizures and as noted below HPI: Onset- See above Timing- See above Location- see above Quality- see above Severity- see above Context- see above Aassociated sxs- See above Exacerbating- See above Alleviating- See above ROS: Unable to obtain No All symptoms reviewed and negative except as marked Constitutional- +fever, chills. no change in activity Eyes- no vision changes Ent- no throat pain Cv- no chest pain, Resp- no shortness of breath Gi- no abdominal pain, Gu- no dysuria Ms- Soreness in his right leg, no extremity swelling, Skin- no rash Neuro- +LOC, no weakness or headache Psych- deferred Hemat/lymph- bruising on R leg Endo- deferred Immun/allergy- no seasonal allergies Past Medical History: Diagnosis Date History of loop recorder Seizures pt reported Speech abnormality speech impedement; pt reported Past Surgical History: Procedure Laterality Date Brain Surgery/Procedure 2012 Social History Tobacco Use Smoking status: Never Smoker Smokeless tobacco: Never Used Vaping Use Vaping Use: Never used Substance Use Topics Alcohol use: Never Drug use: Never Allergies Allergen Reactions Phenobarbital Unknown No current facility-administered medications for this encounter. Current Outpatient Medications Medication Sig acetaminophen (TYLENOL) 500 MG capsule Take 1 (one) capsule by mouth every 4 hours as needed for Fever or Pain lidocaine (LIDODERM) 5 % patch Apply 1 (one) patch to skin once daily Exam: Vitals: 09/25/20 1924 09/25/20 2100 BP: 120/66 130/68 Pulse: 86 Resp: 18 Temp: 98.7 ??F (37.1 ??C) SpO2: 99% 98% Weight: 104.3 kg (230 lb) Height: 1.778 m (5' 10 ) Gen- Well developed, well nourished, no acute distress Eyes- Pupils 3 mm and equal, mucous membranes moist. Ent- no thyromegaly Cv- Heart sounds regular, heart without murmur, normal pulses all 4 Resp- lung clear to auscultation, chest nontender Abd- non distended, soft, nontender, normal bowel sounds Back- nontender Gu- Ms- No peripheral edema, , is able to stand with very mild pain noted to the left side but can bearweight Skin- Neuro- 5/5 strength and normal motor all 4, Psych- normal affect Lymph- deferred MDM: DDx: Seizure vs syncope Plan: Labs, observation in the ED ED Course: Labs Reviewed COMPREHENSIVE METABOLIC PANEL - Abnormal; Notable for the following components: Result Value CO2 21 (*) AST 37 (*) All other components within normal limits CBC W AUTO DIFFERENTIAL - Abnormal; Notable for the following components: MCHC 31.6 (*) Lymphocyte Absolute 3.1 (*) Monocytes Absolute 0.67 (*) Immature Granulocytes % 1.1 (*) All other components within normal limits VALPROIC ACID LEVEL - Normal Lab interpret: benign No orders to display Rad interpret: ED COURSE: pt counseled on findings and plan 9:38 PM: Nurse attempted to redraw the patient's blood. He stated he was unsure if he wanted to do that. Patient states that he does not think anything is wrong with him. 10:28 PM: CMP labs reviewed. Plan to ambulate patient and discharge. 10:52 PM: Discussed discharge plan with patient. Patient verbalized understanding and ambulated on his own. Resident has reviewed his diagnostic findings and he has had an opportunity to ask me any questionshe has about care, diagnosis and discharge plan. Patient is comfortable with the discharge plan. Hewill follow up as directed and will return to the ER if his condition worsens or he develops other urgent concerns. Consult: No Procedure done at this time: No Ultrasound done at this time: No Critical Care: No Clinical Impression: 1. Seizure-like activity 2. Hip pain Disposition: Discharge Please see resident note for further details By signing my name below, I, Linda Tariq, attest that this documentation has been prepared under the direction and in the presence of Dr. Bone. Signed: Saadia Sethi. I, Dr. Bone, personally performed the services described in this documentation. All medical record entries made by the scribe were at my direction and in my presence. I have reviewed the chart andagree that the record reflects my personal performance and is accurate and complete. * Rajesh Acosta RN - 09/25/2020 7:19 PM CDT Bed: [facility] Expected date: Expected time: Means of arrival: Comments: Medic 2 Sz documented in this encounter Plan of Treatment Not on file documented as of this encounter Procedures Procedure Name Priority Date/Time Associated Diagnosis Comments COMPREHENSIVE METABOLIC PANEL STAT 09/25/2020 9:54 PM CDT CBC W AUTO DIFFERENTIAL STAT 09/25/2020 8:05 PM CDT VALPROIC ACID LEVEL STAT 09/25/2020 8 :05 PM CDT GLUCOSE - POINT OF CARE Routine 09/25/2020 8:00 PM CDT documented in this encounter Results * (ABNORMAL) COMPREHENSIVE METABOLIC PANEL (09/25/2020 9:54 PM [facility] BUN 17 7 - 26 mg/dL 09/25/2020 10:28 PM [facility] Creatinine 0.9 0.6 - 1.2 mg/dL 09/25/2020 10:28 PM [facility] Sodium 138 136 - 145 mmol/L 09/25/2020 10:28 PM [facility] Potassium 4.0 3.5 - 4.5 mmol/L 09/25/2020 10:28 PM [facility] Chloride 106 98 - 107 mmol/L 09/25/2020 10:28 PM [facility] CO2 21(L) 22 - 29 mmol/L 09/25/2020 10:28 PM [facility] Glucose 113 70 - 115 mg/dL 09/25/2020 10:28 PM [facility] Calcium 9.2 8.4 - 10.2 mg/dL 09/25/2020 10:28 PM [facility] Protein Total 7.6 6.0 - 8.3 g/dL 09/25/2020 10:28 PM [facility] Albumin 4.2 3.4 - 5.0 g/dL 09/25/2020 10:28 PM [facility] Bilirubin Total 0.5 0.2 - 1.2 mg/dL 09/25/2020 10:28 PM [facility] Alkaline Phosphatase 69 40 - 150 Units/L 09/25/2020 10:28 PM [facility] ALT 21 0 - 55 Units/L 09/25/2020 10:28 PM [facility] AST 37(H) 5 - 34 Units/L 09/25/2020 10:28 PM [facility] Anion Gap 15 8 - 18 09/25/2020 10:28 PM [facility] BUN/Creatinine Ratio 19 7 - 23 09/25/2020 10:28 PM [facility] Osmolality Calculated 288 270 - 300 mOsm/kg 09/25/2020 10:28 PM CDT [facility] Albumin/Globulin Ratio 1.2 1.1 - 2.3 09/25/2020 10:28 PM CDT [facility] eGFR >60 >60 mL/min/1.7 3 m2 09/25/2020 10:28 PM CDT [facility] Blood BLOOD SPECIMEN / Unknown Venipuncture / Unknown 09/25/2020 9:54 PM CDT 09/25/2020 9:58 PM CDT Travis Bone MD LAB - CHEMISTRY [facility] [address] [address], [place] [phone] * VALPROIC ACID LEVEL (09/25/2020 8:05 PM CDT) Pathologist [facility] Valproic Acid Total 53 50 - 100 mcg/mL 09/25/2020 9:11 PM CDT [facility] Blood BLOOD SPECIMEN / Unknown Venipuncture / Unknown 09/25/2020 8:05 PM CDT 09/25/2020 8:13 PM CDT Travis Bone MD LAB - CHEMISTRY [facility] [address] [address], [place] [phone] * (ABNORMAL) CBC W AUTO DIFFERENTIAL (09/25/2020 8:05 PM CDT) Pathologist [facility] WBC 8.0 3.5 - 10.5 10? 3 /uL 09/25/2020 8:17 PM CDT [facility] RBC 4.55 4.30 - 5.70 10? 6 /uL 09/25/2020 8:[address] [facility] Hemoglobin 13.7 13.5 - 17.5 g/dL 09/25/2020 8:17 PM CDT [facility] Hematocrit 43.4 39.0 - 50.0 % 09/25/2020 8:17 PM CDT [facility] MCV 95.4 81.0 - 97.0 fL 09/25/2020 8:17 PM [facility] MCH 30.1 28.0 - 34.0 pg 09/25/2020 8:17 PM [facility] MCHC 31.6(L) 32.0 - 36.0 g/dL 09/25/2020 8:17 PM [facility] Platelet Count 188 150 - 400 10? 3 /uL 09/25/2020 8:17 PM [facility] RDW-SD 49.1 36.0 - 50.0 fL 09/25/2020 8:17 PM [facility] RDW-CV 14.1 11.2 - 14.8 % 09/25/2020 8:17 PM [facility] MPV 9.6 9.3 - 12.8 fL 09/25/2020 8:17 PM [facility] nRBC Absolute 0.00 0 10? 3 /uL 09/25/2020 8:17 PM [facility] nRBC Auto 0.0 0 /100 WBC 09/25/2020 8:17 PM [facility] Neutrophils % 49.0 35.0 - 70.0 % 09/25/2020 8:17 PM [facility] Lymphocytes % 39.0 19.7 - 55.1 % 09/25/2020 8:17 PM [facility] Monocytes % 8.4 3.0 - 15.0 % 09/25/2020 8:17 PM [facility] Eosinophils % 2.0 0.0 - 6.0 % 09/25/2020 8:17 PM [facility] Basophil % 0.5 0.0 - 1.5 % 09/25/2020 8:17 PM [facility] Neutrophils Absolute 3.9 1.6 - 7.0 10? 3 /uL 09/25/2020 8:17 PM [facility] Lymphocyte Absolute 3.1(H) 0.8 - 2.9 10? 3 /uL 09/25/2020 8:17 PM [facility] Monocytes Absolute 0.67(H) 0.14 - 0.66 10? 3 /uL 09/25/2020 8:17 PM [facility] Eosinophils Absolute 0.16 0.00 - 0.45 10? 3 /uL 09/25/2020 8:17 PM CDT [facility] Basophils Absolute 0.04 0.00 - 0.06 10? 3 /uL 09/25/2020 8:17 PM CDT [facility] Immature Granulocytes % 1.1(H) 0.0 - 1.0 % 09/25/2020 8:17 PM CDT [facility] Blood BLOOD SPECIMEN / Unknown Venipuncture / Unknown 09/25/2020 8:05 PM CDT 09/25/2020 8:13 PM CDT Travis Bone MD LAB - HEMATOLOGY ORD ERABLES [address] [address], [place] [phone] * (ABNORMAL) GLUCOSE - POINT OF CARE (09/25/2020 8:00 PM CDT) Glucose WB/POC 139(H) 70 - 115 mg/dL 09/26/2020 1:40 PM CDT [facility] Specimen Type Arterial/C apillary 09/26/2020 1:40 PM CDT [facility] Blood BLOOD SPECIMEN / Unknown 09/25/2020 8:00 PM CDT 09/26/2020 1:40 PM CDT Travis Bone MD LAB - POINT OF CARE ORDERABLES Performing Organization Address [facility]/ZIP Co de Phone Number [address] [address], [place] [phone] documented in this encounter Visit Diagnoses Diagnosis Seizure-like activity (HCC) Other convulsions Hip pain Pain in joint, pelvic region and thigh Nonintractable epilepsy without status epilepticus, unspecified epilepsy type (HCC) documented in this encounter Care Teams Application Packager Relationship Specialty Start Date End Date Sergey Wilson MD PCP - General Internal Medicine 09/25/20 documented as of this encounter
--- OUTSIDE RECORDS SUMMARY | 2024-05-24 02:22 | XMS_ITS | Encounter Summary ---
Author Organization [facility] Health Address [address] [place] [address] Care Team Providers Care 3D Modeler Name Role Phone Sergey Wilson MD Primary Care Provider [phone] Reason for Visit * Reason Comments Syncope BIBEMS from [place], pt had 3 witnessed staring episodes by an CONSUMER EDUCATION SPECIALIST and step finisher bystander at the restaraunt, 2 episode witnessed by EMS. 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 Pt denies head injury, denies blood thinner, answering all questions appropriately at this time. BG 209 for EMS, VSS for EMS Altered mental status Encounter Details Date Type Department Care Team (Late st Contact Info) Description 06/02/2021 10:44 PM EDITOR - 06/02/2021 10:45 PM [facility] Emergency [facility] [address] [place] [address] Altered mental status, unspecified altered mental status type Discharge Disposition: Left Against Medical Advice/Discontinued Care Social History Tobacco Use Types Packs/Day Years Used Date Smoking Tobacco: Never Smokeless Tobacco: Never Alcohol Use Standard Drinks/Week Comments Never 0 (1 standard drink = 0.6 oz pur e alcohol) AUDIT-C Answer Date Recorded Q1: How often do you have a drink containing alc ohol? Never 06/02/2021 Average Number of Drinks Not on file 022 Frequency of Binge Drinking Not on file 05/15 Sex and Gender Information Value Date Recorded Sex Assigned at Not on file Gender Identity Male 05/25/2021 9:36 PM EDITOR Sexual Orientation Not on file documented as of this encounter Last Filed Vital Signs Vital Sign Reading Time Taken Comments Blood Pressure 99/48 06/02/2021 7:32 PM EDITOR Pulse 82 06/02/2021 7:32 PM EDITOR Temperature 37.2 ??C (99 ??F) 06/02/2021 7:32 PM EDITOR Respiratory Rate 16 06/02/2021 7:32 PM EDITOR Oxygen Saturation 98% 06/02/2021 7:32 PM EDITOR Inhaled Oxygen Concentration - - Weight 104.3 kg (230 lb) 06/02/2021 7:32 PM EDITOR Height 177.8 cm (5' 10 ) 06/02/2021 7:32 PM EDITOR Body Mass Index 33 06/02/2021 7:32 PM EDITOR documented in this encounter Medications at Time [...] as of this encounter ED Notes * Georgia Cortes RN - 06/02/2021 10:44 PM CST Pt refused AMA paperwork, left before being seen. Didn't want to wait. A/ox4 upon discharge OR * Amanda Gardner - 06/02/2021 10:05 PM CST Pt states that he would like to know the results of his bloodwork. Pt states that he has a visitor he left waiting in the car and if he doesn't get the results soon he will leave. OR documented in this encounter Plan of Treatment Not on file documented as of this encounter Procedures Procedure Name Priority Date/Time Associated Diagnosis Comments CARDIAC EKG ORDER 06/07/2021 8:[address] HEAD WO CONTRAST STAT 06/02/2021 9 :12 PM EDITOR Altered mental status, unspecified altered mental status type XR CHEST 2VW STAT 06/02/2021 8:41 PM EDITOR Altered mental status, unspecified altered mental status type PT-INR SLH STAT 06/02/2021 8:28 PM EDITOR TROPONIN I STAT 06/02/2021 8:28 PM EDITOR CBC W AUTO DIFFERENTIAL STAT 06/02/2021 8:28 PM EDITOR COMPREHENSIVE METABOLIC PANEL STAT 06/02/2021 8:28 PM EDITOR ALCOHOL ETHYL BLOOD STAT 06/02/2021 8 :28 PM EDITOR EKG 12-LEAD Routine 06/02/2021 8:04 PM EDITOR Altered mental status, unspecified altered mental status type URINE DRUG SCREEN IMMUNOASSAY STAT 06/02/2021 7:52 PM EDITOR documented in this encounter Results * CARDIAC EKG ORDER (06/07/2021 8:54 AM EDITOR) Narrative 06/07/2021 8:54 AM EDITOR Ordered by an unspecified provider. Scanned Document CARDIAC SERVICES ORD ERABLES * CT HEAD WO CONTRAST (06/02/2021 9:12 PM EDITOR) Anatomical Region Laterality Modality Head Computed Tomogra phy 06/02/2021 9:47 PM EDITOR Impressions 06/03/2021 4:54 PM EDITOR IMPRESSION: 1. No acute intracranial process. 2. The postsurgical changes are discussed above. Dictated by Paramjit Thompson DO (assistant vice president) I, Dr. BEATRICE PIERRE have personally reviewed and interpreted this examination/study. This report was electronically signed by BEATRICE PIERRE ??on 06/03/2021 4:54 PM . Narrative 06/03/2021 4:54 PM EDITOR EXAMINATION: CT OF THE HEAD WITHOUT CONTRAST HISTORY: R41.82: Altered mental status, unspecified altered mental status type TECHNIQUE: CT of the head was performed without contrast according to standard protocol. COMPARISON: No prior study is available for comparison at the time of this dictation. FINDINGS: Postoperative changes of a right temporal craniotomy are uncomplicated. The upper sioux flap is plated. There is overlying soft tissue swelling. No acute intra- or extra-axial hemorrhages or fluid collections are identified. The ventricles are of normal size, shape, and morphology. The basilar cisterns are patent. No mass effect or midline shift is seen. Chronic encephalomalacia in the right inferior temporal lobe in the middle cranial fossa is seen under craniotomy. The driver-white matter differentiation is normal. The visualized portions of the orbits, paranasal sinuses, and mastoids appear normal. No acute fracture is identified. Procedure Note Beatrice Pierre MD - 06/03/2021 EXAMINATION: CT OF THE HEAD WITHOUT CONTRAST HISTORY: R41.82: Altered mental status, unspecified altered mentalstatus type TECHNIQUE: CT of the head was performed without contrast according to standard protocol. COMPARISON: No prior study is available for comparison at the time ofthis dictation. FINDINGS: Postoperative changes of a right temporal craniotomy are uncomplicated. The upper sioux flap is plated. There is overlying soft tissue swelling. No acute intra- or extra-axial hemorrhages or fluid collections are identified. The ventricles are of normal size, shape, and morphology.The basilar cisterns are patent. No mass effect or midline shift is seen. Chronic encephalomalacia in the right inferior temporal lobe in themiddle cranial fossa is seen under craniotomy. The driver-white matter differentiation is normal. The visualized portions of the orbits, paranasal sinuses, and mastoids appear normal. No acute fracture is identified. IMPRESSION: 1. No acute intracranial process. 2. The postsurgical changes are discussed above. Dictated by Paramjit Thompson DO (assistant vice president) IDr. BEATRICE have personally reviewed and interpreted this examination/study. This report was electronically signed by BEATRICE PIERRE on 06/03/2021 4:54 PM . Celso Miles MD CT ORDERABLES * XR CHEST 2VW (06/02/2021 8:41 PM EDITOR) Anatomical Region Laterality Modality Chest Radiographic Kayley ging 06/02/2021 9:48 PM EDITOR Impressions 06/03/2021 7:30 AM EDITOR IMPRESSION: No acute pulmonary process. Report dictated by Daija Brewster MD (vice president process). Dr. PRIYANK Merchant MD have personally reviewed and interpreted this examination/study. This report was electronically signed by PRIYANK DUNNE MD ??on 06/03/2021 7:30 AM . Narrative 06/03/2021 7:30 AM EDITOR EXAMINATION: XR CHEST 2VW, 06/02/2021 8:41 PM HISTORY: R41.82: Altered mental status, unspecified altered mental status type COMPARISON: None. FINDINGS: Cardiac loop recorder projects over the anterior inferior left hemithorax. There is no focal consolidation, pleural effusion, or pneumothorax. The cardiomediastinal silhouette is normal. The visible bony thorax is intact. Procedure Note Priyank Dunne MD - 06/03/2021 EXAMINATION: XR CHEST 2VW, 06/02/2021 8:41 PM HISTORY: R41.82: Altered mental status, unspecified altered mentalstatus type COMPARISON: None. FINDINGS: Cardiac loop recorder projects over the anterior inferior lefthemithorax. There is no focal consolidation, pleural effusion, or pneumothorax. The cardiomediastinal silhouette is normal. The visible bony thorax isintact. IMPRESSION: No acute pulmonary process. Report dictated by Daija Brewster MD (vice president process). Dr. PRIYANK Merchant MD have personally reviewed and interpreted this examination/study. This report was electronically signed by PRIYANK DUNNE MD on06/03/2021 7:30 AM . Celso Miles MD DIAGNOSTIC IMAGING O RDERABLES * ALCOHOL ETHYL BLOOD (06/02/2021 8:28 PM EDITOR) Ethanol (mg/dL) <10 <10 mg/dL 9:05 PM [facility]ORY [facility] Ethanol Calculated (g/dL) <0.010 <0.010 g/dL 06/02/2021 9:05 PM [facility] Blood BLOOD SPECIMEN / Unknown Venipuncture / Unknown 06/02/2021 8:28 PM [facility] 06/02/2021 8:39 PM [facility] - 06/02/2021 9:05 PM [facility] Ethanol Interp <10: None Detected. Depression of ASSISTANT PUBLIC DEFENDER: >100 mg/dl Potentially Critical: >250 mg/dl Potentially Fatal >400 mg/dl Ethanol in the patient's blood will contribute to the osmolar gap. Ethanol's contribution to the osmolar gap can be estimated by dividing the concentration of ethanol in mg/dL by 4.6. This test is for clinical use only and does not equal a GARCÍA for legal purposes. Celso Miles MD LAB - CHEMISTRY JOSE B[facility] [address] [place] [id number], [facility] [phone] * (ABNORMAL) COMPREHENSIVE METABOLIC PANEL (06/02/2021 8:28 PM [facility]) BUN 18 7 - 26 mg/dL 06/02/2021 9:05 PM [facility] Creatinine 0.88 0.71 - 1.16 mg/dL 06/02/2021 9:05 PM [facility] Sodium 141 136 - 145 mmol/L 06/02/2021 9:05 PM [facility] Potassium 4.1 3.5 - 4.5 mmol/L 06/02/2021 9:05 PM [facility] Chloride 105 98 - 107 mmol/L 06/02/2021 9:05 PM [facility] CO2 23 22 - 29 mmol/L 06/02/2021 9:05 PM [facility] Glucose 160(H) 70 - 115 mg/dL 06/02/2021 9:05 PM [facility] Calcium 9.6 8.4 - 10.2 mg/dL 06/02/2021 9:05 PM [facility] Protein Total 7.5 6.0 - 8.3 g/dL 06/02/2021 9:05 PM [facility] Albumin 3.7 3.4 - 5.0 g/dL 06/02/2021 9:05 PM [facility] Bilirubin Total 0.2 0.2 - 1.2 mg/dL 06/02/2021 9:05 PM [facility] Alkaline Phosphatase 84 40 - 150 U/L 06/02/2021 9:05 PM [facility] ALT 14 5 - 55 U/L 06/02/2021 9:05 PM [facility] AST 22 5 - 34 U/L 06/02/2021 9:05 PM [facility] Anion Gap 17 8 - 18 06/02/2021 9:05 PM [facility] BUN/Creatinine Ratio 20 7 - 23 06/02/2021 9:05 PM [facility] Osmolality Calculated 297 270 - 300 mOsm/kg 06/02/2021 9:05 PM [facility] Albumin/Globulin Ratio 1.0(L) 1.1 - 2.3 06/02/2021 9:05 PM [facility] eGFR by CKD-EPI >90 >=90 mL/min/1.7 3 m2 06/02/2021 9:05 PM [facility] Blood BLOOD SPECIMEN / Unknown Venipuncture / Unknown 06/02/2021 8:28 PM EDITOR 06/02/2021 8:39 PM [facility] Celso Miles MD LAB - CHEMISTRY ORDE [facility] Organization Address [facility]/State/[facility] Co de Phone Number [facility] [address] [place] [address], [facility] [phone] * (ABNORMAL) CBC W AUTO DIFFERENTIAL (06/02/2021 8:28 PM EDITOR) WBC 7.0 3.5 - 10.5 10? 3 /uL 06/02/2021 8:44 PM [facility] RBC 5.24 4.30 - 5.70 10? 6 /uL 06/02/2021 8:44 PM [facility] Hemoglobin 14.6 12.0 - 17.6 g/dL 06/02/2021 8:44 PM [facility] Hematocrit 46.0 35.2 - 51.7 % 06/02/2021 8:44 PM [facility] MCV 87.8 80.7 - 98.3 fL 06/02/2021 8:44 PM [facility] MCH 27.9 26.7 - 34.0 pg 06/02/2021 8:44 PM [facility] MCHC 31.7 30.8 - 35.9 g/dL 06/02/2021 8:44 PM [facility] Platelet Count 196 150 - 400 10? 3 /uL 06/02/2021 8:44 PM [facility] RDW-SD 44.1 36.0 - 50.0 fL 06/02/2021 8:44 PM [facility] RDW-CV 13.8 11.2 - 14.8 % 06/02/2021 8:44 PM [facility] MPV 9.7 9.4 - 12.9 fL 06/02/2021 8:44 PM [facility] nRBC Absolute 0.00 0 10? 3 /uL 06/02/2021 8:44 PM [facility] nRBC Auto 0.0 0 /100 WBC 06/02/2021 8:44 PM [facility] Neutrophils % 41.3 35.0 - 70.0 % 06/02/2021 8:44 PM [facility] Lymphocytes % 47.2(H) 20.0 - 43.0 % 06/02/2021 8:44 PM [facility] Monocytes % 7.6 5.0 - 13.0 % 06/02/2021 8:44 PM [facility] Eosinophils % 2.3 0.0 - 6.0 % 06/02/2021 8:44 PM [facility] Basophil % 0.6 0.0 - 2.0 % 06/02/2021 8:44 PM [facility] Neutrophils Absolute 2.9 1.6 - 7.0 10? 3 /uL 06/02/2021 8:44 PM [facility] Lymphocyte Absolute 3.3 1.1 - 3.9 10? 3 /uL 06/02/2021 8:44 PM [facility] Monocytes Absolute 0.53 0.26 - 1.07 10? 3 /uL 06/02/2021 8:44 PM [facility] Eosinophils Absolute 0.16 0.00 - 0.47 10? 3 /uL 06/02/2021 8:44 PM [facility] Basophils Absolute 0.04 0.00 - 0.08 10? 3 /uL 06/02/2021 8:44 PM [facility] Immature Granulocytes % 1.0 0.0 - 1.0 % 06/02/2021 8:44 PM [facility] Immature Granulocytes Absolute 0.07 06/02/2021 8:44 PM [facility] Blood BLOOD SPECIMEN / Unknown Venipuncture / Unknown 06/02/2021 8:28 PM EDITOR 06/02/2021 8:39 PM EDITOR Celso Miles MD LAB - HEMATOLOGY ORD ERABLES Performing Organization Address City/[facility]/ZIP Co de Phone Number [address] [address], [facility] [phone] * PT-INR [facility] (06/02/2021 8:28 PM EDITOR) PT 12.6 12.1 - 14.8 Seconds 06/02/2021 8:53 PM [facility] INR 1.0 See Comment 06/02/2021 8:53 PM [facility] Comment:The suggested therap eutic range for standard coumadin (warfarin) therapy is an INR of 2.0-3.0. For high-risk patients (Mechanical Mitral Valve Prosthesis, etc.), the suggested prophylactic therapeutic range is an INR of 2.5-3.5. Blood BLOOD SPECIMEN / Unknown Venipuncture / Unknown 06/02/2021 8:28 PM EDITOR 06/02/2021 8:37 PM EDITOR Celso Miles MD LAB - COAGULATION OR DERABLES Performing Organization Address [facility]/ZIP Co de Phone Number [address] [address], [facility] [phone] * TROPONIN I (06/02/2021 8:28 PM EDITOR) Troponin I <0.010 <0.032 ng/mL 06/02/2021 9:08 PM [facility] Blood BLOOD SPECIMEN / Unknown Venipuncture / Unknown 06/02/2021 8:28 PM EDITOR 06/02/2021 8:39 PM EDITOR Celso Miles MD LAB - CHEMISTRY ROXYKamlesh JAMAL Performing Organization Address City/[facility]/ZIP Co de Phone Number [facility] [address] [place] [address], [facility] [phone] * EKG 12-LEAD (06/02/2021 8:04 PM EDITOR) [facility] Signature Ventricular Rate 78 BPM [facility] Atrial Rate 78 BPM [facility] P-R Interval 192 ms [facility] QRS Duration ms 116 ms [facility] Q-T Interval ms 408 ms [facility] QTC Calculation (Bezet) 465 ms [facility] Calculated P [place] 48 degrees [facility] Calculated R [place]on -69 degrees [facility] Calculated T [place]on 50 degrees [facility] Interpretation EKG NORMAL SINUS RHYTHM INCOMPLETE RIGHT BUNDLE BRANCH BLOCK LEFT ANTERIOR FASCICULAR BLOCK ABNORMAL ECG NO PREVIOUS ECGS AVAILABLE Confirmed by Kai Walters ([id number]) on 06/06/2021 8:05:36 AM [facility] 06/02/2021 8:04 PM EDITOR 06/06/2021 8:05 AM EDITOR Celso Miles MD ECG ORDERABLES Performing Organization Address [facility] Co de Phone Number [facility] * URINE DRUG SCREEN IMMUNOASSAY (06/02/2021 7:52 PM EDITOR) [facility] Amphetamines Screen Urine Negative Negative: < 1000 ng/mL 06/02/2021 8:38 PM EDITOR [facility] Barbiturates Screen Urine Negative Negative: < 200 ng/mL 06/02/2021 8:38 PM [facility] Benzodiazepine Screen Urine Negative Negative: < 200 ng/mL 06/02/2021 8:38 PM [facility] Opiates Urine Negative Negative: < 300 ng/mL 06/02/2021 8:38 PM [facility] Cocaine Metabolites Urine Negative Negative: < 300 ng/mL 06/02/2021 8:38 PM [facility] Phencyclidine Screen Urine Negative Negative: < 25 ng/ml 06/02/2021 8:38 PM [facility] Cannabinoids Screen Urine Negative Negative: <50 ng/mL 06/02/2021 8:38 PM [facility] Methadone Screen Urine Negative Negative: < 300 ng/mL 06/02/2021 8:38 PM [facility] Fentanyl Screen Urine Negative Negative: <1.0 ng/mL 06/02/2021 8:38 PM [facility] Urine URINE / Unknown Collection / Unknown 06/02/2021 7:52 PM EDITOR 06/02/2021 8:03 PM [facility] Narrative [facility] - 06/02/2021 8:38 PM [facility] The Urine Toxicology Screening Panel does not screen for Propoxyphene, Meprobamate, Carisoprodol, Trazodone, [id number] medications and/or volatiles (Acetone, Isopropanol, Methanol or Ethylene Glycol). Ethanol, Salicylate, Acetaminophen, Tricyclic Antidepressants and several therapeutic drugs may be individually assayed in serum or plasma specimen. Toxicology testing by the [facility] is an aid to medical diagnosis and treatment of patients. No documented chain of custody was maintained. Results are intended to be used for clinical purposes only. ? Celso Miles MD LAB - URINE CHEMISTR Y ORDERABLES Performing Organization Address [facility]/State/[facility] Co de Phone Number [facility] [address] [place] [address], [facility] [phone] documented in this encounter Visit Diagnoses Diagnosis Altered mental status, unspecified altered mental status type documented in this encounter Care Teams 3D Modeler Relationship Specialty Start Date End Date Sergey Wilson MD PCP - General Internal Medicine 09/25/20 documented as of this encounter
--- OUTSIDE RECORDS SUMMARY | 2024-05-24 02:22 | XMS_ITS | Referral Summary ---
Author Organization [facility] Address [address] [place] [address] Care Team Providers Care Sand Mill Operator Core Sand Name Role Phone Sergey Wilson MD Primary Care Provider [phone] Source Comments [facility],non-[facility] Affiliates and Associated Physician Practices is amultiple site organization consisting of ambulatory clinics and hospital sitesin [place], [place], [place] and [place]. This disclosure is being madepursuant to the Care Everywhere program and may not contain all information available regarding this patient. Last updated 18.[facility] [employer] Allergies Active Allergy Reactions Criticality Noted Date Comments Phenobarbital Unknown 09/25/2020 Medications * Be aware that medications may not be up to date on this document. Alwaysverify current medications with the patient. Medication Sig Dispensed Refills Start Date End Date Status acetaminophen (TYLENOL) 500 MG capsule Take 1 (one) capsule by mouth every 4 hours as needed for Fever or Pain 10 capsule 09/25/2020 Active lidocaine (LIDODERM) 5 % patch Apply 1 (one) patch to skin once daily 12 patch 09/25/2020 Active Social History Tobacco Use Types Packs/Day [...] file Gender Identity Male 05/25/2021 9:36 PM SIDE STITCHING MACHINE OPERATOR Sexual Orientation Not on file Last Filed Vital Signs Vital Sign Reading Time Taken Comments Blood Pressure 99/48 06/02/2021 7:32 PM SIDE STITCHING MACHINE OPERATOR Pulse 82 06/02/2021 7:32 PM SIDE STITCHING MACHINE OPERATOR Temperature 37.2 ??C (99 ??F) 06/02/2021 7:32 PM SIDE STITCHING MACHINE OPERATOR Respiratory Rate 16 06/02/2021 7:32 PM SIDE STITCHING MACHINE OPERATOR Oxygen Saturation 98% 06/02/2021 7:32 PM SIDE STITCHING MACHINE OPERATOR Inhaled Oxygen Concentration - - Weight 104.3 kg (230 lb) 06/02/2021 7:32 PM SIDE STITCHING MACHINE OPERATOR Height 177.8 cm (5' 10 ) 06/02/2021 7:32 PM SIDE STITCHING MACHINE OPERATOR Body Mass Index 33 06/02/2021 7:32 PM SIDE STITCHING MACHINE OPERATOR Plan of Treatment Not on file Care Teams Sand Mill Operator Core Sand Relationship Specialty Start Date End Date Sergey Wilson MD PCP - General Internal Medicine 09/25/20
--- OUTSIDE RECORDS SUMMARY | 2024-05-24 02:22 | XMS_ITS | Clinical Summary ---
Author Organization [facility] Address [address] [place] [address] Care Team Providers Care Nurse Practitioner Physicians Assistant Name Role Phone Sergey Wilson MD Primary Care Provider [phone] Source Comments [facility],non-[facility] Affiliates and Associated Physician Practices is amultiple site organization consisting of ambulatory clinics and hospital sitesin [place], [place], [place] and [place]. This disclosure is being madepursuant to the Care Everywhere program and may not contain all information available regarding this patient. Last updated 18.[facility] [employer] Allergies Active Allergy Reactions Criticality Noted Date [...] file Gender Identity Male 05/25/2021 9:36 PM EQUINE INTERN Sexual Orientation Not on file Last Filed Vital Signs Vital Sign Reading Time Taken Comments Blood Pressure 99/48 06/02/2021 7:32 PM EQUINE INTERN Pulse 82 06/02/2021 7:32 PM EQUINE INTERN Temperature 37.2 ??C (99 ??F) 06/02/2021 7:32 PM EQUINE INTERN Respiratory Rate 16 06/02/2021 7:32 PM EQUINE INTERN Oxygen Saturation 98% 06/02/2021 7:32 PM EQUINE INTERN Inhaled Oxygen Concentration - - Weight 104.3 kg (230 lb) 06/02/2021 7:32 PM EQUINE INTERN Height 177.8 cm (5' 10 ) 06/02/2021 7:32 PM EQUINE INTERN Body Mass Index 33 06/02/2021 7:32 PM EQUINE INTERN Plan of Treatment Health Maintenance Due Date Last Done Comments COLOGUARD (AGES 45-75) - COLON CA SCREENING 1964 COLON MONITORING 1964 COLONOSCOPY - COLON CA SCREENING 1964 CT COLONOGRAPHY - COLON CA SCREENING 1965 Colorectal Cancer Screening 1964 FIT - COLON CA SCREENING 1964 FLEX SIG - COLON CA SCREENING 1964 LIPID TESTING 1964 HIV SCREENING 02/23/1979 HEPATITIS C SCREENING 02/19/1982 DTAP/TDAP/TD VACCINES (1 - Tdap) 02/23/1983 ZOSTER VACCINE (1 of 2) 02/23/2014 COVID-19 VACCINE ( - season) 2024 05/13/2021, 08/14/2020, 07/17/2020 INFLUENZA VACCINE (#1) 2024 , 02/25/2020, 02/18/2020, Additional history exists DEPRESSION SCREENING 05/14/2024 MEDICARE AWV ? CALENDAR YEAR 2024 Respiratory Syncytial Virus (RSV) Vaccine Pt: or over 60 yrs (1 - 1-dose 75+ series) 02/23/2039 HEPATITIS B VACCINE Aged Out No longe r eligible based on patient's age to complete this topic HIB VACCINE Aged Out No longer eligi ble based on patient's age to complete this topic HPV VACCINE Aged Out No longer eligi ble based on patient's age to complete this topic MENINGOCOCCAL VACCINE Aged Out No [place] eligible based on patient's age to complete this topic PNEUMOCOCCAL VACCINE Aged Out No long er eligible based on patient's age to complete this topic Care Teams Nurse Practitioner Physicians Assistant Relationship Specialty Start Date End Date Sergey Wilson MD PCP - General Internal Medicine 09/25/20
--- OUTSIDE RECORDS SUMMARY | 2024-05-24 02:22 | XMS_ITS | Patient Health Summary ---
Author Organization [facility] Address [address] [place] [address] Care Team Providers [employer] Name Role Phone Sergey Wilson MD Primary Care Provider [phone] Note from [facility],non-owned Affiliates and Associated Physician Practices is amultiple site organization consisting of ambulatory clinics and hospital sitesin [place], [place], [place] and [place]. This disclosure is being madepursuant to the Care Everywhere program and may not contain all information available regarding this patient. Last updated 18.[facility] [employer] Allergies * Phenobarbital(Unknown) Medications * Be aware that medications may not be up to date on this document. Alwaysverify current medications with the patient. * acetaminophen (TYLENOL) 500 MG capsule(Started 09/25/2020) Take 1 (one) capsule by mouth every 4 hours as needed for Fever or Pain * lidocaine (LIDODERM) 5 % patch(Started 09/25/2020) Apply 1 (one) patch to skin once daily Social History Tobacco Use Types Packs/Day Years [...] file Gender Identity Male 05/25/2021 9:36 PM CENTRIFUGAL SCREEN TENDER Sexual Orientation Not on file Last Filed Vital Signs Vital Sign Reading Time Taken Comments Blood Pressure 99/48 06/02/2021 7:32 PM CENTRIFUGAL SCREEN TENDER Pulse 82 06/02/2021 7:32 PM CENTRIFUGAL SCREEN TENDER Temperature 37.2 ??C (99 ??F) 06/02/2021 7:32 PM CENTRIFUGAL SCREEN TENDER Respiratory Rate 16 06/02/2021 7:32 PM CENTRIFUGAL SCREEN TENDER Oxygen Saturation 98% 06/02/2021 7:32 PM CENTRIFUGAL SCREEN TENDER Inhaled Oxygen Concentration - - Weight 104.3 kg (230 lb) 06/02/2021 7:32 PM CENTRIFUGAL SCREEN TENDER Height 177.8 cm (5' 10 ) 06/02/2021 7:32 PM CENTRIFUGAL SCREEN TENDER Body Mass Index 33 06/02/2021 7:32 PM CENTRIFUGAL SCREEN TENDER Procedures * CARDIAC EKG ORDER(Performed 06/07/2021) * CT HEAD WO CONTRAST(Performed 06/02/2021) Performed for Altered mental status, unspecified altered mental status type * XR CHEST 2VW(Performed 06/02/2021) Performed for Altered mental status, unspecified altered mental status type * ALCOHOL ETHYL BLOOD(Performed 06/02/2021) * COMPREHENSIVE METABOLIC PANEL(Performed 06/02/2021) * CBC W AUTO DIFFERENTIAL(Performed 06/02/2021) * PT-INR [facility](Performed 06/02/2021) * TROPONIN I(Performed 06/02/2021) * EKG 12-LEAD(Performed 06/02/2021) Performed for Altered mental status, unspecified altered mental status type * URINE DRUG SCREEN IMMUNOASSAY(Performed 06/02/2021) * EKG 12-LEAD(Performed 05/25/2021) Performed for Syncope and collapse * TROPONIN I(Performed 05/25/2021) * COMPREHENSIVE METABOLIC PANEL(Performed 05/25/2021) * CBC W AUTO DIFFERENTIAL(Performed 05/25/2021) * GLUCOSE - POINT OF CARE(Performed 05/25/2021) * COMPREHENSIVE METABOLIC PANEL(Performed 09/25/2020) * VALPROIC ACID LEVEL(Performed 09/25/2020) * CBC W AUTO DIFFERENTIAL(Performed 09/25/2020) * GLUCOSE - POINT OF CARE(Performed 09/25/2020) * CT HEAD WO CONTRAST(Performed 01/15/2020) Performed for Syncope and collapse * LACTIC ACID BLOOD(Performed 01/14/2020) * TROPONIN I(Performed 01/14/2020) * CBC W AUTO DIFFERENTIAL(Performed 01/14/2020) * BASIC METABOLIC PANEL (CALCIUM TOTAL)(Performed 01/14/2020) * EKG 12-LEAD(Performed 01/14/2020) Performed for Syncope and collapse * TYPE + SCREEN PANEL(Performed 12/02/2019) * TROPONIN I(Performed 12/02/2019) * PT-INR(Performed 12/02/2019) * COMPREHENSIVE METABOLIC PANEL(Performed 12/02/2019) * CBC W AUTO DIFFERENTIAL(Performed 12/02/2019) * CREATININE - POCT INTERFACED(Performed 12/02/2019) * EKG 12-LEAD(Performed 12/02/2019) Performed for Syncope and collapse, Weakness * INR WHOLE BLOOD - POINT OF CARE (IP) STROKE(Performed 12/02/2019) * CT BRAIN STROKE(Performed 12/02/2019) Performed for Syncope and collapse Results * CARDIAC EKG ORDER (06/07/2021 8:54 AM CENTRIFUGAL SCREEN TENDER) Narrative 06/07/2021 8:54 AM CENTRIFUGAL SCREEN TENDER Ordered by an unspecified provider. Scanned Document CARDIAC SERVICES ORD ERABLES * CT HEAD WO CONTRAST (06/02/2021 9:12 PM CENTRIFUGAL SCREEN TENDER) Only the most recent of2 resultswithin the time period is included. Anatomical Region Laterality Modality Head Computed Tomogra phy 06/02/2021 9:47 PM CENTRIFUGAL SCREEN TENDER Impressions 06/03/2021 4:54 PM CENTRIFUGAL SCREEN TENDER IMPRESSION: 1. No acute intracranial process. 2. The postsurgical changes are discussed above. Dictated by Paramjit Thompson DO (residential solar consultant) I, Dr. BEATRICE PIERRE have personally reviewed and interpreted this examination/study. This report was electronically signed by BEATRICE PIERRE ??on 06/03/2021 4:54 PM . Narrative 06/03/2021 4:54 PM CENTRIFUGAL SCREEN TENDER EXAMINATION: CT OF THE HEAD WITHOUT CONTRAST HISTORY: R41.82: Altered mental status, unspecified altered mental status type TECHNIQUE: CT of the head was performed without contrast according to standard protocol. COMPARISON: No prior study is available for comparison at the time of this dictation. FINDINGS: Postoperative changes of a right temporal craniotomy are uncomplicated. The united [place] flap is plated. There is overlying soft [...] a right temporal craniotomy are uncomplicated. The united [place] flap is plated. There is overlying soft [...] discussed above. Dictated by Paramjit Thompson DO (residential solar consultant) Dr. BEATRICE Merchant have personally reviewed and interpreted this examination/study. This report was electronically signed by BEATRICE PIERRE on 06/03/2021 4:54 PM . Celso Miles MD CT ORDERABLES * XR CHEST 2VW (06/02/2021 8:41 PM CENTRIFUGAL SCREEN TENDER) Anatomical Region Laterality Modality Chest Radiographic Kayley ging 06/02/2021 9:48 PM CENTRIFUGAL SCREEN TENDER Impressions 06/03/2021 7:30 AM CENTRIFUGAL SCREEN TENDER IMPRESSION: No acute pulmonary process. Report dictated by Daija Brewster MD (residential leasing agent). Dr. PRIYANK Merchant MD have personally reviewed and interpreted this examination/study. This report was electronically signed by PRIYANK DUNNE MD ??on 06/03/2021 7:30 AM . Narrative 06/03/2021 7:30 AM CENTRIFUGAL SCREEN TENDER EXAMINATION: XR CHEST 2VW, 06/02/2021 8:41 PM [...] process. Report dictated by Daija Brewster MD (residential leasing agent). I, Dr. PRIYANK DUNNE MD have personally reviewed and interpreted this examination/study. This report was electronically signed by PRIYANK DUNNE MD on06/03/2021 7:30 AM . Celso Miles MD DIAGNOSTIC IMAGING O RDERABLES * PT-INR [facility] (06/02/2021 8:28 PM CENTRIFUGAL SCREEN TENDER) PT 12.6 12.1 - 14.8 Seconds 06/02/2021 8:53 PM [facility] INR 1.0 See Comment 06/02/2021 8:53 PM [facility] Comment:The suggested therap eutic range for standard coumadin (warfarin) therapy is an INR of 2.0-3.0. For high-risk patients (Mechanical Mitral Valve Prosthesis, etc.), the suggested prophylactic therapeutic range is an INR of 2.5-3.5. Blood BLOOD SPECIMEN / Unknown Venipuncture / Unknown 06/02/2021 8:28 PM CENTRIFUGAL SCREEN TENDER 06/02/2021 8:37 PM CENTRIFUGAL SCREEN TENDER Celso Miles MD LAB - COAGULATION OR DERABLES Performing Organization Address City/[facility]/ZIP Co de Phone Number [address] [phone], [facility] [phone] * TROPONIN I (06/02/2021 8:28 PM CENTRIFUGAL SCREEN TENDER) Only the most recent of4 resultswithin the time period is included. [facility] Troponin I <0.010 <0.032 ng/mL 06/02/2021 9:08 PM [facility] Blood BLOOD SPECIMEN / Unknown Venipuncture / Unknown 06/02/2021 8:28 PM CENTRIFUGAL SCREEN TENDER 06/02/2021 8:39 PM CENTRIFUGAL SCREEN TENDER Celso Miles MD LAB - CHEMISTRY ORDE RABLES Performing Organization Address [facility] [[email or web address]] Co de Phone Number [address] [phone], [facility] [phone] * (ABNORMAL) CBC W AUTO DIFFERENTIAL (06/02/2021 8:28 PM CENTRIFUGAL SCREEN TENDER) Only the most recent of5 resultswithin the time period is included. [facility] WBC 7.0 3.5 - 10.5 10? 3 /uL 06/02/2021 8:44 PM [facility] RBC 5.24 4.30 - 5.70 10? 6 /uL 06/02/2021 8:44 PM [facility] Hemoglobin 14.6 12.0 - 17.6 g/dL 06/02/2021 8:44 PM [facility] Hematocrit 46.0 35.2 - 51.7 % 06/02/2021 8:44 PM [facility] MCV 87.8 80.7 - 98.3 fL 06/02/2021 8:44 PM [facility] MCH 27.9 26.7 - 34.0 pg 06/02/2021 8:44 PM [facility] MCHC 31.7 30.8 - 35.9 g/dL 06/02/2021 8:44 PM [facility] Platelet Count 196 150 - 400 10? 3 /uL 06/02/2021 8:44 PM [facility] RDW-SD 44.1 36.0 - 50.0 fL 06/02/2021 8:44 PM [facility] RDW-CV 13.8 11.2 - 14.8 % 06/02/2021 8:44 PM [facility] MPV 9.7 9.4 - 12.9 fL 06/02/2021 8:44 PM [facility] nRBC Absolute 0.00 0 10? 3 /uL 06/02/2021 8:44 PM [facility] nRBC Auto 0.0 0 /100 WBC 06/02/2021 8:44 PM [facility] Neutrophils % 41.3 35.0 - 70.0 % 06/02/2021 8:44 PM [facility] Lymphocytes % 47.2(H) 20.0 - 43.0 % 06/02/2021 8:44 PM [facility] Monocytes % 7.6 5.0 - 13.0 % 06/02/2021 8:44 PM [facility] Eosinophils % 2.3 0.0 - 6.0 % 06/02/2021 8:44 PM [facility] Basophil % 0.6 0.0 - 2.0 % 06/02/2021 8:44 PM [facility] Neutrophils Absolute 2.9 1.6 - 7.0 10? 3 /uL 06/02/2021 8:44 PM [facility] Lymphocyte Absolute 3.3 1.1 - 3.9 10? 3 /uL 06/02/2021 8:44 PM [facility] Monocytes Absolute 0.53 0.26 - 1.07 10? 3 /uL 06/02/2021 8:44 PM [facility] Eosinophils Absolute 0.16 0.00 - 0.47 10? 3 /uL 06/02/2021 8:44 PM [facility] Basophils Absolute 0.04 0.00 - 0.08 10? 3 /uL 06/02/2021 8:44 PM [facility] Immature Granulocytes % 1.0 0.0 - 1.0 % 06/02/2021 8:44 PM [facility] Immature Granulocytes Absolute 0.07 06/02/2021 8:44 PM [facility] Blood BLOOD SPECIMEN / Unknown Venipuncture / Unknown 06/02/2021 8:28 PM CENTRIFUGAL SCREEN TENDER 06/02/2021 8:39 PM [facility] Celso Miles MD LAB - HEMATOLOGY ORD ERABLES [facility] [address] [place] [address], [facility] [phone] * (ABNORMAL) COMPREHENSIVE METABOLIC PANEL (06/02/2021 8:28 PM CENTRIFUGAL SCREEN TENDER) Only the most recent of4 resultswithin the time period is included. BUN 18 7 - 26 mg/dL 06/02/2021 9:05 PM [facility] Creatinine 0.88 0.71 - 1.16 mg/dL 06/02/2021 9:05 PM [facility] Sodium 141 136 - 145 mmol/L 06/02/2021 9:05 PM [facility] Potassium 4.1 3.5 - 4.5 mmol/L 06/02/2021 9:05 PM [facility] Chloride 105 98 - 107 mmol/L 06/02/2021 9:05 PM [facility] CO2 23 22 - 29 mmol/L 06/02/2021 9:05 PM [facility] Glucose 160(H) 70 - 115 mg/dL 06/02/2021 9:05 PM [facility] Calcium 9.6 8.4 - 10.2 mg/dL 06/02/2021 9:05 PM [facility] Protein Total 7.5 6.0 - 8.3 g/dL 06/02/2021 9:05 PM [facility] Albumin 3.7 3.4 - 5.0 g/dL 06/02/2021 9:05 PM [facility] Bilirubin Total 0.2 0.2 - 1.2 mg/dL 06/02/2021 9:05 PM [facility] Alkaline Phosphatase 84 40 - 150 U/L 06/02/2021 9:05 PM [facility] ALT 14 5 - 55 U/L 06/02/2021 9:05 PM [facility] AST 22 5 - 34 U/L 06/02/2021 9:05 PM [facility] Anion Gap 17 8 - 18 06/02/2021 9:05 PM [facility] BUN/Creatinine Ratio 20 7 - 23 06/02/2021 9:05 PM [facility] Osmolality Calculated 297 270 - 300 mOsm/kg 06/02/2021 9:05 PM [facility] Albumin/Globulin Ratio 1.0(L) 1.1 - 2.3 06/02/2021 9:05 PM [facility] eGFR by CKD-EPI >90 >=90 mL/min/1.7 3 m2 06/02/2021 9:05 PM [facility] Blood BLOOD SPECIMEN / Unknown Venipuncture / Unknown 06/02/2021 8:28 PM CENTRIFUGAL SCREEN TENDER 06/02/2021 8:39 PM [facility] Celso Miles MD LAB - [facility]MISTRY [facility] Organization Address City/State/ZIP Co de Phone Number [facility] [address] [place] [phone], [facility] [phone] * ALCOHOL ETHYL BLOOD (06/02/2021 8:28 PM [facility]) Ethanol (mg/dL) <10 <10 mg/dL 9:05 PM [facility] Ethanol Calculated (g/dL) <0.010 <0.010 g/dL 06/02/2021 9:05 PM [facility] Blood BLOOD SPECIMEN / Unknown Venipuncture / Unknown 06/02/2021 8:28 PM CENTRIFUGAL SCREEN TENDER 06/02/2021 8:39 PM [facility] - 06/02/2021 9:05 PM [facility] Ethanol Interp <10: None Detected. Depression of DENTAL SERVICE CHIEF: >100 mg/dl Potentially Critical: >250 mg/dl Potentially Fatal >400 mg/dl Ethanol in the patient's blood will contribute to the osmolar gap. Ethanol's contribution to the osmolar gap can be estimated by dividing the concentration of ethanol in mg/dL by 4.6. This test is for clinical use only and does not equal a GARCÍA for legal purposes. Celso Miles MD LAB - CHEMISTRY ROXYKamlesh YOUNGBLOODKIANA Performing Organization Address City/[facility]/ZIP Co de Phone Number [facility] [address] [place] [address], [facility] [phone] * EKG 12-LEAD (06/02/2021 8:04 PM CENTRIFUGAL SCREEN TENDER) Only the most recent of4 resultswithin the time period is included. [facility] Ventricular Rate 78 BPM [facility] Atrial Rate 78 BPM [facility] P-R Interval 192 ms [facility] QRS Duration ms 116 ms [facility] Q-T Interval ms 408 ms [facility] QTC Calculation (Bezet) 465 ms [facility] Calculated P [facility] 48 degrees [facility] Calculated R [facility] -69 degrees [facility] Calculated T [facility] 50 degrees [facility] Interpretation EKG NORMAL SINUS RHYTHM INCOMPLETE RIGHT BUNDLE BRANCH BLOCK LEFT ANTERIOR FASCICULAR BLOCK ABNORMAL ECG NO PREVIOUS ECGS AVAILABLE Confirmed by Kai Walters ([id number]) on 06/06/2021 8:05:36 AM [facility] 06/02/2021 8:04 PM CENTRIFUGAL SCREEN TENDER 06/06/2021 8:05 AM [facility] Celso Miles MD ECG ORDERABLES Performing Organization Address [facility] [[email or web address]] Co de Phone Number [facility] * URINE DRUG SCREEN IMMUNOASSAY (06/02/2021 7:52 PM CENTRIFUGAL SCREEN TENDER) [facility] Amphetamines Screen Urine Negative Negative: < 1000 ng/mL 06/02/2021 8:38 PM [facility] Barbiturates Screen Urine Negative Negative: < 200 ng/mL 06/02/2021 8:38 PM [facility] Benzodiazepine Screen Urine Negative Negative: < 200 ng/mL 06/02/2021 8:38 PM [facility] Opiates Urine Negative Negative: < 300 ng/mL 06/02/2021 8:38 PM [facility] Cocaine Metabolites Urine Negative Negative: < 300 ng/mL 06/02/2021 8:38 PM [facility] Phencyclidine Screen Urine Negative Negative: < 25 ng/ml 06/02/2021 8:38 PM [facility] Cannabinoids Screen Urine Negative Negative: <50 ng/mL 06/02/2021 8:38 PM [facility] Methadone Screen Urine Negative Negative: < 300 ng/mL 06/02/2021 8:38 PM [facility] Fentanyl Screen Urine Negative Negative: <1.0 ng/mL 06/02/2021 8:38 PM [facility] Urine URINE / Unknown Collection / Unknown 06/02/2021 7:52 PM CENTRIFUGAL SCREEN TENDER 06/02/2021 8:03 PM [facility] Narrative [facility] - 06/02/2021 8:38 PM [facility] The Urine Toxicology Screening Panel does not screen for Propoxyphene, Meprobamate, Carisoprodol, Trazodone, cwsc-wlp-vjcqrew medications and/or volatiles (Acetone, Isopropanol, Methanol or Ethylene Glycol). Ethanol, Salicylate, Acetaminophen, Tricyclic Antidepressants and several therapeutic drugs may be individually assayed in serum or plasma specimen. Toxicology testing by the [facility] is an aid to medical diagnosis and treatment of patients. No documented chain of custody was maintained. Results are intended to be used for clinical purposes only. ? Celso Miles MD LAB - URINE CHEMISTR Y ORDERABLES Performing Organization Address [facility]/State/[facility] [[email or web address] Co de Phone Number [facility] [address] [place] [address], [facility] [phone] * (ABNORMAL) GLUCOSE - POINT OF CARE (05/25/2021 7:52 PM CENTRIFUGAL SCREEN TENDER) Only the most recent of2 resultswithin the time period is included. Pathologist [facility] Glucose WB/POC 267(H) 70 - 106 mg/dL 05/25/2021 7:58 PM CENTRIFUGAL SCREEN TENDER [facility] Specimen Type Cap Fingerstick 2021 7:58 PM CENTRIFUGAL SCREEN TENDER [facility] Blood BLOOD SPECIMEN / Unknown 05/25/2021 7:52 PM CENTRIFUGAL SCREEN TENDER 05/25/2021 7:58 PM CENTRIFUGAL SCREEN TENDER Provider Unknown LAB - POINT OF CARE ORDERABLES [facility] [address] [place] [address] * VALPROIC ACID LEVEL (09/25/2020 8:05 PM CDT) Pathologist [facility] Valproic Acid Total 53 50 - 100 mcg/mL 09/25/2020 9:11 PM CDT [facility] Blood BLOOD SPECIMEN / Unknown Venipuncture / Unknown 09/25/2020 8:05 PM CDT 09/25/2020 8:13 PM CDT Travis Bone MD LAB - CHEMISTRY JOSE BERRY [facility] [address] [place] [address], [facility] [phone] * (ABNORMAL) BASIC METABOLIC PANEL (CALCIUM TOTAL) (01/14/2020 7:48 PM CDT) Pathologist [facility] Glucose 115(H) 70 - 105 mg/dL 01/14/2020 8:32 PM CDT [facility] Sodium 138 136 - 145 mmol/L 01/14/2020 8:32 PM CDT [facility] Potassium 3.6 3.5 - 5.1 mmol/L 01/14/2020 8:32 PM CDT [facility] Chloride 108(H) 98 - 107 mmol/L 01/14/2020 8:32 PM CDT [facility] CO2 21(L) 23 - 31 mmol/L 01/14/2020 8:32 PM CDT [facility] Calcium 8.5 8.4 - 10.4 mg/dL 01/14/2020 8:32 PM CDT [facility] Anion Gap 9 8 - 16 mmol/L 01/14/2020 8:32 PM CDT [facility] BUN 15 8.4 - 25.7 mg/dL 01/14/2020 8:32 PM CDT [facility] Creatinine 0.99 0.72 - 1.25 mg/dL 01/14/2020 8:32 PM CDT [facility] eGFR by MDRD >60 >60 mL/min/1.7 3m2 01/14/2020 8:32 PM CDT [facility] eGFR by MDRD >60 >60 mL/min/1.7 3m2 01/14/2020 8:32 PM CDT [facility] Blood BLOOD SPECIMEN / Unknown Venipuncture / Unknown 01/14/2020 7:48 PM CDT 01/14/2020 8:08 PM CDT Aleyda Petty DO LAB - CHEMISTRY ORD ERABLES Performing Organization Address City/[facility] [[email or web address]] Co de Phone Number [facility] [address] [place] [address] * LACTIC ACID BLOOD (01/14/2020 7:48 PM CDT) Pathologist [facility] Lactic Acid 1.09 0.5 - 2.2 mmol/L 01/14/2020 8:31 PM CDT [facility] Blood BLOOD SPECIMEN / Unknown Venipuncture / Unknown 01/14/2020 7:48 PM CDT 01/14/2020 8:12 PM CDT Aleyda Contreras Asemaria teresa DO LAB - CHEMISTRY ORD ERABLES Performing Organization Address City/[facility]/ZIP Co de Phone Number [facility] [address] [place] [address] * TYPE + SCREEN PANEL (12/02/2019 5:51 PM CDT) ABO Rh B POS 12/02/2019 7:56 PM CDT [facility] Comment:No history; collect retype. Antibody Screen NEG 0 7:56 PM CDT [facility] Blood Bank BLOOD SPECIMEN / Unknown Venipuncture / Unknown 12/02/2019 5:51 PM CDT 12/02/2019 6:07 PM CDT Thai Paulino DO LAB - BLOOD BANK ORD ERABLES Performing Organization Address [facility] [[email or web address]] Co de Phone Number [facility] [phone] [place] [address] * PT-INR (12/02/2019 5:51 PM CDT) Pathologist [facility] PT 13.2 12.1 - 14.8 sec 12/02/2019 6:25 PM CDT [facility] INR 1.1 0.9 - 1.1 12/02/2019 6:25 PM CDT [facility] Blood BLOOD SPECIMEN / Unknown Venipuncture / Unknown 12/02/2019 5:51 PM CDT 12/02/2019 6:07 PM CDT Narrative [facility] - 12/02/2019 6:25 PM CDT Conventional Warfarin Anticoagulant Therapy: INR Reference Range: ??2.0-3.0 Intensive Warfarin Anticoagulant Therapy: INR Reference Range: ? 2.5-3.5 Thai Paulino DO LAB - COAGULATION OR DERABLES Performing Organization Address [facility] [[email or web address]] Co de Phone Number [facility] [address] [place] [address] * (ABNORMAL) CREATININE - POCT INTERFACED (12/02/2019 5:32 PM CDT) Pathologist [facility] Creatinine POCT 0.65(L) 0.70 - 1.20 mg/dL 12/02/2019 5:44 PM CDT [facility] Blood BLOOD SPECIMEN / Unknown 12/02/2019 5:32 PM CDT 12/02/2019 5:44 PM CDT Thai Paulino DO LAB - POINT OF CARE ORDERABLES Performing Organization Address [facility] [[email or web address]] Co de Phone Number [facility] [address] [place], [place] [id number] * INR WHOLE BLOOD - POINT OF CARE (IP) STROKE (12/02/2019 5:30 PM CDT) INR POCT 1.0 0.9 - 1.2 [facility] POCT TESTING QC Verified Yes Yes [facility] POC T TESTING Blood BLOOD SPECIMEN / Unknown 12/02/2019 5:30 PM CDT Thai Paulino DO LAB - POINT OF CARE ORDERABLES [facility] POCT TESTING [address] [place], [place] [address] [phone] * CT BRAIN STROKE (12/02/2019 5:26 PM CDT) Anatomical Region Laterality Modality Head Computed Tomogra phy 12/02/2019 5:27 PM CDT Impressions 12/02/2019 5:29 PM CDT No acute intracranial abnormality. Encephalomalacia anterior right temporal lobe. *Reading Radiologist: Danial Chinchilla on 12/02/2019 at 5:29 PM Narrative 12/02/2019 5:[address] Brain Without Contrast Indication: Syncope and collapse. Comparison: None available Technique: Axial images of the brain were obtained without contrast and reconstructions performed. Findings: No cortical edema or acute intracranial hemorrhage. No mass effect or midline shift. No hydrocephalus. Encephalomalacia is identified in the anterior right temporal lobe. The calvarium is intact. Paranasal sinuses and mastoid air cells are clear. Prior right temporal parietal craniotomy. Procedure Note Danial Chinchilla MD - 12/02/2019 CT Brain Without Contrast Indication: Syncope and collapse. Comparison: None available Technique: Axial images of the brain were obtained without contrast and reconstructions performed. Findings: No cortical edema or acute intracranial hemorrhage. No mass effect or midline shift. No hydrocephalus. Encephalomalacia is identified in the anterior right temporal lobe. The calvarium is intact. Paranasal sinuses and mastoid air cells are clear. Prior right temporal parietal craniotomy. IMPRESSION No acute intracranial abnormality. Encephalomalacia anterior right temporal lobe. *Reading Radiologist: Danial Chinchilla on 12/02/2019 at 5:29 PM Thai Paulino DO CT ORDERABLES Care Teams [employer] Relationship Specialty Start Date End Date eSrgey Wilson MD PCP - General Internal Medicine 09/25/20
--- OUTSIDE RECORDS SUMMARY | 2024-05-24 02:22 | XMS_ITS | Encounter Summary ---
Author Organization [facility] Address [address] [place] [address] Care Team Providers Care Academic Affairs Dean Name Role Phone Unavailable Primary Care Provider Unavailabl e Reason for Visit * Reason Comments Syncope pt BIBEMS from [facility] with reports of sudden onset dizziness, syncope(fell back in seat) with a weird look eating inside; pt reports having a CT scan done x1 week ago and unknown fndings ; Encounter Details Date Type Department Care Team (Late st Contact Info) Description 12/02/2019 5:17 PM CDT - 12/02/2019 8:30 PM CDT Emergency ER at [address] [address] Thai Paulino DO [address] [place] [id number] Syncope and collapse (Primary Dx); Weakness Discharge Disposition: Home or Self Care Social [...] file Gender Identity Male 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 * Syncope (AfterCare(R) Instructions(ER/ED)) (Senegalese) documented in this encounter Progress Notes * Jackie Teague, SYLVIA - 12/02/2019 5:36 PM CDT 12/02/19 1735 NIH Stroke Scale Assessment Interval Baseline Level of Consciousness 0 LOC: Questions (Month and Age) 0 LOC: Commands (opens/closes, eyes/fists) 0 Best Gaze 0 Visual 0 Facial Palsy 0 Motor Arm Function - Right 0 Motor Arm Function - Left 0 Motor Leg - Right 0 Motor Leg - Left 2 (baseline per pt) Limb Ataxia 0 Sensory 0 Best Language 1 (baseline per pt) Dysarthria 0 Extinction and Inattention 0 NIH Total 3 Admit Date and Time- 12/02/2019 5:17 PM Code Stroke Page: [id number] Patient Arrival____1716 Code Team Arrival: 1715 ED MD Name ___Joaquínack ED MD Arrival Time to Patient _1716 Code Stroke Nurses in attendance: 1. Jakcie 2. ED RN Name ___[employer] Representative Name Kaitlyn LKW- 1640 Stroke Risk Factors- Obesity/Inactivity and Prior history of Stroke/Transient Ischemic Attack INR- 1.0 Cr- 0.65 Vital Signs- Vitals: 12/02/19 1725 BP: 120/64 Pulse: 80 Resp: 18 Temp: 98.5 ??F (36.9 ??C) SpO2: 98% Height: 1.753 m (5' 9 ) Blood Sugar- 134 POC INR Time Obtained or reason not obtained: Code Stroke Summary- Patient is a 54 year old Data Unavailable male who presents with a syncopal episode while eating at [facility]. Pt has been seen at [facility] in [place] (per pt) and pass out all the time. This one just lasted longer . Pt has a history of a stroke and seizures. NIH 3 but pt states he's almost back to normal CT head was ordered and completed. Code stroke was cancelled by Dr Paulino at 1735. Reason for not getting tPA (only applicable if LKW is less than 4.5 hours)- symptoms resolving Nursing Swallow Screener: Debrief Completed if tPA given- N\A Neuro MD paged: n/a Neuro MD return call: n/a Code end time: 1734 Total time: 25mins documented in this encounter ED Notes * Ita Hall - 12/02/2019 8:28 PM CDT Discharge instructions reviewed. Pt verbalized understanding. VSS. A&Ox4. Pt left with all belongings. * Ita Hall - 12/02/2019 7:09 PM CDT Report received from SYLVIA Hastings for transfer of pt care. * Darling Teixeira RN - 12/02/2019 5:35 PM CDT Code stroke cancelled at this time per MD Paulino * Thai Paulino DO - 12/02/2019 5:33 PM CDT [place] [id number] [facility] History Chief Complaint Patient presents with ??? Syncope pt BIBEMS from [facility] with reports of sudden onset dizziness, syncope(fell back in seat) witha weird look eating inside; pt reports having a CT scan done x1 week ago and unknown fndings ; HPI [age] male past medical history of hypertension, presents to the ER for evaluation of possiblesyncopal episode versus acute CVA. Per EMS patient was eating at [employer] when he had a collapse in brief loss of consciousness, upon EMS arrival patient was found to have dysarthria, and very generally weak. His speech continued to clear as he arrived to the hospital. Patient did not have any noticeable focal deficits per EMS. His fingerstick was normal. On arrival patient states he likely passed out this happen before. Denies any preceding chest pain shortness of breath nausea vomiting, palpitations, focal weakness, headache, vision changes. Patient states he was recently told he had anabnormal finding on a CT brain. Past Medical History: Diagnosis Date ??? Seizures pt reported ??? Speech abnormality speech impedement; pt reported No past surgical history on file. No family history on file. Social History Socioeconomic History ??? Marital status: Not on file Spouse name: Not on file ??? Number [...] file Gets together: Not on file Attends taoism service: Not on file Active member of [...] for chills and fever. HENT: Negative for sore throat. Eyes: Negative for discharge. Respiratory: Negative for cough and shortness of breath. Cardiovascular: Negative for chest pain, palpitations and leg swelling. Gastrointestinal: Negative for abdominal pain, diarrhea, nausea and vomiting. Genitourinary: Negative for dysuria and hematuria. Musculoskeletal: Negative for back pain and neck pain. Skin: Negative for rash. Neurological: Positive for dizziness, speech change, loss of consciousness and weakness. Negative for focal weakness and headaches. Psychiatric/Behavioral: Negative. All other systems reviewed and are negative. Physical Exam BP 120/64 Pulse 80 Temp 98.5 ??F (36.9 ??C) (Oral) Resp 18 Ht 1.753 m (5' 9 ) SpO2 98% Physical Exam Vitals signs and nursing note reviewed. Constitutional: General: He is awake. He is not in acute distress. HENT: Head: Normocephalic and atraumatic. Eyes: Extraocular Movements: Extraocular movements intact. Conjunctiva/sclera: Conjunctivae normal. Pupils: Pupils are equal, round, and reactive to light. Neck: Musculoskeletal: Normal range of motion. No muscular tenderness. Trachea: No tracheal deviation. Cardiovascular: Rate and Rhythm: Normal rate and regular rhythm. Pulses: Normal pulses. Heart sounds: Normal heart sounds, S1 normal and S2 normal. Pulmonary: Effort: Pulmonary effort is normal. No respiratory distress. Breath sounds: Normal breath sounds. No wheezing, rhonchi or rales. Abdominal: General: There is no distension. Palpations: Abdomen is soft. Tenderness: There is no abdominal tenderness. There is no guarding. Musculoskeletal: Right lower leg: No edema. Left lower leg: No edema. Skin: General: Skin is warm and dry. Capillary Refill: Capillary refill takes less than 2 seconds. Neurological: General: No focal deficit present. Mental Status: He is alert and oriented to person, place, and time. Mental status is at baseline. Comments: 5/5 strength in upper extremities proximally and distally 3/5 strength in left lower extremity chronic 5/5 strength right lower extremity No focal sensory deficits Normal [id number] Pupils equal round reactive Normal speech observed no dysarthria Psychiatric: Attention and Perception: Attention normal. Behavior: Behavior is cooperative. Medications No current outpatient medications on file. Procedures Procedures Lab/SPO2 Interpretation No results found for this visit on 12/02/19. CT BRAIN STROKE Final Result CT Brain Without Contrast Indication: Syncope and [...] Danial Chinchilla on 12/02/2019 at 5:29 PM Progress Notes ED Course ED Course as of Dec 01 2014 Tue Dec 02, [address] in CT shows old infarct, no bleeding on my read. [BS] ED Course User Index [BS] Thai Paulino DO Clinical Impressions as of Dec 01 2014 Syncope and collapse Weakness Medical Decision Making patient arrives with what sounds like syncopal episode while sitting down at a restaurant. His presentation is not consistent with acute CVA as he has no focal deficits that are new and no speech changes that persist. Stroke code was called on arrival, the patient was brought immediately to CT. Will check labs troponin, EKG . IV fluid bolus. Reassess EKG on arrival- normal sinus rhythm rate 80 left axis deviation and poor R-wave progression no ST segment changes or T-wave inversions no ectopy nonischemic EKG. Pulse Ox Interpretation: normal Saturation: (%) 98 Oxygen Delivery: Room air Interpretation: No hypoxia at this time. Rhythm strip interpretation: Normal sinus rhythm, no arrhythmia noted. Ventricular rate (bpm): 70 7pm - labs imaging and EKG are unremarkable patient remained stable on the monitor with no further events. When talking to a friend at bedside, she states patient has had multiple episodes of syncopein the past. He has been evaluated by his primary care doctor for this. 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 At this time he feels well he is stable and can be discharged for further outpatient management at this time. Patient seems agreeable this plan and understands he may return to the ER for any new worsening, or concerning symptoms Orders Placed This Encounter ??? CT BRAIN STROKE ??? CBC W AUTO DIFFERENTIAL ??? COMPREHENSIVE METABOLIC PANEL ??? PT-INR ??? TROPONIN I ??? TROPONIN I ??? CONSULT TO CHILD CARE COORDINATOR ??? EKG 12-LEAD ??? AND Linked Order Group ??? 0.9% NaCl injection 3 mL ??? 0.9% NaCl injection 1-10 mL * Darling Teixeira RN - 12/02/2019 5:31 PM CDT pt BIBEMS from [facility] with reports of sudden onset dizziness, syncope(fell back in seat) witha weird look eating inside; pt reports having a CT scan done x1 week ago and unknown fndings ; pt reports hx of seizures * Mahogany Zimmer RN - 12/02/2019 5:21 PM CDT Bed: 5 Expected date: Expected time: Means of arrival: Ambulance Comments: Code stroke; start at the stroke stop please. Paged out documented in this encounter Plan of Treatment Not on file documented as of this encounter Procedures Procedure Name Priority Date/Time Associated Diagnosis Comments TROPONIN I STAT 12/02/2019 5:51 PM CDT TYPE + SCREEN PANEL STAT 12/02/2019 5 :51 PM CDT PT-INR STAT 12/02/2019 5:51 PM CDT CBC W AUTO DIFFERENTIAL STAT 12/02/2019 5:51 PM CDT COMPREHENSIVE METABOLIC PANEL STAT 12/02/2019 5:51 PM CDT CREATININE - POCT INTERFACED Routine 12/02/2019 5:32 PM CDT EKG 12-LEAD STAT 12/02/2019 5:30 PM CDT Syncope and collapse Weakness INR WHOLE BLOOD - POINT OF CARE (IP) STROKE Routine 12/02/2019 5:[address] BRAIN STROKE STAT 12/02/2019 5:26 PM CDT Syncope and collapse documented in this encounter Results * TYPE + SCREEN PANEL (12/02/2019 5:51 PM CDT) Pathologist [facility] ABO Rh B POS 12/02/2019 7:56 PM CDT [facility] Comment:No history; collect retype. Antibody Screen NEG 0 7:56 PM CDT [facility] Blood Bank BLOOD SPECIMEN / Unknown Venipuncture / Unknown 12/02/2019 5:51 PM CDT 12/02/2019 6:07 PM CDT Thai Paulino DO LAB - BLOOD BANK ORD ERABLES Performing Organization Address City/[facility]/ZIP Co de Phone Number [facility] [address] * TROPONIN I (12/02/2019 5:51 PM CDT) [facility] Troponin I <0.010 <0.038 ng/mL 12/02/2019 6:28 PM CDT [facility] Blood BLOOD SPECIMEN / Unknown Venipuncture / Unknown 12/02/2019 5:51 PM CDT 12/02/2019 6:07 PM CDT Thai Paulino DO LAB - CHEMISTRY ORDE RABKIANA Performing Organization Address City/[facility] Co de Phone Number [facility] [address] [place] [address] * PT-INR (12/02/2019 5:51 PM CDT) [facility] PT 13.2 12.1 - 14.8 sec 12/02/2019 6:25 PM CDT [facility] INR 1.1 0.9 - 1.1 12/02/2019 6:25 PM CDT [facility] Blood BLOOD SPECIMEN / Unknown Venipuncture / Unknown 12/02/2019 5:51 PM CDT 12/02/2019 6:07 PM CDT Narrative [facility] - 12/02/2019 6:25 PM CDT Conventional Warfarin Anticoagulant Therapy: INR Reference Range: ??2.0-3.0 Intensive Warfarin Anticoagulant Therapy: INR Reference Range: ? 2.5-3.5 Thai Paulino DO LAB - COAGULATION OR DERABLES [facility] [address] [place] [address] * (ABNORMAL) COMPREHENSIVE METABOLIC PANEL (12/02/2019 5:51 PM CDT) Glucose 119(H) 70 - 105 mg/dL 12/02/2019 6:24 PM CDT [facility] Sodium 137 136 - 145 mmol/L 12/02/2019 6:24 PM CDT [facility] Potassium 3.5 3.5 - 5.1 mmol/L 12/02/2019 6:24 PM CDT [facility] Chloride 107 98 - 107 mmol/L 12/02/2019 6:24 PM CDT [facility] CO2 20(L) 23 - 31 mmol/L 12/02/2019 6:24 PM CDT [facility] Calcium 8.5 8.4 - 10.4 mg/dL 12/02/2019 6:24 PM CDT [facility] Anion Gap 10 8 - 16 mmol/L 12/02/2019 6:24 PM CDT [facility] BUN 18 8.4 - 25.7 mg/dL 12/02/2019 6:24 PM CDT [facility] Creatinine 1.00 0.72 - 1.25 mg/dL 12/02/2019 6:24 PM CDT [facility] Alkaline Phosphatase 69 40 - 150 U/L 12/02/2019 6:24 PM CDT [facility] ALT 20 0 - 61 U/L 12/02/2019 6:24 PM CDT [facility] AST 40(H) 5 - 34 U/L 12/02/2019 6:24 PM CDT [facility] Protein Total 6.7 6.4 - 8.3 gm/dL 12/02/2019 6:24 PM CDT [facility] Albumin 3.9 3.5 - 5.2 gm/dL 12/02/2019 6:24 PM CDT [facility] Bilirubin Total 0.3 0.2 - 1.2 mg/dL 12/02/2019 6:24 PM CDT [facility] eGFR by MDRD >60 >60 mL/min/1.7 3m2 12/02/2019 6:24 PM CDT [facility] eGFR by MDRD >60 >60 mL/min/1.7 3m2 12/02/2019 6:24 PM CDT [facility] Blood BLOOD SPECIMEN / Unknown Venipuncture / Unknown 12/02/2019 5:51 PM CDT 12/02/2019 6:07 PM CDT Thai Paulino DO LAB - CHEMISTRY JOSE BERRY [facility] [address] [place] [address] * (ABNORMAL) CBC W AUTO DIFFERENTIAL (12/02/2019 5:51 PM CDT) WBC 7.3 4.4 - 10.7 x10E9/L 12/02/2019 6:10 PM CDT [facility] WBC Corrected 12/02/2019 6:10 PM CDT [facility] RBC 4.25 3.80 - 5.40 x10E12/L 12/02/2019 6:10 PM CDT [facility] Hemoglobin 13.4 12.0 - 17.6 gm/dL 12/02/2019 6:10 PM CDT [facility] Hematocrit 41.3 35.2 - 51.7 % 12/02/2019 6:10 PM CDT [facility] MCV 97.2 80.7 - 98.3 fl 12/02/2019 6:10 PM CDT [facility] MCH 31.5 26.7 - 34.0 pg 12/02/2019 6:10 PM CDT [facility] MCHC 32.4 30.8 - 35.9 gm/dL 12/02/2019 6:10 PM CDT [facility] Platelet Count 176 153 - 416 x10E9/L 12/02/2019 6:10 PM CDT [facility] RDW-CV 13.9 12.1 - 14.9 % 12/02/2019 6:10 PM CDT [facility] MPV 9.7 9.4 - 12.9 fl 12/02/2019 6:10 PM CDT [facility] Neutrophils % 37.2(L) 44.0 - 73.0 % 12/02/2019 6:10 PM CDT [facility] Lymphocytes % 49.2(H) 20.0 - 43.0 % 12/02/2019 6:10 PM CDT [facility] Monocytes % 8.2 5.0 - 13.0 % 12/02/2019 6:10 PM CDT [facility] Eosinophils % 3.2 0.0 - 6.0 % 12/02/2019 6:10 PM CDT [facility] Basophils % 0.7 0.0 - 2.0 % 12/02/2019 6:10 PM CDT [facility] Immature Granulocytes 1.5(H) 0 - 1 % 12/02/2019 6:10 PM CDT [facility] Neutrophil Absolute 2.71 2.01 - 7.14 x10E9/L 12/02/2019 6:10 PM CDT [facility] Lymphocytes Absolute 3.58 1.07 - 3.94 x10E9/L 12/02/2019 6:10 PM CDT [facility] Monocytes Absolute 0.60 0.26 - 1.07 x10E9/L 12/02/2019 6:10 PM CDT [facility] Eosinophils Absolute 0.23 0 - 0.47 x10E9/L 12/02/2019 6:10 PM CDT [facility] Basophils Absolute 0.05 0 - 0.08 x10E9/L 12/02/2019 6:10 PM CDT [facility] Immature Granulocytes Absolute 0.11(H) 0.00 - 0.06 x10E9/L 12/02/2019 6:10 PM CDT [facility] nRBC Auto 0 /100 WBC 12/02/2019 6:10 PM CDT [facility] Blood BLOOD SPECIMEN / Unknown Venipuncture / Unknown 12/02/2019 5:51 PM CDT 12/02/2019 6:07 PM CDT Thai Schupack DO LAB - HEMATOLOGY ORD ERABLES Performing Organization Address [facility]/ZIP Co de Phone Number [facility] [address] [place] [address] * (ABNORMAL) CREATININE - POCT INTERFACED (12/02/2019 5:32 PM CDT) Pathologist [facility] Creatinine POCT 0.65(L) 0.70 - 1.20 mg/dL 12/02/2019 5:44 PM CDT [facility] Blood BLOOD SPECIMEN / Unknown 12/02/2019 5:32 PM CDT 12/02/2019 5:44 PM CDT Thai Paulino DO LAB - POINT OF CARE ORDERABLES Performing Organization Address [facility] de Phone Number [facility] [address] [place] [address] * EKG 12-LEAD (12/02/2019 5:30 PM CDT) [facility] Ventricular Rate 80 BPM [facility] Atrial Rate 80 BPM [facility] P-R Interval 192 ms [facility] QRS Duration ms 112 ms [facility] Q-T Interval ms 416 ms [facility] QTC Calculation (Bezet) 479 ms [facility] Calculated P [place] 48 degrees [facility] Calculated R [place] -63 degrees [facility] Calculated T [place] 26 degrees [facility] Interpretation EKG Normal sinus rhythm Left axis deviation Abnormal ECG Confirmed by Raymon Lacy ([id number]) on 12/03/2019 10:38:14 AM [facility] 12/02/2019 5:30 PM CDT 12/03/2019 10:38 AM CDT Thai Paulino DO ECG ORDERABLES Performing Organization Address [facility] Co de Phone Number [facility] * INR WHOLE BLOOD - POINT OF CARE (IP) STROKE (12/02/2019 5:30 PM CDT) Pathologist [facility] INR POCT 1.0 0.9 - 1.2 [facility] POCT TESTING QC Verified Yes Yes [facility] POC T TESTING Blood BLOOD SPECIMEN / Unknown 12/02/2019 5:30 PM CDT Thai Paulino DO LAB - POINT OF CARE ORDERABLES [facility]CT [facility] [address] [phone] * CT BRAIN STROKE (12/02/2019 5:26 PM [...] 5:29 [address] ORDERABLES documented in this encounter Visit Diagnoses Diagnosis Syncope and collapse- Primary Weakness Other malaise and fatigue documented in this encounter Administered Medications Inactive Administered Medications - up to 3 most recent administrations Medication Order MAR Action Action Date Dose Rate Site 0.9% NaCl injection 1-10 mL 1-10 mL, Intracatheter, PRN, Other, peripheral line flush, Starting on Sun12/02/19 at 1732, Until Sun12/02/19 at 2130, Flush peripheral IV catheter with 1-10 mL of normal saline before and after medications and prn to clear blood from the line or to verify patency. 0.9% NaCl injection 3 mL 3 mL, Intracatheter, EVERY 8 HOURS, First dose on Sun12/02/19 at 2200, Until Discontinued, Flush peripheral IV catheter with 3 mL of normal saline every 8 hours. documented in this encounter Active and Recently Administered Medications Times are shown in CDT. Scheduled Medication Order 11/30/2019 12/01/2019 12/02/2019 0.9% NaCl injection 3 mL(Linked Group 1) 3 mL, Intracatheter, EVERY 8 HOURS, First dose on Sun12/02/19 at 2200, Until Discontinued, Flush peripheral IV catheter with 3 mL of normal saline every 8 hours. PRN Medication Order 11/30/2019 12/01/2019 12/02/2019 0.9% NaCl injection 1-10 mL(Linked Group 1) 1-10 mL, Intracatheter, PRN, Other, peripheral line flush, Starting on Sun12/02/19 at 1732, Until Sun12/02/19 at 2130, Flush peripheral IV catheter with 1-10 mL of normal saline before and after medications and prn to clear blood from the line or to verify patency. Linked Groups Order Group 1: SALINE LOCK, INSERT AND MAINTAIN (CANCELED) Routine, CONTINUOUS, Starting on Sun12/02/19 at 1745, Until Specified, New collection And 0.9% NaCl injection 3 mLJump to med 3 mL, Intracatheter, EVERY 8 HOURS, First dose on Sun12/02/19 at 2200, Until Discontinued, Flush peripheral IV catheter with 3 mL of normal saline every 8 hours. And 0.9% NaCl injection 1-10 mLJump to med 1-10 mL, Intracatheter, PRN, Other, peripheral line flush, Starting on Sun12/02/19 at 1732, Until Sun12/02/19 at 2130, Flush peripheral IV catheter with 1-10 mL of normal saline before and after medications and prn to clear blood from the line or to verify patency. documented in this encounter
--- OUTSIDE RECORDS SUMMARY | 2024-05-24 02:23 | XMS_ITS | Clinical Summary ---
Author Organization [facility] Address [address] [place] [address] Phone Care Team Providers Care Shift Foreman Name Role Phone Sergey Wilson MD Primary Care Provider [phone] Allergies No known active allergies Medications Medication Sig Dispensed Refills Start Date End Date Status divalproex (DEPAKOTE) 500 mg delayed release tablet Take 500 mg by mouth 3 times daily. Active topiramate (TOPAMAX) 200 mg tablet Take 200 mg by mouth 2 times daily. Active naproxen (NAPROSYN) 500 mg tablet Take 1 Tablet (500 mg) by mouth 2 times daily with meals for five days then as needed after that. 20 Tablet 04/18/2021 Active doxycycline hyclate (VIBRAMYCIN) 100 mg tablet Take 1 Tablet (100 mg) by mouth 2 times daily. 14 Tablet 04/18/2021 Active Social History Tobacco Use Types Packs/Day Years Used Date Smoking Tobacco: Former Smokeless Tobacco: Never Sex and Gender Information Value Date Recorded Sex Assigned at Not on file Gender Identity Not on file Sexual Orientation Not on file Last Filed Vital Signs Vital Sign Reading Time Taken Comments Blood Pressure 113/75 04/18/2021 8:00 PM [employer] Pulse 78 04/18/2021 8:00 PM [employer] Temperature 36.9 ??C (98.4 ??F) 04/18/2021 3:26 PM CS T Respiratory Rate 18 04/18/2021 7:08 PM [employer] C [employer] Oxygen Saturation 95% 04/18/2021 8:00 PM [employer] C [employer] Inhaled Oxygen Concentration - - Weight 104.3 kg (230 lb) 04/18/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 Height 177.8 cm (5' 10 ) 04/18/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 Body Mass Index 33 04/18/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 Plan of Treatment Health Maintenance Due Date Last Done Comments PNEUMOCOCCAL VACCINE 0-64 YEARS (1 of 2 - PCV) 02/23/1970 01/12/2013 DIABETES ANNUAL FOOT EXAM 02/23/1982 DIABETES ANNUAL RETINAL EXAM 02/23/1982 DIABETES MICROALBUMIN ANNUAL SCREEN 02/23/1982 LDL CHOLESTEROL ANNUAL 02/23/1982 DTAP/TDAP/TD VACCINES (1 - Tdap) 02/23/1983 FIT-DNA Q 3 years 02/23/2009 FIT/FOBT Q 1 year 02/23/2009 Flex Sig/CT Colonography Q 5 years 02/23/2009 ZOSTER VACCINE (1 of 2) 02/23/2014 DIABETES HBA1C Q 6 MONTHS 09/12/2021 03/15/2021 INFLUENZA VACCINE (#1) 2023 , 02/25/2020, 02/18/2020, Additional history exists RSV VACCINE (60+ or ) (1 - Risk 60-74 years 1-dose series) 2024 COLORECTAL SCREENING 01/21/2025 01/21/2015 Colorectal Cancer Screening 01/21/2025 HEPATITIS B VACCINES Aged Out No long er eligible based on patient's age to complete this topic Care Teams Shift Foreman Relationship Specialty Start Date End Date Sergey Wilson MD [address] [place] [id number] PCP - General Internal Medicine 04/18/21
--- OUTSIDE RECORDS SUMMARY | 2024-05-24 02:23 | XMS_ITS | Encounter Summary ---
Author Organization [employer] [facility] Address [address] [place] [address] Care Team Providers Care Geologic Technician Name Role Phone Sergey Wilson MD Primary Care Provider [phone] Reason for Visit * Reason Comments Chest Pain Pt here with c/o rig ht sided CP onset 2 days ago. Pt reports pain present with inspiration. Cough also present x2-3 weeks. Pt denies COVID exposure. * Auth/Cert Specialty Diagnoses / Procedures Referred By Kirby maldonado Referred To Contact Emergency Medicine [facility] Emergency Dept [address] [place] [address] Referral ID Status Reason Start Date Expiration Date Visits Re quested Visits Authorized [id number] 1 1 Encounter Details Date Type Department Care Team (Late st Contact Info) Description 04/18/2021 6:55 PM COMMERCIAL FLOOR COVERING INSTALLER - 04/18/2021 9:35 PM [facility] Emergency [facility] [address] [place] [address] Angel Luis Alanis MD [address] [facility] [place] [address] Pleurisy (Primary Dx); Acute bronchitis, unspecified organism Discharge Disposition: Home or Self Care Social [...] Comments Blood Pressure 113/75 04/18/2021 8:00 PM COMMERCIAL FLOOR COVERING INSTALLER Pulse 78 04/18/2021 8:00 PM COMMERCIAL FLOOR COVERING INSTALLER Temperature 36.9 ??C (98.4 ??F) 04/18/2021 3:26 PM CS T Respiratory Rate 18 04/18/2021 7:08 PM COMMERCIAL FLOOR COVERING INSTALLER Oxygen Saturation 95% 04/18/2021 8:00 PM COMMERCIAL FLOOR COVERING INSTALLER Inhaled Oxygen Concentration - - Weight 104.3 kg (230 lb) 04/18/2021 3:26 PM COMMERCIAL FLOOR COVERING INSTALLER Height 177.8 cm (5' 10 ) 04/18/2021 3:26 PM COMMERCIAL FLOOR COVERING INSTALLER Body Mass Index 33 04/18/2021 3:26 PM COMMERCIAL FLOOR COVERING INSTALLER documented in this encounter Discharge Instructions * Attachments The following attachments cannot be sent through Care Everywhere. * Pleurisy (Lao) documented in this encounter Medications at Time of Discharge Medication Sig Dispensed Refills Start Date End Date divalproex (DEPAKOTE) 500 mg delayed release tablet Take 500 mg by mouth 3 times daily. topiramate (TOPAMAX) 200 mg tablet Take 200 mg by mouth 2 times daily. naproxen (NAPROSYN) 500 mg tablet Take 1 Tablet (500 mg) by mouth 2 times daily with meals for five days then as needed after that. 20 Tablet 04/18/2021 doxycycline hyclate (VIBRAMYCIN) 100 mg tablet Take 1 Tablet (100 mg) by mouth 2 times daily. 14 Tablet 04/18/2021 documented as of this encounter ED Notes * Noelle Denny RN - 04/18/2021 9:34 PM CST Pt verbalizes understanding of d/c instructions. Denies any questions. IV removed. Pt ambulatory with steady gait out of department. ERCIAL FLOOR COVERING INSTALLER * Malika Richardson RN - 04/18/2021 8:51 PM CST Provided pt with turkey sandwich, snacks, and milk per Dr. Alanis. ERCIAL FLOOR COVERING INSTALLER * Malika Richardson RN - 04/18/2021 8:33 PM CST 2 hr trop collected at this time. ERCIAL FLOOR COVERING INSTALLER * Malika Richardson RN - 04/18/2021 8:[address] Alanis at bedside to discuss plan of care at this time. ERCIAL FLOOR COVERING INSTALLER * Malika Richardson RN - 04/18/2021 7:27 PM CST 56 y.o M to the ED with c/o chest, back, and right foot pain. Pt reports that he is not having chest pain at this time but he is having back and right foot pain. Pt reports that he has been having this pain for a long time. Pt placed on CM, BP and pulse ox. VS as charted. RR even and unlabored. Pt rates pain a 4 in a scale of 0-10. Pt speaking in complete sentences. Pt A&O x4. Call light in reach. ERCIAL FLOOR COVERING INSTALLER * Malika Richardson RN - 04/18/2021 7:[address] Alanis at bedside. ERCIAL FLOOR COVERING INSTALLER * Angel Lusi Alanis MD - 04/18/2021 3:08 PM CST HISTORY OF PRESENT ILLNESS Reji Branch, a 56 y.o. male presents to the ED with a Chief Complaint of Chest Pain Subjective Documented Triage Chief Complaint: Chest pain 7:18 PM: Reji Branch is a 56 y.o. male with COPD and type 2 diabetes, who presents to the Emergency Department with complaints of chest pain and shortness of breath. Patient states he's had a productive cough for the past 2-3 weeks with yellow sputum. He then developed right sided pleuritic chest pain about 1.5 weeks ago that worsens with deep breaths. He also complains of right lower leg and right foot swelling. Patient has been using his albuterol inhaler more often without relief. History provided by: The patient and medical records Arrived by: Private vehicle Chest Pain Pain location: R chest Pain radiates to the back: yes Associated symptoms: cough and shortness of breath Cough: Progression: Unchanged Risk factors: diabetes mellitus and obesity REVIEW OF SYSTEMS Review of Systems Respiratory: Positive for cough and shortness of breath. Cardiovascular: Positive for chest pain and leg swelling. All other systems reviewed and are negative. PAST MEDICAL HISTORY REVIEWED MEDICAL: Patient has a past medical history of Anxiety, COPD (chronic obstructive pulmonary disease), Depression, Diabetes mellitus, High blood pressure, and Seizure. SURGICAL: Patient has a past surgical history that includes brain surgery (Right, 2012). FAMILY: Patient's family history is not on file. SOCIAL: reports that he has quit smoking. He has never used smokeless tobacco. No history on file. Social History Other Topics Concern ??? Not on file ALLERGIES Patient has no known allergies. HOME MEDICATIONS Discharge Medication List as of 04/18/2021 8:44 PM START taking these medications Details naproxen (NAPROSYN) 500 mg tablet Take 1 Tablet (500 mg) by mouth 2 times daily with meals. For five days then prn after that, Disp-20 Tablet, R-0 doxycycline hyclate (VIBRAMYCIN) 100 mg tablet Take 1 Tablet (100 mg) by mouth 2 times daily., Disp-14 Tablet, R-None CONTINUE these medications which have NOT CHANGED Details divalproex (DEPAKOTE) 500 mg delayed release tablet Take 500 mg by mouth 3 times daily. topiramate (TOPAMAX) 200 mg tablet Take 200 mg by mouth 2 times daily. Objective PHYSICAL EXAM INITIAL VS BP: 122/72 (04/18/21 152), Heart Rate: 80 bpm (04/18/21 152), Resp: 18 (04/18/21 152), Pulse: 80(04/18/21 152), Temp: 98.4 ??F (36.9 ??C) (04/18/211525), Temp src: Oral (04/18/211525), SpO2: 98 % (04/18/21 1908), Height: 5' 10 (177.8 cm) (04/18/21 152), Weight: 104.3 kg (230 lb) (04/18/211525), BMI (Calculated): 33 (04/18/21 1526) No LMP for male patient. Physical Exam Vitals and nursing note reviewed. Constitutional: General: He is not in acute distress. HENT: Head: Normocephalic. Eyes: General: Lids are normal. Conjunctiva/sclera: Conjunctivae normal. Cardiovascular: Rate and Rhythm: Normal rate and regular rhythm. Comments: Pulses intact Pulmonary: Effort: Pulmonary effort is normal. No accessory muscle usage. Breath sounds: Normal breath sounds. No decreased breath sounds, wheezing, rhonchi or rales. Abdominal: General: Bowel sounds are normal. Palpations: Abdomen is soft. Tenderness: There is no abdominal tenderness. Musculoskeletal: General: Normal range of motion. Cervical back: Neck supple. Right lower leg: No edema. Left lower leg: No edema. Skin: General: Skin is warm and dry. Findings: Rash present. Rash is papular (diffusely on back). Comments: No shingles, venous stasis changes in legs but no swelling Neurological: Mental Status: He is alert. Sensory: No sensory deficit. DIAGNOSTICS LAB: CBC WITH DIFFERENTIAL - Abnormal Result Value WBC 8.8 RBC 5.06 HEMOGLOBIN 14.1 HEMATOCRIT 45.0 MCV 88.9 MCH 27.9 MCHC 31.3 (*) RDW 14.2 RDW-STDEV 45.4 PLATELETS 185 MPV 9.7 NEUTROPHILS 50 LYMPHOCYTES 38 MONOCYTES 8 EOSINOPHILS 2 BASOPHILS 1 IMMATURE GRANULOCYTES 1 NEUTROPHIL ABSOLUTE 4.41 LYMPHOCYTE ABSOLUTE 3.35 MONOCYTE ABSOLUTE 0.74 EOSINOPHIL ABSOLUTE 0.18 BASOPHILS ABSOLUTE 0.04 IMMATURE GRANULOCYTES ABSOLUTE 0.06 (*) COMPREHENSIVE METABOLIC PANEL - Abnormal SODIUM 138 POTASSIUM 4.3 CHLORIDE 102 CO2 24 CALCIUM 9.1 BUN 16 CREATININE 0.78 GLUCOSE 122 (*) TOTAL PROTEIN 7.5 ALBUMIN 4.3 BILIRUBIN TOTAL 0.2 (*) ALKALINE PHOSPHATASE 103 AST 26 ALT 21 GFR >60 GFR, >60 ANION GAP 12 RSV, PCR DETECTION - Normal RSV by PCR Not Detected TROPONIN BASELINE, 5TH GEN - Normal TROPONIN T, BASELINE 5TH GEN 9 INFLUENZA A/B AND COVID-19 PCR PANEL - Normal Influenza A by PCR Not Detected Influenza B by PCR Not Detected COVID-19 PCR Not Detected TROPONIN 2 HR, 5TH GEN - Normal TROPONIN T, 2 HR 5TH GEN 10 DELTA 2HR TROPONIN T 1 D-DIMER - Normal D-DIMER QUANT <0.27 INFLUENZA A/B, RSV AND COVID-19 PCR PANEL RADIOLOGY: XR CHEST PA AND LATERAL 2 VW Radiologist Impression IMPRESSION: Unremarkable study. DICTATION LOCATION: Location 1 - [facility] EKG: sinus rhythm rate 78, IVCD, no STEMI, no signs of ischemia. PROCEDURES Procedures MEDICAL DECISION MAKING AND PLAN OF CARE ---On initial evaluation, examined patient and discussed plan for labs, EKG, and imaging. 8:46 PM: Patient updated on all test results. Discussed plan for discharge home. Will provide prescription for naproxen and Vibramycin. Patient is to follow up with Dr. Wilson (PCP). Return precautions, including if symptoms worsen, discussed. All questions answered. Patient understands and agrees with this plan. ED provider and ED nurse verbally discussed patient plan of care at this time. MDM Summary Statement: 56 year old male 3 weeks of URI symptoms now with pleuritic right chest pain. Differential includespneumonia, COVID, pneumo, PE, pleurisy. X-ray is clear. COVID negative, d-dimer negative. Likely pleurisy. History of COPD though. Will treat with doxy and NSAID's for pleurisy. Safe for discharge. Atypical for ACS. Negative workup. Given low suspicion, stress test not indicated. I have reviewed previous: notes I have reviewed current: imaging, ECG and labs I have reviewed nursing notes related to past medical history, social history, and review of systems and agree, unless otherwise noted. Discharge Medication List as of 04/18/2021 8:44 PM START taking these medications Details naproxen (NAPROSYN) 500 mg tablet Take 1 Tablet (500 mg) by mouth 2 times daily with meals. For five days then prn after that, Disp-20 Tablet, R-0 doxycycline hyclate (VIBRAMYCIN) 100 mg tablet Take 1 Tablet (100 mg) by mouth 2 times daily., Disp-14 Tablet, R-None CONTINUE these medications which have NOT CHANGED Details divalproex (DEPAKOTE) 500 mg delayed release tablet Take 500 mg by mouth 3 times daily. topiramate (TOPAMAX) 200 mg tablet Take 200 mg by mouth 2 times daily. LAST VS BP: 113/75 (04/18/211999), Heart Rate: 78 bpm (04/18/211999), Resp: 18 (04/18/211907), Pulse: 78(04/18/211999), Temp: 98.4 ??F (36.9 ??C) (04/18/21 1526), Temp src: Oral (04/18/21 152), SpO2: 95 % (04/18/211999) CLINICAL IMPRESSION Final diagnoses: [R09.1] Pleurisy (Primary) [J20.9] Acute bronchitis, unspecified organism DISPOSITION, EDUCATION AND MEDICATION RECONCILIATION Medications reconciled. See after visit summary for patient education on discharged patients. ED Disposition ED Disposition Condition User Date/Time Comment Discharge Stable Angel Luis Alanis MD SunApr 18, 2021 8:43 PM ATTESTATION STATEMENTS This note has been prepared by Rebekah Quintero acting as a scribe for Dr. Agnel Luis Alanis on 04/18/2021 at 9:31 PM. The scribe's documentation has been prepared under my direction and personally reviewed by me, elise, in its entirety on 04/19/21 at 1:09 AM. I confirm that the note above accurately reflects all work, treatment, procedures, and medical decision making performed by me. ERCIAL FLOOR COVERING INSTALLER documented in this encounter Plan of Treatment Not on file documented as of this encounter Procedures Procedure Name Priority Date/Time Associated Diagnosis Comments TROPONIN 2 HR, 5TH GEN Timed Study 04/18/2021 8:33 PM COMMERCIAL FLOOR COVERING INSTALLER XR CHEST PA AND LATERAL 2 VW Stat 04/18/2021 6:46 PM COMMERCIAL FLOOR COVERING INSTALLER INFLUENZA A/B, RSV AND COVID-19 PCR PANEL Stat 04/18/2021 6:38 PM COMMERCIAL FLOOR COVERING INSTALLER INFLUENZA A/B AND COVID-19 PCR PANEL Stat 04/18/2021 6:38 PM COMMERCIAL FLOOR COVERING INSTALLER RSV, PCR DETECTION Stat 04/18/2021 6: 38 PM COMMERCIAL FLOOR COVERING INSTALLER EXTRA TUBE (BLUE) Stat 04/18/2021 6:3 7 PM COMMERCIAL FLOOR COVERING INSTALLER EXTRA TUBE Stat 04/18/2021 6:37 PM COMMERCIAL FLOOR COVERING INSTALLER TROPONIN BASELINE, 5TH GEN Stat 04/18/2021 6:37 PM COMMERCIAL FLOOR COVERING INSTALLER CBC WITH DIFFERENTIAL Stat 04/18/2021 6:37 PM COMMERCIAL FLOOR COVERING INSTALLER D-DIMER Stat 04/18/2021 6:37 PM COMMERCIAL FLOOR COVERING INSTALLER COMPREHENSIVE METABOLIC PANEL Stat 04/18/2021 6:37 PM COMMERCIAL FLOOR COVERING INSTALLER EKG 12-LEAD Stat 04/18/2021 4:11 PM COMMERCIAL FLOOR COVERING INSTALLER documented in this encounter Results * TROPONIN 2 HR, 5TH GEN (04/18/2021 8:33 PM COMMERCIAL FLOOR COVERING INSTALLER) TROPONIN T, 2 HR 5TH GEN 10 <=15 ng/L 04/18/2021 9:15 PM COMMERCIAL FLOOR COVERING INSTALLER [facility] DELTA 2HR TROPONIN T 1 See Interp. 04/18/2021 9:15 PM COMMERCIAL FLOOR COVERING INSTALLER [facility] Blood Venipuncture / Unknown 04/18/2021 8:33 PM COMMERCIAL FLOOR COVERING INSTALLER 04/18/2021 8:42 PM COMMERCIAL FLOOR COVERING INSTALLER Narrative [facility] - 04/18/2021 9:15 PM COMMERCIAL FLOOR COVERING INSTALLER Troponin Detectable but normal range. Delta not changing. Angel Luis Alanis MD CHEMISTRY ORDERABLES [facility]# [id number] 5 [facility] [place] [address] * XR CHEST PA AND LATERAL 2 VW (04/18/2021 6:46 PM COMMERCIAL FLOOR COVERING INSTALLER) Anatomical Region Laterality Modality Chest Computed Radiogr aphy 04/18/2021 6:46 PM COMMERCIAL FLOOR COVERING INSTALLER Impressions 04/18/2021 6:52 PM COMMERCIAL FLOOR COVERING INSTALLER IMPRESSION: Unremarkable study. ?? DICTATION LOCATION: Location 1 - [facility] Narrative 04/18/2021 6:52 PM COMMERCIAL FLOOR COVERING INSTALLER CHEST 2 VIEWS ?? DATE: 04/18/2021 6:46 PM HISTORY: Chest pain. COMPARISON: None. ?? FINDINGS: No infiltrate, pneumothorax or pleural effusion is noted. The cardiac and mediastinal silhouettes are within normal limits. The visualized bony structures are unremarkable. Procedure Note Margarita Rinaldi MD - 04/18/2021 CHEST 2 VIEWS DATE: 04/18/2021 6:46 PM HISTORY: Chest pain. COMPARISON: None. FINDINGS: No infiltrate, pneumothorax or pleural effusion is noted. The cardiac and mediastinal silhouettes are within normal limits. The visualized bony structures are unremarkable. IMPRESSION: Unremarkable study. DICTATION LOCATION: Location 1 - [facility] Angel Luis Alanis MD DIAGNOSTIC IMAGING O RDERABLES * RSV, PCR DETECTION (04/18/2021 6:38 PM COMMERCIAL FLOOR COVERING INSTALLER) [facility] RSV by PCR NOT DETECTED Not Detected 04/18/2021 7:53 PM COMMERCIAL FLOOR COVERING INSTALLER [facility] Upper Respiratory ENTIRE NASOPHARYNX / Unknown Collection / Unknown 04/18/2021 6:38 PM COMMERCIAL FLOOR COVERING INSTALLER 04/18/2021 6:50 PM COMMERCIAL FLOOR COVERING INSTALLER Angel Luis Alanis MD MICRO - GEN ORDERABL ES COM [facility]# [id number] 5 [facility] [address] * INFLUENZA A/B AND COVID-19 PCR PANEL (04/18/2021 6:38 PM COMMERCIAL FLOOR COVERING INSTALLER) [facility] Influenza A by PCR NOT DETECTED Not Detected 04/18/2021 7:53 PM COMMERCIAL FLOOR COVERING INSTALLER [facility] Influenza B by PCR NOT DETECTED Not Detected 04/18/2021 7:53 PM COMMERCIAL FLOOR COVERING INSTALLER [facility] COVID-19 PCR NOT DETECTED Not Detected 04/18/20 7:53 PM COMMERCIAL FLOOR COVERING INSTALLER [facility] Upper Respiratory ENTIRE NASOPHARYNX / Unknown Collection / Unknown 04/18/2021 6:38 PM COMMERCIAL FLOOR COVERING INSTALLER 04/18/2021 6:50 PM COMMERCIAL FLOOR COVERING INSTALLER Narrative [facility] - 04/18/2021 7:53 PM COMMERCIAL FLOOR COVERING INSTALLER This test has been authorized by the FDA under an Emergency Use Authorization for use by authorized laboratories. ??This test has been validated in accordance with the FDA's guidance regarding Coronavirus Disease-2019 testing. ??Optimum specimen types and timing for peak viral levels during infection have not been determined. ??A negative RT-PCR result does not rule out infection with the 2019-Novel Coronavirus. Angel Luis Alanis MD MICROBIOLOGY - GENER AL ORDERABLES Performing Organization Address [facility] Co de Phone Number [facility] CLIA# [id number] [address] [place] [id number] * D-DIMER (04/18/2021 6:37 PM COMMERCIAL FLOOR COVERING INSTALLER) [facility] D-DIMER QUANT <0.27 <0.42 ug/mL FEU 04/18/2021 8:10 PM COMMERCIAL FLOOR COVERING INSTALLER [facility] Comment: The DIC reference range is not clearly established in uncomplicated pregnancies. ??Values above the upper limit of the reference range are common from the 31st to 40th week of . ??High negative predictive values for DVT have been reported with the current methodology, as part of a comprehensive medical examination, including risk stratification. Various clinical studies utilizing this method have shown that a result of <0.5 mcg/ml FEU excludes deep vein thrombosis and pulmonary embolism with high sensitivity when used in conjunction with a non-high clinical pre-test probability assessment. Verified by repeat analysis. Blood Venipuncture / Unknown 04/18/2021 6:37 PM COMMERCIAL FLOOR COVERING INSTALLER 04/18/2021 8:01 PM COMMERCIAL FLOOR COVERING INSTALLER Angel Luis Alanis MD HEMATOLOGY ORDERABLE S Performing Organization Address [facility]/ZIP Co de Phone Number [facility] CLAZ# [id number] [address] [place] [address] * EXTRA TUBE (BLUE) (04/18/2021 6:37 PM COMMERCIAL FLOOR COVERING INSTALLER) Blood Venipuncture / Unknown 04/18/2021 6:37 PM COMMERCIAL FLOOR COVERING INSTALLER 04/18/2021 8:01 PM COMMERCIAL FLOOR COVERING INSTALLER Angel Luis Alanis MD HEMATOLOGY ORDERABLE S [facility] - [facility] CLIA# [id number] [address] [place] [address] * (ABNORMAL) COMPREHENSIVE METABOLIC PANEL (04/18/2021 6:37 PM COMMERCIAL FLOOR COVERING INSTALLER) Pathologist [facility] SODIUM 138 136 - 145 mmol/L 04/18/2021 7:26 PM [facility] [employer] [facility] POTASSIUM 4.3 3.5 - 5.0 mmol/L 04/18/2021 7:26 PM [facility] [employer] [facility] CHLORIDE 102 98 - 107 mmol/L 04/18/2021 7:26 PM [facility] CO2 24 22 - 29 mmol/L 04/18/2021 7:26 PM [facility] CALCIUM 9.1 8.6 - 10.2 mg/dL 04/18/2021 7:26 PM [facility] BUN 16 6 - 20 mg/dL 04/18/2021 7:26 PM [facility] CREATININE 0.78 0.67 - 1.17 mg/dL 04/18/2021 7:26 PM [facility] GLUCOSE 122(H) 74 - 99 mg/dL 04/18/2021 7:26 PM [facility] TOTAL PROTEIN 7.5 6.7 - 8.6 g/dL 04/18/2021 7:26 PM [facility] ALBUMIN 4.3 3.5 - 5.2 g/dL 04/18/2021 7:26 PM [facility] [employer] [facility] BILIRUBIN TOTAL 0.2(L) 0.3 - 1.2 mg/dL 04/18/2021 7:26 PM [facility] [employer] [facility] ALKALINE PHOSPHATASE 103 40 - 129 U/L 04/18/2021 7:26 PM [facility] [employer] [facility] AST 26 <41 U/L 04/18/2021 7:26 PM [facility] [employer] [facility] ALT 21 <42 U/L 04/18/2021 7:26 PM [facility] GFR >60 mL/min/1.7 3 sq meter 04/18/2021 7:26 PM [facility] [employer] [facility] Comment: eGFR has not been validated for use in the elderly (> 70 years of age), women, patients with serious co-morbid conditions, or persons with extremes of body size or muscle mass and should also be interpreted with caution in patients with acute kidney failure, dialysis dependent patients, patients reporting exceptional dietary intake (e.g. vegetarian diet, high protein diets, creatine supplementation), and patients with severe liver disease. Based on National Kidney Disease Education Program If patient is , please refer to the GFR result. GFR, >60 mL/min/1.7 3 sq meter 04/18/2021 7:26 PM [facility] [employer] [facility] ANION GAP 12 8 - 16 mmol/L 04/18/2021 7:26 PM [facility] [employer] [facility] Blood Venipuncture / Unknown 04/18/2021 6:37 PM COMMERCIAL FLOOR COVERING INSTALLER 04/18/2021 6:50 PM COMMERCIAL FLOOR COVERING INSTALLER [facility] - 04/18/2021 7:26 PM COMMERCIAL FLOOR COVERING INSTALLER Samples containing indocyanine green cause interferences on Total and/or Direct Bilirubin and must not be measured. Angel Luis Alanis MD CHEMISTRY ORDERABLES [facility] [employer] [facility]# [id number] 5 [facility] [address] * (ABNORMAL) CBC WITH DIFFERENTIAL (04/18/2021 6:37 PM COMMERCIAL FLOOR COVERING INSTALLER) WBC 8.8 4.0 - 9.8 K/uL 04/18/2021 7:02 PM [facility] [employer] [facility] RBC 5.06 4.50 - 5.40 M/uL 04/18/2021 7:02 PM [facility] [employer] [facility] HEMOGLOBIN 14.1 13.6 - 16.5 g/dL 04/18/2021 7:02 PM COMMERCIAL FLOOR COVERING INSTALLER [facility] - [facility] HEMATOCRIT 45.0 40.0 - 48.0 % 04/18/2021 7:02 PM COMMERCIAL FLOOR COVERING INSTALLER [facility] - [facility] MCV 88.9 82.0 - 99.0 fL 04/18/2021 7:02 PM COMMERCIAL FLOOR COVERING INSTALLER [facility] [facility] - [facility] MCH 27.9 27.2 - 32.6 pg 04/18/2021 7:02 PM COMMERCIAL FLOOR COVERING INSTALLER [facility] - [facility] MCHC 31.3(L) 31.5 - 35.5 g/dL 04/18/2021 7:02 PM COMMERCIAL FLOOR COVERING INSTALLER [employer] [facility] - [facility] RDW 14.2 11.5 - 14.5 % 04/18/2021 7:02 PM COMMERCIAL FLOOR COVERING INSTALLER [employer] [facility] - [facility] RDW-STDEV 45.4 37.1 - 48.7 fL 04/18/2021 7:02 PM [employer] [facility] - [facility] PLATELETS 185 140 - 350 K/uL 04/18/2021 7:02 PM COMMERCIAL FLOOR COVERING INSTALLER [employer] [facility] - [facility] MPV 9.7 9.3 - 12.4 fL 04/18/2021 7:02 PM [employer] [facility] - [facility] NEUTROPHILS 50 % 04/18/2021 7:02 PM COMMERCIAL FLOOR COVERING INSTALLER [employer] [facility] - [facility] LYMPHOCYTES 38 % 04/18/2021 7:02 PM [employer] [facility] - [facility] MONOCYTES 8 % 04/18/2021 7:02 PM COMMERCIAL FLOOR COVERING INSTALLER [employer] [facility] - [facility] EOSINOPHILS 2 % 04/18/2021 7:02 PM COMMERCIAL FLOOR COVERING INSTALLER [employer] [facility] - . [facility] BASOPHILS 1 % 04/18/2021 7:02 PM COMMERCIAL FLOOR COVERING INSTALLER [employer] [facility] - . [facility] IMMATURE GRANULOCYTES 1 % 04/18/2021 7:02 PM COMMERCIAL FLOOR COVERING INSTALLER [facility] [facility] - [facility] Comment:IG (Immature Granulo cyte) count includes Metamyelocytes, Myelocytes, and Promyelocytes NEUTROPHIL ABSOLUTE 4.41 1.90 - 7.00 K/uL 04/18/2021 7:02 PM COMMERCIAL FLOOR COVERING INSTALLER [employer] [facility] - . [facility] LYMPHOCYTE ABSOLUTE 3.35 0.70 - 4.50 K/uL 04/18/2021 7:02 PM COMMERCIAL FLOOR COVERING INSTALLER [facility] - [facility] MONOCYTE ABSOLUTE 0.74 0.10 - 1.30 K/uL 04/18/2021 7:02 PM COMMERCIAL FLOOR COVERING INSTALLER [facility] - . [facility] EOSINOPHIL ABSOLUTE 0.18 0.00 - 0.70 K/uL 04/18/2021 7:02 PM [facility] - [facility] BASOPHILS ABSOLUTE 0.04 0.00 - 0.20 K/uL 04/18/2021 7:02 PM COMMERCIAL FLOOR COVERING INSTALLER [facility] - . [facility] IMMATURE GRANULOCYTES ABSOLUTE 0.06(H) 0.00 - 0.03 K/uL 04/18/2021 7:02 PM [facility] - [facility] Blood Venipuncture / Unknown 04/18/2021 6:37 PM COMMERCIAL FLOOR COVERING INSTALLER 04/18/2021 6:50 PM COMMERCIAL FLOOR COVERING INSTALLER Angel Luis Alanis MD HEMATOLOGY ORDERABLE S [facility] CLIA# [id number] [address] [place] [address] * TROPONIN BASELINE, 5TH GEN (04/18/2021 6:37 PM COMMERCIAL FLOOR COVERING INSTALLER) TROPONIN T, BASELINE 5TH GEN 9 <=15 ng/L 04/18/2021 7:26 PM COMMERCIAL FLOOR COVERING INSTALLER [facility] Blood Venipuncture / Unknown 04/18/2021 6:37 PM COMMERCIAL FLOOR COVERING INSTALLER 04/18/2021 6:50 PM COMMERCIAL FLOOR COVERING INSTALLER Narrative [facility] - [facility] - 04/18/2021 7:26 PM COMMERCIAL FLOOR COVERING INSTALLER Troponin Detectable but normal range. Angel Luis Alanis MD CHEMISTRY ORDERABLES [facility] CLIA# [id number] [address] [place] [address] * EKG 12-LEAD (04/18/2021 4:11 PM COMMERCIAL FLOOR COVERING INSTALLER) 04/18/2021 4:11 PM COMMERCIAL FLOOR COVERING INSTALLER Narrative INTERFACE SYSTEM - 04/18/2021 5:07 PM COMMERCIAL FLOOR COVERING INSTALLER ? Stationary ECG Study ? [facility] ? Test Date: ?04/18/2021 4:11 PM Pat Name: ? REJI BRANCH ? Department: ?? 37 ?Room: ? Gender: ? M ?Environmental Protection Economist: ?? conkrc : ?1965 ? Requested By: ? Order Number: [id number] ?Reading MD: ?? Nasim [place] ? Measurements Intervals ?[place] ? Rate: ? 78 ? P: ?29 VA: ? 226 ?QRS: ?261 QRSD: ? 115 ?T: ?51 QT: ? 404 ? QTc: ?461 ? Interpretive Statements ? 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 : 1965 Requested By: Order Number: [id number] Reading MD: Nasim [place] Measurements Intervals [place] Rate: 78 P: 29 VA: 226 QRS: 261 QRSD: 115 T: 51 QT: 404 QTc: 461 Interpretive Statements 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 INSTALLER by Nasim [place] Angel Luis Alanis MD ECG ORDERABLES INTERFACE SYSTEM Refer to clinic/hospital department documented in this encounter Visit Diagnoses Diagnosis Pleurisy- Primary Pleurisy without mention of effusion or current tuberculosis Acute bronchitis, unspecified organism documented in this encounter Administered Medications Inactive Administered Medications - up to 3 most recent administrations Medication Order MAR Action Action Date Dose Rate Site dextrose 5 % in water 250 mL flush bag 25 mL 25 mL, IV, SEE ADMIN INSTRUCTIONS, Starting on Sun04/18/21 at 1820, Until Sun04/18/21 at 2335, Routine sodium chloride 0.9 % 250 mL flush bag 25 mL 25 mL, IV, SEE ADMIN INSTRUCTIONS, Starting on Sun04/18/21 at 1820, Until Sun04/18/21 at 2335, Routine sodium chloride flush injection 5 mL 5 mL, IV, EVERY 12 HOURS, First dose on Sun04/18/21 at 1830, Until Discontinued, Routine sodium chloride flush injection 5 mL 5 mL, IV, SEE ADMIN INSTRUCTIONS, Starting on Sun04/18/21 at 1820, Until Sun04/18/21 at 2335, Routine documented in this encounter Active and Recently Administered Medications Times are shown in COMMERCIAL FLOOR COVERING INSTALLER. Scheduled Medication Order 04/16/2021 04/17/2021 04/18/2021 dextrose 5 % in water 250 mL flush bag 25 mL 25 mL, IV, SEE ADMIN INSTRUCTIONS, Starting on Sun04/18/21 at 1820, Until Sun04/18/21 at 2335, Routine sodium chloride 0.9 % 250 mL flush bag 25 mL 25 mL, IV, SEE ADMIN INSTRUCTIONS, Starting on Sun04/18/21 at 1820, Until Sun04/18/21 at 2335, Routine sodium chloride flush injection 5 mL 5 mL, IV, EVERY 12 HOURS, First dose on Sun04/18/21 at 1830, Until Discontinued, Routine 1830 (Due) sodium chloride flush injection 5 mL 5 mL, IV, SEE ADMIN INSTRUCTIONS, Starting on Sun04/18/21 at 1820, Until Sun04/18/21 at 2335, Routine documented in this encounter Additional Health Concerns Infection Onset Date Last Indicated Resolved Time R/O COVID-19 04/18/2021 04/18/2021 04/18/2021 7:53 PM COMMERCIAL FLOOR COVERING INSTALLER documented as of this encounter Care Teams Geologic Technician Relationship Specialty [place] [address] [place] [id number] PCP - General Internal Medicine 04/18/21 documented as of this encounter
== END 2024-05-17 04:16 | disposition left against medical advice (07) ==
PROVIDERS: Emergency Provider Emergency Medicine; PCP Internal Medicine
DX: R55 Syncope and collapse (principal)
CPT/HCPCS: 71046; 93005; 99199

== ENCOUNTER 2024-08-08 10:07 | Emergency (ER) | payer MEDICARE, MEDICAID, SELFPAY ==
[2024-08-08] VITALS (8 sets, daily range): BP systolic 118–138; BP diastolic 66–89; PULSE 74–84; RESP 15–20; TEMP 36.4; O2SAT 96–100
--- NOTE | ~2024-08-08 | CT_ITS ---
EXAMINATION: CT brain wo con DATE: 08/08/2024 12:02 INDICATION: Syncope. TECHNIQUE: Computed tomography (CT) of the head was performed without intravenous contrast. The mA wa s adjusted according to patient size. Iterative reconstruction technique was employed. The dose-lengt h product was 681.00 mGy-cm. COMPARISON: Head CT 09/12/2023 FINDINGS: There is chronic encephalomalacia involving the right temporal lobe and right frontoparieta l region. There is no intracranial hemorrhage, acute infarction, or abnormal intracranial mass lesion . There is ex vacuo dilatation of temporal horn of right lateral ventricle. There are likely changes of ocular lens replacement surgeries. There is mucosal thickening in the paranasal sinuses. The masto id air cells are normal. There are changes of right-sided craniotomy. IMPRESSION: 1. Chronic encephalomalacia involving the right temporal lobe and right frontoparietal region. Reviewed, dictated and finalized at location A. IMPRESSION: 1. Chronic encephalomalacia involving the right temporal lobe and right frontop arietal region.
--- NOTE | ~2024-08-08 | XR_ITS ---
CHEST RADIOGRAPH, PA AND LATERAL CLINICAL HISTORY: syncope, uri, COUGH . COMPARISON: 05/16/2024 TECHNIQUE: PA and lateral views of the chest. FINDINGS Loop recorder projects to the left of midline. The remainder of the cardiomediastinal silhouette is otherwise unremarkable. The lungs are clear. Visualized osseous structures and soft tissues are unremarkable. IMPRESSION: No focal infiltrate or effusion. Reviewed, dictated and finalized at location A.
--- NOTE | 2024-08-08 10:11 | ECG_ITS ---
Test Date: 2024-08-08 10:29:06 Measurements Intervals [place] Rate: 81 P: 41 IL: 200 QRS: -66 QRSD: 121 T: 31 QT: 388 QTc: 452 Interpretive Statements SINUS RHYTHM LEFT ANTERIOR FASCICULAR BLOCK [QRS AXIS <= -45, QR IN I, RS IN II] INFERIOR INFARCT, OLD Compared to ECG 05/16/2024 21:07:21 NO SIGNIFICANT CHANGES Electronically Signed On 08-08-2024 11:07:54 CDT by Yandel Covarrubias M.D.
--- NOTE | 2024-08-08 10:49 | ED_ITS ---
HPI - Syncope General Chief Complaint: Syncope Stated Complaint: syncopal Time Seen by Provider: 08/08/24 10:11 Source: patient and old records reviewed Mode of arrival: EMS Limitations: no limitations History of Present Illness HPI narrative: Patient is a 59-year-old male, with PMH of CVA, seizure disorder s/p temporal lobe resection, who presents the ED via EMS with report of syncope. Patient is well known to our facility. Hx of multiple previous similar syncopal episodes. Patient states he was walking out of a facility today with his sister when he began feeling funny and lightheaded. He then reports he had a syncopal episode. States this was similar to his previous episodes. States everything happened very fast and he quickly regained consciousness. EMS was called by sister. Patient states he feels somewhat weak and lightheaded currently. Denies chest pain, headache, focal weakness or numbness. Related Data Home Medications ?Medication ?Instructions ?Recorded ?Confirmed ?Last Taken ?Type Topamax 400 mg PO DAILY 04/04/19 12/27/22 11/05/19 History divalproex 500 mg tablet,delayed 500 mg PO Q12H 04/04/19 12/27/22 11/05/19 History release (Depakote) albuterol sulfate 90 mcg/actuation 2 inh inhalation Q4H PRN Shortness 11/05/19 12/27/22 11/05/19 History aerosol inhaler Of Breath aspirin 81 mg chewable tablet 81 mg PO DAILY 11/05/19 12/27/22 11/05/19 History atorvastatin 10 mg tablet 10 mg PO HS 11/05/19 12/27/22 11/04/19 History enalapril maleate 5 mg tablet 5 mg PO DAILY 11/05/19 12/27/22 11/05/19 History fenofibrate 160 mg tablet 160 mg PO DAILY 11/05/19 12/27/22 11/05/19 History fluticasone 250 mcg-salmeterol 50 1 inh inhalation BID 11/05/19 12/27/22 11/05/19 History mcg/dose blistr powdr for inhalation (Advair Diskus) Allergies Allergy/AdvReac Type Severity Reaction Status Date / Time phenobarbital AdvReac Unknown Other Verified 07/21/24 13:11 Review of Systems 2 Review of Systems: All systems reviewed & are unremarkable except as noted in HPI. All systems reviewed & are unremarkable except as noted in HPI and below [facility] Past Medical History Medical History Head trauma Hyperlipidemia Hypertension Arthritis CVA (cerebral vascular accident) Epilepsy Anxiety Depression IBS (irritable bowel syndrome) GI bleed GERD (gastroesophageal reflux disease) Sleep apnea Asthma Diabetes COPD (chronic obstructive pulmonary disease) Surgical History Surgical History History of open reduction and internal fixation (ORIF) procedure Hx of craniotomy temporal lobe resection Family History Family History Mother Hypertension Congestive heart failure Social History Social History Social History: The patient is single and never had any children. He lives alone. He is on disability. Surrogate decision maker: Sophia Pozo (mother) Smoking status: Never smoker Alcohol intake: never Substance use: never Substance use type: does not use Lack of Transportation: YES Lack of Food: Never True Current Housing: I Have Housing Concerned About Future Housing: YES Difficulty Paying Gas/Electric Bills: Decline to Answer Difficulty Paying for Meds: No Currently Unemployed: No Education: Grade School Difficulty w/ Childcare or Family Care: No Living arrangements: with family Gender identity (if verbalized by the patient): Male Sexual Orientation (if Verbalized by the Patient): Straight or Heterosexual Spiritual care concerns: No Exam 2 Narrative: GENERAL: Well appearing, obese with BMI of 32.9, non-toxic, in no acute distress. HEAD: Normocephalic, atraumatic. RESPIRATORY: Airway patent, respirations nonlabored. Clear to auscultation bilaterally, no rales, rhonchi, wheezing. CARDIOVASCULAR: Regular rate and rhythm without murmurs, rubs, or gallops. MUSCULOSKELETAL: Moves all extremities. No gross deformities. SKIN: Warm, dry, normal color. NEURO: A&O X3. Speech clear. Cranial nerves II-XII grossly intact. No ataxic movements. Strength 5 of 5 in upper/ lower extremities bilaterally. No pronator drift. Equal executive director strength bilaterally. PSYCHIATRIC: Appropriate mood and affect. Normal interaction. Course Vital Signs Vital signs: Vital Signs Temperature 97.5 F L 08/08/24 10:07 Pulse Rate 84 08/08/24 10:07 Respiratory Rate 18 08/08/24 10:07 Blood Pressure 123/66 08/08/24 10:07 Pulse Oximetry 96 08/08/24 10:07 Oxygen Delivery Room Air 08/08/24 10:07 Temperature 97.5 F L 08/08/24 10:07 Pulse Rate 78 08/08/24 16:38 Respiratory Rate 16 08/08/24 16:38 Blood Pressure 138/86 08/08/24 16:38 Pulse Oximetry 99 08/08/24 16:38 Oxygen Delivery Room Air 08/08/24 10:07 MDM - Syncope MDM Narrative Medical decision making narrative: Patient presented to ED status post syncopal episode. History of multiple previous syncopal episodes. Well known to our facility. Vital signs are stable today. Patient did report feeling somewhat lightheaded and weak currently. No significant orthostatic hypotension, but will initiate fluids. EKG without ischemic changes. No changes from previous. Laboratory studies are unremarkable. No leukocytosis or anemia. Stable electrolytes. Stable kidney function. Lactic acid within normal range at 1.6. Troponin undetectable. EKG without ischemic changes. Viral swabs are negative. CT brain with chronic findings, no acute changes. Chest x-ray is clear. Pacemaker was interrogated and no worrisome events. No events today. Overall reassuring/non revealing workup. Feel patient is safe for discharge home. He has had numerous previous similar episodes. He does feel today's episode was similar to his previous. He feels comfortable going home and following up with primary care doctor as an outpatient. Patient did express concern over his current housing situation. Had previously been living with his brother, but states his brother recently kicked him out. Care coordination was consulted and suspected patient extensively. He was given numerous resources for local assisted living and nursing homes. Sister here to pick patient up. Patient has a hotel room pain for for the next couple of nights. Given return precautions. He agrees with plan. Discharged in stable condition. Medical Records Attestation: I reviewed the patient's medical records. Lab Data Attestation: I reviewed the patient's lab results. 08/08/24 11:05 08/08/24 11:05 Labs: Lab Results 08/08/24 08/08/24 Range/Units 11:05 11:06 WBC 4.7 (4.5-10.0) K/mm3 RBC 4.55 L (4.6-6.20) M/mm3 Hgb 14.0 (14.0-18.0) g/dL Hct 43.4 (42.0-52.0) % MCV 95.4 (80-100) fl MCH 30.8 (26-34) pg MCHC 32.3 (32-36) g/dl RDW 13.0 (11.5-14.5) % Plt Count 189 (150-375) k/mm3 MPV 9.5 (7.4-10.4) fl Immature Gran % (Auto) 0.4 (0-0.5) % Neut % (Auto) 45.3 L (45.5-73.1) % Lymph % (Auto) 40.9 (18.3-44.2) % [place] % (Auto) 10.1 H (2.6-8.5) % Eos % (Auto) 2.5 (0-4.4) % Baso % (Auto) 0.8 (0.2-1.2) % Lymph # (Auto) 1.94 (0.9-3.2) K/mm3 [place] # (Auto) 0.5 (0.1-0.6) K/mm3 Eos # (Auto) 0.1 (0-0.3) K/mm3 Baso # (Auto) 0.0 (0.0-0.1) K/mm3 Abs Immat Gran (auto) 0.02 (0.00-0.031) K/mm3 Absolute Neuts (auto) 2.1 (1.3-6.7) K/mm3 Absolute Nucleated RBC 0.000 (0.0-0.012) K/mm3 Nucleated RBC % 0.0 (0.0-0.2) % PT 13.8 (11.1-14.7) Seconds INR 1.0 APTT 23.1 (22.3-36.8) Seconds Sodium 139 (137-145) mmol/L Potassium 4.4 (3.4-5.0) mmol/L Chloride 108 H (98-107) mmol/L Carbon Dioxide 21 L (22-30) mmol/L Anion Gap 10 (4-12) mmol/L BUN 13 D (9-20) mg/dL Creatinine 0.81 (0.7-1.3) mg/dL Estim Creat Clear Calc 99 ml/min Estimated GFR > 60 (59 - ) Glucose 192 H (65-110) mg/dL Lactic Acid 1.6 (0.7-2.0) mmol/L Calcium 9.3 (8.4-10.2) mg/dL Magnesium 2.2 (1.6-2.3) mg/dL Total Bilirubin 0.4 (0.2-1.3) mg/dL AST 45 (17-59) U/L ALT 30 (6-50) U/L Alkaline Phosphatase 91 (38-126) U/L Troponin I < 0.012 (0.000-0.034) ng/mL Total Protein 7.0 (6.3-8.2) g/dL Albumin 4.1 (3.5-5.1) g/dL Influenza A (RT-PCR) Negative (Negative) Influenza B (RT-PCR) Negative (Negative) RSV (RT-PCR) Negative (Negative) SARS-CoV-2 RNA (RT-PCR) Negative (Negative) Imaging Data Attestation: I personally reviewed and interpreted this imaging study as follows: Radiologist's impression: ITS Impressions Chest X-Ray 08/08/24 12:28 IMPRESSION: No focal infiltrate or effusion. Head CT 08/08/24 12:29 IMPRESSION: 1. Chronic encephalomalacia involving the right temporal lobe and right frontoparietal region. ECG Data EKG #1: Attestation: I personally reviewed and interpreted this ECG as follows: ECG completion date: 08/08/24 ECG completion time: 10:29 EKG Interpretation: normal rate (81), sinus rhythm, non-specific ST changes and other (Left anterior fascicular block, consistent with previous) Discharge Plan Discharge Clinical Impression: Syncope and collapse Patient Disposition: Home, Self-Care Condition: Stable Instructions: Antibiotic Form, Syncope (ED) Additional Instructions: Your workup here was reassuring. Follow-up closely with your primary care doctor for further evaluation. Stay well hydrated. Return to the ED if you experience recurrent issues, feeling very dizzy or lightheaded, unable to keep down food or drink, chest pain, difficulty breathing, numbness or weakness of arm or leg, or any other symptoms of concern. Patient Language: Gambian Prescriptions: No Action famotidine 40 mg tablet 40 mg PO DAILY Qty: 30 3RF loratadine [Claritin] 10 mg tablet 10 mg PO DAILY PRN (Reason: allergy symptoms) Qty: 10 0RF promethazine 25 mg tablet 25 mg PO Q6H PRN (Reason: nausea and vomiting) Qty: 7 0RF ibuprofen 800 mg tablet 800 mg PO TID PRN (Reason: pain) Qty: 20 0RF amoxicillin-pot clavulanate [Augmentin] 875-125 mg Tablet 1 tablet PO Q12HR Qty: 8 0RF meclizine 12.5 mg tablet 12.5 mg PO TID PRN (Reason: dizziness) Qty: 14 0RF divalproex [Depakote] 500 mg Tablet,Delayed Release (Dr/Ec) 500 mg PO Q12H Rx Instructions: 1000mg in AM & 500mg at night Topamax 400 mg PO DAILY fluticasone propion-salmeterol [Advair Diskus] 250-50 mcg/dose blister with device 1 inh INHALATION BID enalapril maleate 5 mg tablet 5 mg PO DAILY atorvastatin 10 mg tablet 10 mg PO HS aspirin 81 mg tablet,chewable 81 mg PO DAILY albuterol sulfate 90 mcg/actuation HFA aerosol inhaler 2 inh INHALATION Q4H PRN (Reason: Shortness Of Breath) fenofibrate 160 mg tablet 160 mg PO DAILY citalopram 40 mg tablet See Rx Instructions .ROUTE .COMPLEX Qty: 30 0RF Dose Instruction: TAKE 1 TABLET(40 MG) BY MOUTH EVERY MORNING Rx Instructions: TAKE 1 TABLET(40 MG) BY MOUTH EVERY MORNING cyclobenzaprine 10 mg tablet See Rx Instructions .ROUTE .COMPLEX PRN (Reason: muscle spasm) Qty: 60 0RF Dose Instruction: TAKE 1 TABLET BY MOUTH TWICE DAILY Rx Instructions: TAKE 1 TABLET BY MOUTH TWICE DAILY PRN; nortriptyline 75 mg capsule See Rx Instructions .ROUTE .COMPLEX Qty: 180 0RF Dose Instruction: TAKE 1 CAPSULE BY MOUTH TWICE DAILY Rx Instructions: TAKE 1 CAPSULE BY MOUTH TWICE DAILY Follow-up/Referrals: Steve,MD Sergey [Primary Care Provider] - Time of Disposition: 13:14
[2024-08-08 11:12] LABS: Basophils Percent Auto 0.8 % (0.2-1.2); Eosinophils Absolute Auto 0.1 K/mm3 (0-0.3); Eosinophils Percent Auto 2.5 % (0-4.4); Hematocrit 43.4 % (42.0-52.0); Immature Granulocyte Absolute 0.02 K/mm3 (0.00-0.031); Immature Granulocyte Percent A 0.4 % (0-0.5); Lymphocytes Absolute Auto 1.94 K/mm3 (0.9-3.2); Lymphocytes Percent Auto 40.9 % (18.3-44.2); Mean Corpuscular HGB Conc 32.3 g/dl (32-36); Mean Corpuscular Hemoglobin 30.8 pg (26-34); Mean Corpuscular Volume 95.4 fl (80-100); Mean Platelet Volume 9.5 fl (7.4-10.4); Monocytes Absolute Auto 0.5 K/mm3 (0.1-0.6); Monocytes Percent Auto 10.1 % (2.6-8.5); Neutrophils Absolute Auto 2.1 K/mm3 (1.3-6.7); Neutrophils Percent Auto 45.3 % (45.5-73.1); Platelet Count Result 189 k/mm3 (150-375); Red Blood Count 4.55 M/mm3 (4.6-6.20); White Blood Count 4.7 K/mm3 (4.5-10.0)
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
--- OUTSIDE RECORDS SUMMARY | 2024-08-08 11:19 | XMS_ITS | Data Portability ---
Author Organization [facility] Address [address] [place] [id number] Care Team Providers Care Weed Thinner Name Role Phone MINA WILSON Primary Care Provider Unavailabl e Assessment Encounter Date Assessment Date Assessment LastModified by Organization Details LastModified Time 11/06/2023 11/06/2023 his diagnosis an d assessment and plan and management of those diagnosis have been discussed all questions have been answered some amoxicillin for his URI with bacterial superinfection follow up with me in 3-4 months Not available 11/18/2023 20:29:01 02/05/2024 02/05/2024 his [...] follow up with me in 3 months Not available 03/02/2024 18:29:36 03/11/2024 03/11/2024 anuel-nadia montelongo get x-ray healthy lifestyle care instructions CMP lipid A1c follow up 2-3 months he still sees Neurology for his ongoing neurological issues [email or web address] Not available 03/11/2024 13:32:53 04/23/2024 04/23/2024 Keflex t.i.d. 50 0 mg 10 days he does not improve he will call back [email or web address] Not available 04/26/2024 15:00:38 06/18/2024 06/18/2024 doxycycline 100 b.i.d. 1 week he can not tolerate the compression socks he will keep his regular follow up but let me know how he is doing after he is done with the antibiotics [email or web address] Not available 06/22/2024 17:01:41 Plan of Treatment Reminders Order Date Submit Date Provider Last Modified By Organization Details Last Modified Time Details Appointments ANY 15 2024 10:15A M Mina Wilson MD Not available Not available Not available Lab None recorded. Referral None recorded. Procedures None recorded. Surgeries None recorded. Imaging XR, finger(s) 2023 024 [facility] ([facility]), [address] [place], [address], 03/11/2024 14:40:53 Medication Orders doxycycli ne hyclate 100 mg tablet 2024 025 [facility] #[id number], [address], [place], [id number], 08/07/2024 09:49:12 cephalexi n 500 mg capsule 2023 025 [id number], [address], [place], [id number], 06/18/2024 16:57:13 amoxicill in 500 mg capsule 2023 024 [id number], [address], [place], [id number], 02/05/2024 10:45:04 Patient TargetsNo targets recorded. Patient Instructions Encounter Date Encounter Id Patient Instructions Last Modified By Organization Details Last Modified Time 11/06/2023 [id number] A healthy lifestyle: care instructions Not available 11/06/2023 13:25:15 02/05/2024 [id number] A healthy lifestyle: care instructions Not available 03/02/2024 18:29:51 03/11/2024 [id number] A healthy lifestyle: care instructions [email or web address] Not available 03/11/2024 12:48:21 06/18/2024 [id number] A healthy lifestyle: care instructions Not available 06/18/2024 18:02:36 Reason for Referral None Reported. Results Created Date Observation Date Name Description Value Unit Range Abnormal Flag Note LastModifiedBy Organization Detail LastModifiedTime 04/17/20 24 04/17/2024 Prost ate speci fic Ag [Mass /volu me] in Serum or Plasm a PSA medicare screen PSA medic are scree n Not Available Not Available 06/25/2024 16:41:09 04/17/20 24 04/17/2024 Lipid 1995 panel - Serum or Plasm a cholesterol low zenon stero l Not Available Not Available 06/25/2024 16:41:09 04/17/20 24 04/17/2024 Lipid 1996 panel - Serum or Plasm a triglyceride s high trigl yceri rajeev Not Available Not Available 06/25/2024 16:41:09 04/17/20 24 04/17/2024 Lipid 1995 panel - Serum or Plasm a HDL cholesterol low HDL zenon stero l Not Available Not Available 06/25/2024 16:41:09 04/17/20 24 04/17/2024 Lipid 1995 panel - Serum or Plasm a LDL cholesterol, calculated LDL zenon stero l, calcu lated Not Available Not Available 06/25/2024 16:41:09 04/17/20 24 04/17/2024 Compr ehens madi metab olic 1999 panel - Serum or Plasm a sodium sodiu m Not Available Not Available 06/25/2024 16:41:09 04/17/20 24 04/17/2024 Compr ehens madi metab olic 1999 panel - Serum or Plasm a potassium potas sium Not Available Not Available 06/25/2024 16:41:09 04/17/20 24 04/17/2024 Compr ehens madi metab olic 1999 panel - Serum or Plasm a chloride high chlor jose luis Not Available Not Available 06/25/2024 16:41:09 04/17/20 24 04/17/2024 Compr ehens madi metab olic 1999 panel - Serum or Plasm a carbon dioxide low carbo n dioxi de Not Available Not Available 06/25/2024 16:41:09 04/17/20 24 04/17/2024 Compr ehens madi metab olic 2000 panel - Serum or Plasm a anion gap low anion gap Not Available Not Available 06/25/2024 16:41:09 04/17/20 24 04/17/2024 Compr ehens madi metab olic 2000 panel - Serum or Plasm a glucose high gluco se Not Available Not Available 06/25/2024 16:41:09 04/17/20 24 04/17/2024 Compr ehens madi metab olic 2000 panel - Serum or Plasm a BUN high BUN Not Available Not Availa ble 06/25/2024 16:41:09 04/17/20 24 04/17/2024 Compr ehens madi metab olic 2000 panel - Serum or Plasm a creatinine creat inine Not Available Not Available 06/25/2024 16:41:09 04/17/20 24 04/17/2024 Compr ehens madi metab olic 2000 panel - Serum or Plasm a GFR >60 GFR Not Available Not Availa ble 06/25/2024 16:41:09 04/17/20 24 04/17/2024 Compr ehens madi metab olic 2000 panel - Serum or Plasm a alkaline phosphatase alkal ine phosp hatas e Not Available Not Available 06/25/2024 16:41:09 04/17/20 24 04/17/2024 Compr ehens madi metab olic 2000 panel - Serum or Plasm a alanine aminotransfe rase nick ne amino trans feras e Not Available Not Available 06/25/2024 16:41:09 04/17/20 24 04/17/2024 Compr ehens madi metab olic 2000 panel - Serum or Plasm a aspartate aminotransfe rase high aspar silva amino trans feras e Not Available Not Available 06/25/2024 16:41:09 04/17/20 24 04/17/2024 Compr ehens madi metab olic 2000 panel - Serum or Plasm a bilirubin, total bilir ubin, total Not Available Not Available 06/25/2024 16:41:09 04/17/20 24 04/17/2024 Compr ehens madi metab olic 2000 panel - Serum or Plasm a calcium calci um Not Available Not Available 06/25/2024 16:41:09 04/17/20 24 04/17/2024 Compr ehens madi metab olic 2000 panel - Serum or Plasm a total protein total prote in Not Available Not Available 06/25/2024 16:41:09 04/17/20 24 04/17/2024 Compr ehens madi metab olic 2000 panel - Serum or Plasm a albumin album in Not Available Not Available 06/25/2024 16:41:09 04/17/20 24 04/17/2024 Compr ehens madi metab olic 1999 panel - Serum or Plasm a globulin globu alejandro Not Available Not Available 06/25/2024 16:41:09 04/17/20 24 04/17/2024 Compr ehens madi metab olic 1999 panel - Serum or Plasm a A/G ratio A/G ratio Not Available Not Available 06/25/2024 16:41:09 04/17/20 24 04/17/2024 Hemog lobin A1c/H emogl obin. total in Blood by HPLC hemoglobin A1C/hemoglob in.total in blood high HA1C Not Available Not Available 06/14 16:41:09 07/10/19 25 07/10/2024 Influ nikki virus A and B and SARS- CoV-2 (COVI D-19) and Respi rator y syncy tial virus RNA panel - Respi rator y syste m speci men by NANNETTE with probe detec tion sars-cov-2 (covid-19) RNA [presence] in specimen by NANNETTE with probe detection Negati ve normal Not Available Not Available 19:55:14 07/10/19 25 07/10/2024 Influ nikki virus A and B and SARS- CoV-2 (COVI D-19) and Respi rator y syncy tial virus RNA panel - Respi rator y syste m speci men by NANNETTE with probe detec tion influenza virus A RNA [presence] in respiratory system specimen by NANNETTE with probe detection Negati ve normal Not Available Not Available 19:55:14 07/10/19 25 07/10/2024 Influ nikki virus A and B and SARS- CoV-2 (COVI D-19) and Respi rator y syncy tial virus RNA panel - Respi rator y syste m speci men by NANNETTE with probe detec tion influenza virus B RNA [presence] in respiratory system specimen by NANNETTE with probe detection Negati ve normal Not Available Not Available 19:55:14 07/10/19 25 07/10/2024 Influ nikki virus A and B and SARS- CoV-2 (COVI D-19) and Respi rator y syncy tial virus RNA panel - Respi rator y syste m speci men by NANNETTE with probe detec tion respiratory syncytial virus RNA [presence] in nasopharynx by NANNETTE with probe detection Negati ve normal Not Available Not Available 19:55:14 07/10/19 25 07/10/2024 Compr ehens madi metab olic 1999 panel - Serum or Plasm a sodium [moles/volum e] in blood 136 mmol/ L low: 137mmo l/Lhig h: 145mmo l/L low Not Available Not Available 07/10/2024 19:55:14 07/10/19 25 07/10/2024 Compr ehens madi metab olic 1999 panel - Serum or Plasm a potassium [moles/volum e] in serum or plasma 4.4 mmol/ L low: 3.5mmo l/Lhig h: 5.1mmo l/L normal Not Available Not Available 07/10/2024 19:55:14 07/10/19 25 07/10/2024 Compr ehens madi metab olic 1999 panel - Serum or Plasm a chloride [moles/volum e] in serum or plasma 107 mmol/ L low: 98mmol /Lhigh : 107mmo l/L normal Not Available Not Available 07/10/2024 19:55:14 07/10/19 25 07/10/2024 Compr ehens madi metab olic 1999 panel - Serum or Plasm a carbon dioxide, total [moles/volum e] in serum or plasma 20 mmol/ L low: 22mmol /Lhigh : 30mmol /L low Not Available Not Available 07/10/2024 19:55:14 07/10/19 25 07/10/2024 Compr ehens madi metab olic 1999 panel - Serum or Plasm a anion gap in serum or plasma 13.4 mmol/ L low: 14mmol /Lhigh : 22mmol /L low Not Available Not Available 07/10/2024 19:55:14 07/10/19 25 07/10/2024 Compr ehens madi metab olic 1999 panel - Serum or Plasm a glucose [mass/volume ] in serum or plasma 214 mg/dL low: 70mg/d Lhigh: 99mg/d L high Not Available Not Available 07/10/2024 19:55:14 07/10/19 25 07/10/2024 [facility] [employer] madi [employer] [facility] 1999 panel - Serum or Plasm a urea nitrogen [mass or moles/volume ] in serum or plasma 21 mg/dL low: 8mg/dL high: 19mg/d L high Not Available Not Available 07/10/2024 19:55:14 07/10/19 25 07[facility]10[facility] [employer] [facility] 1999 panel - Serum or Plasm a creatinine [mass/volume ] in serum or plasma 0.76 mg/dL low: 0.66mg /dLhig h: 1.25mg /dL normal Not Available Not Available 07/10/2024 19:55:14 07/10/19 25 07/10/2024 [facility] [employer] [place] [id number] panel - Serum or Plasm a glomerular filtration rate/1.73 sq M.predicted [volume rate/area] in serum, plasma or blood >60 normal Not Available Not Available 06/15 19:55:14 07/10/19 25 07/10/2024 [facility] [employer] [facility] 1999 panel - Serum or Plasm a alkaline phosphatase [enzymatic activity/vol ume] in serum or plasma 96 U/L low: 38U/Lh igh: 126U/L normal Not Available Not Available 07/10/2024 19:55:14 07/10/19 25 07/10/2024 [facility] [employer] madi [employer] [facility] 1999 panel - Serum or Plasm a alanine aminotransfe rase [enzymatic activity/vol ume] in serum or plasma 32 U/L low: 0U/Lhi gh: 50U/L normal Not Available Not Available 07/10/2024 19:55:14 07/10/19 25 07/10/2024 [facility] [employer]i [employer] [facility] 1999 panel - Serum or Plasm a aspartate aminotransfe rase [enzymatic activity/vol ume] in serum or plasma 64 U/L low: 15U/Lh igh: 46U/L high Not Available Not Available 07/10/2024 19:55:14 07/10/19 25 07/10/2024 [facility] [employer]i [employer] [facility] 1999 panel - Serum or Plasm a bilirubin.to aggie [mass/volume ] in serum or plasma 0.8 mg/dL low: 0.2mg/ dLhigh : 1.3mg/ dL normal Not Available Not Available 07/10/2024 19:55:14 07/10/19 25 07/10/2024 [facility] madi [employer] [facility] 1999 panel - Serum or Plasm a calcium [mass/volume ] in serum or plasma 9.5 mg/dL low: 8.4mg/ dLhigh : 10.2mg /dL normal Not Available Not Available 07/10/2024 19:55:14 07/10/19 25 07/10/2024 [facility] 1999 panel - Serum or Plasm a protein [mass/volume ] in serum or plasma 6.7 g/dL low: 6.3g/d Lhigh: 8.2g/d L normal Not Available Not Available 07/10/2024 19:55:14 07/10/19 25 07/10/2024 [facility] madi [facility] 1999 panel - Serum or Plasm a albumin [mass/volume ] in serum or plasma 4.1 g/dL low: 3.4g/d Lhigh: 5g/dL normal Not Available Not Available 07/10/2024 19:55:14 07/10/19 25 07/10/2024 [facility] [employer] [facility] 1999 panel - Serum or Plasm a globulin [mass/volume ] in serum 2.6 g/dL low: 2.6g/d Lhigh: 4.2g/d L normal Not Available Not Available 07/10/2024 19:55:14 07/10/19 25 07/10/2024 [facility] [employer] [facility] 1999 panel - Serum or Plasm a albumin/glob ulin [mass ratio] in serum or plasma 1.6 ratio low: 1ratio high: 2ratio normal Not Available Not Available 07/10/2024 19:55:14 07/10/19 25 07/10/2024 [facility] W Auto [facility] joseti al panel - Blood leukocytes [#/volume] in blood by automated count 7.5 x10'3 /uL low: 4.2x10 '3/uLh igh: 10.8x1 0'3/uL normal Not Available Not Available 07/10/2024 19:55:13 07/10/19 25 07/10/2024 CBC W Auto [employer]iffe [employer] man[employer] panel - Blood erythrocytes [#/volume] in blood by automated count 4.41 x10'6 /uL low: 4.1x10 '6/uLh igh: 5.8x10 '6/uL normal Not Available Not Available 07/10/2024 19:55:13 07/10/19 25 07/10/2024 CBC W Auto Diffe renti al panel - Blood hemoglobin [mass/volume ] in blood 14.6 g/dL low: 13.2g/ dLhigh : 17g/dL normal Not Available Not Available 07/10/2024 19:55:13 07/10/19 25 07/10/2024 CBC W Auto Diffe tee al panel - Blood hematocrit [volume fraction] of blood by automated count 42.5 % low: 39.3%h igh: 50% normal Not Available Not Available 07/10/2024 19:55:13 07/10/19 25 07/10/2024 CBC W Auto [employer] panel - Blood MCV [entitic volume] by automated count 96.4 fL low: 80fLhi gh: 97fL normal Not Available Not Available 07/10/2024 19:55:13 07/10/19 25 07/10/2024 CBC W Auto [employer]iffe [employer] panel - Blood MCH [entitic mass] by automated count 33.1 pg low: 27pghi gh: 33pg high Not Available Not Available 07/10/2024 19:55:13 07/10/19 25 07/10/2024 CBC W Auto Diffe [employer]ning panel - Blood MCHC [mass/volume ] by automated count 34.4 g/dL low: 31g/dL high: 36g/dL normal Not Available Not Available 07/10/2024 19:55:13 07/10/19 25 07/10/2024 CBC W Auto Diffe tee al panel - Blood erythrocyte distribution width [ratio] 13.4 % low: 11.8%h igh: 15.5% normal Not Available Not Available 07/10/2024 19:55:13 07/10/19 25 07/10/2024 CBC W Auto Diffe [employer] panel - Blood platelets [#/volume] in blood by automated count 173 x10'3 /uL low: 150x10 '3/uLh igh: 400x10 '3/uL normal Not Available Not Available 07/10/2024 19:55:13 07/10/19 25 07/10/2024 CBC W Auto Diffe renti al panel - Blood platelet mean volume [entitic volume] in blood by automated count 10.2 fL low: 9fLhig h: 12.4fL normal Not Available Not Available 07/10/2024 19:55:13 07/10/19 25 07/10/2024 CBC W Auto Diffe renti al panel - Blood neutrophils/ 100 leukocytes in blood 61.4 % low: 39%hig h: 72% normal Not Available Not Available 07/10/2024 19:55:13 07/10/19 25 07/10/2024 CBC W Auto Diffe renti al panel - Blood lymphocytes/ 100 leukocytes in blood 27.1 % low: 16%hig h: 47% normal Not Available Not Available 07/10/2024 19:55:13 07/10/19 25 07/10/2024 CBC W Auto Diffe renti al panel - Blood monocytes/10 0 leukocytes in blood 8.9 % low: 5%high : 12% normal Not Available Not Available 07/10/2024 19:55:13 07/10/19 25 07/10/2024 CBC W Auto [employer] renti al panel - Blood eosinophils [#/volume] in blood 1.5 % low: 1%high : 7% normal Not Available Not Available 07/10/2024 19:55:13 07/10/19 25 07/10/2024 CBC W Auto Diffe renti al panel - Blood basophils/10 0 leukocytes in blood 0.4 % low: 0%high : 2% normal Not Available Not Available 07/10/2024 19:55:13 07/10/19 25 07/10/2024 CBC W Auto Diffe renti al panel - Blood immature granulocytes /100 leukocytes in blood 0.7 % low: 0%high : 0.5% high Not Available Not Available 07/10/2024 19:55:13 07/10/19 25 07/10/2024 CBC W Auto [employer]iffe renti al panel - Blood neutrophils [#/volume] in blood 4.61 x10'3 /uL low: 1.5x10 '3/uLh igh: 8x10'3 /uL normal Not Available Not Available 07/10/2024 19:55:13 07/10/19 25 07/10/2024 CBC W Auto Diffe renti al panel - Blood lymphocytes [#/volume] in blood 2.03 x10'3 /uL low: 1.07x1 0'3/uL high: 3.43x1 0'3/uL normal Not Available Not Available 07/10/2024 19:55:13 07/10/19 25 07/10/2024 CBC W Auto Diffe renti al panel - Blood monocytes [#/volume] in blood 0.67 x10'3 /uL low: 0.29x1 0'3/uL high: 0.99x1 0'3/uL normal Not Available Not Available 07/10/2024 19:55:13 07/10/19 25 07/10/2024 CBC W Auto Diffe renti al panel - Blood eosinophils [#/volume] in blood 0.11 x10'3 /uL low: 0.02x1 0'3/uL high: 0.53x1 0'3/uL normal Not Available Not Available 07/10/2024 19:55:13 07/10/19 25 07/10/2024 CBC W Auto Diffe renti al panel - Blood basophils [#/volume] in blood 0.03 x10'3 /uL low: 0.01x1 0'3/uL high: 0.08x1 0'3/uL normal Not Available Not Available 07/10/2024 19:55:13 07/10/19 25 07/10/2024 CBC W Auto Diffe renti al panel - Blood immature granulocytes [#/volume] in blood 0.05 x10'3 /uL low: 0x10'3 /uLhig h: 0.05x1 0'3/uL normal Not Available Not Available 07/10/2024 19:55:13 07/10/19 25 07/10/2024 CBC W Auto Diffe renti al panel - Blood nucleated erythrocytes /100 leukocytes [ratio] in blood 0 % high: 0% normal Not Available Not Available 07/10/2024 19:55:13 07/10/19 25 07/10/2024 CBC W Auto Diffe renti al panel - Blood nucleated erythrocytes [#/volume] in blood by automated count 0 x10'3 /uL normal Not Available Not Available 07/10/19 19:55:13 07/27/19 25 07/26/2024 Valpr oate [Mass /volu me] in Serum or Plasm a valproate [mass/volume ] in serum or plasma 61.8 mcg/m L low: 50mcg/ mLhigh : 100mcg /mL normal Not Available Not Available 07/26/2024 19:12:04 07/27/1907/26/2024 Tropo antonia I.car diac [Mass /volu me] in Serum or Plasm a by Detec tion limit <= 0.01 ng/mL troponin I.cardiac [mass/volume ] in serum or plasma by detection limit <= 0.01 NG/mL <0.012 low: 0NG/mL high: 0.034N G/mL normal Not Available Not Available 07/26/2024 19:12:04 07/27/19 25 07/26/2024 Magne sium [Mass /volu me] in Serum or Plasm a magnesium [mass/volume ] in serum or plasma 2.1 mg/dL low: 1.6mg/ dLhigh : 2.3mg/ dL normal Not Available Not Available 07/26/2024 19:12:04 07/27/19 25 07/26/2024 Compr ehens madi metab olic 1999 panel - Serum or Plasm a sodium [moles/volum e] in blood 135 mmol/ L low: 137mmo l/Lhig h: 145mmo l/L low Not Available Not Available 07/26/2024 19:12:04 07/27/19 25 07/26/2024 Compr ehens madi metab olic 1999 panel - Serum or Plasm a potassium [moles/volum e] in serum or plasma 3.7 mmol/ L low: 3.5mmo l/Lhig h: 5.1mmo l/L normal Not Available Not Available 07/26/2024 19:12:04 07/27/19 25 07/26/2024 Compr ehens madi metab olic 1999 panel - Serum or Plasm a chloride [moles/volum e] in serum or plasma 108 mmol/ L low: 98mmol /Lhigh : 107mmo l/L high Not Available Not Available 07/26/2024 19:12:04 07/27/19 25 07/26/2024 Compr ehens madi metab olic 1999 panel - Serum or Plasm a carbon dioxide, total [moles/volum e] in serum or plasma 21 mmol/ L low: 22mmol /Lhigh : 30mmol /L low Not Available Not Available 07/26/2024 19:12:04 07/27/19 25 07/26/2024 Compr ehens madi metab olic 1999 panel - Serum or Plasm a anion gap in serum or plasma 9.7 mmol/ L low: 14mmol /Lhigh : 22mmol /L low Not Available Not Available 07/26/2024 19:12:04 07/27/19 25 07/26/2024 [facility] ehens madi metab olic 1999 panel - Serum or Plasm a glucose [mass/volume ] in serum or plasma 155 mg/dL low: 70mg/d Lhigh: 99mg/d L high Not Available Not Available 07/26/2024 19:12:04 07/27/19 25 07/26/2024 [facility] ehens madi metab olic 1999 panel - Serum or Plasm a urea nitrogen [mass or moles/volume ] in serum or plasma 17 mg/dL low: 8mg/dL high: 19mg/d L normal Not Available Not Available 07/26/2024 19:12:04 07/27/19 25 07/26/2024 [facility] [employer] madi metab olic 1999 panel - Serum or Plasm a creatinine [mass/volume ] in serum or plasma 0.85 mg/dL low: 0.66mg /dLhig h: 1.25mg /dL normal Not Available Not Available 07/26/2024 19:12:04 07/27/19 25 07/26/2024 Compr ehens madi metab olic 1999 panel - Serum or Plasm a glomerular filtration rate/1.73 sq M.predicted [volume rate/area] in serum, plasma or blood >60 normal Not Available Not Available 07/12 19:12:04 07/27/19 25 07/26/2024 Compr ehens madi metab olic 1999 panel - Serum or Plasm a alkaline phosphatase [enzymatic activity/vol ume] in serum or plasma 75 U/L low: 38U/Lh igh: 126U/L normal Not Available Not Available 07/26/2024 19:12:04 07/27/19 25 07/26/2024 Compr [employer] madi [employer] 1999 panel - Serum or Plasm a alanine aminotransfe rase [enzymatic activity/vol ume] in serum or plasma 34 U/L low: 0U/Lhi gh: 50U/L normal Not Available Not Available 07/26/2024 19:12:04 07/27/19 25 07/26/2024 Compr [employer] madi [employer] olic 1999 panel - Serum or Plasm a aspartate aminotransfe rase [enzymatic activity/vol ume] in serum or plasma 67 U/L low: 15U/Lh igh: 46U/L high Not Available Not Available 07/26/2024 19:12:04 07/27/19 25 07/26/2024 Compr [employer]i [employer] [facility] 1999 panel - Serum or Plasm a bilirubin.to aggie [mass/volume ] in serum or plasma 0.6 mg/dL low: 0.2mg/ dLhigh : 1.3mg/ dL normal Not Available Not Available 07/26/2024 19:12:04 07/27/19 25 07/26/2024 Compr [employer] [facility] 1999 panel - Serum or Plasm a calcium [mass/volume ] in serum or plasma 8.9 mg/dL low: 8.4mg/ dLhigh : 10.2mg /dL normal Not Available Not Available 07/26/2024 19:12:04 07/27/19 25 07/26/2024 Compr [employer] olic 1999 panel - Serum or Plasm a protein [mass/volume ] in serum or plasma 7.1 g/dL low: 6.3g/d Lhigh: 8.2g/d L normal Not Available Not Available 07/26/2024 19:12:04 07/27/19 25 07/26/2024 Compr [employer] madi [employer] olic 1999 panel - Serum or Plasm a albumin [mass/volume ] in serum or plasma 4.2 g/dL low: 3.4g/d Lhigh: 5g/dL normal Not Available Not Available 07/26/2024 19:12:04 07/27/19 25 07/26/2024 Compr ehens madi metab olic 1999 panel - Serum or Plasm a globulin [mass/volume ] in serum 2.9 g/dL low: 2.6g/d Lhigh: 4.2g/d L normal Not Available Not Available 07/26/2024 19:12:04 07/27/19 25 07/26/2024 Compr ehens madi metab olic 1999 panel - Serum or Plasm a albumin/glob ulin [mass ratio] in serum or plasma 1.4 ratio low: 1ratio high: 2ratio normal Not Available Not Available 07/26/2024 19:12:04 07/27/19 25 07/26/2024 CBC W Auto Diffe renti al panel - Blood leukocytes [#/volume] in blood by automated count 5.3 x10'3 /uL low: 4.2x10 '3/uLh igh: 10.8x1 0'3/uL normal Not Available Not Available 07/26/2024 19:12:04 07/27/19 25 07/26/2024 CBC W Auto Diffe renti al panel - Blood erythrocytes [#/volume] in blood by automated count 4.16 x10'6 /uL low: 4.1x10 '6/uLh igh: 5.8x10 '6/uL normal Not Available Not Available 07/26/2024 19:12:04 07/27/19 25 07/26/2024 CBC W Auto Diffe renti al panel - Blood hemoglobin [mass/volume ] in blood 12.9 g/dL low: 13.2g/ dLhigh : 17g/dL low Not Available Not Available 07/26/2024 19:12:04 07/27/1907/26/2024 CBC W Auto Diffe renti al panel - Blood hematocrit [volume fraction] of blood by automated count 39.6 % low: 39.3%h igh: 50% normal Not Available Not Available 07/26/2024 19:12:04 07/27/1907/26/2024 CBC W Auto Diffe renti al panel - Blood MCV [entitic volume] by automated count 95.2 fL low: 80fLhi gh: 97fL normal Not Available Not Available 07/26/2024 19:12:04 07/27/19 25 07/26/2024 CBC W Auto Diffe renti al panel - Blood MCH [entitic mass] by automated count 31 pg low: 27pghi gh: 33pg normal Not Available Not Available 07/26/2024 19:12:04 07/27/1907/26/2024 CBC W Auto Diffe renti al panel - Blood MCHC [mass/volume ] by automated count 32.6 g/dL low: 31g/dL high: 36g/dL normal Not Available Not Available 07/26/2024 19:12:04 07/27/1907/26/2024 CBC W Auto Diffe renti al panel - Blood erythrocyte distribution width [ratio] 13.2 % low: 11.8%h igh: 15.5% normal Not Available Not Available 07/26/2024 19:12:04 07/27/1907/26/2024 CBC W Auto Diffe renti al panel - Blood platelets [#/volume] in blood by automated count 145 x10'3 /uL low: 150x10 '3/uLh igh: 400x10 '3/uL low Not Available Not Available 07/26/2024 19:12:04 07/27/1907/26/2024 CBC W Auto Diffe renti al panel - Blood platelet mean volume [entitic volume] in blood by automated count 9.9 fL low: 9fLhig h: 12.4fL normal Not Available Not Available 07/26/2024 19:12:04 07/27/1907/26/2024 CBC W Auto Diffe renti al panel - Blood neutrophils/ 100 leukocytes in blood 52.5 % low: 39%hig h: 72% normal Not Available Not Available 07/26/2024 19:12:04 07/27/1907/26/2024 CBC W Auto Diffe renti al panel - Blood lymphocytes/ 100 leukocytes in blood 27.2 % low: 16%hig h: 47% normal Not Available Not Available 07/26/2024 19:12:04 07/27/19 25 07/26/2024 CBC W Auto Diffe renti al panel - Blood monocytes/10 0 leukocytes in blood 16.1 % low: 5%high : 12% high Not Available Not Available 07/26/2024 19:12:04 07/27/19 25 07/26/2024 CBC W Auto Diffe renti al panel - Blood eosinophils [#/volume] in blood 3.2 % low: 1%high : 7% normal Not Available Not Available 07/26/2024 19:12:04 07/27/1907/26/2024 CBC W Auto Diffe renti al panel - Blood basophils/10 0 leukocytes in blood 0.4 % low: 0%high : 2% normal Not Available Not Available 07/26/2024 19:12:04 07/27/1907/26/2024 CBC W Auto Diffe renti al panel - Blood immature granulocytes /100 leukocytes in blood 0.6 % low: 0%high : 0.5% high Not Available Not Available 07/26/2024 19:12:04 07/27/1907/26/2024 CBC W Auto Diffe renti al panel - Blood neutrophils [#/volume] in blood 2.8 x10'3 /uL low: 1.5x10 '3/uLh igh: 8x10'3 /uL normal Not Available Not Available 07/26/2024 19:12:04 07/27/19 25 07/26/2024 CBC W Auto Diffe renti al panel - Blood lymphocytes [#/volume] in blood 1.45 x10'3 /uL low: 1.07x1 0'3/uL high: 3.43x1 0'3/uL normal Not Available Not Available 07/26/2024 19:12:04 07/27/19 25 07/26/2024 CBC W Auto Diffe renti al panel - Blood monocytes [#/volume] in blood 0.86 x10'3 /uL low: 0.29x1 0'3/uL high: 0.99x1 0'3/uL normal Not Available Not Available 07/26/2024 19:12:04 07/27/19 25 07/26/2024 CBC W Auto Diffe renti al panel - Blood eosinophils [#/volume] in blood 0.17 x10'3 /uL low: 0.02x1 0'3/uL high: 0.53x1 0'3/uL normal Not Available Not Available 07/26/2024 19:12:04 07/27/19 25 07/26/2024 CBC W Auto Diffe renti al panel - Blood basophils [#/volume] in blood 0.02 x10'3 /uL low: 0.01x1 0'3/uL high: 0.08x1 0'3/uL normal Not Available Not Available 07/26/2024 19:12:04 07/27/19 25 07/26/2024 CBC W Auto Diffe renti al panel - Blood immature granulocytes [#/volume] in blood 0.03 x10'3 /uL low: 0x10'3 /uLhig h: 0.05x1 0'3/uL normal Not Available Not Available 07/26/2024 19:12:04 07/27/19 25 07/26/2024 CBC W Auto Diffe renti al panel - Blood nucleated erythrocytes /100 leukocytes [ratio] in blood 0 % high: 0% normal Not Available Not Available 07/26/2024 19:12:04 07/27/1907/26/2024 CBC W Auto Diffe renti al panel - Blood nucleated erythrocytes [#/volume] in blood by automated count 0 x10'3 /uL normal Not Available Not Available 07/27/19 19:12:04 10/11/1910/11/2023 CT, abdom en + pelvi s, w/ contr ast No observ ation record ed. [address] [facility] [address], [place], [address], 10/15/2023 22:33:42 11/19/19 24 01/21/2015 colon oscop y proce dure (PROC ) No observ ation record ed. formerly [facility] Not Available 2023 15:56:51 02/04/20 24 02/04/2024 XR, chest No observ ation record ed. [facility] [address] [place], [address], 02/05/2024 10:58:15 02/04/20 24 02/04/2024 CT, head, w/o contr ast No observ ation record ed. [email or web address] [facility] [address] [place], [address], 02/05/2024 16:28:44 03/11/20 24 03/11/2024 XR, finge r(s) No observ ation record ed. [facility] [address] [place], [address], 03/12/2024 12:49:50 03/24/20 24 03/24/2024 XR, chest No observ ation record ed. [facility] [address] [place], [address], 03/26/2024 10:32:09 03/24/20 24 03/24/2024 CT, head, w/o contr ast No observ ation record ed. [facility] [address] [place], [address], 03/26/2024 10:32:49 04/17/20 24 04/17/2024 XR, finge r(s) No observ ation record ed. [facility] [address] [place], [address], 04/20/2024 22:27:04 04/17/20 24 04/17/2024 XR, hip + pelvi s, bilat eral, 3 or 4 view No observ ation record ed. [facility] [address] [place], [address], 04/21/2024 09:25:59 04/17/20 24 04/17/2024 XR, cervi ángela spine , 4 or 5 view No observ ation record ed. [facility] [address] [place], [address], 04/21/2024 09:26:52 05/16/19 25 05/16/2024 XR, chest No observ ation record ed. [address] [facility] [address], [place], [address], 05/20/2024 17:33:44 07/10/19 25 07/10/2024 XR, chest No observ ation record ed. [email or web address] [place], [address], 07/11/2024 09:04:53 07/27/19 25 07/26/2024 XR, chest No observ ation record ed. [email or web address] [facility] [address] [place], [address], 07/30/2024 17:19:22 07/31/19 25 07/29/2024 US, echoc ardio gram No observ ation record ed. [facility] [address] [facility] [address], [place], [address], 07/31/2024 12:22:52 Result Notes None recorded. Problems Name Problem SNOMED Code Status Onset Date Resolution Date Notes Provider Name and Address Organization Details Recorded Time Type 2 diabetes mellitus without complication 087229734 Active 2023 Mina Wilson MD Attn: Francisco yanez,[address] [facility], [place], [address], [place] [facility] 4 22:18:13 Upper respiratory infection 26247377 Active 2023 Mina Wilson MD Attn: Francisco yanez,[address] [facility], [place], [address], [place] [facility] 4 22:18:15 Essential hypertension 31588589 Active 2023 Mina Wilson MD Attn: Francisco yanez,[address] [facility], [place], [address], [place] [facility] 4 22:18:16 Hyperlipidemia 29575621 Active 2023 Mina Wilson MD Attn: Francisco g,[address] [facility], [place], [address], [place] [facility] 4 22:18:18 Mixed anxiety and depressive disorder 787323609 Active 2023 Mina Wilson MD Attn: Francisco yanez,[address] [facility], [place], [address], [place] [facility] 4 22:18:20 Vitamin D below reference range 368006319 Active 2023 Mina Wilson MD Attn: Francisco yanez,[address], [place], [address], [facility] - [facility] 4 22:18:21 Hypothyroidism 58749228 Active 2023 Mina Wilson MD Attn: Francisco yanez,[address], [place], [address], [facility] - [facility] 4 22:18:23 Notes:Some problems listed i n Documents: #[id number], #[id number] could not be added to this patient's chart. Please review these documents and add these problems to the patient's chart manually as needed. Problem Notes None recorded. Procedures Surgical History Date Name Laterality Status Provider Name and Address Organization Details Recorded Time Eye Surgery completed Thea Clark MA [facility] 08/03/2023 13:14:13 Pacemaker completed Thea Clark MA [facility] 08/03/2023 13:14:21 Imaging Results Imaging Date Name Status LastModified by Organization Details LastModified Time 10/11/2023 CT, abdomen + pelvis, w/ contrast completed [address], [place], [address], 10/15/2023 22:33:42 01/21/2015 colonoscopy procedure (PROC) completed formerly [facility] Information not available 11/19/2023 15:56:51 02/04/2024 XR, chest completed [email or web address] [facility] [address] [place], [address], 02/05/2024 10:58:15 02/04/2024 CT, head, w/o contrast completed [email or web address] [facility] [address] [place], [address], 02/05/2024 16:28:44 03/11/2024 XR, finger(s) completed JIM [facility] [address] [place], [address], 03/12/2024 12:49:50 03/24/2024 XR, chest completed [facility] [address] [place], [address], 03/26/2024 10:32:09 03/24/2024 CT, head, w/o contrast completed [facility] [address] [place], [address], 03/26/2024 10:32:49 04/17/2024 XR, finger(s) completed [facility] [address] [place], [address], 04/20/2024 22:27:04 04/17/2024 XR, hip + pelvis, bilateral, 3 or 4 view completed [facility] [address] [place], [address], 04/21/2024 09:25:59 04/17/2024 XR, cervical spine, 4 or 5 view completed [facility] [address] [place], [address], 04/21/2024 09:26:52 05/16/2024 XR, chest completed [place] [address] [facility] [address], [place], [address], 05/20/2024 17:33:44 07/10/2024 XR, chest completed [address] [place], [address], 07/11/2024 09:04:53 07/26/2024 XR, chest completed [address] [place], [address], 07/30/2024 17:19:22 07/29/2024 US, echocardiogram completed [facility] [address] [facility] [address], [place], [address], 07/31/2024 12:22:52 Procedure Notes None recorded. Medical Equipment None Reported. Allergies Allergen ID Allergen Name Allergen Category Reaction Reaction Severity Criticality Documentation Date Start Date Code Code System Note Provider Name and Address Organization Details Recorded Time 18250911 carbamaze pine medicatio n Not available Not available low 06/18/20242020 RxNorm unrec ogniz ed react ion (text : Flush ing (skin ), code: 09191 0007) (from exter nal sourc e) Not Available Not Available Not Available 18250912 metformin medicatio n other Not available low 06/18/20242020 6809 RxNorm Not Available Not Available Not Available 18250913 phenobarb ital medicatio n Not available Not available Not available 06/18/20242020 8134 RxNorm unrec ogniz ed react ion (text : Unkno wn, code: 96802 5006) (from exter nal sourc e) Not Available Not Available Not Available Medications Name Sig Start Date Stop Date Status Note LastModified by Organization Details LastModified Time cyclobenzap rine 10 mg tablet TAKE 1 TABLET BY MOUTH TWICE DAILY NEEDED active Not Available Not Available No t Available amoxicillin 500 mg capsule TAKE 1 CAPSULE BY MOUTH THREE TIMES DAILY FOR 7 DAYS 02/04 completed Not Available Not Available Not Available furosemide 40 mg tablet TAKE 1 TABLET BY MOUTH EVERY DAY active Not Available Not Available No t Available doxycycline hyclate 100 mg capsule Take 1 capsule twice a day by oral route for 7 days. 06/18 completed Not Available Not Available Not Available citalopram 40 mg tablet TAKE 1 TABLET BY MOUTH EVERY MORNING active Not Available Not Available No t Available enalapril maleate 5 mg tablet TAKE 1 TABLET BY MOUTH EVERY DAY active Not Available Not Available No t Available azithromyci n 250 mg tablet 08/07 completed Not Available Not Available Not Available flurbiprofe n 0.03 % eye drops 06/18 completed Not Available Not Available Not Available ondansetron HCl 4 mg tablet TAKE 1 TABLET BY MOUTH UP TO THREE TIMES DAILY NEEDED FOR NAUSEA OR VOMITING active Not Available Not Available No t Available prednisone 20 mg tablet TAKE 1 TABLET BY MOUTH DAILY FOR 5 DAYS active Not Available Not Available No t Available acetaminoph en 300 mg-codeine 30 mg tablet TAKE 1 TABLET BY MOUTH THREE TIMES DAILY NEEDED MUST LAST 21 DAYS active Not Available Not Available No t Available divalproex 500 mg tablet,britany yed release 11/05 completed Not Available Not Available Not Available glimepiride 1 mg tablet TAKE 2 TABLETS BY MOUTH TWICE DAILY DIRECTED 2024 active Not Available Not Available Not Avai lable levothyroxi ne 88 mcg tablet TAKE 1 TABLET BY MOUTH EVERY DAY IN THE MORNING active Not Available Not Available No t Available amoxicillin 875 mg tablet TAKE 1 TABLET BY MOUTH THREE TIMES DAILY FOR 7 DAYS 07/09 completed Not Available Not Available Not Available famotidine 20 mg tablet TAKE 1 TABLET BY MOUTH DAILY active Not Available Not Available No t Available prednisolon e acetate 1 % eye drops,suspe nsion 06/18 completed Not Available Not Available Not Available ciprofloxac in 0.3 % eye drops 06/18 completed Not Available Not Available Not Available OneTouch Ultra Test strips USE TO TEST TWICE DAILY active Not Available Not Available No t Available benzonatate 100 mg capsule TAKE 1 CAPSULE BY MOUTH EVERY 8 HOURS NEEDED active Not Available Not Available No t Available nortriptyli ne 75 mg capsule TAKE 1 CAPSULE BY MOUTH TWICE DAILY active Not Available Not Available No t Available cephalexin 500 mg capsule Take 1 capsule 3 times a day by oral route for 10 days. 06/18 completed Not Available Not Available Not Available divalproex ER 500 mg tablet,exte nded release 24 hr TAKE 2 TABLETS BY MOUTH EVERY MORNING AND TAKE 1 TABLET AT NIGHT active Not Available Not Available No t Available omeprazole 20 mg capsule,del ayed release TAKE ONE CAPSULE BY MOUTH DAILY BEFORE A MEAL active Not Available Not Available No t Available aspirin 81 mg chewable tablet CHEW AND SWALLOW 1 TABLET BY MOUTH EVERY DAY active Not Available Not Available No t Available montelukast 10 mg tablet TAKE 1 TABLET BY MOUTH DAILY 2024 active Not Available Not Available Not Avai lable topiramate 200 mg tablet TAKE 1 TABLET BY MOUTH TWICE DAILY active Not Available Not Available No t Available ergocalcife rol (vitamin D2) 1,250 mcg (50,000 unit) capsule TAKE 1 CAPSULE BY MOUTH EVERY WEEK active Not Available Not Available No t Available levofloxaci n 500 mg tablet TAKE 1 TABLET BY MOUTH EVERY 24 HOURS FOR 7 DAYS 06/18 completed Not Available Not Available Not Available albuterol sulfate HFA 90 mcg/actuati on aerosol inhaler INHALE 2 PUFFS BY MOUTH EVERY 4 HOURS NEEDED active Not Available Not Available No t Available pioglitazon e 30 mg tablet TAKE 1 TABLET BY MOUTH IN THE MORNING 2024 active Not Available Not Available Not Avai lable doxycycline hyclate 100 mg tablet TAKE 1 TABLET BY MOUTH TWICE DAILY FOR 7 DAYS 08/07 completed Not Available Not Available Not Available nortriptyli ne 50 mg capsule TAKE 1 CAPSULE BY MOUTH EVERY DAY IN THE EVENING 02/04 completed Not Available Not Available Not Available amoxicillin 875 mg-potassiu m clavulanate 125 mg tablet TAKE 1 TABLET BY MOUTH EVERY 12 HOURS FOR 7 DAYS 08/07 completed Not Available Not Available Not Available rosuvastati n 40 mg tablet TAKE 1 TABLET BY MOUTH EVERY NIGHT AT BEDTIME active Not Available Not Available No t Available fenofibrate 160 mg tablet TAKE 1 TABLET BY MOUTH DAILY active Not Available Not Available No t Available Januvia 50 mg tablet TAKE 1 TABLET BY MOUTH EVERY DAY IN THE MORNING active Not Available Not Available No t Available icosapent ethyl 1 gram capsule TAKE 2 CAPSULES BY MOUTH TWICE DAILY BEFORE MEALS active Not Available Not Available No t Available Jardiance 25 mg tablet TAKE 1 TABLET BY MOUTH DAILY active Not Available Not Available No t Available Incruse Ellipta 62.5 mcg/actuati on powder for inhalation INHALE 1 PUFF BY [...] tablets in a dose pack TK 2 NIRMATREL VIR TS AND 1 RITONAVIR T TOGETHER PO BID FOR 5 DAYS TWICE DAILY FOR 5 DAYS 02/04 completed Not Available Not Available Not Available Vitals Date Recorded Body height Body mass index (BMI) Body weight Heart rate Oxygen saturation Oxygen saturation in Arterial blood by Pulse oximetry Systolic blood pressure Diastolic blood pressure Provider Name and Address Organization Details Last Updated DateTime 4 175.26 cm 32.9 kg/m2 722964. 1 g 78 /min 96 % 96 % 105 mm[Hg] 70 mm[Hg] Brashay Eduardo, MA [facility] 4 11:37:36 Date Recorded Body height Body mass index (BMI) Body weight Oxygen saturation Oxygen saturation in Arterial blood by Pulse oximetry Heart rate Systolic blood pressure Diastolic blood pressure Provider Name and Address Organization Details Last Updated DateTime 4 175.26 cm 33.2 kg/m2 059801. 28 g 97 % 97 % 81 /min 108 mm[Hg] 66 mm[Hg] Jesus Mcclain MA [facility] 4 10:50:37 Date Recorded Body height Body mass index (BMI) Body weight Heart rate Oxygen saturation Oxygen saturation in Arterial blood by Pulse oximetry Systolic blood pressure Diastolic blood pressure Provider Name and Address Organization Details Last Updated DateTime 4 175.26 cm 34.2 kg/m2 155085. 71 g 85 /min 97 % 97 % 112 mm[Hg] 64 mm[Hg] Desire Alcazar MA [facility] 4 11:16:13 Date Recorded Body height Body mass index (BMI) Body weight Heart rate Oxygen saturation Oxygen saturation in Arterial blood by Pulse oximetry Systolic blood pressure Diastolic blood pressure Provider Name and Address Organization Details Last Updated DateTime 4 175.26 cm 35.1 kg/m2 840734. 62 g 91 /min 97 % 97 % 122 mm[Hg] 68 mm[Hg] Desire Alcazar MA [facility] 4 16:20:37 Date Recorded Body height Body mass index (BMI) Body weight Heart rate Oxygen saturation Oxygen saturation in Arterial blood by Pulse oximetry Systolic blood pressure Diastolic blood pressure Provider Name and Address Organization Details Last Updated DateTime 5 175.26 cm 35.6 kg/m2 771764. 2 g 87 /min 97 % 97 % 120 mm[Hg] 76 mm[Hg] Katrina Johnson MA [facility] 5 16:56:23 Social History Question Answer Notes LastModified by Organizat ion Details LastModified Time Tobacco Smoking Status Former Smoker Thea Clark MA null, [facility] 08/03/2023 13:12:29 Do You Have An Advance [...] Date Of Your Most Recent Tobacco Screening? 06/18/2024 [email or web address] Information not available 06/18/2024 What Is Your Current Pack Years? 20-29packyear [...] Anxious, Or Unable To Sleep At Night)? [id number] Information not available 08/03/2023 Do You Use [...] Response Coronary Artery Disease N Other N High Blood Pressure N Atrial Fibrillation N Kidney or Bladder Problems N Thyroid Problems N GI Problems N Depression Y COPD N Blood Clots N Skin Problems N Anemia N Heart Attack (NC) N Anxiety Disorder N Diabetes Y Muscle, Joint, or Bone Problems N Seizures/Epilepsy Y Acid Reflux (GERD) N Cancer N Stroke N Asthma N Allergies N High Cholesterol N Hepatitis N Liver Disease N Headaches Y Heart Failure N Osteoporosis N Immunizations Vaccine Type Date Status Note [...] [facility] 11/06/2023 12:22:11 Pneumococcal conjugate PCV20, polysaccharide [id number] conjugate, adjuvant, PF 3 completed NIMA Johnson, [...] SNOMED-CT Code Diagnosis ICD10 Code Diagnosis Note [id number] Mina Wilson MD [facility] (Adult Med) [address] [place] [address] 08/03/2023 12:10:41 08/03/2023 13:51:25 Type 2 diabetes mellitus without complication 219098333 E11.9 Upper resp iratory infection 76451300 J06.9 Essential hypertension 63860134 I10 Hyperlipidemia 56729298 E78.5 Mixed anxi ety and depressive disorder 158562465 F41.8 Vitamin D below reference range 827124244 E55.9 Hypothyroidism 33507139 E03.9 Gastroesop hageal reflux disease without esophagitis 873292046 K21.9 [id number] MD Judi Dye (Adult Med) [address] [place] [address] 11/06/2023 10:30:44 11/06/2023 12:32:13 Obesity 011931431 E66.8 Upper resp iratory infection 61260406 J06.9 Essential hypertension 60972553 I10 Hyperlipidemia 43330280 E78.5 Hypothyroidism 56793469 E03.9 Type 2 darren betes mellitus without complication 329163804 E11.9 [id number] MD Judi Dye (Adult Med) [address] [place] [address] 02/05/2024 10:20:13 02/05/2024 12:16:58 Obesity 470662662 E66.8 Essential hypertension 33006743 I10 Hyperlipidemia 10368655 E78.5 Hypothyroidism 49606003 E03.9 Type 2 darren betes mellitus without complication 358833128 E11.9 [id number] MD Judi Dye (Adult Med) [address] [place] [address] 03/11/2024 10:54:33 03/11/2024 12:11:15 Obesity 809271663 E66.9 Pain in fi nger of right hand 5142076407 13975 M79.644 Hypothyroidism 52466995 E03.9 Hyperlipidemia 92679966 E78.5 Essential hypertension 43618236 I10 [id number] MD Judi Dye (Adult Med) [address] [place] [address] 04/23/2024 15:24:08 04/23/2024 16:42:58 Cellulitis of lower limb 517838297 L03.691 [id number] MD Judi Dye (Adult Med) [address] [place] [address] 06/18/2024 16:41:31 06/18/2024 17:21:57 Body mass index 30+ - obesity 185287897 Z68.35 Obesity 212340472 E66.9 Cellulitis of lower limb 727798000 L03.119 Health Concerns Section Related Observation LastModified by Organization Detai ls LastModified Time None Recorded Concern Status LastModified by Organization Details LastModified Time None Recorded Advance Directives Directive N: Payers Encounter Date Sequence Insurance Name Policy Number Policy Álvarez Covered Member ID Álvarez Member ID Guarantor Name 11/06/2023 1 [facility] (MEDICARE REPLACEMENT/AD VANTAGE - HMO) [id number] [place] [id number] [place] 11/06/2023 2 [place] [facility] Dennis Branch [id number] Dennis Branch 02/05/2024 1 [facility] (MEDICARE REPLACEMENT/AD VANTAGE - HMO) [id number] Dennis Branch [id number] Dennis Branch 02/05/2024 2 [place]ICARE REPLACEMENT PRIMARY) [place] Branch [id number] Dennis Branch 03/11/2024 1 [facility] (MEDICARE REPLACEMENT/AD VANTAGE - HMO) [id number] Dennis Branch [id number] Dennis Branch 03/11/2024 2 [place] REPLACEMENT [place]IMARY) Dennis Branch [id number] Dennis Branch 04/23/2024 1 [facility] (MEDICARE REPLACEMENT/AD VANTAGE - HMO) [id number] Dennis Branch [id number] Dennis Branch 04/23/2024 2 [place]ICARE REPLACEMENT PRIMARY) Dennis Branch [id number] Dennis Branch 06/18/2024 1 [facility] (MEDICARE REPLACEMENT/AD VANTAGE - HMO) [id number] Dennis Branch [id number] Dennis Branch 06/18/2024 2 [place] OR [place]ICARE REPLACEMENT PRIMARY) Dennis Branch [id number] Dennis Branch Notes Date Note Type Note Provider Name and Address Organization Details Recorded Time 11/06/2023 text/html Hypertension no headache or dizziness [...] cough Mina Wilson MD Attn: Accounting, [address] [place], [address], [place] [facility] 11/18/2023 20:29:18 02/05/2024 text/html he was in an RADHA yesterday legs started shaking went to the emergency room he is following up with Neurology they are working with him on his Depakote level Mina Wilson MD Attn: Accounting, [address] [place], [address], [place] [facility] 03/02/2024 18:29:53 03/11/2024 text/html 1. Diabetes does not take his sugars regularly. 2. Anxiety seems to be stable. Three hypothyroid no heat or cold intolerance. 4. Fell hurt his right middle finger the other day hard to bed. No numbness or tingling or loss of function just painful. 5. Hypertension no headache no dizziness Mina Wilson MD Attn: Accounting, [address] [place], [address], [place] [facility] 03/11/2024 13:33:13 04/23/2024 text/html bumped his left leg on the bedpost denies going to little open area no fever no chills draining a minimally Mina Wilson MD Attn: Accounting, [address] [place], [address], [place] [facility] 04/26/2024 15:00:55 06/18/2024 text/html bumped his leg o n the dresser and now he is worried it is in fact Mina Wilson MD Attn: Accounting, [address] [place], [address], [place] [facility] 06/22/2024 17:02:21
--- OUTSIDE RECORDS SUMMARY | 2024-08-08 11:19 | XMS_ITS | Clinical Summary ---
Author Organization [facility] Address [address] [place] [address] Care Team Providers Care Patented Hogshead Assembler Name Role Phone Sergey Wilson MD Primary Care Provider [phone] Source Comments [facility],non-[facility] Affiliates and Associated Physician Practices is amultiple site organization consisting of ambulatory clinics and hospital sitesin [place], [place], [place] and [place]. This disclosure is being madepursuant to the Care Everywhere program and may not contain all information available regarding this patient. Last updated 18.[facility] [employer] Allergies Active Allergy Reactions Criticality Noted Date [...] file Gender Identity Male 05/25/2021 9:36 PM AREA REPRESENTATIVE Sexual Orientation Not on file Last Filed Vital Signs Vital Sign Reading Time Taken Comments Blood Pressure 99/48 06/02/2021 7:32 PM AREA REPRESENTATIVE Pulse 82 06/02/2021 7:32 PM AREA REPRESENTATIVE Temperature 37.2 C (99 F) 06/02/2021 7:32 PM AREA REPRESENTATIVE Respiratory Rate 16 06/02/2021 7:32 PM AREA REPRESENTATIVE Oxygen Saturation 98% 06/02/2021 7:32 PM AREA REPRESENTATIVE Inhaled Oxygen Concentration - - Weight 104.3 kg (230 lb) 06/02/2021 7:32 PM AREA REPRESENTATIVE Height 177.8 cm (5' 10 ) 06/02/2021 7:32 PM AREA REPRESENTATIVE Body Mass Index 33 06/02/2021 7:32 PM AREA REPRESENTATIVE Plan of Treatment Health Maintenance Due Date Last Done Comments COLOGUARD (AGES 45-75) - COLON CA SCREENING [address] COLONOGRAPHY - COLON CA SCREENING 1964 FIT - COLON CA SCREENING 1965 FLEX SIG - COLON CA SCREENING 1964 LIPID TESTING 1964 HIV SCREENING 02/23/1979 HEPATITIS C SCREENING 02/19/1982 DTAP/TDAP/TD VACCINES (1 - Tdap) 02/23/1983 PNEUMOCOCCAL VACCINE 50+ (1 of 1 - PCV) 02/23/2014 ZOSTER VACCINE (1 of 2) 02/23/2014 COVID-19 VACCINE (4 - season) 2024 05/13/2021, 08/14/2020, 07/17/2020 INFLUENZA VACCINE (#1) 2024 , 02/25/2020, 02/18/2020, Additional history exists DEPRESSION SCREENING 05/14/2024 MEDICARE AWV CALENDAR YEAR 2024 COLONOSCOPY - COLON CA SCREENING 01/21/2025 01/21/2015 Colorectal Cancer Screening 01/21/2025 Respiratory Syncytial Virus (RSV) Vaccine Pt: or [...] patient's age to complete this topic MENINGOCOCCAL (Group B) VACCINE SHARED DECISION-MAKING Aged Out No longer eligible based on patient's age to complete this topic MENINGOCOCCAL GROUPS A/C/Y/W VACCINE Aged Out No longer eligible based on patient's age to complete this topic PNEUMOCOCCAL VACCINE Aged Out No long er eligible based on patient's age to complete this topic Care Teams Patented Hogshead Assembler Relationship Specialty Start Date End Date Sergey Wilson MD PCP - General Internal Medicine 09/25/20
--- OUTSIDE RECORDS SUMMARY | 2024-08-08 11:19 | XMS_ITS | Clinical Summary ---
Author Organization [facility] Address [address] [place] [address] Phone Care Team Providers Care Telephone Order Supervisor Name Role Phone Sergey Wilson MD Primary Care Provider [phone] Allergies No known active allergies Medications divalproex (DEPAKOTE) 500 mg delayed release tablet Take 500 mg by mouth 3 times daily. Active topiramate (TOPAMAX) 200 mg tablet Take 200 mg by mouth 2 times daily. Active naproxen (NAPROSYN) 500 mg tablet Take 1 Tablet (500 mg) by mouth 2 times daily with meals for five days then as needed after that. 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 Gender Identity Not on file Sexual Orientation Not on file Last Filed Vital Signs Vital Sign Reading Time Taken Comments Blood Pressure 113/75 04/18/2021 8:00 PM DIRECTOR OF RETAIL OPERATIONS Pulse 78 04/18/2021 8:00 PM DIRECTOR OF RETAIL OPERATIONS Temperature 36.9 C (98.4 F) 04/18/2021 3:26 PM DIRECTOR OF RETAIL OPERATIONS Respiratory Rate 18 04/18/2021 7:08 PM DIRECTOR OF RETAIL OPERATIONS Oxygen Saturation 95% 04/18/2021 8:00 PM DIRECTOR OF RETAIL OPERATIONS Inhaled Oxygen Concentration - - Weight 104.3 kg (230 lb) 04/18/2021 3:26 PM DIRECTOR OF RETAIL OPERATIONS Height 177.8 cm (5' 10 ) 04/18/2021 3:26 PM DIRECTOR OF RETAIL OPERATIONS Body Mass Index 33 04/18/2021 3:26 PM DIRECTOR OF RETAIL OPERATIONS Plan of Treatment Health Maintenance Due Date Last Done Comments PNEUMOCOCCAL VACCINE 0-49 YEARS (1 of 2 - PCV) 02/23/1970 [...] patient's age to complete this topic Insurance MEDICAID [place] RX [employer] Member Subscriber Plan / Payer (Ef fective for All Dates) Name:Jose Carlos Dennis Relation to Subscriber:Self Name:Jose CarlosDennis Subscriber ID:Not on file Payer ID:Not on file Group ID:[id number] Type:RX Medicare Part D Address: [place] Care Teams Telephone Order Supervisor Relationship Specialty Start Date End Date Sergey Wilson MD [address] [place] [address] [phone] PCP - General Internal Medicine 04/18/21
--- OUTSIDE RECORDS SUMMARY | 2024-08-08 11:20 | XMS_ITS | Referral Summary ---
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 montelukast (SINGULAIR) 10 mg [...] CAPSULE 0 Active cyanocobalamin/ folic acid (vitamin [id number] acid) 2,500-400 mcg tablet,disinteg rating 0 Active [...] needed for shortness of breath 1 each 4 Active divalproex ER (DEPAKOTE ER) 500 [...] 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 Recurrent seizures ([facility]/HCC) 05/18/2015 Epilepsy with partial complex seizures 3 [...] Date Resolved Date Asthma 06/05/2019 11/02/2023 Immunizations Immunization Administration Dates Next Due Influenza, Quadrivalent, Spl it, Preservative Free, Intramuscular 06/06/2019 Influenza, Unspecified 02/12/2020 Social History Tobacco Use Types Packs/Day Years Used Date Smoking Tobacco: Former Cigarettes 1.3 52.2 S tarted: 1973 Smokeless Tobacco: Never Tobacco Cessation:Counseling Given: Not Answered Alcohol Use Standard Drinks/Week Comments No 0 (1 standard drink = 0.6 oz pur e alcohol) Sex and Gender Information Value Date Recorded Sex Assigned at Not on file 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 Gender Identity Not on file Sexual Orientation Not on file Last Filed Vital Signs Vital Sign Reading Time Taken Comments Blood Pressure 112/74 12/18/2023 9:14 AM CDT Pulse 83 12/18/2023 9:14 AM CDT Temperature 36.1 C (97 F) 11/02/2023 10:38 AM CDT Respiratory Rate 18 [...] MARTINEZ Comment: Interpretive Data Reference Interval Normal >/= 90 mL/min/1.73m2 Mildly decreased* 60 - 89 mL/min/1.73m2 Mildly to moderately decreased 45 - 59 mL/min/1.73m2 Moderately to severely decreased 30 - 44 mL/min/1.73m2 Severely decreased 15 - 29 mL/min/1.73m2 Kidney Failure < 15 mL/min/1.73m2 *Relative to young adult level Estimated glomerular [...] PhD LAB BLOOD ORDERABLES Adeline l Result [facility] Department [place] [address] from Last 3 Months or Most Recently Relevant to Health Maintenance Insurance IDPA [facility] MEDICARE ADVANTAGE [facility] MEDICARE ADVANTAGE [facility] MEDICARE ADVANTAGE [employer] Advance Directives For more information, please contact: [phone] * Full Code (Latest Code Status on File) Date Activated Date Inactivated Comments 08/17/2021 7:34 AM 08/19/2021 10:29 PM * Full Code Date Activated Date Inactivated Comments 07/20/2020 10:14 AM 07/26/2020 7:25 PM * Full Code Date Activated Date Inactivated Comments 06/06/2019 2:57 AM 06/08/2019 2:23 AM Care Teams Asw Specialist Relationship Specialty Start Date End Date Sergey Wilson MD PCP - General 09/20/16
--- OUTSIDE RECORDS SUMMARY | 2024-08-08 11:20 | XMS_ITS | Clinical Summary ---
Author Organization [facility] Address [address] [place] [address] Care Team Providers Care Health And Safety Technician Name Role Phone None, Provider MD Primary [...] 90 09/02/2023 7:09 AM CDT Temperature 37.1 C (98.7 F) 09/01/2023 8:33 PM CDT Respiratory Rate 11 09/02/2023 7:09 AM CDT [...] Vaccines (1 - Tdap) 02/23/1983 COVID-19 Vaccine (4 - 2024-25 season) 2024 05/13/2021, 08/14/2020, 07/17/2020 Influenza Adult (#1) 2024 03/29/2022, 03/02/2021, 02/25/2020, Additional history exists RSV Immunization or 60+ Years (1 - 1-dose 75+ series) 02/23/2039 Pneumococcal Vaccine: Pediatrics (0 to 5 Years) and At-Risk Patients (6 to 64 Years) Aged Out 11/04/2022, 02/26/2015, 01/12/2013 No longer eligible based on patient's age to complete this topic Zoster Vaccines Completed 04/21/2023, 11/04/2022 Meningococcal B Vaccine Aged Out No l onger eligible based on patient's age to complete this topic Meningococcal Vaccine Aged Out No [place] eligible based on patient's age to complete this topic RSV Immunizations Under 20 Months Aged Out No longer eligible based on patient's age to complete this topic Insurance MEDICARE [facility] MEDICAID Care Teams Health And Safety Technician Relationship Specialty Start Date End Date None, Provider, PCP - General UNKNOWN PHYSICIAN SPECIALTY 09/01/23
--- OUTSIDE RECORDS SUMMARY | 2024-08-08 11:20 | XMS_ITS | CONTINUITY OF CARE DOCUMENT ---
Author Name dedrick tse Address Unknown Organization [facility] Address [address] [place] [address] Phone [phone] Care Team Providers Care Eyeglass Frame Truer Name Role Phone Breanna GONZALEZ, Asim Unavailable MINA COTTO MD Unavailable MINA COTTO MD Unavailable [phone] PROBLEMS Condition Status Date Provider Notes S/P Implantable Loop Recorder-Biotronik ( MRI Safe) active Griselda Chris Dyspnea on exertion active Siddharth Sheffield MD SEIZURE DISORDER active Yulissa Stagayleschmidjoel OBESITY active Yulissa Stahlschmidt Hypercholesterolemia active Panda [...] Diabetes, Type 2 active Asim Carlos MD Fatigue active Osei Walker Bronchitis active Asim Carlos MD Hypertriglyceridemia active Mary Gutierrez NP Cardiology examination active Asim Carlos MD S/P Med[employer]onic REVEAL/LinQ completed 06/21 - Osei Walker ABD PAIN-05/23 ABD US ECHOGENIC LIVER POSS HEPATIC STEATOSIS completed - Mary Gutierrez 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 TECHNICIAN CAD05/23 NUC NEG -06/20 NUC NL completed - Kady Sheffield MD ENCOUNTERS Date Type Provider Location Encounter Diag nosis - In-person encounter Office Visit Asim Carlos MD [facility] Bronchitis - In-person encounter Office Visit Asim Carlos MD [facility] Hypertriglyceridemia - In-person encounter Office Visit Asim Carlos MD [facility] AsthmaFatigue - In-person encounter Office Visit Asim Carlos MD [facility] Cardiology examination - In-person encounter Office Visit Asim Carlos MD [facility] - In-person encounter Office Visit Asim Carlos MD [facility] - In-person encounter Office Visit Asim Carlos MD [facility] - In-person encounter Office Visit Asim Carlos MD [facility] - In-person encounter Office Visit Kris Noriega MD [facility] S/P Medtronic REVEAL/LinQ - In-person encounter Office Visit Asim Carlos MD [facility] - In-person encounter Office Visit Asim Carlos MD [facility] - In-person encounter Office Visit Asim Carlos MD [facility] - In-person encounter Office Visit Asim Carlos MD [facility] - In-person encounter Office Visit Asim Carlos MD [facility] - In-person encounter Office Visit Long Ferrell MD [facility] - In-person encounter Office Visit Asim Carlos MD [facility] - In-person encounter Office Visit Asim Carlos MD [facility] - In-person encounter Office Visit Asim Carlos MD [facility] - In-person encounter Office Visit Asim Carlos MD [facility] Diabetes, Type 2 - In-person encounter Office Visit Asim Carlos MD [facility] - In-person encounter Office Visit Asim Carlos MD [facility] - In-person encounter Office Visit Asim Carlos MD [facility] - In-person encounter Office Visit Asim Carlos MD [facility] - In-person encounter Office Visit Long Ferrell MD [facility] - In-person encounter Office Visit Asim Carlos MD [facility] - In-person encounter Office Visit Asim Carlos MD [facility] - In-person encounter Office Visit Sahil Beck MD [facility] Office - In-person encounter Office Visit Sahil Beck MD [facility] Office - In-person encounter Office Visit Asim Carlos MD [facility] - In-person encounter Office Visit Sahil Beck MD [facility] Office Venous hypertension - In-person encounter Office Visit Asim Carlos MD [facility] - In-person encounter Office Visit Asim Carlos MD [facility] LEG PAIN - In-person encounter Office Visit Asim Carlos MD [facility] - In-person encounter Office Visit Maggie Grimes MD [facility] Sleep apnea , sllep study negative 04/27 - In-person encounter Office Visit Asim Carlos MD [facility] - In-person encounter Office Visit Siddharth Sheffield MD [facility] SYMPTOM, DIZZINESS AND GIDDINESSCAD1/10 NUC NEG -207 NUC NLSleep apnea , sllep study negative 04/27AnemiaClaudication, intermittentr/o DVTR/O CAD;DysphagiaTobacco use, quit - In-person encounter Office Visit Long Ferrell MD [facility] ABD PAIN-1/10 ABD US ECHOGENIC LIVER POSS HEPATIC STEATOSISSleep apnea , sllep study negative 04/27SyncopeHTN essential - In-person encounter Office Visit Long Ferrell MD [facility] - In-person encounter Office Visit Long Ferrell MD [facility] - In-person encounter Office Visit Long Ferrell MD [facility] SLEEP APNEA-210 SLEEP STUDY NEG 05/23 LISA NL - In-person encounter Office Visit Long Ferrell MD [facility] VITAL SIGNS Date Observation Value Provider Body Mass Index (Ratio) 33.19 kg/m2 Clay Carlos MD blood pressure, diastolic 74 mm[Hg] Thuy monique [place] blood pressure, systolic 115 mm[Hg] Lina braden [place] oxygen saturation, oximetry 97 % [facility] pulse rate 80 /min [facility] respiratory rate E&M 12 /min [facility] weight E&M 238 [lb_av] [facility] height E&M 71 [in_i] [facility] blood pressure, cuff size regular An eneida [place] Body Mass Index (Ratio) 33.47 kg/m2 Mohamud Gutierrez NP blood pressure, diastolic 76 mm[Hg] Vi emilia [facility], systolic 120 mm[Hg] [facility] in [facility] respiratory rate E&M 16 /min [facility] Katie [facility] oxygen saturation, oximetry 97 % [facility] pulse rate 85 /min [facility] weight E&M 240 [lb_av] [facility] blood pressure, cuff size regular Sofya nieto [facility] height E&M 71 [in_i] [facility] Body Mass Index (Ratio) 33.05 kg/m2 Osei Walker blood pressure, diastolic 71 mm[Hg] Thuy monique [place] blood pressure, systolic 116 mm[Hg] Lina braden [place] oxygen saturation, oximetry 90 % [facility] pulse rate 97 /min [facility] respiratory rate E&M 12 /min [facility] weight E&M 237 [lb_av] [facility] height E&M 71 [in_i] Gem Darling blood pressure, cuff size regular Thuy aDrling Body Mass Index (Ratio) 32.21 kg/m2 Lisa Madridhse blood pressure, diastolic 68 mm[Hg] Doris [facility] blood pressure, systolic 112 mm[Hg] Barbara kLog pulse rate 84 /min Claudette Wilson blood pressure, cuff size regular Jason alvarado Wilson blood pressure, diastolic 68 mm[Hg] Jason alvarado Wilson blood pressure, systolic 112 mm[Hg] Zeke rosado Wilson oxygen saturation, oximetry 98 % Claudette Wilson respiratory rate E&M 12 /min Claudette Wilson weight E&M 231 [lb_av] Claudette Wilson height E&M 71 [in_i] Claudette Wilson Body Mass Index (Ratio) 31.80 kg/m2 Clay Carlos MD blood pressure, cuff size regular Jose Ramon rret blood pressure, diastolic 67 mm[Hg] Ja rret blood pressure, systolic 108 mm[Hg] Jar ret pulse rate 83 /min Dipak papa y oxygen saturation, oximetry 96 % Dipak respiratory rate E&M 16 /min Dipak weight E&M 228 [lb_av] Dipak papa y height E&M 71 [in_i] Dipak y Body Mass Index (Ratio) 33.61 kg/m2 Clay Carlos MD blood pressure, cuff size regular Ja rret blood pressure, diastolic 74 mm[Hg] Ja rret blood pressure, systolic 116 mm[Hg] Jar ret pulse rate 86 /min Dipak respiratory rate E&M 12 /min Dipak oxygen saturation, oximetry 95 % Dipak weight E&M 241 [lb_av] Dipak height E&M 71 [in_i] Dipak Body Mass Index (Ratio) 32.63 kg/m2 Clay Carlos MD pulse rate 78 /min Mary Moyer blood pressure, diastolic 60 mm[Hg] nicola Moyer blood pressure, systolic 100 mm[Hg] She dalton Moyer respiratory rate E&M 20 /min Mary [...] Noriega MD blood pressure, cuff size large moody Yepez blood pressure, diastolic 87 mm[Hg] Ke rrroyce Yepez blood pressure, systolic 132 mm[Hg] Venessa Daicatrachito oxygen saturation, oximetry 96 % Noemi Daicatrachito respiratory rate E&M 16 /min Noemi pooleeldjustin pulse rate 81 /min Noemi Yusuf lder weight E&M 232 [lb_av] Noemi Yusuf lder height E&M 71 [in_i] Noemi Yusuf lder Body Mass Index (Ratio) 32.27 kg/m2 Clay Carlos MD blood pressure, diastolic 72 mm[Hg] [facility] Jose blood pressure, systolic 116 mm[Hg] Ro Jose oxygen saturation, oximetry 98 % Raquel Jose pulse rate 95 /min Raquel Jose respiratory rate E&M 16 /min Raquel souza [...] Carlos MD blood pressure, cuff size large rri Gruenenfelder blood pressure, diastolic 70 mm[Hg] Nataliya Laneuenenfelder blood pressure, systolic 110 mm[Hg] Venessa Yepez oxygen saturation, oximetry 94 % Noemi Yepez respiratory rate E&M 14 /min Noemi lucasenenfelder pulse rate 123 /min Noemi Yusuf lder weight E&M 226 [lb_av] Noemi Daie lder height E&M 71 [in_i] Noemi Yusuf er Body Mass Index (Ratio) 33.33 kg/m2 Clay Carlos MD blood pressure, diastolic 60 mm[Hg] Jasmyn jemAidaramila Mcclain blood pressure, systolic 110 mm[Hg] Selena Mcclain oxygen saturation, oximetry 95 % Madhavi Ramirezenson respiratory rate E&M 16 /min Kristin Mcclain pulse rate 86 /min Madhavi Mohr edenleanna weight E&M 239 [lb_av] Madhavi Mohr hay height E&M 71 [in_i] Madhavi Mohr hay Body Mass Index (Ratio) 33.33 kg/m2 Clay Carlos MD blood pressure, resting Yes Mohamud willam Steven blood pressure, diastolic 70 mm[Hg] ivan Steven blood pressure, systolic 114 mm[Hg] [facility] chan Harris oxygen saturation, oximetry 96 % Carmelo Harris pulse rate 78 /min Carmelo orr respiratory rate E&M 18 /min Robinaroyce fernando Harris weight E&M 239 [lb_av] Mohamudwillam Fabrice orr height E&M 71 [in_i] Carmelo orr Body Mass Index (Ratio) 33.33 kg/m2 Josh Ferrell MD blood pressure, cuff size regular Cy eunice Wisdom blood pressure, diastolic 70 mm[Hg] Cy eunice Wisdom blood pressure, systolic 122 mm[Hg] Allie castellon Wisdom weight E&M 239 [lb_av] Ya Hammondsbel l pulse rate 74 /min Ya miller respiratory rate E&M 16 /min Ya Wisdom oxygen saturation, oximetry 97 % Ya Wisdom height E&M 71 [in_i] Ya Hammondsbel l Body Mass Index (Ratio) 32.49 kg/m2 Clay Carlos MD blood pressure, cuff size large Ke rri Gruenenfshaheeder blood pressure, diastolic 60 mm[Hg] Ke rri Gruenenfelder blood pressure, systolic 120 mm[Hg] Venessa Yepez oxygen saturation, oximetry 97 % Noemi Yepez respiratory rate E&M 16 /min Noemi gonzalez pulse rate 89 /min Noemi Yusuf lder weight E&M 233 [lb_av] Noemi Domingouenenfe lder height E&M 71 [in_i] Noemi Wallacenenfsergey lder Body Mass Index (Ratio) 32.13 kg/m2 Clay Carlos MD blood pressure, diastolic 70 mm[Hg] Jasmyn Mcclain blood pressure, systolic 110 mm[Hg] Selena Mcclain oxygen saturation, oximetry 98 % Madhavi Mcclain respiratory rate E&M 18 /min Kristin Mcclain pulse rate 73 /min Madhavi guido weight E&M 230.4 [lb_av] Madahvi elizabeth height E&M 71 [in_i] Madhavi guido Body Mass Index (Ratio) 32.49 kg/m2 Clay Carlos MD blood pressure, diastolic 70 mm[Hg] Cy ntgarretta Wisdom blood pressure, systolic 118 mm[Hg] Allie thia Wisdom respiratory rate E&M 16 /min Ya [...] MD blood pressure, diastolic 70 mm[Hg] Jasmyn arrieta O'Sp blood pressure, systolic 108 mm[Hg] Selena matias [...] E&M 18 /min Kristin Mcclain pulse rate 71 /min Madhavi guido weight E&M 223.6 [lb_av] Madhavi elizabeth height E&M 71 [in_i] Madhavi guido Body Mass Index (Ratio) 30.40 kg/m2 Clay Carlos MD blood pressure, cuff size regular Cy eunice Wisdom blood pressure, diastolic 60 mm[Hg] Cy ntbird Wisdom blood pressure, systolic 106 mm[Hg] Allie ravinder Wisdom oxygen saturation, oximetry 97 % Ya [...] Madhavi guido weight E&M 228.2 [lb_av] Madhavi elizabeth height E&M 71 [in_i] Madhavi Mohr nsleanna Body Mass Index (Ratio) 31.66 kg/m2 Josh [...] Carlos MD blood pressure, diastolic 78 mm[Hg] ontaida Nirav blood pressure, systolic 132 mm[Hg] [facility] ntaida Nirav pulse rate 89 /min [facility] Cent[facility]telle Nirav oxygen saturation, oximetry 97 % [facility] Cent[facility]taida Nirav respiratory rate E&M 20 /min [facility] Cent[facility] dex Nirav weight E&M 232 [lb_av] [facility] Cent[facility] Nirav height E&M 71 [in_i] [facility] Cent[facility]taida Nirav Body Mass Index (Ratio) 32.69 kg/m2 Clay Carlos MD blood pressure, diastolic 81 mm[Hg] Jasmyn Mcclain blood pressure, systolic 130 mm[Hg] Selena Mcclain oxygen saturation, oximetry 95 % Madhavi Mcclain respiratory rate E&M 18 /min Kristin Mcclain pulse rate 84 /min Madhavi Onur edenleanna weight E&M 234.4 [lb_av] Madhavi James clara height E&M 71 [in_i] Madhavi Mohr leanna Body Mass Index (Ratio) 33.75 kg/m2 Ranulfo Singletary RN blood pressure, resting Yes Andressa Carrillo respiratory rate E&M 22 /min Sandra Carrillo pulse rate 89 /min Sandra Carrillo oxygen saturation, oximetry 98 % Sandra Carrillo blood pressure, diastolic 80 mm[Hg] Ta nick Carrillo blood pressure, systolic 140 mm[Hg] Shaffer logan Carrillo blood pressure, cuff size regular Jason Carrillo weight E&M 242 [lb_av] Sandra Carrillo height E&M 71 [in_i] Sandra Carrillo Body Mass Index (Ratio) 34.03 kg/m2 Susanne Beck MD pulse rate 81 /min Sandra Carrillo respiratory rate E&M 18 /min Sandra Carrillo oxygen saturation, oximetry 98 % Sandra Carrillo blood pressure, diastolic 90 mm[Hg] Ta nick Carrillo blood pressure, systolic 143 mm[Hg] Edmund ford Crarillo blood pressure, cuff size large Jason Carrillo weight E&M 244 [lb_av] Sandra Carrillo [...] diastolic, left arm 70 mm [Hg] Johanna Catracho blood pressure, systolic, left arm 120 mm [Hg] Johanna Espinosahley blood pressure, diastolic, right arm 68 m m[Hg] Johanna Catracho blood pressure, systolic, right arm 116 m m[Hg] Johannamirella Espinosahley blood pressure, diastolic 70 mm[Hg] Josiah Espinosahley blood pressure, systolic 120 mm[Hg] Colton [facility] pulse rate 82 /min Johanna Espinosahley oxygen saturation, oximetry 98 % Johanna Catracho respiratory rate E&M 18 /min Johanna Catracho Body Mass Index (Ratio) 33.53 kg/m2 Bay Espinosahley weight E&M 240.4 [lb_av] Johanna Woods masha blood pressure, diastolic 60 mm[Hg] Jasmyn Mcclain blood pressure, systolic 124 mm[Hg] Selena Mcclain pulse rate 75 /min Madhavi guido oxygen saturation, oximetry 98 % Madhavi Mcclain respiratory rate E&M 16 /min Kristin Mcclain Body Mass Index (Ratio) 33.69 kg/m2 Emely Mcclain weight E&M 241.6 [lb_av] Madhavi elizabeth blood pressure, diastolic 60 mm[Hg] Jasmyn Mcclain blood pressure, systolic 110 mm[Hg] Selena Mcclain pulse rate 80 /min Madhavi guido oxygen saturation, oximetry 98 % Madhavi Mcclain respiratory rate E&M 16 /min Kristin Mcclain Body Mass Index (Ratio) 33.94 kg/m2 Emely Mcclain weight E&M 243.4 [lb_av] Madhavi elizabeth blood pressure, diastolic 70 mm[Hg] Me kauffmansa Morocho blood pressure, systolic 128 mm[Hg] Janene laineza [place] pulse rate 82 /min Qing [place] oxygen saturation, oximetry 98 % Qing [place] respiratory rate E&M 16 /min Qing [place] Body Mass Index (Ratio) 34.17 kg/m2 [facility] [lb_av] Qing [place] blood pressure, diastolic 70 mm[Hg] Me mcclure [place] blood pressure, systolic 118 mm[Hg] Janene laineza [place] pulse rate 86 /min Qing [place] oxygen saturation, oximetry 98 % Qing [place]o respiratory rate E&M 16 /min Qing Morocho Body Mass Index (Ratio) 34.17 kg/m2 [facility] weight E&M 245 [lb_av] Qing Morocho blood pressure, diastolic 91 mm[Hg] Jasmyn Mcclain blood pressure, systolic 154 mm[Hg] Selena Mcclain pulse rate 90 /min Madhavi guido oxygen saturation, oximetry 97 % Madhavi Mcclain respiratory rate E&M 18 /min Kristin Mcclain Body Mass Index (Ratio) 33.36 kg/m2 Emely Mcclain weight E&M 239.2 [lb_av] Madhavi elizabeth blood pressure, diastolic 85 mm[Hg] Jasmyn Mcclain blood pressure, systolic 147 mm[Hg] Selena Mcclain pulse rate 85 /min Madhavi guido oxygen saturation, oximetry 97 % Madhavi Mcclain respiratory rate E&M 18 /min Kristin Mcclain Body Mass Index (Ratio) 33.27 kg/m2 Emely Mcclain weight E&M 238.6 [lb_av] Madhavi elizabeth Body Mass Index (Ratio) 32.77 kg/m2 Yanelis griffin Brown blood pressure, diastolic 84 mm[Hg] An sherita Brown blood pressure, systolic 120 mm[Hg] Ane atris Brown pulse rate 78 /min Aneatris Brown oxygen saturation, oximetry 97 % Aneatris Brown respiratory rate E&M 17 /min Aneatri s Brown weight E&M 235 [lb_av] Aneatris Brown height E&M 71 [in_i] Aneatris Brown blood pressure, diastolic 66 mm[Hg] Jose Ramon Krause RN blood pressure, systolic 113 mm[Hg] Reese Krause RN pulse rate 72 /min Reese Krause RN oxygen saturation, oximetry 96 % Reese Krause RN respiratory rate E&M 16 /min Reese beard RN weight E&M 220 [lb_av] Reese Krause RN blood pressure, diastolic, right arm 86 m m[Hg] Rafa Manacop blood pressure, systolic, right arm 142 m m[Hg] Rafa [place] blood pressure, diastolic 86 mm[Hg] Rosetta toth [place] blood pressure, systolic 142 mm[Hg] Wilfrid sevilla [place] pulse rate 77 /min Rafa [place] oxygen saturation, oximetry 98 % Rafa [place] respiratory rate E&M 16 /min Rafa [place] weight E&M 223 [lb_av] Rafa [place] blood pressure, diastolic 80 mm[Hg] Jose Ramon Krause RN blood pressure, systolic 126 mm[Hg] Reese Krause RN pulse rate 80 /min Reese Krause RN oxygen saturation, oximetry 97 % Reese Krause RN respiratory rate E&M 18 /min Reese beard RN weight E&M 216 [lb_av] Reese Jimi RN blood pressure, diastolic 76 mm[Hg] Josiah kang [place] blood pressure, systolic 119 mm[Hg] Williamson [place] pulse rate 81 /min Nelly [place] oxygen saturation, oximetry 99 % Nelly [place] respiratory rate E&M 22 /min Nelly Lorenzo hall weight E&M 156 [lb_av] Nelly Landers ALLERGIES Allergy Name Onset Date Reaction Criticality Status TEGRETOL Low Criticality active RESULTS Date Observation Value Provider Reference Range Interpretation Location very low density lipoproteins 130.2 mg/dL [facility] 5.0 - 40.0 High LDL/HDL (low-density lipoprotein/high-de nsity lipoprotein) ratio -37.0 [facility], beta, serum, point, quantitative, calculated -999.0 (?) [facility] 0.0 - 100.0 Low HDL cholesterol, serum 27.0 mg/dL [facility] 35.0 - 55.0 Low cholesterol, serum 220.0 mg/dL [facility] 0.0 - 200.0 High triglyceride, serum, fasting 651.0 mg/dL [facility] 0.0 - 150.0 High red blood cell distribution width, size density 45.8 fL [facility] - immature granulocytes, percentage of total cells, blood 0.9 % [facility] - nucleated red blood cells as percent of blood leukocytes 0.0 % [facility] - red blood cell (erythrocyte) count, per high power field 0.0 10*3/UL [facility] - eosinophils as percent of blood leukocytes 3.2 % [facility] - neutrophils as percent of blood leukocytes [...] cell distribution width, size density 46.1 fL [facility] - immature granulocytes, percentage of total cells, blood 1.4 % [facility] - nucleated red blood cells as percent of blood leukocytes 0.0 % [facility] - red blood cell (erythrocyte) count, per high power field 0.0 10*3/UL [facility] as percent of blood leukocytes 3.0 % [facility] - neutrophils as percent of blood leukocytes 42.9 % [facility] Neutrophils 3.1 CELLS/UL [facility] 1.5 - 7.8 basophils as percent of blood leukocytes 0.4 % [facility] - Absolute Basophils 0.0 CELLS/UL [facility] 0.0 - 0.2 monocytes as percent of blood leukocytes 10.2 % [facility] - Absolute Monocytes 0.7 CELLS/UL [facility] 0.2 - 1.0 lymphocytes as percent of blood leukocytes 42.1 % [facility] - Absolute Lymphocytes 3.1 CELLS/UL [facility] 0.9 - 3.9 mean platelet volume 10.6 (?) [facility] - platelet count 232.0 THOUSAND/U L [facility] 100.0 - 400.0 mean corpuscular hemoglobin concentration, RBC 30.6 G/DL [facility] 31.0 - 38.0 Low mean corpuscular hemoglobin, RBC 26.7 pg [facility] 25.0 - 35.0 mean corpuscular volume, RBC 87.3 fL [facility] 75.0 - 100.0 hematocrit, blood 43.5 % [facility] 35.0 - 55.0 hemoglobin, blood 13.3 g/dL [facility] 11.5 - 16.5 erythrocyte count, whole blood 5.0 MILLION/UL [facility] 3.5 - 5.5 hemoglobin A1C, blood, as % of total hemoglobin 6.0 % [facility] 4.0 - 6.0 activated partial thromboplastin time 24.6 SECONDS [facility] 23.0 - 33.0 prothrombin time (patient) 10.2 s [facility] 9.0 - 11.5 international normalized ratio (INR) 1.0 [facility] 0.9 - 1.1 C-reactive protein, serum 0.2 [...] - 144.0 vitamin b12, serum 576.6 pg/mL [facility] 211.0 - 946.0 folate, serum 9.1 NG/MLM [facility] 4.4 - 31.0 anion gap, serum 15.8 [facility] globulins, serum, total 3.5 g/dL [facility] estimated glomerular filtration rate >60 [facility] albumin/globulin ratio, serum 1.0 [facility] protein, total, serum 7.1 g/dL [facility] albumin, serum 3.6 g/dL [facility] bilirubin, serum, total 0.3 mg/dL [facility] alkaline phosphatase, serum 105 1/L [facility] alanine aminotransferase (SGPT), serum 77 1/L [facility] aspartate aminotransferase (SGOT), serum 54 1/L [facility] calcium, serum 8.4 mg/dL [facility] blood glucose, fasting 79 mg/dL [facility] creatinine, serum 0.88 mg/dL [facility] urea nitrogen, blood 9.2 mg/dL [facility] carbon dioxide, serum, total 20 mmol/L [facility] chloride, serum 108 mmol/L [facility] potassium, serum 3.8 mmol/L [facility] sodium, serum 140 mmol/L [facility] triglyceride, serum, fasting 217 mg/dL [facility] HDL cholesterol, serum 40 mg/dL [facility] LDL cholesterol, serum 57.6 mg/dL [facility] cholesterol, serum 141 mg/dL [facility] globulins, serum, total 2.9 g/dL [facility] Estimated Glomerular Filtration Rate (calc) >60 [facility] albumin/globulin ratio, serum 1.2 [facility] protein, total, serum 6.3 g/dL [facility] albumin, serum 3.4 g/dL [facility] bilirubin, serum, total 0.10 mg/dL [facility] alkaline phosphatase, serum 103 1/L [facility] alanine aminotransferase (SGPT), serum 66 1/L [facility] aspartate aminotransferase (SGOT), serum 46 1/L [facility] calcium, serum 8.2 mg/dL [facility] blood glucose, fasting 97 mg/dL [facility] creatinine, serum 0.97 mg/dL [facility] urea nitrogen, blood 12 mg/dL [facility] carbon dioxide, serum, total 22 mmol/L [facility] chloride, serum 110 mmol/L [facility] potassium, serum 3.8 mmol/L [facility] sodium, serum 140 mmol/L [facility] platelet count 2-3 [facility] red blood cell distribution width 13.2 % [facility] mean corpuscular hemoglobin concentration, RBC 33.9 g/dL [facility] mean corpuscular hemoglobin, RBC 31.5 pg [facility] mean corpuscular volume, RBC 92.9 fL [facility] hematocrit, blood 40.7 % [facility] hemoglobin, blood 13.8 g/dL [facility] erythrocyte (RBC) count 4.38 10*6/mm3 Janeen Dupont monocytes as percent of blood leukocytes 8.3 % Janeen Dupont lymphocytes as percent of blood leukocytes 35.4 % Janeen Dupont leukocyte count, blood 6.5 10*3/mm3 Janeen Dupont HISTORY OF MEDICATION USE Medication Status Instructions Dates Provider Indications Com ments amoxicillin-pot clavulanate 875-125 mg tablet active 1 tablet twice a day Asim Carlos MD omeprazole 20 mg capsule,delayed release(DR/EC) active TAKE 1 CAPSULE BY MOUTH EVERY DAY Juhi Meyers PERSONNEL SUPERVISOR Jardiance 25 mg tablet active TAKE 1 TABLET BY MOUTH DAILY Alma Carey citalopram 40 mg tablet active TAKE 1 TABLET BY MOUTH EVERY MORNING Josiah Sotelo ergocalciferol (vitamin D2) 1,250 mcg (50,000 unit) capsule active TAKE 1 CAPSULE BY MOUTH EVERY WEEK Josiah Sotelo glimepiride 1 mg tablet active TAKE 2 TABLETS BY MOUTH TWICE DAILY DIRECTED Josiah Sotelo nortriptyline 75 mg capsule active TAKE 1 CAPSULE BY MOUTH TWICE DAILY Angie Ruple rosuvastatin 40 mg tablet active TAKE 1 TABLET BY MOUTH EVERY NIGHT AT BEDTIME Alma Rushiestrellita rosuvastatin 40 mg tablet completed TAKE 1 TABLET BY MOUTH EVERY DAY AT BEDTIME - Noemi Yepez nortriptyline 75 mg capsule completed Take 75 mg by mouth twice a day - Angie Ruple Jardiance 25 mg tablet completed Take 1 tablet by mouth once a day - Alma Quinonezhiestrellita fenofibrate 160 mg tablet active Take 1 tablet by mouth once a day Noemi Yepez #90, 90 days supply, Prescribed by ANIKET DOUGHERTY, Filled 07/04/2020 doxycycline hyclate 100 mg capsule completed Take 1 capsule by mouth twice a day - Dipak Banegas aspirin 81 mg tablet,chewable active CHEW AND SWALLOW 1 TABLET BY MOUTH EVERY DAY Alma Rushing furosemide 40 mg tablet completed TAKE 1 TABLET BY MOUTH EVERY DAY - Juhi Mira SPAIN metoprolol tartrate 100 mg tablet completed Take one tab the night before the CT, Take one tab two hours before the CT at 10:30am (05/31). - Dipak Banegas Lasix 40 mg tablet completed Take 1 tablet by mouth once a day - Mary Moyer enalapril maleate 5 mg tablet active TAKE 1 TABLET BY MOUTH EVERY DAY Alma Rushiestrellita amoxicillin-pot clavulanate 875-125 mg tablet completed Take [...] q 6 hours prn pain - Yulia Cannon CEPHALEXIN 500 MG ORAL CAPSULE completed 1 po tid x 5 days - Yulia Cannon MECLIZINE HCL 25 MG ORAL TABLET completed Take 1 tablet once a day as needed - Ya Wisdom Advair Diskus 250-50 mcg/dose blister with device completed Inhale 1 puff by mouth twice a day - Veronica Godinez aspirin 81 mg tablet,chewable completed Chew 1 tablet by mouth once a day - Kimberly Johnson FENOFIBRATE 160 MG ORAL TABLET completed ONE TAB. DAILY - Madhavi Mcclain atorvastatin 20 mg tablet active 1 tablet once a day Asim Carlos MD Synthroid 50 mcg tablet active Take 1 tablet once a day Asim Carlos MD VITAMIN D TABLET completed 1 tablet once a week - Juhi MENDEZP Singulair 10 mg tablet active 1 tablet once a day Madhavi Mcclain ALEVE CAPSULE active as needed Madhavi Mcclain MILK OF MAGNESIA completed as needed 10ml - Rafa Mandidier MYLANTA SUSPENSION completed 30ml as needed - Yulia Cannon cyclobenzaprine 10 mg tablet active twice a day Asim Carlos MD citalopram 20 mg tablet completed once a day - Josiah Sotelo KLONOPIN 1 MG ORAL TABLET completed 1 tablet by mouth daily - Aneatris Brown DEPAKOTE 500 MG ORAL TABLET DELAYED RELEASE completed 2 tabs every morn - Rafa Heard omeprazole 20 mg capsule,delayed release(DR/EC) completed 1 tablet by mouth once a day - Juhi MENDEZP ADVAIR HFA AEROSOL completed TWICE A DAY - Madhavi Mcclain ProAir HFA 90 mcg/actuation HFA aerosol inhaler active as needed Reese Krause RN LYRICA 75 MG ORAL CAPSULE completed - Reese Krause RN Depakote 500 mg tablet,delayed release (DR/EC) active 2 tablet by mouth twice a day Juhi Ventimiglia [facility] LEXAPRO 10 MG ORAL TABLET completed ONE [...] Provider personal history of marijuana use no Juhi Ventimiglia [facility] drug use no Juhi Ventimig andrae [facility] alcohol use no Juhi Ventimig andrae [facility] passive cigarette sm familia exposure no Juhi Ventimiglia [facility] smoking status Never smoker Juhi Ventim iglia [facility] personal history of marijuana use no Mary Matt 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 TECHNICIAN drug use no Mary Matt 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 TECHNICIAN alcohol use no Mary Reserve 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 TECHNICIAN passive cigarette sm familia exposure no Mary Matt 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 TECHNICIAN smoking status Never smoker Mary Harrisdal l 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 TECHNICIAN personal history of marijuana use no Osei Ahmedzai drug use no Osei Ahmedzai alcohol use no Osei Ahmedzai passive cigarette sm familia exposure no Osei Ahmedzai smoking status Never smoker Osei Ahmedzai personal history of marijuana use no Juhi Ventimiglia PERSONNEL SUPERVISOR drug use no Juhi Ventimig andrae PERSONNEL SUPERVISOR alcohol use no Juhi Ventimig andrae [facility] passive cigarette sm familia exposure no Juhi Lawmiglandrews [facility] smoking status Never smoker Juhi quiroga [facility] alcohol use no Asim Kerr passive cigarette [...] a former smoker. Smoking History: Eddie lopez has never smoked. Asim Carlos MD social history reviewed E&M revi ewed - no changes required Asim Carlos MD smoking status Never smoker Mary Moyer social history E&M Marital Statu s: Single L leonora alone E thnicity: Eddie lopez is a former smoker. Smoking History: Eddie lopez has never smoked. Asim Carlos MD social history reviewed E&M revi ewed - no changes required Asim Carlos MD smoking status Never smoker Mary Moyer social history reviewed E&M revi ewed - no changes required Osei Walker social history E&M Marital Statu s: Single L leonora alone E thnicity: Eddie lopez is a former smoker. Smoking History: Eddie lopez is a former smoker. Osei Walker physical exercise, frequency, days per week no Noemi Yepez caffeine use, averag e drinks per day yes Noemi Yepez passive cigarette sm familia exposure no Noemi Yepez smoking, date started 1973 Noemi Yepez smoking history, tot al pack/year 43 Noemi Yepez cigarette use yes Noemi winston smoking status Former smoker Noemi Laneryan guo social history E&M Marital Statu s: Single L leonora alone E thnicity: Eddie lopez is a former smoker. Smoking History: Eddie lopez is a former smoker. Asim Carlos MD social history reviewed E&M revi ewed - no changes required Asim Carlos MD physical exercise, frequency, days per week no Raquelalanna Jose caffeine use, averag e drinks per day yes Raquelalanna Jose passive cigarette sm familia exposure no Raquelalanna Jose smoking, date started 1973 Raquelalanna Jose smoking history, tot al pack/year 43 Raquelalanna Jose cigarette use yes Raquelalanna Jose smoking status Former smoker Raquel Damon social history reviewed E&M revi ewed - [...] exposure no Noemi Yepez smoking, date started 1973 Noemi Yepez smoking history, tot al pack/year 43 Noemi Yepez cigarette use yes Noemi winston smoking status Former smoker Noemi Suzette guo social history E&M Marital Statu s: Single [...] exercise, frequency, days per week no Carmelo Steven caffeine use, averag e drinks per day yes Carmelo Steven passive cigarette sm familia exposure no Carmelo Steven smoking, date started 1974 Mohamudnataliya ashlee Harris smoking history, tot al pack/year 43 Carmelo Harris cigarette use yes Carmelo Umang siddiqui smoking status Former smoker Carmelo Julia bundy social history reviewed E&M revi ewed - no changes required Long Ferrell MD social history E&M Marital Statu s: Single L leonora alone E thnicity: Eddie lopez is a former smoker. Smoking History: P jessica is a former smoker. Long Ferrell MD physical exercise, frequency, days per week no Ya Wisdom caffeine use, averag e drinks per day yes Ya Wisdom passive cigarette sm familia exposure no Ya Wisdom smoking, date started 1973 Juan Wisdom smoking history, tot al pack/year 43 Ya Wisdom cigarette use yes Ya Cardenas tristin smoking status Former smoker Ya lora social history E&M Marital Statu s: Single L leonora alone E thnicity: P atpaul is a former smoker. Smoking History: P atpaul is a former smoker. Asim Carlos MD social history reviewed E&M revi ewed - no changes required Asim Carlos MD physical exercise, frequency, days per week no Noemi Yepez caffeine use, averag e drinks per day yes Noemi Yepez passive cigarette sm familia exposure no Noemipearl Yepez smoking, date started 1973 Noemi Yepez smoking history, tot al pack/year 43 Noemi Lucho cigarette use yes Noemi Suhas winston smoking status Former smoker Noemi Laneryan guo social history E&M Marital Statu s: Single L leonora alone E thnicity: P atpaul is a former smoker. Smoking History: P atpaul is a former smoker. Asim Carlos MD [...] a former smoker. Smoking History: P atpaul is a former smoker. Asim Carlos MD social history reviewed E&M revi ewed - no changes required Asim Carlos MD physical exercise, frequency, days per week no Ya Wisdom caffeine use, averag e drinks per day yes Ya Wisdom passive cigarette sm familia exposure no Ya Wisdom smoking, date started 1973 Juan Wisdom smoking history, tot al pack/year 43 Ya Wisdom cigarette use yes Yajocelyn crow smoking status Former smoker Ya Cassius lora social history reviewed E&M revi ewed - no changes required Asim Carlos MD social history E&M Marital Statu s: Single L leonora alone E thnicity: P jessica is a former smoker. Smoking History: P atpaul is a former smoker. Asim Carlos MD social history reviewed E&M revi ewed - no changes required Asim Carlos MD physical exercise, frequency, days per week no Yulia Cannon caffeine use, averag e drinks per day yes Yulia Cannon passive cigarette sm familia exposure no Yulia Blas'Sp smoking, date started 1973 Yulia O'Sp smoking history, tot al pack/year 43 Yulia O'Ps cigarette use yes Yulia O'Sp smoking status Former smoker Yulia Blas'Katherine l social history E&M Marital Statu s: Single L leonora alone E thnicity: P atpaul is a former smoker. Smoking History: P atpaul is a former smoker. Asim Carlos MD [...] none Madhavi Mcclain alcohol use no Madhavi harmonon caffeine use, averag e drinks per day yes aMdhavi Mcclain passive cigarette sm familia exposure no [...] Asim Carlos MD social history reviewed E&M revroyce ewed - no changes required Asim Carlos MD social history E&M Marital Statu s: Single L leonora alone E thnicity: Eddie lopez is a former smoker. Smoking History: Eddie lopez is a former smoker. Asim Carlos MD physical exercise, frequency, days per week no Madhavi Mcclain alcohol use, average drinks per day none Madhavi Mcclain alcohol use no Madhavi Mohr edenon caffeine use, averag e drinks per day yes Madhavi Mcclain passive cigarette sm familia exposure no Madhavi Mcclain smoking, date started 1973 EmelyJon hao Mcclain smoking history, tot al pack/year 43 Madhavi Mcclain cigarette use yes Madhavi shepardon smoking status Former smoker Madhavi Flores smoking history, tot al pack/year 43 Светлана Carrizales smoking history, tot al pack/year 43 Trina Mustafa RN physical exercise, frequency, days per week no Sahillety Beck MD alcohol use, average drinks per day none Sahileddie Beck MD alcohol use no Sahil Kiran GONZALEZ caffeine use, averag e drinks per day yes Sahileddie Beck MD passive cigarette sm familia exposure no Sahil Beck MD smoking, date started 1974 Irma Beck MD smoking history, tot al pack/year 42 Sahil Beck MD cigarette use yes Sahil Beck MD smoking status Former smoker Sahil Beck MD social history reviewed E&M [...] Linda Singletary RN cigarette use yes Linda ram RN smoking status Former smoker Linda gutiérrez RN social history reviewed E&M revi ewed - no changes required Linda Singletary RN number of grandchildren Sahil Cook social history reviewed E&M revi ewed - [...] 42 Madhavi Mcclain cigarette use yes Madhavi elizabeth smoking status Former smoker Madhavi Flores social history reviewed E&M revi ewed - no changes required Asim Carlos MD physical exercise, frequency, days per week no Madhavi Mcclain alcohol use, average drinks per day none Madhavi Mcclain alcohol use no Madhavi oMhr nson caffeine use, averag e drinks per day yes Madhavi Mcclain passive cigarette sm familia exposure no Madhavi Mcclain smoking, date started 1973 Radha Mcclain smoking history, tot al pack/year 42 Madhavi Mcclain cigarette use yes Madhavi elizabeth smoking status Former smoker Madhavi Flores social history reviewed E&M revi ewed - no changes required Asim Carlos MD physical exercise, frequency, days per week no Qing Patelann alcohol use, average drinks per day none Qing Patelann alcohol use no Qing Morocho caffeine use, averag e drinks per day yes Qing Morocho passive cigarette sm familia exposure no Qing Morocho smoking, date started 1974 Danny Morocho smoking history, tot al pack/year 42 Qing Morocho cigarette use yes Qing Morocho smoking status Former smoker Qing Campbell shamar social history reviewed E&M revi ewed - [...] Morocho smoking status Former smoker Qing Campbell shamar smoking history, tot al pack/year 42 Maryjane Sarabia RN smoking history, tot al pack/year 42 Maryjane Sarabia RN alcohol use no Asim Kerr passive cigarette sm familia exposure no Asim Carlos MD social history reviewed E&M revi ewed - no changes required Asim Carlos MD smoking, date started 1974 Radha Mcclain smoking history, tot al pack/year 41 Madhaviramila Mcclain cigarette use yes Madhavi elizabeth smoking status Former smoker Madhavi St trujillo physical exercise, frequency, days per week no Qing Morocho alcohol use, average drinks per day none Qing Morocho caffeine use, averag e drinks per day yes Qing Morocho smoking history, tot al pack/year 41 Emely WiseKandi smoking history, tot al pack/year 41 Emely Bolandabelardo WARD quit smoking, stage quit Siddharth mayorag MD social history reviewed E&M revi ewed - no changes required Siddharth Sheffield MD physical exercise, frequency, days per week no Madhavi Mcclain alcohol use, average drinks per day none Madhavi Mcclain caffeine use, averag e drinks per day yes Madhavi Mcclain smoking, date started 1974 EmelyJon hao Mcclain cigarette use yes Madhavi James enson smoking status Former smoker Madhavi Flores smoking, date started 1974 Mary Gutierrez NP cigarette use yes Mary Gutierrez NP social history E&M Marital Statu s: Single L leonora alone E thnicity: Eddie lopez is a former smoker. Smoking History: Eddie lopez is a former smoker. Mary Gutierrez NP smoking/tobacco cess ation, patient education and counseling yes Mary Gutierrez NP social history reviewed E&M revi ewed - no changes required Mary Gutierrez [...] (inactive) Management Plan continue current therapy Juhi SPAIN HRA, CV Assess/Plan, Angina (inactive) Management Plan [...] (inactive) Management Plan continue current therapy Asim Breanna GONZALEZ HRA, CV Assess/Plan, Angina (inactive) Management Plan continue current therapy Asim Rammeli GONZALEZ HRA, CV Assess/Plan, Angina (inactive) Management Plan continue current therapy Asim Rammeli GONZALEZ HRA, CV Assess/Plan, Angina (inactive) Management Plan continue current therapy Asim Rammeli GONZALEZ HRA, CV Assess/Plan, Angina (inactive) Management Plan continue current therapy Asim Ramadaramila GONZALEZ HRA, CV Assess/Plan, Angina (inactive) Management Plan continue current therapy Asim Ramadaramila GONZALEZ HRA, CV Assess/Plan, Angina (inactive) Management Plan continue current therapy Asim Rammeli GONZALEZ HRA, CV Assess/Plan, Angina (inactive) Management Plan continue current therapy Linda Singletary RN HRA, CV Assess/Plan, Angina (inactive) Management Plan continue current therapy Asim Breanna GONZALEZ HRA, CV Assess/Plan, Angina (inactive) Management Plan [...] Payer name Policy type / Coverage type [place] [employer] party ID [facility]TE [facility] [id number] (PPO C-SNP) Commercial insurance [employer] [id number] [facility] Medicaid 0 [id number] ADVANCE DIRECTIVES Name Date POWER OF ENTERPRISE [employer] ARCHIT[employer] TREATMENT PLAN Date Name Performer [id number],S, Asim Mejia n [id number],S, sAim Mejia n [id number],S, Asim Roberto n [id number],B,Normal AIF Ra fiq Robertoramila GONZALEZ [id number],S, Asim Roberto n [id number],S, Asim Roberto n [place] [id number],B, Asim Roberto n [id number],S, Asim Mejia n [id number],S, Asim Ramshaun n [place] [id number],S, Asim Mejia n [place] [id number],B, Asim Roberto n [place] [id number],C, R ecent device check showed no abnormalities, normal function. Kris Noriega [place] [id number],C, B P today: 132/87 P rior BP: [...] by mouth every day Kris Noriega MD [id number],W,P atient did not have LOC with his episode [...] by mouth every day Kris Noriega MD [id number],W,A ssociated with his SOB. HIs stress showed fixed defect, we will check CTA coronaries to evaluate sxs. H is updated medication list for this problem includes: Aspirin 81 Mg Tablet,chewable (Aspirin) ..... Chew 1 tablet by mouth once a day Enalapril Maleate 5 Mg Tablet (Enalapril maleate) ..... Take 1 tablet by mouth every day Kris Noriega MD [id number],W,P jessica reports yesterday he was at [facility] and he started to experience significant shortness [...] and the stress results. Kris Noriega MD [id number],C, R ecent device check showed no abnormalities, normal function. Osei Walker [id number],C,A ssociated with his SOB. HIs stress showed fixed defect, we will check CTA coronaries to evaluate sxs. Osei Walker [id number],C, B P today: 132/87 P rior BP: 116/72 (03/14/2022) Labs Reviewed: C reat: 0.6 (05/26/2015) C hol: 220.0 (05/26/2015) HDL: 27.0 (05/26/2015) T.0 (05/26/2015) Osei Walker [id number],C,P jessica did not have LOC with his episode of shortness of breath but became very weak and had to lie down on the floor. Osei Walker [id number],C,P jessica reports yesterday he was at [facility] and he started to experience significant shortness [...] of breath and the stress results. Osei Johnroyce [id number],S, Asim Ramada ramila GONZALEZ [id number],B, Asim Ramada n [id number],B, Asim Ramada n NM [id number],W, Asim Ramada n [id number],B, Asim Ramada n [place] [id number],B, Asim Ramada n [id number],S, Asim Ramada n [id number],S, Asim Ramada n NM [id number],S, Asim Ramada n [place] [id number],S, Asim Ramada n [id number],S, Asim Ramada n [id number],S, Asim Ramada n [id number],B, Asim Ramada n [id number],S, Asim Ramada n [id number],S, Asim Roberto mcgrath MD [id number],S, Asim Roberto mcgrath MD [id number],S, Asim Roberto mcgrath MD [id number],B, Asim mcgrath MD [id number],S, Asim Roberto mcgrath MD [id number],S, Asim mcgrath MD [id number],B, Asim mcgrath MD [id number],S, Asim mcgrath MD [id number],B, Asim mcgrath MD [id number],S, Asim mcgrath MD [id number],B, Asim mcgrath MD [id number],S, Asim mcgrath MD [id number],S, Long Ferrell MD [id number],S, Long Ferrell MD [id number],C,W Ill recheck his venous studies and give [...] have a negative impact on your treatment. Eddie manrique monitor your blood pressure and heart rate [...] Palpitations, Dizziness, or Edema. Nelly Landers Cardiology:Will give him some ab x Asim Carlos MD Cardiology:weight loss encourage d Asim Carlos MD Cardiology: H is updated medication list for this problem includes: Jardiance 25 Mg Tablet (Empagliflozin) ..... Take 1 tablet by mouth daily Glimepiride 1 Mg Tablet (Glimepiride) ..... Take 2 tablets by mouth twice daily as directed Enalapril Maleate 5 Mg Tablet (Enalapril maleate) ..... Take 1 tablet by mouth every day Aspirin 81 Mg Tablet,chewable (Aspirin) ..... Chew and swallow 1 tablet by mouth every day Pioglitazone 30 Mg Tablet (Pioglitazone) ..... Once a day Asim Carlos MD Cardiology:on statin H is updated medication list for this problem includes: Rosuvastatin 40 Mg Tablet (Rosuvastatin) ..... Take 1 tablet by mouth every night at bedtime Fenofibrate 160 Mg Tablet (Fenofibrate) ..... Take 1 tablet by mouth once a day Atorvastatin 20 Mg Tablet (Atorvastatin) ..... 1 tablet once a day Asim Carlos MD Cardiology:BP contro lled at 115/74 H is updated medication list for this problem includes: Enalapril Maleate 5 Mg Tablet (Enalapril maleate) ..... Take 1 tablet by mouth every day Aspirin 81 Mg Tablet,chewable (Aspirin) ..... Chew and swallow 1 tablet by mouth every day Asim Carlos MD Cardiology:Recurrent with multiple hospital visit H is ILR interrogated today and showed no arrythmias or heart block/bradycardia. S eems like this was more psychological/stress related H e had echo that showed p revious negative carotid duplex m ay benefit from neuro consult Asim Carlos MD Cardiology:Per PCP H is updated medication list for this problem includes: Glimepiride 1 Mg Tablet (Glimepiride) ..... Take 2 tablets by mouth twice daily as directed Enalapril Maleate 5 Mg Tablet (Enalapril maleate) ..... Take 1 tablet by mouth every day Aspirin 81 Mg Tablet,chewable (Aspirin) ..... Chew and swallow 1 tablet by mouth every day Jardiance 25 Mg Tablet (Empagliflozin) ..... Take 1 tablet by mouth once a day Pioglitazone 30 Mg Tablet (Pioglitazone) ..... Once a day Mary Gutierrez NP Cardiology:Normal co ronaries on cath 2023, check echo. H is updated medication list for this problem includes: Enalapril Maleate 5 Mg Tablet (Enalapril maleate) ..... Take 1 tablet by mouth every day Aspirin 81 Mg Tablet,chewable (Aspirin) ..... Chew and swallow 1 tablet by mouth every day Mary Gutierrez NP Cardiology:Stable H is updated medication list for this problem includes: Enalapril Maleate 5 Mg Tablet (Enalapril maleate) ..... Take 1 tablet by mouth every day Aspirin 81 Mg Tablet,chewable (Aspirin) ..... Chew and swallow 1 tablet by mouth every day Mary Gutierrez NP Cardiology:Loop christiano rder with no arrhythmias H is updated medication list for this problem includes: Enalapril Maleate 5 Mg Tablet (Enalapril maleate) ..... Take 1 tablet by mouth every day Aspirin 81 Mg Tablet,chewable (Aspirin) ..... Chew and swallow 1 tablet by mouth every day Mary Gutierrez NP Cardiology:Patient q ualifies for [facility] (this is the 'procedure' mentioned on last visit) and is scheduled for research visit with transportation on 08/18/2024 at 10am. H is updated medication list for this problem includes: Rosuvastatin 40 Mg Tablet (Rosuvastatin) ..... Take 1 tablet by mouth every night at bedtime Fenofibrate 160 Mg Tablet (Fenofibrate) ..... Take 1 tablet by mouth once a day Atorvastatin 20 Mg Tablet (Atorvastatin) ..... 1 tablet once a day Mary Gutierrez NP Cardiology:Will check Echo to ev aluate his [...] Take 1 tablet by mouth every day Osei Walker Cardiology:He is see ing Neurology and I advised him to follow up for his events of unresponsiveness, possibly seizure related. Osei Walker Cardiology:Cath 07/13 reveals No angiographically identifiable coronary artery disease. Osei Walker Cardiology: H is updated medication list [...] Mg Tablet (Pioglitazone) ..... Once a day Osei Johnroyce Cardiology: H is updated medication list for this problem includes: Aspirin 81 Mg Tablet,chewable (Aspirin) ..... Chew and swallow 1 tablet by mouth every day Jardiance 25 Mg Tablet (Empagliflozin) ..... Take 1 tablet by mouth once a day Enalapril Maleate 5 Mg Tablet (Enalapril maleate) ..... Take 1 tablet by mouth every day Pioglitazone 30 Mg Tablet (Pioglitazone) ..... Once a day [facility] Cardiology:weight loss encourage d [facility] Cardiology: H is updated medication list for this problem includes: Rosuvastatin 40 Mg Tablet (Rosuvastatin) ..... Take 1 tablet by mouth every night at bedtime Fenofibrate 160 Mg Tablet (Fenofibrate) ..... Take 1 tablet by mouth once a day Atorvastatin 20 Mg Tablet (Atorvastatin) ..... 1 tablet once a day [facility] Cardiology:BP low. I t was 102/60 sitting [...] Take 1 tablet by mouth every day [facility] Cardiology:May be r/ t polypharmacy and hypotension [...] Take 1 tablet by mouth every day Juhi Mira PERSONNEL SUPERVISOR Cardiology Asim Carlos MD Cardiology Asim Carlos [...] Carlos MD Cardiology Asim Carlos MD Cardiology:Normal AIF Asim ramirez MD Cardiology Asim Carlos MD Cardiology Asim Carlos MD Cardiology Asim Carlos MD Cardiology Asim Carlos MD Cardiology Asim Carlos MD Cardiology Asim Carlos MD Cardiology Asim Carlos MD Electrophysiology: R ecent device check showed [...] Electrophysiology:Tonny major reports yesterday he was at [facility] and he started to experience significant shortness [...] 27.0 (05/26/2015) T.0 (05/26/2015) Osei Walker Electrophysiology:Tonny major did not have LOC with his episode of shortness of breath but became very weak and had to lie down on the floor. Osei Walker Electrophysiology:Tonny major reports yesterday he was at [facility] and he started to experience significant shortness [...] the stress results. Osei Walker Cardiology Asim Ramadan Cardiology Asim Ramadan Cardiology Asim Ramadan Cardiology Asim Ramadan Cardiology Asim Ramadan Cardiology Asim Ramadan Cardiology Asim Ramadan Cardiology Asim Ramadan Cardiology Asim Ramadan Cardiology Asim Ramadan Cardiology Asim Ramadan Cardiology Asim Ramadan Cardiology Asim Ramadan Cardiology Asim Ramadan Cardiology Asim Ramadan Cardiology Asmi Ramadan Cardiology Asim Ramadan Cardiology Asim Ramadan Cardiology Asim Ramadan Cardiology Asim Ramadan Cardiology Asim Ramadan Cardiology Asim Ramadan Cardiology Asim Carlos MD Cardiology Asim Carlos [...] Asim Carlos MD Cardiology:Refer to pulmonary Ra willis Carlos MD Cardiology:Work up negative for cardiac etiology. Asim [...] Breanna GONZALEZ Cardiology Asim Carlos MD Cardiology Asim Carlos [...] Asim Carlos MD Cardiology Asim Breanna GONZALEZ Cardiology Asim Breanna GONZALEZ Cardiology Asim Breanna GONZALEZ Cardiology Asim Breanna GONZALEZ Cardiology Asim Breanna GONZALEZ Cardiology Asim Breanna GONZALEZ Cardiology Asim Carlos MD Cardiology Asim Carlos MD Cardiology Asim Carlos MD Cardiology Asim Breanna GONZALEZ Cardiology Asim Kavinadaramila GONZALEZ Cardiology -ltr fxd: BP today: 143/90 P rior BP: 158/97 (07/04/2016) Sahileddie Beck MD Cardiology -ltr fxd: ceap 4b on exam, Lt>Rt H e was recommended to try compression stockings for his venous reflux, but he did not try these yet. D iscussed conservative measures including thigh high 20-30mmHg compression stockings, leg elevation, and ambulation Sahileddie Beck MD Cardiology -ltr fxd: ceap 4b [...] Asim Breanna GONZALEZ Cardiology Asim Breanna GONZALEZ Cardiology: He c/o b ilateral calf pains [...] 20-30mmHg compresion stockings Linda Singletary RN Cardiology:Dennis lindo is here for evaluation of leg [...] Cardiology:So far ILR shows no e tiology Asim Carlos MD Cardiology Asim Carlos MD Cardiology Asim Carlos MD Cardiology Asim Carlos MD Cardiology Asim Carlos MD Cardiology:Normal ABIs and malika l AIF Asim Carlos MD Cardiology Asim Carlos MD Cardiology Asim Carlos MD Cardiology Asimcheikh Carlos MD Cardiology Asimcheikh Carlos MD Cardiology Asim Breanna GONZALEZ Cardiology Asim Breanna GONZALEZ Cardiology Maggie Grimes MD Cardiology Maggie Grimes MD Cardiology Maggie Grimes MD Cardiology Maggie Grimes MD Cardiology Asim Carlos MD Cardiology Asim Carlos MD Cardiology Asim Carlos MD Cardiology Asimcheikh Carlos MD Cardiology Asim Breanna GONZALEZ Cardiology:neg deant di, had trouplbe with tele, will loop, ? arrymia vs sz Siddharth Sheffield MD Cardiology:Summary 1 . Normal myocardial [...] is 21.9. Siddharth Sheffield MD Cardiology Mary Gutierrez N P Cardiology:BP 120/84 Mary Reed brittny 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 TECHNICIAN Cardiology:Was unabl e to wear event monitor due to device malfunction. Patient did not wish to wear event monitor again. Will let us know if he has any further syncopal episodes and will wear event monitor at that time. Mary Morsetristin JAY Cardiology:Normal st ress test (10/14/2014) Will repeat echo as last echo was in 2008. Mary Matt JAY test results: H is updated medication list [...] of myocardial ischemia or scar. GC (06/03/2009) E chocardiogram: Normal left ventricular systolic [...] Successful closure of the right groin using 6-Syrian Angio-Seal closure device. (07/17/2005) Long Ferrell MD [...] Successful closure of the right groin using 6-Syrian Angio-Seal closure device. (07/17/2005) C arotid Doppler/Duplex: Normal carotid study [facility] (05/24/2009) H gb: 13.8 (06/14/2009) HCT: 40.7 [...] Successful closure of the right groin using 6-Syrian Angio-Seal closure device. (07/17/2005) Long Ferrell MD [...] Successful closure of the right groin using 6-Syrian Angio-Seal closure device. (07/17/2005) E chocardiogram: Normal [...] Successful closure of the right groin using 6-Syrian Angio-Seal closure device. (07/17/2005) Long Ferrell MD [...] Successful closure of the right groin using 6-Syrian Angio-Seal closure device. (07/17/2005) Long Ferrell MD [...] 75 Mg Caps (Pregabalin) Orders: E KG ([id number]) p er dr cassidy Ferrell MD lightheaded: [...] CT Abdomen/pelvis wi thout contrast DLCO - 81771 FRC - 92208 FVC - 69922 Stress Regadenoson Complete Echo Venous Doppler Bilat [...] Procedure Name Provider Procedure Notes S tatus Complex e/m visit ad d on Asim Carlos MD completed EKG Asim Carlos MD complete d EKG Kris montano MD completed EKG Asim Carlos MD complete d EKG Asim Carlos MD complete d EKG Asim Carlos MD complete d Regadenoson, 4 units Asim Carlos MD completed Cardiolite, 2 units Asim Carlos MD completed SPECT Images Maggie Grimes MD complet ed Stress EKG Siddharth Sheffield MD complete d FVC / MVV - 31621 Asim Carlos MD c ompleted FRC - 93371 Asim Carlos MD complet ed SpO2 w/o 6min walk/titration Asim Carlos MD completed DLCO - 01300 Asim Carlos MD comple daron EKG Asim [...] REMOTE </30 D TECH REVIEW completed SNOMED-CT: 672623668832657 Current Medications Documented Asim Carlos MD completed [...] REMOTE </30 D TECH REVIEW completed SNOMED-CT: 354576618419327 Current Medications Documented Sahil Beck MD completed Loop Recorder Interrogation, Remote Asim Carlos MD INTERROGATION EVALUATION REMOTE </30 D ILR SYS completed ICM Interrogation, Remote (Tech) Asim Carlos MD INTERROGATION EVAL REMOTE </30 D TECH REVIEW completed SNOMED-CT: 140928245217160 Current Medications Documented Sahil Beck MD completed Loop Recorder Interrogation, Remote Asim Carlos MD INTERROGATION EVALUATION REMOTE </30 D ILR SYS completed ICM Interrogation, Remote (Tech) Asim Carlos MD INTERROGATION EVAL REMOTE </30 D TECH REVIEW completed EKG Asim Carlos MD complete d SNOMED-CT: 370488757047400 Current Medications Documented Asim Carlos MD completed [...] REMOTE </30 D TECH REVIEW completed SNOMED-CT: 018629728 Smoking Cessation Counseling Sahil Beck MD completed SNOMED-CT: 411949097853383 Current Medications Documented Sahil Beck MD completed [...] REMOTE </30 D TECH REVIEW completed SNOMED-CT: 961047811203957 Current Medications Documented Asim Carlos MD completed SNOMED-CT: 717122193689310 Current Medications Documented Asim Carlos MD completed [...] REMOTE </30 D TECH REVIEW completed SNOMED-CT: 152578611691554 Current Medications Documented Asim Carlos MD completed Loop Recorder Interrogation, Remote Asim Carlos MD INTERROGATION EVALUATION REMOTE </30 D ILR SYS completed ICM Interrogation, Remote (Tech) Asim Carlos MD INTERROGATION EVAL REMOTE </30 D TECH REVIEW completed SNOMED-CT: 25240763 Physical Exam, Performed: Pulse Exam of Foot Maggie Grimes MD completed EKG Maggie Grimes MD completed SNOMED-CT: 033039364991686 Current Medications Documented Maggie Grimes MD completed Loop Recorder Interrogation, Remote Asim Carlos MD INTERROGATION EVALUATION REMOTE </30 D ILR SYS completed ICM Interrogation, Remote (Tech) Asim Carlos MD INTERROGATION EVAL REMOTE </30 D TECH REVIEW completed SNOMED-CT: 229643424922131 Current Medications Documented Asim Carlos MD completed SNOMED-CT: 775575882524135 Current Medications Documented Long Ferrell MD completed EKG Long Ferrell MD completed EKG Long Ferrell MD completed
--- OUTSIDE RECORDS SUMMARY | 2024-08-08 11:20 | XMS_ITS | Clinical Summary ---
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 Active montelukast (SINGULAIR) 10 mg [...] CAPSULE 0 Active cyanocobalamin/ folic acid (vitamin C39-qtifo acid) 2,500-400 mcg tablet,disinteg rating 0 Active [...] Diagnosed Date Resolved Date Asthma 06/05/2019 11/02/2023 Encounters Date Type Department Care Team Description 08/07/2024 Telephone [facility] Epilepsy [address] [facility] [address] [place] [address] [place] [address] Clifton Jose MD PhD from Last 3 Months Immunizations Immunization Administration Dates Next Due Influenza, Quadrivalent, Spl it, Preservative Free, Intramuscular 06/06/2019 Influenza, Unspecified 02/12/2020 Surgical History Surgery Date Site/Laterality Comments [place] CRANIOTOMY SELECTIVE AMYGDALOHIPPOCAMPECTOMY Craniotomy For Amygdalohippocampectomy - (Added by TW Conv) CARDIAC PACEMAKER PLACEMENT Pacemaker Placement - (Added by TW Conv) LOOP ELECTROSURGICAL EXCISIO N PROCEDURE 07/12/2023 [facility] heart [facility] Medical History Medical History [...] on file 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 [employer] Gender Identity Not on file Sexual Orientation [...] Pneumococcal vaccine <65 (2 of 2 - PPSV23) 04/23/2015 02/26/2015, 02/06/2013, 01/12/2013 eGFR 02/15/2023 02/15/2022, 06/15, 08/29/2020, Additional history exists Influenza Vaccine (#1) [...] 7 AM CDT 02/15/2022 11:35 AM CDT Clifton Jose MD PhD LAB BLOOD ORDERABLES Adeline miller Result Performing Organization Address City/State/[facility] Co de Phone Number [facility] Department [place] [address] from Last 3 Months or Most Recently Relevant to Health Maintenance Insurance [facility] MEDICARE ADVANTAGE [employer] [facility] MEDICARE ADVANTAGE [facility] MEDIC[facility] ADVANTAGE IDPA Advance Directives For more information, please contact: [phone] * Full Code (Latest Code Status on File) Date Activated Date Inactivated Comments 08/17/2021 7:34 AM 08/19/2021 10:29 PM * Full Code Date Activated Date Inactivated Comments 07/20/2020 10:14 AM 07/26/2020 7:25 PM * Full Code Date Activated Date Inactivated Comments 06/06/2019 2:57 AM 06/08/2019 2:23 AM Care Teams Corporate Coordinator Relationship Specialty Start Date End Date Sergey Wilson MD PCP - General 09/20/16
--- OUTSIDE RECORDS SUMMARY | 2024-08-08 11:20 | XMS_ITS | Data Portability ---
Author Organization [facility] [employer], Main Office Address [address] [place] [address] Care Team Providers Care Service Girl Name Role Phone MINA WILSON Primary Care Provider MINA WILSON Referring Provider Assessment Encounter Date Assessment Date Assessment LastModified by Organization Details LastModified Time 03/20/2023 03/20/2023 Amoxicillin goals for weight LDL A1c blood pressure been discussed follow-up 4 months [email or web address] Not available 03/23/2023 18:18:21 04/17/2023 04/17/2023 Continue current therapy follow-up 4 months [email or web address] Not available 04/21/2023 11:21:19 Plan of Treatment [...] 875 mg tablet 2022 023 [email or web address] [id number], [address] [place] [address], [phone], 04/17/2023 11:50:15 Patient TargetsNo targets recorded. Patient InstructionsNo instructions recorded. Reason for Referral None Reported. Results Created Date Observation Date Name Description Value Unit Range Abnormal Flag Note LastModifiedBy Organization Detail LastModifiedTime 04/17/20 24 04/17/2024 HEMOG LOBIN A1C HA1C 6.8 % 4.0-6. 0 high Diabe ingrid Scree thuy Crite shaggy: <5.7% Consi stent with absen ce of diabe ingrid 5.7-6 .4% Consi stent with incre ased risk for diabe ingrid (pred iabet es) >OR=6 .5% Consi stent with diabe ingrid REFER ENCE: Diabe ingrid Care 2015, 39(Michael ppl.1 ):s13 -s22 Not Available [facility] (Lab) [address] [place], [address], 04/17/2024 14:15:39 04/17/20 24 04/17/2024 COMPR EHENS JOHN METAB OLIC PANEL sodium 140 mmol/ L 137-14 5 Not Available [facility] (Lab) [address] [place], [address], 04/17/2024 14:23:40 04/17/20 24 04/17/2024 COMPR EHENS JOHN METAB OLIC PANEL potassium 4.4 mmol/ L 3.5-5. 1 Not Available [facility] (Lab) [address] [place], [address], 04/17/2024 14:23:40 04/17/20 24 04/17/2024 COMPR EHENS JOHN METAB OLIC PANEL chloride 113 mmol/ L 98-107 high Not Available [facility] (Lab) [address] [place], [address], 04/17/2024 14:23:40 04/17/20 24 04/17/2024 COMPR EHENS JOHN METAB OLIC PANEL carbon dioxide 21 mmol/ L 22-30 low Not Available [facility] (Lab) [address] [place], [address], 04/17/2024 14:23:40 04/17/20 24 04/17/2024 COMPR EHENS JOHN METAB OLIC PANEL anion gap 10.4 mmol/ L 14-22 low Not Available [facility] (Lab) [address] [place], [address], 04/17/2024 14:23:40 04/17/20 24 04/17/2024 COMPR EHENS JOHN METAB OLIC PANEL glucose 156 mg/dL 70-99 high Not Available [facility] (Lab) [address] [place], [address], 04/17/2024 14:23:40 04/17/20 24 04/17/2024 COMPR EHENS JOHN METAB OLIC PANEL BUN 25 mg/dL 8-19 high Not Available [facility] (Lab) [address] [place], [address], 04/17/2024 14:23:40 04/17/20 24 04/17/2024 COMPR EHENS JOHN METAB OLIC PANEL creatinine 0.89 mg/dL 0.66-1 .25 Not Available [facility] (Lab) [address] [place], [address], 04/17/2024 14:23:40 04/17/20 24 04/17/2024 COMPR EHENS JOHN METAB OLIC PANEL GFR >60 Refer ence Range : [place] ge GFR Healt hy Adult : >60 mL/mi n/1.7 3 m2 Chron ic Kidne y Disea se: 15-60 mL/mi n/1.7 3 m2 Kidne y Failu re: <15/m L/min /1.73 m2 www.n iddk. nih.g ov The MDRD study equat ion has not been valid ated in child jose <18 years of age; pregn ant women ; the elder ly >85 years of age; or in some racia l or ethni c subgr oups, such as Hisak nics. Outsi de the valid ated estrella eters , estim ated GFR is less accur ate, requi ring clini ángela judgm ent on a case- by-ca se basis . Clini ángela inter preta tion for other races and ages must be made by the clini galina. The MDRD study equat ion has not been valid ated for the evalu ation of serum creat inine relat ed to nutri raisa l statu s or medic ation usage . For perso ns <18 years of age, a pedia tric GFR calcu lator is avail able on the NKF websi te: https ://froy vega.comfort mcgovern.o marco/pr jimmyess ional s/kdo qi/gf r_cal culat or Not Available [facility] (Lab) [address] [place], [address], 04/17/2024 14:23:40 04/17/20 24 04/17/2024 COMPR EHENS JOHN METAB OLIC PANEL alkaline phosphatase 101 U/L 38-[address] [facility] (Lab) [address] [place], [address], 04/17/2024 14:23:40 04/17/20 24 04/17/2024 COMPR EHENS JOHN METAB OLIC PANEL alanine aminotransfe rase 34 U/L 0-50 Not Available [facility] (Lab) [address] [place], [address], 04/17/2024 14:23:40 04/17/20 24 04/17/2024 COMPR EHENS JOHN METAB OLIC PANEL aspartate aminotransfe rase 56 U/L 15-46 high Not Available [facility] (Lab) [address] [place], [address], 04/17/2024 14:23:40 04/17/20 24 04/17/2024 COMPR EHENS JOHN METAB OLIC PANEL bilirubin, total 0.80 mg/dL 0.20-1 .30 Not Available [facility] (Lab) [address] [place], [address], 04/17/2024 14:23:40 04/17/20 24 04/17/2024 COMPR EHENS JOHN METAB OLIC PANEL calcium 9.4 mg/dL 8.4-10 .2 Not Available [facility] (Lab) [address] [place], [address], 04/17/2024 14:23:40 04/17/20 24 04/17/2024 COMPR EHENS JOHN METAB OLIC PANEL total protein 6.8 g/dL 6.3-8. 2 Not Available [facility] (Lab) [address] [place], [address], 04/17/2024 14:23:40 04/17/20 24 04/17/2024 COMPR EHENS JOHN METAB OLIC PANEL albumin 4.1 g/dL 3.4-5. 0 Not Available [facility] (Lab) [address] [place], [address], 04/17/2024 14:23:40 04/17/20 24 04/17/2024 COMPR EHENS JOHN METAB OLIC PANEL globulin 2.7 g/dL 2.6-4. 2 Not Available [facility] (Lab) [address] [place], [address], 04/17/2024 14:23:40 04/17/20 24 04/17/2024 COMPR EHENS JOHN METAB OLIC PANEL A/G ratio 1.5 ratio 1.0-2. 0 Not Available [facility] (Lab) [address] [place], [address], 04/17/2024 14:23:40 04/17/20 24 04/17/2024 LIPID PANEL cholesterol 125 mg/dL 140-19 9 low NIH SAMANTHA NSUS RECOM MENDA TION FOR HEMANTH STERO L: ADULT CHILD LOW RISK: <200 <170 BORDE RLINE : <200- 239 ----- HIGH RISK: >240 >200 Not Available [facility] (Lab) [address] [place], [address], 04/17/2024 14:23:45 04/17/20 24 04/17/2024 LIPID PANEL triglyceride s 343 mg/dL 0-150 high NIH SAMANTHA NSUS REPOR T RECOM MENDA TION FOR TRIGL YCERI DEYSI: ADULT CHILD LOW RISK: <150 ----- BODER LINE: 150-1 99 ----- HIGH RISK: >200 ----- Not Available [facility] (Lab) [address] [place], [address], 04/17/2024 14:23:45 04/17/20 24 04/17/2024 LIPID PANEL HDL cholesterol 12 mg/dL 40- low Not Available [facility] (Lab) [address] [place], [address], 04/17/2024 14:23:45 04/17/20 24 04/17/2024 LIPID PANEL LDL cholesterol, calculated 44 mg/dL 0-130 NIH SAMANTHA NSUS REPOR T RECOM MENDA TIONS FOR LDL: ADULT CHILD LOW RISK <130 <110 (OPTI MAL LDL) <100 ----- BORDE RLINE : 130-1 59 ----- HIGH RISK: >160 >130 A TRIGL YCERI DE RESUL T >400 INVAL IDATE S THE CALCU LATIO N FOR LDL FRACT IONAT ION - THE LDL RESUL T WILL NOT BE REPOR YUE. Not Available [facility] (Lab) [address] [place], [address], 04/17/2024 14:23:45 04/17/20 24 04/17/2024 PSA SCREE N PSA medicare screen 0.16 NG/mL 0.00-4 .00 Not Available [facility] (Lab) [address] [place], [address], 04/17/2024 14:43:21 04/13/20 23 04/13/2023 XR, chest No observ ation record ed. [address] [address], [place], [address], 04/14/2023 08:12:21 07/20/19 24 07/20/2023 XR, chest No observ ation record ed. [email or web address] [address], [place], [address], 08/23/2023 14:10:21 03/11/20 24 03/11/2024 XR, thumb [facility] [address], [place] [address] Patien t Name: REJI BRANCH ion #: [id number] Sex: M : 1964 7 Dictat [...] 2023 13:36: 40 PM Page 1 [email or web address] [facility] ([facility]) [address] [place], [address], 03/12/2024 08:24:13 Result Notes None recorded. Problems Name Problem SNOMED Code Status Onset Date Resolution Date Notes Provider Name and Address Organization Details Recorded Time Inguinal pain 617856148 Active 2017 Not Available [employer] 3 09:29:02 Renewal of prescript ion Active 2021 Not Available [facility] 3 09:29:02 Pain in lower limb 63190777 Active Not Available [facility] 3 09:29:02 Celluliti s of right foot 52897718527 056622 Active 2020 Not Available [facility] 3 09:29:02 Rectal hemorrhag e 55694302 Active Not Available [facility] 3 09:29:02 Mixed hyperchol esterolem ia and hypertrig lyceridem ia 757653039 Active 2019 Not Available [facility] 3 09:29:02 Hyperchol esterolem ia 25643206 Active Not Available [facility] 3 09:29:02 Chronic obstructi ve pulmonary disease 15088099 Active 2020 Not Available [facility] 3 09:29:02 Constipat ion 23419945 Active Not Available [facility] 3 09:29:02 Liver enzymes outside reference range 434968958 Active Not Available [facility] 3 09:29:02 Pain in finger 21705895 Active 2017 Not Available [facility] 3 09:29:02 Asthma 450244901 Active Not Available [facility] 3 09:29:02 Wrist joint pain 450553707 Active Not Available [facility] 3 09:29:02 Open wound of knee and/or leg and/or ankle Completed Not Available [facility] 3 01:04:41 Pain 29302924 Active Not Available [facility] 3 09:29:02 Syncope 544453660 Active 2020 Not Available [facility] 3 09:29:03 Vascular disorder 64223100 Active 2020 Not Available [facility] 3 09:29:03 Rib pain 662898488 Active 2021 Not Available [facility] 3 09:29:03 Pain in right foot 58917858857 9107 Active 2020 Not Available [facility] 3 09:29:03 Vitamin D deficienc y 79508724 Active Not Available [facility] 3 09:29:03 Sinusitis 51767336 Active 2021 Not Available [facility] 3 09:29:03 Dizziness 513344497 Active 2021 Not Available [facility] 3 09:29:03 Hypothyro idism 41225868 Active Not Available [facility] 3 09:29:03 Bunion 907467754 Active 2021 Not Available [facility] 3 09:29:03 Altered mental status 198555830 Active Not Available [facility] 3 09:29:03 Diabetic periphera l neuropath y 054789087 Active 2021 Not Available [facility] 3 09:29:03 Type 2 diabetes mellitus 45909557 Active 2018 Not Available [facility] 3 09:29:03 Uncontrol led type 2 diabetes mellitus 827658438 Active 2022 Not Available [facility] 3 09:29:03 Shoulder pain 98087049 Completed Not Available [facility] 3 01:04:42 Contusion of lower leg 92503131 Completed Not Available [facility] 3 01:04:42 [place] of toe 81339341 Active 2021 Not Available [facility] 3 09:29:03 Atelectas is 83441467 Active 2021 Not Available [facility] 3 09:29:03 Respirato ry crackles 85914834 Active 2022 Not Available [facility] 3 09:29:03 Hip pain 06079983 Completed Not Available [facility] 3 01:04:43 Hip pain 86242617 Active 2020 Not Available [facility] 3 09:29:03 Upper respirato ry infection 88985287 Active 2022 Not Available [facility] 3 09:29:03 Acute upper respirato ry infection 17576079 Active 2021 Not Available [facility] 3 09:29:03 Essential hypertens ion 06466279 Active Not Available [facility] 3 09:29:03 Dyspnea on exertion 28603763 Active 2019 Not Available [facility] 3 09:29:03 Chronic cough 07671855 Active 2021 Not Available [facility] 3 09:29:03 Venous stasis 93667168 Active Not Available [facility] 3 09:29:03 Diabetes mellitus 04150534 Active Not Available [facility] 3 09:29:03 Pain in elbow 76871534 Active Not Available [facility] 3 09:29:03 Rectal pain 45091880 Completed Not Available [facility] 3 01:04:44 Obstructi ve sleep apnea syndrome 71338024 Active Not Available [facility] 3 09:29:03 Epigastri c pain 49928164 Active 2021 Not Available [facility] 3 09:29:03 Ex-smoker 5281567 Active 2019 Not Available [facility] 3 09:29:03 Pain in limb 33222431 Completed Not Available [facility] 3 01:04:45 Seizure 86250653 Active Not Available [facility] 3 09:29:03 Contusion of lower limb 21049259 Completed Not Available [facility] 3 01:04:45 Mixed hyperlipi demia 488189758 Active 2022 Not Available [facility] 3 09:29:02 Pain of left hip joint 79589576693 9100 Active 2022 Not Available [facility] 3 09:29:03 Well controlle d type 2 diabetes mellitus 928767670 Active 2022 Not Available [facility] 3 09:29:03 Low back pain 114757203 Active 2022 Not Available [facility] 3 09:29:03 Bunion 566340708 Active 2022 Turner Johnson DPM [address], [place], [address] , [employer] [facility] 3 14:04:41 Notes:[facility] diagnostic sleep study 01/04/23 AHI = [...] Name and Address Organization Details Recorded Time 06/03/19 25 Nail Debridement completed Turner Johnson DPM [address], [address], [place], [address], [place] [employer] 06/03/2024 13:37:22 03/17/20 19 Cardiovascular Surgery completed Not Available [facility] 07/12/2022 00:57:11 06/29/19 17 Exc [id number] 1.1-2 completed Not Available [facility] 07/12/2022 00:57:11 01/22/20 15 Colonoscopy with biopsy completed Not Available [facility] 07/12/2022 00:57:11 04/26/20 14 Brain Surgery completed Not Available [facility] 07/12/2022 00:57:11 11/19/19 13 other completed Not Available [facility] 07/12/2022 00:57:11 Excisions - Specify completed Not Available [facility] 07/12/2022 00:57:11 Imaging Results Imaging Date Name Status LastModified by Organiz ation Details LastModified Time 04/13/2023 XR, chest completed [facility] [address] [facility] [address] [place] [address], [address], 04/14/2023 08:12:21 07/20/2023 [email or web address] [address] [facility] [address] [place] [address], [address], 08/23/2023 14:10:21 03/11/2024 XR, thumb completed [email or web address] [facility] (Imaging) [address] [place], [address], 03/12/2024 08:24:13 Procedure Notes None recorded. Medical Equipment None Reported. Allergies Allergen ID Allergen Name Allergen Category Reaction Reaction Severity Criticality Documentation Date Start Date Code Code System Note Provider Name and Address Organization Details Recorded Time 70431 phenobarb ital medicatio n Not available Not available Not available 07/19/2022 8134 RxNorm Arleth johnson [facility] [employer] 10:49:17 Medications Name Sig Start Date Stop Date Status Note LastModified by Organization Details LastModified Time Miralax 17 gram oral powder packet Take 1 packet every day by oral route. 01/25 completed Not Available Not Available Not Available cyclobenzap rine 10 mg tablet TAKE 1 TABLET BY MOUTH TWICE DAILY NEEDED active Not Available Not Available No t Available amoxicillin 500 mg capsule TAKE 1 CAPSULE BY MOUTH THREE TIMES DAILY FOR 7 DAYS active Not Available Not Available No t Available furosemide 40 mg tablet TAKE 1 TABLET BY MOUTH EVERY DAY active Not Available Not Available No t Available atorvastati n 40 mg tablet Take 1 tablet every day by oral route at bedtime for 30 days. 04/27 completed Not Available Not Available Not Available metformin 500 mg tablet TK 1 T PO BID WF 04/27 completed Not Available Not Available Not Available prednisone 10 mg tablet 30mg x 2 days, 20mg x 2 days, 10mg x 2 days active Not Available Not Available No t Available doxycycline hyclate 100 mg capsule TAKE 1 CAPSULE BY MOUTH TWICE DAILY FOR 7 DAYS active Not Available Not Available No t Available atorvastati n 20 mg tablet TK 1 T PO D 04/26 completed Not Available Not Available Not Available enalapril maleate 10 mg tablet TK 1 T PO QAM 09/16 completed Not Available Not Available Not Available albuterol sulfate 2.5 mg/3 mL (0.083 %) solution for nebulizatio n Inhale 3 mL 3 times a day by nebulizat ion route before meals for 90 days. 06/16 completed Not Available Not Available Not Available citalopram 40 mg tablet TAKE 1 TABLET BY MOUTH EVERY MORNING active Not Available Not Available No t Available divalproex 250 mg tablet,britany yed release TK 4 TS PO Q 12 H 04/27 completed Not Available Not Available Not Available enalapril maleate 5 mg tablet TAKE 1 TABLET BY MOUTH EVERY DAY active Not Available Not Available No t Available atorvastati n 10 mg tablet TAKE 1 TABLETS BY MOUTH EVERY DAY 09/10 completed Not Available Not Available Not Available azithromyci n 250 mg tablet Take 1 dose pk by oral route as directed. active Not Available Not Available No t Available ibuprofen 800 mg tablet TAKE 1 TABLET BY MOUTH Twice DAILY NEEDED FOR PAIN active Not Available Not Available No t Available metoprolol tartrate 100 mg tablet active Not Available Not Available Not Available clorazepate dipotassium 3.75 mg tablet TK 1 T PO QPM 02/02 completed Not Available Not Available Not Available cephalexin 250 mg capsule TK ONE C PO Q 8 H FOR 10 DAYS 02/02 completed Not Available Not Available Not Available hydrocodone 5 mg-acetamin ophen 325 mg tablet TAKE ONE TO TWO TS PO Q 4-6 H PRN 04/27 completed Not Available Not Available Not Available flurbiprofe n 0.03 % eye drops active Not Available Not Available No t Available Q-Dryl 25 mg capsule active Not Available Not Available N ot Available enalapril 5 mg-hydrochl orothiazide 12.5 mg tablet Take 1 tablet every day by oral route. 09/04 completed Not Available Not Available Not Available ondansetron HCl 4 mg tablet TAKE 1 TABLET BY MOUTH UP TO THREE TIMES DAILY NEEDED FOR NAUSEA OR VOMITING active Not Available Not Available No t Available prednisone 20 mg tablet TAKE 2 TABLETS BY MOUTH EVERY DAY FOR 5 DAYS active Not Available Not Available No t Available Doc-Q-Lace 100 mg capsule TK ONE C PO Q 12 H active Not Available Not Available No t Available clonazepam 1 mg tablet TK 1 T PO BID PRN FOR ANXIETY 02/02 completed Not Available Not Available Not Available acetazolami de 250 mg tablet TK 1 T PO BID 02/02 completed Not Available Not Available Not Available clindamycin HCl 150 mg capsule TK ONE C PO QID 02/02 completed Not Available Not Available Not Available Accu-Chek Softclix Lancets USE TO TEST D UTD 06/08 completed Not Available Not Available Not Available diphenoxyla te-atropine 2.5 mg-0.025 mg tablet TAKE 1 TABLET BY MOUTH THREE TIMES DAILY FOR 3 DAYS NEEDED FOR DIARRHEA 06/28 completed Not Available Not Available Not Available meclizine 12.5 mg tablet TAKE 1 TABLET BY MOUTH THREE TIMES DAILY NEEDED FOR DIZZINESS active Not Available Not Available No t Available triamcinolo ne acetonide 0.5 % topical ointment active Not Available Not Available Not Available acetaminoph en 300 mg-codeine 30 mg tablet TAKE 1 TABLET BY MOUTH THREE TIMES DAILY NEEDED MUST LAST 21 DAYS active Not Available Not Available No t Available bacitracin zinc 500 unit/gram topical ointment APPLY AA OF SKIN TID active Not Available Not Available No t Available divalproex 500 mg tablet,britany yed release TAKE 1000MG in AM and 500MG in PM active Not Available Not Available No t Available ciprofloxac in 500 mg tablet TK 1 T PO BID FOR 10 DAYS 02/02 completed Not Available Not Available Not Available sulfamethox azole 800 mg-trimetho prim 160 mg tablet TK 1 T PO Q 12 H TAT active Not Available Not Available No t Available peg-electro lyte solution 420 gram oral solution 03/11 completed Not Available Not Available Not Available tramadol 50 mg tablet TAKE 1 TABLET BY MOUTH EVERY 6 HOURS NEEDED FOR PAIN 04/27 completed Not Available Not Available Not Available triamcinolo ne acetonide 0.1 % topical cream active Not Available Not Available Not Available amoxicillin 500 mg tablet Take 1 tablet 3 times a day by oral route for 7 days. 11/23 completed Not Available Not Available Not Available glimepiride 2 mg tablet TK 1 T PO BID WF 04/27 completed Not Available Not Available Not Available glimepiride 1 mg tablet TAKE 2 TABLETS BY MOUTH TWICE DAILY DIRECTED active Not Available Not Available No t Available lamotrigine 25 mg tablet TK 1 T PO QD 01/25 completed Not Available Not Available Not Available levothyroxi ne 75 mcg tablet TAKE 1 TABLET BY MOUTH EVERY DAY IN THE MORNING 12/11 completed Not Available Not Available Not Available meloxicam 7.5 mg tablet TK 1 T ONE TIME DAILY WITH FOOD active Not Available Not Available No t Available levothyroxi ne 88 mcg tablet TAKE 1 [...] e acetate 1 % eye drops,suspe nsion active Not Available Not Available Not Available lorazepam 0.5 mg tablet TK 1 T PO PRN FOR ANXEITY MAX OF 2 TS PER DAY 06/08 completed Not Available Not Available Not Available Valium 5 mg tablet take 1 tablet 30 mins before 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 Not Available Not Available No t Available ciprofloxac in 0.3 % eye drops active Not Available Not Available No t Available OneTouch Ultra Test strips USE TO TEST TWICE DAILY active Not Available Not Available No t Available meclizine 25 mg tablet TK 1 T PO Q 8 H PRN 04/27 completed Not Available Not Available Not Available benzonatate 100 mg capsule 04/26 completed Not Available Not Available Not Available nortriptyli ne 75 mg capsule TAKE 1 CAPSULE BY MOUTH TWICE DAILY active Not Available Not Available No t Available levothyroxi ne 50 mcg tablet one tablet daily 09/18 completed Not Available Not Available Not Available hydrocodone 7.5 mg-acetamin ophen 325 mg tablet active Not Available Not Available No t Available cephalexin 500 mg capsule TAKE 1 CAPSULE BY MOUTH THREE TIMES DAILY FOR 10 DAYS active Not Available Not Available No t Available pantoprazol e 40 mg tablet,britany yed release TAKE 1 TABLET BY MOUTH AT BEDTIME FOR 4 WEEKS 09/27 completed Not Available Not Available Not Available simvastatin 20 mg tablet TAKE 1 TABLET PO QPM 04/27 completed Not Available Not Available Not Available metformin 1,000 mg tablet Take 1 tablet twice a day by oral route with meals for 30 days. active Not Available Not Available No t Available triamcinolo ne acetonide 0.1 % topical ointment KATARZYNA AA Q 12 H PRN 02/02 completed Not Available Not Available Not Available divalproex ER 500 mg tablet,exte nded release 24 hr TAKE 2 TABLETS BY MOUTH EVERY MORNING AND TAKE 1 TABLET BY MOUTH AT NIGHT active Not Available Not Available No t Available promethazin e 25 mg tablet active Not Available Not Available Not Available omeprazole 20 mg capsule,del ayed release TAKE ONE CAPSULE BY MOUTH DAILY BEFORE A MEAL active Not Available Not Available No t Available aspirin 81 mg chewable tablet CHEW AND SWALLOW 1 TABLET BY MOUTH EVERY DAY active Not Available Not Available No t Available cephalexin 500 mg tablet Take 1 tablet 3 times a day by oral route for 7 days. 10/20 completed Not Available Not Available Not Available montelukast 10 mg tablet TAKE 1 TABLET BY MOUTH DAILY active Not Available Not Available No t Available hydroxyzine HCl 25 mg tablet 03/25 completed Not Available Not Available Not Available hydrocodone 5 mg-acetamin ophen 500 mg tablet TK 1 T PO Q 6 H PRN active Not Available Not Available No t Available topiramate 200 mg tablet TAKE 1 TABLET [...] completed Not Available Not Available Not Available cefuroxime axetil 500 mg tablet Take 1 tablet twice a day by oral route for 7 days. active Not Available Not Available No t Available polyethylen e glycol 3350 17 gram/dose oral powder 08/24 completed Not Available Not Available Not Available levofloxaci n 500 mg tablet TAKE 1 TABLET BY MOUTH EVERY 24 HOURS FOR 7 DAYS active Not Available Not Available No t Available methylpredn isolone 4 mg tablets in a dose pack TK UTD active Not Available Not Available Not Available albuterol sulfate HFA 90 mcg/actuati on aerosol inhaler INHALE 2 PUFFS BY MOUTH EVERY 6 HOURS NEEDED FOR SHORTNESS OF BREATH active Not Available Not Available No t Available colchicine 0.6 mg tablet TAKE 1 TABLET BY MOUTH EVERY DAY active Not Available Not Available No t Available pioglitazon e 30 mg tablet TAKE 1 TABLET BY MOUTH IN THE MORNING active Not Available Not Available No t Available ondansetron 4 mg disintegrat ing tablet DISSOLVE 1 T ON THE TONGUE Q 8 H PRN 04/27 completed Not Available Not Available Not Available cefdinir 300 mg capsule Take 1 capsule twice a day by oral route for 10 days. active Not Available Not Available No t Available topiramate 100 mg tablet TAKE 1 TABLET BY MOUTH EVERY NIGHT AT BEDTIME WITH 200MG TABLET active Not Available Not Available No t Available fluticasone propionate 50 mcg/actuati on nasal spray,suspe nsion SHAKE LIQUID AND USE 2 SPRAYS IN EACH NOSTRIL EVERY MORNING active Not Available Not Available No t Available metformin ER 500 mg tablet,exte nded release 24 hr Take 1 tablet twice a day by oral route before meals for 30 days. 02/13 completed Not Available Not Available Not Available doxycycline hyclate 100 mg tablet Take 1 tablet twice a day by oral route for 10 days. active Not Available Not Available No t Available dicyclomine 10 mg capsule Take 1 capsule 3 times a day by oral route. active Not Available Not Available No t Available loratadine 10 mg tablet TK 1 T PO D PRF ALLERGY SYMPTOMS active Not Available Not Available No t Available gentamicin 0.1 % topical ointment APPLY A SMALL AMOUNT TO THE AFFECTED AREA BY TOPICAL ROUTE 2 TIMES A DAY TO INFECTED TOE FOR TEN DAYS active Not Available Not Available No t Available naproxen 500 mg tablet 03/29 completed Not Available Not Available Not Available nortriptyli ne 50 mg capsule TAKE 1 CAPSULE BY MOUTH EVERY DAY IN THE EVENING active Not Available Not Available No t Available amoxicillin 875 mg-potassiu m clavulanate 125 mg tablet TAKE 1 TABLET BY MOUTH EVERY 12 HOURS 06/20 completed Not Available Not Available Not Available amoxicillin 500 mg-potassiu m clavulanate 125 mg tablet TAKE 1 TABLET BY MOUTH EVERY 12 HOURS FOR 10 DAYS DIRECTED 03/11 completed Not Available Not Available Not Available divalproex ER 250 mg tablet,exte nded release 24 hr TAKE 1 TABLET BY MOUTH EVERY NIGHT AT BEDTIME. TAKE WITH A 500 MG TABLET TO EQUAL 750 MG AT BEDTIME ONLY 06/20 completed Not Available Not Available Not Available Laxative (bisacodyl) 5 mg tablet TAKE ALL 6 TABLETS BY MOUTH AT 8 AM ON 01-24-2106/20 completed Not Available Not Available Not Available cyclobenzap rine 5 mg tablet active Not Available Not Available Not Available rosuvastati n 40 mg tablet TAKE 1 TABLET BY MOUTH EVERY NIGHT AT BEDTIME active Not Available Not Available No t Available metformin ER 1,000 mg tablet,exte nded release 24hr (osmotic) TK 1 T PO [...] Available No t Available Xopenex HFA 45 mcg/actuati on aerosol inhaler Inhale 2 puffs every 6 hours by inhalatio n route as needed for 90 days. 02/02 completed Not Available Not Available Not Available fenofibrate nanocrystal lized 145 mg tablet Take 1 tablet every day by oral route at bedtime for 30 days. active Not Available Not Available No t Available Januvia 50 mg tablet TAKE 1 TABLET BY MOUTH EVERY DAY IN THE MORNING active Not Available Not Available No t Available Flovent Diskus 100 mcg/actuati on powder for inhalation active Not Available Not Available N ot Available Prevnar 13 (PF) 0.5 mL intramuscul ar syringe active Not Available Not Available N ot Available Dulera 200 mcg-5 mcg/actuati on HFA aerosol inhaler INL 2 PFS PO BID 04/27 completed Not Available Not Available Not Available OneTouch Delica Lancets 30 gauge TEST BID 12/23 completed Not Available Not Available Not Available icosapent ethyl 1 gram capsule TAKE 2 CAPSULES BY MOUTH TWICE DAILY BEFORE MEALS active Not Available Not Available No t Available Preparation H(phenyleph ,cocoa buttr) 0.25 %-88.44 % rectal suppository Insert 1 supposito ry every day by rectal route as needed [...] Not Available Not Available Not Available Fluvirin 4503-4479 45 mcg (15 mcg x 3)/0.5 mL intramuscul ar suspension active Not Available Not Available N ot Available Adults Multivitami n 18 mg iron-400 mcg-25 mcg tablet Take 2 tablets every day by oral route. 01/04 completed Not Available Not Available Not Available OneTouch Ultra Blue Test Strip USE STRIPS TO TEST BLOOD SUGAR BID. ONCE BEFORE BREAKFAST AND ONCE HS active Not Available Not Available No t Available Fluzone Quad 2017-(PF) 60 mcg(15 mcgx4)/0.5 mL intramuscul ar syringe ADM 0.5ML IM UTD 04/27 completed Not Available Not Available Not Available Wixela Inhub 250 mcg-50 mcg/dose powder for inhalation INHALE 1 PUFF BY MOUTH TWICE DAILY 09/18 completed Not Available Not Available Not Available Wixela Inhub 500 mcg-50 mcg/dose powder for inhalation INHALE 1 PUFF BY MOUTH TWICE DAILY [...] Updated DateTime 3 170.18 cm 37.1 kg/m2 857959. 39 g 99.7 [degF] 79 /min 118 mm[Hg] 60 mm[Hg] MERISSA Torres [facility] [employer] [facility] 3 10:10:47 Date Recorded Body height Body temperature Provider N socrates and Address Organization Details Last Updated DateTime 03/26/2023 170.18 cm 97.9 [degF] Gretel Huerta MA [facility] [employer] [facility] 03/26/2023 11:28:52 Date Recorded Body weight Heart rate Oxygen saturation Oxygen saturation in Arterial blood by Pulse oximetry Systolic blood pressure Diastolic blood pressure Provider Name and Address Organization Details Last Updated DateTime 3 804869. 25 g 77 /min 97 % 97 % 122 mm[Hg] 64 mm[Hg] Hiral Harris RN [facility] [employer] [facility] 3 11:48:36 Date Recorded Body height Body mass index (BMI) Body weight Body temperature Heart rate Systolic blood pressure Diastolic blood pressure Provider Name and Address Organization Details Last Updated DateTime 3 170.18 cm 36.6 kg/m2 022810. 61 g 97.4 [degF] 78 /min 116 mm[Hg] 64 mm[Hg] MERISSA Torres [facility] [employer] [facility] 3 11:54:35 Date Recorded Body height Body mass index (BMI) Body weight Heart rate Respiratory rate Oxygen saturation Oxygen saturation in Arterial blood by Pulse oximetry Systolic blood pressure Diastolic blood pressure Provider Name and Address Organization Details Last Updated DateTime 4 170.18 cm 36.6 kg/m2 843460. 61 g 88 /min 14 /min 99 % 99 % 119 mm[Hg] 78 mm[Hg] Comfort MARKS [employer] [facility] [employer] [facility] 4 13:56:43 Date Recorded Body height Body mass index (BMI) Body weight Heart rate Respiratory rate Oxygen saturation Oxygen saturation in Arterial blood by Pulse oximetry Provider Name and Address Organization Details Last Updated DateTime 5 170.18 cm 36.6 kg/m2 505122. 61 g 78 /min 14 /min 98 % 98 % Comfort Angel Luis [place] [employer] [facility] [employer] [facility] 5 09:35:51 Social History Question Answer Notes LastModified by Organization Details LastModified Time Tobacco Smoking Status Former Smoker quit over 25 yrs ago Not Available [employer] 07/12/2022 00:51:27 Do You Have An Advance Directive? Yes Brother Is POA MIGRATION.0301 [id number] Information not available 07/12/2022 What Is Your Level Of Alcohol Consumption? None MIGRATION.0301 267972 Information not available 07/12/2022 What Is Your Level Of Caffeine Consumption? Moderate MIGRATION.0301 [id number] Information not available 07/12/2022 How Much Tobacco Do You Chew? None MIGRATION.0301 848006 Information not available 07/12/2022 In The 14 Days Before Symptom Onset, Have You Had Close Contact With A Laboratory-conf irmed COVID-19 While That Case Was Ill? No MIGRATION.0301 [id number] Information not available 07/12/2022 In The 14 Days Before Symptom Onset, Have You Had Close Contact With A Person Who Is Under Investigation For COVID-19 While That Person Was Ill? No MIGRATION.0301 048001 Information not available 07/12/2022 What Type Of Diet Are You Following? REGULAR MIGRATION.0301 [id number] Information not available 07/12/2022 Which Illicit Or Recreational Drugs Have You Used? None MIGRATION.0301 061146 Information not available 07/12/2022 Do You Or Have You Ever Used E-cigarettes Or Vape? Never Used Electronic Cigarettes MIGRATION.0301 266129 Information not available 07/12/2022 What Is The Highest Grade Or Level Of School You Have Completed Or The Highest Degree You Have Received? PC08134-3 MIGRATION.0301 844700 Information not available 07/12/2022 What Is Your Occupation? Disability MIGRATION.0301 036806 Information not available 07/12/2022 Have There Been Any Changes To Your Family Or Social Situation? No MIGRATION.0301 460124 Information not available 07/12/2022 What Is The Fluoride Status Of Your Home? Unknown MIGRATION.0301 937692 Information not available 07/12/2022 When Did You Quit Smoking? 15+yearssincelastc igarette MIGRATION.0301 454119 Information not available 07/12/2022 Are There Any Guns Present In Your Home? No MIGRATION.0301 448920 Information not available 07/12/2022 Do You Use Insect Repellent Routinely? No MIGRATION.0301 582335 Information not available 07/12/2022 Where Do You Live? SingleLevelHouse With Basement MIGRATION.0301 759390 Information not available 07/12/2022 Do You Have A Medical Power Of Rehabilitation Aide? Yes MIGRATION.0301 983990 Information not available 07/12/2022 What Was The Date Of Your Most Recent Tobacco Screening? 04/17/2023 [email or web address] Information not available 04/17/2023 Do You Have Any Pets? Yes MIGRATION.0301 804486 Information not available 07/12/2022 What Is Your Relationship Status? Single MIGRATION.0301 043015 Information not available 07/12/2022 Do You Use Your Seat Belt Or Car Seat Routinely? Yes MIGRATION.0301 614387 Information not available 07/12/2022 Do You Have Smoke And Carbon Monoxide Detectors In Your Home? Yes MIGRATION.0301 524821 Information not available 07/12/2022 Are You Passively Exposed To Smoke? No MIGRATION.0301 491274 Information not available 07/12/2022 Do You Or Have You Ever Used Smokeless Tobacco? Never Used Smokeless Tobacco MIGRATION.0301 838050 Information not available 07/12/2022 Are There Any Smokers In Your House? No MIGRATION.0301 340560 Information not available 07/12/2022 How Much Tobacco Do You Smoke? No MIGRATION.0301 985403 Information not available 07/12/2022 What Types Of Sporting Activities Do You Participate In? None MIGRATION.0301 760791 Information not available 07/12/2022 Do You Feel Stressed (tense, Restless, Nervous, Or Anxious, Or Unable To Sleep At Night)? [id number] MIGRATION.0301 381137 Information not available 07/12/2022 Do You Use Any Illicit Or Recreational Drugs? No MIGRATION.0301 688515 Information not available 07/12/2022 Do You Use Sunscreen Routinely? No MIGRATION.0301 965325 Information not available 07/12/2022 Has Tobacco Cessation Counseling Been Provided? No MIGRATION.0301 717761 Information not available 07/12/2022 How Many Years Have You Smoked Tobacco? 20 MIGRATION.0301 194513 Information not available 07/12/2022 Have You Recently Traveled Abroad? No MIGRATION.0301 872330 Information not available 07/12/2022 Do You Have Any Dietary Restrictions? No MIGRATION.0301 485427 Information not available 07/12/2022 Do You Or Have You Ever Used Any Other Forms Of Tobacco Or Nicotine? No MIGRATION.0301 369198 Information not available 07/12/2022 Sex: Male Functional Status Question Answer Note LastModified by Organizat ion Details LastModified Time What is your exercise level? Occasional walks [id number] 26 Information not available 07/12/2022 Mental Status None recorded. Family History Relationship Description Onset Age of this Age Resolved Age Notes LastModified by Organization Details LastModified Time Father Neoplasm of brain MIGRATION.441 [id number] Not available 07/12/2022 00:57:12 Father Family history of malignant neoplasm MIGRATION.482 [id number] Not available 07/12/2022 00:57:12 Father Family history of Hypertension MIGRATION.294 [id number] Not available 07/12/2022 00:57:12 Mother Congestive heart failure MIGRATION.564 [id number] Not available 07/12/2022 00:57:12 Mother Family history of Hypertension MIGRATION.592 [id number] Not available 07/12/2022 00:57:12 Brother Asthma MIGRATION.534 [id number] Not available 07/12/2022 00:57:12 Brother Anxiety MIGRATION.567 [id number] Not available 07/12/2022 00:57:12 Brother Family history of Hypertension MIGRATION.824 [id number] Not available 07/12/2022 00:57:12 Brother Family history of diabetes mellitus MIGRATION.921 1203051 Not available 07/12/2022 00:57:12 Brother Kidney disease MIGRATION.888 [id number] Not available 07/12/2022 00:57:12 Sister Family history of Hypertension MIGRATION.613 [id number] Not available 07/12/2022 00:57:12 Sister Family history of diabetes mellitus MIGRATION.733 [id number] Not available 07/12/2022 00:57:12 Unspecified Relation Asthma niece [email or web address] Not available 12/29 11:33:59 Medical History Condition Response CHEST XRAY N NERVE DISEASE N BLINDNESS N OTHER # 1 N POLIO N LUNG DISEASE/DISORDER N RADIATION / CHEMOTHERAPY N COPD N Other # 2 N BLOOD DISEASES N SURGERY N EAR OR HEARING PROBLEMS N FEMALE PROBLEMS / INFECTIONS N DEPRESSION (INCLUDING POST ) Y BOWEL PROBLEMS N STROKE/TIA N CHEST CT N ULCERS [...] HAVE YOU BEEN HOSPITALIZED OR SEEN IN [facility] IN THE PAST YEAR ? Y ATHEROSCLEROSIS [...] Conjugate, unspecified formulation 3 completed Not Available [facility] 03/06/2023 01:41:15 COVID-19, mRNA, LNP-S, PF, 100 mcg/0.5mL dose or 50 mcg/0.25mL dose 1 completed Not Available [facility] 03/06/2023 01:41:15 COVID-19, mRNA, LNP-S, PF, 100 mcg/0.5mL dose or 50 mcg/0.25mL dose 1 completed Not Available [facility] 03/06/2023 01:41:15 Influenza, split virus, quadrivalent, preservative 0 completed Not Available [facility] 03/06/2023 01:41:15 Influenza, split virus, quadrivalent, preservative 0 completed Not Available [facility] 03/06/2023 01:41:15 Influenza, split virus, quadrivalent, preservative 9 completed Not Available [facility] 03/06/2023 01:41:15 influenza, seasonal, intradermal, preservative free 3 completed Not Available [facility] 03/06/2023 01:41:15 COVID-19, mRNA, LNP-S, PF, 100 mcg/0.5mL dose or 50 mcg/0.25mL dose 1 completed Not Available [facility] 03/06/2023 01:41:15 Influenza, high-dose, quadrivalent, PF 1 completed Not Available [facility] 03/06/2023 01:41:15 Influenza, split virus, quadrivalent, preservative 7 completed Not Available [facility] 03/06/2023 01:41:15 Influenza, split virus, quadrivalent, PF 2 completed Not Available [facility] 03/06/2023 01:41:15 Influenza, split virus, trivalent, PF 4 completed Not Available [facility] 03/06/2023 01:41:15 Past Encounters Encounter ID Performer Location Encounter Start Date Encounter Closed Date Diagnosis/Indication Diagnosis SNOMED-CT Code Diagnosis ICD10 Code Diagnosis Note [id number] [facility] [place] [address] [place] [address], [facility] [place] [facility] [address] [place] [address] 07/16/2020 00:00:00 07/16/2020 14:18:07 [id number] [facility] Internal Med [facility] [address] [place] [address]., [address] [address] 08/09/2020 00:00:00 08/15/2020 09:49:27 [id number] [facility] [place] [place] [address] [place] [address], [address] [address] 08/13/2020 00:00:00 08/13/2020 16:20:54 [id number] _ATHENA_M IGRATION_ DEFAULT_1 _1 , 09/16/2020 00:00:00 09/16/2020 16:20:03 [id number] [facility] [address] [address] 10/13/2020 00:00:00 10/23/2020 13:49:34 [id number] [facility] [address] [address] 10/15/2020 00:00:00 10/31/2020 11:28:19 [id number] [facility] [address] [address] 10/20/2020 00:00:00 11/07/2020 15:45:45 [id number] [facility] [address] [address] 10/27/2020 00:00:00 10/31/2020 20:47:32 [id number] [facility] [address] [address] 11/08/2020 00:00:00 11/08/2020 21:55:16 [id number] [facility] [address] [address] 12/02/2020 00:00:00 12/05/2020 10:36:38 [id number] [facility] [place] [address], [place] [address] [place] [address] 12/06/2020 00:00:00 12/10/2020 17:55:37 [id number] [facility] [place] [address] [place] [address] 12/23/2020 00:00:00 01/10/2021 12:19:09 [id number] [facility] [place] [address], [address] [place] [address] 12/28/2020 00:00:00 12/28/2020 11:55:42 [id number] [facility] [place] [address] [facility] [place] [facility] [address] [place] [address] 01/03/2021 00:00:00 01/23/2021 21:03:16 [id number] _ATHENA_M IGRATION_ DEFAULT_1 _1 , 01/06/2021 00:00:00 01/06/2021 14:34:46 [id number] [facility] [place] [address] [facility], [facility] [place] [facility] [address] [place] [address] 01/20/2021 00:00:00 01/27/2021 10:11:52 [id number] [facility] [place] [address] [facility], [facility] [place] [facility] [address] [place] [address] 01/27/2021 00:00:00 01/27/2021 10:12:30 [id number] [facility] [place] [address] [place] [address] 01/31/2021 00:00:00 01/31/2021 16:24:45 [id number] [facility] Internal Med [facility] [address] [address] 03/11/2021 00:00:00 03/11/2021 21:59:34 [id number] _ATHENA_M IGRATION_ DEFAULT_1 _1 , 03/24/2021 00:00:00 03/24/2021 14:54:01 [id number] [facility] [place] [address] [place] [address] 04/14/2021 00:00:00 04/14/2021 17:05:22 [id number] [facility] [place] [address], [address] [place] [address] 04/21/2021 00:00:00 08/09/2021 11:13:05 [id number] [facility] [place] [address] [place] [address] 06/20/2021 00:00:00 06/20/2021 16:32:20 [id number] [facility] Internal Med [facility] [address] [place] [address] Ave[address] [address] 07/13/2021 00:00:00 07/31/2021 12:48:38 [id number] [facility] Internal Med [facility] [address] [place] [address] Ave[address] [address] 09/02/2021 00:00:00 09/02/2021 16:42:18 [id number] [facility] [place] [address] [facility], [address] [place] [address] 09/15/2021 00:00:00 09/15/2021 22:07:10 [id number] _ATHENA_M IGRATION_ DEFAULT_1 _1 , 09/29/2021 00:00:00 09/29/2021 21:48:28 [id number] [facility] [place] [address] [place] [address] 10/18/2021 00:00:00 10/18/2021 15:48:28 [id number] [facility] [place] [address] [place] [address] Ave[address] [address] 11/04/2021 00:00:00 11/06/2021 13:27:51 [id number] [facility] Internal Med [facility] [address] [place] [address] Ave[address] [address] 12/26/2021 00:00:00 12/27/2021 20:56:57 [id number] [facility] [place] [address], [address] [place] [address] 01/12/2022 00:00:00 01/12/2022 15:12:52 [id number] [facility] [place] [address], [address] [place] [address] 02/16/2022 00:00:00 02/16/2022 15:47:21 [id number] [facility] [place] [address] [place] [address] 02/20/2022 00:00:00 02/20/2022 22:12:12 [id number] [facility] [place] [address] [facility] [address] [place] [address] 03/09/2022 00:00:00 04/08/2022 10:41:44 [id number] [facility] [place] [address] [place] [address] [place] [address] 03/29/2022 00:00:00 04/02/2022 15:54:07 [id number] [facility] [place] [address] [place] [address] 04/19/2022 00:00:00 04/19/2022 16:59:07 [id number] [facility] [place] [address] [place] [address] 06/19/2022 00:00:00 06/19/2022 16:14:09 [id number] [facility] [place] [address] [place] [address] Ave[address] [facility] [address] [place] [address] 06/28/2022 00:00:00 07/02/2022 14:26:40 [id number] JUDIT Smith- [facility] [place] [address] [place] [address] 07/19/2022 10:37:21 07/20/2022 08:46:40 Chronic obstructive pulmonary disease [id number] J44.9 PFT in 09/2018 through [facility] in chart with ratio 109%, FEV1 97%. TLC 93%, DLCO 101.Repeat ed PFT and [address] in [facility], need records He had a syncopal episode [...] ight loss Obstructiv e sleep apnea syndrome [id number] G47.33 Not compliant with PAP therapyDis cussed the risk of uncorrecte d ALLA, including Ex-cigarette smoker 2810 02603 Z87.891 Quit over 25 years ago [id number] Georgia Story MD [facility] [place] [address] [place] [address] 08/07/2022 14:12:52 08/07/2022 15:27:21 Uncontrolled type 2 diabetes mellitus [id number] E11.65 a1c 8.2% up from 7% range- [...] Recommende d patient to utilize the diabetesfo Klosetshopb.Infratel from the ADA website to help with food preparatio n as this presents ideal carb content per meal so this will make carb counting much easier for patient. Recommende d he incorporat e natural insulin pipelines supervisor s such as pears, apples, cinnamon, thu and sweet potatoes to help mobilize his endogenous insulin. Recommende d up to 150 minutes of moderate level activity/e xercise weekly. Hypothyroidism 85639146 E03.9 TSH and FT4 in range- continue on LT4 75 mcg daily. Mixed hyperlipidemia 267 102296 E78.2 Continue statin and icosapent fish oil [...] he chooses to go outside of the [facility] to obtain labwork he was [...] in his case. He voiced understand ing. [id number] Turner Johnson DPM [facility] [place] [address] [facility], [facility] [address] [place] [address] 08/31/2022 16:56:44 09/04/2022 15:43:36 Bunion [id number] M21.611 Worse to the right footoffloa ding pad dispensedc ontinue accommodat john inserts with diabetic style shoeFollow -up as needed [id number] Jackie Orlando, JUDIT- [facility] [place] [address] [place] [address] 09/18/2022 10:12:00 09/18/2022 11:49:13 Dyspnea on exertion [id number] R06.09 PFT in 09/2018 through [facility] in chart with ratio 109%, FEV1 97%.TLC 93%, DLCO 101.Repeat ed PFT and [address], need recordsHe had a syncopal episode during latest PFT testing 03/30/22 but he was able to complete initial lung volumes. He had normal ratio and QCF5Qigr with normal lung volumesCBC and IGE levels WNLCXR 03/2021 WNL.Methac holine challenge completed 05/12/22 - negativeDC incruse ElliptaCon tinue Albuterol PRNInstruc yue on techniqueM ultifactor alCT chest with no evidence of ILDIncreas e activityWe ight loss Obstructiv e sleep apnea syndrome [id number] G47.33 Not compliant with PAP therapyDis cussed the risk of uncorrecte d ALLA, including Ex-cigarette smoker 2810 97681 Z87.891 Quit over 25 years agoNot a candidate for LDCTCT as above [id number] Mina Wilson MD [facility] [address] [facility], [address] [place] [address] 09/27/2022 13:39:35 09/27/2022 15:26:47 Pain of left hip joint [id number] 14142 M25.552 Type 2 darren betes mellitus 01170403 E11.9 Essential hypertension 80602801 I10 Hypercholesterolemia 136 45116 E78.00 [id number] Jackie Orlando, CATEGORY CONSULTANT-BC [facility] Pulmonolo gy [place] [address] [place] [address] 11/01/2022 11:39:44 11/01/2022 14:09:57 Dyspnea on exertion 22439048 R06.09 Multifacto ralCT chest with no evidence of ILDPFT in 09/2018 through [facility] in chart with ratio 109%, FEV1 97%.TLC 93%, DLCO 101.Repeat ed PFT and [address], need recordsHe had a syncopal episode during latest PFT testing 03/30/22 but he was able to complete initial lung volumes. He had normal ratio and LYF1Mkwu with normal lung volumesCBC and IGE levels WNLCXR 03/2021 WNL.Methac holine challenge completed 05/12/22 - negativeIn crease activityWe ight loss Obstructiv e sleep apnea syndrome 42660009 G47.33 Not compliant with PAP therapyHe agrees to restudyHe is unable to set up the home study equipment by himself, order for in-lab study Ex-cigarette smoker 9121 65624 Z87.891 Quit over 25 years ago [id number] Georgia Story MD [facility] Endo [facility] [place] [address] [place] [address] 12/11/2022 13:21:45 12/11/2022 14:33:42 Well controlled type 2 diabetes mellitus 748643787 E11.9 A1C of 5.9% down from 8.2%- continue on jardiance 25 mg daily, glimepirid e scale, pioglitazo ne 30 mg daily and januvia 50 mg daily. Discussed carb counting and how to read food labels. Recommende d patient to utilize the [employer].Infratel from the ADA website to help with food preparatio n as this presents ideal carb content per meal so this will make carb counting much easier for patient. Recommende d he incorporat e natural insulin pipelines supervisor s such as pears, apples, cinnamon, thu and sweet potatoes to help mobilize his endogenous insulin. Recommende d up to 150 minutes of moderate level activity/e xercise weekly. Hypothyroidism 69898392 E03.9 TSH and FT4 in low range- continue on LT4 88 mcg daily. Mixed hyperlipidemia 267 197526 E78.2 Continue statin and icosapent fish oil [...] answered and refills necessary at visit today. [id number] Mina Wilson MD [facility] [address] [place] [address] 12/29/2022 11:25:05 12/29/2022 12:14:17 Mixed hyperlipidemia 310073110 E78.2 Essential hypertension 08458464 I10 Hypothyroidism 56131191 E03.9 Diabetes mellitus 748008 09 E11.9 [id number] Turner Johnson DPM [facility] Pod[facility] [place] [address], [address] [place] [address] 03/06/2023 13:52:06 03/06/2023 14:09:03 Bunion [id number] M21.611 Worse to the right footoffloa ding silicone offloading spacer dispensedc ontinue accommodat john inserts with diabetic style shoeFollow -up 3 months if not improved will likely schedule arthrodesi s of 1st metatarsop halangeal joint for bunion correction [place] of toe 97383921 L84 right 2nd toemonitor for wound infection and presents seek medical attention immediatel y [id number] Mina Wilson MD [facility] Med [address] [place] [address] 03/20/2023 09:44:51 03/20/2023 10:29:41 Upper respiratory infection 46780980 J06.9 Type 2 darren betes mellitus 34262559 E11.9 Essential hypertension 96632850 I10 Hypercholesterolemia 136 75127 E78.00 Hypothyroidism 92180622 E03.9 [id number] Jackie Orlando, [facility] Pulmon[facility] gy [place] [address] [place] [address] 03/26/2023 11:27:32 03/26/2023 14:03:17 Dyspnea on exertion 41755693 R06.09 Multifacto ral and improvedCT chest with no evidence of ILDPFT in 09/2018 through [facility] in chart with ratio 109%, FEV1 97%.TLC 93%, DLCO 101.Repeat ed PFT and [address] recordsHe had a syncopal episode during latest PFT testing 03/30/22 but he was able to complete initial lung volumes. He had normal ratio and ZCC3Hilv with normal lung volumesCBC and IGE levels WNLCXR 03/2021 WNL.Methac holine challenge completed 05/12/22 - negativeIn crease activityWe ight loss Obstructiv e sleep apnea syndrome 38314006 G47.33 Not compliant with PAP therapyPos itive sleep study 12/2022 with AHI 5 and desaturati ons to 81%Discuss ed in detail with Mr Jose Carlos.He remains uninterest ed in PAP therapy.Di scussed the risks of uncorrecte d ALLA, including Ex-cigarette smoker 7400 59128 Z87.891 Quit over 25 years ago [id number] Mina Wilson MD [facility] Internal Med [facility] [address] [address] 04/17/2023 10:19:32 04/17/2023 12:29:26 Hypercholesterolemia 23880004 E78.00 Hypothyroidism 96905784 E03.9 [id number] Turner Johnson DPM [facility] Podiatry [address], [facility] [address] [place] [address] 06/14/2023 13:50:43 06/14/2023 15:21:55 Bunion [id number] M21.611 Worse to the right footoffloa ding silicone offloading spacer dispensedo btain surgical clearancew ill plan chevron osteotomy for quicker healing time and ability to weight bear [place] of toe 33066429 L84 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 2nd 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 for wound infection and presents seek medical attention immediatel y [id number] Turner Johnson DPM [facility] Pod[facility] [address], [facility] [address] [place] [address] 06/03/2024 09:24:46 06/09/2024 11:39:46 Type 2 diabetes mellitus 00315866 E11.9 cont dm control per pcp/ endocrinol ogy Bunion 068437382 M21.61 1 Worse to the right footoffloa ding silicone offloading spacer dispensedo btain surgical clearancew ill plan chevron osteotomy for quicker healing time and ability to weight bear Diabetic p eripheral neuropathy 717352520 E11.40 cont dm shoe gear and insolesmon itor feet daily Health Concerns Section Related Observation LastModified by Organization Detai ls LastModified Time None Recorded Concern Status LastModified by Organization Details LastModified Time None Recorded Advance Directives Directive Y: Brother is POA Payers Encounter Date Sequence Insurance Name Policy Number Policy Álvarez Covered Member ID Álvarez Member ID Guarantor Name 03/20/2023 1 [facility] (MEDICARE REPLACEMENT/AD VANTAGE - PPO) [id number] [place] [id number] Reji [place] 03/20/2023 2 [place]ARE OR [place]ICARE REPLACEMENT PRIMARY) [place] [id number] Reji [place] 03/26/2023 1 [facility] (MEDICARE REPLACEMENT/AD VANTAGE - PPO) [id number] Re[place] [id number] Reji [place] 03/26/2023 2 [place] REPLACEMENT PRIMARY) [place] [id number] Reji Branch 04/17/2023 1 [facility] (MEDICARE REPLACEMENT/AD VANTAGE - PPO) [id number] [place] [id number] Reji [place] 04/17/2023 2 [place]IC[place] REPLACEMENT PRIMARY) [place] [id number] Reji [place] 06/14/2023 1 [facility] (MEDICARE REPLACEMENT/AD VANTAGE - PPO) [id number] [place] [id number] Reji Branch 06/14/2023 2 [place] OR [place]IC[place] REPLACEMENT PRIMARY) [place] [id number] Reji Branch 06/03/2024 1 [facility] (MEDICARE REPLACEMENT/AD VANTAGE - PPO) [id number] [place] [id number] Reji [place] 06/03/2024 2 [place] OR [place]ICARE REPLACEMENT PRIMARY) [place] [id number] Reji [place] Notes Date Note Type Note Provider Name and Address Organization Details Recorded Time 03/20/2023 text/html ABDs no polyphag ia no polydipsia hypertension denies headache or dizziness hyperlipidemia could do better on losing weight hypothyroid no heat or cold intolerance does have a respiratory infection Mina Wilson MD [address], [address], [place], [address], [employer] 03/23/2023 18:18:39 03/26/2023 text/html Mr Jose Carlos thompson ts today to follow up on dyspnea, cough, [...] are fairSleep is restless, he endorses nocturia Jackie Orlando, [facility] [address], [place], [address], [employer] 03/26/2023 13:38:39 04/17/2023 text/html ER again for 1 o f his spells Mina Wilson MD [address], [place], [address], [employer] 04/21/2023 11:21:46 06/14/2023 text/html Patient returns for surgery of the right foot- states he got clearnce but never informed the office. Will need updated H and P clearance and will schedule right bunion surgery due to cont pain of the foot. denies any wounds but has a painful corn to the medial 2nd toe. disp a silicone toe spacer. Turner Johnson DPM [address], [facility] [address], [place], [address], [employer] 06/14/2023 15:01:13 06/03/2024 text/html Patient is a 59-year-old male. He returns to the office for diabetic foot care. Patient states overall is doing well. He has had some difficulties with his great toenails, which are thick and painful. Patient states he has difficulty cutting his nails and would like to have them cut. Patient continues to have mild discomfort, but does not have any wounds over the right great toe secondary to a bunion and corner of the second toe. I did discuss conservative and surgical options with the patient. Turner Johnson DPM [address] [place] [address], [place], [address], [place] [facility] 06/03/2024 13:40:02
[2024-08-08 11:24] LABS: Prothrombin Time 13.8 Seconds (11.1-14.7)
[2024-08-08 11:25] LABS: Lactic Acid Reflex 1.6 mmol/L (0.7-2.0); Partial Thromboplastin Time 23.1 Seconds (22.3-36.8)
[2024-08-08 11:26] LABS: Alanine Aminotransferase 30 U/L (6-50); Albumin Level 4.1 g/dL (3.5-5.1); Alkaline Phosphatase 91 U/L (38-126); Anion Gap 10 mmol/L (4-12); Aspartate Amino Transferase 45 U/L (17-59); Bilirubin,Total 0.4 mg/dL (0.2-1.3); Blood Urea Nitrogen 13 mg/dL (9-20); Calcium 9.3 mg/dL (8.4-10.2); Carbon Dioxide 21 mmol/L (22-30); Chloride 108 mmol/L (98-107); Estimated CRCL calculation 99 ml/min; Estimated Glomerular Filt Rate > 60; Glucose 192 mg/dL (65-110); Magnesium 2.2 mg/dL (1.6-2.3); Potassium 4.4 mmol/L (3.4-5.0); Sodium 139 mmol/L (137-145)
[2024-08-08 11:37] LABS: Troponin I < 0.012 ng/mL (0.000-0.034)
[2024-08-08 11:48] LABS: Influenza A QL RT-PCR Negative (Negative); Influenza B QL RT-PCR Negative (Negative); RSV RNA, RT-PCR Negative (Negative); SARS-CoV-2 RNA PCR Negative (Negative)
[2024-08-08] MEDS: SODIUM CHLORIDE 0.9% IV 1,000 ML 999 ML IV CONT (11:48)
== END 2024-08-08 16:39 | disposition home or self-care (01) ==
PROVIDERS: Emergency Provider Physician Assistant; PCP Internal Medicine
DX: R55 Syncope and collapse (principal); I10 Essential (primary) hypertension; E11.9 Type 2 diabetes mellitus without complications; J44.9 Chronic obstructive pulmonary disease, unspecified; Z86.73 Personal history of transient ischemic attack (TIA), and cerebral infarction without residual deficits; Z20.822 Contact with and (suspected) exposure to COVID-19
CPT/HCPCS: 36415; 70450; 71046; 80053; 83605; 83735; 84484; 85025; 85610; 85730; 87637; 93005; 96360; 99284; J7030

== ENCOUNTER 2024-09-08 19:34 | Emergency (ER) | payer MEDICARE, MEDICAID, SELFPAY ==
--- NOTE | ~2024-09-08 | CT_ITS ---
EXAMINATION: CT brain wo con DATE: 09/08/2024 21:41 INDICATION: head trauma . TECHNIQUE: Computed tomography (CT) of the head was performed without intravenous contrast. The mA wa s adjusted according to patient size. Iterative reconstruction technique was employed. The dose-lengt h product was 681.00 mGy-cm. COMPARISON: 08/08/2024. FINDINGS: No acute intracranial hemorrhage or extra-axial fluid collection. No hydrocephalus, mass, or herniation. No acute ischemic infarct. Old right craniotomy defect Unremarkable dural venous sinus attenuation. No acute osseous abnormality. Right maxillary retention cyst/polyp, the remaining aerated spaces are clear. Moderate atrophy and chronic white matter change. Atherosclerotic intracranial calcification. Bilater al lens replacements. Right temporal lobe encephalomalacia. Mild bilateral basal ganglia calcificatio n. IMPRESSION: No acute intracranial process. Reviewed, dictated and finalized at location K.
[2024-09-08 19:42] VITALS: BP 117/81; PULSE 94; RESP 14; TEMP 36.8; O2SAT 98
--- NOTE | 2024-09-08 19:42 | ECG_ITS ---
Test Date: 2024-09-08 19:45:44 Measurements Intervals Isabella Rate: 93 P: 54 NV: 208 QRS: -87 QRSD: 124 T: 31 QT: 391 QTc: 487 Interpretive Statements SINUS RHYTHM WITH FIRST DEGREE AV BLOCK LEFT AXIS DEVIATION POOR R WAVE PROGRESSION INFERIOR INFARCT, AGE INDETERMINATE BASELINE ARTIFACT- I, II, AVR, AVL, AVF, V1-V3 ABNORMAL ECG Compared to ECG 08/08/2024 10:29:06 NO SIGNIFICANT CHANGE Electronically Signed On 09-08-2024 19:50:27 CDT by Nelson Nguyen D.O.
[2024-09-08 20:46] VITALS: BP 113/73; PULSE 93; RESP 13; O2SAT 97
--- OUTSIDE RECORDS SUMMARY | 2024-09-08 21:33 | XMS_ITS | Clinical Summary ---
Author Organization [facility] Address [address] [place] [address] Care Team Providers Care Licensed Practical Nurse Name Role Phone Sergey Wilson MD Primary Care Provider [phone] Source Comments [facility],non-[facility] Affiliates and Associated Physician Practices is amultiple site organization consisting of ambulatory clinics and hospital sitesin [place], [place], [place] and [place]. This disclosure is being madepursuant to the Care Everywhere program and may not contain all information available regarding this patient. Last updated 18.[facility] [employer] Allergies Active Allergy Reactions Criticality Noted Date Comments Phenobarbital Unknown 09/25/2020 Medications * Be aware that medications may not be up to date on this document. Alwaysverify current medications with the patient. acetaminophen (TYLENOL) 500 MG capsule Take 1 [...] at Not on file Legal Sex Male 5:17 PM CDT Gender Identity Male 05/25/2021 9:36 PM [employer] Sexual Orientation Not on file Last Filed Vital Signs Vital Sign Reading Time Taken Comments Blood Pressure 99/48 06/02/2021 7:32 PM [employer] Pulse 82 06/02/2021 7:32 PM [employer] Temperature 37.2 C (99 F) 06/02/2021 7:32 PM [employer] Respiratory Rate 16 06/02/2021 7:32 PM [employer] Oxygen Saturation 98% 06/02/2021 7:32 PM [employer] Inhaled Oxygen Concentration - - Weight 104.3 kg (230 lb) 06/02/2021 7:32 PM [employer] Height 177.8 cm (5' 10 ) 06/02/2021 7:32 PM [employer] [employer] Body Mass Index 33 06/02/2021 7:32 PM [employer] [employer] Plan of Treatment Health Maintenance Due Date [...] ( - season) 2024 05/13/2021, 08/14/2020, 07/17/2020 DEPRESSION SCREENING 05/14/2024 INFLUENZA VACCINE (Season Ended) 2025 03/02/2021, 02/25/2020, 02/18/2020, Additional history exists COLONOSCOPY - COLON CA SCREENING 01/21/2025 01/21/2015 [...] age to complete this topic Insurance MEDICAID - [place] [facility] MANAGED MEDICARE ADV [id number] [place] [address] MANAGED MEDICARE ADV Member Subscriber Plan / Payer (Ef fective 2021-Present) Name:Reji Munoz Relation to Subscriber:Self Name:REJI MUNOZ Payer ID:[id number] (NAIC) Type:Medicare-Managed Care Address: [place] [phone] MEDICAID - [facility] Care Teams Licensed Practical Nurse Relationship Specialty Start Date End Date Sergey Wilson MD PCP - General Internal Medicine 09/25/20
--- OUTSIDE RECORDS SUMMARY | 2024-09-08 21:33 | XMS_ITS | Data Portability ---
Author Organization [facility], Main Office Address [address] [place] [address] Care Team Providers Care Flight Readiness Technician Name Role Phone MINA WILSON Primary Care Provider [phone] MINA WILSON Referring Provider Assessment Encounter Date Assessment Date Assessment LastModified by Organization Details LastModified Time 03/20/2023 03/20/2023 Amoxicillin goals for weight LDL A1c blood pressure been discussed follow-up 4 months Not available 03/23/2023 18:18:21 04/17/2023 04/17/2023 Continue current therapy follow-up 4 months [email or web address] Not available 04/21/2023 11:21:19 Plan of Treatment Reminders Order Date Submit Date Provider Last Modified By Organization Details Last Modified Time Details Appointments None recorded. Lab None recorded. Referral None recorded. Procedures None recorded. Surgeries None recorded. Imaging None recorded. Medication Orders amoxicillin 875 mg tablet 2022 023 gphillips 45 [id number], [address], [place], [id number], 11:50:15 Patient TargetsNo targets recorded. Patient InstructionsNo [...] diabe ingrid REFER ENCE: Diabe ingrid Care 2016, 39( ppl.1 ):s13 -s22 Not Available [facility] (Lab) [address] [place], [address], 04/17/2024 14:15:39 04/17/20 24 04/17/2024 COMPR EHENS JOHN METAB OLIC PANEL sodium 140 mmol/ L 137-14 5 Not Available [facility] (Lab) [address] [place], [address], 04/17/2024 14:23:40 04/17/20 24 04/17/2024 COMPR EHENS JOHN METAB OLIC PANEL potassium 4.4 mmol/ L 3.5-5. 1 Not Available [facility] (Lab) [address] [place], [address], 04/17/2024 14:23:40 04/17/20 24 04/17/2024 COMPR EHENS JOHN METAB OLIC PANEL chloride 113 mmol/ L 98-107 high Not Available [facility] (Lab) [address] [place], [address], 04/17/2024 14:23:40 04/17/20 24 04/17/2024 COMPR EHENS JOHN METAB OLIC PANEL carbon dioxide 21 mmol/ L 22-30 low Not Available [facility] (Lab) [address] [place], [address], 04/17/2024 14:23:40 04/17/20 24 04/17/2024 COMPR EHENS JOHN METAB OLIC PANEL anion gap 10.4 mmol/ L 14-22 low Not Available [facility] (Lab) [address] [place], [address], 04/17/2024 14:23:40 04/17/20 24 04/17/2024 COMPR EHENS JOHN METAB OLIC PANEL glucose 156 mg/dL 70-99 high Not Available [facility] (Lab) [address] [facility] [place], [address], 04/17/2024 14:23:40 04/17/20 24 04/17/2024 COMPR EHENS JOHN METAB OLIC PANEL BUN 25 mg/dL 8-19 high Not Available [facility] (Lab) [address] [place], [address], 04/17/2024 14:23:40 04/17/20 24 04/17/2024 COMPR EHENS JOHN METAB OLIC PANEL creatinine 0.89 mg/dL 0.66-1 .25 Not Available [facility] (Lab) [address] [place], [address], 04/17/2024 14:23:40 04/17/20 24 04/17/2024 COMPR EHENS JOHN METAB OLIC PANEL GFR >60 Refer ence Range : [place] ge GFR Healt hy Adult : >60 [...] or ethni c subgr oups, such as Hisdc nics. Outsi de the valid ated estrella [...] calcu lator is avail able on the [facility] websi te: https ://froy vega.comfort mcgovern.o marco/pr ofess ional s/kdo qi/gf r_cal culat or Not Available [facility] (Lab) [address] [place], [address], 04/17/2024 14:23:40 04/17/20 24 04/17/2024 COMPR EHENS JOHN METAB OLIC PANEL alkaline phosphatase 101 U/L 38-126 Not Available [facility] (Lab) [address] [place], [address], 04/17/2024 14:23:40 04/17/20 24 04/17/2024 COMPR EHENS JOHN METAB OLIC PANEL alanine aminotransfe rase 34 U/L 0-50 Not Available [facility] (Lab) [address] [place], [address], 04/17/2024 14:23:40 04/17/20 24 04/17/2024 COMPR EHENS JOHN METAB OLIC PANEL aspartate aminotransfe rase 56 U/L 15-46 high Not Available [facility] (Lab) [address] [place], [address], 04/17/2024 14:23:40 04/17/20 24 04/17/2024 COMPR EHENS JOHN METAB OLIC PANEL bilirubin, total 0.80 mg/dL 0.20-1 .30 Not Available [facility] (Lab) [address] [place], [address], 04/17/2024 14:23:40 04/17/20 24 04/17/2024 COMPR EHENS JOHN METAB OLIC PANEL calcium 9.4 mg/dL 8.4-10 .2 Not Available [facility] (Lab) [address] [place], [address], 04/17/2024 14:23:40 04/17/20 24 04/17/2024 COMPR EHENS JOHN METAB OLIC PANEL total protein 6.8 g/dL 6.3-8. 2 Not Available [facility] (Lab) [address] [place], [address], 04/17/2024 14:23:40 04/17/20 24 04/17/2024 COMPR EHENS JOHN METAB OLIC PANEL albumin 4.1 g/dL 3.4-5. 0 Not Available [facility] (Lab) [address] [place], [address], 04/17/2024 14:23:40 04/17/20 24 04/17/2024 COMPR EHENS JOHN METAB OLIC PANEL globulin 2.7 g/dL 2.6-4. 2 Not Available [facility] (Lab) [address] [place], [address], 04/17/2024 14:23:40 04/17/20 24 04/17/2024 COMPR EHENS JOHN METAB OLIC PANEL A/G ratio 1.5 ratio 1.0-2. 0 Not Available [facility] (Lab) [address] [place], [address], 04/17/2024 14:23:40 04/17/20 24 04/17/2024 LIPID PANEL cholesterol 125 mg/dL 140-19 9 low NIH SAMANTHA NSUS RECOM MENDA TION FOR HEMANTH STERO L: ADULT CHILD LOW RISK: <200 <170 BORDE RLINE : <200- 239 ----- HIGH RISK: >240 >200 Not Available [facility] (Lab) [address] [place], [address], 04/17/2024 14:23:45 04/17/20 24 04/17/2024 LIPID PANEL triglyceride s 343 mg/dL 0-150 high NIH SAMANTHA NSUS REPOR T RECOM MENDA TION FOR TRIGL YCERI DEYSI: ADULT CHILD LOW RISK: <150 ----- BODER LINE: 150-1 99 ----- HIGH RISK: >200 ----- Not Available [facility] (Lab) [address] [place], [address], 04/17/2024 14:23:45 04/17/20 24 04/17/2024 LIPID PANEL HDL cholesterol 12 mg/dL 40- low Not Available [facility] (Lab) [address] [place], [address], 04/17/2024 14:23:45 04/17/20 24 04/17/2024 LIPID PANEL [...] WILL NOT BE REPOR YUE. Not Available [facility] (Lab) [address] [place], [address], 04/17/2024 14:23:45 04/17/20 24 04/17/2024 PSA SCREE N PSA medicare screen 0.16 NG/mL 0.00-4 .00 Not Available [facility] (Lab) [address] [place], [address], 04/17/2024 14:43:21 04/13/20 23 04/13/2023 XR, chest No observ ation record ed. [address], [address], 04/14/2023 08:12:21 07/20/19 24 07/20/2023 XR, chest No observ ation record ed. [email or web address], [address], 08/23/2023 14:10:21 03/11/20 24 03/11/2024 XR, thumb [facility] [address] [place], [place] [id number] [phone] Patien t Name: REJI BRANCH ion #: [id number] Sex: M : 1964 7 Dictat [...] 2023 13:36: 40 PM Page 1 [email or web address] [facility] ([facility]) [address] [place] [address], [address], 03/12/2024 08:24:13 Result Notes None recorded. Problems Name Problem SNOMED Code Status Onset Date Resolution Date Notes Provider Name and Address Organization Details Recorded Time Inguinal pain 170546512 Active 2017 Not Available [facility] 3 09:29:02 Renewal of prescript ion Active 2021 Not Available [facility] 3 09:29:02 Pain in lower limb 72270623 Active Not Available [facility] 3 09:29:02 Celluliti s of right foot 50269348997 318506 Active 2020 Not Available [facility] 3 09:29:02 Rectal hemorrhag e 46257842 Active Not Available [facility] 3 09:29:02 Mixed hyperchol esterolem ia and hypertrig lyceridem ia 981612501 Active 2019 Not Available [facility] 3 09:29:02 Hyperchol esterolem ia 24326916 Active Not Available [facility] 3 09:29:02 Chronic obstructi ve pulmonary disease 26398499 Active 2020 Not Available [facility] 3 09:29:02 Constipat ion 51948525 Active Not Available [facility] 3 09:29:02 Liver enzymes outside reference range 594541206 Active Not Available [facility] 3 09:29:02 Pain in finger 49047276 Active 2017 Not Available [facility] 3 09:29:02 Asthma 326572834 Active Not Available [facility] 3 09:29:02 Pain of joint of wrist Active Not Available [facility] 3 09:29:02 Open wound of knee and/or leg and/or ankle Completed Not Available [facility] 3 01:04:41 Pain 88984778 Active Not Available [facility] 3 09:29:02 Syncope 874519518 Active 2020 Not Available [facility] 3 09:29:03 Vascular disorder 01810126 Active 2020 Not Available [facility] 3 09:29:03 Rib pain 398744618 Active 2021 Not Available [facility] 3 09:29:03 Pain in right foot 40584566895 9107 Active 2020 Not Available [facility] 3 09:29:03 Vitamin D deficienc y 20348517 Active Not Available [facility] 3 09:29:03 Sinusitis 16909919 Active 2021 Not Available [facility] 3 09:29:03 Dizziness 844651477 Active 2021 Not Available [facility] 3 09:29:03 Hypothyro idism 34966179 Active Not Available [facility] 3 09:29:03 Bunion 943413527 Active 2021 Not Available [facility] 3 09:29:03 Altered mental status 655686497 Active Not Available [facility] 3 09:29:03 Diabetic periphera l neuropath y 800407380 Active 2021 Not Available [facility] 3 09:29:03 Type 2 diabetes mellitus 45369413 Active 2018 Not Available [facility] 3 09:29:03 Uncontrol led type 2 diabetes mellitus 052419226 Active 2022 Not Available [facility] 3 09:29:03 Pain of shoulder region 46643467 Completed Not Available [facility] 3 01:04:42 Contusion of lower leg 22260161 Completed Not Available [facility] 3 01:04:42 [place] of toe 00205374 Active 2021 Not Available [facility] 3 09:29:03 Atelectas is 71369225 Active 2021 Not Available [facility] 3 09:29:03 Respirato ry crackles 17829775 Active 2022 Not Available [facility] 3 09:29:03 Pain of hip region 03684835 Completed Not Available [facility] 3 01:04:43 Pain of hip region 32099605 Active 2020 Not Available [facility] 3 09:29:03 Upper respirato ry infection 41843742 Active 2022 Not Available [facility] 3 09:29:03 Acute upper respirato ry infection 48076566 Active 2021 Not Available [facility] 3 09:29:03 Essential hypertens ion 66475104 Active Not Available [facility] 3 09:29:03 Dyspnea on exertion 67741577 Active 2019 Not Available [facility] 3 09:29:03 Chronic cough 97333066 Active 2021 Not Available [facility] 3 09:29:03 Venous stasis 47215526 Active Not Available [facility] 3 09:29:03 Diabetes mellitus 56281669 Active Not Available [facility] 3 09:29:03 Pain of elbow region 09331398 Active Not Available [facility] 3 09:29:03 Rectal pain 32619632 Completed Not Available [facility] 3 01:04:44 Obstructi ve sleep apnea syndrome 97317000 Active Not Available [facility] 3 09:29:03 Epigastri c pain 69885379 Active 2021 Not Available [facility] 3 09:29:03 Ex-smoker 5591595 Active 2019 Not Available [facility] 3 09:29:03 Pain in limb 78810370 Completed Not Available [facility] 3 01:04:45 Seizure 74694437 Active Not Available [facility] 3 09:29:03 Contusion of lower limb 36353670 Completed Not Available [facility] 3 01:04:45 Mixed hyperlipi demia 232206939 Active 2022 Not Available [facility] 3 09:29:02 Pain of left hip joint 35017121314 9100 Active 2022 Not Available [facility] 3 09:29:03 Well controlle d type 2 diabetes mellitus 741618694 Active 2022 Not Available [facility] 3 09:29:03 Low back pain 126152513 Active 2022 Not Available [facility] 3 09:29:03 Bunion 673524009 Active 2022 Turner Johnson DPM [address] [employer], [place], [address] , [facility] 3 14:04:41 Notes:[facility] diagnostic sleep study 01/04/23 AHI = 5, [...] Nail Debridement completed Turner Johnson DPM [address], [place], [address], [facility] 06/03/2024 13:37:22 03/17/20 19 Cardiovascular Surgery completed Not Available [facility] 07/12/2022 00:57:11 06/29/19 17 Exc [id number] b9+noemi 1.1-2 completed Not Available [facility] 07/12/2022 00:57:11 01/22/20 15 Colonoscopy with biopsy completed Not Available [facility] 07/12/2022 00:57:11 04/26/20 14 Brain Surgery completed Not Available [facility] 07/12/2022 00:57:11 11/19/19 13 other completed Not Available [facility] 07/12/2022 00:57:11 Excisions - Specify completed Not Available [facility] 07/12/2022 00:57:11 Imaging Results Imaging Date Name Status LastModified by Organiz ation Details LastModified Time 04/13/2023 [facility] [place] [address] [facility] [address] [place] [address], [address], 04/14/2023 08:12:21 07/20/2023 XR, chest completed [email or web address] [facility] [place] [address] [facility] [address] [place] [address], [address], 08/23/2023 14:10:21 03/11/2024 XR, thumb completed [email or web address] [facility] (Imaging) [address] [place], [address], 03/12/2024 08:24:13 Procedure Notes None recorded. Medical Equipment None Reported. 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 39 g 99.7 [degF] 79 /min 118 mm[Hg] 60 mm[Hg] MERISSA Torres [facility] [employer] [facility] 3 10:10:47 Date Recorded Body height Body temperature Provider N socrates and Address Organization Details Last Updated DateTime 03/26/2023 170.18 cm 97.9 [degF] Gretel Huerta MA [facility] [employer] [facility] 03/26/2023 11:28:52 Date Recorded Body weight Heart rate Oxygen saturation Oxygen saturation in Arterial blood by Pulse oximetry Systolic blood pressure Diastolic blood pressure Provider Name and Address Organization Details Last Updated DateTime 3 237314. 25 g 77 /min 97 % 97 % 122 mm[Hg] 64 mm[Hg] Hiral Harris RN [facility] [employer] [facility] 3 11:48:36 Date Recorded Body height Body mass index (BMI) Body weight Body temperature Heart rate Systolic blood pressure Diastolic blood pressure Provider Name and Address Organization Details Last Updated DateTime 3 170.18 cm 36.6 kg/m2 763704. 61 g 97.4 [degF] 78 /min 116 mm[Hg] 64 mm[Hg] MERISSA Torres [facility] [employer] [facility] 3 11:54:35 Date Recorded Body height Body mass index (BMI) Body weight Heart rate Respiratory rate Oxygen saturation Oxygen saturation in Arterial blood by Pulse oximetry Systolic blood pressure Diastolic blood pressure Provider Name and Address Organization Details Last Updated DateTime 4 170.18 cm 36.6 kg/m2 286743. 61 g 88 /min 14 /min 99 % 99 % 119 mm[Hg] 78 mm[Hg] Comfort [facility]KS [facility] [place] [employer] [facility] 4 13:56:43 Date Recorded Body height Body mass index (BMI) Body weight Heart rate Respiratory rate Oxygen saturation Oxygen saturation in Arterial blood by Pulse oximetry Provider Name and Address Organization Details Last Updated DateTime 5 170.18 cm 36.6 kg/m2 663546. 61 g 78 /min 14 /min 98 % 98 % Comfort MARKS [facility] [place] [employer] [facility] 5 09:35:51 Social History Question Answer Notes LastModified by Organization Details LastModified Time Tobacco Smoking Status Former Smoker quit over 25 yrs ago Not Available [facility] 07/12/2022 00:51:27 Do You Have An Advance Directive? Yes Brother Is POA MIGRATION.0301 [id number] Information not available 07/12/2022 What Is Your Level Of Alcohol Consumption? None MIGRATION.0301 764408 Information not available 07/12/2022 What Is Your Level Of Caffeine Consumption? Moderate MIGRATION.0301 026721 Information not available 07/12/2022 How Much Tobacco Do You Chew? None MIGRATION.0301 229770 Information not available 07/12/2022 In The 14 Days Before Symptom Onset, Have You Had Close Contact With A Laboratory-conf irmed COVID-19 While That Case Was Ill? No MIGRATION.0301 047057 Information not available 07/12/2022 In The 14 Days Before Symptom Onset, Have You Had Close Contact With A Person Who Is Under Investigation For COVID-19 While That Person Was Ill? No MIGRATION.0301 955514 Information not available 07/12/2022 What Type Of Diet Are You Following? REGULAR MIGRATION.0301 278691 Information not available 07/12/2022 Which Illicit Or Recreational Drugs Have You Used? None MIGRATION.0301 476706 Information not available 07/12/2022 Do You Or Have You Ever Used E-cigarettes Or Vape? Never Used Electronic Cigarettes MIGRATION.0301 245234 Information not available 07/12/2022 What Is The Highest Grade Or Level Of School You Have Completed Or The Highest Degree You Have Received? [id number] MIGRATION.0301 855122 Information not available 07/12/2022 What Is Your Occupation? Disability MIGRATION.030 516480 Information not available 07/12/2022 Have There Been Any Changes To Your Family Or Social Situation? No MIGRATION.0301 639355 Information not available 07/12/2022 What Is The Fluoride Status Of Your Home? Unknown MIGRATION.0301 240089 Information not available 07/12/2022 When Did You Quit Smoking? 15+yearssincelastc igarette MIGRATION.0301 827245 Information not available 07/12/2022 Are There Any Guns Present In Your Home? No MIGRATION.0301 837874 Information not available 07/12/2022 Do You Use Insect Repellent Routinely? No MIGRATION.0301 326713 Information not available 07/12/2022 Where Do You Live? SingleLevelHouse With Basement MIGRATION.0301 845948 Information not available 07/12/2022 Do You Have A Medical Power Of Billing And Insurance Coordinator? Yes MIGRATION.0301 335250 Information not available 07/12/2022 What Was The Date Of Your Most Recent Tobacco Screening? 04/17/2023 [email or web address] Information not available 04/17/2023 Do You Have Any Pets? Yes MIGRATION.0301 606400 Information not available 07/12/2022 What Is Your Relationship Status? Single MIGRATION.0301 372719 Information not available 07/12/2022 Do You Use Your Seat Belt Or Car Seat Routinely? Yes MIGRATION.0301 478609 Information not available 07/12/2022 Do You Have Smoke And Carbon Monoxide Detectors In Your Home? Yes MIGRATION.0301 879523 Information not available 07/12/2022 Are You Passively Exposed To Smoke? No MIGRATION.0301 321977 Information not available 07/12/2022 Do You Or Have You Ever Used Smokeless Tobacco? Never Used Smokeless Tobacco MIGRATION.0301 969814 Information not available 07/12/2022 Are There Any Smokers In Your House? No MIGRATION.0301 883415 Information not available 07/12/2022 How Much Tobacco Do You Smoke? No MIGRATION.0301 621788 Information not available 07/12/2022 What Types Of Sporting Activities Do You Participate In? None MIGRATION.0301 574695 Information not available 07/12/2022 Do You Feel Stressed (tense, Restless, Nervous, Or Anxious, Or Unable To Sleep At Night)? [id number] MIGRATION.0301 035890 Information not available 07/12/2022 Do You Use Any Illicit Or Recreational Drugs? No MIGRATION.0301 158128 Information not available 07/12/2022 Do You Use Sunscreen Routinely? No MIGRATION.0301 159054 Information not available 07/12/2022 Has Tobacco Cessation Counseling Been Provided? No MIGRATION.0301 385290 Information not available 07/12/2022 How Many Years Have You Smoked Tobacco? 20 MIGRATION.0301 327366 Information not available 07/12/2022 Have You Recently Traveled Abroad? No MIGRATION.0301 723974 Information not available 07/12/2022 Do You Have Any Dietary Restrictions? No MIGRATION.0301 593939 Information not available 07/12/2022 Do You Or Have You Ever Used Any Other Forms Of Tobacco Or Nicotine? No MIGRATION.0301 644324 Information not available 07/12/2022 Sex: Male Functional Status Question Answer Note LastModified by [employer] ion Details LastModified Time What is your exercise level? Occasional walks MIGRATION.[id number] 26 Information not available 07/12/2022 Mental Status None recorded. Family History Relationship Description Onset Age of this Age Resolved Age Notes LastModified by Organization Details LastModified Time Father Neoplasm of brain MIGRATION.606 [id number] Not available 07/12/2022 00:57:12 Father Family history of malignant neoplasm MIGRATION.780 [id number] Not available 07/12/2022 00:57:12 Father Family history of Hypertension MIGRATION.753 [id number] Not available 07/12/2022 00:57:12 Mother Congestive heart failure MIGRATION.733 1708550 Not available 07/12/2022 00:57:12 Mother Family history of Hypertension MIGRATION.456 [id number] Not available 07/12/2022 00:57:12 Brother Asthma MIGRATION.868 [id number] Not available 07/12/2022 00:57:12 Brother Anxiety MIGRATION.592 [id number] Not available 07/12/2022 00:57:12 Brother Family history of Hypertension MIGRATION.994 [id number] Not available 07/12/2022 00:57:12 Brother Family history of diabetes mellitus MIGRATION.333 [id number] Not available 07/12/2022 00:57:12 Brother Kidney disease MIGRATION.973 [id number] Not available 07/12/2022 00:57:12 Sister Family history of Hypertension MIGRATION.225 [id number] Not available 07/12/2022 00:57:12 Sister Family history of diabetes mellitus MIGRATION.413 [id number] Not available 07/12/2022 00:57:12 Unspecified Relation Asthma niece [email or web address] Not available 12/29 11:33:59 Medical History Condition [...] HAVE YOU BEEN HOSPITALIZED OR SEEN IN [facility] IN THE PAST YEAR ? Y ATHEROSCLEROSIS [...] Conjugate, unspecified formulation 3 completed Not Available [facility] 03/06/2023 01:41:15 COVID-19, mRNA, LNP-S, PF, 100 mcg/0.5mL dose or 50 mcg/0.25mL dose 1 completed Not Available [facility] 03/06/2023 01:41:15 COVID-19, mRNA, LNP-S, PF, 100 mcg/0.5mL dose or 50 mcg/0.25mL dose 1 completed Not Available [facility] 03/06/2023 01:41:15 Influenza, split virus, quadrivalent, preservative 0 completed Not Available [facility] 03/06/2023 01:41:15 Influenza, split virus, quadrivalent, preservative 0 completed Not Available [facility] 03/06/2023 01:41:15 Influenza, split virus, quadrivalent, preservative 9 completed Not Available [facility] 03/06/2023 01:41:15 influenza, seasonal, intradermal, preservative free 3 completed Not Available [facility] 03/06/2023 01:41:15 COVID-19, mRNA, LNP-S, PF, 100 mcg/0.5mL dose or 50 mcg/0.25mL dose 1 completed Not Available [facility] 03/06/2023 01:41:15 Influenza, high-dose, quadrivalent, PF 1 completed Not Available [facility] 03/06/2023 01:41:15 Influenza, split virus, quadrivalent, preservative 7 completed Not Available [facility] 03/06/2023 01:41:15 Influenza, split virus, quadrivalent, PF 2 completed Not Available [facility] 03/06/2023 01:41:15 Influenza, split virus, trivalent, PF 4 completed Not Available [facility] 03/06/2023 01:41:15 Past Encounters Encounter ID Performer Location Encounter Start Date Encounter Closed Date Diagnosis/Indication Diagnosis SNOMED-CT Code Diagnosis ICD10 Code Diagnosis Note [id number] [facility] Pulmonolo gy [address] [address] 07/16/2020 00:00:00 07/16/2020 14:18:07 [id number] [facility] Internal Med [address] [address] 08/09/2020 00:00:00 08/15/2020 09:49:27 [id number] [facility] Pulmon[facility] [address], [place] [address] 0 08/13/2020 00:00:00 08/13/2020 16:20:54 [id number] _[facility] IGRATION_ DEFAULT_1 _1 , 09/16/2020 00:00:00 09/16/2020 16:20:03 [id number] [facility] [address] [address] 10/13/2020 00:00:00 10/23/2020 13:49:34 [id number] [facility] [address] [address] 1 10/15/2020 00:00:00 10/31/2020 11:28:19 [id number] [facility] [address], [address] [address] 10/20/2020 00:00:00 11/07/2020 15:45:45 [id number] [facility] [address] [address] 1 10/27/2020 00:00:00 10/31/2020 20:47:32 [id number] [facility] [address] [address] 1 11/08/2020 00:00:00 11/08/2020 21:55:16 [id number] [facility] [address] [address] 1 12/02/2020 00:00:00 12/05/2020 10:36:38 [id number] [facility] [place] [address] [facility], [address] [place] [address] 12/06/2020 00:00:00 12/10/2020 17:55:37 [id number] [facility] Ortho [place] [address] [place] [address] 12/23/2020 00:00:00 01/10/2021 12:19:09 [id number] [facility] Pod[facility] [place] [address] [facility], [facility] 4 [place] [address] 12/28/2020 00:00:00 12/28/2020 11:55:42 [id number] [facility] [address] [address] 01/03/2021 00:00:00 01/23/2021 21:03:16 [id number] _ATHENA_M IGRATION_ DEFAULT_1 _1 , 01/06/2021 00:00:00 01/06/2021 14:34:46 [id number] [facility] [place] [address] [facility], [facility] 4 [place] [address] 01/20/2021 00:00:00 01/27/2021 10:11:52 [id number] [facility] [place] [address] [facility], [address] [address] 01/27/2021 00:00:00 01/27/2021 10:12:30 [id number] [facility] [place] [address] [place] [address] 01/31/2021 00:00:00 01/31/2021 16:24:45 [id number] [facility] [address] [address] 03/11/2021 00:00:00 03/11/2021 21:59:34 [id number] _ATHENA_M IGRATION_ DEFAULT_1 _1 , 03/24/2021 00:00:00 03/24/2021 14:54:01 [id number] [facility] [place] [address] [place] [address] 04/14/2021 00:00:00 04/14/2021 17:05:22 [id number] [facility] [place] [address], [address] [place] [address] 04/21/2021 00:00:00 08/09/2021 11:13:05 [id number] [facility] [place] [address] [place] [address] 06/20/2021 00:00:00 06/20/2021 16:32:20 [id number] [facility] [place] [address] [place] [address] Ave[address] [address] 07/13/2021 00:00:00 07/31/2021 12:48:38 [id number] [facility] [place] [address] [address] 09/02/2021 00:00:00 09/02/2021 16:42:18 [id number] [facility] [place] [address], [address] [place] [address] 09/15/2021 00:00:00 09/15/2021 22:07:10 [id number] _ATHENA_M IGRATION_ DEFAULT_1 _1 , 09/29/2021 00:00:00 09/29/2021 21:48:28 [id number] [facility] [place] [address] [place] [address] 10/18/2021 00:00:00 10/18/2021 15:48:28 [id number] [facility] [place] [address] [place] [address] Ave[address] [address] 11/04/2021 00:00:00 11/06/2021 13:27:51 [id number] [facility] [place] [address] [address] 12/26/2021 00:00:00 12/27/2021 20:56:57 [id number] [facility] [place] [address], [address] [place] [address] 01/12/2022 00:00:00 01/12/2022 15:12:52 [id number] [facility] [place] [address], [address] [place] [address] 02/16/2022 00:00:00 02/16/2022 15:47:21 [id number] [facility] [address] [place] [address] Ave., [facility] 15 [place] [address] 02/20/2022 00:00:00 02/20/2022 22:12:12 [id number] [facility] [address] [place] [address] Ave., [facility] 15 [place] [address] 03/09/2022 00:00:00 04/08/2022 10:41:44 [id number] [facility] [address] [place] [address] Ave., [facility] 15 [place] [address] 03/29/2022 00:00:00 04/02/2022 15:54:07 [id number] [facility] [place] [address] [place] [address] 04/19/2022 00:00:00 04/19/2022 16:59:07 [id number] [facility] [place] [address] [place] [address] 06/19/2022 00:00:00 06/19/2022 16:14:09 [id number] [facility] [address] [place] [address] Ave., [facility] 15 [place] [address] 06/28/2022 00:00:00 07/02/2022 14:26:40 [id number] Jackie Orlando SENIOR CLINICAL PROJECT MANAGER- [facility] [place] [address] [place] [address] 07/19/2022 10:37:21 07/20/2022 08:46:40 Chronic obstructive pulmonary disease 92355878 J44.9 PFT in 09/2018 through [facility] in chart with ratio 109%, FEV1 97%. TLC 93%, DLCO 101.Repeat ed PFT and 6 [facility] walk in [facility], need records He had a syncopal [...] ight loss Obstructiv e sleep apnea syndrome 63537721 G47.33 Not compliant with PAP therapyDis cussed the risk of uncorrecte d ALLA, including Ex-cigarette smoker 2810 12287 Z87.891 Quit over 25 years ago [id number] Georgia Story MD [facility] [place] [address] [place] [address] 08/07/2022 14:12:52 08/07/2022 15:27:21 Uncontrolled type 2 diabetes mellitus 708868361 E11.65 a1c 8.2% up from 7% range- [...] Recommende d patient to utilize the diabetesfo [employer] from the ADA website to help with food preparatio n as this presents ideal carb content per meal so this will make carb counting much easier for patient. Recommende d he incorporat e natural insulin dress marker s such as pears, apples, cinnamon, thu and sweet potatoes to help mobilize his endogenous insulin. Recommende d up to 150 minutes of moderate level activity/e xercise weekly. Hypothyroidism 09670757 E03.9 TSH and FT4 in range- continue on LT4 75 mcg daily. Mixed hyperlipidemia 267 662174 E78.2 Continue statin and icosapent fish oil [...] he chooses to go outside of the [facility] system to obtain labwork he was [...] in his case. He voiced understand ing. [id number] Turner Johnson DPM [facility] [address], [address] [place] [address] 08/31/2022 16:56:44 09/04/2022 15:43:36 Bunion 233849381 M21.611 Worse to the right footoffloa ding pad dispensedc ontinue accommodat john inserts with diabetic style shoeFollow -up as needed [id number] Jackie Orlando, SENIOR CLINICAL PROJECT MANAGER- [facility] [place] [address] [place] [address] 09/18/2022 10:12:00 09/18/2022 11:49:13 Dyspnea on exertion 70421602 R06.09 PFT in 09/2018 through [facility] in chart with ratio 109%, FEV1 97%.TLC 93%, DLCO 101.Repeat ed PFT and 6 minute walk in [facility], need recordsHe had a syncopal episode during latest PFT testing 03/30/22 but he was able to complete initial lung volumes. He had normal ratio and WXZ3Oawp with normal lung volumesCBC and IGE levels WNLCXR 03/2021 WNL.Methac holine challenge completed 05/12/22 - negativeDC incruse ElliptaCon tinue Albuterol PRNInstruc yue on techniqueM ultifactor alCT chest with no evidence of ILDIncreas e activityWe ight loss Obstructiv e sleep apnea syndrome 31102498 G47.33 Not compliant with PAP therapyDis cussed the risk of uncorrecte d ALLA, including Ex-cigarette smoker 2810 95611 Z87.891 Quit over 25 years agoNot a candidate for LDCTCT as above [id number] Mina Wilson MD [facility] Internal Med [place] [address]43 [facility], [address] [place] [address] 09/27/2022 13:39:35 09/27/2022 15:26:47 Pain of left hip joint [id number] 10527 M25.552 Type 2 darren betes mellitus 81554490 E11.9 Essential hypertension 28887549 I10 Hypercholesterolemia 136 91402 E78.00 [id number] Jackie Orlando, SENIOR CLINICAL PROJECT MANAGER-[facility] [place] [address] [place] [address] 11/01/2022 11:39:44 11/01/2022 14:09:57 Dyspnea on exertion 34595044 R06.09 Multifacto ralCT chest with no evidence of ILDPFT in 09/2018 through [facility] in chart with ratio 109%, FEV1 97%.TLC 93%, DLCO 101.Repeat ed PFT and [address], need recordsHe had a syncopal episode during latest PFT testing 03/30/22 but he was able to complete initial lung volumes. He had normal ratio and BZA5Pywm with normal lung volumesCBC and IGE levels WNLCXR 03/2021 WNL.Methac holine challenge completed 05/12/22 - negativeIn crease activityWe ight loss Obstructiv e sleep apnea syndrome 35191200 G47.33 Not compliant with PAP therapyHe agrees to restudyHe is unable to set up the home study equipment by himself, order for in-lab study Ex-cigarette smoker 2810 53779 Z87.891 Quit over 25 years ago [id number] Georgia Story MD [facility] [place] [place] [address] [place] [address] 12/11/2022 13:21:45 12/11/2022 14:33:42 Well controlled type 2 diabetes mellitus 229765170 E11.9 A1C of 5.9% down from 8.2%- continue on jardiance 25 mg daily, glimepirid e scale, pioglitazo ne 30 mg daily and januvia 50 mg daily. Discussed carb counting and how to read food labels. Recommende d patient to utilize the diabetesfo [employer] from the ADA website to help with food preparatio n as this presents ideal carb content per meal so this will make carb counting much easier for patient. Recommende d he incorporat e natural insulin dress marker s such as pears, apples, cinnamon, thu and sweet potatoes to help mobilize his endogenous insulin. Recommende d up to 150 minutes of moderate level activity/e xercise weekly. Hypothyroidism 10786385 E03.9 TSH and FT4 in low range- continue on LT4 88 mcg daily. Mixed hyperlipidemia 267 148529 E78.2 Continue statin and icosapent fish oil [...] answered and refills necessary at visit today. [id number] Mina Wilson MD [facility] [place] [address], [address] [place] [address] 12/29/2022 11:25:05 12/29/2022 12:14:17 Mixed hyperlipidemia 986034192 E78.2 Essential hypertension 70917592 I10 Hypothyroidism 15807218 E03.9 Diabetes mellitus 840303 09 E11.9 [id number] Turner Johnson DPM [facility] Podiatry [place] [address] [facility], [address] [place] [address] 03/06/2023 13:52:06 03/06/2023 14:09:03 Bunion 142745633 M21.611 Worse to the right footoffloa ding silicone offloading spacer dispensedc ontinue accommodat john inserts with diabetic style shoeFollow -up 3 months if not improved will likely schedule arthrodesi s of 1st metatarsop halangeal joint for bunion correction [place] of toe 26342399 L84 right 2nd toemonitor for wound infection and presents seek medical attention immediatel y [id number] Mina Wilson MD [facility] [address] [facility] [address] [place] [address] 03/20/2023 09:44:51 03/20/2023 10:29:41 Upper respiratory infection 41169952 J06.9 Type 2 darren betes mellitus 98875488 E11.9 Essential hypertension 06937709 I10 Hypercholesterolemia 136 70870 E78.00 Hypothyroidism 02486858 E03.9 [id number] Jackie Orlando, SENIOR CLINICAL PROJECT MANAGER-[facility] [place] [address] [place] [address] 03/26/2023 11:27:32 03/26/2023 14:03:17 Dyspnea on exertion 45832403 R06.09 Multifacto ral and improvedCT chest with no evidence of ILDPFT in 09/2018 through [facility] in chart with ratio 109%, FEV1 97%.TLC 93%, DLCO 101.Repeat ed PFT and [address], need recordsHe had a syncopal episode during latest PFT testing 03/30/22 but he was able to complete initial lung volumes. He had normal ratio and GLF4Zrwi with normal lung volumesCBC and IGE levels WNLCXR 03/2021 WNL.Methac holine challenge completed 05/12/22 - negativeIn crease activityWe ight loss Obstructiv e sleep apnea syndrome 79914437 G47.33 Not compliant with PAP therapyPos itive sleep study 12/2022 with AHI 5 and desaturati ons to 81%Discuss ed in detail with Mr Jose Carlos.He remains uninterest ed in PAP therapy.Di scussed the risks of uncorrecte d ALLA, including Ex-cigarette smoker 2810 92835 Z87.891 Quit over 25 years ago [id number] Mina Wilson MD [facility] [address] [facility], [facility] 15 [place] [address] 04/17/2023 10:19:32 04/17/2023 12:29:26 Hypercholesterolemia 69179800 E78.00 Hypothyroidism 72442167 E03.9 [id number] Turner Johnson DPM [facility] [place] [address], [facility] [place] [address] 06/14/2023 13:50:43 06/14/2023 15:21:55 Bunion 571337343 M21.611 Worse to the right footoffloa ding silicone offloading spacer dispensedo btain surgical clearancew ill plan chevron osteotomy for quicker healing time and ability to weight bear [place] of toe 23678507 L84 right 2nd toemonitor for wound infection and presents seek medical attention immediatel y [id number] Turner Johnson DPM [facility] [place] [address], [address] [address] 06/03/2024 09:24:46 06/09/2024 11:39:46 Type 2 diabetes mellitus 59678985 E11.9 cont dm control per pcp/ endocrinol ogy Bunion 738107504 M21.61 1 Worse to the right footoffloa ding silicone offloading spacer dispensedo btain surgical clearancew ill plan chevron osteotomy for quicker healing time and ability to weight bear Diabetic p eripheral neuropathy 684329007 E11.40 cont dm shoe gear and insolesmon itor feet daily Health Concerns Section Related Observation LastModified by Organization Detai ls LastModified Time None Recorded Concern Status LastModified by Organization Details LastModified Time None Recorded Advance Directives Directive Y: Brother is POA Payers Encounter Date Sequence Insurance Name Policy Number Policy Álvarez Covered Member ID Álvarez Member ID Guarantor Name 03/20/2023 1 [facility] (MEDICARE REPLACEMENT/AD VANTAGE - PPO) [id number] Reji Branch [id number] Reji Branch 03/20/2023 2 [place] MED[place]ARE OR MEDICARE REPLACEMENT PRIMARY) Reji Branch [id number] Reji Branch 03/26/2023 1 [facility] (MEDICARE REPLACEMENT/AD VANTAGE - PPO) [id number] Reji Branch [id number] Reji Branch 03/26/2023 2 [place] REPLACEMENT PRIMARY) Reji Branch [id number] Reji Branch 04/17/2023 1 [facility] (MEDICARE REPLACEMENT/AD VANTAGE - PPO) [id number] Reji Branch [id number] Reji Branch 04/17/2023 2 [place] OR [place]ICARE REPLACEMENT PRIMARY) Reji Branch [id number] Reji Branch 06/14/2023 1 [facility] (MEDICARE REPLACEMENT/AD VANTAGE - PPO) [id number] Reji Branch [id number] Reji Branch 06/14/2023 2 [place] OR [place]ICARE REPLACEMENT PRIMARY) Reji Branch [id number] Reji Branch 06/03/2024 1 [facility] (MEDICARE REPLACEMENT/AD VANTAGE - PPO) [id number] Reji Branch [id number] Reji Branch 06/03/2024 2 [place] OR [place]ICARE REPLACEMENT PRIMARY) Reji Branch [id number] Reji Branch Notes Date Note Type Note Provider Name and Address Organization Details Recorded Time 03/20/2023 text/html ABDs no polyphag ia no polydipsia hypertension denies headache or dizziness hyperlipidemia could do better on losing weight hypothyroid no heat or cold intolerance does have a respiratory infection Mina Wilson MD [address] [place] [address], [place], [address], [employer] 03/23/2023 18:18:39 03/26/2023 text/html Mr Jose Carlos [...] is restless, he endorses nocturia Jackie Orlando, SENIOR CLINICAL PROJECT MANAGER-[facility] [address] [facility], [place], [address], [facility] 03/26/2023 13:38:39 04/17/2023 text/html ER again for 1 o f his spells Mina Wilson MD [address] [place] [address], [place], [address], [facility] 04/21/2023 11:21:46 06/14/2023 text/html Patient returns for surgery of the right foot- states he got clearnce but never informed the office. Will need updated H and P clearance and will schedule right bunion surgery due to cont pain of the foot. denies any wounds but has a painful corn to the medial 2nd toe. disp a silicone toe spacer. Turner Johnson DPM [address] [place] [address], [place], [address], [employer] [facility] [employer] 06/14/2023 15:01:13 06/03/2024 text/html Patient is a [...] options with the patient. Turner Johnson DPM [address] [facility], [facility], [place], [address], [place] [facility] 06/03/2024 13:40:02
--- OUTSIDE RECORDS SUMMARY | 2024-09-08 21:33 | XMS_ITS | Clinical Summary ---
Author Organization [facility] Address [address] [place] [address] Phone Care Team Providers Care Industrial Pipefitter Journeyman Name Role Phone Sergey Wislon MD Primary Care Provider Allergies No known active allergies Medications divalproex [...] after that. 20 Tablet 04/18/2021 9:21 PM SEXTON HELPER 04/18/2021 Active doxycycline hyclate (VIBRAMYCIN) 100 mg tablet Take 1 Tablet (100 mg) by mouth 2 times daily. 14 Tablet 04/18/2021 9:21 PM SEXTON HELPER 04/18/2021 Active Social History Tobacco Use Types Packs/Day Years Used Date Smoking Tobacco: Former Smokeless Tobacco: Never Sex and Gender Information Value Date Recorded Sex Assigned at Not on file Legal Sex Male 3:08 PM S[employer]ON HELPER Gender Identity Not on file Sexual Orientation Not on file Last Filed Vital Signs Vital Sign Reading Time Taken Comments Blood Pressure 113/75 04/18/2021 8:00 PM SEXTON HELPER Pulse 78 04/18/2021 8:00 PM SEXTON HELPER Temperature 36.9 C (98.4 F) 04/18/2021 3:26 PM SEXTON HELPER Respiratory Rate 18 04/18/2021 7:08 PM SEXTON HELPER Oxygen Saturation 95% 04/18/2021 8:00 PM SEXTON HELPER Inhaled Oxygen Concentration - - Weight 104.3 kg (230 lb) 04/18/2021 3:26 PM SEXTON HELPER Height 177.8 cm (5' 10 ) 04/18/2021 3:26 PM SEXTON HELPER Body Mass Index 33 04/18/2021 3:26 PM SEXTON HELPER Plan of Treatment Health Maintenance Due Date Last Done Comments DIABETES ANNUAL FOOT EXAM 02/23/1982 DIABETES ANNUAL RETINAL EXAM 02/23/1982 DIABETES MICROALBUMIN ANNUAL SCREEN 02/23/1982 LDL CHOLESTEROL ANNUAL 02/23/1982 DTAP/TDAP/TD VACCINES (1 - Tdap) 02/23/1983 FIT-DNA Q 3 years 02/23/2009 FIT/FOBT Q 1 year 02/23/2009 Flex Sig/CT Colonography Q 5 years 02/23/2009 ZOSTER VACCINE (1 of 2) 02/23/2014 DIABETES HBA1C Q 6 MONTHS 09/12/2021 03/15/2021 INFLUENZA VACCINE (#1) 2023 1, 02/25/2020, 02/18/2020, Additional history exists RSV VACCINE (60+ or ) (1 - Risk 60-74 years 1-dose series) 2024 COLORECTAL SCREENING 01/21/2025 01/21/2015 Colorectal Cancer Screening 01/21/2025 HEPATITIS B VACCINES Aged Out No long er eligible based on patient's age to complete this topic Insurance MEDICAID [place] RX [employer] RX Member Subscriber Plan / Payer (Ef fective for All Dates) Name:Dennis Branch Relation to Subscriber:Self Name:Dennis Branch Subscriber ID:Not on file Payer ID:Not on file Group ID:[id number] Type:RX Medicare Part D Address: [place] Care Teams Industrial Pipefitter Journeyman Relationship Specialty [place] [address] [place] [phone] PCP - General Internal Medicine 04/18/21
--- OUTSIDE RECORDS SUMMARY | 2024-09-08 21:34 | XMS_ITS | Data Portability ---
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 Hypothyroid no heat or cold intolerance GERD has been doing stable diabetes no hypoglycemia Follow up in Neurology advised to get appropriate immunizations follow up with me in 3 months [email or web address] Not available 03/02/2024 18:29:36 03/11/2024 03/11/2024 anuel-tape linn montelongo get x-ray healthy lifestyle care instructions CMP lipid A1c follow up 2-3 months he still sees Neurology for his ongoing neurological issues [email or web address] Not available 03/11/2024 13:32:53 04/23/2024 04/23/2024 Keflex t.i.d. 50 0 mg 10 days he does not improve he will call back [email or web address] Not available 04/26/2024 15:00:38 06/18/2024 06/18/2024 doxycycline 100 b.i.d. 1 week he can not tolerate the compression socks he will keep his regular follow up but let me know how he is doing after he is done with the antibiotics [email or web address] Not available 06/22/2024 17:01:41 08/20/2024 08/20/2024 We will continue current therapy personally I would like to refer him to S but he is not going to do that right now ER record has been reviewed I would like to see him back in 3 months very difficult situation he is going to chronic encephalomalacia recurrent syncope with negative workup for the most part and he has been evaluated by Neurology and Cardiology multiple times [email or web address] Not available 08/30/2024 17:53:00 Plan of Treatment Reminders Order Date Submit Date Provider Last Modified By Organization Details Last Modified Time Details Appointments ANY 15 2024 10:15A M Mina Wilson MD Not available Not available Not available Lab None recorded. Referral None recorded. Procedures None recorded. Surgeries None recorded. Imaging XR, finger(s) 2023 024 [facility] ([facility]), [address] [place], [address], 03/11/2024 14:40:53 Medication Orders doxycycli ne hyclate 100 mg tablet 2024 025 [id number], [address] [place], [place], [id number], 08/07/2024 09:49:12 cephalexi n 500 mg capsule 2023 025 [facility] #89642, [address] [place], [place], [id number], 06/18/2024 16:57:13 Patient TargetsNo targets recorded. Patient Instructions Encounter Date Encounter Id Patient Instructions Last Modified By Organization Details Last Modified Time 02/05/2024 [id number] A healthy lifestyle: care instructions [email or web address] Not available 03/02/2024 18:29:51 03/11/2024 [id number] A healthy lifestyle: care instructions [email or web address] Not available 03/11/2024 12:48:21 06/18/2024 [id number] A healthy lifestyle: care instructions [email or web address] Not available 06/18/2024 18:02:36 08/20/2024 [id number] A healthy lifestyle: care instructions [email or web address] Not available 08/20/2024 15:31:28 Reason for Referral None Reported. Results Created Date Observation Date Name Description Value Unit Range Abnormal Flag Note LastModifiedBy Organization Detail LastModifiedTime 04/17/2004/17/2024 Prost ate speci fic Ag [Mass /volu me] in Serum or Plasm a PSA medicare screen PSA medic are scree n Not Available Not Available 06/25/2024 16:41:09 04/17/20 24 04/17/2024 Lipid 1995 panel - Serum or Plasm a cholesterol low zenon stero l Not Available Not Available 06/25/2024 16:41:09 04/17/20 24 04/17/2024 Lipid 1995 panel - Serum or Plasm a triglyceride s high trigl yceri rajeev Not Available Not Available 06/25/2024 16:41:09 04/17/20 24 04/17/2024 Lipid 1996 panel - Serum or Plasm a HDL [...] 1999 panel - Serum or Plasm a BUN [...] 06/25/2024 16:41:09 04/17/20 24 04/17/2024 Compr ehens amdi metab olic 2000 panel - Serum or [...] 07/10/2024 19:55:14 07/10/19 25 07/10/2024 Compr ehens amdi metab olic 1999 panel - Serum or [...] Not Available 07/10/2024 19:55:14 07/10/19 25 07/10/2024 [facility] 1999 panel - Serum or Plasm a creatinine [mass/volume ] in serum or plasma 0.76 mg/dL low: 0.66mg /dLhig h: 1.25mg /dL normal Not Available Not Available 07/10/2024 19:55:14 07/10/19 25 07/10/2024 [place] [address] panel - Serum or Plasm a glomerular filtration rate/1.73 sq M.predicted [volume rate/area] in serum, plasma or blood >60 normal Not Available Not Available 06/15 19:55:14 07/10/19 25 07/10/2024 [place] [address] panel - Serum or Plasm a alkaline phosphatase [enzymatic activity/vol ume] in serum or plasma 96 U/L low: 38U/Lh igh: 126U/L normal Not Available Not Available 07/10/2024 19:55:14 07/10/19 25 07/10/2024 [place] [address] panel - Serum or Plasm a alanine aminotransfe rase [enzymatic activity/vol ume] in serum or plasma 32 U/L low: 0U/Lhi gh: 50U/L normal Not Available Not Available 07/10/2024 19:55:14 07/10/19 25 07/10/2024 [facility] [place] [address] panel - Serum or Plasm a aspartate aminotransfe rase [enzymatic activity/vol ume] in serum or plasma 64 U/L low: 15U/Lh igh: 46U/L high Not Available Not Available 07/10/2024 19:55:14 07/10/19 25 07/10/2024 [place] [address] panel - Serum or Plasm a bilirubin.to aggie [mass/volume ] in serum or plasma 0.8 mg/dL low: 0.2mg/ dLhigh : 1.3mg/ dL normal Not Available Not Available 07/10/2024 19:55:14 07/10/19 25 07/10/2024 [facility] 1999 panel - Serum or Plasm a calcium [mass/volume ] in serum or plasma 9.5 mg/dL low: 8.4mg/ dLhigh : 10.2mg /dL normal Not Available Not Available 07/10/2024 19:55:14 07/10/19 25 07/10/2024 [facility] 1999 panel - Serum or Plasm a protein [mass/volume ] in serum or plasma 6.7 g/dL low: 6.3g/d Lhigh: 8.2g/d L normal Not Available Not Available 07/10/2024 19:55:14 07/10/19 25 07/10/2024 [facility] 1999 panel - Serum or Plasm a albumin [mass/volume ] in serum or plasma 4.1 g/dL low: 3.4g/d Lhigh: 5g/dL normal Not Available Not Available 07/10/2024 19:55:14 07/10/19 25 07/10/2024 [facility] 1999 panel - Serum or Plasm a globulin [mass/volume ] in serum 2.6 g/dL low: 2.6g/d Lhigh: 4.2g/d L normal Not Available Not Available 07/10/2024 19:55:14 07/10/19 25 07/10/2024 [facility] [place] [address] panel - Serum or Plasm a albumin/glob [...] normal Not Available Not Available 07/10/2024 19:55:13 07/10/1907/10/2024 CBC W Auto Diffe [place] panel - Blood hemoglobin [mass/volume ] in blood 14.6 g/dL low: 13.2g/ dLhigh : 17g/dL normal Not Available Not Available 07/10/2024 19:55:13 07/10/19 25 07/10/2024 CBC W Auto Diffe [place] panel - Blood hematocrit [volume fraction] of blood by automated count 42.5 % low: 39.3%h igh: 50% normal Not Available Not Available 07/10/2024 19:55:13 07/10/1907/10/2024 CBC W Auto Diffe [place] panel - Blood MCV [entitic volume] by automated count 96.4 fL low: 80fLhi gh: 97fL normal Not Available Not Available 07/10/2024 19:55:13 07/10/19 25 07/10/2024 CBC W Auto Diffe [place] panel - Blood MCH [entitic mass] by automated count 33.1 pg low: 27pghi gh: 33pg high Not Available Not Available 07/10/2024 19:55:13 07/10/1907/10/2024 CBC W Auto Diffe [place] panel - Blood MCHC [mass/volume ] by automated count 34.4 g/dL low: 31g/dL high: 36g/dL normal Not Available Not Available 07/10/2024 19:55:13 07/10/19 25 07/10/2024 CBC W Auto Diffe [place] panel - Blood erythrocyte distribution width [ratio] 13.4 % low: 11.8%h igh: 15.5% normal Not Available Not Available 07/10/2024 19:55:13 07/10/1907/10/2024 CBC W Auto Diffsergey manning panel - Blood platelets [#/volume] in [...] normal Not Available Not Available 07/10/2024 19:55:13 07/10/1907/10/2024 CBC W Auto Diffe renti al panel - Blood eosinophils [#/volume] in blood 1.5 % low: 1%high : 7% normal Not Available Not Available 07/10/2024 19:55:13 07/10/1907/10/2024 CBC W Auto Diffe renti al panel [...] Not Available 07/26/2024 19:12:04 07/27/19 25 07/26/2024 Tropo [place] I.car diac [Mass /volu me] [...] Available 07/26/2024 19:12:04 07/27/19 25 07/26/2024 Compr ens madi metab [facility] 1999 panel - Serum or Plasm a anion gap in serum or plasma 9.7 mmol/ L low: 14mmol /Lhigh : 22mmol /L low Not Available Not Available 07/26/2024 19:12:04 07/27/19 25 07/26/2024 [facility] 1999 panel - Serum or Plasm a glucose [mass/volume ] in serum or plasma 155 mg/dL low: 70mg/d Lhigh: 99mg/d L high Not Available Not Available 07/26/2024 19:12:04 07/27/19 25 07/26/2024 [facility] [employer] [facility] [employer] [facility] 1999 panel - Serum or Plasm a urea nitrogen [mass or moles/volume ] in serum or plasma 17 mg/dL low: 8mg/dL high: 19mg/d L normal Not Available Not Available 07/26/2024 19:12:04 07/27/19 25 07/26/2024 [facility] [employer] [facility] 1999 panel - Serum or Plasm a creatinine [mass/volume ] in serum or plasma 0.85 mg/dL low: 0.66mg /dLhig h: 1.25mg /dL normal Not Available Not Available 07/26/2024 19:12:04 07/27/19 25 07/26/2024 [facility] [employer] [facility] 1999 panel - Serum or Plasm a glomerular filtration rate/1.73 sq M.predicted [volume rate/area] in serum, plasma or blood >60 normal Not Available Not Available 07/12 19:12:04 07/27/19 25 07/26/2024 [facility] [employer] [facility] [employer] [facility] 1999 panel - Serum or Plasm a alkaline phosphatase [enzymatic activity/vol ume] in serum or plasma 75 U/L low: 38U/Lh igh: 126U/L normal Not Available Not Available 07/26/2024 19:12:04 07/27/19 25 07/26/2024 [facility] [employer] [facility] 1999 panel - Serum or Plasm a alanine aminotransfe rase [enzymatic activity/vol ume] in serum or plasma 34 U/L low: 0U/Lhi gh: 50U/L normal Not Available Not Available 07/26/2024 19:12:04 07/27/19 25 07/26/2024 [facility] 1999 panel - Serum or Plasm a aspartate aminotransfe rase [enzymatic activity/vol ume] in serum or plasma 67 U/L low: 15U/Lh igh: 46U/L high Not Available Not Available 07/26/2024 19:12:04 07/27/19 25 07/26/2024 [facility] [employer] [facility] 1999 panel - Serum or Plasm a bilirubin.to aggie [mass/volume ] in serum or plasma 0.6 mg/dL low: 0.2mg/ dLhigh : 1.3mg/ dL normal Not Available Not Available 07/26/2024 19:12:04 07/27/19 25 07/26/2024 [facility] [employer] [facility] 1999 panel - Serum or Plasm a calcium [mass/volume ] in serum or plasma 8.9 mg/dL low: 8.4mg/ dLhigh : 10.2mg /dL normal Not Available Not Available 07/26/2024 19:12:04 07/27/19 25 07/26/2024 [facility] [employer] 1999 panel - Serum or Plasm a protein [mass/volume ] in serum or plasma 7.1 g/dL low: 6.3g/d Lhigh: 8.2g/d L normal Not Available Not Available 07/26/2024 19:12:04 07/27/19 25 07/26/2024 [facility] [employer] 1999 panel - Serum or Plasm a albumin [mass/volume ] in serum or plasma 4.2 g/dL low: 3.4g/d Lhigh: 5g/dL normal Not Available Not Available 07/26/2024 19:12:04 07/27/19 25 07/26/2024 [facility] [employer] [facility] 2000 panel - Serum or Plasm a globulin [mass/volume ] in serum 2.9 g/dL low: 2.6g/d Lhigh: 4.2g/d L normal Not Available Not Available 07/26/2024 19:12:04 07/27/19 25 07/26/2024 Compr ehens madi metab olic 2000 panel - Serum or Plasm a albumin/glob [...] normal Not Available Not Available 07/27/19 19:12:04 02/04/20 24 02/04/2024 XR, chest No observ ation record ed. [email or web address] [facility] [address] [place], [address], 02/05/2024 10:58:15 02/04/20 24 02/04/2024 CT, head, w/o contr ast No observ ation record ed. [address] [place], [address], 02/05/2024 16:28:44 03/11/20 24 03/11/2024 XR, finge r(s) No observ [facility]ion record ed. [facility] [address] [place], [address], 03/12/2024 12:49:50 03/24/20 24 03/24/2024 XR, chest No observ ation record ed. [facility] [address] [place], [address], 03/26/2024 10:32:09 03/24/20 24 03/24/2024 CT, head, w/o contr ast No observ ation record ed. [facility] [address] [place], [address], 03/26/2024 10:32:49 04/17/20 24 04/17/2024 XR, finge r(s) No observ [facility]ion record ed. [facility] [address] [place], [address], 04/20/2024 22:27:04 04/17/20 24 04/17/2024 XR, hip + pelvi s, bilat eral, 3 or 4 view No observ ation record ed. [facility] [address] [place], [address], 04/21/2024 09:25:59 04/17/20 24 04/17/2024 XR, cervi ángela spine , 4 or 5 view No observ ation record ed. [facility] [address] [place], [address], 04/21/2024 09:26:52 05/16/19 25 05/16/2024 XR, chest No observ ation record ed. [email or web address] [facility] [address], [place], [address], 05/20/2024 17:33:44 07/10/19 25 07/10/2024 XR, chest No observ ation record ed. [email or web address] [facility] [address] [place], [address], 07/11/2024 09:04:53 07/27/19 25 07/26/2024 XR, chest No observ ation record ed. [email or web address] [facility] [address] [place], [address], 07/30/2024 17:19:22 07/31/19 25 07/29/2024 US, echo ardio gram No observ ation record ed. [facility] [address] [facility] [address], [facility] [place], [address], 07/31/2024 12:22:52 Result Notes None recorded. Problems Name Problem SNOMED Code Status Onset Date Resolution Date Notes Provider Name and Address Organization Details Recorded Time Type 2 diabetes mellitus without complication 147230597 Active 2023 Mina Wilson MD Attn: Francisco yanez,[address], [place], [address], [place] [facility] 4 22:18:13 Upper respiratory infection 53227290 Active 2023 Mina Wilson MD Attn: Francisco yanez,[address], [place], [address], [place] [facility] 4 22:18:15 Essential hypertension 05273520 Active 2023 Mina Wilson MD Attn: Vipinmiguel yanez,[address] [facility], [place], [address], [place] [facility] 22:18:16 Hyperlipidemia 55119175 Active 2023 Mina Wilson MD Attn: Vipinmiguel yanez,[address] [facility], [place], [address], [place] [facility] 4 22:18:18 Mixed anxiety and depressive disorder 725778744 Active 2023 Mina Wilson MD Attn: Vipinmiguel yanez,[address] [facility], [place], [address], [place] [facility] 4 22:18:20 Vitamin D below reference range 465049177 Active 2023 Mina Wilson MD Attn: Francisco beau,[address] [facility], [place], [address], [place] [facility] 4 22:18:21 Hypothyroidism 73239464 Active 2023 Mina Wilson MD Attn: Francisco beau,[address] [facility], [place], [address], [place] [facility] 4 22:18:23 Notes:Some problems listed i n Documents: #[id number], #[id number] could not be added to this patient's chart. Please review these documents and add these problems to the patient's chart manually as needed. Problem Notes None recorded. Procedures Surgical History Date Name Laterality Status Provider Name and Address Organization Details Recorded Time Eye Surgery completed Thea Clark MA [facility] 08/03/2023 13:14:13 Pacemaker completed Thea Clark MA [facility] 08/03/2023 13:14:21 Imaging Results Imaging Date Name Status LastModified by Organization Details LastModified Time 02/04/2024 XR, chest completed [address] [place], [address], 02/05/2024 10:58:15 02/04/2024 CT, head, w/o contrast completed [address] [place], [address], 02/05/2024 16:28:44 03/11/2024 XR, finger(s) completed [facility] [address] [place], [address], 03/12/2024 12:49:50 03/24/2024 XR, chest completed [facility] [address] [place], [address], 03/26/2024 10:32:09 03/24/2024 CT, head, w/o contrast completed [facility] [address] [place], [address], 03/26/2024 10:32:49 04/17/2024 XR, finger(s) completed [facility] [address] [place], [address], 04/20/2024 22:27:04 04/17/2024 XR, hip + pelvis, bilateral, 3 or 4 view completed [facility] [address] [place], [address], 04/21/2024 09:25:59 04/17/2024 XR, cervical spine, 4 or 5 view completed [facility] [address] [place], [address], 04/21/2024 09:26:52 05/16/2024 XR, chest completed [email or web address] [facility] [address], [place], [address], 05/20/2024 17:33:44 07/10/2024 XR, chest completed [email or web address] [facility] [address] [place], [address], 07/11/2024 09:04:53 07/26/2024 XR, chest completed [email or web address] [facility] [address] [place], [address], 07/30/2024 17:19:22 07/29/2024 US, echocardiogram completed [facility] [address] [facility] [address], [place], [address], 07/31/2024 12:22:52 Procedure Notes None recorded. Medical Equipment None Reported. Allergies Allergen ID Allergen Name Allergen Category Reaction Reaction Severity Criticality Documentation Date Start Date Code Code System Note Provider Name and Address Organization Details Recorded Time 18250911 carbamaze pine medicatio n Not available Not available low 06/18/20242020 RxNorm unrec ogniz ed react ion (text : Flush ing (skin ), code: 25147 0007) (from exter [facility] sour [facility]) Not Available Not Available Not Available 18250912 metformin medicatio n other Not available low 06/18/20242020 6809 RxNorm Not Available Not Available Not Available 18250913 phenobarb ital medicatio n Not available Not available Not available 06/18/20242020 8134 RxNorm unrec ogniz ed react ion (text : Unkno wn, code: 50274 5006) (from exter nal sourc e) Not [...] TAKE 1 TABLET BY MOUTH EVERY MORNING 2024 active Not Available Not Available Not Avai lable enalapril maleate 5 mg tablet TAKE 1 [...] Not Available Not Available No t Available famotidine 40 mg tablet TAKE 1 TABLET BY [...] completed Not Available Not Available Not Available TrelliseTouch Ultra Test strips USE TO TEST TWICE [...] omeprazole 20 mg capsule,del ayed release TAKE 1 CAPSULE BY MOUTH EVERY DAY active Not Available [...] No t Available doxycycline hyclate 100 mg tablet TAKE 1 [...] Updated DateTime 4 175.26 cm 33.2 kg/m2 398238. 28 g 97 % 97 % 81 /min 108 mm[Hg] 66 mm[Hg] Jesus Mcclain [place] [facility] 4 10:50:37 Date Recorded Body height Body mass index (BMI) Body weight Heart rate Oxygen saturation Oxygen saturation in Arterial blood by Pulse oximetry Systolic blood pressure Diastolic blood pressure Provider Name and Address Organization Details Last Updated DateTime 4 175.26 cm 34.2 kg/m2 485395. 71 g 85 /min 97 % 97 % 112 mm[Hg] 64 mm[Hg] Desire Alcazar [place] [facility] 4 11:16:13 Date Recorded Body height Body mass index (BMI) Body weight Heart rate Oxygen saturation Oxygen saturation in Arterial blood by Pulse oximetry Systolic blood pressure Diastolic blood pressure Provider Name and Address Organization Details Last Updated DateTime 4 175.26 cm 35.1 kg/m2 370227. 62 g 91 /min 97 % 97 % 122 mm[Hg] 68 mm[Hg] Desire Alcazar [place] [facility] 4 16:20:37 Date Recorded Body height Body mass index (BMI) Body weight Heart rate Oxygen saturation Oxygen saturation in Arterial blood by Pulse oximetry Systolic blood pressure Diastolic blood pressure Provider Name and Address Organization Details Last Updated DateTime 5 175.26 cm 35.6 kg/m2 581581. 2 g 87 /min 97 % 97 % 120 mm[Hg] 76 mm[Hg] Katrina Johnson MA [facility] 5 16:56:23 Date Recorded Body height Body mass index (BMI) Body weight Heart rate Oxygen saturation Oxygen saturation in Arterial blood by Pulse oximetry Systolic blood pressure Diastolic blood pressure Provider Name and Address Organization Details Last Updated DateTime 5 175.26 cm 35.1 kg/m2 927665. 91 g 66 /min 97 % 97 % 120 mm[Hg] 62 mm[Hg] Desire Alcazar MA [facility] 5 11:47:07 Social History Question Answer Notes LastModified by Organizat ion Details LastModified Time Tobacco Smoking Status Former Smoker Thea Clark MA [facility], [facility] 08/03/2023 13:12:29 Do You Have An Advance [...] Date Of Your Most Recent Tobacco Screening? 08/20/2024 Information not available 08/20/2024 What Is Your Current Pack Years? 20-29packyear [...] Anxious, Or Unable To Sleep At Night)? [id number] Information not available 08/03/2023 Do You Use [...] Skin Problems N Anemia N Heart Attack ([place]) N Diabetes Y Seizures/Epilepsy Y Asthma N Allergies N Hepatitis N Heart Failure N Osteoporosis N Immunizations Vaccine [...] [facility] 11/06/2023 12:22:11 Pneumococcal conjugate PCV20, polysaccharide [id number] conjugate, adjuvant, PF 3 completed Marsha Miller [...] influenza, seasonal, intradermal, preservative free 3 completed Marsha Miller [place], [place] [facility] 11/06/2023 12:22:11 Influenza, split virus, quadrivalent, PF 0 completed Marsha Paul [place] [facility] 11/06/2023 12:22:11 Influenza, split virus, quadrivalent, PF 0 completed Marsha Vandagayle [place] [facility] 11/06/2023 12:22:11 Influenza, split virus, quadrivalent, PF 8 completed Marsha Miller [place] [facility] 11/06/2023 12:22:11 Influenza, split virus, quadrivalent, PF 2 completed Marsha Miller [place] [facility] 11/06/2023 12:22:11 Pneumococcal Conjugate, unspecified formulation 3 completed Marsha Vandagayle [facility] [facility] 11/06/2023 12:22:11 Past Encounters Encounter ID Performer Location Encounter Start Date Encounter Closed Date Diagnosis/Indication Diagnosis SNOMED-CT Code Diagnosis ICD10 Code Diagnosis Note [id number] Mina Wilson MD [facility] (Adult Med) [address] [place] [phone] 08/03/2023 12:10:41 08/03/2023 13:51:25 Type 2 diabetes mellitus without complication 211987530 E11.9 Upper resp iratory infection 75717052 J06.9 Essential hypertension 55256857 I10 Hyperlipidemia 79846014 E78.5 Mixed anxi ety and depressive disorder 600152042 F41.8 Vitamin D below reference range 125769399 E55.9 Hypothyroidism 40786986 E03.9 Gastroesop hageal reflux disease without esophagitis 242091336 K21.9 [id number] Mina Wilson MD [facility] (Adult Med) [address] [place] [phone] 11/06/2023 10:30:44 11/06/2023 12:32:13 Obesity 374746401 E66.8 Upper resp iratory infection 29335651 J06.9 Essential hypertension 40367047 I10 Hyperlipidemia 91267577 E78.5 Hypothyroidism 02197613 E03.9 Type 2 darren betes mellitus without complication 383974420 E11.9 [id number] Mina Wilson MD [facility] (Adult Med) [address] [place] [phone] 02/05/2024 10:20:13 02/05/2024 12:16:58 Obesity 464315163 E66.8 Essential hypertension 64253996 I10 Hyperlipidemia 28309025 E78.5 Hypothyroidism 80373136 E03.9 Type 2 darren betes mellitus without complication 107751449 E11.9 [id number] MD [facility] (Adult Med) [address] [place] [phone] 03/11/2024 10:54:33 03/11/2024 12:11:15 Obesity 239653194 E66.9 Pain in fi nger of right hand 8681795883 90117 M79.644 Hypothyroidism 43982296 E03.9 Hyperlipidemia 98701057 E78.5 Essential hypertension 23691284 I10 [id number] MD [facility] (Adult Med) [address] [place] [phone] 04/23/2024 15:24:08 04/23/2024 16:42:58 Cellulitis of lower limb 466395241 L03.783 [id number] MD [facility] (Adult Med) [address] [place] [phone] 06/18/2024 16:41:31 06/18/2024 17:21:57 Body mass index 30+ - obesity 949441636 Z68.35 Obesity 508475274 E66.9 Cellulitis of lower limb 905591054 L03.227 [id number] MD [facility] (Adult Med) [address] [place] [phone] 08/20/2024 11:31:48 08/20/2024 12:21:24 Body mass index 30+ - obesity 274342711 Z68.35 Obesity 991731931 E66.9 Essential hypertension 16280461 I10 Hyperlipidemia 88611358 E78.5 Hypothyroidism 67244048 E03.9 Mixed anxi ety and depressive disorder 851294311 F41.8 Health Concerns Section Related Observation LastModified by Organization Detai ls LastModified Time None Recorded Concern Status LastModified by Organization Details LastModified Time None Recorded Advance Directives Directive N: Payers Encounter Date Sequence Insurance Name Policy Number Policy Álvarez Covered Member ID Álvarez Member ID Guarantor Name 02/05/2024 1 [employer] (MEDICARE REPLACEMENT/AD VANTAGE - HMO) [id number] [place] [id number] [place] Branch 02/05/2024 2 [place]ARE OR MEDICARE REPLACEMENT PRIMARY) [place] Branch [id number] Dennis Branch 03/11/2024 1 [employer] (MEDICARE REPLACEMENT/AD VANTAGE - HMO) [id number] Dennis Branch [id number] Dennis Branch 03/11/2024 2 [place] OR [place]IC[place] REPLACEMENT PRIMARY) [place] Branch [id number] Dennis Branch 04/23/2024 1 [facility] (MEDICARE REPLACEMENT/AD VANTAGE - HMO) [id number] Dennis Branch [id number] Dennis Branch 04/23/2024 2 [place] OR [place]ICARE REPLACEMENT PRIMARY) Dennis Branch [id number] Dennis Branch 06/18/2024 1 [facility] (MEDICARE REPLACEMENT/AD VANTAGE - HMO) [id number] Dennis Branch [id number] Dennis Branch 06/18/2024 2 [place] OR MEDICARE REPLACEMENT PRIMARY) Dennis Branch [id number] Dennis Branch 08/20/2024 1 [facility] (MEDICARE REPLACEMENT/AD VANTAGE - HMO) [id number] Dennis Branch [id number] Dennis Branch 08/20/2024 2 [place] WHEN [place] OR MEDICARE REPLACEMENT PRIMARY) [place] Branch [id number] Dennis Branch Notes Date Note Type Note Provider Name and Address Organization Details Recorded Time 02/05/2024 text/html he was in an RADHA yesterday legs started shaking went to the emergency room he is following up with Neurology they are working with him on his Depakote level Mina Wilson MD Attn: Accounting,[address] [place], [address], [facility] 03/02/2024 18:29:53 03/11/2024 text/html 1. Diabetes does not take his sugars regularly. 2. Anxiety seems to be stable. Three hypothyroid no heat or cold intolerance. 4. Fell hurt his right middle finger the other day hard to bed. No numbness or tingling or loss of function just painful. 5. Hypertension no headache no dizziness Mina Wilson MD Attn: Accounting, [address] [facility], [place], [address], [facility] 03/11/2024 13:33:13 04/23/2024 text/html bumped his left leg on the bedpost denies going to little open area no fever no chills draining a minimally Mina Wilson MD Attn: Accounting, [address] [facility], [place], [address], [place] [facility] 04/26/2024 15:00:55 06/18/2024 text/html bumped his leg o n the dresser and now he is worried it is in fact Mina Wilson MD Attn: Accounting,[address] [facility], [place], [address], [place] [facility] 06/22/2024 17:02:21 08/20/2024 text/html Interval history a neither syncopal event and went to the hospitalist checked out now he is at home Mina Wilson MD Attn: Accounting,[address] [facility], [place], [address], [place] [facility] 08/30/2024 17:53:17
--- OUTSIDE RECORDS SUMMARY | 2024-09-08 21:34 | XMS_ITS | Clinical Summary ---
Author Organization [facility] Address [address] [place] [id number] Care Team Providers Care Supervisor Boilermaking Shop Name Role Phone Sergey Wilson MD Primary Care Provider [phone] Allergies Active Allergy Reactions Criticality Noted Date [...] 1 tablet (50 mcg total) by mouth molecular modeler before breakfast Active montelukast (SINGULAIR) 10 mg [...] CAPSULE 0 Active cyanocobalamin/ folic acid (vitamin I04-hpijq acid) 2,500-400 mcg tablet,disinteg rating 0 Active [...] Encounters Date Type Department Care Team Description 08/13/2024 Telephone [facility] Epilepsy [address] [facility] [address]th [place] [address] [place] [address] Clifton Jose MD PhD 08/07/2024 Telephone [facility] Epilepsy [address] [facility] [address]th [place] [address] [place] [address] Clifton Jose MD PhD from Last 3 Months Immunizations Immunization Administration Dates Next Due Influenza, Quadrivalent, Spl it, Preservative Free, Intramuscular 06/06/2019 Influenza, Unspecified 02/12/2020 Surgical History Surgery Date Site/Laterality Comments WI CRANIOTOMY SELECTIVE AMYGDALOHIPPOCAMPECTOMY Craniotomy For Amygdalohippocampectomy - (Added by TW Conv) CARDIAC PACEMAKER PLACEMENT Pacemaker Placement - (Added by TW Conv) LOOP ELECTROSURGICAL EXCISIO N PROCEDURE 07/12/2023 [facility] Medical History Medical History [...] Used Date Smoking Tobacco: Former Cigarettes 1.3 52.3 S tarted: 1973 Smokeless Tobacco: Never Tobacco Cessation:Counseling Given: Not Answered Alcohol Use Standard Drinks/Week Comments No 0 (1 standard drink = 0.6 oz pur e alcohol) Sex and Gender Information Value Date Recorded Sex Assigned at Not on file 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 Gender Identity Not on file Sexual [...] 04/23/2015 02/26/2015, 02/06/2013, 01/12/2013 eGFR 02/15/2023 02/15/2022, 02/05/2021, 08/29/2020, Additional history exists Influenza Vaccine (Season Ended) 2025 03/29/2022, 02/25/2020, 02/18/2020, Additional history exists Procedures Procedure [...] PhD LAB BLOOD ORDERABLES Adeline miller Result [facility] Department [place] [address] from Last 3 Months or Most Recently Relevant to Health Maintenance Insurance IDPA [facility] MEDICARE ADVANTAGE [employer]PA [facility] MEDICARE ADVANTAGE [facility] MEDICARE ADVANTAGE [employer] Advance Directives For more information, please contact: [phone] * Full Code (Latest Code Status on File) Date Activated Date Inactivated Comments 08/17/2021 7:34 AM 08/19/2021 10:29 PM * Full Code Date Activated Date Inactivated Comments 07/20/2020 10:14 AM 07/26/2020 7:25 PM * Full Code Date Activated Date Inactivated Comments 06/06/2019 2:57 AM 06/08/2019 2:23 AM Care Teams Supervisor [employer]ilermaking Shop Relationship Specialty Start Date End Date Sergey Wilson MD PCP - General 09/20/16
--- OUTSIDE RECORDS SUMMARY | 2024-09-08 21:34 | XMS_ITS | Referral Summary ---
Author Organization [facility] Address [address] [place] [address] Care Team Providers Care Overlay Plastician Name Role Phone Sergey Wilson MD Primary Care Provider [phone] Encounters Date Type Department Care Team Description 08/13/2024 Telephone [facility] Epilepsy [address] [facility] 6th Floor [address] [place] [id number] Clifton Jose MD PhD 08/07/2024 Telephone [facility] Epilepsy [address] [facility] [address]th [place] [address] [place] [address] Clifton Jose MD PhD from [...] 1 tablet (50 mcg total) by mouth ase master mechanic before breakfast Active montelukast (SINGULAIR) 10 mg [...] CAPSULE 0 Active cyanocobalamin/ folic acid (vitamin S60-advgy acid) 2,500-400 mcg tablet,disinteg rating 0 Active [...] on file 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 73 m2 JOHANNY PAVON Comment: Interpretive Data Reference Interval Normal >/= [...] PhD LAB BLOOD ORDERABLES Adeline miller Result JOHANNY MARTINEZ [facility] Department [place] [address] from Last 3 Months or Most Recently Relevant to Health Maintenance Insurance IDPA [facility] MEDICARE ADVANTAGE [facility] Address: [facility] [address] [place] [address] IDPA [facility] MEDICARE ADVANTAGE [facility] Address: [address] [address] [place] [address] [facility] MEDICARE ADVANTAGE [facility] Address: [address] [address] [place] [address] IDPA Advance Directives For more information, please contact: [phone] * Full Code (Latest Code Status on File) Date Activated Date Inactivated Comments 08/17/2021 7:34 AM 08/19/2021 10:29 PM * Full Code Date Activated Date Inactivated Comments 07/20/2020 10:14 AM 07/26/2020 7:25 PM * Full Code Date Activated Date Inactivated Comments 06/06/2019 2:57 AM 06/08/2019 2:23 AM Care Teams Overlay Plastician Relationship Specialty Start Date End Date Sergey Wilson MD PCP - General 09/20/16
--- OUTSIDE RECORDS SUMMARY | 2024-09-08 21:34 | XMS_ITS | Clinical Summary ---
Author Organization [facility] Address [address] [place] [id number] Care Team Providers Care Production Intern Name Role Phone None, Provider MD Primary [...] C 02/23/1982 DTaP, Tdap and Td Vaccines ( 1 - Tdap) 02/23/1983 COVID-19 Vaccine (4 - 2024-2 5 season) 2024 05/13/2021, 08/14/2020, 07/17/2020 RSV Immunization or 60+ Years (1 - 1-dose 75+ series) 02/23/2039 Pneumococcal Vaccine: 50+ Years Completed 11/04/2022, 02/26/2015 Zoster Vaccines Completed 04/21/2023, 11/04/2022 Meningococcal B Vaccine Aged Out No l onger eligible based on patient's age to complete this topic Meningococcal Vaccine Aged Out No [place] jordyn eligible based on patient's age to complete this topic RSV Immunizations Under 20 Months Aged Out No longer eligible b ased on patient's age to complete this topic Insurance MEDICARE [facility] MEDICAID Care Teams Production Intern Relationship Specialty Start Date End Date None, Provider, MD PCP - General UNKNOWN PHYSICIAN SPECIALTY 09/01/23
--- NOTE | 2024-09-08 21:55 | ED_ITS ---
HPI - General Adult General Chief complaint: Weakness Stated complaint: SUDDEN ONSET GENERALIZED WEAKNESS Time Seen by Provider: 09/08/24 20:22 History of Present Illness HPI narrative: 59-year-old male presents emergency department for evaluation for episode of increased generalized weakness. Patient states this does happen frequently. Patient does often present to the emergency department for similar symptoms. Patient states he was crossing the street when he had onset of generalized weakness and patient was found by EMS. Patient states he did not fall or injure himself today. Patient did report that he had a fall a few days ago and did strike the back of his head and was not evaluated at that time. Upon arrival to the emergency department by EMS patient denies any pain or complaints. Patient is declining any labs at this time. Patient was willing to have a head CT for evaluation of his recent head injury. Patient appears to be in no distress at time of evaluation. Related Data Home Medications ?Medication ?Instructions ?Recorded ?Confirmed ?Last Taken ?Type Topamax 400 mg PO DAILY 04/04/19 12/27/22 11/05/19 History divalproex 500 mg tablet,delayed 500 mg PO Q12H 04/04/19 12/27/22 11/05/19 History release (Depakote) albuterol sulfate 90 mcg/actuation 2 inh inhalation Q4H PRN Shortness 11/05/19 12/27/22 11/05/19 History aerosol inhaler Of Breath aspirin 81 mg chewable tablet 81 mg PO DAILY 11/05/19 12/27/22 11/05/19 History atorvastatin 10 mg tablet 10 mg PO HS 11/05/19 12/27/22 11/04/19 History enalapril maleate 5 mg tablet 5 mg PO DAILY 11/05/19 12/27/22 11/05/19 History fenofibrate 160 mg tablet 160 mg PO DAILY 11/05/19 12/27/22 11/05/19 History fluticasone 250 mcg-salmeterol 50 1 inh inhalation BID 11/05/19 12/27/22 11/05/19 History mcg/dose blistr powdr for inhalation (Advair Diskus) Allergies Allergy/AdvReac Type Severity Reaction Status Date / Time phenobarbital AdvReac Unknown Other Verified 07/21/24 13:11 Review of Systems Review of Systems: All systems reviewed & are unremarkable except as noted in HPI and below PMFSH Past Medical History Medical History Head trauma Hyperlipidemia Hypertension Arthritis CVA (cerebral vascular accident) Epilepsy Anxiety Depression IBS (irritable bowel syndrome) GI bleed GERD (gastroesophageal reflux disease) Sleep apnea Asthma Diabetes COPD (chronic obstructive pulmonary disease) Surgical History Surgical History History of open reduction and internal fixation (ORIF) procedure Hx of craniotomy temporal lobe resection Family History Family History Mother Hypertension Congestive heart failure Social History Social History Social History: The patient is single and never had any children. He lives alone. He is on disability. Surrogate decision maker: Sophia Pozo (mother) Smoking status: Never smoker Alcohol intake: never Substance use: never Substance use type: does not use Lack of Transportation: YES Lack of Food: Never True Current Housing: I Have Housing Concerned About Future Housing: YES Difficulty Paying Gas/Electric Bills: Decline to Answer Difficulty Paying for Meds: No Currently Unemployed: No Education: Grade School Difficulty w/ Childcare or Family Care: No Living arrangements: with family Gender identity (if verbalized by the patient): Male Sexual Orientation (if Verbalized by the Patient): Straight or Heterosexual Spiritual care concerns: No Exam Narrative: APPEARANCE: Well appearing, no pain, no distress, well-nourished. HEAD: normocephalic, atraumatic. EYES: PERRLA/EOMI, conjunctivae clear. NOSE: Normal no drainage EARS:TMS clear with good light reflex. THROAT: Pharynx clear, no exudate. NECK: Supple. No adenopathy, no masses. RESPIRATORY: Airway patent, respirations nonlabored. Clear to auscultation bilaterally, no rales, rhonchi, wheezing. CARDIOVASCULAR: Regular rate and rhythm without murmurs rubs or gallops. ABDOMINAL: Soft, nontender, nondistended, normal bowel sounds MUSCULOSKELETAL: Moves all extremities. Strength/ROM intact, No edema, No calf tenderness. NEURO: Alert. Cranial nerves II through XII intact. Good gait. Good coordination SKIN: Warm, dry. Normal Color Course Vital Signs Vital signs: Vital Signs Temperature 98.3 F 09/08/24 19:42 Pulse Rate 94 09/08/24 19:42 Respiratory Rate 14 09/08/24 19:42 Blood Pressure 117/81 09/08/24 19:42 Pulse Oximetry 98 09/08/24 19:42 Oxygen Delivery Room Air 09/08/24 19:42 Temperature 98.3 F 09/08/24 19:42 Pulse Rate 89 09/08/24 22:28 Respiratory Rate 14 09/08/24 22:28 Blood Pressure 116/75 09/08/24 22:28 Pulse Oximetry 96 09/08/24 22:28 Oxygen Delivery Room Air 09/08/24 19:42 Medical Decision Making MDM Narrative Medical decision making narrative: 59-year-old male presents emergency department for evaluation after increased generalized weakness when he was crossing a street. Patient denies any recent falls or injuries but states he did have a fall last week and was not evaluated at that time. Patient states he had struck his head at that time. Head CT here was negative. Patient declined any additional lab workup at this time. Patient prefers to be discharged home. Differential Diagnosis Differential Diagnosis: Syncope, near syncope, subdural hematoma, subarachnoid hemorrhage, NSTEMI, STEMI , ACS, UTI, COVID, RSV, influenza Vital Signs Vital Signs: Vital Signs Temperature 98.3 F 09/08/24 19:42 Pulse Rate 94 09/08/24 19:42 Respiratory Rate 14 09/08/24 19:42 Blood Pressure 117/81 09/08/24 19:42 Pulse Oximetry 98 09/08/24 19:42 Oxygen Delivery Room Air 09/08/24 19:42 Temperature 98.3 F 09/08/24 19:42 Pulse Rate 89 09/08/24 22:28 Respiratory Rate 14 09/08/24 22:28 Blood Pressure 116/75 09/08/24 22:28 Pulse Oximetry 96 09/08/24 22:28 Oxygen Delivery Room Air 09/08/24 19:42 Imaging Data Radiologist's impression: Impressions Head CT 09/08/24 21:45 IMPRESSION: No acute intracranial process. Discharge Plan Discharge Clinical Impression: Head injury, Weakness Patient Disposition: Home Condition: Stable Instructions: Antibiotic Form Additional Instructions: Your head CT was negative. Have close follow-up with your primary care physician. Patient Language: Djiboutian Prescriptions: No Action famotidine 40 mg tablet 40 mg PO DAILY Qty: 30 3RF loratadine [Claritin] 10 mg tablet 10 mg PO DAILY PRN (Reason: allergy symptoms) Qty: 10 0RF promethazine 25 mg tablet 25 mg PO Q6H PRN (Reason: nausea and vomiting) Qty: 7 0RF ibuprofen 800 mg tablet 800 mg PO TID PRN (Reason: pain) Qty: 20 0RF amoxicillin-pot clavulanate [Augmentin] 875-125 mg Tablet 1 tablet PO Q12HR Qty: 8 0RF meclizine 12.5 mg tablet 12.5 mg PO TID PRN (Reason: dizziness) Qty: 14 0RF divalproex [Depakote] 500 mg Tablet,Delayed Release (Dr/Ec) 500 mg PO Q12H Rx Instructions: 1000mg in AM & 500mg at night Topamax 400 mg PO DAILY fluticasone propion-salmeterol [Advair Diskus] 250-50 mcg/dose blister with device 1 inh INHALATION BID enalapril maleate 5 mg tablet 5 mg PO DAILY atorvastatin 10 mg tablet 10 mg PO HS aspirin 81 mg tablet,chewable 81 mg PO DAILY albuterol sulfate 90 mcg/actuation HFA aerosol inhaler 2 inh INHALATION Q4H PRN (Reason: Shortness Of Breath) fenofibrate 160 mg tablet 160 mg PO DAILY citalopram 40 mg tablet See Rx Instructions .ROUTE .COMPLEX Qty: 30 0RF Dose Instruction: TAKE 1 TABLET(40 MG) BY MOUTH EVERY MORNING Rx Instructions: TAKE 1 TABLET(40 MG) BY MOUTH EVERY MORNING cyclobenzaprine 10 mg tablet See Rx Instructions .ROUTE .COMPLEX PRN (Reason: muscle spasm) Qty: 60 0RF Dose Instruction: TAKE 1 TABLET BY MOUTH TWICE DAILY Rx Instructions: TAKE 1 TABLET BY MOUTH TWICE DAILY PRN; nortriptyline 75 mg capsule See Rx Instructions .ROUTE .COMPLEX Qty: 180 0RF Dose Instruction: TAKE 1 CAPSULE BY MOUTH TWICE DAILY Rx Instructions: TAKE 1 CAPSULE BY MOUTH TWICE DAILY Follow-up/Referrals: Steve,MD Sergey [Primary Care Provider] -
[2024-09-08 22:28] VITALS: BP 116/75; PULSE 89; RESP 14; O2SAT 96
== END 2024-09-08 22:28 | disposition home or self-care (01) ==
PROVIDERS: Emergency Provider Emergency Medicine; PCP Internal Medicine
DX: R53.1 Weakness (principal); S09.90XA Unspecified injury of head, initial encounter; I10 Essential (primary) hypertension; J44.9 Chronic obstructive pulmonary disease, unspecified; E11.9 Type 2 diabetes mellitus without complications; E78.5 Hyperlipidemia, unspecified; G40.909 Epilepsy, unspecified, not intractable, without status epilepticus; G47.30 Sleep apnea, unspecified; K21.9 Gastro-esophageal reflux disease without esophagitis; K58.9 Irritable bowel syndrome, unspecified; M19.90 Unspecified osteoarthritis, unspecified site; F41.9 Anxiety disorder, unspecified; Z86.73 Personal history of transient ischemic attack (TIA), and cerebral infarction without residual deficits; Z79.899 Other long term (current) drug therapy; Z79.82 Long term (current) use of aspirin; I44.0 Atrioventricular block, first degree; R94.31 Abnormal electrocardiogram [ECG] [EKG]; W19.XXXA Unspecified fall, initial encounter
CPT/HCPCS: 70450; 93005; 99284

== ENCOUNTER 2024-11-30 12:34 | Emergency (ER) | payer MEDICARE, MEDICAID, SELFPAY ==
[2024-11-30] VITALS (9 sets, daily range): BP systolic 102–121; BP diastolic 50–72; PULSE 74–79; RESP 13–18; TEMP 36.2; O2SAT 96–99
--- NOTE | ~2024-11-30 | XR_ITS ---
EXAMINATION: XR chest 1V portable Exam Date/Time: 11/30/2024 14:28 CDT HISTORY: near syncope Comparison: 08/08/2024. RESULT: Lines, tubes, and devices: Loop recorder. Lungs and pleura: Clear. Cardiomediastinal silhouette: Stable. Other: No acute osseous or upper abdominal finding. IMPRESSION: No acute cardiopulmonary process. Reviewed, dictated and finalized at location K.
--- OUTSIDE RECORDS SUMMARY | 2024-11-30 12:36 | XMS_ITS | Encounter Summary ---
Author Organization [facility] Address [address] [place] [address] Phone Care Team Providers Care Book Trimmer Name Role Phone Sergey Wilson MD Primary Care Provider [phone] Reason for Visit * Reason Comments Med Refill Encounter Details Date Type Department Care Team (Late st Contact Info) Description 09/09/2024 Telephone [facility] Epilepsy [address] [facility] 6[address] [place] [address] [place] [address] Clifton Jose MD PhD [address] [place] [address] Med Refill Social History Tobacco Use Types Packs/Day Years Used Date Smoking Tobacco: Former Cigarettes 1.3 52.5 S tarted: 1973 Smokeless Tobacco: Never Alcohol Use Standard Drinks/Week Comments No 0 (1 standard drink = 0.6 oz pur e alcohol) Sex and Gender Information Value Date Recorded Sex Assigned at Not on file 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 Gender Identity Not on file Sexual Orientation Not on file documented as of this encounter Ordered Prescriptions Prescription Sig Dispense Quantity Refills Last Filled Start Date End Date divalproex ER (DEPAKOTE ER) 500 mg 24 hr tablet TAKE 2 TABLETS(1000 MG) BY MOUTH TWICE DAILY 360 tablet 09/09/2024 documented in this encounter Plan of Treatment Not on file documented as of this encounter Visit Diagnoses Not on filedocumented in this encounter Discontinued Medications Medication Sig Discontinue Reason Start Date End Da te divalproex ER (DEPAKOTE ER) 500 mg 24 hr tablet Take 2 tablets (1,000 mg total) by mouth 2 (two) times a day 12/18/2023 09/09/2024 documented as of this encounter Care Teams Book Trimmer Relationship Specialty Start Date End Date Sergey Wilson MD PCP - General 09/20/16 documented as of this encounter
--- OUTSIDE RECORDS SUMMARY | 2024-11-30 12:36 | XMS_ITS | Continuity of Care Document ---
Author Organization [facility] Address [address] [place] [address] Insurance Providers Payer Plan Claims Address Claims Phone Policy Number Group Number Relation Employer Guarantor Name Guarantor Guarantor Address Guarantor Phone RX [employer] AJ TA tel:[phone] [id number] Deepak Branch 1965 [address] [place] [address] [address] [employer] [address] [address], [place] [address] tel:[phone] [id number] Deepak Branch 1965 [address] [place] [address] MEDIC AID [address] [address], [place] [address] [id number] Deepak Branch 1965 [address] [place], [place] [id number] Problems Unknown Problems Results No Results Allergies, adverse reactions, alerts No known allergies and adverse reactions Medications No administered medications reported Vital Signs Date Vital Result Comment 10/23/2022 Inhaled Oxygen Concentration (3150-0) 21. 0 % N Temperature (8310-5) 97.5 [degF] N Oxygen Saturation (50960-2) 97 % N Respiratory Rate (9279-1) 31 /min N Heart Rate (8867-4) 84 /min N Blood Pressure Systolic (8480-6) 106 mm[Hg] N Blood Pressure Diastolic (8462-4) 68 mm[Hg] N Body Height (8302-2) 70 [in_i] N Body Weight (65620-6) 232 [lb_av] N Body Mass Index (39828-2) 33.3 kg/m2 N 11/05/2023 Inhaled Oxygen Concentration (3150-0) 21. 0 % N Faces Pain Scale (77083-6) 0.0 N Temperature (8310-5) 98 [degF] N Oxygen Saturation (67578-1) 98 % N Respiratory Rate (9279-1) 16 /min N Heart Rate (8867-4) 82 /min N Blood Pressure Systolic (8480-6) 116 mm[Hg] N Blood Pressure Diastolic (8462-4) 60 mm[Hg] N Body Height (8302-2) 70 [in_i] N Body Weight (77985-3) 224 [lb_av] N Body Mass Index (28190-8) 32.1 kg/m2 N 08/29/2022 Inhaled Oxygen Concentration (3150-0) 21. 0 % N Temperature (8310-5) 97.2 [degF] N Oxygen Saturation (51910-8) 98 % N Respiratory Rate (9279-1) 18 /min N Heart Rate (8867-4) 78 /min N Blood Pressure Systolic (8480-6) 110 mm[Hg] N Blood Pressure Diastolic (8462-4) 70 mm[Hg] N Body Height (8302-2) 70 [in_i] N Body Weight (46363-8) 236 [lb_av] N Body Mass Index (70761-8) 33.9 kg/m2 N 05/18/2023 Inhaled Oxygen Concentration (3150-0) 21. 0 % N Temperature (8310-5) 97.1 [degF] N Oxygen Saturation (55664-5) 98 % N Heart Rate (8867-4) 79 /min N Blood Pressure Systolic (8480-6) 130 mm[Hg] N Blood Pressure Diastolic (8462-4) 68 mm[Hg] N Body Height (8302-2) 70 [in_i] N Body Weight (70285-6) 237 [lb_av] N Body Mass Index (41154-3) 34 kg/m2 N 03/14/2024 Inhaled Oxygen Concentration (3150-0) 21. 0 % N Faces Pain Scale (23913-4) 0.0 N Temperature (8310-5) 98.2 [degF] N Oxygen Saturation (97989-2) 97 % N Respiratory Rate (9279-1) 16 /min N Heart Rate (8867-4) 86 /min N Blood Pressure Systolic (8480-6) 138 mm[Hg] N Blood Pressure Diastolic (8462-4) 76 mm[Hg] N Body Height (8302-2) 70 [in_i] N Body Weight (24261-1) 223 [lb_av] N Body Mass Index (22416-8) 32 kg/m2 N 07/15/2024 Inhaled Oxygen Concentration (3150-0) 21. 0 % N Temperature (8310-5) 97.2 [degF] N Oxygen Saturation (94361-1) 98 % N Respiratory Rate (9279-1) 18 /min N Heart Rate (8867-4) 88 /min N Blood Pressure Systolic (8480-6) 121 mm[Hg] N Blood Pressure Diastolic (8462-4) 64 mm[Hg] N Body Height (8302-2) 70 [in_i] N Social History No smoking Hx information [...]
--- OUTSIDE RECORDS SUMMARY | 2024-11-30 12:36 | XMS_ITS | Clinical Summary ---
Author Organization [facility] Address [address] [facility] [place] [address] Care Team Providers Care Glass Inserter Name Role Phone Sergey Wilson MD Primary Care Provider Source Comments [facility] Affiliates and Associated Physician Practices is amultiple site organization consisting of ambulatory clinics and hospital sitesin [place], [place], [place] and [place]. This disclosure is being madepursuant to the Care Everywhere program and may not contain all information available regarding this patient. Last updated 18.[facility] Allergies Active Allergy Reactions Criticality Noted Date [...] CDT Gender Identity Male 05/25/2021 9:36 PM BAND DIRECTOR Sexual Orientation Not on file Last Filed Vital Signs Vital Sign Reading Time Taken Comments Blood Pressure 99/48 06/02/2021 7:32 PM BAND DIRECTOR Pulse 82 06/02/2021 7:32 PM BAND DIRECTOR Temperature 37.2 C (99 F) 06/02/2021 7:32 PM BAND DIRECTOR Respiratory Rate 16 06/02/2021 7:32 PM BAND DIRECTOR Oxygen Saturation 98% 06/02/2021 7:32 PM BAND DIRECTOR Inhaled Oxygen Concentration - - Weight 104.3 kg (230 lb) 06/02/2021 7:32 PM BAND DIRECTOR Height 177.8 cm (5' 10) 06/02/2021 7:32 PM BAND DIRECTOR Body Mass Index 33 06/02/2021 7:32 PM BAND DIRECTOR Plan of Treatment Health Maintenance Due Date Last Done Comments COLOGUARD (AGES 45-75) - COLON CA SCREENING 1965 CT COLONOGRAPHY [...] (4 - season) 2024 05/13/2021, 08/14/2020, 07/17/2020 DEPRESSION SCREENING 05/14/2024 INFLUENZA VACCINE (#1) 2025 , 02/25/2020, 02/18/2020, Additional history exists COLON MONITORING 01/21/2025 01/21/2015 COLONOSCOPY - COLON CA SCREENING 01/21/2025 01/21/2015 [...] complete this topic Insurance MED[place]ID - [place] [facility] MANAGED MEDICARE ADV MANAGED MEDICARE ADV MEDICAID - [facility] Care Teams Glass Inserter Relationship Specialty Start Date End Date Sergey Wilson MD PCP - General Internal Medicine 09/25/20
--- OUTSIDE RECORDS SUMMARY | 2024-11-30 12:36 | XMS_ITS | Continuity of Care Document ---
Author Organization [facility] Address [address] [place] [address] Phone Care Team Providers Care Breeder Hen Service Technician Name Role Phone Breanna GONZALEZ, FACC, FSCMARY, Asim Unavailable U navailable Allergies, Adverse Reactions, Alerts Substance Reaction Status Criticality carbamazepine Active No Information Medications Medication Instructions Dosage Effective Dates (start - stop) Status Comments furosemide 20 mg tablet take 1 tablet by oral route every day 20 MG - Active famotidine 40 mg tablet - Ac tive divalproex ER 500 mg tablet,extended release 24 hr - Active albuterol sulfate HFA 90 mcg/actuation aerosol inhaler - Active cyclobenzaprine 10 mg tablet - Active aspirin 81 mg chewable tablet CHEW AND SWALLOW 1 TABLET BY MOUTH EVERY DAY - Active enalapril maleate 5 mg tablet TAKE 1 TABLET BY MOUTH EVERY DAY - Active montelukast 10 mg tablet TAKE 1 TABLET B Y MOUTH DAILY - Active acetaminophen 300 mg-codeine 30 mg tablet TAKE 1 TABLET BY MOUTH 2-3 TIMES DAILY NEEDED MUST LAST 21 DAYS - Active nortriptyline 75 mg capsule TAKE 1 CAPSULE BY MOUTH TWICE DAILY - Active glimepiride 1 mg tablet TAKE 2 TABLETS B Y MOUTH TWICE DAILY DIRECTED - Active fenofibrate 160 mg tablet - Active Jardiance 25 mg tablet - Act madi pioglitazone 30 mg tablet TAKE 1 TABLET BY MOUTH IN THE MORNING - Active ergocalciferol (vitamin D2) 1,250 mcg (50,000 unit) capsule TAKE 1 CAPSULE BY MOUTH EVERY WEEK - Active citalopram 40 mg tablet - Ac tive topiramate 200 mg tablet - A ctive benzonatate 100 mg capsule TAKE 1 CAPSULE BY MOUTH EVERY 8 HOURS NEEDED - Active prednisone 20 mg tablet TAKE 1 TABLET BY MOUTH DAILY FOR 5 DAYS - Active Procedures Procedure Date Complex e/m visit add on OFFICE/OUTPATIENT VISIT, EST ELECTROCARDIOGRAM, COMPLETE ILR DEVICE INTERROGAT REMOTE Advance Directives Directive Yes / No Effective Date File Name No Information Encounters Encounter Description Practice Location Reason(s) For Visit Diagnoses Date Provider Providers Copied on Encounter [facility], [address] [place] [address], [id number] , tel: [phone] [facility] Orthodoxy No Information 5 Breanna Dailey. [facility] [address] [place], [place], [id number] , . tel: [phone] OFFICE/OUTPA TIENT VISIT, EST [facility], [address] [place] [address], [id number] , tel: [phone] [facility] [place] Follow Up of Cardiology exam (chief complaint)N umbness in feet (chief complaint)P assing out (chief complaint)s welling in legs (chief complaint)b listers teresa legs (chief complaint) Essential (primary) hypertensionHyperli pidemiaBenign prostatic hyperplasia w/o lower urinary tract symptomVitamin D deficiencyGeneraliz ed hyperhidrosisFamily history of ischemic cardiac diseaseTobacco use disorder, severeAbnormal EKGSyncope and collapse 5 Breanna Dailey. [facility] [place], [id number] , . tel: [phone] Referring Provider: Asim Carlos, [facility], [place], [address] . tel:[phone] [facility], [address] [place] [address], [id number] , tel: [phone] [facility] [place] No Information Ramadan Asim. [address] , [place], [place], [id number] , . tel: [phone] [facility], [address] [place] [address], [id number] , tel: [phone] [facility] [place] Presence of other cardiac implants and grafts Ramadan Asim. [address] , [place], [place], [id number] , . tel: [phone] Referring Provider: Asim Carlos, [facility] [address] , [place], [address] . tel:[phone] Family History Family Member Type Diagnosis Age At Onset No Information Payers Payer name Insurance type Covered alliance party ID Authorcaspera hamida(s) [facility] [id number] PPO C [id number] INS TO BE ADDED CI [id number] Social History Type Description Quantity Date Captured Comments Alcohol Use Details Unknown Caffeine Use Details Unknown Tobacco Use Status No Information Smoking Status No Information Sex Male Chief Complaint And Reason For Visit No Information Reason For Referral Reason For Referral No Information Plan Of Treatment Date Type Action Status Appointment Dennis Branch BOOKED Future Order: Lab Order BMP ([id number]), Ordered on: Ordered Future Order: Radiology Order LO OP IMPLANT ([id number]), Ordered on: Ordered History Of Present Illness Encounter Date Complaint History Of Prese nt Illness Follow Up of Cardiology exam Numbness in feet Passing out swelling in legs blisters teresa legs Functional Status Date Functional Assessmen t No Information Instructions Date Instruction Additional Infor mation No Information Assessments Type Assessment Date No Information Patient Care Teams Name Effective Dates (start - stop) Status Members No Information
--- OUTSIDE RECORDS SUMMARY | 2024-11-30 12:36 | XMS_ITS | Clinical Summary ---
Author Organization [facility] Address [address] [place] [address] Phone Care Team Providers Care Electrical Line Splicer Name Role Phone Sergey Wilson MD Primary Care Provider [phone] Allergies No known active allergies Medications divalproex [...] after that. 20 Tablet 04/18/2021 9:21 PM SENIOR WEB ENGINEER 04/18/2021 Active doxycycline hyclate (VIBRAMYCIN) 100 mg tablet Take 1 Tablet (100 mg) by mouth 2 times daily. 14 Tablet 04/18/2021 9:21 PM SENIOR WEB ENGINEER 04/18/2021 Active Social History Tobacco Use Types Packs/Day Years Used Date Smoking Tobacco: Former Smokeless Tobacco: Never Sex and Gender Information Value Date Recorded Sex Assigned at Not on file Legal Sex Male 3:08 PM SENIOR WEB ENGINEER Gender Identity Not on file Sexual Orientation Not on file Last Filed Vital Signs Vital Sign Reading Time Taken Comments Blood Pressure 113/75 04/18/2021 8:00 PM SENIOR WEB ENGINEER Pulse 78 04/18/2021 8:00 PM SENIOR WEB ENGINEER Temperature 36.9 C (98.4 F) 04/18/2021 3:26 PM SENIOR WEB ENGINEER Respiratory Rate 18 04/18/2021 7:08 PM SENIOR WEB ENGINEER Oxygen Saturation 95% 04/18/2021 8:00 PM SENIOR WEB ENGINEER Inhaled Oxygen Concentration - - Weight 104.3 kg (230 lb) 04/18/2021 3:26 PM SENIOR WEB ENGINEER Height 177.8 cm (5' 10) 04/18/2021 3:26 PM SENIOR WEB ENGINEER Body Mass Index 33 04/18/2021 3:26 PM SENIOR WEB ENGINEER Plan of Treatment Health Maintenance Due Date [...] DIABETES HBA1C Q 6 MONTHS 09/12/2021 03/15/2021 RSV VACCINE (60+ or ) (1 - Risk 60-74 years 1-dose series) 2024 INFLUENZA VACCINE (#1) 2024 , 02/25/2020, 02/18/2020, Additional history exists COLORECTAL SCREENING 01/21/2025 01/21/2015 Colorectal Cancer Screening [...] Part D Address: AJ TA Care Teams Electrical Line Splicer Relationship Specialty [place] [address] [place] [phone] PCP - General Internal Medicine 04/18/21
--- OUTSIDE RECORDS SUMMARY | 2024-11-30 12:37 | XMS_ITS | Data Portability ---
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 50 0 mg 10 days he does not improve he will call back Not available 04/26/2024 15:00:38 06/18/2024 06/18/2024 doxycycline 100 b.i.d. 1 week he can not tolerate the compression socks he will keep his regular follow up but let me know how he is doing after he is done with the antibiotics [email or web address] Not available 06/22/2024 17:01:41 08/20/2024 08/20/2024 We will continue current therapy personally I would like to refer him to [facility] but he is not going to do that right now ER record has been reviewed I would like to see him back in 3 months very difficult situation he is going to chronic encephalomalacia recurrent syncope with negative workup for the most part and he has been evaluated by Neurology and Cardiology multiple times [email or web address] Not available 08/30/2024 17:53:00 Plan of Treatment Reminders Order Date Submit Date Provider Last Modified By Organization Details Last Modified Time Details Appointments ANY 15 2024 10:15A M Mina Wilson MD Not available Not available Not available Lab None recorded. Referral None recorded. Procedures None recorded. Surgeries None recorded. Imaging XR, finger(s) 2023 024 [facility] ([facility]), [address] [place], [address], 03/11/2024 14:40:53 Medication Orders doxycycli ne hyclate 100 mg tablet 2024 025 [id number], [address], [place], [id number], 08/07/2024 09:49:12 cephalexi n 500 mg capsule 2023 025 [facility] #[id number], [address], [place], [id number], 06/18/2024 16:57:13 Patient TargetsNo targets recorded. Patient Instructions Encounter Date Encounter Id Patient Instructions Last Modified By Organization Details Last Modified Time 03/11/2024 [id number] A healthy lifestyle: care instructions [email or web address] Not available 03/11/2024 12:48:21 06/18/2024 [id number] A healthy lifestyle: care instructions Not available 06/18/2024 18:02:36 08/20/2024 [id number] A healthy lifestyle: care instructions [email or web address] Not available 08/20/2024 15:31:28 Reason for Referral [...] 1996 panel - Serum or Plasm a cholesterol [...] 1996 panel - Serum or Plasm a LDL cholesterol, calculated LDL zenon stero l, calcu lated Not Available Not Available 06/25/2024 16:41:09 04/17/20 24 04/17/2024 Compr ehens madi metab olic 2000 panel - Serum or Plasm a sodium sodiu m Not Available Not Available 06/25/2024 16:41:09 04/17/20 24 04/17/2024 Compr ehens madi metab olic 2000 panel - Serum or Plasm a potassium potas sium Not Available Not Available 06/25/2024 16:41:09 04/17/20 24 04/17/2024 Compr ehens madi metab olic 2000 panel - Serum or Plasm a chloride high chlor jose luis Not Available Not Available 06/25/2024 16:41:09 04/17/20 24 04/17/2024 Compr ehens madi metab olic 2000 panel - Serum or Plasm a carbon [...] 2000 panel - Serum or Plasm a A/G [...] 25 07/10/2024 Compr ehens madi metab olic 2000 panel - Serum or Plasm a sodium [moles/volum e] in blood 136 mmol/ L low: 137mmo l/Lhig h: 145mmo l/L low Not Available Not Available 07/10/2024 19:55:14 07/10/19 25 07/10/2024 [facility] [employer] madi metab olic 1999 panel - Serum [...] Not Available 07/10/2024 19:55:14 07/10/19 25 07/10[facility] - Serum or Plasm a anion gap in serum or plasma 13.4 mmol/ L low: 14mmol /Lhigh : 22mmol /L low Not Available Not Available 07/10/2024 19:55:14 07/10/19 25 07/10/2024 [facility] 1999 panel - Serum or Plasm a glucose [mass/volume ] in serum or plasma 214 mg/dL low: 70mg/d Lhigh: 99mg/d L high Not Available Not Available 07/10/2024 19:55:14 07/10/19 25 07/10/2024 [facility] [employer] madi Button olic 1999 panel - Serum or Plasm a urea nitrogen [mass or moles/volume ] in serum or plasma 21 mg/dL low: 8mg/dL high: 19mg/d L high Not Available Not Available 07/10/2024 19:55:14 07/10/19 25 07/10/2024 [facility] [employer] madi Button olic 1999 panel - Serum or Plasm a creatinine [mass/volume ] in serum or plasma 0.76 mg/dL low: 0.66mg /dLhig h: 1.25mg /dL normal Not Available Not Available 07/10/2024 19:55:14 07/10/19 25 07/10/2024 [facility] [employer] madi [facility] 1999 panel - Serum or Plasm a glomerular filtration rate/1.73 sq M.predicted [volume rate/area] in serum, plasma or blood >60 normal Not Available Not Available 06/15 19:55:14 07/10/19 25 07/10/2024 [facility] [employer] madi [facility] 1999 panel - Serum or Plasm a alkaline phosphatase [enzymatic activity/vol ume] in serum or plasma 96 U/L low: 38U/Lh igh: 126U/L normal Not Available Not Available 07/10/2024 19:55:14 07/10/19 25 07/10/2024 [facility] [employer] madi Button [employer] 1999 panel - Serum or Plasm a alanine aminotransfe rase [enzymatic activity/vol ume] in serum or plasma 32 U/L low: 0U/Lhi gh: 50U/L normal Not Available Not Available 07/10/2024 19:55:14 07/10/19 25 07/10/2024 [facility] [employer] madi Button ic 1999 panel - Serum or Plasm a aspartate aminotransfe rase [enzymatic activity/vol ume] in serum or plasma 64 U/L low: 15U/Lh igh: 46U/L high Not Available Not Available 07/10/2024 19:55:14 07/10/19 25 07/10/2024 [facility] [employer] [facility] 1999 panel - Serum or Plasm a bilirubin.to aggie [mass/volume ] in serum or plasma 0.8 mg/dL low: 0.2mg/ dLhigh : 1.3mg/ dL normal Not Available Not Available 07/10/2024 19:55:14 07/10/19 25 07/10/2024 [facility] [employer] madi Button ol 1999 panel - Serum or Plasm a calcium [mass/volume ] in serum or plasma 9.5 mg/dL low: 8.4mg/ dLhigh : 10.2mg /dL normal Not Available Not Available 07/10/2024 19:55:14 07/10/19 25 07/10/2024 [facility] [employer] madi Button [employer] 1999 panel - Serum or Plasm a protein [mass/volume ] in serum or plasma 6.7 g/dL low: 6.3g/d Lhigh: 8.2g/d L normal Not Available Not Available 07/10/2024 19:55:14 07/10/19 25 07/10/2024 [facility] [employer] madi Button olic 1999 panel - Serum or Plasm a albumin [mass/volume ] in serum or plasma 4.1 g/dL low: 3.4g/d Lhigh: 5g/dL normal Not Available Not Available 07/10/2024 19:55:14 07/10/19 25 07/10/2024 [facility] [employer] madi Button olic 1999 panel - Serum or Plasm a globulin [mass/volume ] in serum 2.6 g/dL low: 2.6g/d Lhigh: 4.2g/d L normal Not Available Not Available 07/10/2024 19:55:14 07/10/19 25 07/10/2024 [facility] [employer] madi Button olic 1999 panel - Serum or Plasm [...] 2000 panel - Serum or Plasm a chloride [...] Not Available 07/26/2024 19:12:04 07/27/19 25 07/26/2024 [facility] [employer] madi Button ol 1999 panel - Serum or Plasm a glucose [mass/volume ] in serum or plasma 155 mg/dL low: 70mg/d Lhigh: 99mg/d L high Not Available Not Available 07/26/2024 19:12:04 07/27/19 25 07/26/2024 [facility] [employer] madi Button olic 1999 panel - Serum or Plasm a urea nitrogen [mass or moles/volume ] in serum or plasma 17 mg/dL low: 8mg/dL high: 19mg/d L normal Not Available Not Available 07/26/2024 19:12:04 07/27/19 25 07/26/2024 [facility] [employer] madi Button olic 1999 panel - Serum or Plasm a creatinine [mass/volume ] in serum or plasma 0.85 mg/dL low: 0.66mg /dLhig h: 1.25mg /dL normal Not Available Not Available 07/26/2024 19:12:04 07/27/19 25 07/26/2024 [facility] [employer] madi Button ic 1999 panel - Serum or Plasm a glomerular filtration rate/1.73 sq M.predicted [volume rate/area] in serum, plasma or blood >60 normal Not Available Not Available 07/12 19:12:04 07/27/19 25 07/26/2024 [facility] [employer] madi Button olic 1999 panel - Serum or Plasm a alkaline phosphatase [enzymatic activity/vol ume] in serum or plasma 75 U/L low: 38U/Lh igh: 126U/L normal Not Available Not Available 07/26/2024 19:12:04 07/27/19 25 07/26/2024 [facility] [employer] madi Button olic 1999 panel - Serum or Plasm a alanine aminotransfe rase [enzymatic activity/vol ume] in serum or plasma 34 U/L low: 0U/Lhi gh: 50U/L normal Not Available Not Available 07/26/2024 19:12:04 07/27/19 25 07/26/2024 Compr [employer] madi metab olic 2000 panel - Serum or Plasm a aspartate aminotransfe rase [enzymatic activity/vol ume] in serum or plasma 67 U/L low: 15U/Lh igh: 46U/L high Not Available Not Available 07/26/2024 19:12:04 07/27/19 25 07/26/2024 [facility] [employer] madi Button olic 1999 panel - Serum or Plasm a bilirubin.to aggie [mass/volume ] in serum or plasma 0.6 mg/dL low: 0.2mg/ dLhigh : 1.3mg/ dL normal Not Available Not Available 07/26/2024 19:12:04 07/27/19 25 07/26/2024 [facility] [employer] madi Button olic 1999 panel - Serum or Plasm a calcium [mass/volume ] in serum or plasma 8.9 mg/dL low: 8.4mg/ dLhigh : 10.2mg /dL normal Not Available Not Available 07/26/2024 19:12:04 07/27/19 25 07/26/2024 [facility] [employer] madi Button olic 1999 panel - Serum or Plasm a protein [mass/volume ] in serum or plasma 7.1 g/dL low: 6.3g/d Lhigh: 8.2g/d L normal Not Available Not Available 07/26/2024 19:12:04 07/27/19 25 07/26/2024 [facility] [employer] madi Button olic 1999 panel - Serum or Plasm a albumin [mass/volume ] in serum or plasma 4.2 g/dL low: 3.4g/d Lhigh: 5g/dL normal Not Available Not Available 07/26/2024 19:12:04 07/27/19 25 07/26/2024 [facility] [employer] madi Button olic 1999 panel - Serum or Plasm a globulin [mass/volume ] in serum 2.9 g/dL low: 2.6g/d Lhigh: 4.2g/d L normal Not Available Not Available 07/26/2024 19:12:04 07/27/19 25 07/26/2024 [facility] [employer] madi Button olic 2000 panel - Serum or Plasm [...] high Not Available Not Available 07/26/2024 19:12:04 03/15/20 25 07/26/2024 CBC W Auto Diffe renti [...] 07/27/19 25 07/26/2024 CBC W Auto Diffe tee manning panel - Blood nucleated erythrocytes [#/volume] in blood by automated count 0 x10'3 /uL normal Not Available Not Available 07/27/19 19:12:04 09/13/19 25 09/12/2024 Thyro tropi n [Unit s/vol ume] in Serum or Plasm a by Detec tion limit <= 0.005 mIU/L thyrotropin [units/volum e] in serum or plasma by detection limit <= 0.005 mIU/L 8.65 uIU/m L low: 0.465u IU/mLh igh: 4.68uI U/mL high Not Available Not Available 09/17/2024 15:44:41 09/13/19 25 09/12/2024 Compr ehens madi metab olic 1999 panel - Serum or Plasm a sodium [moles/volum e] in blood 136 mmol/ L low: 137mmo l/Lhig h: 145mmo l/L low Not Available Not Available 09/17/2024 15:44:41 09/13/19 25 09/12/2024 Compr ehens madi metab olic 1999 panel - Serum or Plasm a potassium [moles/volum e] in serum or plasma 3.6 mmol/ L low: 3.5mmo l/Lhig h: 5.1mmo l/L normal Not Available Not Available 09/17/2024 15:44:41 09/13/19 25 09/12/2024 Compr ehens madi metab olic 1999 panel - Serum or Plasm a chloride [moles/volum e] in serum or plasma 107 mmol/ L low: 98mmol /Lhigh : 107mmo l/L normal Not Available Not Available 09/17/2024 15:44:41 09/13/19 25 09/12/2024 Compr ehens madi metab olic 1999 panel - Serum or Plasm a carbon dioxide, total [moles/volum e] in serum or plasma 20 mmol/ L low: 22mmol /Lhigh : 30mmol /L low Not Available Not Available 09/17/2024 15:44:41 09/13/19 25 09/12/2024 [facility] panel - Serum or Plasm a anion gap in serum or plasma by calculation 12.6 mmol/ L low: 14mmol /Lhigh : 22mmol /L low Not Available Not Available 09/17/2024 15:44:41 09/13/19 25 09/12/2024 [facility] panel - Serum or Plasm a glucose [mass/volume ] in serum or plasma 222 mg/dL low: 70mg/d Lhigh: 99mg/d L high Not Available Not Available 09/17/2024 15:44:41 09/13/19 25 09/12/2024 [facility] panel - Serum or Plasm a urea nitrogen [mass or moles/volume ] in serum or plasma 14 mg/dL low: 8mg/dL high: 19mg/d L normal Not Available Not Available 09/17/2024 15:44:41 09/13/19 25 09/12/2024 [facility] [place] [address] panel - Serum or Plasm a creatinine [mass/volume ] in serum or plasma 0.83 mg/dL low: 0.66mg /dLhig h: 1.25mg /dL normal Not Available Not Available 09/17/2024 15:44:41 09/13/19 25 09/12/2024 [facility] [place] [address] panel - Serum or Plasm a glomerular filtration rate [volume rate/area] in serum, plasma or blood by based on 1.73 sq M >60 normal Not Available Not Available 15:44:41 09/13/19 25 09/12/2024 [facility] panel - Serum or Plasm a alkaline phosphatase [enzymatic activity/vol ume] in serum or plasma 124 U/L low: 38U/Lh igh: 126U/L normal Not Available Not Available 09/17/2024 15:44:41 09/13/19 25 09/12/2024 [facility] [employer] [place] [address] panel - Serum or Plasm a alanine aminotransfe rase [enzymatic activity/vol ume] in serum or plasma 28 U/L low: 0U/Lhi gh: 50U/L normal Not Available Not Available 09/17/2024 15:44:41 09/13/19 25 09/12/2024 [facility] [employer] madi Button ol 1999 panel - Serum or Plasm a aspartate aminotransfe rase [enzymatic activity/vol ume] in serum or plasma 51 U/L low: 15U/Lh igh: 46U/L high Not Available Not Available 09/17/2024 15:44:41 09/13/19 25 09/12/2024 [facility] 1999 panel - Serum or Plasm a bilirubin.to aggie [mass/volume ] in serum or plasma 0.3 mg/dL low: 0.2mg/ dLhigh : 1.3mg/ dL normal Not Available Not Available 09/17/2024 15:44:41 09/13/19 25 09/12/2024 [facility] [employer] madi [facility] 1999 panel - Serum or Plasm a calcium [mass/volume ] in serum or plasma 9.2 mg/dL low: 8.4mg/ dLhigh : 10.2mg /dL normal Not Available Not Available 09/17/2024 15:44:41 09/13/19 25 09/12/2024 [facility] [employer] madi [facility] 1999 panel - Serum or Plasm a protein [mass/volume ] in serum or plasma 6.9 g/dL low: 6.3g/d Lhigh: 8.2g/d L normal Not Available Not Available 09/17/2024 15:44:41 09/13/19 25 09/12/2024 [facility] 1999 panel - Serum or Plasm a albumin [mass/volume ] in serum or plasma 4.3 g/dL low: 3.4g/d Lhigh: 5g/dL normal Not Available Not Available 09/17/2024 15:44:41 09/13/19 25 09/12/2024 [facility] [employer]i Button olic 1999 panel - Serum or Plasm a globulin [mass/volume ] in serum 2.6 g/dL low: 2.6g/d Lhigh: 4.2g/d L normal Not Available Not Available 09/17/2024 15:44:41 09/13/19 25 09/12/2024 [facility] [employer]i Button olic 1999 panel - Serum or Plasm a albumin/glob ulin [mass ratio] in serum or plasma 1.7 ratio low: 1ratio high: 2ratio normal Not Available Not Available 09/17/2024 15:44:41 09/13/19 25 09/12/2024 Drugs ident ified in Urine by Scree n metho d Nomin al amphetamines [presence] in urine Negati ve text: negati ve normal Not Available Not Available 09/17/2024 15:44:41 09/13/19 25 09/12/2024 Drugs ident ified in Urine by Scree n metho d Nomin al barbiturates [presence] in urine Negati ve text: negati ve normal Not Available Not Available 09/17/2024 15:44:41 09/13/19 25 09/12/2024 Drugs ident ified in Urine by Scree n metho d Nomin al benzodiazepi roya [presence] in urine Negati ve text: negati ve normal Not Available Not Available 09/17/2024 15:44:41 09/13/19 25 09/12/2024 Drugs ident ified in Urine by Scree n metho d Nomin al cocaine [presence] in urine Negati ve text: negati ve normal Not Available Not Available 09/17/2024 15:44:41 09/13/19 25 09/12/2024 Drugs ident ified in Urine by Scree n metho d Nomin al fentanyl Negati ve text: negati ve normal Not Available Not Available 09/17/2024 15:44:41 09/13/19 25 09/12/2024 Drugs ident ified in Urine by Scree n metho d Nomin al methadone [presence] in urine Negati ve text: negati ve normal Not Available Not Available 09/17/2024 15:44:41 09/13/19 25 09/12/2024 Drugs ident ified in Urine by Scree n metho d Nomin al opiates [presence] in urine Negati ve text: negati ve normal Not Available Not Available 09/17/2024 15:44:41 09/13/19 25 09/12/2024 Drugs ident ified in Urine by Scree n metho d Nomin al oxycodone [presence] in urine Negati ve text: negati ve normal Not Available Not Available 09/17/2024 15:44:41 09/13/19 25 09/12/2024 Drugs ident ified in Urine by Screalexandro manning phencyclidin e [presence] in urine Negati ve text: negati ve normal Not Available Not Available 09/17/2024 15:44:41 09/13/19 25 09/12/2024 Drugs ident ified in Urine by Screalexandro manning cannabinoids [presence] in urine Negati ve text: negati ve normal Not Available Not Available 09/17/2024 15:44:41 09/13/19 25 09/12/2024 Natri ureti c pepti de.B proho rmone N-Ter tata [Mass /volu me] in Serum or Plasm a natriuretic peptide.B prohormone N-terminal [mass/volume ] in serum or plasma 23.4 pg/mL low: 0pg/mL high: 299pg/ mL normal Not Available Not Available 09/17/2024 15:44:41 09/13/19 25 09/12/2024 Tropo antonia I.car diac [Mass /volu me] in Serum or Plasm a by Detec tion limit <= 0.01 ng/mL troponin I.cardiac [mass/volume ] in serum or plasma by detection limit <= 0.01 NG/mL <0.012 low: 0NG/mL high: 0.034N G/mL normal Not Available Not Available 09/17/2024 15:44:41 09/13/19 25 09/12/2024 Valpr oate [Mass /volu me] in Serum or Plasm a valproate [mass/volume ] in serum or plasma 65 mcg/m L low: 50mcg/ mLhigh : 100mcg /mL normal Not Available Not Available 09/17/2024 15:44:41 09/13/19 25 09/12/2024 Magne sium [Mass /volu me] in Serum or Plasm a magnesium [mass/volume ] in serum or plasma 2 mg/dL low: 1.6mg/ dLhigh : 2.3mg/ dL normal Not Available Not Available 09/17/2024 15:44:41 09/13/19 25 09/12/2024 Gorge ol [Mass /volu me] in Serum or Plasm a ethanol [mass/volume ] in serum or plasma <10 low: 0mg/dL high: 10mg/d L normal Not Available Not Available 09/17/2024 15:44:41 09/13/19 25 09/12/2024 Influ nikki virus A and B and SARS- CoV-2 (COVI D-19) and Respi rator y syncy tial virus RNA panel - Respi rator y syste m speci men by NANNETTE with probe detec tion sars-cov-2 (covid-19) RNA [presence] in specimen by NANNETTE with probe detection Negati ve text: negati ve normal Not Available Not Available 09/17/2024 15:44:41 09/13/19 25 09/12/2024 Influ nikki virus A and B and SARS- CoV-2 (COVI D-19) and Respi rator y syncy tial virus RNA panel - Respi rator y syste m speci men by NANNETTE with probe detec tion influenza virus A RNA [presence] in respiratory system specimen by NANNETTE with probe detection Negati ve text: negati ve normal Not Available Not Available 09/17/2024 15:44:41 09/13/19 25 09/12/2024 Influ nikki virus A and B and SARS- CoV-2 (COVI D-19) and Respi rator y syncy tial virus RNA panel - Respi rator y syste m speci men by NANNETTE with probe detec tion influenza virus B RNA [presence] in respiratory system specimen by NANNETTE with probe detection Negati ve text: negati ve normal Not Available Not Available 09/17/2024 15:44:41 09/13/19 25 09/12/2024 Influ nikki virus A and B and SARS- CoV-2 (COVI D-19) and Respi rator y syncy tial virus RNA panel - Respi rator y syste m speci men by NANNETTE with probe detec tion respiratory syncytial virus RNA [presence] in nasopharynx by NANNETTE with probe detection Negati ve text: negati ve normal Not Available Not Available 09/17/2024 15:44:41 09/13/19 25 09/12/2024 Urina lysis compl ete W Refle x Cultu re panel - Urine color of urine by auto Color of urine normal Not Available Not Available 15:44:41 09/13/19 25 09/12/2024 Urina lysis compl ete W Refle x Cultu re panel - Urine appearance of urine Urine specim en normal Not Available Not Available 15:44:41 09/13/19 25 09/12/2024 Urina lysis compl ete W Refle x Cultu re panel - Urine specific gravity of urine by test strip 1.036 1 low: 1.001h igh: 1.03 high Not Available Not Available 09/17/2024 15:44:41 09/13/19 25 09/12/2024 Urina lysis compl ete W Refle x Cultu re panel - Urine pH of urine by test strip 6 pH_un its low: 5pH unitsh igh: 9pH units normal Not Available Not Available 09/17/2024 15:44:41 09/13/19 25 09/12/2024 Urina lysis compl ete W Refle x Cultu re panel - Urine leukocytes [#/volume] in urine by test strip Leukoc yte estera se measur ement text: negati ve normal Not Available Not Available 09/17/2024 15:44:41 09/13/19 25 09/12/2024 Urina lysis compl ete W Refle x Cultu re panel - Urine nitrite [presence] in urine by test strip Labora tory test findin g text: negati ve normal Not Available Not Available 09/17/2024 15:44:41 09/13/19 25 09/12/2024 Urina lysis compl ete W Refle x Cultu re panel - Urine protein [mass/volume ] in urine by test strip Urine findin g text: negati ve normal Not Available Not Available 09/17/2024 15:44:41 09/13/19 25 09/12/2024 Urina lysis compl ete W Refle x Cultu re panel - Urine glucose [moles/volum e] in urine by test strip Labora tory test findin g text: normal Not Available Not Available 09/17/2024 15:44:41 09/13/19 25 09/12/2024 Urina lysis compl ete W Refle x Cultu re panel - Urine ketones [moles/volum e] in urine by test strip Labora tory test findin g text: negati ve normal Not Available Not Available 09/17/2024 15:44:41 09/13/19 25 09/12/2024 Urina lysis compl ete W Refle x Cultu re panel - Urine urobilinogen [mass/volume ] in urine by test strip Urobil inogen measur ement, urine text: normal normal Not Available Not Available 09/17/2024 15:44:41 09/13/19 25 09/12/2024 Urina lysis compl ete W Refle x Cultu re panel - Urine bilirubin.to aggie [mass/volume ] in urine by test strip Urine dipsti ck for biliru bin text: negati ve normal Not Available Not Available 09/17/2024 15:44:41 09/13/19 25 09/12/2024 Urina lysis compl ete W Refle x Cultu re panel - Urine erythrocytes [#/volume] in urine by test strip Urine dipsti ck for blood text: negati ve normal Not Available Not Available 09/17/2024 15:44:41 09/13/19 25 09/12/2024 Urina lysis compl ete W Refle x Cultu re panel - Urine leukocytes [#/area] in urine sediment by automated count Leukoc ytes in urine low: 0/[hpf ]high: 8/[hpf ] normal Not Available Not Available 09/17/2024 15:44:41 09/13/19 25 09/12/2024 Urina lysis compl ete W Refle x Cultu re panel - Urine erythrocytes [#/area] in urine sediment by automated count Blood in urine low: 0/[hpf ]high: 4/[hpf ] normal Not Available Not Available 09/17/2024 15:44:41 09/13/19 25 09/12/2024 Urina lysis compl ete W Refle x Cultu re panel - Urine bacteria [presence] in urine by automated Urine findin g text: none seen normal Not Available Not Available 09/17/2024 15:44:41 09/13/19 25 09/12/2024 Urina lysis compl ete W Refle x Cultu re panel - Urine epithelial cells.[place] us [#/area] in urine sediment by automated count Urine findin g normal Not Available Not Available 15:44:41 09/13/19 25 09/12/2024 CBC W Auto Diffe renti al panel - Blood leukocytes [#/volume] in blood by automated count 5.8 x10'3 /uL low: 4.2x10 '3/uLh igh: 10.8x1 0'3/uL normal Not Available Not Available 09/17/2024 15:44:40 09/13/19 25 09/12/2024 CBC W Auto Diffe renti al panel - Blood erythrocytes [#/volume] in blood by automated count 4.56 x10'6 /uL low: 4.1x10 '6/uLh igh: 5.8x10 '6/uL normal Not Available Not Available 09/17/2024 15:44:40 09/13/19 25 09/12/2024 CBC W Auto Diffe renti al panel - Blood hemoglobin [mass/volume ] in blood 14.2 g/dL low: 13.2g/ dLhigh : 17g/dL normal Not Available Not Available 09/17/2024 15:44:40 09/13/19 25 09/12/2024 CBC W Auto Diffe renti al panel - Blood hematocrit [volume fraction] of blood by automated count 43.7 % low: 39.3%h igh: 50% normal Not Available Not Available 09/17/2024 15:44:40 09/13/19 25 09/12/2024 CBC W Auto Diffe renti al panel - Blood MCV [entitic mean volume] in red blood cells by automated count 95.8 fL low: 80fLhi gh: 97fL normal Not Available Not Available 09/17/2024 15:44:40 09/13/19 25 09/12/2024 CBC W Auto Diffe renti al panel - Blood MCH [entitic mass] by automated count 31.1 pg low: 27pghi gh: 33pg normal Not Available Not Available 09/17/2024 15:44:40 09/13/19 25 09/12/2024 CBC W Auto Diffe renti al panel - Blood MCHC [entitic mass/volume] in red blood cells by automated count 32.5 g/dL low: 31g/dL high: 36g/dL normal Not Available Not Available 09/17/2024 15:44:40 09/13/19 25 09/12/2024 CBC W Auto Diffe renti al panel - Blood erythrocyte [distwidth] in red blood cells 13.4 % low: 11.8%h igh: 15.5% normal Not Available Not Available 09/17/2024 15:44:40 09/13/19 25 09/12/2024 CBC W Auto Diffe renti al panel - Blood platelets [#/volume] in blood by automated count 149 x10'3 /uL low: 150x10 '3/uLh igh: 400x10 '3/uL low Not Available Not Available 09/17/2024 15:44:40 09/13/19 25 09/12/2024 CBC W Auto Diffe renti al panel - Blood platelet [entitic mean volume] in blood by automated count 10 fL low: 9fLhig h: 12.4fL normal Not Available Not Available 09/17/2024 15:44:40 09/13/19 25 09/12/2024 CBC W Auto Diffe renti al panel - Blood neutrophils/ leukocytes in blood 37 % low: 39%hig h: 72% low Not Available Not Available 09/17/2024 15:44:40 09/13/19 25 09/12/2024 CBC W Auto Diffe renti al panel - Blood lymphocytes/ leukocytes in blood 48.6 % low: 16%hig h: 47% high Not Available Not Available 09/17/2024 15:44:40 09/13/19 25 09/12/2024 CBC W Auto Diffe renti al panel - Blood monocytes/le ukocytes in blood 8.3 % low: 5%high : 12% normal Not Available Not Available 09/17/2024 15:44:40 09/13/19 25 09/12/2024 CBC W Auto Diffe renti al panel - Blood eosinophils [#/volume] in blood 4.5 % low: 1%high : 7% normal Not Available Not Available 09/17/2024 15:44:40 09/13/19 25 09/12/2024 CBC W Auto Diffe renti al panel - Blood basophils/le ukocytes in blood 0.7 % low: 0%high : 2% normal Not Available Not Available 09/17/2024 15:44:40 09/13/19 25 09/12/2024 CBC W Auto Diffe renti al panel - Blood immature granulocytes /leukocytes in blood 0.9 % low: 0%high : 0.5% high Not Available Not Available 09/17/2024 15:44:40 09/13/19 25 09/12/2024 CBC W Auto Diffe renti al panel - Blood neutrophils [#/volume] in blood 2.15 x10'3 /uL low: 1.5x10 '3/uLh igh: 8x10'3 /uL normal Not Available Not Available 09/17/2024 15:44:40 09/13/19 25 09/12/2024 CBC W Auto Diffe renti al panel - Blood lymphocytes [#/volume] in blood 2.82 x10'3 /uL low: 1.07x1 0'3/uL high: 3.43x1 0'3/uL normal Not Available Not Available 09/17/2024 15:44:40 09/13/19 25 09/12/2024 CBC W Auto Diffe renti al panel - Blood monocytes [#/volume] in blood 0.48 x10'3 /uL low: 0.29x1 0'3/uL high: 0.99x1 0'3/uL normal Not Available Not Available 09/17/2024 15:44:40 09/13/19 25 09/12/2024 CBC W Auto Diffe renti al panel - Blood eosinophils [#/volume] in blood 0.26 x10'3 /uL low: 0.02x1 0'3/uL high: 0.53x1 0'3/uL normal Not Available Not Available 09/17/2024 15:44:40 09/13/19 25 09/12/2024 CBC W Auto Diffe renti al panel - Blood basophils [#/volume] in blood 0.04 x10'3 /uL low: 0.01x1 0'3/uL high: 0.08x1 0'3/uL normal Not Available Not Available 09/17/2024 15:44:40 09/13/19 25 09/12/2024 CBC W Auto Diffe renti al panel - Blood immature granulocytes [#/volume] in blood 0.05 x10'3 /uL low: 0x10'3 /uLhig h: 0.05x1 0'3/uL normal Not Available Not Available 09/17/2024 15:44:40 09/13/1909/12/2024 CBC W Auto Diffe renti al panel - Blood nucleated erythrocytes /leukocytes [ratio] in blood 0 % high: 0% normal Not Available Not Available 09/17/2024 15:44:40 09/13/19 25 09/12/2024 CBC W Auto Diffe renti al panel - Blood nucleated erythrocytes [#/volume] in blood by automated count 0 x10'3 /uL normal Not Available Not Available 09/18/19 15:44:40 09/14/1909/13/2024 Gluco se [Mass /volu me] in Capil dulce blood by Gluco meter glucose [mass/volume ] in capillary blood by glucometer 216 mg/dL low: 74mg/d Lhigh: 99mg/d L high Not Available Not Available 09/17/2024 15:44:42 09/14/19 25 09/13/2024 Gluco se [Mass /volu me] in Capil dulce blood by Gluco meter glucose [mass/volume ] in capillary blood by glucometer 152 mg/dL low: 74mg/d Lhigh: 99mg/d L high Not Available Not Available 09/17/2024 15:44:42 09/14/1909/13/2024 Hemog lobin A1c/H emogl obin. total in Blood hemoglobin A1C/hemoglob in.total in blood 8 % low: 4%high : 6% high Not Available Not Available 09/17/2024 15:44:42 09/14/19 25 09/13/2024 Gluco se [Mass /volu me] in Capil dulce blood by Gluco meter glucose [mass/volume ] in capillary blood by glucometer 192 mg/dL low: 74mg/d Lhigh: 99mg/d L high Not Available Not Available 09/17/2024 15:44:42 09/14/19 25 09/13/2024 Gluco se [Mass /volu me] in Capil dulce blood by Gluco meter glucose [mass/volume ] in capillary blood by glucometer 162 mg/dL low: 74mg/d Lhigh: 99mg/d L high Not Available Not Available 09/17/2024 15:44:42 09/14/19 25 09/13/2024 Thyro xine (T4) free [Mass /volu me] in Serum or Plasm a thyroxine (T4) free [mass/volume ] in serum or plasma 0.99 NG/dL low: 0.78NG /dLhig h: 2.19NG /dL normal Not Available Not Available 09/17/2024 15:44:41 09/14/19 25 09/13/2024 CBC W Auto Diffe renti al panel - Blood leukocytes [#/volume] in blood by automated count 4.2 x10'3 /uL low: 4.2x10 '3/uLh igh: 10.8x1 0'3/uL normal Not Available Not Available 09/17/2024 15:44:42 09/14/19 25 09/13/2024 CBC W Auto Diffe renti al panel - Blood erythrocytes [#/volume] in blood by automated count 4.35 x10'6 /uL low: 4.1x10 '6/uLh igh: 5.8x10 '6/uL normal Not Available Not Available 09/17/2024 15:44:42 09/14/19 25 09/13/2024 CBC W Auto Diffe renti al panel - Blood hemoglobin [mass/volume ] in blood 13.5 g/dL low: 13.2g/ dLhigh : 17g/dL normal Not Available Not Available 09/17/2024 15:44:42 09/14/19 25 09/13/2024 CBC W Auto Diffe renti al panel - Blood hematocrit [volume fraction] of blood by automated count 41.7 % low: 39.3%h igh: 50% normal Not Available Not Available 09/17/2024 15:44:42 09/14/19 25 09/13/2024 CBC W Auto Diffe renti al panel - Blood MCV [entitic mean volume] in red blood cells by automated count 95.9 fL low: 80fLhi gh: 97fL normal Not Available Not Available 09/17/2024 15:44:42 09/14/19 25 09/13/2024 CBC W Auto Diffe renti al panel - Blood MCH [entitic mass] by automated count 31 pg low: 27pghi gh: 33pg normal Not Available Not Available 09/17/2024 15:44:42 09/14/19 25 09/13/2024 CBC W Auto Diffe renti al panel - Blood MCHC [entitic mass/volume] in red blood cells by automated count 32.4 g/dL low: 31g/dL high: 36g/dL normal Not Available Not Available 09/17/2024 15:44:42 09/14/19 25 09/13/2024 CBC W Auto Diffe renti al panel - Blood erythrocyte [distwidth] in red blood cells 13.5 % low: 11.8%h igh: 15.5% normal Not Available Not Available 09/17/2024 15:44:42 09/14/19 25 09/13/2024 CBC W Auto Diffe renti al panel - Blood platelets [#/volume] in blood by automated count 127 x10'3 /uL low: 150x10 '3/uLh igh: 400x10 '3/uL low Not Available Not Available 09/17/2024 15:44:42 09/14/19 25 09/13/2024 CBC W Auto Diffe renti al panel - Blood platelet [entitic mean volume] in blood by automated count 10.2 fL low: 9fLhig h: 12.4fL normal Not Available Not Available 09/17/2024 15:44:42 09/14/19 25 09/13/2024 CBC W Auto Diffe renti al panel - Blood neutrophils/ leukocytes in blood 32.4 % low: 39%hig h: 72% low Not Available Not Available 09/17/2024 15:44:42 09/14/19 25 09/13/2024 CBC W Auto Diffe renti al panel - Blood lymphocytes/ leukocytes in blood 53.1 % low: 16%hig h: 47% high Not Available Not Available 09/17/2024 15:44:42 09/14/19 25 09/13/2024 CBC W Auto Diffe renti al panel - Blood monocytes/le ukocytes in blood 9.4 % low: 5%high : 12% normal Not Available Not Available 09/17/2024 15:44:42 09/14/19 25 09/13/2024 CBC W Auto Diffe renti al panel - Blood eosinophils [#/volume] in blood 4.1 % low: 1%high : 7% normal Not Available Not Available 09/17/2024 15:44:42 09/14/19 25 09/13/2024 CBC W Auto Diffe renti al panel - Blood basophils/le ukocytes in blood 0.5 % low: 0%high : 2% normal Not Available Not Available 09/17/2024 15:44:42 09/14/19 25 09/13/2024 CBC W Auto Diffe renti al panel - Blood immature granulocytes /leukocytes in blood 0.5 % low: 0%high : 0.5% normal Not Available Not Available 09/17/2024 15:44:42 09/14/19 25 09/13/2024 CBC W Auto Diffe renti al panel - Blood neutrophils [#/volume] in blood 1.35 x10'3 /uL low: 1.5x10 '3/uLh igh: 8x10'3 /uL low Not Available Not Available 09/17/2024 15:44:42 09/14/19 25 09/13/2024 CBC W Auto Diffe renti al panel - Blood lymphocytes [#/volume] in blood 2.21 x10'3 /uL low: 1.07x1 0'3/uL high: 3.43x1 0'3/uL normal Not Available Not Available 09/17/2024 15:44:42 09/14/19 25 09/13/2024 CBC W Auto Diffe renti al panel - Blood monocytes [#/volume] in blood 0.39 x10'3 /uL low: 0.29x1 0'3/uL high: 0.99x1 0'3/uL normal Not Available Not Available 09/17/2024 15:44:42 09/14/19 25 09/13/2024 CBC W Auto Diffe renti al panel - Blood eosinophils [#/volume] in blood 0.17 x10'3 /uL low: 0.02x1 0'3/uL high: 0.53x1 0'3/uL normal Not Available Not Available 09/17/2024 15:44:42 09/14/19 25 09/13/2024 CBC W Auto Diffe renti al panel - Blood basophils [#/volume] in blood 0.02 x10'3 /uL low: 0.01x1 0'3/uL high: 0.08x1 0'3/uL normal Not Available Not Available 09/17/2024 15:44:42 09/14/19 25 09/13/2024 CBC W Auto Diffe renti al panel - Blood immature granulocytes [#/volume] in blood 0.02 x10'3 /uL low: 0x10'3 /uLhig h: 0.05x1 0'3/uL normal Not Available Not Available 09/17/2024 15:44:42 09/14/19 25 09/13/2024 CBC W Auto Diffe renti al panel - Blood nucleated erythrocytes /leukocytes [ratio] in blood 0 % high: 0% normal Not Available Not Available 09/17/2024 15:44:42 09/14/19 25 09/13/2024 CBC W Auto Diffe renti al panel - Blood nucleated erythrocytes [#/volume] in blood by automated count 0 x10'3 /uL normal Not Available Not Available 09/18/19 15:44:42 09/14/19 25 09/13/2024 Basic metab olic 2000 panel - Serum or Plasm a sodium [moles/volum e] in blood 136 mmol/ L low: 137mmo l/Lhig h: 145mmo l/L low Not Available Not Available 09/17/2024 15:44:42 09/14/19 25 09/13/2024 Basic metab olic 1999 panel - Serum or Plasm a potassium [moles/volum e] in serum or plasma 3.8 mmol/ L low: 3.5mmo l/Lhig h: 5.1mmo l/L normal Not Available Not Available 09/17/2024 15:44:42 09/14/19 25 09/13/2024 Basic metab olic 1999 panel - Serum or Plasm a chloride [moles/volum e] in serum or plasma 106 mmol/ L low: 98mmol /Lhigh : 107mmo l/L normal Not Available Not Available 09/17/2024 15:44:42 09/14/19 25 09/13/2024 Basic metab olic 1999 panel - Serum or Plasm a carbon dioxide, total [moles/volum e] in serum or plasma 21 mmol/ L low: 22mmol /Lhigh : 30mmol /L low Not Available Not Available 09/17/2024 15:44:42 09/14/19 25 09/13/2024 [facility] 1999 panel - Serum or Plasm a anion gap in serum or plasma by calculation 12.8 mmol/ L low: 14mmol /Lhigh : 22mmol /L low Not Available Not Available 09/17/2024 15:44:42 09/14/19 25 09/13/2024 [facility] 1999 panel - Serum or Plasm a glucose [mass/volume ] in serum or plasma 173 mg/dL low: 70mg/d Lhigh: 99mg/d L high Not Available Not Available 09/17/2024 15:44:42 09/14/19 25 09/13/2024 [facility] 1999 panel - Serum or Plasm a urea nitrogen [mass or moles/volume ] in serum or plasma 13 mg/dL low: 8mg/dL high: 19mg/d L normal Not Available Not Available 09/17/2024 15:44:42 09/14/19 25 09/13/2024 [facility] 1999 panel - Serum or Plasm a creatinine [mass/volume ] in serum or plasma 0.74 mg/dL low: 0.66mg /dLhig h: 1.25mg /dL normal Not Available Not Available 09/17/2024 15:44:42 09/14/19 25 09/13/2024 [facility] 1999 panel - Serum or Plasm a glomerular filtration rate [volume rate/area] in serum, plasma or blood by based on 1.73 sq M >60 normal Not Available Not Available 15:44:42 09/14/19 25 09/13/2024 [facility] 1999 panel - Serum or Plasm a calcium [mass/volume ] in serum or plasma 8.9 mg/dL low: 8.4mg/ dLhigh : 10.2mg /dL normal Not Available Not Available 09/17/2024 15:44:42 09/15/19 25 09/14/2024 Gluco se [Mass /volu me] in Capil dulce blood by Gluco meter glucose [mass/volume ] in capillary blood by glucometer 251 mg/dL low: 74mg/d Lhigh: 99mg/d L high Not Available Not Available 09/17/2024 15:44:43 09/15/19 25 09/14/2024 Gluco se [Mass /volu me] in Capil dulce blood by Gluco meter glucose [mass/volume ] in capillary blood by glucometer 268 mg/dL low: 74mg/d Lhigh: 99mg/d L high Not Available Not Available 09/17/2024 15:44:43 09/15/19 25 09/14/2024 Gluco se [Mass /volu me] in Capil dulce blood by Gluco meter glucose [mass/volume ] in capillary blood by glucometer 167 mg/dL low: 74mg/d Lhigh: 99mg/d L high Not Available Not Available 09/17/2024 15:44:43 09/15/19 25 09/14/2024 Basic metab olic 2000 panel - Serum or Plasm a sodium [moles/volum e] in blood 136 mmol/ L low: 137mmo l/Lhig h: 145mmo l/L low Not Available Not Available 09/17/2024 15:44:42 09/15/19 25 09/14/2024 Basic metab olic 2000 panel - Serum or Plasm a potassium [moles/volum e] in serum or plasma 4.4 mmol/ L low: 3.5mmo l/Lhig h: 5.1mmo l/L normal Not Available Not Available 09/17/2024 15:44:42 09/15/19 25 09/14/2024 Basic metab olic 2000 panel - Serum or Plasm a chloride [moles/volum e] in serum or plasma 108 mmol/ L low: 98mmol /Lhigh : 107mmo l/L high Not Available Not Available 09/17/2024 15:44:42 09/15/19 25 09/14/2024 Basic metab olic 1999 panel - Serum or Plasm a carbon dioxide, total [moles/volum e] in serum or plasma 20 mmol/ L low: 22mmol /Lhigh : 30mmol /L low Not Available Not Available 09/17/2024 15:44:42 09/15/19 25 09/14/2024 Basic metab olic 1999 panel - Serum or Plasm a anion gap in serum or plasma by calculation 12.4 mmol/ L low: 14mmol /Lhigh : 22mmol /L low Not Available Not Available 09/17/2024 15:44:42 09/15/19 25 09/14/2024 [facility] 2000 panel - Serum or Plasm a glucose [mass/volume ] in serum or plasma 250 mg/dL low: 70mg/d Lhigh: 99mg/d L high Not Available Not Available 09/17/2024 15:44:42 09/15/19 25 09/14/2024 [facility] 1999 panel - Serum or Plasm a urea nitrogen [mass or moles/volume ] in serum or plasma 14 mg/dL low: 8mg/dL high: 19mg/d L normal Not Available Not Available 09/17/2024 15:44:42 09/15/19 25 09/14/2024 [facility] - Serum or Plasm a creatinine [mass/volume ] in serum or plasma 0.87 mg/dL low: 0.66mg /dLhig h: 1.25mg /dL normal Not Available Not Available 09/17/2024 15:44:42 09/15/19 25 09/14/2024 [facility] 2000 panel - Serum or Plasm a glomerular filtration rate [volume rate/area] in serum, plasma or blood by based on 1.73 sq M >60 normal Not Available Not Available 15:44:42 09/15/19 25 09/14/2024 [facility] 2000 panel - Serum or Plasm a calcium [mass/volume ] in serum or plasma 9.3 mg/dL low: 8.4mg/ dLhigh : 10.2mg /dL normal Not Available Not Available 09/17/2024 15:44:42 09/15/19 25 09/14/2024 Gluco se [Mass /volu me] in Capil dulce blood by Gluco meter glucose [mass/volume ] in capillary blood by glucometer 171 mg/dL low: 74mg/d Lhigh: 99mg/d L high Not Available Not Available 09/17/2024 15:44:42 09/16/19 25 09/15/2024 Gluco se [Mass /volu me] in Capil dulce blood by Gluco meter glucose [mass/volume ] in capillary blood by glucometer 261 mg/dL low: 74mg/d Lhigh: 99mg/d L high Not Available Not Available 09/17/2024 15:44:43 09/16/19 25 09/15/2024 Gluco se [Mass /volu me] in Capil dulce blood by Gluco meter glucose [mass/volume ] in capillary blood by glucometer 235 mg/dL low: 74mg/d Lhigh: 99mg/d L high Not Available Not Available 09/17/2024 15:44:43 09/16/19 25 09/15/2024 Gluco se [Mass /volu me] in Capil dulce blood by Gluco meter glucose [mass/volume ] in capillary blood by glucometer 259 mg/dL low: 74mg/d Lhigh: 99mg/d L high Not Available Not Available 09/17/2024 15:44:43 09/16/19 25 09/15/2024 Valpr oate [Mass /volu me] in Serum or Plasm a valproate [mass/volume ] in serum or plasma 39.5 mcg/m L low: 50mcg/ mLhigh : 100mcg /mL low Not Available Not Available 09/17/2024 15:44:42 09/16/19 25 09/15/2024 Gluco se [Mass /volu me] in Capil dulce blood by Gluco meter glucose [mass/volume ] in capillary blood by glucometer 173 mg/dL low: 74mg/d Lhigh: 99mg/d L high Not Available Not Available 09/17/2024 15:44:43 09/16/19 25 09/15/2024 Proth rombi n time (PT) prothrombin time (PT) 11.3 secon ds low: 9.7sec ondshi gh: 12.2se conds normal Not Available Not Available 09/17/2024 15:44:43 09/16/19 25 09/15/2024 Proth rombi n time (PT) INR in platelet poor plasma by coagulation assay 1 1 normal Not Available Not Available 11/2024 15:44:43 09/16/19 25 09/15/2024 aPTT in Plate let poor plasm a by Coagu latio n assay APTT in platelet poor plasma by coagulation assay 25.5 secon ds low: 22.7se condsh igh: 30.2se conds normal Not Available Not Available 09/17/2024 15:44:42 09/16/19 25 09/15/2024 CBC W Auto Diffe renti al panel - Blood leukocytes [#/volume] in blood by automated count 4.2 x10'3 /uL low: 4.2x10 '3/uLh igh: 10.8x1 0'3/uL normal Not Available Not Available 09/17/2024 15:44:42 09/16/19 25 09/15/2024 CBC W Auto Diffe renti al panel - Blood erythrocytes [#/volume] in blood by automated count 4.48 x10'6 /uL low: 4.1x10 '6/uLh igh: 5.8x10 '6/uL normal Not Available Not Available 09/17/2024 15:44:42 09/16/19 25 09/15/2024 CBC W Auto Diffe renti al panel - Blood hemoglobin [mass/volume ] in blood 13.9 g/dL low: 13.2g/ dLhigh : 17g/dL normal Not Available Not Available 09/17/2024 15:44:42 09/16/19 25 09/15/2024 CBC W Auto Diffe renti al panel - Blood hematocrit [volume fraction] of blood by automated count 42.4 % low: 39.3%h igh: 50% normal Not Available Not Available 09/17/2024 15:44:42 09/16/19 25 09/15/2024 CBC W Auto Diffe renti al panel - Blood MCV [entitic mean volume] in red blood cells by automated count 94.6 fL low: 80fLhi gh: 97fL normal Not Available Not Available 09/17/2024 15:44:42 09/16/19 25 09/15/2024 CBC W Auto Diffe renti al panel - Blood MCH [entitic mass] by automated count 31 pg low: 27pghi gh: 33pg normal Not Available Not Available 09/17/2024 15:44:42 09/16/19 25 09/15/2024 CBC W Auto Diffe renti al panel - Blood MCHC [entitic mass/volume] in red blood cells by automated count 32.8 g/dL low: 31g/dL high: 36g/dL normal Not Available Not Available 09/17/2024 15:44:42 09/16/19 25 09/15/2024 CBC W Auto Diffe renti al panel - Blood erythrocyte [distwidth] in red blood cells 13.5 % low: 11.8%h igh: 15.5% normal Not Available Not Available 09/17/2024 15:44:42 09/16/19 25 09/15/2024 CBC W Auto Diffe renti al panel - Blood platelets [#/volume] in blood by automated count 129 x10'3 /uL low: 150x10 '3/uLh igh: 400x10 '3/uL low Not Available Not Available 09/17/2024 15:44:42 09/16/19 25 09/15/2024 CBC W Auto Diffe renti al panel - Blood platelet [entitic mean volume] in blood by automated count 9.8 fL low: 9fLhig h: 12.4fL normal Not Available Not Available 09/17/2024 15:44:42 09/16/19 25 09/15/2024 CBC W Auto Diffe renti al panel - Blood neutrophils/ leukocytes in blood 38.2 % low: 39%hig h: 72% low Not Available Not Available 09/17/2024 15:44:42 09/16/19 25 09/15/2024 CBC W Auto Diffe renti al panel - Blood lymphocytes/ leukocytes in blood 46.9 % low: 16%hig h: 47% normal Not Available Not Available 09/17/2024 15:44:42 09/16/19 25 09/15/2024 CBC W Auto Diffe renti al panel - Blood monocytes/le ukocytes in blood 9.9 % low: 5%high : 12% normal Not Available Not Available 09/17/2024 15:44:42 09/16/19 25 09/15/2024 CBC W Auto Diffe renti al panel - Blood eosinophils [#/volume] in blood 3.8 % low: 1%high : 7% normal Not Available Not Available 09/17/2024 15:44:42 09/16/19 25 09/15/2024 CBC W Auto Diffe renti al panel - Blood basophils/le ukocytes in blood 0.5 % low: 0%high : 2% normal Not Available Not Available 09/17/2024 15:44:42 09/16/19 25 09/15/2024 CBC W Auto Diffe renti al panel - Blood immature granulocytes /leukocytes in blood 0.7 % low: 0%high : 0.5% high Not Available Not Available 09/17/2024 15:44:42 09/16/19 25 09/15/2024 CBC W Auto Diffe renti al panel - Blood neutrophils [#/volume] in blood 1.59 x10'3 /uL low: 1.5x10 '3/uLh igh: 8x10'3 /uL normal Not Available Not Available 09/17/2024 15:44:42 09/16/19 25 09/15/2024 CBC W Auto Diffe renti al panel - Blood lymphocytes [#/volume] in blood 1.95 x10'3 /uL low: 1.07x1 0'3/uL high: 3.43x1 0'3/uL normal Not Available Not Available 09/17/2024 15:44:42 09/16/19 25 09/15/2024 CBC W Auto Diffe renti al panel - Blood monocytes [#/volume] in blood 0.41 x10'3 /uL low: 0.29x1 0'3/uL high: 0.99x1 0'3/uL normal Not Available Not Available 09/17/2024 15:44:42 09/16/19 25 09/15/2024 CBC W Auto Diffe renti al panel - Blood eosinophils [#/volume] in blood 0.16 x10'3 /uL low: 0.02x1 0'3/uL high: 0.53x1 0'3/uL normal Not Available Not Available 09/17/2024 15:44:42 09/16/19 25 09/15/2024 CBC W Auto Diffe renti al panel - Blood basophils [#/volume] in blood 0.02 x10'3 /uL low: 0.01x1 0'3/uL high: 0.08x1 0'3/uL normal Not Available Not Available 09/17/2024 15:44:42 09/16/19 25 09/15/2024 CBC W Auto Diffe renti al panel - Blood immature granulocytes [#/volume] in blood 0.03 x10'3 /uL low: 0x10'3 /uLhig h: 0.05x1 0'3/uL normal Not Available Not Available 09/17/2024 15:44:42 09/16/19 25 09/15/2024 CBC W Auto Diffe renti al panel - Blood nucleated erythrocytes /leukocytes [ratio] in blood 0 % high: 0% normal Not Available Not Available 09/17/2024 15:44:42 09/16/19 25 09/15/2024 CBC W Auto Diffe renti al panel - Blood nucleated erythrocytes [#/volume] in blood by automated count 0 x10'3 /uL normal Not Available Not Available 09/18/19 15:44:42 09/16/19 25 09/15/2024 Compr ehens madi metab olic 1999 panel - Serum or Plasm a sodium [moles/volum e] in blood 136 mmol/ L low: 137mmo l/Lhig h: 145mmo l/L low Not Available Not Available 09/17/2024 15:44:42 09/16/19 25 09/15/2024 Compr ehens madi metab olic 1999 panel - Serum or Plasm a potassium [moles/volum e] in serum or plasma 3.8 mmol/ L low: 3.5mmo l/Lhig h: 5.1mmo l/L normal Not Available Not Available 09/17/2024 15:44:42 09/16/19 25 09/15/2024 Compr ehens madi metab olic 1999 panel - Serum or Plasm a chloride [moles/volum e] in serum or plasma 107 mmol/ L low: 98mmol /Lhigh : 107mmo l/L normal Not Available Not Available 09/17/2024 15:44:42 09/16/19 25 09/15/2024 Compr ehens madi metab olic 1999 panel - Serum or Plasm a carbon dioxide, total [moles/volum e] in serum or plasma 20 mmol/ L low: 22mmol /Lhigh : 30mmol /L low Not Available Not Available 09/17/2024 15:44:42 09/16/19 25 09/15/2024 Compr ehens madi metab olic 1999 panel - Serum or Plasm a anion gap in serum or plasma by calculation 12.8 mmol/ L low: 14mmol /Lhigh : 22mmol /L low Not Available Not Available 09/17/2024 15:44:42 09/16/19 25 09/15/2024 [employer]pr [employer] madi Button olic 1999 panel - Serum or Plasm a glucose [mass/volume ] in serum or plasma 189 mg/dL low: 70mg/d Lhigh: 99mg/d L high Not Available Not Available 09/17/2024 15:44:42 09/16/19 25 09/15/2024 Compr ehens madi Button olic 1999 panel - Serum or Plasm a urea nitrogen [mass or moles/volume ] in serum or plasma 15 mg/dL low: 8mg/dL high: 19mg/d L normal Not Available Not Available 09/17/2024 15:44:42 09/16/19 25 09/15/2024 [facility] [employer] madi Button olic 1999 panel - Serum or Plasm a creatinine [mass/volume ] in serum or plasma 0.74 mg/dL low: 0.66mg /dLhig h: 1.25mg /dL normal Not Available Not Available 09/17/2024 15:44:42 09/16/19 25 09/15/2024 [facility] [employer] madi Button ic 1999 panel - Serum or Plasm a glomerular filtration rate [volume rate/area] in serum, plasma or blood by based on 1.73 sq M >60 normal Not Available Not Available 15:44:42 09/16/19 25 09/15/2024 [facility] [employer] [employer] [facility] 1999 panel - Serum or Plasm a alkaline phosphatase [enzymatic activity/vol ume] in serum or plasma 103 U/L low: 38U/Lh igh: 126U/L normal Not Available Not Available 09/17/2024 15:44:42 09/16/19 25 09/15/2024 [employer]pr [employer] mad[facility] 1999 panel - Serum or Plasm a alanine aminotransfe rase [enzymatic activity/vol ume] in serum or plasma 29 U/L low: 0U/Lhi gh: 50U/L normal Not Available Not Available 09/17/2024 15:44:42 09/16/19 25 09/15/2024 Compr SciGit[employer] madi metab olic 2000 panel - Serum or Plasm a aspartate aminotransfe rase [enzymatic activity/vol ume] in serum or plasma 53 U/L low: 15U/Lh igh: 46U/L high Not Available Not Available 09/17/2024 15:44:42 09/16/19 25 09/15/2024 [facility] panel - Serum or Plasm a bilirubin.to aggie [mass/volume ] in serum or plasma 0.4 mg/dL low: 0.2mg/ dLhigh : 1.3mg/ dL normal Not Available Not Available 09/17/2024 15:44:42 09/16/19 25 09/15/2024 [facility] 1999 panel - Serum or Plasm a calcium [mass/volume ] in serum or plasma 9.1 mg/dL low: 8.4mg/ dLhigh : 10.2mg /dL normal Not Available Not Available 09/17/2024 15:44:42 09/16/19 25 09/15/2024 [facility] 1999 panel - Serum or Plasm a protein [mass/volume ] in serum or plasma 6.7 g/dL low: 6.3g/d Lhigh: 8.2g/d L normal Not Available Not Available 09/17/2024 15:44:42 09/16/19 25 09/15/2024 [facility] 1999 panel - Serum or Plasm a albumin [mass/volume ] in serum or plasma 4 g/dL low: 3.4g/d Lhigh: 5g/dL normal Not Available Not Available 09/17/2024 15:44:42 09/16/19 25 09/15/2024 [facility] 1999 panel - Serum or Plasm a globulin [mass/volume ] in serum 2.7 g/dL low: 2.6g/d Lhigh: 4.2g/d L normal Not Available Not Available 09/17/2024 15:44:42 09/16/19 25 09/15/2024 [facility] 2000 panel - Serum or Plasm a albumin/glob ulin [mass ratio] in serum or plasma 1.5 ratio low: 1ratio high: 2ratio normal Not Available Not Available 09/17/2024 15:44:42 09/17/19 25 09/16/2024 Gluco se [Mass /volu me] in Capil dulce blood by Gluco meter glucose [mass/volume ] in capillary blood by glucometer 336 mg/dL low: 74mg/d Lhigh: 99mg/d L high Not Available Not Available 09/17/2024 15:44:43 09/17/19 25 09/16/2024 Gluco se [Mass /volu me] in Capil dulce blood by Gluco meter glucose [mass/volume ] in capillary blood by glucometer 169 mg/dL low: 74mg/d Lhigh: 99mg/d L high Not Available Not Available 09/17/2024 15:44:43 09/17/19 25 09/16/2024 Gluco se [Mass /volu me] in Capil dulce blood by Gluco meter glucose [mass/volume ] in capillary blood by glucometer 159 mg/dL low: 74mg/d Lhigh: 99mg/d L high Not Available Not Available 09/17/2024 15:44:43 09/17/19 25 09/16/2024 Gluco se [Mass /volu me] in Capil dulce blood by Gluco meter glucose [mass/volume ] in capillary blood by glucometer 245 mg/dL low: 74mg/d Lhigh: 99mg/d L high Not Available Not Available 09/17/2024 15:44:43 09/18/19 25 09/17/2024 Gluco se [Mass /volu me] in Capil dulce blood by Gluco meter glucose [mass/volume ] in capillary blood by glucometer 300 mg/dL low: 74mg/d Lhigh: 99mg/d L high Not Available Not Available 09/17/2024 15:44:43 09/18/19 25 09/17/2024 Gluco se [Mass /volu me] in Capil dulce blood by Gluco meter glucose [mass/volume ] in capillary blood by glucometer 238 mg/dL low: 74mg/d Lhigh: 99mg/d L high Not Available Not Available 09/17/2024 15:44:43 10/26/19 25 10/25/2024 Tropo antonia I.car diac [Mass /volu me] in Serum or Plasm a by Detec tion limit <= 0.01 ng/mL troponin I.cardiac [mass/volume ] in serum or plasma by detection limit <= 0.01 NG/mL 0.013 NG/mL low: 0NG/mL high: 0.034N G/mL normal Not Available Not Available 10/26/2024 00:11:49 10/26/19 25 10/25/2024 Magne sium [Mass /volu me] in Serum or Plasm a magnesium [mass/volume ] in serum or plasma 2.2 mg/dL low: 1.6mg/ dLhigh : 2.3mg/ dL normal Not Available Not Available 10/26/2024 00:11:49 10/26/19 25 10/25/2024 Compr ehens madi metab olic 1999 panel - Serum or Plasm a sodium [moles/volum e] in blood 137 mmol/ L low: 137mmo l/Lhig h: 145mmo l/L normal Not Available Not Available 10/26/2024 00:11:48 10/26/19 25 10/25/2024 Compr ehens madi metab olic 1999 panel - Serum or Plasm a potassium [moles/volum e] in serum or plasma 4.2 mmol/ L low: 3.5mmo l/Lhig h: 5.1mmo l/L normal Not Available Not Available 10/26/2024 00:11:48 10/26/19 25 10/25/2024 Compr ehens madi metab olic 2000 panel - Serum or Plasm a chloride [moles/volum e] in serum or plasma 106 mmol/ L low: 98mmol /Lhigh : 107mmo l/L normal Not Available Not Available 10/26/2024 00:11:48 10/26/19 25 10/25/2024 Compr ehens madi metab olic 1999 panel - Serum or Plasm a carbon dioxide, total [moles/volum e] in serum or plasma 19 mmol/ L low: 22mmol /Lhigh : 30mmol /L low Not Available Not Available 10/26/2024 00:11:48 10/26/19 25 10/25/2024 Compr [employer] madi metab olic 1999 panel - Serum or Plasm a anion gap in serum or plasma by calculation 16.2 mmol/ L low: 14mmol /Lhigh : 22mmol /L normal Not Available Not Available 10/26/2024 00:11:48 10/26/19 25 10/25/2024 [facility] [employer] [facility] 1999 panel - Serum or Plasm a glucose [mass/volume ] in serum or plasma 200 mg/dL low: 70mg/d Lhigh: 99mg/d L high Not Available Not Available 10/26/2024 00:11:48 10/26/19 25 10/25/2024 [facility] [employer] [facility] 1999 panel - Serum or Plasm a urea nitrogen [mass or moles/volume ] in serum or plasma 20 mg/dL low: 8mg/dL high: 19mg/d L high Not Available Not Available 10/26/2024 00:11:48 10/26/19 25 10/25/2024 [facility] [employer] [facility] [employer] 1999 panel - Serum or Plasm a creatinine [mass/volume ] in serum or plasma 0.9 mg/dL low: 0.66mg /dLhig h: 1.25mg /dL normal Not Available Not Available 10/26/2024 00:11:48 10/26/19 25 10/25/2024 [facility] 1999 panel - Serum or Plasm a glomerular filtration rate [volume rate/area] in serum, plasma or blood by based on 1.73 sq M >60 normal Not Available Not Available 00:11:48 10/26/19 25 10/25/2024 [facility] 1999 panel - Serum or Plasm a alkaline phosphatase [enzymatic activity/vol ume] in serum or plasma 108 U/L low: 38U/Lh igh: 126U/L normal Not Available Not Available 10/26/2024 00:11:48 10/26/19 25 10/25/2024 [facility] [employer] [facility] 1999 panel - Serum or Plasm a alanine aminotransfe rase [enzymatic activity/vol ume] in serum or plasma 28 U/L low: 0U/Lhi gh: 50U/L normal Not Available Not Available 10/26/2024 00:11:48 10/26/19 25 10/25/2024 [facility] [employer] [facility] 2000 panel - Serum or Plasm a aspartate aminotransfe rase [enzymatic activity/vol ume] in serum or plasma 48 U/L low: 15U/Lh igh: 46U/L high Not Available Not Available 10/26/2024 00:11:48 10/26/19 25 10/25/2024 [facility] [employer] [facility] 1999 panel - Serum or Plasm a bilirubin.to aggie [mass/volume ] in serum or plasma 0.5 mg/dL low: 0.2mg/ dLhigh : 1.3mg/ dL normal Not Available Not Available 10/26/2024 00:11:48 10/26/19 25 10/25/2024 [facility] panel - Serum or Plasm a calcium [mass/volume ] in serum or plasma 9.3 mg/dL low: 8.4mg/ dLhigh : 10.2mg /dL normal Not Available Not Available 10/26/2024 00:11:48 10/26/19 25 10/25/2024 [facility] 1999 panel - Serum or Plasm a protein [mass/volume ] in serum or plasma 7.4 g/dL low: 6.3g/d Lhigh: 8.2g/d L normal Not Available Not Available 10/26/2024 00:11:48 10/26/19 25 10/25/2024 [facility] 1999 panel - Serum or Plasm a albumin [mass/volume ] in serum or plasma 4.5 g/dL low: 3.4g/d Lhigh: 5g/dL normal Not Available Not Available 10/26/2024 00:11:48 10/26/19 25 10/25/2024 [facility] 1999 panel - Serum or Plasm a globulin [mass/volume ] in serum 2.9 g/dL low: 2.6g/d Lhigh: 4.2g/d L normal Not Available Not Available 10/26/2024 00:11:48 10/26/19 25 10/25/2024 [facility] 1999 panel - Serum or Plasm a albumin/glob ulin [mass ratio] in serum or plasma 1.6 ratio low: 1ratio high: 2ratio normal Not Available Not Available 10/26/2024 00:11:48 10/26/19 25 10/25/2024 Fibri n D-dim er FEU [Mass /volu me] in Plate let poor plasm a fibrin D-dimer feu [mass/volume ] in platelet poor plasma <0.19 low: 0mg/L feuhig h: 0.49mg /L feu normal Not Available Not Available 10/26/2024 00:11:48 10/26/19 25 10/25/2024 CBC W Auto Diffe tee manning panel - Blood leukocytes [#/volume] in blood by automated count 7.1 x10'3 /uL low: 4.2x10 '3/uLh igh: 10.8x1 0'3/uL normal Not Available Not Available 10/26/2024 00:11:48 10/26/19 25 10/25/2024 CBC W Auto Diffe tee manning panel - Blood erythrocytes [#/volume] in blood by automated count 4.42 x10'6 /uL low: 4.1x10 '6/uLh igh: 5.8x10 '6/uL normal Not Available Not Available 10/26/2024 00:11:48 10/26/19 25 10/25/2024 CBC W Auto Diffsergey manning panel - Blood hemoglobin [mass/volume ] in blood 13.8 g/dL low: 13.2g/ dLhigh : 17g/dL normal Not Available Not Available 10/26/2024 00:11:48 10/26/1910/25/2024 CBC W Auto Diffsergey manning panel - Blood hematocrit [volume fraction] of blood by automated count 43 % low: 39.3%h igh: 50% normal Not Available Not Available 10/26/2024 00:11:48 10/26/1910/25/2024 CBC W Auto Diffsergey manning panel - Blood MCV [entitic mean volume] in red blood cells by automated count 97.3 fL low: 80fLhi gh: 97fL high Not Available Not Available 10/26/2024 00:11:48 10/26/1910/25/2024 CBC W Auto Diffsergey manning panel - Blood MCH [entitic mass] by automated count 31.2 pg low: 27pghi gh: 33pg normal Not Available Not Available 10/26/2024 00:11:48 10/26/19 25 10/25/2024 CBC W Auto Diffsergey manning panel - Blood MCHC [entitic mass/volume] in red blood cells by automated count 32.1 g/dL low: 31g/dL high: 36g/dL normal Not Available Not Available 10/26/2024 00:11:48 10/26/1910/25/2024 CBC W Auto Diffe renti al panel - Blood erythrocyte [distwidth] in red blood cells 13.8 % low: 11.8%h igh: 15.5% normal Not Available Not Available 10/26/2024 00:11:48 10/26/19 25 10/25/2024 CBC W Auto Diffe renti al panel - Blood platelets [#/volume] in blood by automated count 161 x10'3 /uL low: 150x10 '3/uLh igh: 400x10 '3/uL normal Not Available Not Available 10/26/2024 00:11:48 10/26/19 25 10/25/2024 CBC W Auto Diffe renti al panel - Blood platelet [entitic mean volume] in blood by automated count 10.2 fL low: 9fLhig h: 12.4fL normal Not Available Not Available 10/26/2024 00:11:48 10/26/19 25 10/25/2024 CBC W Auto Diffe renti al panel - Blood neutrophils/ leukocytes in blood 43.4 % low: 39%hig h: 72% normal Not Available Not Available 10/26/2024 00:11:48 10/26/19 25 10/25/2024 CBC W Auto Diffe renti al panel - Blood lymphocytes/ leukocytes in blood 45.4 % low: 16%hig h: 47% normal Not Available Not Available 10/26/2024 00:11:48 10/26/19 25 10/25/2024 CBC W Auto Diffe renti al panel - Blood monocytes/le ukocytes in blood 7.9 % low: 5%high : 12% normal Not Available Not Available 10/26/2024 00:11:48 10/26/19 25 10/25/2024 CBC W Auto Diffe renti al panel - Blood eosinophils [#/volume] in blood 1.5 % low: 1%high : 7% normal Not Available Not Available 10/26/2024 00:11:48 10/26/19 25 10/25/2024 CBC W Auto Diffe renti al panel - Blood basophils/le ukocytes in blood 0.7 % low: 0%high : 2% normal Not Available Not Available 10/26/2024 00:11:48 10/26/1910/25/2024 CBC W Auto Diffe renti al panel - Blood immature granulocytes /leukocytes in blood 1.1 % low: 0%high : 0.5% high Not Available Not Available 10/26/2024 00:11:48 10/26/1910/25/2024 CBC W Auto Diffe renti al panel - Blood neutrophils [#/volume] in blood 3.08 x10'3 /uL low: 1.5x10 '3/uLh igh: 8x10'3 /uL normal Not Available Not Available 10/26/2024 00:11:48 10/26/19 25 10/25/2024 CBC W Auto Diffe renti al panel - Blood lymphocytes [#/volume] in blood 3.22 x10'3 /uL low: 1.07x1 0'3/uL high: 3.43x1 0'3/uL normal Not Available Not Available 10/26/2024 00:11:48 10/26/19 25 10/25/2024 CBC W Auto Diffe renti al panel - Blood monocytes [#/volume] in blood 0.56 x10'3 /uL low: 0.29x1 0'3/uL high: 0.99x1 0'3/uL normal Not Available Not Available 10/26/2024 00:11:48 10/26/19 25 10/25/2024 CBC W Auto Diffe renti al panel - Blood eosinophils [#/volume] in blood 0.11 x10'3 /uL low: 0.02x1 0'3/uL high: 0.53x1 0'3/uL normal Not Available Not Available 10/26/2024 00:11:48 10/26/19 25 10/25/2024 CBC W Auto Diffe renti al panel - Blood basophils [#/volume] in blood 0.05 x10'3 /uL low: 0.01x1 0'3/uL high: 0.08x1 0'3/uL normal Not Available Not Available 10/26/2024 00:11:48 10/26/19 25 10/25/2024 CBC W Auto Diffe renti al panel - Blood immature granulocytes [#/volume] in blood 0.08 x10'3 /uL low: 0x10'3 /uLhig h: 0.05x1 0'3/uL high Not Available Not Available 10/26/2024 00:11:48 10/26/19 25 10/25/2024 CBC W Auto Diffe renti al panel - Blood nucleated erythrocytes /leukocytes [ratio] in blood 0 % high: 0% normal Not Available Not Available 10/26/2024 00:11:48 10/26/19 25 10/25/2024 CBC W Auto Diffe renti al panel - Blood nucleated erythrocytes [#/volume] in blood by automated count 0 x10'3 /uL normal Not Available Not Available 10/27/19 00:11:48 11/02/19 25 11/01/2024 Gluco se [Mass /volu me] in Capil dulce blood by Gluco meter glucose [mass/volume ] in capillary blood by glucometer 190 mg/dL low: 74mg/d Lhigh: 99mg/d L high Not Available Not Available 11/01/2024 15:48:04 03/11/20 24 03/11/2024 XR, finge r(s) No observ ation record ed. [facility] [address] [place], [address], 03/12/2024 12:49:50 03/24/20 24 03/24/2024 XR, chest No observ ation record ed. [facility] [address] [place], [address], 03/26/2024 10:32:09 03/24/20 24 03/24/2024 CT, head, w/o contr ast No observ ation record ed. [facility] [address] [place], [address], 03/26/2024 10:32:49 04/17/20 24 04/17/2024 XR, finge r(s) No observ ation record ed. [facility] [address] [place], [address], 04/20/2024 22:27:04 04/17/20 24 04/17/2024 XR, hip + pelvi s, bilat eral, 3 or 4 view No observ ation record ed. [facility] [address] [place], [address], 04/21/2024 09:25:59 04/17/20 24 04/17/2024 XR, cervi ángela spine , 4 or 5 view No observ ation record ed. [facility] [address] [place], [address], 04/21/2024 09:26:52 05/16/19 25 05/16/2024 XR, chest No observ ation record ed. [address], [address], 05/20/2024 17:33:44 07/10/19 25 07/10/2024 XR, chest No observ ation record ed. [email or web address] [facility] [address] [place], [address], 07/11/2024 09:04:53 07/27/19 25 07/26/2024 XR, chest No observ ation record ed. [address] [place], [address], 07/30/2024 17:19:22 07/31/19 25 07/29/2024 US, echo ardio gram No observ ation record ed. [facility] [address] [facility] [address], [place], [address], 07/31/2024 12:22:52 09/09/19 25 09/08/2024 CT, brain , w/o contr ast No observ ation record ed. [address], [address], 09/10/2024 23:19:39 09/13/19 25 09/12/2024 CT, head, w/o contr ast No observ ation record ed. [address] [place], [address], 09/19/2024 08:27:08 09/13/19 25 09/12/2024 XR, chest No observ ation record ed. [address] [place], [address], 09/19/2024 08:27:08 10/26/19 25 10/25/2024 XR, chest No observ ation record ed. [facility] [address] [place], [address], 11/03/2024 08:57:14 11/02/19 25 11/01/2024 CT, head, w/o contr ast No observ ation record ed. [facility] [address] [place], [address], 11/03/2024 09:03:41 11/02/19 25 11/01/2024 CT, maxil lofac ial, w/o contr ast No observ ation record ed. [facility] [address] [place], [address], 11/03/2024 09:03:53 Result Notes None recorded. Problems Name Problem SNOMED Code Status Onset Date Resolution Date Notes Provider Name and Address Organization Details Recorded Time Type 2 diabetes mellitus without complicatio n 303739458 Active 2023 Mina Wilson MD Attn: Francisco yanez,[address] [place], [address], [facility] 4 22:18:13 Upper respiratory infection 89792608 Active 2023 Mina Wilson MD Attn: Francisco yanez,[address] [facility], [place], [address], [facility] 4 22:18:15 Essential hypertensio n 59568537 Active 2023 Mina Wilson MD Attn: Francisco yanez,[address] [place], [place], [address] [place] [address] 2, [place] - [facility] 4 22:18:16 Hyperlipide daniel 55332465 Active 2023 Mina Wilson MD Attn: Francisco yanez,[address] [place], [place], [address] [place] [address], [place] - [facility] 4 22:18:18 Mixed anxiety and depressive disorder 025823755 Active 2023 Mina Wilson MD Attn: Francisco yanez,[address] [place], [place], [address] [place] [address], [place] - [facility] 4 22:18:20 Vitamin D below reference range 417972851 Active 2023 Mina Wilson MD Attn: Francisco yanez,[address] [facility], [place], [place], [address] [place] [address] 2, [place] - [facility] 4 22:18:21 Hypothyroid ism 33143967 Active 2023 Mina Wilson MD Attn: Francisco yanez,[address] [facility], [place], [place], [address] [place] [address] 2, [place] - [facility] 4 22:18:23 Cough 38614698 Active 2024 Marsha Miller MA null, [place] - [facility] 5 11:45:49 Backache 229961330 Active 2024 Marsha Miller [place] null, [place] - [facility] 5 11:46:48 Pain in right hand 9836449953720 09 Active 2024 Marsha Miller MA null, [place] - [facility] 5 11:46:49 Notes:Some problems listed i n Documents: #[id number], #[id number] could not be added to this patient's chart. Please review these documents and add these problems to the patient's chart manually as needed. Problem Notes None recorded. Procedures Surgical History Date Name Laterality Status Provider Name and Address Organization Details Recorded Time Eye Surgery completed Thea Clark MA [facility] 08/03/2023 13:14:13 Pacemaker completed Thea Clark MA [facility] 08/03/2023 13:14:21 Imaging Results None recorded. Procedure Notes None recorded. Medical Equipment None Reported. Allergies Allergen ID Allergen Name Allergen Category Reaction Reaction Severity Criticality Documentation Date Start Date Code Code System Note Provider Name and Address Organization Details Recorded Time 049899 carbamaze pine medicatio n Not available Not available low 06/18/20242020 RxNorm unrec ogniz ed react ion (text : Flush ing (skin ), code: 21378 0007) (from ) [facility] 16[facility]56:38 849743 metformin medicatio n other Not available low 06/18/20242020 6809 RxNorm [facility] 16:56:41 041607 phenobarb ital medicatio n Not available Not available Not available 06/18/20242020 8134 RxNorm unrec ogniz ed react ion (text : Unkno wn, code: 33888 5006) (from ) [facility] Alex [facility] 16:56:46 Medications Name Sig Start Date Stop Date [...] TAKE 1 TABLET BY MOUTH EVERY DAY 11/25 completed Not Available Not Available Not Available doxycycline hyclate 100 mg capsule TAKE 1 CAPSULE BY MOUTH TWICE DAILY 11/25 completed Not Available Not Available Not Available atorvastati n 20 mg tablet Take 1 tablet every day by oral route. active Not Available Not Available No t Available citalopram 40 mg tablet TAKE 1 [...] TABLET BY MOUTH DAILY FOR 5 DAYS 11/25 completed Not Available Not Available Not Available acetaminoph [...] completed Not Available Not Available Not Available [employer] Ultra Test strips USE TO TEST TWICE DAILY active Not Available Not Available No t Available benzonatate 100 mg capsule TAKE 1 CAPSULE BY MOUTH EVERY 8 HOURS NEEDED 11/25 completed Not Available Not Available Not Available nortriptyli ne 75 mg capsule TAKE 1 CAPSULE BY MOUTH TWICE DAILY active Not Available Not Available No t Available cephalexin 500 mg capsule TAKE 1 CAPSULE BY MOUTH THREE TIMES DAILY 11/22 completed Not Available Not Available Not Available [...] BY MOUTH EVERY DAY IN THE MORNING 11/25 completed Not Available Not Available Not Available [...] in Arterial blood by Pulse oximetry Systolic And Diastolic Provider Name and Address Organization Details Last Updated DateTime 5 175.26 cm 35.6 kg/m2 722333. 2 g 87 /min 97 % 97 % 120/76 mm[Hg] [facility] 5 16:56:23 Date Recorded Body height Body mass index (BMI) Body weight Heart rate Oxygen saturation Oxygen saturation in Arterial blood by Pulse oximetry Systolic And Diastolic Provider Name and Address Organization Details Last Updated DateTime 5 175.26 cm 35.1 kg/m2 370998. 91 g 66 /min 97 % 97 % 120/62 mm[Hg] Desire Alcazar MA [facility] 5 11:47:07 Date Recorded Body height Body mass index (BMI) Body weight Oxygen saturation Oxygen saturation in Arterial blood by Pulse oximetry Heart rate Systolic And Diastolic Provider Name and Address Organization Details Last Updated DateTime 5 175.26 cm 33.4 kg/m2 166690. 88 g 95 % 95 % 84 /min 118/72 mm[Hg] [facility] 5 11:21:43 Date Recorded Body height Body mass index (BMI) Body weight Heart rate Oxygen saturation Oxygen saturation in Arterial blood by Pulse oximetry Systolic And Diastolic Provider Name and Address Organization Details Last Updated DateTime 4 175.26 cm 34.2 kg/m2 852895. 71 g 85 /min 97 % 97 % 112/64 mm[Hg] Desire Alcazar MA [facility] 4 11:16:13 Date Recorded Body height Body mass index (BMI) Body weight Heart rate Oxygen saturation Oxygen saturation in Arterial blood by Pulse oximetry Systolic And Diastolic Provider Name and Address Organization Details Last Updated DateTime 175.26 cm 35.1 kg/m2 024398. 62 g 91 /min 97 % 97 % 122/68 mm[Hg] Desire Alcazar MA [place] - [facility] 16:20:37 Social History Question Answer Notes LastModified by Organizat ion Details LastModified Time Tobacco Smoking Status Former Smoker Thea Clark MA null, [place] - [facility] 08/03/2023 13:12:29 Do You Have An Advance Directive? No Information n ot available 08/03/2023 Are You Blind Or Do [...] Date Of Your Most Recent Tobacco Screening? 11/25/2024 [email or web address] Information not available 11/25/2024 What Is Your Current Pack Years? 20-29packyear [...] PPD Information not available 08/03/2023 Do You Use Sunscreen Routinely? No Information not available 08/03/2023 Has Tobacco Cessation Counseling Been Provided? No Information not available 08/03/2023 How Many Years Have You Smoked Tobacco? 30 Information not available 08/03/2023 Sex: Male Functional Status Question Answer Note LastModified by Organizat ion Details LastModified Time Do you use any illicit or recreational drugs? No Information not available 08/03/2023 Do you or have you ever used any other forms of tobacco or nicotine? No Information not available 08/03/2023 What is your level of alcohol consumption? None Information not available 08/03/2023 Are you currently employed? No Information not available 03/11/2024 Are you able to care for yourself? Yes Information n ot available 08/03/2023 What is your exercise level? Moderate Information not available 08/03/2023 Mental Status Question Answer Note LastModified by Organization D etails LastModified Time Do you feel stressed (tense, restless, nervous, or anxious, or unable to sleep at night)? [id number] Information not available 08/03/2023 Family History Nothing Reported. Medical History Condition Response Coronary Artery Disease N Other N High Blood Pressure N Atrial Fibrillation N Kidney or Bladder Problems N Thyroid Problems N GI Problems N Depression Y COPD N Blood Clots N Skin Problems N Anemia N Heart Attack ([place]) N Anxiety Disorder N Diabetes Y Muscle, [...] [facility] 11/06/2023 12:22:11 Pneumococcal conjugate PCV20, polysaccharide [id number] conjugate, adjuvant, PF 3 completed NIMA Johnson, [...] virus, quadrivalent, PF 8 completed Marsha Miller [place] null, [place] - [facility] 11/06/2023 12:22:11 Influenza, split virus, quadrivalent, PF 2 completed Marsha Miller [place], [place] [facility] 11/06/2023 12:22:11 Pneumococcal Conjugate, unspecified formulation 3 completed NIMA Johnson, [place] - [facility] 11/06/2023 12:22:11 Past Encounters Encounter ID Performer Location Encounter Start Date Encounter Closed Date Diagnosis/Indication Diagnosis SNOMED-CT Code Diagnosis ICD10 Code Diagnosis Note [id number] Mina Wilson MD [facility] (Adult Med) [address] [place] [address] [phone] 08/03/2023 12:10:41 08/03/2023 13:51:25 Type 2 diabetes mellitus without complication 066220206 E11.9 Upper resp iratory infection 55650329 J06.9 Essential hypertension 69393967 I10 Hyperlipidemia 15431544 E78.5 Mixed anxi ety and depressive disorder 981512046 F41.8 Vitamin D below reference range 815782886 E55.9 Hypothyroidism 32046271 E03.9 Gastroesop hageal reflux disease without esophagitis 161423714 K21.9 [id number] Mina Wilson MD [facility] (Adult Med) [address] [place] [address] [phone] 11/06/2023 10:30:44 11/06/2023 12:32:13 Obesity 829194438 E66.8 Upper resp iratory infection 01009643 J06.9 Essential hypertension 66788273 I10 Hyperlipidemia 71119892 E78.5 Hypothyroidism 71247550 E03.9 Type 2 darren betes mellitus without complication 502202641 E11.9 [id number] MD Judi Castro (Adult Med) [address] [place] [address] [phone] 0 02/05/2024 10:20:13 02/05/2024 12:16:58 Obesity 580249453 E66.8 Essential hypertension 28477446 I10 Hyperlipidemia 16815475 E78.5 Hypothyroidism 66205351 E03.9 Type 2 darren betes mellitus without complication 563638768 E11.9 [id number] MD Judi Castro (Adult Med) [address] [place] [address] [phone] 03/11/2024 10:54:33 03/11/2024 12:11:15 Obesity 400580114 E66.9 Pain in fi nger of right hand 4438330831 83728 M79.644 Hypothyroidism 55109048 E03.9 Hyperlipidemia 23947746 E78.5 Essential hypertension 16304776 I10 [id number] MD Judi Castro (Adult Med) [address] [place] [address] [phone] 0 04/23/2024 15:24:08 04/23/2024 16:42:58 Cellulitis of lower limb 382761438 L03.119 [id number] MD Judi Castro (Adult Med) [address] [place] [address] [phone] 0 06/18/2024 16:41:31 06/18/2024 17:21:57 Body mass index 30+ - obesity 779683929 Z68.35 Obesity 186620266 E66.9 Cellulitis of lower limb 596768684 L03.676 [id number] MD Judi Castro (Adult Med) [address] [place] [address] [phone] 0 08/20/2024 11:31:48 08/20/2024 12:21:24 Body mass index 30+ - obesity 280886730 Z68.35 Obesity 424144430 E66.9 Essential hypertension 22470573 I10 Hyperlipidemia 70922442 E78.5 Hypothyroidism 66020094 E03.9 Mixed anxi ety and depressive disorder 719615947 F41.8 [id number] MD Judi Castro (Adult Med) [address] [place] [address] [phone] 0 11/25/2024 10:45:07 11/25/2024 11:50:24 Body mass index 30+ - obesity 329372552 Z68.33 Obese class I 8086306274 92438 E66.811 Cough 76086245 R05.9 Backache 119222047 M54.9 Pain in right hand 11902 57875 31544 M79.641 Health Concerns Section Related Observation LastModified by Organization Detai ls LastModified Time None Recorded Concern Status LastModified by Organization Details LastModified Time None Recorded Advance Directives Directive N: Payers Insurance Date Sequence Insurance Name Policy Number Policy Álvarez Covered Member ID Álvarez Member ID Guarantor Name 11/27/2024 2 [place] WHEN MED[place]ARE OR MEDICARE REPLACEMENT PRIMARY) Dennis Tay Jose Carlos [id number] Dennis Austen Jose Carlos 11/25/[address] [facility] (MEDICARE REPLACEMENT/AD VANTAGE - HMO) [id number] Dennis Branch [id number] Dennis Branch 11/25/2024 2 [place] [facility] Dennis Tay Jose Carlos [id number] Dennis Branch 11/25/2024 3 [place] Dennis Tay Jose Carlos [id number] Dennis Branch Notes Date Note Type Note [...] dizziness Mina Wilson MD Attn: Accounting, [address] [place], [address], [facility] 03/11/2024 13:33:13 04/23/2024 text/html bumped his left leg on the bedpost denies going to little open area no fever no chills draining a minimally Mina Wilson MD Attn: Accounting, [address] [place], [address], [facility] 04/26/2024 15:00:55 06/18/2024 text/html bumped his leg o n the dresser and now he is worried it is in fact Mina Wilson MD Attn: Accounting, [address] [place], [address], [facility] 06/22/2024 17:02:21 08/20/2024 text/html Interval history a neither syncopal event and went to the hospitalist checked out now he is at home Mina Wilson MD Attn: Accounting,[address] [facility], [place], [address], [facility] 08/30/2024 17:53:17
--- OUTSIDE RECORDS SUMMARY | 2024-11-30 12:37 | XMS_ITS | Data Portability ---
Author Organization [facility], Main Office Address [address] [place] [address] Care Team Providers Care Cadmium Plater Name Role Phone MINA WILSON Primary Care Provider [phone] MINA WILSON Referring Provider [phone] Assessment Encounter Date Assessment Date Assessment LastModified by Organization Details LastModified Time 03/20/2023 03/20/2023 Amoxicillin goals for weight LDL A1c blood pressure been discussed follow-up 4 months Not available 03/23/2023 18:18:21 04/17/2023 04/17/2023 Continue current therapy follow-up 4 months [email or web address] Not available 04/21/2023 11:21:19 Plan of Treatment Reminders Order Date Submit Date Provider Last Modified By Organization Details Last Modified Time Details Appointments None recorded. Lab None recorded. Referral None recorded. Procedures None recorded. Surgeries None recorded. Imaging None recorded. Medication Orders amoxicillin 875 mg tablet 2022 023 [id number], [address] [place], [place], [id number], 11:50:15 Patient TargetsNo targets recorded. Patient InstructionsNo [...] ingrid REFER ENCE: Diabe ingrid Care 2016, 39(Michael ppl.1 ):s13 -s22 Not Available [facility] (Lab) [address] [place], [address], 04/17/2024 14:15:39 04/17/20 24 04/17/2024 COMPR EHENS JOHN METAB OLIC PANEL sodium 140 mmol/ L 137-14 5 Not Available [facility] (Lab) [address] [place], [address], 04/17/2024 14:23:40 04/17/20 24 04/17/2024 COMPR EHENS JOHN METAB OLIC PANEL potassium 4.4 mmol/ L 3.5-5. [address] [facility] (Lab) [address] [place], [address], 04/17/2024 14:23:40 04/17/20 24 04/17/2024 COMPR EHENS JOHN METAB OLIC PANEL chloride 113 mmol/ L 98-107 high Not Available [facility] (Lab) [address] [place], [address], 04/17/2024 14:23:40 04/17/20 24 04/17/2024 COMPR EHENS JOHN METAB OLIC PANEL carbon dioxide 21 mmol/ L 22-30 low Not Available [facility] (Lab) [address] [place], [address], 04/17/2024 14:23:40 04/17/20 24 04/17/2024 COMPR EHENS JOHN METAB OLIC PANEL anion gap 10.4 mmol/ L 14-22 low Not Available [facility] (Lab) [address] [place], [address], 04/17/2024 14:23:40 04/17/20 24 04/17/2024 COMPR EHENS JOHN METAB OLIC PANEL glucose 156 mg/dL 70-[address] [facility] (Lab) [address] [place], [address], 04/17/2024 14:23:40 04/17/20 24 04/17/2024 COMPR EHENS JOHN METAB OLIC PANEL BUN 25 mg/dL 8-[address] [facility] (Lab) [address] [place], [address], 04/17/2024 14:23:40 04/17/20 24 04/17/2024 COMPR EHENS JOHN METAB OLIC PANEL creatinine 0.89 mg/dL 0.66-[address] [facility] (Lab) [address] [place], [address], 04/17/2024 14:23:40 04/17/20 24 04/17/2024 COMPR EHENS JOHN METAB OLIC PANEL GFR >60 Refer ence Range : [place] ge GFR Healt hy Adult : >60 [...] or ethni c subgr oups, such as [facility] nics. Outsi de the valid ated estrella [...] calcu lator is avail able on the [facility] websi te: [email or web address] :[email or web address] [email or web address] [email or web address] rg/pr ofess ional s/kdo qi/gf r_cal culat or Not Available [facility] (Lab) [address] [place], [address], 04/17/2024 14:23:40 04/17/20 24 04/17/2024 COMPR EHENS JOHN METAB OLIC PANEL alkaline phosphatase 101 U/L 38-126 Not Available [facility] (Lab) [address] [place], [address], 04/17/2024 14:23:40 04/17/20 24 04/17/2024 COMPR EHENS JOHN METAB OLIC PANEL alanine aminotransfe rase 34 U/L 0-50 Not Available [facility] (Lab) [address] [place], [address], 04/17/2024 14:23:40 04/17/20 24 04/17/2024 COMPR EHENS JOHN METAB OLIC PANEL aspartate aminotransfe rase 56 U/L 15-46 high Not Available [facility] (Lab) [address] [place], [address], 04/17/2024 14:23:40 04/17/20 24 04/17/2024 COMPR EHENS JOHN METAB OLIC PANEL bilirubin, total 0.80 mg/dL 0.20-[address] [facility] (Lab) [address] [place], [address], 04/17/2024 14:23:40 04/17/20 24 04/17/2024 COMPR EHENS JOHN METAB OLIC PANEL calcium 9.4 mg/dL 8.4-[address] [facility] (Lab) [address] [place], [address], 04/17/2024 14:23:40 04/17/20 24 04/17/2024 COMPR EHENS JOHN METAB OLIC PANEL total protein 6.8 g/dL 6.3-8. [address] [facility] (Lab) [address] [place], [address], 04/17/2024 14:23:40 04/17/20 24 04/17/2024 COMPR EHENS JOHN METAB OLIC PANEL albumin 4.1 g/dL 3.4-5. [address] [facility] (Lab) [address] [place], [address], 04/17/2024 14:23:40 04/17/20 24 04/17/2024 COMPR EHENS JOHN METAB OLIC PANEL globulin 2.7 g/dL 2.6-4. [address] [facility] (Lab) [address] [place], [address], 04/17/2024 14:23:40 04/17/20 24 04/17/2024 COMPR EHENS JOHN METAB OLIC PANEL A/G ratio 1.5 ratio 1.0-2. [address] [facility] (Lab) [address] [place], [address], 04/17/2024 14:23:40 04/17/20 24 04/17/2024 LIPID PANEL cholesterol 125 mg/dL 140-19 9 low NIH SAMANTHA NSUS RECOM MENDA TION FOR HEMANTH STERO L: ADULT CHILD LOW RISK: <200 <170 BORDE RLINE : <200- 239 ----- HIGH RISK: >240 >[address] [facility] (Lab) [address] [place], [address], 04/17/2024 14:23:45 04/17/20 24 04/17/2024 LIPID PANEL triglyceride s 343 mg/dL 0-150 high NIH SAMANTHA NSUS REPOR T RECOM MENDA TION FOR TRIGL YCERI DEYSI: ADULT CHILD LOW RISK: <150 ----- BODER LINE: 150-1 99 ----- HIGH RISK: >200 ----- Not Available [facility] (Lab) [address] [place], [address], 04/17/2024 14:23:45 04/17/20 24 04/17/2024 LIPID PANEL HDL cholesterol 12 mg/dL 40- low Not Available [facility] (Lab) [address] [place], [address], 04/17/2024 14:23:45 04/17/20 24 04/17/2024 LIPID PANEL [...] WILL NOT BE REPOR YUE. Not Available [facility] (Lab) [address] [place], [address], 04/17/2024 14:23:45 04/17/20 24 04/17/2024 PSA SCREE N PSA medicare screen 0.16 NG/mL 0.00-[address] [facility] (Lab) [address] [place], [address], 04/17/2024 14:43:21 04/13/20 23 04/13/2023 XR, chest No observ ation record ed. [address], [address], 04/14/2023 08:12:21 07/20/19 24 07/20/2023 XR, chest No observ ation record ed. [address], [address], 08/23/2023 14:10:21 03/11/20 24 03/11/2024 XR, thumb [facility] [address] [place] [address] Patien t Name: REJI BRANCH Access ion #: [id number] Sex: M : 1964 7 Dictat [...] 2023 13:36: 40 PM Page [email or web address] [facility] (Imaging) [address] [place], [address], 03/12/2024 08:24:13 Result Notes Documentation Provider Name and Address Organization Details Recorded Time Xr, Thumb : [facility] [address] [place] [address] Patient Name: REJI BRANCH Sex: M : 1965 Dictated By: Rubén Beck Attending Physician: MINA WILSON Ordering Physician: MINA WILSON Exam Date: 03/11/2024 11:33 AM Exam Name: XR FINGER/THUMB RT Admitting Diagnosis(es): CLINICAL INDICATION: pain right long finger TECHNIQUE: 3 XR FINGER/ right Comparison: None FINDINGS/IMPRESSION: There is no evidence of acute fracture or dislocation. Diffuse soft-tissue swelling of the 3rd digit. Page [address] Nohemi [address]nes APRN [address] [facility], [facility] [address], [place], [address], [facility] [employer] [facility] 03/12/2024 08:24:13 Problems Name Problem SNOMED Code Status Onset Date Resolution Date Notes Provider Name and Address Organization Details Recorded Time Pain in lower limb 91813087 Active Not Available [facility] 3 09:29:02 Rectal hemorrhag e 95853041 Active Not Available [facility] 3 09:29:02 Hyperchol esterolem ia 83755101 Active Not Available [facility] 3 09:29:02 Constipat ion 81281252 Active Not Available [facility] 3 09:29:02 Liver enzymes outside reference range 021613738 Active Not Available [facility] 3 09:29:02 Asthma 515281741 Active Not Available [facility] 3 09:29:02 Pain of joint of wrist Active Not Available [facility] 3 09:29:02 Open wound of knee and/or leg and/or ankle Completed Not Available [facility] 3 01:04:41 Pain 03903387 Active Not Available [facility] 3 09:29:02 Vitamin D deficienc y 63546403 Active Not Available [facility] 3 09:29:03 Hypothyro idism 16727783 Active Not Available [facility] 3 09:29:03 Altered mental status 654735714 Active Not Available [facility] 3 09:29:03 Pain of shoulder region 96676051 Completed Not Available [facility] 3 01:04:42 Contusion of lower leg 19719499 Completed Not Available [facility] 3 01:04:42 Pain of hip region 67370585 Completed Not Available [facility] 3 01:04:43 Essential hypertens ion 88288623 Active Not Available [facility] 3 09:29:03 Venous stasis 95839493 Active Not Available [facility] 3 09:29:03 Diabetes mellitus 48070898 Active Not Available [facility] 3 09:29:03 Pain of elbow region 42634295 Active Not Available [facility] 3 09:29:03 Rectal pain 79708538 Completed Not Available [facility] 3 01:04:44 Obstructi ve sleep apnea syndrome 11225078 Active Not Available [facility] 3 09:29:03 Pain in limb 61542295 Completed Not Available [facility] 3 01:04:45 Seizure 26380089 Active Not Available [facility] 3 09:29:03 Contusion of lower limb 24762861 Completed Not Available [facility] 3 01:04:45 Inguinal pain 181434245 Active 2017 Not Available [facility] 3 09:29:02 Pain in finger 17517832 Active 2017 Not Available [facility] 3 09:29:02 Type 2 diabetes mellitus 33823440 Active 2018 Not Available [facility] 3 09:29:03 Mixed hyperchol esterolem ia and hypertrig lyceridem ia 931044975 Active 2019 Not Available [facility] 3 09:29:02 Dyspnea on exertion 00341410 Active 2019 Not Available [facility] 3 09:29:03 Ex-smoker 5775333 Active 2019 Not Available [facility] 3 09:29:03 Pain in right foot 72521858403 9107 Active 2020 Not Available [facility] 3 09:29:03 Chronic obstructi ve pulmonary disease 96787828 Active 2020 Not Available [facility] 3 09:29:02 Vascular disorder 76959697 Active 2020 Not Available [facility] 3 09:29:03 Pain of hip region 78069393 Active 2020 Not Available [facility] 3 09:29:03 Celluliti s of right foot 62996415907 999116 Active 2020 Not Available [facility] 3 09:29:02 Syncope 818754243 Active 2020 Not Available [facility] 3 09:29:03 Dizziness 601221248 Active 2021 Not Available [facility] 3 09:29:03 Atelectas is 95572429 Active 2021 Not Available [facility] 3 09:29:03 Renewal of prescript ion Active 2021 Not Available [facility] 3 09:29:02 Bunion 809379843 Active 2021 Not Available [facility] 3 09:29:03 Diabetic periphera l neuropath y 956034562 Active 2021 Not Available [facility] 3 09:29:03 Rib pain 657276355 Active 2021 Not Available [facility] 3 09:29:03 Sinusitis 37217751 Active 2021 Not Available [facility] 3 09:29:03 [place] of toe 61415215 Active 2021 [facility] Available [facility] 3 09:29:03 Epigastri c pain 90583729 Active 2021 Not Available [facility] 3 09:29:03 Acute upper respirato ry infection 01437282 Active 2021 Not Available [facility] 3 09:29:03 Chronic cough 04961213 Active 2021 Not Available [facility] 3 09:29:03 Uncontrol led type 2 diabetes mellitus 416297554 Active 2022 Not Available [facility] 3 09:29:03 Upper respirato ry infection 50829775 Active 2022 Not Available [facility] 3 09:29:03 Respirato ry crackles 30566278 Active 2022 Not Available [facility] 3 09:29:03 Mixed hyperlipi demia 017426574 Active 2022 Not Available [facility] 3 09:29:02 Pain of left hip joint 89830669436 9100 Active 2022 Not Available [facility] 3 09:29:03 Well controlle d type 2 diabetes mellitus 168234848 Active 2022 Not Available [facility] 3 09:29:03 Low back pain 688053885 Active 2022 Not Available [facility] 3 09:29:03 Rainer 052511949 Active 2022 Turner Johnson DPM [address], [place], [address] , [employer] 3 14:04:41 Notes:[facility] diagnostic sleep study 01/04/23 AHI = [...] Nail Debridement completed Turner Johnson DPM [address], [place], [address], [employer] 06/03/2024 13:37:22 03/17/20 19 Cardiovascular Surgery completed Not Available [facility] 07/12/2022 00:57:11 06/29/19 17 Exc [id number] 1.1-2 completed Not Available [facility] 07/12/2022 00:57:11 01/22/20 15 Colonoscopy with biopsy completed Not Available [facility] 07/12/2022 00:57:11 04/26/20 14 Brain Surgery completed Not Available [facility] 07/12/2022 00:57:11 11/19/19 13 other completed Not Available [facility] 07/12/2022 00:57:11 Excisions - Specify completed Not Available [facility] 07/12/2022 00:57:11 Imaging Results None recorded. Procedure Notes None recorded. Medical Equipment None Reported. Allergies Allergen ID Allergen Name Allergen Category Reaction Reaction Severity Criticality Documentation Date Start Date Code Code System Note Provider Name and Address Organization Details Recorded Time 51321 phenobarb ital medicatio n Not available Not available Not available 07/19/2022 8134 [facility] 10:49:17 Medications Name Sig Start Date [...] tablet 30 mins before test must have horse and wagon driver active Not Available Not Available No [...] Not Available Not Available Not Available Fluvirin 3886-9389 45 mcg (15 mcg x 3)/0.5 mL [...] Updated DateTime 5 170.18 cm 36.6 kg/m2 774848. 61 g 78 /min 14 /min 98 % 98 % Comfort Hein [facility] [employer] [facility] 5 09:35:51 Date Recorded Body height Body mass index (BMI) Body weight Heart rate Respiratory rate Oxygen saturation Oxygen saturation in Arterial blood by Pulse oximetry Systolic And Diastolic Provider Name and Address Organization Details Last Updated DateTime 4 170.18 cm 36.6 kg/m2 012714. 61 g 88 /min 14 /min 99 % 99 % 119/78 mm[Hg] Comfort Hein [facility] [employer] [facility] 4 13:56:43 Date Recorded Body height Body mass index (BMI) Body weight Body temperature Heart rate Systolic And Diastolic Provider Name and Address Organization Details Last Updated DateTime 3 170.18 cm 37.1 kg/m2 397057. 39 g 99.7 [degF] 79 /min 118/60 mm[Hg] MERISSA Torres [facility] [employer] [facility] 3 10:10:47 Date Recorded Body weight Heart rate Oxygen saturation Oxygen saturation in Arterial blood by Pulse oximetry Systolic And Diastolic Provider Name and Address Organization Details Last Updated DateTime 3 098573. 25 g 77 /min 97 % 97 % 122/64 mm[Hg] Hiral Harris RN [facility] [employer] [facility] 11:48:36 Date Recorded Body height Body temperature Provider Ramila socrates and Address Organization Details Last Updated DateTime 03/26/2023 170.18 cm 97.9 [degF] Gretel Huerta MA [facility] [employer] [facility] 03/26/2023 11:28:52 Date Recorded Body height Body mass index (BMI) Body weight Body temperature Heart rate Systolic And Diastolic Provider Name and Address Organization Details Last Updated DateTime 170.18 cm 36.6 kg/m2 176516. 61 g 97.4 [degF] 78 /min 116/64 mm[Hg] MERISSA Torres [facility] [employer] [facility] 11:54:35 Social History Question Answer Notes LastModified by Organization Details LastModified Time Tobacco Smoking Status Former Smoker quit over 25 yrs ago Not Available [facility] 07/12/2022 00:51:27 Do You Have An Advance Directive? Yes Brother Is POA MIGRATION.030 171566 Information not available 07/12/2022 What Is Your Level Of Caffeine Consumption? Moderate MIGRATION.030 525911 Information not available 07/12/2022 How Much Tobacco Do You Chew? None MIGRATION.030 176746 Information not available 07/12/2022 In The 14 Days Before Symptom Onset, Have You Had Close Contact With A Laboratory-conf irmed COVID-19 While That Case Was Ill? No MIGRATION.030 152169 Information not available 07/12/2022 In The 14 Days Before Symptom Onset, Have You Had Close Contact With A Person Who Is Under Investigation For COVID-19 While That Person Was Ill? No MIGRATION.030 613739 Information not available 07/12/2022 What Type Of Diet Are You Following? REGULAR MIGRATION.030 868326 Information not available 07/12/2022 Which Illicit Or Recreational Drugs Have You Used? None MIGRATION.030 491328 Information not available 07/12/2022 What Is The Highest Grade Or Level Of School You Have Completed Or The Highest Degree You Have Received? [id number] MIGRATION.030 916376 Information not available 07/12/2022 Have There Been Any Changes To Your Family Or Social Situation? No MIGRATION.0301 590075 Information not available 07/12/2022 What Is The Fluoride Status Of Your Home? Unknown MIGRATION.0301 047512 Information not available 07/12/2022 When Did You Quit Smoking? 16+yearssincelastc igarette MIGRATION.0301 870360 Information not available 07/12/2022 Are There Any Guns Present In Your Home? No MIGRATION.0301 263151 Information not available 07/12/2022 Do You Use Insect Repellent Routinely? No MIGRATION.0301 198854 Information not available 07/12/2022 Where Do You Live? SingleLevelHouse With Basement MIGRATION.0301 923249 Information not available 07/12/2022 Do You Have A Medical Power Of Architectural Wood Model Maker? Yes MIGRATION.0301 349875 Information not available 07/12/2022 What Was The Date Of Your Most Recent Tobacco Screening? 04/17/2023 Information not available 04/17/2023 Do You Have Any Pets? Yes MIGRATION.0301 610549 Information not available 07/12/2022 What Is Your Relationship Status? Single MIGRATION.0301 741530 Information not available 07/12/2022 Do You Use Your Seat Belt Or Car Seat Routinely? Yes MIGRATION.0301 836207 Information not available 07/12/2022 Do You Have Smoke And Carbon Monoxide Detectors In Your Home? Yes MIGRATION.0301 417379 Information not available 07/12/2022 Are You Passively Exposed To Smoke? No MIGRATION.0301 689316 Information not available 07/12/2022 Are There Any Smokers In Your House? No MIGRATION.0301 680424 Information not available 07/12/2022 How Much Tobacco Do You Smoke? No MIGRATION.0301 652336 Information not available 07/12/2022 What Types Of Sporting Activities Do You Participate In? None MIGRATION.0301 817571 Information not available 07/12/2022 Do You Use Sunscreen Routinely? No MIGRATION.0301 013744 Information not available 07/12/2022 Has Tobacco Cessation Counseling Been Provided? No MIGRATION.0301 980334 Information not available 07/12/2022 How Many Years Have You Smoked Tobacco? 20 MIGRATION.0301 676830 Information not available 07/12/2022 Have You Recently Traveled Abroad? No MIGRATION.0301 376775 Information not available 07/12/2022 Do You Have Any Dietary Restrictions? No MIGRATION.0301 928497 Information not available 07/12/2022 Sex: Male Functional Status Question Answer Note LastModified by Organizat ion Details LastModified Time Do you use any illicit or recreational drugs? No MIGRATION.149342 0930 Information not available 07/12/2022 Do you or have you ever used any other forms of tobacco or nicotine? No MIGRATION.716231 7442 Information not available 07/12/2022 What is your level of alcohol consumption? None MIGRATION.104857 8926 Information not available 07/12/2022 Do you or have you ever used smokeless tobacco? Never used smokeless tobacco MIGRATION.778007 8672 Information not available 07/12/2022 What is your occupation? 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 Never used electronic cigarettes MIGRATION.493519 5298 Information not available 07/12/2022 What is your exercise level? Occasional walks MIGRATION.658569 6567 Information not available 07/12/2022 Mental Status Question Answer Note LastModified by Organizat ion Details LastModified Time Do you feel stressed (tense, restless, nervous, or anxious, or unable to sleep at night)? [id number] MIGRATION.[id number] 6 Information not available 07/12/2022 Family History Relationship Description Onset Age of this Age Resolved Age Notes LastModified by Organization Details LastModified Time Father Neoplasm of brain MIGRATION.558 [id number] Not available 07/12/2022 00:57:12 Father Family history of malignant neoplasm MIGRATION.722 [id number] Not available 07/12/2022 00:57:12 Father Family history of Hypertension MIGRATION.220 6924232 Not available 07/12/2022 00:57:12 Mother Congestive heart failure MIGRATION.364 8352891 Not available 07/12/2022 00:57:12 Mother Family history of Hypertension MIGRATION.116 3091304 Not available 07/12/2022 00:57:12 Brother Asthma MIGRATION.655 1115377 Not available 07/12/2022 00:57:12 Brother Anxiety MIGRATION.680 2235606 Not available 07/12/2022 00:57:12 Brother Family history of Hypertension MIGRATION.611 5118436 Not available 07/12/2022 00:57:12 Brother Family history of diabetes mellitus MIGRATION.930 [id number] Not available 07/12/2022 00:57:12 Brother Kidney disease MIGRATION.771 [id number] Not available 07/12/2022 00:57:12 Sister Family history of Hypertension MIGRATION.568 0613640 Not available 07/12/2022 00:57:12 Sister Family history of diabetes mellitus MIGRATION.009 5111349 Not available 07/12/2022 00:57:12 Unspecified Relation Asthma niece [email or web address] Not available 12/29 11:33:59 Medical History Condition [...] APNEA N ALLERGIES/HAYFEVER N INFECTIOUS DISEASE N PROSTATE N HEART ARRHYTHMIA N INSOMNIA N HIGH CHOLESTEROL / HYPERLIPIDEMIA Y HYPERTHYROIDISM N NEUROLOGICAL PROBLEMS N EDEMA N HYPOTHYROIDISM N CAROTID BLOCKAGE N BACK / NECK PROBLEMS Y HAVE YOU BEEN HOSPITALIZED OR SEEN IN [facility] IN THE PAST YEAR ? Y ATHEROSCLEROSIS N BREAST PROBLEMS N HERNIATED DISC N DIALYSIS N FIBROMYALGIA N OSTEOPOROSIS N ARTHRITIS N DIABETES, TYPE Y SEASONAL ALLERGIES Y HEARTBURN / REFLUX Y PLEURISY N ADD/ADHD N Bronchoscopy N HEPATITIS / LIVER DISEASE N PULMONARY DISEASE N GOUT N SLEEP DISORDER Y ALZHEIMER'S DISEASE N FATIGUE N HERPES N DEMENTIA N RETINOPATHY N SEIZURES/EPILEPSY Y HEADACHES/MIGRAINES N SLEEP STUDY N VASCULAR DISEASE N DIZZINESS N HEAD TRAUMA OR INJURY N HEART DISEASE/HEART PROBLEMS Y MULTIPLE SCLEROSIS N PULMONARY FUNCTION TEST N CARDIAC ARRHYTHMIA N CANCER: SPECIFY N PNEUMONIA N ANESTHESIA COMPLICATIONS N ATRIAL FIBRILLATION N PULMONARY EMBOLISM N AUTOIMMUNE DISEASE N Immunizations Vaccine Type Date Status Note Provider Nam e and Address Organization Details Recorded Time Pneumococcal Conjugate, unspecified formulation 3 completed Not Available [facility] 03/06/2023 01:41:15 COVID-19, mRNA, LNP-S, PF, 100 mcg/0.5mL dose or 50 mcg/0.25mL dose 1 completed Not Available [facility] 03/06/2023 01:41:15 COVID-19, mRNA, LNP-S, PF, 100 mcg/0.5mL dose or 50 mcg/0.25mL dose 1 completed Not Available [facility] 03/06/2023 01:41:15 Influenza, split virus, quadrivalent, preservative 0 completed Not Available [facility] 03/06/2023 01:41:15 Influenza, split virus, quadrivalent, preservative 0 completed Not Available [facility] 03/06/2023 01:41:15 Influenza, split virus, quadrivalent, preservative 9 completed Not Available [facility] 03[facility] 01:41:15 influenza, seasonal, intradermal, preservative free 3 completed Not Available [facility] 03/06/2023 01:41:15 COVID-19, mRNA, LNP-S, PF, 100 mcg/0.5mL dose or 50 mcg/0.25mL dose 1 completed Not Available [facility] 03/06/2023 01:41:15 Influenza, high-dose, quadrivalent, PF 1 completed Not Available [facility] 03/06/2023 01:41:15 Influenza, split virus, quadrivalent, preservative 7 completed Not Available [facility] 03/06/2023 01:41:15 Influenza, split virus, quadrivalent, PF 2 completed Not Available [facility] 03/06/2023 01:41:15 Influenza, split virus, trivalent, PF 4 completed Not Available [facility] 03/06/2023 01:41:15 Past Encounters Encounter ID Performer Location Encounter Start Date Encounter Closed Date Diagnosis/Indication Diagnosis SNOMED-CT Code Diagnosis ICD10 Code Diagnosis Note [id number] Jackie Orlando, DRAWER IN HAND-BC [facility] [address] [place] [address] 0 07/16/2020 00:00:00 07/16/2020 14:18:07 [id number] Mina Wilson MD [facility] Internal Med [place] [address] 1 08/09/2020 00:00:00 08/15/2020 09:49:27 [id number] [facility] ic[facility] [address] [place] [address] 0 08/13/2020 00:00:00 08/13/2020 16:20:54 [id number] Georgia Story [facility]_ DEFAULT_1 _1 , 09/16/2020 00:00:00 09/16/2020 16:20:03 [id number] Mina Wilson MD [facility] Internal Med [place] [address] 1 10/13/2020 00:00:00 10/23/2020 13:49:34 [id number] Mina Wilson MD [facility] Internal Med [place] [address] 1 10/15/2020 00:00:00 10/31/2020 11:28:19 [id number] Mina Wilson MD [facility] Internal Med [place] [address] 1 10/20/2020 00:00:00 11/07/2020 15:45:45 [id number] Mina Wilson MD [facility] Internal Med [place] [address] 1 10/27/2020 00:00:00 10/31/2020 20:47:32 [id number] Mina Wilson MD [facility] Internal Med [place] [address] 1 11/08/2020 00:00:00 11/08/2020 21:55:16 [id number] Mina Wilson MD A[facility]GMG Internal Med [facility] [address] [address] 12/02/2020 00:00:00 12/05/2020 10:36:38 [id number] Turner [facility] D[facility] [address] [place] [address] 12/06/2020 00:00:00 12/10/2020 17:55:37 [id number] Drew Rutherford MD AHS[facility]GMG [address] [address] 12/23/2020 00:00:00 01/10/2021 12:19:09 [id number] Turner [facility] [address] [place] [address] 0 12/28/2020 00:00:00 12/28/2020 11:55:42 [id number] Mina Wilson MD [facility] Internal Med [facility] [address] [address] 01/03/2021 00:00:00 01/23/2021 21:03:16 [id number] Georgia Story MD _ATHENA_M IGRATION_ DEFAULT_1 _1 , 01/06/2021 00:00:00 01/06/2021 14:34:46 [id number] Turner [facility] [address] [place] [address] 01/20/2021 00:00:00 01/27/2021 10:11:52 [id number] Turner Johnson DPM A[facility] Podiatry [address] [address] 01/27/2021 00:00:00 01/27/2021 10:12:30 [id number] AHS_Histor ic_Gateway AHS_GMG Pulmonolo gy [place] [address] [place] [address] 01/31/2021 00:00:00 01/31/2021 16:24:45 [id number] Mina Wilson MD A[facility] Internal Med [facility] [address] [address] 03/11/2021 00:00:00 03/11/2021 21:59:34 [id number] MD NATHAN Laws IGRATION_ DEFAULT_1 _1 , 03/24/2021 00:00:00 03/24/2021 14:54:01 [id number] AHS_Histor ic_Gateway A[facility]_GMG Pulmonolo gy [place] [address] [place] [address] 04/14/2021 00:00:00 04/14/2021 17:05:22 [id number] Turner [facility]PM [facility] [address] [place] [address] 04/21/2021 00:00:00 08/09/2021 11:13:05 [id number] AHS_Histor ic_Gateway AHS_GMG Pulmonolo gy [place] [address] [place] [address] 06/20/2021 00:00:00 06/20/2021 16:32:20 [id number] Mina Wilson MD [facility] Internal Med [facility] [address] [address] 07/13/2021 00:00:00 07/31/2021 12:48:38 [id number] Mina Wilson MD [facility] Internal Med [facility] [address] [address] 09/02/2021 00:00:00 09/02/2021 16:42:18 [id number] Turner Johnson DPM AHS_GMG [address]iat[address] [address] 09/15/2021 00:00:00 09/15/2021 22:07:10 [id number] MD NATHAN Laws IGRATION_ DEFAULT_1 _1 , 09/29/2021 00:00:00 09/29/2021 21:48:28 [id number] AHS_Histor ic_Gateway AHS_GMG Pulmonolo gy [place] [address] [place] [address] 10/18/2021 00:00:00 10/18/2021 15:48:28 [id number] Mina Wilson MD AHS_GMG Internal Med [facility] 15 2043 [facility], [address] [address] 11/04/2021 00:00:00 11/06/2021 13:27:51 [id number] Mina Wilson MD AHS[facility]GMG Internal Med [facility] 2043 [facility], [address] [address] 12/26/2021 00:00:00 12/27/2021 20:56:57 [id number] Turner Johnson DPM AHS[facility]G Podiatry [place] [address] [facility] [place] [address] 01/12/2022 00:00:00 01/12/2022 15:12:52 [id number] Turner Johnson DPM A[facility] Podiatry [place] [address] [place] [address] [place] [address] 02/16/2022 00:00:00 02/16/2022 15:47:21 [id number] Mina Wilson MD [facility] Internal Med [facility] 2043 [facility], [address] [address] 02/20/2022 00:00:00 02/20/2022 22:12:12 [id number] Mina Wilson MD [facility]G Internal Med [facility] 2043 [facility], [address] [address] 03/09/2022 00:00:00 04/08/2022 10:41:44 [id number] Mina Wilson MD [facility]G Internal Med [facility] 2043 [facility], [address] [address] 03/29/2022 00:00:00 04/02/2022 15:54:07 [id number] Jackie Orlando [facility] Pulmonolo gy [place] [address] [place] [address] 04/19/2022 00:00:00 04/19/2022 16:59:07 [id number] Jackie Orlando [facility] Pulmonolo gy [place] [address] [place] [address] 06/19/2022 00:00:00 06/19/2022 16:14:09 [id number] Mina Wilson MD [facility] Internal Med [place] [address] 2043 [facility], [address] [place] [address] 06/28/2022 00:00:00 07/02/2022 14:26:40 [id number] Jackie Orlando [facility] Pulmonolo gy [place] [address] [place] [address] 07/19/2022 10:37:21 07/20/2022 08:46:40 Chronic obstructive pulmonary disease 03399714 J44.9 PFT in 09/2018 through [facility] in chart with ratio 109%, FEV1 97%. TLC 93%, DLCO 101.Repeat ed PFT and [address] [facility], [facility] records He had a syncopal episode during [...] ight loss Obstructiv e sleep apnea syndrome 43891293 G47.33 Not compliant with PAP therapyDis cussed the risk of uncorrecte d ALLA, including Ex-cigarette smoker 5809 67515 Z87.891 Quit over 25 years ago [id number] Georgia Story MD [facility] Endo [place] [address] [place] [address] 08/07/2022 14:12:52 08/07/2022 15:27:21 Uncontrolled type 2 diabetes mellitus 163561584 E11.65 a1c 8.2% up from 7% range- [...] Recommende d patient to utilize the diabetesfo [employer].SuperDimension from the ADA website to help with food preparatio n as this presents ideal carb content per meal so this will make carb counting much easier for patient. Recommende d he incorporat e natural insulin acid condenser s such as pears, apples, cinnamon, thu and sweet potatoes to help mobilize his endogenous insulin. Recommende d up to 150 minutes of moderate level activity/e xercise weekly. Hypothyroidism 33184184 E03.9 TSH and FT4 in range- continue on LT4 75 mcg daily. Mixed hyperlipidemia 267 183051 E78.2 Continue statin and icosapent fish oil [...] he chooses to go outside of the [facility] system to obtain labwork he was [...] in his case. He voiced understand ing. [id number] Turner Johnson, DPM S_GMG Podiatry [place] [address] [place] [address] 08/31/2022 16:56:44 09/04/2022 15:43:36 Bunion [id number] M21.611 Worse to the right footoffloa ding pad dispensedc ontinue accommodat john inserts with diabetic style shoeFollow -up as needed [id number] Jackie Orlando, DRAWER IN HAND-BC S_GMG Pulmonolo gy [place] [address] [place] [address] 09/18/2022 10:12:00 09/18/2022 11:49:13 Dyspnea on exertion 23426533 R06.09 PFT in 09/2018 through [facility] in chart with ratio 109%, FEV1 97%.TLC 93%, DLCO 101.Repeat ed PFT and [address] [facility], need recordsHe had a syncopal episode during latest PFT testing 03/30/22 but he was able to complete initial lung volumes. He had normal ratio and IEH1Lwia with normal lung volumesCBC and IGE levels WNLCXR 03/2021 WNL.Methac holine challenge completed 05/12/22 - negativeDC incruse ElliptaCon tinue Albuterol PRNInstruc yue on techniqueM ultifactor alCT chest with no evidence of ILDIncreas e activityWe ight loss Obstructiv e sleep apnea syndrome 31391159 G47.33 Not compliant with PAP therapyDis cussed the risk of uncorrecte d ALLA, including Ex-cigarette smoker 2810 18549 Z87.891 Quit over 25 years agoNot a candidate for LDCTCT as above [id number] Mina Wilson MD [facility] Internal Med [place] [address] [place] [address] 09/27/2022 13:39:35 09/27/2022 15:26:47 Pain of left hip joint [id number] 61711 M25.552 Type 2 darren betes mellitus 11961035 E11.9 Essential hypertension 34744243 I10 Hypercholesterolemia 136 01730 E78.00 [id number] Jackie Darion, [facility] Pulmonolo gy [place] [address] [place] [address] 11/01/2022 11:39:44 11/01/2022 14:09:57 Dyspnea on exertion 06607921 R06.09 Multifacto ralCT chest with no evidence of ILDPFT in 09/2018 through [facility] in chart with ratio 109%, FEV1 97%.TLC 93%, DLCO 101.Repeat ed PFT and [address], need recordsHe had a syncopal episode during latest PFT testing 03/30/22 but he was able to complete initial lung volumes. He had normal ratio and ZEC6Fshp with normal lung volumesCBC and IGE levels WNLCXR 03/2021 WNL.Methac holine challenge completed 05/12/22 - negativeIn crease activityWe ight loss Obstructiv e sleep apnea syndrome 28067881 G47.33 Not compliant with PAP therapyHe agrees to restudyHe is unable to set up the home study equipment by himself, order for in-lab study Ex-cigarette smoker 2810 65755 Z87.891 Quit over 25 years ago [id number] Georgia Story MD [facility] Endo [place] [address] [place] [address] 12/11/2022 13:21:45 12/11/2022 14:33:42 Well controlled type 2 diabetes mellitus 971633558 E11.9 A1C of 5.9% down from 8.2%- continue on jardiance 25 mg daily, glimepirid e scale, pioglitazo ne 30 mg daily and januvia 50 mg daily. Discussed carb counting and how to read food labels. Recommende d patient to utilize the diabetesfo [employer]SuperDimension from the ADA website to help with food preparatio n as this presents ideal carb content per meal so this will make carb counting much easier for patient. Recommende d he incorporat e natural insulin acid condenser s such as pears, apples, cinnamon, thu and sweet potatoes to help mobilize his endogenous insulin. Recommende d up to 150 minutes of moderate level activity/e xercise weekly. Hypothyroidism 21184417 E03.9 TSH and FT4 in low range- continue on LT4 88 mcg daily. Mixed hyperlipidemia 267 749489 E78.2 Continue statin and icosapent fish oil [...] answered and refills necessary at visit today. [id number] Mina Wilson MD [facility] Internal Med [facility] 2043 [facility], [address] [address] 12/29/2022 11:25:05 12/29/2022 12:14:17 Mixed hyperlipidemia 663664041 E78.2 Essential hypertension 85290700 I10 Hypothyroidism 01295927 E03.9 Diabetes mellitus 372336 09 E11.9 [id number] Turner Johnson DPM [facility] Podiatry [place] [address] [address] 03/06/2023 13:52:06 03/06/2023 14:09:03 Bunion [id number] M21.611 Worse to the right footoffloa ding silicone offloading spacer dispensedc ontinue accommodat john inserts with diabetic style shoeFollow -up 3 months if not improved will likely schedule arthrodesi s of 1st metatarsop halangeal joint for bunion correction [place] of toe 14764083 L84 right 2nd toemonitor for wound infection and presents seek medical attention immediatel y [id number] Mina Wilson MD [facility] Internal Med [facility] 2043 [facility], [address] [address] 03/20/2023 09:44:51 03/20/2023 10:29:41 Upper respiratory infection 65201224 J06.9 Type 2 darren betes mellitus 89809195 E11.9 Essential hypertension 93680575 I10 Hypercholesterolemia 136 89362 E78.00 Hypothyroidism 67678766 E03.9 [id number] Jackie Orlando, DRAWER IN HAND-BC [facility] Pulmonolo gy [place] [address] [place] [address] 03/26/2023 11:27:32 03/26/2023 14:03:17 Dyspnea on exertion 55241242 R06.09 Multifacto ral and improvedCT chest with no evidence of ILDPFT in 09/2018 through [facility] in chart with ratio 109%, FEV1 97%.TLC 93%, DLCO 101.Repeat ed PFT and [address], need recordsHe had a syncopal episode during latest PFT testing 03/30/22 but he was able to complete initial lung volumes. He had normal ratio and GSQ2Bxzq with normal lung volumesCBC and IGE levels WNLCXR 03/2021 WNL.Methac holine challenge completed 05/12/22 - negativeIn crease activityWe ight loss Obstructiv e sleep apnea syndrome 05690631 G47.33 Not compliant with PAP therapyPos itive sleep study 12/2022 with AHI 5 and desaturati ons to 81%Discuss ed in detail with Mr Branch.He remains uninterest ed in PAP therapy.Di scussed the risks of uncorrecte d ALLA, including Ex-cigarette smoker 2810 97655 Z87.891 Quit over 25 years ago [id number] Mina Wilson MD [facility] Internal Med [facility] [address] [facility] 15 [place] [address] 04/17/2023 10:19:32 04/17/2023 12:29:26 Hypercholesterolemia 38752505 E78.00 Hypothyroidism 53593906 E03.9 [id number] Turner Johnson DPM [facility] Podiatry [place] [address] [facility] [address] [place] [address] 06/14/2023 13:50:43 06/14/2023 15:21:55 Bunion [id number] M21.611 Worse to the right footoffloa ding silicone offloading spacer dispensedo btain surgical clearancew ill plan chevron osteotomy for quicker healing time and ability to weight bear [place] of toe 11922619 L84 right 2nd toemonitor for wound infection and presents seek medical attention immediatel y [id number] Turner Johnson DPM S_[facility]G Podiatry [place] [address] [facility] [address] [place] [address] 06/03/2024 09:24:46 06/09/2024 11:39:46 Type 2 diabetes mellitus 97421933 E11.9 cont dm control per pcp/ endocrinol ogy Bunion 917608963 M21.61 1 Worse to the right footoffloa ding silicone offloading spacer dispensedo btain surgical clearancew ill plan chevron osteotomy for quicker healing time and ability to weight bear Diabetic p eripheral neuropathy 333827933 E11.40 cont dm shoe gear and insolesmon itor feet daily Health Concerns Section Related Observation LastModified by Organization Detai ls LastModified Time None Recorded Concern Status LastModified by Organization Details LastModified Time None Recorded Advance Directives Directive Y: Brother is POA Payers Insurance Date Sequence Insurance Name Policy Number Policy Álvarez Covered Member ID Álvarez Member ID Guarantor Name 11/26/2024 1 [facility] (MEDICARE REPLACEMENT/AD VANTAGE - PPO) [id number] Reji Branch [id number] Reji Branch 11/26/2024 2 [place] WHEN MEDICARE OR MEDICARE REPLACEMENT PRIMARY) Reji Branch [id number] Reji Branch Notes Date Note Type Note Provider Name and Address Organization Details Recorded Time 03/20/2023 text/html ABDs no polyphag ia no polydipsia hypertension denies headache or dizziness hyperlipidemia could do better on losing weight hypothyroid no heat or cold intolerance does have a respiratory infection Mina Wilson MD [address] [facility], [address], [place], [address], [facility] [employer] 03/23/2023 18:18:39 03/26/2023 text/html Mr Branch presen ts today to follow up on dyspnea, [...] is restless, he endorses nocturia Jackie Orlando, DRAWER IN HAND-BC [address], [place], [address], [employer] 03/26/2023 13:38:39 04/17/2023 text/html ER again for 1 o f his spells Mina Wilson MD [address], [place], [address], [employer] 04/21/2023 11:21:46 06/14/2023 text/html Patient returns for surgery of the right foot- states he got clearnce but never informed the office. Will need updated H and P clearance and will schedule right bunion surgery due to cont pain of the foot. denies any wounds but has a painful corn to the medial 2nd toe. disp a silicone toe spacer. Turner Johnson DPM [address], [place], [address], [employer] 06/14/2023 15:01:13 06/03/2024 text/html Patient is a [...] options with the patient. Turner Johnson DPM [address], [place], [address], [employer] 06/03/2024 13:40:02
--- OUTSIDE RECORDS SUMMARY | 2024-11-30 12:37 | XMS_ITS | Referral Summary ---
Author Organization [facility] Address [address] [place] [address] Care Team Providers Care Fire Prevention Forester Name Role Phone Sergey Wilson MD Primary Care Provider [phone] Encounters Date Type Department Care Team Description 09/22/2024 Telephone [facility] Epilepsy [address] [facility] Advanced Medicine 6th Floor [address] [place] [phone] Louise Mack RN 09/09/2024 Telephone [facility] Epilepsy [address] [facility] Medicine 6th [place] [address] [place] [address] Clifton Jsoe MD PhD Med Refill from Last 3 Months Allergies Active Allergy [...] 1 tablet (50 mcg total) by mouth pipe coverer and insulator before breakfast Active montelukast (SINGULAIR) 10 mg [...] CAPSULE 0 Active cyanocobalamin/ folic acid (vitamin E72-dzsde acid) 2,500-400 mcg tablet,disinteg rating 0 Active [...] of breath 1 each 11 4 Active topiramate (TOPAMAX) 200 mg tablet Take 1 tablet (200 mg total) by mouth 2 (two) times a day 180 tablet 3 4 12/18/19 25 Active divalproex ER (DEPAKOTE ER) 500 mg 24 hr tablet TAKE 2 TABLETS(1000 MG) BY MOUTH TWICE DAILY 360 tablet 5 Active Active Problems Problem Noted Date Diagnosed [...] 52.5 S tarted: 1974 Smokeless Tobacco: Never Tobacco Cessation:Counseling Given: Not Answered Alcohol Use Standard Drinks/Week Comments No 0 (1 standard drink = 0.6 oz pur e alcohol) Sex and Gender Information Value Date Recorded Sex Assigned at Not on file 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 The CKD-EPI equation should not be used for patients with unstable renal function and has not been validated in children and those over 70. Current interpretive data was last reviewed 2021. Blood 02/15/2022 10:5 7 AM CDT 02/15/2022 11:35 AM CDT us Clifton Jose MD PhD LAB BLOOD ORDERABLES Adeline miller Result JOHANNY MARTINEZ [facility] Department [place] [address] from Last 3 Months or Most Recently Relevant to Health Maintenance Insurance IDPA [facility] MEDICARE ADVANTAGE [employer] [facility] MEDICARE ADVANTAGE [facility] MEDICARE ADVANTAGE IDPA Advance Directives For more information, please contact: [phone] * Full Code (Latest Code Status on File) Date Activated Date Inactivated Comments 08/17/2021 7:34 AM 08/19/2021 10:29 PM * Full Code Date Activated Date Inactivated Comments 07/20/2020 10:14 AM 07/26/2020 7:25 PM * Full Code Date Activated Date Inactivated Comments 06/06/2019 2:57 AM 06/08/2019 2:23 AM Care Teams Fire Prevention Forester Relationship Specialty Start Date End Date Sergey Wilson MD PCP - General 09/20/16
--- OUTSIDE RECORDS SUMMARY | 2024-11-30 12:37 | XMS_ITS | Clinical Summary ---
Author Organization [facility] Address [address] [place] [address] Care Team Providers Care Enterprise Manager Name Role Phone Sergey Wilson MD Primary Care Provider [phone] Allergies Active Allergy Reactions Criticality Noted Date [...] 1 tablet (50 mcg total) by mouth textile machinery instructor before breakfast Active montelukast (SINGULAIR) 10 mg [...] CAPSULE 0 Active cyanocobalamin/ folic acid (vitamin N41-rywdj acid) 2,500-400 mcg tablet,disinteg rating 0 Active [...] Type Department Care Team Description 09/22/2024 Telephone [place] [id number] [place] [address] Louise Mack RN 09/09/2024 Telephone [place] [address] [place] [address] Clifton Jose MD PhD Med Refill from Last 3 Months Immunizations Immunization Administration Dates Next Due Influenza, Quadrivalent, Spl it, Preservative Free, Intramuscular 06/06/2019 Influenza, Unspecified 02/12/2020 Surgical History Surgery Date Site/Laterality Comments IN CRANIOTOMY SELECTIVE AMYGDALOHIPPOCAMPECTOMY Craniotomy For Amygdalohippocampectomy - (Added by TW Conv) CARDIAC PACEMAKER PLACEMENT Pacemaker Placement - (Added by TW Conv) LOOP ELECTROSURGICAL EXCISIO N PROCEDURE 07/12/2023 [facility] heart and Vascular Medical History Medical [...] on file 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 Gender Identity Not on file Sexual Orientation [...] 02/05/2021, 08/29/2020, Additional history exists Influenza Vaccine (#1) 2025 , 02/25/2020, 02/18/2020, Additional history exists Procedures [...] LAB BLOOD ORDERABLES Adeline miller Result [facility] Department [place] [address] from Last 3 Months or Most Recently Relevant to Health Maintenance Insurance IDPA [facility] MEDICARE ADVANTAGE IDPA [facility] MEDICARE ADVANTAGE [facility] MEDICARE ADVANTAGE IDPA Advance Directives For more information, please contact: [phone] * Full Code (Latest Code Status on File) Date Activated Date Inactivated Comments 08/17/2021 7:34 AM 08/19/2021 10:29 PM * Full Code Date Activated Date Inactivated Comments 07/20/2020 10:14 AM 07/26/2020 7:25 PM * Full Code Date Activated Date Inactivated Comments 06/06/2019 2:57 AM 06/08/2019 2:23 AM Care Teams Enterprise Manager Relationship Specialty Start Date End Date Sergey Wilson MD PCP - General 09/20/16
--- OUTSIDE RECORDS SUMMARY | 2024-11-30 12:37 | XMS_ITS | Clinical Summary ---
Author Organization [facility] Address [address] [place] [address] Care Team Providers Care Starch Dumper Name Role Phone None, Provider MD Primary [...] 8:33 PM CDT Height 175.3 cm (5' 9) 09/01/2023 8:33 PM CDT Body Mass Index [...] age to complete this topic Insurance MEDICARE [facility] MEDICAID Care Teams Starch Dumper Relationship Specialty Start Date End Date None, Provider, MD PCP - General UNKNOWN PHYSICIAN SPECIALTY 09/01/23
--- NOTE | 2024-11-30 13:06 | ECG_ITS ---
Test Date: 2024-11-30 13:11:48 Measurements Intervals [place] Rate: 79 P: 50 CT: 220 QRS: -75 QRSD: 114 T: 31 QT: 399 QTc: 458 Interpretive Statements SINUS RHYTHM WITH FIRST DEGREE AV BLOCK LEFT ANTERIOR FASCICULAR BLOCK [QRS AXIS <= -45, QR IN I, RS IN II] INFERIOR MYOCARDIAL INFARCTION , PROBABLY OLD [40+ ms Q WAVE AND/OR ST/T ABNORMALITY IN II/aVF] poor R-wave progression Compared to ECG 09/08/2024 19:45:44 Myocardial infarct finding still present Electronically Signed On 12-01-2024 10:45:10 CDT by Nik Kovacs M.D.
--- NOTE | 2024-11-30 14:07 | ED.SYNCOPE ---
HPI - Syncope General Chief Complaint: Syncope Stated Complaint: NEAR SYNCOPAL EPIDODE WHILE AT [facility] Time Seen by Provider: 11/30/24 13:49 Source: patient and RN notes reviewed Mode of arrival: EMS History of Present Illness HPI narrative: Patient presents with report of a near syncopal episode [facility]. He states that he was feeling funny and he thought he might fall/started to fall but was assisted by people so did not actually lose consciousness or fall. Was reported that he initially did not want EMS called but they were called by someone at the [facility]. He reported wanting a work up since he was already here. He states he has a history of a pacemaker and defibrillator (see below). Not on anticoagulation. Reports history of CHF. He denies any chest pain, states he feels a little short of breath. His security agent is Dr Carlos in [facility] - states he doesn't have the paperwork with him. PO intake has been ok recently. Related Data Home Medications ?Medication ?Instructions ?Recorded ?Confirmed ?Last Taken ?Type Topamax 400 mg PO DAILY 04/04/19 10/15/24 11/05/19 History divalproex 500 mg tablet,delayed 1,000 mg PO Q12H 04/04/19 10/15/24 11/05/19 History release (Depakote) albuterol sulfate 90 mcg/actuation 2 inh inhalation Q4H PRN Shortness 11/05/19 10/15/24 11/05/19 History aerosol inhaler Of Breath aspirin 81 mg chewable tablet 81 mg PO DAILY 11/05/19 10/15/24 11/05/19 History atorvastatin 10 mg tablet 10 mg PO HS 11/05/19 10/15/24 11/04/19 History enalapril maleate 5 mg tablet 5 mg PO DAILY 11/05/19 10/15/24 11/05/19 History fenofibrate 160 mg tablet 160 mg PO DAILY 11/05/19 10/15/24 11/05/19 History fluticasone 250 mcg-salmeterol 50 1 inh inhalation BID 11/05/19 10/15/24 11/05/19 History mcg/dose blistr powdr for inhalation (Advair Diskus) amoxicillin 500 mg capsule 500 mg PO TID 10/15/24 10/15/24 Unknown History empagliflozin 25 mg tablet 25 mg PO DAILY 10/15/24 10/15/24 Unknown History (Jardiance) glimepiride 1 mg tablet 2 mg PO BID 10/15/24 10/15/24 Unknown History montelukast 10 mg tablet 10 mg PO QPM 10/15/24 10/15/24 Unknown History odjktsbl-zb-mzpht 300 mcg-K 60 1 tablet PO DAILY 10/15/24 10/15/24 Unknown History mcg-lycop 600 mcg-lutein 300 mcg tablet (Centrum Silver Men) omeprazole 20 mg capsule,delayed 20 mg PO DAILY 10/15/24 10/15/24 Unknown History release pioglitazone 30 mg tablet 30 mg PO DAILY 10/15/24 10/15/24 Unknown History rosuvastatin 40 mg tablet 40 mg PO QPM 10/15/24 10/15/24 Unknown History topiramate 200 mg tablet 200 mg PO Q12H 10/15/24 10/15/24 Unknown History Allergies Allergy/AdvReac Type Severity Reaction Status Date / Time phenobarbital AdvReac Unknown Other Verified 11/30/24 12:35 PENDING SALE TO [facility] Past Medical History Medical History (Updated 11/30/24 @ 16:31 by Yanique Read MD) CHF (congestive heart failure) Recurrent syncope Head trauma Hyperlipidemia Hypertension Arthritis CVA (cerebral vascular accident) Epilepsy Anxiety Depression IBS (irritable bowel syndrome) GI bleed GERD (gastroesophageal reflux disease) Sleep apnea Asthma Diabetes COPD (chronic obstructive pulmonary disease) Surgical History Surgical History History of open reduction and internal fixation (ORIF) procedure Hx of craniotomy temporal lobe resection Family History Family History Mother Hypertension Congestive heart failure Social History Social History Social History: The patient is single and never had any children. He lives alone. He is on disability. Surrogate decision maker: Sophia Pozo (mother) Smoking status: Never smoker Alcohol intake: never Substance use: never Substance use type: does not use Lack of Transportation: YES Lack of Food: Never True Current Housing: I Have Housing Concerned About Future Housing: YES Difficulty Paying Gas/Electric Bills: Decline to Answer Difficulty Paying for Meds: No Currently Unemployed: No Education: Grade School Difficulty w/ Childcare or Family Care: No Living arrangements: alone Gender identity (if verbalized by the patient): Male Sexual Orientation (if Verbalized by the Patient): Straight or Heterosexual Spiritual care concerns: No Exam Narrative: GENERAL: Well-appearing, well-nourished, and in no acute distress. HEAD: Normocephalic, atraumatic. EYES: Non injected, non icteric ENT: Nares clear, no rhinorrhea or epistaxis. Gross auditory acuity intact. NECK: Supple. No meningismus. CHEST: Speaking in full sentences. No respiratory distress. HEART: Regular rate and rhythm. ABDOMEN: Soft, nondistended. EXTREMITIES: Normal range of motion. . SKIN: Warm, dry, no rash. NEURO: No focal deficits. Alert and oriented. Answering questions. Following commands. PSYCH: Congruent mood and affect. Course Vital Signs Vital signs: Vital Signs Temperature 97.1 F L 11/30/24 13:15 Pulse Rate 79 11/30/24 13:15 Respiratory Rate 18 11/30/24 13:15 Blood Pressure 114/56 L 11/30/24 13:15 Pulse Oximetry 98 11/30/24 13:15 Oxygen Delivery Room Air 11/30/24 13:15 Temperature 97.1 F L 11/30/24 13:15 Pulse Rate 75 11/30/24 16:50 Respiratory Rate 17 11/30/24 16:01 Blood Pressure 102/63 11/30/24 16:50 Pulse Oximetry 99 11/30/24 16:01 Oxygen Delivery Room Air 11/30/24 14:21 MDM - Syncope MDM Narrative Medical decision making narrative: Patient presents after report of a near syncopal episode while at [facility]. He had stated he was feeling funny but he did not fall or lose consciousness. Was assisted to sit down by people at [facility] who also called EMS although it was reported he did not initially want them called. Per review of the EMR, patient has presented multiple times with syncope as chief complaint. In the emergency department he is afebrile with acceptable vital signs although low diastolic blood pressure. Mean arterial pressure is 75mmHg. Repeat blood pressure better. Very mild anemia based on hemoglobin although hematocrit is okay. Both Hgb and Hct are reviewed and have been anemic/borderline anemic/normal previously. He has hyperglycemia but without anion gap. Not frankly acidotic (CO2 >15). Patient stated he had a history of CHF with a pacemaker and defibrillator although these devices are not present on his imaging; there is notation of a loop recorder by radiologists interpretation. BNP normal. UA with glucosuria. Ortho stats are reviewed and appropriate. Patient is otherwise stable for discharge but advised follow-up with security agent/PCP. Differential Diagnosis Differential diagnosis: Likely syncope due to orthostatic hypotension ((near)), vasovagal syncope ((near)), complete atrioventricular block, dehydration and other (IL) Medical Records Attestation: I reviewed the patient's medical records. Lab Data 11/30/24 14:27 11/30/24 14: Labs: Lab Results 11/30/24 11/30/24 Range/Units 14:27 16:19 WBC 5.8 (4.5-10.0) K/mm3 RBC 4.34 L (4.6-6.20) M/mm3 Hgb 13.3 L (14.0-18.0) g/dL Hct 42.1 (42.0-52.0) % MCV 97.0 (80-100) fl MCH 30.6 (26-34) pg MCHC 31.6 L (32-36) g/dl RDW 13.5 (11.5-14.5) % Plt Count 148 L (150-375) k/mm3 MPV 9.6 (7.4-10.4) fl Immature Gran % (Auto) 1.0 H (0-0.5) % Neut % (Auto) 43.3 L (45.5-73.1) % Lymph % (Auto) 43.5 (18.3-44.2) % [place] % (Auto) 8.9 H (2.6-8.5) % Eos % (Auto) 2.8 (0-4.4) % Baso % (Auto) 0.5 (0.2-1.2) % Lymph # (Auto) 2.50 (0.9-3.2) K/mm3 [place] # (Auto) 0.5 (0.1-0.6) K/mm3 Eos # (Auto) 0.2 (0-0.3) K/mm3 Baso # (Auto) 0.0 (0.0-0.1) K/mm3 Abs Immat Gran (auto) 0.06 H (0.00-0.031) K/mm3 Absolute Neuts (auto) 2.5 (1.3-6.7) K/mm3 Absolute Nucleated RBC 0.000 (0.0-0.012) K/mm3 Nucleated RBC % 0.0 (0.0-0.2) % Sodium 140 (137-145) mmol/L Potassium 3.9 (3.4-5.0) mmol/L Chloride 112 H (98-107) mmol/L Carbon Dioxide 18 L (22-30) mmol/L Anion Gap 10 (4-12) mmol/L BUN 15 (9-20) mg/dL Creatinine 0.75 (0.7-1.3) mg/dL Estim Creat Clear Calc 106 ml/min Estimated GFR > 60 (59 - ) Glucose 197 H (65-110) mg/dL Calcium 9.0 (8.4-10.2) mg/dL Troponin I < 0.012 (0.000-0.034) ng/mL NT-Pro-B Natriuret Pep 31 (19.9-100) pg/mL Urine Color Yellow (Yellow) Urine Appearance Clear (Clear) Urine pH 7.0 (5.0-9.0) Ur Specific [place] 1.043 H (1.001-1.035) Urine Protein Negative (Negative) mg/dL Urine Glucose (UA) 3+ H (Negative) mg/dL Urine Ketones Trace H (Negative) mg/dL Ur Blood (Man) Negative (Negative) Urine Nitrate Negative (Negative) Urine Bilirubin Negative (Negative) Urine Urobilinogen 1.0 (<2.0) mg/dL Leukocyte Esterase Rfl Negative (Negative) CORAL/UL Urine Opiates Screen Negative (Negative) Urine Methadone Screen Negative (Negative) Ur Barbiturates Screen Negative (Negative) Ur Phencyclidine Scrn Negative (Negative) Ur Amphetamine Screen Negative (Negative) U Benzodiazepines Scrn Negative (Negative) Urine Cocaine Screen Negative (Negative) U Cannabinoids Screen Negative (Negative) Ethyl Alcohol < 10 (<10) mg/dL Imaging Data Attestation: I personally reviewed and interpreted this imaging study as follows: My impression: I do not readily appreciate the loop recorder on my independnet assessment Radiologist's impression: Impressions Chest X-Ray 11/30/24 14:45 IMPRESSION: No acute cardiopulmonary process. ECG Data EKG #1: Attestation: I personally reviewed and interpreted this ECG as follows: ECG completion date: 11/30/24 ECG completion time: 13:11 Prior ECG tracings: available for review (09/08/2024 also showed first-degree AV block, left axis deviation, poor R-wave progression) Interpretation: Normal sinus rhythm at a rate of 79 beats per minute. First-degree AV block given AK interval is 220 milliseconds. QRS 114. QT/QTC 399/433. Incomplete RBBB given QRSless [id number]; RSR' M-shaped pattern in V1-V3; but to a lesser degree wide, slurred S wave in lateral leads (I, aVL, V5-6). Left anterior fascicular block with rS complexes in leads II, III, aVF (small R waves, deep S waves), qR complexes in lead I , avL (small Q waves and tall R waves) and left axis deviation with Leads II, III and aVF negative and leads I and aVL positive. Poor R-wave progression across the precordial leads. T-wave slightly flattened in lead 3 but otherwise upright in normal in contiguous inferior leads. No other T-wave inversions Discharge Plan Discharge Clinical Impression: Near syncope, Glucosuria Patient Disposition: Home Condition: Stable Instructions: Antibiotic Form, Near Syncope (ED) Additional Instructions: Follow-up with your primary care physician and your security agent Dr Carlos through [facility]. Return to the emergency department any new or worsening symptoms Patient Language: Romanian Prescriptions: No Action famotidine 40 mg tablet 40 mg PO DAILY Qty: 30 3RF loratadine [Claritin] 10 mg tablet 10 mg PO DAILY PRN (Reason: allergy symptoms) Qty: 10 0RF promethazine 25 mg tablet 25 mg PO Q6H PRN (Reason: nausea and vomiting) Qty: 7 0RF ibuprofen 800 mg tablet 800 mg PO TID PRN (Reason: pain) Qty: 20 0RF amoxicillin-pot clavulanate [Augmentin] 875-125 mg Tablet 1 tablet PO Q12HR Qty: 8 0RF meclizine 12.5 mg tablet 12.5 mg PO TID PRN (Reason: dizziness) Qty: 14 0RF divalproex [Depakote] 500 mg Tablet,Delayed Release (Dr/Ec) 1,000 mg PO Q12H Topamax 400 mg PO DAILY fluticasone propion-salmeterol [Advair Diskus] 250-50 mcg/dose blister with device 1 inh INHALATION BID enalapril maleate 5 mg tablet 5 mg PO DAILY atorvastatin 10 mg tablet 10 mg PO HS aspirin 81 mg tablet,chewable 81 mg PO DAILY albuterol sulfate 90 mcg/actuation HFA aerosol inhaler 2 inh INHALATION Q4H PRN (Reason: Shortness Of Breath) fenofibrate 160 mg tablet 160 mg PO DAILY topiramate 200 mg tablet 200 mg PO Q12H pioglitazone 30 mg tablet 30 mg PO DAILY glimepiride 1 mg tablet 2 mg PO BID omeprazole 20 mg capsule,delayed release(DR/EC) 20 mg PO DAILY rosuvastatin 40 mg tablet 40 mg PO QPM Jardiance 25 mg tablet 25 mg PO DAILY montelukast 10 mg tablet 10 mg PO QPM Centrum Silver Men [id number] mcg tablet 1 tablet PO DAILY amoxicillin 500 mg capsule 500 mg PO TID citalopram 40 mg tablet See Rx Instructions .ROUTE .COMPLEX Qty: 30 0RF Dose Instruction: TAKE 1 TABLET(40 MG) BY MOUTH EVERY MORNING Rx Instructions: TAKE 1 TABLET(40 MG) BY MOUTH EVERY MORNING cyclobenzaprine 10 mg tablet See Rx Instructions .ROUTE .COMPLEX PRN (Reason: muscle spasm) Qty: 60 0RF Dose Instruction: TAKE 1 TABLET BY MOUTH TWICE DAILY Rx Instructions: TAKE 1 TABLET BY MOUTH TWICE DAILY PRN; nortriptyline 75 mg capsule See Rx Instructions .ROUTE .COMPLEX Qty: 180 0RF Dose Instruction: TAKE 1 CAPSULE BY MOUTH TWICE DAILY Rx Instructions: TAKE 1 CAPSULE BY MOUTH TWICE DAILY Follow-up/Referrals: Steve,MD Sergey [Primary Care Provider] - Stand Alone Forms: Work/School Release IP Time of Disposition: 17:04
[2024-11-30 14:33] LABS: Hematocrit 42.1 % (42.0-52.0); Hemoglobin 13.3 g/dL (14.0-18.0); Immature Granulocyte Percent A 1.0 % (0-0.5); Lymphocytes Absolute Auto 2.50 K/mm3 (0.9-3.2); Mean Corpuscular HGB Conc 31.6 g/dl (32-36); Mean Corpuscular Hemoglobin 30.6 pg (26-34); Mean Corpuscular Volume 97.0 fl (80-100); Nucleated Red Blood Cells Absolute Auto 0.000 K/mm3 (0.0-0.012); Nucleated Red Blood Cells Perc 0.0 % (0.0-0.2); Platelet Count Result 148 k/mm3 (150-375); Red Blood Count 4.34 M/mm3 (4.6-6.20); White Blood Count 5.8 K/mm3 (4.5-10.0)
--- NOTE | 2024-11-30 14:34 | PC.NURSE ---
this RN put the pt bedrails up and pt did not like that and crawled out the bed and into the chair. this RN educated the pt that he is a fall risk due to his passing out today and he needs to get into the bed with the bed rails to prevent the pt from falling and the pt needs to be on the monitor. pt refusing to get into the bed. pt said I can always leave this RN said that is his choice but he needs to be in the bed if he would like evaluated
--- NOTE | 2024-11-30 14:37 | PC.NURSE ---
pt is now laying in the bed with one leg on the bed and one leg hanging off the bed and pt said this is good enough. but is not cooperating and getting into the bed
--- OUTSIDE RECORDS SUMMARY | 2024-11-30 14:49 | XMS_ITS | Referral Summary ---
Author Organization [facility] Address [address] [place] [address] Care Team Providers Care Access Assoc Name Role Phone Sergey Wilson MD Primary Care Provider [phone] Encounters Date Type Department Care Team Description 09/22/2024 Telephone [facility] Epilepsy [address] [facility] Advanced Medicine 6th Floor [address] [place] [id number] Louise Mack RN 09/09/2024 Telephone [facility] Epilepsy [address] [facility] Medicine 6th [place] [address] [place] [address] Clifton Jose MD PhD Med [...] 1 tablet (50 mcg total) by mouth atg architect before breakfast Active montelukast (SINGULAIR) 10 mg [...] CAPSULE 0 Active cyanocobalamin/ folic acid (vitamin [id number] acid) 2,500-400 mcg tablet,disinteg rating 0 Active [...] on file 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 * Full Code (Latest Code Status on File) Date Activated Date Inactivated Comments 08/17/2021 7:34 AM 08/19/2021 10:29 PM * Full Code Date Activated Date Inactivated Comments 07/20/2020 10:14 AM 07/26/2020 7:25 PM * Full Code Date Activated Date Inactivated Comments 06/06/2019 2:57 AM 06/08/2019 2:23 AM Care Teams Access Assoc Relationship Specialty Start Date End Date Sergey Wilson MD PCP - General 09/20/16
--- OUTSIDE RECORDS SUMMARY | 2024-11-30 14:49 | XMS_ITS | Clinical Summary ---
Author Organization [facility] Address [address] [place] [address] Care Team Providers Care Installation Technician Name Role Phone None, Provider MD [...] age to complete this topic Insurance MEDICARE [facility] MEDICAID Care Teams Installation Technician Relationship Specialty Start Date End Date None, Provider, MD PCP - General UNKNOWN PHYSICIAN SPECIALTY 09/01/23
--- OUTSIDE RECORDS SUMMARY | 2024-11-30 14:49 | XMS_ITS | Clinical Summary ---
Author Organization [facility] Address [address] [place] [address] Care Team Providers Care Maxillofacial Prosthodontist Name Role Phone Sergey Wilson MD Primary Care Provider [phone] Source Comments [facility] Affiliates and Associated Physician Practices is amultiple site organization consisting of ambulatory clinics and hospital sitesin [place], [place], [place] and [place]. This disclosure is being madepursuant to the Care Everywhere program and may not contain all information available regarding this patient. 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 Sexual Orientation Not on file Last Filed Vital Signs Vital Sign Reading Time Taken Comments Blood Pressure 99/48 06/02/2021 7:32 PM AIRCRAFT FUELER Pulse 82 06/02/2021 7:32 PM AIRCRAFT FUELER Temperature 37.2 C (99 F) 06/02/2021 7:32 PM AIRCRAFT FUELER Respiratory Rate 16 06/02/2021 7:32 PM AIRCRAFT FUELER Oxygen Saturation 98% 06/02/2021 7:32 PM AIRCRAFT FUELER Inhaled Oxygen Concentration - - Weight 104.3 kg (230 lb) 06/02/2021 7:32 PM AIRCRAFT FUELER Height 177.8 cm (5' 10) 06/02/2021 7:32 PM AIRCRAFT FUELER Body Mass Index 33 06/02/2021 7:32 PM AIRCRAFT FUELER Plan of Treatment Health Maintenance Due Date [...] complete this topic Insurance MEDICAID - [facility] MANAGED MEDICARE ADV MANAGED MEDICARE ADV MEDICAID - [facility] Care Teams Maxillofacial Prosthodontist Relationship Specialty Start Date End Date Sergey Wilson MD PCP - General Internal Medicine 09/25/20
--- OUTSIDE RECORDS SUMMARY | 2024-11-30 14:49 | XMS_ITS | Clinical Summary ---
Author Organization [facility] Address [address] [place] [address] Phone Care Team Providers Care Senior Procurement Manager Name Role Phone Sergey Wilson MD Primary Care Provider [phone] Allergies No known active allergies Medications divalproex [...] after that. 20 Tablet 04/18/2021 9:21 PM OSTOMY RN 04/18/2021 Active doxycycline hyclate (VIBRAMYCIN) 100 mg tablet Take 1 Tablet (100 mg) by mouth 2 times daily. 14 Tablet 04/18/2021 9:21 PM OSTOMY RN 04/18/2021 Active Social History Tobacco Use Types Packs/Day Years Used Date Smoking Tobacco: Former Smokeless Tobacco: Never Sex and Gender Information Value Date Recorded Sex Assigned at Not on file Legal Sex Male 3:08 PM OSTOMY RN Gender Identity Not on file Sexual Orientation Not on file Last Filed Vital Signs Vital Sign Reading Time Taken Comments Blood Pressure 113/75 04/18/2021 8:00 PM OSTOMY RN Pulse 78 04/18/2021 8:00 PM OSTOMY RN Temperature 36.9 C (98.4 F) 04/18/2021 3:26 PM OSTOMY RN Respiratory Rate 18 04/18/2021 7:08 PM OSTOMY RN Oxygen Saturation 95% 04/18/2021 8:00 PM OSTOMY RN Inhaled Oxygen Concentration - - Weight 104.3 kg (230 lb) 04/18/2021 3:26 PM OSTOMY RN Height 177.8 cm (5' 10) 04/18/2021 3:26 PM OSTOMY RN Body Mass Index 33 04/18/2021 3:26 PM OSTOMY RN Plan of Treatment Health Maintenance Due Date [...] Part D Address: AJ TA Care Teams Senior Procurement Manager Relationship Specialty [place] [address] [place] [phone] PCP - General Internal Medicine 04/18/21
--- OUTSIDE RECORDS SUMMARY | 2024-11-30 14:49 | XMS_ITS | Continuity of Care Document ---
Author Organization [facility] Address [address] [place] [address] Phone Care Team Providers Care Barrel Planer Name Role Phone Breanna GONZALEZ, FACC, FSCMARY, [...] Diagnoses Date Provider Providers Copied on Encounter [facility], [address] [place] [address], [id number] , tel: [phone] [facility] [employer] No Information 5 Breanna Dailey. [facility] [address] [place], [place], [id number] , . tel: [phone] OFFICE/OUTPA TIENT VISIT, EST [facility], [address] [place] [address], [id number] , tel: [phone] [facility] [place] Follow Up of Cardiology exam (chief complaint)N umbness in feet (chief complaint)P assing out (chief complaint)s welling in legs (chief complaint)b listers teresa legs (chief complaint) Essential (primary) hypertensionHyperli pidemiaBenign prostatic hyperplasia w/o lower urinary tract symptomVitamin D deficiencyGeneraliz ed hyperhidrosisFamily history of ischemic cardiac diseaseTobacco use disorder, severeAbnormal EKGSyncope and collapse 5 Breanna Dailey. [facility] [address] [place], [place], [id number] , . tel: [phone] Referring Provider: Asim Carlos, [facility] [address], [place], [address] . tel:[phone] [facility], [address] [place] [address], [id number] , tel: [phone] [facility] [place] No Information Ramadan Asim. [address] , [place], [place], [id number] , . tel: [phone] [facility], [address] [place] [address], [id number] , tel: [phone] [facility] [place] Presence of other cardiac implants and grafts Ramadan Asim. [address] , [place], [place], [id number] , . tel: [phone] Referring Provider: Asim Carlos, [facility] [address] , [place], [address] . tel:[phone] Family History Family Member Type Diagnosis Age At Onset No Information Payers Payer name Insurance type Covered alliance party ID Authorcaspera hamida(s) [facility] [id number] PPO C [id number] INS TO BE ADDED CI [id number] Social History Type Description Quantity Date Captured Comments Alcohol Use Details Unknown Caffeine Use Details Unknown Tobacco Use Status No Information Smoking Status No Information Sex Male Chief Complaint And Reason For Visit No Information Reason For Referral Reason For Referral No Information Plan Of Treatment Date Type Action Status Appointment [place] BOOKED Future Order: Lab Order BMP ([id number]), Ordered on: Ordered Future Order: Radiology Order LO OP IMPLANT ([id number]), Ordered on: Ordered History Of Present Illness [...]
--- OUTSIDE RECORDS SUMMARY | 2024-11-30 14:49 | XMS_ITS | Clinical Summary ---
Author Organization [facility] Address [address] [place] [id number] Care Team Providers Care Mobile Phlebotomist Name Role Phone Sergey Wilson MD Primary Care Provider [phone] Allergies Active Allergy Reactions Criticality Noted Date [...] 1 tablet (50 mcg total) by mouth antique repairer before breakfast Active montelukast (SINGULAIR) 10 mg [...] CAPSULE 0 Active cyanocobalamin/ folic acid (vitamin D95-tfjgd acid) 2,500-400 mcg tablet,disinteg rating 0 Active [...] Type Department Care Team Description 09/22/2024 Telephone [place] [id number] [place] [address] Louise Mack RN 09/09/2024 Telephone [place] [address] [place] [address] Clifton Jose MD PhD Med Refill from Last 3 Months Immunizations Immunization Administration Dates Next Due Influenza, Quadrivalent, Spl it, Preservative Free, Intramuscular 06/06/2019 Influenza, Unspecified 02/12/2020 Surgical History Surgery Date Site/Laterality Comments [place] CRANIOTOMY SELECTIVE AMYGDALOHIPPOCAMPECTOMY Craniotomy For Amygdalohippocampectomy - (Added by TW Conv) CARDIAC PACEMAKER PLACEMENT Pacemaker Placement - (Added by TW Conv) LOOP ELECTROSURGICAL EXCISIO N PROCEDURE 07/12/2023 [facility] Medical History Medical History [...] on file 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 Gender Identity Not on file Sexual [...] LAB BLOOD ORDERABLES Adeline miller Result [facility] One [facility] Department [place] [address] from Last 3 Months or Most Recently Relevant to Health Maintenance Insurance IDPA [facility] MEDICARE ADVANTAGE IDPA [facility] MEDICARE ADVANTAGE [facility] MEDICARE ADVANTAGE IDPA Advance Directives For more information, please contact: [phone] * Full Code (Latest Code Status on File) Date Activated Date Inactivated Comments 08/17/2021 7:34 AM 08/19/2021 10:29 PM * Full Code Date Activated Date Inactivated Comments 07/20/2020 10:14 AM 07/26/2020 7:25 PM * Full Code Date Activated Date Inactivated Comments 06/06/2019 2:57 AM 06/08/2019 2:23 AM Care Teams Mobile Phlebotomist Relationship Specialty Start Date End Date Sergey Wilson MD PCP - General 09/20/16
--- OUTSIDE RECORDS SUMMARY | 2024-11-30 14:49 | XMS_ITS | Encounter Summary ---
Author Organization [facility] Address [address] [place] [address] Phone Care Team Providers Care Needle Loom Weaver Name Role Phone Sergey Wilson MD Primary Care Provider [phone] Reason for Visit * Reason Comments Med Refill Encounter Details Date Type Department Care Team (Late st Contact Info) Description 09/09/2024 Telephone [facility] Epilepsy [address] [facility] 6th [place] [address] [place] [address] Clifton Jose MD PhD [address] [place] [address] Med Refill Social History Tobacco Use Types Packs/Day Years Used Date Smoking Tobacco: Former Cigarettes 1.3 52.5 S tarted: 1973 Smokeless Tobacco: Never Alcohol Use Standard Drinks/Week Comments No 0 (1 standard drink = 0.6 oz pur e alcohol) Sex and Gender Information Value Date Recorded Sex Assigned at Not on file 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 SCHEDULE ANNOUNCER Gender Identity Not on file Sexual Orientation [...] documented as of this encounter Care Teams Needle Loom Weaver Relationship Specialty Start Date End Date Sergey Wilson MD PCP - General 09/20/16 documented as of this encounter
[2024-11-30 15:05] LABS: Anion Gap 10 mmol/L (4-12); Blood Urea Nitrogen 15 mg/dL (9-20); Calcium 9.0 mg/dL (8.4-10.2); Carbon Dioxide 18 mmol/L (22-30); Chloride 112 mmol/L (98-107); Estimated CRCL calculation 106 ml/min; Estimated Glomerular Filt Rate > 60; Glucose 197 mg/dL (65-110); Potassium 3.9 mmol/L (3.4-5.0); Sodium 140 mmol/L (137-145)
[2024-11-30 15:36] LABS: NT Pro B Type Natriuretic Pept 31 pg/mL (19.9-100); Troponin I < 0.012 ng/mL (0.000-0.034)
[2024-11-30 16:26] LABS: Add Urine Microscopic? NO; Appearance Urine Clear (Clear); Glucose Urine UA 3+ mg/dL (Negative); Leukocyte Esterase Ur Negative LEU/UL (Negative); Nitrate Urine Negative (Negative); Specific Grav Ur 1.043 (1.001-1.035)
[2024-11-30 16:41] LABS: Cannabinoid Screen Urine Negative (Negative)
== END 2024-11-30 17:14 | disposition home or self-care (01) ==
PROVIDERS: Emergency Provider Student in an Organized Health Care Education/Training Program; PCP Internal Medicine
DX: R55 Syncope and collapse (principal); E11.65 Type 2 diabetes mellitus with hyperglycemia; R81 Glycosuria; I50.9 Heart failure, unspecified; I11.0 Hypertensive heart disease with heart failure; J44.9 Chronic obstructive pulmonary disease, unspecified; E78.5 Hyperlipidemia, unspecified; G40.909 Epilepsy, unspecified, not intractable, without status epilepticus; K58.9 Irritable bowel syndrome, unspecified; K21.9 Gastro-esophageal reflux disease without esophagitis; M19.90 Unspecified osteoarthritis, unspecified site; F41.9 Anxiety disorder, unspecified; F32.A Depression, unspecified; Z95.810 Presence of automatic (implantable) cardiac defibrillator; Z86.73 Personal history of transient ischemic attack (TIA), and cerebral infarction without residual deficits; Z79.82 Long term (current) use of aspirin; Z79.899 Other long term (current) drug therapy; Z79.84 Long term (current) use of oral hypoglycemic drugs; I44.0 Atrioventricular block, first degree; I44.4 Left anterior fascicular block; R94.31 Abnormal electrocardiogram [ECG] [EKG]
CPT/HCPCS: 36415; 71045; 80048; 80307; 81003; 82077; 83880; 84484; 85025; 93005; 99284

== ENCOUNTER 2024-12-29 08:03 | Outpatient (CLI) | payer MEDICARE, MEDICAID, SELFPAY ==
--- OUTSIDE RECORDS SUMMARY | 2024-12-29 08:17 | XMS_ITS | Encounter Summary ---
Author Organization [facility] Address [address] [place] [address] Phone Care Team Providers Care Water Resource Engineer Name Role Phone Sergey Wilson MD Primary Care Provider [phone] Reason for Visit * Reason Comments Med Refill Encounter Details Date Type Department Care Team (Late st Contact Info) Description 09/09/2024 Telephone [facility] Epilepsy [address] [facility] 6th [place] [address] [place] [address] Clifton Jose MD PhD [address] [place] [address] Med Refill Social History Tobacco Use Types Packs/Day Years Used Date Smoking Tobacco: Former Cigarettes 1.3 52.6 S tarted: 1973 Smokeless Tobacco: Never Alcohol Use Standard Drinks/Week Comments No 0 (1 standard drink = 0.6 oz pur e alcohol) Sex and Gender Information Value Date Recorded Sex Assigned at Not on file 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
--- OUTSIDE RECORDS SUMMARY | 2024-12-29 08:17 | XMS_ITS | Clinical Summary ---
Author Organization [facility] Address [address] [place] [address] Care Team Providers Care Hunter Skin Diver Name Role Phone Sergey Wilson MD Primary Care Provider [phone] Allergies Active Allergy Reactions Criticality Noted Date [...] 1 tablet (50 mcg total) by mouth superintendent nonselling before breakfast Active montelukast (SINGULAIR) 10 mg [...] CAPSULE 0 Active cyanocobalamin/ folic acid (vitamin F76-yzozh acid) 2,500-400 mcg tablet,disinteg rating 0 Active [...] times a day 180 tablet 3 4 Active divalproex ER (DEPAKOTE ER) 500 [...] 02/12/2020 Surgical History Surgery Date Site/Laterality Comments [place] CRANIOTOMY SELECTIVE AMYGDALOHIPPOCAMPECTOMY Craniotomy For Amygdalohippocampectomy - (Added by Tizaro Conv) CARDIAC PACEMAKER PLACEMENT Pacemaker Placement - (Added by Attainia) LOOP ELECTROSURGICAL EXCISIO N PROCEDURE 07/12/2023 [facility] Medical History Medical History Date Comments Reflux esophagitis Chronic Reflu x Esophagitis - (Added by TW Conv) Personal history of other di seases of the circulatory system History of hypertension - (A dded by Attainia) Personal history of other me ntal and behavioral disorders History of depression - (Add ed by Tizaro Conv) Anxiety disorder Anxiety - (Adde d by TW Conv) Personal history of other di seases of the respiratory system Personal history of asthma - (Added by Tizaro Conv) Asthma Hypertension Seizures (HCC) Diabetes (HCC) 06/05/2019 Family History Medical History Relation Name Comments Brain cancer Brother Brain tumor - ( Added by Tizaro Conv) Diabetes Brother Cancer Father Diabetes Sister Relation Name Status Comments Brother Father Sister Social History Tobacco Use Types Packs/Day Years Used Date Smoking Tobacco: Former Cigarettes 1.3 52.6 S tarted: 1972 Smokeless Tobacco: Never Tobacco Cessation:Counseling Given: Not Answered Alcohol Use Standard Drinks/Week Comments No 0 (1 standard drink = 0.6 oz pur e alcohol) Sex and Gender Information Value Date Recorded Sex Assigned at Not on file 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 73 m2 [facility] Comment: Interpretive Data Reference Interval Normal >/= [...] LAB BLOOD ORDERABLES Adeline miller Result [facility] One [facility] Department [place] [address] from Last 3 Months or Most Recently Relevant to Health Maintenance Insurance [facility] MEDICARE ADVANTAGE IDPA [facility] MEDICARE ADVANTAGE [facility] MEDICARE ADVANTAGE IDPA Advance Directives For more information, please contact: [phone] * Full Code (Latest Code Status on File) Date Activated Date Inactivated Comments 08/17/2021 7:34 AM 08/19/2021 10:29 PM * Full Code Date Activated Date Inactivated Comments 07/20/2020 10:14 AM 07/26/2020 7:25 PM * Full Code Date Activated Date Inactivated Comments 06/06/2019 2:57 AM 06/08/2019 2:23 AM Care Teams Hunter Skin Diver Relationship Specialty Start Date End Date Sergey Wilson MD PCP - General 09/20/16
--- OUTSIDE RECORDS SUMMARY | 2024-12-29 08:17 | XMS_ITS | Clinical Summary ---
Author Organization [facility] Address [address] [place] [address] Phone Care Team Providers Care Processing Archivist Name Role Phone Sergey Wilson MD Primary Care Provider [phone] Allergies No known active allergies Medications divalproex [...] after that. 20 Tablet 04/18/2021 9:21 PM VETERINARY MEAT INSPECTOR 04/18/2021 Active doxycycline hyclate (VIBRAMYCIN) 100 mg tablet Take 1 Tablet (100 mg) by mouth 2 times daily. 14 Tablet 04/18/2021 9:21 PM VETERINARY MEAT INSPECTOR 04/18/2021 Active Social History Tobacco Use Types Packs/Day Years Used Date Smoking Tobacco: Former Smokeless Tobacco: Never Sex and Gender Information Value Date Recorded Sex Assigned at Not on file Legal Sex Male 3:08 PM VETERINARY MEAT INSPECTOR Gender Identity Not on file Sexual Orientation Not on file Last Filed Vital Signs Vital Sign Reading Time Taken Comments Blood Pressure 113/75 04/18/2021 8:00 PM VETERINARY MEAT INSPECTOR Pulse 78 04/18/2021 8:00 PM VETERINARY MEAT INSPECTOR Temperature 36.9 C (98.4 F) 04/18/2021 3:26 PM VETERINARY MEAT INSPECTOR Respiratory Rate 18 04/18/2021 7:08 PM VETERINARY MEAT INSPECTOR Oxygen Saturation 95% 04/18/2021 8:00 PM VETERINARY MEAT INSPECTOR Inhaled Oxygen Concentration - - Weight 104.3 kg (230 lb) 04/18/2021 3:26 PM VETERINARY MEAT INSPECTOR Height 177.8 cm (5' 10) 04/18/2021 3:26 PM VETERINARY MEAT INSPECTOR Body Mass Index 33 04/18/2021 3:26 PM VETERINARY MEAT INSPECTOR Plan of Treatment Health Maintenance Due Date [...] patient's age to complete [place] [address] MED[place] RX [employer] RX Member Subscriber Plan / Payer (Ef fective for All Dates) Name:Dennis Branch Relation to Subscriber:Self Name:Dennis Branch Subscriber ID:Not on file Payer ID:Not on file Group ID:[id number] Type:RX Medicare Part D Address: [address] [place] Care Teams Processing Archivist Relationship Specialty [place] [address] [place] [phone] PCP - General Internal Medicine 04/18/21
--- OUTSIDE RECORDS SUMMARY | 2024-12-29 08:17 | XMS_ITS | Clinical Summary ---
Author Organization [facility] Address [address] [place] [address] Care Team Providers Care Consumer Services Advisor Name Role Phone Sergey Wilson MD Primary Care Provider [phone] Source Comments [facility],non[facility] Affiliates and Associated Physician Practices is amultiple site organization consisting of ambulatory clinics and hospital sitesin [place], [place], [place] and [place]. This disclosure is being madepursuant to the Care Everywhere program and may not contain all information available regarding this patient. Last updated 18.[facility] 2Duche Allergies Active Allergy Reactions Criticality Noted Date [...] CDT Gender Identity Male 05/25/2021 9:36 PM STRATEGIC PROCUREMENT MANAGER Sexual Orientation Not on file Last Filed Vital Signs Vital Sign Reading Time Taken Comments Blood Pressure 99/48 06/02/2021 7:32 PM STRATEGIC PROCUREMENT MANAGER Pulse 82 06/02/2021 7:32 PM STRATEGIC PROCUREMENT MANAGER Temperature 37.2 C (99 F) 06/02/2021 7:32 PM STRATEGIC PROCUREMENT MANAGER Respiratory Rate 16 06/02/2021 7:32 PM STRATEGIC PROCUREMENT MANAGER Oxygen Saturation 98% 06/02/2021 7:32 PM STRATEGIC PROCUREMENT MANAGER Inhaled Oxygen Concentration - - Weight 104.3 kg (230 lb) 06/02/2021 7:32 PM STRATEGIC PROCUREMENT MANAGER Height 177.8 cm (5' 10) 06/02/2021 7:32 PM STRATEGIC PROCUREMENT MANAGER Body Mass Index 33 06/02/2021 7:32 PM STRATEGIC PROCUREMENT MANAGER Plan of Treatment Health Maintenance Due Date [...] complete this topic Insurance MEDICAID - [place] [facility] MANAGED MEDICARE ADV MANAGED MEDICARE ADV MEDICAID - [facility] Care Teams Consumer Services Advisor Relationship Specialty Start Date End Date Sergey Wilson MD PCP - General Internal Medicine 09/25/20
[2024-12-29 09:06] LABS: Anion Gap 10 mmol/L (4-12); Blood Urea Nitrogen 18 mg/dL (9-20); Calcium 9.7 mg/dL (8.4-10.2); Carbon Dioxide 25 mmol/L (22-30); Chloride 106 mmol/L (98-107); Estimated Glomerular Filt Rate > 60; Glucose 203 mg/dL (65-110); Potassium 4.3 mmol/L (3.4-5.0); Sodium 141 mmol/L (137-145)
== END 2024-12-29 08:04 | disposition home or self-care (01) ==
PROVIDERS: PCP Internal Medicine; Visit Provider Internal Medicine Cardiovascular Disease
DX: E78.5 Hyperlipidemia, unspecified (principal); I10 Essential (primary) hypertension; R55 Syncope and collapse
CPT/HCPCS: 36415; 80048

== ENCOUNTER 2024-12-29 08:10 | Outpatient (CLI) | payer MEDICARE, MEDICAID, SELFPAY ==
--- NOTE | ~2024-12-29 | XR_ITS ---
CHEST RADIOGRAPH, PA AND LATERAL CLINICAL HISTORY: COUGH;BACK PAIN;PAIN OF R HAND . COMPARISON: 11/30/2024 TECHNIQUE: PA and lateral views of the chest. FINDINGS A loop recorder is identified to the left of midline. The remainder of the cardiomediastinal silhouette is otherwise unremarkable. Bibasilar atelectasis, with blunting of the right costophrenic sulcus suggesting a small right-sided pleural effusion. The remainder of the lungs are otherwise clear. IMPRESSION: Bibasilar atelectasis with a small right-sided pleural effusion. Reviewed, dictated and finalized at location A.
--- NOTE | ~2024-12-29 | XR_ITS ---
Right Hand Technique: PA, oblique, and lateral views were obtained. Clinical History: Pain Findings: No acute fracture or dislocation is seen. Osseous alignment is anatomic. Joint spaces are p reserved. Soft tissues are unremarkable. Impression: Unremarkable right hand. Reviewed, dictated and finalized at location M. Impression: Unremarkable right hand.
--- NOTE | ~2024-12-29 | XR_ITS ---
EXAMINATION: XR lumbar spine 2-3V DATE: 12/29/2024 09:24 INDICATION: Cough. Back pain. TECHNIQUE: 3 images of the lumbar spine were obtained COMPARISON: None. FINDINGS: Mild dextroconvex curvature of the lumbar spine. Bone mineralization is within normal limit s. No compression fracture in the lumbar spine. Vascular calcifications are noted. Moderate joint spa ce narrowing at the L5-S1 level. Moderate degenerative change in the lower lumbar facet joints. IMPRESSION: 1. No compression fracture in the lumbar spine. Moderate degenerative change at the L5-S1 level. If symptoms persist or worsen, consider an MRI of the lumbar spine for further assessment Reviewed, dictated and finalized at location A.
--- NOTE | ~2024-12-29 | XR_ITS ---
EXAMINATION: XR thoracic spine 3V DATE: 12/29/2024 09:24 INDICATION: Cough. Back pain. TECHNIQUE: 3 images of the thoracic spine were obtained. COMPARISON: None. FINDINGS: Thoracic vertebral body heights are within normal limits. No compression fracture in the thoracic spi ne. Moderate degenerative change scattered throughout the thoracic spine most prominent in the mid an d lower thoracic spine. Bones appear osteopenic. IMPRESSION: 1. No compression fracture in the thoracic spine. 2. Moderate degenerative change scattered throughout the thoracic spine. If symptoms persist or worsen, consider an MRI of the thoracic spine for further assessment. Reviewed, dictated and finalized at location A. IMPRESSION: 1. No compression fracture in the thoracic spine. 2. Moderate degenerative change scattered throughout the thoracic spine. If symptoms persist or worsen, consider an MRI of the thoracic spine for furthe r assessment.
== END 2024-12-29 08:11 | disposition home or self-care (01) ==
LOC: ANHLAB 08:12 → ANHIMG 08:16
PROVIDERS: PCP Internal Medicine; Visit Provider Internal Medicine
DX: M51.34 Other intervertebral disc degeneration, thoracic region (principal); M51.370 Other intervertebral disc degeneration, lumbosacral region with discogenic back pain only; M79.641 Pain in right hand; J98.11 Atelectasis; J91.8 Pleural effusion in other conditions classified elsewhere
CPT/HCPCS: 71046; 72072; 72100; 73130

== ENCOUNTER 2025-01-20 00:11 | Day surgery (SDC) | payer MEDICARE, MEDICAID, SELFPAY ==
[2024-10-15 14:29] VITALS: BMI 32.5
--- NOTE | 2024-10-22 09:28 | PC.NURSE ---
10/22/24 Spoke with patient regarding his infection in loop recorder and he states no further drainage but that he did have a problem in cheondoism on Sunday. He states he heard a loud sound in his ear and felt like he was going to pass out. He states the people around him called 911 and that he did loose consciousness for approx. 10 minutes. He feels these symptoms are all from the loop recorder and is scheduled to have it removed soon, with reinsertion in 3-4 weeks. We discussed postponing his EGD/COLON until after his problems with his loop recorder are resolved. He is in agreement to wait as his is not feeling very good due to the loop recorder. Rescheduled his procedure to 01/08/25.
--- OUTSIDE RECORDS SUMMARY | 2024-12-30 05:53 | XMS_ITS | Continuity of Care Document ---
Author Organization [facility] Address [address] [place] [address] Phone Care Team Providers Care Shell Freezing Machine Operator Name Role Phone Breanna GONZALEZ, FACC, FSCMARY, [...] 5 DAYS - Active Procedures Procedure Date ILR DEVICE INTERROGAT REMOTE Complex e/m visit add on OFFICE/OUTPATIENT VISIT, EST ELECTROCARDIOGRAM, COMPLETE ILR DEVICE INTERROGAT REMOTE Advance Directives Directive Yes / No Effective Date File Name No Information Encounters Encounter Description Practice Location Reason(s) For Visit Diagnoses Date Provider Providers Copied on Encounter [facility], [address] [place] [address], [id number] , tel: [phone] [facility] No Information Breanna Dailey. [address] [place], [place] [address], [place], [id number] , . tel: [phone] [facility] , [address] [place] [address], [id number] , tel: [phone] [facility] other cardiac implants and grafts Breanna Dailey. [facility] [place], [place], [id number] , . tel: [phone] Referring Provider: Asim Carlos, [facility] [place] , [place], [address] . tel:[phone] OFFICE/OUTPA TIENT VISIT, EST [facility], [address] [place] [address], [id number] , tel: [phone] [facility] Follow Up of Cardiology exam (chief complaint)N umbness in feet (chief complaint)P assing out (chief complaint)s welling in legs (chief complaint)b listers teresa legs (chief complaint) Essential (primary) hypertensionHyperlip idemiaBenign prostatic hyperplasia w/o lower urinary tract symptomVitamin D deficiencyGeneralize d hyperhidrosisFamily history of ischemic cardiac diseaseTobacco use disorder, severeAbnormal EKGSyncope and collapse 5 Breanna Dailey. [address] [place], [place] [address], [id number] , . tel: [phone] Referring Provider: Asim Carlos, [facility] [place], [address] . tel:[phone] [facility] , [address] [place] [address], [address] [place] [address] , tel: [phone] [facility] No Information Breanna Dailey. [address] [place] [address], [id number] , . tel: [phone] [facility] , [address] [place] [address], [address] [place] [address] , tel: [phone] [facility] Presence of other cardiac implants and grafts 5 Breanna Dailey. [address] [place] [address], [address] [place] [address] , . tel: [phone] Referring Provider: Asim Carlos, [address] [place], [place] [address], [address] . tel:[phone] Family History Family Member Type Diagnosis Age At Onset No Information Payers Payer name Insurance type Covered constitution party ID Authoriza tion(s) [facility] [address] [id number] PPO C [id number] Social History Type Description Quantity Date Captured Comments Alcohol Use Details Unknown Caffeine Use Details Unknown Tobacco Use Status No Information Smoking Status No Information Sex Male Chief Complaint And Reason For Visit No Information Reason For Referral Reason For Referral No Information Plan Of Treatment Date Type Action Status Future Order: Lab Order BMP ([id number]), Ordered on: Ordered Future Order: Radiology Order LO OP IMPLANT ([id number]), Ordered on: Ordered History Of Present Illness [...]
[2025-01-02 14:17] VITALS: BMI 32.5
--- NOTE | 2025-01-16 13:59 | PC.NURSE ---
01/16/25 Called Dennis to confirm he does have a residential recycle driver for Sunday and he said he did at first and then stated is it for this Sunday? I said yes and he acted surprised it was already scheduled. I have spoken to Dennis at the least 5 times regarding his procedure, date and time. I was to call him today to confirm he had a residential recycle driver for Sunday. He said he would not be able to set it up for Sunday as [facility] needs 3-4 days but he could try for 01/20/25. Dennis called [employer] and called me back stating they are scheduling him for a cone picker on to arrive here at 1015.
--- OUTSIDE RECORDS SUMMARY | 2025-01-20 00:13 | XMS_ITS | Clinical Summary ---
Author Organization [facility] Address [address] [place] [address] Phone Care Team Providers Care Snow Removing Supervisor Name Role Phone Sergey Wilson MD Primary Care Provider [phone] Allergies No known active allergies Medications divalproex [...] after that. 20 Tablet 04/18/2021 9:21 PM DRUM BUILDER 04/18/2021 Active doxycycline hyclate (VIBRAMYCIN) 100 mg tablet Take 1 Tablet (100 mg) by mouth 2 times daily. 14 Tablet 04/18/2021 9:21 PM DRUM BUILDER 04/18/2021 Active Social History Tobacco Use Types Packs/Day Years Used Date Smoking Tobacco: Former Smokeless Tobacco: Never Sex and Gender Information Value Date Recorded Sex Assigned at Not on file Legal Sex Male 3:08 PM DRUM BUILDER Gender Identity Not on file Sexual Orientation Not on file Last Filed Vital Signs Vital Sign Reading Time Taken Comments Blood Pressure 113/75 04/18/2021 8:00 PM DRUM BUILDER Pulse 78 04/18/2021 8:00 PM DRUM BUILDER Temperature 36.9 C (98.4 F) 04/18/2021 3:26 PM DRUM BUILDER Respiratory Rate 18 04/18/2021 7:08 PM DRUM BUILDER Oxygen Saturation 95% 04/18/2021 8:00 PM DRUM BUILDER Inhaled Oxygen Concentration - - Weight 104.3 kg (230 lb) 04/18/2021 3:26 PM DRUM BUILDER Height 177.8 cm (5' 10) 04/18/2021 3:26 PM DRUM BUILDER Body Mass Index 33 04/18/2021 3:26 PM DRUM BUILDER Plan of Treatment Health Maintenance Due Date [...] Part D Address: AJ TA Care Teams Snow Removing Supervisor Relationship Specialty [place] [address] [place] [phone] PCP - General Internal Medicine 04/18/21
--- OUTSIDE RECORDS SUMMARY | 2025-01-20 00:13 | XMS_ITS | Encounter Summary ---
Author Organization [facility] Address [address] [place] [address] Phone Care Team Providers Care Labelling Machine Operator Name Role Phone Sergey Wilson MD Primary Care Provider Reason for Visit * Reason Comments Med Refill Encounter Details Date Type Department Care Team (Late st Contact Info) Description 09/09/2024 Telephone [facility] Epilepsy [address] [facility] 6th [place] [address] [place] [address] Clifton Jose MD PhD [address] [place] [address] Med Refill Social History Tobacco Use Types Packs/Day Years Used Date Smoking Tobacco: Former Cigarettes 1.3 52.7 S tarted: 1973 Smokeless Tobacco: Never Alcohol Use Standard Drinks/Week Comments No 0 (1 standard drink = 0.6 oz pur e alcohol) Sex and Gender Information Value Date Recorded Sex Assigned at Not on file 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 APPLIED BEHAVIOR SCIENCE SPECIALIST Gender Identity Not on file Sexual [...] documented as of this encounter Care Teams Labelling Machine Operator Relationship Specialty Start Date End Date Sergey Wilson MD PCP - General 09/20/16 documented as of this encounter
--- OUTSIDE RECORDS SUMMARY | 2025-01-20 00:14 | XMS_ITS | Continuity of Care Document ---
Author Organization [facility] Address [address] [place] [address] Insurance Providers Payer Plan Claims Address Claims Phone Policy Number Group Number Relation Employer Guarantor Name Guarantor Guarantor Address Guarantor Phone RX [employer] AJ TA tel:[phone] [id number] Deepak Branch 1965 [address] [place] [address] [address] [employer] [employer] [address] [address], [place] [address] tel:[phone] [id number] Deepak Branch 1965 [address] [place] [address] MEDIC AID [address] [address], [place] [address] [id number] Deepak Branch 1965 [address] [place], [place] [id number] Problems Unknown Problems Results No Results Allergies, adverse reactions, alerts No known allergies and adverse reactions Medications No administered medications reported Vital Signs Date Vital Result Comment 10/23/2022 Inhaled Oxygen Concentration (3150-0) 21. 0 % N Temperature (8310-5) 97.5 [degF] N Oxygen Saturation (86430-6) 97 % N Respiratory Rate (9279-1) 31 /min N Heart Rate (8867-4) 84 /min N Blood Pressure Systolic (8480-6) 106 mm[Hg] N Blood Pressure Diastolic (8462-4) 68 mm[Hg] N Body Height (8302-2) 70 [in_i] N Body Weight (89411-3) 232 [lb_av] N Body Mass Index (42315-0) 33.3 kg/m2 N 11/05/2023 Inhaled Oxygen Concentration (3150-0) 21. 0 % N Faces Pain Scale (29063-1) 0.0 N Temperature (8310-5) 98 [degF] N Oxygen Saturation (78243-0) 98 % N Respiratory Rate (9279-1) 16 /min N Heart Rate (8867-4) 82 /min N Blood Pressure Systolic (8480-6) 116 mm[Hg] N Blood Pressure Diastolic (8462-4) 60 mm[Hg] N Body Height (8302-2) 70 [in_i] N Body Weight (87388-5) 224 [lb_av] N Body Mass Index (93347-6) 32.1 kg/m2 N 08/29/2022 Inhaled Oxygen Concentration (3150-0) 21. 0 % N Temperature (8310-5) 97.2 [degF] N Oxygen Saturation (02144-9) 98 % N Respiratory Rate (9279-1) 18 /min N Heart Rate (8867-4) 78 /min N Blood Pressure Systolic (8480-6) 110 mm[Hg] N Blood Pressure Diastolic (8462-4) 70 mm[Hg] N Body Height (8302-2) 70 [in_i] N Body Weight (02598-5) 236 [lb_av] N Body Mass Index (38447-1) 33.9 kg/m2 N 05/18/2023 Inhaled Oxygen Concentration (3150-0) 21. 0 % N Temperature (8310-5) 97.1 [degF] N Oxygen Saturation (94250-3) 98 % N Heart Rate (8867-4) 79 /min N Blood Pressure Systolic (8480-6) 130 mm[Hg] N Blood Pressure Diastolic (8462-4) 68 mm[Hg] N Body Height (8302-2) 70 [in_i] N Body Weight (82009-1) 237 [lb_av] N Body Mass Index (75563-7) 34 kg/m2 N 03/14/2024 Inhaled Oxygen Concentration (3150-0) 21. 0 % N Faces Pain Scale (37478-0) 0.0 N Temperature (8310-5) 98.2 [degF] N Oxygen Saturation (16504-3) 97 % N Respiratory Rate (9279-1) 16 /min N Heart Rate (8867-4) 86 /min N Blood Pressure Systolic (8480-6) 138 mm[Hg] N Blood Pressure Diastolic (8462-4) 76 mm[Hg] N Body Height (8302-2) 70 [in_i] N Body Weight (28779-6) 223 [lb_av] N Body Mass Index (92359-5) 32 kg/m2 N 07/15/2024 Inhaled Oxygen Concentration (3150-0) 21. 0 % N Temperature (8310-5) 97.2 [degF] N Oxygen Saturation (30454-5) 98 % N Respiratory Rate (9279-1) 18 [...]
--- OUTSIDE RECORDS SUMMARY | 2025-01-20 00:14 | XMS_ITS | Clinical Summary ---
Author Organization [facility] Address [address] [place] [address] Care Team Providers Care Mft Name Role Phone Sergey Wilson MD Primary Care Provider [phone] Source Comments [facility] Affiliates and Associated Physician Practices is amultiple site organization consisting of ambulatory clinics and hospital sitesin [place], [place], [place] and [place]. This disclosure is being madepursuant to the Care Everywhere program and may not contain all information available regarding this patient. Last updated 18.[facility] Ludi Allergies Active Allergy Reactions Criticality Noted Date [...] CDT Gender Identity Male 05/25/2021 9:36 PM AUTOMOTIVE UPHOLSTERER Sexual Orientation Not on file Last Filed Vital Signs Vital Sign Reading Time Taken Comments Blood Pressure 99/48 06/02/2021 7:32 PM AUTOMOTIVE UPHOLSTERER Pulse 82 06/02/2021 7:32 PM AUTOMOTIVE UPHOLSTERER Temperature 37.2 C (99 F) 06/02/2021 7:32 PM AUTOMOTIVE UPHOLSTERER Respiratory Rate 16 06/02/2021 7:32 PM AUTOMOTIVE UPHOLSTERER Oxygen Saturation 98% 06/02/2021 7:32 PM AUTOMOTIVE UPHOLSTERER Inhaled Oxygen Concentration - - Weight 104.3 kg (230 lb) 06/02/2021 7:32 PM AUTOMOTIVE UPHOLSTERER Height 177.8 cm (5' 10) 06/02/2021 7:32 PM AUTOMOTIVE UPHOLSTERER Body Mass Index 33 06/02/2021 7:32 PM AUTOMOTIVE UPHOLSTERER Plan of Treatment Health Maintenance Due Date [...] complete this topic Insurance MED[place]ID - [place] [facility] MANAGED MEDICARE ADV MANAGED MEDICARE ADV MEDICAID - [facility] Care Teams Mft Relationship Specialty Start Date End Date Sergey Wilson MD PCP - General Internal Medicine 09/25/20
--- OUTSIDE RECORDS SUMMARY | 2025-01-20 00:14 | XMS_ITS | Clinical Summary ---
Author Organization [facility] Address [address] [place] [id number] Care Team Providers Care Senior Product Marketing Manager Name Role Phone Sergey Wilson MD Primary Care Provider [phone] Allergies Active Allergy Reactions Criticality Noted Date [...] 1 tablet (50 mcg total) by mouth personal lines underwriter before breakfast Active montelukast (SINGULAIR) 10 mg [...] CAPSULE 0 Active cyanocobalamin/ folic acid (vitamin S60-smnaw acid) 2,500-400 mcg tablet,disinteg rating 0 Active [...] 02/12/2020 Surgical History Surgery Date Site/Laterality Comments [place] CRANIOTOMY SELECTIVE AMYGDALOHIPPOCAMPECTOMY Craniotomy For Amygdalohippocampectomy - (Added by Siklu Conv) CARDIAC PACEMAKER PLACEMENT Pacemaker Placement - (Added by Dogster) LOOP ELECTROSURGICAL EXCISIO N PROCEDURE 07/12/2023 [facility] heart and Vascular Medical History Medical History Date Comments Reflux esophagitis Chronic Reflu x Esophagitis - (Added by TW Conv) Personal history of other di seases of the circulatory system History of hypertension - (A dded by Dogster) Personal history of other me ntal and behavioral disorders History of depression - (Add ed by Siklu Conv) Anxiety disorder Anxiety - (Adde d by TW Conv) Personal history of other di seases of the respiratory system Personal history of asthma - (Added by Siklu Conv) Asthma Hypertension Seizures (HCC) Diabetes (HCC) 06/05/2019 Family History Medical History Relation Name Comments Brain cancer Brother Brain tumor - ( Added by Siklu Conv) Diabetes Brother Cancer Father Diabetes Sister Relation Name Status Comments Brother Father Sister Social History Tobacco Use Types Packs/Day Years Used Date Smoking Tobacco: Former Cigarettes 1.3 52.7 S tarted: 1972 Smokeless Tobacco: Never Tobacco Cessation:Counseling Given: Not Answered Alcohol Use Standard Drinks/Week Comments No 0 (1 standard drink = 0.6 oz pur e alcohol) Sex and Gender Information Value Date Recorded Sex Assigned at Not on file 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 73 m2 [facility] Comment: Interpretive Data Reference Interval Normal >/= [...] PhD LAB BLOOD ORDERABLES Adeline miller Result [facility] Department [place] [address] from Last 3 Months or Most Recently Relevant to Health Maintenance Insurance [facility] MEDICARE ADVANTAGE IDPA [facility] MEDICARE ADVANTAGE [facility] MEDICARE ADVANTAGE IDPA Advance Directives For more information, please contact: [phone] * Full Code (Latest Code Status on File) Date Activated Date Inactivated Comments 08/17/2021 7:34 AM 08/19/2021 10:29 PM * Full Code Date Activated Date Inactivated Comments 07/20/2020 10:14 AM 07/26/2020 7:25 PM * Full Code Date Activated Date Inactivated Comments 06/06/2019 2:57 AM 06/08/2019 2:23 AM Care Teams Senior Product Marketing Manager Relationship Specialty Start Date End Date Sergey Wilson MD PCP - General 09/20/16
--- OUTSIDE RECORDS SUMMARY | 2025-01-20 00:14 | XMS_ITS | Clinical Summary ---
Author Organization [facility] Address [address] [place] [id number] Care Team Providers Care Senior Accountant Name Role Phone None, Provider MD Primary [...] - Tdap) 02/23/1983 COVID-19 Vaccine (4 - 2025-2 6 season) 2025 05/13/2021, 08/14/2020, 07/17/2020 RSV Immunization or 60+ [...] complete this topic Insurance MEDICARE [facility] MEDICAID Care Teams Senior Accountant Relationship Specialty Start Date End Date None, Provider, MD PCP - General UNKNOWN PHYSICIAN SPECIALTY 09/01/23
--- NOTE | 2025-01-20 10:22 | WPDANESEPPF ---
Anes - Initial Pre Proc Eval Procedure: Operation Date: 01/20/25 11:45 Proposed Procedures p Esophagogastroduodenoscopy - Jesus Garcia MD Date/Time: 01/20/25 10:22 Surgeon: Jesus Garcia MD Pre Op Diagnosis: Dysphagia, unspecified, Melena Patient Data Age: 59 Gender: M Height: 1.75 m Weight: 100 kg Allergies Allergy/AdvReac Type Severity Reaction Status Date / Time phenobarbital AdvReac Unknown Other Verified 11/30/24 12:35 Home Medications ?Medication ?Instructions ?Recorded ?Confirmed ?Type Topamax 400 mg PO DAILY 04/04/19 10/15/24 History divalproex 500 mg tablet,delayed 1,000 mg PO Q12H 04/04/19 10/15/24 History release (Depakote) albuterol sulfate 90 mcg/actuation 2 inh inhalation Q4H PRN Shortness 11/05/19 10/15/24 History aerosol inhaler Of Breath aspirin 81 mg chewable tablet 81 mg PO DAILY 11/05/19 10/15/24 History atorvastatin 10 mg tablet 10 mg PO HS 11/05/19 10/15/24 History enalapril maleate 5 mg tablet 5 mg PO DAILY 11/05/19 10/15/24 History fenofibrate 160 mg tablet 160 mg PO DAILY 11/05/19 10/15/24 History fluticasone 250 mcg-salmeterol 50 1 inh inhalation BID 11/05/19 10/15/24 History mcg/dose blistr powdr for inhalation (Advair Diskus) loratadine 10 mg tablet (Claritin) 10 mg PO DAILY PRN allergy 04/05/20 10/15/24 Rx symptoms #10 tabs promethazine 25 mg tablet 25 mg PO Q6H PRN nausea and 04/05/20 10/15/24 Rx vomiting #7 tabs ibuprofen 800 mg tablet 800 mg PO TID PRN pain #20 tabs 10/04/20 10/15/24 Rx meclizine 12.5 mg tablet 12.5 mg PO TID PRN dizziness #14 01/11/22 10/15/24 Rx tabs citalopram 40 mg tablet See Rx Instructions .Route 11/07/22 10/15/24 Rx .COMPLEX #30 tabs cyclobenzaprine 10 mg tablet See Rx Instructions .Route 03/05/23 10/15/24 Rx .COMPLEX PRN muscle spasm #60 tabs nortriptyline 75 mg capsule See Rx Instructions .Route 05/04/23 10/15/24 Rx .COMPLEX #180 caps famotidine 40 mg tablet 40 mg PO DAILY #30 tabs 07/21/24 10/15/24 Rx empagliflozin 25 mg tablet 25 mg PO DAILY 10/15/24 10/15/24 History (Jardiance) glimepiride 1 mg tablet 2 mg PO BID 10/15/24 10/15/24 History montelukast 10 mg tablet 10 mg PO QPM 10/15/24 10/15/24 History ifstqyhl-fb-omgrc 300 mcg-K 60 1 tablet PO DAILY 10/15/24 10/15/24 History mcg-lycop 600 mcg-lutein 300 mcg tablet (Centrum Silver Men) omeprazole 20 mg capsule,delayed 20 mg PO DAILY 10/15/24 10/15/24 History release pioglitazone 30 mg tablet 30 mg PO DAILY 10/15/24 10/15/24 History rosuvastatin 40 mg tablet 40 mg PO QPM 10/15/24 10/15/24 History topiramate 200 mg tablet 200 mg PO Q12H 10/15/24 10/15/24 History levothyroxine 88 mcg tablet 88 mcg PO DAILY 01/02/25 01/02/25 History (Levoxyl) Patient hx anesthesia problems: none Family hx anesthesia problems: none Results Review: All pre-operative results and documents have been reviewed as part of the pre-operative evaluation. [facility] Past Medical History Medical History CHF (congestive heart failure) Recurrent syncope Head trauma Hyperlipidemia Hypertension Arthritis CVA (cerebral vascular accident) Epilepsy Anxiety Depression IBS (irritable bowel syndrome) GI bleed GERD (gastroesophageal reflux disease) Sleep apnea Asthma Diabetes COPD (chronic obstructive pulmonary disease) Surgical History Surgical History History of open reduction and internal fixation (ORIF) procedure Hx of craniotomy temporal lobe resection Family History Family History Mother Hypertension Congestive heart failure Social History Social History Social History: The patient is single and never had any children. He lives alone. He is on disability. Surrogate decision maker: Sophia Pozo (mother) Smoking status: Never smoker Alcohol intake: never Substance use: never Substance use type: does not use Lack of Transportation: YES Lack of Food: Never True Current Housing: I Have Housing Concerned About Future Housing: YES Difficulty Paying Gas/Electric Bills: Decline to Answer Difficulty Paying for Meds: No Currently Unemployed: No Education: Grade School Difficulty w/ Childcare or Family Care: No Living arrangements: with family Gender identity (if verbalized by the patient): Male Sexual Orientation (if Verbalized by the Patient): Straight or Heterosexual Spiritual care concerns: No Anes - Eval Final PreProcedure Day of Procedure 01/20/25 10:22 Patient weight: obese Heart: regular rate and rhythm Lungs: clear to auscultation Airway: Mallampati scale class II Neurological: alert and oriented Last oral intake: >/= 8 hours ASA classification: III Emergent: no Anesthetic plan: proceed Anesthesia type and monitoring: general GIVS and standard monitoring Results Review: All pre-operative results and documents have been reviewed as part of the pre-operative evaluation. Informed Consent: The patient's anesthetic plan and its attendant risks and benefits were discussed with the patient/family/POA. Questions were solicited and answers provided to the satisfaction of the patient/family/POA.
[2025-01-20 10:31] VITALS: BP 144/77; PULSE 71; RESP 20; TEMP 36.4; O2SAT 100
[2025-01-20] MEDS: LACTATED RINGERS 1,000 ML 150 ML IV CONT (10:41)
--- NOTE | 2025-01-20 10:54 | PM.HPGS ---
History of Present Illness History of Present Illness Consent: Risks, benefits, and alternatives have been discussed and questions answered. Patient agrees to proceed with procedure. Chief complaint: Dysphagia, unspecified, Melena Narrative: Dennis Branch is a 59 year old male with dysphagia, here for egd Review of Systems Review of Systems: All systems reviewed & are unremarkable except as noted in HPI and below PMFSH Past Medical History Medical History CHF (congestive heart failure) Recurrent syncope Head trauma Hyperlipidemia Hypertension Arthritis CVA (cerebral vascular accident) Epilepsy Anxiety Depression IBS (irritable bowel syndrome) GI bleed GERD (gastroesophageal reflux disease) Sleep apnea Asthma Diabetes COPD (chronic obstructive pulmonary disease) Surgical History Surgical History History of open reduction and internal fixation (ORIF) procedure Hx of craniotomy temporal lobe resection Family History Family History Mother Hypertension Congestive heart failure Social History Social History Social History: The patient is single and never had any children. He lives alone. He is on disability. Surrogate decision maker: Sophai Pozo (mother) Smoking status: Never smoker Alcohol intake: never Substance use: never Substance use type: does not use Lack of Transportation: YES Lack of Food: Never True Current Housing: I Have Housing Concerned About Future Housing: YES Difficulty Paying Gas/Electric Bills: Decline to Answer Difficulty Paying for Meds: No Currently Unemployed: No Education: Grade School Difficulty w/ Childcare or Family Care: No Living arrangements: with family Gender identity (if verbalized by the patient): Male Sexual Orientation (if Verbalized by the Patient): Straight or Heterosexual Spiritual care concerns: No Meds Home Medications and Allergies Home Medications ?Medication ?Instructions ?Recorded ?Confirmed ?Type Topamax 400 mg PO DAILY 04/04/19 10/15/24 History divalproex 500 mg tablet,delayed 1,000 mg PO Q12H 04/04/19 01/20/25 History release (Depakote) albuterol sulfate 90 mcg/actuation 2 inh inhalation Q4H PRN Shortness 11/05/19 10/15/24 History aerosol inhaler Of Breath aspirin 81 mg chewable tablet 81 mg PO DAILY 11/05/19 01/20/25 History atorvastatin 10 mg tablet 10 mg PO HS 11/05/19 10/15/24 History enalapril maleate 5 mg tablet 5 mg PO DAILY 11/05/19 01/20/25 History fenofibrate 160 mg tablet 160 mg PO DAILY 11/05/19 10/15/24 History fluticasone 250 mcg-salmeterol 50 1 inh inhalation BID 11/05/19 10/15/24 History mcg/dose blistr powdr for inhalation (Advair Diskus) loratadine 10 mg tablet (Claritin) 10 mg PO DAILY PRN allergy 04/05/20 10/15/24 Rx symptoms #10 tabs promethazine 25 mg tablet 25 mg PO Q6H PRN nausea and 04/05/20 10/15/24 Rx vomiting #7 tabs ibuprofen 800 mg tablet 800 mg PO TID PRN pain #20 tabs 10/04/20 10/15/24 Rx meclizine 12.5 mg tablet 12.5 mg PO TID PRN dizziness #14 01/11/22 10/15/24 Rx tabs citalopram 40 mg tablet See Rx Instructions .Route 11/07/22 01/20/25 Rx .COMPLEX #30 tabs cyclobenzaprine 10 mg tablet See Rx Instructions .Route 03/05/23 10/15/24 Rx .COMPLEX PRN muscle spasm #60 tabs nortriptyline 75 mg capsule See Rx Instructions .Route 05/04/23 01/20/25 Rx .COMPLEX #180 caps famotidine 40 mg tablet 40 mg PO DAILY #30 tabs 07/21/24 01/20/25 Rx empagliflozin 25 mg tablet 25 mg PO DAILY 10/15/24 01/20/25 History (Jardiance) glimepiride 1 mg tablet 2 mg PO BID 10/15/24 01/20/25 History montelukast 10 mg tablet 10 mg PO QPM 10/15/24 01/20/25 History pigmwyfr-ej-knkek 300 mcg-K 60 1 tablet PO DAILY 10/15/24 01/20/25 History mcg-lycop 600 mcg-lutein 300 mcg tablet (Centrum Silver Men) omeprazole 20 mg capsule,delayed 20 mg PO DAILY 10/15/24 01/20/25 History release pioglitazone 30 mg tablet 30 mg PO DAILY 10/15/24 01/20/25 History rosuvastatin 40 mg tablet 40 mg PO QPM 10/15/24 01/20/25 History topiramate 200 mg tablet 200 mg PO Q12H 10/15/24 01/20/25 History levothyroxine 88 mcg tablet 88 mcg PO DAILY 01/02/25 01/20/25 History (Levoxyl) Allergies Allergy/AdvReac Type Severity Reaction Status Date / Time phenobarbital AdvReac Unknown Other Verified 01/20/25 10:26 Vital Signs Vital Signs - 24 hr 01/20/25 10:31 Temperature 97.5 F L Pulse Rate 71 Respiratory Rate 20 Blood Pressure 144/77 H Pulse Oximetry 100 Oxygen Delivery Room Air Exam Const: General: comfortable and no acute distress HENMT: Face/Nose/Sinus: Normal nares present Eyes: General: appearance normal, both eyes and all related structures Resp: Auscultation: clear to auscultation bilaterally Cardio: Rate: regular rate Rhythm: regular rhythm GI: Inspection: non-distended GI Palp: Yes Soft to palpation Skin: General skin exam: normal color Neuro: Speech: normal speech Extrem: General: normal to inspection Assessment and Plan Assessment and plan (1) Dysphagia: Qualifiers: Dysphagia type: esophageal phase Qualified Code(s): R13.19 - Other dysphagia Code(s): R13.10 - Dysphagia, unspecified Status: Acute Assessment and Plan: egd
[2025-01-20] MEDS: BENZOCAINE (*SP) 60 ML SPRAY CAN (HURRICAINE) 1 SPRAY MUCOUS MEM (10:57)
--- NOTE | 2025-01-20 11:03 | S_PTH ---
PATIENT: Dennis Branch LOC: [facility]#:[id number] AGE/SX: 59/M ROOM: RE01/20/[address]: Jesus Garcia MD : 1965 BED: DIS: 01/20/2025 SPEC #: [id number] RECD: 01/20/25 11:38 STATUS: GROVER REMarsha #: [id number] RAFFAELE: 01/20/25 11:[address]: Jesus Garcia DEPT: [facility] Surgical RECD BY: Kaycee Dave ENTERED: 01/20/25 11:39 SP TYPE: Surgical OTHR DR: Sergey WilsonMD Tissues: A - Gastric Biopsy B - Esophageal Biopsy Procedures: Hematoxylin and Eosin Stain Gross and Microscopic Level 4 H.Pylori
[2025-01-20 11:04] VITALS: BP 128/78; PULSE 64; RESP 14; O2SAT 100
[2025-01-20 11:14] VITALS: BP 113/74; PULSE 63; RESP 17; O2SAT 98
[2025-01-20 11:24] VITALS: BP 129/87; PULSE 63; RESP 16; O2SAT 100
== END 2025-01-20 12:18 | disposition home or self-care (01) ==
PROVIDERS: PCP Internal Medicine; Referring Provider Nurse Practitioner Family; Visit Provider Internal Medicine Gastroenterology
PROC: 0DJ08ZZ Inspection of Upper Intestinal Tract, Via Natural or Artificial Opening Endoscopic (ICD-10-PCS; CPT 43239; principal; 2025-01-20 11:45)
DX: K21.00 Gastro-esophageal reflux disease with esophagitis, without bleeding (principal); K29.50 Unspecified chronic gastritis without bleeding; B96.81 Helicobacter pylori [H. pylori] as the cause of diseases classified elsewhere; I11.0 Hypertensive heart disease with heart failure; I50.9 Heart failure, unspecified; E78.5 Hyperlipidemia, unspecified; K58.9 Irritable bowel syndrome, unspecified; K21.9 Gastro-esophageal reflux disease without esophagitis; E11.9 Type 2 diabetes mellitus without complications; J44.9 Chronic obstructive pulmonary disease, unspecified; G40.909 Epilepsy, unspecified, not intractable, without status epilepticus; F41.9 Anxiety disorder, unspecified; F32.A Depression, unspecified; G47.30 Sleep apnea, unspecified; M19.90 Unspecified osteoarthritis, unspecified site; E66.9 Obesity, unspecified; Z68.33 Body mass index [BMI] 33.0-33.9, adult; Z79.51 Long term (current) use of inhaled steroids; Z79.82 Long term (current) use of aspirin; Z79.1 Long term (current) use of non-steroidal anti-inflammatories (NSAID); Z79.84 Long term (current) use of oral hypoglycemic drugs; Z98.890 Other specified postprocedural states; Z82.49 Family history of ischemic heart disease and other diseases of the circulatory system
CPT/HCPCS: 43239; 43450; 82948; 88305; 88342; J2003; J2704; J7120

== ENCOUNTER 2025-01-28 16:37 | Emergency (ER) | payer MEDICARE, MEDICAID, SELFPAY ==
--- OUTSIDE RECORDS SUMMARY | 2025-01-23 15:14 | XMS_ITS | Continuity of Care Document ---
Author Organization [facility] Address [address] [place] [address] Phone Care Team Providers Care Spot Sprayer Name Role Phone Breanna GONZALEZ, FACC, FSCAI, Asim Unavailable U navailable Allergies, Adverse Reactions, Alerts Substance Reaction Status Criticality carbamazepine Active No Information Medications Medication Instructions Dosage Effective Dates (start - stop) Status Comments nortriptyline 75 mg capsule TAKE 1 CAPSULE BY MOUTH TWICE DAILY - Active furosemide 20 mg tablet take 1 tablet by oral route every day 20 MG - Active famotidine 40 mg tablet - Active divalproex ER 500 mg tablet,extended release 24 [...] tablet TAKE 1 TABLET BY MOUTH DAILY - Active acetaminophen 300 mg-codeine 30 mg tablet TAKE 1 TABLET BY MOUTH 2-3 TIMES DAILY NEEDED MUST LAST 21 DAYS - Active glimepiride 1 mg tablet TAKE 2 TABLETS BY MOUTH TWICE DAILY DIRECTED - Active fenofibrate 160 mg tablet - Active Jardiance 25 mg tablet - Act madi pioglitazone 30 mg tablet TAKE 1 TABLET BY MOUTH IN THE MORNING - Active ergocalciferol (vitamin D2) 1,250 mcg (50,000 unit) capsule TAKE 1 CAPSULE BY MOUTH EVERY WEEK - Active citalopram 40 mg tablet - Active topiramate 200 mg tablet - Active benzonatate 100 mg capsule TAKE 1 CAPSULE BY MOUTH EVERY 8 HOURS NEEDED - Active prednisone 20 mg tablet TAKE 1 TABLET BY MOUTH DAILY FOR 5 DAYS - Active nortriptyline 75 mg capsule TAKE 1 CAPSULE BY MOUTH TWICE DAILY - No Longer Active Procedures Procedure Date ILR DEVICE INTERROGAT REMOTE ILR DEVICE INTERROGAT REMOTE Complex e/m visit add on OFFICE/OUTPATIENT VISIT, EST ELECTROCARDIOGRAM, COMPLETE ILR DEVICE INTERROGAT REMOTE Advance Directives Directive Yes / No Effective Date File Name No Information Encounters Encounter Description Practice Location Reason(s) For Visit Diagnoses Date Provider Providers Copied on Encounter [facility], [address] [place] [address], [id number] , tel: [phone] [facility] No Information 5 Breanna Dailey. [address] [place] [address], [id number] , . tel: [phone] [facility], [address] [place] [address], [id number] , tel: [phone] [facility] [place] [facility] of other cardiac implants and grafts 5 Breanna Dailey. [address] [place] [address], [id number] , . tel: [phone] Referring Provider: Asim Carlos, [address] [place], [place] [address], [place], [address] . tel:[phone] [facility], [address] [place] [address], [id number] , tel: [phone] [facility] [place] [facility] of other cardiac implants and grafts 5 [facility] Asim. [address] [place], [place], [id number] , . tel: [phone] Referring Provider: Asim Carlos, [address], [place], [address] . tel:[phone] OFFICE/OUTPA TIENT VISIT, EST [facility], [address] [place] [address], [id number] , tel: [phone] [facility] [place] Follow Up of Cardiology exam (chief complaint)N umbness in feet (chief complaint)P assing out (chief complaint)s welling in legs (chief complaint)b listers teresa legs (chief complaint) Essential (primary) hypertensionHyperli pidemiaBenign prostatic hyperplasia w/o lower urinary tract symptomVitamin D deficiencyGeneraliz ed hyperhidrosisFamily history of ischemic cardiac diseaseTobacco use disorder, severeAbnormal EKGSyncope and collapse 5 [facility]. [address], [id number] , . tel: [phone] Referring Provider: Asim Carlos, [address], [place], [address] . tel:[phone] [facility] , [address] [place] [address], [id number] , tel: [phone] [facility] No Information [facility]. [address], [id number] , . tel: [phone] [facility], [address] [place] [address], [id number] , tel: [phone] [facility] [place] [facility] of other cardiac implants and grafts 5 [facility]. [address], [place], [id number] , . tel: [phone] Referring Provider: Asim Carlos, [address], [place], [address] . tel:[phone] Family History Family Member Type Diagnosis Age At Onset No Information Payers Payer name Insurance type Covered libertarian ID Monique mei(s) [facility] [address] [id number] PPO C MYRON [id number] [facility] [id number] Social History Type Description Quantity Date Captured Comments Sex Male Smoking Status No Information Chief Complaint And Reason For Visit No Information Reason For Referral Reason For Referral No Information Plan Of Treatment Date Type Action Status Future Order: Lab Order BMP ([id number]), Ordered on: Ordered Future Order: Radiology Order LO OP IMPLANT ([id number]), Ordered on: Ordered History Of Present Illness [...]
--- NOTE | ~2025-01-28 | XR_ITS ---
EXAMINATION: XR femur RT min 2V DATE: 01/28/2025 18:13 INDICATION: Right femoral pain post ground level fall TECHNIQUE: AP and lateral views of the right femur were obtained on overlapping proximal and distal images. COMPARISON: None. FINDINGS: Bone alignment is normal. No fracture. Mild right hip osteoarthritis with small marginal osteophyte along the inferior medial aspect of the femoral head and prominent marginal osteophyte along the superolateral rim of the acetabulum. There is decreased anterosuperior femoral head/neck offset which could predispose towards cam-type femoral acetabular impingement. Right knee joint spaces appear normal with no knee joint effusion. Soft tissues are unremarkable. IMPRESSION: 1. Mild osteoarthritis at the right hip. No acute osseous abnormality. Reviewed, dictated and finalized at location A.
[2025-01-28 16:39] VITALS: BP 128/82; PULSE 85; RESP 16; TEMP 36.6; O2SAT 100
--- OUTSIDE RECORDS SUMMARY | 2025-01-28 16:42 | XMS_ITS | Clinical Summary ---
Author Organization [facility] Address [address] [place] [address] Care Team Providers Care Agricultural Service Worker Name Role Phone None, Provider MD Primary [...] complete this topic Insurance MEDICARE [facility] MEDICAID Care Teams Agricultural Service Worker Relationship Specialty Start Date End Date None, Provider, MD PCP - General UNKNOWN PHYSICIAN SPECIALTY 09/01/23
--- OUTSIDE RECORDS SUMMARY | 2025-01-28 16:42 | XMS_ITS | Clinical Summary ---
Author Organization [facility] Address [address] [place] [address] Phone Care Team Providers Care Hot Mill Operator Name Role Phone Sergey Wilson MD Primary Care Provider [phone] Allergies No known active allergies Medications divalproex [...] after that. 20 Tablet 04/18/2021 9:21 PM LAND DEVELOPMENT PROJECT MANAGER 04/18/2021 Active doxycycline hyclate (VIBRAMYCIN) 100 mg tablet Take 1 Tablet (100 mg) by mouth 2 times daily. 14 Tablet 04/18/2021 9:21 PM LAND DEVELOPMENT PROJECT MANAGER 04/18/2021 Active Social History Tobacco Use Types Packs/Day Years Used Date Smoking Tobacco: Former Smokeless Tobacco: Never Sex and Gender Information Value Date Recorded Sex Assigned at Not on file Legal Sex Male 3:08 PM LAND DEVELOPMENT PROJECT MANAGER Gender Identity Not on file Sexual Orientation Not on file Last Filed Vital Signs Vital Sign Reading Time Taken Comments Blood Pressure 113/75 04/18/2021 8:00 PM LAND DEVELOPMENT PROJECT MANAGER Pulse 78 04/18/2021 8:00 PM LAND DEVELOPMENT PROJECT MANAGER Temperature 36.9 C (98.4 F) 04/18/2021 3:26 PM LAND DEVELOPMENT PROJECT MANAGER Respiratory Rate 18 04/18/2021 7:08 PM LAND DEVELOPMENT PROJECT MANAGER Oxygen Saturation 95% 04/18/2021 8:00 PM LAND DEVELOPMENT PROJECT MANAGER Inhaled Oxygen Concentration - - Weight 104.3 kg (230 lb) 04/18/2021 3:26 PM LAND DEVELOPMENT PROJECT MANAGER Height 177.8 cm (5' 10) 04/18/2021 3:26 PM LAND DEVELOPMENT PROJECT MANAGER Body Mass Index 33 04/18/2021 3:26 PM LAND DEVELOPMENT PROJECT MANAGER Plan of Treatment Health Maintenance Due [...] Part D Address: AJ TA Care Teams Hot Mill Operator Relationship Specialty [place] [address] [place] [id number] PCP - General Internal Medicine 04/18/21
--- OUTSIDE RECORDS SUMMARY | 2025-01-28 16:42 | XMS_ITS | Encounter Summary ---
Author Organization [facility] Address [address] [place] [address] Phone Care Team Providers Care Engraver Jewelry Name Role Phone Sergey Wilson MD Primary Care Provider [phone] Reason for Visit * Reason Comments Med Refill Encounter Details Date Type Department Care Team (Late st Contact Info) Description 09/09/2024 Telephone [facility] Medicine Epilepsy [address] [facility] Advanced Medicine 6th [place] [address] [place] [address] Cilfton Jose MD PhD [address] [place] [address] Med Refill Social History Tobacco Use Types Packs/Day Years Used Date Smoking Tobacco: Former Cigarettes 1.3 52.7 S tarted: 1973 Smokeless Tobacco: Never Alcohol Use Standard Drinks/Week Comments No 0 (1 standard drink = 0.6 oz pur e alcohol) Sex and Gender Information Value Date Recorded Sex Assigned at Not on file 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 SHOWROOM MANAGER Gender Identity Not on file Sexual [...] documented as of this encounter Care Teams Engraver Jewelry Relationship Specialty Start Date End Date Sergey Wilson MD PCP - General 09/20/16 documented as of this encounter
--- OUTSIDE RECORDS SUMMARY | 2025-01-28 16:42 | XMS_ITS | Clinical Summary ---
Author Organization [facility] Address [address] [place] [address] Care Team Providers Care Emergency Generator Mechanic Name Role Phone Sergey Wilson MD Primary Care Provider [phone] Allergies Active Allergy Reactions Criticality Noted Date [...] 1 tablet (50 mcg total) by mouth breastfeeding educator before breakfast Active montelukast (SINGULAIR) 10 mg [...] CAPSULE 0 Active cyanocobalamin/ folic acid (vitamin Y14-lwzon acid) 2,500-400 mcg tablet,disinteg rating 0 Active [...] AMYGDALOHIPPOCAMPECTOMY Craniotomy For Amygdalohippocampectomy - (Added by Taste Guru Conv) CARDIAC PACEMAKER PLACEMENT Pacemaker Placement - (Added by Kloudless) LOOP ELECTROSURGICAL EXCISIO N PROCEDURE 07/12/2023 [facility] Medical History Medical History Date Comments Reflux esophagitis Chronic Reflu x Esophagitis - (Added by TW Conv) Personal history of other di seases of the circulatory system History of hypertension - (A dded by Kloudless) Personal history of other me ntal and behavioral disorders History of depression - (Add ed by Taste Guru Conv) Anxiety disorder Anxiety - (Adde d by TW Conv) Personal history of other di seases of the respiratory system Personal history of asthma - (Added by Taste Guru Conv) Asthma Hypertension Seizures (HCC) Diabetes (HCC) 06/05/2019 Family History Medical History Relation Name Comments Brain cancer Brother Brain tumor - ( Added by Taste Guru Conv) Diabetes Brother Cancer Father Diabetes Sister [...] on file 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 73 m2 [facility] Comment: Interpretive Data Reference Interval Normal [...] PhD LAB BLOOD ORDERABLES Adeline miller Result [facility] Department [place] [address] from Last 3 Months or Most Recently Relevant to Health Maintenance Insurance [facility] MEDICARE [facility] MEDICARE Address: [address] [address] [place] [address] [facility] MEDICARE ADVANTAGE [facility] MEDICARE Address: [facility] [address] [place] [address] [facility] MEDICARE ADVANTAGE [facility] MEDICARE Address: [address] [address] [place] [address] IDPA Advance Directives For more information, please contact: [phone] * Full Code (Latest Code Status on File) Date Activated Date Inactivated Comments 08/17/2021 7:34 AM 08/19/2021 10:29 PM * Full Code Date Activated Date Inactivated Comments 07/20/2020 10:14 AM 07/26/2020 7:25 PM * Full Code Date Activated Date Inactivated Comments 06/06/2019 2:57 AM 06/08/2019 2:23 AM Care Teams Emergency Generator Mechanic Relationship Specialty Start Date End Date Sergey Wilson MD PCP - General 09/20/16
--- OUTSIDE RECORDS SUMMARY | 2025-01-28 16:42 | XMS_ITS | Clinical Summary ---
Author Organization [facility] Address [address] [place] [address] Care Team Providers Care Lockstitch Front Edge Tape Sewer Name Role Phone Sergey Wilson MD Primary Care Provider Source Comments [facility],non[facility] Affiliates and Associated Physician Practices is amultiple site organization consisting of ambulatory clinics and hospital sitesin [place], [place], [place] and [place]. This disclosure is being madepursuant to the Care Everywhere program and may not contain all information available regarding this patient. Last updated 18.[facility]who Allergies Active Allergy Reactions Criticality Noted Date [...] CDT Gender Identity Male 05/25/2021 9:36 PM BUSINESS SYSTEMS ARCHITECT Sexual Orientation Not on file Last Filed Vital Signs Vital Sign Reading Time Taken Comments Blood Pressure 99/48 06/02/2021 7:32 PM BUSINESS SYSTEMS ARCHITECT Pulse 82 06/02/2021 7:32 PM BUSINESS SYSTEMS ARCHITECT Temperature 37.2 C (99 F) 06/02/2021 7:32 PM BUSINESS SYSTEMS ARCHITECT Respiratory Rate 16 06/02/2021 7:32 PM BUSINESS SYSTEMS ARCHITECT Oxygen Saturation 98% 06/02/2021 7:32 PM BUSINESS SYSTEMS ARCHITECT Inhaled Oxygen Concentration - - Weight 104.3 kg (230 lb) 06/02/2021 7:32 PM BUSINESS SYSTEMS ARCHITECT Height 177.8 cm (5' 10) 06/02/2021 7:32 PM BUSINESS SYSTEMS ARCHITECT Body Mass Index 33 06/02/2021 7:32 PM BUSINESS SYSTEMS ARCHITECT Plan of Treatment Health Maintenance Due Date [...] 02/23/2014 ZOSTER VACCINE (1 of 2) 02/23/2014 DEPRESSION SCREENING 05/14/2024 COVID-19 VACCINE ( - season) 2025 05/13/2021, 08/14/2020, 07/17/2020 INFLUENZA VACCINE (#1) 2025 , 02/25/2020, 02/18/2020, [...] complete this topic Insurance MEDICAID - [place] [facility] MANAGED MEDICARE [facility] [facility] MANAGED MEDICARE ADV SELF PAY NO INSURANCE Member Subscriber Plan / Payer (Ef fective for All Dates) Name:Reji Munoz Member ID:Not on file Relation to Subscriber:Not on file Name:REJI MUNOZ Subscriber ID:Not on file (Home) Address: [address] [place] [id number] Payer ID:Not on file Group ID:Not on file Type:Self Pay Address: [place], [place] [facility] MANAGED MEDICARE [facility] MEDICAID - OUT OF STATE Care Teams Lockstitch Front Edge Tape Sewer Relationship Specialty Start Date End Date Sergey Wilson MD PCP - General Internal Medicine 09/25/20
[2025-01-28 17:50] VITALS: BP 103/59; PULSE 86; RESP 19; TEMP 36.4; O2SAT 99
--- NOTE | 2025-01-28 17:50 | ED.LOWEXIN ---
HPI - Extremity Injury (Lower) General Chief Complaint: Extremity Injury, Lower Stated Complaint: GLF Time Seen by Provider: 01/28/25 17:50 Source: patient Mode of arrival: ambulatory Limitations: no limitations History of Present Illness HPI Narrative: Dennis is a 59-year-old male patient presenting to the clinic today with complaints of ground level fall after tripping injuring the right upper leg. He has point tenderness over the right anterior lateral femur. Denies any loss of consciousness or hitting his head at the time of his fall. Denies any other concerns at this time. Related Data Home Medications ?Medication ?Instructions ?Recorded ?Confirmed ?Last Taken ?Type Topamax 400 mg PO DAILY 04/04/19 10/15/24 11/05/19 History divalproex 500 mg tablet,delayed 1,000 mg PO Q12H 04/04/19 01/20/25 01/20/25 07:00 History release (Depakote) albuterol sulfate 90 mcg/actuation 2 inh inhalation Q4H PRN Shortness 11/05/19 10/15/24 11/05/19 History aerosol inhaler Of Breath aspirin 81 mg chewable tablet 81 mg PO DAILY 11/05/19 01/20/25 01/19/25 History atorvastatin 10 mg tablet 10 mg PO HS 11/05/19 10/15/24 11/04/19 History enalapril maleate 5 mg tablet 5 mg PO DAILY 11/05/19 01/20/25 01/19/25 History fenofibrate 160 mg tablet 160 mg PO DAILY 11/05/19 10/15/24 11/05/19 History fluticasone 250 mcg-salmeterol 50 1 inh inhalation BID 11/05/19 10/15/24 11/05/19 History mcg/dose blistr powdr for inhalation (Advair Diskus) empagliflozin 25 mg tablet 25 mg PO DAILY 10/15/24 01/20/25 01/19/25 History (Jardiance) glimepiride 1 mg tablet 2 mg PO BID 10/15/24 01/20/25 01/19/25 History montelukast 10 mg tablet 10 mg PO QPM 10/15/24 01/20/25 01/19/25 History pfunundn-qj-iuohp 300 mcg-K 60 1 tablet PO DAILY 10/15/24 01/20/2525 History mcg-lycop 600 mcg-lutein 300 mcg tablet (Ramirez Sam) omeprazole 20 mg capsule,delayed 20 mg PO DAILY 10/15/24 01/20/25 01/19/25 History release pioglitazone 30 mg tablet 30 mg PO DAILY 10/15/24 01/20/25 01/19/25 History rosuvastatin 40 mg tablet 40 mg PO QPM 10/15/24 01/20/25 01/19/25 History topiramate 200 mg tablet 200 mg PO Q12H 10/15/24 01/20/25 01/20/25 07:00 History levothyroxine 88 mcg tablet 88 mcg PO DAILY 01/02/25 01/20/25 01/19/25 History (Levoxyl) Allergies Allergy/AdvReac Type Severity Reaction Status Date / Time phenobarbital AdvReac Unknown Other Verified 01/28/25 16:40 Review of Systems Review of Systems: Pertinent positives per HPI. Patient denies any fever, chills, rash, headache, visual changes, dizziness, cough, runny nose, sore throat, shortness of breath, chest pain, palpitations, nausea, vomiting, diarrhea, constipation, abdominal pain, or any urinary issues. [facility] Past Medical History Medical History CHF (congestive heart failure) Recurrent syncope Head trauma Hyperlipidemia Hypertension Arthritis CVA (cerebral vascular accident) Epilepsy Anxiety Depression IBS (irritable bowel syndrome) GI bleed GERD (gastroesophageal reflux disease) Sleep apnea Asthma Diabetes COPD (chronic obstructive pulmonary disease) Surgical History Surgical History History of open reduction and internal fixation (ORIF) procedure Hx of craniotomy temporal lobe resection Family History Family History Mother Hypertension Congestive heart failure Social History Social History Social History: The patient is single and never had any children. He lives alone. He is on disability. Surrogate decision maker: Sophia Pozo (mother) Smoking status: Never smoker Alcohol intake: never Substance use: never Substance use type: does not use Lack of Transportation: YES Lack of Food: Never True Current Housing: I Have Housing Concerned About Future Housing: YES Difficulty Paying Gas/Electric Bills: Decline to Answer Difficulty Paying for Meds: No Currently Unemployed: No Education: Grade School Difficulty w/ Childcare or Family Care: No Living arrangements: with family Gender identity (if verbalized by the patient): Male Sexual Orientation (if Verbalized by the Patient): Straight or Heterosexual Spiritual care concerns: No Comments At the time of my signature, I reviewed and agree with the nursing past medical, surgical, social, and family history. There is no relevant family history pertinent to the patient complaint. Exam Narrative: General: Well-developed, well nourished, in no apparent distress Head: Normocephalic, atraumatic. Cardio: Regular rate and rhythm, s1 and s2 normal, no murmur appreciated. Resp: Clear to auscultation bilaterally, no rhonchi, rales, wheezing or rubs. Musculoskeletal: No deformity, no bruising or swelling noted, tender to palpation over the right upper anterior lateral femur, grossly normal range of motion, muscle strength strong and equal, peripheral pulse strong, no edema, no cyanosis, normal gait and station Course Course Emergency Course: Portions of this record may have been created with voice recognition software. Vital Signs Vital signs: Vital Signs Temperature 36.6 C 01/28/25 16:39 Pulse Rate 85 01/28/25 16:39 Respiratory Rate 16 01/28/25 16:39 Blood Pressure 128/82 01/28/25 16:39 Pulse Oximetry 100 01/28/25 16:39 Oxygen Delivery Room Air 01/28/25 16:39 Temperature 36.4 C 01/28/25 17:50 Pulse Rate 86 01/28/25 17:50 Respiratory Rate 19 01/28/25 17:50 Blood Pressure 103/59 L 01/28/25 17:50 Pulse Oximetry 99 01/28/25 17:50 Oxygen Delivery Room Air 01/28/25 17:50 Vital signs reviewed MDM - Extremity Injury (Lower) MDM Narrative Medical decision making narrative: At the time of visit patient is resting comfortably on the exam table. Patient appears to be nontoxic. Complaints of ground level fall injuring the right upper leg. He has point tenderness over the right anterior lateral femur. Denies any loss of consciousness or hitting his head at the time of his fall. Denies any other concerns at this time. Diagnostics: X-ray of the right femur was ordered and was negative for any acute fracture. Does show mild osteoarthritis of the right hip. Plan: I suspect patient has acute right lower leg pain due to ground level fall. Supportive measures were discussed with the patient and they voiced understanding discharge instructions and agrees to treatment plan. Return precautions reviewed Differential Diagnosis Differential diagnosis: Likely fracture of femur and other (Contusion, soft tissue injury, ground level fall) Imaging Data Radiologist's impression: ITS Impressions Femur X-Ray 01/28/25 18:50 IMPRESSION: 1. Mild osteoarthritis at the right hip. No acute osseous abnormality. Discharge Plan Discharge Clinical Impression: Acute pain of right lower extremity, Fall Patient Disposition: Home Condition: Stable Instructions: Antibiotic Form, Leg Pain (ED) Additional Instructions: X-rays negative for any sign of fracture or malalignment of the right femur Rest, ice, and elevate Tylenol/motrin for pain as discussed. Gradually bear weight Follow up with your PCP if symptoms persist more than 1 week. Patient Language: Mauritian Prescriptions: No Action famotidine 40 mg tablet 40 mg PO DAILY Qty: 30 3RF loratadine [Claritin] 10 mg tablet 10 mg PO DAILY PRN (Reason: allergy symptoms) Qty: 10 0RF promethazine 25 mg tablet 25 mg PO Q6H PRN (Reason: nausea and vomiting) Qty: 7 0RF ibuprofen 800 mg tablet 800 mg PO TID PRN (Reason: pain) Qty: 20 0RF meclizine 12.5 mg tablet 12.5 mg PO TID PRN (Reason: dizziness) Qty: 14 0RF divalproex [Depakote] 500 mg Tablet,Delayed Release (Dr/Ec) 1,000 mg PO Q12H Topamax 400 mg PO DAILY fluticasone propion-salmeterol [Advair Diskus] 250-50 mcg/dose blister with device 1 inh INHALATION BID enalapril maleate 5 mg tablet 5 mg PO DAILY atorvastatin 10 mg tablet 10 mg PO HS aspirin 81 mg tablet,chewable 81 mg PO DAILY albuterol sulfate 90 mcg/actuation HFA aerosol inhaler 2 inh INHALATION Q4H PRN (Reason: Shortness Of Breath) fenofibrate 160 mg tablet 160 mg PO DAILY topiramate 200 mg tablet 200 mg PO Q12H pioglitazone 30 mg tablet 30 mg PO DAILY glimepiride 1 mg tablet 2 mg PO BID omeprazole 20 mg capsule,delayed release(DR/EC) 20 mg PO DAILY rosuvastatin 40 mg tablet 40 mg PO QPM Jardiance 25 mg tablet 25 mg PO DAILY montelukast 10 mg tablet 10 mg PO QPM Centrum Silver Men [id number] mcg tablet 1 tablet PO DAILY levothyroxine [Levoxyl] 88 mcg tablet 88 mcg PO DAILY citalopram 40 mg tablet See Rx Instructions .ROUTE .COMPLEX Qty: 30 0RF Dose Instruction: TAKE 1 TABLET(40 MG) BY MOUTH EVERY MORNING Rx Instructions: TAKE 1 TABLET(40 MG) BY MOUTH EVERY MORNING cyclobenzaprine 10 mg tablet See Rx Instructions .ROUTE .COMPLEX PRN (Reason: muscle spasm) Qty: 60 0RF Dose Instruction: TAKE 1 TABLET BY MOUTH TWICE DAILY Rx Instructions: TAKE 1 TABLET BY MOUTH TWICE DAILY PRN; nortriptyline 75 mg capsule See Rx Instructions .ROUTE .COMPLEX Qty: 180 0RF Dose Instruction: TAKE 1 CAPSULE BY MOUTH TWICE DAILY Rx Instructions: TAKE 1 CAPSULE BY MOUTH TWICE DAILY Follow-up/Referrals: Steve,MD Sergey [Primary Care Provider] Time of Disposition: 18:55 Quality NIHSS Nursing Documentation ED NIHSS nursing documentation: reviewed/agree
[2025-01-28 19:04] VITALS: BP 146/78; PULSE 82; RESP 16; TEMP 36.6; O2SAT 100
== END 2025-01-28 19:05 | disposition home or self-care (01) ==
PROVIDERS: Emergency Provider Nurse Practitioner Family; PCP Internal Medicine
DX: M79.651 Pain in right thigh (principal); I11.0 Hypertensive heart disease with heart failure; I50.9 Heart failure, unspecified; E78.5 Hyperlipidemia, unspecified; J44.9 Chronic obstructive pulmonary disease, unspecified; E11.9 Type 2 diabetes mellitus without complications; Z79.899 Other long term (current) drug therapy; Z79.82 Long term (current) use of aspirin; Z86.73 Personal history of transient ischemic attack (TIA), and cerebral infarction without residual deficits
CPT/HCPCS: 73552; 99283